=== PATIENT | male | born 1960 | race Caucasian/White ===

== ENCOUNTER 2018-05-19 22:44 | Inpatient (IN) | payer MEDICARE, OTHER ==
--- NOTE | 2018-05-20 00:07 | EDM.PDOC ---
ED HPI GENERAL MEDICAL PROBLEM - General Chief Complaint: Skin Complaint Stated Complaint: PT HAS INFECTION ON RT LEG Time Seen by Provider: 05/20/18 00:07 Source of Information: Reports: Patient - History of Present Illness INITIAL COMMENTS - FREE TEXT/NARRATIVE: HISTORY AND PHYSICAL: History of present illness: []Patient with right lower extremity cellulitis history since again with right lower cellulitis and pain foot and calf involved patient has a history of diabetes recent admission and transfer to [facility] Intermittent fever no chills sweats no chest pain shortness breath headache dizziness palpitation no bowel or urine symptoms Review of systems: As per history of present illness and below otherwise all systems reviewed and negative. Past medical history: As per history of present illness and as reviewed below otherwise noncontributory. Surgical history: As per history of present illness and as reviewed below otherwise noncontributory. Social history: No reported history of drug or alcohol abuse. Family history: As per history of present illness and as reviewed below otherwise noncontributory. Physical exam: HEENT: Atraumatic, normocephalic, pupils reactive, negative for conjunctival pallor or scleral icterus, mucous membranes moist, throat clear, neck supple, nontender, trachea midline. Lungs: Clear to auscultation, breath sounds equal bilaterally, chest nontender. Heart: S1S2, regular, negative for clicks, rubs, or JVD. Abdomen: Soft, nondistended, nontender. Negative for masses or hepatosplenomegaly. Negative for costovertebral tenderness. Pelvis: Stable nontender. Genitourinary: Deferred. Rectal: Deferred. Extremities: Atraumatic, negative for cords or calf pain. Neurovascular unremarkable. Right foot toe amputations noted, redness of the foot along with tenderness no fluctuance or exudate for culture standing up to mid tibia Neuro: Awake, alert, oriented. Cranial nerves II through XII unremarkable. Cerebellum unremarkable. Motor and sensory unremarkable throughout. Exam nonfocal. Diagnostics: []CBC CMP UA blood cultures 2 Therapeutics: []Normal saline Vancomycin 1 g IV Clindamycin 300 mg IV Impression: [] right lower extremity cellulitis chroonic history of baseline Definitive disposition and diagnosis as appropriate pending reevaluation and review of above. Right Feet Pain Score (Numeric/FACES): 9 - Related Data Allergies Allergy/AdvReac Type Severity Reaction Status Date / Time itraconazole [From Sporanox] Allergy Unknown Confusion Verified 05/19/18 23:21 levofloxacin [From Levaquin] Allergy Unknown Other Verified 05/19/18 23:21 Home Meds: Home Meds Finasteride 1 tab PO DAILY 01/11/16 [History] Fluticasone/Vilanterol [Breo Ellipta 200-25 Mcg INH] 1 inh INH DAILY 01/11/16 [ History] Gabapentin [Neurontin] 2 tab PO BID 01/11/16 [History] Testosterone [Androgel] 2 pump TOP DAILY 01/11/16 [History] predniSONE [Prednisone] 20 mg PO DAILY 01/11/16 [History] Hydrochlorothiazide 25 mg PO DAILY 01/12/16 [History] Tiotropium [place] [Spiriva Respimat] 2 puff INH BID 01/12/16 [History] Clindamycin HCl [Cleocin HCl] 150 mg PO Q6HR #132 capsule 01/15/16 [Rx] Morphine 15 mg PO Q6H PRN #10 tablet 01/15/16 [Rx] Albuterol Sulfate 2.5 mg IH DAILY 05/19/18 [History] Apixaban [Eliquis] 5 mg PO BID 05/19/18 [History] Diltiazem HCl [Diltiazem 24Hr ER] 240 mg PO DAILY 05/19/18 [History] Icosapent Ethyl [Vascepa] 1 gm PO DAILY 05/19/18 [History] Pantoprazole [ProTONIX] 40 mg PO DAILY 05/19/18 [History] Past Medical History HEENT History: Reports: Cataract Other HEENT History: dental fillings due to caries; recent tooth fracture Cardiovascular History: Reports: Afib, Cardiomyopathy, Heart Failure, Hypertension, DE Respiratory History: Reports: Asthma, Bronchitis, Recurrent, PE, Pneumonia, Recurrent, Other (See Below) Other Respiratory History: Chronic pulmonary aspergillosis, 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 bilateral achilles tendon ruptures and repair. 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 No explantation- -they apparently just treated him with IV abx for months. - Past Surgical History HEENT Surgical History: Reports: Cataract Surgery Respiratory Surgical History: Reports: Lung Resection Musculoskeletal Surgical History: Reports: Shoulder Surgery, Other (See Below) Other Musculoskeletal Surgeries/Procedures:: L shoulder Social & Family History - Family History Family Medical History: Noncontributory - Tobacco Use Smoking Status *Q: Never Smoker - Caffeine Use Caffeine Use: Reports: Coffee - Recreational Drug Use Recreational Drug Use: No - Living Situation & Occupation Living situation: Reports: Single Occupation: Disabled ED ROS GENERAL - Review of Systems Review Of Systems: See Below ED EXAM, SKIN/RASH Exam: See Below Course - Vital Signs Last Recorded V/S: Last Vital Signs Temp 99.8 F 05/19/18 23:17 Pulse 104 H 05/19/18 23:17 Resp 22 H 05/19/18 23:17 BP 139/76 05/19/18 23:17 Pulse Ox 97 05/19/18 23:17 - Orders/Labs/Meds Orders: Active Orders 24 hr Category Date Time Status Chest 1V Frontal [CR] Stat Exams 05/20/18 00:50 Taken CULTURE BLOOD [BC] Stat Lab 05/20/18 00:25 Results CULTURE BLOOD [BC] Stat Lab 05/20/18 00:35 Received Sodium Chloride 0.9% [Normal Saline] 1,000 ml Med 05/20/18 01:30 Ordered IV STAT Blood Culture x2 Reflex Set [OM.PC] Stat Oth 05/20/18 00:06 Ordered Medication Orders Sodium Chloride (Normal Saline) 1,000 mls @ 125 mls/hr IV STAT DANIELITO Labs: Laboratory Tests 05/20/18 05/20/18 05/20/18 Range/Units 00:05 00:35 00:35 WBC 18.06 H (4.0-11.0) K/uL RBC 3.96 L (4.50-5.90) M/uL Hgb 10.9 L (13.0-17.0) g/dL Hct 37.0 L (38.0-50.0) % MCV 93.4 (80.0-98.0) fL MCH 27.5 (27.0-32.0) pg MCHC 29.5 L (31.0-37.0) g/dL RDW Std Deviation 55.6 (28.0-62.0) fl RDW Coeff of Tre 17 H (11.0-15.0) % Plt Count 284 (150-400) K/uL MPV 9.70 (7.40-12.00) fL Add Manual Diff YES Neutrophils % (Manual) 89 H (48.0-80.0) % Band Neutrophils % 1 % Lymphocytes % (Manual) 6 L (16.0-40.0) % Monocytes % (Manual) 4 (0.0-15.0) % Absolute Seg Neuts 16.1 H (1.4-5.7) Band Neutrophils # 0.2 Lymphocytes # (Manual) 1.1 (0.6-2.4) Monocytes # (Manual) 0.7 (0.0-0.8) Sodium 136 (136-148) mmol/L Potassium 4.7 (3.5-5.1) mmol/L Chloride 97 L (98-107) mmol/L Carbon Dioxide 29.3 (21.0-32.0) mmol/L BUN 30 H (7.0-18.0) mg/dL Creatinine 1.7 H (0.8-1.3) mg/dL Est Cr Clr Drug Dosing 39.66 mL/min Estimated GFR (MDRD) 41.6 ml/min Glucose 93 (74-106) mg/dL Calcium 9.3 (8.5-10.1) mg/dL Total Bilirubin 0.6 (0.2-1.0) mg/dL AST 19 (15-37) IU/L ALT 56 (14-63) IU/L Alkaline Phosphatase 62 (46-116) U/L Total Protein 7.5 (6.4-8.2) g/dL Albumin 2.7 L (3.4-5.0) g/dL Globulin 4.8 H (2.6-4.0) g/dL Albumin/Globulin Ratio 0.6 L (0.9-1.6) Urine Color YELLOW Urine Appearance CLEAR Urine pH 8.5 H (5.0-8.0) Ur Specific [place] 1.010 (1.001-1.035) Urine Protein 30 H (NEGATIVE) mg/dL Urine Glucose (UA) 100 H (NEGATIVE) mg/dL Urine Ketones NEGATIVE (NEGATIVE) mg/dL Urine Occult Blood NEGATIVE (NEGATIVE) Urine Nitrite NEGATIVE (NEGATIVE) Urine Bilirubin NEGATIVE (NEGATIVE) Urine Urobilinogen 2.0 H (<2.0) EU/dL Ur Leukocyte Esterase NEGATIVE (NEGATIVE) Urine RBC 0-2 (0-2/HPF) Urine WBC 0-2 (0-5/HPF) Ur Epithelial Cells RARE (NONE-FEW) Urine Bacteria FEW (NEGATIVE) Meds: Medications Generic Name Dose Route Start Last Admin Trade Name Freq PRN Reason Stop Dose Admin Sodium Chloride 1,000 mls @ 125 mls/hr 05/20/18 01:30 Normal Saline IV STAT DANIELITO Discontinued Medications Generic Name Dose Route Start Last Admin Trade Name Freq PRN Reason Stop Dose Admin Clindamycin Phosphate 300 mg/ 50 mls @ 150 mls/hr 05/20/18 00:09 05/20/18 00: 36 Premix IV 05/20/18 00:28 150 mls/hr ONETIME ONE Administration Vancomycin HCl 1 gm/ Sodium 250 mls @ 250 mls/hr 05/20/18 00:09 05/20/18 00: 59 Chloride IV 05/20/18 01:08 250 mls/hr ONETIME ONE Administration Morphine Sulfate 2 mg 05/20/18 00:09 05/20/18 00:35 Morphine IVPUSH 05/20/18 00:10 2 mg ONETIME ONE Administration Departure - Departure Time of Disposition: 01:22 Disposition: Admitted As Inpatient 66 Condition: Fair Clinical Impression: Cellulitis - Discharge Information Referrals: Connor Melchor MD [Primary Care Provider] - Forms: ED Department Discharge - My Orders Last 24 Hours: My Active Orders 05/20/18 00:06 Blood Culture x2 Reflex Set [OM.PC] Stat 05/20/18 00:25 CULTURE BLOOD [BC] Stat 05/20/18 00:35 CULTURE BLOOD [BC] Stat 05/20/18 00:50 Chest 1V Frontal [CR] Stat 05/20/18 01:30 Sodium Chloride 0.9% [Normal Saline] 1,000 ml IV STAT - Assessment/Plan Last 24 Hours: My Active Orders 05/20/18 00:06 Blood Culture x2 Reflex Set [OM.PC] Stat 05/20/18 00:25 CULTURE BLOOD [BC] Stat 05/20/18 00:35 CULTURE BLOOD [BC] Stat 05/20/18 00:50 Chest 1V Frontal [CR] Stat 05/20/18 01:30 Sodium Chloride 0.9% [Normal Saline] 1,000 ml IV STAT
[2018-05-20] MEDS ORDERED: Clindamycin Phosphate in D5W 300 MG in Premix Bag 1 BAG IV ONE ×2 (00:09)
[2018-05-20] MEDS ORDERED: Morphine 2 MG/ML Syringe IVPUSH ONE (00:09)
[2018-05-20] MEDS ORDERED: Sodium Chloride 0.9% 1,000 ML IV SCH (01:30)
[2018-05-20] MEDS ORDERED: Acetaminophen 500 MG Tab PO STA (01:48)
[2018-05-20] MEDS ORDERED: Acetaminophen 325 MG Tab PO ONE (01:49)
[2018-05-20] MEDS ORDERED: Acetaminophen 325 MG Tab PO PRN (02:37)
[2018-05-20] MEDS: Sodium Chloride 0.9% 1,000 ML IV SCH ×2 (03:03→22:40)
[2018-05-20] MEDS: oxyCODONE 5 MG Tab PO PRN ×3 (03:04→16:13)
[2018-05-20] MEDS: Morphine 2 MG/ML Syringe IVPUSH PRN ×3 (03:05→17:41)
[2018-05-20] MEDS ORDERED: Insulin Aspart 100 Units/ML 3 ML Pen SUBCUT SCH (07:30)
--- NOTE | 2018-05-20 07:51 | PCM.HP ---
H&P History of Present Illness - General Date of Service: 05/20/18 Admit Problem/Dx: Admission Diagnosis/Problem Admission Diagnosis/Problem Cellulitis Source of Information: Patient History Limitations: Reports: No Limitations - History of Present Illness Initial Comments - Free Text/Narative: The patient is a 58-year-old gentleman who had presented to the emergency department early this morning secondary to pain and increased swelling of his right foot due to infection. The patient had an evaluation by his primary care physician had been placed on clindamycin and started taking this yesterday. The patient is a medically complex individual who has been taking steroids for at least 40 years secondary to aspergillosis. The patient also has a history of partial pneumonectomy. The patient says that he has had several toes on his right foot amputated secondary to infection and ischemia. He has an appointment with podiatry next week. The patient has denied any fever or chills. The patient has said that he thinks the infection is secondary to chemicals he has been exposed to while working. He has no other complaints at the present time. Onset of Symptoms: Reports: Gradual Duration of Symptoms: Reports: Day(s):, Getting Worse Location: Reports: Lower Extremity, Right Quality: Reports: Stabbing, Throbbing Improves with: Reports: Rest Worsens with: Reports: Movement Associated Symptoms: Reports: No Other Symptoms Right Feet Pain Score (Numeric/FACES): 8 Right Foot Pain Score (Numeric/FACES): 6 - Related Data Allergies/Adverse Reactions: Allergies Allergy/AdvReac Type Severity Reaction Status Date / Time itraconazole [From Sporanox] Allergy Unknown Confusion Verified 05/19/18 23:21 levofloxacin [From Levaquin] Allergy Unknown Other Verified 05/19/18 23:21 Home Medications: Home Meds Finasteride 5 mg PO DAILY 01/11/16 [History] Fluticasone/Vilanterol [Breo Ellipta 200-25 Mcg INH] 1 inh INH DAILY 01/11/16 [ History] Gabapentin [Neurontin] 1,600 mg PO BID 01/11/16 [History] Testosterone [Androgel] 4 pump TOP DAILY 01/11/16 [History] predniSONE [Prednisone] 20 mg PO DAILY 01/11/16 [History] Tiotropium Russell [Spiriva Respimat] 2 puff INH BID 01/12/16 [History] Morphine 15 mg PO Q6H PRN #10 tablet 01/15/16 [Rx] Albuterol Sulfate 2.5 mg IH DAILY 05/19/18 [History] Apixaban [Eliquis] 5 mg PO BID 05/19/18 [History] Diltiazem HCl [Diltiazem 24Hr ER] 240 mg PO DAILY 05/19/18 [History] Icosapent Ethyl [Vascepa] 1 gm PO DAILY 05/19/18 [History] Pantoprazole [ProTONIX] 40 mg PO DAILY 05/19/18 [History] Clindamycin HCl 300 mg PO Q8H 05/20/18 [History] Metoprolol Tartrate 50 mg PO BID 05/20/18 [History] Midodrine 2.5 mg PO BID 05/20/18 [History] traZODone HCl [Trazodone HCl] 50 mg PO BEDTIME 05/20/18 [History] Past Medical History HEENT History: Reports: Cataract Other HEENT History: dental fillings due to caries; recent tooth fracture Cardiovascular History: Reports: Afib, Cardiomyopathy, Heart Failure, Hypertension, MT Respiratory History: Reports: Asthma, Bronchitis, Recurrent, PE, Pneumonia, Recurrent, Other (See Below) Other Respiratory History: Chronic pulmonary aspergillosis, 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 bilateral achilles tendon ruptures and repair. 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 No explantation- -they apparently just treated him with IV abx for months. - Past Surgical History HEENT Surgical History: Reports: Cataract Surgery Respiratory Surgical History: Reports: Lung Resection Other Respiratory Surgeries/Procedures: intubated last Feb 2018 and transfered to [place] Musculoskeletal Surgical History: Reports: Shoulder Surgery, Other (See Below) ( Right toe amputation) Other Musculoskeletal Surgeries/Procedures:: L shoulder and left hip surgery Social & Family History - Family History Family Medical History: Noncontributory - Tobacco Use Smoking Status *Q: Never Smoker Second Hand Smoke Exposure: No - Caffeine Use Caffeine Use: Reports: Coffee - Alcohol Use Date of Last Drink: 05/04/18 - Recreational Drug Use Recreational Drug Use: No - Living Situation & Occupation Living situation: Reports: Single Occupation: Disabled H&P Review of Systems - Review of Systems: Review Of Systems: See Below General: Reports: No Symptoms HEENT: Reports: No Symptoms Pulmonary: Reports: No Symptoms Cardiovascular: Reports: No Symptoms Gastrointestinal: Reports: No Symptoms Genitourinary: Reports: No Symptoms Musculoskeletal: Reports: Foot Pain Skin: Reports: Erythema Psychiatric: Reports: No Symptoms Neurological: Reports: No Symptoms Hematologic/Lymphatic: Reports: No Symptoms Immunologic: Reports: No Symptoms Exam - Exam Exam: See Below - Vital Signs Vital Signs: Last Vital Signs Temp 36.6 C 05/20/18 04:50 Pulse 93 05/20/18 04:50 Resp 20 05/20/18 04:50 BP 90/50 L 05/20/18 04:50 Pulse Ox 97 05/20/18 04:50 Weight: 68.1 kg - Exam Quality Assessment: No: Supplemental Oxygen General: Alert (Appears older than stated age), Oriented, Cooperative, Mild Distress HEENT: Conjunctiva Clear, EACs Clear, Hearing Intact, Nares Patent, Normal Nasal Septum, PERRLA. No: Mucosa Moist & [place] (dry) Neck: Supple, Trachea Midline Lungs: Clear to Auscultation, Normal Respiratory Effort Cardiovascular: Regular Rate, Regular Rhythm GI/Abdominal Exam: Normal Bowel Sounds, Soft, Non-Tender, No Distention, No Mass (Male) Exam: Deferred Rectal (Males) Exam: Deferred Back Exam: Normal Inspection, Full Range of Motion Extremities: No Pedal Edema. No: Normal Inspection (Missing first and second toe right foot) Skin: Warm, Dry, Other (Cellulitis right foot ) Neurological: Cranial Nerves Intact Neuro Extensive - Mental Status: Alert Psychiatric: Alert, Normal Affect, Normal Mood - Patient Data Lab Results Last 24 hrs: Laboratory Results - last 24 hr 05/20/18 05/20/18 05/20/18 Range/Units 00:05 00:35 00:35 WBC 18.06 H (4.0-11.0) K/uL RBC 3.96 L (4.50-5.90) M/uL Hgb 10.9 L (13.0-17.0) g/dL Hct 37.0 L (38.0-50.0) % MCV 93.4 (80.0-98.0) fL MCH 27.5 (27.0-32.0) pg MCHC 29.5 L (31.0-37.0) g/dL RDW Std Deviation 55.6 (28.0-62.0) fl RDW Coeff of Tre 17 H (11.0-15.0) % Plt Count 284 (150-400) K/uL MPV 9.70 (7.40-12.00) fL Add Manual Diff YES Neutrophils % (Manual) 89 H (48.0-80.0) % Band Neutrophils % 1 % Lymphocytes % (Manual) 6 L (16.0-40.0) % Monocytes % (Manual) 4 (0.0-15.0) % Eosinophils % (Manual) (0.0-7.0) % Nucleated RBC % /100WBC Absolute Seg Neuts 16.1 H (1.4-5.7) Band Neutrophils # 0.2 Lymphocytes # (Manual) 1.1 (0.6-2.4) Monocytes # (Manual) 0.7 (0.0-0.8) Eosinophils # (Manual) (0.0-0.7) Nucleated RBCs # K/uL Sodium 136 (136-148) mmol/L Potassium 4.7 (3.5-5.1) mmol/L Chloride 97 L (98-107) mmol/L Carbon Dioxide 29.3 (21.0-32.0) mmol/L BUN 30 H (7.0-18.0) mg/dL Creatinine 1.7 H (0.8-1.3) mg/dL Est Cr Clr Drug Dosing 39.66 mL/min Estimated GFR (MDRD) 41.6 ml/min Glucose 93 (74-106) mg/dL Calcium 9.3 (8.5-10.1) mg/dL Total Bilirubin 0.6 (0.2-1.0) mg/dL AST 19 (15-37) IU/L ALT 56 (14-63) IU/L Alkaline Phosphatase 62 (46-116) U/L C-Reactive Protein (0.00-0.90) mg/dL Total Protein 7.5 (6.4-8.2) g/dL Albumin 2.7 L (3.4-5.0) g/dL Globulin 4.8 H (2.6-4.0) g/dL Albumin/Globulin Ratio 0.6 L (0.9-1.6) Urine Color YELLOW Urine Appearance CLEAR Urine pH 8.5 H (5.0-8.0) Ur Specific [place] 1.010 (1.001-1.035) Urine Protein 30 H (NEGATIVE) mg/dL Urine Glucose (UA) 100 H (NEGATIVE) mg/dL Urine Ketones NEGATIVE (NEGATIVE) mg/dL Urine Occult Blood NEGATIVE (NEGATIVE) Urine Nitrite NEGATIVE (NEGATIVE) Urine Bilirubin NEGATIVE (NEGATIVE) Urine Urobilinogen 2.0 H (<2.0) EU/dL Ur Leukocyte Esterase NEGATIVE (NEGATIVE) Urine RBC 0-2 (0-2/HPF) Urine WBC 0-2 (0-5/HPF) Ur Epithelial Cells RARE (NONE-FEW) Urine Bacteria FEW (NEGATIVE) 05/20/18 05/20/18 Range/Units 06:25 06:25 WBC 16.94 H (4.0-11.0) K/uL RBC 3.46 L (4.50-5.90) M/uL Hgb 9.3 L (13.0-17.0) g/dL Hct 31.1 L (38.0-50.0) % MCV 89.9 (80.0-98.0) fL MCH 26.9 L (27.0-32.0) pg MCHC 29.9 L (31.0-37.0) g/dL RDW Std Deviation 55.3 (28.0-62.0) fl RDW Coeff of Tre 17 H (11.0-15.0) % Plt Count 188 (150-400) K/uL MPV 9.60 (7.40-12.00) fL Add Manual Diff YES Neutrophils % (Manual) 77 (48.0-80.0) % Band Neutrophils % 5 % Lymphocytes % (Manual) 10 L (16.0-40.0) % Monocytes % (Manual) 7 (0.0-15.0) % Eosinophils % (Manual) 1 (0.0-7.0) % Nucleated RBC % 0.0 /100WBC Absolute Seg Neuts 13.0 H (1.4-5.7) Band Neutrophils # 0.8 Lymphocytes # (Manual) 1.7 (0.6-2.4) Monocytes # (Manual) 1.2 H (0.0-0.8) Eosinophils # (Manual) 0.2 (0.0-0.7) Nucleated RBCs # 0 K/uL Sodium 137 (136-148) mmol/L Potassium 3.8 (3.5-5.1) mmol/L Chloride 101 (98-107) mmol/L Carbon Dioxide 30.4 (21.0-32.0) mmol/L BUN 29 H (7.0-18.0) mg/dL Creatinine 1.7 H (0.8-1.3) mg/dL Est Cr Clr Drug Dosing 39.66 mL/min Estimated GFR (MDRD) 41.6 ml/min Glucose 98 (74-106) mg/dL Calcium 8.2 L (8.5-10.1) mg/dL Total Bilirubin 0.7 (0.2-1.0) mg/dL AST 21 (15-37) IU/L ALT 43 (14-63) IU/L Alkaline Phosphatase 48 (46-116) U/L C-Reactive Protein 55.50 H (0.00-0.90) mg/dL Total Protein 6.0 L (6.4-8.2) g/dL Albumin 2.1 L (3.4-5.0) g/dL Globulin 3.9 (2.6-4.0) g/dL Albumin/Globulin Ratio 0.5 L (0.9-1.6) Urine Color Urine Appearance Urine pH (5.0-8.0) Ur Specific [place] (1.001-1.035) Urine Protein (NEGATIVE) mg/dL Urine Glucose (UA) (NEGATIVE) mg/dL Urine Ketones (NEGATIVE) mg/dL Urine Occult Blood (NEGATIVE) Urine Nitrite (NEGATIVE) Urine Bilirubin (NEGATIVE) Urine Urobilinogen (<2.0) EU/dL Ur Leukocyte Esterase (NEGATIVE) Urine RBC (0-2/HPF) Urine WBC (0-5/HPF) Ur Epithelial Cells (NONE-FEW) Urine Bacteria (NEGATIVE) Result Diagrams: 05/20/18 06:25 05/20/18 06:25 Steve Results Last 24 hrs: Microbiology 05/20/18 00:25 Anaerobic Blood Culture - Final Blood - Venous - Problem List (1) Cellulitis and abscess of foot SNOMED Code(s): 420348310, 514913601 ICD Code: L03.119 - CELLULITIS OF UNSPECIFIED PART OF LIMB; L02.619 - CUTANEOUS ABSCESS OF UNSPECIFIED FOOT Status: Acute Priority: High Current Visit: Yes (2) Cardiomyopathy SNOMED Code(s): 00818378 ICD Code: I42.9 - CARDIOMYOPATHY, UNSPECIFIED Status: Chronic Priority: High Current Visit: Yes Qualifiers: Cardiomyopathy type: unspecified Qualified Code(s): I42.9 - Cardiomyopathy , unspecified (3) CKD (chronic kidney disease) SNOMED Code(s): 176743523 ICD Code: N18.9 - CHRONIC KIDNEY DISEASE, UNSPECIFIED Status: Chronic Priority: High Current Visit: Yes Qualifiers: Chronic kidney disease stage: stage 3 (moderate) Qualified Code(s): N18.3 - Chronic kidney disease, stage 3 (moderate) (4) Steroid-induced osteoporosis SNOMED Code(s): 234146094 ICD Code: T38.0X1A - POISONING BY GLUCOCORT/SYNTH ANALOG, ACCIDENTAL, INIT; M81.8 - OTHER OSTEOPOROSIS WITHOUT CURRENT PATHOLOGICAL FRACTURE Status: Chronic Priority: High Current Visit: Yes (5) History of aspergillosis SNOMED Code(s): 693551840 ICD Code: Z86.19 - PERSONAL HISTORY OF OTHER INFECTIOUS AND PARASITIC DISEASES Status: Chronic Priority: High Current Visit: Yes Problem List Initiated/Reviewed/Updated: Yes Orders Last 24hrs: Active Orders 24 hr Category Date Time Status Admission Status [Patient Status] [ADT] Stat ADT 05/20/18 01:23 Active [employer] Diet [DIET] Diet 05/20/18 Breakfast Active Chest 1V Frontal [CR] Stat Exams 05/20/18 00:50 Taken CULTURE BLOOD [BC] Stat Lab 05/20/18 00:25 Results CULTURE BLOOD [BC] Stat Lab 05/20/18 00:35 Received VANCOMYCIN TROUGH [CHEM] Timed Lab 05/22/18 05:30 Ordered Acetaminophen [Tylenol] Med 05/20/18 02:37 Active 650 mg PO Q6H PRN Insulin Aspart [NovoLOG] Med 05/20/18 07:30 Active See Protocol SUBCUT ACBED Morphine Med 05/20/18 02:37 Active 2 mg IVPUSH Q2H PRN Pharmacy to Dose - Vancomycin Med 05/20/18 02:45 Pending 1 dose .XX ASDIRECTED Sodium Chloride 0.9% [Normal Saline] 1,000 ml Med 05/20/18 02:45 Active IV ASDIRECTED Vancomycin [Vancocin] 1 gm Med 05/20/18 18:00 Active Sodium Chloride 0.9% [Normal Saline] 250 ml IV Q12H oxyCODONE Med 05/20/18 02:37 Active 5 mg PO Q4H PRN Blood Culture x2 Reflex Set [OM.PC] Stat Oth 05/20/18 00:06 Ordered Medication Orders Acetaminophen (Tylenol) 650 mg PO Q6H PRN PRN Reason: Pain Sodium Chloride (Normal Saline) 1,000 mls @ 50 mls/hr IV ASDIRECTED DANIELITO Last Admin: 05/20/18 03:03 Dose: 50 mls/hr Vancomycin HCl 1 gm/ Sodium (Chloride) 250 mls @ 166 mls/hr IV Q12H DANIELITO Insulin Aspart (Novolog) 0 unit SUBCUT ACBED DANIELITO; Protocol Morphine Sulfate (Morphine) 2 mg IVPUSH Q2H PRN PRN Reason: Pain (severe 7-10) Last Admin: 05/20/18 03:05 Dose: 2 mg Oxycodone HCl (Oxycodone) 5 mg PO Q4H PRN PRN Reason: Pain (moderate 4-6) Last Admin: 05/20/18 03:04 Dose: 5 mg Vancomycin HCl (Pharmacy To Dose - Vancomycin) 1 dose .XX ASDIRECTED [facility] Assessment/Plan Comment:: The patient is a medically complex 58-year-old gentleman who had been admitted to acute hospitalization secondary to cellulitis of his right foot. The area of infection has been demarcated and it appears to be improving. The patient will be continued on his renal dose of IV antibiotics consisting of clindamycin and vancomycin. The patient does have a history of chronic kidney disease and this apparently has been stable and therefore his medications will be renally dosed. The patient will also be kept on telemetry secondary to his history of cardiomyopathy. The patient has been taking steroids for a considerable time and his steroids can be likely contributing to his cardiomyopathy as well as the osteoporosis. The patient will need to have close follow-up with primary care physician for this. Patient should be appropriate for discharge in 1-2 days after IV antibiotics. We'll wait for resolution of the patient's leukocytosis as well.
[2018-05-20] MEDS ORDERED: Morphine 15 MG Tab PO PRN (08:05)
[2018-05-20] MEDS: Insulin Aspart 100 Units/ML 3 ML Pen SUBCUT SCH ×4 (08:56→21:20)
[2018-05-20] MEDS: Diltiazem 120 MG Cap.CD PO SCH (08:58)
[2018-05-20] MEDS ORDERED: Albuterol 0.083% 2.5 MG/3 ML Neb Soln INH SCH ×3 (09:00→21:00)
[2018-05-20] MEDS ORDERED: Hydrochlorothiazide 25 MG Tab PO SCH (09:00)
[2018-05-20] MEDS: Fish Oil/Omega-3 Fatty Acids 1 Gm Cap PO SCH (09:18)
[2018-05-20] MEDS: Pantoprazole 40 MG Tab.CR PO SCH (09:19)
[2018-05-20] MEDS: predniSONE 20 MG Tab PO SCH (09:19)
[2018-05-20] MEDS: Apixaban 5 MG Tab PO SCH ×2 (09:19→21:26)
[2018-05-20] MEDS: Finasteride 5 MG Tab PO SCH (09:19)
[2018-05-20] MEDS: Gabapentin 800 MG Tab PO SCH ×2 (09:34→21:25)
[2018-05-20] MEDS: SPIRIVA RESPIMAT INH SCH (12:00)
[2018-05-20] MEDS: VILANTEROL INH SCH (12:00)
[2018-05-20] MEDS: [UNRECOGNIZED DRUG - OTHER] INH SCH (12:00)
[2018-05-20] MEDS: Metoprolol Tartrate 50 MG Tab PO SCH ×2 (14:02→21:26)
[2018-05-20] MEDS: Midodrine 5 MG Tab PO SCH ×2 (14:03→21:19)
[2018-05-20] MEDS: Clindamycin Phosphate in D5W 300 MG in Premix Bag 1 BAG IV SCH ×4 (14:03→20:05)
[2018-05-20] MEDS: Albuterol 0.083% 2.5 MG/3 ML Neb Soln NEB SCH (21:08)
[2018-05-20] MEDS: traZODone 50 MG Tab PO SCH (21:26)
[2018-05-21] MEDS: oxyCODONE 5 MG Tab PO PRN ×4 (02:46→22:47)
[2018-05-21] MEDS: Morphine 2 MG/ML Syringe IVPUSH PRN ×7 (02:47→22:48)
[2018-05-21] MEDS: Clindamycin Phosphate in D5W 300 MG in Premix Bag 1 BAG IV SCH ×6 (04:17→20:46)
[2018-05-21 08:18] LABS: CHLORIDE,CL 107 mmol/L (98-107); SODIUM,NA 143 mmol/L (136-148)
[2018-05-21] MEDS: Pantoprazole 40 MG Tab.CR PO SCH (08:47)
[2018-05-21] MEDS: Fish Oil/Omega-3 Fatty Acids 1 Gm Cap PO SCH (08:47)
[2018-05-21] MEDS: predniSONE 20 MG Tab PO SCH (08:48)
[2018-05-21] MEDS: Finasteride 5 MG Tab PO SCH (08:48)
[2018-05-21] MEDS: Diltiazem 120 MG Cap.CD PO SCH (08:48)
[2018-05-21] MEDS: Gabapentin 800 MG Tab PO SCH ×2 (08:48→20:40)
[2018-05-21] MEDS: Metoprolol Tartrate 50 MG Tab PO SCH ×2 (08:48→20:40)
[2018-05-21] MEDS: Apixaban 5 MG Tab PO SCH ×2 (08:48→20:41)
[2018-05-21] MEDS: [UNRECOGNIZED DRUG - OTHER] INH SCH (08:49)
[2018-05-21] MEDS: VILANTEROL INH SCH (08:49)
[2018-05-21] MEDS: SPIRIVA RESPIMAT INH SCH (08:49)
[2018-05-21] MEDS: Albuterol 0.083% 2.5 MG/3 ML Neb Soln NEB SCH ×2 (08:55→13:32)
[2018-05-21] MEDS: Insulin Aspart 100 Units/ML 3 ML Pen SUBCUT SCH ×4 (09:05→20:47)
[2018-05-21] MEDS: Midodrine 5 MG Tab PO SCH ×3 (09:16→15:05)
[2018-05-21 10:22] LABS: HEMOGLOBIN A1C 6.8 % (4.5-6.2)
--- NOTE | 2018-05-21 11:34 | PCM.PN ---
<To Ordonez - Last Filed: 05/21/18 11:43> - General Info Date of Service: 05/21/18 Subjective Update: No acute events overnight. Afebrile. Tolerating PO intake. Pain under control. Denies chest pain, dyspnea, abdominal pain. - Patient Data Vitals - Most Recent: Last Vital Signs Temp 36.8 C 05/21/18 11:10 Pulse 89 05/21/18 11:10 Resp 20 05/21/18 11:10 BP 94/61 05/21/18 11:10 Pulse Ox 92 L 05/21/18 11:10 Weight - Most Recent: 68.2 kg I&O - Last 24 Hours: Intake & Output 05/20/18 05/21/18 05/21/18 22:59 06:59 14:59 Intake Total 1180 1644 Output Total 510 750 Balance 670 894 Lab Results Last 24 Hours: Laboratory Results - last 24 hr 05/20/18 05/20/18 05/20/18 Range/Units 14:02 17:30 21:10 WBC (4.0-11.0) K/uL RBC (4.50-5.90) M/uL Hgb (13.0-17.0) g/dL Hct (38.0-50.0) % MCV (80.0-98.0) fL MCH (27.0-32.0) pg MCHC (31.0-37.0) g/dL RDW Std Deviation (28.0-62.0) fl RDW Coeff of Tre (11.0-15.0) % Plt Count (150-400) K/uL MPV (7.40-12.00) fL Neut % (Auto) (48.0-80.0) % Lymph % (Auto) (16.0-40.0) % Frio % (Auto) (0.0-15.0) % Eos % (Auto) (0.0-7.0) % Baso % (Auto) (0.0-1.5) % Neut # (Auto) (1.4-5.7) K/uL Lymph # (Auto) (0.6-2.4) K/uL Frio # (Auto) (0.0-0.8) K/uL Eos # (Auto) (0.0-0.7) K/uL Baso # (Auto) (0.0-0.1) K/uL Nucleated RBC % /100WBC Nucleated RBCs # K/uL Absolute Retic (20-80) K/uL Percent Retic (0.5-1.5) % Immature Retic Fraction % Sodium (136-148) mmol/L Potassium (3.5-5.1) mmol/L Chloride (98-107) mmol/L Carbon Dioxide (21.0-32.0) mmol/L BUN (7.0-18.0) mg/dL Creatinine (0.8-1.3) mg/dL Est Cr Clr Drug Dosing mL/min Estimated GFR (MDRD) ml/min Glucose (74-106) mg/dL POC Glucose 198 H 267 H 127 H (60-110) mg/dL Hemoglobin A1c (4.5-6.2) % Calcium (8.5-10.1) mg/dL Phosphorus (2.6-4.7) mg/dL Magnesium (1.8-2.4) mg/dL Iron (50-175) ug/dL TIBC (250-450) ug/dL % Saturation (20-55) % Ferritin (26-388) ng/mL Total Bilirubin (0.2-1.0) mg/dL AST (15-37) IU/L ALT (14-63) IU/L Alkaline Phosphatase (46-116) U/L Total Protein (6.4-8.2) g/dL Albumin (3.4-5.0) g/dL Globulin (2.6-4.0) g/dL Albumin/Globulin Ratio (0.9-1.6) 05/21/18 05/21/18 05/21/18 Range/Units 07:45 07:45 07:45 WBC (4.0-11.0) K/uL RBC 3.22 L (4.50-5.90) M/uL Hgb (13.0-17.0) g/dL Hct (38.0-50.0) % MCV (80.0-98.0) fL MCH (27.0-32.0) pg MCHC (31.0-37.0) g/dL RDW Std Deviation (28.0-62.0) fl RDW Coeff of Tre (11.0-15.0) % Plt Count (150-400) K/uL MPV (7.40-12.00) fL Neut % (Auto) (48.0-80.0) % Lymph % (Auto) (16.0-40.0) % Frio % (Auto) (0.0-15.0) % Eos % (Auto) (0.0-7.0) % Baso % (Auto) (0.0-1.5) % Neut # (Auto) (1.4-5.7) K/uL Lymph # (Auto) (0.6-2.4) K/uL Frio # (Auto) (0.0-0.8) K/uL Eos # (Auto) (0.0-0.7) K/uL Baso # (Auto) (0.0-0.1) K/uL Nucleated RBC % /100WBC Nucleated RBCs # K/uL Absolute Retic 67.30 (20-80) K/uL Percent Retic 2.1 H (0.5-1.5) % Immature Retic Fraction 17 % Sodium (136-148) mmol/L Potassium (3.5-5.1) mmol/L Chloride (98-107) mmol/L Carbon Dioxide (21.0-32.0) mmol/L BUN (7.0-18.0) mg/dL Creatinine (0.8-1.3) mg/dL Est Cr Clr Drug Dosing mL/min Estimated GFR (MDRD) ml/min Glucose (74-106) mg/dL POC Glucose (60-110) mg/dL Hemoglobin A1c 6.8 H (4.5-6.2) % Calcium (8.5-10.1) mg/dL Phosphorus (2.6-4.7) mg/dL Magnesium (1.8-2.4) mg/dL Iron 12 L (50-175) ug/dL TIBC 240 L (250-450) ug/dL % Saturation 5.00 L (20-55) % Ferritin 161 (26-388) ng/mL Total Bilirubin (0.2-1.0) mg/dL AST (15-37) IU/L ALT (14-63) IU/L Alkaline Phosphatase (46-116) U/L Total Protein (6.4-8.2) g/dL Albumin (3.4-5.0) g/dL Globulin (2.6-4.0) g/dL Albumin/Globulin Ratio (0.9-1.6) 05/21/18 05/21/18 05/21/18 Range/Units 07:45 07:46 07:46 WBC 11.51 H (4.0-11.0) K/uL RBC 3.27 L (4.50-5.90) M/uL Hgb 8.7 L (13.0-17.0) g/dL Hct 29.4 L (38.0-50.0) % MCV 89.9 (80.0-98.0) fL MCH 26.6 L (27.0-32.0) pg MCHC 29.6 L (31.0-37.0) g/dL RDW Std Deviation 55.4 (28.0-62.0) fl RDW Coeff of Tre 17 H (11.0-15.0) % Plt Count 191 (150-400) K/uL MPV 8.80 (7.40-12.00) fL Neut % (Auto) 81.1 H (48.0-80.0) % Lymph % (Auto) 9.7 L (16.0-40.0) % Frio % (Auto) 8.3 (0.0-15.0) % Eos % (Auto) 0.8 (0.0-7.0) % Baso % (Auto) 0.1 (0.0-1.5) % Neut # (Auto) 9.3 H (1.4-5.7) K/uL Lymph # (Auto) 1.1 (0.6-2.4) K/uL Frio # (Auto) 1.0 H (0.0-0.8) K/uL Eos # (Auto) 0.1 (0.0-0.7) K/uL Baso # (Auto) 0.0 (0.0-0.1) K/uL Nucleated RBC % 0.0 /100WBC Nucleated RBCs # 0 K/uL Absolute Retic (20-80) K/uL Percent Retic (0.5-1.5) % Immature Retic Fraction % Sodium 143 (136-148) mmol/L Potassium 4.5 (3.5-5.1) mmol/L Chloride 107 (98-107) mmol/L Carbon Dioxide 31.4 (21.0-32.0) mmol/L BUN 21 H (7.0-18.0) mg/dL Creatinine 1.2 (0.8-1.3) mg/dL Est Cr Clr Drug Dosing 56.19 mL/min Estimated GFR (MDRD) > 60.0 ml/min Glucose 94 (74-106) mg/dL POC Glucose (60-110) mg/dL Hemoglobin A1c (4.5-6.2) % Calcium 8.3 L (8.5-10.1) mg/dL Phosphorus 3.2 (2.6-4.7) mg/dL Magnesium 1.8 (1.8-2.4) mg/dL Iron (50-175) ug/dL TIBC (250-450) ug/dL % Saturation (20-55) % Ferritin (26-388) ng/mL Total Bilirubin 0.4 (0.2-1.0) mg/dL AST 12 L (15-37) IU/L ALT 34 (14-63) IU/L Alkaline Phosphatase 56 (46-116) U/L Total Protein 5.8 L (6.4-8.2) g/dL Albumin 1.9 L (3.4-5.0) g/dL Globulin 3.9 (2.6-4.0) g/dL Albumin/Globulin Ratio 0.5 L (0.9-1.6) 05/21/18 Range/Units 08:57 WBC (4.0-11.0) K/uL RBC (4.50-5.90) M/uL Hgb (13.0-17.0) g/dL Hct (38.0-50.0) % MCV (80.0-98.0) fL MCH (27.0-32.0) pg MCHC (31.0-37.0) g/dL RDW Std Deviation (28.0-62.0) fl RDW Coeff of Tre (11.0-15.0) % Plt Count (150-400) K/uL MPV (7.40-12.00) fL Neut % (Auto) (48.0-80.0) % Lymph % (Auto) (16.0-40.0) % Frio % (Auto) (0.0-15.0) % Eos % (Auto) (0.0-7.0) % Baso % (Auto) (0.0-1.5) % Neut # (Auto) (1.4-5.7) K/uL Lymph # (Auto) (0.6-2.4) K/uL Frio # (Auto) (0.0-0.8) K/uL Eos # (Auto) (0.0-0.7) K/uL Baso # (Auto) (0.0-0.1) K/uL Nucleated RBC % /100WBC Nucleated RBCs # K/uL Absolute Retic (20-80) K/uL Percent Retic (0.5-1.5) % Immature Retic Fraction % Sodium (136-148) mmol/L Potassium (3.5-5.1) mmol/L Chloride (98-107) mmol/L Carbon Dioxide (21.0-32.0) mmol/L BUN (7.0-18.0) mg/dL Creatinine (0.8-1.3) mg/dL Est Cr Clr Drug Dosing mL/min Estimated GFR (MDRD) ml/min Glucose (74-106) mg/dL POC Glucose 86 (60-110) mg/dL Hemoglobin A1c (4.5-6.2) % Calcium (8.5-10.1) mg/dL Phosphorus (2.6-4.7) mg/dL Magnesium (1.8-2.4) mg/dL Iron (50-175) ug/dL TIBC (250-450) ug/dL % Saturation (20-55) % Ferritin (26-388) ng/mL Total Bilirubin (0.2-1.0) mg/dL AST (15-37) IU/L ALT (14-63) IU/L Alkaline Phosphatase (46-116) U/L Total Protein (6.4-8.2) g/dL Albumin (3.4-5.0) g/dL Globulin (2.6-4.0) g/dL Albumin/Globulin Ratio (0.9-1.6) Steve Results Last 24 Hours: Microbiology 05/20/18 00:25 Aerobic Blood Culture - Preliminary Blood - Venous NO GROWTH AFTER 1 DAY Anaerobic Blood Culture - Final 05/20/18 00:35 Aerobic Blood Culture - Preliminary Blood - Venous - Lab Draw NO GROWTH AFTER 1 DAY Anaerobic Blood Culture - Preliminary NO GROWTH AFTER 1 DAY Med Orders - Current: Current Medications Acetaminophen (Tylenol) 650 mg PO Q6H PRN PRN Reason: Pain Albuterol (Proventil Neb Soln) 2.5 mg NEB TIDRT [facility] Last Admin: 05/21/18 08:55 Dose: Not Given Apixaban (Eliquis) 5 mg PO BID [facility] Last Admin: 05/21/18 08:48 Dose: 5 mg Diltiazem HCl (Cardizem Cd) 240 mg PO DAILY [facility] Last Admin: 05/21/18 08:48 Dose: 240 mg Finasteride (Proscar) 5 mg PO DAILY [facility] Last Admin: 05/21/18 08:48 Dose: 5 mg Fish Oil (Fish Oil) 1 gm PO DAILY [facility] Last Admin: 05/21/18 08:47 Dose: 1 gm Gabapentin (Neurontin) 1,600 mg PO BID [facility] Last Admin: 05/21/18 08:48 Dose: 1,600 mg Sodium Chloride (Normal Saline) 1,000 mls @ 50 mls/hr IV ASDIRECTED [facility] Last Admin: 05/20/18 22:40 Dose: 50 mls/hr Vancomycin HCl 1 gm/ Sodium (Chloride) 250 mls @ 166 mls/hr IV Q12H [facility] Last Admin: 05/21/18 05:22 Dose: 166 mls/hr Clindamycin Phosphate 300 mg/ (Premix) 50 mls @ 150 mls/hr IV Q8H [facility] Last Admin: 05/21/18 04:17 Dose: 150 mls/hr Insulin Aspart (Novolog) 0 unit SUBCUT ACBED [facility]; Protocol Last Admin: 05/21/18 09:05 Dose: Not Given Metoprolol Tartrate (Lopressor) 50 mg PO BID [facility] Last Admin: 05/21/18 08:48 Dose: 50 mg Midodrine (Midodrine) 2.5 mg PO BID@08,14 [facility] Last Admin: 05/21/18 11:15 Dose: 2.5 mg Morphine Sulfate (Morphine) 2 mg IVPUSH Q2H PRN PRN Reason: Pain (severe 7-10) Last Admin: 05/21/18 11:02 Dose: 2 mg Morphine Sulfate (Morphine) 15 mg PO Q6H PRN PRN Reason: Pain Oxycodone HCl (Oxycodone) 5 mg PO Q4H PRN PRN Reason: Pain (moderate 4-6) Last Admin: 05/21/18 11:06 Dose: 5 mg Pantoprazole Sodium (Protonix) 40 mg PO ACBREAKFAST [facility] Last Admin: 05/21/18 08:47 Dose: 40 mg Breo Fluticasone/ (Vilanterol) 1 each INH DAILY [facility] Last Admin: 05/21/18 08:49 Dose: 1 each Spiriva Respimat 2 each INH DAILY [facility] Last Admin: 05/21/18 08:49 Dose: 2 each Prednisone (Prednisone) 20 mg PO DAILY [facility] Last Admin: 05/21/18 08:48 Dose: 20 mg Trazodone HCl (Trazodone) 50 mg PO BEDTIME [facility] Last Admin: 05/20/18 21:26 Dose: 50 mg Vancomycin HCl (Pharmacy To Dose - Vancomycin) 1 dose .XX ASDIRECTED [facility] Discontinued Medications Acetaminophen (Tylenol Extra Strength) 1,000 mg PO BEDTIME STA Stop: 05/20/18 01:49 Last Admin: 05/20/18 01:51 Dose: Not Given Acetaminophen (Tylenol) 650 mg PO NOW ONE Stop: 05/20/18 01:50 Last Admin: 05/20/18 01:53 Dose: 650 mg Albuterol (Proventil Neb Soln) 2.5 mg INH DAILY [facility] Last Admin: 05/20/18 09:57 Dose: 2.5 mg Albuterol (Proventil Neb Soln) 2.5 mg INH TID [facility] Last Admin: 05/20/18 14:10 Dose: 2.5 mg Albuterol (Proventil Neb Soln) 2.5 mg INH TIDRT [facility] Hydrochlorothiazide (Hydrochlorothiazide) 25 mg PO DAILY [facility] Last Admin: 05/20/18 09:26 Dose: Not Given Clindamycin Phosphate 300 mg/ (Premix) 50 mls @ 150 mls/hr IV ONETIME ONE Stop: 05/20/18 00:28 Last Admin: 05/20/18 00:36 Dose: 150 mls/hr Vancomycin HCl 1 gm/ Sodium (Chloride) 250 mls @ 250 mls/hr IV ONETIME ONE Stop: 05/20/18 01:08 Last Admin: 05/20/18 00:59 Dose: 250 mls/hr Sodium Chloride (Normal Saline) 1,000 mls @ 125 mls/hr IV STAT [facility] Last Admin: 05/20/18 01:43 Dose: 125 mls/hr Vancomycin HCl 1 gm/ Sodium (Chloride) 250 mls @ 166 mls/hr IV ONETIME ONE Stop: 05/20/18 04:30 Last Admin: 05/20/18 03:06 Dose: 166 mls/hr Insulin Aspart (Novolog) 0 unit SUBCUT ACBREAKFASTANDBED [facility]; Protocol Midodrine (Midodrine) 2.5 mg PO BID [facility] Last Admin: 05/21/18 09:16 Dose: Not Given Morphine Sulfate (Morphine) 2 mg IVPUSH ONETIME ONE Stop: 05/20/18 00:10 Last Admin: 05/20/18 00:35 Dose: 2 mg - Exam General: Alert, Oriented, Cooperative, No Acute Distress Lungs: Clear to Auscultation, Normal Respiratory Effort Cardiovascular: Regular Rate, Regular Rhythm GI/Abdominal Exam: Normal Bowel Sounds, Soft, Non-Tender, No Distention Extremities: Other (Right ankle cellulitis remains within drawn borders.) - Problem List Review Problem List Initiated/Reviewed/Updated: Yes - My Orders Last 24 Hours: My Active Orders 05/21/18 11:30 Fecal Occult Blood Collection [RC] ASDIRECTED - Plan Plan:: A: 1. Right foot cellulitis 2. Iron deficiency anemia 3. Acute on chronic kidney disease 4. Diabetes mellitus type 2 P: 1. Right foot cellulitis, improving. Continue with vancomycin. Will transition to PO tomorrow. 2. Iron deficiency anemia. Likely his CKD is contributing to his anemia. Will start Iron supplementation. Ordered Fecal occult test. 3. Acute on chronic kidney disease, improving. Continue to monitor. 4. Diabetes mellitus type 2. Will need outpatient follow-up. Possibly start metformin pending how his kidney function is doing. Dispo: 1-2 days. <Claudy Bo - Last Filed: 05/21/18 13:42> - General Info Admission Dx/Problem (Free Text): I have seen and examined patient independently of ophthalmic medical technologist. I have discussed the case with with the resident. I agree with the assessment and plan of care with this patient. Please discharge order. - Patient Data Vitals - Most Recent: Last Vital Signs Temp 36.8 C 05/21/18 11:10 Pulse 89 05/21/18 11:10 Resp 20 05/21/18 11:10 BP 94/61 05/21/18 11:10 Pulse Ox 92 L 05/21/18 11:10 I&O - Last 24 Hours: Intake & Output 05/20/18 05/21/18 05/21/18 22:59 06:59 14:59 Intake Total 1180 1644 Output Total 510 750 Balance 670 894 Lab Results Last 24 Hours: Laboratory Results - last 24 hr 05/20/18 05/20/18 05/20/18 Range/Units 14:02 17:30 21:10 WBC (4.0-11.0) K/uL RBC (4.50-5.90) M/uL Hgb (13.0-17.0) g/dL Hct (38.0-50.0) % MCV (80.0-98.0) fL MCH (27.0-32.0) pg MCHC (31.0-37.0) g/dL RDW Std Deviation (28.0-62.0) fl RDW Coeff of Tre (11.0-15.0) % Plt Count (150-400) K/uL MPV (7.40-12.00) fL Neut % (Auto) (48.0-80.0) % Lymph % (Auto) (16.0-40.0) % Frio % (Auto) (0.0-15.0) % Eos % (Auto) (0.0-7.0) % Baso % (Auto) (0.0-1.5) % Neut # (Auto) (1.4-5.7) K/uL Lymph # (Auto) (0.6-2.4) K/uL Frio # (Auto) (0.0-0.8) K/uL Eos # (Auto) (0.0-0.7) K/uL Baso # (Auto) (0.0-0.1) K/uL Nucleated RBC % /100WBC Nucleated RBCs # K/uL Absolute Retic (20-80) K/uL Percent Retic (0.5-1.5) % Immature Retic Fraction % Sodium (136-148) mmol/L Potassium (3.5-5.1) mmol/L Chloride (98-107) mmol/L Carbon Dioxide (21.0-32.0) mmol/L BUN (7.0-18.0) mg/dL Creatinine (0.8-1.3) mg/dL Est Cr Clr Drug Dosing mL/min Estimated GFR (MDRD) ml/min Glucose (74-106) mg/dL POC Glucose 198 H 267 H 127 H (60-110) mg/dL Hemoglobin A1c (4.5-6.2) % Calcium (8.5-10.1) mg/dL Phosphorus (2.6-4.7) mg/dL Magnesium (1.8-2.4) mg/dL Iron (50-175) ug/dL TIBC (250-450) ug/dL % Saturation (20-55) % Ferritin (26-388) ng/mL Total Bilirubin (0.2-1.0) mg/dL AST (15-37) IU/L ALT (14-63) IU/L Alkaline Phosphatase (46-116) U/L Total Protein (6.4-8.2) g/dL Albumin (3.4-5.0) g/dL Globulin (2.6-4.0) g/dL Albumin/Globulin Ratio (0.9-1.6) 05/21/18 05/21/18 05/21/18 Range/Units 07:45 07:45 07:45 WBC (4.0-11.0) K/uL RBC 3.22 L (4.50-5.90) M/uL Hgb (13.0-17.0) g/dL Hct (38.0-50.0) % MCV (80.0-98.0) fL MCH (27.0-32.0) pg MCHC (31.0-37.0) g/dL RDW Std Deviation (28.0-62.0) fl RDW Coeff of Tre (11.0-15.0) % Plt Count (150-400) K/uL MPV (7.40-12.00) fL Neut % (Auto) (48.0-80.0) % Lymph % (Auto) (16.0-40.0) % Frio % (Auto) (0.0-15.0) % Eos % (Auto) (0.0-7.0) % Baso % (Auto) (0.0-1.5) % Neut # (Auto) (1.4-5.7) K/uL Lymph # (Auto) (0.6-2.4) K/uL Frio # (Auto) (0.0-0.8) K/uL Eos # (Auto) (0.0-0.7) K/uL Baso # (Auto) (0.0-0.1) K/uL Nucleated RBC % /100WBC Nucleated RBCs # K/uL Absolute Retic 67.30 (20-80) K/uL Percent Retic 2.1 H (0.5-1.5) % Immature Retic Fraction 17 % Sodium (136-148) mmol/L Potassium (3.5-5.1) mmol/L Chloride (98-107) mmol/L Carbon Dioxide (21.0-32.0) mmol/L BUN (7.0-18.0) mg/dL Creatinine (0.8-1.3) mg/dL Est Cr Clr Drug Dosing mL/min Estimated GFR (MDRD) ml/min Glucose (74-106) mg/dL POC Glucose (60-110) mg/dL Hemoglobin A1c 6.8 H (4.5-6.2) % Calcium (8.5-10.1) mg/dL Phosphorus (2.6-4.7) mg/dL Magnesium (1.8-2.4) mg/dL Iron 12 L (50-175) ug/dL TIBC 240 L (250-450) ug/dL % Saturation 5.00 L (20-55) % Ferritin 161 (26-388) ng/mL Total Bilirubin (0.2-1.0) mg/dL AST (15-37) IU/L ALT (14-63) IU/L Alkaline Phosphatase (46-116) U/L Total Protein (6.4-8.2) g/dL Albumin (3.4-5.0) g/dL Globulin (2.6-4.0) g/dL Albumin/Globulin Ratio (0.9-1.6) 05/21/18 05/21/18 05/21/18 Range/Units 07:45 07:46 07:46 WBC 11.51 H (4.0-11.0) K/uL RBC 3.27 L (4.50-5.90) M/uL Hgb 8.7 L (13.0-17.0) g/dL Hct 29.4 L (38.0-50.0) % MCV 89.9 (80.0-98.0) fL MCH 26.6 L (27.0-32.0) pg MCHC 29.6 L (31.0-37.0) g/dL RDW Std Deviation 55.4 (28.0-62.0) fl RDW Coeff of Tre 17 H (11.0-15.0) % Plt Count 191 (150-400) K/uL MPV 8.80 (7.40-12.00) fL Neut % (Auto) 81.1 H (48.0-80.0) % Lymph % (Auto) 9.7 L (16.0-40.0) % Frio % (Auto) 8.3 (0.0-15.0) % Eos % (Auto) 0.8 (0.0-7.0) % Baso % (Auto) 0.1 (0.0-1.5) % Neut # (Auto) 9.3 H (1.4-5.7) K/uL Lymph # (Auto) 1.1 (0.6-2.4) K/uL Frio # (Auto) 1.0 H (0.0-0.8) K/uL Eos # (Auto) 0.1 (0.0-0.7) K/uL Baso # (Auto) 0.0 (0.0-0.1) K/uL Nucleated RBC % 0.0 /100WBC Nucleated RBCs # 0 K/uL Absolute Retic (20-80) K/uL Percent Retic (0.5-1.5) % Immature Retic Fraction % Sodium 143 (136-148) mmol/L Potassium 4.5 (3.5-5.1) mmol/L Chloride 107 (98-107) mmol/L Carbon Dioxide 31.4 (21.0-32.0) mmol/L BUN 21 H (7.0-18.0) mg/dL Creatinine 1.2 (0.8-1.3) mg/dL Est Cr Clr Drug Dosing 56.19 mL/min Estimated GFR (MDRD) > 60.0 ml/min Glucose 94 (74-106) mg/dL POC Glucose (60-110) mg/dL Hemoglobin A1c (4.5-6.2) % Calcium 8.3 L (8.5-10.1) mg/dL Phosphorus 3.2 (2.6-4.7) mg/dL Magnesium 1.8 (1.8-2.4) mg/dL Iron (50-175) ug/dL TIBC (250-450) ug/dL % Saturation (20-55) % Ferritin (26-388) ng/mL Total Bilirubin 0.4 (0.2-1.0) mg/dL AST 12 L (15-37) IU/L ALT 34 (14-63) IU/L Alkaline Phosphatase 56 (46-116) U/L Total Protein 5.8 L (6.4-8.2) g/dL Albumin 1.9 L (3.4-5.0) g/dL Globulin 3.9 (2.6-4.0) g/dL Albumin/Globulin Ratio 0.5 L (0.9-1.6) 05/21/18 05/21/18 Range/Units 08:57 12:06 WBC (4.0-11.0) K/uL RBC (4.50-5.90) M/uL Hgb (13.0-17.0) g/dL Hct (38.0-50.0) % MCV (80.0-98.0) fL MCH (27.0-32.0) pg MCHC (31.0-37.0) g/dL RDW Std Deviation (28.0-62.0) fl RDW Coeff of Tre (11.0-15.0) % Plt Count (150-400) K/uL MPV (7.40-12.00) fL Neut % (Auto) (48.0-80.0) % Lymph % (Auto) (16.0-40.0) % Frio % (Auto) (0.0-15.0) % Eos % (Auto) (0.0-7.0) % Baso % (Auto) (0.0-1.5) % Neut # (Auto) (1.4-5.7) K/uL Lymph # (Auto) (0.6-2.4) K/uL Frio # (Auto) (0.0-0.8) K/uL Eos # (Auto) (0.0-0.7) K/uL Baso # (Auto) (0.0-0.1) K/uL Nucleated RBC % /100WBC Nucleated RBCs # K/uL Absolute Retic (20-80) K/uL Percent Retic (0.5-1.5) % Immature Retic Fraction % Sodium (136-148) mmol/L Potassium (3.5-5.1) mmol/L Chloride (98-107) mmol/L Carbon Dioxide (21.0-32.0) mmol/L BUN (7.0-18.0) mg/dL Creatinine (0.8-1.3) mg/dL Est Cr Clr Drug Dosing mL/min Estimated GFR (MDRD) ml/min Glucose (74-106) mg/dL POC Glucose 86 200 H (60-110) mg/dL Hemoglobin A1c (4.5-6.2) % Calcium (8.5-10.1) mg/dL Phosphorus (2.6-4.7) mg/dL Magnesium (1.8-2.4) mg/dL Iron (50-175) ug/dL TIBC (250-450) ug/dL % Saturation (20-55) % Ferritin (26-388) ng/mL Total Bilirubin (0.2-1.0) mg/dL AST (15-37) IU/L ALT (14-63) IU/L Alkaline Phosphatase (46-116) U/L Total Protein (6.4-8.2) g/dL Albumin (3.4-5.0) g/dL Globulin (2.6-4.0) g/dL Albumin/Globulin Ratio (0.9-1.6) Steve Results Last 24 Hours: Microbiology 05/20/18 00:25 Aerobic Blood Culture - Preliminary Blood - Venous NO GROWTH AFTER 1 DAY Anaerobic Blood Culture - Final 05/20/18 00:35 Aerobic Blood Culture - Preliminary Blood - Venous - Lab Draw NO GROWTH AFTER 1 DAY Anaerobic Blood Culture - Preliminary NO GROWTH AFTER 1 DAY Med Orders - Current: Current Medications Acetaminophen (Tylenol) 650 mg PO Q6H PRN PRN Reason: Pain Albuterol (Proventil Neb Soln) 2.5 mg NEB TIDRT [facility] Last Admin: 05/21/18 13:32 Dose: 2.5 mg Apixaban (Eliquis) 5 mg PO BID [facility] Last Admin: 05/21/18 08:48 Dose: 5 mg Diltiazem HCl (Cardizem Cd) 240 mg PO DAILY [facility] Last Admin: 05/21/18 08:48 Dose: 240 mg Finasteride (Proscar) 5 mg PO DAILY [facility] Last Admin: 05/21/18 08:48 Dose: 5 mg Fish Oil (Fish Oil) 1 gm PO DAILY [facility] Last Admin: 05/21/18 08:47 Dose: 1 gm Gabapentin (Neurontin) 1,600 mg PO BID [facility] Last Admin: 05/21/18 08:48 Dose: 1,600 mg Sodium Chloride (Normal Saline) 1,000 mls @ 50 mls/hr IV ASDIRECTED [facility] Last Admin: 05/20/18 22:40 Dose: 50 mls/hr Vancomycin HCl 1 gm/ Sodium (Chloride) 250 mls @ 166 mls/hr IV Q12H [facility] Last Admin: 05/21/18 05:22 Dose: 166 mls/hr Clindamycin Phosphate 300 mg/ (Premix) 50 mls @ 150 mls/hr IV Q8H [facility] Last Admin: 05/21/18 12:52 Dose: 150 mls/hr Insulin Aspart (Novolog) 0 unit SUBCUT ACBED [facility]; Protocol Last Admin: 05/21/18 13:14 Dose: 2 unit Metoprolol Tartrate (Lopressor) 50 mg PO BID [facility] Last Admin: 05/21/18 08:48 Dose: 50 mg Midodrine (Midodrine) 2.5 mg PO BID@08,14 [facility] Last Admin: 05/21/18 11:15 Dose: 2.5 mg Morphine Sulfate (Morphine) 2 mg IVPUSH Q2H PRN PRN Reason: Pain (severe 7-10) Last Admin: 05/21/18 12:57 Dose: 2 mg Morphine Sulfate (Morphine) 15 mg PO Q6H PRN PRN Reason: Pain Oxycodone HCl (Oxycodone) 5 mg PO Q4H PRN PRN Reason: Pain (moderate 4-6) Last Admin: 05/21/18 11:06 Dose: 5 mg Pantoprazole Sodium (Protonix) 40 mg PO ACBREAKFAST [facility] Last Admin: 05/21/18 08:47 Dose: 40 mg Breo Fluticasone/ (Vilanterol) 1 each INH DAILY [facility] Last Admin: 05/21/18 08:49 Dose: 1 each Spiriva Respimat 2 each INH DAILY [facility] Last Admin: 05/21/18 08:49 Dose: 2 each Prednisone (Prednisone) 20 mg PO DAILY [facility] Last Admin: 05/21/18 08:48 Dose: 20 mg Trazodone HCl (Trazodone) 50 mg PO BEDTIME [facility] Last Admin: 05/20/18 21:26 Dose: 50 mg Vancomycin HCl (Pharmacy To Dose - Vancomycin) 1 dose .XX ASDIRECTED [facility] Discontinued Medications Acetaminophen (Tylenol Extra Strength) 1,000 mg PO BEDTIME STA Stop: 05/20/18 01:49 Last Admin: 05/20/18 01:51 Dose: Not Given Acetaminophen (Tylenol) 650 mg PO NOW ONE Stop: 05/20/18 01:50 Last Admin: 05/20/18 01:53 Dose: 650 mg Albuterol (Proventil Neb Soln) 2.5 mg INH DAILY [facility] Last Admin: 05/20/18 09:57 Dose: 2.5 mg Albuterol (Proventil Neb Soln) 2.5 mg INH TID [facility] Last Admin: 05/20/18 14:10 Dose: 2.5 mg Albuterol (Proventil Neb Soln) 2.5 mg INH TIDRT [facility] Hydrochlorothiazide (Hydrochlorothiazide) 25 mg PO DAILY [facility] Last Admin: 05/20/18 09:26 Dose: Not Given Clindamycin Phosphate 300 mg/ (Premix) 50 mls @ 150 mls/hr IV ONETIME ONE Stop: 05/20/18 00:28 Last Admin: 05/20/18 00:36 Dose: 150 mls/hr Vancomycin HCl 1 gm/ Sodium (Chloride) 250 mls @ 250 mls/hr IV ONETIME ONE Stop: 05/20/18 01:08 Last Admin: 05/20/18 00:59 Dose: 250 mls/hr Sodium Chloride (Normal Saline) 1,000 mls @ 125 mls/hr IV STAT [facility] Last Admin: 05/20/18 01:43 Dose: 125 mls/hr Vancomycin HCl 1 gm/ Sodium (Chloride) 250 mls @ 166 mls/hr IV ONETIME ONE Stop: 05/20/18 04:30 Last Admin: 05/20/18 03:06 Dose: 166 mls/hr Insulin Aspart (Novolog) 0 unit SUBCUT ACBREAKFASTANDBED [facility]; Protocol Midodrine (Midodrine) 2.5 mg PO BID [facility] Last Admin: 05/21/18 09:16 Dose: Not Given Morphine Sulfate (Morphine) 2 mg IVPUSH ONETIME ONE Stop: 05/20/18 00:10 Last Admin: 05/20/18 00:35 Dose: 2 mg - Problem List & Annotations (1) Cellulitis and abscess of foot SNOMED Code(s): 616705147, 604325798 Code(s): L03.119 - CELLULITIS OF UNSPECIFIED PART OF LIMB; L02.619 - CUTANEOUS ABSCESS OF UNSPECIFIED FOOT Status: Acute Priority: High Current Visit: Yes (2) Cardiomyopathy SNOMED Code(s): 76324652 Code(s): I42.9 - CARDIOMYOPATHY, UNSPECIFIED Status: Chronic Priority: High Current Visit: Yes Qualifiers: Cardiomyopathy type: unspecified Qualified Code(s): I42.9 - Cardiomyopathy , unspecified (3) CKD (chronic kidney disease) SNOMED Code(s): 051620772 Code(s): N18.9 - CHRONIC KIDNEY DISEASE, UNSPECIFIED Status: Chronic Priority: High Current Visit: Yes Qualifiers: Chronic kidney disease stage: stage 3 (moderate) Qualified Code(s): N18.3 - Chronic kidney disease, stage 3 (moderate) (4) Steroid-induced osteoporosis SNOMED Code(s): 731326647 Code(s): T38.0X1A - POISONING BY GLUCOCORT/SYNTH ANALOG, ACCIDENTAL, INIT; M81.8 - OTHER OSTEOPOROSIS WITHOUT CURRENT PATHOLOGICAL FRACTURE Status: Chronic Priority: High Current Visit: Yes (5) History of aspergillosis SNOMED Code(s): 871255328 Code(s): Z86.19 - PERSONAL HISTORY OF OTHER INFECTIOUS AND PARASITIC DISEASES Status: Chronic Priority: High Current Visit: Yes - My Orders Last 24 Hours: My Active Orders 05/20/18 12:45 Clindamycin Phosphate in D5W [Cleocin in D5W] 300 mg Premix Bag 1 bag IV Q8H Metoprolol Tartrate [Lopressor] 50 mg PO BID 05/20/18 12:47 Telemetry Monitoring [Cardiac Monitoring] [RC] . DIRECTED 05/20/18 18:00 Vancomycin [Vancocin] 1 gm Sodium Chloride 0.9% [Normal Saline] 250 ml IV Q12H 05/20/18 21:00 Albuterol [Proventil Neb Soln] 2.5 mg NEB TIDRT traZODone 50 mg PO BEDTIME 05/21/18 09:07 Resuscitation Status Routine 05/21/18 14:00 Midodrine 2.5 mg PO BID@08,14
[2018-05-21] MEDS ORDERED: Iron Sucrose Complex 100 MG in Sodium Chloride 0.9% 100 ML IV ONE (16:22)
[2018-05-21] MEDS: Sodium Chloride 0.9% 1,000 ML IV SCH (17:29)
[2018-05-21] MEDS: traZODone 50 MG Tab PO SCH (20:40)
[2018-05-22] MEDS: Albuterol 0.083% 2.5 MG/3 ML Neb Soln NEB SCH ×2 (02:43→06:03)
[2018-05-22] MEDS: Clindamycin Phosphate in D5W 300 MG in Premix Bag 1 BAG IV SCH ×2 (04:17)
[2018-05-22 06:34] LABS: CHLORIDE,CL 107 mmol/L (98-107); SODIUM,NA 143 mmol/L (136-148)
[2018-05-22] MEDS: Pantoprazole 40 MG Tab.CR PO SCH (07:39)
[2018-05-22] MEDS: Insulin Aspart 100 Units/ML 3 ML Pen SUBCUT SCH ×4 (07:44→20:49)
[2018-05-22] MEDS: Fish Oil/Omega-3 Fatty Acids 1 Gm Cap PO SCH (09:07)
[2018-05-22] MEDS: Diltiazem 120 MG Cap.CD PO SCH (09:07)
[2018-05-22] MEDS: Apixaban 5 MG Tab PO SCH ×2 (09:08→20:43)
[2018-05-22] MEDS: Finasteride 5 MG Tab PO SCH (09:08)
[2018-05-22] MEDS: Metoprolol Tartrate 50 MG Tab PO SCH ×2 (09:08→20:44)
[2018-05-22] MEDS: Gabapentin 800 MG Tab PO SCH ×2 (09:08→20:42)
[2018-05-22] MEDS: Iron Polysaccharides Complex 150 MG Cap PO SCH (09:09)
[2018-05-22] MEDS: Midodrine 5 MG Tab PO SCH ×2 (09:09→14:10)
[2018-05-22] MEDS: [UNRECOGNIZED DRUG - OTHER] INH SCH (09:29)
[2018-05-22] MEDS: VILANTEROL INH SCH (09:29)
[2018-05-22] MEDS: SPIRIVA RESPIMAT INH SCH (09:29)
[2018-05-22] MEDS: Clindamycin HCl 150 MG Cap PO SCH ×2 (09:29→17:28)
[2018-05-22] MEDS: predniSONE 20 MG Tab PO SCH (09:29)
--- NOTE | 2018-05-22 11:06 | PCM.PN ---
<To Ordonez - Last Filed: 05/22/18 11:08> - General Info Date of Service: 05/22/18 Subjective Update: No acute events overnight. Afebrile. Pain under control. Tolerating PO intake. No chest pain, dyspnea, abdominal pain. - Patient Data Vitals - Most Recent: Last Vital Signs Temp 36.6 C 05/22/18 08:01 Pulse 101 H 05/22/18 09:08 Resp 17 05/22/18 08:01 BP 122/65 05/22/18 09:08 Pulse Ox 92 L 05/22/18 08:01 Weight - Most Recent: 70 kg I&O - Last 24 Hours: Intake & Output 05/21/18 05/22/18 05/22/18 22:59 06:59 14:59 Intake Total 1938 1633 Output Total 1050 1025 Balance 888 608 Lab Results Last 24 Hours: Laboratory Results - last 24 hr 05/21/18 05/21/18 05/21/18 Range/Units 07:45 12:06 17:45 WBC (4.0-11.0) K/uL RBC (4.50-5.90) M/uL Hgb (13.0-17.0) g/dL Hct (38.0-50.0) % MCV (80.0-98.0) fL MCH (27.0-32.0) pg MCHC (31.0-37.0) g/dL RDW Std Deviation (28.0-62.0) fl RDW Coeff of Tre (11.0-15.0) % Plt Count (150-400) K/uL MPV (7.40-12.00) fL Neut % (Auto) (48.0-80.0) % Lymph % (Auto) (16.0-40.0) % [place] % (Auto) (0.0-15.0) % Eos % (Auto) (0.0-7.0) % Baso % (Auto) (0.0-1.5) % Neut # (Auto) (1.4-5.7) K/uL Lymph # (Auto) (0.6-2.4) K/uL [place] # (Auto) (0.0-0.8) K/uL Eos # (Auto) (0.0-0.7) K/uL Baso # (Auto) (0.0-0.1) K/uL Nucleated RBC % /100WBC Nucleated RBCs # K/uL Sodium (136-148) mmol/L Potassium (3.5-5.1) mmol/L Chloride (98-107) mmol/L Carbon Dioxide (21.0-32.0) mmol/L BUN (7.0-18.0) mg/dL Creatinine (0.8-1.3) mg/dL Est Cr Clr Drug Dosing mL/min Estimated GFR (MDRD) ml/min Glucose (74-106) mg/dL POC Glucose 200 H 194 H (60-110) mg/dL Calcium (8.5-10.1) mg/dL Phosphorus 3.2 (2.6-4.7) mg/dL Magnesium 1.8 (1.8-2.4) mg/dL Total Bilirubin (0.2-1.0) mg/dL AST (15-37) IU/L ALT (14-63) IU/L Alkaline Phosphatase (46-116) U/L Total Protein (6.4-8.2) g/dL Albumin (3.4-5.0) g/dL Globulin (2.6-4.0) g/dL Albumin/Globulin Ratio (0.9-1.6) Triglycerides (0-200) mg/dL Cholesterol (50-200) mg/dL LDL Cholesterol, Calc (60-180) mg/dL VLDL Cholesterol (5-55) mg/dL HDL Cholesterol (40-60) mg/dL Cholesterol/HDL Ratio (3.3-6.0) Vancomycin Trough (5.0-10.0) ug/mL 05/21/18 05/22/18 05/22/18 Range/Units 20:36 05:32 05:32 WBC 8.41 (4.0-11.0) K/uL RBC 3.06 L (4.50-5.90) M/uL Hgb 8.1 L (13.0-17.0) g/dL Hct 27.3 L (38.0-50.0) % MCV 89.2 (80.0-98.0) fL MCH 26.5 L (27.0-32.0) pg MCHC 29.7 L (31.0-37.0) g/dL RDW Std Deviation 55.7 (28.0-62.0) fl RDW Coeff of Tre 17 H (11.0-15.0) % Plt Count 206 (150-400) K/uL MPV 9.30 (7.40-12.00) fL Neut % (Auto) 73.8 (48.0-80.0) % Lymph % (Auto) 15.5 L (16.0-40.0) % [place] % (Auto) 9.3 (0.0-15.0) % Eos % (Auto) 1.2 (0.0-7.0) % Baso % (Auto) 0.2 (0.0-1.5) % Neut # (Auto) 6.2 H (1.4-5.7) K/uL Lymph # (Auto) 1.3 (0.6-2.4) K/uL [place] # (Auto) 0.8 (0.0-0.8) K/uL Eos # (Auto) 0.1 (0.0-0.7) K/uL Baso # (Auto) 0.0 (0.0-0.1) K/uL Nucleated RBC % 0.0 /100WBC Nucleated RBCs # 0 K/uL Sodium (136-148) mmol/L Potassium (3.5-5.1) mmol/L Chloride (98-107) mmol/L Carbon Dioxide (21.0-32.0) mmol/L BUN (7.0-18.0) mg/dL Creatinine (0.8-1.3) mg/dL Est Cr Clr Drug Dosing mL/min Estimated GFR (MDRD) ml/min Glucose (74-106) mg/dL POC Glucose 144 H (60-110) mg/dL Calcium (8.5-10.1) mg/dL Phosphorus (2.6-4.7) mg/dL Magnesium (1.8-2.4) mg/dL Total Bilirubin (0.2-1.0) mg/dL AST (15-37) IU/L ALT (14-63) IU/L Alkaline Phosphatase (46-116) U/L Total Protein (6.4-8.2) g/dL Albumin (3.4-5.0) g/dL Globulin (2.6-4.0) g/dL Albumin/Globulin Ratio (0.9-1.6) Triglycerides (0-200) mg/dL Cholesterol (50-200) mg/dL LDL Cholesterol, Calc (60-180) mg/dL VLDL Cholesterol (5-55) mg/dL HDL Cholesterol (40-60) mg/dL Cholesterol/HDL Ratio (3.3-6.0) Vancomycin Trough 21.0 H (5.0-10.0) ug/mL 05/22/18 05/22/18 Range/Units 05:32 07:40 WBC (4.0-11.0) K/uL RBC (4.50-5.90) M/uL Hgb (13.0-17.0) g/dL Hct (38.0-50.0) % MCV (80.0-98.0) fL MCH (27.0-32.0) pg MCHC (31.0-37.0) g/dL RDW Std Deviation (28.0-62.0) fl RDW Coeff of Tre (11.0-15.0) % Plt Count (150-400) K/uL MPV (7.40-12.00) fL Neut % (Auto) (48.0-80.0) % Lymph % (Auto) (16.0-40.0) % [place] % (Auto) (0.0-15.0) % Eos % (Auto) (0.0-7.0) % Baso % (Auto) (0.0-1.5) % Neut # (Auto) (1.4-5.7) K/uL Lymph # (Auto) (0.6-2.4) K/uL [place] # (Auto) (0.0-0.8) K/uL Eos # (Auto) (0.0-0.7) K/uL Baso # (Auto) (0.0-0.1) K/uL Nucleated RBC % /100WBC Nucleated RBCs # K/uL Sodium 143 (136-148) mmol/L Potassium 4.2 (3.5-5.1) mmol/L Chloride 107 (98-107) mmol/L Carbon Dioxide 28.6 (21.0-32.0) mmol/L BUN 15 (7.0-18.0) mg/dL Creatinine 1.1 (0.8-1.3) mg/dL Est Cr Clr Drug Dosing 61.29 mL/min Estimated GFR (MDRD) > 60.0 ml/min Glucose 90 (74-106) mg/dL POC Glucose 88 (60-110) mg/dL Calcium 8.2 L (8.5-10.1) mg/dL Phosphorus (2.6-4.7) mg/dL Magnesium (1.8-2.4) mg/dL Total Bilirubin 0.3 (0.2-1.0) mg/dL AST 24 (15-37) IU/L ALT 47 (14-63) IU/L Alkaline Phosphatase 48 (46-116) U/L Total Protein 5.9 L (6.4-8.2) g/dL Albumin 1.9 L (3.4-5.0) g/dL Globulin 4.0 (2.6-4.0) g/dL Albumin/Globulin Ratio 0.5 L (0.9-1.6) Triglycerides 131 (0-200) mg/dL Cholesterol 129 (50-200) mg/dL LDL Cholesterol, Calc 81 (60-180) mg/dL VLDL Cholesterol 26 (5-55) mg/dL HDL Cholesterol 22 L (40-60) mg/dL Cholesterol/HDL Ratio 5.9 (3.3-6.0) Vancomycin Trough (5.0-10.0) ug/mL Steve Results Last 24 Hours: Microbiology 05/20/18 00:25 Aerobic Blood Culture - Preliminary Blood - Venous NO GROWTH AFTER 2 DAYS Anaerobic Blood Culture - Final 05/20/18 00:35 Aerobic Blood Culture - Preliminary Blood - Venous - Lab Draw NO GROWTH AFTER 2 DAYS Anaerobic Blood Culture - Preliminary NO GROWTH AFTER 2 DAYS Med Orders - Current: Current Medications Acetaminophen (Tylenol) 650 mg PO Q6H PRN PRN Reason: Pain Albuterol (Proventil Neb Soln) 2.5 mg NEB TIDRT [facility] Last Admin: 05/22/18 06:03 Dose: Not Given Apixaban (Eliquis) 5 mg PO BID [facility] Last Admin: 05/22/18 09:08 Dose: 5 mg Clindamycin HCl (Cleocin) 300 mg PO Q8H [facility] Last Admin: 05/22/18 09:29 Dose: 300 mg Diltiazem HCl (Cardizem Cd) 240 mg PO DAILY [facility] Last Admin: 05/22/18 09:07 Dose: 240 mg Finasteride (Proscar) 5 mg PO DAILY [facility] Last Admin: 05/22/18 09:08 Dose: 5 mg Fish Oil (Fish Oil) 1 gm PO DAILY [facility] Last Admin: 05/22/18 09:07 Dose: 1 gm Gabapentin (Neurontin) 1,600 mg PO BID [facility] Last Admin: 05/22/18 09:08 Dose: 1,600 mg Insulin Aspart (Novolog) 0 unit SUBCUT ACBED [facility]; Protocol Last Admin: 05/22/18 07:44 Dose: Not Given Metoprolol Tartrate (Lopressor) 50 mg PO BID [facility] Last Admin: 05/22/18 09:08 Dose: 50 mg Midodrine (Midodrine) 2.5 mg PO BID@08,14 [facility] Last Admin: 05/22/18 09:09 Dose: 2.5 mg Morphine Sulfate (Morphine) 2 mg IVPUSH Q2H PRN PRN Reason: Pain (severe 7-10) Last Admin: 05/21/18 22:48 Dose: 2 mg Morphine Sulfate (Morphine) 15 mg PO Q6H PRN PRN Reason: Pain Last Admin: 05/21/18 20:41 Dose: 15 mg Oxycodone HCl (Oxycodone) 5 mg PO Q4H PRN PRN Reason: Pain (moderate 4-6) Last Admin: 05/21/18 22:47 Dose: 5 mg Pantoprazole Sodium (Protonix) 40 mg PO ACBREAKFAST [facility] Last Admin: 05/22/18 07:39 Dose: 40 mg Breo Fluticasone/ (Vilanterol) 1 each INH DAILY [facility] Last Admin: 05/22/18 09:29 Dose: 1 each Spiriva Respimat 2 each INH DAILY [facility] Last Admin: 05/22/18 09:29 Dose: 2 each Polysaccharide Iron Complex (Ferrex 150) 150 mg PO DAILY [facility] Last Admin: 05/22/18 09:09 Dose: 150 mg Prednisone (Prednisone) 20 mg PO DAILY [facility] Last Admin: 05/22/18 09:29 Dose: 20 mg Trazodone HCl (Trazodone) 50 mg PO BEDTIME [facility] Last Admin: 05/21/18 20:40 Dose: 50 mg Vancomycin HCl (Pharmacy To Dose - Vancomycin) 1 dose .XX ASDIRECTED [facility] Discontinued Medications Acetaminophen (Tylenol Extra Strength) 1,000 mg PO BEDTIME STA Stop: 05/20/18 01:49 Last Admin: 05/20/18 01:51 Dose: Not Given Acetaminophen (Tylenol) 650 mg PO NOW ONE Stop: 05/20/18 01:50 Last Admin: 05/20/18 01:53 Dose: 650 mg Albuterol (Proventil Neb Soln) 2.5 mg INH DAILY [facility] Last Admin: 05/20/18 09:57 Dose: 2.5 mg Albuterol (Proventil Neb Soln) 2.5 mg INH TID [facility] Last Admin: 05/20/18 14:10 Dose: 2.5 mg Albuterol (Proventil Neb Soln) 2.5 mg INH TIDRT [facility] Hydrochlorothiazide (Hydrochlorothiazide) 25 mg PO DAILY [facility] Last Admin: 05/20/18 09:26 Dose: Not Given Clindamycin Phosphate 300 mg/ (Premix) 50 mls @ 150 mls/hr IV ONETIME ONE Stop: 05/20/18 00:28 Last Admin: 05/20/18 00:36 Dose: 150 mls/hr Vancomycin HCl 1 gm/ Sodium (Chloride) 250 mls @ 250 mls/hr IV ONETIME ONE Stop: 05/20/18 01:08 Last Admin: 05/20/18 00:59 Dose: 250 mls/hr Sodium Chloride (Normal Saline) 1,000 mls @ 125 mls/hr IV STAT [facility] Last Admin: 05/20/18 01:43 Dose: 125 mls/hr Sodium Chloride (Normal Saline) 1,000 mls @ 50 mls/hr IV ASDIRECTED [facility] Last Admin: 05/21/18 17:29 Dose: 50 mls/hr Vancomycin HCl 1 gm/ Sodium (Chloride) 250 mls @ 166 mls/hr IV ONETIME ONE Stop: 05/20/18 04:30 Last Admin: 05/20/18 03:06 Dose: 166 mls/hr Vancomycin HCl 1 gm/ Sodium (Chloride) 250 mls @ 166 mls/hr IV Q12H [facility] Last Admin: 05/22/18 07:01 Dose: Not Given Clindamycin Phosphate 300 mg/ (Premix) 50 mls @ 150 mls/hr IV Q8H [facility] Last Admin: 05/22/18 04:17 Dose: 150 mls/hr Iron Sucrose 100 mg/ Sodium (Chloride) 105 mls @ 210 mls/hr IV ONETIME ONE Stop: 05/21/18 16:51 Last Admin: 05/21/18 17:38 Dose: 210 mls/hr Vancomycin HCl 0.75 gm/ Sodium (Chloride) 250 mls @ 166.667 mls/hr IV Q12H [facility] Last Admin: 05/22/18 08:51 Dose: Not Given Vancomycin HCl 1 gm/ Sodium (Chloride) 250 mls @ 250 mls/hr IV Q24H [facility] Last Admin: 05/22/18 09:14 Dose: Not Given Insulin Aspart (Novolog) 0 unit SUBCUT ACBREAKFASTANDBED [facility]; Protocol Midodrine (Midodrine) 2.5 mg PO BID [facility] Last Admin: 05/21/18 09:16 Dose: Not Given Morphine Sulfate (Morphine) 2 mg IVPUSH ONETIME ONE Stop: 05/20/18 00:10 Last Admin: 05/20/18 00:35 Dose: 2 mg - Exam General: Alert, Oriented, Cooperative, No Acute Distress Lungs: Clear to Auscultation, Normal Respiratory Effort Cardiovascular: Regular Rate, Regular Rhythm GI/Abdominal Exam: Normal Bowel Sounds, Soft, Non-Tender, No Distention Extremities: Other (Right foot cellulitis seems to be regressing. Within marked borders.) Skin: Warm, Dry Neurological: No New Focal Deficit - Problem List Review Problem List Initiated/Reviewed/Updated: Yes - My Orders Last 24 Hours: My Active Orders 05/21/18 11:30 Fecal Occult Blood Collection [RC] ASDIRECTED 05/22/18 09:00 Iron Polysaccharides Complex [Ferrex 150] 150 mg PO DAILY 05/22/18 09:15 Clindamycin HCl [Cleocin] 300 mg PO Q8H - Plan Plan:: A: 1. Right foot cellulitis 2. Iron deficiency anemia 3. Acute on chronic kidney disease 4. Diabetes mellitus type 2 P: 1. Right foot cellulitis, improving. Start clindamycin 300 mg PO TID for 10 days. 2. Iron deficiency anemia, stable. Ordered Iron sucrose 300 mg IV once. Continue with iron supplementation. 3. Acute on chronic kidney disease, improving. Continue to monitor. 4. Diabetes mellitus type 2, likely 2/2 to chronic prednisone use. Will need outpatient follow-up. Possibly start metformin pending how his kidney function is doing. Dispo: plan to dc tomorrow. <Claudy Bo - Last Filed: 05/22/18 11:11> - General Info Admission Dx/Problem (Free Text): I have seen and examined the patient independently of medical secretary. I have discuss the case with him. I agree with the assessment and plan of care as outlined by him. Please see orders. - Patient Data Vitals - Most Recent: Last Vital Signs Temp 36.6 C 05/22/18 08:01 Pulse 101 H 05/22/18 09:08 Resp 17 05/22/18 08:01 BP 122/65 05/22/18 09:08 Pulse Ox 92 L 05/22/18 08:01 I&O - Last 24 Hours: Intake & Output 05/21/18 05/22/18 05/22/18 22:59 06:59 14:59 Intake Total 1938 1633 Output Total 1050 1025 Balance 888 608 Lab Results Last 24 Hours: Laboratory Results - last 24 hr 05/21/18 05/21/18 05/21/18 Range/Units 07:45 12:06 17:45 WBC (4.0-11.0) K/uL RBC (4.50-5.90) M/uL Hgb (13.0-17.0) g/dL Hct (38.0-50.0) % MCV (80.0-98.0) fL MCH (27.0-32.0) pg MCHC (31.0-37.0) g/dL RDW Std Deviation (28.0-62.0) fl RDW Coeff of Tre (11.0-15.0) % Plt Count (150-400) K/uL MPV (7.40-12.00) fL Neut % (Auto) (48.0-80.0) % Lymph % (Auto) (16.0-40.0) % [place] % (Auto) (0.0-15.0) % Eos % (Auto) (0.0-7.0) % Baso % (Auto) (0.0-1.5) % Neut # (Auto) (1.4-5.7) K/uL Lymph # (Auto) (0.6-2.4) K/uL [place] # (Auto) (0.0-0.8) K/uL Eos # (Auto) (0.0-0.7) K/uL Baso # (Auto) (0.0-0.1) K/uL Nucleated RBC % /100WBC Nucleated RBCs # K/uL Sodium (136-148) mmol/L Potassium (3.5-5.1) mmol/L Chloride (98-107) mmol/L Carbon Dioxide (21.0-32.0) mmol/L BUN (7.0-18.0) mg/dL Creatinine (0.8-1.3) mg/dL Est Cr Clr Drug Dosing mL/min Estimated GFR (MDRD) ml/min Glucose (74-106) mg/dL POC Glucose 200 H 194 H (60-110) mg/dL Calcium (8.5-10.1) mg/dL Phosphorus 3.2 (2.6-4.7) mg/dL Magnesium 1.8 (1.8-2.4) mg/dL Total Bilirubin (0.2-1.0) mg/dL AST (15-37) IU/L ALT (14-63) IU/L Alkaline Phosphatase (46-116) U/L Total Protein (6.4-8.2) g/dL Albumin (3.4-5.0) g/dL Globulin (2.6-4.0) g/dL Albumin/Globulin Ratio (0.9-1.6) Triglycerides (0-200) mg/dL Cholesterol (50-200) mg/dL LDL Cholesterol, Calc (60-180) mg/dL VLDL Cholesterol (5-55) mg/dL HDL Cholesterol (40-60) mg/dL Cholesterol/HDL Ratio (3.3-6.0) Vancomycin Trough (5.0-10.0) ug/mL 05/21/18 05/22/18 05/22/18 Range/Units 20:36 05:32 05:32 WBC 8.41 (4.0-11.0) K/uL RBC 3.06 L (4.50-5.90) M/uL Hgb 8.1 L (13.0-17.0) g/dL Hct 27.3 L (38.0-50.0) % MCV 89.2 (80.0-98.0) fL MCH 26.5 L (27.0-32.0) pg MCHC 29.7 L (31.0-37.0) g/dL RDW Std Deviation 55.7 (28.0-62.0) fl RDW Coeff of Tre 17 H (11.0-15.0) % Plt Count 206 (150-400) K/uL MPV 9.30 (7.40-12.00) fL Neut % (Auto) 73.8 (48.0-80.0) % Lymph % (Auto) 15.5 L (16.0-40.0) % [place] % (Auto) 9.3 (0.0-15.0) % Eos % (Auto) 1.2 (0.0-7.0) % Baso % (Auto) 0.2 (0.0-1.5) % Neut # (Auto) 6.2 H (1.4-5.7) K/uL Lymph # (Auto) 1.3 (0.6-2.4) K/uL [place] # (Auto) 0.8 (0.0-0.8) K/uL Eos # (Auto) 0.1 (0.0-0.7) K/uL Baso # (Auto) 0.0 (0.0-0.1) K/uL Nucleated RBC % 0.0 /100WBC Nucleated RBCs # 0 K/uL Sodium (136-148) mmol/L Potassium (3.5-5.1) mmol/L Chloride (98-107) mmol/L Carbon Dioxide (21.0-32.0) mmol/L BUN (7.0-18.0) mg/dL Creatinine (0.8-1.3) mg/dL Est Cr Clr Drug Dosing mL/min Estimated GFR (MDRD) ml/min Glucose (74-106) mg/dL POC Glucose 144 H (60-110) mg/dL Calcium (8.5-10.1) mg/dL Phosphorus (2.6-4.7) mg/dL Magnesium (1.8-2.4) mg/dL Total Bilirubin (0.2-1.0) mg/dL AST (15-37) IU/L ALT (14-63) IU/L Alkaline Phosphatase (46-116) U/L Total Protein (6.4-8.2) g/dL Albumin (3.4-5.0) g/dL Globulin (2.6-4.0) g/dL Albumin/Globulin Ratio (0.9-1.6) Triglycerides (0-200) mg/dL Cholesterol (50-200) mg/dL LDL Cholesterol, Calc (60-180) mg/dL VLDL Cholesterol (5-55) mg/dL HDL Cholesterol (40-60) mg/dL Cholesterol/HDL Ratio (3.3-6.0) Vancomycin Trough 21.0 H (5.0-10.0) ug/mL 05/22/18 05/22/18 Range/Units 05:32 07:40 WBC (4.0-11.0) K/uL RBC (4.50-5.90) M/uL Hgb (13.0-17.0) g/dL Hct (38.0-50.0) % MCV (80.0-98.0) fL MCH (27.0-32.0) pg MCHC (31.0-37.0) g/dL RDW Std Deviation (28.0-62.0) fl RDW Coeff of Tre (11.0-15.0) % Plt Count (150-400) K/uL MPV (7.40-12.00) fL Neut % (Auto) (48.0-80.0) % Lymph % (Auto) (16.0-40.0) % [place] % (Auto) (0.0-15.0) % Eos % (Auto) (0.0-7.0) % Baso % (Auto) (0.0-1.5) % Neut # (Auto) (1.4-5.7) K/uL Lymph # (Auto) (0.6-2.4) K/uL [place] # (Auto) (0.0-0.8) K/uL Eos # (Auto) (0.0-0.7) K/uL Baso # (Auto) (0.0-0.1) K/uL Nucleated RBC % /100WBC Nucleated RBCs # K/uL Sodium 143 (136-148) mmol/L Potassium 4.2 (3.5-5.1) mmol/L Chloride 107 (98-107) mmol/L Carbon Dioxide 28.6 (21.0-32.0) mmol/L BUN 15 (7.0-18.0) mg/dL Creatinine 1.1 (0.8-1.3) mg/dL Est Cr Clr Drug Dosing 61.29 mL/min Estimated GFR (MDRD) > 60.0 ml/min Glucose 90 (74-106) mg/dL POC Glucose 88 (60-110) mg/dL Calcium 8.2 L (8.5-10.1) mg/dL Phosphorus (2.6-4.7) mg/dL Magnesium (1.8-2.4) mg/dL Total Bilirubin 0.3 (0.2-1.0) mg/dL AST 24 (15-37) IU/L ALT 47 (14-63) IU/L Alkaline Phosphatase 48 (46-116) U/L Total Protein 5.9 L (6.4-8.2) g/dL Albumin 1.9 L (3.4-5.0) g/dL Globulin 4.0 (2.6-4.0) g/dL Albumin/Globulin Ratio 0.5 L (0.9-1.6) Triglycerides 131 (0-200) mg/dL Cholesterol 129 (50-200) mg/dL LDL Cholesterol, Calc 81 (60-180) mg/dL VLDL Cholesterol 26 (5-55) mg/dL HDL Cholesterol 22 L (40-60) mg/dL Cholesterol/HDL Ratio 5.9 (3.3-6.0) Vancomycin Trough (5.0-10.0) ug/mL Steve Results Last 24 Hours: Microbiology 05/20/18 00:25 Aerobic Blood Culture - Preliminary Blood - Venous NO GROWTH AFTER 2 DAYS Anaerobic Blood Culture - Final 05/20/18 00:35 Aerobic Blood Culture - Preliminary Blood - Venous - Lab Draw NO GROWTH AFTER 2 DAYS Anaerobic Blood Culture - Preliminary NO GROWTH AFTER 2 DAYS Med Orders - Current: Current Medications Acetaminophen (Tylenol) 650 mg PO Q6H PRN PRN Reason: Pain Albuterol (Proventil Neb Soln) 2.5 mg NEB TIDRT [facility] Last Admin: 05/22/18 06:03 Dose: Not Given Apixaban (Eliquis) 5 mg PO BID [facility] Last Admin: 05/22/18 09:08 Dose: 5 mg Clindamycin HCl (Cleocin) 300 mg PO Q8H [facility] Last Admin: 05/22/18 09:29 Dose: 300 mg Diltiazem HCl (Cardizem Cd) 240 mg PO DAILY [facility] Last Admin: 05/22/18 09:07 Dose: 240 mg Finasteride (Proscar) 5 mg PO DAILY [facility] Last Admin: 05/22/18 09:08 Dose: 5 mg Fish Oil (Fish Oil) 1 gm PO DAILY [facility] Last Admin: 05/22/18 09:07 Dose: 1 gm Gabapentin (Neurontin) 1,600 mg PO BID [facility] Last Admin: 05/22/18 09:08 Dose: 1,600 mg Iron Sucrose 300 mg/ Sodium (Chloride) 115 mls @ 400 mls/hr IV ONETIME ONE Stop: 05/22/18 11:22 Insulin Aspart (Novolog) 0 unit SUBCUT ACBED [facility]; Protocol Last Admin: 05/22/18 07:44 Dose: Not Given Metoprolol Tartrate (Lopressor) 50 mg PO BID [facility] Last Admin: 05/22/18 09:08 Dose: 50 mg Midodrine (Midodrine) 2.5 mg PO BID@08,14 [facility] Last Admin: 05/22/18 09:09 Dose: 2.5 mg Morphine Sulfate (Morphine) 2 mg IVPUSH Q2H PRN PRN Reason: Pain (severe 7-10) Last Admin: 05/21/18 22:48 Dose: 2 mg Morphine Sulfate (Morphine) 15 mg PO Q6H PRN PRN Reason: Pain Last Admin: 05/21/18 20:41 Dose: 15 mg Oxycodone HCl (Oxycodone) 5 mg PO Q4H PRN PRN Reason: Pain (moderate 4-6) Last Admin: 05/21/18 22:47 Dose: 5 mg Pantoprazole Sodium (Protonix) 40 mg PO ACBREAKFAST [facility] Last Admin: 05/22/18 07:39 Dose: 40 mg Breo Fluticasone/ (Vilanterol) 1 each INH DAILY [facility] Last Admin: 05/22/18 09:29 Dose: 1 each Spiriva Respimat 2 each INH DAILY [facility] Last Admin: 05/22/18 09:29 Dose: 2 each Polysaccharide Iron Complex (Ferrex 150) 150 mg PO DAILY [facility] Last Admin: 05/22/18 09:09 Dose: 150 mg Prednisone (Prednisone) 20 mg PO DAILY [facility] Last Admin: 05/22/18 09:29 Dose: 20 mg Trazodone HCl (Trazodone) 50 mg PO BEDTIME DANIELITO Last Admin: 05/21/18 20:40 Dose: 50 mg Vancomycin HCl (Pharmacy To Dose - Vancomycin) 1 dose .XX ASDIRECTED [facility] Discontinued Medications Acetaminophen (Tylenol Extra Strength) 1,000 mg PO BEDTIME STA Stop: 05/20/18 01:49 Last Admin: 05/20/18 01:51 Dose: Not Given Acetaminophen (Tylenol) 650 mg PO NOW ONE Stop: 05/20/18 01:50 Last Admin: 05/20/18 01:53 Dose: 650 mg Albuterol (Proventil Neb Soln) 2.5 mg INH DAILY [facility] Last Admin: 05/20/18 09:57 Dose: 2.5 mg Albuterol (Proventil Neb Soln) 2.5 mg INH TID [facility] Last Admin: 05/20/18 14:10 Dose: 2.5 mg Albuterol (Proventil Neb Soln) 2.5 mg INH TIDRT [facility] Hydrochlorothiazide (Hydrochlorothiazide) 25 mg PO DAILY [facility] Last Admin: 05/20/18 09:26 Dose: Not Given Clindamycin Phosphate 300 mg/ (Premix) 50 mls @ 150 mls/hr IV ONETIME ONE Stop: 05/20/18 00:28 Last Admin: 05/20/18 00:36 Dose: 150 mls/hr Vancomycin HCl 1 gm/ Sodium (Chloride) 250 mls @ 250 mls/hr IV ONETIME ONE Stop: 05/20/18 01:08 Last Admin: 05/20/18 00:59 Dose: 250 mls/hr Sodium Chloride (Normal Saline) 1,000 mls @ 125 mls/hr IV STAT [facility] Last Admin: 05/20/18 01:43 Dose: 125 mls/hr Sodium Chloride (Normal Saline) 1,000 mls @ 50 mls/hr IV ASDIRECTED [facility] Last Admin: 05/21/18 17:29 Dose: 50 mls/hr Vancomycin HCl 1 gm/ Sodium (Chloride) 250 mls @ 166 mls/hr IV ONETIME ONE Stop: 05/20/18 04:30 Last Admin: 05/20/18 03:06 Dose: 166 mls/hr Vancomycin HCl 1 gm/ Sodium (Chloride) 250 mls @ 166 mls/hr IV Q12H [facility] Last Admin: 05/22/18 07:01 Dose: Not Given Clindamycin Phosphate 300 mg/ (Premix) 50 mls @ 150 mls/hr IV Q8H [facility] Last Admin: 05/22/18 04:17 Dose: 150 mls/hr Iron Sucrose 100 mg/ Sodium (Chloride) 105 mls @ 210 mls/hr IV ONETIME ONE Stop: 05/21/18 16:51 Last Admin: 05/21/18 17:38 Dose: 210 mls/hr Vancomycin HCl 0.75 gm/ Sodium (Chloride) 250 mls @ 166.667 mls/hr IV Q12H [facility] Last Admin: 05/22/18 08:51 Dose: Not Given Vancomycin HCl 1 gm/ Sodium (Chloride) 250 mls @ 250 mls/hr IV Q24H [facility] Last Admin: 05/22/18 09:14 Dose: Not Given Insulin Aspart (Novolog) 0 unit SUBCUT ACBREAKFASTANDBED [facility]; Protocol Midodrine (Midodrine) 2.5 mg PO BID [facility] Last Admin: 05/21/18 09:16 Dose: Not Given Morphine Sulfate (Morphine) 2 mg IVPUSH ONETIME ONE Stop: 05/20/18 00:10 Last Admin: 05/20/18 00:35 Dose: 2 mg - Problem List & Annotations (1) Cellulitis and abscess of foot SNOMED Code(s): 836036962, 376879693 Code(s): L03.119 - CELLULITIS OF UNSPECIFIED PART OF LIMB; L02.619 - CUTANEOUS ABSCESS OF UNSPECIFIED FOOT Status: Acute Priority: High Current Visit: Yes (2) Cardiomyopathy SNOMED Code(s): 95512840 Code(s): I42.9 - CARDIOMYOPATHY, UNSPECIFIED Status: Chronic Priority: High Current Visit: Yes Qualifiers: Cardiomyopathy type: unspecified Qualified Code(s): I42.9 - Cardiomyopathy , unspecified (3) CKD (chronic kidney disease) SNOMED Code(s): 145376212 Code(s): N18.9 - CHRONIC KIDNEY DISEASE, UNSPECIFIED Status: Chronic Priority: High Current Visit: Yes Qualifiers: Chronic kidney disease stage: stage 3 (moderate) Qualified Code(s): N18.3 - Chronic kidney disease, stage 3 (moderate) (4) Steroid-induced osteoporosis SNOMED Code(s): 994497183 Code(s): T38.0X1A - POISONING BY GLUCOCORT/SYNTH ANALOG, ACCIDENTAL, INIT; M81.8 - OTHER OSTEOPOROSIS WITHOUT CURRENT PATHOLOGICAL FRACTURE Status: Chronic Priority: High Current Visit: Yes (5) History of aspergillosis SNOMED Code(s): 365654553 Code(s): Z86.19 - PERSONAL HISTORY OF OTHER INFECTIOUS AND PARASITIC DISEASES Status: Chronic Priority: High Current Visit: Yes - My Orders Last 24 Hours: My Active Orders 05/21/18 14:00 Midodrine 2.5 mg PO BID@08,14 05/21/18 15:05 Consult to Environmental Issues Instructor [Consult to Diabetic Nurse Specialist] [CONS] Routine
--- NOTE | 2018-05-22 12:34 | CR ---
EXAM DATE: 05/20/18 PATIENT'S AGE: 58 Patient: JUANPABLO ALDRIDGE Facility: [place], [place] Site . Site : [id number] Study: XRay Chest -05/20/2018 1:11:32 AM Ordering Physician: Sendy Velasco Final Report: INDICATION: Chest pain and shortness of breath TECHNIQUE: Chest 1 view. COMPARISON: 05/02/2018 FINDINGS: Cardiovascular and mediastinum: Heart size and vasculature are normal in caliber and appearance. Mediastinum is within normal limits. Lungs and pleural space: Lungs are clear. No sign of infiltrate or mass. No sign of pleural effusion. No pneumothorax. Bones and soft tissues: Left shoulder arthroplasty. IMPRESSION: Unremarkable chest. Dictated by Juanpablo Gunderson MD @ 05/20/2018 1:13:14 AM Dictated by: Juanpablo Gunderson MD @ 05/20/2018 01:13:20 (Electronic Signature) Report Signed by Proxy. MARIO
[2018-05-22] MEDS: Morphine 2 MG/ML Syringe IVPUSH PRN ×4 (12:42→21:08)
[2018-05-22] MEDS ORDERED: Albuterol 0.083% 2.5 MG/3 ML Neb Soln NEB PRN (13:19)
[2018-05-22] MEDS: traZODone 50 MG Tab PO SCH (20:43)
[2018-05-22] MEDS: oxyCODONE 5 MG Tab PO PRN (20:43)
[2018-05-23] MEDS: Clindamycin HCl 150 MG Cap PO SCH ×2 (00:15→08:28)
[2018-05-23 05:49] LABS: CHLORIDE,CL 108 mmol/L (98-107); SODIUM,NA 143 mmol/L (136-148)
[2018-05-23] MEDS: Insulin Aspart 100 Units/ML 3 ML Pen SUBCUT SCH (07:32)
[2018-05-23] MEDS: Finasteride 5 MG Tab PO SCH (08:26)
[2018-05-23] MEDS: Diltiazem 120 MG Cap.CD PO SCH (08:26)
[2018-05-23] MEDS: Gabapentin 800 MG Tab PO SCH (08:27)
[2018-05-23] MEDS: Metoprolol Tartrate 50 MG Tab PO SCH (08:27)
[2018-05-23] MEDS: Apixaban 5 MG Tab PO SCH (08:28)
[2018-05-23] MEDS: Iron Polysaccharides Complex 150 MG Cap PO SCH ×2 (08:28→08:34)
[2018-05-23] MEDS: predniSONE 20 MG Tab PO SCH (08:28)
[2018-05-23] MEDS: Fish Oil/Omega-3 Fatty Acids 1 Gm Cap PO SCH (08:28)
[2018-05-23 08:29] VITALS: BP 142/88
[2018-05-23] MEDS: Midodrine 5 MG Tab PO SCH (08:29)
[2018-05-23] MEDS: SPIRIVA RESPIMAT INH SCH (08:34)
[2018-05-23] MEDS: Pantoprazole 40 MG Tab.CR PO SCH (08:34)
[2018-05-23] MEDS: [UNRECOGNIZED DRUG - OTHER] INH SCH (08:34)
[2018-05-23] MEDS: VILANTEROL INH SCH (08:34)
--- NOTE | 2018-05-23 09:30 | PCM.DCSUM1 ---
<To Ordonez - Last Filed: 05/23/18 09:40> Discharge Summary - Hospital Course Free Text/Narrative:: Admission date: 05/20/18 Discharge date: 05/23/18 Admission diagnosis: 1. Right foot cellulitis 2. Chronic kidney disease 3. Steroid-induced osteoporosis 4. History of aspergillosis Discharge diagnosis: 1. Right foot cellulitis, improved 2. Iron deficiency anemia, stable 3. Chronic kidney disease 4. Steroid induced osteoporosis 5. History of aspergillosis Hospital course: Juanpablo Walls is a 58 y/o male who was admitted for right foot cellulitis. He had started clindamycin at home one day prior to admission, however, it was getting worse and more painful. He was admitted for right foot cellulitis needing IV antibiotics. He was started on Clindamycin and Vancomycin IV and his leukocytosis and cellulitis improved. He was then switched to PO clindamycin which he tolerated well. In addition, he was noted to have iron deficiency anemia with Hg 9. Stool occult test was negative and he given a total of 400 mg of Iron sucrose IV and started on iron polysaccharide. He was discharged home on clindamycin 300 mg PO TID for 7 days and iron polysaccharide. Follow-up: 1. Primary care provider within 1-2 weeks. - Discharge Data Discharge Date: 05/23/18 Discharge Disposition: Home, Self-Care 01 Condition: Good - Patient Summary/Data Consults: Consultations 05/21/18 15:05 Consult to Roofer Assistant [Consult to Diabetic Nurse Specialist] [CONS] Routine - Patient Instructions Diet: Diabetic Diet Activity: As Tolerated Notify Provider of: Fever, Increased Pain, Swelling and Redness, Drainage, Nausea and/or Vomiting - Discharge Plan *PRESCRIPTION DRUG MONITORING PROGRAM REVIEWED*: Not Applicable *COPY OF PRESCRIPTION DRUG MONITORING REPORT IN PATIENT KECIA: Not Applicable Prescriptions/Med Rec: Clindamycin HCl [Cleocin] 300 mg PO Q8H 7 Days cap Iron Polysaccharides Complex [Ferrex 150] 150 mg PO DAILY 30 Days #30 cap Home Medications: Home Meds Finasteride 5 mg PO DAILY 01/11/16 [History] Fluticasone/Vilanterol [Breo Ellipta 200-25 Mcg INH] 1 inh INH DAILY 01/11/16 [ History] Gabapentin [Neurontin] 1,600 mg PO BID 08/28/16 [History] Testosterone [Androgel] 4 pump TOP DAILY 01/11/16 [History] predniSONE [Prednisone] 20 mg PO DAILY 01/11/16 [History] Tiotropium [place] [Spiriva Respimat] 2 puff INH BID 01/12/16 [History] Morphine 15 mg PO Q6H PRN #10 tablet 01/15/16 [Rx] Albuterol Sulfate 2.5 mg IH DAILY 05/19/18 [History] Apixaban [Eliquis] 5 mg PO BID 05/19/18 [History] Diltiazem HCl [Diltiazem 24Hr ER] 240 mg PO DAILY 05/19/18 [History] Icosapent Ethyl [Vascepa] 1 gm PO DAILY 05/19/18 [History] Pantoprazole [ProTONIX] 40 mg PO DAILY 05/19/18 [History] Clindamycin HCl 300 mg PO Q8H 05/20/18 [History] Metoprolol Tartrate 50 mg PO BID 05/20/18 [History] Midodrine 2.5 mg PO BID 05/20/18 [History] traZODone HCl [Trazodone HCl] 50 mg PO BEDTIME 05/20/18 [History] Clindamycin HCl [Cleocin] 300 mg PO Q8H 7 Days cap 05/23/18 [Rx] Iron Polysaccharides Complex [Ferrex 150] 150 mg PO DAILY 30 Days #30 cap [Rx] Referrals: Anne Marie Rodriguez DPM [Ordering Only Provider] - 05/24/18 (Please follow-up with life skills coordinator as previously scheduled.) Connor Melchor MD [Primary Care Provider] - 06/08/18 12:15 pm - Discharge Summary/Plan Comment DC Time >30 min.: No - Patient Data Vitals - Most Recent: Last Vital Signs Temp 36.9 C 05/23/18 08:00 Pulse 85 05/23/18 08:27 Resp 18 05/23/18 08:00 BP 142/88 H 05/23/18 08:27 Pulse Ox 99 05/23/18 08:00 Weight - Most Recent: 70 kg I&O - Last 24 hours: Intake & Output 05/22/18 05/23/18 05/23/18 22:59 06:59 14:59 Intake Total 750 1000 Output Total 1000 975 Balance -250 25 Lab Results - Last 24 hrs: Laboratory Results - last 24 hr 05/22/18 05/22/18 05/22/18 Range/Units 12:11 17:26 20:49 WBC (4.0-11.0) K/uL RBC (4.50-5.90) M/uL Hgb (13.0-17.0) g/dL Hct (38.0-50.0) % MCV (80.0-98.0) fL MCH (27.0-32.0) pg MCHC (31.0-37.0) g/dL RDW Std Deviation (28.0-62.0) fl RDW Coeff of Tre (11.0-15.0) % Plt Count (150-400) K/uL MPV (7.40-12.00) fL Add Manual Diff Neutrophils % (Manual) (48.0-80.0) % Band Neutrophils % % Lymphocytes % (Manual) (16.0-40.0) % Monocytes % (Manual) (0.0-15.0) % Eosinophils % (Manual) (0.0-7.0) % Metamyelocytes % % Nucleated RBC % /100WBC Absolute Seg Neuts (1.4-5.7) Band Neutrophils # Lymphocytes # (Manual) (0.6-2.4) Monocytes # (Manual) (0.0-0.8) Eosinophils # (Manual) (0.0-0.7) Absolute Metamyelocyte Nucleated RBCs # K/uL Sodium (136-148) mmol/L Potassium (3.5-5.1) mmol/L Chloride (98-107) mmol/L Carbon Dioxide (21.0-32.0) mmol/L BUN (7.0-18.0) mg/dL Creatinine (0.8-1.3) mg/dL Est Cr Clr Drug Dosing Estimated GFR (MDRD) ml/min Glucose (74-106) mg/dL POC Glucose 98 162 H 142 H (60-110) mg/dL Calcium (8.5-10.1) mg/dL Magnesium (1.8-2.4) mg/dL Total Bilirubin (0.2-1.0) mg/dL AST (15-37) IU/L ALT (14-63) IU/L Alkaline Phosphatase (46-116) U/L Total Protein (6.4-8.2) g/dL Albumin (3.4-5.0) g/dL Globulin (2.6-4.0) g/dL Albumin/Globulin Ratio (0.9-1.6) H. pylori IgG Antibody (NEG) 05/23/18 05/23/18 05/23/18 Range/Units 04:21 04:21 05:21 WBC 8.25 (4.0-11.0) K/uL RBC 3.46 L (4.50-5.90) M/uL Hgb 9.3 L (13.0-17.0) g/dL Hct 30.7 L (38.0-50.0) % MCV 88.7 (80.0-98.0) fL MCH 26.9 L (27.0-32.0) pg MCHC 30.3 L (31.0-37.0) g/dL RDW Std Deviation 54.8 (28.0-62.0) fl RDW Coeff of Tre 17 H (11.0-15.0) % Plt Count 204 (150-400) K/uL MPV 9.20 (7.40-12.00) fL Add Manual Diff YES Neutrophils % (Manual) 71 (48.0-80.0) % Band Neutrophils % 2 % Lymphocytes % (Manual) 19 (16.0-40.0) % Monocytes % (Manual) 5 (0.0-15.0) % Eosinophils % (Manual) 1 (0.0-7.0) % Metamyelocytes % 2 % Nucleated RBC % 0.0 /100WBC Absolute Seg Neuts 5.9 H (1.4-5.7) Band Neutrophils # 0.2 Lymphocytes # (Manual) 1.6 (0.6-2.4) Monocytes # (Manual) 0.4 (0.0-0.8) Eosinophils # (Manual) 0.1 (0.0-0.7) Absolute Metamyelocyte 0.2 Nucleated RBCs # 0 K/uL Sodium 143 (136-148) mmol/L Potassium 4.0 (3.5-5.1) mmol/L Chloride 108 H (98-107) mmol/L Carbon Dioxide 28.0 (21.0-32.0) mmol/L BUN 15 (7.0-18.0) mg/dL Creatinine 1.1 (0.8-1.3) mg/dL Est Cr Clr Drug Dosing TNP Estimated GFR (MDRD) > 60.0 ml/min Glucose 65 L (74-106) mg/dL POC Glucose (60-110) mg/dL Calcium 8.7 (8.5-10.1) mg/dL Magnesium 1.9 (1.8-2.4) mg/dL Total Bilirubin 0.3 (0.2-1.0) mg/dL AST 19 (15-37) IU/L ALT 47 (14-63) IU/L Alkaline Phosphatase 52 (46-116) U/L Total Protein 6.2 L (6.4-8.2) g/dL Albumin 2.0 L (3.4-5.0) g/dL Globulin 4.2 H (2.6-4.0) g/dL Albumin/Globulin Ratio 0.5 L (0.9-1.6) H. pylori IgG Antibody NEGATIVE (NEG) 05/23/18 Range/Units 07:30 WBC (4.0-11.0) K/uL RBC (4.50-5.90) M/uL Hgb (13.0-17.0) g/dL Hct (38.0-50.0) % MCV (80.0-98.0) fL MCH (27.0-32.0) pg MCHC (31.0-37.0) g/dL RDW Std Deviation (28.0-62.0) fl RDW Coeff of Tre (11.0-15.0) % Plt Count (150-400) K/uL MPV (7.40-12.00) fL Add Manual Diff Neutrophils % (Manual) (48.0-80.0) % Band Neutrophils % % Lymphocytes % (Manual) (16.0-40.0) % Monocytes % (Manual) (0.0-15.0) % Eosinophils % (Manual) (0.0-7.0) % Metamyelocytes % % Nucleated RBC % /100WBC Absolute Seg Neuts (1.4-5.7) Band Neutrophils # Lymphocytes # (Manual) (0.6-2.4) Monocytes # (Manual) (0.0-0.8) Eosinophils # (Manual) (0.0-0.7) Absolute Metamyelocyte Nucleated RBCs # K/uL Sodium (136-148) mmol/L Potassium (3.5-5.1) mmol/L Chloride (98-107) mmol/L Carbon Dioxide (21.0-32.0) mmol/L BUN (7.0-18.0) mg/dL Creatinine (0.8-1.3) mg/dL Est Cr Clr Drug Dosing Estimated GFR (MDRD) ml/min Glucose (74-106) mg/dL POC Glucose 87 (60-110) mg/dL Calcium (8.5-10.1) mg/dL Magnesium (1.8-2.4) mg/dL Total Bilirubin (0.2-1.0) mg/dL AST (15-37) IU/L ALT (14-63) IU/L Alkaline Phosphatase (46-116) U/L Total Protein (6.4-8.2) g/dL Albumin (3.4-5.0) g/dL Globulin (2.6-4.0) g/dL Albumin/Globulin Ratio (0.9-1.6) H. pylori IgG Antibody (NEG) SHILOH Results - Last 24 hrs: Microbiology 05/20/18 00:25 Aerobic Blood Culture - Preliminary Blood - Venous NO GROWTH AFTER 3 DAYS Anaerobic Blood Culture - Final 05/20/18 00:35 Aerobic Blood Culture - Preliminary Blood - Venous - Lab Draw NO GROWTH AFTER 3 DAYS Anaerobic Blood Culture - Preliminary NO GROWTH AFTER 3 DAYS 05/22/18 17:00 Stool Occult Blood (SHILOH) - Final Stool / Feces NEGATIVE OCCULT BLOOD Med Orders - Current: Current Medications Acetaminophen (Tylenol) 650 mg PO Q6H PRN PRN Reason: Pain Albuterol (Proventil Neb Soln) 2.5 mg NEB TIDRT PRN PRN Reason: Shortness of Breath Apixaban (Eliquis) 5 mg PO BID [facility] Last Admin: 05/23/18 08:28 Dose: 5 mg Clindamycin HCl (Cleocin) 300 mg PO Q8H [facility] Last Admin: 05/23/18 08:28 Dose: 300 mg Diltiazem HCl (Cardizem Cd) 240 mg PO DAILY [facility] Last Admin: 05/23/18 08:26 Dose: 240 mg Finasteride (Proscar) 5 mg PO DAILY [facility] Last Admin: 05/23/18 08:26 Dose: 5 mg Fish Oil (Fish Oil) 1 gm PO DAILY [facility] Last Admin: 05/23/18 08:28 Dose: 1 gm Gabapentin (Neurontin) 1,600 mg PO BID [facility] Last Admin: 05/23/18 08:27 Dose: 1,600 mg Insulin Aspart (Novolog) 0 unit SUBCUT ACBED [facility]; Protocol Last Admin: 05/23/18 07:32 Dose: Not Given Metoprolol Tartrate (Lopressor) 50 mg PO BID [facility] Last Admin: 05/23/18 08:27 Dose: 50 mg Midodrine (Midodrine) 2.5 mg PO BID@ [facility] Last Admin: 05/23/18 08:29 Dose: 2.5 mg Morphine Sulfate (Morphine) 2 mg IVPUSH Q2H PRN PRN Reason: Pain (severe 7-10) Last Admin: 05/22/18 21:08 Dose: 2 mg Morphine Sulfate (Morphine) 15 mg PO Q6H PRN PRN Reason: Pain Last Admin: 05/21/18 20:41 Dose: 15 mg Oxycodone HCl (Oxycodone) 5 mg PO Q4H PRN PRN Reason: Pain (moderate 4-6) Last Admin: 05/22/18 20:43 Dose: 5 mg Pantoprazole Sodium (Protonix) 40 mg PO ACBREAKFAST [facility] Last Admin: 05/23/18 08:34 Dose: Not Given Breo Fluticasone/ (Vilanterol) 1 each INH DAILY [facility] Last Admin: 05/23/18 08:34 Dose: 1 each Spiriva Respimat 2 each INH DAILY [facility] Last Admin: 05/23/18 08:34 Dose: 2 each Polysaccharide Iron Complex (Ferrex 150) 150 mg PO DAILY [facility] Last Admin: 05/23/18 08:34 Dose: Not Given Prednisone (Prednisone) 20 mg PO DAILY [facility] Last Admin: 05/23/18 08:28 Dose: 20 mg Trazodone HCl (Trazodone) 50 mg PO BEDTIME [facility] Last Admin: 05/22/18 20:43 Dose: 50 mg Vancomycin HCl (Pharmacy To Dose - Vancomycin) 1 dose .XX ASDIRECTED [facility] Discontinued Medications Acetaminophen (Tylenol Extra Strength) 1,000 mg PO BEDTIME STA Stop: 05/20/18 01:49 Last Admin: 05/20/18 01:51 Dose: Not Given Acetaminophen (Tylenol) 650 mg PO NOW ONE Stop: 05/20/18 01:50 Last Admin: 05/20/18 01:53 Dose: 650 mg Albuterol (Proventil Neb Soln) 2.5 mg INH DAILY [facility] Last Admin: 05/20/18 09:57 Dose: 2.5 mg Albuterol (Proventil Neb Soln) 2.5 mg INH TID [facility] Last Admin: 05/20/18 14:10 Dose: 2.5 mg Albuterol (Proventil Neb Soln) 2.5 mg INH TIDRT DANIELITO Albuterol (Proventil Neb Soln) 2.5 mg NEB TIDRT [facility] Last Admin: 05/22/18 06:03 Dose: Not Given Hydrochlorothiazide (Hydrochlorothiazide) 25 mg PO DAILY [facility] Last Admin: 05/20/18 09:26 Dose: Not Given Clindamycin Phosphate 300 mg/ (Premix) 50 mls @ 150 mls/hr IV ONETIME ONE Stop: 05/20/18 00:28 Last Admin: 05/20/18 00:36 Dose: 150 mls/hr Vancomycin HCl 1 gm/ Sodium (Chloride) 250 mls @ 250 mls/hr IV ONETIME ONE Stop: 05/20/18 01:08 Last Admin: 05/20/18 00:59 Dose: 250 mls/hr Sodium Chloride (Normal Saline) 1,000 mls @ 125 mls/hr IV STAT [facility] Last Admin: 05/20/18 01:43 Dose: 125 mls/hr Sodium Chloride (Normal Saline) 1,000 mls @ 50 mls/hr IV ASDIRECTED [facility] Last Admin: 05/21/18 17:29 Dose: 50 mls/hr Vancomycin HCl 1 gm/ Sodium (Chloride) 250 mls @ 166 mls/hr IV ONETIME ONE Stop: 05/20/18 04:30 Last Admin: 05/20/18 03:06 Dose: 166 mls/hr Vancomycin HCl 1 gm/ Sodium (Chloride) 250 mls @ 166 mls/hr IV Q12H [facility] Last Admin: 05/22/18 07:01 Dose: Not Given Clindamycin Phosphate 300 mg/ (Premix) 50 mls @ 150 mls/hr IV Q8H [facility] Last Admin: 05/22/18 04:17 Dose: 150 mls/hr Iron Sucrose 100 mg/ Sodium (Chloride) 105 mls @ 210 mls/hr IV ONETIME ONE Stop: 05/21/18 16:51 Last Admin: 05/21/18 17:38 Dose: 210 mls/hr Vancomycin HCl 0.75 gm/ Sodium (Chloride) 250 mls @ 166.667 mls/hr IV Q12H [facility] Last Admin: 05/22/18 08:51 Dose: Not Given Vancomycin HCl 1 gm/ Sodium (Chloride) 250 mls @ 250 mls/hr IV Q24H [facility] Last Admin: 05/22/18 09:14 Dose: Not Given Iron Sucrose 300 mg/ Sodium (Chloride) 115 mls @ 76.667 mls/hr IV ONETIME ONE Stop: 05/22/18 12:36 Last Admin: 05/22/18 12:15 Dose: 76.667 mls/hr Insulin Aspart (Novolog) 0 unit SUBCUT ACBREAKFASTANDBED [facility]; Protocol Midodrine (Midodrine) 2.5 mg PO BID [facility] Last Admin: 05/21/18 09:16 Dose: Not Given Morphine Sulfate (Morphine) 2 mg IVPUSH ONETIME ONE Stop: 05/20/18 00:10 Last Admin: 05/20/18 00:35 Dose: 2 mg <Claudy Bo - Last Filed: 05/23/18 11:21> Discharge Summary - Hospital Course Free Text/Narrative:: I have seen and examined the patient independently of medical charge entry specialist. I have discussed the case with the resident. I agree with the assessment and plan of care as outlined for this patient. Please see orders. - Discharge Diagnosis/Problem(s) (1) Cellulitis and abscess of foot SNOMED Code(s): 147164178, 478869882 ICD Code: L03.119 - CELLULITIS OF UNSPECIFIED PART OF LIMB; L02.619 - CUTANEOUS ABSCESS OF UNSPECIFIED FOOT Status: Acute Priority: High Current Visit: Yes (2) Cardiomyopathy SNOMED Code(s): 89549495 ICD Code: I42.9 - CARDIOMYOPATHY, UNSPECIFIED Status: Chronic Priority: High Current Visit: Yes Qualifiers: Cardiomyopathy type: unspecified Qualified Code(s): I42.9 - Cardiomyopathy , unspecified (3) CKD (chronic kidney disease) SNOMED Code(s): 324318507 ICD Code: N18.9 - CHRONIC KIDNEY DISEASE, UNSPECIFIED Status: Chronic Priority: High Current Visit: Yes Qualifiers: Chronic kidney disease stage: stage 3 (moderate) Qualified Code(s): N18.3 - Chronic kidney disease, stage 3 (moderate) (4) Steroid-induced osteoporosis SNOMED Code(s): 122374892 ICD Code: T38.0X1A - POISONING BY GLUCOCORT/SYNTH ANALOG, ACCIDENTAL, INIT; M81.8 - OTHER OSTEOPOROSIS WITHOUT CURRENT PATHOLOGICAL FRACTURE Status: Chronic Priority: High Current Visit: Yes (5) History of aspergillosis SNOMED Code(s): 640050102 ICD Code: Z86.19 - PERSONAL HISTORY OF OTHER INFECTIOUS AND PARASITIC DISEASES Status: Chronic Priority: High Current Visit: Yes - Patient Summary/Data Consults: Consultations 05/21/18 15:05 Consult to Roofer Assistant [Consult to Diabetic Nurse Specialist] [CONS] Routine - Patient Data Vitals - Most Recent: Last Vital Signs Temp 36.9 C 05/23/18 08:00 Pulse 85 05/23/18 08:27 Resp 18 05/23/18 08:00 BP 142/88 H 05/23/18 08:27 Pulse Ox 99 05/23/18 08:00 I&O - Last 24 hours: Intake & Output 05/22/18 05/23/18 05/23/18 22:59 06:59 14:59 Intake Total 750 1000 Output Total 1000 975 Balance -250 25 Lab Results - Last 24 hrs: Laboratory Results - last 24 hr 05/22/18 05/22/18 05/22/18 Range/Units 12:11 17:26 20:49 WBC (4.0-11.0) K/uL RBC (4.50-5.90) M/uL Hgb (13.0-17.0) g/dL Hct (38.0-50.0) % MCV (80.0-98.0) fL MCH (27.0-32.0) pg MCHC (31.0-37.0) g/dL RDW Std Deviation (28.0-62.0) fl RDW Coeff of Tre (11.0-15.0) % Plt Count (150-400) K/uL MPV (7.40-12.00) fL Add Manual Diff Neutrophils % (Manual) (48.0-80.0) % Band Neutrophils % % Lymphocytes % (Manual) (16.0-40.0) % Monocytes % (Manual) (0.0-15.0) % Eosinophils % (Manual) (0.0-7.0) % Metamyelocytes % % Nucleated RBC % /100WBC Absolute Seg Neuts (1.4-5.7) Band Neutrophils # Lymphocytes # (Manual) (0.6-2.4) Monocytes # (Manual) (0.0-0.8) Eosinophils # (Manual) (0.0-0.7) Absolute Metamyelocyte Nucleated RBCs # K/uL Sodium (136-148) mmol/L Potassium (3.5-5.1) mmol/L Chloride (98-107) mmol/L Carbon Dioxide (21.0-32.0) mmol/L BUN (7.0-18.0) mg/dL Creatinine (0.8-1.3) mg/dL Est Cr Clr Drug Dosing Estimated GFR (MDRD) ml/min Glucose (74-106) mg/dL POC Glucose 98 162 H 142 H (60-110) mg/dL Calcium (8.5-10.1) mg/dL Magnesium (1.8-2.4) mg/dL Total Bilirubin (0.2-1.0) mg/dL AST (15-37) IU/L ALT (14-63) IU/L Alkaline Phosphatase (46-116) U/L Total Protein (6.4-8.2) g/dL Albumin (3.4-5.0) g/dL Globulin (2.6-4.0) g/dL Albumin/Globulin Ratio (0.9-1.6) H. pylori IgG Antibody (NEG) 05/23/18 05/23/18 05/23/18 Range/Units 04:21 04:21 05:21 WBC 8.25 (4.0-11.0) K/uL RBC 3.46 L (4.50-5.90) M/uL Hgb 9.3 L (13.0-17.0) g/dL Hct 30.7 L (38.0-50.0) % MCV 88.7 (80.0-98.0) fL MCH 26.9 L (27.0-32.0) pg MCHC 30.3 L (31.0-37.0) g/dL RDW Std Deviation 54.8 (28.0-62.0) fl RDW Coeff of Tre 17 H (11.0-15.0) % Plt Count 204 (150-400) K/uL MPV 9.20 (7.40-12.00) fL Add Manual Diff YES Neutrophils % (Manual) 71 (48.0-80.0) % Band Neutrophils % 2 % Lymphocytes % (Manual) 19 (16.0-40.0) % Monocytes % (Manual) 5 (0.0-15.0) % Eosinophils % (Manual) 1 (0.0-7.0) % Metamyelocytes % 2 % Nucleated RBC % 0.0 /100WBC Absolute Seg Neuts 5.9 H (1.4-5.7) Band Neutrophils # 0.2 Lymphocytes # (Manual) 1.6 (0.6-2.4) Monocytes # (Manual) 0.4 (0.0-0.8) Eosinophils # (Manual) 0.1 (0.0-0.7) Absolute Metamyelocyte 0.2 Nucleated RBCs # 0 K/uL Sodium 143 (136-148) mmol/L Potassium 4.0 (3.5-5.1) mmol/L Chloride 108 H (98-107) mmol/L Carbon Dioxide 28.0 (21.0-32.0) mmol/L BUN 15 (7.0-18.0) mg/dL Creatinine 1.1 (0.8-1.3) mg/dL Est Cr Clr Drug Dosing TNP Estimated GFR (MDRD) > 60.0 ml/min Glucose 65 L (74-106) mg/dL POC Glucose (60-110) mg/dL Calcium 8.7 (8.5-10.1) mg/dL Magnesium 1.9 (1.8-2.4) mg/dL Total Bilirubin 0.3 (0.2-1.0) mg/dL AST 19 (15-37) IU/L ALT 47 (14-63) IU/L Alkaline Phosphatase 52 (46-116) U/L Total Protein 6.2 L (6.4-8.2) g/dL Albumin 2.0 L (3.4-5.0) g/dL Globulin 4.2 H (2.6-4.0) g/dL Albumin/Globulin Ratio 0.5 L (0.9-1.6) H. pylori IgG Antibody NEGATIVE (NEG) 05/23/18 Range/Units 07:30 WBC (4.0-11.0) K/uL RBC (4.50-5.90) M/uL Hgb (13.0-17.0) g/dL Hct (38.0-50.0) % MCV (80.0-98.0) fL MCH (27.0-32.0) pg MCHC (31.0-37.0) g/dL RDW Std Deviation (28.0-62.0) fl RDW Coeff of Tre (11.0-15.0) % Plt Count (150-400) K/uL MPV (7.40-12.00) fL Add Manual Diff Neutrophils % (Manual) (48.0-80.0) % Band Neutrophils % % Lymphocytes % (Manual) (16.0-40.0) % Monocytes % (Manual) (0.0-15.0) % Eosinophils % (Manual) (0.0-7.0) % Metamyelocytes % % Nucleated RBC % /100WBC Absolute Seg Neuts (1.4-5.7) Band Neutrophils # Lymphocytes # (Manual) (0.6-2.4) Monocytes # (Manual) (0.0-0.8) Eosinophils # (Manual) (0.0-0.7) Absolute Metamyelocyte Nucleated RBCs # K/uL Sodium (136-148) mmol/L Potassium (3.5-5.1) mmol/L Chloride (98-107) mmol/L Carbon Dioxide (21.0-32.0) mmol/L BUN (7.0-18.0) mg/dL Creatinine (0.8-1.3) mg/dL Est Cr Clr Drug Dosing Estimated GFR (MDRD) ml/min Glucose (74-106) mg/dL POC Glucose 87 (60-110) mg/dL Calcium (8.5-10.1) mg/dL Magnesium (1.8-2.4) mg/dL Total Bilirubin (0.2-1.0) mg/dL AST (15-37) IU/L ALT (14-63) IU/L Alkaline Phosphatase (46-116) U/L Total Protein (6.4-8.2) g/dL Albumin (3.4-5.0) g/dL Globulin (2.6-4.0) g/dL Albumin/Globulin Ratio (0.9-1.6) H. pylori IgG Antibody (NEG) SHILOH Results - Last 24 hrs: Microbiology 05/20/18 00:25 Aerobic Blood Culture - Preliminary Blood - Venous NO GROWTH AFTER 3 DAYS Anaerobic Blood Culture - Final 05/20/18 00:35 Aerobic Blood Culture - Preliminary Blood - Venous - Lab Draw NO GROWTH AFTER 3 DAYS Anaerobic Blood Culture - Preliminary NO GROWTH AFTER 3 DAYS 05/22/18 17:00 Stool Occult Blood (SHILOH) - Final Stool / Feces NEGATIVE OCCULT BLOOD Med Orders - Current: Current Medications Acetaminophen (Tylenol) 650 mg PO Q6H PRN PRN Reason: Pain Albuterol (Proventil Neb Soln) 2.5 mg NEB TIDRT PRN PRN Reason: Shortness of Breath Apixaban (Eliquis) 5 mg PO BID [facility] Last Admin: 05/23/18 08:28 Dose: 5 mg Clindamycin HCl (Cleocin) 300 mg PO Q8H [facility] Last Admin: 05/23/18 08:28 Dose: 300 mg Diltiazem HCl (Cardizem Cd) 240 mg PO DAILY [facility] Last Admin: 05/23/18 08:26 Dose: 240 mg Finasteride (Proscar) 5 mg PO DAILY [facility] Last Admin: 05/23/18 08:26 Dose: 5 mg Fish Oil (Fish Oil) 1 gm PO DAILY [facility] Last Admin: 05/23/18 08:28 Dose: 1 gm Gabapentin (Neurontin) 1,600 mg PO BID [facility] Last Admin: 05/23/18 08:27 Dose: 1,600 mg Insulin Aspart (Novolog) 0 unit SUBCUT ACBED [facility]; Protocol Last Admin: 05/23/18 07:32 Dose: Not Given Metoprolol Tartrate (Lopressor) 50 mg PO BID [facility] Last Admin: 05/23/18 08:27 Dose: 50 mg Midodrine (Midodrine) 2.5 mg PO BID@08,14 [facility] Last Admin: 05/23/18 08:29 Dose: 2.5 mg Morphine Sulfate (Morphine) 2 mg IVPUSH Q2H PRN PRN Reason: Pain (severe 7-10) Last Admin: 05/22/18 21:08 Dose: 2 mg Morphine Sulfate (Morphine) 15 mg PO Q6H PRN PRN Reason: Pain Last Admin: 05/21/18 20:41 Dose: 15 mg Oxycodone HCl (Oxycodone) 5 mg PO Q4H PRN PRN Reason: Pain (moderate 4-6) Last Admin: 05/22/18 20:43 Dose: 5 mg Pantoprazole Sodium (Protonix) 40 mg PO ACBREAKFAST [facility] Last Admin: 05/23/18 08:34 Dose: Not Given Breo Fluticasone/ (Vilanterol) 1 each INH DAILY [facility] Last Admin: 05/23/18 08:34 Dose: 1 each Spiriva Respimat 2 each INH DAILY [facility] Last Admin: 05/23/18 08:34 Dose: 2 each Polysaccharide Iron Complex (Ferrex 150) 150 mg PO DAILY [facility] Last Admin: 05/23/18 08:34 Dose: Not Given Prednisone (Prednisone) 20 mg PO DAILY [facility] Last Admin: 05/23/18 08:28 Dose: 20 mg Trazodone HCl (Trazodone) 50 mg PO BEDTIME [facility] Last Admin: 05/22/18 20:43 Dose: 50 mg Vancomycin HCl (Pharmacy To Dose - Vancomycin) 1 dose .XX ASDIRECTED [facility] Discontinued Medications Acetaminophen (Tylenol Extra Strength) 1,000 mg PO BEDTIME STA Stop: 05/20/18 01:49 Last Admin: 05/20/18 01:51 Dose: Not Given Acetaminophen (Tylenol) 650 mg PO NOW ONE Stop: 05/20/18 01:50 Last Admin: 05/20/18 01:53 Dose: 650 mg Albuterol (Proventil Neb Soln) 2.5 mg INH DAILY [facility] Last Admin: 05/20/18 09:57 Dose: 2.5 mg Albuterol (Proventil Neb Soln) 2.5 mg INH TID [facility] Last Admin: 05/20/18 14:10 Dose: 2.5 mg Albuterol (Proventil Neb Soln) 2.5 mg INH TIDRT DANIELITO Albuterol (Proventil Neb Soln) 2.5 mg NEB TIDRT [facility] Last Admin: 05/22/18 06:03 Dose: Not Given Hydrochlorothiazide (Hydrochlorothiazide) 25 mg PO DAILY [facility] Last Admin: 05/20/18 09:26 Dose: Not Given Clindamycin Phosphate 300 mg/ (Premix) 50 mls @ 150 mls/hr IV ONETIME ONE Stop: 05/20/18 00:28 Last Admin: 05/20/18 00:36 Dose: 150 mls/hr Vancomycin HCl 1 gm/ Sodium (Chloride) 250 mls @ 250 mls/hr IV ONETIME ONE Stop: 05/20/18 01:08 Last Admin: 05/20/18 00:59 Dose: 250 mls/hr Sodium Chloride (Normal Saline) 1,000 mls @ 125 mls/hr IV STAT [facility] Last Admin: 05/20/18 01:43 Dose: 125 mls/hr Sodium Chloride (Normal Saline) 1,000 mls @ 50 mls/hr IV ASDIRECTED [facility] Last Admin: 05/21/18 17:29 Dose: 50 mls/hr Vancomycin HCl 1 gm/ Sodium (Chloride) 250 mls @ 166 mls/hr IV ONETIME ONE Stop: 05/20/18 04:30 Last Admin: 05/20/18 03:06 Dose: 166 mls/hr Vancomycin HCl 1 gm/ Sodium (Chloride) 250 mls @ 166 mls/hr IV Q12H [facility] Last Admin: 05/22/18 07:01 Dose: Not Given Clindamycin Phosphate 300 mg/ (Premix) 50 mls @ 150 mls/hr IV Q8H [facility] Last Admin: 05/22/18 04:17 Dose: 150 mls/hr Iron Sucrose 100 mg/ Sodium (Chloride) 105 mls @ 210 mls/hr IV ONETIME ONE Stop: 05/21/18 16:51 Last Admin: 05/21/18 17:38 Dose: 210 mls/hr Vancomycin HCl 0.75 gm/ Sodium (Chloride) 250 mls @ 166.667 mls/hr IV Q12H [facility] Last Admin: 05/22/18 08:51 Dose: Not Given Vancomycin HCl 1 gm/ Sodium (Chloride) 250 mls @ 250 mls/hr IV Q24H [facility] Last Admin: 05/22/18 09:14 Dose: Not Given Iron Sucrose 300 mg/ Sodium (Chloride) 115 mls @ 76.667 mls/hr IV ONETIME ONE Stop: 05/22/18 12:36 Last Admin: 05/22/18 12:15 Dose: 76.667 mls/hr Insulin Aspart (Novolog) 0 unit SUBCUT ACBREAKFASTANDBED [facility]; Protocol Midodrine (Midodrine) 2.5 mg PO BID [facility] Last Admin: 05/21/18 09:16 Dose: Not Given Morphine Sulfate (Morphine) 2 mg IVPUSH ONETIME ONE Stop: 05/20/18 00:10 Last Admin: 05/20/18 00:35 Dose: 2 mg
== END 2018-05-23 11:15 | disposition home or self-care (01) | DRG 603 ==
LOC: MW.ED 22:44 → MW.ICU 05-20 01:23
PROVIDERS: ADMIT Internal Medicine; ATTEND Internal Medicine
DX: L03.115 Cellulitis of right lower limb (principal); I13.0 Hypertensive heart and chronic kidney disease with heart failure and stage 1 through stage 4 chronic kidney disease, or unspecified chronic kidney disease; I42.9 Cardiomyopathy, unspecified; I50.9 Heart failure, unspecified; N18.9 Chronic kidney disease, unspecified; N18.3 Chronic kidney disease, stage 3 (moderate); D50.9 Iron deficiency anemia, unspecified; E11.22 Type 2 diabetes mellitus with diabetic chronic kidney disease; M81.8 Other osteoporosis without current pathological fracture; T38.0X5A Adverse effect of glucocorticoids and synthetic analogues, initial encounter; E11.42 Type 2 diabetes mellitus with diabetic polyneuropathy; Y92.019 Unspecified place in single-family (private) house as the place of occurrence of the external cause; M81.0 Age-related osteoporosis without current pathological fracture; M06.9 Rheumatoid arthritis, unspecified; I48.91 Unspecified atrial fibrillation; I25.2 Old myocardial infarction; K21.9 Gastro-esophageal reflux disease without esophagitis; F32.9 Major depressive disorder, single episode, unspecified; Z86.19 Personal history of other infectious and parasitic diseases; Z88.8 Allergy status to other drugs, medicaments and biological substances; Z79.899 Other long term (current) drug therapy; Z90.5 Acquired absence of kidney; Z85.820 Personal history of malignant melanoma of skin
CPT/HCPCS: 36415; 71045; 80053; 81001; 85025; 87040 ×2; 96365; 96367; 96375; 99284; J2270; J3370; J3490; J7050; 80061; 80202; 82272; 82728; 82962; 83036; 83550; 83735; 84100; 85045; 86140; 86677; 94640; A9270-GY; J1756; J1815-GY; J7030; J7040

== ENCOUNTER 2018-06-22 15:06 | Inpatient (IN) | payer MEDICARE, OTHER ==
[2018-06-22] MEDS ORDERED: Sodium Chloride 0.9% 1,000 ML IV ONE (15:57)
[2018-06-22] MEDS ORDERED: Sodium Chloride 0.9% 10 ML Syringe FLUSH PRN (15:57)
[2018-06-22] MEDS ORDERED: Albuterol/Ipratropium 3.0-0.5 MG/3 ML Neb Soln NEB ONE (15:57)
[2018-06-22] MEDS ORDERED: Sodium Chloride 0.9% 2.5 ML Syringe FLUSH PRN (15:57)
[2018-06-22] MEDS ORDERED: methylPREDNISolone Sodium Succinate 125 MG/2 ML SDV IVPUSH ONE (15:58)
--- NOTE | 2018-06-22 16:07 | EDM.PDOC ---
ED HPI GENERAL MEDICAL PROBLEM - General Chief Complaint: Cardiovascular Problem Stated Complaint: LIGHT HEADED Time Seen by Provider: 06/22/18 15:12 Source of Information: Reports: Patient History Limitations: Reports: No Limitations - History of Present Illness INITIAL COMMENTS - FREE TEXT/NARRATIVE: History of present illness: []Patient states he's been having multiple syncopal episodes daily for 4 days. He gives an example of he'll be holding something and he will drop it and when it hits the ground it straddles him awake. He denies any history of similar symptoms in the past, seizures, chest pain, fevers, chills, vomiting, diarrhea or headaches. Patient has been short of breath he has bronchial aspergillosis and is on steroids. Patient states that he has an abnormality in his brain on the right side that was diagnosed by CT scan in [place]. He denies having any falls or hitting his head. He should also states he has kidney disease but is not currently on dialysis. Review of systems: As per history of present illness and below otherwise all systems reviewed and negative. Past medical history: As per history of present illness and as reviewed below otherwise noncontributory. Surgical history: As per history of present illness and as reviewed below otherwise noncontributory. Social history: No reported history of drug or alcohol abuse. Family history: As per history of present illness and as reviewed below otherwise noncontributory. Physical exam: General: Well developed, well nourished in NAD HEENT: Atraumatic, normocephalic, pupils reactive, negative for conjunctival pallor or scleral icterus, mucous membranes moist, throat clear, neck supple, nontender, trachea midline. Lungs: Clear to auscultation, breath sounds equal bilaterally, chest nontender. Heart: S1S2, regular, negative for clicks, rubs, or JVD. Abdomen: NABS, Soft, nondistended, nontender. Negative for masses or hepatosplenomegaly. Negative for costovertebral tenderness. Pelvis: Stable nontender. Genitourinary: Deferred. Rectal: Deferred. Extremities: Atraumatic, negative for cords or calf pain. Neurovascular unremarkable. Neuro: Awake, alert, oriented. Cranial nerves II through XII unremarkable. Cerebellum unremarkable. Motor and sensory unremarkable throughout. Exam nonfocal. Skin:warm and dry Diagnostics: CBC, chemistry, CT head-, chest x-ray- prominent space in the right paratracheal space consistent possible adenopathy and a possible left lower lung nodule Therapeutics: DuoNeb, Kayexalate, insulin, glucose, calcium chloride and sodium bicarbonate. ED Course: Respiratory therapy witnessed an episode where he slumped over his head for a brief second is in consciousness and regaining consciousness immediately. Discussed case with Dr. Wells recommends admitting the patient for observation and doing an EEG in the morning. Dr. Bo is aware and agrees to admit this patient. Results of CT head and chest x-ray recommended CT chest and MRI of brain for further valuation. Impression: Syncope, hyperkalemia, renal insufficiency, Prescriptions: Plan: Admit for obvious for further workup. Definitive disposition and diagnosis as appropriate pending reevaluation and review of above. Throat Pain Score (Numeric/FACES): 5 - Related Data Allergies Allergy/AdvReac Type Severity Reaction Status Date / Time itraconazole [From Sporanox] Allergy Unknown Confusion Verified 06/22/18 15:51 levofloxacin [From Levaquin] Allergy Unknown Other Verified 06/22/18 15:51 Home Meds: Home Meds Finasteride 5 mg PO DAILY 01/11/16 [History] Fluticasone/Vilanterol [Breo Ellipta 200-25 Mcg INH] 1 inh INH DAILY 01/11/16 [ History] Gabapentin [Neurontin] 1,600 mg PO BID 01/11/16 [History] Testosterone [Androgel] 4 pump TOP DAILY 01/11/16 [History] predniSONE [Prednisone] 20 mg PO DAILY 01/11/16 [History] Tiotropium [place] [Spiriva Respimat] 2 puff INH BID 01/12/16 [History] Morphine 15 mg PO Q6H PRN #10 tablet 01/15/16 [Rx] Albuterol Sulfate 2.5 mg IH DAILY 05/19/18 [History] Apixaban [Eliquis] 5 mg PO BID 05/19/18 [History] Diltiazem HCl [Diltiazem 24Hr ER] 240 mg PO DAILY 05/19/18 [History] Icosapent Ethyl [Vascepa] 1 gm PO DAILY 05/19/18 [History] Pantoprazole [ProTONIX] 40 mg PO DAILY 05/19/18 [History] Clindamycin HCl 300 mg PO Q8H 05/20/18 [History] Metoprolol Tartrate 50 mg PO BID 05/20/18 [History] Midodrine 2.5 mg PO BID 05/20/18 [History] traZODone HCl [Trazodone HCl] 50 mg PO BEDTIME 05/20/18 [History] Clindamycin HCl [Cleocin] 300 mg PO Q8H 7 Days cap 05/23/18 [Rx] Iron Polysaccharides Complex [Ferrex 150] 150 mg PO DAILY 30 Days #30 cap [Rx] Past Medical History HEENT History: Reports: Cataract Other HEENT History: dental fillings due to caries; recent tooth fracture Cardiovascular History: Reports: Afib, Cardiomyopathy, Heart Failure, Hypertension, HI Respiratory History: Reports: Asthma, Bronchitis, Recurrent, PE, Pneumonia, Recurrent, Other (See Below) Other Respiratory History: Chronic pulmonary aspergillosis, 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 bilateral achilles tendon ruptures and repair. 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 No explantation- -they apparently just treated him with IV abx for months. - Past Surgical History HEENT Surgical History: Reports: Cataract Surgery Respiratory Surgical History: Reports: Lung Resection Other Respiratory Surgeries/Procedures: intubated last Feb 2018 and transfered to [place] Musculoskeletal Surgical History: Reports: Shoulder Surgery, Other (See Below) Other Musculoskeletal Surgeries/Procedures:: L shoulder and left hip surgery Social & Family History - Family History Family Medical History: Noncontributory - Tobacco Use Smoking Status *Q: Never Smoker - Caffeine Use Caffeine Use: Reports: Coffee - Recreational Drug Use Recreational Drug Use: No - Living Situation & Occupation Living situation: Reports: Single Occupation: Disabled ED ROS GENERAL - Review of Systems Review Of Systems: ROS reveals no pertinent complaints other than HPI. ED EXAM, GENERAL - Physical Exam Exam: See Below (See history of present illness) Course - Vital Signs Last Recorded V/S: Last Vital Signs Temp 98.7 F 06/22/18 18:18 Pulse 64 06/22/18 18:18 Resp 13 06/22/18 18:18 BP 118/66 06/22/18 18:18 Pulse Ox 93 L 06/22/18 18:18 - Orders/Labs/Meds Orders: Active Orders 24 hr Category Date Time Status Patient Status [ADT] Stat ADT 06/22/18 17:31 Active Cardiac Monitoring [RC] . DIRECTED Care 06/22/18 16:23 Active EKG Documentation Completion [RC] STAT Care 06/22/18 16:04 Active Oxygen Therapy, ED [RC] ASDIRECTED Care 06/22/18 15:56 Active Pulse Oximetry [RC] ASDIRECTED Care 06/22/18 15:56 Active RT Aerosol Therapy [RC] ASDIRECTED Care 06/22/18 15:57 Active CULTURE BLOOD [BC] Stat Lab 06/22/18 16:16 Received CULTURE BLOOD [BC] Stat Lab 06/22/18 16:30 Received Sodium Chloride 0.9% [Saline Flush] Med 06/22/18 15:57 Active 10 ml FLUSH ASDIRECTED PRN Sodium Chloride 0.9% [Saline Flush] Med 06/22/18 15:57 Active 2.5 ml FLUSH ASDIRECTED PRN Blood Culture x2 Reflex Set [OM.PC] Stat Oth 06/22/18 15:57 Ordered Saline Lock Insert [OM.PC] Stat Oth 06/22/18 15:56 Ordered Medication Orders Sodium Chloride (Saline Flush) 10 ml FLUSH ASDIRECTED PRN PRN Reason: Keep Vein Open Last Admin: 06/22/18 16:34 Dose: 10 ml Sodium Chloride (Saline Flush) 2.5 ml FLUSH ASDIRECTED PRN PRN Reason: Keep Vein Open Last Admin: 06/22/18 16:34 Dose: 2.5 ml Labs: Laboratory Tests 06/22/18 06/22/18 06/22/18 Range/Units 16:16 16:16 16:16 Lactate 1.5 (0.20-2.00) mmol/L Sodium 132 L (136-148) mmol/L Potassium 5.9 H (3.5-5.1) mmol/L Chloride 95 L (98-107) mmol/L Carbon Dioxide 24.3 (21.0-32.0) mmol/L BUN 83 H (7.0-18.0) mg/dL Creatinine 3.0 H (0.8-1.3) mg/dL Est Cr Clr Drug Dosing 23.35 mL/min Estimated GFR (MDRD) 21.6 ml/min Glucose 102 (74-106) mg/dL Calcium 9.5 (8.5-10.1) mg/dL Total Bilirubin 0.5 (0.2-1.0) mg/dL AST 34 (15-37) IU/L ALT 30 (14-63) IU/L Alkaline Phosphatase 56 (46-116) U/L Troponin I < 0.050 (0.000-0.056) ng/mL Total Protein 7.6 (6.4-8.2) g/dL Albumin 3.6 (3.4-5.0) g/dL Globulin 4.0 (2.6-4.0) g/dL Albumin/Globulin Ratio 0.9 (0.9-1.6) Meds: Medications Generic Name Dose Route Start Last Admin Trade Name Freq PRN Reason Stop Dose Admin Sodium Chloride 10 ml 06/22/18 15:57 06/22/18 16:34 Saline Flush FLUSH 10 ml ASDIRECTED PRN Administration Keep Vein Open Sodium Chloride 2.5 ml 06/22/18 15:57 06/22/18 16:34 Saline Flush FLUSH 2.5 ml ASDIRECTED PRN Administration Keep Vein Open Discontinued Medications Generic Name Dose Route Start Last Admin Trade Name Freq PRN Reason Stop Dose Admin Albuterol/Ipratropium 3 ml 06/22/18 15:57 06/22/18 16:02 Duoneb 3.0-0.5 Mg/3 Ml NEB 06/22/18 15:58 3 ml ONETIME ONE Administration Calcium Chloride 1 gm 06/22/18 17:43 06/22/18 18:07 Calcium Chloride 10% IVPUSH 06/22/18 17:44 1 gm ONETIME ONE Administration Dextrose/Water 50 ml 06/22/18 17:43 06/22/18 17:55 Dextrose 50% In Water IVPUSH 06/22/18 17:44 50 ml ONETIME ONE Administration Sodium Chloride 1,000 mls @ 999 mls/hr 06/22/18 15:57 06/22/18 16:34 Normal Saline IV 06/22/18 16:57 999 mls/hr .Bolus ONE Administration Insulin Human Regular 10 unit 06/22/18 17:30 06/22/18 17:47 Novolin R IVPUSH 06/22/18 17:31 Not Given ONETIME ONE Protocol Insulin Human Regular 10 unit 06/22/18 17:43 06/22/18 17:45 Novolin R IVPUSH 06/22/18 17:44 10 units ONETIME ONE Administration Protocol Methylprednisolone Sodium Succinate 125 mg 06/22/18 15:58 06/22/18 16:34 Solu-Medrol IVPUSH 06/22/18 15:59 125 mg ONETIME ONE Administration Sodium Bicarbonate 50 meq 06/22/18 17:43 06/22/18 17:55 Sodium Bicarbonate 8.4% IVPUSH 06/22/18 17:44 50 meq ONETIME ONE Administration Sodium Polystyrene Sulfonate 15 gm 06/22/18 17:30 06/22/18 17:43 Kayexalate PO 06/22/18 17:31 15 gm ONETIME ONE Administration Departure - Departure Time of Disposition: 18:28 Disposition: Refer to Observation Condition: Fair Clinical Impression: Syncopal episodes, Hyperkalemia, Chronic renal insufficiency, Abnormal finding on chest xray - My Orders Last 24 Hours: My Active Orders 06/22/18 15:56 Oxygen Therapy, ED [RC] ASDIRECTED Pulse Oximetry [RC] ASDIRECTED Saline Lock Insert [OM.PC] Stat 06/22/18 15:57 RT Aerosol Therapy [RC] ASDIRECTED Sodium Chloride 0.9% [Saline Flush] 10 ml FLUSH ASDIRECTED PRN Sodium Chloride 0.9% [Saline Flush] 2.5 ml FLUSH ASDIRECTED PRN Blood Culture x2 Reflex Set [OM.PC] Stat 06/22/18 16:04 EKG Documentation Completion [RC] STAT 06/22/18 16:16 CULTURE BLOOD [BC] Stat 06/22/18 16:23 Cardiac Monitoring [RC] . DIRECTED 06/22/18 16:30 CULTURE BLOOD [BC] Stat 06/22/18 17:31 Patient Status [ADT] Stat - Assessment/Plan Last 24 Hours: My Active Orders 06/22/18 15:56 Oxygen Therapy, ED [RC] ASDIRECTED Pulse Oximetry [RC] ASDIRECTED Saline Lock Insert [OM.PC] Stat 06/22/18 15:57 RT Aerosol Therapy [RC] ASDIRECTED Sodium Chloride 0.9% [Saline Flush] 10 ml FLUSH ASDIRECTED PRN Sodium Chloride 0.9% [Saline Flush] 2.5 ml FLUSH ASDIRECTED PRN Blood Culture x2 Reflex Set [OM.PC] Stat 06/22/18 16:04 EKG Documentation Completion [RC] STAT 06/22/18 16:16 CULTURE BLOOD [BC] Stat 06/22/18 16:23 Cardiac Monitoring [RC] . DIRECTED 06/22/18 16:30 CULTURE BLOOD [BC] Stat 06/22/18 17:31 Patient Status [ADT] Stat
--- NOTE | 2018-06-22 17:14 | CT ---
INDICATION: Lightheaded. Altered mental status. TECHNIQUE: Noncontrast axial images through the head with coronal and sagittal reconstructions. COMPARISON: None. FINDINGS: In the periventricular region of the right occipital lobe on axial image 28, there is a subtle focus of slightly increased attenuation which measures 7 x 9 mm. This is concerning for subacute hemorrhage. There there is not appear to be significant associated mass effect. No other areas of abnormally increased parenchymal attenuation are seen. There are scattered periventricular and subcortical low-attenuation white matter changes which are suggestive of chronic small vessel disease. There is slightly increased attenuation seen along the tentorium on the right, which is concerning for a small amount of extra-axial hemorrhage. No other sites of extra-axial hemorrhage are seen. No abnormal dilatation of the CSF spaces. No acute bony abnormality is identified. Both maxillary sinuses are atelectatic, with mucosal thickening seen throughout the right maxillary sinus. No appreciable air-fluid level. The remainder of the paranasal sinuses are essentially clear. Mastoids are clear. IMPRESSION: 1. There is a subtle focus of increased attenuation seen in the periventricular white matter of the right occipital lobe, which could represent a small focus of subacute hemorrhage. In addition, there is also slightly increased attenuation seen along the tentorium on the right, which could also be related to a small amount of subacute hemorrhage. If there has been recent trauma, these findings could be posttraumatic in nature. If there is no recent history trauma, then MRI is recommended for further evaluation of these findings. 2. Other findings as described above. Results were discussed with Dr. Guevara at 5:05 p.m. on 06/22/2018. Dictated by Shawn Deleon MD @ 06/22/2018 5:12:09 PM Please note that all CT scans at this facility use dose modulation, iterative reconstruction, and/or weight-based dosing when appropriate to reduce radiation dose to as low as reasonably achievable. Dictated by: Shawn Deleon MD @ 06/22/2018 17:12:15 (Electronically Signed)
[2018-06-22] MEDS ORDERED: Sodium Polystyrene Sulfonate 15 GM/60 ML Susp 60 ML Bot PO ONE (17:30)
[2018-06-22] MEDS ORDERED: Insulin Regular, Human 100 Units/ML 10 ML Vial IVPUSH ONE ×2 (17:30→17:43)
--- NOTE | 2018-06-22 17:35 | CR ---
INDICATION: Pain. Short of breath. TECHNIQUE: Portable upright AP chest. COMPARISON: 05/20/2018. FINDINGS: Stable mild cardiomegaly. There is abnormal soft tissue prominence of the right paratracheal stripe, which is concerning for adenopathy. Pulmonary vasculature is within normal limits. There is a questionable nodule laterally in the left lung base. No appreciable pleural fluid on this single view study. No pneumothorax. Degenerative changes are seen in the right shoulder and spine. Left shoulder arthroplasty. IMPRESSION: Abnormal prominence of the right paratracheal space, concerning for adenopathy. In addition, there is a possible nodule seen in the left lung base. Given these findings, further evaluation of the chest with a contrast-enhanced CT is recommended. Dictated by Shawn Deleon MD @ 06/22/2018 5:33:55 PM Dictated by: Shawn Deleon MD @ 06/22/2018 17:34:03 (Electronically Signed)
[2018-06-22] MEDS ORDERED: Sodium Bicarbonate 8.4% 50 MEQ/50 ML Syringe IVPUSH ONE (17:43)
[2018-06-22] MEDS ORDERED: Calcium Chloride 10% 1 GM/10 ML Syringe IVPUSH ONE (17:43)
[2018-06-22] MEDS ORDERED: 50% Dextrose in Water 50 ML Syringe IVPUSH ONE (17:43)
[2018-06-22] MEDS ORDERED: Acetaminophen 325 MG Tab PO PRN (18:23)
[2018-06-22] MEDS ORDERED: oxyCODONE 5 MG Tab PO PRN (18:23)
[2018-06-22] MEDS ORDERED: Ondansetron 4 MG/2 ML SDV IVPUSH PRN (18:23)
--- NOTE | 2018-06-22 18:38 | PCM.HP ---
<Lambert Jc - Last Filed: 06/22/18 18:33> H&P History of Present Illness - General Date of Service: 06/22/18 Admit Problem/Dx: Admission Diagnosis/Problem Admission Diagnosis/Problem Syncope Source of Information: Patient History Limitations: Reports: No Limitations - History of Present Illness Initial Comments - Free Text/Narative: This is a 58M with a medically complex history including A. 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 Patient tells me the first time this happened on Tuesday, he was doing his taxes, when he completely went limp for a second and then came back to consciousness. He thinks that he may have bit his tongue. Multiple similar episodes have occurred daily since then, two of which were witnessed by RT in the ER. CT scan shows a possible subacute hemorrhage in the right occiptal lobe. Patient says that he is aware of a lesion that was noted on a CT of his brain 20 years ago, which he says a follow up MRI was obtained for and he was told it was nothing, but can't recall further information about it. He also has an episode in 2009 when he had a TIA, where he says his entire right side was paralyzed briefly. Patient also endorses shortness of breath. He denies fever, chills, nausea or vomiting. He does have a history of chronic pain for which he is on morphine at home. He denies chest pain or palpitations. ER course: BMP K+ 5.9 CXR - nodule in the left lung base. Patient does have a history of aspergillosis CT findings as above VS - hypoxic on 4L O2 via [place] Throat Pain Score (Numeric/FACES): 5 - Related Data Allergies/Adverse Reactions: Allergies Allergy/AdvReac Type Severity Reaction Status Date / Time itraconazole [From Sporanox] Allergy Unknown Confusion Verified 06/22/18 15:51 levofloxacin [From Levaquin] Allergy Unknown Other Verified 06/22/18 15:51 Home Medications: Home Meds Finasteride 5 mg PO DAILY 01/11/16 [History] Fluticasone/Vilanterol [Breo Ellipta 200-25 Mcg INH] 1 inh INH DAILY 01/11/16 [ History] Gabapentin [Neurontin] 1,600 mg PO BID 01/11/16 [History] Testosterone [Androgel] 4 pump TOP DAILY 01/11/16 [History] predniSONE [Prednisone] 20 mg PO DAILY 01/11/16 [History] Tiotropium [place] [Spiriva Respimat] 2 puff INH BID 01/12/16 [History] Morphine 15 mg PO Q6H PRN #10 tablet 01/15/16 [Rx] Albuterol Sulfate 2.5 mg IH DAILY 05/19/18 [History] Apixaban [Eliquis] 5 mg PO BID 05/19/18 [History] Diltiazem HCl [Diltiazem 24Hr ER] 240 mg PO DAILY 05/19/18 [History] Icosapent Ethyl [Vascepa] 1 gm PO DAILY 05/19/18 [History] Pantoprazole [ProTONIX] 40 mg PO DAILY 05/19/18 [History] Clindamycin HCl 300 mg PO Q8H 05/20/18 [History] Metoprolol Tartrate 50 mg PO BID 05/20/18 [History] Midodrine 2.5 mg PO BID 05/20/18 [History] traZODone HCl [Trazodone HCl] 50 mg PO BEDTIME 05/20/18 [History] Clindamycin HCl [Cleocin] 300 mg PO Q8H 7 Days cap 05/23/18 [Rx] Iron Polysaccharides Complex [Ferrex 150] 150 mg PO DAILY 30 Days #30 cap [Rx] Past Medical History HEENT History: Reports: Cataract Other HEENT History: dental fillings due to caries; recent tooth fracture Cardiovascular History: Reports: Afib, Cardiomyopathy, Heart Failure, Hypertension, [place] Respiratory History: Reports: Asthma, Bronchitis, Recurrent, PE, Pneumonia, Recurrent, Other (See Below) Other Respiratory History: Chronic pulmonary aspergillosis, 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 bilateral achilles tendon ruptures and repair. 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 No explantation- -they apparently just treated him with IV abx for months. - Past Surgical History HEENT Surgical History: Reports: Cataract Surgery Respiratory Surgical History: Reports: Lung Resection Other Respiratory Surgeries/Procedures: intubated last Feb 2018 and transfered to [place] Musculoskeletal Surgical History: Reports: Shoulder Surgery, Other (See Below) Other Musculoskeletal Surgeries/Procedures:: L shoulder and left hip surgery Social & Family History - Family History Family Medical History: Noncontributory - Tobacco Use Smoking Status *Q: Never Smoker - Caffeine Use Caffeine Use: Reports: Coffee - Recreational Drug Use Recreational Drug Use: No - Living Situation & Occupation Living situation: Reports: Single Occupation: Disabled H&P Review of Systems - Review of Systems: Review Of Systems: ROS reveals no pertinent complaints other than HPI. Exam - Exam Exam: See Below - Vital Signs Vital Signs: Last Vital Signs Temp 37.1 C 06/22/18 18:18 Pulse 64 06/22/18 18:18 Resp 13 06/22/18 18:18 BP 118/66 06/22/18 18:18 Pulse Ox 93 L 06/22/18 18:18 Weight: 68.039 kg - Exam Quality Assessment: Supplemental Oxygen General: Alert, Oriented, 4 HEENT: PERRLA, Hearing Intact, Mucosa Moist & [place], Nares Patent, Normal Nasal Septum, Posterior Pharynx Clear, Conjunctiva Clear, EOMI, EACs Clear, TMs Clear Neck: Supple, Trachea Midline, 2 Lungs: Clear to Auscultation, Normal Respiratory Effort Cardiovascular: Regular Rate, Regular Rhythm GI/Abdominal Exam: Normal Bowel Sounds, Soft, Non-Tender, No Organomegaly, No Distention, No Abnormal Bruit, No Mass, Pelvis Stable Extremities: Normal Inspection, Normal Range of Motion, Non-Tender, No Pedal Edema, Normal Capillary Refill Peripheral Pulses: 2+: Dorsalis Pedis (L), Dorsalis Pedis (R) Skin: Warm, Dry, Intact Neurological: Cranial Nerves Intact, Reflexes Equal Bilateral Neuro Extensive - Mental Status: Alert, Oriented x3, Normal Mood/Affect, Normal Cognition Neuro Extensive - Motor, Sensory, Reflexes: CN II-XII Intact, Normal Gait, Normal Reflexes DTR: 2+: Achilles (L), Achilles (R) Psychiatric: Alert, Normal Affect, Normal Mood - Patient Data Lab Results Last 24 hrs: Laboratory Results - last 24 hr 06/22/18 06/22/18 06/22/18 Range/Units 16:16 16:16 16:16 Lactate 1.5 (0.20-2.00) mmol/L Sodium 132 L (136-148) mmol/L Potassium 5.9 H (3.5-5.1) mmol/L Chloride 95 L (98-107) mmol/L Carbon Dioxide 24.3 (21.0-32.0) mmol/L BUN 83 H (7.0-18.0) mg/dL Creatinine 3.0 H (0.8-1.3) mg/dL Est Cr Clr Drug Dosing 23.35 mL/min Estimated GFR (MDRD) 21.6 ml/min Glucose 102 (74-106) mg/dL Calcium 9.5 (8.5-10.1) mg/dL Total Bilirubin 0.5 (0.2-1.0) mg/dL AST 34 (15-37) IU/L ALT 30 (14-63) IU/L Alkaline Phosphatase 56 (46-116) U/L Troponin I < 0.050 (0.000-0.056) ng/mL Total Protein 7.6 (6.4-8.2) g/dL Albumin 3.6 (3.4-5.0) g/dL Globulin 4.0 (2.6-4.0) g/dL Albumin/Globulin Ratio 0.9 (0.9-1.6) Result Diagrams: 06/22/18 16:16 Problem List Initiated/Reviewed/Updated: Yes Orders Last 24hrs: Active Orders 24 hr Category Date Time Status Patient Status [ADT] Stat ADT 06/22/18 17:31 Active Antiembolic Devices [RC] PER UNIT ROUTINE Care 06/22/18 18:24 Ordered Cardiac Monitoring [RC] . DIRECTED Care 06/22/18 16:23 Active Cardiac Monitoring [RC] CONTINUOUS Care 06/22/18 18:23 Ordered EEG Awake Drowsy [RC] ROUTINE Care 06/23/18 08:00 Ordered EEG Sleep Deprivated [RC] ROUTINE Care 06/23/18 08:00 Inactive EKG Documentation Completion [RC] STAT Care 06/22/18 16:04 Active Oxygen Therapy [RC] PRN Care 06/22/18 18:23 Ordered Oxygen Therapy, ED [RC] ASDIRECTED Care 06/22/18 15:56 Active Pulse Oximetry [RC] ASDIRECTED Care 06/22/18 15:56 Active RT Aerosol Therapy [RC] ASDIRECTED Care 06/22/18 15:57 Active RT Aerosol Therapy [RC] ASDIRECTED Care 06/22/18 18:25 Ordered Up With Assistance [RC] ASDIRECTED Care 06/22/18 18:23 Ordered VTE/DVT Education [RC] PER UNIT ROUTINE Care 06/22/18 18:23 Ordered Vital Signs [RC] Q4H Care 06/22/18 18:23 Ordered Heart Healthy Diet [DIET] Diet 06/22/18 Lunch Ordered Brain wo Cont [MR] Routine Exams 06/22/18 18:26 Ordered BMP [BASIC METABOLIC PANEL,BMP] [CHEM] Stat Lab 06/22/18 18:26 Ordered CULTURE BLOOD [BC] Stat Lab 06/22/18 16:16 Received CULTURE BLOOD [BC] Stat Lab 06/22/18 16:30 Received Acetaminophen [Tylenol] Med 06/22/18 18:23 Ordered 650 mg PO Q4H PRN Albuterol/Ipratropium [DuoNeb 3.0-0.5 MG/3 ML] Med 06/22/18 18:23 Ordered 3 ml NEB Q4HRRT PRN Apixaban [Eliquis] Med 06/22/18 21:00 Ordered 5 mg PO BID Diltiazem HCl [Diltiazem 24Hr ER] Med 06/23/18 09:00 Ordered 240 mg PO DAILY Finasteride [Proscar] Med 06/23/18 09:00 Ordered 5 mg PO DAILY Fluticasone/Vilanterol Med 06/23/18 09:00 Ordered 1 inh INH DAILY Gabapentin [Neurontin] Med 06/22/18 21:00 Ordered 1,600 mg PO BID Icosapent Ethyl [Vascepa] Med 06/23/18 09:00 Ordered 1 gm PO DAILY Iron Polysaccharides Complex [Ferrex 150] Med 06/23/18 09:00 Ordered 150 mg PO DAILY Metoprolol Tartrate [Lopressor] Med 06/22/18 21:00 Ordered 50 mg PO BID Midodrine Med 06/22/18 21:00 Ordered 2.5 mg PO BID Morphine Med 06/22/18 18:29 Ordered 15 mg PO Q6H PRN Ondansetron [Zofran] Med 06/22/18 18:23 Ordered 4 mg IVPUSH Q4H PRN Pantoprazole [ProTONIX] Med 06/23/18 09:00 Ordered 40 mg PO DAILY Sodium Chloride 0.9% [Normal Saline] 1,000 ml Med 06/22/18 18:30 Active IV ASDIRECTED Sodium Chloride 0.9% [Saline Flush] Med 06/22/18 15:57 Active 10 ml FLUSH ASDIRECTED PRN Sodium Chloride 0.9% [Saline Flush] Med 06/22/18 15:57 Active 2.5 ml FLUSH ASDIRECTED PRN Tiotropium [place] [Spiriva Respimat] Med 06/22/18 21:00 Ordered 2 puff INH BID oxyCODONE Med 06/22/18 18:23 Ordered 5 mg PO Q4H PRN predniSONE Med 06/23/18 09:00 Ordered 20 mg PO DAILY traZODone Med 06/22/18 21:00 Ordered 50 mg PO BEDTIME Blood Culture x2 Reflex Set [OM.PC] Stat Oth 06/22/18 15:57 Ordered Saline Lock Insert [OM.PC] Stat Oth 06/22/18 15:56 Ordered Sequential Compression Device [OM.PC] Per Unit Routine Oth 06/22/18 18:23 Ordered Resuscitation Status Routine Resus Stat 06/22/18 18:23 Ordered Medication Orders Acetaminophen (Tylenol) 650 mg PO Q4H PRN PRN Reason: Pain (Mild 1-3)/fever Albuterol/Ipratropium (Duoneb 3.0-0.5 Mg/3 Ml) 3 ml NEB Q4HRRT PRN PRN Reason: Shortness Of Breath/wheezing Apixaban (Eliquis) 5 mg PO BID [facility] Finasteride (Proscar) 5 mg PO DAILY [facility] Gabapentin (Neurontin) 1,600 mg PO BID [facility] Sodium Chloride (Normal Saline) 1,000 mls @ 100 mls/hr IV ASDIRECTED [facility] Metoprolol Tartrate (Lopressor) 50 mg PO BID [facility] Morphine Sulfate (Morphine) 15 mg PO Q6H PRN PRN Reason: Pain Non-Formulary Medication (Diltiazem Hcl [Diltiazem 24hr Er]) 240 mg PO DAILY [facility] Non-Formulary Medication (Fluticasone/Vilanterol) 1 inh INH DAILY [facility] Non-Formulary Medication (Icosapent Ethyl [Vascepa]) 1 gm PO DAILY [facility] Non-Formulary Medication (Midodrine) 2.5 mg PO BID [facility] Non-Formulary Medication (Tiotropium [place] [Spiriva Respimat]) 2 puff INH BID [facility] Ondansetron HCl (Zofran) 4 mg IVPUSH Q4H PRN PRN Reason: Nausea Oxycodone HCl (Oxycodone) 5 mg PO Q4H PRN PRN Reason: Pain (moderate 4-6) Pantoprazole Sodium (Protonix) 40 mg PO DAILY [facility] Polysaccharide Iron Complex (Ferrex 150) 150 mg PO DAILY [facility] Prednisone (Prednisone) 20 mg PO DAILY [facility] Sodium Chloride (Saline Flush) 10 ml FLUSH ASDIRECTED PRN PRN Reason: Keep Vein Open Last Admin: 06/22/18 16:34 Dose: 10 ml Sodium Chloride (Saline Flush) 2.5 ml FLUSH ASDIRECTED PRN PRN Reason: Keep Vein Open Last Admin: 06/22/18 16:34 Dose: 2.5 ml Trazodone HCl (Trazodone) 50 mg PO BEDTIME [facility] Assessment/Plan Comment:: Assessment: #1. Multiple syncopal episodes #2. Lesion noted on right occiptal lobe #3. Hyperkalemia #4. Acute hypoxic respiratory failure #5. Acute on chronic kidney injury #6. History of A. Fibrillation on chronic anticoagulation #7. History of aspergillosis w/ obstructive disease, CKD, TIA Plan: #1. Admit to the ICU as an inpatient. Cardiac telemetry. Lovenox for DVT Prophylaxis #2. Repeat BMP given hyperkalemia s/p insulin/kayexalate/sodium bicarb/CKD now, get a CBC also #3. Titrate o2 as needed #4. Continue home meds, continue eliquis for VTE prophylaxis #5. IVNS 100ml/h #6. Obtain records from outside facility to get echocardiogram that patient says he did in November 2017 #7. MRI tomorrow AM #8. Was advised that an EEG can't be scheduled here until Tuesday. If patient is still here then we could do one as an inpatient, otherwise this will need to be scheduled as an outpatient. <Claudy Bo - Last Filed: 06/23/18 07:47> H&P History of Present Illness - General Admit Problem/Dx: Admission Diagnosis/Problem Admission Diagnosis/Problem Syncope I have seen and examined the patient independently of Ange Jc MD, general medical practitioner.I have discussed the case with the resident. I agree with the assessment and plan of care as outlined for this patient. Please see orders. Neurologist is aware. Throat Pain Score (Numeric/FACES): 5 Generalized Pain Score (Numeric/FACES): 4 Exam - Vital Signs Vital Signs: Last Vital Signs Temp 36.6 C 06/23/18 02:00 Pulse 67 06/23/18 02:00 Resp 20 06/23/18 02:00 BP 127/76 06/23/18 02:00 Pulse Ox 91 L 06/23/18 02:00 - Patient Data Lab Results Last 24 hrs: Laboratory Results - last 24 hr 06/22/18 06/22/18 06/22/18 Range/Units 16:16 16:16 16:16 WBC (4.0-11.0) K/uL RBC (4.50-5.90) M/uL Hgb (13.0-17.0) g/dL Hct (38.0-50.0) % MCV (80.0-98.0) fL MCH (27.0-32.0) pg MCHC (31.0-37.0) g/dL RDW Std Deviation (28.0-62.0) fl RDW Coeff of Tre (11.0-15.0) % Plt Count (150-400) K/uL MPV (7.40-12.00) fL Neut % (Auto) (48.0-80.0) % Lymph % (Auto) (16.0-40.0) % [place] % (Auto) (0.0-15.0) % Eos % (Auto) (0.0-7.0) % Baso % (Auto) (0.0-1.5) % Neut # (Auto) (1.4-5.7) K/uL Lymph # (Auto) (0.6-2.4) K/uL [place] # (Auto) (0.0-0.8) K/uL Eos # (Auto) (0.0-0.7) K/uL Baso # (Auto) (0.0-0.1) K/uL Nucleated RBC % /100WBC Nucleated RBCs # K/uL Lactate 1.5 (0.20-2.00) mmol/L Sodium 132 L (136-148) mmol/L Potassium 5.9 H (3.5-5.1) mmol/L Chloride 95 L (98-107) mmol/L Carbon Dioxide 24.3 (21.0-32.0) mmol/L BUN 83 H (7.0-18.0) mg/dL Creatinine 3.0 H (0.8-1.3) mg/dL Est Cr Clr Drug Dosing 23.35 mL/min Estimated GFR (MDRD) 21.6 ml/min Glucose 102 (74-106) mg/dL Calcium 9.5 (8.5-10.1) mg/dL Total Bilirubin 0.5 (0.2-1.0) mg/dL AST 34 (15-37) IU/L ALT 30 (14-63) IU/L Alkaline Phosphatase 56 (46-116) U/L Troponin I < 0.050 (0.000-0.056) ng/mL Total Protein 7.6 (6.4-8.2) g/dL Albumin 3.6 (3.4-5.0) g/dL Globulin 4.0 (2.6-4.0) g/dL Albumin/Globulin Ratio 0.9 (0.9-1.6) 06/22/18 06/22/18 Range/Units 18:54 18:54 WBC 7.72 (4.0-11.0) K/uL RBC 3.95 L (4.50-5.90) M/uL Hgb 10.7 L (13.0-17.0) g/dL Hct 35.4 L (38.0-50.0) % MCV 89.6 (80.0-98.0) fL MCH 27.1 (27.0-32.0) pg MCHC 30.2 L (31.0-37.0) g/dL RDW Std Deviation 63.0 H (28.0-62.0) fl RDW Coeff of Tre 19 H (11.0-15.0) % Plt Count 131 L (150-400) K/uL MPV 10.00 (7.40-12.00) fL Neut % (Auto) 89.5 H (48.0-80.0) % Lymph % (Auto) 8.3 L (16.0-40.0) % [place] % (Auto) 2.2 (0.0-15.0) % Eos % (Auto) 0.0 (0.0-7.0) % Baso % (Auto) 0.0 (0.0-1.5) % Neut # (Auto) 6.9 H (1.4-5.7) K/uL Lymph # (Auto) 0.6 (0.6-2.4) K/uL [place] # (Auto) 0.2 (0.0-0.8) K/uL Eos # (Auto) 0.0 (0.0-0.7) K/uL Baso # (Auto) 0.0 (0.0-0.1) K/uL Nucleated RBC % 0.0 /100WBC Nucleated RBCs # 0 K/uL Lactate (0.20-2.00) mmol/L Sodium 135 L (136-148) mmol/L Potassium 5.1 (3.5-5.1) mmol/L Chloride 99 (98-107) mmol/L Carbon Dioxide 26.8 (21.0-32.0) mmol/L BUN 74 H (7.0-18.0) mg/dL Creatinine 2.6 H (0.8-1.3) mg/dL Est Cr Clr Drug Dosing 26.94 mL/min Estimated GFR (MDRD) 25.5 ml/min Glucose 126 H (74-106) mg/dL Calcium 10.1 (8.5-10.1) mg/dL Total Bilirubin (0.2-1.0) mg/dL AST (15-37) IU/L ALT (14-63) IU/L Alkaline Phosphatase (46-116) U/L Troponin I (0.000-0.056) ng/mL Total Protein (6.4-8.2) g/dL Albumin (3.4-5.0) g/dL Globulin (2.6-4.0) g/dL Albumin/Globulin Ratio (0.9-1.6) Result Diagrams: 06/22/18 18:54 06/22/18 18:54 Orders Last 24hrs: Active Orders 24 hr Category Date Time Status Patient Status [ADT] Stat ADT 06/22/18 17:31 Active Antiembolic Devices [RC] PER UNIT ROUTINE Care 06/22/18 18:24 Active Cardiac Monitoring [RC] . DIRECTED Care 06/22/18 16:23 Active Cardiac Monitoring [RC] CONTINUOUS Care 06/22/18 18:23 Active EEG Awake Drowsy [RC] ROUTINE Care 06/23/18 08:00 Inactive EEG Awake Drowsy [RC] ROUTINE Care 06/27/18 19:08 Active EEG Sleep Deprivated [RC] ROUTINE Care 06/23/18 08:00 Inactive EKG Documentation Completion [RC] STAT Care 06/22/18 16:04 Active Oxygen Therapy [RC] PRN Care 06/22/18 18:23 Active Oxygen Therapy, ED [RC] ASDIRECTED Care 06/22/18 15:56 Active Pulse Oximetry [RC] ASDIRECTED Care 06/22/18 15:56 Active RT Aerosol Therapy [RC] ASDIRECTED Care 06/22/18 15:57 Active RT Aerosol Therapy [RC] ASDIRECTED Care 06/22/18 18:25 Active Up With Assistance [RC] ASDIRECTED Care 06/22/18 18:23 Active VTE/DVT Education [RC] PER UNIT ROUTINE Care 06/22/18 18:23 Active Vital Signs [RC] Q4H Care 06/22/18 18:23 Active Heart Healthy Diet [DIET] Diet 06/22/18 Lunch Active Brain wo Cont [MR] Routine Exams 06/22/18 18:26 Ordered CULTURE BLOOD [BC] Stat Lab 06/22/18 16:16 Received CULTURE BLOOD [BC] Stat Lab 06/22/18 16:30 Received Acetaminophen [Tylenol] Med 06/22/18 18:23 Active 650 mg PO Q4H PRN Albuterol/Ipratropium [DuoNeb 3.0-0.5 MG/3 ML] Med 06/22/18 18:23 Active 3 ml NEB Q4HRRT PRN Apixaban [Eliquis] Med 06/22/18 21:00 Active 5 mg PO BID Diltiazem HCl [Diltiazem 24Hr ER] Med 06/23/18 09:00 Active 240 mg PO DAILY Finasteride [Proscar] Med 06/23/18 09:00 Active 5 mg PO DAILY Fluticasone/Vilanterol Med 06/23/18 09:00 Active 1 inh INH DAILY Gabapentin [Neurontin] Med 06/22/18 21:00 Active 1,600 mg PO BID Icosapent Ethyl [Vascepa] Med 06/23/18 09:00 Active 1 gm PO DAILY Iron Polysaccharides Complex [Ferrex 150] Med 06/23/18 09:00 Active 150 mg PO DAILY Metoprolol Tartrate [Lopressor] Med 06/22/18 21:00 Active 50 mg PO BID Midodrine Med 06/22/18 21:00 Active 2.5 mg PO BID Morphine Med 06/22/18 18:29 Active 15 mg PO Q6H PRN Ondansetron [Zofran] Med 06/22/18 18:23 Active 4 mg IVPUSH Q4H PRN Pantoprazole [ProTONIX] Med 06/23/18 09:00 Active 40 mg PO DAILY Sodium Chloride 0.9% [Normal Saline] 1,000 ml Med 06/22/18 18:30 Active IV ASDIRECTED Sodium Chloride 0.9% [Saline Flush] Med 06/22/18 15:57 Active 10 ml FLUSH ASDIRECTED PRN Sodium Chloride 0.9% [Saline Flush] Med 06/22/18 15:57 Active 2.5 ml FLUSH ASDIRECTED PRN Tiotropium [place] [Spiriva Respimat] Med 06/22/18 21:00 Active 2 puff INH BID oxyCODONE Med 06/22/18 18:23 Active 5 mg PO Q4H PRN predniSONE Med 06/23/18 09:00 Active 20 mg PO DAILY traZODone Med 06/22/18 21:00 Active 50 mg PO BEDTIME Blood Culture x2 Reflex Set [OM.PC] Stat Ot 06/22/18 15:57 Ordered Saline Lock Insert [OM.PC] Stat Oth 06/22/18 15:56 Ordered Sequential Compression Device [OM.PC] Per Unit Routine Ot 06/22/18 18:23 Ordered Resuscitation Status Routine Resus Stat 06/22/18 18:23 Ordered Medication Orders Acetaminophen (Tylenol) 650 mg PO Q4H PRN PRN Reason: Pain (Mild 1-3)/fever Albuterol/Ipratropium (Duoneb 3.0-0.5 Mg/3 Ml) 3 ml NEB Q4HRRT PRN PRN Reason: Shortness Of Breath/wheezing Last Admin: 06/23/18 02:27 Dose: 3 ml Admin: 06/22/18 19:06 Dose: 3 ml Apixaban (Eliquis) 5 mg PO BID [facility] Last Admin: 06/22/18 20:51 Dose: 5 mg Finasteride (Proscar) 5 mg PO DAILY [facility] Gabapentin (Neurontin) 1,600 mg PO BID [facility] Last Admin: 06/22/18 20:50 Dose: 1,600 mg Sodium Chloride (Normal Saline) 1,000 mls @ 100 mls/hr IV ASDIRECTED [facility] Last Admin: 06/22/18 21:43 Dose: 100 mls/hr Metoprolol Tartrate (Lopressor) 50 mg PO BID [facility] Last Admin: 06/22/18 20:49 Dose: 50 mg Morphine Sulfate (Morphine) 15 mg PO Q6H PRN PRN Reason: Pain Last Admin: 06/23/18 02:27 Dose: 15 mg Non-Formulary Medication (Diltiazem Hcl [Diltiazem 24hr Er]) 240 mg PO DAILY [facility] Non-Formulary Medication (Fluticasone/Vilanterol) 1 inh INH DAILY [facility] Non-Formulary Medication (Icosapent Ethyl [Vascepa]) 1 gm PO DAILY [facility] Non-Formulary Medication (Midodrine) 2.5 mg PO BID [facility] Last Admin: 06/22/18 22:14 Dose: Non-Formulary Medication (Tiotropium [place] [Spiriva Respimat]) 2 puff INH BID [facility] Last Admin: 06/22/18 21:18 Dose: Ondansetron HCl (Zofran) 4 mg IVPUSH Q4H PRN PRN Reason: Nausea Oxycodone HCl (Oxycodone) 5 mg PO Q4H PRN PRN Reason: Pain (moderate 4-6) Last Admin: 06/22/18 19:06 Dose: 5 mg Pantoprazole Sodium (Protonix) 40 mg PO DAILY [facility] Polysaccharide Iron Complex (Ferrex 150) 150 mg PO DAILY [facility] Prednisone (Prednisone) 20 mg PO DAILY [facility] Sodium Chloride (Saline Flush) 10 ml FLUSH ASDIRECTED PRN PRN Reason: Keep Vein Open Last Admin: 06/22/18 16:34 Dose: 10 ml Sodium Chloride (Saline Flush) 2.5 ml FLUSH ASDIRECTED PRN PRN Reason: Keep Vein Open Last Admin: 06/22/18 16:34 Dose: 2.5 ml Trazodone HCl (Trazodone) 50 mg PO BEDTIME [facility] Last Admin: 06/22/18 20:49 Dose: 50 mg
[2018-06-22] MEDS: Albuterol/Ipratropium 3.0-0.5 MG/3 ML Neb Soln NEB PRN (19:06)
[2018-06-22] MEDS: Metoprolol Tartrate 50 MG Tab PO SCH (20:49)
[2018-06-22] MEDS: traZODone 50 MG Tab PO SCH (20:49)
[2018-06-22] MEDS: Gabapentin 800 MG Tab PO SCH (20:50)
[2018-06-22] MEDS: Apixaban 5 MG Tab PO SCH (20:51)
[2018-06-22] MEDS ORDERED: Non-Formulary Medication 1 Each (Tiotropium Bromide [Spiriva Respimat] 2 PUFF) INH SCH (21:00)
[2018-06-22] MEDS: Sodium Chloride 0.9% 1,000 ML IV SCH (21:43)
[2018-06-22] MEDS: MIDODRINE 2.5 MG PO SCH (22:14)
[2018-06-23] MEDS: Albuterol/Ipratropium 3.0-0.5 MG/3 ML Neb Soln NEB PRN ×3 (02:27→23:11)
[2018-06-23] MEDS: Morphine 15 MG Tab PO PRN ×2 (02:27→21:11)
[2018-06-23] MEDS: Metoprolol Tartrate 50 MG Tab PO SCH ×2 (08:45→21:12)
[2018-06-23] MEDS: Pantoprazole 40 MG Tab.CR PO SCH (08:45)
[2018-06-23] MEDS: Gabapentin 800 MG Tab PO SCH ×2 (08:45→21:12)
[2018-06-23] MEDS: Diltiazem 120 MG Cap.CD PO SCH (08:46)
[2018-06-23] MEDS: Finasteride 5 MG Tab PO SCH (08:46)
[2018-06-23] MEDS: Tiotropium Inhaler 18 MCG Inhalation Powder Cap Kit of 5 INH SCH ×2 (08:46→20:07)
[2018-06-23] MEDS: Iron Polysaccharides Complex 150 MG Cap PO SCH (08:46)
[2018-06-23] MEDS: Apixaban 5 MG Tab PO SCH ×2 (08:46→21:12)
[2018-06-23] MEDS ORDERED: methylPREDNISolone Sodium Succinate 125 MG/2 ML SDV IV SCH (09:00)
[2018-06-23] MEDS ORDERED: predniSONE 5 MG Tab PO SCH (09:00)
[2018-06-23] MEDS: MIDODRINE 2.5 MG PO SCH ×2 (10:12→21:12)
[2018-06-23] MEDS: ICOSAPENT ETHYL 1 GM PO SCH (10:12)
[2018-06-23] MEDS: FLUTICASONE INH SCH (10:12)
[2018-06-23] MEDS: VILANTEROL INH SCH (10:12)
--- NOTE | 2018-06-23 10:46 | PCM.PN ---
<Lambert Jc - Last Filed: 06/23/18 10:47> - General Info Date of Service: 06/23/18 Subjective Update: Says he feels better this morning. Hasn't had further episodes of passing out. However is currently on 5L o2 via NC. denies shortness of breath chest pain. - Review of Systems General: Reports: Other (negative except for hpi) - Patient Data Vitals - Most Recent: Last Vital Signs Temp 36.9 C 06/23/18 08:46 Pulse 72 06/23/18 08:46 Resp 18 06/23/18 08:46 BP 155/93 H 06/23/18 08:46 Pulse Ox 95 06/23/18 08:46 Weight - Most Recent: 66.587 kg I&O - Last 24 Hours: Intake & Output 06/22/18 06/23/18 06/23/18 22:59 06:59 14:59 Intake Total 1179 Output Total 550 Balance 629 Lab Results Last 24 Hours: Laboratory Results - last 24 hr 06/22/18 06/22/18 06/22/18 Range/Units 16:16 16:16 16:16 WBC (4.0-11.0) K/uL RBC (4.50-5.90) M/uL Hgb (13.0-17.0) g/dL Hct (38.0-50.0) % MCV (80.0-98.0) fL MCH (27.0-32.0) pg MCHC (31.0-37.0) g/dL RDW Std Deviation (28.0-62.0) fl RDW Coeff of Tre (11.0-15.0) % Plt Count (150-400) K/uL MPV (7.40-12.00) fL Neut % (Auto) (48.0-80.0) % Lymph % (Auto) (16.0-40.0) % [place] % (Auto) (0.0-15.0) % Eos % (Auto) (0.0-7.0) % Baso % (Auto) (0.0-1.5) % Neut # (Auto) (1.4-5.7) K/uL Lymph # (Auto) (0.6-2.4) K/uL [place] # (Auto) (0.0-0.8) K/uL Eos # (Auto) (0.0-0.7) K/uL Baso # (Auto) (0.0-0.1) K/uL Nucleated RBC % /100WBC Nucleated RBCs # K/uL Lactate 1.5 (0.20-2.00) mmol/L Sodium 132 L (136-148) mmol/L Potassium 5.9 H (3.5-5.1) mmol/L Chloride 95 L (98-107) mmol/L Carbon Dioxide 24.3 (21.0-32.0) mmol/L BUN 83 H (7.0-18.0) mg/dL Creatinine 3.0 H (0.8-1.3) mg/dL Est Cr Clr Drug Dosing 23.35 mL/min Estimated GFR (MDRD) 21.6 ml/min Glucose 102 (74-106) mg/dL Calcium 9.5 (8.5-10.1) mg/dL Total Bilirubin 0.5 (0.2-1.0) mg/dL AST 34 (15-37) IU/L ALT 30 (14-63) IU/L Alkaline Phosphatase 56 (46-116) U/L Troponin I < 0.050 (0.000-0.056) ng/mL Total Protein 7.6 (6.4-8.2) g/dL Albumin 3.6 (3.4-5.0) g/dL Globulin 4.0 (2.6-4.0) g/dL Albumin/Globulin Ratio 0.9 (0.9-1.6) 06/22/18 06/22/18 06/23/18 Range/Units 18:54 18:54 09:05 WBC 7.72 (4.0-11.0) K/uL RBC 3.95 L (4.50-5.90) M/uL Hgb 10.7 L (13.0-17.0) g/dL Hct 35.4 L (38.0-50.0) % MCV 89.6 (80.0-98.0) fL MCH 27.1 (27.0-32.0) pg MCHC 30.2 L (31.0-37.0) g/dL RDW Std Deviation 63.0 H (28.0-62.0) fl RDW Coeff of Tre 19 H (11.0-15.0) % Plt Count 131 L (150-400) K/uL MPV 10.00 (7.40-12.00) fL Neut % (Auto) 89.5 H (48.0-80.0) % Lymph % (Auto) 8.3 L (16.0-40.0) % [place] % (Auto) 2.2 (0.0-15.0) % Eos % (Auto) 0.0 (0.0-7.0) % Baso % (Auto) 0.0 (0.0-1.5) % Neut # (Auto) 6.9 H (1.4-5.7) K/uL Lymph # (Auto) 0.6 (0.6-2.4) K/uL [place] # (Auto) 0.2 (0.0-0.8) K/uL Eos # (Auto) 0.0 (0.0-0.7) K/uL Baso # (Auto) 0.0 (0.0-0.1) K/uL Nucleated RBC % 0.0 /100WBC Nucleated RBCs # 0 K/uL Lactate (0.20-2.00) mmol/L Sodium 135 L 142 (136-148) mmol/L Potassium 5.1 4.5 (3.5-5.1) mmol/L Chloride 99 105 (98-107) mmol/L Carbon Dioxide 26.8 32.5 H (21.0-32.0) mmol/L BUN 74 H 51 H (7.0-18.0) mg/dL Creatinine 2.6 H 1.6 H (0.8-1.3) mg/dL Est Cr Clr Drug Dosing 26.94 43.78 mL/min Estimated GFR (MDRD) 25.5 44.6 ml/min Glucose 126 H 132 H (74-106) mg/dL Calcium 10.1 9.2 (8.5-10.1) mg/dL Total Bilirubin (0.2-1.0) mg/dL AST (15-37) IU/L ALT (14-63) IU/L Alkaline Phosphatase (46-116) U/L Troponin I (0.000-0.056) ng/mL Total Protein (6.4-8.2) g/dL Albumin (3.4-5.0) g/dL Globulin (2.6-4.0) g/dL Albumin/Globulin Ratio (0.9-1.6) Med Orders - Current: Current Medications Acetaminophen (Tylenol) 650 mg PO Q4H PRN PRN Reason: Pain (Mild 1-3)/fever Albuterol/Ipratropium (Duoneb 3.0-0.5 Mg/3 Ml) 3 ml NEB Q4HRRT PRN PRN Reason: Shortness Of Breath/wheezing Last Admin: 06/23/18 02:27 Dose: 3 ml Apixaban (Eliquis) 5 mg PO BID [facility] Last Admin: 06/23/18 08:46 Dose: 5 mg Diltiazem HCl (Cardizem Cd) 240 mg PO DAILY [facility] Last Admin: 06/23/18 08:46 Dose: 240 mg Finasteride (Proscar) 5 mg PO DAILY [facility] Last Admin: 06/23/18 08:46 Dose: 5 mg Gabapentin (Neurontin) 1,600 mg PO BID [facility] Last Admin: 06/23/18 08:45 Dose: 1,600 mg Sodium Chloride (Normal Saline) 1,000 mls @ 100 mls/hr IV ASDIRECTED [facility] Last Admin: 06/22/18 21:43 Dose: 100 mls/hr Methylprednisolone Sodium Succinate (Solu-Medrol) 60 mg IV Q6H [facility] Metoprolol Tartrate (Lopressor) 50 mg PO BID [facility] Last Admin: 06/23/18 08:45 Dose: 50 mg Morphine Sulfate (Morphine) 15 mg PO Q6H PRN PRN Reason: Pain Last Admin: 06/23/18 02:27 Dose: 15 mg Non-Formulary Medication (Fluticasone/Vilanterol) 1 inh INH DAILY [facility] Last Admin: 06/23/18 10:12 Dose: Not Given Non-Formulary Medication (Icosapent Ethyl [Vascepa]) 1 gm PO DAILY [facility] Last Admin: 06/23/18 10:12 Dose: Not Given Non-Formulary Medication (Midodrine) 2.5 mg PO BID [facility] Last Admin: 06/23/18 10:12 Dose: Not Given Ondansetron HCl (Zofran) 4 mg IVPUSH Q4H PRN PRN Reason: Nausea Oxycodone HCl (Oxycodone) 5 mg PO Q4H PRN PRN Reason: Pain (moderate 4-6) Last Admin: 06/22/18 19:06 Dose: 5 mg Pantoprazole Sodium (Protonix) 40 mg PO DAILY [facility] Last Admin: 06/23/18 08:45 Dose: 40 mg Polysaccharide Iron Complex (Ferrex 150) 150 mg PO DAILY [facility] Last Admin: 06/23/18 08:46 Dose: 150 mg Sodium Chloride (Saline Flush) 10 ml FLUSH ASDIRECTED PRN PRN Reason: Keep Vein Open Last Admin: 06/22/18 16:34 Dose: 10 ml Sodium Chloride (Saline Flush) 2.5 ml FLUSH ASDIRECTED PRN PRN Reason: Keep Vein Open Last Admin: 06/22/18 16:34 Dose: 2.5 ml Tiotropium [place] (Spiriva Handihaler) 18 mcg INH BID [facility] Last Admin: 06/23/18 08:46 Dose: 18 mcg Trazodone HCl (Trazodone) 50 mg PO BEDTIME [facility] Last Admin: 06/22/18 20:49 Dose: 50 mg Discontinued Medications Albuterol/Ipratropium (Duoneb 3.0-0.5 Mg/3 Ml) 3 ml NEB ONETIME ONE Stop: 06/22/18 15:58 Last Admin: 06/22/18 16:02 Dose: 3 ml Calcium Chloride (Calcium Chloride 10%) 1 gm IVPUSH ONETIME ONE Stop: 06/22/18 17:44 Last Admin: 06/22/18 18:07 Dose: 1 gm Dextrose/Water (Dextrose 50% In Water) 50 ml IVPUSH ONETIME ONE Stop: 06/22/18 17:44 Last Admin: 06/22/18 17:55 Dose: 50 ml Sodium Chloride (Normal Saline) 1,000 mls @ 999 mls/hr IV .Bolus ONE Stop: 06/22/18 16:57 Last Admin: 06/22/18 16:34 Dose: 999 mls/hr Insulin Human Regular (Novolin R) 10 unit IVPUSH ONETIME ONE; Protocol Stop: 06/22/18 17:31 Last Admin: 06/22/18 17:47 Dose: Not Given Insulin Human Regular (Novolin R) 10 unit IVPUSH ONETIME ONE; Protocol Stop: 06/22/18 17:44 Last Admin: 06/22/18 17:45 Dose: 10 units Methylprednisolone Sodium Succinate (Solu-Medrol) 125 mg IVPUSH ONETIME ONE Stop: 06/22/18 15:59 Last Admin: 06/22/18 16:34 Dose: 125 mg Non-Formulary Medication (Tiotropium [place] [Spiriva Respimat]) 2 puff INH BID [facility] Last Admin: 06/22/18 21:18 Dose: Not Given Prednisone (Prednisone) 20 mg PO DAILY [facility] Last Admin: 06/23/18 08:46 Dose: 20 mg Sodium Bicarbonate (Sodium Bicarbonate 8.4%) 50 meq IVPUSH ONETIME ONE Stop: 06/22/18 17:44 Last Admin: 06/22/18 17:55 Dose: 50 meq Sodium Polystyrene Sulfonate (Kayexalate) 15 gm PO ONETIME ONE Stop: 06/22/18 17:31 Last Admin: 06/22/18 17:43 Dose: 15 gm - Exam Quality Assessment: Supplemental Oxygen General: Alert, Oriented HEENT: Pupils Equal, Pupils Reactive, EOMI, Mucous Membr. Moist/[place] Neck: Supple Lungs: Clear to Auscultation, Normal Respiratory Effort Cardiovascular: Regular Rate, Regular Rhythm GI/Abdominal Exam: Normal Bowel Sounds, Soft, Non-Tender, No Organomegaly, No Distention, No Abnormal Bruit, No Mass, Pelvis Stable Extremities: Normal Inspection, Normal Range of Motion, Non-Tender, No Pedal Edema, Normal Capillary Refill Neurological: No New Focal Deficit Psy/Mental Status: Alert, Normal Affect, Normal Mood - Problem List Review Problem List Initiated/Reviewed/Updated: Yes - My Orders Last 24 Hours: My Active Orders 06/22/18 18:23 Cardiac Monitoring [RC] CONTINUOUS Oxygen Therapy [RC] PRN Up With Assistance [RC] ASDIRECTED VTE/DVT Education [RC] PER UNIT ROUTINE Vital Signs [RC] Q4H Acetaminophen [Tylenol] 650 mg PO Q4H PRN Albuterol/Ipratropium [DuoNeb 3.0-0.5 MG/3 ML] 3 ml NEB Q4HRRT PRN Ondansetron [Zofran] 4 mg IVPUSH Q4H PRN oxyCODONE 5 mg PO Q4H PRN Sequential Compression Device [OM.PC] Per Unit Routine Resuscitation Status Routine 06/22/18 18:24 Antiembolic Devices [RC] PER UNIT ROUTINE 06/22/18 18:25 RT Aerosol Therapy [RC] ASDIRECTED 06/22/18 18:26 Brain wo Cont [MR] Routine 06/22/18 18:29 Morphine 15 mg PO Q6H PRN 06/22/18 18:30 Sodium Chloride 0.9% [Normal Saline] 1,000 ml IV ASDIRECTED 06/22/18 21:00 Apixaban [Eliquis] 5 mg PO BID Gabapentin [Neurontin] 1,600 mg PO BID Metoprolol Tartrate [Lopressor] 50 mg PO BID Midodrine 2.5 mg PO BID traZODone 50 mg PO BEDTIME 06/22/18 Lunch Heart Healthy Diet [DIET] 06/23/18 08:00 EEG Awake Drowsy [RC] ROUTINE EEG Sleep Deprivated [RC] ROUTINE 06/23/18 09:00 Diltiazem [Cardizem CD] 240 mg PO DAILY Finasteride [Proscar] 5 mg PO DAILY Fluticasone/Vilanterol 1 inh INH DAILY Icosapent Ethyl [Vascepa] 1 gm PO DAILY Iron Polysaccharides Complex [Ferrex 150] 150 mg PO DAILY Pantoprazole [ProTONIX] 40 mg PO DAILY Tiotropium [Spiriva HandiHaler] 18 mcg INH BID methylPREDNISolone Sod Succ [Solu-MEDROL] 60 mg IV Q6H 06/23/18 09:34 Chest wo Cont [CT] Stat - Plan Plan:: Assessment: #1. Multiple syncopal episodes #2. Lesion noted on right occiptal lobe #3. Hyperkalemia #4. Acute hypoxic respiratory failure #5. Acute on chronic kidney injury #6. History of A. Fibrillation on chronic anticoagulation #7. History of aspergillosis w/ obstructive disease, CKD, TIA Plan: #1. Obtain chest CT for further work up of nodule of noted on CXR and worsening hypoxia #2. F/u on MRI brain - will not be able to get an EEG until Tuesday at the earliest #3. Continue current management. <Claudy Bo - Last Filed: 06/23/18 12:38> - General Info Subjective Update: I have examined the patient independently of Lambert Jc MD, medical delivery driver. I have discussed the case with the resident. I agree with the assessment and plan of care as outlined for this patient by the resident. Please see orders. - Patient Data Vitals - Most Recent: Last Vital Signs Temp 36.9 C 06/23/18 08:46 Pulse 72 06/23/18 08:46 Resp 18 06/23/18 08:46 BP 155/93 H 06/23/18 08:46 Pulse Ox 95 06/23/18 08:46 I&O - Last 24 Hours: Intake & Output 06/22/18 06/23/18 06/23/18 22:59 06:59 14:59 Intake Total 1179 Output Total 550 Balance 629 Lab Results Last 24 Hours: Laboratory Results - last 24 hr 06/22/18 06/22/18 06/22/18 Range/Units 16:16 16:16 16:16 WBC (4.0-11.0) K/uL RBC (4.50-5.90) M/uL Hgb (13.0-17.0) g/dL Hct (38.0-50.0) % MCV (80.0-98.0) fL MCH (27.0-32.0) pg MCHC (31.0-37.0) g/dL RDW Std Deviation (28.0-62.0) fl RDW Coeff of Tre (11.0-15.0) % Plt Count (150-400) K/uL MPV (7.40-12.00) fL Neut % (Auto) (48.0-80.0) % Lymph % (Auto) (16.0-40.0) % [place] % (Auto) (0.0-15.0) % Eos % (Auto) (0.0-7.0) % Baso % (Auto) (0.0-1.5) % Neut # (Auto) (1.4-5.7) K/uL Lymph # (Auto) (0.6-2.4) K/uL [place] # (Auto) (0.0-0.8) K/uL Eos # (Auto) (0.0-0.7) K/uL Baso # (Auto) (0.0-0.1) K/uL Nucleated RBC % /100WBC Nucleated RBCs # K/uL Lactate 1.5 (0.20-2.00) mmol/L Sodium 132 L (136-148) mmol/L Potassium 5.9 H (3.5-5.1) mmol/L Chloride 95 L (98-107) mmol/L Carbon Dioxide 24.3 (21.0-32.0) mmol/L BUN 83 H (7.0-18.0) mg/dL Creatinine 3.0 H (0.8-1.3) mg/dL Est Cr Clr Drug Dosing 23.35 mL/min Estimated GFR (MDRD) 21.6 ml/min Glucose 102 (74-106) mg/dL Calcium 9.5 (8.5-10.1) mg/dL Total Bilirubin 0.5 (0.2-1.0) mg/dL AST 34 (15-37) IU/L ALT 30 (14-63) IU/L Alkaline Phosphatase 56 (46-116) U/L Troponin I < 0.050 (0.000-0.056) ng/mL Total Protein 7.6 (6.4-8.2) g/dL Albumin 3.6 (3.4-5.0) g/dL Globulin 4.0 (2.6-4.0) g/dL Albumin/Globulin Ratio 0.9 (0.9-1.6) 06/22/18 06/22/18 06/23/18 Range/Units 18:54 18:54 09:05 WBC 7.72 (4.0-11.0) K/uL RBC 3.95 L (4.50-5.90) M/uL Hgb 10.7 L (13.0-17.0) g/dL Hct 35.4 L (38.0-50.0) % MCV 89.6 (80.0-98.0) fL MCH 27.1 (27.0-32.0) pg MCHC 30.2 L (31.0-37.0) g/dL RDW Std Deviation 63.0 H (28.0-62.0) fl RDW Coeff of Tre 19 H (11.0-15.0) % Plt Count 131 L (150-400) K/uL MPV 10.00 (7.40-12.00) fL Neut % (Auto) 89.5 H (48.0-80.0) % Lymph % (Auto) 8.3 L (16.0-40.0) % [place] % (Auto) 2.2 (0.0-15.0) % Eos % (Auto) 0.0 (0.0-7.0) % Baso % (Auto) 0.0 (0.0-1.5) % Neut # (Auto) 6.9 H (1.4-5.7) K/uL Lymph # (Auto) 0.6 (0.6-2.4) K/uL [place] # (Auto) 0.2 (0.0-0.8) K/uL Eos # (Auto) 0.0 (0.0-0.7) K/uL Baso # (Auto) 0.0 (0.0-0.1) K/uL Nucleated RBC % 0.0 /100WBC Nucleated RBCs # 0 K/uL Lactate (0.20-2.00) mmol/L Sodium 135 L 142 (136-148) mmol/L Potassium 5.1 4.5 (3.5-5.1) mmol/L Chloride 99 105 (98-107) mmol/L Carbon Dioxide 26.8 32.5 H (21.0-32.0) mmol/L BUN 74 H 51 H (7.0-18.0) mg/dL Creatinine 2.6 H 1.6 H (0.8-1.3) mg/dL Est Cr Clr Drug Dosing 26.94 43.78 mL/min Estimated GFR (MDRD) 25.5 44.6 ml/min Glucose 126 H 132 H (74-106) mg/dL Calcium 10.1 9.2 (8.5-10.1) mg/dL Total Bilirubin (0.2-1.0) mg/dL AST (15-37) IU/L ALT (14-63) IU/L Alkaline Phosphatase (46-116) U/L Troponin I (0.000-0.056) ng/mL Total Protein (6.4-8.2) g/dL Albumin (3.4-5.0) g/dL Globulin (2.6-4.0) g/dL Albumin/Globulin Ratio (0.9-1.6) Med Orders - Current: Current Medications Acetaminophen (Tylenol) 650 mg PO Q4H PRN PRN Reason: Pain (Mild 1-3)/fever Albuterol/Ipratropium (Duoneb 3.0-0.5 Mg/3 Ml) 3 ml NEB Q4HRRT PRN PRN Reason: Shortness Of Breath/wheezing Last Admin: 06/23/18 02:27 Dose: 3 ml Apixaban (Eliquis) 5 mg PO BID [facility] Last Admin: 06/23/18 08:46 Dose: 5 mg Diltiazem HCl (Cardizem Cd) 240 mg PO DAILY [facility] Last Admin: 06/23/18 08:46 Dose: 240 mg Finasteride (Proscar) 5 mg PO DAILY [facility] Last Admin: 06/23/18 08:46 Dose: 5 mg Gabapentin (Neurontin) 1,600 mg PO BID [facility] Last Admin: 06/23/18 08:45 Dose: 1,600 mg Sodium Chloride (Normal Saline) 1,000 mls @ 100 mls/hr IV ASDIRECTED [facility] Last Admin: 06/22/18 21:43 Dose: 100 mls/hr Methylprednisolone Sodium Succinate (Solu-Medrol) 60 mg IV Q6H [facility] Metoprolol Tartrate (Lopressor) 50 mg PO BID [facility] Last Admin: 06/23/18 08:45 Dose: 50 mg Morphine Sulfate (Morphine) 15 mg PO Q6H PRN PRN Reason: Pain Last Admin: 06/23/18 02:27 Dose: 15 mg Non-Formulary Medication (Fluticasone/Vilanterol) 1 inh INH DAILY [facility] Last Admin: 06/23/18 10:12 Dose: Not Given Non-Formulary Medication (Icosapent Ethyl [Vascepa]) 1 gm PO DAILY [facility] Last Admin: 06/23/18 10:12 Dose: Not Given Non-Formulary Medication (Midodrine) 2.5 mg PO BID [facility] Last Admin: 06/23/18 10:12 Dose: Not Given Ondansetron HCl (Zofran) 4 mg IVPUSH Q4H PRN PRN Reason: Nausea Oxycodone HCl (Oxycodone) 5 mg PO Q4H PRN PRN Reason: Pain (moderate 4-6) Last Admin: 06/22/18 19:06 Dose: 5 mg Pantoprazole Sodium (Protonix) 40 mg PO DAILY [facility] Last Admin: 06/23/18 08:45 Dose: 40 mg Polysaccharide Iron Complex (Ferrex 150) 150 mg PO DAILY [facility] Last Admin: 06/23/18 08:46 Dose: 150 mg Sodium Chloride (Saline Flush) 10 ml FLUSH ASDIRECTED PRN PRN Reason: Keep Vein Open Last Admin: 06/22/18 16:34 Dose: 10 ml Sodium Chloride (Saline Flush) 2.5 ml FLUSH ASDIRECTED PRN PRN Reason: Keep Vein Open Last Admin: 06/22/18 16:34 Dose: 2.5 ml Tiotropium [place] (Spiriva Handihaler) 18 mcg INH BID [facility] Last Admin: 06/23/18 08:46 Dose: 18 mcg Trazodone HCl (Trazodone) 50 mg PO BEDTIME [facility] Last Admin: 06/22/18 20:49 Dose: 50 mg Discontinued Medications Albuterol/Ipratropium (Duoneb 3.0-0.5 Mg/3 Ml) 3 ml NEB ONETIME ONE Stop: 06/22/18 15:58 Last Admin: 06/22/18 16:02 Dose: 3 ml Calcium Chloride (Calcium Chloride 10%) 1 gm IVPUSH ONETIME ONE Stop: 06/22/18 17:44 Last Admin: 06/22/18 18:07 Dose: 1 gm Dextrose/Water (Dextrose 50% In Water) 50 ml IVPUSH ONETIME ONE Stop: 06/22/18 17:44 Last Admin: 06/22/18 17:55 Dose: 50 ml Sodium Chloride (Normal Saline) 1,000 mls @ 999 mls/hr IV .Bolus ONE Stop: 06/22/18 16:57 Last Admin: 06/22/18 16:34 Dose: 999 mls/hr Insulin Human Regular (Novolin R) 10 unit IVPUSH ONETIME ONE; Protocol Stop: 06/22/18 17:31 Last Admin: 06/22/18 17:47 Dose: Not Given Insulin Human Regular (Novolin R) 10 unit IVPUSH ONETIME ONE; Protocol Stop: 06/22/18 17:44 Last Admin: 06/22/18 17:45 Dose: 10 units Methylprednisolone Sodium Succinate (Solu-Medrol) 125 mg IVPUSH ONETIME ONE Stop: 06/22/18 15:59 Last Admin: 06/22/18 16:34 Dose: 125 mg Non-Formulary Medication (Tiotropium [place] [Spiriva Respimat]) 2 puff INH BID [facility] Last Admin: 06/22/18 21:18 Dose: Not Given Prednisone (Prednisone) 20 mg PO DAILY [facility] Last Admin: 06/23/18 08:46 Dose: 20 mg Sodium Bicarbonate (Sodium Bicarbonate 8.4%) 50 meq IVPUSH ONETIME ONE Stop: 06/22/18 17:44 Last Admin: 06/22/18 17:55 Dose: 50 meq Sodium Polystyrene Sulfonate (Kayexalate) 15 gm PO ONETIME ONE Stop: 06/22/18 17:31 Last Admin: 06/22/18 17:43 Dose: 15 gm - My Orders Last 24 Hours: My Active Orders 06/27/18 19:08 EEG Awake Drowsy [RC] ROUTINE
--- NOTE | 2018-06-23 11:42 | CT ---
EXAMINATION: CT chest without contrast HISTORY: Pain COMPARISON: Radiographs dated 06/22/2028 seen, 05/20/2018 TECHNIQUE: Axial CT imaging obtained through the chest without contrast. Coronal and sagittal reconstructions obtained. FINDINGS: Reticular opacities are noted within the chest bilaterally with nodular consolidation within the right lower lobe. Centralized bronchiectasis is noted most prominent within the region of the right middle lobe and left lingula. The heart is borderline in size without a pericardial effusion. Thoracic aorta is normal in caliber. No mediastinal lymphadenopathy or significant hilar fullness. The central airways are clear. No axillary lymphadenopathy. There is a few extrapleural nodules noted within the lung bases bilaterally Patient is status post left nephrectomy. Otherwise the visualized images of the upper abdomen appear normal. Multiple moderate compression deformity is noted throughout the visualized thoracic spine. IMPRESSION: 1. Mild nodular consolidation within the right lung base, likely representing an infectious process, correlate for aspiration. 2. Centralized bronchiectasis noted bilaterally 3. Left nephrectomy. 4. Likely extrapleural prominent lymph nodes noted within the lung bases bilaterally.
--- NOTE | 2018-06-23 12:01 | PCM.CONS ---
H&P History of Present Illness - General Date of Service: 06/23/18 Admit Problem/Dx: Admission Diagnosis/Problem Admission Diagnosis/Problem Syncope - History of Present Illness Initial Comments - Free Text/Narative: On Jun 18, he developed cough and shortness of breath. That same day he started having episodes where he would lose consciousness uncontrollably. They occurred predominantly when he was sitting, and he would slump, and then wake up abruptly. He notes that he was very drowsy, and it seems like these episodes were falling asleep. He notes that when he was in a conversation, if he was the one talking, he could stay awake, but if he was listening to another person talking, he would fall asleep. Episodes were so uncontrollable, that he was afraid to stand due to concern about falling. He has had not witnessed tonic -clonic activity. No urinary incontinence, but he did his tongue with at least one of the episodes. He denies any fevers, chills, headache, chest pain, palpitations. He was admitted from the emergency department yesterday where events were witnessed. He reports that he slept well last night, and he feels better today. He has not had any episodes today but he has not been awake very long. Yesterday he underwent head CT which showed hyperdense focus posterior to the right lateral ventricle as well area of the tentorium on the right. Chest x- ray showed nodule in the left lung base. He was hypoxic on 4 L oxygen. He was found to have acute kidney injury. He has a history of paroxysmal atrial fibrillation. He has had pain in his legs for approximately the last year and was recently diagnosed with idiopathic polyneuropathy. It has been affecting his balance. He was diagnosed with aspergillosis in 1975, which was complicated by asthma. He has been on chronic steroids, most recently 20 mg daily. In 2009, he had an episodes of right sided weakness. Imaging at that time revealed an abnormality that was not clearly explained. Throat Pain Score (Numeric/FACES): 5 Generalized Pain Score (Numeric/FACES): 4 - Related Data Allergies/Adverse Reactions: Allergies Allergy/AdvReac Type Severity Reaction Status Date / Time itraconazole [From Sporanox] Allergy Unknown Confusion Verified 06/22/18 15:51 levofloxacin [From Levaquin] Allergy Unknown Other Verified 06/22/18 15:51 Home Medications: Home Meds Finasteride 5 mg PO DAILY 01/11/16 [History] Fluticasone/Vilanterol [Breo Ellipta 200-25 Mcg INH] 1 inh INH DAILY 01/11/16 [ History] Gabapentin [Neurontin] 1,600 mg PO BID 01/11/16 [History] Testosterone [Androgel] 4 pump TOP DAILY 01/11/16 [History] predniSONE [Prednisone] 20 mg PO DAILY 01/11/16 [History] Tiotropium [place] [Spiriva Respimat] 2 puff INH BID 01/12/16 [History] Morphine 15 mg PO Q6H PRN #10 tablet 01/15/16 [Rx] Albuterol Sulfate 2.5 mg IH DAILY 05/19/18 [History] Apixaban [Eliquis] 5 mg PO BID 05/19/18 [History] Diltiazem HCl [Diltiazem 24Hr ER] 240 mg PO DAILY 05/19/18 [History] Icosapent Ethyl [Vascepa] 1 gm PO DAILY 05/19/18 [History] Pantoprazole [ProTONIX] 40 mg PO DAILY 05/19/18 [History] Clindamycin HCl 300 mg PO Q8H 05/20/18 [History] Metoprolol Tartrate 50 mg PO BID 05/20/18 [History] Midodrine 2.5 mg PO BID 05/20/18 [History] traZODone HCl [Trazodone HCl] 50 mg PO BEDTIME 05/20/18 [History] Clindamycin HCl [Cleocin] 300 mg PO Q8H 7 Days cap 05/23/18 [Rx] Iron Polysaccharides Complex [Ferrex 150] 150 mg PO DAILY 30 Days #30 cap [Rx] Past Medical History HEENT History: Reports: Cataract Other HEENT History: dental fillings due to caries; recent tooth fracture Cardiovascular History: Reports: Afib, Cardiomyopathy, Heart Failure, Hypertension, [place] Respiratory History: Reports: Asthma, Bronchitis, Recurrent, PE, Pneumonia, Recurrent, Other (See Below) Other Respiratory History: Chronic pulmonary aspergillosis, 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 bilateral achilles tendon ruptures and repair. 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 No explantation- -they apparently just treated him with IV abx for months. - Past Surgical History HEENT Surgical History: Reports: Cataract Surgery Respiratory Surgical History: Reports: Lung Resection Other Respiratory Surgeries/Procedures: intubated last Feb 2018 and transfered to [facility] Musculoskeletal Surgical History: Reports: Shoulder Surgery, Other (See Below) Other Musculoskeletal Surgeries/Procedures:: L shoulder and left hip surgery Social & Family History - Family History Family Medical History: Noncontributory - Tobacco Use Smoking Status *Q: Never Smoker - Caffeine Use Caffeine Use: Reports: Coffee - Recreational Drug Use Recreational Drug Use: No - Living Situation & Occupation Living situation: Reports: Single Occupation: Disabled H&P Review of Systems - Review of Systems: Review Of Systems: ROS reveals no pertinent complaints other than HPI. Exam - Exam Exam: See Below - Vital Signs Vital Signs: Last Vital Signs Temp 36.9 C 06/23/18 08:46 Pulse 72 06/23/18 08:46 Resp 18 06/23/18 08:46 BP 155/93 H 06/23/18 08:46 Pulse Ox 95 06/23/18 08:46 Weight: 66.587 kg - Exam Physical Exam Comments:: Constitutional: chronically ill appearance, No acute distress Psychiatric: Mood/Affect: normal/appropriate Neurological: Mental Status: General: Normal activity, good hygiene, appropriate appearance. Level of consciousness: Awake, alert. Orientation: Oriented to person, place situation. Concentration/Attention Span: Normal. Comprehension/Praxis: Able to perform a three step command. Language: Fluent and articulate without evidence of aphasia or dysarthria. Thought Content: Normal. Insight/Judgement: Normal. Cranial Nerves: Pupils slugglish, minimally reactive. Visual daniels full to confrontation. Gaze conjugate, EOMI. Sensation intact and symmetric to light touch. Facial strength is full and symmetric. Palate elevates symmetrically. Normal shrug bilaterally. Tongue protrudes midline Motor: Intrinsic hand muscle atrophy, diffuse atrophy, finger abductor 4/5, otherwise/ 5/5 throughout proximal and distal muscles. Sensation: Sensation is decreased to pinprick in stocking glove pattern, vibratory sense is absent at great toes, right patella, present 2nd DIPs. Deep tendon reflexes: 1+ bilateral triceps, left biceps, left brachioradialis. Absent AJ and right biceps and brachioradialis. Knee jerks are 2_. Coordination: heel to gonzalez is dysmetric bilaterally. . Gait: Wide based. HEENT: Eyes: non icteric, Mouth: moist mucus membranes Skin: multiple ecchymosis, discoloration of skin - Patient Data Lab Results Last 24 hrs: Laboratory Results - last 24 hr 06/22/18 06/22/18 06/22/18 Range/Units 16:16 16:16 16:16 WBC (4.0-11.0) K/uL RBC (4.50-5.90) M/uL Hgb (13.0-17.0) g/dL Hct (38.0-50.0) % MCV (80.0-98.0) fL MCH (27.0-32.0) pg MCHC (31.0-37.0) g/dL RDW Std Deviation (28.0-62.0) fl RDW Coeff of Tre (11.0-15.0) % Plt Count (150-400) K/uL MPV (7.40-12.00) fL Neut % (Auto) (48.0-80.0) % Lymph % (Auto) (16.0-40.0) % Armstrong % (Auto) (0.0-15.0) % Eos % (Auto) (0.0-7.0) % Baso % (Auto) (0.0-1.5) % Neut # (Auto) (1.4-5.7) K/uL Lymph # (Auto) (0.6-2.4) K/uL Armstrong # (Auto) (0.0-0.8) K/uL Eos # (Auto) (0.0-0.7) K/uL Baso # (Auto) (0.0-0.1) K/uL Nucleated RBC % /100WBC Nucleated RBCs # K/uL Lactate 1.5 (0.20-2.00) mmol/L Sodium 132 L (136-148) mmol/L Potassium 5.9 H (3.5-5.1) mmol/L Chloride 95 L (98-107) mmol/L Carbon Dioxide 24.3 (21.0-32.0) mmol/L BUN 83 H (7.0-18.0) mg/dL Creatinine 3.0 H (0.8-1.3) mg/dL Est Cr Clr Drug Dosing 23.35 mL/min Estimated GFR (MDRD) 21.6 ml/min Glucose 102 (74-106) mg/dL Calcium 9.5 (8.5-10.1) mg/dL Total Bilirubin 0.5 (0.2-1.0) mg/dL AST 34 (15-37) IU/L ALT 30 (14-63) IU/L Alkaline Phosphatase 56 (46-116) U/L Troponin I < 0.050 (0.000-0.056) ng/mL Total Protein 7.6 (6.4-8.2) g/dL Albumin 3.6 (3.4-5.0) g/dL Globulin 4.0 (2.6-4.0) g/dL Albumin/Globulin Ratio 0.9 (0.9-1.6) 06/22/18 06/22/18 06/23/18 Range/Units 18:54 18:54 09:05 WBC 7.72 (4.0-11.0) K/uL RBC 3.95 L (4.50-5.90) M/uL Hgb 10.7 L (13.0-17.0) g/dL Hct 35.4 L (38.0-50.0) % MCV 89.6 (80.0-98.0) fL MCH 27.1 (27.0-32.0) pg MCHC 30.2 L (31.0-37.0) g/dL RDW Std Deviation 63.0 H (28.0-62.0) fl RDW Coeff of Tre 19 H (11.0-15.0) % Plt Count 131 L (150-400) K/uL MPV 10.00 (7.40-12.00) fL Neut % (Auto) 89.5 H (48.0-80.0) % Lymph % (Auto) 8.3 L (16.0-40.0) % Armstrong % (Auto) 2.2 (0.0-15.0) % Eos % (Auto) 0.0 (0.0-7.0) % Baso % (Auto) 0.0 (0.0-1.5) % Neut # (Auto) 6.9 H (1.4-5.7) K/uL Lymph # (Auto) 0.6 (0.6-2.4) K/uL Armstrong # (Auto) 0.2 (0.0-0.8) K/uL Eos # (Auto) 0.0 (0.0-0.7) K/uL Baso # (Auto) 0.0 (0.0-0.1) K/uL Nucleated RBC % 0.0 /100WBC Nucleated RBCs # 0 K/uL Lactate (0.20-2.00) mmol/L Sodium 135 L 142 (136-148) mmol/L Potassium 5.1 4.5 (3.5-5.1) mmol/L Chloride 99 105 (98-107) mmol/L Carbon Dioxide 26.8 32.5 H (21.0-32.0) mmol/L BUN 74 H 51 H (7.0-18.0) mg/dL Creatinine 2.6 H 1.6 H (0.8-1.3) mg/dL Est Cr Clr Drug Dosing 26.94 43.78 mL/min Estimated GFR (MDRD) 25.5 44.6 ml/min Glucose 126 H 132 H (74-106) mg/dL Calcium 10.1 9.2 (8.5-10.1) mg/dL Total Bilirubin (0.2-1.0) mg/dL AST (15-37) IU/L ALT (14-63) IU/L Alkaline Phosphatase (46-116) U/L Troponin I (0.000-0.056) ng/mL Total Protein (6.4-8.2) g/dL Albumin (3.4-5.0) g/dL Globulin (2.6-4.0) g/dL Albumin/Globulin Ratio (0.9-1.6) Result Diagrams: 06/22/18 18:54 06/23/18 09:05 Consult PN Assessment/Plan Procedures: Procedures AIRWAY INHALATION TREATMENT (05/20/18) ASSAY OF FERRITIN (05/20/18) ASSAY OF LACTIC ACID (11/30/15) ASSAY OF MAGNESIUM (05/20/18) ASSAY OF NATRIURETIC PEPTIDE (05/02/18) ASSAY OF PHOSPHORUS (05/20/18) ASSAY OF TROPONIN QUANT (05/02/18) ASSAY OF VANCOMYCIN (05/20/18) ASSAY THYROID STIM HORMONE (05/02/18) AUTOMATED RETICULOCYTE COUNT (05/20/18) BLOOD CULTURE FOR BACTERIA (05/20/18) BLOOD GASES ANY COMBINATION (05/02/18) C-REACTIVE PROTEIN (05/20/18) COMPLETE CBC W/AUTO DIFF WBC (05/20/18) COMPREHEN METABOLIC PANEL (05/20/18) CRITICAL CARE ADDL 30 MIN (05/02/18) CRITICAL CARE FIRST HOUR (05/02/18) DRUG TEST PRSMV DIR OPT OBS (05/02/18) ELECTROCARDIOGRAM TRACING (05/02/18) EMERGENCY DEPT VISIT (05/20/18) EMERGENCY DEPT VISIT (01/11/16) GLUCOSE BLOOD TEST (05/20/18) GLYCOSYLATED HEMOGLOBIN TEST (05/20/18) HELICOBACTER PYLORI ANTIBODY (05/20/18) HYDRATE IV INFUSION ADD-ON (05/02/18) HYDRATION IV INFUSION INIT (02/27/18) INSERT EMERGENCY AIRWAY (05/02/18) INSERT TEMP BLADDER CATH (05/02/18) IRON BINDING TEST (05/20/18) LIPID PANEL (05/20/18) OCCULT BLD FECES 1-3 TESTS (05/20/18) PROTHROMBIN TIME (05/02/18) RBC SED RATE AUTOMATED (01/11/16) ROUTINE VENIPUNCTURE (05/20/18) THER/PROPH/DIAG INJ IV PUSH (05/02/18) THER/PROPH/DIAG INJ SC/IM (01/11/16) THER/PROPH/DIAG IV INF INIT (05/20/18) TX GASTRO INTUB W/ASP (05/02/18) TX/PRO/DX INJ NEW DRUG ADDON (05/20/18) TX/PROPH/DG ADDL SEQ IV INF (05/20/18) URINALYSIS AUTO W/SCOPE (05/20/18) URINE CULTURE/COLONY COUNT (05/02/18) VENT MGMT INPAT INIT DAY (05/02/18) WITHDRAWAL OF ARTERIAL BLOOD (05/02/18) X-RAY EXAM CHEST 1 VIEW (05/20/18) X-RAY EXAM OF ANKLE (01/11/16) X-RAY EXAM OF FOOT (12/05/15) X-RAY EXAM OF PELVIS (01/11/16) (1) Syncopal episodes SNOMED Code(s): 389758352 Code(s): R55 - SYNCOPE AND COLLAPSE Current Visit: Yes Problem List Initiated/Reviewed/Updated: Yes My Orders Last 24 Hours: Loss of consciousness: hypersomnolence vs. syncope, vs. seizure This is a 58-year-old man with a history of atrial fibrillation, aspergillosis, chronic kidney disease admitted with hypoxia, acute kidney injury and frequent episodes of loss of consciousness. History is suggestive of hypersomnolence, possibly secondary to hypoxia/hypercarbia/hyperuremia. Acute presentation would be atypical for sleep apnea or primary disorder of hypersomnolence e.g. Narcolepsy. Other considerations include syncope secondary to arrhythmia. This would be an unusual presentation for seizures. CT showed hyperdense lesion posterior to right lateral ventricle, MRI brain is pending. It is unclear if this has any relationship to presentation. Rec: Telemetry and monitor mental status while addressing metabolic / respiratory disturbance. If episodes persist without clear cause, EEG and perhaps prolonged EEG monitoring may be indicated, which would require transfer.
[2018-06-23] MEDS: Ranitidine 15 MG/ML Syrup 10 ML UD Cup PO SCH ×2 (13:04→21:11)
--- NOTE | 2018-06-23 15:18 | MR ---
EXAMINATION: MR of the head without contrast. TECHNIQUE: Multiplanar multisequence imaging of the head without intravenous contrast. Diffusion weighted sequences were performed. HISTORY: Syncope. FINDINGS: The cerebral hemispheres and deep nuclei are without hemorrhage, mass, edema or atrophy. Small FLAIR hyperintensities in the white matter likely small areas of chronic ischemia. No evidence for restricted diffusion. There is a small nodular area within the right posterior periventricular white matter near the posterior horn of the lateral ventricle measuring 5 mm. This is surrounded by a dark, blooming cortex. This is near the region of the hyperdensity on the prior CT. No extraaxial collections or hemorrhage. The ventricular system is of normal size and configuration without hydrocephalus. The brainstem and cerebellum are without hemorrhage, mass, edema, gliosis or atrophy. Carotid basilar artery flow voids are intact. Venous sinuses are patent. No internal auditory canal or cerebellopontine angle masses. Mild mucosal thickening noted within the maxillary sinuses. The craniocervical junction is unremarkable. IMPRESSION: 1. Multiple 5 mm nodule within the right periventricular region with notable blooming on susceptibility weighted imaging. This suggests a high degree of hemosiderin or calcium. This most likely represents a small cavernous hemangioma however follow-up may be beneficial. Line 2. Otherwise mild small vessel ischemic changes.
--- NOTE | 2018-06-23 15:34 | PCM.SN ---
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 A cavernoma can be a seizure focus, but clinical presentation would very atypical for a seizure emanating from this focal lesion.
[2018-06-23] MEDS: methylPREDNISolone Sodium Succinate 125 MG/2 ML SDV IV SCH ×2 (17:37→23:11)
[2018-06-23] MEDS: Sodium Chloride 0.9% 1,000 ML IV SCH (21:10)
[2018-06-23] MEDS: traZODone 50 MG Tab PO SCH ×2 (21:12→21:14)
[2018-06-23] MEDS ORDERED: Furosemide 20 MG/2 ML VIAL ONE (23:25)
[2018-06-23] MEDS ORDERED: Furosemide 20 MG/2 ML VIAL IVPUSH ONE (23:27)
[2018-06-24] MEDS: methylPREDNISolone Sodium Succinate 125 MG/2 ML SDV IV SCH ×2 (06:24→11:57)
[2018-06-24] MEDS: Iron Polysaccharides Complex 150 MG Cap PO SCH (08:52)
[2018-06-24] MEDS: Metoprolol Tartrate 50 MG Tab PO SCH (08:52)
[2018-06-24] MEDS: Finasteride 5 MG Tab PO SCH (08:52)
[2018-06-24] MEDS: Pantoprazole 40 MG Tab.CR PO SCH (08:52)
[2018-06-24] MEDS: Diltiazem 120 MG Cap.CD PO SCH (08:52)
[2018-06-24] MEDS: Gabapentin 800 MG Tab PO SCH (08:52)
[2018-06-24] MEDS: Apixaban 5 MG Tab PO SCH (08:53)
[2018-06-24] MEDS: Tiotropium Inhaler 18 MCG Inhalation Powder Cap Kit of 5 INH SCH (08:53)
[2018-06-24] MEDS: VILANTEROL INH SCH (08:54)
[2018-06-24] MEDS: FLUTICASONE INH SCH (08:54)
[2018-06-24] MEDS: Ranitidine 15 MG/ML Syrup 10 ML UD Cup PO SCH (08:54)
[2018-06-24] MEDS: MIDODRINE 2.5 MG PO SCH (08:54)
[2018-06-24] MEDS: ICOSAPENT ETHYL 1 GM PO SCH (08:54)
[2018-06-24] MEDS: Morphine 15 MG Tab PO PRN (10:21)
--- NOTE | 2018-06-24 11:07 | PCM.PN ---
- Patient Data Vitals - Most Recent: Last Vital Signs Temp 36.6 C 06/24/18 08:00 Pulse 70 06/24/18 08:52 Resp 19 06/24/18 08:00 BP 153/78 H 06/24/18 08:52 Pulse Ox 95 06/24/18 08:00 Weight - Most Recent: 66.587 kg I&O - Last 24 Hours: Intake & Output 06/23/18 06/24/18 06/24/18 22:59 06:59 14:59 Intake Total 1350 1200 Output Total 0 2775 Balance 1350 -1575 Steve Results Last 24 Hours: Microbiology 06/22/18 16:30 Aerobic Blood Culture - Preliminary Blood - Venous - Lab Draw NO GROWTH AFTER 1 DAY Anaerobic Blood Culture - Preliminary NO GROWTH AFTER 1 DAY 06/22/18 16:16 Aerobic Blood Culture - Preliminary Blood - Venous NO GROWTH AFTER 1 DAY Anaerobic Blood Culture - Preliminary NO GROWTH AFTER 1 DAY Med Orders - Current: Current Medications Acetaminophen (Tylenol) 650 mg PO Q4H PRN PRN Reason: Pain (Mild 1-3)/fever Albuterol/Ipratropium (Duoneb 3.0-0.5 Mg/3 Ml) 3 ml NEB Q4HRRT PRN PRN Reason: Shortness Of Breath/wheezing Last Admin: 06/23/18 23:11 Dose: 3 ml Apixaban (Eliquis) 5 mg PO BID [facility] Last Admin: 06/24/18 08:53 Dose: 5 mg Diltiazem HCl (Cardizem Cd) 240 mg PO DAILY [facility] Last Admin: 06/24/18 08:52 Dose: 240 mg Finasteride (Proscar) 5 mg PO DAILY [facility] Last Admin: 06/24/18 08:52 Dose: 5 mg Gabapentin (Neurontin) 1,600 mg PO BID [facility] Last Admin: 06/24/18 08:52 Dose: 1,600 mg Methylprednisolone Sodium Succinate (Solu-Medrol) 60 mg IV Q6HR [facility] Last Admin: 06/24/18 06:24 Dose: 60 mg Metoprolol Tartrate (Lopressor) 50 mg PO BID [facility] Last Admin: 06/24/18 08:52 Dose: 50 mg Midodrine (Midodrine) 2.5 mg PO BID [facility] Morphine Sulfate (Morphine) 15 mg PO Q6H PRN PRN Reason: Pain Last Admin: 06/24/18 10:21 Dose: 15 mg Non-Formulary Medication (Fluticasone/Vilanterol) 1 inh INH DAILY [facility] Last Admin: 06/24/18 08:54 Dose: Not Given Non-Formulary Medication (Icosapent Ethyl [Vascepa]) 1 gm PO DAILY [facility] Last Admin: 06/24/18 08:54 Dose: Not Given Ondansetron HCl (Zofran) 4 mg IVPUSH Q4H PRN PRN Reason: Nausea Oxycodone HCl (Oxycodone) 5 mg PO Q4H PRN PRN Reason: Pain (moderate 4-6) Last Admin: 06/22/18 19:06 Dose: 5 mg Pantoprazole Sodium (Protonix) 40 mg PO DAILY [facility] Last Admin: 06/24/18 08:52 Dose: 40 mg Polysaccharide Iron Complex (Ferrex 150) 150 mg PO DAILY [facility] Last Admin: 06/24/18 08:52 Dose: 150 mg Ranitidine HCl (Zantac) 150 mg PO BID [facility] Last Admin: 06/24/18 08:54 Dose: 150 mg Sodium Chloride (Saline Flush) 10 ml FLUSH ASDIRECTED PRN PRN Reason: Keep Vein Open Last Admin: 06/22/18 16:34 Dose: 10 ml Sodium Chloride (Saline Flush) 2.5 ml FLUSH ASDIRECTED PRN PRN Reason: Keep Vein Open Last Admin: 06/22/18 16:34 Dose: 2.5 ml Tiotropium [place] (Spiriva Handihaler) 18 mcg INH BID [facility] Last Admin: 06/24/18 08:53 Dose: 18 mcg Trazodone HCl (Trazodone) 50 mg PO BEDTIME [facility] Last Admin: 06/23/18 21:14 Dose: Not Given Discontinued Medications Albuterol/Ipratropium (Duoneb 3.0-0.5 Mg/3 Ml) 3 ml NEB ONETIME ONE Stop: 06/22/18 15:58 Last Admin: 06/22/18 16:02 Dose: 3 ml Calcium Chloride (Calcium Chloride 10%) 1 gm IVPUSH ONETIME ONE Stop: 06/22/18 17:44 Last Admin: 06/22/18 18:07 Dose: 1 gm Dextrose/Water (Dextrose 50% In Water) 50 ml IVPUSH ONETIME ONE Stop: 06/22/18 17:44 Last Admin: 06/22/18 17:55 Dose: 50 ml Furosemide (Lasix) Confirm Administered Dose 20 mg .ROUTE .STK-MED ONE Stop: 06/23/18 23:26 Last Admin: 06/23/18 23:28 Dose: Not Given Furosemide (Lasix) 20 mg IVPUSH NOW ONE Stop: 06/23/18 23:28 Last Admin: 06/23/18 23:32 Dose: 20 mg Sodium Chloride (Normal Saline) 1,000 mls @ 999 mls/hr IV .Bolus ONE Stop: 06/22/18 16:57 Last Admin: 06/22/18 16:34 Dose: 999 mls/hr Sodium Chloride (Normal Saline) 1,000 mls @ 100 mls/hr IV ASDIRECTED DANIELITO Last Admin: 06/23/18 21:10 Dose: 100 mls/hr Insulin Human Regular (Novolin R) 10 unit IVPUSH ONETIME ONE; Protocol Stop: 06/22/18 17:31 Last Admin: 06/22/18 17:47 Dose: Not Given Insulin Human Regular (Novolin R) 10 unit IVPUSH ONETIME ONE; Protocol Stop: 06/22/18 17:44 Last Admin: 06/22/18 17:45 Dose: 10 units Methylprednisolone Sodium Succinate (Solu-Medrol) 125 mg IVPUSH ONETIME ONE Stop: 06/22/18 15:59 Last Admin: 06/22/18 16:34 Dose: 125 mg Methylprednisolone Sodium Succinate (Solu-Medrol) 60 mg IV Q6H [facility] Last Admin: 06/23/18 13:05 Dose: 60 mg Non-Formulary Medication (Midodrine) 2.5 mg PO BID [facility] Last Admin: 06/24/18 08:54 Dose: Not Given Non-Formulary Medication (Tiotropium [place] [Spiriva Respimat]) 2 puff INH BID [facility] Last Admin: 06/22/18 21:18 Dose: Not Given Prednisone (Prednisone) 20 mg PO DAILY [facility] Last Admin: 06/23/18 08:46 Dose: 20 mg Sodium Bicarbonate (Sodium Bicarbonate 8.4%) 50 meq IVPUSH ONETIME ONE Stop: 06/22/18 17:44 Last Admin: 06/22/18 17:55 Dose: 50 meq Sodium Polystyrene Sulfonate (Kayexalate) 15 gm PO ONETIME ONE Stop: 06/22/18 17:31 Last Admin: 06/22/18 17:43 Dose: 15 gm - My Orders Last 24 Hours: My Active Orders 06/23/18 13:00 Ranitidine [Zantac] 150 mg PO BID 06/27/18 19:08 EEG Awake Drowsy [RC] ROUTINE - Plan Plan:: Assessment: #1. Multiple syncopal episodes #2. Lesion noted on right occiptal lobe #3. Hyperkalemia #4. Acute hypoxic respiratory failure #5. Acute on chronic kidney injury #6. History of A. Fibrillation on chronic anticoagulation #7. History of aspergillosis w/ obstructive disease, CKD, TIA Plan: #1. Obtain chest CT for further work up of nodule of noted on CXR and worsening hypoxia #2. F/u on MRI brain - will not be able to get an EEG until Tuesday at the earliest #3. Continue current management.
--- NOTE | 2018-06-24 12:22 | PCM.DCSUM1 ---
Discharge Summary - Hospital Course Diagnosis: Stroke: No - Discharge Data Discharge Date: 06/25/18 Discharge Disposition: Home, Self-Care 01 Condition: Stable - Discharge Diagnosis/Problem(s) (1) Chronic renal insufficiency SNOMED Code(s): 288886938 ICD Code: N18.9 - CHRONIC KIDNEY DISEASE, UNSPECIFIED Status: Chronic Priority: High Qualifiers: Chronic kidney disease stage: stage 3 (moderate) Qualified Code(s): N18.3 - Chronic kidney disease, stage 3 (moderate) (2) Hyperkalemia SNOMED Code(s): 07813218 ICD Code: E87.5 - HYPERKALEMIA Status: Resolved Priority: High (3) Syncopal episodes SNOMED Code(s): 273424623 ICD Code: R55 - SYNCOPE AND COLLAPSE Status: Resolved Priority: High Qualifiers: Syncope type: unspecified Qualified Code(s): R55 - Syncope and collapse (4) Acute respiratory failure SNOMED Code(s): 53894015 ICD Code: J96.00 - ACUTE RESPIRATORY FAILURE, UNSP W HYPOXIA OR HYPERCAPNIA Status: Resolved Priority: High Qualifiers: Respiratory failure complication: hypoxia Qualified Code(s): J96.01 - Acute respiratory failure with hypoxia - Patient Summary/Data Hospital Course: The patient is a 58-year-old gentleman who has a complex history including A. 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 Patient tells me the first time this happened on Tuesday, he was doing his taxes, when he completely went limp for a second and then came back to consciousness. He thinks that he may have bit his tongue. Multiple similar episodes have occurred daily since then, two of which were witnessed by RT in the ER. CT scan shows a possible subacute hemorrhage in the right occiptal lobe. Patient says that he is aware of a lesion that was noted on a CT of his brain 20 years ago. MRI was obtained on June 22, 2018 which did not show any evidence of hemorrhage. He did however, have multiple 5 mm nodules in the right periventricular region that was suggestive of hemosiderin or calcium. Otherwise he had small vessel ischemic changes. The patient also has been on chronic steroid uses for approximately 20 years secondary to aspergillosis. Down the short course of hospitalization the patient also had been consulted with neurology resident regards to his episodes of "passing out" and the neurologist that this this was not similar to either seizure disorder or narcolepsy. The patient had no evidence of urinary incontinence. The patient had explained these episodes on not being able to sleep at night and being very sleepy during the day which caused him to have multiple episodes where he would spontaneously fall asleep. This occurred sometimes during the middle of conversation. The patient today says that he feels good he has slept well and he has had no further episodes of the "passing out" that brought into the ER. By day of discharge the patient was hemodynamically stable. He also had been tolerating his diet. The patient has been recommended to continue with his diet as tolerated. He is also having his activity as tolerated. The patient further has been recommended to follow up with neurology and also with his primary care physician. The patient has been hemodynamically stable and he has been discharged from acute hospitalization with the recommendations listed above. - Patient Instructions Diet: Heart Healthy Diet Activity: As Tolerated - Discharge Plan *PRESCRIPTION DRUG MONITORING PROGRAM REVIEWED*: No *COPY OF PRESCRIPTION DRUG MONITORING REPORT IN PATIENT KECIA: No Home Medications: Home Meds Finasteride 5 mg PO DAILY 01/11/16 [History] Fluticasone/Vilanterol [Breo Ellipta 200-25 Mcg INH] 1 inh INH DAILY 01/11/16 [ History] Gabapentin [Neurontin] 1,600 mg PO BID 01/11/16 [History] Testosterone [Androgel] 4 pump TOP DAILY 01/11/16 [History] predniSONE [Prednisone] 20 mg PO DAILY 01/11/16 [History] Tiotropium [place] [Spiriva Respimat] 2 puff INH BID 01/12/16 [History] Morphine 15 mg PO Q6H PRN #10 tablet 01/15/16 [Rx] Albuterol Sulfate 2.5 mg IH DAILY 05/19/18 [History] Apixaban [Eliquis] 5 mg PO BID 05/19/18 [History] Diltiazem HCl [Diltiazem 24Hr ER] 240 mg PO DAILY 05/19/18 [History] Icosapent Ethyl [Vascepa] 1 gm PO DAILY 05/19/18 [History] Pantoprazole [ProTONIX] 40 mg PO DAILY 05/19/18 [History] Clindamycin HCl 300 mg PO Q8H 05/20/18 [History] Metoprolol Tartrate 50 mg PO BID 05/20/18 [History] Midodrine 2.5 mg PO BID 05/20/18 [History] traZODone HCl [Trazodone HCl] 50 mg PO BEDTIME 05/20/18 [History] Clindamycin HCl [Cleocin] 300 mg PO Q8H 7 Days cap 05/23/18 [Rx] Iron Polysaccharides Complex [Ferrex 150] 150 mg PO DAILY 30 Days #30 cap [Rx] Oxygen Therapy Mode: Room Air Patient Handouts: Hyperkalemia, [id number], Acute Respiratory Failure, Adult , Syncope, [id number] Referrals: Connor Melchor MD [Ordering Only Provider] - 06/29/18 () - Discharge Summary/Plan Comment DC Time >30 min.: Yes - General Info Date of Service: 06/25/18 Admission Dx/Problem (Free Text: Admission Diagnosis/Problem Admission Diagnosis/Problem Syncope Subjective Update: Better. Not passing out. Not as tired. Functional Status: Reports: Pain Controlled, Tolerating Diet - Review of Systems General: Reports: No Symptoms HEENT: Reports: No Symptoms Pulmonary: Reports: No Symptoms Cardiovascular: Reports: No Symptoms Gastrointestinal: Reports: No Symptoms Genitourinary: Reports: No Symptoms Musculoskeletal: Reports: No Symptoms Skin: Reports: No Symptoms Neurological: Reports: No Symptoms Psychiatric: Reports: No Symptoms - Patient Data Vitals - Most Recent: Last Vital Signs Temp 36.6 C 06/24/18 08:00 Pulse 70 06/24/18 08:52 Resp 19 06/24/18 08:00 BP 153/78 H 06/24/18 08:52 Pulse Ox 95 06/24/18 08:00 Weight - Most Recent: 66.587 kg I&O - Last 24 hours: Intake & Output 06/23/18 06/24/18 06/24/18 22:59 06:59 14:59 Intake Total 1350 1200 Output Total 0 2775 Balance 1350 -1575 SHILOH Results - Last 24 hrs: Microbiology 06/22/18 16:30 Aerobic Blood Culture - Preliminary Blood - Venous - Lab Draw NO GROWTH AFTER 1 DAY Anaerobic Blood Culture - Preliminary NO GROWTH AFTER 1 DAY 06/22/18 16:16 Aerobic Blood Culture - Preliminary Blood - Venous NO GROWTH AFTER 1 DAY Anaerobic Blood Culture - Preliminary NO GROWTH AFTER 1 DAY Med Orders - Current: Current Medications Acetaminophen (Tylenol) 650 mg PO Q4H PRN PRN Reason: Pain (Mild 1-3)/fever Albuterol/Ipratropium (Duoneb 3.0-0.5 Mg/3 Ml) 3 ml NEB Q4HRRT PRN PRN Reason: Shortness Of Breath/wheezing Last Admin: 06/23/18 23:11 Dose: 3 ml Apixaban (Eliquis) 5 mg PO BID [facility] Last Admin: 06/24/18 08:53 Dose: 5 mg Diltiazem HCl (Cardizem Cd) 240 mg PO DAILY [facility] Last Admin: 06/24/18 08:52 Dose: 240 mg Finasteride (Proscar) 5 mg PO DAILY [facility] Last Admin: 06/24/18 08:52 Dose: 5 mg Gabapentin (Neurontin) 1,600 mg PO BID [facility] Last Admin: 06/24/18 08:52 Dose: 1,600 mg Methylprednisolone Sodium Succinate (Solu-Medrol) 60 mg IV Q6HR [facility] Last Admin: 06/24/18 11:57 Dose: 60 mg Metoprolol Tartrate (Lopressor) 50 mg PO BID [facility] Last Admin: 06/24/18 08:52 Dose: 50 mg Midodrine (Midodrine) 2.5 mg PO BID [facility] Morphine Sulfate (Morphine) 15 mg PO Q6H PRN PRN Reason: Pain Last Admin: 06/24/18 10:21 Dose: 15 mg Non-Formulary Medication (Fluticasone/Vilanterol) 1 inh INH DAILY [facility] Last Admin: 06/24/18 08:54 Dose: Not Given Non-Formulary Medication (Icosapent Ethyl [Vascepa]) 1 gm PO DAILY [facility] Last Admin: 06/24/18 08:54 Dose: Not Given Ondansetron HCl (Zofran) 4 mg IVPUSH Q4H PRN PRN Reason: Nausea Oxycodone HCl (Oxycodone) 5 mg PO Q4H PRN PRN Reason: Pain (moderate 4-6) Last Admin: 06/22/18 19:06 Dose: 5 mg Pantoprazole Sodium (Protonix) 40 mg PO DAILY [facility] Last Admin: 06/24/18 08:52 Dose: 40 mg Polysaccharide Iron Complex (Ferrex 150) 150 mg PO DAILY [facility] Last Admin: 06/24/18 08:52 Dose: 150 mg Ranitidine HCl (Zantac) 150 mg PO BID [facility] Last Admin: 06/24/18 08:54 Dose: 150 mg Sodium Chloride (Saline Flush) 10 ml FLUSH ASDIRECTED PRN PRN Reason: Keep Vein Open Last Admin: 06/22/18 16:34 Dose: 10 ml Sodium Chloride (Saline Flush) 2.5 ml FLUSH ASDIRECTED PRN PRN Reason: Keep Vein Open Last Admin: 06/22/18 16:34 Dose: 2.5 ml Tiotropium [place] (Spiriva Hand[place]haler) 18 mcg INH BID [facility] Last Admin: 06/24/18 08:53 Dose: 18 mcg Trazodone HCl (Trazodone) 50 mg PO BEDTIME [facility] Last Admin: 06/23/18 21:14 Dose: Not Given Discontinued Medications Albuterol/Ipratropium (Duoneb 3.0-0.5 Mg/3 Ml) 3 ml NEB ONETIME ONE Stop: 06/22/18 15:58 Last Admin: 06/22/18 16:02 Dose: 3 ml Calcium Chloride (Calcium Chloride 10%) 1 gm IVPUSH ONETIME ONE Stop: 06/22/18 17:44 Last Admin: 06/22/18 18:07 Dose: 1 gm Dextrose/Water (Dextrose 50% In Water) 50 ml IVPUSH ONETIME ONE Stop: 06/22/18 17:44 Last Admin: 06/22/18 17:55 Dose: 50 ml Furosemide (Lasix) Confirm Administered Dose 20 mg .ROUTE .STK-MED ONE Stop: 06/23/18 23:26 Last Admin: 06/23/18 23:28 Dose: Not Given Furosemide (Lasix) 20 mg IVPUSH NOW ONE Stop: 06/23/18 23:28 Last Admin: 06/23/18 23:32 Dose: 20 mg Sodium Chloride (Normal Saline) 1,000 mls @ 999 mls/hr IV .Bolus ONE Stop: 06/22/18 16:57 Last Admin: 06/22/18 16:34 Dose: 999 mls/hr Sodium Chloride (Normal Saline) 1,000 mls @ 100 mls/hr IV ASDIRECTED [facility] Last Admin: 06/23/18 21:10 Dose: 100 mls/hr Insulin Human Regular (Novolin R) 10 unit IVPUSH ONETIME ONE; Protocol Stop: 06/22/18 17:31 Last Admin: 06/22/18 17:47 Dose: Not Given Insulin Human Regular (Novolin R) 10 unit IVPUSH ONETIME ONE; Protocol Stop: 06/22/18 17:44 Last Admin: 06/22/18 17:45 Dose: 10 units Methylprednisolone Sodium Succinate (Solu-Medrol) 125 mg IVPUSH ONETIME ONE Stop: 06/22/18 15:59 Last Admin: 06/22/18 16:34 Dose: 125 mg Methylprednisolone Sodium Succinate (Solu-Medrol) 60 mg IV Q6H [facility] Last Admin: 06/23/18 13:05 Dose: 60 mg Non-Formulary Medication (Midodrine) 2.5 mg PO BID [facility] Last Admin: 06/24/18 08:54 Dose: Not Given Non-Formulary Medication (Tiotropium [place] [Spiriva Respimat]) 2 puff INH BID [facility] Last Admin: 06/22/18 21:18 Dose: Not Given Prednisone (Prednisone) 20 mg PO DAILY [facility] Last Admin: 06/23/18 08:46 Dose: 20 mg Sodium Bicarbonate (Sodium Bicarbonate 8.4%) 50 meq IVPUSH ONETIME ONE Stop: 06/22/18 17:44 Last Admin: 06/22/18 17:55 Dose: 50 meq Sodium Polystyrene Sulfonate (Kayexalate) 15 gm PO ONETIME ONE Stop: 06/22/18 17:31 Last Admin: 06/22/18 17:43 Dose: 15 gm - Exam Quality Assessment: Reports: Supplemental Oxygen, Central Line/PICC General: Reports: Alert, Oriented, Cooperative, No Acute Distress HEENT: Reports: Pupils Equal, Pupils Reactive, EOMI, Mucous Membr. Moist/[place] Neck: Reports: Supple, Trachea Midline, No JVD Lungs: Reports: Clear to Auscultation, Normal Respiratory Effort Cardiovascular: Reports: Regular Rate, Regular Rhythm GI/Abdominal Exam: Normal Bowel Sounds, Soft, Non-Tender, No Distention (Male) Exam: Deferred Rectal (Males) Exam: Deferred Back Exam: Reports: Normal Inspection, Full Range of Motion Extremities: Normal Inspection, No Pedal Edema Skin: Reports: Warm, Dry, Intact Wound/Incisions: Reports: Healing Well Neurological: Reports: No New Focal Deficit, Normal Gait, Normal Speech Psy/Mental Status: Reports: Alert, Normal Affect, Normal Mood
[2018-06-24 13:38] VITALS: BP 132/71
[2018-06-24] MEDS ORDERED: Midodrine 5 MG Tab PO SCH (21:00)
== END 2018-06-24 13:50 | disposition home or self-care (01) | DRG 189 ==
LOC: MW.ED 15:06 → MW.ICU 17:45 → OBSVTOIN 06-23 10:46 → MW.MS 06-23 12:54
PROVIDERS: ADMIT Internal Medicine; ATTEND Internal Medicine
DX: R55 Syncope and collapse (principal); J96.01 Acute respiratory failure with hypoxia; I13.0 Hypertensive heart and chronic kidney disease with heart failure and stage 1 through stage 4 chronic kidney disease, or unspecified chronic kidney disease; B44.1 Other pulmonary aspergillosis; I42.9 Cardiomyopathy, unspecified; N28.9 Disorder of kidney and ureter, unspecified; I48.91 Unspecified atrial fibrillation; N17.9 Acute kidney failure, unspecified; N18.9 Chronic kidney disease, unspecified; R91.1 Solitary pulmonary nodule; I48.0 Paroxysmal atrial fibrillation; G60.9 Hereditary and idiopathic neuropathy, unspecified; D18.02 Hemangioma of intracranial structures; E87.5 Hyperkalemia; I50.9 Heart failure, unspecified; J45.909 Unspecified asthma, uncomplicated; G62.9 Polyneuropathy, unspecified; K21.9 Gastro-esophageal reflux disease without esophagitis; M19.90 Unspecified osteoarthritis, unspecified site; M54.9 Dorsalgia, unspecified; G89.29 Other chronic pain; M81.0 Age-related osteoporosis without current pathological fracture; M06.9 Rheumatoid arthritis, unspecified; F32.9 Major depressive disorder, single episode, unspecified; I25.2 Old myocardial infarction; Z85.820 Personal history of malignant melanoma of skin; Z86.73 Personal history of transient ischemic attack (TIA), and cerebral infarction without residual deficits; Z90.2 Acquired absence of lung [part of]; Z79.52 Long term (current) use of systemic steroids; Z96.642 Presence of left artificial hip joint; Z87.442 Personal history of urinary calculi; Z87.440 Personal history of urinary (tract) infections; Z90.5 Acquired absence of kidney; R91.8 Other nonspecific abnormal finding of lung field; R42 Dizziness and giddiness; Z88.1 Allergy status to other antibiotic agents; Z86.711 Personal history of pulmonary embolism; Z87.01 Personal history of pneumonia (recurrent); Z88.8 Allergy status to other drugs, medicaments and biological substances; Z79.899 Other long term (current) drug therapy; Z79.01 Long term (current) use of anticoagulants
CPT/HCPCS: 36415 ×2; 70450; 70551; 71045; 80048 ×2; 80053; 83605; 84484; 85025; 87040 ×2; 93005; 94640; 96361; 96374; 96375; 99285; A9270 ×15; J2930; J7040 ×2; J7060; J7512; 71250; 71250-26; J1815-GY; J7620-GY

== ENCOUNTER 2018-06-29 15:00 | Emergency (ER) | payer MEDICARE, OTHER ==
--- NOTE | 2018-06-29 15:08 | EDM.PDOC ---
ED HPI GENERAL MEDICAL PROBLEM - General Stated Complaint: PAIN IN RT BACK AND HIP Time Seen by Provider: 06/29/18 15:01 Source of Information: Reports: Patient History Limitations: Reports: No Limitations - History of Present Illness INITIAL COMMENTS - FREE TEXT/NARRATIVE: History of present illness: []Patient started having right sacroiliac pain yesterday, denies any trauma, radiation of pain, numbness or tingling. Difficulty urinating, fevers vomiting or diarrhea. Review of systems: As per history of present illness and below otherwise all systems reviewed and negative. Past medical history: As per history of present illness and as reviewed below otherwise noncontributory. Surgical history: As per history of present illness and as reviewed below otherwise noncontributory. Social history: No reported history of drug or alcohol abuse. Family history: As per history of present illness and as reviewed below otherwise noncontributory. Physical exam: General: Well developed, well nourished in NAD HEENT: Atraumatic, normocephalic, pupils reactive, negative for conjunctival pallor or scleral icterus, mucous membranes moist, throat clear, neck supple, nontender, trachea midline. Lungs: Clear to auscultation, breath sounds equal bilaterally, chest nontender. Heart: S1S2, regular, negative for clicks, rubs, or JVD. Abdomen: NABS, Soft, nondistended, nontender. Negative for masses or hepatosplenomegaly. Negative for costovertebral tenderness. Pain over her right sacroiliac Pelvis: Stable nontender. Genitourinary: Deferred. Rectal: Deferred. Extremities: Atraumatic, negative for cords or calf pain. Neurovascular unremarkable. Neuro: Awake, alert, oriented. Cranial nerves II through XII unremarkable. Cerebellum unremarkable. Motor and sensory unremarkable throughout. Exam nonfocal. Skin:warm and dry Diagnostics: UA needed for cells, positive for glucose and protein, bedside glucose- Therapeutics: Tramadol, patient refused, glucose 246 ED Course: Unremarkable Impression: Right Sacroiliitis Prescriptions: None Plan: Take ibuprofen, use ice and heat follow-up with primary care Definitive disposition and diagnosis as appropriate pending reevaluation and review of above. Right lower Back Pain Score (Numeric/FACES): 8 - Related Data Allergies Allergy/AdvReac Type Severity Reaction Status Date / Time itraconazole [From Sporanox] Allergy Unknown Confusion Verified 06/29/18 15:15 levofloxacin [From Levaquin] Allergy Unknown Other Verified 06/29/18 15:15 Home Meds: Home Meds Finasteride 5 mg PO DAILY 01/11/16 [History] Fluticasone/Vilanterol [Breo Ellipta 200-25 Mcg INH] 1 inh INH DAILY 01/11/16 [ History] Gabapentin [Neurontin] 1,600 mg PO BID 01/11/16 [History] Testosterone [Androgel] 4 pump TOP DAILY 01/11/16 [History] predniSONE [Prednisone] 20 mg PO DAILY 01/11/16 [History] Tiotropium [place] [Spiriva Respimat] 2 puff INH BID 01/12/16 [History] Morphine 15 mg PO Q6H PRN #10 tablet 01/15/16 [Rx] Albuterol Sulfate 2.5 mg IH DAILY 05/19/18 [History] Apixaban [Eliquis] 5 mg PO BID 05/19/18 [History] Diltiazem HCl [Diltiazem 24Hr ER] 240 mg PO DAILY 05/19/18 [History] Icosapent Ethyl [Vascepa] 1 gm PO DAILY 05/19/18 [History] Pantoprazole [ProTONIX] 40 mg PO DAILY 05/19/18 [History] Clindamycin HCl 300 mg PO Q8H 05/20/18 [History] Metoprolol Tartrate 50 mg PO BID 05/20/18 [History] Midodrine 2.5 mg PO BID 05/20/18 [History] traZODone HCl [Trazodone HCl] 50 mg PO BEDTIME 05/20/18 [History] Clindamycin HCl [Cleocin] 300 mg PO Q8H 7 Days cap 05/23/18 [Rx] Iron Polysaccharides Complex [Ferrex 150] 150 mg PO DAILY 30 Days #30 cap [Rx] Past Medical History HEENT History: Reports: Cataract Other HEENT History: dental fillings due to caries; recent tooth fracture Cardiovascular History: Reports: Afib, Cardiomyopathy, Heart Failure, Hypertension, PR Respiratory History: Reports: Asthma, Bronchitis, Recurrent, PE, Pneumonia, Recurrent, Other (See Below) Other Respiratory History: Chronic pulmonary aspergillosis, 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 bilateral achilles tendon ruptures and repair. 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 No explantation- -they apparently just treated him with IV abx for months. - Past Surgical History HEENT Surgical History: Reports: Cataract Surgery Respiratory Surgical History: Reports: Lung Resection Other Respiratory Surgeries/Procedures: intubated last Feb 2018 and transfered to [place] Musculoskeletal Surgical History: Reports: Shoulder Surgery, Other (See Below) Other Musculoskeletal Surgeries/Procedures:: L shoulder and left hip surgery Social & Family History - Family History Family Medical History: Noncontributory - Caffeine Use Caffeine Use: Reports: Coffee - Living Situation & Occupation Living situation: Reports: Single Occupation: Disabled ED ROS GENERAL - Review of Systems Review Of Systems: ROS reveals no pertinent complaints other than HPI. ED EXAM,LOWER BACK PAIN/INJURY - Physical Exam Exam: See Below (History of present illness) Course - Vital Signs Last Recorded V/S: Last Vital Signs Temp 98.5 F 06/29/18 15:12 Pulse 96 06/29/18 15:12 Resp 16 06/29/18 15:12 BP 95/53 L 06/29/18 15:12 Pulse Ox 92 L 06/29/18 15:20 - Orders/Labs/Meds Orders: Active Orders 24 hr Category Date Time Status Blood Glucose Check, Bedside [RC] ONETIME Care 06/29/18 16:56 Active Insert Urinary Catheter [OM.PC] Q24H Care 06/29/18 16:30 Ordered Urinary Catheter Assessment [RC] ASDIRECTED Care 06/29/18 16:27 Active Labs: Laboratory Tests 06/29/18 Range/Units 16:28 Urine Color YELLOW Urine Appearance CLEAR Urine pH 6.0 (5.0-8.0) Ur Specific [place] 1.015 (1.001-1.035) Urine Protein 30 H (NEGATIVE) mg/dL Urine Glucose (UA) 500 H (NEGATIVE) mg/dL Urine Ketones NEGATIVE (NEGATIVE) mg/dL Urine Occult Blood TRACE-INTACT H (NEGATIVE) Urine Nitrite NEGATIVE (NEGATIVE) Urine Bilirubin NEGATIVE (NEGATIVE) Urine Urobilinogen 0.2 (<2.0) EU/dL Ur Leukocyte Esterase NEGATIVE (NEGATIVE) Urine RBC 0-2 (0-2/HPF) Urine WBC 0-1 (0-5/HPF) Ur Epithelial Cells RARE (NONE-FEW) Urine Bacteria RARE (NEGATIVE) Meds: Medications Discontinued Medications Generic Name Dose Route Start Last Admin Trade Name Freq PRN Reason Stop Dose Admin Tramadol HCl 50 mg 06/29/18 15:14 06/29/18 16:05 Ultram PO 06/29/18 15:15 Not Given ONETIME ONE Departure - Departure Time of Disposition: 17:11 Disposition: Home, Self-Care 01 Condition: Good Clinical Impression: Sacroiliitis - Discharge Information *PRESCRIPTION DRUG MONITORING PROGRAM REVIEWED*: No *COPY OF PRESCRIPTION DRUG MONITORING REPORT IN PATIENT KECIA: No Referrals: PCP,Unknown [Primary Care Provider] - Additional Instructions: The following information is given to patients seen in the emergency department who are being discharged to home. This information is to outline your options for follow-up care. We provide all patients seen in our emergency department with a follow-up referral. The need for follow-up, as well as the timing and circumstances, are variable depending upon the specifics of your emergency department visit. If you don't have a primary care physician on staff, we will provide you with a referral. We always advise you to contact your personal physician following an emergency department visit to inform them of the circumstance of the visit and for follow-up with them and/or the need for any referrals to a consulting specialist. The emergency department will also refer you to a specialist when appropriate. This referral assures that you have the opportunity for follow-up care with a specialist. All of these measure are taken in an effort to provide you with optimal care, which includes your follow-up. Under all circumstances we always encourage you to contact your private physician who remains a resource for coordinating your care. When calling for follow-up care, please make the office aware that this follow-up is from your recent emergency room visit. If for any reason you are refused follow-up, please contact the Emergency Department at and asked to speak to the emergency department charge nurse. Ibuprofen, ice, heat to area of pain, follow-up with primary care Primary Care [address] [place] [id number] - My Orders Last 24 Hours: My Active Orders 06/29/18 16:27 Urinary Catheter Assessment [RC] ASDIRECTED 06/29/18 16:30 Insert Urinary Catheter [OM.PC] Q24H 06/29/18 16:56 Blood Glucose Check, Bedside [RC] ONETIME - Assessment/Plan Last 24 Hours: My Active Orders 06/29/18 16:27 Urinary Catheter Assessment [RC] ASDIRECTED 06/29/18 16:30 Insert Urinary Catheter [OM.PC] Q24H 06/29/18 16:56 Blood Glucose Check, Bedside [RC] ONETIME
[2018-06-29] MEDS ORDERED: traMADol 50 MG Tab PO ONE (15:14)
[2018-06-29] MEDS ORDERED: Albuterol/Ipratropium 3.0-0.5 MG/3 ML Neb Soln NEB ONE (17:18)
[2018-06-29] MEDS ORDERED: predniSONE 20 MG Tab PO ONE (17:19)
--- NOTE | 2018-06-29 18:42 | CR ---
INDICATION: Pain/SOB INDICATION: Pain,shortness of breath TECHNIQUE: Chest 2 views. COMPARISON: 06/22/2018 FINDINGS: Cardiovascular and mediastinum: Heart size and vasculature are normal in caliber and appearance. Mediastinum is within normal limits. Lungs and pleural spaces: Lungs are clear. No sign of infiltrate or mass. No sign of pleural effusion. No pneumothorax. Bones and soft tissues: Left shoulder arthroplasty. Severe compression deformity lower thoracic spine. IMPRESSION: Unremarkable chest. Dictated by Juanpablo Gunderson MD @ 06/29/2018 6:40:17 PM Dictated by: Juanpablo Gunderson MD @ 06/29/2018 18:40:23 (Electronically Signed)
[2018-06-30 03:15] VITALS: BP 109/69
== END 2018-06-29 18:57 | disposition home or self-care (01) ==
LOC: MW.ED 15:00
DX: M46.1 Sacroiliitis, not elsewhere classified (principal); I48.91 Unspecified atrial fibrillation; I11.0 Hypertensive heart disease with heart failure; I50.9 Heart failure, unspecified; I25.2 Old myocardial infarction; J45.909 Unspecified asthma, uncomplicated; F32.9 Major depressive disorder, single episode, unspecified; Z88.8 Allergy status to other drugs, medicaments and biological substances; Z79.899 Other long term (current) drug therapy
CPT/HCPCS: 51702; 71046; 81001; 94640; 99284; A9270; 99283; J7620-GY

== ENCOUNTER 2018-07-02 19:55 | Inpatient (IN) | payer MEDICARE, OTHER ==
--- NOTE | 2018-07-02 20:34 | EDM.PDOC ---
ED HPI GENERAL MEDICAL PROBLEM - General Chief Complaint: Upper Extremity Injury/Pain Stated Complaint: PT HURT RT ARM Time Seen by Provider: 07/02/18 20:01 - History of Present Illness INITIAL COMMENTS - FREE TEXT/NARRATIVE: HISTORY AND PHYSICAL: History of present illness: Patient is a 58-year-old male with extensive past medical history including atrial fibrillation aspergillosis who presents with a concern of swelling to his right wrist and a chronic ulcer to his left foot and now has developed more erythema swelling and tenderness. He denies fever chills he was seen recently for hip pain and diagnosed with sacroiliitis he has been seen in the past by myself under extreme circumstances that did require intubation and airlifted to [facility] for tertiary care. Review of systems: As per history of present illness and below otherwise all systems reviewed and negative. Past medical history: As per history of present illness and as reviewed below otherwise noncontributory. Surgical history: As per history of present illness and as reviewed below otherwise noncontributory. Social history: No reported history of drug or alcohol abuse. Family history: As per history of present illness and as reviewed below otherwise noncontributory. Physical exam: HEENT: Atraumatic, normocephalic, pupils reactive, negative for conjunctival pallor or scleral icterus, mucous membranes moist, throat clear, neck supple, nontender, trachea midline. Lungs: Coarse bilaterally, breath sounds equal bilaterally, chest nontender. Heart: S1S2, regular, negative for clicks, rubs, or JVD. Abdomen: Soft, nondistended, nontender. Negative for masses or hepatosplenomegaly. Negative for costovertebral tenderness. Pelvis: Stable nontender. Genitourinary: Deferred. Rectal: Deferred. Extremities: Right wrist and hand have moderate edema and ecchymosis to varying degrees no gross deformity no crepitation neurovascular exam is unremarkable left leg has a ulcer noted on the dorsal lateral aspect he has erythema that extends to his mid left leg with significant edema and mild warmth there's no coarse pain Neuro: Awake, alert, oriented. Cranial nerves II through XII unremarkable. Cerebellum unremarkable. Motor and sensory unremarkable throughout. Exam nonfocal. Diagnostics: CBC CMP EKG x-ray right wrist/hand x-ray left ankle foot culture 2 lactic acid Therapeutics: Saline at 125 an hour vancomycin 1 g IV Impression: #1 cellulitis left lower extremity #2 history of aspergillosis #3 history of chronic A. fib Definitive disposition and diagnosis as appropriate pending reevaluation and review of above. - Related Data Allergies Allergy/AdvReac Type Severity Reaction Status Date / Time itraconazole [From Sporanox] Allergy Unknown Confusion Verified 07/02/18 20:33 levofloxacin [From Levaquin] Allergy Unknown Other Verified 07/02/18 20:33 Home Meds: Home Meds Finasteride 5 mg PO DAILY 01/11/16 [History] Fluticasone/Vilanterol [Breo Ellipta 200-25 Mcg INH] 1 inh INH DAILY 01/11/16 [ History] Gabapentin [Neurontin] 1,600 mg PO BID 01/11/16 [History] Testosterone [Androgel] 4 pump TOP DAILY 01/11/16 [History] predniSONE [Prednisone] 20 mg PO DAILY 01/11/16 [History] Tiotropium [place] [Spiriva Respimat] 2 puff INH BID 01/12/16 [History] Morphine 15 mg PO Q6H PRN #10 tablet 01/15/16 [Rx] Albuterol Sulfate 2.5 mg IH DAILY 05/19/18 [History] Apixaban [Eliquis] 5 mg PO BID 05/19/18 [History] Diltiazem HCl [Diltiazem 24Hr ER] 240 mg PO DAILY 05/19/18 [History] Icosapent Ethyl [Vascepa] 1 gm PO DAILY 05/19/18 [History] Pantoprazole [ProTONIX] 40 mg PO DAILY 05/19/18 [History] Metoprolol Tartrate 50 mg PO BID 05/20/18 [History] Midodrine 2.5 mg PO BID 05/20/18 [History] traZODone HCl [Trazodone HCl] 50 mg PO BEDTIME 05/20/18 [History] Iron Polysaccharides Complex [Ferrex 150] 150 mg PO DAILY 30 Days #30 cap [Rx] Albuterol [Proventil Neb Soln] 2.5 mg NEB Q4HR PRN #15 neb 06/29/18 [Rx] Diclofenac Sodium [Voltaren 1%] 1 applic TP QID #1 tube 06/29/18 [Rx] predniSONE [Prednisone] 20 mg PO DAILY #5 tablet 06/29/18 [Rx] Past Medical History HEENT History: Reports: Cataract Other HEENT History: dental fillings due to caries; recent tooth fracture Cardiovascular History: Reports: Afib, Cardiomyopathy, Heart Failure, Hypertension, [place] Respiratory History: Reports: Asthma, Bronchitis, Recurrent, PE, Pneumonia, Recurrent, Other (See Below) Other Respiratory History: Chronic pulmonary aspergillosis, 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 bilateral achilles tendon ruptures and repair. 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 No explantation- -they apparently just treated him with IV abx for months. - Past Surgical History HEENT Surgical History: Reports: Cataract Surgery Respiratory Surgical History: Reports: Lung Resection Other Respiratory Surgeries/Procedures: intubated last Feb 2018 and transfered to [place] Musculoskeletal Surgical History: Reports: Shoulder Surgery, Other (See Below) Other Musculoskeletal Surgeries/Procedures:: L shoulder and left hip surgery Social & Family History - Family History Family Medical History: Noncontributory - Caffeine Use Caffeine Use: Reports: Coffee - Living Situation & Occupation Living situation: Reports: Single Occupation: Disabled ED ROS GENERAL - Review of Systems Review Of Systems: ROS reveals no pertinent complaints other than HPI. ED EXAM, GENERAL - Physical Exam Exam: See Below (See dictation) Course - Vital Signs Last Recorded V/S: Last Vital Signs Temp 36.1 C 07/02/18 19:55 Pulse 86 07/02/18 21:31 Resp 20 07/02/18 21:31 BP 131/81 07/02/18 21:31 Pulse Ox 93 L 07/02/18 21:32 - Orders/Labs/Meds Orders: Active Orders 24 hr Category Date Time Status EKG Documentation Completion [RC] STAT Care 07/02/18 20:26 Active CULTURE BLOOD [BC] Stat Lab 07/02/18 20:42 Received CULTURE BLOOD [BC] Stat Lab 07/02/18 20:52 Received Blood Culture x2 Reflex Set [OM.PC] Stat Oth 07/02/18 20:26 Ordered Labs: Laboratory Tests 07/02/18 07/02/18 07/02/18 Range/Units 20:42 20:42 20:42 WBC 6.64 (4.0-11.0) K/uL RBC 4.18 L (4.50-5.90) M/uL Hgb 11.6 L (13.0-17.0) g/dL Hct 37.3 L (38.0-50.0) % MCV 89.2 (80.0-98.0) fL MCH 27.8 (27.0-32.0) pg MCHC 31.1 (31.0-37.0) g/dL RDW Std Deviation 67.4 H (28.0-62.0) fl RDW Coeff of Tre 21 H (11.0-15.0) % Plt Count 93 L (150-400) K/uL MPV 11.10 (7.40-12.00) fL Add Manual Diff YES Neutrophils % (Manual) 93 H (48.0-80.0) % Band Neutrophils % 2 % Lymphocytes % (Manual) 4 L (16.0-40.0) % Monocytes % (Manual) 1 (0.0-15.0) % Nucleated RBC % 0.2 /100WBC Absolute Seg Neuts 6.2 H (1.4-5.7) Band Neutrophils # 0.1 Lymphocytes # (Manual) 0.3 L (0.6-2.4) Monocytes # (Manual) 0.1 (0.0-0.8) Nucleated RBCs # 0 K/uL Lactate 3.8 H (0.20-2.00) mmol/L Sodium 134 L (136-148) mmol/L Potassium 4.7 (3.5-5.1) mmol/L Chloride 96 L (98-107) mmol/L Carbon Dioxide 33.3 H (21.0-32.0) mmol/L BUN 47 H (7.0-18.0) mg/dL Creatinine 1.7 H (0.8-1.3) mg/dL Est Cr Clr Drug Dosing TNP Estimated GFR (MDRD) 41.6 ml/min Glucose 143 H (74-106) mg/dL Calcium 9.1 (8.5-10.1) mg/dL Total Bilirubin 0.5 (0.2-1.0) mg/dL AST 67 H (15-37) IU/L ALT 69 H (14-63) IU/L Alkaline Phosphatase 79 (46-116) U/L Total Protein 6.9 (6.4-8.2) g/dL Albumin 1.9 L (3.4-5.0) g/dL Globulin 5.0 H (2.6-4.0) g/dL Albumin/Globulin Ratio 0.4 L (0.9-1.6) Meds: Medications Discontinued Medications Generic Name Dose Route Start Last Admin Trade Name Freq PRN Reason Stop Dose Admin Hydromorphone HCl 1 mg 07/02/18 22:38 Dilaudid IVPUSH 07/02/18 22:39 ONETIME ONE Piperacillin Sod/Tazobactam 50 mls @ 100 mls/hr 07/02/18 21:07 07/02/18 21:23 Sod 3.375 gm/ Sodium Chloride IV 07/02/18 21:36 100 mls/hr ONETIME ONE Administration Sodium Chloride 1,000 mls @ 999 mls/hr 07/02/18 21:08 07/02/18 21:22 Normal Saline IV 07/02/18 22:08 999 mls/hr STAT ONE Administration Departure - Departure Time of Disposition: 22:40 Disposition: Refer to Observation Condition: Good Clinical Impression: Cellulitis, Aspergillosis, Chronic pain syndrome, Hand fracture - Discharge Information Referrals: Connor Melchor MD [Primary Care Provider] - Forms: ED Department Discharge - My Orders Last 24 Hours: My Active Orders 07/02/18 20:26 EKG Documentation Completion [RC] STAT Blood Culture x2 Reflex Set [OM.PC] Stat 07/02/18 20:42 CULTURE BLOOD [BC] Stat 07/02/18 20:52 CULTURE BLOOD [BC] Stat - Assessment/Plan Last 24 Hours: My Active Orders 07/02/18 20:26 EKG Documentation Completion [RC] STAT Blood Culture x2 Reflex Set [OM.PC] Stat 07/02/18 20:42 CULTURE BLOOD [BC] Stat 07/02/18 20:52 CULTURE BLOOD [BC] Stat
[2018-07-02] MEDS ORDERED: Piperacillin/Tazobactam 3.375 GM in Sodium Chloride 0.9% 50 ML IV ONE (21:07)
[2018-07-02] MEDS ORDERED: Sodium Chloride 0.9% 1,000 ML IV ONE (21:08)
[2018-07-02 21:30] LABS: CHLORIDE,CL 96 mmol/L (98-107); SODIUM,NA 134 mmol/L (136-148)
--- NOTE | 2018-07-02 22:05 | CR ---
INDICATION: Swelling TECHNIQUE: Chest radiograph 1 view COMPARISON: 06/29/2018 FINDINGS: Mediastinum: The mediastinum is normal in appearance. The heart silhouette is normal in size and morphology. Lung: Mild reticulonodular infiltrate in the right lung base noted without interval change. Minimal atelectasis in the left lateral lung base is also unchanged. No sign of pleural effusion seen. No pneumothorax is identified. Musculoskeletal: Left shoulder arthroplasty and right shoulder osteoarthritis noted without change. IMPRESSION: 1. Mild reticulonodular infiltrate in the right lung base noted without interval change. Minimal atelectasis in the left lateral lung base is also unchanged. Dictated by Omi Alvarez MD @ 07/02/2018 10:04:33 PM Dictated by: Omi Alvarez MD @ 07/02/2018 22:04:35 (Electronically Signed)
--- NOTE | 2018-07-02 22:13 | CR ---
Indication: Hand swelling Technique: Right hand 3 views. Comparison: None Findings: Bones: Mildly displaced fracture is present in the lateral base of the proximal phalanx in the right 5th finger. No other fracture. No malalignment. Joint spaces: Unremarkable. Soft tissues: Marked dorsal soft tissue swelling is present. Impression: Fracture is present in the base of the proximal phalanx of the right 5th finger with marked dorsal soft tissue swelling. Dictated by Remberto Lozano MD @ Jul 02 2018 10:10PM Signed by Dr. Remberto Lozano @ Jul 02 2018 10:12PM
--- NOTE | 2018-07-02 22:18 | CR ---
Indication: Right wrist swelling Technique: Right wrist 3 views Comparison: None Findings: Bones: Alignment is normal. No fractures or bone lesions. Joint spaces: Joint spaces are well maintained. No degenerative changes. Soft tissues: Unremarkable. Impression: Unremarkable right wrist. Dictated by Remberto Lozano MD @ Jul 02 2018 10:12PM Signed by Dr. Remberto Lozano @ Jul 02 2018 10:16PM
--- NOTE | 2018-07-02 22:24 | CR ---
Indication: Left foot swelling. Technique: Left foot 3 views Comparison: None Findings: Bones: An ill-defined fracture is present in the proximal phalanx of the left 5th toe, this is of indeterminate age. Periosteal reactions are present in the 3rd and 4th metatarsals, presumably from a prior injury. Erosive changes are in the articulating surfaces of the IP joint in the 1st toe. Joint spaces: No significant findings. Soft tissues: Marked dorsal soft tissue swelling is present. There is also atherosclerosis. Impression: 1. Marked dorsal soft tissue swelling of uncertain etiology. 2. Nonspecific erosive changes involving the articulating surface of the IP joint in the 1st toe. Dictated by Remberto Lozano MD @ Jul 02 2018 10:16PM Signed by Dr. Remberto Lozano @ Jul 02 2018 10:22PM
[2018-07-02] MEDS ORDERED: HYDROmorphone 1 MG/ML Syringe IVPUSH ONE (22:38)
[2018-07-02] MEDS ORDERED: Sodium Chloride 0.9% 1,000 ML IV SCH (23:45)
[2018-07-02] MEDS ORDERED: Albuterol 0.083% 2.5 MG/3 ML Neb Soln NEB PRN (23:46)
[2018-07-02] MEDS ORDERED: Ondansetron 4 MG/2 ML SDV IVPUSH PRN (23:48)
[2018-07-02] MEDS ORDERED: Acetaminophen 325 MG Tab PO PRN (23:48)
--- NOTE | 2018-07-02 23:59 | PCM.HP ---
H&P History of Present Illness - General Date of Service: 07/02/18 Admit Problem/Dx: Admission Diagnosis/Problem Admission Diagnosis/Problem Cellulitis - History of Present Illness Initial Comments - Free Text/Narative: 58 yo male with pmh atrial fibrillation, bronchopulmonary aspergillosis on chronic prednisone which has resulted in multiple infections. Patient presents with several day history of swelling and erythema of left foot and right hand. There are chronic healing ulcer of left foot. Patient reports chills but denies any fever. Right wrist;right shoulder Pain Score (Numeric/FACES): 8 - Related Data Allergies/Adverse Reactions: Allergies Allergy/AdvReac Type Severity Reaction Status Date / Time itraconazole [From Sporanox] Allergy Unknown Confusion Verified 07/02/18 23:46 levofloxacin [From Levaquin] Allergy Unknown Other Verified 07/02/18 23:46 Home Medications: Home Meds Finasteride 5 mg PO DAILY 01/11/16 [History] Fluticasone/Vilanterol [Breo Ellipta 200-25 Mcg INH] 1 inh INH DAILY 01/11/16 [ History] Gabapentin [Neurontin] 1,600 mg PO BID 01/11/16 [History] Testosterone [Androgel] 4 pump TOP DAILY 01/11/16 [History] predniSONE [Prednisone] 20 mg PO DAILY 01/11/16 [History] Tiotropium [place] [Spiriva Respimat] 2 puff INH BID 01/12/16 [History] Morphine 15 mg PO Q6H PRN #10 tablet 01/15/16 [Rx] Albuterol Sulfate 2.5 mg IH DAILY 05/19/18 [History] Apixaban [Eliquis] 5 mg PO BID 05/19/18 [History] Diltiazem HCl [Diltiazem 24Hr ER] 240 mg PO DAILY 05/19/18 [History] Icosapent Ethyl [Vascepa] 1 gm PO DAILY 05/19/18 [History] Pantoprazole [ProTONIX] 40 mg PO DAILY 05/19/18 [History] Metoprolol Tartrate 50 mg PO BID 05/20/18 [History] Midodrine 2.5 mg PO BID 05/20/18 [History] traZODone HCl [Trazodone HCl] 50 mg PO BEDTIME 05/20/18 [History] Iron Polysaccharides Complex [Ferrex 150] 150 mg PO DAILY 30 Days #30 cap [Rx] Albuterol [Proventil Neb Soln] 2.5 mg NEB Q4HR PRN #15 neb 06/29/18 [Rx] Diclofenac Sodium [Voltaren 1%] 1 applic TP QID #1 tube 06/29/18 [Rx] predniSONE [Prednisone] 20 mg PO DAILY #5 tablet 06/29/18 [Rx] Past Medical History HEENT History: Reports: Cataract Other HEENT History: dental fillings due to caries; recent tooth fracture Cardiovascular History: Reports: Afib, Cardiomyopathy, Heart Failure, Hypertension, [place] Respiratory History: Reports: Asthma, Bronchitis, Recurrent, PE, Pneumonia, Recurrent, Other (See Below) Other Respiratory History: Chronic pulmonary aspergillosis, 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 bilateral achilles tendon ruptures and repair. 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 No explantation- -they apparently just treated him with IV abx for months. - Past Surgical History HEENT Surgical History: Reports: Cataract Surgery Respiratory Surgical History: Reports: Lung Resection Other Respiratory Surgeries/Procedures: intubated last Feb 2018 and transfered to [place] Musculoskeletal Surgical History: Reports: Shoulder Surgery, Other (See Below) Other Musculoskeletal Surgeries/Procedures:: L shoulder and left hip surgery Social & Family History - Family History Family Medical History: Noncontributory - Tobacco Use Smoking Status *Q: Never Smoker - Caffeine Use Caffeine Use: Reports: Coffee - Recreational Drug Use Recreational Drug Use: No - Living Situation & Occupation Living situation: Reports: Single Occupation: Disabled H&P Review of Systems - Review of Systems: Review Of Systems: ROS reveals no pertinent complaints other than HPI. Exam - Exam Exam: See Below - Vital Signs Vital Signs: Last Vital Signs Temp 36.1 C 07/02/18 19:55 Pulse 89 07/02/18 22:54 Resp 22 H 07/02/18 22:54 BP 155/96 H 07/02/18 22:54 Pulse Ox 91 L 07/02/18 22:54 Weight: 65.771 kg - Exam General: Alert, Oriented Lungs: Clear to Auscultation, Normal Respiratory Effort Cardiovascular: Regular Rate, Regular Rhythm GI/Abdominal Exam: Soft, Non-Tender Extremities: Other (swelling of dorsum of right hand, no area of fluctuance, swelling of dorsum of left foot with erythema, no area of fluctuance) - Patient Data Lab Results Last 24 hrs: Laboratory Results - last 24 hr 07/02/18 07/02/18 07/02/18 Range/Units 20:42 20:42 20:42 WBC 6.64 (4.0-11.0) K/uL RBC 4.18 L (4.50-5.90) M/uL Hgb 11.6 L (13.0-17.0) g/dL Hct 37.3 L (38.0-50.0) % MCV 89.2 (80.0-98.0) fL MCH 27.8 (27.0-32.0) pg MCHC 31.1 (31.0-37.0) g/dL RDW Std Deviation 67.4 H (28.0-62.0) fl RDW Coeff of Tre 21 H (11.0-15.0) % Plt Count 93 L (150-400) K/uL MPV 11.10 (7.40-12.00) fL Add Manual Diff YES Neutrophils % (Manual) 93 H (48.0-80.0) % Band Neutrophils % 2 % Lymphocytes % (Manual) 4 L (16.0-40.0) % Monocytes % (Manual) 1 (0.0-15.0) % Nucleated RBC % 0.2 /100WBC Absolute Seg Neuts 6.2 H (1.4-5.7) Band Neutrophils # 0.1 Lymphocytes # (Manual) 0.3 L (0.6-2.4) Monocytes # (Manual) 0.1 (0.0-0.8) Nucleated RBCs # 0 K/uL Lactate 3.8 H (0.20-2.00) mmol/L Sodium 134 L (136-148) mmol/L Potassium 4.7 (3.5-5.1) mmol/L Chloride 96 L (98-107) mmol/L Carbon Dioxide 33.3 H (21.0-32.0) mmol/L BUN 47 H (7.0-18.0) mg/dL Creatinine 1.7 H (0.8-1.3) mg/dL Est Cr Clr Drug Dosing TNP Estimated GFR (MDRD) 41.6 ml/min Glucose 143 H (74-106) mg/dL Calcium 9.1 (8.5-10.1) mg/dL Total Bilirubin 0.5 (0.2-1.0) mg/dL AST 67 H (15-37) IU/L ALT 69 H (14-63) IU/L Alkaline Phosphatase 79 (46-116) U/L Total Protein 6.9 (6.4-8.2) g/dL Albumin 1.9 L (3.4-5.0) g/dL Globulin 5.0 H (2.6-4.0) g/dL Albumin/Globulin Ratio 0.4 L (0.9-1.6) Result Diagrams: 07/03/18 03:10 07/03/18 03:10 Problem List Initiated/Reviewed/Updated: Yes Orders Last 24hrs: Active Orders 24 hr Category Date Time Status Patient Status [ADT] Stat ADT 07/02/18 22:45 Active Oxygen Therapy [RC] PRN Care 07/02/18 23:48 Active Up ad Jaja [RC] ASDIRECTED Care 07/02/18 23:48 Active VTE/DVT Education [RC] PER UNIT ROUTINE Care 07/02/18 23:48 Active Vital Signs [RC] Q4H Care 07/02/18 23:48 Active Regular Diet [DIET] Diet 07/02/18 Breakfast Active BASIC METABOLIC PANEL,BMP [CHEM] AM Lab 07/03/18 05:11 Ordered CBC WITH AUTO DIFF [HEME] AM Lab 07/03/18 05:11 Ordered CULTURE BLOOD [BC] Stat Lab 07/02/18 20:42 Received CULTURE BLOOD [BC] Stat Lab 07/02/18 20:52 Received LACTIC ACID,WHOLE BLOOD [BG] Q6H Lab 07/03/18 03:00 Ordered LACTIC ACID,WHOLE BLOOD [BG] Q6H Lab 07/03/18 09:00 Ordered LACTIC ACID,WHOLE BLOOD [BG] Q6H Lab 07/03/18 15:00 Ordered LACTIC ACID,WHOLE BLOOD [BG] Q6H Lab 07/03/18 21:00 Ordered Acetaminophen [Tylenol] Med 07/02/18 23:48 Active 650 mg PO Q4H PRN Albuterol [Proventil Neb Soln] Med 07/02/18 23:46 Ordered 2.5 mg NEB Q4HR PRN Apixaban [Eliquis] Med 07/03/18 09:00 Ordered 5 mg PO BID Diltiazem HCl [Diltiazem 24Hr ER] Med 07/03/18 09:00 Ordered 240 mg PO DAILY Gabapentin [Neurontin] Med 07/03/18 09:00 Ordered 1,600 mg PO BID HYDROmorphone [Dilaudid] Med 07/02/18 23:48 Active 0.5 mg IVPUSH Q2H PRN Metoprolol Tartrate [Lopressor] Med 07/03/18 09:00 Ordered 50 mg PO BID Midodrine Med 07/03/18 09:00 Ordered 2.5 mg PO BID Morphine Med 07/02/18 23:46 Ordered 15 mg PO Q6H PRN Ondansetron [Zofran] Med 07/02/18 23:48 Active 4 mg IVPUSH Q4H PRN Pantoprazole [ProTONIX] Med 07/03/18 09:00 Ordered 40 mg PO DAILY Pharmacy to Dose - Vancomycin Med 07/02/18 23:45 Ordered 1 dose .XX ASDIRECTED Piperacillin/Tazobactam [Piperacil-Tazobact] 3.375 gm Med 07/03/18 03:00 Ordered Sodium Chloride 0.9% [Normal Saline] 50 ml IV Q6H Sodium Chloride 0.9% @ 100 MLS/HR(1,000ml) Med 07/02/18 23:45 Ordered Sodium Chloride 0.9% [Normal Saline] 1,000 ml IV ASDIRECTED Tiotropium [place] [Spiriva Respimat] Med 07/03/18 09:00 Ordered 2 puff INH BID Vancomycin [Vancocin] 1 gm Med 07/02/18 22:45 Active Sodium Chloride 0.9% [Normal Saline] 250 ml IV ONETIME predniSONE Med 07/03/18 09:00 Ordered 20 mg PO DAILY traZODone Med 07/03/18 21:00 Ordered 50 mg PO BEDTIME Blood Culture x2 Reflex Set [OM.PC] Stat Oth 07/02/18 20:26 Ordered Resuscitation Status Routine Resus Stat 07/02/18 23:48 Ordered Medication Orders Acetaminophen (Tylenol) 650 mg PO Q4H PRN PRN Reason: Pain (Mild 1-3)/fever Albuterol (Proventil Neb Soln) 2.5 mg NEB Q4HR PRN PRN Reason: Shortness of Breath Apixaban (Eliquis) 5 mg PO BID [facility] Gabapentin (Neurontin) 1,600 mg PO BID D[facility]IT[facility] Hydromorphone HCl (Dilaudid) 0.5 mg IVPUSH Q2H PRN PRN Reason: Pain (severe 7-10) Vancomycin HCl 1 gm/ Sodium (Chloride) 250 mls @ 166 mls/hr IV ONETIME ONE Stop: 07/03/18 00:15 Last Admin: 07/02/18 22:58 Dose: 166 mls/hr Piperacillin Sod/Tazobactam (Sod 3.375 gm/ Sodium Chloride) 50 mls @ 100 mls/ hr IV Q6H [facility]ANIELIT[facility] Sodium Chloride (Normal Saline) 1,000 mls @ 100 mls/hr IV ASDIRECTED [facility] Metoprolol Tartrate (Lopressor) 50 mg PO BID [facility] Morphine Sulfate (Morphine) 15 mg PO Q6H PRN PRN Reason: Pain Non-Formulary Medication (Diltiazem Hcl [Diltiazem 24hr Er]) 240 mg PO DAILY [facility] Non-Formulary Medication (Midodrine) 2.5 mg PO BID [facility] Non-Formulary Medication (Tiotropium [place] [Spiriva Respimat]) 2 puff INH BID [facility] Ondansetron HCl (Zofran) 4 mg IVPUSH Q4H PRN PRN Reason: Nausea Pantoprazole Sodium (Protonix) 40 mg PO DAILY [facility] Prednisone (Prednisone) 20 mg PO DAILY [facility] Trazodone HCl (Trazodone) 50 mg PO BEDTIME [facility] Vancomycin HCl (Pharmacy To Dose - Vancomycin) 1 dose .XX ASDIRECTED [facility] Assessment/Plan Comment:: 58 yo male admitted for cellulitis of left foot and right hand. We will treat with vancomycin and zosyn.
[2018-07-03] MEDS: Piperacillin/Tazobactam 3.375 GM in Sodium Chloride 0.9% 50 ML IV SCH ×4 (03:12→20:54)
[2018-07-03] MEDS ORDERED: Pantoprazole 40 MG Tab.CR ONE (05:28)
[2018-07-03] MEDS ORDERED: Metoprolol Tartrate 50 MG Tab ONE (06:38)
[2018-07-03] MEDS: Pantoprazole 40 MG Tab.CR PO SCH (06:40)
[2018-07-03] MEDS: Metoprolol Tartrate 50 MG Tab PO SCH ×3 (06:40→20:57)
[2018-07-03] MEDS: HYDROmorphone 1 MG/ML Syringe IVPUSH PRN ×4 (08:02→21:04)
[2018-07-03] MEDS: Diltiazem 120 MG Cap.CD PO SCH (09:24)
[2018-07-03] MEDS: Gabapentin 300 MG Cap PO SCH ×2 (09:26→20:56)
[2018-07-03] MEDS: Apixaban 5 MG Tab PO SCH ×2 (09:26→20:57)
[2018-07-03] MEDS: predniSONE 20 MG Tab PO SCH (09:26)
[2018-07-03] MEDS: Midodrine 5 MG Tab PO SCH ×2 (09:27→20:54)
[2018-07-03] MEDS: Tiotropium Bromide [Spiriva Respimat] 2 PUFF INH SCH (09:28)
--- NOTE | 2018-07-03 10:48 | PCM.PN ---
- General Info Date of Service: 07/03/18 Subjective Update: Pt feeling about the same, pain is under control if he doesn't move too much. - Patient Data Vitals - Most Recent: Last Vital Signs Temp 36.2 C 07/03/18 04:00 Pulse 87 07/03/18 09:26 Resp 20 07/03/18 04:00 BP 141/83 H 07/03/18 09:26 Pulse Ox 94 L 07/03/18 04:00 Weight - Most Recent: 65.771 kg I&O - Last 24 Hours: Intake & Output 07/02/18 07/03/18 07/03/18 22:59 06:59 14:59 Intake Total 540 Output Total 400 Balance 140 Lab Results Last 24 Hours: Laboratory Results - last 24 hr 07/02/18 07/02/18 07/02/18 Range/Units 20:42 20:42 20:42 WBC 6.64 (4.0-11.0) K/uL RBC 4.18 L (4.50-5.90) M/uL Hgb 11.6 L (13.0-17.0) g/dL Hct 37.3 L (38.0-50.0) % MCV 89.2 (80.0-98.0) fL MCH 27.8 (27.0-32.0) pg MCHC 31.1 (31.0-37.0) g/dL RDW Std Deviation 67.4 H (28.0-62.0) fl RDW Coeff of Tre 21 H (11.0-15.0) % Plt Count 93 L (150-400) K/uL MPV 11.10 (7.40-12.00) fL Neut % (Auto) (48.0-80.0) % Lymph % (Auto) (16.0-40.0) % [place] % (Auto) (0.0-15.0) % Eos % (Auto) (0.0-7.0) % Baso % (Auto) (0.0-1.5) % Neut # (Auto) (1.4-5.7) K/uL Lymph # (Auto) (0.6-2.4) K/uL [place] # (Auto) (0.0-0.8) K/uL Eos # (Auto) (0.0-0.7) K/uL Baso # (Auto) (0.0-0.1) K/uL Add Manual Diff YES Neutrophils % (Manual) 93 H (48.0-80.0) % Band Neutrophils % 2 % Lymphocytes % (Manual) 4 L (16.0-40.0) % Monocytes % (Manual) 1 (0.0-15.0) % Nucleated RBC % 0.2 /100WBC Absolute Seg Neuts 6.2 H (1.4-5.7) Band Neutrophils # 0.1 Lymphocytes # (Manual) 0.3 L (0.6-2.4) Monocytes # (Manual) 0.1 (0.0-0.8) Nucleated RBCs # 0 K/uL Lactate 3.8 H (0.20-2.00) mmol/L Sodium 134 L (136-148) mmol/L Potassium 4.7 (3.5-5.1) mmol/L Chloride 96 L (98-107) mmol/L Carbon Dioxide 33.3 H (21.0-32.0) mmol/L BUN 47 H (7.0-18.0) mg/dL Creatinine 1.7 H (0.8-1.3) mg/dL Est Cr Clr Drug Dosing TNP Estimated GFR (MDRD) 41.6 ml/min Glucose 143 H (74-106) mg/dL Calcium 9.1 (8.5-10.1) mg/dL Total Bilirubin 0.5 (0.2-1.0) mg/dL AST 67 H (15-37) IU/L ALT 69 H (14-63) IU/L Alkaline Phosphatase 79 (46-116) U/L Total Protein 6.9 (6.4-8.2) g/dL Albumin 1.9 L (3.4-5.0) g/dL Globulin 5.0 H (2.6-4.0) g/dL Albumin/Globulin Ratio 0.4 L (0.9-1.6) 07/03/18 07/03/18 07/03/18 Range/Units 03:10 03:10 03:10 WBC 5.93 (4.0-11.0) K/uL RBC 3.62 L (4.50-5.90) M/uL Hgb 10.0 L (13.0-17.0) g/dL Hct 32.2 L (38.0-50.0) % MCV 89.0 (80.0-98.0) fL MCH 27.6 (27.0-32.0) pg MCHC 31.1 (31.0-37.0) g/dL RDW Std Deviation 66.7 H (28.0-62.0) fl RDW Coeff of Tre 21 H (11.0-15.0) % Plt Count 100 L (150-400) K/uL MPV 10.50 (7.40-12.00) fL Neut % (Auto) 93.1 H (48.0-80.0) % Lymph % (Auto) 4.2 L (16.0-40.0) % [place] % (Auto) 2.7 (0.0-15.0) % Eos % (Auto) 0.0 (0.0-7.0) % Baso % (Auto) 0.0 (0.0-1.5) % Neut # (Auto) 5.5 (1.4-5.7) K/uL Lymph # (Auto) 0.3 L (0.6-2.4) K/uL [place] # (Auto) 0.2 (0.0-0.8) K/uL Eos # (Auto) 0.0 (0.0-0.7) K/uL Baso # (Auto) 0.0 (0.0-0.1) K/uL Add Manual Diff Neutrophils % (Manual) (48.0-80.0) % Band Neutrophils % % Lymphocytes % (Manual) (16.0-40.0) % Monocytes % (Manual) (0.0-15.0) % Nucleated RBC % 0.0 /100WBC Absolute Seg Neuts (1.4-5.7) Band Neutrophils # Lymphocytes # (Manual) (0.6-2.4) Monocytes # (Manual) (0.0-0.8) Nucleated RBCs # 0 K/uL Lactate 0.8 (0.20-2.00) mmol/L Sodium 134 L (136-148) mmol/L Potassium 4.5 (3.5-5.1) mmol/L Chloride 99 (98-107) mmol/L Carbon Dioxide 32.2 H (21.0-32.0) mmol/L BUN 42 H (7.0-18.0) mg/dL Creatinine 1.4 H (0.8-1.3) mg/dL Est Cr Clr Drug Dosing 48.16 Estimated GFR (MDRD) 52.1 ml/min Glucose 190 H (74-106) mg/dL Calcium 8.3 L (8.5-10.1) mg/dL Total Bilirubin (0.2-1.0) mg/dL AST (15-37) IU/L ALT (14-63) IU/L Alkaline Phosphatase (46-116) U/L Total Protein (6.4-8.2) g/dL Albumin (3.4-5.0) g/dL Globulin (2.6-4.0) g/dL Albumin/Globulin Ratio (0.9-1.6) Steve Results Last 24 Hours: Microbiology 07/02/18 20:52 Anaerobic Blood Culture - Preliminary Blood - Venous - Lab Draw 07/02/18 20:42 Anaerobic Blood Culture - Preliminary Blood - Venous Med Orders - Current: Current Medications Acetaminophen (Tylenol) 650 mg PO Q4H PRN PRN Reason: Pain (Mild 1-3)/fever Albuterol (Proventil Neb Soln) 2.5 mg NEB Q4H PRN PRN Reason: Shortness of Breath Apixaban (Eliquis) 5 mg PO BID [facility] Last Admin: 07/03/18 09:26 Dose: 5 mg Diltiazem HCl (Cardizem Cd) 240 mg PO DAILY [facility] Last Admin: 07/03/18 09:24 Dose: 240 mg Gabapentin (Neurontin) 600 mg PO BID [facility] Last Admin: 07/03/18 09:26 Dose: 600 mg Hydromorphone HCl (Dilaudid) 0.5 mg IVPUSH Q2H PRN PRN Reason: Pain (severe 7-10) Last Admin: 07/03/18 08:02 Dose: 0.5 mg Piperacillin Sod/Tazobactam (Sod 3.375 gm/ Sodium Chloride) 50 mls @ 100 mls/ hr IV Q6H [facility] Last Admin: 07/03/18 08:07 Dose: 100 mls/hr Sodium Chloride (Normal Saline) 1,000 mls @ 100 mls/hr IV ASDIRECTED [facility] Vancomycin HCl 1 gm/ Sodium (Chloride) 250 mls @ 166 mls/hr IV Q12H [facility] Last Admin: 07/03/18 09:29 Dose: 166 mls/hr Metoprolol Tartrate (Lopressor) 50 mg PO BID [facility] Last Admin: 07/03/18 09:26 Dose: 50 mg Midodrine (Midodrine) 2.5 mg PO BID [facility] Last Admin: 07/03/18 09:27 Dose: 2.5 mg Morphine Sulfate (Morphine) 15 mg PO Q6H PRN PRN Reason: Pain Ondansetron HCl (Zofran) 4 mg IVPUSH Q4H PRN PRN Reason: Nausea Pantoprazole Sodium (Protonix) 40 mg PO ACBREAKFAST [facility] Last Admin: 07/03/18 06:40 Dose: 40 mg Tiotropium [place] [ Spiriva Respimat] 2 Puff 2 each INH DAILY [facility] Last Admin: 07/03/18 09:28 Dose: Not Given Prednisone (Prednisone) 20 mg PO DAILY [facility] Last Admin: 07/03/18 09:26 Dose: 20 mg Trazodone HCl (Trazodone) 50 mg PO BEDTIME [facility] Vancomycin HCl (Pharmacy To Dose - Vancomycin) 1 dose .XX ASDIRECTED [facility] Discontinued Medications Hydromorphone HCl (Dilaudid) 1 mg IVPUSH ONETIME ONE Stop: 07/02/18 22:39 Last Admin: 07/02/18 22:56 Dose: 1 mg Piperacillin Sod/Tazobactam (Sod 3.375 gm/ Sodium Chloride) 50 mls @ 100 mls/ hr IV ONETIME ONE Stop: 07/02/18 21:36 Last Admin: 07/02/18 21:23 Dose: 100 mls/hr Sodium Chloride (Normal Saline) 1,000 mls @ 999 mls/hr IV STAT ONE Stop: 07/02/18 22:08 Last Admin: 07/02/18 21:22 Dose: 999 mls/hr Vancomycin HCl 1 gm/ Sodium (Chloride) 250 mls @ 166 mls/hr IV ONETIME ONE Stop: 07/03/18 00:15 Last Admin: 07/02/18 22:58 Dose: 166 mls/hr Metoprolol Tartrate (Lopressor) Confirm Administered Dose 50 mg .ROUTE .STK-MED ONE Stop: 07/03/18 06:39 Last Admin: 07/03/18 06:43 Dose: Not Given Pantoprazole Sodium (Protonix) Confirm Administered Dose 40 mg .ROUTE .STK- MED ONE Stop: 07/03/18 05:29 Last Admin: 07/03/18 05:36 Dose: Not Given - Exam General: Alert, Oriented, Cooperative, Mild Distress Lungs: Clear to Auscultation, Normal Respiratory Effort Cardiovascular: Regular Rhythm Extremities: Other (Right hand is wrapped, left lower leg is showing cellulitic/ erythema ) - Problem List Review Problem List Initiated/Reviewed/Updated: Yes - Plan Plan:: 58 yo male admitted for recurrent cellulitis of left foot and right hand secondary to chronic use of prednisone due to his history of bronchopulmonary aspergillosis. Problems: #1. Recurrent cellulitis of left foot and right hand -IV antibiotics to continue with vancomycin and Zosyn -Patient to have MRI of the right hand and left foot to assess for osteomyelitis -Medications on board for pain control -Wound care consult to chronic ulcers of the left foot
--- NOTE | 2018-07-03 15:42 | MR ---
EXAMINATION: MRI of the left foot without contrast HISTORY: Bacteremia COMPARISON: Radiographs dated 07/02/2018 TECHNIQUE: Multiplanar and multisequence imaging obtained of the left foot without contrast. FINDINGS: There is partial disruption of the distal Achilles tendon just proximal to the insertion of the peroneus brevis and longus tendons appear intact. The remaining flexor and extensor tendons appear grossly preserved. There is prominent soft tissue edema throughout the left foot most prominent along the dorsal stricture cyst. There is extension into the plantar soft tissues as well. No definitive fluid collection is noted. There or small joint effusions involving the first and second MTP joints. There is no definitive bone marrow edema. There is a punctate area of susceptibility artifact along the dorsal aspect of the foot, possibly a tiny foreign body. IMPRESSION: 1. Extensive soft tissue swelling throughout the left foot, possibly representing diffuse cellulitis. No evidence of an abscess. 2. No definitive evidence of osteomyelitis, however small joint effusion involving the first and second MTP joints does not exclude septic arthritis. 3. 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
[2018-07-03] MEDS: traZODone 50 MG Tab PO SCH (20:57)
[2018-07-03] MEDS: Morphine 15 MG Tab PO PRN (20:57)
[2018-07-04] MEDS: HYDROmorphone 1 MG/ML Syringe IVPUSH PRN ×9 (01:55→23:23)
[2018-07-04] MEDS: Piperacillin/Tazobactam 3.375 GM in Sodium Chloride 0.9% 50 ML IV SCH ×4 (02:00→22:28)
[2018-07-04 06:07] LABS: CHLORIDE,CL 102 mmol/L (98-107); SODIUM,NA 137 mmol/L (136-148)
[2018-07-04] MEDS: Pantoprazole 40 MG Tab.CR PO SCH (06:48)
[2018-07-04] MEDS: Apixaban 5 MG Tab PO SCH ×2 (08:37→21:36)
[2018-07-04] MEDS: predniSONE 20 MG Tab PO SCH (08:37)
[2018-07-04] MEDS: Gabapentin 300 MG Cap PO SCH ×2 (08:38→21:28)
[2018-07-04] MEDS: Diltiazem 120 MG Cap.CD PO SCH (08:38)
[2018-07-04] MEDS: Metoprolol Tartrate 50 MG Tab PO SCH ×2 (08:39→21:37)
[2018-07-04] MEDS: Midodrine 5 MG Tab PO SCH ×2 (08:39→21:26)
[2018-07-04] MEDS: Tiotropium Bromide [Spiriva Respimat] 2 PUFF INH SCH (10:05)
--- NOTE | 2018-07-04 10:51 | MR ---
EXAMINATION: MRI of the right hand HISTORY: Bacteremia COMPARISON: Radiographs dated 07/02/2018 TECHNIQUE: Multiplanar and multisequence imaging obtained of the right hand without contrast. Motion artifact is noted on several sequences. FINDINGS: There is extensive soft tissue edema throughout the right hand. There is no definitive increased STIR signal noted within the bone marrow. However there is signal loss within the mid to distal phalanges. On the T2 fat sat imaging, it appears the fat saturation was not enabled. No defined fluid collection identified. Visualized flexor and extensor tendons appear normal in signal however moderate motion artifact obscures fine detail. Likely subchondral cystic change and joint space narrowing noted at the third MCP joint. IMPRESSION: 1. Overall limited exam however there is diffuse soft tissue edema noted throughout the visualized aspects of the right hand. 2. Definitive bone marrow edema to suggest osteomyelitis is not noted. 2. Likely degenerative changes noted at the third MCP joint.
--- NOTE | 2018-07-04 12:34 | CT ---
EXAMINATION: CT of the left and right hip HISTORY: Pain, rule out infection COMPARISON: None TECHNIQUE: Axial CT imaging obtained through the left and right hips without contrast. Coronal and sagittal reconstructions obtained. FINDINGS: Left total hip hardware is demonstrated in stable position and alignment. Periarticular calcifications are noted adjacent to the hips bilaterally. There is no definite hip joint effusion noted. There is no fracture or acute osseous abnormality. Bone mineralization is normal without evidence of erosions. Mild vascular calcifications are noted. No subcutaneous air. Mild diverticulosis without evidence of diverticulitis. Mild soft tissue edema noted along the left gluteal region and thigh.. Remaining intrapelvic structures appear normal. IMPRESSION: 1. Left total hip hardware noted. 2. Otherwise grossly unremarkable hips. 3. Diverticulosis without evidence of diverticulitis. 4. Subcutaneous edema along the left gluteal region and thigh. Extension of cellulitis is not excluded.
--- NOTE | 2018-07-04 12:51 | PCM.PN ---
- General Info Date of Service: 07/04/18 Subjective Update: Patient is in pain, complaining of bilateral hip pain and discomfort along with cellulitic pain of upper and lower ext. - Patient Data Vitals - Most Recent: Last Vital Signs Temp 37.1 C 07/04/18 11:46 Pulse 79 07/04/18 11:46 Resp 16 07/04/18 11:46 BP 124/68 07/04/18 11:46 Pulse Ox 94 L 07/04/18 11:46 Weight - Most Recent: 65.771 kg I&O - Last 24 Hours: Intake & Output 07/03/18 07/04/18 07/04/18 22:59 06:59 14:59 Intake Total 1050 965 Output Total 600 775 Balance 450 190 Lab Results Last 24 Hours: Laboratory Results - last 24 hr 07/04/18 07/04/18 07/04/18 Range/Units 05:15 05:15 09:34 WBC 5.13 (4.0-11.0) K/uL RBC 3.75 L (4.50-5.90) M/uL Hgb 10.1 L (13.0-17.0) g/dL Hct 33.0 L (38.0-50.0) % MCV 88.0 (80.0-98.0) fL MCH 26.9 L (27.0-32.0) pg MCHC 30.6 L (31.0-37.0) g/dL RDW Std Deviation 67.3 H (28.0-62.0) fl RDW Coeff of Tre 21 H (11.0-15.0) % Plt Count 92 L (150-400) K/uL MPV 10.90 (7.40-12.00) fL Neut % (Auto) 90.5 H (48.0-80.0) % Lymph % (Auto) 7.0 L (16.0-40.0) % [place] % (Auto) 2.3 (0.0-15.0) % Eos % (Auto) 0.2 (0.0-7.0) % Baso % (Auto) 0.0 (0.0-1.5) % Neut # (Auto) 4.6 (1.4-5.7) K/uL Lymph # (Auto) 0.4 L (0.6-2.4) K/uL [place] # (Auto) 0.1 (0.0-0.8) K/uL Eos # (Auto) 0.0 (0.0-0.7) K/uL Baso # (Auto) 0.0 (0.0-0.1) K/uL Nucleated RBC % 0.0 /100WBC Nucleated RBCs # 0 K/uL Sodium 137 (136-148) mmol/L Potassium 4.3 (3.5-5.1) mmol/L Chloride 102 (98-107) mmol/L Carbon Dioxide 32.5 H (21.0-32.0) mmol/L BUN 35 H (7.0-18.0) mg/dL Creatinine 1.1 (0.8-1.3) mg/dL Est Cr Clr Drug Dosing 61.29 mL/min Estimated GFR (MDRD) > 60.0 ml/min Glucose 85 (74-106) mg/dL Calcium 7.7 L (8.5-10.1) mg/dL Vancomycin Trough 16.8 H (5.0-10.0) ug/mL Steve Results Last 24 Hours: Microbiology 07/03/18 11:38 Aerobic Blood Culture - Preliminary Blood - Venous - Lab Draw NO GROWTH AFTER 1 DAY Anaerobic Blood Culture - Final 07/03/18 11:28 Aerobic Blood Culture - Preliminary Blood - Venous Anaerobic Blood Culture - Preliminary NO GROWTH AFTER 1 DAY 07/02/18 20:52 Aerobic Blood Culture - Preliminary Blood - Venous - Lab Draw Anaerobic Blood Culture - Preliminary 07/02/18 20:42 Aerobic Blood Culture - Preliminary Blood - Venous Anaerobic Blood Culture - Preliminary Med Orders - Current: Current Medications Acetaminophen (Tylenol) 650 mg PO Q4H PRN PRN Reason: Pain (Mild 1-3)/fever Albuterol (Proventil Neb Soln) 2.5 mg NEB Q4H PRN PRN Reason: Shortness of Breath Apixaban (Eliquis) 5 mg PO BID [facility] Last Admin: 07/04/18 08:37 Dose: 5 mg Diltiazem HCl (Cardizem Cd) 240 mg PO DAILY [facility] Last Admin: 07/04/18 08:38 Dose: 240 mg Gabapentin (Neurontin) 1,200 mg PO BID [facility] Last Admin: 07/04/18 08:38 Dose: 1,200 mg Hydromorphone HCl (Dilaudid) 1 mg IVPUSH Q2H PRN PRN Reason: Pain (severe 7-10) Last Admin: 07/04/18 10:57 Dose: 1 mg Piperacillin Sod/Tazobactam (Sod 3.375 gm/ Sodium Chloride) 50 mls @ 100 mls/ hr IV Q6H [facility] Last Admin: 07/04/18 08:40 Dose: 100 mls/hr Vancomycin HCl 0.75 gm/ Sodium (Chloride) 250 mls @ 166.667 mls/hr IV Q12H [facility] Last Admin: 07/04/18 11:25 Dose: 166.667 mls/hr Metoprolol Tartrate (Lopressor) 50 mg PO BID [facility] Last Admin: 07/04/18 08:39 Dose: 50 mg Midodrine (Midodrine) 2.5 mg PO BID [facility] Last Admin: 07/04/18 08:39 Dose: 2.5 mg Morphine Sulfate (Morphine) 15 mg PO Q6H PRN PRN Reason: Pain Last Admin: 07/03/18 20:57 Dose: 15 mg Ondansetron HCl (Zofran) 4 mg IVPUSH Q4H PRN PRN Reason: Nausea Pantoprazole Sodium (Protonix) 40 mg PO ACBREAKFAST [facility] Last Admin: 07/04/18 06:48 Dose: 40 mg Tiotropium [place] [ Spiriva Respimat] 2 Puff 2 each INH DAILY [facility] Last Admin: 07/04/18 10:05 Dose: Not Given Prednisone (Prednisone) 20 mg PO DAILY [facility] Last Admin: 07/04/18 08:37 Dose: 20 mg Trazodone HCl (Trazodone) 50 mg PO BEDTIME [facility] Last Admin: 07/03/18 20:57 Dose: 50 mg Discontinued Medications Gabapentin (Neurontin) 600 mg PO BID [facility] Last Admin: 07/03/18 20:56 Dose: 600 mg Hydromorphone HCl (Dilaudid) 1 mg IVPUSH ONETIME ONE Stop: 07/02/18 22:39 Last Admin: 07/02/18 22:56 Dose: 1 mg Hydromorphone HCl (Dilaudid) 0.5 mg IVPUSH Q2H PRN PRN Reason: Pain (severe 7-10) Last Admin: 07/04/18 07:59 Dose: 0.5 mg Piperacillin Sod/Tazobactam (Sod 3.375 gm/ Sodium Chloride) 50 mls @ 100 mls/ hr IV ONETIME ONE Stop: 07/02/18 21:36 Last Admin: 07/02/18 21:23 Dose: 100 mls/hr Sodium Chloride (Normal Saline) 1,000 mls @ 999 mls/hr IV STAT ONE Stop: 07/02/18 22:08 Last Admin: 07/02/18 21:22 Dose: 999 mls/hr Vancomycin HCl 1 gm/ Sodium (Chloride) 250 mls @ 166 mls/hr IV ONETIME ONE Stop: 07/03/18 00:15 Last Admin: 07/02/18 22:58 Dose: 166 mls/hr Sodium Chloride (Normal Saline) 1,000 mls @ 100 mls/hr IV ASDIRECTED [facility] Vancomycin HCl 1 gm/ Sodium (Chloride) 250 mls @ 166 mls/hr IV Q12H [facility] Last Admin: 07/04/18 11:01 Dose: Not Given Metoprolol Tartrate (Lopressor) Confirm Administered Dose 50 mg .ROUTE .STK-MED ONE Stop: 07/03/18 06:39 Last Admin: 07/03/18 06:43 Dose: Not Given Pantoprazole Sodium (Protonix) Confirm Administered Dose 40 mg .ROUTE .STK- MED ONE Stop: 07/03/18 05:29 Last Admin: 07/03/18 05:36 Dose: Not Given Vancomycin HCl (Pharmacy To Dose - Vancomycin) 1 dose .XX ASDIRECTED [facility] - Exam General: Alert, Oriented, Moderate Distress Lungs: Clear to Auscultation, Normal Respiratory Effort Cardiovascular: Regular Rate, Regular Rhythm Extremities: Arm Pain, Increased Warmth, Redness, Other Wound/Incisions: Erythema - Problem List Review Problem List Initiated/Reviewed/Updated: Yes - My Orders Last 24 Hours: My Active Orders 07/03/18 13:08 Admission Status [Patient Status] [ADT] Routine 07/04/18 09:03 HYDROmorphone [Dilaudid] 1 mg IVPUSH Q2H PRN - Plan Plan:: 58 yo male admitted for cellulitis of left foot and right hand. -Second set of Blood cultures continue to grow Gram Neg rods, shall repeat Blood cultures tomorrow to ensure clearance of infection -Continue with Zosyn and Vanc. IV for Cellulitis coverage -MRI results do not indicate any signs of osteomyelitis -Pt was complaining of bilateral hip pain, a Stat CT was ordered and did not show any signs of infectious process. Pt does not require a Ortho Consult -Pt complaining of significant pain, shall increase pain meds and reassess -Pt due to his ongoing issues with cellulits and other comorbidities would like a psychiatry consult. Shall Call Dr. Aydee quick psych .
[2018-07-04] MEDS: Phosphorus #1 250 MG Tab PO SCH ×2 (18:36→23:26)
[2018-07-04] MEDS: Topiramate 50 MG Tab PO SCH (21:26)
[2018-07-04] MEDS: traZODone 50 MG Tab PO SCH (21:28)
[2018-07-04] MEDS: Mirtazapine 15 MG Tab.DIS PO SCH (21:36)
[2018-07-04] MEDS: Morphine 15 MG Tab PO PRN (22:29)
[2018-07-05] MEDS: HYDROmorphone 1 MG/ML Syringe IVPUSH PRN ×4 (01:54→11:32)
[2018-07-05] MEDS: Piperacillin/Tazobactam 3.375 GM in Sodium Chloride 0.9% 50 ML IV SCH ×4 (03:51→20:15)
[2018-07-05 06:04] LABS: CHLORIDE,CL 104 mmol/L (98-107); SODIUM,NA 139 mmol/L (136-148)
[2018-07-05] MEDS: Phosphorus #1 250 MG Tab PO SCH ×4 (06:35→23:32)
[2018-07-05] MEDS: Pantoprazole 40 MG Tab.CR PO SCH (06:35)
[2018-07-05] MEDS: Gabapentin 300 MG Cap PO SCH ×2 (08:04→20:15)
[2018-07-05] MEDS: DULoxetine 60 MG Cap PO SCH (08:05)
[2018-07-05] MEDS: Metoprolol Tartrate 50 MG Tab PO SCH ×2 (08:05→20:14)
[2018-07-05] MEDS: Diltiazem 120 MG Cap.CD PO SCH (08:05)
[2018-07-05] MEDS: Topiramate 50 MG Tab PO SCH ×2 (08:05→20:13)
[2018-07-05] MEDS: Apixaban 5 MG Tab PO SCH ×2 (08:06→20:12)
[2018-07-05] MEDS: predniSONE 20 MG Tab PO SCH (08:06)
[2018-07-05] MEDS: Midodrine 5 MG Tab PO SCH ×2 (08:06→20:12)
[2018-07-05] MEDS ORDERED: Docusate Sodium 100 MG Cap PO PRN (08:40)
--- NOTE | 2018-07-05 11:03 | CONS ---
DATE OF CONSULTATION: 07/04/2018 DATE OF : 1960 PRIMARY CARE PHYSICIAN: Connor Melchor MD Site where the services are provided: [facility] in [place], [place]. Site where the services are provided from: Our offices in [facility]. Length of time for this inpatient telemedicine event is 60 minutes. IDENTIFICATION: The patient is a 58-year-old male, who was admitted to [place], [place] for complications from his chronic bronchopulmonary aspergillosis. He is seen for psychiatric evaluation per the request of staff attending, Dr. Gonsalves and his chief resident, Dr. Marques, and the rest of his treatment team. CHIEF COMPLAINT: "I contracted something called Aspergillus. The only way to treat it was with prednisone for over 4 years." HISTORY OF PRESENT ILLNESS: The patient is a 58-year-old male, who was admitted to the Inpatient Med-Surg unit at [facility], [place], [place] on July 02, 2018, for cellulitis caused by high prednisone use and chronic aspergillosis. He states "the prednisone caused his infection." The patient is stating that he has been struggling quite a bit lately with increased depression and anxiety. He states that the pain "is so bad in the last few months" that he is feeling more hopeless and overwhelmed. He is having mood swings and anxiety, in addition to his depression. He is not sleeping too good, maybe 2 to 6 hours of sleep per 24 hour period at this point in time, and he states that his energy levels are just pretty low, and he is not as active as he would like to be because of his physical limitations from his physical health issues. He denies that he is suicidal or homicidal. He denies any psychotic, delusional, or paranoia symptoms. He is just feeling more hopeless. He states he was on Cymbalta in the past, as well as a few other antidepressant medications, but of all of the medications he has been on, he felt that the Cymbalta worked the best in terms of improving his mood. He is not sure why he got taken off the Cymbalta, but he states "I have been in the hospital so many times and they changed the medications around and just one of the times it was stopped, and I just never got back on it." The patient is denying any illicit substance use or excessive alcohol that is complicating his clinical picture. MEDICATIONS: At the time of presentation: 1. Prednisone. He states he takes this medication orally anywhere between 10 to 60 mg a day. 2. Propranolol. 3. Diltiazem. 4. Gabapentin 800 mg b.i.d. ALLERGIES: 1. Levaquin. 2. Sporanox, which causes confusion. PAST MEDICAL HISTORY: 1. Long history of chronic bronchopulmonary aspergillosis. 2. History of asthma. 3. History of diverticulitis. 4. Status post bladder tumor removal. 5. Status post left nephrectomy. 6. 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 7. Ruptured Achilles tendon bilaterally. 8. Cellulitis on both feet bilaterally and right wrist. 9. History of pneumonia. 10.History of peripheral neuropathy. FAMILY PSYCHIATRIC AND CD HISTORY: The patient reports mother has a history of depression. PAST PSYCHIATRIC AND CD HISTORY: Patient denies any previous psychiatric hospitalizations or chemical dependency treatments. PAST PSYCHIATRIC MEDICATION HISTORY: Cymbalta, which worked; Lexapro, which the patient had a negative reaction to; Wellbutrin, the patient cannot remember what type reaction he had; Ambien, which he had a mixed response to; and Topamax, again he does not remember if it did anything positive or negative for him. SOCIAL HISTORY: Patient was born and raised in [place] in [facility] the [facility]. He had been living in [place], [place] for the past 6 months and moved out to [place] to be near his family. The patient worked in [employer] in [employer] x[employer] for 30 years, but for the past 9 years. Not involved in any current relationships now. He has two sons and one daughter from the marriage. He denies any prior service or current legal difficulties. He is Zoroastrianism in terms of his louann formation. He enjoys photography using camera and drones. He is currently living with his one son and his grandchild in [place], [place]. MENTAL STATUS EXAM: The patient is a 58-year-old white male, in no apparent distress. Speech is regular in rate and rhythm. The patient is cognitively oriented. Psychomotor activities within normal limits. There is no abnormal motor movements or tics observed. Gait and station are not observed, as the patient is lying on bed during the Telemedicine consult. The patient is cognitively oriented x3. Mood is depressed and anxious. Affect is consistent with state of mood, restrictive, but cooperative overall for the purposes of the Inpatient Psychiatric Consult. There is no behavioral or stated evidence of acute suicidal or homicidal ideation or acute psychotic, delusional, or paranoia symptoms. Thought processes are organized. There is no acute manic symptoms or loose associations evident. Judgment and insight appear unimpaired at this point in time. Motivation for help is good. Vitals are 134/66, 76, 18, and 36.2 degrees centigrade. IMPRESSION: [place] I: 1. Bipolar affective disease, mixed type, F31.60. 2. Anxiety disorder, not otherwise specified, F41.9. 3. Rule out major depressive disorder. [place] II: None. [place] III: 1. Long history of chronic bronchopulmonary aspergillosis with complications from long-term prednisone use. 2. See past medical history for other medical conditions. [place] IV: Severe. [place] V: 55. PLAN: 1. Begin trial of Cymbalta 60 mg q.a.m. x7 days, increase to 90 mg q.a.m. thereafter to help with mood. 2. Begin trial of Remeron 15 mg at bedtime, also to help with mood and sleep initiation maintenance, as well as anxiety reduction. 3. Begin trial of Topamax 25 mg b.i.d. x7 days, increase to 50 mg b.i.d. thereafter, to help with some mood stability and anxiety reduction. 4. Other medications as dosed and prescribed by the patient's primary inpatient medical treatment team. 5. We will continue to follow up with the patient on as needed basis while he remains on inpatient Med/Surg Unit at [place], [place]. 6. We will follow up with the patient sooner, if any complications in the interim. 7. Crisis plan is in place. DENIS / BISMARK /[id number]
[2018-07-05] MEDS: Tiotropium Bromide [Spiriva Respimat] 2 PUFF INH SCH (11:18)
--- NOTE | 2018-07-05 12:25 | PCM.PN ---
- General Info Date of Service: 07/05/18 Subjective Update: Patient continued to have pain secondary to cellulitis. - Patient Data Vitals - Most Recent: Last Vital Signs Temp 36.3 C 07/05/18 12:00 Pulse 80 07/05/18 12:00 Resp 22 H 07/05/18 12:00 BP 100/61 07/05/18 12:00 Pulse Ox 93 L 07/05/18 12:00 Weight - Most Recent: 65.771 kg I&O - Last 24 Hours: Intake & Output 07/04/18 07/05/18 07/05/18 22:59 06:59 14:59 Intake Total 770 650 Output Total 630 600 Balance 140 50 Lab Results Last 24 Hours: Laboratory Results - last 24 hr 07/04/18 07/05/18 07/05/18 Range/Units 09:34 05:05 05:05 WBC 5.01 (4.0-11.0) K/uL RBC 3.54 L (4.50-5.90) M/uL Hgb 9.7 L (13.0-17.0) g/dL Hct 30.9 L (38.0-50.0) % MCV 87.3 (80.0-98.0) fL MCH 27.4 (27.0-32.0) pg MCHC 31.4 (31.0-37.0) g/dL RDW Std Deviation 66.8 H (28.0-62.0) fl RDW Coeff of Tre 21 H (11.0-15.0) % Plt Count 90 L (150-400) K/uL MPV 10.60 (7.40-12.00) fL Neut % (Auto) 84.6 H (48.0-80.0) % Lymph % (Auto) 11.2 L (16.0-40.0) % [place] % (Auto) 3.6 (0.0-15.0) % Eos % (Auto) 0.6 (0.0-7.0) % Baso % (Auto) 0.0 (0.0-1.5) % Neut # (Auto) 4.2 (1.4-5.7) K/uL Lymph # (Auto) 0.6 (0.6-2.4) K/uL [place] # (Auto) 0.2 (0.0-0.8) K/uL Eos # (Auto) 0.0 (0.0-0.7) K/uL Baso # (Auto) 0.0 (0.0-0.1) K/uL Nucleated RBC % 0.0 /100WBC Nucleated RBCs # 0 K/uL Sodium 139 (136-148) mmol/L Potassium 4.0 (3.5-5.1) mmol/L Chloride 104 (98-107) mmol/L Carbon Dioxide 30.7 (21.0-32.0) mmol/L BUN 29 H (7.0-18.0) mg/dL Creatinine 1.2 (0.8-1.3) mg/dL Est Cr Clr Drug Dosing 56.19 mL/min Estimated GFR (MDRD) > 60.0 ml/min Glucose 83 (74-106) mg/dL Calcium 7.5 L (8.5-10.1) mg/dL Phosphorus 1.6 L (2.6-4.7) mg/dL Magnesium 1.8 (1.8-2.4) mg/dL Total Bilirubin 0.8 (0.2-1.0) mg/dL AST 185 H (15-37) IU/L ALT 191 H (14-63) IU/L Alkaline Phosphatase 94 (46-116) U/L Total Protein 5.2 L (6.4-8.2) g/dL Albumin 1.3 L (3.4-5.0) g/dL Globulin 3.9 (2.6-4.0) g/dL Albumin/Globulin Ratio 0.3 L (0.9-1.6) Steve Results Last 24 Hours: Microbiology 07/03/18 11:28 Aerobic Blood Culture - Preliminary Blood - Venous Anaerobic Blood Culture - Preliminary NO GROWTH AFTER 2 DAYS 07/03/18 11:38 Aerobic Blood Culture - Preliminary Blood - Venous - Lab Draw Anaerobic Blood Culture - Final 07/02/18 20:42 Aerobic Blood Culture - Final Blood - Venous Escherichia Coli Anaerobic Blood Culture - Final 07/02/18 20:52 Aerobic Blood Culture - Final Blood - Venous - Lab Draw Anaerobic Blood Culture - Final Med Orders - Current: Current Medications Acetaminophen (Tylenol) 650 mg PO Q4H PRN PRN Reason: Pain (Mild 1-3)/fever Last Admin: 07/04/18 23:52 Dose: 650 mg Albuterol (Proventil Neb Soln) 2.5 mg NEB Q4H PRN PRN Reason: Shortness of Breath Last Admin: 07/04/18 23:26 Dose: 2.5 mg Apixaban (Eliquis) 5 mg PO BID [facility] Last Admin: 07/05/18 08:06 Dose: 5 mg Diltiazem HCl (Cardizem Cd) 240 mg PO DAILY [facility] Last Admin: 07/05/18 08:05 Dose: 240 mg Docusate Sodium (Colace) 100 mg PO TID PRN PRN Reason: Constipation Duloxetine HCl (Cymbalta) 60 mg PO DAILY [facility] Last Admin: 07/05/18 08:05 Dose: 60 mg Gabapentin (Neurontin) 1,200 mg PO BID [facility] Last Admin: 07/05/18 08:04 Dose: 1,200 mg Hydromorphone HCl (Dilaudid) 1 mg IVPUSH Q2H PRN PRN Reason: Pain (severe 7-10) Last Admin: 07/05/18 11:32 Dose: 1 mg Piperacillin Sod/Tazobactam (Sod 3.375 gm/ Sodium Chloride) 50 mls @ 100 mls/ hr IV Q6H [facility] Last Admin: 07/05/18 08:06 Dose: 100 mls/hr Vancomycin HCl 0.75 gm/ Sodium (Chloride) 250 mls @ 166.667 mls/hr IV Q12H [facility] Last Admin: 07/05/18 11:30 Dose: 166.667 mls/hr Metoprolol Tartrate (Lopressor) 50 mg PO BID [facility] Last Admin: 07/05/18 08:05 Dose: 50 mg Midodrine (Midodrine) 2.5 mg PO BID [facility] Last Admin: 07/05/18 08:06 Dose: 2.5 mg Mirtazapine (Remeron) 15 mg PO BEDTIME [facility] Last Admin: 07/04/18 21:36 Dose: 15 mg Morphine Sulfate (Morphine) 15 mg PO Q6H PRN PRN Reason: Pain Last Admin: 07/04/18 22:29 Dose: 15 mg Ondansetron HCl (Zofran) 4 mg IVPUSH Q4H PRN PRN Reason: Nausea Pantoprazole Sodium (Protonix) 40 mg PO ACBREAKFAST [facility] Last Admin: 07/05/18 06:35 Dose: 40 mg Tiotropium Mason [ Spiriva Respimat] 2 Puff 2 each INH DAILY [facility] Last Admin: 07/05/18 11:18 Dose: Not Given Prednisone (Prednisone) 20 mg PO DAILY [facility] Last Admin: 07/05/18 08:06 Dose: 20 mg Sodium Phosphate (Neutra-Phos) 250 mg PO QID [facility] Last Admin: 07/05/18 11:28 Dose: 250 mg Topiramate (Topamax) 25 mg PO BID [facility] Last Admin: 07/05/18 08:05 Dose: 25 mg Trazodone HCl (Trazodone) 50 mg PO BEDTIME [facility] Last Admin: 07/04/18 21:28 Dose: 50 mg Discontinued Medications Gabapentin (Neurontin) 600 mg PO BID [facility] Last Admin: 07/03/18 20:56 Dose: 600 mg Hydromorphone HCl (Dilaudid) 1 mg IVPUSH ONETIME ONE Stop: 07/02/18 22:39 Last Admin: 07/02/18 22:56 Dose: 1 mg Hydromorphone HCl (Dilaudid) 0.5 mg IVPUSH Q2H PRN PRN Reason: Pain (severe 7-10) Last Admin: 07/04/18 07:59 Dose: 0.5 mg Piperacillin Sod/Tazobactam (Sod 3.375 gm/ Sodium Chloride) 50 mls @ 100 mls/ hr IV ONETIME ONE Stop: 07/02/18 21:36 Last Admin: 07/02/18 21:23 Dose: 100 mls/hr Sodium Chloride (Normal Saline) 1,000 mls @ 999 mls/hr IV STAT ONE Stop: 07/02/18 22:08 Last Admin: 07/02/18 21:22 Dose: 999 mls/hr Vancomycin HCl 1 gm/ Sodium (Chloride) 250 mls @ 166 mls/hr IV ONETIME ONE Stop: 07/03/18 00:15 Last Admin: 07/02/18 22:58 Dose: 166 mls/hr Sodium Chloride (Normal Saline) 1,000 mls @ 100 mls/hr IV ASDIRECTED [facility] Vancomycin HCl 1 gm/ Sodium (Chloride) 250 mls @ 166 mls/hr IV Q12H [facility] Last Admin: 07/04/18 11:01 Dose: Not Given Metoprolol Tartrate (Lopressor) Confirm Administered Dose 50 mg .ROUTE .STK-MED ONE Stop: 07/03/18 06:39 Last Admin: 07/03/18 06:43 Dose: Not Given Pantoprazole Sodium (Protonix) Confirm Administered Dose 40 mg .ROUTE .STK- MED ONE Stop: 07/03/18 05:29 Last Admin: 07/03/18 05:36 Dose: Not Given Vancomycin HCl (Pharmacy To Dose - Vancomycin) 1 dose .XX ASDIRECTED DANIELITO - Exam Quality Assessment: Supplemental Oxygen General: Alert, Oriented, Mild Distress, Moderate Distress Lungs: Clear to Auscultation, Normal Respiratory Effort Cardiovascular: Regular Rate, Regular Rhythm Extremities: Other (Inflammation/edema of the cellularity can on the right does appear to be decreasing, continue to monitor.) - Problem List Review Problem List Initiated/Reviewed/Updated: Yes - My Orders Last 24 Hours: My Active Orders 07/04/18 13:25 Consult to Physician [CONS] Routine 07/04/18 13:26 Notify Provider Consults [RC] ASDIRECTED 07/04/18 18:00 Phosphorus #1 [Neutra-Phos] 250 mg PO QID 07/05/18 08:40 Docusate Sodium [Colace] 100 mg PO TID PRN 07/05/18 08:42 Blood Culture x2 Reflex Set [OM.PC] Stat 07/05/18 09:15 CULTURE BLOOD [BC] Stat 07/05/18 09:29 CULTURE BLOOD [BC] Stat 07/05/18 10:09 UA W/STEVE RFLX IF INDICATED [URIN] Stat 07/05/18 10:10 Abdomen Ltd [US] Stat Abdomen Pelvis wo Cont [CT] Stat - Plan Plan:: 58 yo male admitted for cellulitis of left foot and right hand. -Patient's first set of blood cultures are growing Escherichia coli which was sensitive to Zosyn. Second set has again grown a gram-negative rods which were done 2 days prior, obtaining another set of blood cultures today. -Shall get a UA as well as CT of the abdomen pelvis and ultrasound of the gallbladder to assess for possible source of the patient's Escherichia coli infection. -Continue with Zosyn and Vanc. IV for Cellulitis coverage -MRI results do not indicate any signs of osteomyelitis -Pt was complaining of bilateral hip pain, a Stat CT was ordered and did not show any signs of infectious process. Pt does not require a Ortho Consult -Pt complaining of significant pain, shall increase pain meds and reassess -Pt due to his ongoing issues with cellulits and other comorbidities would like a psychiatry consult. -Dr. Tolliver has spoken with the patient, awaiting Dr. Tolliver's note, he has placed medical intervention orders in for the patient's psychiatric issues.
--- NOTE | 2018-07-05 12:25 | CT ---
CT of the abdomen and pelvis without contrast. HISTORY: Bacteremia TECHNIQUE: Axial CT images were obtained of the abdomen and pelvis without contrast. Coronal and sagittal reconstructions obtained. FINDINGS: Trace bilateral pleural effusions. Mild right basilar atelectasis, a small component of infiltrate is not excluded. The liver, spleen, adrenal glands, and pancreas appear unremarkable for noncontrast examination. The gallbladder appears normal. There is no bulky retroperitoneal lymphadenopathy. No abdominal ascites. There is an IVC filter noted. 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 Punctate nonobstructing right renal calculi. The large and small bowel are normal in caliber without evidence of obstruction. There is a trace stranding within the right lower quadrant however the appendix is normal in size and unchanged in appearance. Mild diverticulosis without evidence of diverticulitis. There is no bulky pelvic lymphadenopathy. No free fluid. No free air. The urinary bladder appears normal. Left total hip hardware is demonstrated. Moderate compression deformities noted at T12 and L1. IMPRESSION: 1. Moderate amount of stool throughout the colon which may represent constipation. 2. Stable stranding within the right lower quadrant with a borderline appendix. 3. Nonobstructing right nephrolithiasis. 4. Diverticulosis without evidence of diverticulitis. 5. Small bilateral pleural effusions, a small component of infiltrate within the right lung base is not excluded.
--- NOTE | 2018-07-05 12:25 | US ---
EXAMINATION: Right upper quadrant ultrasound HISTORY: Bacteremia COMPARISON: From the same day TECHNIQUE: Grayscale and color Doppler imaging obtained of the right upper quadrant. FINDINGS: The visualized pancreas appears normal. There is normal in contour and echotexture without a focal hepatic mass. Gallbladder wall thickness is normal. No pericholecystic fluid or shadowing gallstones. Common bile duct measures 2 mm. Negative sonographic Peace sign. Small right pleural effusion. Right kidney measures at least 11.3 centers [id number] without evidence of hydronephrosis. IMPRESSION: 1. No acute findings noted within the right upper quadrant.
[2018-07-05] MEDS: Morphine 15 MG Tab PO PRN (16:19)
[2018-07-05] MEDS: traZODone 50 MG Tab PO SCH (20:12)
[2018-07-05] MEDS: Mirtazapine 15 MG Tab.DIS PO SCH (20:14)
[2018-07-06] MEDS: Morphine 15 MG Tab PO PRN ×4 (02:56→23:07)
[2018-07-06] MEDS: Piperacillin/Tazobactam 3.375 GM in Sodium Chloride 0.9% 50 ML IV SCH ×4 (02:57→21:21)
[2018-07-06] MEDS: Phosphorus #1 250 MG Tab PO SCH ×4 (06:00→23:07)
[2018-07-06] MEDS: Pantoprazole 40 MG Tab.CR PO SCH (06:31)
[2018-07-06] MEDS: Gabapentin 300 MG Cap PO SCH ×2 (08:25→21:01)
[2018-07-06] MEDS: Diltiazem 120 MG Cap.CD PO SCH (08:26)
[2018-07-06] MEDS: DULoxetine 60 MG Cap PO SCH (08:27)
[2018-07-06] MEDS: Metoprolol Tartrate 50 MG Tab PO SCH ×2 (08:29→21:00)
[2018-07-06] MEDS: predniSONE 20 MG Tab PO SCH (08:29)
[2018-07-06] MEDS: Apixaban 5 MG Tab PO SCH ×2 (08:30→21:05)
[2018-07-06] MEDS: Topiramate 50 MG Tab PO SCH ×2 (08:30→20:57)
[2018-07-06] MEDS: Midodrine 5 MG Tab PO SCH ×2 (08:31→21:04)
[2018-07-06] MEDS: Tiotropium Bromide [Spiriva Respimat] 2 PUFF INH SCH ×2 (09:25→09:27)
--- NOTE | 2018-07-06 11:17 | PCM.PN ---
- General Info Date of Service: 07/06/18 Subjective Update: Patient under control, patient stable. - Patient Data Vitals - Most Recent: Last Vital Signs Temp 36.6 C 07/06/18 08:00 Pulse 118 H 07/06/18 08:29 Resp 20 07/06/18 08:00 BP 131/90 07/06/18 08:29 Pulse Ox 96 07/06/18 08:00 Weight - Most Recent: 65.771 kg I&O - Last 24 Hours: Intake & Output 07/05/18 07/06/18 07/06/18 22:59 06:59 14:59 Intake Total 720 50 Output Total 300 Balance 420 50 Lab Results Last 24 Hours: Laboratory Results - last 24 hr 07/05/18 07/05/18 Range/Units 17:30 22:24 Urine Color YELLOW Urine Appearance CLEAR Urine pH 7.0 (5.0-8.0) Ur Specific [place] 1.015 (1.001-1.035) Urine Protein TRACE H (NEGATIVE) mg/dL Urine Glucose (UA) 500 H (NEGATIVE) mg/dL Urine Ketones NEGATIVE (NEGATIVE) mg/dL Urine Occult Blood NEGATIVE (NEGATIVE) Urine Nitrite NEGATIVE (NEGATIVE) Urine Bilirubin NEGATIVE (NEGATIVE) Urine Urobilinogen 1.0 (<2.0) EU/dL Ur Leukocyte Esterase NEGATIVE (NEGATIVE) Urine RBC 0-1 (0-2/HPF) Urine WBC 0-1 (0-5/HPF) Ur Epithelial Cells RARE (NONE-FEW) Urine Bacteria RARE (NEGATIVE) Vancomycin Trough 16.1 H (5.0-10.0) ug/mL Steve Results Last 24 Hours: Microbiology 07/05/18 09:15 Aerobic Blood Culture - Preliminary Blood - Venous - Lab Draw Anaerobic Blood Culture - Preliminary NO GROWTH AFTER 1 DAY 07/05/18 09:29 Aerobic Blood Culture - Preliminary Blood - Venous Anaerobic Blood Culture - Preliminary NO GROWTH AFTER 1 DAY 07/03/18 11:38 Aerobic Blood Culture - Final Blood - Venous - Lab Draw Anaerobic Blood Culture - Final 07/03/18 11:28 Aerobic Blood Culture - Final Blood - Venous Escherichia Coli Anaerobic Blood Culture - Preliminary NO GROWTH AFTER 2 DAYS 07/02/18 20:42 Aerobic Blood Culture - Final Blood - Venous Escherichia Coli Anaerobic Blood Culture - Final 07/02/18 20:52 Aerobic Blood Culture - Final Blood - Venous - Lab Draw Anaerobic Blood Culture - Final Med Orders - Current: Current Medications Acetaminophen (Tylenol) 650 mg PO Q4H PRN PRN Reason: Pain (Mild 1-3)/fever Last Admin: 07/04/18 23:52 Dose: 650 mg Albuterol (Proventil Neb Soln) 2.5 mg NEB Q4H PRN PRN Reason: Shortness of Breath Last Admin: 07/04/18 23:26 Dose: 2.5 mg Apixaban (Eliquis) 5 mg PO BID [facility] Last Admin: 07/06/18 08:30 Dose: 5 mg Diltiazem HCl (Cardizem Cd) 240 mg PO DAILY [facility] Last Admin: 07/06/18 08:26 Dose: 240 mg Docusate Sodium (Colace) 100 mg PO TID PRN PRN Reason: Constipation Last Admin: 07/05/18 20:26 Dose: 100 mg Duloxetine HCl (Cymbalta) 60 mg PO DAILY [facility] Last Admin: 07/06/18 08:27 Dose: 60 mg Gabapentin (Neurontin) 1,200 mg PO BID [facility] Last Admin: 07/06/18 08:25 Dose: 1,200 mg Piperacillin Sod/Tazobactam (Sod 3.375 gm/ Sodium Chloride) 50 mls @ 100 mls/ hr IV Q6H [facility] Last Admin: 07/06/18 08:21 Dose: 100 mls/hr Vancomycin HCl 1 gm/ Sodium (Chloride) 250 mls @ 166 mls/hr IV Q24H [facility] Metoprolol Tartrate (Lopressor) 50 mg PO BID [facility] Last Admin: 07/06/18 08:29 Dose: 50 mg Midodrine (Midodrine) 2.5 mg PO BID [facility] Last Admin: 07/06/18 08:31 Dose: 2.5 mg Mirtazapine (Remeron) 15 mg PO BEDTIME [facility] Last Admin: 07/05/18 20:14 Dose: 15 mg Morphine Sulfate (Morphine) 15 mg PO Q6H PRN PRN Reason: Pain Last Admin: 07/06/18 09:23 Dose: 15 mg Morphine Sulfate (Morphine Sulfate) 4 mg IV Q4H PRN PRN Reason: Pain Last Admin: 07/06/18 07:59 Dose: 4 mg Ondansetron HCl (Zofran) 4 mg IVPUSH Q4H PRN PRN Reason: Nausea Pantoprazole Sodium (Protonix) 40 mg PO ACBREAKFAST [facility] Last Admin: 07/06/18 06:31 Dose: 40 mg Tiotropium [place] [ Spiriva Respimat] 2 Puff 2 each INH DAILY [facility] Last Admin: 07/06/18 09:27 Dose: Not Given Prednisone (Prednisone) 20 mg PO DAILY [facility] Last Admin: 07/06/18 08:29 Dose: 20 mg Sodium Phosphate (Neutra-Phos) 250 mg PO QID [facility] Last Admin: 07/06/18 06:00 Dose: 250 mg Topiramate (Topamax) 25 mg PO BID [facility] Last Admin: 07/06/18 08:30 Dose: 25 mg Trazodone HCl (Trazodone) 50 mg PO BEDTIME [facility] Last Admin: 07/05/18 20:12 Dose: 50 mg Discontinued Medications Gabapentin (Neurontin) 600 mg PO BID [facility] Last Admin: 07/03/18 20:56 Dose: 600 mg Hydromorphone HCl (Dilaudid) 1 mg IVPUSH ONETIME ONE Stop: 07/02/18 22:39 Last Admin: 07/02/18 22:56 Dose: 1 mg Hydromorphone HCl (Dilaudid) 0.5 mg IVPUSH Q2H PRN PRN Reason: Pain (severe 7-10) Last Admin: 07/04/18 07:59 Dose: 0.5 mg Hydromorphone HCl (Dilaudid) 1 mg IVPUSH Q2H PRN PRN Reason: Pain (severe 7-10) Last Admin: 07/05/18 11:32 Dose: 1 mg Piperacillin Sod/Tazobactam (Sod 3.375 gm/ Sodium Chloride) 50 mls @ 100 mls/ hr IV ONETIME ONE Stop: 07/02/18 21:36 Last Admin: 07/02/18 21:23 Dose: 100 mls/hr Sodium Chloride (Normal Saline) 1,000 mls @ 999 mls/hr IV STAT ONE Stop: 07/02/18 22:08 Last Admin: 07/02/18 21:22 Dose: 999 mls/hr Vancomycin HCl 1 gm/ Sodium (Chloride) 250 mls @ 166 mls/hr IV ONETIME ONE Stop: 07/03/18 00:15 Last Admin: 07/02/18 22:58 Dose: 166 mls/hr Sodium Chloride (Normal Saline) 1,000 mls @ 100 mls/hr IV ASDIRECTED [facility] Vancomycin HCl 1 gm/ Sodium (Chloride) 250 mls @ 166 mls/hr IV Q12H [facility] Last Admin: 07/04/18 11:01 Dose: Not Given Vancomycin HCl 0.75 gm/ Sodium (Chloride) 250 mls @ 166.667 mls/hr IV Q12H [facility] Last Admin: 07/05/18 23:32 Dose: 166.667 mls/hr Metoprolol Tartrate (Lopressor) Confirm Administered Dose 50 mg .ROUTE .STK-MED ONE Stop: 07/03/18 06:39 Last Admin: 07/03/18 06:43 Dose: Not Given Morphine Sulfate (Morphine Sulfate) 4 mg IV Q4H [facility] Last Admin: 07/05/18 15:23 Dose: Not Given Pantoprazole Sodium (Protonix) Confirm Administered Dose 40 mg .ROUTE .STK- MED ONE Stop: 07/03/18 05:29 Last Admin: 07/03/18 05:36 Dose: Not Given Vancomycin HCl (Pharmacy To Dose - Vancomycin) 1 dose .XX ASDIRECTED [facility] - Exam General: Alert, Oriented, Cooperative, Mild Distress Lungs: Normal Respiratory Effort Cardiovascular: Regular Rate, Regular Rhythm GI/Abdominal Exam: Soft, Non-Tender, Other (No rebound tenderness of right lower quadrant or mid epigastric area tenderness or abdominal pain on palpation) Extremities: Other (Right hand cellulitis and left lower leg cellulitis continued to improve) - Problem List Review Problem List Initiated/Reviewed/Updated: Yes - My Orders Last 24 Hours: My Active Orders 07/05/18 14:58 Morphine Sulfate 4 mg IV Q4H PRN 07/06/18 CBC WITH AUTO DIFF [HEME] Routine 07/06/18 09:17 COMPREHENSIVE METABOLIC PN,CMP [CHEM] Routine MAGNESIUM [CHEM] Routine PHOSPHORUS [CHEM] Routine 07/06/18 10:21 CRP [C-REACTIVE PROTEIN] [CHEM] Routine - Plan Plan:: 58 yo male admitted for cellulitis of left foot and right hand. -Patient's first set of blood cultures are growing Escherichia coli which was sensitive to Zosyn. Second set has again grown a gram-negative rods which were done 2 days prior, patient stated set of blood cultures again have grown gram negative rods. -Patient's IV antibiotics however all other fully effective in covering the Escherichia coli that has grown on the first 2 blood cultures. -CT of the abdomen and pelvis that was done yesterday shows stable stranding of the appendix which is normal in size. -Shall discuss with general surgery to get their opinion
[2018-07-06 12:01] LABS: CHLORIDE,CL 102 mmol/L (98-107); SODIUM,NA 137 mmol/L (136-148)
--- NOTE | 2018-07-06 14:07 | PCM.CONS ---
H&P History of Present Illness - General Date of Service: 07/06/18 Admit Problem/Dx: Admission Diagnosis/Problem Admission Diagnosis/Problem Cellulitis Source of Information: Patient History Limitations: Reports: No Limitations - History of Present Illness Initial Comments - Free Text/Narative: Patient is a 58 year old male who was admitted to the medicine service with cellulitis of the left lower leg and swelling of the right hand. He has had 2 positive blood cultures that grew e coli. As a part of the work up the patient had a CT of the hip as well as a CT of the abdomen. He has a retrocecal appendix that is the upper limits of normal in size with a trace amount of stranding around it. He denies any abdominal pain. He has had one small bowel movement since admission. His CT did show a moderate-large amount of stool throughout the colon. Right wrist;right shoulder Pain Score (Numeric/FACES): 8 - Related Data Allergies/Adverse Reactions: Allergies Allergy/AdvReac Type Severity Reaction Status Date / Time itraconazole [From Sporanox] Allergy Unknown Confusion Verified 07/02/18 23:46 levofloxacin [From Levaquin] Allergy Unknown Other Verified 07/02/18 23:46 Home Medications: Home Meds Finasteride 5 mg PO DAILY 01/11/16 [History] Fluticasone/Vilanterol [Breo Ellipta 200-25 Mcg INH] 1 inh INH DAILY 01/11/16 [ History] Gabapentin [Neurontin] 1,600 mg PO BID 01/11/16 [History] Testosterone [Androgel] 4 pump TOP DAILY 01/11/16 [History] predniSONE [Prednisone] 20 mg PO DAILY 01/11/16 [History] Tiotropium [place] [Spiriva Respimat] 2 puff INH BID 01/12/16 [History] Morphine 15 mg PO Q6H PRN #10 tablet 01/15/16 [Rx] Albuterol Sulfate 2.5 mg IH DAILY 05/19/18 [History] Apixaban [Eliquis] 5 mg PO BID 05/19/18 [History] Diltiazem HCl [Diltiazem 24Hr ER] 240 mg PO DAILY 05/19/18 [History] Icosapent Ethyl [Vascepa] 1 gm PO DAILY 05/19/18 [History] Pantoprazole [ProTONIX] 40 mg PO DAILY 05/19/18 [History] Metoprolol Tartrate 50 mg PO BID 05/20/18 [History] Midodrine 2.5 mg PO BID 05/20/18 [History] traZODone HCl [Trazodone HCl] 50 mg PO BEDTIME 05/20/18 [History] Iron Polysaccharides Complex [Ferrex 150] 150 mg PO DAILY 30 Days #30 cap [Rx] Albuterol [Proventil Neb Soln] 2.5 mg NEB Q4HR PRN #15 neb 06/29/18 [Rx] Diclofenac Sodium [Voltaren 1%] 1 applic TP QID #1 tube 06/29/18 [Rx] predniSONE [Prednisone] 20 mg PO DAILY #5 tablet 06/29/18 [Rx] Past Medical History HEENT History: Reports: Cataract Other HEENT History: dental fillings due to caries; recent tooth fracture Cardiovascular History: Reports: Afib, Cardiomyopathy, Heart Failure, Hypertension, [place] Respiratory History: Reports: Asthma, Bronchitis, Recurrent, PE, Pneumonia, Recurrent, Other (See Below) Other Respiratory History: Chronic pulmonary aspergillosis, 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 bilateral achilles tendon ruptures and repair. 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 No explantation- -they apparently just treated him with IV abx for months. - Past Surgical History HEENT Surgical History: Reports: Cataract Surgery Respiratory Surgical History: Reports: Lung Resection Other Respiratory Surgeries/Procedures: intubated last Feb 2018 and transfered to [place] Musculoskeletal Surgical History: Reports: Shoulder Surgery, Other (See Below) Other Musculoskeletal Surgeries/Procedures:: L shoulder and left hip surgery Social & Family History - Family History Family Medical History: Noncontributory - Tobacco Use Smoking Status *Q: Never Smoker - Caffeine Use Caffeine Use: Reports: Coffee - Recreational Drug Use Recreational Drug Use: No - Living Situation & Occupation Living situation: Reports: Single Occupation: Disabled H&P Review of Systems - Review of Systems: Review Of Systems: ROS reveals no pertinent complaints other than HPI. Exam - Exam Exam: See Below - Vital Signs Vital Signs: Last Vital Signs Temp 37.5 C 07/06/18 12:00 Pulse 96 07/06/18 12:00 Resp 18 07/06/18 12:00 BP 134/56 L 07/06/18 12:00 Pulse Ox 92 L 07/06/18 12:00 Weight: 65.771 kg - Exam Quality Assessment: Supplemental Oxygen General: Alert, Oriented, Cooperative HEENT: Conjunctiva Clear Lungs: Clear to Auscultation, Normal Respiratory Effort Cardiovascular: Regular Rate, Regular Rhythm GI/Abdominal Exam: Normal Bowel Sounds, Soft, Non-Tender, No Distention, No Mass , Other (No rosvigs or obturators sign). No: Guarding, Rigid, Rebound, Tender - Patient Data Lab Results Last 24 hrs: Laboratory Results - last 24 hr 07/05/18 07/05/18 07/06/18 Range/Units 17:30 22:24 09:17 WBC (4.0-11.0) K/uL RBC (4.50-5.90) M/uL Hgb (13.0-17.0) g/dL Hct (38.0-50.0) % MCV (80.0-98.0) fL MCH (27.0-32.0) pg MCHC (31.0-37.0) g/dL RDW Std Deviation (28.0-62.0) fl RDW Coeff of Tre (11.0-15.0) % Plt Count (150-400) K/uL MPV (7.40-12.00) fL Neut % (Auto) (48.0-80.0) % Lymph % (Auto) (16.0-40.0) % Ward % (Auto) (0.0-15.0) % Eos % (Auto) (0.0-7.0) % Baso % (Auto) (0.0-1.5) % Neut # (Auto) (1.4-5.7) K/uL Lymph # (Auto) (0.6-2.4) K/uL [place] # (Auto) (0.0-0.8) K/uL Eos # (Auto) (0.0-0.7) K/uL Baso # (Auto) (0.0-0.1) K/uL Sodium 137 (136-148) mmol/L Potassium 4.3 (3.5-5.1) mmol/L Chloride 102 (98-107) mmol/L Carbon Dioxide 27.1 (21.0-32.0) mmol/L BUN 26 H (7.0-18.0) mg/dL Creatinine 1.2 (0.8-1.3) mg/dL Est Cr Clr Drug Dosing 56.19 mL/min Estimated GFR (MDRD) > 60.0 ml/min Glucose 100 (74-106) mg/dL Calcium 7.8 L (8.5-10.1) mg/dL Phosphorus 2.5 L (2.6-4.7) mg/dL Magnesium 1.7 L (1.8-2.4) mg/dL Total Bilirubin 0.9 (0.2-1.0) mg/dL AST 75 H (15-37) IU/L ALT 127 H (14-63) IU/L Alkaline Phosphatase 87 (46-116) U/L C-Reactive Protein (0.00-0.90) mg/dL Total Protein 5.6 L (6.4-8.2) g/dL Albumin 1.4 L (3.4-5.0) g/dL Globulin 4.2 H (2.6-4.0) g/dL Albumin/Globulin Ratio 0.3 L (0.9-1.6) Urine Color YELLOW Urine Appearance CLEAR Urine pH 7.0 (5.0-8.0) Ur Specific [place] 1.015 (1.001-1.035) Urine Protein TRACE H (NEGATIVE) mg/dL Urine Glucose (UA) 500 H (NEGATIVE) mg/dL Urine Ketones NEGATIVE (NEGATIVE) mg/dL Urine Occult Blood NEGATIVE (NEGATIVE) Urine Nitrite NEGATIVE (NEGATIVE) Urine Bilirubin NEGATIVE (NEGATIVE) Urine Urobilinogen 1.0 (<2.0) EU/dL Ur Leukocyte Esterase NEGATIVE (NEGATIVE) Urine RBC 0-1 (0-2/HPF) Urine WBC 0-1 (0-5/HPF) Ur Epithelial Cells RARE (NONE-FEW) Urine Bacteria RARE (NEGATIVE) Vancomycin Trough 16.1 H (5.0-10.0) ug/mL 07/06/18 07/06/18 Range/Units 10:20 11:08 WBC 5.88 (4.0-11.0) K/uL RBC 4.02 L (4.50-5.90) M/uL Hgb 11.1 L (13.0-17.0) g/dL Hct 35.8 L (38.0-50.0) % MCV 89.1 (80.0-98.0) fL MCH 27.6 (27.0-32.0) pg MCHC 31.0 (31.0-37.0) g/dL RDW Std Deviation 67.9 H (28.0-62.0) fl RDW Coeff of Tre 21 H (11.0-15.0) % Plt Count 72 L (150-400) K/uL MPV 10.70 (7.40-12.00) fL Neut % (Auto) 91.4 H (48.0-80.0) % Lymph % (Auto) 4.9 L (16.0-40.0) % Ward % (Auto) 2.6 (0.0-15.0) % Eos % (Auto) 0.9 (0.0-7.0) % Baso % (Auto) 0.2 (0.0-1.5) % Neut # (Auto) 5.4 (1.4-5.7) K/uL Lymph # (Auto) 0.3 L (0.6-2.4) K/uL [place] # (Auto) 0.2 (0.0-0.8) K/uL Eos # (Auto) 0.1 (0.0-0.7) K/uL Baso # (Auto) 0.0 (0.0-0.1) K/uL Sodium (136-148) mmol/L Potassium (3.5-5.1) mmol/L Chloride (98-107) mmol/L Carbon Dioxide (21.0-32.0) mmol/L BUN (7.0-18.0) mg/dL Creatinine (0.8-1.3) mg/dL Est Cr Clr Drug Dosing mL/min Estimated GFR (MDRD) ml/min Glucose (74-106) mg/dL Calcium (8.5-10.1) mg/dL Phosphorus (2.6-4.7) mg/dL Magnesium (1.8-2.4) mg/dL Total Bilirubin (0.2-1.0) mg/dL AST (15-37) IU/L ALT (14-63) IU/L Alkaline Phosphatase (46-116) U/L C-Reactive Protein 35.30 H (0.00-0.90) mg/dL Total Protein (6.4-8.2) g/dL Albumin (3.4-5.0) g/dL Globulin (2.6-4.0) g/dL Albumin/Globulin Ratio (0.9-1.6) Urine Color Urine Appearance Urine pH (5.0-8.0) Ur Specific [place] (1.001-1.035) Urine Protein (NEGATIVE) mg/dL Urine Glucose (UA) (NEGATIVE) mg/dL Urine Ketones (NEGATIVE) mg/dL Urine Occult Blood (NEGATIVE) Urine Nitrite (NEGATIVE) Urine Bilirubin (NEGATIVE) Urine Urobilinogen (<2.0) EU/dL Ur Leukocyte Esterase (NEGATIVE) Urine RBC (0-2/HPF) Urine WBC (0-5/HPF) Ur Epithelial Cells (NONE-FEW) Urine Bacteria (NEGATIVE) Vancomycin Trough (5.0-10.0) ug/mL Result Diagrams: 07/06/18 10:20 07/06/18 09:17 Steve Results Last 24 hrs: Microbiology 07/03/18 11:28 Aerobic Blood Culture - Final Blood - Venous Escherichia Coli Anaerobic Blood Culture - Preliminary NO GROWTH AFTER 3 DAYS 07/05/18 09:15 Aerobic Blood Culture - Preliminary Blood - Venous - Lab Draw Anaerobic Blood Culture - Preliminary NO GROWTH AFTER 1 DAY 07/05/18 09:29 Aerobic Blood Culture - Preliminary Blood - Venous Anaerobic Blood Culture - Preliminary NO GROWTH AFTER 1 DAY 07/03/18 11:38 Aerobic Blood Culture - Final Blood - Venous - Lab Draw Anaerobic Blood Culture - Final Consult PN Assessment/Plan Procedures: Procedures AIRWAY INHALATION TREATMENT (06/29/18) ASSAY OF FERRITIN (05/20/18) ASSAY OF LACTIC ACID (06/23/18) ASSAY OF MAGNESIUM (05/20/18) ASSAY OF NATRIURETIC PEPTIDE (05/02/18) ASSAY OF PHOSPHORUS (05/20/18) ASSAY OF TROPONIN QUANT (06/23/18) ASSAY OF VANCOMYCIN (05/20/18) ASSAY THYROID STIM HORMONE (05/02/18) AUTOMATED RETICULOCYTE COUNT (05/20/18) BLOOD CULTURE FOR BACTERIA (06/23/18) BLOOD GASES ANY COMBINATION (05/02/18) C-REACTIVE PROTEIN (05/20/18) COMPLETE CBC W/AUTO DIFF WBC (06/23/18) COMPREHEN METABOLIC PANEL (06/23/18) CRITICAL CARE ADDL 30 MIN (05/02/18) CRITICAL CARE FIRST HOUR (05/02/18) CT HEAD/BRAIN W/O DYE (06/23/18) CT THORAX W/O DYE (06/23/18) DRUG TEST PRSMV DIR OPT OBS (05/02/18) ELECTROCARDIOGRAM TRACING (06/23/18) EMERGENCY DEPT VISIT (06/29/18) EMERGENCY DEPT VISIT (06/23/18) EMERGENCY DEPT VISIT (05/20/18) EMERGENCY DEPT VISIT (01/11/16) GLUCOSE BLOOD TEST (05/20/18) GLYCOSYLATED HEMOGLOBIN TEST (05/20/18) HELICOBACTER PYLORI ANTIBODY (05/20/18) HYDRATE IV INFUSION ADD-ON (06/23/18) HYDRATION IV INFUSION INIT (02/27/18) INSERT EMERGENCY AIRWAY (05/02/18) INSERT TEMP BLADDER CATH (06/29/18) IRON BINDING TEST (05/20/18) LIPID PANEL (05/20/18) METABOLIC PANEL TOTAL CA (06/23/18) MRI BRAIN STEM W/O DYE (06/23/18) OCCULT BLD FECES 1-3 TESTS (05/20/18) PROTHROMBIN TIME (05/02/18) RBC SED RATE AUTOMATED (01/11/16) ROUTINE VENIPUNCTURE (06/23/18) THER/PROPH/DIAG INJ IV PUSH (06/23/18) THER/PROPH/DIAG INJ SC/IM (01/11/16) THER/PROPH/DIAG IV INF INIT (05/20/18) TX GASTRO INTUB W/ASP (05/02/18) TX/PRO/DX INJ NEW DRUG ADDON (06/23/18) TX/PROPH/DG ADDL SEQ IV INF (05/20/18) URINALYSIS AUTO W/SCOPE (06/29/18) URINE CULTURE/COLONY COUNT (05/02/18) VENT MGMT INPAT INIT DAY (05/02/18) WITHDRAWAL OF ARTERIAL BLOOD (05/02/18) X-RAY EXAM CHEST 1 VIEW (06/23/18) X-RAY EXAM CHEST 2 VIEWS (06/29/18) X-RAY EXAM OF ANKLE (01/11/16) X-RAY EXAM OF FOOT (12/05/15) X-RAY EXAM OF PELVIS (01/11/16) (1) Positive blood culture SNOMED Code(s): 897298646 Code(s): R78.81 - BACTEREMIA Current Visit: Yes (2) Cellulitis SNOMED Code(s): 127378402 Code(s): L03.90 - CELLULITIS, UNSPECIFIED Current Visit: Yes Problem List Initiated/Reviewed/Updated: Yes Plan: The patient has no signs of an intra-abdominal process. I reviewed the images myself and the appendix appears normal with little to no stranding. I would continue cares per medicine team. If he develops abdominal pain please contact me. Would start an aggressive bowel regiment given his constipation. Call with any concerns.
[2018-07-06] MEDS: traZODone 50 MG Tab PO SCH (20:58)
[2018-07-06] MEDS: Mirtazapine 15 MG Tab.DIS PO SCH (20:58)
[2018-07-07] MEDS: Piperacillin/Tazobactam 3.375 GM in Sodium Chloride 0.9% 50 ML IV SCH ×4 (02:33→21:00)
[2018-07-07] MEDS: Phosphorus #1 250 MG Tab PO SCH ×4 (05:22→23:35)
[2018-07-07] MEDS: Morphine 15 MG Tab PO PRN ×2 (05:23→12:19)
[2018-07-07] MEDS: Pantoprazole 40 MG Tab.CR PO SCH (06:30)
[2018-07-07] MEDS: DULoxetine 60 MG Cap PO SCH (08:46)
[2018-07-07] MEDS: Metoprolol Tartrate 50 MG Tab PO SCH ×2 (08:46→21:02)
[2018-07-07] MEDS: Midodrine 5 MG Tab PO SCH ×2 (08:46→21:03)
[2018-07-07] MEDS: Topiramate 50 MG Tab PO SCH ×2 (08:46→21:02)
[2018-07-07] MEDS: predniSONE 20 MG Tab PO SCH (08:47)
[2018-07-07] MEDS: Apixaban 5 MG Tab PO SCH ×2 (08:47→21:01)
[2018-07-07] MEDS: Diltiazem 120 MG Cap.CD PO SCH (08:47)
[2018-07-07] MEDS: Gabapentin 300 MG Cap PO SCH ×2 (08:47→21:00)
[2018-07-07] MEDS: Tiotropium Bromide [Spiriva Respimat] 2 PUFF INH SCH (10:57)
[2018-07-07] MEDS ORDERED: HYDROmorphone 1 MG/ML Syringe IV SCH (11:15)
--- NOTE | 2018-07-07 19:21 | PCM.PN ---
- General Info Date of Service: 07/07/18 Subjective Update: Stable - Patient Data Vitals - Most Recent: Last Vital Signs Temp 36.6 C 07/07/18 12:00 Pulse 95 07/07/18 12:00 Resp 16 07/07/18 12:00 BP 104/57 L 07/07/18 12:00 Pulse Ox 92 L 07/07/18 12:00 Weight - Most Recent: 65.771 kg I&O - Last 24 Hours: Intake & Output 07/07/18 07/07/18 07/07/18 06:59 14:59 22:59 Intake Total 850 1040 Balance 850 1040 Lab Results Last 24 Hours: Laboratory Results - last 24 hr 07/07/18 07/07/18 07/07/18 Range/Units 08:44 09:10 09:10 WBC 5.82 (4.0-11.0) K/uL RBC 4.00 L (4.50-5.90) M/uL Hgb 11.0 L (13.0-17.0) g/dL Hct 35.9 L (38.0-50.0) % MCV 89.8 (80.0-98.0) fL MCH 27.5 (27.0-32.0) pg MCHC 30.6 L (31.0-37.0) g/dL RDW Std Deviation 68.4 H (28.0-62.0) fl RDW Coeff of Tre 21 H (11.0-15.0) % Plt Count 104 L (150-400) K/uL MPV 11.50 (7.40-12.00) fL Add Manual Diff YES Neutrophils % (Manual) 65 (48.0-80.0) % Band Neutrophils % 25 % Lymphocytes % (Manual) 7 L (16.0-40.0) % Monocytes % (Manual) 3 (0.0-15.0) % Nucleated RBC % 0.0 /100WBC Absolute Seg Neuts 3.8 (1.4-5.7) Band Neutrophils # 1.5 Lymphocytes # (Manual) 0.4 L (0.6-2.4) Monocytes # (Manual) 0.2 (0.0-0.8) Nucleated RBCs # 0 K/uL Anisocytosis 1+ SLIGHT Sodium 140 (136-148) mmol/L Potassium 3.9 (3.5-5.1) mmol/L Chloride 104 (98-107) mmol/L Carbon Dioxide 27.1 (21.0-32.0) mmol/L BUN 28 H (7.0-18.0) mg/dL Creatinine 1.5 H (0.8-1.3) mg/dL Est Cr Clr Drug Dosing 44.95 mL/min Estimated GFR (MDRD) 48.1 ml/min Glucose 89 (74-106) mg/dL Calcium 7.5 L (8.5-10.1) mg/dL Phosphorus 3.7 (2.6-4.7) mg/dL Magnesium 1.7 L (1.8-2.4) mg/dL Total Bilirubin 0.7 (0.2-1.0) mg/dL AST 40 H (15-37) IU/L ALT 86 H (14-63) IU/L Alkaline Phosphatase 81 (46-116) U/L Total Protein 5.4 L (6.4-8.2) g/dL Albumin 1.2 L (3.4-5.0) g/dL Globulin 4.2 H (2.6-4.0) g/dL Albumin/Globulin Ratio 0.3 L (0.9-1.6) Prostate Specific Ag 2.16 (0.05-4.00) ng/mL Steve Results Last 24 Hours: Microbiology 07/03/18 11:28 Aerobic Blood Culture - Final Blood - Venous Escherichia Coli Anaerobic Blood Culture - Preliminary NO GROWTH AFTER 4 DAYS 07/07/18 10:58 Anaerobic Blood Culture - Final Blood - Venous 07/07/18 11:10 Anaerobic Blood Culture - Final Blood - Venous - Lab Draw 07/05/18 09:15 Aerobic Blood Culture - Final Blood - Venous - Lab Draw Anaerobic Blood Culture - Preliminary NO GROWTH AFTER 2 DAYS 07/05/18 09:29 Aerobic Blood Culture - Final Blood - Venous Escherichia Coli Anaerobic Blood Culture - Preliminary NO GROWTH AFTER 2 DAYS Med Orders - Current: Current Medications Acetaminophen (Tylenol) 650 mg PO Q4H PRN PRN Reason: Pain (Mild 1-3)/fever Last Admin: 07/04/18 23:52 Dose: 650 mg Albuterol (Proventil Neb Soln) 2.5 mg NEB Q4H PRN PRN Reason: Shortness of Breath Last Admin: 07/04/18 23:26 Dose: 2.5 mg Apixaban (Eliquis) 5 mg PO BID [facility] Last Admin: 07/07/18 08:47 Dose: 5 mg Diltiazem HCl (Cardizem Cd) 240 mg PO DAILY [facility] Last Admin: 07/07/18 08:47 Dose: 240 mg Docusate Sodium (Colace) 100 mg PO TID PRN PRN Reason: Constipation Last Admin: 07/05/18 20:26 Dose: 100 mg Duloxetine HCl (Cymbalta) 60 mg PO DAILY [facility] Last Admin: 07/07/18 08:46 Dose: 60 mg Gabapentin (Neurontin) 1,200 mg PO BID [facility] Last Admin: 07/07/18 08:47 Dose: 1,200 mg Hydromorphone HCl (Dilaudid) 1 mg IV Q2H PRN PRN Reason: Pain Piperacillin Sod/Tazobactam (Sod 3.375 gm/ Sodium Chloride) 50 mls @ 100 mls/ hr IV Q6H [facility] Last Admin: 07/07/18 15:51 Dose: 100 mls/hr Vancomycin HCl 1 gm/ Sodium (Chloride) 250 mls @ 166 mls/hr IV Q24H [facility] Last Admin: 07/06/18 23:06 Dose: 166 mls/hr Metoprolol Tartrate (Lopressor) 50 mg PO BID [facility] Last Admin: 07/07/18 08:46 Dose: 50 mg Midodrine (Midodrine) 2.5 mg PO BID [facility] Last Admin: 07/07/18 08:46 Dose: 2.5 mg Mirtazapine (Remeron) 15 mg PO BEDTIME [facility] Last Admin: 07/06/18 20:58 Dose: 15 mg Morphine Sulfate (Morphine) 15 mg PO Q6H PRN PRN Reason: Pain Last Admin: 07/07/18 12:19 Dose: 15 mg Ondansetron HCl (Zofran) 4 mg IVPUSH Q4H PRN PRN Reason: Nausea Pantoprazole Sodium (Protonix) 40 mg PO ACBREAKFAST [facility] Last Admin: 07/07/18 06:30 Dose: 40 mg Tiotropium [place] [ Spiriva Respimat] 2 Puff 2 each INH DAILY [facility] Last Admin: 07/07/18 10:57 Dose: Not Given Prednisone (Prednisone) 20 mg PO DAILY [facility] Last Admin: 07/07/18 08:47 Dose: 20 mg Sodium Phosphate (Neutra-Phos) 250 mg PO QID [facility] Last Admin: 07/07/18 12:19 Dose: 250 mg Topiramate (Topamax) 25 mg PO BID [facility] Last Admin: 07/07/18 08:46 Dose: 25 mg Trazodone HCl (Trazodone) 50 mg PO BEDTIME [facility] Last Admin: 07/06/18 20:58 Dose: 50 mg Discontinued Medications Gabapentin (Neurontin) 600 mg PO BID [facility] Last Admin: 07/03/18 20:56 Dose: 600 mg Hydromorphone HCl (Dilaudid) 1 mg IVPUSH ONETIME ONE Stop: 07/02/18 22:39 Last Admin: 07/02/18 22:56 Dose: 1 mg Hydromorphone HCl (Dilaudid) 0.5 mg IVPUSH Q2H PRN PRN Reason: Pain (severe 7-10) Last Admin: 07/04/18 07:59 Dose: 0.5 mg Hydromorphone HCl (Dilaudid) 1 mg IVPUSH Q2H PRN PRN Reason: Pain (severe 7-10) Last Admin: 07/05/18 11:32 Dose: 1 mg Hydromorphone HCl (Dilaudid) 1 mg IV Q2H [facility] Last Admin: 07/07/18 13:17 Dose: Not Given Piperacillin Sod/Tazobactam (Sod 3.375 gm/ Sodium Chloride) 50 mls @ 100 mls/ hr IV ONETIME ONE Stop: 07/02/18 21:36 Last Admin: 07/02/18 21:23 Dose: 100 mls/hr Sodium Chloride (Normal Saline) 1,000 mls @ 999 mls/hr IV STAT ONE Stop: 07/02/18 22:08 Last Admin: 07/02/18 21:22 Dose: 999 mls/hr Vancomycin HCl 1 gm/ Sodium (Chloride) 250 mls @ 166 mls/hr IV ONETIME ONE Stop: 07/03/18 00:15 Last Admin: 07/02/18 22:58 Dose: 166 mls/hr Sodium Chloride (Normal Saline) 1,000 mls @ 100 mls/hr IV ASDIRECTED [facility] Vancomycin HCl 1 gm/ Sodium (Chloride) 250 mls @ 166 mls/hr IV Q12H [facility] Last Admin: 07/04/18 11:01 Dose: Not Given Vancomycin HCl 0.75 gm/ Sodium (Chloride) 250 mls @ 166.667 mls/hr IV Q12H [facility] Last Admin: 07/05/18 23:32 Dose: 166.667 mls/hr Metoprolol Tartrate (Lopressor) Confirm Administered Dose 50 mg .ROUTE .STK-MED ONE Stop: 07/03/18 06:39 Last Admin: 07/03/18 06:43 Dose: Not Given Morphine Sulfate (Morphine Sulfate) 4 mg IV Q4H [facility] Last Admin: 07/05/18 15:23 Dose: Not Given Morphine Sulfate (Morphine Sulfate) 4 mg IV Q4H PRN PRN Reason: Pain Last Admin: 07/07/18 08:45 Dose: 4 mg Pantoprazole Sodium (Protonix) Confirm Administered Dose 40 mg .ROUTE .STK- MED ONE Stop: 07/03/18 05:29 Last Admin: 07/03/18 05:36 Dose: Not Given Vancomycin HCl (Pharmacy To Dose - Vancomycin) 1 dose .XX ASDIRECTED [facility] - Exam General: Alert, Oriented, Cooperative, Mild Distress Lungs: Normal Respiratory Effort Cardiovascular: Regular Rate, Regular Rhythm Extremities: Redness - Problem List Review Problem List Initiated/Reviewed/Updated: Yes - My Orders Last 24 Hours: My Active Orders 07/06/18 19:30 Consult to Physician [CONS] Routine 07/07/18 10:45 Blood Culture x2 Reflex Set [OM.PC] Stat 07/07/18 10:58 CULTURE BLOOD [BC] Stat 07/07/18 11:10 CULTURE BLOOD [BC] Stat 07/07/18 11:11 May Shower [RC] ASDIRECTED 07/07/18 12:17 HYDROmorphone [Dilaudid] 1 mg IV Q2H PRN 07/07/18 19:00 Echo 2D wo Cont [US] Routine Venous Doppler Lwr Ext Bi [US] Routine Venous Doppler Upr Ext Bi [US] Routine - Plan Plan:: 58 yo male admitted for cellulitis of left foot and right hand. -Patient's first set of blood cultures are growing Escherichia coli which was sensitive to Zosyn. Continue with Zosyn shall discontinue vancomycin. I had a extensive discussion with infectious disease in [place] they are recommending that we do an echo as well as venous Doppler to assess for infectious thrombophlebitis as a possible source of infection and feeding. After discussion with ID patient's fourth blood culture result came back and I made the patient had cleared his gram-negative infection and is no longer bacteremic. Shall still do the suggested studies; ID also suggested that the hardware of his left hip may be his source as well for septic arthritis and should possibly consider joint aspiration despite the CT results.
[2018-07-07] MEDS: traZODone 50 MG Tab PO SCH (21:00)
[2018-07-07] MEDS: Mirtazapine 15 MG Tab.DIS PO SCH (21:01)
[2018-07-08] MEDS: Piperacillin/Tazobactam 3.375 GM in Sodium Chloride 0.9% 50 ML IV SCH ×4 (02:34→20:09)
[2018-07-08] MEDS: HYDROmorphone 1 MG/ML Syringe IV PRN ×5 (04:30→19:55)
[2018-07-08] MEDS: Phosphorus #1 250 MG Tab PO SCH ×4 (06:24→23:34)
[2018-07-08] MEDS: Pantoprazole 40 MG Tab.CR PO SCH (06:35)
[2018-07-08] MEDS: Topiramate 50 MG Tab PO SCH ×2 (10:03→20:05)
[2018-07-08] MEDS: Gabapentin 300 MG Cap PO SCH ×2 (10:04→20:06)
[2018-07-08] MEDS: Midodrine 5 MG Tab PO SCH ×2 (10:04→20:05)
[2018-07-08] MEDS: Diltiazem 120 MG Cap.CD PO SCH (10:05)
[2018-07-08] MEDS: predniSONE 20 MG Tab PO SCH (10:06)
[2018-07-08] MEDS: Metoprolol Tartrate 50 MG Tab PO SCH ×2 (10:06→20:06)
[2018-07-08] MEDS: DULoxetine 60 MG Cap PO SCH (10:06)
[2018-07-08] MEDS: Apixaban 5 MG Tab PO SCH ×2 (10:07→20:04)
[2018-07-08] MEDS: Tiotropium Bromide [Spiriva Respimat] 2 PUFF INH SCH (10:08)
[2018-07-08] MEDS: Morphine 15 MG Tab PO PRN ×2 (11:35→18:05)
--- NOTE | 2018-07-08 12:36 | PCM.PN ---
- General Info Date of Service: 07/08/18 Subjective Update: stable, having a couple of loose bowel movements for the past couple of days. - Patient Data Vitals - Most Recent: Last Vital Signs Temp 35.8 C 07/08/18 11:47 Pulse 87 07/08/18 11:47 Resp 20 07/08/18 11:47 BP 105/58 L 07/08/18 11:47 Pulse Ox 97 07/08/18 11:47 Weight - Most Recent: 65.771 kg I&O - Last 24 Hours: Intake & Output 07/07/18 07/08/18 07/08/18 22:59 06:59 14:59 Intake Total 1040 240 Balance 1040 240 Lab Results Last 24 Hours: Laboratory Results - last 24 hr 07/08/18 07/08/18 07/08/18 Range/Units 06:21 06:21 10:39 WBC 6.53 (4.0-11.0) K/uL RBC 3.98 L (4.50-5.90) M/uL Hgb 10.5 L (13.0-17.0) g/dL Hct 35.6 L (38.0-50.0) % MCV 89.4 (80.0-98.0) fL MCH 26.4 L (27.0-32.0) pg MCHC 29.5 L (31.0-37.0) g/dL RDW Std Deviation 68.4 H (28.0-62.0) fl RDW Coeff of Tre 21 H (11.0-15.0) % Plt Count 154 (150-400) K/uL MPV 11.70 (7.40-12.00) fL Neut % (Auto) 85.4 H (48.0-80.0) % Lymph % (Auto) 10.1 L (16.0-40.0) % Andrew % (Auto) 3.8 (0.0-15.0) % Eos % (Auto) 0.5 (0.0-7.0) % Baso % (Auto) 0.2 (0.0-1.5) % Neut # (Auto) 5.6 (1.4-5.7) K/uL Lymph # (Auto) 0.7 (0.6-2.4) K/uL Andrew # (Auto) 0.3 (0.0-0.8) K/uL Eos # (Auto) 0.0 (0.0-0.7) K/uL Baso # (Auto) 0.0 (0.0-0.1) K/uL Nucleated RBC % 0.2 /100WBC Nucleated RBCs # 0 K/uL Sodium 141 (136-148) mmol/L Potassium 3.7 (3.5-5.1) mmol/L Chloride 106 (98-107) mmol/L Carbon Dioxide 29.0 (21.0-32.0) mmol/L BUN 34 H (7.0-18.0) mg/dL Creatinine 1.5 H (0.8-1.3) mg/dL Est Cr Clr Drug Dosing 44.95 mL/min Estimated GFR (MDRD) 48.1 ml/min Glucose 88 (74-106) mg/dL Calcium 7.4 L (8.5-10.1) mg/dL Total Bilirubin 0.5 (0.2-1.0) mg/dL AST 31 (15-37) IU/L ALT 63 (14-63) IU/L Alkaline Phosphatase 61 (46-116) U/L Total Protein 5.0 L (6.4-8.2) g/dL Albumin 1.1 L (3.4-5.0) g/dL Globulin 3.9 (2.6-4.0) g/dL Albumin/Globulin Ratio 0.3 L (0.9-1.6) Vancomycin Trough 10.3 H (5.0-10.0) ug/mL Steve Results Last 24 Hours: Microbiology 07/03/18 11:28 Aerobic Blood Culture - Final Blood - Venous Escherichia Coli Anaerobic Blood Culture - Final NO GROWTH AFTER 5 DAYS 07/07/18 11:10 Aerobic Blood Culture - Preliminary Blood - Venous - Lab Draw NO GROWTH AFTER 1 DAY Anaerobic Blood Culture - Final 07/07/18 10:58 Aerobic Blood Culture - Preliminary Blood - Venous NO GROWTH AFTER 1 DAY Anaerobic Blood Culture - Final 07/05/18 09:15 Aerobic Blood Culture - Final Blood - Venous - Lab Draw Anaerobic Blood Culture - Preliminary NO GROWTH AFTER 3 DAYS 07/05/18 09:29 Aerobic Blood Culture - Final Blood - Venous Escherichia Coli Anaerobic Blood Culture - Preliminary NO GROWTH AFTER 3 DAYS Med Orders - Current: Current Medications Acetaminophen (Tylenol) 650 mg PO Q4H PRN PRN Reason: Pain (Mild 1-3)/fever Last Admin: 07/04/18 23:52 Dose: 650 mg Albuterol (Proventil Neb Soln) 2.5 mg NEB Q4H PRN PRN Reason: Shortness of Breath Last Admin: 07/04/18 23:26 Dose: 2.5 mg Apixaban (Eliquis) 5 mg PO BID [facility] Last Admin: 07/08/18 10:07 Dose: 5 mg Diltiazem HCl (Cardizem Cd) 240 mg PO DAILY [facility] Last Admin: 07/08/18 10:05 Dose: 240 mg Docusate Sodium (Colace) 100 mg PO TID PRN PRN Reason: Constipation Last Admin: 07/05/18 20:26 Dose: 100 mg Duloxetine HCl (Cymbalta) 60 mg PO DAILY [facility] Last Admin: 07/08/18 10:06 Dose: 60 mg Gabapentin (Neurontin) 1,200 mg PO BID [facility] Last Admin: 07/08/18 10:04 Dose: 1,200 mg Hydromorphone HCl (Dilaudid) 1 mg IV Q2H PRN PRN Reason: Pain Last Admin: 07/08/18 10:02 Dose: 1 mg Piperacillin Sod/Tazobactam (Sod 3.375 gm/ Sodium Chloride) 50 mls @ 100 mls/ hr IV Q6H [facility] Last Admin: 07/08/18 10:06 Dose: 100 mls/hr Metoprolol Tartrate (Lopressor) 50 mg PO BID [facility] Last Admin: 07/08/18 10:06 Dose: 50 mg Midodrine (Midodrine) 2.5 mg PO BID [facility] Last Admin: 07/08/18 10:04 Dose: 2.5 mg Mirtazapine (Remeron) 15 mg PO BEDTIME [facility] Last Admin: 07/07/18 21:01 Dose: 15 mg Morphine Sulfate (Morphine) 15 mg PO Q6H PRN PRN Reason: Pain Last Admin: 07/08/18 11:35 Dose: 15 mg Ondansetron HCl (Zofran) 4 mg IVPUSH Q4H PRN PRN Reason: Nausea Pantoprazole Sodium (Protonix) 40 mg PO ACBREAKFAST [facility] Last Admin: 07/08/18 06:35 Dose: 40 mg Tiotropium [place] [ Spiriva Respimat] 2 Puff 2 each INH DAILY [facility] Last Admin: 07/08/18 10:08 Dose: Not Given Prednisone (Prednisone) 20 mg PO DAILY [facility] Last Admin: 07/08/18 10:06 Dose: 20 mg Sodium Phosphate (Neutra-Phos) 250 mg PO QID [facility] Last Admin: 07/08/18 11:34 Dose: 250 mg Topiramate (Topamax) 25 mg PO BID [facility] Last Admin: 07/08/18 10:03 Dose: 25 mg Trazodone HCl (Trazodone) 50 mg PO BEDTIME [facility] Last Admin: 07/07/18 21:00 Dose: 50 mg Discontinued Medications Gabapentin (Neurontin) 600 mg PO BID [facility] Last Admin: 07/03/18 20:56 Dose: 600 mg Hydromorphone HCl (Dilaudid) 1 mg IVPUSH ONETIME ONE Stop: 07/02/18 22:39 Last Admin: 07/02/18 22:56 Dose: 1 mg Hydromorphone HCl (Dilaudid) 0.5 mg IVPUSH Q2H PRN PRN Reason: Pain (severe 7-10) Last Admin: 07/04/18 07:59 Dose: 0.5 mg Hydromorphone HCl (Dilaudid) 1 mg IVPUSH Q2H PRN PRN Reason: Pain (severe 7-10) Last Admin: 07/05/18 11:32 Dose: 1 mg Hydromorphone HCl (Dilaudid) 1 mg IV Q2H [facility] Last Admin: 07/07/18 13:17 Dose: Not Given Piperacillin Sod/Tazobactam (Sod 3.375 gm/ Sodium Chloride) 50 mls @ 100 mls/ hr IV ONETIME ONE Stop: 07/02/18 21:36 Last Admin: 07/02/18 21:23 Dose: 100 mls/hr Sodium Chloride (Normal Saline) 1,000 mls @ 999 mls/hr IV STAT ONE Stop: 07/02/18 22:08 Last Admin: 07/02/18 21:22 Dose: 999 mls/hr Vancomycin HCl 1 gm/ Sodium (Chloride) 250 mls @ 166 mls/hr IV ONETIME ONE Stop: 07/03/18 00:15 Last Admin: 07/02/18 22:58 Dose: 166 mls/hr Sodium Chloride (Normal Saline) 1,000 mls @ 100 mls/hr IV ASDIRECTED [facility] Vancomycin HCl 1 gm/ Sodium (Chloride) 250 mls @ 166 mls/hr IV Q12H [facility] Last Admin: 07/04/18 11:01 Dose: Not Given Vancomycin HCl 0.75 gm/ Sodium (Chloride) 250 mls @ 166.667 mls/hr IV Q12H [facility] Last Admin: 07/05/18 23:32 Dose: 166.667 mls/hr Vancomycin HCl 1 gm/ Sodium (Chloride) 250 mls @ 166 mls/hr IV Q24H [facility] Last Admin: 07/06/18 23:06 Dose: 166 mls/hr Metoprolol Tartrate (Lopressor) Confirm Administered Dose 50 mg .ROUTE .STK-MED ONE Stop: 07/03/18 06:39 Last Admin: 07/03/18 06:43 Dose: Not Given Morphine Sulfate (Morphine Sulfate) 4 mg IV Q4H [facility] Last Admin: 07/05/18 15:23 Dose: Not Given Morphine Sulfate (Morphine Sulfate) 4 mg IV Q4H PRN PRN Reason: Pain Last Admin: 07/07/18 08:45 Dose: 4 mg Pantoprazole Sodium (Protonix) Confirm Administered Dose 40 mg .ROUTE .STK- MED ONE Stop: 07/03/18 05:29 Last Admin: 07/03/18 05:36 Dose: Not Given Vancomycin HCl (Pharmacy To Dose - Vancomycin) 1 dose .XX ASDIRECTED [facility] - Exam General: Alert, Oriented, Cooperative Lungs: Clear to Auscultation, Normal Respiratory Effort Cardiovascular: Regular Rate Extremities: Other (Right upper extremity and left lower extremity appear to be healing well secondary to the cellulitic infection.) - Problem List Review Problem List Initiated/Reviewed/Updated: Yes - My Orders Last 24 Hours: My Active Orders 07/07/18 12:17 HYDROmorphone [Dilaudid] 1 mg IV Q2H PRN 07/07/18 19:00 Echo 2D wo Cont [US] Routine Venous Doppler Lwr Ext Bi [US] Routine Venous Doppler Upr Ext Bi [US] Routine - Plan Plan:: 58 yo male admitted for cellulitis of left foot and right hand. -Patient's first set of blood cultures are growing Escherichia coli which was sensitive to Zosyn. Continue with Zosyn shall discontinue vancomycin. I had a extensive discussion with infectious disease in [place] they are recommending that we do an echo as well as venous Doppler to assess for infectious thrombophlebitis as a possible source of infection and feeding. After discussion with ID patient's fourth blood culture result came back and I made the patient had cleared his gram-negative infection and is no longer bacteremic. Shall still do the suggested studies; ID also suggested that the hardware of his left hip may be his source as well for septic arthritis and should possibly consider joint aspiration despite the CT results. -Awaiting for the patient to get his echo and Doppler imaging as orders have been placed. -For the patient's loose stools shall get stool studies to ensure no signs of C. difficile infection.
[2018-07-08] MEDS: traZODone 50 MG Tab PO SCH (20:04)
[2018-07-08] MEDS: Mirtazapine 15 MG Tab.DIS PO SCH (20:04)
[2018-07-09] MEDS: Piperacillin/Tazobactam 3.375 GM in Sodium Chloride 0.9% 50 ML IV SCH ×4 (04:02→20:22)
[2018-07-09] MEDS: Pantoprazole 40 MG Tab.CR PO SCH (06:41)
[2018-07-09] MEDS: Phosphorus #1 250 MG Tab PO SCH (06:41)
[2018-07-09] MEDS: Morphine 15 MG Tab PO PRN ×2 (06:42→12:14)
--- NOTE | 2018-07-09 09:29 | PCM.PN ---
- General Info Date of Service: 07/09/18 - Review of Systems Systems Review Comment:: reports diarrhea, no fevers, no swelling of hands or feet - Patient Data Vitals - Most Recent: Last Vital Signs Temp 36.5 C 07/09/18 07:59 Pulse 74 07/09/18 07:59 Resp 18 07/09/18 07:59 BP 124/59 L 07/09/18 07:59 Pulse Ox 94 L 07/09/18 07:59 Weight - Most Recent: 65.771 kg I&O - Last 24 Hours: Intake & Output 07/08/18 07/09/18 07/09/18 22:59 06:59 14:59 Intake Total 920 450 Output Total 225 Balance 695 450 Lab Results Last 24 Hours: Laboratory Results - last 24 hr 07/08/18 07/08/18 07/09/18 Range/Units 10:39 10:39 05:50 WBC 7.18 (4.0-11.0) K/uL RBC 3.73 L (4.50-5.90) M/uL Hgb 10.1 L (13.0-17.0) g/dL Hct 33.1 L (38.0-50.0) % MCV 88.7 (80.0-98.0) fL MCH 27.1 (27.0-32.0) pg MCHC 30.5 L (31.0-37.0) g/dL RDW Std Deviation 66.9 H (28.0-62.0) fl RDW Coeff of Tre 21 H (11.0-15.0) % Plt Count 198 (150-400) K/uL MPV 10.80 (7.40-12.00) fL Add Manual Diff YES Neutrophils % (Manual) 77 (48.0-80.0) % Band Neutrophils % 4 % Lymphocytes % (Manual) 15 L (16.0-40.0) % Monocytes % (Manual) 4 (0.0-15.0) % Nucleated RBC % 0.0 /100WBC Absolute Seg Neuts 5.5 (1.4-5.7) Band Neutrophils # 0.3 Lymphocytes # (Manual) 1.1 (0.6-2.4) Monocytes # (Manual) 0.3 (0.0-0.8) Nucleated RBCs # 0 K/uL Sodium (136-148) mmol/L Potassium (3.5-5.1) mmol/L Chloride (98-107) mmol/L Carbon Dioxide (21.0-32.0) mmol/L BUN (7.0-18.0) mg/dL Creatinine (0.8-1.3) mg/dL Est Cr Clr Drug Dosing mL/min Estimated GFR (MDRD) ml/min Glucose (74-106) mg/dL Calcium (8.5-10.1) mg/dL Phosphorus 4.5 (2.6-4.7) mg/dL Magnesium 2.1 (1.8-2.4) mg/dL Vancomycin Trough 10.3 H (5.0-10.0) ug/mL 07/09/18 Range/Units 05:50 WBC (4.0-11.0) K/uL RBC (4.50-5.90) M/uL Hgb (13.0-17.0) g/dL Hct (38.0-50.0) % MCV (80.0-98.0) fL MCH (27.0-32.0) pg MCHC (31.0-37.0) g/dL RDW Std Deviation (28.0-62.0) fl RDW Coeff of Tre (11.0-15.0) % Plt Count (150-400) K/uL MPV (7.40-12.00) fL Add Manual Diff Neutrophils % (Manual) (48.0-80.0) % Band Neutrophils % % Lymphocytes % (Manual) (16.0-40.0) % Monocytes % (Manual) (0.0-15.0) % Nucleated RBC % /100WBC Absolute Seg Neuts (1.4-5.7) Band Neutrophils # Lymphocytes # (Manual) (0.6-2.4) Monocytes # (Manual) (0.0-0.8) Nucleated RBCs # K/uL Sodium 140 (136-148) mmol/L Potassium 3.7 (3.5-5.1) mmol/L Chloride 105 (98-107) mmol/L Carbon Dioxide 28.0 (21.0-32.0) mmol/L BUN 41 H (7.0-18.0) mg/dL Creatinine 1.7 H (0.8-1.3) mg/dL Est Cr Clr Drug Dosing 39.66 mL/min Estimated GFR (MDRD) 41.6 ml/min Glucose 100 (74-106) mg/dL Calcium 7.9 L (8.5-10.1) mg/dL Phosphorus (2.6-4.7) mg/dL Magnesium (1.8-2.4) mg/dL Vancomycin Trough (5.0-10.0) ug/mL Steve Results Last 24 Hours: Microbiology 07/08/18 11:30 Clostridium difficile Toxin A & B - Final Stool / Feces Positive C. Diff Antigen Positive C. Diff Toxin 07/03/18 11:28 Aerobic Blood Culture - Final Blood - Venous Escherichia Coli Anaerobic Blood Culture - Final NO GROWTH AFTER 5 DAYS 07/07/18 11:10 Aerobic Blood Culture - Preliminary Blood - Venous - Lab Draw NO GROWTH AFTER 1 DAY Anaerobic Blood Culture - Final 07/07/18 10:58 Aerobic Blood Culture - Preliminary Blood - Venous NO GROWTH AFTER 1 DAY Anaerobic Blood Culture - Final 07/05/18 09:15 Aerobic Blood Culture - Final Blood - Venous - Lab Draw Anaerobic Blood Culture - Preliminary NO GROWTH AFTER 3 DAYS 07/05/18 09:29 Aerobic Blood Culture - Final Blood - Venous Escherichia Coli Anaerobic Blood Culture - Preliminary NO GROWTH AFTER 3 DAYS Med Orders - Current: Current Medications Acetaminophen (Tylenol) 650 mg PO Q4H PRN PRN Reason: Pain (Mild 1-3)/fever Last Admin: 07/04/18 23:52 Dose: 650 mg Albuterol (Proventil Neb Soln) 2.5 mg NEB Q4H PRN PRN Reason: Shortness of Breath Last Admin: 07/04/18 23:26 Dose: 2.5 mg Apixaban (Eliquis) 5 mg PO BID [facility] Last Admin: 07/08/18 20:04 Dose: 5 mg Diltiazem HCl (Cardizem Cd) 240 mg PO DAILY [facility] Last Admin: 07/08/18 10:05 Dose: 240 mg Docusate Sodium (Colace) 100 mg PO TID PRN PRN Reason: Constipation Last Admin: 07/05/18 20:26 Dose: 100 mg Duloxetine HCl (Cymbalta) 60 mg PO DAILY [facility] Last Admin: 07/08/18 10:06 Dose: 60 mg Gabapentin (Neurontin) 1,200 mg PO BID [facility] Last Admin: 07/08/18 20:06 Dose: 1,200 mg Hydromorphone HCl (Dilaudid) 1 mg IV Q2H PRN PRN Reason: Pain Last Admin: 07/08/18 19:55 Dose: 1 mg Piperacillin Sod/Tazobactam (Sod 3.375 gm/ Sodium Chloride) 50 mls @ 100 mls/ hr IV Q6H [facility] Last Admin: 07/09/18 04:02 Dose: 100 mls/hr Metoprolol Tartrate (Lopressor) 50 mg PO BID [facility] Last Admin: 07/08/18 20:06 Dose: Not Given Midodrine (Midodrine) 2.5 mg PO BID [facility] Last Admin: 07/08/18 20:05 Dose: 2.5 mg Mirtazapine (Remeron) 15 mg PO BEDTIME [facility] Last Admin: 07/08/18 20:04 Dose: 15 mg Morphine Sulfate (Morphine) 15 mg PO Q6H PRN PRN Reason: Pain Last Admin: 07/09/18 06:42 Dose: 15 mg Ondansetron HCl (Zofran) 4 mg IVPUSH Q4H PRN PRN Reason: Nausea Pantoprazole Sodium (Protonix) 40 mg PO ACBREAKFAST [facility] Last Admin: 07/09/18 06:41 Dose: 40 mg Tiotropium [place] [ Spiriva Respimat] 2 Puff 2 each INH DAILY [facility] Last Admin: 07/08/18 10:08 Dose: Not Given Prednisone (Prednisone) 20 mg PO DAILY [facility] Last Admin: 07/08/18 10:06 Dose: 20 mg Topiramate (Topamax) 25 mg PO BID [facility] Last Admin: 07/08/18 20:05 Dose: 25 mg Trazodone HCl (Trazodone) 50 mg PO BEDTIME [facility] Last Admin: 07/08/18 20:04 Dose: 50 mg Discontinued Medications Gabapentin (Neurontin) 600 mg PO BID [facility] Last Admin: 07/03/18 20:56 Dose: 600 mg Hydromorphone HCl (Dilaudid) 1 mg IVPUSH ONETIME ONE Stop: 07/02/18 22:39 Last Admin: 07/02/18 22:56 Dose: 1 mg Hydromorphone HCl (Dilaudid) 0.5 mg IVPUSH Q2H PRN PRN Reason: Pain (severe 7-10) Last Admin: 07/04/18 07:59 Dose: 0.5 mg Hydromorphone HCl (Dilaudid) 1 mg IVPUSH Q2H PRN PRN Reason: Pain (severe 7-10) Last Admin: 07/05/18 11:32 Dose: 1 mg Hydromorphone HCl (Dilaudid) 1 mg IV Q2H [facility] Last Admin: 07/07/18 13:17 Dose: Not Given Piperacillin Sod/Tazobactam (Sod 3.375 gm/ Sodium Chloride) 50 mls @ 100 mls/ hr IV ONETIME ONE Stop: 07/02/18 21:36 Last Admin: 07/02/18 21:23 Dose: 100 mls/hr Sodium Chloride (Normal Saline) 1,000 mls @ 999 mls/hr IV STAT ONE Stop: 07/02/18 22:08 Last Admin: 07/02/18 21:22 Dose: 999 mls/hr Vancomycin HCl 1 gm/ Sodium (Chloride) 250 mls @ 166 mls/hr IV ONETIME ONE Stop: 07/03/18 00:15 Last Admin: 07/02/18 22:58 Dose: 166 mls/hr Sodium Chloride (Normal Saline) 1,000 mls @ 100 mls/hr IV ASDIRECTED [facility] Vancomycin HCl 1 gm/ Sodium (Chloride) 250 mls @ 166 mls/hr IV Q12H [facility] Last Admin: 07/04/18 11:01 Dose: Not Given Vancomycin HCl 0.75 gm/ Sodium (Chloride) 250 mls @ 166.667 mls/hr IV Q12H [facility] Last Admin: 07/05/18 23:32 Dose: 166.667 mls/hr Vancomycin HCl 1 gm/ Sodium (Chloride) 250 mls @ 166 mls/hr IV Q24H [facility] Last Admin: 07/06/18 23:06 Dose: 166 mls/hr Metoprolol Tartrate (Lopressor) Confirm Administered Dose 50 mg .ROUTE .STK-MED ONE Stop: 07/03/18 06:39 Last Admin: 07/03/18 06:43 Dose: Not Given Morphine Sulfate (Morphine Sulfate) 4 mg IV Q4H [facility] Last Admin: 07/05/18 15:23 Dose: Not Given Morphine Sulfate (Morphine Sulfate) 4 mg IV Q4H PRN PRN Reason: Pain Last Admin: 07/07/18 08:45 Dose: 4 mg Pantoprazole Sodium (Protonix) Confirm Administered Dose 40 mg .ROUTE .STK- MED ONE Stop: 07/03/18 05:29 Last Admin: 07/03/18 05:36 Dose: Not Given Sodium Phosphate (Neutra-Phos) 250 mg PO QID [facility] Last Admin: 07/09/18 06:41 Dose: 250 mg Vancomycin HCl (Pharmacy To Dose - Vancomycin) 1 dose .XX ASDIRECTED [facility] - Exam General: Alert, Oriented Lungs: Clear to Auscultation, Normal Respiratory Effort Cardiovascular: Regular Rate, Regular Rhythm Extremities: Other (edema of right hand and left foot has greatly improved since admission) - Problem List Review Problem List Initiated/Reviewed/Updated: Yes - My Orders Last 24 Hours: My Active Orders 07/09/18 09:30 Vancomycin 0.125 gm PO Q6H 07/10/18 05:11 BASIC METABOLIC PANEL,BMP [CHEM] AM CBC WITH AUTO DIFF [HEME] AM - Plan Plan:: 58 yo male admitted for cellulitis of left foot and right hand. E.coli bacteremia: continue zosyn, dopplar and ultrasound still pending C.diff colitis: will start oral vancomycin.
[2018-07-09] MEDS: Gabapentin 300 MG Cap PO SCH ×2 (09:58→20:16)
[2018-07-09] MEDS: Metoprolol Tartrate 50 MG Tab PO SCH ×2 (09:58→20:14)
[2018-07-09] MEDS: Vancomycin 25 MG/ML Compounding Kit PO SCH ×3 (09:58→21:51)
[2018-07-09] MEDS: Topiramate 50 MG Tab PO SCH ×2 (09:59→20:13)
[2018-07-09] MEDS: Midodrine 5 MG Tab PO SCH ×2 (09:59→20:13)
[2018-07-09] MEDS: Apixaban 5 MG Tab PO SCH ×2 (10:00→20:15)
[2018-07-09] MEDS: predniSONE 20 MG Tab PO SCH (10:00)
[2018-07-09] MEDS: Diltiazem 120 MG Cap.CD PO SCH (10:00)
[2018-07-09] MEDS: DULoxetine 60 MG Cap PO SCH (10:00)
[2018-07-09] MEDS: Tiotropium Bromide [Spiriva Respimat] 2 PUFF INH SCH (10:01)
[2018-07-09] MEDS: HYDROmorphone 1 MG/ML Syringe IV PRN ×2 (11:08→18:42)
[2018-07-09] MEDS ORDERED: Potassium Chloride 20 MEQ Tab.ER PO ONE (15:20)
[2018-07-09] MEDS: traZODone 50 MG Tab PO SCH (20:15)
[2018-07-09] MEDS: Mirtazapine 15 MG Tab.DIS PO SCH (20:15)
[2018-07-10] MEDS: Vancomycin 25 MG/ML Compounding Kit PO SCH ×4 (03:13→21:08)
[2018-07-10] MEDS: HYDROmorphone 1 MG/ML Syringe IV PRN ×3 (03:14→16:07)
[2018-07-10] MEDS: Piperacillin/Tazobactam 3.375 GM in Sodium Chloride 0.9% 50 ML IV SCH ×4 (03:17→20:55)
[2018-07-10] MEDS: Pantoprazole 40 MG Tab.CR PO SCH (06:45)
[2018-07-10] MEDS: Metoprolol Tartrate 50 MG Tab PO SCH ×2 (09:21→20:56)
[2018-07-10] MEDS: Midodrine 5 MG Tab PO SCH ×2 (09:22→20:59)
[2018-07-10] MEDS: Gabapentin 300 MG Cap PO SCH ×2 (09:22→20:56)
[2018-07-10] MEDS: predniSONE 20 MG Tab PO SCH (09:23)
[2018-07-10] MEDS: Diltiazem 120 MG Cap.CD PO SCH (09:23)
[2018-07-10] MEDS: Apixaban 5 MG Tab PO SCH ×2 (09:23→20:59)
[2018-07-10] MEDS: Topiramate 50 MG Tab PO SCH ×2 (09:23→20:59)
[2018-07-10] MEDS: DULoxetine 60 MG Cap PO SCH (09:23)
[2018-07-10] MEDS: Tiotropium Bromide [Spiriva Respimat] 2 PUFF INH SCH (10:04)
[2018-07-10] MEDS: Morphine 15 MG Tab PO PRN (10:21)
--- NOTE | 2018-07-10 11:12 | PCM.PN ---
- General Info Date of Service: 07/10/18 - Review of Systems Systems Review Comment:: reports diarrhea, hands and feet swelling and erythema continue to improve. - Patient Data Vitals - Most Recent: Last Vital Signs Temp 37.2 C 07/10/18 07:30 Pulse 81 07/10/18 09:23 Resp 16 07/10/18 07:30 BP 116/66 07/10/18 09:23 Pulse Ox 94 L 07/10/18 07:30 Weight - Most Recent: 65.771 kg I&O - Last 24 Hours: Intake & Output 07/09/18 07/10/18 07/10/18 22:59 06:59 14:59 Intake Total 1200 600 50 Balance 1200 600 50 Lab Results Last 24 Hours: Laboratory Results - last 24 hr 07/09/18 07/10/18 07/10/18 Range/Units 15:51 06:22 06:22 WBC 6.08 (4.0-11.0) K/uL RBC 3.51 L (4.50-5.90) M/uL Hgb 9.4 L (13.0-17.0) g/dL Hct 31.5 L (38.0-50.0) % MCV 89.7 (80.0-98.0) fL MCH 26.8 L (27.0-32.0) pg MCHC 29.8 L (31.0-37.0) g/dL RDW Std Deviation 66.6 H (28.0-62.0) fl RDW Coeff of Tre 20 H (11.0-15.0) % Plt Count 257 (150-400) K/uL MPV 10.90 (7.40-12.00) fL Neut % (Auto) 77.4 (48.0-80.0) % Lymph % (Auto) 13.5 L (16.0-40.0) % [place] % (Auto) 8.6 (0.0-15.0) % Eos % (Auto) 0.3 (0.0-7.0) % Baso % (Auto) 0.2 (0.0-1.5) % Neut # (Auto) 4.7 (1.4-5.7) K/uL Lymph # (Auto) 0.8 (0.6-2.4) K/uL [place] # (Auto) 0.5 (0.0-0.8) K/uL Eos # (Auto) 0.0 (0.0-0.7) K/uL Baso # (Auto) 0.0 (0.0-0.1) K/uL Nucleated RBC % 0.0 /100WBC Nucleated RBCs # 0 K/uL Sodium 140 (136-148) mmol/L Potassium 3.9 (3.5-5.1) mmol/L Chloride 106 (98-107) mmol/L Carbon Dioxide 30.0 (21.0-32.0) mmol/L BUN 38 H (7.0-18.0) mg/dL Creatinine 1.7 H (0.8-1.3) mg/dL Est Cr Clr Drug Dosing 39.66 mL/min Estimated GFR (MDRD) 41.6 ml/min Glucose 95 (74-106) mg/dL Calcium 8.0 L (8.5-10.1) mg/dL Magnesium 2.1 (1.8-2.4) mg/dL Steve Results Last 24 Hours: Microbiology 07/05/18 09:15 Aerobic Blood Culture - Final Blood - Venous - Lab Draw Anaerobic Blood Culture - Final NO GROWTH AFTER 5 DAYS 07/05/18 09:29 Aerobic Blood Culture - Final Blood - Venous Escherichia Coli Anaerobic Blood Culture - Final NO GROWTH AFTER 5 DAYS 07/07/18 11:10 Aerobic Blood Culture - Preliminary Blood - Venous - Lab Draw NO GROWTH AFTER 2 DAYS Anaerobic Blood Culture - Final 07/07/18 10:58 Aerobic Blood Culture - Preliminary Blood - Venous NO GROWTH AFTER 2 DAYS Anaerobic Blood Culture - Final Med Orders - Current: Current Medications Acetaminophen (Tylenol) 650 mg PO Q4H PRN PRN Reason: Pain (Mild 1-3)/fever Last Admin: 07/04/18 23:52 Dose: 650 mg Albuterol (Proventil Neb Soln) 2.5 mg NEB Q4H PRN PRN Reason: Shortness of Breath Last Admin: 07/04/18 23:26 Dose: 2.5 mg Apixaban (Eliquis) 5 mg PO BID [facility] Last Admin: 07/10/18 09:23 Dose: 5 mg Diltiazem HCl (Cardizem Cd) 240 mg PO DAILY [facility] Last Admin: 07/10/18 09:23 Dose: 240 mg Docusate Sodium (Colace) 100 mg PO TID PRN PRN Reason: Constipation Last Admin: 07/05/18 20:26 Dose: 100 mg Duloxetine HCl (Cymbalta) 60 mg PO DAILY [facility] Last Admin: 07/10/18 09:23 Dose: 60 mg Gabapentin (Neurontin) 1,200 mg PO BID [facility] Last Admin: 07/10/18 09:22 Dose: 1,200 mg Hydromorphone HCl (Dilaudid) 1 mg IV Q2H PRN PRN Reason: Pain Last Admin: 07/10/18 08:18 Dose: 1 mg Piperacillin Sod/Tazobactam (Sod 3.375 gm/ Sodium Chloride) 50 mls @ 100 mls/ hr IV Q6H [facility] Last Admin: 07/10/18 08:25 Dose: 100 mls/hr Metoprolol Tartrate (Lopressor) 50 mg PO BID [facility] Last Admin: 07/10/18 09:21 Dose: 50 mg Midodrine (Midodrine) 2.5 mg PO BID [facility] Last Admin: 07/10/18 09:22 Dose: 2.5 mg Mirtazapine (Remeron) 15 mg PO BEDTIME [facility] Last Admin: 07/09/18 20:15 Dose: 15 mg Morphine Sulfate (Morphine) 15 mg PO Q6H PRN PRN Reason: Pain Last Admin: 07/10/18 10:21 Dose: 15 mg Ondansetron HCl (Zofran) 4 mg IVPUSH Q4H PRN PRN Reason: Nausea Pantoprazole Sodium (Protonix) 40 mg PO ACBREAKFAST [facility] Last Admin: 07/10/18 06:45 Dose: 40 mg Tiotropium [place] [ Spiriva Respimat] 2 Puff 2 each INH DAILY [facility] Last Admin: 07/10/18 10:04 Dose: Not Given Prednisone (Prednisone) 20 mg PO DAILY [facility] Last Admin: 07/10/18 09:23 Dose: 20 mg Topiramate (Topamax) 25 mg PO BID [facility] Last Admin: 07/10/18 09:23 Dose: 25 mg Trazodone HCl (Trazodone) 50 mg PO BEDTIME [facility] Last Admin: 07/09/18 20:15 Dose: 50 mg Vancomycin HCl (First-Vancomycin 25 Compounding Kit) 125 mg PO Q6H [facility] Last Admin: 07/10/18 09:29 Dose: 5 ml Discontinued Medications Gabapentin (Neurontin) 600 mg PO BID [facility] Last Admin: 07/03/18 20:56 Dose: 600 mg Hydromorphone HCl (Dilaudid) 1 mg IVPUSH ONETIME ONE Stop: 07/02/18 22:39 Last Admin: 07/02/18 22:56 Dose: 1 mg Hydromorphone HCl (Dilaudid) 0.5 mg IVPUSH Q2H PRN PRN Reason: Pain (severe 7-10) Last Admin: 07/04/18 07:59 Dose: 0.5 mg Hydromorphone HCl (Dilaudid) 1 mg IVPUSH Q2H PRN PRN Reason: Pain (severe 7-10) Last Admin: 07/05/18 11:32 Dose: 1 mg Hydromorphone HCl (Dilaudid) 1 mg IV Q2H [facility] Last Admin: 07/07/18 13:17 Dose: Not Given Piperacillin Sod/Tazobactam (Sod 3.375 gm/ Sodium Chloride) 50 mls @ 100 mls/ hr IV ONETIME ONE Stop: 07/02/18 21:36 Last Admin: 07/02/18 21:23 Dose: 100 mls/hr Sodium Chloride (Normal Saline) 1,000 mls @ 999 mls/hr IV STAT ONE Stop: 07/02/18 22:08 Last Admin: 07/02/18 21:22 Dose: 999 mls/hr Vancomycin HCl 1 gm/ Sodium (Chloride) 250 mls @ 166 mls/hr IV ONETIME ONE Stop: 07/03/18 00:15 Last Admin: 07/02/18 22:58 Dose: 166 mls/hr Sodium Chloride (Normal Saline) 1,000 mls @ 100 mls/hr IV ASDIRECTED [facility] Vancomycin HCl 1 gm/ Sodium (Chloride) 250 mls @ 166 mls/hr IV Q12H [facility] Last Admin: 07/04/18 11:01 Dose: Not Given Vancomycin HCl 0.75 gm/ Sodium (Chloride) 250 mls @ 166.667 mls/hr IV Q12H [facility] Last Admin: 07/05/18 23:32 Dose: 166.667 mls/hr Vancomycin HCl 1 gm/ Sodium (Chloride) 250 mls @ 166 mls/hr IV Q24H [facility] Last Admin: 07/06/18 23:06 Dose: 166 mls/hr Metoprolol Tartrate (Lopressor) Confirm Administered Dose 50 mg .ROUTE .STK-MED ONE Stop: 07/03/18 06:39 Last Admin: 07/03/18 06:43 Dose: Not Given Morphine Sulfate (Morphine Sulfate) 4 mg IV Q4H [facility] Last Admin: 07/05/18 15:23 Dose: Not Given Morphine Sulfate (Morphine Sulfate) 4 mg IV Q4H PRN PRN Reason: Pain Last Admin: 07/07/18 08:45 Dose: 4 mg Pantoprazole Sodium (Protonix) Confirm Administered Dose 40 mg .ROUTE .STK- MED ONE Stop: 07/03/18 05:29 Last Admin: 07/03/18 05:36 Dose: Not Given Potassium Chloride (Klor-Con M20) 40 meq PO ONETIME ONE Stop: 07/09/18 15:21 Last Admin: 07/09/18 15:42 Dose: 40 meq Sodium Phosphate (Neutra-Phos) 250 mg PO QID [facility] Last Admin: 07/09/18 06:41 Dose: 250 mg Vancomycin HCl (Pharmacy To Dose - Vancomycin) 1 dose .XX ASDIRECTED [facility] - Exam General: Alert, Oriented Lungs: Clear to Auscultation, Normal Respiratory Effort Cardiovascular: Regular Rate, Regular Rhythm GI/Abdominal Exam: Soft, Non-Tender Extremities: Other (mild erythema of left foot.) - Problem List Review Problem List Initiated/Reviewed/Updated: Yes - Plan Plan:: 58 yo male admitted for cellulitis of left foot and right hand. E.coli bacteremia: continue zosyn, dopplar and ultrasound ordered and expected to be performed today C.diff colitis:continue oral vancomycin.
--- NOTE | 2018-07-10 16:22 | US ---
ULTRASOUND EXAMINATION OF the left and right lower extremities WITH DOPPLER HISTORY: Infection, redness FINDINGS: Examination of the left and right legs were performed from the groin to the calf region. All visualized segments including common femoral, proximal greater saphenous, superficial femoral, popliteal and calf veins appear patent with good compressibility and augmentation. There is no evidence of deep vein thrombosis. IMPRESSION: No evidence of a DVT.
--- NOTE | 2018-07-10 16:55 | US ---
EXAMINATION: Bilateral upper extremity venous duplex ultrasound HISTORY: Redness, bacteremia COMPARISON: None TECHNIQUE: grayscale, color Doppler, and spectral Doppler imaging obtained of the upper extremities. FINDINGS: There is good color Doppler flow and waveforms noted within the bilateral subclavian, axillary, brachial, basilic and cephalic veins. The left radial and antecubital veins appear normal. The right radial vein was not imaged due to pain. No filling defect or evidence of a DVT. IMPRESSION: No deep vein thrombus identified within the upper extremities.
[2018-07-10] MEDS: traZODone 50 MG Tab PO SCH (20:59)
[2018-07-10] MEDS: Mirtazapine 15 MG Tab.DIS PO SCH (20:59)
[2018-07-11] MEDS: Vancomycin 25 MG/ML Compounding Kit PO SCH ×4 (03:19→21:55)
[2018-07-11] MEDS: Piperacillin/Tazobactam 3.375 GM in Sodium Chloride 0.9% 50 ML IV SCH ×4 (03:19→21:53)
[2018-07-11 05:58] LABS: CHLORIDE,CL 106 mmol/L (98-107); SODIUM,NA 140 mmol/L (136-148)
[2018-07-11] MEDS: Pantoprazole 40 MG Tab.CR PO SCH (06:41)
[2018-07-11] MEDS: Morphine 15 MG Tab PO PRN ×2 (06:41→15:26)
[2018-07-11] MEDS: Metoprolol Tartrate 50 MG Tab PO SCH ×2 (09:23→21:54)
[2018-07-11] MEDS: Apixaban 5 MG Tab PO SCH ×2 (09:27→21:55)
[2018-07-11] MEDS: predniSONE 20 MG Tab PO SCH (09:27)
[2018-07-11] MEDS: Diltiazem 120 MG Cap.CD PO SCH (09:28)
[2018-07-11] MEDS: DULoxetine 60 MG Cap PO SCH (09:28)
[2018-07-11] MEDS: Gabapentin 300 MG Cap PO SCH ×2 (09:29→21:54)
[2018-07-11] MEDS: Midodrine 5 MG Tab PO SCH ×2 (09:32→21:54)
[2018-07-11] MEDS: Topiramate 50 MG Tab PO SCH ×2 (09:33→21:54)
[2018-07-11] MEDS: HYDROmorphone 1 MG/ML Syringe IV PRN ×3 (09:35→17:50)
[2018-07-11] MEDS: Tiotropium Bromide [Spiriva Respimat] 2 PUFF INH SCH (09:45)
--- NOTE | 2018-07-11 15:39 | NM ---
EXAMINATION: 3 phase bone scan of the hips HISTORY: Rule out infection COMPARISON: CT abdomen and pelvis dated 07/05/2018 TECHNIQUE: Anterior, posterior, and oblique imaging obtained of the pelvis following the administration of 22.8 mCi of technetium 99m labeled MDP. Imaging obtained in the angiographic phase, blood flow phase, and delayed phases. FINDINGS: There is no increased uptake noted on the angiographic phase is within the region of the hips or pelvis. Slightly asymmetric blood pool activity noted within the region of the soft tissues adjacent to the left hip there is also increased uptake within the region of the left acetabulum on the delayed imaging. This however appears similar to a previous bone scan dated October 14, 2015. There is symmetric uptake within the SI joints and normal uptake within the right hip. There is notable bladder activity even following voiding. IMPRESSION: 1. No definite uptake within the region of the hips to suggest an infectious process. Chronically increased uptake within the region of the left superior acetabulum, corresponding dystrophic calcifications noted within this region on the corresponding CT. 2. Notable urinary tract retention post void.
--- NOTE | 2018-07-11 19:50 | PCM.PN ---
<Fracisco Marques Z - Last Filed: 07/11/18 19:45> - General Info Date of Service: 07/11/18 Subjective Update: Patient is currently stable, stilling having some diarrhea related to C. difficile infection. Pain is well-controlled currently. - Patient Data Vitals - Most Recent: Last Vital Signs Temp 36.2 C 07/11/18 15:30 Pulse 72 07/11/18 15:30 Resp 18 07/11/18 15:30 BP 91/50 L 07/11/18 15:30 Pulse Ox 94 L 07/11/18 15:30 Weight - Most Recent: 65.771 kg I&O - Last 24 Hours: Intake & Output 07/11/18 07/11/18 07/11/18 06:59 14:59 22:59 Intake Total 600 50 500 Output Total 850 300 Balance -250 50 200 Lab Results Last 24 Hours: Laboratory Results - last 24 hr 07/11/18 07/11/18 Range/Units 05:20 05:20 WBC 4.00 (4.0-11.0) K/uL RBC 3.54 L (4.50-5.90) M/uL Hgb 9.6 L (13.0-17.0) g/dL Hct 32.0 L (38.0-50.0) % MCV 90.4 (80.0-98.0) fL MCH 27.1 (27.0-32.0) pg MCHC 30.0 L (31.0-37.0) g/dL RDW Std Deviation 65.0 H (28.0-62.0) fl RDW Coeff of Tre 20 H (11.0-15.0) % Plt Count 264 (150-400) K/uL MPV 10.00 (7.40-12.00) fL Neut % (Auto) [employer] Lymph % (Auto) [employer] Vance % (Auto) [employer] Eos % (Auto) [employer] Baso % (Auto) [employer] AGENT Neut # (Auto) [employer] AGENT Lymph # (Auto) [employer]OCK AGENT Vance # (Auto) [employer] AGENT Eos # (Auto) [employer] AGENT Baso # (Auto) [employer] Add Manual Diff YES Neutrophils % (Manual) 61 (48.0-80.0) % Band Neutrophils % 5 % Lymphocytes % (Manual) 25 (16.0-40.0) % Monocytes % (Manual) 6 (0.0-15.0) % Eosinophils % (Manual) 1 (0.0-7.0) % Metamyelocytes % 1 % Myelocytes % 1 % Nucleated RBC % 0.0 /100WBC Absolute Seg Neuts 2.4 (1.4-5.7) Band Neutrophils # 0.2 Lymphocytes # (Manual) 1.0 (0.6-2.4) Monocytes # (Manual) 0.2 (0.0-0.8) Eosinophils # (Manual) 0.0 (0.0-0.7) Absolute Metamyelocyte 0 Absolute Myelocytes 0 Nucleated RBCs # 0 K/uL Sodium 140 (136-148) mmol/L Potassium 3.9 (3.5-5.1) mmol/L Chloride 106 (98-107) mmol/L Carbon Dioxide 28.6 (21.0-32.0) mmol/L BUN 25 H (7.0-18.0) mg/dL Creatinine 1.1 (0.8-1.3) mg/dL Est Cr Clr Drug Dosing 61.29 mL/min Estimated GFR (MDRD) > 60.0 ml/min Glucose 80 (74-106) mg/dL Calcium 8.1 L (8.5-10.1) mg/dL Total Bilirubin 0.4 (0.2-1.0) mg/dL AST 39 H (15-37) IU/L ALT 48 (14-63) IU/L Alkaline Phosphatase 62 (46-116) U/L Total Protein 4.8 L (6.4-8.2) g/dL Albumin 1.2 L (3.4-5.0) g/dL Globulin 3.6 (2.6-4.0) g/dL Albumin/Globulin Ratio 0.3 L (0.9-1.6) Steve Results Last 24 Hours: Microbiology 07/07/18 11:10 Aerobic Blood Culture - Preliminary Blood - Venous - Lab Draw NO GROWTH AFTER 4 DAYS Anaerobic Blood Culture - Final 07/07/18 10:58 Aerobic Blood Culture - Preliminary Blood - Venous NO GROWTH AFTER 4 DAYS Anaerobic Blood Culture - Final Med Orders - Current: Current Medications Acetaminophen (Tylenol) 650 mg PO Q4H PRN PRN Reason: Pain (Mild 1-3)/fever Last Admin: 07/04/18 23:52 Dose: 650 mg Albuterol (Proventil Neb Soln) 2.5 mg NEB Q4H PRN PRN Reason: Shortness of Breath Last Admin: 07/04/18 23:26 Dose: 2.5 mg Apixaban (Eliquis) 5 mg PO BID [facility] Last Admin: 07/11/18 09:27 Dose: 5 mg Diltiazem HCl (Cardizem Cd) 240 mg PO DAILY [facility] Last Admin: 07/11/18 09:28 Dose: 240 mg Docusate Sodium (Colace) 100 mg PO TID PRN PRN Reason: Constipation Last Admin: 07/05/18 20:26 Dose: 100 mg Duloxetine HCl (Cymbalta) 60 mg PO DAILY [facility] Last Admin: 07/11/18 09:28 Dose: 60 mg Gabapentin (Neurontin) 1,200 mg PO BID [facility] Last Admin: 07/11/18 09:29 Dose: 1,200 mg Hydromorphone HCl (Dilaudid) 1 mg IV Q2H PRN PRN Reason: Pain Last Admin: 07/11/18 17:50 Dose: 1 mg Piperacillin Sod/Tazobactam (Sod 3.375 gm/ Sodium Chloride) 50 mls @ 100 mls/ hr IV Q6H [facility] Last Admin: 07/11/18 14:42 Dose: 100 mls/hr Metoprolol Tartrate (Lopressor) 50 mg PO BID [facility] Last Admin: 07/11/18 09:23 Dose: 50 mg Midodrine (Midodrine) 2.5 mg PO BID [facility] Last Admin: 07/11/18 09:32 Dose: 2.5 mg Mirtazapine (Remeron) 15 mg PO BEDTIME [facility] Last Admin: 07/10/18 20:59 Dose: 15 mg Morphine Sulfate (Morphine) 15 mg PO Q6H PRN PRN Reason: Pain Last Admin: 07/11/18 15:26 Dose: 15 mg Ondansetron HCl (Zofran) 4 mg IVPUSH Q4H PRN PRN Reason: Nausea Pantoprazole Sodium (Protonix) 40 mg PO ACBREAKFAST [facility] Last Admin: 07/11/18 06:41 Dose: 40 mg Tiotropium [place] [ Spiriva Respimat] 2 Puff 2 each INH DAILY [facility] Last Admin: 07/11/18 09:45 Dose: Not Given Prednisone (Prednisone) 20 mg PO DAILY [facility] Last Admin: 07/11/18 09:27 Dose: 20 mg Topiramate (Topamax) 25 mg PO BID [facility] Last Admin: 07/11/18 09:33 Dose: 25 mg Trazodone HCl (Trazodone) 50 mg PO BEDTIME [facility] Last Admin: 07/10/18 20:59 Dose: 50 mg Vancomycin HCl (First-Vancomycin 25 Compounding Kit) 125 mg PO Q6H [facility] Last Admin: 07/11/18 14:50 Dose: 5 ml Discontinued Medications Gabapentin (Neurontin) 600 mg PO BID [facility] Last Admin: 07/03/18 20:56 Dose: 600 mg Hydromorphone HCl (Dilaudid) 1 mg IVPUSH ONETIME ONE Stop: 07/02/18 22:39 Last Admin: 07/02/18 22:56 Dose: 1 mg Hydromorphone HCl (Dilaudid) 0.5 mg IVPUSH Q2H PRN PRN Reason: Pain (severe 7-10) Last Admin: 07/04/18 07:59 Dose: 0.5 mg Hydromorphone HCl (Dilaudid) 1 mg IVPUSH Q2H PRN PRN Reason: Pain (severe 7-10) Last Admin: 07/05/18 11:32 Dose: 1 mg Hydromorphone HCl (Dilaudid) 1 mg IV Q2H [facility] Last Admin: 07/07/18 13:17 Dose: Not Given Piperacillin Sod/Tazobactam (Sod 3.375 gm/ Sodium Chloride) 50 mls @ 100 mls/ hr IV ONETIME ONE Stop: 07/02/18 21:36 Last Admin: 07/02/18 21:23 Dose: 100 mls/hr Sodium Chloride (Normal Saline) 1,000 mls @ 999 mls/hr IV STAT ONE Stop: 07/02/18 22:08 Last Admin: 07/02/18 21:22 Dose: 999 mls/hr Vancomycin HCl 1 gm/ Sodium (Chloride) 250 mls @ 166 mls/hr IV ONETIME ONE Stop: 07/03/18 00:15 Last Admin: 07/02/18 22:58 Dose: 166 mls/hr Sodium Chloride (Normal Saline) 1,000 mls @ 100 mls/hr IV ASDIRECTED [facility] Vancomycin HCl 1 gm/ Sodium (Chloride) 250 mls @ 166 mls/hr IV Q12H [facility] Last Admin: 07/04/18 11:01 Dose: Not Given Vancomycin HCl 0.75 gm/ Sodium (Chloride) 250 mls @ 166.667 mls/hr IV Q12H [facility] Last Admin: 07/05/18 23:32 Dose: 166.667 mls/hr Vancomycin HCl 1 gm/ Sodium (Chloride) 250 mls @ 166 mls/hr IV Q24H [facility] Last Admin: 07/06/18 23:06 Dose: 166 mls/hr Metoprolol Tartrate (Lopressor) Confirm Administered Dose 50 mg .ROUTE .STK-MED ONE Stop: 07/03/18 06:39 Last Admin: 07/03/18 06:43 Dose: Not Given Morphine Sulfate (Morphine Sulfate) 4 mg IV Q4H [facility] Last Admin: 07/05/18 15:23 Dose: Not Given Morphine Sulfate (Morphine Sulfate) 4 mg IV Q4H PRN PRN Reason: Pain Last Admin: 07/07/18 08:45 Dose: 4 mg Pantoprazole Sodium (Protonix) Confirm Administered Dose 40 mg .ROUTE .STK- MED ONE Stop: 07/03/18 05:29 Last Admin: 07/03/18 05:36 Dose: Not Given Potassium Chloride (Klor-Con M20) 40 meq PO ONETIME ONE Stop: 07/09/18 15:21 Last Admin: 07/09/18 15:42 Dose: 40 meq Sodium Phosphate (Neutra-Phos) 250 mg PO QID [facility] Last Admin: 07/09/18 06:41 Dose: 250 mg Vancomycin HCl (Pharmacy To Dose - Vancomycin) 1 dose .XX ASDIRECTED [facility] - Exam General: Alert, Oriented, Cooperative Lungs: Clear to Auscultation, Normal Respiratory Effort Cardiovascular: Regular Rate, Regular Rhythm Extremities: Other (Cellulitic infection appears to be improving in both the right and left foot, edema is significantly reduced as compared to on admission) - Problem List Review Problem List Initiated/Reviewed/Updated: Yes - My Orders Last 24 Hours: My Active Orders 07/10/18 19:00 Echo Comp wo Cont [US] Routine - Plan Plan:: 58-year-old male with 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 E.coli bacteremia: The fourth blood culture drawn on this patient finally cleared the bacteremia however still continue zosyn, dopplar and ultrasound and bone scan conducted pending results C.diff colitis: Patient developed C. difficile colitis over the weekend currently continue oral vancomycin. FEN: Patient is hydrating well not on any IV fluids, currently on a regular diet , no abnormalities currently present on electrolytes DVT: Eliquis 5mg CODE Status: Full code <Francisco Nolasco - Last Filed: 07/12/18 08:25> - Patient Data Vitals - Most Recent: Last Vital Signs Temp 36.8 C 07/12/18 07:31 Pulse 81 07/12/18 07:31 Resp 16 07/12/18 07:31 BP 123/68 07/12/18 07:31 Pulse Ox 93 L 07/12/18 07:31 I&O - Last 24 Hours: Intake & Output 07/11/18 07/12/18 07/12/18 22:59 06:59 14:59 Intake Total 550 650 Output Total 300 700 Balance 250 -50 Steve Results Last 24 Hours: Microbiology 07/07/18 11:10 Aerobic Blood Culture - Preliminary Blood - Venous - Lab Draw NO GROWTH AFTER 4 DAYS Anaerobic Blood Culture - Final 07/07/18 10:58 Aerobic Blood Culture - Preliminary Blood - Venous NO GROWTH AFTER 4 DAYS Anaerobic Blood Culture - Final Med Orders - Current: Current Medications Acetaminophen (Tylenol) 650 mg PO Q4H PRN PRN Reason: Pain (Mild 1-3)/fever Last Admin: 07/04/18 23:52 Dose: 650 mg Albuterol (Proventil Neb Soln) 2.5 mg NEB Q4H PRN PRN Reason: Shortness of Breath Last Admin: 07/04/18 23:26 Dose: 2.5 mg Apixaban (Eliquis) 5 mg PO BID [facility] Last Admin: 07/11/18 21:55 Dose: 5 mg Diltiazem HCl (Cardizem Cd) 240 mg PO DAILY [facility] Last Admin: 07/11/18 09:28 Dose: 240 mg Docusate Sodium (Colace) 100 mg PO TID PRN PRN Reason: Constipation Last Admin: 07/05/18 20:26 Dose: 100 mg Duloxetine HCl (Cymbalta) 60 mg PO DAILY [facility] Last Admin: 07/11/18 09:28 Dose: 60 mg Gabapentin (Neurontin) 1,200 mg PO BID [facility] Last Admin: 07/11/18 21:54 Dose: 1,200 mg Hydromorphone HCl (Dilaudid) 1 mg IV Q2H PRN PRN Reason: Pain Last Admin: 07/11/18 17:50 Dose: 1 mg Piperacillin Sod/Tazobactam (Sod 3.375 gm/ Sodium Chloride) 50 mls @ 100 mls/ hr IV Q6H [facility] Last Admin: 07/12/18 03:53 Dose: 100 mls/hr Metoprolol Tartrate (Lopressor) 50 mg PO BID [facility] Last Admin: 07/11/18 21:54 Dose: 50 mg Midodrine (Midodrine) 2.5 mg PO BID [facility] Last Admin: 07/11/18 21:54 Dose: 2.5 mg Mirtazapine (Remeron) 15 mg PO BEDTIME [facility] Last Admin: 07/11/18 21:54 Dose: 15 mg Morphine Sulfate (Morphine) 15 mg PO Q6H PRN PRN Reason: Pain Last Admin: 07/11/18 15:26 Dose: 15 mg Ondansetron HCl (Zofran) 4 mg IVPUSH Q4H PRN PRN Reason: Nausea Pantoprazole Sodium (Protonix) 40 mg PO ACBREAKFAST [facility] Last Admin: 07/12/18 06:36 Dose: 40 mg Tiotropium [place] [ Spiriva Respimat] 2 Puff 2 each INH DAILY [facility] Last Admin: 07/11/18 09:45 Dose: Not Given Prednisone (Prednisone) 20 mg PO DAILY [facility] Last Admin: 07/11/18 09:27 Dose: 20 mg Topiramate (Topamax) 25 mg PO BID [facility] Last Admin: 07/11/18 21:54 Dose: 25 mg Trazodone HCl (Trazodone) 50 mg PO BEDTIME [facility] Last Admin: 07/11/18 21:55 Dose: 50 mg Vancomycin HCl (First-Vancomycin 25 Compounding Kit) 125 mg PO Q6H [facility] Last Admin: 07/12/18 03:53 Dose: 5 ml Discontinued Medications Gabapentin (Neurontin) 600 mg PO BID [facility] Last Admin: 07/03/18 20:56 Dose: 600 mg Hydromorphone HCl (Dilaudid) 1 mg IVPUSH ONETIME ONE Stop: 07/02/18 22:39 Last Admin: 07/02/18 22:56 Dose: 1 mg Hydromorphone HCl (Dilaudid) 0.5 mg IVPUSH Q2H PRN PRN Reason: Pain (severe 7-10) Last Admin: 07/04/18 07:59 Dose: 0.5 mg Hydromorphone HCl (Dilaudid) 1 mg IVPUSH Q2H PRN PRN Reason: Pain (severe 7-10) Last Admin: 07/05/18 11:32 Dose: 1 mg Hydromorphone HCl (Dilaudid) 1 mg IV Q2H [facility] Last Admin: 07/07/18 13:17 Dose: Not Given Piperacillin Sod/Tazobactam (Sod 3.375 gm/ Sodium Chloride) 50 mls @ 100 mls/ hr IV ONETIME ONE Stop: 07/02/18 21:36 Last Admin: 07/02/18 21:23 Dose: 100 mls/hr Sodium Chloride (Normal Saline) 1,000 mls @ 999 mls/hr IV STAT ONE Stop: 07/02/18 22:08 Last Admin: 07/02/18 21:22 Dose: 999 mls/hr Vancomycin HCl 1 gm/ Sodium (Chloride) 250 mls @ 166 mls/hr IV ONETIME ONE Stop: 07/03/18 00:15 Last Admin: 07/02/18 22:58 Dose: 166 mls/hr Sodium Chloride (Normal Saline) 1,000 mls @ 100 mls/hr IV ASDIRECTED [facility] Vancomycin HCl 1 gm/ Sodium (Chloride) 250 mls @ 166 mls/hr IV Q12H [facility] Last Admin: 07/04/18 11:01 Dose: Not Given Vancomycin HCl 0.75 gm/ Sodium (Chloride) 250 mls @ 166.667 mls/hr IV Q12H [facility] Last Admin: 07/05/18 23:32 Dose: 166.667 mls/hr Vancomycin HCl 1 gm/ Sodium (Chloride) 250 mls @ 166 mls/hr IV Q24H [facility] Last Admin: 07/06/18 23:06 Dose: 166 mls/hr Metoprolol Tartrate (Lopressor) Confirm Administered Dose 50 mg .ROUTE .STK-MED ONE Stop: 07/03/18 06:39 Last Admin: 07/03/18 06:43 Dose: Not Given Morphine Sulfate (Morphine Sulfate) 4 mg IV Q4H [facility] Last Admin: 07/05/18 15:23 Dose: Not Given Morphine Sulfate (Morphine Sulfate) 4 mg IV Q4H PRN PRN Reason: Pain Last Admin: 07/07/18 08:45 Dose: 4 mg Pantoprazole Sodium (Protonix) Confirm Administered Dose 40 mg .ROUTE .STK- MED ONE Stop: 07/03/18 05:29 Last Admin: 07/03/18 05:36 Dose: Not Given Potassium Chloride (Klor-Con M20) 40 meq PO ONETIME ONE Stop: 07/09/18 15:21 Last Admin: 07/09/18 15:42 Dose: 40 meq Sodium Phosphate (Neutra-Phos) 250 mg PO QID [facility] Last Admin: 07/09/18 06:41 Dose: 250 mg Vancomycin HCl (Pharmacy To Dose - Vancomycin) 1 dose .XX ASDIRECTED [facility] - Plan Plan:: I saw and evaluated the patient. Discussed with resident and agree with residents findings and plan as documented in the residents note.
[2018-07-11] MEDS: Mirtazapine 15 MG Tab.DIS PO SCH (21:54)
[2018-07-11] MEDS: traZODone 50 MG Tab PO SCH (21:55)
[2018-07-12] MEDS: Vancomycin 25 MG/ML Compounding Kit PO SCH ×4 (03:53→20:54)
[2018-07-12] MEDS: Piperacillin/Tazobactam 3.375 GM in Sodium Chloride 0.9% 50 ML IV SCH ×2 (03:53→09:21)
[2018-07-12] MEDS: Pantoprazole 40 MG Tab.CR PO SCH (06:36)
[2018-07-12] MEDS: Metoprolol Tartrate 50 MG Tab PO SCH ×2 (09:17→21:01)
[2018-07-12] MEDS: DULoxetine 60 MG Cap PO SCH (09:17)
[2018-07-12] MEDS: Gabapentin 300 MG Cap PO SCH ×2 (09:18→20:56)
[2018-07-12] MEDS: Diltiazem 120 MG Cap.CD PO SCH (09:18)
[2018-07-12] MEDS: Apixaban 5 MG Tab PO SCH ×2 (09:19→20:59)
[2018-07-12] MEDS: Topiramate 50 MG Tab PO SCH ×2 (09:20→20:59)
[2018-07-12] MEDS: predniSONE 20 MG Tab PO SCH (09:20)
[2018-07-12] MEDS: Midodrine 5 MG Tab PO SCH ×2 (09:26→20:56)
[2018-07-12] MEDS: Tiotropium Bromide [Spiriva Respimat] 2 PUFF INH SCH (09:26)
[2018-07-12] MEDS: HYDROmorphone 1 MG/ML Syringe IV PRN ×2 (09:41→12:32)
[2018-07-12] MEDS ORDERED: Ketorolac 15 MG/ML SDV IVPUSH ONE (10:40)
[2018-07-12] MEDS: Famotidine 20 MG/2 ML SDV IVPUSH SCH ×2 (11:00→21:01)
[2018-07-12] MEDS: Mirtazapine 15 MG Tab.DIS PO SCH (21:00)
[2018-07-12] MEDS: traZODone 50 MG Tab PO SCH (21:00)
[2018-07-13] MEDS: Vancomycin 25 MG/ML Compounding Kit PO SCH ×3 (04:26→15:50)
[2018-07-13] MEDS: Morphine 15 MG Tab PO PRN (04:27)
[2018-07-13] MEDS: Pantoprazole 40 MG Tab.CR PO SCH (07:16)
[2018-07-13] MEDS: Midodrine 5 MG Tab PO SCH (08:42)
[2018-07-13] MEDS: Topiramate 50 MG Tab PO SCH (08:43)
[2018-07-13] MEDS: Metoprolol Tartrate 50 MG Tab PO SCH (08:44)
[2018-07-13] MEDS: predniSONE 20 MG Tab PO SCH (08:44)
[2018-07-13] MEDS: DULoxetine 60 MG Cap PO SCH (08:44)
[2018-07-13] MEDS: Gabapentin 300 MG Cap PO SCH (08:45)
[2018-07-13] MEDS: Diltiazem 120 MG Cap.CD PO SCH (08:45)
[2018-07-13] MEDS: Apixaban 5 MG Tab PO SCH (08:46)
[2018-07-13] MEDS: Famotidine 20 MG/2 ML SDV IVPUSH SCH (08:46)
[2018-07-13] MEDS: Tiotropium Bromide [Spiriva Respimat] 2 PUFF INH SCH (08:50)
--- NOTE | 2018-07-13 09:32 | PCM.PN ---
<Fracisco Marques Z - Last Filed: 07/13/18 17:15> - General Info Date of Service: 07/12/18 Subjective Update: Stable, diarrhea is improving. Pt states he would like to go home. - Patient Data Vitals - Most Recent: Last Vital Signs Temp 36.6 C 07/13/18 07:48 Pulse 90 07/13/18 08:45 Resp 16 07/13/18 07:48 BP 120/70 07/13/18 08:45 Pulse Ox 94 L 07/13/18 07:48 Weight - Most Recent: 65.771 kg I&O - Last 24 Hours: Intake & Output 07/12/18 07/13/18 07/13/18 22:59 06:59 14:59 Intake Total 720 340 Output Total 350 350 Balance 370 -10 Steve Results Last 24 Hours: Microbiology 07/07/18 11:10 Aerobic Blood Culture - Final Blood - Venous - Lab Draw NO GROWTH AFTER 5 DAYS Anaerobic Blood Culture - Final 07/07/18 10:58 Aerobic Blood Culture - Final Blood - Venous NO GROWTH AFTER 5 DAYS Anaerobic Blood Culture - Final Med Orders - Current: Current Medications Acetaminophen (Tylenol) 650 mg PO Q4H PRN PRN Reason: Pain (Mild 1-3)/fever Last Admin: 07/04/18 23:52 Dose: 650 mg Albuterol (Proventil Neb Soln) 2.5 mg NEB Q4H PRN PRN Reason: Shortness of Breath Last Admin: 07/04/18 23:26 Dose: 2.5 mg Apixaban (Eliquis) 5 mg PO BID [facility] Last Admin: 07/13/18 08:46 Dose: 5 mg Diltiazem HCl (Cardizem Cd) 240 mg PO DAILY [facility] Last Admin: 07/13/18 08:45 Dose: 240 mg Docusate Sodium (Colace) 100 mg PO TID PRN PRN Reason: Constipation Last Admin: 07/05/18 20:26 Dose: 100 mg Duloxetine HCl (Cymbalta) 60 mg PO DAILY [facility] Last Admin: 07/13/18 08:44 Dose: 60 mg Famotidine (Pepcid) 20 mg IVPUSH BID [facility] Last Admin: 07/13/18 08:46 Dose: 20 mg Gabapentin (Neurontin) 1,200 mg PO BID [facility] Last Admin: 07/13/18 08:45 Dose: 1,200 mg Hydromorphone HCl (Dilaudid) 1 mg IV Q2H PRN PRN Reason: Pain Last Admin: 07/12/18 12:32 Dose: 1 mg Metoprolol Tartrate (Lopressor) 50 mg PO BID [facility] Last Admin: 07/13/18 08:44 Dose: 50 mg Midodrine (Midodrine) 2.5 mg PO BID [facility] Last Admin: 07/13/18 08:42 Dose: 2.5 mg Mirtazapine (Remeron) 15 mg PO BEDTIME [facility] Last Admin: 07/12/18 21:00 Dose: 15 mg Morphine Sulfate (Morphine) 15 mg PO Q6H PRN PRN Reason: Pain Last Admin: 07/13/18 04:27 Dose: 15 mg Ondansetron HCl (Zofran) 4 mg IVPUSH Q4H PRN PRN Reason: Nausea Pantoprazole Sodium (Protonix) 40 mg PO ACBREAKFAST [facility] Last Admin: 07/13/18 07:16 Dose: 40 mg Tiotropium [place] [ Spiriva Respimat] 2 Puff 2 each INH DAILY [facility] Last Admin: 07/13/18 08:50 Dose: Not Given Prednisone (Prednisone) 20 mg PO DAILY [facility] Last Admin: 07/13/18 08:44 Dose: 20 mg Topiramate (Topamax) 25 mg PO BID [facility] Last Admin: 07/13/18 08:43 Dose: 25 mg Trazodone HCl (Trazodone) 50 mg PO BEDTIME [facility] Last Admin: 07/12/18 21:00 Dose: 50 mg Vancomycin HCl (First-Vancomycin 25 Compounding Kit) 125 mg PO Q6H [facility] Last Admin: 07/13/18 08:50 Dose: 5 ml Discontinued Medications Gabapentin (Neurontin) 600 mg PO BID [facility] Last Admin: 07/03/18 20:56 Dose: 600 mg Hydromorphone HCl (Dilaudid) 1 mg IVPUSH ONETIME ONE Stop: 07/02/18 22:39 Last Admin: 07/02/18 22:56 Dose: 1 mg Hydromorphone HCl (Dilaudid) 0.5 mg IVPUSH Q2H PRN PRN Reason: Pain (severe 7-10) Last Admin: 07/04/18 07:59 Dose: 0.5 mg Hydromorphone HCl (Dilaudid) 1 mg IVPUSH Q2H PRN PRN Reason: Pain (severe 7-10) Last Admin: 07/05/18 11:32 Dose: 1 mg Hydromorphone HCl (Dilaudid) 1 mg IV Q2H [facility] Last Admin: 07/07/18 13:17 Dose: Not Given Piperacillin Sod/Tazobactam (Sod 3.375 gm/ Sodium Chloride) 50 mls @ 100 mls/ hr IV ONETIME ONE Stop: 07/02/18 21:36 Last Admin: 07/02/18 21:23 Dose: 100 mls/hr Sodium Chloride (Normal Saline) 1,000 mls @ 999 mls/hr IV STAT ONE Stop: 07/02/18 22:08 Last Admin: 07/02/18 21:22 Dose: 999 mls/hr Vancomycin HCl 1 gm/ Sodium (Chloride) 250 mls @ 166 mls/hr IV ONETIME ONE Stop: 07/03/18 00:15 Last Admin: 07/02/18 22:58 Dose: 166 mls/hr Piperacillin Sod/Tazobactam (Sod 3.375 gm/ Sodium Chloride) 50 mls @ 100 mls/ hr IV Q6H [facility] Last Admin: 07/12/18 09:21 Dose: 100 mls/hr Sodium Chloride (Normal Saline) 1,000 mls @ 100 mls/hr IV ASDIRECTED [facility] Vancomycin HCl 1 gm/ Sodium (Chloride) 250 mls @ 166 mls/hr IV Q12H [facility] Last Admin: 07/04/18 11:01 Dose: Not Given Vancomycin HCl 0.75 gm/ Sodium (Chloride) 250 mls @ 166.667 mls/hr IV Q12H [facility] Last Admin: 07/05/18 23:32 Dose: 166.667 mls/hr Vancomycin HCl 1 gm/ Sodium (Chloride) 250 mls @ 166 mls/hr IV Q24H [facility] Last Admin: 07/06/18 23:06 Dose: 166 mls/hr Ketorolac Tromethamine (Toradol) 15 mg IVPUSH ONETIME ONE Stop: 07/12/18 10:41 Last Admin: 07/12/18 11:00 Dose: 15 mg Metoprolol Tartrate (Lopressor) Confirm Administered Dose 50 mg .ROUTE .STK-MED ONE Stop: 07/03/18 06:39 Last Admin: 07/03/18 06:43 Dose: Not Given Morphine Sulfate (Morphine Sulfate) 4 mg IV Q4H [facility] Last Admin: 07/05/18 15:23 Dose: Not Given Morphine Sulfate (Morphine Sulfate) 4 mg IV Q4H PRN PRN Reason: Pain Last Admin: 07/07/18 08:45 Dose: 4 mg Pantoprazole Sodium (Protonix) Confirm Administered Dose 40 mg .ROUTE .STK- MED ONE Stop: 07/03/18 05:29 Last Admin: 07/03/18 05:36 Dose: Not Given Potassium Chloride (Klor-Con M20) 40 meq PO ONETIME ONE Stop: 07/09/18 15:21 Last Admin: 07/09/18 15:42 Dose: 40 meq Sodium Phosphate (Neutra-Phos) 250 mg PO QID [facility] Last Admin: 07/09/18 06:41 Dose: 250 mg Vancomycin HCl (Pharmacy To Dose - Vancomycin) 1 dose .XX ASDIRECTED [facility] - Exam General: Alert, Oriented, Cooperative, Mild Distress Lungs: Clear to Auscultation, Normal Respiratory Effort Cardiovascular: Regular Rate, Regular Rhythm Skin: Other (Cellulitis is improving in both upper and lower ext. ) - Problem List Review Problem List Initiated/Reviewed/Updated: Yes - My Orders Last 24 Hours: My Active Orders 07/12/18 08:54 Consult to Home Health [CONS] Routine 07/12/18 09:16 Consult to Physical Therapy [PT Evaluation and Treatment] [CONS] Routine 07/12/18 10:45 Famotidine [Pepcid] 20 mg IVPUSH BID - Plan Plan:: 58 year old male who is admitted for Cellulits of right hand and left foot. -Shall stop the zyosn today as pt has had adequate amount of time for coverage. -Shall continue with oral vanc for Cdiff infection. Pt to get a total of 10 days worth of treatment. -Pt to be d/c'd likely tomorrow after Home Health and PT works with pt. I saw and evaluated the patient. Discussed with resident and agree with residents findings and plan as documented in the residents note. <Francisco Nolasco - Last Filed: 07/13/18 17:28> - Patient Data Vitals - Most Recent: Last Vital Signs Temp 36.7 C 07/13/18 16:31 Pulse 69 07/13/18 16:31 Resp 14 07/13/18 16:31 BP 101/65 07/13/18 16:31 Pulse Ox 90 L 07/13/18 16:31 I&O - Last 24 Hours: Intake & Output 07/13/18 07/13/18 07/13/18 06:59 14:59 22:59 Intake Total 340 450 Output Total 350 500 Balance -10 -50 Med Orders - Current: Current Medications Acetaminophen (Tylenol) 650 mg PO Q4H PRN PRN Reason: Pain (Mild 1-3)/fever Last Admin: 07/04/18 23:52 Dose: 650 mg Albuterol (Proventil Neb Soln) 2.5 mg NEB Q4H PRN PRN Reason: Shortness of Breath Last Admin: 07/04/18 23:26 Dose: 2.5 mg Apixaban (Eliquis) 5 mg PO BID [facility] Last Admin: 07/13/18 08:46 Dose: 5 mg Diltiazem HCl (Cardizem Cd) 240 mg PO DAILY [facility] Last Admin: 07/13/18 08:45 Dose: 240 mg Docusate Sodium (Colace) 100 mg PO TID PRN PRN Reason: Constipation Last Admin: 07/05/18 20:26 Dose: 100 mg Duloxetine HCl (Cymbalta) 60 mg PO DAILY [facility] Last Admin: 07/13/18 08:44 Dose: 60 mg Famotidine (Pepcid) 20 mg IVPUSH BID [facility] Last Admin: 07/13/18 08:46 Dose: 20 mg Gabapentin (Neurontin) 1,200 mg PO BID [facility] Last Admin: 07/13/18 08:45 Dose: 1,200 mg Hydromorphone HCl (Dilaudid) 1 mg IV Q2H PRN PRN Reason: Pain Last Admin: 07/12/18 12:32 Dose: 1 mg Metoprolol Tartrate (Lopressor) 50 mg PO BID [facility] Last Admin: 07/13/18 08:44 Dose: 50 mg Midodrine (Midodrine) 2.5 mg PO BID [facility] Last Admin: 07/13/18 08:42 Dose: 2.5 mg Mirtazapine (Remeron) 15 mg PO BEDTIME [facility] Last Admin: 07/12/18 21:00 Dose: 15 mg Morphine Sulfate (Morphine) 15 mg PO Q6H PRN PRN Reason: Pain Last Admin: 07/13/18 04:27 Dose: 15 mg Ondansetron HCl (Zofran) 4 mg IVPUSH Q4H PRN PRN Reason: Nausea Pantoprazole Sodium (Protonix) 40 mg PO ACBREAKFAST [facility] Last Admin: 07/13/18 07:16 Dose: 40 mg Tiotropium [place] [ Spiriva Respimat] 2 Puff 2 each INH DAILY [facility] Last Admin: 07/13/18 08:50 Dose: Not Given Prednisone (Prednisone) 20 mg PO DAILY [facility] Last Admin: 07/13/18 08:44 Dose: 20 mg Topiramate (Topamax) 25 mg PO BID [facility] Last Admin: 07/13/18 08:43 Dose: 25 mg Trazodone HCl (Trazodone) 50 mg PO BEDTIME [facility] Last Admin: 07/12/18 21:00 Dose: 50 mg Vancomycin HCl (First-Vancomycin 25 Compounding Kit) 125 mg PO Q6H [facility] Last Admin: 07/13/18 15:50 Dose: 5 ml Discontinued Medications Gabapentin (Neurontin) 600 mg PO BID [facility] Last Admin: 07/03/18 20:56 Dose: 600 mg Hydromorphone HCl (Dilaudid) 1 mg IVPUSH ONETIME ONE Stop: 07/02/18 22:39 Last Admin: 07/02/18 22:56 Dose: 1 mg Hydromorphone HCl (Dilaudid) 0.5 mg IVPUSH Q2H PRN PRN Reason: Pain (severe 7-10) Last Admin: 07/04/18 07:59 Dose: 0.5 mg Hydromorphone HCl (Dilaudid) 1 mg IVPUSH Q2H PRN PRN Reason: Pain (severe 7-10) Last Admin: 07/05/18 11:32 Dose: 1 mg Hydromorphone HCl (Dilaudid) 1 mg IV Q2H [facility] Last Admin: 07/07/18 13:17 Dose: Not Given Piperacillin Sod/Tazobactam (Sod 3.375 gm/ Sodium Chloride) 50 mls @ 100 mls/ hr IV ONETIME ONE Stop: 07/02/18 21:36 Last Admin: 07/02/18 21:23 Dose: 100 mls/hr Sodium Chloride (Normal Saline) 1,000 mls @ 999 mls/hr IV STAT ONE Stop: 07/02/18 22:08 Last Admin: 07/02/18 21:22 Dose: 999 mls/hr Vancomycin HCl 1 gm/ Sodium (Chloride) 250 mls @ 166 mls/hr IV ONETIME ONE Stop: 07/03/18 00:15 Last Admin: 07/02/18 22:58 Dose: 166 mls/hr Piperacillin Sod/Tazobactam (Sod 3.375 gm/ Sodium Chloride) 50 mls @ 100 mls/ hr IV Q6H [facility] Last Admin: 07/12/18 09:21 Dose: 100 mls/hr Sodium Chloride (Normal Saline) 1,000 mls @ 100 mls/hr IV ASDIRECTED [facility] Vancomycin HCl 1 gm/ Sodium (Chloride) 250 mls @ 166 mls/hr IV Q12H [facility] Last Admin: 07/04/18 11:01 Dose: Not Given Vancomycin HCl 0.75 gm/ Sodium (Chloride) 250 mls @ 166.667 mls/hr IV Q12H [facility] Last Admin: 07/05/18 23:32 Dose: 166.667 mls/hr Vancomycin HCl 1 gm/ Sodium (Chloride) 250 mls @ 166 mls/hr IV Q24H [facility] Last Admin: 07/06/18 23:06 Dose: 166 mls/hr Ketorolac Tromethamine (Toradol) 15 mg IVPUSH ONETIME ONE Stop: 07/12/18 10:41 Last Admin: 07/12/18 11:00 Dose: 15 mg Metoprolol Tartrate (Lopressor) Confirm Administered Dose 50 mg .ROUTE .STK-MED ONE Stop: 07/03/18 06:39 Last Admin: 07/03/18 06:43 Dose: Not Given Morphine Sulfate (Morphine Sulfate) 4 mg IV Q4H [facility] Last Admin: 07/05/18 15:23 Dose: Not Given Morphine Sulfate (Morphine Sulfate) 4 mg IV Q4H PRN PRN Reason: Pain Last Admin: 07/07/18 08:45 Dose: 4 mg Pantoprazole Sodium (Protonix) Confirm Administered Dose 40 mg .ROUTE .STK- MED ONE Stop: 07/03/18 05:29 Last Admin: 07/03/18 05:36 Dose: Not Given Potassium Chloride (Klor-Con M20) 40 meq PO ONETIME ONE Stop: 07/09/18 15:21 Last Admin: 07/09/18 15:42 Dose: 40 meq Sodium Phosphate (Neutra-Phos) 250 mg PO QID [facility] Last Admin: 07/09/18 06:41 Dose: 250 mg Vancomycin HCl (Pharmacy To Dose - Vancomycin) 1 dose .XX ASDIRECTED [facility] - Plan Plan:: I was present with the resident during the history and exam. I discussed the case with the resident and agree with the findings and plan as documented in the residents note.
--- NOTE | 2018-07-13 10:40 | PCM.DCSUM1 ---
<Fracisco Marques Z - Last Filed: 07/14/18 11:29> Discharge Summary - Hospital Course HPI Initial Comments: Discharge Summary Date of admission: 07/02/18 Date of discharge: 07/13/18 Admitting diagnosis: #1. 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 Cellulitis resolved, patient completed inpatient IV antibiotics for the cellulitic infection #2. C. difficile infection on day 5 of date 10 oral vancomycin #3. Depression secondary to chronic medical condition #4. Deconditioning secondary to hospitalization stay requiring home health Consultations: None Procedures: None Hospitalization course: Patient was admitted was started on IV vancomycin and Zosyn for his cellulitic infections. Blood cultures were drawn which initially came back indicating bacteremia due to gram-negative rods which were speciated to be Escherichia coli that was sensitive to Zosyn. Patient was continued on Zosyn and vancomycin and had his blood cultures repeated a total of 4 times as he continued to be bacteremic and we had a very difficult time clearing the gram -negative Escherichia coli infection from the blood stream. Patient was hemodynamically stable throughout his stay and did not show signs of sepsis. We did attempt to find the source of the patient's Escherichia coli infection, his abdomen pelvis CT scan showed possible stranding of the appendix, general surgery was consulted and after assessing stated that the appendix looked normal and likely not the source of infection, patient's urine analysis continues to be clear with no sign of a UTI causing the infection, we did an MRI of the patient's right hand and left foot for the cellulitic processes were happening which simply showed swelling indicated. Cellulitis without any osteomyelitis involvement. 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 I did speak with infectious disease in [place] after the third blood culture came back still indicating bacteremia; ID recommended assessing for possible endovascular septic causes and recommended doing venous Dopplers as well as echo to assess for possible source of infection. Both studies came back negative for source of infection were within normal limits. Infectious disease also recommended orthopedics assess the hip despite the CT imaging indicating no sign of infectious process, orthopedics was curbside consulted and they recommended doing a 3-phase bone scan of the hips and if there was any indication of uptake then they would be officially consult possibly aspirate to assess for source of infection. The 3-phase bone scan came back within normal limits. Infectious diseases final recommendation was for the patient. Colonoscopy for source of infection. The patient is due for a colonoscopy as he states that 3 years prior he had multiple polyps excised and was recommended to have a repeat scope in 2 years time. Since the patient was having mood changes due to his chronic medical condition he asked for a psychiatry consultation, we did have telemetry psychiatry Dr. Tolliver assessed the patient and his impressions were that the patient likely had bipolar affective disease, mixed type along with anxiety disorder and possibly major depressive disorder. Dr. Tolliver recommended patient start on Cymbalta 60 mg , Remeron, Topamax and to establish care with a primary care provider with possible recommendations for outpatient follow-up with psychiatry. Patient 5 days prior to discharge was also found to have C. difficile infection secondary to his IV antibiotics and he was receiving. His IV vancomycin had been discontinued, and Zosyn was discontinued 2 days prior to discharge as he had completed his full therapy. Patient had been placed on oral vancomycin, and on day of discharge had had a total of 5 days of the therapy for his C. difficile infection. One day prior to discharge was also noted that the patient was having some urinary retention however he was not complaining of any urinary issues but does have a large prostate. As the patient was deemed stable, it was decided to discharge the patient and have a outpatient colonoscopy scheduled with Gen. surgery, pulmonary evaluation with a campus administrative assistant outpatient, urology for urinary retention, patient follow- up with primary care provider. Patient was sent home on home health. Home health unas-yr-iozi: #1. Homebound: Due to weakness and deconditioning due to hospitalization home health was required, patient is also unsteady when walking and a fall risk needing to utilize a walker to ambulate safely. #2. Needed for skilled services: RN to monitor: Medication education due to new medications, assessment of effectiveness of medication changes, assessment/education regarding new diagnoses, assessment/education of recent exacerbation of diagnoses, assessment of wound healing and assist with dressing changes. Physical therapy for strengthening due to weakness from recent hospitalization, deconditioning due to disease process, gait instability and high fall risk. Occupational therapy: Home safety evaluation for functional safety in home. #3. Primary MHayden who will be following the client at home: Dr. Huizar shall continue to follow the patient for home health once discharged from the hospital. Diagnosis: Stroke: No Modified Trousdale Scale: No Symptoms at All Modified Trousdale Scale Score: 0 - Discharge Data Discharge Date: 07/13/18 Discharge Disposition: Home, W Home Health Agency 06 Condition: Stable - Patient Summary/Data Consults: Consultations 07/03/18 10:49 Consult to Wound Care Services [CONS] Routine 07/04/18 13:25 Consult to Physician [CONS] Routine 07/06/18 19:30 Consult to Physician [CONS] Routine 07/12/18 08:54 Consult to Home Health [CONS] Routine 07/12/18 09:16 Consult to Physical Therapy [PT Evaluation and Treatment] [CONS] Routine - Patient Instructions Diet: Usual Diet as Tolerated Activity: As Tolerated Driving: Do Not Drive Showering/Bathing: May Shower Notify Provider of: Fever, Increased Pain, Swelling and Redness, Drainage, Nausea and/or Vomiting - Discharge Plan Prescriptions/Med Rec: predniSONE 20 mg PO DAILY 30 Days #30 tablet predniSONE [Prednisone] 20 mg PO DAILY #5 tablet Home Medications: Home Meds Finasteride 5 mg PO DAILY 01/11/16 [History] Fluticasone/Vilanterol [Breo Ellipta 200-25 Mcg INH] 1 inh INH DAILY 01/11/16 [ History] Gabapentin [Neurontin] 1,600 mg PO BID 01/11/16 [History] Testosterone [Androgel] 4 pump TOP DAILY 01/11/16 [History] Tiotropium [place] [Spiriva Respimat] 2 puff INH BID 01/12/16 [History] Morphine 15 mg PO Q6H PRN #10 tablet 01/15/16 [Rx] Albuterol Sulfate 2.5 mg IH DAILY 05/19/18 [History] Apixaban [Eliquis] 5 mg PO BID 05/19/18 [History] Diltiazem HCl [Diltiazem 24Hr ER] 240 mg PO DAILY 05/19/18 [History] Icosapent Ethyl [Vascepa] 1 gm PO DAILY 05/19/18 [History] Pantoprazole [ProTONIX] 40 mg PO DAILY 05/19/18 [History] Metoprolol Tartrate 50 mg PO BID 05/20/18 [History] Midodrine 2.5 mg PO BID 05/20/18 [History] traZODone HCl [Trazodone HCl] 50 mg PO BEDTIME 05/20/18 [History] Iron Polysaccharides Complex [Ferrex 150] 150 mg PO DAILY 30 Days #30 cap [Rx] Albuterol [Proventil Neb Soln] 2.5 mg NEB Q4HR PRN #15 neb 06/29/18 [Rx] Diclofenac Sodium [Voltaren 1% Gel] 1 applic TP QID #1 tube 06/29/18 [Rx] Vancomycin [First-Vancomycin 25 Compounding Kit] 125 mg PO Q6H 6 Days #1 bottle 07/13/18 [Rx] predniSONE 20 mg PO DAILY 30 Days #30 tablet 07/13/18 [Rx] predniSONE [Prednisone] 20 mg PO DAILY #5 tablet 07/13/18 [Rx] Oxygen Therapy Mode: Room Air Patient Handouts: Cellulitis, Adult, [id number] Referrals: [facility] [Outside] Anne Marie Corbett MD [Physician] - 08/09/18 9:00 am (Made for a colonoscopy consult. Arrive 15 minutes early with a photo ID and insurance card.) Mathew Ross MD [Physician] - 07/27/18 1:30 pm (Made for urinary retention ) Galdino Sanchez MD [Ordering Only Provider] - 07/18/18 9:45 am Robert Gandhi MD [Consulting Physician] - (Clinic nurse will call you for your follow up schedule. ) - Discharge Summary/Plan Comment DC Time >30 min.: Yes - Patient Data Vitals - Most Recent: Last Vital Signs Temp 36.6 C 07/13/18 07:48 Pulse 90 07/13/18 08:45 Resp 16 07/13/18 07:48 BP 120/70 07/13/18 08:45 Pulse Ox 94 L 07/13/18 07:48 Weight - Most Recent: 65.771 kg I&O - Last 24 hours: Intake & Output 07/12/18 07/13/18 07/13/18 22:59 06:59 14:59 Intake Total 720 340 Output Total 350 350 Balance 370 -10 SHILOH Results - Last 24 hrs: Microbiology 07/07/18 11:10 Aerobic Blood Culture - Final Blood - Venous - Lab Draw NO GROWTH AFTER 5 DAYS Anaerobic Blood Culture - Final 07/07/18 10:58 Aerobic Blood Culture - Final Blood - Venous NO GROWTH AFTER 5 DAYS Anaerobic Blood Culture - Final Med Orders - Current: Current Medications Acetaminophen (Tylenol) 650 mg PO Q4H PRN PRN Reason: Pain (Mild 1-3)/fever Last Admin: 07/04/18 23:52 Dose: 650 mg Albuterol (Proventil Neb Soln) 2.5 mg NEB Q4H PRN PRN Reason: Shortness of Breath Last Admin: 07/04/18 23:26 Dose: 2.5 mg Apixaban (Eliquis) 5 mg PO BID [facility] Last Admin: 07/13/18 08:46 Dose: 5 mg Diltiazem HCl (Cardizem Cd) 240 mg PO DAILY [facility] Last Admin: 07/13/18 08:45 Dose: 240 mg Docusate Sodium (Colace) 100 mg PO TID PRN PRN Reason: Constipation Last Admin: 07/05/18 20:26 Dose: 100 mg Duloxetine HCl (Cymbalta) 60 mg PO DAILY [facility] Last Admin: 07/13/18 08:44 Dose: 60 mg Famotidine (Pepcid) 20 mg IVPUSH BID [facility] Last Admin: 07/13/18 08:46 Dose: 20 mg Gabapentin (Neurontin) 1,200 mg PO BID [facility] Last Admin: 07/13/18 08:45 Dose: 1,200 mg Hydromorphone HCl (Dilaudid) 1 mg IV Q2H PRN PRN Reason: Pain Last Admin: 07/12/18 12:32 Dose: 1 mg Metoprolol Tartrate (Lopressor) 50 mg PO BID [facility] Last Admin: 07/13/18 08:44 Dose: 50 mg Midodrine (Midodrine) 2.5 mg PO BID [facility] Last Admin: 07/13/18 08:42 Dose: 2.5 mg Mirtazapine (Remeron) 15 mg PO BEDTIME [facility] Last Admin: 07/12/18 21:00 Dose: 15 mg Morphine Sulfate (Morphine) 15 mg PO Q6H PRN PRN Reason: Pain Last Admin: 07/13/18 04:27 Dose: 15 mg Ondansetron HCl (Zofran) 4 mg IVPUSH Q4H PRN PRN Reason: Nausea Pantoprazole Sodium (Protonix) 40 mg PO ACBREAKFAST [facility] Last Admin: 07/13/18 07:16 Dose: 40 mg Tiotropium [place] [ Spiriva Respimat] 2 Puff 2 each INH DAILY [facility] Last Admin: 07/13/18 08:50 Dose: Not Given Prednisone (Prednisone) 20 mg PO DAILY [facility] Last Admin: 07/13/18 08:44 Dose: 20 mg Topiramate (Topamax) 25 mg PO BID [facility] Last Admin: 07/13/18 08:43 Dose: 25 mg Trazodone HCl (Trazodone) 50 mg PO BEDTIME [facility] Last Admin: 07/12/18 21:00 Dose: 50 mg Vancomycin HCl (First-Vancomycin 25 Compounding Kit) 125 mg PO Q6H [facility] Last Admin: 07/13/18 08:50 Dose: 5 ml Discontinued Medications Gabapentin (Neurontin) 600 mg PO BID [facility] Last Admin: 07/03/18 20:56 Dose: 600 mg Hydromorphone HCl (Dilaudid) 1 mg IVPUSH ONETIME ONE Stop: 07/02/18 22:39 Last Admin: 07/02/18 22:56 Dose: 1 mg Hydromorphone HCl (Dilaudid) 0.5 mg IVPUSH Q2H PRN PRN Reason: Pain (severe 7-10) Last Admin: 07/04/18 07:59 Dose: 0.5 mg Hydromorphone HCl (Dilaudid) 1 mg IVPUSH Q2H PRN PRN Reason: Pain (severe 7-10) Last Admin: 07/05/18 11:32 Dose: 1 mg Hydromorphone HCl (Dilaudid) 1 mg IV Q2H [facility] Last Admin: 07/07/18 13:17 Dose: Not Given Piperacillin Sod/Tazobactam (Sod 3.375 gm/ Sodium Chloride) 50 mls @ 100 mls/ hr IV ONETIME ONE Stop: 07/02/18 21:36 Last Admin: 07/02/18 21:23 Dose: 100 mls/hr Sodium Chloride (Normal Saline) 1,000 mls @ 999 mls/hr IV STAT ONE Stop: 07/02/18 22:08 Last Admin: 07/02/18 21:22 Dose: 999 mls/hr Vancomycin HCl 1 gm/ Sodium (Chloride) 250 mls @ 166 mls/hr IV ONETIME ONE Stop: 07/03/18 00:15 Last Admin: 07/02/18 22:58 Dose: 166 mls/hr Piperacillin Sod/Tazobactam (Sod 3.375 gm/ Sodium Chloride) 50 mls @ 100 mls/ hr IV Q6H [facility] Last Admin: 07/12/18 09:21 Dose: 100 mls/hr Sodium Chloride (Normal Saline) 1,000 mls @ 100 mls/hr IV ASDIRECTED [facility] Vancomycin HCl 1 gm/ Sodium (Chloride) 250 mls @ 166 mls/hr IV Q12H [facility] Last Admin: 07/04/18 11:01 Dose: Not Given Vancomycin HCl 0.75 gm/ Sodium (Chloride) 250 mls @ 166.667 mls/hr IV Q12H [facility] Last Admin: 07/05/18 23:32 Dose: 166.667 mls/hr Vancomycin HCl 1 gm/ Sodium (Chloride) 250 mls @ 166 mls/hr IV Q24H [facility] Last Admin: 07/06/18 23:06 Dose: 166 mls/hr Ketorolac Tromethamine (Toradol) 15 mg IVPUSH ONETIME ONE Stop: 07/12/18 10:41 Last Admin: 07/12/18 11:00 Dose: 15 mg Metoprolol Tartrate (Lopressor) Confirm Administered Dose 50 mg .ROUTE .STK-MED ONE Stop: 07/03/18 06:39 Last Admin: 07/03/18 06:43 Dose: Not Given Morphine Sulfate (Morphine Sulfate) 4 mg IV Q4H [facility] Last Admin: 07/05/18 15:23 Dose: Not Given Morphine Sulfate (Morphine Sulfate) 4 mg IV Q4H PRN PRN Reason: Pain Last Admin: 07/07/18 08:45 Dose: 4 mg Pantoprazole Sodium (Protonix) Confirm Administered Dose 40 mg .ROUTE .STK- MED ONE Stop: 07/03/18 05:29 Last Admin: 07/03/18 05:36 Dose: Not Given Potassium Chloride (Klor-Con M20) 40 meq PO ONETIME ONE Stop: 07/09/18 15:21 Last Admin: 07/09/18 15:42 Dose: 40 meq Sodium Phosphate (Neutra-Phos) 250 mg PO QID [facility] Last Admin: 07/09/18 06:41 Dose: 250 mg Vancomycin HCl (Pharmacy To Dose - Vancomycin) 1 dose .XX ASDIRECTED [facility] <Francisco Nolasco - Last Filed: 07/14/18 12:45> Discharge Summary - Hospital Course HPI Initial Comments: I saw and evaluated the patient. Discussed with resident and agree with residents findings and plan as documented in the residents note. - Patient Summary/Data Consults: Consultations 07/03/18 10:49 Consult to Wound Care Services [CONS] Routine 07/04/18 13:25 Consult to Physician [CONS] Routine 07/06/18 19:30 Consult to Physician [CONS] Routine 07/12/18 08:54 Consult to Home Health [CONS] Routine 07/12/18 09:16 Consult to Physical Therapy [PT Evaluation and Treatment] [CONS] Routine - Patient Data Vitals - Most Recent: Last Vital Signs Temp 36.7 C 07/13/18 16:31 Pulse 69 07/13/18 16:31 Resp 14 07/13/18 16:31 BP 101/65 07/13/18 16:31 Pulse Ox 90 L 07/13/18 16:31 I&O - Last 24 hours: Intake & Output 07/13/18 07/14/18 07/14/18 22:59 06:59 14:59 Intake Total 1050 Output Total 1000 Balance 50 Med Orders - Current: Current Medications Discontinued Medications Acetaminophen (Tylenol) 650 mg PO Q4H PRN PRN Reason: Pain (Mild 1-3)/fever Last Admin: 07/04/18 23:52 Dose: 650 mg Albuterol (Proventil Neb Soln) 2.5 mg NEB Q4H PRN PRN Reason: Shortness of Breath Last Admin: 07/04/18 23:26 Dose: 2.5 mg Apixaban (Eliquis) 5 mg PO BID [facility] Last Admin: 07/13/18 08:46 Dose: 5 mg Diltiazem HCl (Cardizem Cd) 240 mg PO DAILY [facility] Last Admin: 07/13/18 08:45 Dose: 240 mg Docusate Sodium (Colace) 100 mg PO TID PRN PRN Reason: Constipation Last Admin: 07/05/18 20:26 Dose: 100 mg Duloxetine HCl (Cymbalta) 60 mg PO DAILY [facility] Last Admin: 07/13/18 08:44 Dose: 60 mg Famotidine (Pepcid) 20 mg IVPUSH BID [facility] Last Admin: 07/13/18 08:46 Dose: 20 mg Gabapentin (Neurontin) 600 mg PO BID [facility] Last Admin: 07/03/18 20:56 Dose: 600 mg Gabapentin (Neurontin) 1,200 mg PO BID [facility] Last Admin: 07/13/18 08:45 Dose: 1,200 mg Hydromorphone HCl (Dilaudid) 1 mg IVPUSH ONETIME ONE Stop: 07/02/18 22:39 Last Admin: 07/02/18 22:56 Dose: 1 mg Hydromorphone HCl (Dilaudid) 0.5 mg IVPUSH Q2H PRN PRN Reason: Pain (severe 7-10) Last Admin: 07/04/18 07:59 Dose: 0.5 mg Hydromorphone HCl (Dilaudid) 1 mg IVPUSH Q2H PRN PRN Reason: Pain (severe 7-10) Last Admin: 07/05/18 11:32 Dose: 1 mg Hydromorphone HCl (Dilaudid) 1 mg IV Q2H [facility] Last Admin: 07/07/18 13:17 Dose: Not Given Hydromorphone HCl (Dilaudid) 1 mg IV Q2H PRN PRN Reason: Pain Last Admin: 07/12/18 12:32 Dose: 1 mg Piperacillin Sod/Tazobactam (Sod 3.375 gm/ Sodium Chloride) 50 mls @ 100 mls/ hr IV ONETIME ONE Stop: 07/02/18 21:36 Last Admin: 07/02/18 21:23 Dose: 100 mls/hr Sodium Chloride (Normal Saline) 1,000 mls @ 999 mls/hr IV STAT ONE Stop: 07/02/18 22:08 Last Admin: 07/02/18 21:22 Dose: 999 mls/hr Vancomycin HCl 1 gm/ Sodium (Chloride) 250 mls @ 166 mls/hr IV ONETIME ONE Stop: 07/03/18 00:15 Last Admin: 07/02/18 22:58 Dose: 166 mls/hr Piperacillin Sod/Tazobactam (Sod 3.375 gm/ Sodium Chloride) 50 mls @ 100 mls/ hr IV Q6H [facility] Last Admin: 07/12/18 09:21 Dose: 100 mls/hr Sodium Chloride (Normal Saline) 1,000 mls @ 100 mls/hr IV ASDIRECTED [facility] Vancomycin HCl 1 gm/ Sodium (Chloride) 250 mls @ 166 mls/hr IV Q12H [facility] Last Admin: 07/04/18 11:01 Dose: Not Given Vancomycin HCl 0.75 gm/ Sodium (Chloride) 250 mls @ 166.667 mls/hr IV Q12H [facility] Last Admin: 07/05/18 23:32 Dose: 166.667 mls/hr Vancomycin HCl 1 gm/ Sodium (Chloride) 250 mls @ 166 mls/hr IV Q24H [facility] Last Admin: 07/06/18 23:06 Dose: 166 mls/hr Ketorolac Tromethamine (Toradol) 15 mg IVPUSH ONETIME ONE Stop: 07/12/18 10:41 Last Admin: 07/12/18 11:00 Dose: 15 mg Metoprolol Tartrate (Lopressor) 50 mg PO BID [facility] Last Admin: 07/13/18 08:44 Dose: 50 mg Metoprolol Tartrate (Lopressor) Confirm Administered Dose 50 mg .ROUTE .STK-MED ONE Stop: 07/03/18 06:39 Last Admin: 07/03/18 06:43 Dose: Not Given Midodrine (Midodrine) 2.5 mg PO BID [facility] Last Admin: 07/13/18 08:42 Dose: 2.5 mg Mirtazapine (Remeron) 15 mg PO BEDTIME [facility] Last Admin: 07/12/18 21:00 Dose: 15 mg Morphine Sulfate (Morphine) 15 mg PO Q6H PRN PRN Reason: Pain Last Admin: 07/13/18 04:27 Dose: 15 mg Morphine Sulfate (Morphine Sulfate) 4 mg IV Q4H [facility] Last Admin: 07/05/18 15:23 Dose: Not Given Morphine Sulfate (Morphine Sulfate) 4 mg IV Q4H PRN PRN Reason: Pain Last Admin: 07/07/18 08:45 Dose: 4 mg Ondansetron HCl (Zofran) 4 mg IVPUSH Q4H PRN PRN Reason: Nausea Pantoprazole Sodium (Protonix) 40 mg PO ACBREAKFAST [facility] Last Admin: 07/13/18 07:16 Dose: 40 mg Pantoprazole Sodium (Protonix) Confirm Administered Dose 40 mg .ROUTE .STK- MED ONE Stop: 07/03/18 05:29 Last Admin: 07/03/18 05:36 Dose: Not Given Tiotropium [place] [ Spiriva Respimat] 2 Puff 2 each INH DAILY [facility] Last Admin: 07/13/18 08:50 Dose: Not Given Potassium Chloride (Klor-Con M20) 40 meq PO ONETIME ONE Stop: 07/09/18 15:21 Last Admin: 07/09/18 15:42 Dose: 40 meq Prednisone (Prednisone) 20 mg PO DAILY [facility] Last Admin: 07/13/18 08:44 Dose: 20 mg Sodium Phosphate (Neutra-Phos) 250 mg PO QID [facility] Last Admin: 07/09/18 06:41 Dose: 250 mg Topiramate (Topamax) 25 mg PO BID [facility] Last Admin: 07/13/18 08:43 Dose: 25 mg Trazodone HCl (Trazodone) 50 mg PO BEDTIME [facility] Last Admin: 07/12/18 21:00 Dose: 50 mg Vancomycin HCl (Pharmacy To Dose - Vancomycin) 1 dose .XX ASDIRECTED [facility] Vancomycin HCl (First-Vancomycin 25 Compounding Kit) 125 mg PO Q6H [facility] Last Admin: 07/13/18 15:50 Dose: 5 ml
--- NOTE | 2018-07-13 14:59 | ECHO ---
EXAM DATE: 07/03/18 PATIENT'S AGE: 58 The echocardiogram report can be seen in this patient's EMR (Electronic Medical Record) in the Reports section. The report has also been scanned into PACs. MARIO
[2018-07-13 16:35] VITALS: BP 101/65
== END 2018-07-13 17:50 | disposition home health service (06) | DRG 603 ==
LOC: MW.ED 19:55 → MW.MS 22:45 → OBSVTOIN 07-03 13:08 → MW.MS 07-03 15:43
PROVIDERS: ADMIT Internal Medicine; ATTEND Internal Medicine
DX: L03.116 Cellulitis of left lower limb (principal); I42.9 Cardiomyopathy, unspecified; B44.9 Aspergillosis, unspecified; L03.113 Cellulitis of right upper limb; R78.81 Bacteremia; B44.1 Other pulmonary aspergillosis; F31.60 Bipolar disorder, current episode mixed, unspecified; A04.72 Enterocolitis due to Clostridium difficile, not specified as recurrent; L97.529 Non-pressure chronic ulcer of other part of left foot with unspecified severity; I48.2 Chronic atrial fibrillation; I50.9 Heart failure, unspecified; I11.0 Hypertensive heart disease with heart failure; J45.909 Unspecified asthma, uncomplicated; F32.9 Major depressive disorder, single episode, unspecified; G62.9 Polyneuropathy, unspecified; B96.20 Unspecified Escherichia coli [E. coli] as the cause of diseases classified elsewhere; M25.552 Pain in left hip; M25.551 Pain in right hip; F41.9 Anxiety disorder, unspecified; K21.9 Gastro-esophageal reflux disease without esophagitis; G89.4 Chronic pain syndrome; M19.90 Unspecified osteoarthritis, unspecified site; M54.9 Dorsalgia, unspecified; M81.0 Age-related osteoporosis without current pathological fracture; M06.9 Rheumatoid arthritis, unspecified; N40.1 Benign prostatic hyperplasia with lower urinary tract symptoms; R33.8 Other retention of urine; I25.2 Old myocardial infarction; Z87.442 Personal history of urinary calculi; Z96.642 Presence of left artificial hip joint; R60.0 Localized edema; M25.531 Pain in right wrist; M10.9 Gout, unspecified; K57.90 Diverticulosis of intestine, part unspecified, without perforation or abscess without bleeding; Z86.711 Personal history of pulmonary embolism; Z87.01 Personal history of pneumonia (recurrent); Z88.1 Allergy status to other antibiotic agents; Z79.899 Other long term (current) drug therapy; Z90.2 Acquired absence of lung [part of]; Z79.52 Long term (current) use of systemic steroids; Z87.440 Personal history of urinary (tract) infections; Z90.5 Acquired absence of kidney; Z79.01 Long term (current) use of anticoagulants; Z85.820 Personal history of malignant melanoma of skin; Z86.73 Personal history of transient ischemic attack (TIA), and cerebral infarction without residual deficits; Z96.612 Presence of left artificial shoulder joint
CPT/HCPCS: 36415 ×2; 71045; 73110; 73130; 73630; 73718; 80048; 80053; 83605 ×2; 85025 ×2; 87040 ×4; 87088; 87186; 93005; 96361; 96365; 96366 ×2; 96367; 96375; 96376; 99285; A9270 ×7; G0378 ×2; J1170 ×3; J2543 ×3; J3370 ×2; J7040; J7050 ×5; 73218-26-RT; 73218-RT; 73700-26-LT; 73700-26-RT; 73700-LT; 73700-RT; 74176; 74176-26; 76705; 76705-26; 78315; 78315-26; 80202; 81001; 83735; 84100; 84153; 86140; 87077; 87324; 93306; 93970; 93970-26; 939702650; 97161-GP; 99283; A9503; J1885; J2270; J3490

== ENCOUNTER 2018-07-17 18:15 | Inpatient (IN) | payer MEDICARE, OTHER ==
[2018-07-17] MEDS ORDERED: Sodium Chloride 0.9% 10 ML Syringe FLUSH PRN (18:27)
[2018-07-17] MEDS ORDERED: Sodium Chloride 0.9% 2.5 ML Syringe FLUSH PRN (18:27)
[2018-07-17] MEDS ORDERED: Sodium Chloride 0.9% 1,000 ML IV ONE (18:36)
--- NOTE | 2018-07-17 18:42 | EDM.PDOC ---
ED HPI GENERAL MEDICAL PROBLEM - General Chief Complaint: General Stated Complaint: LOW OXYGEN LEVEL Time Seen by Provider: 07/17/18 18:33 Source of Information: Reports: Patient History Limitations: Reports: No Limitations - History of Present Illness INITIAL COMMENTS - FREE TEXT/NARRATIVE: HISTORY AND PHYSICAL: History of present illness: Majority of the history of present illness is limited due to the son and EMS report. Patient report his own history of present illness is limited. Patient is a 58-year-old male who presents to the emergency room via ground ambulance with concerns of weakness and fever. Patient has been receiving home health care since Tuesday and noted temperature of 102 while at home today. Home health care as been calming since Tuesday to help bandaged wounds. The son who is at the bedside states that he appeared to be somewhat dehydrated over the weekend but they have been encouraging fluids. This morning he started to demonstrate some weakness and had temperatures of 101 and 102. Son also states that he has been mumbling and that his mental status seems to be a little bit different but his son is not able to pinpoint what this means Son reports that his oxygen saturation is typically around 89% on room air. 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 Had a recent history of cellulitis to the left foot and right upper extremity. Recently was diagnosed with C. difficile diarrhea, currently taking oral vancomycin for this. Review of systems: As per history of present illness and below otherwise all systems reviewed and negative. Past medical history: As per history of present illness and as reviewed below otherwise noncontributory. Surgical history: As per history of present illness and as reviewed below otherwise noncontributory. Social history: See social history for further information Family history: As per history of present illness and as reviewed below otherwise noncontributory. Physical exam: General: Alert, orientated, answers questions slowly and inappropriately. He is able to follow commands. Son at bedside states this is not his normal. Chronically ill appearing, and in no acute distress. Appears older than stated age. HEENT: Atraumatic, normocephalic, pupils equal and reactive bilaterally, negative for conjunctival pallor or scleral icterus, mucous membranes moist, TMs normal bilaterally, throat clear, neck supple, nontender, trachea midline. No drooling or trismus noted. No meningeal signs. No hot potato voice noted. Lungs: Diminished lung sounds throughout. Clear to auscultation, breath sounds equal bilaterally, chest nontender. Heart: Heart sounds are distant, S1S2, regular rate and rhythm without overt murmur Abdomen: Obese, soft, nondistended, nontender. Negative for masses or hepatosplenomegaly. Negative for costovertebral tenderness. Pelvis: Stable nontender. Genitourinary: Deferred. Rectal: Deferred. Skin: SEE extremities for details. Otherwise skin is intact, warm, dry. No lesions or rashes noted. Extremities: Patient is missing multiple toes on the right foot. The left foot does have an open ulcer on the dorsal aspect of the foot just superior to the third toe. Patient does have a 2 cm broken area of skin on the heel of the left foot. Patient's right arm is in a splint. The right arm is edematous and mildly erythematous. Patient's generalized skin is thin and friable. There are generalized areas of multiple healing areas over the body in multiple stages. His skin does have several patches that are severely dry and flaking. Negative for cords or calf pain. Neurovascular unremarkable. Neuro: Neuro exam is limited due to patient cooperation. Awake, alert, oriented but when asked questions answers slowly and inappropriately. Cranial nerves II through XII unremarkable. Cerebellum unremarkable. Motor and sensory unremarkable throughout. Exam nonfocal. Notes: Patient was last admitted on 07/02/18, at that time he was being treated for a cellulitis of the left foot and right hand. He was treated with vancomycin and Zosyn IV. During that time he was treated with oral vancomycin for a C. difficile infection. Currently he is still taking this medication. He was discharged on 07/13/18 from the hospital to home. He has been receiving home health care and physical therapy for wound care. With discussion with son, he did show prior pictures of patient's foot and hand. Son agrees that his foot and hand seem to be healing better than they had been prior. Son states that his mental status does seem to be a little bit different but not completely unusual for him. He states that his speech seems to be a little more slurred but otherwise son believes he is aware was going on. X-ray shows a mildly patchy density on the left lateral lung base which is suggestive of a pneumonia. Dislocation of the left reverse shoulder arthroplasty prosthesis is noted. Patient reports that this is very "normal for me" and has no concerns of this as he is easily able to reduce this himself. Head CT shows a 9 mm rounded area in the right lateral ventricle. There is no change of this over the past month and is unlikely to represent an acute hemorrhage, but rather is worrisome for mass. The radiologist recommends a non- emergent MR of the brain with and without contrast to further characterize this finding. Otherwise there are no significant changes or findings. The roads are closed and unable to transfer via EMS or air due to the weather. Dr. Gonsalves was consulted and is agreeable to admitting this patient. Diagnostics: CBC, CMP, EKG, 2 view chest x-ray, lactic acid, blood cultures 2, head CT Therapeutics: IV fluid, vancomycin, zosyn, acetaminophen Contact precautions Impression: Left lateral lung pneumonia Immunocompromised H/o c.diff R/o sepsis Plan: 1. Admit to observation Definitive disposition and diagnosis as appropriate pending reevaluation and review of above. - Related Data Allergies Allergy/AdvReac Type Severity Reaction Status Date / Time itraconazole [From Sporanox] Allergy Unknown Confusion Verified 07/17/18 18:24 levofloxacin [From Levaquin] Allergy Unknown Other Verified 07/17/18 18:24 Home Meds: Home Meds Finasteride 5 mg PO DAILY 01/11/16 [History] Fluticasone/Vilanterol [Breo Ellipta 200-25 Mcg INH] 1 inh INH DAILY 01/11/16 [ History] Gabapentin [Neurontin] 1,600 mg PO BID 01/11/16 [History] Testosterone [Androgel] 4 pump TOP DAILY 01/11/16 [History] Tiotropium [place] [Spiriva Respimat] 2 puff INH BID 01/12/16 [History] Morphine 15 mg PO Q6H PRN #10 tablet 01/15/16 [Rx] Albuterol Sulfate 2.5 mg IH DAILY 05/19/18 [History] Apixaban [Eliquis] 5 mg PO BID 05/19/18 [History] Diltiazem HCl [Diltiazem 24Hr ER] 240 mg PO DAILY 05/19/18 [History] Icosapent Ethyl [Vascepa] 1 gm PO DAILY 05/19/18 [History] Pantoprazole [ProTONIX] 40 mg PO DAILY 05/19/18 [History] Metoprolol Tartrate 50 mg PO BID 05/20/18 [History] Midodrine 2.5 mg PO BID 05/20/18 [History] traZODone HCl [Trazodone HCl] 50 mg PO BEDTIME 05/20/18 [History] Iron Polysaccharides Complex [Ferrex 150] 150 mg PO DAILY 30 Days #30 cap [Rx] Albuterol [Proventil Neb Soln] 2.5 mg NEB Q4HR PRN #15 neb 06/29/18 [Rx] Diclofenac Sodium [Voltaren 1% Gel] 1 applic TP QID #1 tube 06/29/18 [Rx] Vancomycin [First-Vancomycin 25 Compounding Kit] 125 mg PO Q6H 6 Days #1 bottle 07/13/18 [Rx] predniSONE 20 mg PO DAILY 30 Days #30 tablet 07/13/18 [Rx] predniSONE [Prednisone] 20 mg PO DAILY #5 tablet 07/13/18 [Rx] Past Medical History HEENT History: Reports: Cataract Other HEENT History: dental fillings due to caries; recent tooth fracture Cardiovascular History: Reports: Afib, Cardiomyopathy, Heart Failure, Hypertension, ND Respiratory History: Reports: Asthma, Bronchitis, Recurrent, PE, Pneumonia, Recurrent, Other (See Below) Other Respiratory History: Chronic pulmonary aspergillosis, 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 bilateral achilles tendon ruptures and repair. 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 No explantation- -they apparently just treated him with IV abx for months. - Past Surgical History Head Surgeries/Procedures: Reports: None HEENT Surgical History: Reports: Cataract Surgery Cardiovascular Surgical History: Reports: None Respiratory Surgical History: Reports: Lung Resection Other Respiratory Surgeries/Procedures: intubated last Feb 2018 and transfered to [facility] Surgical History: Reports: None Male Surgical History: Reports: None Endocrine Surgical History: Reports: None Neurological Surgical History: Reports: None Musculoskeletal Surgical History: Reports: Shoulder Surgery, Other (See Below) Other Musculoskeletal Surgeries/Procedures:: L shoulder and left hip surgery Oncologic Surgical History: Reports: None Dermatological Surgical History: Reports: None Social & Family History - Family History Family Medical History: Noncontributory - Tobacco Use Smoking Status *Q: Never Smoker Second Hand Smoke Exposure: No - Caffeine Use Caffeine Use: Reports: Coffee - Recreational Drug Use Recreational Drug Use: No - Living Situation & Occupation Living situation: Reports: Single Occupation: Disabled ED ROS GENERAL - Review of Systems Review Of Systems: ROS reveals no pertinent complaints other than HPI. ED EXAM, GENERAL - Physical Exam Exam: See Below (see dictation) Course - Vital Signs Last Recorded V/S: Last Vital Signs Temp 99.4 F 07/17/18 20:27 Pulse 103 H 07/17/18 20:27 Resp 20 07/17/18 20:27 BP 102/64 07/17/18 20:27 Pulse Ox 96 07/17/18 20:27 - Orders/Labs/Meds Orders: Active Orders 24 hr Category Date Time Status Admission Status [Patient Status] [ADT] Stat ADT 07/17/18 20:51 Active Communication Order [RC] STAT Care 07/17/18 19:06 Active EKG 12 Lead [EKG Documentation Completion] [RC] STAT Care 07/17/18 18:27 Active RT Aerosol Therapy [RC] ASDIRECTED Care 07/17/18 19:20 Active CULTURE BLOOD [BC] Stat Lab 07/17/18 18:38 Results CULTURE BLOOD [BC] Stat Lab 07/17/18 18:59 Received UA RFX SHILOH AND CULT IF INDIC [URIN] Stat Lab 07/17/18 19:00 Ordered Sodium Chloride 0.9% [Saline Flush] Med 03/04/19 18:27 Active 10 ml FLUSH ASDIRECTED PRN Sodium Chloride 0.9% [Saline Flush] Med 07/17/18 18:27 Active 2.5 ml FLUSH ASDIRECTED PRN Blood Culture x2 Reflex Set [OM.PC] Stat Oth 07/17/18 18:27 Ordered Saline Lock Insert [OM.PC] Stat Ot 07/17/18 18:27 Ordered Medication Orders Sodium Chloride (Saline Flush) 10 ml FLUSH ASDIRECTED PRN PRN Reason: Keep Vein Open Sodium Chloride (Saline Flush) 2.5 ml FLUSH ASDIRECTED PRN PRN Reason: Keep Vein Open Labs: Laboratory Tests 07/17/18 07/17/18 07/17/18 Range/Units 18:59 18:59 18:59 WBC 12.13 H (4.0-11.0) K/uL RBC 3.93 L (4.50-5.90) M/uL Hgb 10.6 L (13.0-17.0) g/dL Hct 34.3 L (38.0-50.0) % MCV 87.3 (80.0-98.0) fL MCH 27.0 (27.0-32.0) pg MCHC 30.9 L (31.0-37.0) g/dL RDW Std Deviation 61.4 (28.0-62.0) fl RDW Coeff of Tre 19 H (11.0-15.0) % Plt Count 287 (150-400) K/uL MPV 9.40 (7.40-12.00) fL Add Manual Diff YES Neutrophils % (Manual) 82 H (48.0-80.0) % Band Neutrophils % 4 % Lymphocytes % (Manual) 5 L (16.0-40.0) % Monocytes % (Manual) 8 (0.0-15.0) % Eosinophils % (Manual) 1 (0.0-7.0) % Nucleated RBC % 0.0 /100WBC Absolute Seg Neuts 9.9 H (1.4-5.7) Band Neutrophils # 0.5 Lymphocytes # (Manual) 0.6 (0.6-2.4) Monocytes # (Manual) 1.0 H (0.0-0.8) Eosinophils # (Manual) 0.1 (0.0-0.7) Nucleated RBCs # 0 K/uL Lactate 2.8 H (0.20-2.00) mmol/L Sodium 135 L (136-148) mmol/L Potassium 3.7 (3.5-5.1) mmol/L Chloride 99 (98-107) mmol/L Carbon Dioxide 25.3 (21.0-32.0) mmol/L BUN 16 (7.0-18.0) mg/dL Creatinine 1.3 (0.8-1.3) mg/dL Est Cr Clr Drug Dosing 59.92 mL/min Estimated GFR (MDRD) 56.7 ml/min Glucose 121 H (74-106) mg/dL Calcium 8.2 L (8.5-10.1) mg/dL Total Bilirubin 0.5 (0.2-1.0) mg/dL AST 73 H (15-37) IU/L ALT 65 H (14-63) IU/L Alkaline Phosphatase 78 (46-116) U/L Troponin I (0.000-0.056) ng/mL Total Protein 5.7 L (6.4-8.2) g/dL Albumin 1.5 L (3.4-5.0) g/dL Globulin 4.2 H (2.6-4.0) g/dL Albumin/Globulin Ratio 0.4 L (0.9-1.6) 07/17/18 Range/Units 18:59 WBC (4.0-11.0) K/uL RBC (4.50-5.90) M/uL Hgb (13.0-17.0) g/dL Hct (38.0-50.0) % MCV (80.0-98.0) fL MCH (27.0-32.0) pg MCHC (31.0-37.0) g/dL RDW Std Deviation (28.0-62.0) fl RDW Coeff of Tre (11.0-15.0) % Plt Count (150-400) K/uL MPV (7.40-12.00) fL Add Manual Diff Neutrophils % (Manual) (48.0-80.0) % Band Neutrophils % % Lymphocytes % (Manual) (16.0-40.0) % Monocytes % (Manual) (0.0-15.0) % Eosinophils % (Manual) (0.0-7.0) % Nucleated RBC % /100WBC Absolute Seg Neuts (1.4-5.7) Band Neutrophils # Lymphocytes # (Manual) (0.6-2.4) Monocytes # (Manual) (0.0-0.8) Eosinophils # (Manual) (0.0-0.7) Nucleated RBCs # K/uL Lactate (0.20-2.00) mmol/L Sodium (136-148) mmol/L Potassium (3.5-5.1) mmol/L Chloride (98-107) mmol/L Carbon Dioxide (21.0-32.0) mmol/L BUN (7.0-18.0) mg/dL Creatinine (0.8-1.3) mg/dL Est Cr Clr Drug Dosing mL/min Estimated GFR (MDRD) ml/min Glucose (74-106) mg/dL Calcium (8.5-10.1) mg/dL Total Bilirubin (0.2-1.0) mg/dL AST (15-37) IU/L ALT (14-63) IU/L Alkaline Phosphatase (46-116) U/L Troponin I < 0.050 (0.000-0.056) ng/mL Total Protein (6.4-8.2) g/dL Albumin (3.4-5.0) g/dL Globulin (2.6-4.0) g/dL Albumin/Globulin Ratio (0.9-1.6) Meds: Medications Generic Name Dose Route Start Last Admin Trade Name Freq PRN Reason Stop Dose Admin Sodium Chloride 10 ml 07/17/18 18:27 Saline Flush FLUSH ASDIRECTED PRN Keep Vein Open Sodium Chloride 2.5 ml 07/17/18 18:27 Saline Flush FLUSH ASDIRECTED PRN Keep Vein Open Discontinued Medications Generic Name Dose Route Start Last Admin Trade Name Freq PRN Reason Stop Dose Admin Acetaminophen 1,000 mg 07/17/18 18:44 07/17/18 18:58 Tylenol Extra Strength PO 07/17/18 18:45 1,000 mg ONETIME ONE Administration Albuterol/Ipratropium 3 ml 07/17/18 19:20 07/17/18 19:32 Duoneb 3.0-0.5 Mg/3 Ml NEB 03/04/19 19:21 3 ml ONETIME ONE Administration Sodium Chloride 1,000 mls @ 999 mls/hr 07/17/18 18:36 07/17/18 18:54 Normal Saline IV 07/17/18 19:36 999 mls/hr STAT ONE Administration Piperacillin Sod/Tazobactam 50 mls @ 100 mls/hr 07/17/18 19:17 07/17/18 19:36 Sod 3.375 gm/ Sodium Chloride IV 07/17/18 19:46 100 mls/hr ONETIME ONE Administration Vancomycin HCl 1 gm/ Sodium 250 mls @ 250 mls/hr 07/17/18 19:17 07/17/18 20: 15 Chloride IV 07/17/18 20:16 250 mls/hr ONETIME ONE Administration Departure - Departure Time of Disposition: 20:56 Disposition: Refer to Observation Clinical Impression: History of Clostridium difficile infection, Immunocompromised due to corticosteroids Pneumonia Qualifiers: Pneumonia type: due to unspecified organism Laterality: left Lung location: unspecified part of lung Qualified Code(s): J18.9 - Pneumonia, unspecified organism - Discharge Information Referrals: PCP,None [Primary Care Provider] - Forms: ED Department Discharge - My Orders Last 24 Hours: My Active Orders 07/17/18 18:27 EKG 12 Lead [EKG Documentation Completion] [RC] STAT Sodium Chloride 0.9% [Saline Flush] 10 ml FLUSH ASDIRECTED PRN Sodium Chloride 0.9% [Saline Flush] 2.5 ml FLUSH ASDIRECTED PRN Blood Culture x2 Reflex Set [OM.PC] Stat Saline Lock Insert [OM.PC] Stat 07/17/18 18:38 CULTURE BLOOD [BC] Stat 07/17/18 18:59 CULTURE BLOOD [BC] Stat 07/17/18 19:00 UA RFX SHILOH AND CULT IF INDIC [URIN] Stat 07/17/18 19:06 Communication Order [RC] STAT 07/17/18 19:20 RT Aerosol Therapy [RC] ASDIRECTED 07/17/18 20:51 Admission Status [Patient Status] [ADT] Stat - Assessment/Plan Last 24 Hours: My Active Orders 07/17/18 18:27 EKG 12 Lead [EKG Documentation Completion] [RC] STAT Sodium Chloride 0.9% [Saline Flush] 10 ml FLUSH ASDIRECTED PRN Sodium Chloride 0.9% [Saline Flush] 2.5 ml FLUSH ASDIRECTED PRN Blood Culture x2 Reflex Set [OM.PC] Stat Saline Lock Insert [OM.PC] Stat 07/17/18 18:38 CULTURE BLOOD [BC] Stat 07/17/18 18:59 CULTURE BLOOD [BC] Stat 07/17/18 19:00 UA RFX SHILOH AND CULT IF INDIC [URIN] Stat 07/17/18 19:06 Communication Order [RC] STAT 07/17/18 19:20 RT Aerosol Therapy [RC] ASDIRECTED 07/17/18 20:51 Admission Status [Patient Status] [ADT] Stat
[2018-07-17] MEDS ORDERED: Acetaminophen 500 MG Tab PO ONE (18:44)
[2018-07-17] MEDS ORDERED: Piperacillin/Tazobactam 3.375 GM in Sodium Chloride 0.9% 50 ML IV ONE (19:17)
[2018-07-17] MEDS ORDERED: Albuterol/Ipratropium 3.0-0.5 MG/3 ML Neb Soln NEB ONE (19:20)
--- NOTE | 2018-07-17 20:30 | CR ---
INDICATION: Transient alteration of awareness TECHNIQUE: Chest radiograph 1 view COMPARISON: None FINDINGS: Mediastinum: Surgical clips are noted over the right hilum without interval change. The heart silhouette is normal in size and morphology. Lung: Mild patchy density seen in the left lateral lung base. No sign of pleural effusion seen. No pneumothorax is identified. Musculoskeletal: Dislocation of the left reverse shoulder arthroplasty prosthesis is noted. Severe diffuse osteopenia is noted. Moderate osteoarthritis of the right glenohumeral joint is partially visualized. IMPRESSIONS: 1. Mild patchy density seen in the left lateral lung base. These findings can be seen with atelectasis and/or pneumonia. 2. Dislocation of the left reverse shoulder arthroplasty prosthesis is noted. Dictated by Omi Alvarez MD @ 07/17/2018 8:29:42 PM Dictated by: Omi Alvarez MD @ 07/17/2018 20:29:46 (Electronically Signed)
--- NOTE | 2018-07-17 20:39 | CT ---
INDICATION: Altered mental status COMPARISON: 06/22/2018 TECHNIQUE: CT examination of the head was performed with 3 mm thick axial sections without intravenous contrast. Images were obtained from the vertex of the skull through the skull base, and I examined the images with the brain and bone windows. Please note that all CT scans at this facility use dose modulation, iterative reconstruction, and/or weight-based dosing when appropriate to reduce radiation dose to as low as reasonably achievable. FINDINGS: There is no change in the rounded area of slightly increased density posterior to the atrium of the right lateral ventricle measuring approximately 9 millimeters in diameter. The absence of change compared to the study from 1 month ago argues against an acute hemorrhage and is more suggestive of a mass. The differential includes a hemorrhagic metastasis, a primary [employer] malignancy, a vascular malformation such as a cavernoma, or possibly cysticercosis. Correlation with MRI of the brain with and without contrast is suggested on a nonemergent basis. The previously seen mildly increased density along the right tentorium is less evident on today`s study and appears to be a variant of normal. Again seen is mild dilatation of the ventricles and sulci from age-appropriate atrophy. There is no change in mild periventricular hypodensity from age appropriate small vessel ischemia. 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 The visualized portions of the orbits are otherwise normal in appearance status post cataract surgery. There is prominent opacification of the right maxillary sinus, unchanged from the previous study representing prominent longstanding chronic sinusitis. The left maxillary sinus is clear but diminutive, consistent with previous chronic sinusitis. The right frontal sinus is prominently hypoplastic. The rest of the visualized paranasal sinuses and mastoids are clear. The osseous structures are normal in their appearance with no sign of abnormality in the skull base or calvarium. IMPRESSION: No change in mildly hyperdense 9 millimeter rounded structure located posterior to the atrium of the right lateral ventricle. Since this has not changed over the past month, it is unlikely to represent an acute hemorrhage, and is worrisome for a mass. Recommend nonemergent MR of the brain with and without contrast to further characterize this finding. No sign of acute injury to the brain. Stable mild, age-appropriate atrophy and small-vessel ischemic changes No change in prominent chronic right maxillary sinusitis which appears to be longstanding. 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 Please note that all CT scans at this facility use dose modulation, iterative reconstruction, and/or weight-based dosing when appropriate to reduce radiation dose to as low as reasonably achievable. Dictated by Mike Cifuentes MD @ Jul 17 2018 8:27PM Signed by Dr. Mike Cifuentes @ Jul 17 2018 8:37PM
[2018-07-17] MEDS ORDERED: Acetaminophen 325 MG Tab PO PRN (22:50)
[2018-07-17] MEDS ORDERED: Albuterol 0.083% 2.5 MG/3 ML Neb Soln NEB PRN (23:06)
[2018-07-17] MEDS ORDERED: Morphine 15 MG Tab PO PRN (23:29)
--- NOTE | 2018-07-18 00:08 | PCM.HP ---
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 Work up for bacteremia included MRI hand and foot, CT abdomen, pelvis, hip, TTE, extremity Doppler, and bone scan. CT reported stranding of right lower quadrant. Patient was discharged on oral vancomycin and recommended colonoscopy. Patient was doing okay at home until today he was lethargic and home health nurse noted fever. CXR performed in the ED reports patchy infiltrate in the left lateral lung base. Family reports no respiratory symptoms. - Related Data Allergies/Adverse Reactions: Allergies Allergy/AdvReac Type Severity Reaction Status Date / Time itraconazole [From Sporanox] Allergy Unknown Confusion Verified 07/17/18 18:24 levofloxacin [From Levaquin] Allergy Unknown Other Verified 07/17/18 18:24 Home Medications: Home Meds Finasteride 5 mg PO DAILY 01/11/16 [History] Fluticasone/Vilanterol [Breo Ellipta 200-25 Mcg INH] 1 inh INH DAILY 01/11/16 [ History] Gabapentin [Neurontin] 1,600 mg PO BID 01/11/16 [History] Testosterone [Androgel] 4 pump TOP DAILY 01/11/16 [History] Tiotropium [place] [Spiriva Respimat] 2 puff INH BID 01/12/16 [History] Morphine 15 mg PO Q6H PRN #10 tablet 01/15/16 [Rx] Albuterol Sulfate 2.5 mg IH DAILY 05/19/18 [History] Apixaban [Eliquis] 5 mg PO BID 05/19/18 [History] Diltiazem HCl [Diltiazem 24Hr ER] 240 mg PO DAILY 05/19/18 [History] Icosapent Ethyl [Vascepa] 1 gm PO DAILY 05/19/18 [History] Pantoprazole [ProTONIX] 40 mg PO DAILY 05/19/18 [History] Metoprolol Tartrate 50 mg PO BID 05/20/18 [History] Midodrine 2.5 mg PO BID 05/20/18 [History] traZODone HCl [Trazodone HCl] 50 mg PO BEDTIME 05/20/18 [History] Iron Polysaccharides Complex [Ferrex 150] 150 mg PO DAILY 30 Days #30 cap [Rx] Albuterol [Proventil Neb Soln] 2.5 mg NEB Q4HR PRN #15 neb 06/29/18 [Rx] Diclofenac Sodium [Voltaren 1% Gel] 1 applic TP QID #1 tube 06/29/18 [Rx] Vancomycin [First-Vancomycin 25 Compounding Kit] 125 mg PO Q6H 6 Days #1 bottle 07/13/18 [Rx] predniSONE [Prednisone] 20 mg PO DAILY #5 tablet 07/13/18 [Rx] Past Medical History HEENT History: Reports: Cataract Other HEENT History: dental fillings due to caries; recent tooth fracture Cardiovascular History: Reports: Afib, Cardiomyopathy, Heart Failure, Hypertension, NM Respiratory History: Reports: Asthma, Bronchitis, Recurrent, PE, Pneumonia, Recurrent, Other (See Below) Other Respiratory History: Chronic pulmonary aspergillosis, 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 No explantation- -they apparently just treated him with IV abx for months. - Past Surgical History Head Surgeries/Procedures: Reports: None HEENT Surgical History: Reports: Cataract Surgery Cardiovascular Surgical History: Reports: None Respiratory Surgical History: Reports: Lung Resection Other Respiratory Surgeries/Procedures: intubated last Feb 2018 and transfered to [facility] Surgical History: Reports: None Male Surgical History: Reports: None Endocrine Surgical History: Reports: None Neurological Surgical History: Reports: None Musculoskeletal Surgical History: Reports: Shoulder Surgery, Other (See Below) Other Musculoskeletal Surgeries/Procedures:: L shoulder and left hip surgery Oncologic Surgical History: Reports: None Dermatological Surgical History: Reports: None Social & Family History - Family History Family Medical History: Noncontributory - Tobacco Use Smoking Status *Q: Never Smoker Second Hand Smoke Exposure: No - Caffeine Use Caffeine Use: Reports: Soda - Recreational Drug Use Recreational Drug Use: No - Living Situation & Occupation Living situation: Reports: Single Occupation: Disabled H&P Review of Systems - Review of Systems: Review Of Systems: Unable To Obtain Exam - Exam Exam: See Below - Vital Signs Vital Signs: Last Vital Signs Temp 36.3 C 07/17/18 21:22 Pulse 81 07/17/18 21:22 Resp 20 07/17/18 21:22 BP 91/55 L 07/17/18 21:22 Pulse Ox 94 L 07/17/18 21:22 Weight: 67.585 kg - Exam General: Lethargic HEENT: Mucosa Moist & [place] Lungs: Clear to Auscultation, Normal Respiratory Effort Cardiovascular: Regular Rate, Regular Rhythm GI/Abdominal Exam: Soft, Non-Tender Extremities: Non-Tender, No Pedal Edema Skin: Warm, Dry, Intact - Patient Data Lab Results Last 24 hrs: Laboratory Results - last 24 hr 07/17/18 07/17/18 07/17/18 Range/Units 18:59 18:59 18:59 WBC 12.13 H (4.0-11.0) K/uL RBC 3.93 L (4.50-5.90) M/uL Hgb 10.6 L (13.0-17.0) g/dL Hct 34.3 L (38.0-50.0) % MCV 87.3 (80.0-98.0) fL MCH 27.0 (27.0-32.0) pg MCHC 30.9 L (31.0-37.0) g/dL RDW Std Deviation 61.4 (28.0-62.0) fl RDW Coeff of Tre 19 H (11.0-15.0) % Plt Count 287 (150-400) K/uL MPV 9.40 (7.40-12.00) fL Add Manual Diff YES Neutrophils % (Manual) 82 H (48.0-80.0) % Band Neutrophils % 4 % Lymphocytes % (Manual) 5 L (16.0-40.0) % Monocytes % (Manual) 8 (0.0-15.0) % Eosinophils % (Manual) 1 (0.0-7.0) % Nucleated RBC % 0.0 /100WBC Absolute Seg Neuts 9.9 H (1.4-5.7) Band Neutrophils # 0.5 Lymphocytes # (Manual) 0.6 (0.6-2.4) Monocytes # (Manual) 1.0 H (0.0-0.8) Eosinophils # (Manual) 0.1 (0.0-0.7) Nucleated RBCs # 0 K/uL Lactate 2.8 H (0.20-2.00) mmol/L Sodium 135 L (136-148) mmol/L Potassium 3.7 (3.5-5.1) mmol/L Chloride 99 (98-107) mmol/L Carbon Dioxide 25.3 (21.0-32.0) mmol/L BUN 16 (7.0-18.0) mg/dL Creatinine 1.3 (0.8-1.3) mg/dL Est Cr Clr Drug Dosing 59.92 mL/min Estimated GFR (MDRD) 56.7 ml/min Glucose 121 H (74-106) mg/dL Calcium 8.2 L (8.5-10.1) mg/dL Total Bilirubin 0.5 (0.2-1.0) mg/dL AST 73 H (15-37) IU/L ALT 65 H (14-63) IU/L Alkaline Phosphatase 78 (46-116) U/L Troponin I (0.000-0.056) ng/mL Total Protein 5.7 L (6.4-8.2) g/dL Albumin 1.5 L (3.4-5.0) g/dL Globulin 4.2 H (2.6-4.0) g/dL Albumin/Globulin Ratio 0.4 L (0.9-1.6) Urine Color Urine Appearance Urine pH (5.0-8.0) Ur Specific [place] (1.001-1.035) Urine Protein (NEGATIVE) mg/dL Urine Glucose (UA) (NEGATIVE) mg/dL Urine Ketones (NEGATIVE) mg/dL Urine Occult Blood (NEGATIVE) Urine Nitrite (NEGATIVE) Urine Bilirubin (NEGATIVE) Urine Urobilinogen (<2.0) EU/dL Ur Leukocyte Esterase (NEGATIVE) Urine RBC (0-2/HPF) Urine WBC (0-5/HPF) Ur Epithelial Cells (NONE-FEW) Calcium Oxalate Crystal (NEGATIVE) Urine Bacteria (NEGATIVE) Urine Mucus (NONE-MOD) 07/17/18 07/17/18 Range/Units 18:59 22:35 WBC (4.0-11.0) K/uL RBC (4.50-5.90) M/uL Hgb (13.0-17.0) g/dL Hct (38.0-50.0) % MCV (80.0-98.0) fL MCH (27.0-32.0) pg MCHC (31.0-37.0) g/dL RDW Std Deviation (28.0-62.0) fl RDW Coeff of Tre (11.0-15.0) % Plt Count (150-400) K/uL MPV (7.40-12.00) fL Add Manual Diff Neutrophils % (Manual) (48.0-80.0) % Band Neutrophils % % Lymphocytes % (Manual) (16.0-40.0) % Monocytes % (Manual) (0.0-15.0) % Eosinophils % (Manual) (0.0-7.0) % Nucleated RBC % /100WBC Absolute Seg Neuts (1.4-5.7) Band Neutrophils # Lymphocytes # (Manual) (0.6-2.4) Monocytes # (Manual) (0.0-0.8) Eosinophils # (Manual) (0.0-0.7) Nucleated RBCs # K/uL Lactate (0.20-2.00) mmol/L Sodium (136-148) mmol/L Potassium (3.5-5.1) mmol/L Chloride (98-107) mmol/L Carbon Dioxide (21.0-32.0) mmol/L BUN (7.0-18.0) mg/dL Creatinine (0.8-1.3) mg/dL Est Cr Clr Drug Dosing mL/min Estimated GFR (MDRD) ml/min Glucose (74-106) mg/dL Calcium (8.5-10.1) mg/dL Total Bilirubin (0.2-1.0) mg/dL AST (15-37) IU/L ALT (14-63) IU/L Alkaline Phosphatase (46-116) U/L Troponin I < 0.050 (0.000-0.056) ng/mL Total Protein (6.4-8.2) g/dL Albumin (3.4-5.0) g/dL Globulin (2.6-4.0) g/dL Albumin/Globulin Ratio (0.9-1.6) Urine Color YELLOW Urine Appearance CLEAR Urine pH 5.5 (5.0-8.0) Ur Specific [place] 1.020 (1.001-1.035) Urine Protein NEGATIVE (NEGATIVE) mg/dL Urine Glucose (UA) NEGATIVE (NEGATIVE) mg/dL Urine Ketones NEGATIVE (NEGATIVE) mg/dL Urine Occult Blood TRACE-INTACT H (NEGATIVE) Urine Nitrite NEGATIVE (NEGATIVE) Urine Bilirubin NEGATIVE (NEGATIVE) Urine Urobilinogen 0.2 (<2.0) EU/dL Ur Leukocyte Esterase NEGATIVE (NEGATIVE) Urine RBC 0-2 (0-2/HPF) Urine WBC 0-2 (0-5/HPF) Ur Epithelial Cells RARE (NONE-FEW) Calcium Oxalate Crystal FEW (NEGATIVE) Urine Bacteria 2+ H (NEGATIVE) Urine Mucus LIGHT (NONE-MOD) Result Diagrams: 07/17/18 18:59 07/17/18 18:59 Steve Results Last 24 hrs: Microbiology 07/17/18 18:38 Anaerobic Blood Culture - Final Blood - Venous Problem List Initiated/Reviewed/Updated: Yes Orders Last 24hrs: Active Orders 24 hr Category Date Time Status Admission Status [Patient Status] [ADT] Stat ADT 07/17/18 20:51 Active Communication Order [RC] STAT Care 07/17/18 19:06 Active EKG 12 Lead [EKG Documentation Completion] [RC] STAT Care 07/17/18 18:27 Active RT Aerosol Therapy [RC] ASDIRECTED Care 07/17/18 19:20 Active Regular Diet [DIET] Diet 07/18/18 Breakfast Active CULTURE BLOOD [BC] Stat Lab 07/17/18 18:38 Results CULTURE BLOOD [BC] Stat Lab 07/17/18 18:59 Received CULTURE SPUTUM + SMEAR [RM] Routine Lab 07/17/18 22:49 Ordered CULTURE URINE [RM] Routine Lab 07/17/18 22:35 Received LACTATE WITH REFLEX [BG] Routine Lab 07/18/18 01:00 Ordered LACTIC ACID,WHOLE BLOOD [BG] Routine Lab 07/17/18 23:12 Ordered Acetaminophen [Tylenol] Med 07/17/18 22:50 Active 650 mg PO Q6H PRN Albuterol [Proventil Neb Soln] Med 07/17/18 23:06 Active 2.5 mg NEB Q4H PRN Apixaban [Eliquis] Med 07/17/18 23:15 Active 5 mg PO BID Gabapentin [Neurontin] Med 07/17/18 23:15 Active 1,600 mg PO BID Midodrine Med 07/18/18 09:00 Ordered 2.5 mg PO BID Morphine Med 07/17/18 23:29 Ordered 15 mg PO Q6H PRN Pharmacy to Dose - Vancomycin Med 07/17/18 23:45 Ordered 1 dose .XX ASDIRECTED Sodium Chloride 0.9% [Normal Saline] 1,000 ml Med 07/17/18 23:00 Active IV ASDIRECTED Sodium Chloride 0.9% [Saline Flush] Med 07/17/18 18:27 Active 10 ml FLUSH ASDIRECTED PRN Sodium Chloride 0.9% [Saline Flush] Med 07/17/18 18:27 Active 2.5 ml FLUSH ASDIRECTED PRN Vancomycin [First-Vancomycin 25 Compounding Kit] Med 07/17/18 23:00 Active 125 mg PO Q6H Vancomycin [Vancocin] 1 gm Med 07/17/18 23:45 Active Sodium Chloride 0.9% [Normal Saline] 250 ml IV ONETIME Vancomycin [Vancocin] 1 gm Med 07/18/18 12:00 Active Sodium Chloride 0.9% [Normal Saline] 250 ml IV Q12H predniSONE Med 07/18/18 09:00 Ordered 20 mg PO DAILY Blood Culture x2 Reflex Set [OM.PC] Stat Oth 07/17/18 18:27 Ordered Saline Lock Insert [OM.PC] Stat Oth 07/17/18 18:27 Ordered Code Status [Resuscitation Status] Routine Resus Stat 07/17/18 22:50 Ordered Medication Orders Acetaminophen (Tylenol) 650 mg PO Q6H PRN PRN Reason: Pain/Fever Albuterol (Proventil Neb Soln) 2.5 mg NEB Q4H PRN PRN Reason: Shortness of Breath Apixaban (Eliquis) 5 mg PO BID DANIELITO Gabapentin (Neurontin) 1,600 mg PO BID DANIELITO Sodium Chloride (Normal Saline) 1,000 mls @ 125 mls/hr IV ASDIRECTED [facility] Vancomycin HCl 1 gm/ Sodium (Chloride) 250 mls @ 166 mls/hr IV ONETIME ONE Stop: 07/18/18 01:15 Vancomycin HCl 1 gm/ Sodium (Chloride) 250 mls @ 166 mls/hr IV Q12H DANIELITO Morphine Sulfate (Morphine) 15 mg PO Q6H PRN PRN Reason: Pain Non-Formulary Medication (Midodrine) 2.5 mg PO BID DANIELITO Prednisone (Prednisone) 20 mg PO DAILY [facility] Sodium Chloride (Saline Flush) 10 ml FLUSH ASDIRECTED PRN PRN Reason: Keep Vein Open Sodium Chloride (Saline Flush) 2.5 ml FLUSH ASDIRECTED PRN PRN Reason: Keep Vein Open Vancomycin HCl (First-Vancomycin 25 Compounding Kit) 125 mg PO Q6H DANIELITO Vancomycin HCl (Pharmacy To Dose - Vancomycin) 1 dose .XX ASDIRECTED [facility] Assessment/Plan Comment:: 58 yo male admitted with fever, possible gram negative [place] respiratory infection with broad spectrum antibiotics. Cultures pending.
[2018-07-18] MEDS: Sodium Chloride 0.9% 1,000 ML IV SCH ×3 (00:21→23:26)
[2018-07-18] MEDS: Apixaban 5 MG Tab PO SCH ×3 (00:22→20:16)
[2018-07-18] MEDS: Gabapentin 800 MG Tab PO SCH ×3 (00:22→20:15)
[2018-07-18] MEDS: Vancomycin 25 MG/ML Compounding Kit PO SCH ×5 (00:38→23:27)
[2018-07-18] MEDS: Piperacillin/Tazobactam 4.5 GM in Sodium Chloride 0.9% 100 ML IV SCH ×4 (02:42→20:09)
--- NOTE | 2018-07-18 08:27 | PCM.PN ---
- Patient Data Vitals - Most Recent: Last Vital Signs Temp 36.7 C 07/18/18 07:30 Pulse 89 07/18/18 07:30 Resp 18 07/18/18 07:30 BP 107/76 07/18/18 07:30 Pulse Ox 96 07/18/18 07:30 Weight - Most Recent: 67.585 kg I&O - Last 24 Hours: Intake & Output 07/17/18 07/18/18 07/18/18 22:59 06:59 14:59 Intake Total 250 Output Total 860 Balance -610 Lab Results Last 24 Hours: Laboratory Results - last 24 hr 07/17/18 07/17/18 07/17/18 Range/Units 18:59 18:59 18:59 WBC 12.13 H (4.0-11.0) K/uL RBC 3.93 L (4.50-5.90) M/uL Hgb 10.6 L (13.0-17.0) g/dL Hct 34.3 L (38.0-50.0) % MCV 87.3 (80.0-98.0) fL MCH 27.0 (27.0-32.0) pg MCHC 30.9 L (31.0-37.0) g/dL RDW Std Deviation 61.4 (28.0-62.0) fl RDW Coeff of Tre 19 H (11.0-15.0) % Plt Count 287 (150-400) K/uL MPV 9.40 (7.40-12.00) fL Add Manual Diff YES Neutrophils % (Manual) 82 H (48.0-80.0) % Band Neutrophils % 4 % Lymphocytes % (Manual) 5 L (16.0-40.0) % Monocytes % (Manual) 8 (0.0-15.0) % Eosinophils % (Manual) 1 (0.0-7.0) % Nucleated RBC % 0.0 /100WBC Absolute Seg Neuts 9.9 H (1.4-5.7) Band Neutrophils # 0.5 Lymphocytes # (Manual) 0.6 (0.6-2.4) Monocytes # (Manual) 1.0 H (0.0-0.8) Eosinophils # (Manual) 0.1 (0.0-0.7) Nucleated RBCs # 0 K/uL Lactate 2.8 H (0.20-2.00) mmol/L Sodium 135 L (136-148) mmol/L Potassium 3.7 (3.5-5.1) mmol/L Chloride 99 (98-107) mmol/L Carbon Dioxide 25.3 (21.0-32.0) mmol/L BUN 16 (7.0-18.0) mg/dL Creatinine 1.3 (0.8-1.3) mg/dL Est Cr Clr Drug Dosing 59.92 mL/min Estimated GFR (MDRD) 56.7 ml/min Glucose 121 H (74-106) mg/dL Calcium 8.2 L (8.5-10.1) mg/dL Total Bilirubin 0.5 (0.2-1.0) mg/dL AST 73 H (15-37) IU/L ALT 65 H (14-63) IU/L Alkaline Phosphatase 78 (46-116) U/L Troponin I (0.000-0.056) ng/mL Total Protein 5.7 L (6.4-8.2) g/dL Albumin 1.5 L (3.4-5.0) g/dL Globulin 4.2 H (2.6-4.0) g/dL Albumin/Globulin Ratio 0.4 L (0.9-1.6) Urine Color Urine Appearance Urine pH (5.0-8.0) Ur Specific [place] (1.001-1.035) Urine Protein (NEGATIVE) mg/dL Urine Glucose (UA) (NEGATIVE) mg/dL Urine Ketones (NEGATIVE) mg/dL Urine Occult Blood (NEGATIVE) Urine Nitrite (NEGATIVE) Urine Bilirubin (NEGATIVE) Urine Urobilinogen (<2.0) EU/dL Ur Leukocyte Esterase (NEGATIVE) Urine RBC (0-2/HPF) Urine WBC (0-5/HPF) Ur Epithelial Cells (NONE-FEW) Calcium Oxalate Crystal (NEGATIVE) Urine Bacteria (NEGATIVE) Urine Mucus (NONE-MOD) 07/17/18 07/17/18 07/18/18 Range/Units 18:59 22:35 01:25 WBC (4.0-11.0) K/uL RBC (4.50-5.90) M/uL Hgb (13.0-17.0) g/dL Hct (38.0-50.0) % MCV (80.0-98.0) fL MCH (27.0-32.0) pg MCHC (31.0-37.0) g/dL RDW Std Deviation (28.0-62.0) fl RDW Coeff of Tre (11.0-15.0) % Plt Count (150-400) K/uL MPV (7.40-12.00) fL Add Manual Diff Neutrophils % (Manual) (48.0-80.0) % Band Neutrophils % % Lymphocytes % (Manual) (16.0-40.0) % Monocytes % (Manual) (0.0-15.0) % Eosinophils % (Manual) (0.0-7.0) % Nucleated RBC % /100WBC Absolute Seg Neuts (1.4-5.7) Band Neutrophils # Lymphocytes # (Manual) (0.6-2.4) Monocytes # (Manual) (0.0-0.8) Eosinophils # (Manual) (0.0-0.7) Nucleated RBCs # K/uL Lactate 1.0 (0.20-2.00) mmol/L Sodium (136-148) mmol/L Potassium (3.5-5.1) mmol/L Chloride (98-107) mmol/L Carbon Dioxide (21.0-32.0) mmol/L BUN (7.0-18.0) mg/dL Creatinine (0.8-1.3) mg/dL Est Cr Clr Drug Dosing mL/min Estimated GFR (MDRD) ml/min Glucose (74-106) mg/dL Calcium (8.5-10.1) mg/dL Total Bilirubin (0.2-1.0) mg/dL AST (15-37) IU/L ALT (14-63) IU/L Alkaline Phosphatase (46-116) U/L Troponin I < 0.050 (0.000-0.056) ng/mL Total Protein (6.4-8.2) g/dL Albumin (3.4-5.0) g/dL Globulin (2.6-4.0) g/dL Albumin/Globulin Ratio (0.9-1.6) Urine Color YELLOW Urine Appearance CLEAR Urine pH 5.5 (5.0-8.0) Ur Specific [place] 1.020 (1.001-1.035) Urine Protein NEGATIVE (NEGATIVE) mg/dL Urine Glucose (UA) NEGATIVE (NEGATIVE) mg/dL Urine Ketones NEGATIVE (NEGATIVE) mg/dL Urine Occult Blood TRACE-INTACT H (NEGATIVE) Urine Nitrite NEGATIVE (NEGATIVE) Urine Bilirubin NEGATIVE (NEGATIVE) Urine Urobilinogen 0.2 (<2.0) EU/dL Ur Leukocyte Esterase NEGATIVE (NEGATIVE) Urine RBC 0-2 (0-2/HPF) Urine WBC 0-2 (0-5/HPF) Ur Epithelial Cells RARE (NONE-FEW) Calcium Oxalate Crystal FEW (NEGATIVE) Urine Bacteria 2+ H (NEGATIVE) Urine Mucus LIGHT (NONE-MOD) Steve Results Last 24 Hours: Microbiology 07/17/18 18:38 Anaerobic Blood Culture - Final Blood - Venous Med Orders - Current: Current Medications Acetaminophen (Tylenol) 650 mg PO Q6H PRN PRN Reason: Pain/Fever Albuterol (Proventil Neb Soln) 2.5 mg NEB Q4H PRN PRN Reason: Shortness of Breath Apixaban (Eliquis) 5 mg PO BID ON LICENSE OF [facility] Last Admin: 07/18/18 00:22 Dose: Not Given Gabapentin (Neurontin) 1,600 mg PO BID ON LICENSE OF [facility] Last Admin: 07/18/18 00:22 Dose: Not Given Sodium Chloride (Normal Saline) 1,000 mls @ 125 mls/hr IV ASDIRECTED ON LICENSE OF [facility] Last Admin: 07/18/18 00:21 Dose: 125 mls/hr Vancomycin HCl 1 gm/ Sodium (Chloride) 250 mls @ 166 mls/hr IV Q12H ON LICENSE OF [facility] Piperacillin Sod/Tazobactam (Sod 4.5 gm/ Sodium Chloride) 100 mls @ 100 mls/hr IV Q6H ON LICENSE OF [facility] Last Admin: 07/18/18 07:30 Dose: 100 mls/hr Aztreonam 2 gm/ Sodium (Chloride) 50 mls @ 100 mls/hr IV Q8H ON LICENSE OF [facility] Last Admin: 07/18/18 04:03 Dose: 100 mls/hr Midodrine (Midodrine) 2.5 mg PO BID ON LICENSE OF [facility] Prednisone (Prednisone) 20 mg PO DAILY ON LICENSE OF [facility] Sodium Chloride (Saline Flush) 10 ml FLUSH ASDIRECTED PRN PRN Reason: Keep Vein Open Sodium Chloride (Saline Flush) 2.5 ml FLUSH ASDIRECTED PRN PRN Reason: Keep Vein Open Vancomycin HCl (First-Vancomycin 25 Compounding Kit) 125 mg PO Q6H ON LICENSE OF [facility] Last Admin: 07/18/18 05:48 Dose: 125 mg Vancomycin HCl (Pharmacy To Dose - Vancomycin) 1 dose .XX ASDIRECTED ON LICENSE OF [facility] Discontinued Medications Acetaminophen (Tylenol Extra Strength) 1,000 mg PO ONETIME ONE Stop: 07/17/18 18:45 Last Admin: 07/17/18 18:58 Dose: 1,000 mg Albuterol/Ipratropium (Duoneb 3.0-0.5 Mg/3 Ml) 3 ml NEB ONETIME ONE Stop: 07/17/18 19:21 Last Admin: 07/17/18 19:32 Dose: 3 ml Sodium Chloride (Normal Saline) 1,000 mls @ 999 mls/hr IV STAT ONE Stop: 07/17/18 19:36 Last Admin: 07/17/18 18:54 Dose: 999 mls/hr Piperacillin Sod/Tazobactam (Sod 3.375 gm/ Sodium Chloride) 50 mls @ 100 mls/ hr IV ONETIME ONE Stop: 07/17/18 19:46 Last Admin: 07/17/18 19:36 Dose: 100 mls/hr Vancomycin HCl 1 gm/ Sodium (Chloride) 250 mls @ 250 mls/hr IV ONETIME ONE Stop: 07/17/18 20:16 Last Admin: 07/17/18 20:15 Dose: 250 mls/hr Vancomycin HCl 1 gm/ Sodium (Chloride) 250 mls @ 166 mls/hr IV ONETIME ONE Stop: 07/18/18 01:15 Last Admin: 07/18/18 00:41 Dose: 166 mls/hr Aztreonam 2 gm/ Sodium (Chloride) 50 mls @ 100 mls/hr IV Q8H ON LICENSE OF [facility] Last Admin: 07/18/18 01:58 Dose: Not Given Morphine Sulfate (Morphine) 15 mg PO Q6H PRN PRN Reason: Pain - Plan Plan:: 58 yo male admitted with fever, possible gram negative [place]ip[place] respiratory infection with broad spectrum antibiotics. Cultures pending.
[2018-07-18] MEDS: Midodrine 5 MG Tab PO SCH ×2 (10:01→20:15)
[2018-07-18] MEDS: predniSONE 20 MG Tab PO SCH (10:01)
--- NOTE | 2018-07-18 11:58 | CT ---
INDICATION: Fever TECHNIQUE: CT chest, abdomen and pelvis acquired without contrast. COMPARISON: Chest x-ray July 17, 2018. CT abdomen pelvis July 05, 2018. FINDINGS: CHEST: Cardiovascular structures: Heart size is normal. Thoracic aorta and main pulmonary artery are normal in caliber. Mediastinum and pham: No mass or adenopathy. Lungs and pleura: Clusters of tree-in-bud nodular opacities are in the right lower lobe. Nodular scarring is present in the medial right upper lobe along the mediastinum as demonstrated on images 20 9-35. The nodular component measures 20 x 14 mm on image 29 in this area. No other nodules or infiltrates. There is severe bronchiectasis and moderate emphysema. Pleural spaces are clear. However, there are multiple nodular soft tissue lesions within the subpleural fat in the paraspinous region as visualized on the axial series 201 images 55-60. Chest wall and axilla: No mass or adenopathy. Bones: There are postoperative changes in the left shoulder with a fair amount of soft tissue edema in this region. Severe chronic compression fractures are present at multiple levels in the mid and lower thoracic spine with retropulsion at the level of T11. IMPRESSION: 1. Numerous small tree-in-bud nodular opacities in the right lower lobe consistent with an infectious or inflammatory process. Atypical infection such as mycobacterium can have this appearance. 2. Severe bronchiectasis. 3. Indeterminate nodular scarring abutting the mediastinum in the right upper lobe. 4. Indeterminate soft tissue nodules within the paraspinal subpleural fat. Please note that all CT scans at this facility use dose modulation, iterative reconstruction, and/or weight-based dosing when appropriate to reduce radiation dose to as low as reasonably achievable. Dictated by Remberto Lozano MD @ Jul 18 2018 11:34AM Signed by Dr. Remberto Lozano @ Jul 18 2018 11:55AM
--- NOTE | 2018-07-18 12:05 | PCM.PN ---
- General Info Date of Service: 07/18/18 - Review of Systems Systems Review Comment:: feeling better more alert, reports pain in back shoulders and hips since his discharge. - Patient Data Vitals - Most Recent: Last Vital Signs Temp 36.4 C 07/18/18 11:36 Pulse 76 07/18/18 11:36 Resp 16 07/18/18 11:36 BP 104/67 07/18/18 11:36 Pulse Ox 99 07/18/18 11:36 Weight - Most Recent: 67.585 kg I&O - Last 24 Hours: Intake & Output 07/17/18 07/18/18 07/18/18 22:59 06:59 14:59 Intake Total 250 Output Total 860 Balance -610 Lab Results Last 24 Hours: Laboratory Results - last 24 hr 07/17/18 07/17/18 07/17/18 Range/Units 18:59 18:59 18:59 WBC 12.13 H (4.0-11.0) K/uL RBC 3.93 L (4.50-5.90) M/uL Hgb 10.6 L (13.0-17.0) g/dL Hct 34.3 L (38.0-50.0) % MCV 87.3 (80.0-98.0) fL MCH 27.0 (27.0-32.0) pg MCHC 30.9 L (31.0-37.0) g/dL RDW Std Deviation 61.4 (28.0-62.0) fl RDW Coeff of Tre 19 H (11.0-15.0) % Plt Count 287 (150-400) K/uL MPV 9.40 (7.40-12.00) fL Add Manual Diff YES Neutrophils % (Manual) 82 H (48.0-80.0) % Band Neutrophils % 4 % Lymphocytes % (Manual) 5 L (16.0-40.0) % Monocytes % (Manual) 8 (0.0-15.0) % Eosinophils % (Manual) 1 (0.0-7.0) % Nucleated RBC % 0.0 /100WBC Absolute Seg Neuts 9.9 H (1.4-5.7) Band Neutrophils # 0.5 Lymphocytes # (Manual) 0.6 (0.6-2.4) Monocytes # (Manual) 1.0 H (0.0-0.8) Eosinophils # (Manual) 0.1 (0.0-0.7) Nucleated RBCs # 0 K/uL Lactate 2.8 H (0.20-2.00) mmol/L Sodium 135 L (136-148) mmol/L Potassium 3.7 (3.5-5.1) mmol/L Chloride 99 (98-107) mmol/L Carbon Dioxide 25.3 (21.0-32.0) mmol/L BUN 16 (7.0-18.0) mg/dL Creatinine 1.3 (0.8-1.3) mg/dL Est Cr Clr Drug Dosing 59.92 mL/min Estimated GFR (MDRD) 56.7 ml/min Glucose 121 H (74-106) mg/dL Calcium 8.2 L (8.5-10.1) mg/dL Total Bilirubin 0.5 (0.2-1.0) mg/dL AST 73 H (15-37) IU/L ALT 65 H (14-63) IU/L Alkaline Phosphatase 78 (46-116) U/L Troponin I (0.000-0.056) ng/mL Total Protein 5.7 L (6.4-8.2) g/dL Albumin 1.5 L (3.4-5.0) g/dL Globulin 4.2 H (2.6-4.0) g/dL Albumin/Globulin Ratio 0.4 L (0.9-1.6) Urine Color Urine Appearance Urine pH (5.0-8.0) Ur Specific [place] (1.001-1.035) Urine Protein (NEGATIVE) mg/dL Urine Glucose (UA) (NEGATIVE) mg/dL Urine Ketones (NEGATIVE) mg/dL Urine Occult Blood (NEGATIVE) Urine Nitrite (NEGATIVE) Urine Bilirubin (NEGATIVE) Urine Urobilinogen (<2.0) EU/dL Ur Leukocyte Esterase (NEGATIVE) Urine RBC (0-2/HPF) Urine WBC (0-5/HPF) Ur Epithelial Cells (NONE-FEW) Calcium Oxalate Crystal (NEGATIVE) Urine Bacteria (NEGATIVE) Urine Mucus (NONE-MOD) 07/17/18 07/17/18 07/18/18 Range/Units 18:59 22:35 01:25 WBC (4.0-11.0) K/uL RBC (4.50-5.90) M/uL Hgb (13.0-17.0) g/dL Hct (38.0-50.0) % MCV (80.0-98.0) fL MCH (27.0-32.0) pg MCHC (31.0-37.0) g/dL RDW Std Deviation (28.0-62.0) fl RDW Coeff of Tre (11.0-15.0) % Plt Count (150-400) K/uL MPV (7.40-12.00) fL Add Manual Diff Neutrophils % (Manual) (48.0-80.0) % Band Neutrophils % % Lymphocytes % (Manual) (16.0-40.0) % Monocytes % (Manual) (0.0-15.0) % Eosinophils % (Manual) (0.0-7.0) % Nucleated RBC % /100WBC Absolute Seg Neuts (1.4-5.7) Band Neutrophils # Lymphocytes # (Manual) (0.6-2.4) Monocytes # (Manual) (0.0-0.8) Eosinophils # (Manual) (0.0-0.7) Nucleated RBCs # K/uL Lactate 1.0 (0.20-2.00) mmol/L Sodium (136-148) mmol/L Potassium (3.5-5.1) mmol/L Chloride (98-107) mmol/L Carbon Dioxide (21.0-32.0) mmol/L BUN (7.0-18.0) mg/dL Creatinine (0.8-1.3) mg/dL Est Cr Clr Drug Dosing mL/min Estimated GFR (MDRD) ml/min Glucose (74-106) mg/dL Calcium (8.5-10.1) mg/dL Total Bilirubin (0.2-1.0) mg/dL AST (15-37) IU/L ALT (14-63) IU/L Alkaline Phosphatase (46-116) U/L Troponin I < 0.050 (0.000-0.056) ng/mL Total Protein (6.4-8.2) g/dL Albumin (3.4-5.0) g/dL Globulin (2.6-4.0) g/dL Albumin/Globulin Ratio (0.9-1.6) Urine Color YELLOW Urine Appearance CLEAR Urine pH 5.5 (5.0-8.0) Ur Specific [place] 1.020 (1.001-1.035) Urine Protein NEGATIVE (NEGATIVE) mg/dL Urine Glucose (UA) NEGATIVE (NEGATIVE) mg/dL Urine Ketones NEGATIVE (NEGATIVE) mg/dL Urine Occult Blood TRACE-INTACT H (NEGATIVE) Urine Nitrite NEGATIVE (NEGATIVE) Urine Bilirubin NEGATIVE (NEGATIVE) Urine Urobilinogen 0.2 (<2.0) EU/dL Ur Leukocyte Esterase NEGATIVE (NEGATIVE) Urine RBC 0-2 (0-2/HPF) Urine WBC 0-2 (0-5/HPF) Ur Epithelial Cells RARE (NONE-FEW) Calcium Oxalate Crystal FEW (NEGATIVE) Urine Bacteria 2+ H (NEGATIVE) Urine Mucus LIGHT (NONE-MOD) Steve Results Last 24 Hours: Microbiology 07/17/18 18:38 Anaerobic Blood Culture - Final Blood - Venous Med Orders - Current: Current Medications Acetaminophen (Tylenol) 650 mg PO Q6H PRN PRN Reason: Pain/Fever Albuterol (Proventil Neb Soln) 2.5 mg NEB Q4H PRN PRN Reason: Shortness of Breath Apixaban (Eliquis) 5 mg PO BID [facility] Last Admin: 07/18/18 10:01 Dose: 5 mg Gabapentin (Neurontin) 1,600 mg PO BID [facility] Last Admin: 07/18/18 10:01 Dose: 1,600 mg Sodium Chloride (Normal Saline) 1,000 mls @ 125 mls/hr IV ASDIRECTED [facility] Last Admin: 07/18/18 11:15 Dose: 125 mls/hr Vancomycin HCl 1 gm/ Sodium (Chloride) 250 mls @ 166 mls/hr IV Q12H [facility] Piperacillin Sod/Tazobactam (Sod 4.5 gm/ Sodium Chloride) 100 mls @ 100 mls/hr IV Q6H [facility] Last Admin: 07/18/18 07:30 Dose: 100 mls/hr Aztreonam 2 gm/ Sodium (Chloride) 50 mls @ 100 mls/hr IV Q8H [facility] Last Admin: 07/18/18 11:20 Dose: 100 mls/hr Midodrine (Midodrine) 2.5 mg PO BID [facility] Last Admin: 07/18/18 10:01 Dose: 2.5 mg Prednisone (Prednisone) 20 mg PO DAILY [facility] Last Admin: 07/18/18 10:01 Dose: 20 mg Sodium Chloride (Saline Flush) 10 ml FLUSH ASDIRECTED PRN PRN Reason: Keep Vein Open Sodium Chloride (Saline Flush) 2.5 ml FLUSH ASDIRECTED PRN PRN Reason: Keep Vein Open Vancomycin HCl (First-Vancomycin 25 Compounding Kit) 125 mg PO Q6H [facility] Last Admin: 07/18/18 11:20 Dose: 125 mg Vancomycin HCl (Pharmacy To Dose - Vancomycin) 1 dose .XX ASDIRECTED [facility] Discontinued Medications Acetaminophen (Tylenol Extra Strength) 1,000 mg PO ONETIME ONE Stop: 07/17/18 18:45 Last Admin: 07/17/18 18:58 Dose: 1,000 mg Albuterol/Ipratropium (Duoneb 3.0-0.5 Mg/3 Ml) 3 ml NEB ONETIME ONE Stop: 07/17/18 19:21 Last Admin: 07/17/18 19:32 Dose: 3 ml Sodium Chloride (Normal Saline) 1,000 mls @ 999 mls/hr IV STAT ONE Stop: 07/17/18 19:36 Last Admin: 07/17/18 18:54 Dose: 999 mls/hr Piperacillin Sod/Tazobactam (Sod 3.375 gm/ Sodium Chloride) 50 mls @ 100 mls/ hr IV ONETIME ONE Stop: 07/17/18 19:46 Last Admin: 07/17/18 19:36 Dose: 100 mls/hr Vancomycin HCl 1 gm/ Sodium (Chloride) 250 mls @ 250 mls/hr IV ONETIME ONE Stop: 07/17/18 20:16 Last Admin: 07/17/18 20:15 Dose: 250 mls/hr Vancomycin HCl 1 gm/ Sodium (Chloride) 250 mls @ 166 mls/hr IV ONETIME ONE Stop: 07/18/18 01:15 Last Admin: 07/18/18 00:41 Dose: 166 mls/hr Aztreonam 2 gm/ Sodium (Chloride) 50 mls @ 100 mls/hr IV Q8H [facility] Last Admin: 07/18/18 01:58 Dose: Not Given Morphine Sulfate (Morphine) 15 mg PO Q6H PRN PRN Reason: Pain - Problem List Review Problem List Initiated/Reviewed/Updated: Yes - My Orders Last 24 Hours: My Active Orders 07/17/18 22:35 CULTURE URINE [RM] Routine 07/17/18 22:49 CULTURE SPUTUM + SMEAR [RM] Routine 07/17/18 22:50 Acetaminophen [Tylenol] 650 mg PO Q6H PRN Code Status [Resuscitation Status] Routine 07/17/18 23:00 Sodium Chloride 0.9% [Normal Saline] 1,000 ml IV ASDIRECTED Vancomycin [First-Vancomycin 25 Compounding Kit] 125 mg PO Q6H 07/17/18 23:06 Albuterol [Proventil Neb Soln] 2.5 mg NEB Q4H PRN 07/17/18 23:15 Apixaban [Eliquis] 5 mg PO BID Gabapentin [Neurontin] 1,600 mg PO BID 07/17/18 23:45 Pharmacy to Dose - Vancomycin 1 dose .XX ASDIRECTED 07/18/18 02:00 Piperacillin/Tazobactam [Piperacil-Tazobact] 4.5 gm Sodium Chloride 0.9% [ Normal Saline] 100 ml IV Q6H 07/18/18 03:00 Aztreonam [Azactam] 2 gm Sodium Chloride 0.9% [Normal Saline] 50 ml IV Q8H 07/18/18 09:00 Midodrine 2.5 mg PO BID predniSONE 20 mg PO DAILY 07/18/18 12:00 Vancomycin [Vancocin] 1 gm Sodium Chloride 0.9% [Normal Saline] 250 ml IV Q12H 07/18/18 Breakfast Regular Diet [DIET] - Plan Plan:: 58 yo male admitted with fever, possible gram negative mariposa respiratory infection with broad spectrum antibiotics. Cultures pending. Will continue vancomycin, Zosyn and aztreonam. Patient is also on PO vancomycin for C.diff colitis. We will Scan chest and abdomen for source of fever. We will continue Eliquis and rate controlling medications for atrial fibrillation.
--- NOTE | 2018-07-18 12:06 | CT ---
INDICATION: Fever TECHNIQUE: CT abdomen and pelvis without contrast. COMPARISON: July 05, 2018. FINDINGS: Liver: Normal in size and attenuation. No masses. Gallbladder and bile ducts: No stones or inflammation. No biliary dilatation. Pancreas: Unremarkable. No mass or inflammation. Spleen: Normal in size. No masses. Adrenal glands: Normal in size. No nodules. Kidneys: Left kidney is absent. Solitary 5 mm nonobstructive stone is in the right kidney. No hydronephrosis. GI tract: There is severe wall edema involving the majority of the colon. Mild sigmoid diverticulosis. Suture line is present at the rectosigmoid junction. Small bowel and appendix are normal. Vasculature: IVC filter is present. Abdominal aorta is normal in caliber. Lymph nodes: No lymphadenopathy. Abdominal wall/Omentum/Peritoneum: Unremarkable. No sign of mass or infiltration. No free air or significant free fluid. Pelvis: There is a stone in the base of the urinary bladder which was not present on the prior exam. Pelvis is otherwise unremarkable. Bones: No acute findings or changes. IMPRESSION: 1. New severe wall edema throughout much of the colon consistent with infectious or inflammatory colitis. There is pattern can be seen with C difficile colitis. 2. One of 2 stones has passed into the bladder from the right kidney since the prior exam. The 2nd stone remains in the right kidney. 3. Remainder of the exam is unremarkable and unchanged. Please note that all CT scans at this facility use dose modulation, iterative reconstruction, and/or weight-based dosing when appropriate to reduce radiation dose to as low as reasonably achievable. Dictated by Remberto Lozano MD @ Jul 18 2018 11:34AM Signed by Dr. Remberto Lozano @ Jul 18 2018 12:06PM
[2018-07-18] MEDS: Morphine 15 MG Tab PO PRN (19:03)
[2018-07-18] MEDS: Metoprolol Tartrate 50 MG Tab PO SCH (20:14)
[2018-07-18] MEDS ORDERED: HYDROmorphone 2 MG/ML SDV IVPUSH PRN (22:33)
[2018-07-18] MEDS: HYDROmorphone 1 MG/ML Syringe IVPUSH PRN (23:52)
[2018-07-19] MEDS: Piperacillin/Tazobactam 4.5 GM in Sodium Chloride 0.9% 100 ML IV SCH ×3 (01:40→14:25)
[2018-07-19] MEDS: HYDROmorphone 1 MG/ML Syringe IVPUSH PRN ×4 (03:11→19:38)
[2018-07-19] MEDS: Vancomycin 25 MG/ML Compounding Kit PO SCH ×4 (05:04→22:24)
[2018-07-19] MEDS: Morphine 15 MG Tab PO PRN ×2 (05:04→11:20)
[2018-07-19 06:17] LABS: CHLORIDE,CL 109 mmol/L (98-107); SODIUM,NA 142 mmol/L (136-148)
[2018-07-19] MEDS: Midodrine 5 MG Tab PO SCH ×2 (08:46→22:22)
[2018-07-19] MEDS: Apixaban 5 MG Tab PO SCH ×2 (08:46→22:21)
[2018-07-19] MEDS: Metoprolol Tartrate 50 MG Tab PO SCH ×2 (08:47→22:21)
[2018-07-19] MEDS: Gabapentin 800 MG Tab PO SCH ×2 (08:50→22:21)
[2018-07-19] MEDS: Diltiazem 120 MG Cap.CD PO SCH (08:50)
[2018-07-19] MEDS: predniSONE 20 MG Tab PO SCH (08:50)
[2018-07-19] MEDS: Sodium Chloride 0.9% 1,000 ML IV SCH (11:15)
[2018-07-19] MEDS: Potassium Chloride 20 MEQ Tab.ER PO SCH ×2 (11:20→22:22)
--- NOTE | 2018-07-19 15:04 | PCM.PN ---
- General Info Date of Service: 07/19/18 Subjective Update: The patient is stable, continue to have diarrhea, complaining that the Dilaudid at its current dose is not helping him with his pain. - Patient Data Vitals - Most Recent: Last Vital Signs Temp 36.9 C 07/19/18 11:34 Pulse 94 07/19/18 11:34 Resp 16 07/19/18 11:34 BP 102/67 07/19/18 11:34 Pulse Ox 94 L 07/19/18 11:34 Weight - Most Recent: 67.585 kg I&O - Last 24 Hours: Intake & Output 07/18/18 07/19/18 07/19/18 22:59 06:59 14:59 Intake Total 500 1686 Output Total 250 400 Balance 250 1286 Lab Results Last 24 Hours: Laboratory Results - last 24 hr 07/17/18 07/17/18 07/19/18 Range/Units 18:59 18:59 05:15 WBC 12.13 H 7.22 (4.0-11.0) K/uL RBC 3.93 L 3.10 L (4.50-5.90) M/uL Hgb 10.6 L 8.2 L (13.0-17.0) g/dL Hct 34.3 L 27.2 L (38.0-50.0) % MCV 87.3 87.7 (80.0-98.0) fL MCH 27.0 26.5 L (27.0-32.0) pg MCHC 30.9 L 30.1 L (31.0-37.0) g/dL RDW Std Deviation 61.4 62.5 H (28.0-62.0) fl RDW Coeff of Tre 19 H 19 H (11.0-15.0) % Plt Count 287 270 (150-400) K/uL MPV 9.40 9.40 (7.40-12.00) fL Neut % (Auto) 71.0 (48.0-80.0) % Lymph % (Auto) 16.3 (16.0-40.0) % [place] % (Auto) 11.8 (0.0-15.0) % Eos % (Auto) 0.6 (0.0-7.0) % Baso % (Auto) 0.3 (0.0-1.5) % Neut # (Auto) 5.1 (1.4-5.7) K/uL Lymph # (Auto) 1.2 (0.6-2.4) K/uL [place] # (Auto) 0.9 H (0.0-0.8) K/uL Eos # (Auto) 0.0 (0.0-0.7) K/uL Baso # (Auto) 0.0 (0.0-0.1) K/uL Add Manual Diff YES Neutrophils % (Manual) 82 H (48.0-80.0) % Band Neutrophils % 4 % Lymphocytes % (Manual) 5 L (16.0-40.0) % Monocytes % (Manual) 8 (0.0-15.0) % Eosinophils % (Manual) 1 (0.0-7.0) % Nucleated RBC % 0.0 0.0 /100WBC Absolute Seg Neuts 9.9 H (1.4-5.7) Band Neutrophils # 0.5 Lymphocytes # (Manual) 0.6 (0.6-2.4) Monocytes # (Manual) 1.0 H (0.0-0.8) Eosinophils # (Manual) 0.1 (0.0-0.7) Nucleated RBCs # 0 0 K/uL Sodium 135 L (136-148) mmol/L Potassium 3.7 (3.5-5.1) mmol/L Chloride 99 (98-107) mmol/L Carbon Dioxide 25.3 (21.0-32.0) mmol/L BUN 16 (7.0-18.0) mg/dL Creatinine 1.3 (0.8-1.3) mg/dL Est Cr Clr Drug Dosing 59.92 mL/min Estimated GFR (MDRD) 56.7 ml/min Glucose 121 H (74-106) mg/dL Calcium 8.2 L (8.5-10.1) mg/dL Total Bilirubin 0.5 (0.2-1.0) mg/dL AST 73 H (15-37) IU/L ALT 65 H (14-63) IU/L Alkaline Phosphatase 78 (46-116) U/L Total Protein 5.7 L (6.4-8.2) g/dL Albumin 1.5 L (3.4-5.0) g/dL Globulin 4.2 H (2.6-4.0) g/dL Albumin/Globulin Ratio 0.4 L (0.9-1.6) Vancomycin Trough (5.0-10.0) ug/mL 07/19/18 07/19/18 Range/Units 05:15 11:47 WBC (4.0-11.0) K/uL RBC (4.50-5.90) M/uL Hgb (13.0-17.0) g/dL Hct (38.0-50.0) % MCV (80.0-98.0) fL MCH (27.0-32.0) pg MCHC (31.0-37.0) g/dL RDW Std Deviation (28.0-62.0) fl RDW Coeff of Tre (11.0-15.0) % Plt Count (150-400) K/uL MPV (7.40-12.00) fL Neut % (Auto) (48.0-80.0) % Lymph % (Auto) (16.0-40.0) % [place] % (Auto) (0.0-15.0) % Eos % (Auto) (0.0-7.0) % Baso % (Auto) (0.0-1.5) % Neut # (Auto) (1.4-5.7) K/uL Lymph # (Auto) (0.6-2.4) K/uL [place] # (Auto) (0.0-0.8) K/uL Eos # (Auto) (0.0-0.7) K/uL Baso # (Auto) (0.0-0.1) K/uL Add Manual Diff Neutrophils % (Manual) (48.0-80.0) % Band Neutrophils % % Lymphocytes % (Manual) (16.0-40.0) % Monocytes % (Manual) (0.0-15.0) % Eosinophils % (Manual) (0.0-7.0) % Nucleated RBC % /100WBC Absolute Seg Neuts (1.4-5.7) Band Neutrophils # Lymphocytes # (Manual) (0.6-2.4) Monocytes # (Manual) (0.0-0.8) Eosinophils # (Manual) (0.0-0.7) Nucleated RBCs # K/uL Sodium 142 (136-148) mmol/L Potassium 3.4 L (3.5-5.1) mmol/L Chloride 109 H (98-107) mmol/L Carbon Dioxide 25.8 (21.0-32.0) mmol/L BUN 18 (7.0-18.0) mg/dL Creatinine 1.0 (0.8-1.3) mg/dL Est Cr Clr Drug Dosing 67.42 mL/min Estimated GFR (MDRD) > 60.0 ml/min Glucose 79 (74-106) mg/dL Calcium 7.3 L (8.5-10.1) mg/dL Total Bilirubin 0.2 (0.2-1.0) mg/dL AST 26 (15-37) IU/L ALT 37 (14-63) IU/L Alkaline Phosphatase 51 (46-116) U/L Total Protein 4.8 L (6.4-8.2) g/dL Albumin 1.1 L (3.4-5.0) g/dL Globulin 3.7 (2.6-4.0) g/dL Albumin/Globulin Ratio 0.3 L (0.9-1.6) Vancomycin Trough 23.5 H (5.0-10.0) ug/mL Steve Results Last 24 Hours: Microbiology 07/17/18 18:59 Aerobic Blood Culture - Preliminary Blood - Venous - Lab Draw NO GROWTH AFTER 1 DAY Anaerobic Blood Culture - Preliminary 07/17/18 18:38 Aerobic Blood Culture - Preliminary Blood - Venous NO GROWTH AFTER 1 DAY Anaerobic Blood Culture - Final Med Orders - Current: Current Medications Acetaminophen (Tylenol) 650 mg PO Q6H PRN PRN Reason: Pain/Fever Albuterol (Proventil Neb Soln) 2.5 mg NEB Q4H PRN PRN Reason: Shortness of Breath Apixaban (Eliquis) 5 mg PO BID [facility] BEDS AT [facility] Last Admin: 07/19/18 08:46 Dose: 5 mg Diltiazem HCl (Cardizem Cd) 240 mg PO DAILY [facility]S [facility]CLUDE 234 BEDS AT [facility] Last Admin: 07/19/18 08:50 Dose: 240 mg Gabapentin (Neurontin) 1,600 mg PO BID [facility]S [facility]CLUDE 234 BEDS AT [facility] Last Admin: 07/19/18 08:50 Dose: 1,600 mg Hydromorphone HCl (Dilaudid) 1 mg IVPUSH Q2H PRN PRN Reason: Pain Sodium Chloride (Normal Saline) 1,000 mls @ 125 mls/hr IV ASDIRECTED [facility]S INCLUDE 234 BEDS AT THE [facility] Last Admin: 07/19/18 11:15 Dose: 125 mls/hr Piperacillin Sod/Tazobactam (Sod 4.5 gm/ Sodium Chloride) 100 mls @ 100 mls/hr IV Q6H [facility]S [facility]CLUDE 234 BEDS AT [facility] Last Admin: 07/19/18 14:25 Dose: 100 mls/hr Aztreonam 2 gm/ Sodium (Chloride) 50 mls @ 100 mls/hr IV Q8H [facility]S [facility]CLUDE 234 BEDS AT [facility] Last Admin: 07/19/18 11:15 Dose: 100 mls/hr Metoprolol Tartrate (Lopressor) 50 mg PO BID [facility]S [facility]CLUDE 234 BEDS AT [facility] Last Admin: 07/19/18 08:47 Dose: 50 mg Midodrine (Midodrine) 2.5 mg PO BID [facility]S [facility]CLUDE 234 BEDS AT [facility] Last Admin: 07/19/18 08:46 Dose: 2.5 mg Morphine Sulfate (Morphine) 15 mg PO Q6H PRN PRN Reason: Pain Last Admin: 07/19/18 11:20 Dose: 15 mg Potassium Chloride (Klor-Con M20) 40 meq PO BID [facility]S INCLUDE 234 BEDS AT THE [facility] Last Admin: 07/19/18 11:20 Dose: 40 meq Prednisone (Prednisone) 20 mg PO DAILY [facility]S [facility]CLUDE 234 BEDS AT [facility] Last Admin: 07/19/18 08:50 Dose: 20 mg Sodium Chloride (Saline Flush) 10 ml FLUSH ASDIRECTED PRN PRN Reason: Keep Vein Open Sodium Chloride (Saline Flush) 2.5 ml FLUSH ASDIRECTED PRN PRN Reason: Keep Vein Open Vancomycin HCl (First-Vancomycin 25 Compounding Kit) 125 mg PO Q6H [facility]S INCLUDE 234 BEDS AT [facility] Last Admin: 07/19/18 11:19 Dose: 125 mg Vancomycin HCl (Pharmacy To Dose - Vancomycin) 1 dose .XX ASDIRECTED COUNTS INCLUDE 234 BEDS AT THE [facility] Discontinued Medications Acetaminophen (Tylenol Extra Strength) 1,000 mg PO ONETIME ONE Stop: 07/17/18 18:45 Last Admin: 07/17/18 18:58 Dose: 1,000 mg Albuterol/Ipratropium (Duoneb 3.0-0.5 Mg/3 Ml) 3 ml NEB ONETIME ONE Stop: 07/17/18 19:21 Last Admin: 07/17/18 19:32 Dose: 3 ml Hydromorphone HCl (Dilaudid) 0.5 mg IVPUSH Q3H PRN PRN Reason: Pain Hydromorphone HCl (Dilaudid) 0.5 mg IVPUSH Q3H PRN PRN Reason: Pain Last Admin: 07/19/18 10:13 Dose: 0.5 mg Sodium Chloride (Normal Saline) 1,000 mls @ 999 mls/hr IV STAT ONE Stop: 07/17/18 19:36 Last Admin: 07/17/18 18:54 Dose: 999 mls/hr Piperacillin Sod/Tazobactam (Sod 3.375 gm/ Sodium Chloride) 50 mls @ 100 mls/ hr IV ONETIME ONE Stop: 07/17/18 19:46 Last Admin: 07/17/18 19:36 Dose: 100 mls/hr Vancomycin HCl 1 gm/ Sodium (Chloride) 250 mls @ 250 mls/hr IV ONETIME ONE Stop: 07/17/18 20:16 Last Admin: 07/17/18 20:15 Dose: 250 mls/hr Vancomycin HCl 1 gm/ Sodium (Chloride) 250 mls @ 166 mls/hr IV ONETIME ONE Stop: 07/18/18 01:15 Last Admin: 07/18/18 00:41 Dose: 166 mls/hr Vancomycin HCl 1 gm/ Sodium (Chloride) 250 mls @ 166 mls/hr IV Q12H COUNTS INCLUDE 234 BEDS AT THE [facility] Last Admin: 07/18/18 23:56 Dose: 166 mls/hr Aztreonam 2 gm/ Sodium (Chloride) 50 mls @ 100 mls/hr IV Q8H COUNTS INCLUDE 234 BEDS AT THE [facility] Last Admin: 07/18/18 01:58 Dose: Not Given Morphine Sulfate (Morphine) 15 mg PO Q6H PRN PRN Reason: Pain - Exam General: Alert, Oriented, Cooperative, Mild Distress, Moderate Distress Lungs: Clear to Auscultation, Normal Respiratory Effort Cardiovascular: Regular Rate, Regular Rhythm Extremities: Arm Pain, Leg Pain - Problem List Review Problem List Initiated/Reviewed/Updated: Yes - My Orders Last 24 Hours: My Active Orders 07/19/18 10:30 Potassium Chloride [Klor-Con M20] 40 meq PO BID 07/19/18 10:32 HYDROmorphone [Dilaudid] 1 mg IVPUSH Q2H PRN - Plan Plan:: 58 yo male admitted with fever, possible gram negative mariposa respiratory infection with broad spectrum antibiotics. Patient's blood cultures once again are growing gram-negative rods she'll touch base with infectious disease to get better recommendations in terms of how to proceed next with this patient. Continue the oral vancomycin for the C. difficile infection which does appear to be getting worse based on abdominal CT
--- NOTE | 2018-07-19 16:20 | PCM.SN ---
- Free Text/Narrative Note: Spoke with Dr. Taylor who is an infectious disease specialist at [facility]. -They are suggesting that for the gram-negative Escherichia coli bacteremia patient was not fully treated with IV antibiotics during his previous admission for total of 10 days after the blood culture had cleared that it is partially likely why the patient is bacteremic once again. -Based on current antibiotic regimen patient is on infectious disease has recommended to discontinue the IV Zosyn and place the patient on meropenem and continue the aztreonam for coverage until speciation has resulted from the blood culture. -Infectious diseases also recommended getting a SERAFIN, as well as conducting a tagged WBC study once the inflammation from these C. difficile infection has improved. They suggest to do the tagged WBC study either Tuesday or Tuesday of the upcoming week. -For the C. difficile infection ID recommends increasing oral vancomycin to 500 mg 4 times a day for a course of 10-14 days as well as IV Flagyl. -Also recommend considering a surgical consult as the CT abdomen does indicate worsening/severe inflammation secondary to the C. difficile infection and the potential for the patient to developing toxic megacolon or other complication that would result in a surgical emergency. -Infectious disease recommends that if by Tuesday patient continues to be bacteremic without any source that it would be appropriate at that point in time to transfer the patient over.
[2018-07-20] MEDS: Vancomycin 25 MG/ML Compounding Kit PO SCH ×4 (03:48→23:07)
[2018-07-20 06:07] LABS: CHLORIDE,CL 111 mmol/L (98-107); SODIUM,NA 141 mmol/L (136-148)
[2018-07-20] MEDS: Diltiazem 120 MG Cap.CD PO SCH (08:24)
[2018-07-20] MEDS: Apixaban 5 MG Tab PO SCH ×2 (08:25→21:24)
[2018-07-20] MEDS: Metoprolol Tartrate 50 MG Tab PO SCH ×2 (08:25→21:25)
[2018-07-20] MEDS: Potassium Chloride 20 MEQ Tab.ER PO SCH ×2 (08:25→21:24)
[2018-07-20] MEDS: Midodrine 5 MG Tab PO SCH ×2 (08:26→21:24)
[2018-07-20] MEDS: predniSONE 20 MG Tab PO SCH (08:28)
[2018-07-20] MEDS: Gabapentin 800 MG Tab PO SCH ×2 (08:29→21:24)
[2018-07-20] MEDS: HYDROmorphone 1 MG/ML Syringe IVPUSH PRN ×4 (09:42→21:25)
[2018-07-20] MEDS: metroNIDAZOLE/Normal Saline 500 MG in Premix Bag 1 BAG IV SCH ×2 (09:57→17:18)
--- NOTE | 2018-07-20 11:24 | PCM.PN ---
- General Info Date of Service: 07/20/18 Subjective Update: Stable, believes that his diarrhea is improving. Patient is complaining of difficulty with extension of his right wrist and decreased strength of the right wrist. - Patient Data Vitals - Most Recent: Last Vital Signs Temp 36.4 C 07/20/18 07:59 Pulse 92 07/20/18 08:25 Resp 16 07/20/18 07:59 BP 120/81 07/20/18 08:25 Pulse Ox 94 L 07/20/18 07:59 Weight - Most Recent: 67.585 kg I&O - Last 24 Hours: Intake & Output 07/19/18 07/20/18 07/20/18 22:59 06:59 14:59 Intake Total 1060 700 Output Total 350 Balance 1060 350 Lab Results Last 24 Hours: Laboratory Results - last 24 hr 07/19/18 07/19/18 07/20/18 Range/Units 11:47 11:47 05:25 WBC 6.58 (4.0-11.0) K/uL RBC 3.08 L (4.50-5.90) M/uL Hgb 8.3 L (13.0-17.0) g/dL Hct 27.7 L (38.0-50.0) % MCV 89.9 (80.0-98.0) fL MCH 26.9 L (27.0-32.0) pg MCHC 30.0 L (31.0-37.0) g/dL RDW Std Deviation 63.5 H (28.0-62.0) fl RDW Coeff of Tre 19 H (11.0-15.0) % Plt Count 242 (150-400) K/uL MPV 9.20 (7.40-12.00) fL Neut % (Auto) 65.4 (48.0-80.0) % Lymph % (Auto) 20.2 (16.0-40.0) % Mobile % (Auto) 13.8 (0.0-15.0) % Eos % (Auto) 0.3 (0.0-7.0) % Baso % (Auto) 0.3 (0.0-1.5) % Neut # (Auto) 4.3 (1.4-5.7) K/uL Lymph # (Auto) 1.3 (0.6-2.4) K/uL Mobile # (Auto) 0.9 H (0.0-0.8) K/uL Eos # (Auto) 0.0 (0.0-0.7) K/uL Baso # (Auto) 0.0 (0.0-0.1) K/uL Nucleated RBC % 0.0 /100WBC Nucleated RBCs # 0 K/uL Sodium (136-148) mmol/L Potassium (3.5-5.1) mmol/L Chloride (98-107) mmol/L Carbon Dioxide (21.0-32.0) mmol/L BUN (7.0-18.0) mg/dL Creatinine (0.8-1.3) mg/dL Est Cr Clr Drug Dosing mL/min Estimated GFR (MDRD) ml/min Glucose (74-106) mg/dL Calcium (8.5-10.1) mg/dL Total Bilirubin (0.2-1.0) mg/dL AST (15-37) IU/L ALT (14-63) IU/L Alkaline Phosphatase (46-116) U/L C-Reactive Protein 11.50 H (0.00-0.90) mg/dL Total Protein (6.4-8.2) g/dL Albumin (3.4-5.0) g/dL Globulin (2.6-4.0) g/dL Albumin/Globulin Ratio (0.9-1.6) Vancomycin Trough 23.5 H (5.0-10.0) ug/mL 07/20/18 Range/Units 05:25 WBC (4.0-11.0) K/uL RBC (4.50-5.90) M/uL Hgb (13.0-17.0) g/dL Hct (38.0-50.0) % MCV (80.0-98.0) fL MCH (27.0-32.0) pg MCHC (31.0-37.0) g/dL RDW Std Deviation (28.0-62.0) fl RDW Coeff of Tre (11.0-15.0) % Plt Count (150-400) K/uL MPV (7.40-12.00) fL Neut % (Auto) (48.0-80.0) % Lymph % (Auto) (16.0-40.0) % Mobile % (Auto) (0.0-15.0) % Eos % (Auto) (0.0-7.0) % Baso % (Auto) (0.0-1.5) % Neut # (Auto) (1.4-5.7) K/uL Lymph # (Auto) (0.6-2.4) K/uL Mobile # (Auto) (0.0-0.8) K/uL Eos # (Auto) (0.0-0.7) K/uL Baso # (Auto) (0.0-0.1) K/uL Nucleated RBC % /100WBC Nucleated RBCs # K/uL Sodium 141 (136-148) mmol/L Potassium 4.9 (3.5-5.1) mmol/L Chloride 111 H (98-107) mmol/L Carbon Dioxide 25.6 (21.0-32.0) mmol/L BUN 20 H (7.0-18.0) mg/dL Creatinine 1.1 (0.8-1.3) mg/dL Est Cr Clr Drug Dosing 61.29 mL/min Estimated GFR (MDRD) > 60.0 ml/min Glucose 79 (74-106) mg/dL Calcium 7.8 L (8.5-10.1) mg/dL Total Bilirubin 0.2 (0.2-1.0) mg/dL AST 25 (15-37) IU/L ALT 36 (14-63) IU/L Alkaline Phosphatase 51 (46-116) U/L C-Reactive Protein (0.00-0.90) mg/dL Total Protein 5.1 L (6.4-8.2) g/dL Albumin 1.2 L (3.4-5.0) g/dL Globulin 3.9 (2.6-4.0) g/dL Albumin/Globulin Ratio 0.3 L (0.9-1.6) Vancomycin Trough (5.0-10.0) ug/mL Steve Results Last 24 Hours: Microbiology 07/17/18 22:35 Urine Culture - Final Urine, Bladder Escherichia Coli Normal Urogenital Pao 07/17/18 18:59 Aerobic Blood Culture - Preliminary Blood - Venous - Lab Draw NO GROWTH AFTER 2 DAYS Anaerobic Blood Culture - Final Escherichia Coli 07/17/18 18:38 Aerobic Blood Culture - Preliminary Blood - Venous NO GROWTH AFTER 2 DAYS Anaerobic Blood Culture - Final 07/19/18 15:32 Anaerobic Blood Culture - Final Blood - Venous Med Orders - Current: Current Medications Acetaminophen (Tylenol) 650 mg PO Q6H PRN PRN Reason: Pain/Fever Albuterol (Proventil Neb Soln) 2.5 mg NEB Q4H PRN PRN Reason: Shortness of Breath Apixaban (Eliquis) 5 mg PO BID [facility] Last Admin: 07/20/18 08:25 Dose: 5 mg Diltiazem HCl (Cardizem Cd) 240 mg PO DAILY [facility] Last Admin: 07/20/18 08:24 Dose: 240 mg Gabapentin (Neurontin) 1,600 mg PO BID [facility] Last Admin: 07/20/18 08:29 Dose: 1,600 mg Hydromorphone HCl (Dilaudid) 1 mg IVPUSH Q2H PRN PRN Reason: Pain Last Admin: 07/20/18 09:42 Dose: 1 mg Sodium Chloride (Normal Saline) 1,000 mls @ 125 mls/hr IV ASDIRECTED [facility] Last Admin: 07/19/18 11:15 Dose: 125 mls/hr Aztreonam 2 gm/ Sodium (Chloride) 50 mls @ 100 mls/hr IV Q8H [facility] Last Admin: 07/20/18 03:48 Dose: 100 mls/hr Meropenem 1 gm/ Sodium (Chloride) 50 mls @ 100 mls/hr IV Q8H [facility] Last Admin: 07/20/18 08:30 Dose: 100 mls/hr Metronidazole 500 mg/ Premix 100 mls @ 100 mls/hr IV Q8H [facility] Last Admin: 07/20/18 09:57 Dose: 100 mls/hr Metoprolol Tartrate (Lopressor) 50 mg PO BID [facility] Last Admin: 07/20/18 08:25 Dose: 50 mg Midodrine (Midodrine) 2.5 mg PO BID [facility] Last Admin: 07/20/18 08:26 Dose: 2.5 mg Morphine Sulfate (Morphine) 15 mg PO Q6H PRN PRN Reason: Pain Last Admin: 07/19/18 11:20 Dose: 15 mg Potassium Chloride (Klor-Con M20) 40 meq PO BID [facility] Last Admin: 07/20/18 08:25 Dose: 40 meq Prednisone (Prednisone) 20 mg PO DAILY [facility] Last Admin: 07/20/18 08:28 Dose: 20 mg Sodium Chloride (Saline Flush) 10 ml FLUSH ASDIRECTED PRN PRN Reason: Keep Vein Open Sodium Chloride (Saline Flush) 2.5 ml FLUSH ASDIRECTED PRN PRN Reason: Keep Vein Open Vancomycin HCl (Pharmacy To Dose - Vancomycin) 1 dose .XX ASDIRECTED [facility] Vancomycin HCl (First-Vancomycin 25 Compounding Kit) 500 mg PO Q6H [facility] Last Admin: 07/20/18 10:37 Dose: 20 ml Discontinued Medications Acetaminophen (Tylenol Extra Strength) 1,000 mg PO ONETIME ONE Stop: 07/17/18 18:45 Last Admin: 07/17/18 18:58 Dose: 1,000 mg Albuterol/Ipratropium (Duoneb 3.0-0.5 Mg/3 Ml) 3 ml NEB ONETIME ONE Stop: 07/17/18 19:21 Last Admin: 07/17/18 19:32 Dose: 3 ml Hydromorphone HCl (Dilaudid) 0.5 mg IVPUSH Q3H PRN PRN Reason: Pain Hydromorphone HCl (Dilaudid) 0.5 mg IVPUSH Q3H PRN PRN Reason: Pain Last Admin: 07/19/18 10:13 Dose: 0.5 mg Sodium Chloride (Normal Saline) 1,000 mls @ 999 mls/hr IV STAT ONE Stop: 07/17/18 19:36 Last Admin: 07/17/18 18:54 Dose: 999 mls/hr Piperacillin Sod/Tazobactam (Sod 3.375 gm/ Sodium Chloride) 50 mls @ 100 mls/ hr IV ONETIME ONE Stop: 07/17/18 19:46 Last Admin: 07/17/18 19:36 Dose: 100 mls/hr Vancomycin HCl 1 gm/ Sodium (Chloride) 250 mls @ 250 mls/hr IV ONETIME ONE Stop: 07/17/18 20:16 Last Admin: 07/17/18 20:15 Dose: 250 mls/hr Vancomycin HCl 1 gm/ Sodium (Chloride) 250 mls @ 166 mls/hr IV ONETIME ONE Stop: 07/18/18 01:15 Last Admin: 07/18/18 00:41 Dose: 166 mls/hr Vancomycin HCl 1 gm/ Sodium (Chloride) 250 mls @ 166 mls/hr IV Q12H [facility] Last Admin: 07/18/18 23:56 Dose: 166 mls/hr Aztreonam 2 gm/ Sodium (Chloride) 50 mls @ 100 mls/hr IV Q8H [facility] Last Admin: 07/18/18 01:58 Dose: Not Given Piperacillin Sod/Tazobactam (Sod 4.5 gm/ Sodium Chloride) 100 mls @ 100 mls/hr IV Q6H [facility] Last Admin: 07/19/18 14:25 Dose: 100 mls/hr Morphine Sulfate (Morphine) 15 mg PO Q6H PRN PRN Reason: Pain Vancomycin HCl (First-Vancomycin 25 Compounding Kit) 125 mg PO Q6H [facility] Last Admin: 07/19/18 11:19 Dose: 125 mg - Exam General: Alert, Oriented, Cooperative, Mild Distress Lungs: Clear to Auscultation, Normal Respiratory Effort Cardiovascular: Regular Rate, Regular Rhythm GI/Abdominal Exam: Non-Tender Extremities: Other (There is difficulty with extension of the right wrist, decreased strength of the right wrist) - Problem List Review Problem List Initiated/Reviewed/Updated: Yes - My Orders Last 24 Hours: My Active Orders 07/19/18 10:30 Potassium Chloride [Klor-Con M20] 40 meq PO BID 07/19/18 10:32 HYDROmorphone [Dilaudid] 1 mg IVPUSH Q2H PRN 07/19/18 15:09 Blood Culture x2 Reflex Set [OM.PC] Stat 07/19/18 15:32 CULTURE BLOOD [BC] Stat 07/19/18 15:48 CULTURE BLOOD [BC] Stat 07/19/18 16:15 Meropenem [Merrem] 1 gm Sodium Chloride 0.9% [Normal Saline] 50 ml IV Q8H 07/20/18 09:30 metroNIDAZOLE/Normal Saline [Flagyl 500 MG in NS 100 ML] 500 mg Premix Bag 1 bag IV Q8H 07/20/18 11:08 OT Evaluation and Treatment [CONS] Routine Wrist Comp Min 3V Rt [CR] Routine 07/20/18 11:17 Consult to Physician [CONS] Routine 07/20/18 11:18 Notify Provider Consults [RC] ASDIRECTED 07/21/18 05:11 CBC WITH AUTO DIFF [HEME] AM COMPREHENSIVE METABOLIC PN,CMP [CHEM] AM MAGNESIUM [CHEM] AM 07/22/18 05:11 CBC WITH AUTO DIFF [HEME] AM COMPREHENSIVE METABOLIC PN,CMP [CHEM] AM MAGNESIUM [CHEM] AM 07/23/18 05:11 CBC WITH AUTO DIFF [HEME] AM COMPREHENSIVE METABOLIC PN,CMP [CHEM] AM MAGNESIUM [CHEM] AM 07/24/18 05:11 CBC WITH AUTO DIFF [HEME] AM COMPREHENSIVE METABOLIC PN,CMP [CHEM] AM 07/25/18 05:11 CBC WITH AUTO DIFF [HEME] AM COMPREHENSIVE METABOLIC PN,CMP [CHEM] AM - Plan Plan:: 58 yo male admitted with fever, possible gram negative [place] respiratory infection with broad spectrum antibiotics. -Per infectious disease recommendation in [place] patient's IV antibiotics have now been switched to IV meropenem and IV aztreonam for his gram-negative bacteremia -Patient's initial blood culture and urine culture have been speciated out both growing Escherichia coli both sensitive to meropenem -Second set of blood cultures are still pending -For the patient's C. difficile infection per infectious disease recommendation patient's oral vancomycin has now been increased to 500 mg 4 times a day as well as IV Flagyl 500 mg every 8 hours -Have consult to Gen. surgery per infectious disease's recommendation -For the difficulty in an extension of the patient's right wrist likely this is secondary to his chronic prednisone usage that may be causing issues as far as his tendons. Patient to have a x-ray of the right wrist along with occupational therapy consult. FEN- patient's current IV fluids normal saline at 125cc/hr, all electrolytes are currently within normal limits, patient is currently on a regular diet DVT prophylaxis-Pt is currently on Eliquis 5mg daily
--- NOTE | 2018-07-20 13:53 | PCM.CONS ---
H&P History of Present Illness - General Date of Service: 07/20/18 Admit Problem/Dx: Admission Diagnosis/Problem Admission Diagnosis/Problem Recurrent Colitis Source of Information: Patient History Limitations: Reports: No Limitations - History of Present Illness Initial Comments - Free Text/Narative: Patient is a 58-year-old gentleman who was recently admitted for C. difficile colitis. He initially was treated with parenteral antibiotics and transitioned to oral antibiotics. He was allowed to go home, but has now returned with recurrent colitis and new diagnosis of pneumonia. He currently denies any abdominal pain, fever or chills and no blood when he has a bowel movement. Duration of Symptoms: Reports: Day(s): Location: Reports: Abdomen Quality: Reports: Ache, Pressure Severity: Moderate Improves with: Reports: Rest Worsens with: Reports: None Context: Reports: Sick Contact Associated Symptoms: Denies: Confusion, Fever/Chills, Nausea/Vomiting generalized Pain Score (Numeric/FACES): 7 - Related Data Allergies/Adverse Reactions: Allergies Allergy/AdvReac Type Severity Reaction Status Date / Time itraconazole [From Sporanox] Allergy Unknown Confusion Verified 07/17/18 18:24 levofloxacin [From Levaquin] Allergy Unknown Other Verified 07/17/18 18:24 Home Medications: Home Meds Finasteride 5 mg PO DAILY 01/11/16 [History] Fluticasone/Vilanterol [Breo Ellipta 200-25 Mcg INH] 1 inh INH DAILY 01/11/16 [ History] Gabapentin [Neurontin] 1,600 mg PO BID 01/11/16 [History] Testosterone [Androgel] 4 pump TOP DAILY 01/11/16 [History] Tiotropium [place] [Spiriva Respimat] 2 puff INH BID 01/12/16 [History] Morphine 15 mg PO Q6H PRN #10 tablet 01/15/16 [Rx] Albuterol Sulfate 2.5 mg IH DAILY 05/19/18 [History] Apixaban [Eliquis] 5 mg PO BID 05/19/18 [History] Diltiazem HCl [Diltiazem 24Hr ER] 240 mg PO DAILY 05/19/18 [History] Icosapent Ethyl [Vascepa] 1 gm PO DAILY 05/19/18 [History] Pantoprazole [ProTONIX] 40 mg PO DAILY 05/19/18 [History] Metoprolol Tartrate 50 mg PO BID 05/20/18 [History] Midodrine 2.5 mg PO BID 05/20/18 [History] traZODone HCl [Trazodone HCl] 50 mg PO BEDTIME 05/20/18 [History] Iron Polysaccharides Complex [Ferrex 150] 150 mg PO DAILY 30 Days #30 cap [Rx] Albuterol [Proventil Neb Soln] 2.5 mg NEB Q4HR PRN #15 neb 06/29/18 [Rx] Diclofenac Sodium [Voltaren 1% Gel] 1 applic TP QID #1 tube 06/29/18 [Rx] Vancomycin [First-Vancomycin 25 Compounding Kit] 125 mg PO Q6H 6 Days #1 bottle 07/13/18 [Rx] predniSONE [Prednisone] 20 mg PO DAILY #5 tablet 07/13/18 [Rx] Past Medical History HEENT History: Reports: Cataract Other HEENT History: dental fillings due to caries; recent tooth fracture Cardiovascular History: Reports: Afib, Cardiomyopathy, Heart Failure, Hypertension, [place] Respiratory History: Reports: Asthma, Bronchitis, Recurrent, PE, Pneumonia, Recurrent, Other (See Below) Other Respiratory History: Chronic pulmonary aspergillosis, 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 No explantation- -they apparently just treated him with IV abx for months. - Past Surgical History Head Surgeries/Procedures: Reports: None HEENT Surgical History: Reports: Cataract Surgery Cardiovascular Surgical History: Reports: None Respiratory Surgical History: Reports: Lung Resection (right middle lobectomy for aspergilloma) Other Respiratory Surgeries/Procedures: intubated last Feb 2018 and transfered to [facility] Surgical History: Reports: None Male Surgical History: Reports: None Endocrine Surgical History: Reports: None Neurological Surgical History: Reports: None Musculoskeletal Surgical History: Reports: Shoulder Surgery, Other (See Below) Other Musculoskeletal Surgeries/Procedures:: L shoulder and left hip surgery Oncologic Surgical History: Reports: None Dermatological Surgical History: Reports: None Social & Family History - Family History Family Medical History: Noncontributory - Tobacco Use Smoking Status *Q: Never Smoker Second Hand Smoke Exposure: No - Caffeine Use Caffeine Use: Reports: Soda - Recreational Drug Use Recreational Drug Use: No - Living Situation & Occupation Living situation: Reports: Single Occupation: Disabled H&P Review of Systems - Review of Systems: Review Of Systems: See Below General: Denies: Fever, Chills, Malaise, Weakness, Fatigue HEENT: Reports: No Symptoms Pulmonary: Denies: Shortness of Breath, Wheezing Cardiovascular: Denies: Chest Pain, Palpitations Gastrointestinal: Reports: Diarrhea, Flatus. Denies: Abdominal Pain, Anorexia, Black Stool, Bloody Stool, Constipation, Hematemesis, Hematochezia, Melena, Nausea, Vomiting Genitourinary: Denies: Dysuria, Frequency, Burning, Pain Musculoskeletal: Reports: No Symptoms Skin: Reports: No Symptoms Psychiatric: Denies: Confusion, Depression Neurological: Denies: Confusion, Dizziness Hematologic/Lymphatic: Denies: Anemia, Easy Bleeding Immunologic: Reports: No Symptoms Exam - Exam Exam: See Below - Vital Signs Vital Signs: Last Vital Signs Temp 98.1 F 07/20/18 11:00 Pulse 88 07/20/18 11:00 Resp 20 07/20/18 11:00 BP 127/75 07/20/18 11:00 Pulse Ox 92 L 07/20/18 11:00 Weight: 149 lb - Exam General: Alert, Oriented, Cooperative, Mild Distress HEENT: Conjunctiva Clear, EACs Clear, EOMI. No: Scleral Icterus Neck: Supple, Trachea Midline Lungs: Clear to Auscultation, Normal Respiratory Effort. No: Decreased Breath Sounds, Crackles, Rales, Rhonchi Cardiovascular: Regular Rate, Regular Rhythm. No: Tachycardia GI/Abdominal Exam: Normal Bowel Sounds, Soft, Non-Tender, No Distention, No Mass. No: Guarding, Rigid, Rebound (Male) Exam: No Hernia Rectal (Males) Exam: Deferred, Prostate Nodule Back Exam: Normal Inspection Extremities: Normal Inspection, Normal Range of Motion, Normal Capillary Refill Peripheral Pulses: 4+: Posterior Tibial (L), Posterior Tibial (R), Dorsalis Pedis (L), Dorsalis Pedis (R) Skin: Warm, Dry, Intact - Patient Data Lab Results Last 24 hrs: Laboratory Results - last 24 hr 07/19/18 07/19/18 07/20/18 Range/Units 11:47 11:47 05:25 WBC 6.58 (4.0-11.0) K/uL RBC 3.08 L (4.50-5.90) M/uL Hgb 8.3 L (13.0-17.0) g/dL Hct 27.7 L (38.0-50.0) % MCV 89.9 (80.0-98.0) fL MCH 26.9 L (27.0-32.0) pg MCHC 30.0 L (31.0-37.0) g/dL RDW Std Deviation 63.5 H (28.0-62.0) fl RDW Coeff of Tre 19 H (11.0-15.0) % Plt Count 242 (150-400) K/uL MPV 9.20 (7.40-12.00) fL Neut % (Auto) 65.4 (48.0-80.0) % Lymph % (Auto) 20.2 (16.0-40.0) % Robeson % (Auto) 13.8 (0.0-15.0) % Eos % (Auto) 0.3 (0.0-7.0) % Baso % (Auto) 0.3 (0.0-1.5) % Neut # (Auto) 4.3 (1.4-5.7) K/uL Lymph # (Auto) 1.3 (0.6-2.4) K/uL Robeson # (Auto) 0.9 H (0.0-0.8) K/uL Eos # (Auto) 0.0 (0.0-0.7) K/uL Baso # (Auto) 0.0 (0.0-0.1) K/uL Nucleated RBC % 0.0 /100WBC Nucleated RBCs # 0 K/uL Sodium (136-148) mmol/L Potassium (3.5-5.1) mmol/L Chloride (98-107) mmol/L Carbon Dioxide (21.0-32.0) mmol/L BUN (7.0-18.0) mg/dL Creatinine (0.8-1.3) mg/dL Est Cr Clr Drug Dosing mL/min Estimated GFR (MDRD) ml/min Glucose (74-106) mg/dL Calcium (8.5-10.1) mg/dL Total Bilirubin (0.2-1.0) mg/dL AST (15-37) IU/L ALT (14-63) IU/L Alkaline Phosphatase (46-116) U/L C-Reactive Protein 11.50 H (0.00-0.90) mg/dL Total Protein (6.4-8.2) g/dL Albumin (3.4-5.0) g/dL Globulin (2.6-4.0) g/dL Albumin/Globulin Ratio (0.9-1.6) Vancomycin Trough 23.5 H (5.0-10.0) ug/mL 07/20/18 Range/Units 05:25 WBC (4.0-11.0) K/uL RBC (4.50-5.90) M/uL Hgb (13.0-17.0) g/dL Hct (38.0-50.0) % MCV (80.0-98.0) fL MCH (27.0-32.0) pg MCHC (31.0-37.0) g/dL RDW Std Deviation (28.0-62.0) fl RDW Coeff of Tre (11.0-15.0) % Plt Count (150-400) K/uL MPV (7.40-12.00) fL Neut % (Auto) (48.0-80.0) % Lymph % (Auto) (16.0-40.0) % Robeson % (Auto) (0.0-15.0) % Eos % (Auto) (0.0-7.0) % Baso % (Auto) (0.0-1.5) % Neut # (Auto) (1.4-5.7) K/uL Lymph # (Auto) (0.6-2.4) K/uL [place]eson # (Auto) (0.0-0.8) K/uL Eos # (Auto) (0.0-0.7) K/uL Baso # (Auto) (0.0-0.1) K/uL Nucleated RBC % /100WBC Nucleated RBCs # K/uL Sodium 141 (136-148) mmol/L Potassium 4.9 (3.5-5.1) mmol/L Chloride 111 H (98-107) mmol/L Carbon Dioxide 25.6 (21.0-32.0) mmol/L BUN 20 H (7.0-18.0) mg/dL Creatinine 1.1 (0.8-1.3) mg/dL Est Cr Clr Drug Dosing 61.29 mL/min Estimated GFR (MDRD) > 60.0 ml/min Glucose 79 (74-106) mg/dL Calcium 7.8 L (8.5-10.1) mg/dL Total Bilirubin 0.2 (0.2-1.0) mg/dL AST 25 (15-37) IU/L ALT 36 (14-63) IU/L Alkaline Phosphatase 51 (46-116) U/L C-Reactive Protein (0.00-0.90) mg/dL Total Protein 5.1 L (6.4-8.2) g/dL Albumin 1.2 L (3.4-5.0) g/dL Globulin 3.9 (2.6-4.0) g/dL Albumin/Globulin Ratio 0.3 L (0.9-1.6) Vancomycin Trough (5.0-10.0) ug/mL Result Diagrams: 07/20/18 05:25 07/20/18 05:25 Steve Results Last 24 hrs: Microbiology 07/17/18 22:35 Urine Culture - Final Urine, Bladder Escherichia Coli Normal Urogenital Pao 07/17/18 18:59 Aerobic Blood Culture - Preliminary Blood - Venous - Lab Draw NO GROWTH AFTER 2 DAYS Anaerobic Blood Culture - Final Escherichia Coli 07/17/18 18:38 Aerobic Blood Culture - Preliminary Blood - Venous NO GROWTH AFTER 2 DAYS Anaerobic Blood Culture - Final 07/19/18 15:32 Anaerobic Blood Culture - Final Blood - Venous Consult PN Assessment/Plan Procedures: Procedures AIRWAY INHALATION TREATMENT (06/29/18) ASSAY OF FERRITIN (05/20/18) ASSAY OF LACTIC ACID (07/03/18) ASSAY OF MAGNESIUM (07/03/18) ASSAY OF NATRIURETIC PEPTIDE (05/02/18) ASSAY OF PHOSPHORUS (07/03/18) ASSAY OF PSA TOTAL (07/03/18) ASSAY OF TROPONIN QUANT (06/23/18) ASSAY OF VANCOMYCIN (07/03/18) ASSAY THYROID STIM HORMONE (05/02/18) AUTOMATED RETICULOCYTE COUNT (05/20/18) BLOOD CULTURE FOR BACTERIA (07/03/18) BLOOD GASES ANY COMBINATION (05/02/18) BONE IMAGING 3 PHASE (07/03/18) C-REACTIVE PROTEIN (07/03/18) CLOSTRIDIUM AG IA (07/03/18) COMPLETE CBC W/AUTO DIFF WBC (07/03/18) COMPREHEN METABOLIC PANEL (07/03/18) CRITICAL CARE ADDL 30 MIN (05/02/18) CRITICAL CARE FIRST HOUR (05/02/18) CT ABD & PELVIS W/O CONTRAST (07/03/18) CT HEAD/BRAIN W/O DYE (06/23/18) CT LOWER EXTREMITY W/O DYE (07/03/18) CULTURE AEROBIC IDENTIFY (07/03/18) DRUG TEST PRSMV DIR OPT OBS (05/02/18) ECHO EXAM OF ABDOMEN (07/03/18) ELECTROCARDIOGRAM TRACING (07/03/18) EMERGENCY DEPT VISIT (07/03/18) EMERGENCY DEPT VISIT (06/29/18) EMERGENCY DEPT VISIT (06/23/18) EMERGENCY DEPT VISIT (05/20/18) EMERGENCY DEPT VISIT (01/11/16) EXTREMITY STUDY (07/03/18) GLUCOSE BLOOD TEST (05/20/18) GLYCOSYLATED HEMOGLOBIN TEST (05/20/18) HELICOBACTER PYLORI ANTIBODY (05/20/18) HYDRATE IV INFUSION ADD-ON (07/03/18) HYDRATION IV INFUSION INIT (02/27/18) INSERT EMERGENCY AIRWAY (05/02/18) INSERT TEMP BLADDER CATH (06/29/18) IRON BINDING TEST (05/20/18) LIPID PANEL (05/20/18) METABOLIC PANEL TOTAL CA (07/03/18) MICROBE SUSCEPTIBLE STEVE (07/03/18) MRI BRAIN STEM W/O DYE (06/23/18) MRI LOWER EXTREMITY W/O DYE (07/03/18) MRI UPPER EXTREMITY W/O DYE (07/03/18) OCCULT BLD FECES 1-3 TESTS (05/20/18) PROTHROMBIN TIME (05/02/18) PT EVAL LOW COMPLEX 20 MIN (07/03/18) RBC SED RATE AUTOMATED (01/11/16) ROUTINE VENIPUNCTURE (07/03/18) THER/PROPH/DIAG INJ IV PUSH (06/23/18) THER/PROPH/DIAG INJ SC/IM (01/11/16) THER/PROPH/DIAG IV INF INIT (07/03/18) TTE W/DOPPLER COMPLETE (07/03/18) TX GASTRO INTUB W/ASP (05/02/18) TX/PRO/DX INJ NEW DRUG ADDON (07/03/18) TX/PROPH/DG ADDL SEQ IV INF (07/03/18) URINALYSIS AUTO W/SCOPE (07/03/18) URINE BACTERIA CULTURE (07/03/18) URINE CULTURE/COLONY COUNT (05/02/18) VENT MGMT INPAT INIT DAY (05/02/18) WITHDRAWAL OF ARTERIAL BLOOD (05/02/18) X-RAY EXAM CHEST 1 VIEW (07/03/18) X-RAY EXAM CHEST 2 VIEWS (06/29/18) X-RAY EXAM OF ANKLE (01/11/16) X-RAY EXAM OF FOOT (07/03/18) X-RAY EXAM OF FOOT (12/05/15) X-RAY EXAM OF HAND (07/03/18) X-RAY EXAM OF PELVIS (01/11/16) X-RAY EXAM OF WRIST (07/03/18) (1) History of Clostridium difficile infection SNOMED Code(s): 400504888, 233992486 Code(s): Z86.19 - PERSONAL HISTORY OF OTHER INFECTIOUS AND PARASITIC DISEASES Current Visit: Yes (2) Pneumonia SNOMED Code(s): 714328366 Code(s): J18.9 - PNEUMONIA, UNSPECIFIED ORGANISM Current Visit: Yes Qualifiers: Pneumonia type: due to unspecified organism Laterality: left Lung location: unspecified part of lung Qualified Code(s): J18.9 - Pneumonia, unspecified organism (3) Aspergillosis SNOMED Code(s): 01982687 Code(s): B44.9 - ASPERGILLOSIS, UNSPECIFIED Current Visit: No Problem List Initiated/Reviewed/Updated: Yes Plan: Patient at this time looks quite stable. Certainly with diffuse thickening of his colon wall. There is a concern that he would require an emergent total abdominal colectomy. This would not be something that would be safe to do here in [place]. As he potentially will become very ill and require significant intensive care support. If he continues to improve, I think he can be treated conservatively here. Certainly, if he worsens, he will need to be transferred to a tertiary facility.
[2018-07-20] MEDS: Morphine 15 MG Tab PO PRN (21:25)
[2018-07-21] MEDS: metroNIDAZOLE/Normal Saline 500 MG in Premix Bag 1 BAG IV SCH ×2 (00:34→09:15)
[2018-07-21] MEDS: HYDROmorphone 1 MG/ML Syringe IVPUSH PRN ×5 (02:20→11:32)
[2018-07-21] MEDS: Vancomycin 25 MG/ML Compounding Kit PO SCH ×2 (03:49→09:27)
[2018-07-21 06:27] LABS: CHLORIDE,CL 107 mmol/L (98-107); SODIUM,NA 138 mmol/L (136-148)
[2018-07-21] MEDS: Gabapentin 800 MG Tab PO SCH (08:41)
[2018-07-21] MEDS: Morphine 15 MG Tab PO PRN (09:00)
[2018-07-21] MEDS: Diltiazem 120 MG Cap.CD PO SCH (09:03)
[2018-07-21] MEDS: Potassium Chloride 20 MEQ Tab.ER PO SCH (09:04)
[2018-07-21] MEDS: predniSONE 20 MG Tab PO SCH (09:04)
[2018-07-21] MEDS: Apixaban 5 MG Tab PO SCH (09:04)
[2018-07-21] MEDS: Metoprolol Tartrate 50 MG Tab PO SCH (09:04)
[2018-07-21] MEDS: Midodrine 5 MG Tab PO SCH (09:04)
[2018-07-21 11:06] VITALS: BP 128/77
--- NOTE | 2018-07-21 11:26 | PCM.DCSUM1 ---
<Fracisco Marques Z - Last Filed: 07/21/18 11:21> Discharge Summary - Hospital Course HPI Initial Comments: Discharge Summary Date of admission: 07/17/18 Date of discharge: 07/21/18 Admitting diagnosis: #1. Fevers, fatigue etiology possibly gram-negative bacteremia versus possible respiratory infection #2. Ongoing C. difficile infection #3. Ongoing cellulitis of the right hand and left foot from previous admission continuing to improve #4. #5. Discharge diagnoses: #1. Bacteremia, urinary tract infection, C. difficile colitis #2. Hyperkalemia #3. Cellulitis improving Consultations: Gen. surgery- Dr. Park Procedures: None Hospitalization course: Patient was admitted on the fourth and broad-spectrum antibiotics including IV vancomycin, IV Zosyn, IV aztreonam were ordered for possible gram-negative respiratory infection versus bacteremia. Imaging did not indicate respiratory infection however patient did have a blood culture that end up growing gram-negative rods as well as a urine culture that was also positive. Patient's IV vancomycin was discontinued. He was continued on the oral vancomycin 125 mg every 6 hours. Patient did not have an elevated lactic acid level, did not have any elevated temperature or hemodynamic instability upon admission. CT of the abdomen and pelvis did indicate severe colitis secondary to his C. difficile infection however did not show signs of significant bowel edema or progression towards toxic megacolon. Due to the initial blood culture came back Escherichia coli continuation of IV Zosyn and IV aztreonam were done. It is to be noted that this patient actually initially was admitted to our institution on 07/02/18 through . He was initially admitted at that time for right hand cellulitis and left foot cellulitis likely due to his immunocompromised state due to his chronic prednisone use for his bronchopulmonary aspergillosis diagnosis. During that initial visit we had a very difficult time in terms of clearing the patient's bacteremia he had 3 blood cultures all grew out gram-negative rods primarily being Escherichia coli which was sensitive to Zosyn for which the patient had been treated throughout his stay during his previous admission. He was on the fourth blood culture that the patient's gram-negative bacteremia had findings cleared. This was on . He was also during this time that I spoke with infectious disease in [place] who had recommended that since we cannot find a source of his infection (by then we had done a CT abdomen which was clear, urine analysis that was not indicating any infection, chest imaging that was not showing any signs of infection) that we look for a endovascular septic cause as a possible source. During that initial admission we ended up getting a TTE which was within normal limits, and venous Dopplers of his bilateral extremities that did not show any signs of septic clots. Infectious disease had also recommended that the patient get a colonoscopy however by then the patient had also developed a C. difficile infection due to his IV Zosyn coverage. As the patient did have a clearance of his bacteremia and was stable it was thought by the [facility] hospitalist that the patient could have his colonoscopy assessment done outpatient. Patient had his IV Zosyn stopped on 07/12/18 which was only 2 days after the clearance of his bacteremia. Patient was subsequently discharged home on 07/13/18 with oral vancomycin 125 mg every 6 hours for another 5 days as he had already received a 5 day dose of oral vancomycin while inpatient, as well as follow-up appointments for outpatient colonoscopy, urology due to what appeared to be some urinary retention despite the patient denying any symptoms of urinary retention and not having a significantly elevated PSA, as well as a appointment with pulmonology over in [place] in [employer]. Patient then subsequently had returned on the fourth due to the above-stated symptoms. And once again was noted to be bacteremic based on blood cultures and urine cultures. Due to the worsening of his C. difficile infection on the abdominal CT and the return of his blood cultures showing bacteremia, I contacted infectious disease over in [place] on 07/19/18. The recommendations from a bacteremia standpoint was to discontinue the IV Zosyn and have the patient start IV meropenem continue with the IV aztreonam. They recommended looking for a source of the infection including getting a SERAFIN which we are currently unable to do in our facility, as well as a tagged WBC scan after the C. difficile infection has been well-controlled. For the C. difficile infection infectious disease recommended oral vancomycin to be increased to 500 mg 4 times a day for course of 10-14 days as well as IV Flagyl 500 mg every 8 hours. Recommendation was also made for general surgery to be consulted as if the patient's symptoms worsened or severe and the patient ended up developing toxic megacolon or other possible GI complication that an emergent surgical intervention would be needed. These recommendations were put into place on 07/19/18, a repeat blood culture had also been obtained on 07/19/18 which came back today now growing gram-positive cocci. General surgery assess the patient yesterday and indicated that if he was improving that it would be okay to conservatively treat him here but if there are any signs or symptoms that would indicate that from a C. difficile infection standpoint that the patient may be worsened that he should be transferred soon as they would not be doing a emergency colectomy or surgical intervention in our institution. On assessment of the patient during today's morning rounds the patient indicated that he was having worsening abdominal pain and given the recognition by general surgery and the fact that we are unable to do a SERAFIN here as well decision was made to transfer the patient over to [facility] for a higher level of care and consultation of infectious disease. Patient states that he has seemed ID in [place] numerous times and is more comfortable in [place] then to be going to another institution. Disposition on discharge: Condition on discharge: Discharge medications: Follow-up instructions: Diagnosis: Stroke: No - Discharge Data Discharge Date: 07/21/18 Discharge Disposition: DC/Tfer to Acute Hospital 02 Condition: Fair - Patient Summary/Data Consults: Consultations 07/20/18 11:08 OT Evaluation and Treatment [CONS] Routine 07/20/18 11:17 Consult to Physician [CONS] Routine - Patient Instructions Diet: Regular Diet as Tolerated Activity: As Tolerated Driving: Do Not Drive Showering/Bathing: May Shower Wound/Incision Care: Keep Operative Site/Wound Site Clean and Dry Notify Provider of: Fever, Increased Pain, Swelling and Redness, Nausea and/or Vomiting - Discharge Plan Home Medications: Home Meds Finasteride 5 mg PO DAILY 01/11/16 [History] Fluticasone/Vilanterol [Breo Ellipta 200-25 Mcg INH] 1 inh INH DAILY 01/11/16 [ History] Testosterone [Androgel] 4 pump TOP DAILY 01/11/16 [History] Tiotropium Hodge [Spiriva Respimat] 2 puff INH BID 01/12/16 [History] Morphine 15 mg PO Q6H PRN #10 tablet 01/15/16 [Rx] Albuterol Sulfate 2.5 mg IH DAILY 05/19/18 [History] Icosapent Ethyl [Vascepa] 1 gm PO DAILY 05/19/18 [History] Pantoprazole [ProTONIX] 40 mg PO DAILY 05/19/18 [History] traZODone HCl [Trazodone HCl] 50 mg PO BEDTIME 05/20/18 [History] Iron Polysaccharides Complex [Ferrex 150] 150 mg PO DAILY 30 Days #30 cap [Rx] Albuterol [Proventil Neb Soln] 2.5 mg NEB Q4HR PRN #15 neb 06/29/18 [Rx] Diclofenac Sodium [Voltaren 1% Gel] 1 applic TP QID #1 tube 06/29/18 [Rx] Acetaminophen [Tylenol] 650 mg PO Q6H PRN tablet 07/21/18 [Rx] Albuterol [Proventil Neb Soln] 2.5 mg NEB Q4H PRN neb 07/21/18 [Rx] Apixaban [Eliquis] 5 mg PO BID tablet 07/21/18 [Rx] Aztreonam [Azactam] 2 gm IV Q8H vial 07/21/18 [Rx] Diltiazem [Cardizem CD] 240 mg PO DAILY cap.cd 07/21/18 [Rx] Gabapentin [Neurontin] 1,600 mg PO BID tablet 07/21/18 [Rx] HYDROmorphone [Dilaudid] 1 mg IVPUSH Q2H PRN syringe 07/21/18 [Rx] Meropenem [Merrem] 1 gm IV Q8H sdv 07/21/18 [Rx] Metoprolol Tartrate [Lopressor] 50 mg PO BID tablet 07/21/18 [Rx] Midodrine 2.5 mg PO BID tablet 07/21/18 [Rx] Morphine 15 mg PO Q6H PRN tablet 07/21/18 [Rx] Pharmacy to Dose - Vancomycin 1 dose .XX ASDIRECTED each 07/21/18 [Rx] Potassium Chloride [Klor-Con M20] 40 meq PO BID tab.er 07/21/18 [Rx] Sodium Chloride 0.9% [Saline Flush] 2.5 ml FLUSH ASDIRECTED PRN syringe [Rx] Sodium Chloride 0.9% [Saline Flush] 10 ml FLUSH ASDIRECTED PRN syringe [Rx] Vancomycin [First-Vancomycin 25 Compounding Kit] 500 mg PO Q6H bottle 07/21/18 [Rx] metroNIDAZOLE/Normal Saline [Flagyl 500 MG in NS 100 ML] 500 mg IV Q8H bag 01/01 [Rx] predniSONE 20 mg PO DAILY tablet 07/21/18 [Rx] Patient Handouts: Community-Acquired Pneumonia, Adult, [id number] Referrals: [facility] [Outside] Galdino Sanchez MD [Ordering Only Provider] - 08/03/18 10:00 am - Discharge Summary/Plan Comment DC Time >30 min.: Yes - Patient Data Vitals - Most Recent: Last Vital Signs Temp 37.0 C 07/21/18 11:05 Pulse 98 07/21/18 11:05 Resp 18 07/21/18 11:05 BP 128/77 07/21/18 11:05 Pulse Ox 98 07/21/18 11:05 Weight - Most Recent: 67.585 kg I&O - Last 24 hours: Intake & Output 07/20/18 07/21/18 07/21/18 22:59 06:59 14:59 Intake Total 480 400 Output Total 225 425 Balance 255 -25 Lab Results - Last 24 hrs: Laboratory Results - last 24 hr 07/21/18 07/21/18 Range/Units 05:36 05:36 WBC 9.51 (4.0-11.0) K/uL RBC 3.34 L (4.50-5.90) M/uL Hgb 8.8 L (13.0-17.0) g/dL Hct 29.8 L (38.0-50.0) % MCV 89.2 (80.0-98.0) fL MCH 26.3 L (27.0-32.0) pg MCHC 29.5 L (31.0-37.0) g/dL RDW Std Deviation 62.4 H (28.0-62.0) fl RDW Coeff of Tre 19 H (11.0-15.0) % Plt Count 298 (150-400) K/uL MPV 9.50 (7.40-12.00) fL Add Manual Diff YES Neutrophils % (Manual) 76 (48.0-80.0) % Band Neutrophils % 4 % Lymphocytes % (Manual) 13 L (16.0-40.0) % Monocytes % (Manual) 6 (0.0-15.0) % Eosinophils % (Manual) 1 (0.0-7.0) % Nucleated RBC % 0.0 /100WBC Absolute Seg Neuts 7.2 H (1.4-5.7) Band Neutrophils # 0.4 Lymphocytes # (Manual) 1.2 (0.6-2.4) Monocytes # (Manual) 0.6 (0.0-0.8) Eosinophils # (Manual) 0.1 (0.0-0.7) Nucleated RBCs # 0 K/uL Sodium 138 (136-148) mmol/L Potassium 5.3 H (3.5-5.1) mmol/L Chloride 107 (98-107) mmol/L Carbon Dioxide 26.0 (21.0-32.0) mmol/L BUN 20 H (7.0-18.0) mg/dL Creatinine 1.0 (0.8-1.3) mg/dL Est Cr Clr Drug Dosing 67.42 mL/min Estimated GFR (MDRD) > 60.0 ml/min Glucose 88 (74-106) mg/dL Calcium 7.9 L (8.5-10.1) mg/dL Magnesium 1.8 (1.8-2.4) mg/dL Total Bilirubin 0.1 L (0.2-1.0) mg/dL AST 31 (15-37) IU/L ALT 37 (14-63) IU/L Alkaline Phosphatase 62 (46-116) U/L Total Protein 5.4 L (6.4-8.2) g/dL Albumin 1.4 L (3.4-5.0) g/dL Globulin 4.0 (2.6-4.0) g/dL Albumin/Globulin Ratio 0.4 L (0.9-1.6) SHILOH Results - Last 24 hrs: Microbiology 07/19/18 15:32 Aerobic Blood Culture - Preliminary Blood - Venous Gram Positive Cocci Anaerobic Blood Culture - Final 07/17/18 18:38 Aerobic Blood Culture - Preliminary Blood - Venous NO GROWTH AFTER 3 DAYS Anaerobic Blood Culture - Final 07/17/18 18:59 Aerobic Blood Culture - Preliminary Blood - Venous - Lab Draw NO GROWTH AFTER 3 DAYS Anaerobic Blood Culture - Final Escherichia Coli 07/19/18 15:48 Aerobic Blood Culture - Preliminary Blood - Venous - Lab Draw NO GROWTH AFTER 1 DAY Anaerobic Blood Culture - Preliminary NO GROWTH AFTER 1 DAY 07/17/18 22:35 Urine Culture - Final Urine, Bladder Escherichia Coli Normal Urogenital Pao Med Orders - Current: Current Medications Acetaminophen (Tylenol) 650 mg PO Q6H PRN PRN Reason: Pain/Fever Albuterol (Proventil Neb Soln) 2.5 mg NEB Q4H PRN PRN Reason: Shortness of Breath Apixaban (Eliquis) 5 mg PO BID [facility] Last Admin: 07/21/18 09:04 Dose: 5 mg Diltiazem HCl (Cardizem Cd) 240 mg PO DAILY [facility] Last Admin: 07/21/18 09:03 Dose: 240 mg Gabapentin (Neurontin) 1,600 mg PO BID [facility] Last Admin: 07/21/18 08:41 Dose: 1,600 mg Hydromorphone HCl (Dilaudid) 1 mg IVPUSH Q2H PRN PRN Reason: Pain Last Admin: 07/21/18 09:15 Dose: 1 mg Aztreonam 2 gm/ Sodium (Chloride) 50 mls @ 100 mls/hr IV Q8H [facility] Last Admin: 07/21/18 10:38 Dose: 100 mls/hr Meropenem 1 gm/ Sodium (Chloride) 50 mls @ 100 mls/hr IV Q8H [facility] Last Admin: 07/21/18 08:13 Dose: 100 mls/hr Metronidazole 500 mg/ Premix 100 mls @ 100 mls/hr IV Q8H [facility] Last Admin: 07/21/18 09:15 Dose: 100 mls/hr Metoprolol Tartrate (Lopressor) 50 mg PO BID [facility] Last Admin: 07/21/18 09:04 Dose: 50 mg Midodrine (Midodrine) 2.5 mg PO BID [facility] Last Admin: 07/21/18 09:04 Dose: 2.5 mg Morphine Sulfate (Morphine) 15 mg PO Q6H PRN PRN Reason: Pain Last Admin: 07/21/18 09:00 Dose: 15 mg Potassium Chloride (Klor-Con M20) 40 meq PO BID [facility] Last Admin: 07/21/18 09:04 Dose: 40 meq Prednisone (Prednisone) 20 mg PO DAILY [facility] Last Admin: 07/21/18 09:04 Dose: 20 mg Sodium Chloride (Saline Flush) 10 ml FLUSH ASDIRECTED PRN PRN Reason: Keep Vein Open Sodium Chloride (Saline Flush) 2.5 ml FLUSH ASDIRECTED PRN PRN Reason: Keep Vein Open Vancomycin HCl (Pharmacy To Dose - Vancomycin) 1 dose .XX ASDIRECTED DANIELITO Vancomycin HCl (First-Vancomycin 25 Compounding Kit) 500 mg PO Q6H [facility] Last Admin: 07/21/18 09:27 Dose: 20 ml Discontinued Medications Acetaminophen (Tylenol Extra Strength) 1,000 mg PO ONETIME ONE Stop: 07/17/18 18:45 Last Admin: 07/17/18 18:58 Dose: 1,000 mg Albuterol/Ipratropium (Duoneb 3.0-0.5 Mg/3 Ml) 3 ml NEB ONETIME ONE Stop: 07/17/18 19:21 Last Admin: 07/17/18 19:32 Dose: 3 ml Hydromorphone HCl (Dilaudid) 0.5 mg IVPUSH Q3H PRN PRN Reason: Pain Hydromorphone HCl (Dilaudid) 0.5 mg IVPUSH Q3H PRN PRN Reason: Pain Last Admin: 07/19/18 10:13 Dose: 0.5 mg Sodium Chloride (Normal Saline) 1,000 mls @ 999 mls/hr IV STAT ONE Stop: 07/17/18 19:36 Last Admin: 07/17/18 18:54 Dose: 999 mls/hr Piperacillin Sod/Tazobactam (Sod 3.375 gm/ Sodium Chloride) 50 mls @ 100 mls/ hr IV ONETIME ONE Stop: 07/17/18 19:46 Last Admin: 07/17/18 19:36 Dose: 100 mls/hr Vancomycin HCl 1 gm/ Sodium (Chloride) 250 mls @ 250 mls/hr IV ONETIME ONE Stop: 07/17/18 20:16 Last Admin: 07/17/18 20:15 Dose: 250 mls/hr Sodium Chloride (Normal Saline) 1,000 mls @ 125 mls/hr IV ASDIRECTED [facility]ANIELITO Last Admin: 07/19/18 11:15 Dose: 125 mls/hr Vancomycin HCl 1 gm/ Sodium (Chloride) 250 mls @ 166 mls/hr IV ONETIME ONE Stop: 07/18/18 01:15 Last Admin: 07/18/18 00:41 Dose: 166 mls/hr Vancomycin HCl 1 gm/ Sodium (Chloride) 250 mls @ 166 mls/hr IV Q12H [facility] Last Admin: 07/18/18 23:56 Dose: 166 mls/hr Aztreonam 2 gm/ Sodium (Chloride) 50 mls @ 100 mls/hr IV Q8H [facility] Last Admin: 07/18/18 01:58 Dose: Not Given Piperacillin Sod/Tazobactam (Sod 4.5 gm/ Sodium Chloride) 100 mls @ 100 mls/hr IV Q6H [facility] Last Admin: 07/19/18 14:25 Dose: 100 mls/hr Morphine Sulfate (Morphine) 15 mg PO Q6H PRN PRN Reason: Pain Vancomycin HCl (First-Vancomycin 25 Compounding Kit) 125 mg PO Q6H [facility] Last Admin: 07/19/18 11:19 Dose: 125 mg <Mian Gonsalves J - Last Filed: 07/24/18 14:02> Discharge Summary - Patient Summary/Data Consults: Consultations 07/20/18 11:08 OT Evaluation and Treatment [CONS] Routine 07/20/18 11:17 Consult to Physician [CONS] Routine - Patient Data Vitals - Most Recent: Last Vital Signs Temp 37.0 C 07/21/18 11:05 Pulse 98 07/21/18 11:05 Resp 18 07/21/18 11:05 BP 128/77 07/21/18 11:05 Pulse Ox 98 07/21/18 11:05 SHILOH Results - Last 24 hrs: Microbiology 07/19/18 15:48 Aerobic Blood Culture - Preliminary Blood - Venous - Lab Draw NO GROWTH AFTER 4 DAYS Anaerobic Blood Culture - Preliminary NO GROWTH AFTER 4 DAYS Med Orders - Current: Current Medications Discontinued Medications Acetaminophen (Tylenol Extra Strength) 1,000 mg PO ONETIME ONE Stop: 07/17/18 18:45 Last Admin: 07/17/18 18:58 Dose: 1,000 mg Acetaminophen (Tylenol) 650 mg PO Q6H PRN PRN Reason: Pain/Fever Albuterol (Proventil Neb Soln) 2.5 mg NEB Q4H PRN PRN Reason: Shortness of Breath Albuterol/Ipratropium (Duoneb 3.0-0.5 Mg/3 Ml) 3 ml NEB ONETIME ONE Stop: 07/17/18 19:21 Last Admin: 07/17/18 19:32 Dose: 3 ml Apixaban (Eliquis) 5 mg PO BID [facility] Last Admin: 07/21/18 09:04 Dose: 5 mg Diltiazem HCl (Cardizem Cd) 240 mg PO DAILY [facility] Last Admin: 07/21/18 09:03 Dose: 240 mg Gabapentin (Neurontin) 1,600 mg PO BID [facility] Last Admin: 07/21/18 08:41 Dose: 1,600 mg Hydromorphone HCl (Dilaudid) 0.5 mg IVPUSH Q3H PRN PRN Reason: Pain Hydromorphone HCl (Dilaudid) 0.5 mg IVPUSH Q3H PRN PRN Reason: Pain Last Admin: 07/19/18 10:13 Dose: 0.5 mg Hydromorphone HCl (Dilaudid) 1 mg IVPUSH Q2H PRN PRN Reason: Pain Last Admin: 07/21/18 11:32 Dose: 1 mg Sodium Chloride (Normal Saline) 1,000 mls @ 999 mls/hr IV STAT ONE Stop: 07/17/18 19:36 Last Admin: 07/17/18 18:54 Dose: 999 mls/hr Piperacillin Sod/Tazobactam (Sod 3.375 gm/ Sodium Chloride) 50 mls @ 100 mls/ hr IV ONETIME ONE Stop: 07/17/18 19:46 Last Admin: 07/17/18 19:36 Dose: 100 mls/hr Vancomycin HCl 1 gm/ Sodium (Chloride) 250 mls @ 250 mls/hr IV ONETIME ONE Stop: 07/17/18 20:16 Last Admin: 07/17/18 20:15 Dose: 250 mls/hr Sodium Chloride (Normal Saline) 1,000 mls @ 125 mls/hr IV ASDIRECTED [facility] Last Admin: 07/19/18 11:15 Dose: 125 mls/hr Vancomycin HCl 1 gm/ Sodium (Chloride) 250 mls @ 166 mls/hr IV ONETIME ONE Stop: 07/18/18 01:15 Last Admin: 07/18/18 00:41 Dose: 166 mls/hr Vancomycin HCl 1 gm/ Sodium (Chloride) 250 mls @ 166 mls/hr IV Q12H [facility] Last Admin: 07/18/18 23:56 Dose: 166 mls/hr Aztreonam 2 gm/ Sodium (Chloride) 50 mls @ 100 mls/hr IV Q8H [facility] Last Admin: 07/18/18 01:58 Dose: Not Given Piperacillin Sod/Tazobactam (Sod 4.5 gm/ Sodium Chloride) 100 mls @ 100 mls/hr IV Q6H [facility] Last Admin: 07/19/18 14:25 Dose: 100 mls/hr Aztreonam 2 gm/ Sodium (Chloride) 50 mls @ 100 mls/hr IV Q8H [facility] Last Admin: 07/21/18 10:38 Dose: 100 mls/hr Meropenem 1 gm/ Sodium (Chloride) 50 mls @ 100 mls/hr IV Q8H [facility] Last Admin: 07/21/18 08:13 Dose: 100 mls/hr Metronidazole 500 mg/ Premix 100 mls @ 100 mls/hr IV Q8H [facility] Last Admin: 07/21/18 09:15 Dose: 100 mls/hr Metoprolol Tartrate (Lopressor) 50 mg PO BID [facility] Last Admin: 07/21/18 09:04 Dose: 50 mg Midodrine (Midodrine) 2.5 mg PO BID [facility] Last Admin: 07/21/18 09:04 Dose: 2.5 mg Morphine Sulfate (Morphine) 15 mg PO Q6H PRN PRN Reason: Pain Morphine Sulfate (Morphine) 15 mg PO Q6H PRN PRN Reason: Pain Last Admin: 07/21/18 09:00 Dose: 15 mg Potassium Chloride (Klor-Con M20) 40 meq PO BID [facility] Last Admin: 07/21/18 09:04 Dose: 40 meq Prednisone (Prednisone) 20 mg PO DAILY [facility] Last Admin: 07/21/18 09:04 Dose: 20 mg Sodium Chloride (Saline Flush) 10 ml FLUSH ASDIRECTED PRN PRN Reason: Keep Vein Open Sodium Chloride (Saline Flush) 2.5 ml FLUSH ASDIRECTED PRN PRN Reason: Keep Vein Open Vancomycin HCl (First-Vancomycin 25 Compounding Kit) 125 mg PO Q6H [facility] Last Admin: 07/19/18 11:19 Dose: 125 mg Vancomycin HCl (Pharmacy To Dose - Vancomycin) 1 dose .XX ASDIRECTED [facility] Vancomycin HCl (First-Vancomycin 25 Compounding Kit) 500 mg PO Q6H [facility] Last Admin: 07/21/18 09:27 Dose: 20 ml - Free Text/Narrative Note: I have seen and evaluated the patient. I have discussed findings and treatment plan with the resident. I agree with the assessment and plan outlined in the following note.
--- NOTE | 2018-07-24 10:16 | CR ---
EXAM DATE: 07/18/18 PATIENT'S AGE: 58 Patient: VITA ALDRIDGE Facility: [facility] . Site : [id number] Study: XRay-Extremity Right WRIST [id number]/7/2019 11:44:29 AM Ordering Physician: Major Pappas Final Report: Indication: Difficulty with wrist extension Technique: Three views right wrist Comparison: None Findings: Bones: Alignment is normal. No fractures or bone lesions. Joint spaces: Unremarkable. Soft tissues: Unremarkable. Impression: Negative. Dictated by Pratima Ozuna MD @ Jul 21 2018 9:21PM Signed by: Pratima Ozuna MD @07/21/2018 9:22:50 PM (Electronic Signature) Report Signed by Proxy. MARIO
== END 2018-07-21 12:45 | DRG 372 ==
LOC: MW.ED 18:15 → MW.MS 20:51 → OBSVTOIN 07-18 13:42
PROVIDERS: ADMIT Internal Medicine; ATTEND Internal Medicine
DX: J18.9 Pneumonia, unspecified organism (principal); A04.71 Enterocolitis due to Clostridium difficile, recurrent; B44.9 Aspergillosis, unspecified; A04.72 Enterocolitis due to Clostridium difficile, not specified as recurrent; L97.421 Non-pressure chronic ulcer of left heel and midfoot limited to breakdown of skin; I42.9 Cardiomyopathy, unspecified; R78.81 Bacteremia; N39.0 Urinary tract infection, site not specified; L03.113 Cellulitis of right upper limb; L03.116 Cellulitis of left lower limb; I48.91 Unspecified atrial fibrillation; L97.529 Non-pressure chronic ulcer of other part of left foot with unspecified severity; G93.89 Other specified disorders of brain; I50.9 Heart failure, unspecified; I11.0 Hypertensive heart disease with heart failure; E87.5 Hyperkalemia; B96.20 Unspecified Escherichia coli [E. coli] as the cause of diseases classified elsewhere; J45.909 Unspecified asthma, uncomplicated; K21.9 Gastro-esophageal reflux disease without esophagitis; M19.90 Unspecified osteoarthritis, unspecified site; M54.9 Dorsalgia, unspecified; G89.29 Other chronic pain; M10.9 Gout, unspecified; M06.9 Rheumatoid arthritis, unspecified; M81.0 Age-related osteoporosis without current pathological fracture; G62.9 Polyneuropathy, unspecified; F32.9 Major depressive disorder, single episode, unspecified; T38.0X5A Adverse effect of glucocorticoids and synthetic analogues, initial encounter; I25.2 Old myocardial infarction; Z79.01 Long term (current) use of anticoagulants; Z85.820 Personal history of malignant melanoma of skin; Z87.01 Personal history of pneumonia (recurrent); Z96.612 Presence of left artificial shoulder joint; Z88.8 Allergy status to other drugs, medicaments and biological substances; Z79.899 Other long term (current) drug therapy; R50.9 Fever, unspecified; R60.0 Localized edema; L53.9 Erythematous condition, unspecified; R47.81 Slurred speech; R53.1 Weakness; Z86.718 Personal history of other venous thrombosis and embolism; Z86.711 Personal history of pulmonary embolism; Z90.5 Acquired absence of kidney; Z90.2 Acquired absence of lung [part of]; Z87.442 Personal history of urinary calculi; Z87.440 Personal history of urinary (tract) infections; Z86.73 Personal history of transient ischemic attack (TIA), and cerebral infarction without residual deficits; Z89.421 Acquired absence of other right toe(s); Z79.52 Long term (current) use of systemic steroids
CPT/HCPCS: 36415; 70450; 71045; 71250; 74176; 80053; 81001; 83605 ×2; 84484; 85025; 87040 ×2; 87086; 93005; 94640; 96361; 96365; 96367; 99285; A9270 ×6; J2543 ×3; J3370 ×3; J3490 ×2; J7030 ×2; J7040 ×3; J7050 ×6; 73110-26-RT; 73110-RT; 80202; 83735; 86140; 87077; 87088; 87186; 96366; 96376; 99283; G0378; J1170; J2185; J7620-GY

== ENCOUNTER 2018-08-04 11:54 | Observation (INO) | payer MEDICARE, OTHER ==
--- NOTE | 2018-08-04 12:29 | EDM.PDOC ---
ED HPI GENERAL MEDICAL PROBLEM - General Chief Complaint: Respiratory Problem Stated Complaint: UNKOWN Time Seen by Provider: 08/04/18 12:29 Source of Information: Reports: Patient History Limitations: Reports: No Limitations - History of Present Illness INITIAL COMMENTS - FREE TEXT/NARRATIVE: HISTORY AND PHYSICAL: History of present illness: Patient is a 58-year-old male presents to the ED for concern of low oxygen saturation. Per patient and his home health nurse was concerned that he had a low oxygen level and advised him to come into the ED. He is currently being treated for a wound of the left lower leg. He had been admitted on 07/02/18 for treatment of synovitis of the left foot and right hand and is also being treated for C. difficile at that time. He then presented to the ED for weakness and fever and was admitted on 07/18/18 for treatment of pneumonia. Patient has history of atrial fibrillation on Eliquis, bronchial pulmonary aspergillosis on chronic prednisone, lobectomy. Patient states that he has had some increased shortness of breath recently and has had a cough where he is coughing up brown sputum. His son states that he seems like he is nodding off mid sentence when he is talking to him. Nursing staff not able to assess patients oxygen saturation on arrival, unable to get a good pleth or accurate reading but patient is talking clearly in full sentences without any signs of respiratory distress. Review of systems: As per history of present illness and below otherwise all systems reviewed and negative. Past medical history: As per history of present illness and as reviewed below otherwise noncontributory. Surgical history: As per history of present illness and as reviewed below otherwise noncontributory. Social history: No reported history of drug or alcohol abuse. Family history: As per history of present illness and as reviewed below otherwise noncontributory. Physical exam: General: Patient sitting comfortably in no acute distress and nontoxic appearing HEENT: Atraumatic, normocephalic, pupils reactive, negative for conjunctival pallor or scleral icterus, mucous membranes moist, throat clear, neck supple, nontender, trachea midline. No meningeal signs. Lungs: Diffuse rhonchi and wheezing throughout all lung daniels, chest nontender. Heart: S1S2, regular, negative for clicks, rubs, or overt murmur. Abdomen: Soft, nondistended, nontender. Negative for masses or hepatosplenomegaly. Negative for costovertebral tenderness. No rigidity, rebound , guarding. Pelvis: Stable nontender. Genitourinary: Deferred. Rectal: Deferred. Extremities: Atraumatic, negative for cords or calf pain. Neurovascular unremarkable. Neuro: Awake, alert, oriented. Cranial nerves II through XII unremarkable. Cerebellum unremarkable. Motor and sensory unremarkable throughout. Exam nonfocal. Notes: Patient's O2 is 92% on 2L nasal cannula after DuoNeb. Chest x-ray shows a mild interstitial prominence within the lungs without focal consolidations. Diagnostics: CBC, CMP, EKG, CXR Therapeutics: DuoNeb Prescriptions: Impression: Hypoxia, Aspergillosis Plan: Discussed with Dr. Kang, patient admitted to observation on telemetry for hypoxia Definitive disposition and diagnosis as appropriate pending reevaluation and review of above. Generalized Pain Score (Numeric/FACES): 8 - Related Data Allergies Allergy/AdvReac Type Severity Reaction Status Date / Time itraconazole [From Sporanox] Allergy Unknown Confusion Verified 07/17/18 18:24 levofloxacin [From Levaquin] Allergy Unknown Other Verified 07/17/18 18:24 Home Meds: Home Meds Finasteride 5 mg PO DAILY 01/11/16 [History] Fluticasone/Vilanterol [Breo Ellipta 200-25 Mcg INH] 1 inh INH DAILY 01/11/16 [ History] Testosterone [Androgel] 4 pump TOP DAILY 01/11/16 [History] Tiotropium [place] [Spiriva Respimat] 2 puff INH BID 01/12/16 [History] Morphine 15 mg PO Q6H PRN #10 tablet 01/15/16 [Rx] Albuterol Sulfate 2.5 mg IH DAILY 05/19/18 [History] Icosapent Ethyl [Vascepa] 1 gm PO DAILY 05/19/18 [History] Pantoprazole [ProTONIX] 40 mg PO DAILY 05/19/18 [History] traZODone HCl [Trazodone HCl] 50 mg PO BEDTIME 05/20/18 [History] Iron Polysaccharides Complex [Ferrex 150] 150 mg PO DAILY 30 Days #30 cap [Rx] Albuterol [Proventil Neb Soln] 2.5 mg NEB Q4HR PRN #15 neb 06/29/18 [Rx] Diclofenac Sodium [Voltaren 1% Gel] 1 applic TP QID #1 tube 06/29/18 [Rx] Acetaminophen [Tylenol] 650 mg PO Q6H PRN tablet 07/21/18 [Rx] Albuterol [Proventil Neb Soln] 2.5 mg NEB Q4H PRN neb 07/21/18 [Rx] Apixaban [Eliquis] 5 mg PO BID tablet 07/21/18 [Rx] Aztreonam [Azactam] 2 gm IV Q8H vial 07/21/18 [Rx] Diltiazem [Cardizem CD] 240 mg PO DAILY cap.cd 07/21/18 [Rx] Gabapentin [Neurontin] 1,600 mg PO BID tablet 07/21/18 [Rx] HYDROmorphone [Dilaudid] 1 mg IVPUSH Q2H PRN syringe 07/21/18 [Rx] Meropenem [Merrem] 1 gm IV Q8H sdv 07/21/18 [Rx] Metoprolol Tartrate [Lopressor] 50 mg PO BID tablet 07/21/18 [Rx] Midodrine 2.5 mg PO BID tablet 07/21/18 [Rx] Morphine 15 mg PO Q6H PRN tablet 07/21/18 [Rx] Pharmacy to Dose - Vancomycin 1 dose .XX ASDIRECTED each 07/21/18 [Rx] Potassium Chloride [Klor-Con M20] 40 meq PO BID tab.er 07/21/18 [Rx] Sodium Chloride 0.9% [Saline Flush] 2.5 ml FLUSH ASDIRECTED PRN syringe [Rx] Sodium Chloride 0.9% [Saline Flush] 10 ml FLUSH ASDIRECTED PRN syringe [Rx] Vancomycin [First-Vancomycin 25 Compounding Kit] 500 mg PO Q6H bottle 07/21/18 [Rx] metroNIDAZOLE/Normal Saline [Flagyl 500 MG in NS 100 ML] 500 mg IV Q8H bag 01/01 [Rx] predniSONE 20 mg PO DAILY tablet 07/21/18 [Rx] Past Medical History HEENT History: Reports: Cataract Other HEENT History: dental fillings due to caries; recent tooth fracture Cardiovascular History: Reports: Afib, Cardiomyopathy, Heart Failure, Hypertension, VA Respiratory History: Reports: Asthma, Bronchitis, Recurrent, PE, Pneumonia, Recurrent, Other (See Below) Other Respiratory History: Chronic pulmonary aspergillosis, 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 No explantation- -they apparently just treated him with IV abx for months. - Past Surgical History Head Surgeries/Procedures: Reports: None HEENT Surgical History: Reports: Cataract Surgery Cardiovascular Surgical History: Reports: None Respiratory Surgical History: Reports: Lung Resection Other Respiratory Surgeries/Procedures: intubated last Feb 2018 and transfered to [facility] Surgical History: Reports: None Male Surgical History: Reports: None Endocrine Surgical History: Reports: None Neurological Surgical History: Reports: None Musculoskeletal Surgical History: Reports: Shoulder Surgery, Other (See Below) Other Musculoskeletal Surgeries/Procedures:: L shoulder and left hip surgery Oncologic Surgical History: Reports: None Dermatological Surgical History: Reports: None Social & Family History - Family History Family Medical History: Noncontributory - Tobacco Use Smoking Status *Q: Never Smoker - Caffeine Use Caffeine Use: Reports: Coffee - Recreational Drug Use Recreational Drug Use: No - Living Situation & Occupation Living situation: Reports: Single Occupation: Disabled ED ROS GENERAL - Review of Systems Review Of Systems: ROS reveals no pertinent complaints other than HPI. ED EXAM, GENERAL - Physical Exam Exam: See Below (see dictation) Course - Vital Signs Last Recorded V/S: Last Vital Signs Temp 99.6 F 08/04/18 12:03 Pulse 84 08/04/18 12:03 Resp 18 08/04/18 12:03 BP 111/72 08/04/18 12:03 Pulse Ox - Orders/Labs/Meds Orders: Active Orders 24 hr Category Date Time Status EKG Documentation Completion [RC] STAT Care 08/04/18 12:21 Active RT Aerosol Therapy [RC] ASDIRECTED Care 08/04/18 12:49 Active CULTURE BLOOD [BC] Stat Lab 08/04/18 13:40 Received CULTURE BLOOD [BC] Stat Lab 08/04/18 13:55 Received Blood Culture x2 Reflex Set [OM.PC] Stat Oth 08/04/18 13:10 Ordered Labs: Laboratory Tests 08/04/18 08/04/18 08/04/18 Range/Units 12:34 12:34 13:40 WBC 11.84 H (4.0-11.0) K/uL RBC 3.44 L (4.50-5.90) M/uL Hgb 9.2 L (13.0-17.0) g/dL Hct 32.0 L (38.0-50.0) % MCV 93.0 (80.0-98.0) fL MCH 26.7 L (27.0-32.0) pg MCHC 28.8 L (31.0-37.0) g/dL RDW Std Deviation 67.8 H (28.0-62.0) fl RDW Coeff of Tre 20 H (11.0-15.0) % Plt Count 309 (150-400) K/uL MPV 9.20 (7.40-12.00) fL Add Manual Diff YES Neutrophils % (Manual) 86 H (48.0-80.0) % Band Neutrophils % 5 % Lymphocytes % (Manual) 6 L (16.0-40.0) % Eosinophils % (Manual) 2 (0.0-7.0) % Basophils % (Manual) 1 (0.0-1.5) % Nucleated RBC % 0.3 /100WBC Absolute Seg Neuts 10.2 H (1.4-5.7) Band Neutrophils # 0.6 Lymphocytes # (Manual) 0.7 (0.6-2.4) Eosinophils # (Manual) 0.2 (0.0-0.7) Basophils # (Manual) 0.1 (0.0-0.1) Nucleated RBCs # 0 K/uL ABG pH (7.35-7.45) ABG pCO2 (35-45) mmHG ABG pO2 (75-100) mmHG ABG HCO3 (22-26) mEq/L ABG Total CO2 ABG Base Excess (-2.0-2.0) Lactate 1.2 (0.20-2.00) mmol/L Sodium 131 L (136-148) mmol/L Potassium 5.4 H (3.5-5.1) mmol/L Chloride 97 L (98-107) mmol/L Carbon Dioxide 31.1 (21.0-32.0) mmol/L BUN 24 H (7.0-18.0) mg/dL Creatinine 1.3 (0.8-1.3) mg/dL Est Cr Clr Drug Dosing TNP Estimated GFR (MDRD) 56.7 ml/min Glucose 152 H (74-106) mg/dL Calcium 9.0 (8.5-10.1) mg/dL Total Bilirubin 0.4 (0.2-1.0) mg/dL AST 20 (15-37) IU/L ALT 13 L (14-63) IU/L Alkaline Phosphatase 82 (46-116) U/L Troponin I < 0.050 (0.000-0.056) ng/mL B-Natriuretic Peptide (<100) PG/ML Total Protein 7.2 (6.4-8.2) g/dL Albumin 2.4 L (3.4-5.0) g/dL Globulin 4.8 H (2.6-4.0) g/dL Albumin/Globulin Ratio 0.5 L (0.9-1.6) 08/04/18 08/04/18 Range/Units 13:49 14:35 WBC (4.0-11.0) K/uL RBC (4.50-5.90) M/uL Hgb (13.0-17.0) g/dL Hct (38.0-50.0) % MCV (80.0-98.0) fL MCH (27.0-32.0) pg MCHC (31.0-37.0) g/dL RDW Std Deviation (28.0-62.0) fl RDW Coeff of Tre (11.0-15.0) % Plt Count (150-400) K/uL MPV (7.40-12.00) fL Add Manual Diff Neutrophils % (Manual) (48.0-80.0) % Band Neutrophils % % Lymphocytes % (Manual) (16.0-40.0) % Eosinophils % (Manual) (0.0-7.0) % Basophils % (Manual) (0.0-1.5) % Nucleated RBC % /100WBC Absolute Seg Neuts (1.4-5.7) Band Neutrophils # Lymphocytes # (Manual) (0.6-2.4) Eosinophils # (Manual) (0.0-0.7) Basophils # (Manual) (0.0-0.1) Nucleated RBCs # K/uL ABG pH 7.359 (7.35-7.45) ABG pCO2 59 H (35-45) mmHG ABG pO2 55 L (75-100) mmHG ABG HCO3 33 H (22-26) mEq/L ABG Total CO2 31.8 ABG Base Excess 6.7 H (-2.0-2.0) Lactate (0.20-2.00) mmol/L Sodium (136-148) mmol/L Potassium (3.5-5.1) mmol/L Chloride (98-107) mmol/L Carbon Dioxide (21.0-32.0) mmol/L BUN (7.0-18.0) mg/dL Creatinine (0.8-1.3) mg/dL Est Cr Clr Drug Dosing Estimated GFR (MDRD) ml/min Glucose (74-106) mg/dL Calcium (8.5-10.1) mg/dL Total Bilirubin (0.2-1.0) mg/dL AST (15-37) IU/L ALT (14-63) IU/L Alkaline Phosphatase (46-116) U/L Troponin I (0.000-0.056) ng/mL B-Natriuretic Peptide 338 H (<100) PG/ML Total Protein (6.4-8.2) g/dL Albumin (3.4-5.0) g/dL Globulin (2.6-4.0) g/dL Albumin/Globulin Ratio (0.9-1.6) Meds: Medications Discontinued Medications Generic Name Dose Route Start Last Admin Trade Name Freq PRN Reason Stop Dose Admin Albuterol/Ipratropium 3 ml 08/04/18 12:49 08/04/18 14:04 Duoneb 3.0-0.5 Mg/3 Ml NEB 08/04/18 12:50 3 ml ONETIME ONE Administration Departure - Departure Time of Disposition: 14:58 Disposition: Home, Self-Care 01 Condition: Good Clinical Impression: Hypoxia, Aspergillosis - Discharge Information Referrals: PCP,None [Primary Care Provider] - Forms: ED Department Discharge - My Orders Last 24 Hours: My Active Orders 08/04/18 12:21 EKG Documentation Completion [RC] STAT 08/04/18 12:49 RT Aerosol Therapy [RC] ASDIRECTED 08/04/18 13:10 Blood Culture x2 Reflex Set [OM.PC] Stat 08/04/18 13:40 CULTURE BLOOD [BC] Stat 08/04/18 13:55 CULTURE BLOOD [BC] Stat - Assessment/Plan Last 24 Hours: My Active Orders 08/04/18 12:21 EKG Documentation Completion [RC] STAT 08/04/18 12:49 RT Aerosol Therapy [RC] ASDIRECTED 08/04/18 13:10 Blood Culture x2 Reflex Set [OM.PC] Stat 08/04/18 13:40 CULTURE BLOOD [BC] Stat 08/04/18 13:55 CULTURE BLOOD [BC] Stat
[2018-08-04] MEDS ORDERED: Albuterol/Ipratropium 3.0-0.5 MG/3 ML Neb Soln NEB ONE (12:49)
[2018-08-04 13:14] LABS: CHLORIDE,CL 97 mmol/L (98-107); SODIUM,NA 131 mmol/L (136-148)
--- NOTE | 2018-08-04 13:26 | CR ---
EXAMINATION: Two-view chest (PA and Lateral views). HISTORY: Shortness of breath. FINDINGS: The trachea is midline. The cardiomediastinal silhouette is within normal limits. No pulmonary consolidations, effusions or pneumothorax. There is an interstitial prominence in the lungs bilaterally. Advanced degenerative changes noted within the right shoulder. Left shoulder replacement hardware demonstrated. IMPRESSION: Mild interstitial prominence within the lungs without focal consolidation.
[2018-08-04] MEDS ORDERED: methylPREDNISolone Sodium Succinate 125 MG/2 ML SDV IM ONE (15:09)
[2018-08-04] MEDS ORDERED: Sodium Chloride 0.9% 10 ML Syringe FLUSH PRN (15:38)
[2018-08-04] MEDS ORDERED: Sodium Chloride 0.9% 2.5 ML Syringe FLUSH PRN (15:38)
[2018-08-04] MEDS ORDERED: methylPREDNISolone Sodium Succinate 125 MG/2 ML SDV IVPUSH ONE (15:38)
[2018-08-04] MEDS ORDERED: MORPHINE 15 MG PO PRN (17:12)
[2018-08-04] MEDS ORDERED: Morphine 15 MG Tab PO PRN (17:12)
[2018-08-04] MEDS ORDERED: Albuterol 0.083% 2.5 MG/3 ML Neb Soln NEB PRN ×2 (17:12)
[2018-08-04] MEDS ORDERED: Temazepam 15 MG Cap PO PRN (17:19)
[2018-08-04] MEDS ORDERED: Acetaminophen 325 MG Tab PO PRN (17:19)
[2018-08-04] MEDS ORDERED: Ondansetron 4 MG Tab.DIS PO PRN (17:19)
[2018-08-04] MEDS ORDERED: Docusate Sodium 100 MG Cap PO PRN (17:19)
--- NOTE | 2018-08-04 17:22 | PCM.HP ---
H&P History of Present Illness - General Date of Service: 08/04/18 Admit Problem/Dx: Admission Diagnosis/Problem Admission Diagnosis/Problem Hypoxia Source of Information: Patient, Old Records History Limitations: Reports: No Limitations - History of Present Illness Initial Comments - Free Text/Narative: The patient is a chronically ill 58-year-old gentleman who had presented to the emergency department with a complaint of shortness of breath. The patient has a history of multiple admissions and ER visits over the past 3 months. The patient was last discharged from acute hospitalization on July 21, 2018 where he was transferred to tertiary care center and he was discharged from there on July 28, 2018. He does have a history of aspergillosis and has been on chronic prednisone therapy. The patient also has a history of C. difficile colitis and had been taking oral vancomycin. Further, he does have a history of atrial fibrillation and has been on Eliquis for this. The patient also has been complaining primarily of shortness of breath and his home health nurse recorded his pulse oximetry around 70%. The patient also says that he has been having a productive cough of brown sputum. He has been complaining of pain in his lower back and his arms as well. The patient has denied any fever or chills. Patient also has been complaining of generalized fatigue. The patient also had been noted at his hospitalization at a tertiary care center that he had cellulitis of his left foot. This had been surgically provided and he says that this is improved. The patient has no other complaints at this time. Onset of Symptoms: Reports: Gradual Duration of Symptoms: Reports: Week(s): Location: Reports: Chest Quality: Reports: Same as Previous Episode Severity: Moderate Improves with: Reports: None Worsens with: Reports: None Associated Symptoms: Reports: cough w sputum, Diaphoresis, Shortness of Breath Generalized Pain Score (Numeric/FACES): 7 - Related Data Allergies/Adverse Reactions: Allergies Allergy/AdvReac Type Severity Reaction Status Date / Time itraconazole [From Sporanox] Allergy Unknown Confusion Verified 07/17/18 18:24 levofloxacin [From Levaquin] Allergy Unknown Other Verified 07/17/18 18:24 Home Medications: Home Meds Finasteride 5 mg PO DAILY 01/11/16 [History] Fluticasone/Vilanterol [Breo Ellipta 200-25 Mcg INH] 1 inh INH DAILY 01/11/16 [ History] Testosterone [Androgel] 4 pump TOP DAILY 01/11/16 [History] Tiotropium Carmichaels [Spiriva Respimat] 2 puff INH BID 01/12/16 [History] Morphine 15 mg PO Q6H PRN #10 tablet 01/15/16 [Rx] Albuterol Sulfate 2.5 mg IH DAILY 05/19/18 [History] Icosapent Ethyl [Vascepa] 1 gm PO DAILY 05/19/18 [History] Pantoprazole [ProTONIX] 40 mg PO DAILY 05/19/18 [History] traZODone HCl [Trazodone HCl] 50 mg PO BEDTIME 05/20/18 [History] Iron Polysaccharides Complex [Ferrex 150] 150 mg PO DAILY 30 Days #30 cap [Rx] Albuterol [Proventil Neb Soln] 2.5 mg NEB Q4HR PRN #15 neb 06/29/18 [Rx] Diclofenac Sodium [Voltaren 1% Gel] 1 applic TP QID #1 tube 06/29/18 [Rx] Acetaminophen [Tylenol] 650 mg PO Q6H PRN tablet 07/21/18 [Rx] Albuterol [Proventil Neb Soln] 2.5 mg NEB Q4H PRN neb 07/21/18 [Rx] Apixaban [Eliquis] 5 mg PO BID tablet 07/21/18 [Rx] Aztreonam [Azactam] 2 gm IV Q8H vial 07/21/18 [Rx] Diltiazem [Cardizem CD] 240 mg PO DAILY cap.cd 07/21/18 [Rx] Gabapentin [Neurontin] 1,600 mg PO BID tablet 07/21/18 [Rx] HYDROmorphone [Dilaudid] 1 mg IVPUSH Q2H PRN syringe 07/21/18 [Rx] Meropenem [Merrem] 1 gm IV Q8H sdv 07/21/18 [Rx] Metoprolol Tartrate [Lopressor] 50 mg PO BID tablet 07/21/18 [Rx] Midodrine 2.5 mg PO BID tablet 07/21/18 [Rx] Morphine 15 mg PO Q6H PRN tablet 07/21/18 [Rx] Pharmacy to Dose - Vancomycin 1 dose .XX ASDIRECTED each 07/21/18 [Rx] Potassium Chloride [Klor-Con M20] 40 meq PO BID tab.er 07/21/18 [Rx] Sodium Chloride 0.9% [Saline Flush] 2.5 ml FLUSH ASDIRECTED PRN syringe [Rx] Sodium Chloride 0.9% [Saline Flush] 10 ml FLUSH ASDIRECTED PRN syringe [Rx] Vancomycin [First-Vancomycin 25 Compounding Kit] 500 mg PO Q6H bottle 07/21/18 [Rx] metroNIDAZOLE/Normal Saline [Flagyl 500 MG in NS 100 ML] 500 mg IV Q8H bag 01/01 [Rx] predniSONE 20 mg PO DAILY tablet 07/21/18 [Rx] Past Medical History HEENT History: Reports: Cataract Other HEENT History: dental fillings due to caries; recent tooth fracture Cardiovascular History: Reports: Afib, Cardiomyopathy, Heart Failure, Hypertension, [place] Respiratory History: Reports: Asthma, Bronchitis, Recurrent, PE, Pneumonia, Recurrent, Other (See Below) Other Respiratory History: Chronic pulmonary aspergillosis, 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 No explantation- -they apparently just treated him with IV abx for months. - Past Surgical History Head Surgeries/Procedures: Reports: None HEENT Surgical History: Reports: Cataract Surgery Cardiovascular Surgical History: Reports: None Respiratory Surgical History: Reports: Lung Resection Other Respiratory Surgeries/Procedures: intubated last Feb 2018 and transfered to [facility] Surgical History: Reports: None Male Surgical History: Reports: None Endocrine Surgical History: Reports: None Neurological Surgical History: Reports: None Musculoskeletal Surgical History: Reports: Shoulder Surgery, Other (See Below) Other Musculoskeletal Surgeries/Procedures:: L shoulder and left hip surgery Oncologic Surgical History: Reports: None Dermatological Surgical History: Reports: None Social & Family History - Family History Family Medical History: Noncontributory - Tobacco Use Smoking Status *Q: Never Smoker - Caffeine Use Caffeine Use: Reports: Coffee - Recreational Drug Use Recreational Drug Use: No - Living Situation & Occupation Living situation: Reports: Single Occupation: Disabled H&P Review of Systems - Review of Systems: Review Of Systems: See Below General: Reports: Fatigue HEENT: Reports: No Symptoms Pulmonary: Reports: Shortness of Breath, Cough, Sputum Cardiovascular: Reports: No Symptoms Gastrointestinal: Reports: No Symptoms Genitourinary: Reports: No Symptoms Musculoskeletal: Reports: Back Pain, Muscle Stiffness Skin: Reports: Dryness, Bruising, Rash, Wound Psychiatric: Reports: No Symptoms Neurological: Reports: No Symptoms Hematologic/Lymphatic: Reports: Easy Bruising Immunologic: Reports: No Symptoms Exam - Exam Exam: See Below - Vital Signs Vital Signs: Last Vital Signs Temp 36.2 C 08/04/18 17:10 Pulse 69 08/04/18 17:10 Resp 16 08/04/18 17:10 BP 104/62 08/04/18 17:10 Pulse Ox 98 08/04/18 17:10 - Exam Quality Assessment: Supplemental Oxygen General: Alert, Oriented, Cooperative, Mild Distress HEENT: Conjunctiva Clear, EACs Clear, EOMI, Hearing Intact, Posterior Pharynx Clear, PERRLA. No: Mucosa Moist & [place] (dry) Neck: Supple, Trachea Midline Lungs: Normal Respiratory Effort, Rales, Wheezing Cardiovascular: Regular Rate, Normal S1, Normal S2, Irregular Rhythm GI/Abdominal Exam: Normal Bowel Sounds, Soft, Non-Tender, No Distention (Male) Exam: Deferred Rectal (Males) Exam: Deferred Back Exam: Normal Inspection, Full Range of Motion Extremities: Other (Significant muscle wasting bilateral interosseous spaces). No: Normal Inspection (Draining wound left lower foot), Normal Range of Motion ( Decreased range of motion to his right hand, early contractures) Skin: Warm, Rash (Gross skin with ecchymoses and multiple superficial scarring), Other (Cellulitis). No: Intact Neurological: Cranial Nerves Intact Neuro Extensive - Mental Status: Alert, Oriented x3 Psychiatric: Alert, Normal Affect - Patient Data Lab Results Last 24 hrs: Laboratory Results - last 24 hr 08/04/18 08/04/18 08/04/18 Range/Units 12:34 12:34 13:40 WBC 11.84 H (4.0-11.0) K/uL RBC 3.44 L (4.50-5.90) M/uL Hgb 9.2 L (13.0-17.0) g/dL Hct 32.0 L (38.0-50.0) % MCV 93.0 (80.0-98.0) fL MCH 26.7 L (27.0-32.0) pg MCHC 28.8 L (31.0-37.0) g/dL RDW Std Deviation 67.8 H (28.0-62.0) fl RDW Coeff of Tre 20 H (11.0-15.0) % Plt Count 309 (150-400) K/uL MPV 9.20 (7.40-12.00) fL Add Manual Diff YES Neutrophils % (Manual) 86 H (48.0-80.0) % Band Neutrophils % 5 % Lymphocytes % (Manual) 6 L (16.0-40.0) % Eosinophils % (Manual) 2 (0.0-7.0) % Basophils % (Manual) 1 (0.0-1.5) % Nucleated RBC % 0.3 /100WBC Absolute Seg Neuts 10.2 H (1.4-5.7) Band Neutrophils # 0.6 Lymphocytes # (Manual) 0.7 (0.6-2.4) Eosinophils # (Manual) 0.2 (0.0-0.7) Basophils # (Manual) 0.1 (0.0-0.1) Nucleated RBCs # 0 K/uL ABG pH (7.35-7.45) ABG pCO2 (35-45) mmHG ABG pO2 (75-100) mmHG ABG HCO3 (22-26) mEq/L ABG Total CO2 ABG Base Excess (-2.0-2.0) Lactate 1.2 (0.20-2.00) mmol/L Sodium 131 L (136-148) mmol/L Potassium 5.4 H (3.5-5.1) mmol/L Chloride 97 L (98-107) mmol/L Carbon Dioxide 31.1 (21.0-32.0) mmol/L BUN 24 H (7.0-18.0) mg/dL Creatinine 1.3 (0.8-1.3) mg/dL Est Cr Clr Drug Dosing TNP Estimated GFR (MDRD) 56.7 ml/min Glucose 152 H (74-106) mg/dL Calcium 9.0 (8.5-10.1) mg/dL Total Bilirubin 0.4 (0.2-1.0) mg/dL AST 20 (15-37) IU/L ALT 13 L (14-63) IU/L Alkaline Phosphatase 82 (46-116) U/L Troponin I < 0.050 (0.000-0.056) ng/mL B-Natriuretic Peptide (<100) PG/ML Total Protein 7.2 (6.4-8.2) g/dL Albumin 2.4 L (3.4-5.0) g/dL Globulin 4.8 H (2.6-4.0) g/dL Albumin/Globulin Ratio 0.5 L (0.9-1.6) 08/04/18 08/04/18 Range/Units 13:49 14:35 WBC (4.0-11.0) K/uL RBC (4.50-5.90) M/uL Hgb (13.0-17.0) g/dL Hct (38.0-50.0) % MCV (80.0-98.0) fL MCH (27.0-32.0) pg MCHC (31.0-37.0) g/dL RDW Std Deviation (28.0-62.0) fl RDW Coeff of Tre (11.0-15.0) % Plt Count (150-400) K/uL MPV (7.40-12.00) fL Add Manual Diff Neutrophils % (Manual) (48.0-80.0) % Band Neutrophils % % Lymphocytes % (Manual) (16.0-40.0) % Eosinophils % (Manual) (0.0-7.0) % Basophils % (Manual) (0.0-1.5) % Nucleated RBC % /100WBC Absolute Seg Neuts (1.4-5.7) Band Neutrophils # Lymphocytes # (Manual) (0.6-2.4) Eosinophils # (Manual) (0.0-0.7) Basophils # (Manual) (0.0-0.1) Nucleated RBCs # K/uL ABG pH 7.359 (7.35-7.45) ABG pCO2 59 H (35-45) mmHG ABG pO2 55 L (75-100) mmHG ABG HCO3 33 H (22-26) mEq/L ABG Total CO2 31.8 ABG Base Excess 6.7 H (-2.0-2.0) Lactate (0.20-2.00) mmol/L Sodium (136-148) mmol/L Potassium (3.5-5.1) mmol/L Chloride (98-107) mmol/L Carbon Dioxide (21.0-32.0) mmol/L BUN (7.0-18.0) mg/dL Creatinine (0.8-1.3) mg/dL Est Cr Clr Drug Dosing Estimated GFR (MDRD) ml/min Glucose (74-106) mg/dL Calcium (8.5-10.1) mg/dL Total Bilirubin (0.2-1.0) mg/dL AST (15-37) IU/L ALT (14-63) IU/L Alkaline Phosphatase (46-116) U/L Troponin I (0.000-0.056) ng/mL B-Natriuretic Peptide 338 H (<100) PG/ML Total Protein (6.4-8.2) g/dL Albumin (3.4-5.0) g/dL Globulin (2.6-4.0) g/dL Albumin/Globulin Ratio (0.9-1.6) Result Diagrams: 08/04/18 12:34 08/04/18 12:34 Steve Results Last 24 hrs: Microbiology 08/04/18 13:40 Anaerobic Blood Culture - Final Blood - Venous 08/04/18 13:55 Anaerobic Blood Culture - Final Blood - Venous - Lab Draw *Q Meaningful Use (ADM) - VTE *Q VTE Mechanical Contraindications *Q: Bilateral Lower Dermatits VTE Pharmacological Contraindications *Q: Risk of Bleeding - Problem List (1) Hypoxia SNOMED Code(s): 065452160 ICD Code: R09.02 - HYPOXEMIA Status: Acute Priority: High Current Visit : Yes (2) Cellulitis of left ankle SNOMED Code(s): 08780746 ICD Code: L03.116 - CELLULITIS OF LEFT LOWER LIMB Status: Acute Priority : High Current Visit: Yes (3) Aspergillosis SNOMED Code(s): 22146087 ICD Code: B44.9 - ASPERGILLOSIS, UNSPECIFIED Status: Chronic Priority: Medium Current Visit: Yes (4) Chronic pain syndrome SNOMED Code(s): 413764251 ICD Code: G89.4 - CHRONIC PAIN SYNDROME Status: Chronic Priority: Medium Current Visit: Yes (5) History of Clostridium difficile infection SNOMED Code(s): 894193605, 802030152 ICD Code: Z86.19 - PERSONAL HISTORY OF OTHER INFECTIOUS AND PARASITIC DISEASES Status: Chronic Priority: Medium Current Visit: Yes (6) Afib SNOMED Code(s): 78854936 ICD Code: I48.91 - UNSPECIFIED ATRIAL FIBRILLATION Status: Chronic Priority: High Current Visit: Yes Qualifiers: Atrial fibrillation type: persistent Qualified Code(s): I48.1 - Persistent atrial fibrillation (7) CKD (chronic kidney disease) SNOMED Code(s): 212635710 ICD Code: N18.9 - CHRONIC KIDNEY DISEASE, UNSPECIFIED Status: Chronic Priority: High Current Visit: Yes Qualifiers: Chronic kidney disease stage: stage 3 (moderate) Qualified Code(s): N18.3 - Chronic kidney disease, stage 3 (moderate) Problem List Initiated/Reviewed/Updated: Yes Orders Last 24hrs: Active Orders 24 hr Category Date Time Status Admission Status [Patient Status] [ADT] Stat ADT 08/04/18 14:59 Active Cardiac Monitoring [RC] CONTINUOUS Care 08/04/18 17:16 Ordered EKG Documentation Completion [RC] STAT Care 08/04/18 12:21 Active Oxygen Therapy [RC] PRN Care 08/04/18 17:16 Ordered Oxygen Therapy [RC] PRN Care 08/04/18 17:19 Ordered RT Aerosol Therapy [RC] ASDIRECTED Care 08/04/18 12:49 Active Telemetry Monitoring [Cardiac Monitoring] [RC] . Care 08/04/18 16:06 Active DIRECTED Up With Assistance [RC] ASDIRECTED Care 08/04/18 17:16 Ordered VTE/DVT Education [RC] PER UNIT ROUTINE Care 08/04/18 17:16 Ordered VTE/DVT Education [RC] PER UNIT ROUTINE Care 08/04/18 17:19 Ordered Vital Signs [RC] Q4H Care 08/04/18 17:16 Ordered Vital Signs [RC] Q4H Care 08/04/18 17:19 Ordered OT Evaluation and Treatment [CONS] Routine Cons 08/04/18 17:19 Ordered PT Evaluation and Treatment [CONS] Routine Cons 08/04/18 17:19 Ordered Heart Healthy Diet [DIET] Diet 08/04/18 Breakfast Ordered CULTURE BLOOD [BC] Stat Lab 08/04/18 13:40 Results CULTURE BLOOD [BC] Stat Lab 08/04/18 13:55 Results Acetaminophen [Tylenol] Med 08/04/18 17:19 Ordered 650 mg PO Q4H PRN Albuterol [Proventil Neb Soln] Med 08/05/18 09:00 Ordered 2.5 mg INH DAILY Albuterol [Proventil Neb Soln] Med 08/04/18 17:12 Ordered 2.5 mg NEB Q4H PRN Albuterol [Proventil Neb Soln] Med 08/04/18 17:12 Ordered 2.5 mg NEB Q4HR PRN Apixaban [Eliquis] Med 08/04/18 21:00 Ordered 5 mg PO BID Diclofenac Sodium Med 08/04/18 18:00 Ordered 1 applic TP QID Diltiazem [Cardizem CD] Med 08/05/18 09:00 Ordered 240 mg PO DAILY Docusate Sodium [Colace] Med 08/04/18 17:19 Ordered 100 mg PO BID PRN Finasteride [Proscar] Med 08/05/18 09:00 Ordered 5 mg PO DAILY Fluticasone/Vilanterol Med 08/05/18 09:00 Ordered 1 inh INH DAILY Gabapentin [Neurontin] Med 08/04/18 21:00 Ordered 1,600 mg PO BID Icosapent Ethyl [Vascepa] Med 08/05/18 09:00 Ordered 1 gm PO DAILY Metoprolol Tartrate [Lopressor] Med 08/04/18 21:00 Ordered 50 mg PO BID Midodrine Med 08/04/18 21:00 Ordered 2.5 mg PO BID Morphine [Morphine] Med 08/04/18 17:12 Ordered 15 mg PO Q6H PRN Morphine [Morphine] Med 08/04/18 17:12 Ordered 15 mg PO Q6H PRN Ondansetron [Zofran ODT] Med 08/04/18 17:19 Ordered 4 mg PO Q6H PRN Pantoprazole [ProTONIX] Med 08/05/18 09:00 Ordered 40 mg PO DAILY Potassium Chloride [Klor-Con M20] Med 08/04/18 21:00 Ordered 40 meq PO BID Sodium Chloride 0.9% [Saline Flush] Med 08/04/18 15:38 Active 10 ml FLUSH ASDIRECTED PRN Sodium Chloride 0.9% [Saline Flush] Med 08/04/18 15:38 Active 2.5 ml FLUSH ASDIRECTED PRN Temazepam [Restoril] Med 08/04/18 17:19 Ordered 15 mg PO BEDTIME PRN Tiotropium Carmichaels [Spiriva Respimat] Med 08/04/18 21:00 Ordered 2 puff INH BID Vancomycin [First-Vancomycin 25 Compounding Kit] Med 08/04/18 17:15 Ordered 500 mg PO Q6H predniSONE Med 08/05/18 09:00 Ordered 20 mg PO DAILY traZODone Med 08/04/18 21:00 Ordered 50 mg PO BEDTIME Blood Culture x2 Reflex Set [OM.PC] Stat Oth 08/04/18 13:10 Ordered Saline Lock Insert [OM.PC] Routine Oth 08/04/18 15:38 Ordered VTE Mechanical Contraindications [AST] Per Unit Routine Oth 08/04/18 17:16 Ordered VTE Pharmacological Contraindications [AST] Per Unit Oth 08/04/18 17:16 Ordered Routine Resuscitation Status Routine Resus Stat 08/04/18 17:16 Ordered Medication Orders Albuterol (Proventil Neb Soln) 2.5 mg NEB Q4H PRN PRN Reason: Shortness of Breath Albuterol (Proventil Neb Soln) 2.5 mg NEB Q4HR PRN PRN Reason: Shortness of Breath Albuterol (Proventil Neb Soln) 2.5 mg INH DAILY DANIELITO Apixaban (Eliquis) 5 mg PO BID DANIELITO Diltiazem HCl (Cardizem Cd) 240 mg PO DAILY DANIELITO Finasteride (Proscar) 5 mg PO DAILY DANIELITO Gabapentin (Neurontin) 1,600 mg PO BID [facility] Metoprolol Tartrate (Lopressor) 50 mg PO BIDMEALS [facility] Midodrine (Midodrine) 2.5 mg PO BID [facility] Non-Formulary Medication (Icosapent Ethyl [Vascepa]) 1 gm PO DAILY [facility] Non-Formulary Medication (Morphine [Morphine]) 15 mg PO Q6H PRN PRN Reason: Pain Non-Formulary Medication (Morphine [Morphine]) 15 mg PO Q6H PRN PRN Reason: Pain Non-Formulary Medication (Tiotropium Carmichaels [Spiriva Respimat]) 2 puff INH BID [facility] Non-Formulary Medication (Vancomycin [First-Vancomycin 25 Compounding Kit]) 500 mg PO Q6H [facility] Pantoprazole Sodium (Protonix) 40 mg PO DAILY [facility] Diclofenac Sodium 1 (Applic) 1 each TOP QID [facility] Fluticasone/ (Vilanterol 1 Inh) 1 each INH DAILY [facility] Potassium Chloride (Klor-Con M20) 40 meq PO BID [facility] Prednisone (Prednisone) 20 mg PO DAILY [facility] Sodium Chloride (Saline Flush) 10 ml FLUSH ASDIRECTED PRN PRN Reason: Keep Vein Open Sodium Chloride (Saline Flush) 2.5 ml FLUSH ASDIRECTED PRN PRN Reason: Keep Vein Open Trazodone HCl (Trazodone) 50 mg PO BEDTIME [facility] Assessment/Plan Comment:: The patient's a 58-year-old gentleman who is chronically ill with a number of radical problems. The current concern is that of hypoxia on top of his immune compromised state secondary to his prednisone and treatment for aspergillosis. The patient will be kept on oxygen support to keep his saturations above 92%. The patient is missing some information with regards to his recent discharge and the patient might likely need to be continued on IV antibiotics with regards to his cellulitis of his left foot. I've also ordered PT/OT for wound care as well as ADL assessments. The patient also has a history of C. difficile colitis and he has related some issues with diarrhea. As a result of this the patient will be continued on his oral vancomycin and he will be kept in contact isolation. The patient is also currently on Eliquis and therefore DVT prophylaxis will not be appropriate. Also because of his cellulitis and rash in his lower extremities SCDs also will not be appropriate. He is Eliquis will be continued for DVT prophylaxis as well. I've also ordered repeat laboratory studies with regards to his chronic kidney disease and his treatment will be adjusted renally for this. The patient says that he has not is ill as he was earlier this month and with fluid support and adjustment of his medications he may be appropriate for discharge in 1-2 days. Patient also has been recommended to continue with physical activity as tolerated. The patient will also be kept on a heart healthy diet.
[2018-08-04] MEDS: Metoprolol Tartrate 50 MG Tab PO SCH (18:15)
[2018-08-04] MEDS: Vancomycin 25 MG/ML Compounding Kit PO SCH ×2 (18:24→23:40)
[2018-08-04] MEDS: Diclofenac Sodium 1 APPLIC TOP SCH (18:30)
[2018-08-04] MEDS: Apixaban 5 MG Tab PO SCH (21:22)
[2018-08-04] MEDS: Gabapentin 800 MG Tab PO SCH (21:22)
[2018-08-04] MEDS: Midodrine 5 MG Tab PO SCH (21:22)
[2018-08-04] MEDS: traZODone 50 MG Tab PO SCH ×2 (21:22→21:37)
[2018-08-04] MEDS: Potassium Chloride 20 MEQ Tab.ER PO SCH (21:22)
[2018-08-04] MEDS: SPIRIVA RESPIMAT INH SCH (21:37)
[2018-08-05] MEDS: Diclofenac Sodium 1 APPLIC TOP SCH ×2 (00:45→05:59)
[2018-08-05] MEDS: Vancomycin 25 MG/ML Compounding Kit PO SCH ×2 (05:59→12:26)
--- NOTE | 2018-08-05 07:39 | PCM.PN ---
- Patient Data Vitals - Most Recent: Last Vital Signs Temp 36.4 C 08/05/18 04:00 Pulse 87 08/05/18 04:00 Resp 19 08/05/18 04:00 BP 129/79 08/05/18 04:00 Pulse Ox 100 08/05/18 04:00 Weight - Most Recent: 66.678 kg I&O - Last 24 Hours: Intake & Output 08/04/18 08/05/18 08/05/18 22:59 06:59 14:59 Intake Total 400 Output Total 400 Balance 0 Lab Results Last 24 Hours: Laboratory Results - last 24 hr 08/04/18 08/04/18 08/04/18 Range/Units 12:34 12:34 13:40 WBC 11.84 H (4.0-11.0) K/uL RBC 3.44 L (4.50-5.90) M/uL Hgb 9.2 L (13.0-17.0) g/dL Hct 32.0 L (38.0-50.0) % MCV 93.0 (80.0-98.0) fL MCH 26.7 L (27.0-32.0) pg MCHC 28.8 L (31.0-37.0) g/dL RDW Std Deviation 67.8 H (28.0-62.0) fl RDW Coeff of Tre 20 H (11.0-15.0) % Plt Count 309 (150-400) K/uL MPV 9.20 (7.40-12.00) fL Add Manual Diff YES Neutrophils % (Manual) 86 H (48.0-80.0) % Band Neutrophils % 5 % Lymphocytes % (Manual) 6 L (16.0-40.0) % Eosinophils % (Manual) 2 (0.0-7.0) % Basophils % (Manual) 1 (0.0-1.5) % Nucleated RBC % 0.3 /100WBC Absolute Seg Neuts 10.2 H (1.4-5.7) Band Neutrophils # 0.6 Lymphocytes # (Manual) 0.7 (0.6-2.4) Eosinophils # (Manual) 0.2 (0.0-0.7) Basophils # (Manual) 0.1 (0.0-0.1) Nucleated RBCs # 0 K/uL ABG pH (7.35-7.45) ABG pCO2 (35-45) mmHG ABG pO2 (75-100) mmHG ABG HCO3 (22-26) mEq/L ABG Total CO2 ABG Base Excess (-2.0-2.0) Lactate 1.2 (0.20-2.00) mmol/L Sodium 131 L (136-148) mmol/L Potassium 5.4 H (3.5-5.1) mmol/L Chloride 97 L (98-107) mmol/L Carbon Dioxide 31.1 (21.0-32.0) mmol/L BUN 24 H (7.0-18.0) mg/dL Creatinine 1.3 (0.8-1.3) mg/dL Est Cr Clr Drug Dosing TNP Estimated GFR (MDRD) 56.7 ml/min Glucose 152 H (74-106) mg/dL Calcium 9.0 (8.5-10.1) mg/dL Total Bilirubin 0.4 (0.2-1.0) mg/dL AST 20 (15-37) IU/L ALT 13 L (14-63) IU/L Alkaline Phosphatase 82 (46-116) U/L Troponin I < 0.050 (0.000-0.056) ng/mL B-Natriuretic Peptide (<100) PG/ML Total Protein 7.2 (6.4-8.2) g/dL Albumin 2.4 L (3.4-5.0) g/dL Globulin 4.8 H (2.6-4.0) g/dL Albumin/Globulin Ratio 0.5 L (0.9-1.6) 08/04/18 08/04/18 Range/Units 13:49 14:35 WBC (4.0-11.0) K/uL RBC (4.50-5.90) M/uL Hgb (13.0-17.0) g/dL Hct (38.0-50.0) % MCV (80.0-98.0) fL MCH (27.0-32.0) pg MCHC (31.0-37.0) g/dL RDW Std Deviation (28.0-62.0) fl RDW Coeff of Tre (11.0-15.0) % Plt Count (150-400) K/uL MPV (7.40-12.00) fL Add Manual Diff Neutrophils % (Manual) (48.0-80.0) % Band Neutrophils % % Lymphocytes % (Manual) (16.0-40.0) % Eosinophils % (Manual) (0.0-7.0) % Basophils % (Manual) (0.0-1.5) % Nucleated RBC % /100WBC Absolute Seg Neuts (1.4-5.7) Band Neutrophils # Lymphocytes # (Manual) (0.6-2.4) Eosinophils # (Manual) (0.0-0.7) Basophils # (Manual) (0.0-0.1) Nucleated RBCs # K/uL ABG pH 7.359 (7.35-7.45) ABG pCO2 59 H (35-45) mmHG ABG pO2 55 L (75-100) mmHG ABG HCO3 33 H (22-26) mEq/L ABG Total CO2 31.8 ABG Base Excess 6.7 H (-2.0-2.0) Lactate (0.20-2.00) mmol/L Sodium (136-148) mmol/L Potassium (3.5-5.1) mmol/L Chloride (98-107) mmol/L Carbon Dioxide (21.0-32.0) mmol/L BUN (7.0-18.0) mg/dL Creatinine (0.8-1.3) mg/dL Est Cr Clr Drug Dosing Estimated GFR (MDRD) ml/min Glucose (74-106) mg/dL Calcium (8.5-10.1) mg/dL Total Bilirubin (0.2-1.0) mg/dL AST (15-37) IU/L ALT (14-63) IU/L Alkaline Phosphatase (46-116) U/L Troponin I (0.000-0.056) ng/mL B-Natriuretic Peptide 338 H (<100) PG/ML Total Protein (6.4-8.2) g/dL Albumin (3.4-5.0) g/dL Globulin (2.6-4.0) g/dL Albumin/Globulin Ratio (0.9-1.6) Steve Results Last 24 Hours: Microbiology 08/04/18 13:40 Anaerobic Blood Culture - Final Blood - Venous 08/04/18 13:55 Anaerobic Blood Culture - Final Blood - Venous - Lab Draw Med Orders - Current: Current Medications Acetaminophen (Tylenol) 650 mg PO Q4H PRN PRN Reason: Pain (Mild 1-3)/fever Albuterol (Proventil Neb Soln) 2.5 mg NEB Q4H PRN PRN Reason: Shortness of Breath Albuterol (Proventil Neb Soln) 2.5 mg NEB Q4HR PRN PRN Reason: Shortness of Breath Albuterol (Proventil Neb Soln) 2.5 mg INH DAILY [facility] Apixaban (Eliquis) 5 mg PO BID [facility] Last Admin: 08/04/18 21:22 Dose: 5 mg Diltiazem HCl (Cardizem Cd) 240 mg PO DAILY [facility] Docusate Sodium (Colace) 100 mg PO BID PRN PRN Reason: Constipation Finasteride (Proscar) 5 mg PO DAILY [facility] Gabapentin (Neurontin) 1,600 mg PO BID [facility] Last Admin: 08/04/18 21:22 Dose: 1,600 mg Metoprolol Tartrate (Lopressor) 50 mg PO BIDMEALS [facility] Last Admin: 08/04/18 18:15 Dose: Not Given Midodrine (Midodrine) 2.5 mg PO BID [facility] Last Admin: 08/04/18 21:22 Dose: 2.5 mg Morphine Sulfate (Morphine) 15 mg PO Q6H PRN PRN Reason: Pain Last Admin: 08/04/18 22:14 Dose: 15 mg Ondansetron HCl (Zofran Odt) 4 mg PO Q6H PRN PRN Reason: nausea, able to take PO Pantoprazole Sodium (Protonix) 40 mg PO DAILY [facility] Diclofenac Sodium 1 (Applic) 1 each TOP QID [facility] Last Admin: 08/05/18 05:59 Dose: Not Given Fluticasone/ (Vilanterol 1 Inh) 1 each INH DAILY [facility] Icosapent Ethyl [ (Vascepa] 1 Gm) 1 each PO DAILY [facility] [Spiriva Respimat] 2 (Puff) 2 each INH BID [facility] Last Admin: 08/04/18 21:37 Dose: 2 each Potassium Chloride (Klor-Con M20) 40 meq PO BID [facility] Last Admin: 08/04/18 21:22 Dose: Not Given Prednisone (Prednisone) 20 mg PO DAILY [facility] Sodium Chloride (Saline Flush) 10 ml FLUSH ASDIRECTED PRN PRN Reason: Keep Vein Open Sodium Chloride (Saline Flush) 2.5 ml FLUSH ASDIRECTED PRN PRN Reason: Keep Vein Open Temazepam (Restoril) 15 mg PO BEDTIME PRN PRN Reason: Sleep Trazodone HCl (Trazodone) 50 mg PO BEDTIME DANIELITO Last Admin: 08/04/18 21:37 Dose: Not Given Vancomycin HCl (First-Vancomycin 25 Compounding Kit) 500 mg PO Q6HR [facility] Last Admin: 08/05/18 05:59 Dose: 500 mg Discontinued Medications Albuterol/Ipratropium (Duoneb 3.0-0.5 Mg/3 Ml) 3 ml NEB ONETIME ONE Stop: 08/04/18 12:50 Last Admin: 08/04/18 14:04 Dose: 3 ml Methylprednisolone Sodium Succinate (Solu-Medrol) 125 mg IM ONETIME ONE Stop: 08/04/18 15:10 Last Admin: 08/04/18 15:40 Dose: Not Given Methylprednisolone Sodium Succinate (Solu-Medrol) 125 mg IVPUSH ONETIME ONE Stop: 08/04/18 15:39 Last Admin: 08/04/18 15:41 Dose: 125 mg Non-Formulary Medication (Morphine [Morphine]) 15 mg PO Q6H PRN PRN Reason: Pain - Problem List & Annotations (1) Hypoxia SNOMED Code(s): 144673325 Code(s): R09.02 - HYPOXEMIA Status: Acute Priority: High Current Visit : Yes (2) Cellulitis of left ankle SNOMED Code(s): 70251761 Code(s): L03.116 - CELLULITIS OF LEFT LOWER LIMB Status: Acute Priority: High Current Visit: Yes (3) Aspergillosis SNOMED Code(s): 70685523 Code(s): B44.9 - ASPERGILLOSIS, UNSPECIFIED Status: Chronic Priority: Medium Current Visit: Yes (4) Chronic pain syndrome SNOMED Code(s): 412586187 Code(s): G89.4 - CHRONIC PAIN SYNDROME Status: Chronic Priority: Medium Current Visit: Yes (5) History of Clostridium difficile infection SNOMED Code(s): 232186159, 919557647 Code(s): Z86.19 - PERSONAL HISTORY OF OTHER INFECTIOUS AND PARASITIC DISEASES Status: Chronic Priority: Medium Current Visit: Yes (6) Afib SNOMED Code(s): 06647390 Code(s): I48.91 - UNSPECIFIED ATRIAL FIBRILLATION Status: Chronic Priority: High Current Visit: Yes Qualifiers: Atrial fibrillation type: persistent Qualified Code(s): I48.1 - Persistent atrial fibrillation (7) CKD (chronic kidney disease) SNOMED Code(s): 232233651 Code(s): N18.9 - CHRONIC KIDNEY DISEASE, UNSPECIFIED Status: Chronic Priority: High Current Visit: Yes Qualifiers: Chronic kidney disease stage: stage 3 (moderate) Qualified Code(s): N18.3 - Chronic kidney disease, stage 3 (moderate) - My Orders Last 24 Hours: My Active Orders 08/04/18 16:06 Telemetry Monitoring [Cardiac Monitoring] [RC] . DIRECTED 08/04/18 17:12 Albuterol [Proventil Neb Soln] 2.5 mg NEB Q4H PRN Albuterol [Proventil Neb Soln] 2.5 mg NEB Q4HR PRN Morphine 15 mg PO Q6H PRN 08/04/18 17:16 Cardiac Monitoring [RC] CONTINUOUS Oxygen Therapy [RC] PRN Up With Assistance [RC] ASDIRECTED VTE/DVT Education [RC] PER UNIT ROUTINE Vital Signs [RC] Q4H VTE Mechanical Contraindications [AST] Per Unit Routine VTE Pharmacological Contraindications [AST] Per Unit Routine Resuscitation Status Routine 08/04/18 17:19 Oxygen Therapy [RC] PRN VTE/DVT Education [RC] PER UNIT ROUTINE Vital Signs [RC] Q4H OT Evaluation and Treatment [CONS] Routine PT Evaluation and Treatment [CONS] Routine Acetaminophen [Tylenol] 650 mg PO Q4H PRN Docusate Sodium [Colace] 100 mg PO BID PRN Ondansetron [Zofran ODT] 4 mg PO Q6H PRN Temazepam [Restoril] 15 mg PO BEDTIME PRN 08/04/18 17:30 Metoprolol Tartrate [Lopressor] 50 mg PO BIDMEALS 08/04/18 18:00 Patient's Own Medication [Ptom] 1 each TOP QID Vancomycin [First-Vancomycin 25 Compounding Kit] 500 mg PO Q6HR 08/04/18 21:00 Apixaban [Eliquis] 5 mg PO BID Gabapentin [Neurontin] 1,600 mg PO BID Midodrine 2.5 mg PO BID Patient's Own Medication [Ptom] 2 each INH BID Potassium Chloride [Klor-Con M20] 40 meq PO BID traZODone 50 mg PO BEDTIME 08/05/18 09:00 Albuterol [Proventil Neb Soln] 2.5 mg INH DAILY Diltiazem [Cardizem CD] 240 mg PO DAILY Finasteride [Proscar] 5 mg PO DAILY Pantoprazole [ProTONIX] 40 mg PO DAILY Patient's Own Medication [Ptom] 1 each INH DAILY Patient's Own Medication [Ptom] 1 each PO DAILY predniSONE 20 mg PO DAILY - Plan Plan:: The patient's a 58-year-old gentleman who is chronically ill with a number of radical problems. The current concern is that of hypoxia on top of his immune compromised state secondary to his prednisone and treatment for aspergillosis. The patient will be kept on oxygen support to keep his saturations above 92%. The patient is missing some information with regards to his recent discharge and the patient might likely need to be continued on IV antibiotics with regards to his cellulitis of his left foot. I've also ordered PT/OT for wound care as well as ADL assessments. The patient also has a history of C. difficile colitis and he has related some issues with diarrhea. As a result of this the patient will be continued on his oral vancomycin and he will be kept in contact isolation. The patient is also currently on Eliquis and therefore DVT prophylaxis will not be appropriate. Also because of his cellulitis and rash in his lower extremities SCDs also will not be appropriate. He is Eliquis will be continued for DVT prophylaxis as well. I've also ordered repeat laboratory studies with regards to his chronic kidney disease and his treatment will be adjusted renally for this. The patient says that he has not is ill as he was earlier this month and with fluid support and adjustment of his medications he may be appropriate for discharge in 1-2 days. Patient also has been recommended to continue with physical activity as tolerated. The patient will also be kept on a heart healthy diet.
[2018-08-05 08:55] VITALS: BP 133/95
[2018-08-05] MEDS ORDERED: Finasteride 5 MG Tab PO SCH (09:00)
[2018-08-05] MEDS ORDERED: Pantoprazole 40 MG Tab.CR PO SCH (09:00)
[2018-08-05] MEDS ORDERED: Albuterol 0.083% 2.5 MG/3 ML Neb Soln INH SCH (09:00)
[2018-08-05] MEDS ORDERED: Diltiazem 120 MG Cap.CD PO SCH (09:00)
[2018-08-05] MEDS ORDERED: VILANTEROL INH SCH (09:00)
[2018-08-05] MEDS ORDERED: FLUTICASONE INH SCH (09:00)
[2018-08-05] MEDS ORDERED: predniSONE 20 MG Tab PO SCH (09:00)
[2018-08-05] MEDS ORDERED: Icosapent Ethyl [Vascepa] 1 GM PO SCH (09:00)
[2018-08-05] MEDS: Gabapentin 800 MG Tab PO SCH ×2 (09:16→12:28)
[2018-08-05] MEDS: Metoprolol Tartrate 50 MG Tab PO SCH (09:17)
[2018-08-05] MEDS: Midodrine 5 MG Tab PO SCH (09:17)
[2018-08-05] MEDS: Apixaban 5 MG Tab PO SCH (09:18)
[2018-08-05] MEDS: Potassium Chloride 20 MEQ Tab.ER PO SCH (09:19)
--- NOTE | 2018-08-05 09:59 | PCM.DCSUM1 ---
Discharge Summary - Hospital Course Free Text/Narrative:: The patient was admitted secondary to hypoxia. Diagnosis: Stroke: No - Discharge Data Discharge Date: 08/05/18 Discharge Disposition: Home, Self-Care 01 Condition: Fair - Discharge Diagnosis/Problem(s) (1) Hypoxia SNOMED Code(s): 297607425 ICD Code: R09.02 - HYPOXEMIA Status: Resolved Priority: High (2) Cellulitis of left ankle SNOMED Code(s): 46235629 ICD Code: L03.116 - CELLULITIS OF LEFT LOWER LIMB Status: Chronic Priority: High (3) Aspergillosis SNOMED Code(s): 11375910 ICD Code: B44.9 - ASPERGILLOSIS, UNSPECIFIED Status: Chronic Priority: Medium (4) Chronic pain syndrome SNOMED Code(s): 045823269 ICD Code: G89.4 - CHRONIC PAIN SYNDROME Status: Chronic Priority: Medium (5) History of Clostridium difficile infection SNOMED Code(s): 095734918, 813840911 ICD Code: Z86.19 - PERSONAL HISTORY OF OTHER INFECTIOUS AND PARASITIC DISEASES Status: Chronic Priority: Medium (6) Afib SNOMED Code(s): 50855385 ICD Code: I48.91 - UNSPECIFIED ATRIAL FIBRILLATION Status: Chronic Priority: High Qualifiers: Atrial fibrillation type: persistent Qualified Code(s): I48.1 - Persistent atrial fibrillation (7) CKD (chronic kidney disease) SNOMED Code(s): 098934128 ICD Code: N18.9 - CHRONIC KIDNEY DISEASE, UNSPECIFIED Status: Chronic Priority: High Qualifiers: Chronic kidney disease stage: stage 3 (moderate) Qualified Code(s): N18.3 - Chronic kidney disease, stage 3 (moderate) - Patient Summary/Data Consults: Consultations 08/04/18 17:19 OT Evaluation and Treatment [CONS] Routine PT Evaluation and Treatment [CONS] Routine Hospital Course: The patient is a chronically ill 58-year-old gentleman who had presented to the emergency department with a complaint of shortness of breath. The patient has a history of multiple admissions and ER visits over the past 3 months. The patient was last discharged from acute hospitalization on July 21, 2018 where he was transferred to [facility] and he was discharged from there on July 28, 2018. He does have a history of aspergillosis and has been on chronic prednisone therapy. The patient also has a history of C. difficile colitis and had been taking oral vancomycin. Further, he does have a history of atrial fibrillation and has been on Eliquis for this. The patient also has been complaining primarily of shortness of breath and his home health nurse recorded his pulse oximetry around 70%. The patient also says that he has been having a productive cough of brown sputum. He has been complaining of pain in his lower back and his arms as well. The patient has denied any fever or chills. Patient also has been complaining of generalized fatigue. The patient had been kept on all of his medications. He also also been on long-term prednisone therapy secondary to aspergillosis. Patient had his oral vancomycin continued secondary to his recent history of C. difficile colitis. During the short course of hospitalization the patient oxygen demand had improved significantly and was back at his baseline. In spite of the patient's chronic medical problems the patient says that he feels like he can safely go home today. Further, the patient says that he thinks he was hypoxic secondary to accidental doubling his dose of gabapentin. The patient says that he needs to have refills of his methocarbamol and Voltaren gel. These have been refilled for him. The patient has been recommended to continue with his diet as tolerated. He is also have physical activity within his capabilities. Patient has been hemodynamically stable and he his discharged from acute hospitalization with recommendations listed above. - Patient Instructions Diet: Heart Healthy Diet Activity: As Tolerated - Discharge Plan *PRESCRIPTION DRUG MONITORING PROGRAM REVIEWED*: No *COPY OF PRESCRIPTION DRUG MONITORING REPORT IN PATIENT KECIA: No Prescriptions/Med Rec: Methocarbamol [Robaxin-750] 1,500 mg PO Q6HR #90 tablet Diclofenac Sodium [Voltaren 1% Gel] 1 applic TOP BID #100 tube Home Medications: Home Meds Fluticasone/Vilanterol [Breo Ellipta 200-25 Mcg INH] 1 inh INH DAILY 01/11/16 [ History] Testosterone [Androgel] 4 pump TOP DAILY 01/11/16 [History] Tiotropium [place] [Spiriva Respimat] 2 puff INH BID 01/12/16 [History] Morphine 15 mg PO Q6H PRN #10 tablet 01/15/16 [Rx] Albuterol Sulfate 2.5 mg IH DAILY 05/19/18 [History] Pantoprazole [ProTONIX] 40 mg PO DAILY 05/19/18 [History] Albuterol [Proventil Neb Soln] 2.5 mg NEB Q4H PRN neb 07/21/18 [Rx] Apixaban [Eliquis] 5 mg PO BID tablet 07/21/18 [Rx] Diltiazem [Cardizem CD] 240 mg PO DAILY cap.cd 07/21/18 [Rx] Metoprolol Tartrate [Lopressor] 50 mg PO BID tablet 07/21/18 [Rx] Midodrine 2.5 mg PO BID tablet 07/21/18 [Rx] predniSONE 20 mg PO DAILY tablet 07/21/18 [Rx] Diclofenac Sodium [Voltaren 1% Gel] 1 applic TOP BID #100 tube 08/05/18 [Rx] Gabapentin [Neurontin] 1,600 mg PO BID tablet 08/05/18 [Rx] Gabapentin [Neurontin] 800 mg PO Q6HR 08/05/18 [History] HYDROmorphone [Dilaudid] 2 mg PO Q6HR PRN 08/05/18 [History] Methocarbamol [Robaxin-750] 1,500 mg PO Q6HR #90 tablet 08/05/18 [Rx] Potassium Chloride [Klor-Con M20] 40 meq PO BID tab.er 08/05/18 [Rx] Vancomycin HCl [Vancocin HCl] 250 mg PO Q6HR 08/05/18 [History] Vancomycin [First-Vancomycin 25 Compounding Kit] 500 mg PO Q6HR bottle [Rx] Oxygen Therapy Mode: Nasal Cannula Oxygen Flow Rate (L/min): 2 Patient Handouts: Hypoxia, Diclofenac sodium topical solution, Methocarbamol tablets Referrals: PCP,None [Primary Care Provider] - (Follow-up with your primary care doctor in 1-2 weeks from hospital discharge date. Please call Tuesday, August 07, 2018 to schedule this appointment. ) - Discharge Summary/Plan Comment DC Time >30 min.: Yes - General Info Date of Service: 08/05/18 Admission Dx/Problem (Free Text: Admission Diagnosis/Problem Admission Diagnosis/Problem Hypoxia, complicated Functional Status: Reports: Pain Controlled - Review of Systems General: Reports: No Symptoms HEENT: Reports: No Symptoms Pulmonary: Reports: Shortness of Breath Cardiovascular: Reports: No Symptoms Gastrointestinal: Reports: No Symptoms Genitourinary: Reports: No Symptoms Musculoskeletal: Reports: No Symptoms Skin: Reports: No Symptoms Neurological: Reports: No Symptoms Psychiatric: Reports: No Symptoms - Patient Data Vitals - Most Recent: Last Vital Signs Temp 36.1 C 08/05/18 08:00 Pulse 109 H 08/05/18 09:19 Resp 16 08/05/18 08:00 BP 133/95 H 08/05/18 09:19 Pulse Ox 96 08/05/18 08:00 Weight - Most Recent: 66.678 kg I&O - Last 24 hours: Intake & Output 08/04/18 08/05/18 08/05/18 22:59 06:59 14:59 Intake Total 400 Output Total 400 Balance 0 Lab Results - Last 24 hrs: Laboratory Results - last 24 hr 08/04/18 08/04/18 08/04/18 Range/Units 12:34 12:34 13:40 WBC 11.84 H (4.0-11.0) K/uL RBC 3.44 L (4.50-5.90) M/uL Hgb 9.2 L (13.0-17.0) g/dL Hct 32.0 L (38.0-50.0) % MCV 93.0 (80.0-98.0) fL MCH 26.7 L (27.0-32.0) pg MCHC 28.8 L (31.0-37.0) g/dL RDW Std Deviation 67.8 H (28.0-62.0) fl RDW Coeff of Tre 20 H (11.0-15.0) % Plt Count 309 (150-400) K/uL MPV 9.20 (7.40-12.00) fL Add Manual Diff YES Neutrophils % (Manual) 86 H (48.0-80.0) % Band Neutrophils % 5 % Lymphocytes % (Manual) 6 L (16.0-40.0) % Eosinophils % (Manual) 2 (0.0-7.0) % Basophils % (Manual) 1 (0.0-1.5) % Nucleated RBC % 0.3 /100WBC Absolute Seg Neuts 10.2 H (1.4-5.7) Band Neutrophils # 0.6 Lymphocytes # (Manual) 0.7 (0.6-2.4) Eosinophils # (Manual) 0.2 (0.0-0.7) Basophils # (Manual) 0.1 (0.0-0.1) Nucleated RBCs # 0 K/uL ABG pH (7.35-7.45) ABG pCO2 (35-45) mmHG ABG pO2 (75-100) mmHG ABG HCO3 (22-26) mEq/L ABG Total CO2 ABG Base Excess (-2.0-2.0) Lactate 1.2 (0.20-2.00) mmol/L Sodium 131 L (136-148) mmol/L Potassium 5.4 H (3.5-5.1) mmol/L Chloride 97 L (98-107) mmol/L Carbon Dioxide 31.1 (21.0-32.0) mmol/L BUN 24 H (7.0-18.0) mg/dL Creatinine 1.3 (0.8-1.3) mg/dL Est Cr Clr Drug Dosing TNP Estimated GFR (MDRD) 56.7 ml/min Glucose 152 H (74-106) mg/dL Calcium 9.0 (8.5-10.1) mg/dL Total Bilirubin 0.4 (0.2-1.0) mg/dL AST 20 (15-37) IU/L ALT 13 L (14-63) IU/L Alkaline Phosphatase 82 (46-116) U/L Troponin I < 0.050 (0.000-0.056) ng/mL B-Natriuretic Peptide (<100) PG/ML Total Protein 7.2 (6.4-8.2) g/dL Albumin 2.4 L (3.4-5.0) g/dL Globulin 4.8 H (2.6-4.0) g/dL Albumin/Globulin Ratio 0.5 L (0.9-1.6) 08/04/18 08/04/18 Range/Units 13:49 14:35 WBC (4.0-11.0) K/uL RBC (4.50-5.90) M/uL Hgb (13.0-17.0) g/dL Hct (38.0-50.0) % MCV (80.0-98.0) fL MCH (27.0-32.0) pg MCHC (31.0-37.0) g/dL RDW Std Deviation (28.0-62.0) fl RDW Coeff of Tre (11.0-15.0) % Plt Count (150-400) K/uL MPV (7.40-12.00) fL Add Manual Diff Neutrophils % (Manual) (48.0-80.0) % Band Neutrophils % % Lymphocytes % (Manual) (16.0-40.0) % Eosinophils % (Manual) (0.0-7.0) % Basophils % (Manual) (0.0-1.5) % Nucleated RBC % /100WBC Absolute Seg Neuts (1.4-5.7) Band Neutrophils # Lymphocytes # (Manual) (0.6-2.4) Eosinophils # (Manual) (0.0-0.7) Basophils # (Manual) (0.0-0.1) Nucleated RBCs # K/uL ABG pH 7.359 (7.35-7.45) ABG pCO2 59 H (35-45) mmHG ABG pO2 55 L (75-100) mmHG ABG HCO3 33 H (22-26) mEq/L ABG Total CO2 31.8 ABG Base Excess 6.7 H (-2.0-2.0) Lactate (0.20-2.00) mmol/L Sodium (136-148) mmol/L Potassium (3.5-5.1) mmol/L Chloride (98-107) mmol/L Carbon Dioxide (21.0-32.0) mmol/L BUN (7.0-18.0) mg/dL Creatinine (0.8-1.3) mg/dL Est Cr Clr Drug Dosing Estimated GFR (MDRD) ml/min Glucose (74-106) mg/dL Calcium (8.5-10.1) mg/dL Total Bilirubin (0.2-1.0) mg/dL AST (15-37) IU/L ALT (14-63) IU/L Alkaline Phosphatase (46-116) U/L Troponin I (0.000-0.056) ng/mL B-Natriuretic Peptide 338 H (<100) PG/ML Total Protein (6.4-8.2) g/dL Albumin (3.4-5.0) g/dL Globulin (2.6-4.0) g/dL Albumin/Globulin Ratio (0.9-1.6) SHILOH Results - Last 24 hrs: Microbiology 08/04/18 13:40 Anaerobic Blood Culture - Final Blood - Venous 08/04/18 13:55 Anaerobic Blood Culture - Final Blood - Venous - Lab Draw Med Orders - Current: Current Medications Acetaminophen (Tylenol) 650 mg PO Q4H PRN PRN Reason: Pain (Mild 1-3)/fever Albuterol (Proventil Neb Soln) 2.5 mg NEB Q4H PRN PRN Reason: Shortness of Breath Albuterol (Proventil Neb Soln) 2.5 mg NEB Q4HR PRN PRN Reason: Shortness of Breath Albuterol (Proventil Neb Soln) 2.5 mg INH DAILY [facility] [place] Apixaban (Eliquis) 5 mg PO BID [facility] Last Admin: 08/05/18 09:18 Dose: 5 mg Diltiazem HCl (Cardizem Cd) 240 mg PO DAILY [facility] [place] Last Admin: 08/05/18 09:19 Dose: 240 mg Docusate Sodium (Colace) 100 mg PO BID PRN PRN Reason: Constipation Finasteride (Proscar) 5 mg PO DAILY [facility] [place] Last Admin: 08/05/18 09:19 Dose: 5 mg Gabapentin (Neurontin) 1,600 mg PO BID [facility] [place] Last Admin: 08/05/18 09:16 Dose: 800 mg Metoprolol Tartrate (Lopressor) 50 mg PO BIDMEALS [facility] [place] Last Admin: 08/05/18 09:17 Dose: 50 mg Midodrine (Midodrine) 2.5 mg PO BID [facility] [place] Last Admin: 08/05/18 09:17 Dose: 2.5 mg Morphine Sulfate (Morphine) 15 mg PO Q6H PRN PRN Reason: Pain Last Admin: 08/04/18 22:14 Dose: 15 mg Ondansetron HCl (Zofran Odt) 4 mg PO Q6H PRN PRN Reason: nausea, able to take PO Pantoprazole Sodium (Protonix) 40 mg PO DAILY [facility] [place] Last Admin: 08/05/18 09:18 Dose: 40 mg Diclofenac Sodium 1 (Applic) 1 each TOP QID [facility] [place] Last Admin: 08/05/18 05:59 Dose: Not Given Fluticasone/ (Vilanterol 1 Inh) 1 each INH DAILY [facility] [place] Icosapent Ethyl [ (Vascepa] 1 Gm) 1 each PO DAILY [facility] [place] Last Admin: 08/05/18 09:28 Dose: Not Given [Spiriva Respimat] 2 (Puff) 2 each INH BID [facility] Last Admin: 08/04/18 21:37 Dose: 2 each Potassium Chloride (Klor-Con M20) 40 meq PO BID [facility] [place] Last Admin: 08/05/18 09:19 Dose: Not Given Prednisone (Prednisone) 20 mg PO DAILY [facility] [place] Last Admin: 08/05/18 09:18 Dose: 20 mg Sodium Chloride (Saline Flush) 10 ml FLUSH ASDIRECTED PRN PRN Reason: Keep Vein Open Sodium Chloride (Saline Flush) 2.5 ml FLUSH ASDIRECTED PRN PRN Reason: Keep Vein Open Temazepam (Restoril) 15 mg PO BEDTIME PRN PRN Reason: Sleep Trazodone HCl (Trazodone) 50 mg PO BEDTIME [facility] [place] Last Admin: 08/04/18 21:37 Dose: Not Given Vancomycin HCl (First-Vancomycin 25 Compounding Kit) 500 mg PO Q6HR [facility] [place] Last Admin: 08/05/18 05:59 Dose: 500 mg Discontinued Medications Albuterol/Ipratropium (Duoneb 3.0-0.5 Mg/3 Ml) 3 ml NEB ONETIME ONE Stop: 08/04/18 12:50 Last Admin: 08/04/18 14:04 Dose: 3 ml Methylprednisolone Sodium Succinate (Solu-Medrol) 125 mg IM ONETIME ONE Stop: 08/04/18 15:10 Last Admin: 08/04/18 15:40 Dose: Not Given Methylprednisolone Sodium Succinate (Solu-Medrol) 125 mg IVPUSH ONETIME ONE Stop: 08/04/18 15:39 Last Admin: 08/04/18 15:41 Dose: 125 mg Non-Formulary Medication (Morphine [Morphine]) 15 mg PO Q6H PRN PRN Reason: Pain - Exam Quality Assessment: Reports: Supplemental Oxygen General: Reports: Alert, Oriented, Cooperative, No Acute Distress HEENT: Reports: Pupils Equal, Pupils Reactive, EOMI Neck: Reports: Supple, Trachea Midline Lungs: Reports: Normal Respiratory Effort, Wheezing Cardiovascular: Reports: Regular Rate. Denies: Regular Rhythm GI/Abdominal Exam: Normal Bowel Sounds, Soft, No Distention (Male) Exam: Deferred Rectal (Males) Exam: Deferred Back Exam: Reports: Normal Inspection Extremities: No: Normal Inspection (Contractures of right hand. Marked decrease musculature of interosseous muscles bilaterally) Skin: Reports: Warm, Dry. Denies: Intact ([place] then) Neurological: Reports: No New Focal Deficit Psy/Mental Status: Reports: Alert, Normal Affect *Q Meaningful Use (DIS) - VTE *Q VTE Mechanical Contraindications *Q: Bilateral Lower Dermatits VTE Pharmacological Contraindications *Q: Risk of Bleeding
[2018-08-05] MEDS: SPIRIVA RESPIMAT INH SCH (10:53)
== END 2018-08-05 12:40 | disposition home or self-care (01) ==
LOC: MW.ED 11:54 → MW.MS 15:32
PROVIDERS: ADMIT Internal Medicine; ATTEND Internal Medicine
DX: R09.02 Hypoxemia (principal); B44.9 Aspergillosis, unspecified; G89.4 Chronic pain syndrome; L03.116 Cellulitis of left lower limb; I48.1 Persistent atrial fibrillation; I13.0 Hypertensive heart and chronic kidney disease with heart failure and stage 1 through stage 4 chronic kidney disease, or unspecified chronic kidney disease; I50.9 Heart failure, unspecified; N18.3 Chronic kidney disease, stage 3 (moderate); Z86.19 Personal history of other infectious and parasitic diseases; Z79.01 Long term (current) use of anticoagulants; Z79.899 Other long term (current) drug therapy; Z88.1 Allergy status to other antibiotic agents; Z88.8 Allergy status to other drugs, medicaments and biological substances; Z90.5 Acquired absence of kidney
CPT/HCPCS: 36415; 36600; 71046; 80053; 82803; 83605; 83880; 84484; 85025; 87040; 93005; 94640; 96374; 99285; A9270; J2930; 87186; 99283; G0378; J7620-GY

== ENCOUNTER 2018-08-14 06:53 | Inpatient (IN) | payer MEDICARE, OTHER ==
[2018-08-14] MEDS ORDERED: HYDROmorphone 2 MG/ML SDV IM ONE (06:58)
--- NOTE | 2018-08-14 07:00 | EDM.PDOC ---
ED HPI GENERAL MEDICAL PROBLEM - General Chief Complaint: General Stated Complaint: SEVERE BODY PAIN Time Seen by Provider: 08/14/18 06:57 Source of Information: Reports: Patient History Limitations: Reports: No Limitations - History of Present Illness INITIAL COMMENTS - FREE TEXT/NARRATIVE: History of present illness: []Patient has chronic osteoporosis and arthritis and ran out of his morphine today. He has had increasing joint pain and body aches for 4 days. No fevers, chills, nausea, vomiting or diarrhea. He has not followed up with a primary care and has not followed by pain management locally. Review of systems: As per history of present illness and below otherwise all systems reviewed and negative. Past medical history: As per history of present illness and as reviewed below otherwise noncontributory. Surgical history: As per history of present illness and as reviewed below otherwise noncontributory. Social history: No reported history of drug or alcohol abuse. Family history: As per history of present illness and as reviewed below otherwise noncontributory. Physical exam: General: Well developed, well nourished in NAD HEENT: Atraumatic, normocephalic, pupils reactive, negative for conjunctival pallor or scleral icterus, mucous membranes moist, throat clear, neck supple, nontender, trachea midline. Lungs: Clear to auscultation, breath sounds equal bilaterally, chest nontender. Heart: S1S2, regular, negative for clicks, rubs, or JVD. Abdomen: NABS, Soft, nondistended, nontender. Negative for masses or hepatosplenomegaly. Negative for costovertebral tenderness. Pelvis: Stable nontender. Genitourinary: Deferred. Rectal: Deferred. Extremities: Atraumatic, negative for cords or calf pain. Neurovascular unremarkable. Neuro: Awake, alert, oriented. Cranial nerves II through XII unremarkable. Cerebellum unremarkable. Motor and sensory unremarkable throughout. Exam nonfocal. Skin:warm and dry Diagnostics: CBC, chemistry within normal limits Therapeutics: Dilaudid, Ativan ED Course: Improved Impression: Chronic pain Prescriptions: Tramadol Plan: Follow-up with primary care Definitive disposition and diagnosis as appropriate pending reevaluation and review of above. general Pain Score (Numeric/FACES): 8 - Related Data Allergies Allergy/AdvReac Type Severity Reaction Status Date / Time itraconazole [From Sporanox] Allergy Unknown Confusion Verified 08/14/18 06:54 levofloxacin [From Levaquin] Allergy Unknown Other Verified 08/14/18 06:54 Home Meds: Home Meds Fluticasone/Vilanterol [Breo Ellipta 200-25 Mcg INH] 1 inh INH DAILY 01/11/16 [ History] Testosterone [Androgel] 4 pump TOP DAILY 01/11/16 [History] Tiotropium [place] [Spiriva Respimat] 2 puff INH BID 01/12/16 [History] Morphine 15 mg PO Q6H PRN #10 tablet 01/15/16 [Rx] Albuterol Sulfate 2.5 mg IH DAILY 05/19/18 [History] Pantoprazole [ProTONIX] 40 mg PO DAILY 05/19/18 [History] Albuterol [Proventil Neb Soln] 2.5 mg NEB Q4H PRN neb 07/21/18 [Rx] Apixaban [Eliquis] 5 mg PO BID tablet 07/21/18 [Rx] Diltiazem [Cardizem CD] 240 mg PO DAILY cap.cd 07/21/18 [Rx] Metoprolol Tartrate [Lopressor] 50 mg PO BID tablet 07/21/18 [Rx] Midodrine 2.5 mg PO BID tablet 07/21/18 [Rx] predniSONE 20 mg PO DAILY tablet 07/21/18 [Rx] Diclofenac Sodium [Voltaren 1% Gel] 1 applic TOP BID #100 tube 08/05/18 [Rx] Gabapentin [Neurontin] 1,600 mg PO BID tablet 08/05/18 [Rx] Gabapentin [Neurontin] 800 mg PO Q6HR 08/05/18 [History] HYDROmorphone [Dilaudid] 2 mg PO Q6HR PRN 08/05/18 [History] Methocarbamol [Robaxin-750] 1,500 mg PO Q6HR #90 tablet 08/05/18 [Rx] Potassium Chloride [Klor-Con M20] 40 meq PO BID tab.er 08/05/18 [Rx] traMADol HCl [Tramadol HCl] 50 mg PO Q6H PRN #16 tablet 08/14/18 [Rx] Past Medical History HEENT History: Reports: Cataract Other HEENT History: dental fillings due to caries; recent tooth fracture Cardiovascular History: Reports: Afib, Cardiomyopathy, Heart Failure, Hypertension, NC Respiratory History: Reports: Asthma, Bronchitis, Recurrent, PE, Pneumonia, Recurrent, Other (See Below) Other Respiratory History: Chronic pulmonary aspergillosis, 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 No explantation- -they apparently just treated him with IV abx for months. - Past Surgical History Head Surgeries/Procedures: Reports: None HEENT Surgical History: Reports: Cataract Surgery Cardiovascular Surgical History: Reports: None Respiratory Surgical History: Reports: Lung Resection Other Respiratory Surgeries/Procedures: intubated last Feb 2018 and transfered to [facility] Surgical History: Reports: None Male Surgical History: Reports: None Endocrine Surgical History: Reports: None Neurological Surgical History: Reports: None Musculoskeletal Surgical History: Reports: Shoulder Surgery, Other (See Below) Other Musculoskeletal Surgeries/Procedures:: L shoulder and left hip surgery Oncologic Surgical History: Reports: None Dermatological Surgical History: Reports: None Social & Family History - Family History Family Medical History: Noncontributory - Caffeine Use Caffeine Use: Reports: Coffee - Living Situation & Occupation Living situation: Reports: Single Occupation: Disabled ED ROS GENERAL - Review of Systems Review Of Systems: ROS reveals no pertinent complaints other than HPI. ED EXAM, GENERAL - Physical Exam Exam: See Below (The history of present illness) Course - Vital Signs Last Recorded V/S: Last Vital Signs Temp 98 F 08/14/18 06:54 Pulse 123 H 08/14/18 06:54 Resp 20 08/14/18 06:54 BP 118/73 08/14/18 06:54 Pulse Ox 94 L 08/14/18 06:54 - Orders/Labs/Meds Labs: Laboratory Tests 08/14/18 08/14/18 Range/Units 07:43 07:43 WBC 9.15 (4.0-11.0) K/uL RBC 3.91 L (4.50-5.90) M/uL Hgb 10.2 L (13.0-17.0) g/dL Hct 33.8 L (38.0-50.0) % MCV 86.4 (80.0-98.0) fL MCH 26.1 L (27.0-32.0) pg MCHC 30.2 L (31.0-37.0) g/dL RDW Std Deviation 60.8 (28.0-62.0) fl RDW Coeff of Tre 19 H (11.0-15.0) % Plt Count 225 (150-400) K/uL MPV 10.00 (7.40-12.00) fL Neut % (Auto) 85.6 H (48.0-80.0) % Lymph % (Auto) 10.2 L (16.0-40.0) % [place] % (Auto) 4.0 (0.0-15.0) % Eos % (Auto) 0.2 (0.0-7.0) % Baso % (Auto) 0.0 (0.0-1.5) % Neut # (Auto) 7.8 H (1.4-5.7) K/uL Lymph # (Auto) 0.9 (0.6-2.4) K/uL [place] # (Auto) 0.4 (0.0-0.8) K/uL Eos # (Auto) 0.0 (0.0-0.7) K/uL Baso # (Auto) 0.0 (0.0-0.1) K/uL Nucleated RBC % 0.0 /100WBC Nucleated RBCs # 0 K/uL Sodium 136 (136-148) mmol/L Potassium 4.1 (3.5-5.1) mmol/L Chloride 98 (98-107) mmol/L Carbon Dioxide 31.6 (21.0-32.0) mmol/L BUN 13 (7.0-18.0) mg/dL Creatinine 1.2 (0.8-1.3) mg/dL Est Cr Clr Drug Dosing 56.19 mL/min Estimated GFR (MDRD) > 60.0 ml/min Glucose 100 (74-106) mg/dL Calcium 8.6 (8.5-10.1) mg/dL Total Bilirubin 0.9 (0.2-1.0) mg/dL AST 134 H (15-37) IU/L ALT 177 H (14-63) IU/L Alkaline Phosphatase 108 (46-116) U/L Total Protein 7.1 (6.4-8.2) g/dL Albumin 1.8 L (3.4-5.0) g/dL Globulin 5.3 H (2.6-4.0) g/dL Albumin/Globulin Ratio 0.3 L (0.9-1.6) Meds: Medications Discontinued Medications Generic Name Dose Route Start Last Admin Trade Name Freq PRN Reason Stop Dose Admin Hydromorphone HCl 1 mg 08/14/18 06:58 08/14/18 07:08 Dilaudid IM 08/14/18 06:59 Not Given ONETIME ONE Hydromorphone HCl 1 mg 08/14/18 07:05 08/14/18 07:06 Dilaudid IM 08/14/18 07:06 1 mg ONETIME ONE Administration Hydromorphone HCl Confirm 08/14/18 07:04 08/14/18 07:12 Dilaudid Administered 08/14/18 07:05 Not Given Dose 1 mg .ROUTE .STK-MED ONE Lorazepam 0.5 mg 08/14/18 07:30 08/14/18 07:54 Ativan PO 08/14/18 07:31 0.5 mg ONETIME ONE Administration Departure - Departure Time of Disposition: 08:25 Disposition: Home, Self-Care 01 Condition: Good Clinical Impression: Chronic pain Qualifiers: Chronic pain type: other chronic pain Qualified Code(s): G89.29 - Other chronic pain - Discharge Information *PRESCRIPTION DRUG MONITORING PROGRAM REVIEWED*: No *COPY OF PRESCRIPTION DRUG MONITORING REPORT IN PATIENT KECIA: No Prescriptions: traMADol HCl [Tramadol HCl] 50 mg PO Q6H PRN #16 tablet PRN Reason: Pain Forms: ED Department Discharge Additional Instructions: The following information is given to patients seen in the emergency department who are being discharged to home. This information is to outline your options for follow-up care. We provide all patients seen in our emergency department with a follow-up referral. The need for follow-up, as well as the timing and circumstances, are variable depending upon the specifics of your emergency department visit. If you don't have a primary care physician on staff, we will provide you with a referral. We always advise you to contact your personal physician following an emergency department visit to inform them of the circumstance of the visit and for follow-up with them and/or the need for any referrals to a consulting specialist. The emergency department will also refer you to a specialist when appropriate. This referral assures that you have the opportunity for follow-up care with a specialist. All of these measure are taken in an effort to provide you with optimal care, which includes your follow-up. Under all circumstances we always encourage you to contact your private physician who remains a resource for coordinating your care. When calling for follow-up care, please make the office aware that this follow-up is from your recent emergency room visit. If for any reason you are refused follow-up, please contact the [facility] Emergency Department at and asked to speak to the emergency department charge nurse. [facility] [address] [place] [id number]
[2018-08-14] MEDS ORDERED: HYDROmorphone 1 MG/ML Syringe ONE (07:04)
[2018-08-14] MEDS ORDERED: HYDROmorphone 1 MG/ML Syringe IM ONE (07:05)
[2018-08-14] MEDS ORDERED: LORazepam 0.5 MG Tab PO ONE (07:30)
[2018-08-14 08:12] LABS: CHLORIDE,CL 98 mmol/L (98-107); SODIUM,NA 136 mmol/L (136-148)
[2018-08-14] MEDS ORDERED: Sodium Chloride 0.9% 2.5 ML Syringe FLUSH PRN (12:07)
[2018-08-14] MEDS ORDERED: Bisacodyl 5 MG Tab PO PRN (12:07)
[2018-08-14] MEDS ORDERED: Docusate Sodium 100 MG Cap PO PRN (12:07)
[2018-08-14] MEDS ORDERED: Ondansetron 4 MG/2 ML SDV IVPUSH PRN (12:07)
[2018-08-14] MEDS ORDERED: Acetaminophen 325 MG Tab PO PRN (12:07)
[2018-08-14] MEDS: Cyclobenzaprine 10 MG Tab PO SCH ×4 (12:33→21:37)
--- NOTE | 2018-08-14 12:53 | PCM.HP ---
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 coli bacteremia with L foot ulcer and C. diff colitis and chronic pain secondary to osteoarthiritis. He was recently discharged from [facility], where he was transferred to from here for E coli bacteremia. There he saw ID and podiatry regard L foot wound which was had I&D performed. He continues to have L foot wound with packing, in which he has instructions to change daily until healed. He reports in [place], he was having a lot of chronic pain issues. They discharged him on Robaxin for muscle spasms. He previously has been treated with a wide variety of narcotics, including Tramadol, Morphine IR and Dilaudid. He reports the last few days he has had increasing back pain and spasms as well as chronic joint pain increasing. He denies fevers chills, URI symptoms or cough. No chest pain or SOB. No red warm or swollen joints. He reports his L foot wound has been looking good, but he has not changed the dressing in two days because his pain has been so bad. He reports the Morphine is not helping the pain and he no longer has pain medication prescriptions. He reports he was to see PCP this morning, Dr Melchor, as well as pain specialist in [place], [place] today. He canceled both due to needing to visit ED. Back pain is located across the lumbar spine, no urinary or bowel incontinence. It is very similar to his chronic pain, just not controlled well. He reports no diarrhea, but more loose stools. Not black or bloody. In the ED, labwork WNL. He was given Dilaudid IV and Ativan which helped with pain. He and son decline discharged and wanted to be admitted secondary to intractable pain. general Pain Score (Numeric/FACES): 8 - Related Data Allergies/Adverse Reactions: Allergies Allergy/AdvReac Type Severity Reaction Status Date / Time itraconazole [From Sporanox] Allergy Unknown Confusion Verified 08/14/18 06:54 levofloxacin [From Levaquin] Allergy Unknown Other Verified 08/14/18 06:54 Home Medications: Home Meds Pantoprazole [ProTONIX] 40 mg PO DAILY 05/19/18 [History] Apixaban [Eliquis] 5 mg PO BID tablet 07/21/18 [Rx] Diltiazem [Cardizem CD] 240 mg PO DAILY cap.cd 07/21/18 [Rx] Metoprolol Tartrate [Lopressor] 50 mg PO BID tablet 07/21/18 [Rx] Midodrine 2.5 mg PO BID tablet 07/21/18 [Rx] predniSONE 20 mg PO DAILY tablet 07/21/18 [Rx] Gabapentin [Neurontin] 800 mg PO Q6HR 08/05/18 [History] Past Medical History HEENT History: Reports: Cataract Other HEENT History: dental fillings due to caries; recent tooth fracture Cardiovascular History: Reports: Afib, Cardiomyopathy, Heart Failure, Hypertension, NM Respiratory History: Reports: Asthma, Bronchitis, Recurrent, PE, Pneumonia, Recurrent, Other (See Below) Other Respiratory History: Chronic pulmonary aspergillosis, 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 No explantation- -they apparently just treated him with IV abx for months. - Past Surgical History Head Surgeries/Procedures: Reports: None HEENT Surgical History: Reports: Cataract Surgery Cardiovascular Surgical History: Reports: None Respiratory Surgical History: Reports: Lung Resection Other Respiratory Surgeries/Procedures: intubated last Feb 2018 and transfered to [place] [facility] Surgical History: Reports: None Male Surgical History: Reports: None Endocrine Surgical History: Reports: None Neurological Surgical History: Reports: None Musculoskeletal Surgical History: Reports: Shoulder Surgery, Other (See Below) Other Musculoskeletal Surgeries/Procedures:: L shoulder and left hip surgery Oncologic Surgical History: Reports: None Dermatological Surgical History: Reports: None Social & Family History - Family History Family Medical History: Noncontributory - Tobacco Use Smoking Status *Q: Never Smoker - Caffeine Use Caffeine Use: Reports: Coffee - Recreational Drug Use Recreational Drug Use: No - Living Situation & Occupation Living situation: Reports: Single, with Family (sons) Occupation: Disabled H&P Review of Systems - Review of Systems: Review Of Systems: See Below General: Reports: No Symptoms. Denies: Fever, Chills, Malaise, Weakness HEENT: Reports: No Symptoms. Denies: Headaches, Post Nasal Drip, Sore Throat, Visual Changes Pulmonary: Reports: No Symptoms. Denies: Shortness of Breath, Pleuritic Chest Pain Cardiovascular: Reports: No Symptoms. Denies: Chest Pain, Dyspnea on Exertion, Syncope Gastrointestinal: Reports: No Symptoms. Denies: Abdominal Pain, Black Stool, Bloody Stool, Constipation, Stool Incontinence Genitourinary: Reports: No Symptoms. Denies: Dysuria, Urgency, Incontinence Musculoskeletal: Reports: Back Pain (low back pain with muscle spasms), Joint Pain ("every joint hurts") Skin: Reports: Bruising, Wound (L foot with packing) Psychiatric: Reports: No Symptoms Neurological: Reports: No Symptoms Hematologic/Lymphatic: Reports: No Symptoms Immunologic: Reports: No Symptoms Exam - Exam Exam: See Below - Vital Signs Vital Signs: Last Vital Signs Temp 98 F 08/14/18 06:54 Pulse 110 H 08/14/18 10:57 Resp 16 08/14/18 10:57 BP 114/82 08/14/18 10:57 Pulse Ox 95 08/14/18 10:57 Weight: 68.039 kg - Exam Quality Assessment: No: Supplemental Oxygen General: Alert, Oriented, Cooperative, Other (appears older than stated age) HEENT: Conjunctiva Clear, Mucosa Moist & [place] Lungs: Clear to Auscultation, Normal Respiratory Effort Cardiovascular: Regular Rate, Regular Rhythm, Normal S1, Normal S2. No: Tachycardia, Systolic Murmur GI/Abdominal Exam: Normal Bowel Sounds, Soft, Non-Tender, No Mass Back Exam: Normal Inspection, Decreased Range of Motion (due to pain and muscle spasms. Able to roll side to side and straight leg raise well, but causes increase in spasms), Muscle Spasm. No: CVA Tenderness (L), CVA Tenderness (R), Vertebral Tenderness Extremities: Normal Range of Motion, Non-Tender Skin: Wound (L foot, packing in place with serous drainage noted. Needs to be changed today, no erythema or warmth noted.) Neuro Extensive - Mental Status: Alert, Oriented x3, Normal Mood/Affect, Normal Cognition Psychiatric: Alert, Normal Affect, Normal Mood - Patient Data Lab Results Last 24 hrs: Laboratory Results - last 24 hr 08/14/18 08/14/18 Range/Units 07:43 07:43 WBC 9.15 (4.0-11.0) K/uL RBC 3.91 L (4.50-5.90) M/uL Hgb 10.2 L (13.0-17.0) g/dL Hct 33.8 L (38.0-50.0) % MCV 86.4 (80.0-98.0) fL MCH 26.1 L (27.0-32.0) pg MCHC 30.2 L (31.0-37.0) g/dL RDW Std Deviation 60.8 (28.0-62.0) fl RDW Coeff of Tre 19 H (11.0-15.0) % Plt Count 225 (150-400) K/uL MPV 10.00 (7.40-12.00) fL Neut % (Auto) 85.6 H (48.0-80.0) % Lymph % (Auto) 10.2 L (16.0-40.0) % Ada % (Auto) 4.0 (0.0-15.0) % Eos % (Auto) 0.2 (0.0-7.0) % Baso % (Auto) 0.0 (0.0-1.5) % Neut # (Auto) 7.8 H (1.4-5.7) K/uL Lymph # (Auto) 0.9 (0.6-2.4) K/uL Ada # (Auto) 0.4 (0.0-0.8) K/uL Eos # (Auto) 0.0 (0.0-0.7) K/uL Baso # (Auto) 0.0 (0.0-0.1) K/uL Nucleated RBC % 0.0 /100WBC Nucleated RBCs # 0 K/uL Sodium 136 (136-148) mmol/L Potassium 4.1 (3.5-5.1) mmol/L Chloride 98 (98-107) mmol/L Carbon Dioxide 31.6 (21.0-32.0) mmol/L BUN 13 (7.0-18.0) mg/dL Creatinine 1.2 (0.8-1.3) mg/dL Est Cr Clr Drug Dosing 56.19 mL/min Estimated GFR (MDRD) > 60.0 ml/min Glucose 100 (74-106) mg/dL Calcium 8.6 (8.5-10.1) mg/dL Total Bilirubin 0.9 (0.2-1.0) mg/dL AST 134 H (15-37) IU/L ALT 177 H (14-63) IU/L Alkaline Phosphatase 108 (46-116) U/L Total Protein 7.1 (6.4-8.2) g/dL Albumin 1.8 L (3.4-5.0) g/dL Globulin 5.3 H (2.6-4.0) g/dL Albumin/Globulin Ratio 0.3 L (0.9-1.6) Result Diagrams: 08/14/18 07:43 08/14/18 07:43 - Problem List (1) Intractable pain SNOMED Code(s): 74025789 ICD Code: R52 - PAIN, UNSPECIFIED Status: Acute Current Visit: Yes (2) Chronic pain SNOMED Code(s): 92959598 ICD Code: G89.29 - OTHER CHRONIC PAIN Status: Chronic Current Visit: Yes Qualifiers: Chronic pain type: other chronic pain Qualified Code(s): G89.29 - Other chronic pain (3) Immunocompromised due to corticosteroids SNOMED Code(s): 824295143 ICD Code: D84.8 - OTHER SPECIFIED IMMUNODEFICIENCIES; T38.0X5A - ADVERSE EFFECT OF GLUCOCORT/SYNTH ANALOG, INIT Status: Chronic Current Visit: No (4) Afib SNOMED Code(s): 49899810 ICD Code: I48.91 - UNSPECIFIED ATRIAL FIBRILLATION Status: Chronic Priority: High Current Visit: No Qualifiers: Atrial fibrillation type: persistent Qualified Code(s): I48.1 - Persistent atrial fibrillation (5) Aspergillosis SNOMED Code(s): 37515770 ICD Code: B44.9 - ASPERGILLOSIS, UNSPECIFIED Status: Chronic Priority: Medium Current Visit: No (6) Cardiomyopathy SNOMED Code(s): 60441134 ICD Code: I42.9 - CARDIOMYOPATHY, UNSPECIFIED Status: Chronic Priority: High Current Visit: No Qualifiers: Cardiomyopathy type: unspecified Qualified Code(s): I42.9 - Cardiomyopathy , unspecified (7) History of Clostridium difficile infection SNOMED Code(s): 851429736, 231801234 ICD Code: Z86.19 - PERSONAL HISTORY OF OTHER INFECTIOUS AND PARASITIC DISEASES Status: Chronic Priority: Medium Current Visit: No (8) Steroid-induced osteoporosis SNOMED Code(s): 944260533 ICD Code: T38.0X1A - POISONING BY GLUCOCORT/SYNTH ANALOG, ACCIDENTAL, INIT; M81.8 - OTHER OSTEOPOROSIS WITHOUT CURRENT PATHOLOGICAL FRACTURE Status: Chronic Priority: High Current Visit: No (9) Osteoarthritis SNOMED Code(s): 748820791 ICD Code: M19.90 - UNSPECIFIED OSTEOARTHRITIS, UNSPECIFIED SITE Status: Chronic Current Visit: Yes Qualifiers: Osteoarthritis location: unspecified site Problem List Initiated/Reviewed/Updated: Yes Orders Last 24hrs: Active Orders 24 hr Category Date Time Status Patient Status [ADT] Stat ADT 08/14/18 09:12 Active Intake and Output [RC] QSHIFT Care 08/14/18 12:08 Ordered Oxygen Therapy [RC] PRN Care 08/14/18 12:07 Ordered Up With Assistance [RC] ASDIRECTED Care 08/14/18 12:07 Ordered VTE/DVT Education [RC] PER UNIT ROUTINE Care 08/14/18 12:07 Ordered Vital Signs [RC] Q4H Care 08/14/18 12:07 Ordered Wound Care [RC] DAILY Care 08/14/18 12:48 Ordered OT Evaluation and Treatment [CONS] Routine Cons 08/14/18 12:07 Ordered PT Evaluation and Treatment [CONS] Routine Cons 08/14/18 12:07 Ordered Regular Diet [DIET] Diet 08/14/18 Lunch Ordered Acetaminophen [Tylenol] Med 08/14/18 12:07 Ordered 650 mg PO Q4H PRN Apixaban [Eliquis] Med 08/14/18 21:00 Ordered 5 mg PO BID Bisacodyl [Dulcolax] Med 08/14/18 12:07 Ordered 5 mg PO DAILY PRN Cyclobenzaprine [Flexeril] Med 08/14/18 14:00 Ordered 10 mg PO TID Diltiazem [Cardizem CD] Med 08/15/18 09:00 Ordered 240 mg PO DAILY Docusate Sodium [Colace] Med 08/14/18 12:07 Ordered 100 mg PO BID PRN HYDROmorphone [Dilaudid] Med 08/14/18 12:38 Ordered 1 mg IVPUSH Q3H PRN HYDROmorphone [Dilaudid] Med 08/14/18 12:38 Ordered 4 mg PO Q4H PRN Ketorolac [Toradol] Med 08/14/18 13:00 Ordered 30 mg IVPUSH Q6H Metoprolol Tartrate [Lopressor] Med 08/14/18 21:00 Ordered 50 mg PO BID Ondansetron [Zofran] Med 08/14/18 12:07 Ordered 4 mg IVPUSH Q4H PRN Pantoprazole [ProTONIX] Med 08/15/18 09:00 Ordered 40 mg PO DAILY Sodium Chloride 0.9% [Saline Flush] Med 08/14/18 12:07 Ordered 2.5 ml FLUSH ASDIRECTED PRN Saline Lock Insert [OM.PC] Routine Oth 08/14/18 12:07 Ordered Resuscitation Status Routine Resus Stat 08/14/18 12:07 Ordered Medication Orders Acetaminophen (Tylenol) 650 mg PO Q4H PRN PRN Reason: Pain (mild 1-3) Apixaban (Eliquis) 5 mg PO BID DANIELITO Bisacodyl (Dulcolax) 5 mg PO DAILY PRN PRN Reason: Constipation Cyclobenzaprine HCl (Flexeril) 10 mg PO TID DANIELITO Last Admin: 08/14/18 12:33 Dose: 10 mg Diltiazem HCl (Cardizem Cd) 240 mg PO DAILY [facility] Docusate Sodium (Colace) 100 mg PO BID PRN PRN Reason: Constipation Hydromorphone HCl (Dilaudid) 1 mg IVPUSH Q3H PRN PRN Reason: severe pain Hydromorphone HCl (Dilaudid) 4 mg PO Q4H PRN PRN Reason: Pain Ketorolac Tromethamine (Toradol) 30 mg IVPUSH Q6H [facility] Stop: 08/14/18 19:01 Metoprolol Tartrate (Lopressor) 50 mg PO BID [facility] Ondansetron HCl (Zofran) 4 mg IVPUSH Q4H PRN PRN Reason: Nausea Pantoprazole Sodium (Protonix) 40 mg PO DAILY [facility] Sodium Chloride (Saline Flush) 2.5 ml FLUSH ASDIRECTED PRN PRN Reason: Keep Vein Open Assessment/Plan Comment:: This 58 year old male admitted with intractable low back pain 1. Intractable acute on chronic low back pain: Reports meds at home at home working and have run out of all narcotics at home. Will start Dilaudid 4 mg PO Q4 hr PRN Pain, IV Dilaudid 1 mg every 3 hours PRN pain. Nursing instructed to limit IV dosing to as little as possible to get pain controlled with PO medications. Will also start Flexeril 10 mg PO TID for muscle spasms. We had a long discussed regarding pain control and pain medications, in particular narcotics. He will need to speak with PCP or pain specialist for further refills on medications. He reports Morphine IR was not helping pain at all. We will arrange follow ups with both providers. Will also order PT and OT to evaluate and treat for back pain and joint pain accompanied with ADLs. 2. Afib: Stable. Continue Metoprolol and Diltiazem. Continue Anticoagulation with Eliquis. 3. Bronchpulmonary aspergillosis: Continue Prednisone 4. L foot wound: Continue home dressing changes. Change today, as it has not been changed in 2 days. VTE prophylaxis: Eliquis Dispo: 1-2 days pending improvement. <Claudy Bo - Last Filed: 08/14/18 17:34> H&P History of Present Illness - General Admit Problem/Dx: Admission Diagnosis/Problem Admission Diagnosis/Problem Chronic pain - History of Present Illness Initial Comments - Free Text/Narative: I have examined the patient independently of Sasha Munoz CNP. Admitted mainly for pain control. I have discussed the case with her. I have reviewed and agree with the plan of care as outlined by her. Please see orders. Exam - Vital Signs Vital Signs: Last Vital Signs Temp 36.6 C 08/14/18 16:07 Pulse 89 08/14/18 16:07 Resp 16 08/14/18 16:07 BP 105/62 08/14/18 16:07 Pulse Ox 95 08/14/18 16:07 - Patient Data Lab Results Last 24 hrs: Laboratory Results - last 24 hr 08/14/18 08/14/18 Range/Units 07:43 07:43 WBC 9.15 (4.0-11.0) K/uL RBC 3.91 L (4.50-5.90) M/uL Hgb 10.2 L (13.0-17.0) g/dL Hct 33.8 L (38.0-50.0) % MCV 86.4 (80.0-98.0) fL MCH 26.1 L (27.0-32.0) pg MCHC 30.2 L (31.0-37.0) g/dL RDW Std Deviation 60.8 (28.0-62.0) fl RDW Coeff of Tre 19 H (11.0-15.0) % Plt Count 225 (150-400) K/uL MPV 10.00 (7.40-12.00) fL Neut % (Auto) 85.6 H (48.0-80.0) % Lymph % (Auto) 10.2 L (16.0-40.0) % Ada % (Auto) 4.0 (0.0-15.0) % Eos % (Auto) 0.2 (0.0-7.0) % Baso % (Auto) 0.0 (0.0-1.5) % Neut # (Auto) 7.8 H (1.4-5.7) K/uL Lymph # (Auto) 0.9 (0.6-2.4) K/uL Ada # (Auto) 0.4 (0.0-0.8) K/uL Eos # (Auto) 0.0 (0.0-0.7) K/uL Baso # (Auto) 0.0 (0.0-0.1) K/uL Nucleated RBC % 0.0 /100WBC Nucleated RBCs # 0 K/uL Sodium 136 (136-148) mmol/L Potassium 4.1 (3.5-5.1) mmol/L Chloride 98 (98-107) mmol/L Carbon Dioxide 31.6 (21.0-32.0) mmol/L BUN 13 (7.0-18.0) mg/dL Creatinine 1.2 (0.8-1.3) mg/dL Est Cr Clr Drug Dosing 56.19 mL/min Estimated GFR (MDRD) > 60.0 ml/min Glucose 100 (74-106) mg/dL Calcium 8.6 (8.5-10.1) mg/dL Total Bilirubin 0.9 (0.2-1.0) mg/dL AST 134 H (15-37) IU/L ALT 177 H (14-63) IU/L Alkaline Phosphatase 108 (46-116) U/L Total Protein 7.1 (6.4-8.2) g/dL Albumin 1.8 L (3.4-5.0) g/dL Globulin 5.3 H (2.6-4.0) g/dL Albumin/Globulin Ratio 0.3 L (0.9-1.6) Result Diagrams: 08/14/18 07:43 08/14/18 07:43 Orders Last 24hrs: Active Orders 24 hr Category Date Time Status Patient Status [ADT] Stat ADT 08/14/18 09:12 Active Intake and Output [RC] Q12H Care 08/14/18 12:08 Active Oxygen Therapy [RC] PRN Care 08/14/18 12:07 Active Up With Assistance [RC] ASDIRECTED Care 08/14/18 12:07 Active VTE/DVT Education [RC] PER UNIT ROUTINE Care 08/14/18 12:07 Active Vital Signs [RC] Q4H Care 08/14/18 12:07 Active Wound Care [RC] DAILY Care 08/14/18 12:48 Active OT Evaluation and Treatment [CONS] Routine Cons 08/14/18 12:07 Active PT Evaluation and Treatment [CONS] Routine Cons 08/14/18 12:07 Active Regular Diet [DIET] Diet 08/14/18 Lunch Active Acetaminophen [Tylenol] Med 08/14/18 12:07 Active 650 mg PO Q4H PRN Apixaban [Eliquis] Med 08/14/18 21:00 Active 5 mg PO BID Bisacodyl [Dulcolax] Med 08/14/18 12:07 Active 5 mg PO DAILY PRN Cyclobenzaprine [Flexeril] Med 08/14/18 14:00 Active 10 mg PO TID Diltiazem [Cardizem CD] Med 08/15/18 09:00 Active 240 mg PO DAILY Docusate Sodium [Colace] Med 08/14/18 12:07 Active 100 mg PO BID PRN Gabapentin [Neurontin] Med 08/14/18 18:00 Active 800 mg PO Q6HR HYDROmorphone [Dilaudid] Med 08/14/18 12:38 Active 1 mg IVPUSH Q3H PRN HYDROmorphone [Dilaudid] Med 08/14/18 12:38 Active 4 mg PO Q4H PRN Metoprolol Tartrate [Lopressor] Med 08/14/18 21:00 Active 50 mg PO BID Midodrine Med 08/14/18 21:00 Active 2.5 mg PO BID Ondansetron [Zofran] Med 08/14/18 12:07 Active 4 mg IVPUSH Q4H PRN Pantoprazole [ProTONIX] Med 08/15/18 09:00 Active 40 mg PO DAILY Sodium Chloride 0.9% [Saline Flush] Med 08/14/18 12:07 Active 2.5 ml FLUSH ASDIRECTED PRN diazePAM [Valium] Med 08/14/18 13:38 Active 2 mg PO TID PRN predniSONE Med 08/15/18 09:00 Active 20 mg PO DAILY Saline Lock Insert [OM.PC] Routine Oth 08/14/18 12:07 Ordered Resuscitation Status Routine Resus Stat 08/14/18 12:07 Ordered Medication Orders Acetaminophen (Tylenol) 650 mg PO Q4H PRN PRN Reason: Pain (mild 1-3) Apixaban (Eliquis) 5 mg PO BID DANIELITO Bisacodyl (Dulcolax) 5 mg PO DAILY PRN PRN Reason: Constipation Cyclobenzaprine HCl (Flexeril) 10 mg PO TID DANIELITO Last Admin: 08/14/18 15:19 Dose: Admin: 08/14/18 12:33 Dose: 10 mg Diazepam (Valium) 2 mg PO TID PRN PRN Reason: muscle spasms Diltiazem HCl (Cardizem Cd) 240 mg PO DAILY [facility] Docusate Sodium (Colace) 100 mg PO BID PRN PRN Reason: Constipation Gabapentin (Neurontin) 800 mg PO Q6HR DANIELITO Last Admin: 08/14/18 17:10 Dose: 800 mg Hydromorphone HCl (Dilaudid) 1 mg IVPUSH Q3H PRN PRN Reason: severe pain Hydromorphone HCl (Dilaudid) 4 mg PO Q4H PRN PRN Reason: Pain Last Admin: 08/14/18 15:20 Dose: 4 mg Metoprolol Tartrate (Lopressor) 50 mg PO BID [facility] Midodrine (Midodrine) 2.5 mg PO BID [facility] Ondansetron HCl (Zofran) 4 mg IVPUSH Q4H PRN PRN Reason: Nausea Pantoprazole Sodium (Protonix) 40 mg PO DAILY [facility] Prednisone (Prednisone) 20 mg PO DAILY [facility] Sodium Chloride (Saline Flush) 2.5 ml FLUSH ASDIRECTED PRN PRN Reason: Keep Vein Open
[2018-08-14] MEDS ORDERED: Ketorolac 30 MG/ML SDV IVPUSH SCH (13:00)
[2018-08-14] MEDS ORDERED: Diazepam 2 MG Tab PO PRN (13:38)
[2018-08-14] MEDS: HYDROmorphone 2 MG Tab PO PRN ×2 (15:20→20:06)
[2018-08-14] MEDS: Gabapentin 800 MG Tab PO SCH (17:10)
[2018-08-14] MEDS: Apixaban 5 MG Tab PO SCH (20:06)
[2018-08-14] MEDS: Midodrine 5 MG Tab PO SCH (20:06)
[2018-08-14] MEDS: Metoprolol Tartrate 50 MG Tab PO SCH (20:22)
[2018-08-15] MEDS: HYDROmorphone 2 MG Tab PO PRN ×2 (00:31→12:40)
[2018-08-15] MEDS: Gabapentin 800 MG Tab PO SCH ×5 (00:32→23:59)
[2018-08-15] MEDS: HYDROmorphone 1 MG/ML Syringe IVPUSH PRN ×6 (05:18→23:59)
[2018-08-15] MEDS: Cyclobenzaprine 10 MG Tab PO SCH ×3 (05:19→23:59)
[2018-08-15] MEDS: Diltiazem 120 MG Cap.CD PO SCH (08:45)
[2018-08-15] MEDS: Metoprolol Tartrate 50 MG Tab PO SCH ×2 (08:46→20:37)
[2018-08-15] MEDS: Midodrine 5 MG Tab PO SCH ×2 (08:47→20:38)
[2018-08-15] MEDS: Apixaban 5 MG Tab PO SCH ×2 (08:47→20:38)
[2018-08-15] MEDS: predniSONE 20 MG Tab PO SCH (08:47)
[2018-08-15] MEDS: Pantoprazole 40 MG Tab.CR PO SCH (08:47)
--- NOTE | 2018-08-15 09:06 | PCM.PN ---
- General Info Date of Service: 08/15/18 Admission Dx/Problem (Free Text): Admission Diagnosis/Problem Admission Diagnosis/Problem Chronic pain Subjective Update: Continues to report pain, has not been out of bed. pain 5-6/10 with spasming. No chest pain or SOB. Still urinating with no troubles. No incontinence. Functional Status: Reports: Tolerating Diet, Urinating. Denies: Pain Controlled , Ambulating - Review of Systems General: Reports: No Symptoms. Denies: Fever, Weakness, Fatigue, Malaise HEENT: Reports: No Symptoms. Denies: Headaches, Sore Throat, Visual Changes Pulmonary: Reports: No Symptoms. Denies: Shortness of Breath Cardiovascular: Reports: No Symptoms. Denies: Chest Pain Gastrointestinal: Reports: No Symptoms. Denies: Abdominal Pain, Nausea, Vomiting Genitourinary: Reports: No Symptoms. Denies: Dysuria, Frequency, Burning, Incontinence Musculoskeletal: Reports: Back Pain (low back pain) Skin: Reports: No Symptoms Neurological: Reports: No Symptoms. Denies: Numbness, Paresthesia, Tingling Psychiatric: Reports: No Symptoms - Patient Data Vitals - Most Recent: Last Vital Signs Temp 97.8 F 08/15/18 07:35 Pulse 72 08/15/18 08:46 Resp 16 08/15/18 07:35 BP 125/64 08/15/18 08:46 Pulse Ox 95 08/15/18 07:35 Weight - Most Recent: 68.039 kg I&O - Last 24 Hours: Intake & Output 08/14/18 08/15/18 08/15/18 22:59 06:59 14:59 Intake Total 300 300 Output Total 250 680 Balance 50 -380 Med Orders - Current: Current Medications Acetaminophen (Tylenol) 650 mg PO Q4H PRN PRN Reason: Pain (mild 1-3) Apixaban (Eliquis) 5 mg PO BID [facility] Last Admin: 08/15/18 08:47 Dose: 5 mg Bisacodyl (Dulcolax) 5 mg PO DAILY PRN PRN Reason: Constipation Cyclobenzaprine HCl (Flexeril) 10 mg PO TID [facility] Last Admin: 08/15/18 05:19 Dose: 10 mg Diazepam (Valium) 2 mg PO TID PRN PRN Reason: muscle spasms Diltiazem HCl (Cardizem Cd) 240 mg PO DAILY [facility] Last Admin: 08/15/18 08:45 Dose: 240 mg Docusate Sodium (Colace) 100 mg PO BID PRN PRN Reason: Constipation Gabapentin (Neurontin) 800 mg PO Q6HR [facility] Last Admin: 08/15/18 05:19 Dose: 800 mg Hydromorphone HCl (Dilaudid) 1 mg IVPUSH Q3H PRN PRN Reason: severe pain Last Admin: 08/15/18 08:49 Dose: 1 mg Hydromorphone HCl (Dilaudid) 4 mg PO Q4H PRN PRN Reason: Pain Last Admin: 08/15/18 00:31 Dose: 4 mg Metoprolol Tartrate (Lopressor) 50 mg PO BID [facility] Last Admin: 08/15/18 08:46 Dose: 50 mg Midodrine (Midodrine) 2.5 mg PO BID [facility] Last Admin: 08/15/18 08:47 Dose: 2.5 mg Ondansetron HCl (Zofran) 4 mg IVPUSH Q4H PRN PRN Reason: Nausea Pantoprazole Sodium (Protonix) 40 mg PO DAILY [facility] Last Admin: 08/15/18 08:47 Dose: 40 mg Prednisone (Prednisone) 20 mg PO DAILY [facility] Last Admin: 08/15/18 08:47 Dose: 20 mg Sodium Chloride (Saline Flush) 2.5 ml FLUSH ASDIRECTED PRN PRN Reason: Keep Vein Open Discontinued Medications Hydromorphone HCl (Dilaudid) 1 mg IM ONETIME ONE Stop: 08/14/18 06:59 Last Admin: 08/14/18 07:08 Dose: Not Given Hydromorphone HCl (Dilaudid) 1 mg IM ONETIME ONE Stop: 08/14/18 07:06 Last Admin: 08/14/18 07:06 Dose: 1 mg Hydromorphone HCl (Dilaudid) Confirm Administered Dose 1 mg .ROUTE .STK-MED ONE Stop: 08/14/18 07:05 Last Admin: 08/14/18 07:12 Dose: Not Given Ketorolac Tromethamine (Toradol) 30 mg IVPUSH Q6H [facility] Stop: 08/14/18 19:01 Last Admin: 08/14/18 15:14 Dose: Not Given Lorazepam (Ativan) 0.5 mg PO ONETIME ONE Stop: 08/14/18 07:31 Last Admin: 08/14/18 07:54 Dose: 0.5 mg - Exam General: Alert, Oriented, Cooperative Lungs: Clear to Auscultation, Normal Respiratory Effort Cardiovascular: Regular Rate, Regular Rhythm GI/Abdominal Exam: Normal Bowel Sounds, Soft, Non-Tender, No Organomegaly Back Exam: Normal Inspection. No: Full Range of Motion (decreased to pain no spinal tenderness) Extremities: Normal Inspection, No Pedal Edema, Normal Capillary Refill, Redness (mild erythema noted to L gonzalez, will monitor.). No: Normal Range of Motion (unable to do straight let raise) Neurological: No New Focal Deficit, Strength Equal Bilateral Psy/Mental Status: Alert, Normal Affect, Normal Mood - Problem List & Annotations (1) Intractable pain SNOMED Code(s): 46915870 Code(s): R52 - PAIN, UNSPECIFIED Status: Acute Current Visit: Yes (2) Chronic pain SNOMED Code(s): 20604177 Code(s): G89.29 - OTHER CHRONIC PAIN Status: Chronic Current Visit: Yes Qualifiers: Chronic pain type: other chronic pain Qualified Code(s): G89.29 - Other chronic pain (3) Immunocompromised due to corticosteroids SNOMED Code(s): 207910243 Code(s): D84.8 - OTHER SPECIFIED IMMUNODEFICIENCIES; T38.0X5A - ADVERSE EFFECT OF GLUCOCORT/SYNTH ANALOG, INIT Status: Chronic Current Visit: No (4) Afib SNOMED Code(s): 89284933 Code(s): I48.91 - UNSPECIFIED ATRIAL FIBRILLATION Status: Chronic Priority: High Current Visit: No Qualifiers: Atrial fibrillation type: persistent Qualified Code(s): I48.1 - Persistent atrial fibrillation (5) Aspergillosis SNOMED Code(s): 35826628 Code(s): B44.9 - ASPERGILLOSIS, UNSPECIFIED Status: Chronic Priority: Medium Current Visit: No (6) Cardiomyopathy SNOMED Code(s): 29285319 Code(s): I42.9 - CARDIOMYOPATHY, UNSPECIFIED Status: Chronic Priority: High Current Visit: No Qualifiers: Cardiomyopathy type: unspecified Qualified Code(s): I42.9 - Cardiomyopathy , unspecified (7) History of Clostridium difficile infection SNOMED Code(s): 694666522, 489683803 Code(s): Z86.19 - PERSONAL HISTORY OF OTHER INFECTIOUS AND PARASITIC DISEASES Status: Chronic Priority: Medium Current Visit: No (8) Steroid-induced osteoporosis SNOMED Code(s): 733559877 Code(s): T38.0X1A - POISONING BY GLUCOCORT/SYNTH ANALOG, ACCIDENTAL, INIT; M81.8 - OTHER OSTEOPOROSIS WITHOUT CURRENT PATHOLOGICAL FRACTURE Status: Chronic Priority: High Current Visit: No (9) Osteoarthritis SNOMED Code(s): 072119790 Code(s): M19.90 - UNSPECIFIED OSTEOARTHRITIS, UNSPECIFIED SITE Status: Chronic Current Visit: Yes Qualifiers: Osteoarthritis location: unspecified site - Problem List Review Problem List Initiated/Reviewed/Updated: Yes - My Orders Last 24 Hours: My Active Orders 08/14/18 12:07 Oxygen Therapy [RC] PRN Up With Assistance [RC] ASDIRECTED VTE/DVT Education [RC] PER UNIT ROUTINE Vital Signs [RC] Q4H OT Evaluation and Treatment [CONS] Routine PT Evaluation and Treatment [CONS] Routine Acetaminophen [Tylenol] 650 mg PO Q4H PRN Bisacodyl [Dulcolax] 5 mg PO DAILY PRN Docusate Sodium [Colace] 100 mg PO BID PRN Ondansetron [Zofran] 4 mg IVPUSH Q4H PRN Sodium Chloride 0.9% [Saline Flush] 2.5 ml FLUSH ASDIRECTED PRN Saline Lock Insert [OM.PC] Routine Resuscitation Status Routine 08/14/18 12:08 Intake and Output [RC] Q12H 08/14/18 12:38 HYDROmorphone [Dilaudid] 1 mg IVPUSH Q3H PRN HYDROmorphone [Dilaudid] 4 mg PO Q4H PRN 08/14/18 12:48 Wound Care [RC] DAILY 08/14/18 13:38 diazePAM [Valium] 2 mg PO TID PRN 08/14/18 14:00 Cyclobenzaprine [Flexeril] 10 mg PO TID 08/14/18 18:00 Gabapentin [Neurontin] 800 mg PO Q6HR 08/14/18 21:00 Apixaban [Eliquis] 5 mg PO BID Metoprolol Tartrate [Lopressor] 50 mg PO BID Midodrine 2.5 mg PO BID 08/14/18 Lunch Regular Diet [DIET] 08/15/18 09:00 Diltiazem [Cardizem CD] 240 mg PO DAILY Pantoprazole [ProTONIX] 40 mg PO DAILY predniSONE 20 mg PO DAILY 08/15/18 09:04 CBC WITH AUTO DIFF [HEME] Routine 08/15/18 09:05 BMP [BASIC METABOLIC PANEL,BMP] [CHEM] Routine - Plan Plan:: This 58 year old male admitted with intractable low back pain 1. Intractable acute on chronic low back pain: Continue Dilaudid 4 mg PO Q4 hr PRN Pain, IV Dilaudid 1 mg every 3 hours PRN pain. Nursing instructed to limit IV dosing to as little as possible to get pain controlled with PO medications. Continue Flexeril 10 mg PO TID for muscle spasms. Heat and ICE to back PRN We had a long discussed regarding pain control and pain medications, in particular narcotics. He will need to speak with PCP or pain specialist for further refills on medications. He reports Morphine IR was not helping pain at all. We will arrange follow ups with both providers. Will also order PT and OT to evaluate and treat for back pain and joint pain accompanied with ADLs. 2. Persistent Afib: Stable. Continue Metoprolol and Diltiazem. Continue Anticoagulation with Eliquis. 3. Bronchpulmonary aspergillosis: Continue Prednisone 4. L foot wound: Continue home dressing changes. Change today, as it has not been changed in 2 days. VTE prophylaxis: Eliquis Dispo: 1-2 days pending improvement.
[2018-08-15 10:22] LABS: CHLORIDE,CL 100 mmol/L (98-107); SODIUM,NA 136 mmol/L (136-148)
[2018-08-15] MEDS ORDERED: Diclofenac Sodium 1 APPLIC TOP PRN (12:27)
[2018-08-16] MEDS: HYDROmorphone 1 MG/ML Syringe IVPUSH PRN ×2 (04:35→08:07)
[2018-08-16] MEDS: Cyclobenzaprine 10 MG Tab PO SCH ×3 (06:09→23:54)
[2018-08-16] MEDS: Gabapentin 800 MG Tab PO SCH ×4 (06:09→23:54)
[2018-08-16] MEDS: Diltiazem 120 MG Cap.CD PO SCH (09:07)
[2018-08-16] MEDS: Midodrine 5 MG Tab PO SCH ×3 (09:08→20:04)
[2018-08-16] MEDS: Metoprolol Tartrate 50 MG Tab PO SCH ×3 (09:08→20:05)
[2018-08-16] MEDS: Pantoprazole 40 MG Tab.CR PO SCH (09:09)
[2018-08-16] MEDS: predniSONE 20 MG Tab PO SCH (09:09)
[2018-08-16] MEDS: Apixaban 5 MG Tab PO SCH ×3 (09:09→20:03)
[2018-08-16] MEDS: HYDROmorphone 2 MG Tab PO PRN ×4 (09:14→23:53)
[2018-08-16] MEDS: Sulfamethoxazole/Trimethoprim 800-160 MG Tab PO SCH ×3 (10:02→20:05)
--- NOTE | 2018-08-16 10:16 | PCM.PN ---
- General Info Date of Service: 08/16/18 Admission Dx/Problem (Free Text): Admission Diagnosis/Problem Admission Diagnosis/Problem Chronic pain Subjective Update: Reports pain is somewhat improved, but complains the IV dose is "light" He was educated that he should not be relying on IV dosing since goal of getting is to be on oral medications. He received all IV medications yesterday after 12 noon. No chest pain or SOB. No leg pain or fevers. Back pain continues. Functional Status: Reports: Tolerating Diet, Urinating. Denies: Pain Controlled , Ambulating - Review of Systems General: Reports: No Symptoms. Denies: Fever, Weakness, Fatigue, Malaise HEENT: Reports: No Symptoms. Denies: Headaches, Sore Throat Pulmonary: Reports: No Symptoms. Denies: Shortness of Breath, Cough, Sputum Cardiovascular: Reports: No Symptoms. Denies: Chest Pain, Edema Gastrointestinal: Reports: No Symptoms. Denies: Abdominal Pain, Nausea, Vomiting Genitourinary: Reports: No Symptoms. Denies: Dysuria, Frequency, Burning Musculoskeletal: Reports: Back Pain (low back pain with spasms, exacerbated by movement) Skin: Reports: No Symptoms Neurological: Reports: No Symptoms Psychiatric: Reports: No Symptoms - Patient Data Vitals - Most Recent: Last Vital Signs Temp 98.1 F 08/16/18 08:00 Pulse 64 08/16/18 09:08 Resp 14 08/16/18 08:00 BP 112/68 08/16/18 09:08 Pulse Ox 90 L 08/16/18 08:00 Weight - Most Recent: 68.039 kg I&O - Last 24 Hours: Intake & Output 08/15/18 08/16/18 08/16/18 22:59 06:59 14:59 Intake Total 670 400 Output Total 450 600 Balance 220 -200 Lab Results Last 24 Hours: Laboratory Results - last 24 hr 08/15/18 Range/Units 09:51 Sodium 136 (136-148) mmol/L Potassium 4.2 (3.5-5.1) mmol/L Chloride 100 (98-107) mmol/L Carbon Dioxide 30.2 (21.0-32.0) mmol/L BUN 19 H (7.0-18.0) mg/dL Creatinine 1.2 (0.8-1.3) mg/dL Est Cr Clr Drug Dosing TNP Estimated GFR (MDRD) > 60.0 ml/min Glucose 130 H (74-106) mg/dL Calcium 8.7 (8.5-10.1) mg/dL Med Orders - Current: Current Medications Acetaminophen (Tylenol) 650 mg PO Q4H PRN PRN Reason: Pain (mild 1-3) Apixaban (Eliquis) 5 mg PO BID [facility] Last Admin: 08/16/18 09:09 Dose: 5 mg Bisacodyl (Dulcolax) 5 mg PO DAILY PRN PRN Reason: Constipation Cyclobenzaprine HCl (Flexeril) 10 mg PO TID [facility] Last Admin: 08/16/18 06:09 Dose: 10 mg Diazepam (Valium) 2 mg PO TID PRN PRN Reason: muscle spasms Diltiazem HCl (Cardizem Cd) 240 mg PO DAILY [facility] Last Admin: 08/16/18 09:07 Dose: 240 mg Docusate Sodium (Colace) 100 mg PO BID PRN PRN Reason: Constipation Gabapentin (Neurontin) 800 mg PO Q6HR [facility] Last Admin: 08/16/18 06:09 Dose: 800 mg Hydromorphone HCl (Dilaudid) 1 mg IVPUSH Q3H PRN PRN Reason: severe pain Last Admin: 08/16/18 08:07 Dose: 1 mg Hydromorphone HCl (Dilaudid) 4 mg PO Q4H PRN PRN Reason: Pain Last Admin: 08/16/18 09:14 Dose: 4 mg Metoprolol Tartrate (Lopressor) 50 mg PO BID [facility] Last Admin: 08/16/18 09:08 Dose: 50 mg Midodrine (Midodrine) 2.5 mg PO BID [facility] Last Admin: 08/16/18 09:08 Dose: 2.5 mg Ondansetron HCl (Zofran) 4 mg IVPUSH Q4H PRN PRN Reason: Nausea Pantoprazole Sodium (Protonix) 40 mg PO DAILY [facility] Last Admin: 08/16/18 09:09 Dose: 40 mg Diclofenac Sodium 1 (Applic) 1 each TOP TID PRN PRN Reason: Pain Prednisone (Prednisone) 20 mg PO DAILY [facility] Last Admin: 08/16/18 09:09 Dose: 20 mg Sodium Chloride (Saline Flush) 2.5 ml FLUSH ASDIRECTED PRN PRN Reason: Keep Vein Open Trimethoprim/Sulfamethoxazole (Septra Ds) 1 tab PO BID [facility] Last Admin: 08/16/18 10:02 Dose: 1 tab Discontinued Medications Hydromorphone HCl (Dilaudid) 1 mg IM ONETIME ONE Stop: 08/14/18 06:59 Last Admin: 08/14/18 07:08 Dose: Not Given Hydromorphone HCl (Dilaudid) 1 mg IM ONETIME ONE Stop: 08/14/18 07:06 Last Admin: 08/14/18 07:06 Dose: 1 mg Hydromorphone HCl (Dilaudid) Confirm Administered Dose 1 mg .ROUTE .STK-MED ONE Stop: 08/14/18 07:05 Last Admin: 08/14/18 07:12 Dose: Not Given Ketorolac Tromethamine (Toradol) 30 mg IVPUSH Q6H [facility] Stop: 08/14/18 19:01 Last Admin: 08/14/18 15:14 Dose: Not Given Lorazepam (Ativan) 0.5 mg PO ONETIME ONE Stop: 08/14/18 07:31 Last Admin: 08/14/18 07:54 Dose: 0.5 mg - Exam Quality Assessment: DVT Prophylaxis. No: Supplemental Oxygen General: Alert, Oriented, Cooperative, No Acute Distress Lungs: Clear to Auscultation, Normal Respiratory Effort Cardiovascular: Regular Rate, Irregular Rhythm GI/Abdominal Exam: Normal Bowel Sounds, Soft, Non-Tender, No Mass Extremities: Normal Inspection, No Pedal Edema. No: Normal Range of Motion ( limited due to back pain, increased from yesterday due to pain control improvement) Wound/Incisions: Erythema (R lateral lower leg, possible pustules noted. No pain. Increased warmth and redness.) Neurological: No New Focal Deficit Psy/Mental Status: Alert, Normal Affect, Normal Mood - Problem List & Annotations (1) Intractable pain SNOMED Code(s): 08180413 Code(s): R52 - PAIN, UNSPECIFIED Status: Acute Current Visit: Yes (2) Cellulitis SNOMED Code(s): 993287925 Code(s): L03.90 - CELLULITIS, UNSPECIFIED Status: Acute Current Visit: No (3) Chronic pain SNOMED Code(s): 24414940 Code(s): G89.29 - OTHER CHRONIC PAIN Status: Chronic Current Visit: Yes Qualifiers: Chronic pain type: other chronic pain Qualified Code(s): G89.29 - Other chronic pain (4) Immunocompromised due to corticosteroids SNOMED Code(s): 214925461 Code(s): D84.8 - OTHER SPECIFIED IMMUNODEFICIENCIES; T38.0X5A - ADVERSE EFFECT OF GLUCOCORT/SYNTH ANALOG, INIT Status: Chronic Current Visit: No (5) Afib SNOMED Code(s): 69225508 Code(s): I48.91 - UNSPECIFIED ATRIAL FIBRILLATION Status: Chronic Priority: High Current Visit: No Qualifiers: Atrial fibrillation type: persistent Qualified Code(s): I48.1 - Persistent atrial fibrillation (6) Aspergillosis SNOMED Code(s): 84513761 Code(s): B44.9 - ASPERGILLOSIS, UNSPECIFIED Status: Chronic Priority: Medium Current Visit: No (7) Cardiomyopathy SNOMED Code(s): 43512727 Code(s): I42.9 - CARDIOMYOPATHY, UNSPECIFIED Status: Chronic Priority: High Current Visit: No Qualifiers: Cardiomyopathy type: unspecified Qualified Code(s): I42.9 - Cardiomyopathy , unspecified (8) History of Clostridium difficile infection SNOMED Code(s): 294858077, 558651389 Code(s): Z86.19 - PERSONAL HISTORY OF OTHER INFECTIOUS AND PARASITIC DISEASES Status: Chronic Priority: Medium Current Visit: No (9) Steroid-induced osteoporosis SNOMED Code(s): 240317403 Code(s): T38.0X1A - POISONING BY GLUCOCORT/SYNTH ANALOG, ACCIDENTAL, INIT; M81.8 - OTHER OSTEOPOROSIS WITHOUT CURRENT PATHOLOGICAL FRACTURE Status: Chronic Priority: High Current Visit: No (10) Osteoarthritis SNOMED Code(s): 100129143 Code(s): M19.90 - UNSPECIFIED OSTEOARTHRITIS, UNSPECIFIED SITE Status: Chronic Current Visit: Yes Qualifiers: Osteoarthritis location: unspecified site - Problem List Review Problem List Initiated/Reviewed/Updated: Yes - My Orders Last 24 Hours: My Active Orders 08/15/18 12:27 Patient's Own Medication [Ptom] 1 each TOP TID PRN 08/16/18 10:00 Sulfamethoxazole/Trimethoprim [Septra DS] 1 tab PO BID - Plan Plan:: This 58 year old male admitted with intractable low back pain 1. Intractable acute on chronic low back pain: Encouraged to use Dilaudid 4 mg PO Q4 hr PRN Pain Not IV Dilaudid. Will DC IV pain medication for now. I am awaiting call back from pain Dr, Dr Fisher in [place], [place] for his recommendations and instructions on how to treat chronic back pain. Continue Flexeril 10 mg PO TID for muscle spasms. Heat and ICE to back PRN We had a long discussed regarding pain control and pain medications, in particular narcotics. He will need to speak with PCP or pain specialist for further refills on medications. He reports Morphine IR was not helping pain at all. We will arrange follow ups with both providers. Will also order PT and OT to evaluate and treat for back pain and joint pain accompanied with ADLs. 2. Cellulitis: L lateral lower leg, no leukocytosis, no fevers. High risk of bacteremia due to immunocompromised state. Will start Bactrim DS BID now. Monitor. 3. Persistent Afib: Stable. Continue Metoprolol and Diltiazem. Continue Anticoagulation with Eliquis. 4. Broncho-pulmonary aspergillosis: Continue Prednisone 5. L foot wound: Continue home dressing changes. Change today, as it has not been changed in 2 days. VTE prophylaxis: Eliquis Dispo: 1-2 days pending improvement, will make inpatient.
[2018-08-16] MEDS: Acidophilus with Citrus Pectin Tab PO SCH ×3 (11:28→20:03)
[2018-08-16] MEDS: Diclofenac Sodium 1 APPLIC TOP SCH ×2 (15:45→23:00)
[2018-08-17] MEDS: HYDROmorphone 2 MG Tab PO PRN ×5 (04:08→23:08)
[2018-08-17] MEDS: Gabapentin 800 MG Tab PO SCH ×5 (04:09→23:07)
[2018-08-17] MEDS: Cyclobenzaprine 10 MG Tab PO SCH ×4 (04:09→21:00)
[2018-08-17] MEDS: Diclofenac Sodium 1 APPLIC TOP SCH ×3 (05:12→23:07)
[2018-08-17 06:18] LABS: CHLORIDE,CL 103 mmol/L (98-107); SODIUM,NA 138 mmol/L (136-148)
[2018-08-17] MEDS: Diltiazem 120 MG Cap.CD PO SCH (08:23)
[2018-08-17] MEDS: Acidophilus with Citrus Pectin Tab PO SCH ×2 (08:23→20:55)
[2018-08-17] MEDS: Metoprolol Tartrate 50 MG Tab PO SCH ×2 (08:24→20:54)
[2018-08-17] MEDS: Midodrine 5 MG Tab PO SCH ×2 (08:25→20:55)
[2018-08-17] MEDS: Sulfamethoxazole/Trimethoprim 800-160 MG Tab PO SCH ×2 (08:27→20:55)
[2018-08-17] MEDS: predniSONE 20 MG Tab PO SCH (08:27)
[2018-08-17] MEDS: Pantoprazole 40 MG Tab.CR PO SCH (08:28)
[2018-08-17] MEDS: Apixaban 5 MG Tab PO SCH ×2 (08:28→20:54)
--- NOTE | 2018-08-17 12:16 | PCM.PN ---
- General Info Date of Service: 08/17/18 Admission Dx/Problem (Free Text): Admission Diagnosis/Problem Admission Diagnosis/Problem Chronic pain Subjective Update: Feeling better today, pain he feels is subsiding somewhat. he reports he was up to the bathroom and chair this morning around 0330. No chest pain and no shortness of breath. Functional Status: Reports: Pain Controlled (improving.), Tolerating Diet - Review of Systems General: Reports: No Symptoms. Denies: Fever, Weakness, Fatigue, Malaise HEENT: Reports: No Symptoms. Denies: Headaches, Sore Throat, Visual Changes Pulmonary: Reports: No Symptoms. Denies: Shortness of Breath Cardiovascular: Reports: No Symptoms. Denies: Chest Pain Gastrointestinal: Reports: No Symptoms. Denies: Abdominal Pain, Nausea, Vomiting Genitourinary: Reports: No Symptoms. Denies: Dysuria, Frequency Musculoskeletal: Reports: Other (muscle spasms to back) Skin: Reports: Other (L foot wound, redness to R gonzalez) Neurological: Reports: No Symptoms Psychiatric: Reports: No Symptoms - Patient Data Vitals - Most Recent: Last Vital Signs Temp 98.5 F 08/17/18 07:10 Pulse 104 H 08/17/18 08:24 Resp 16 08/17/18 07:10 BP 115/73 08/17/18 08:24 Pulse Ox 90 L 08/17/18 07:10 Weight - Most Recent: 68.039 kg I&O - Last 24 Hours: Intake & Output 08/16/18 08/17/18 08/17/18 22:59 06:59 14:59 Intake Total 1480 Output Total 300 Balance 1180 Lab Results Last 24 Hours: Laboratory Results - last 24 hr 08/17/18 08/17/18 Range/Units 04:55 04:55 WBC 7.49 (4.0-11.0) K/uL RBC 3.43 L (4.50-5.90) M/uL Hgb 8.8 L (13.0-17.0) g/dL Hct 30.1 L (38.0-50.0) % MCV 87.8 (80.0-98.0) fL MCH 25.7 L (27.0-32.0) pg MCHC 29.2 L (31.0-37.0) g/dL RDW Std Deviation 62.9 H (28.0-62.0) fl RDW Coeff of Tre 19 H (11.0-15.0) % Plt Count 288 (150-400) K/uL MPV 9.90 (7.40-12.00) fL Neut % (Auto) 86.9 H (48.0-80.0) % Lymph % (Auto) 9.5 L (16.0-40.0) % [place] % (Auto) 3.2 (0.0-15.0) % Eos % (Auto) 0.4 (0.0-7.0) % Baso % (Auto) 0.0 (0.0-1.5) % Neut # (Auto) 6.5 H (1.4-5.7) K/uL Lymph # (Auto) 0.7 (0.6-2.4) K/uL [place] # (Auto) 0.2 (0.0-0.8) K/uL Eos # (Auto) 0.0 (0.0-0.7) K/uL Baso # (Auto) 0.0 (0.0-0.1) K/uL Nucleated RBC % 0.0 /100WBC Nucleated RBCs # 0 K/uL Sodium 138 (136-148) mmol/L Potassium 4.8 (3.5-5.1) mmol/L Chloride 103 (98-107) mmol/L Carbon Dioxide 29.7 (21.0-32.0) mmol/L BUN 37 H (7.0-18.0) mg/dL Creatinine 1.2 (0.8-1.3) mg/dL Est Cr Clr Drug Dosing TNP Estimated GFR (MDRD) > 60.0 ml/min Glucose 105 (74-106) mg/dL Calcium 8.6 (8.5-10.1) mg/dL Med Orders - Current: Current Medications Acetaminophen (Tylenol) 650 mg PO Q4H PRN PRN Reason: Pain (mild 1-3) Acidophilus/Pectin (Acidophilus/Pectin, [place]) 1 tab PO BID [facility] Last Admin: 08/17/18 08:23 Dose: 1 tab Apixaban (Eliquis) 5 mg PO BID [facility] Last Admin: 08/17/18 08:28 Dose: 5 mg Bisacodyl (Dulcolax) 5 mg PO DAILY PRN PRN Reason: Constipation Cyclobenzaprine HCl (Flexeril) 10 mg PO TID [facility] Last Admin: 08/17/18 05:09 Dose: Not Given Diazepam (Valium) 2 mg PO TID PRN PRN Reason: muscle spasms Diltiazem HCl (Cardizem Cd) 240 mg PO DAILY [facility] Last Admin: 08/17/18 08:23 Dose: 240 mg Docusate Sodium (Colace) 100 mg PO BID PRN PRN Reason: Constipation Gabapentin (Neurontin) 800 mg PO Q6HR [facility] Last Admin: 08/17/18 05:11 Dose: Not Given Hydromorphone HCl (Dilaudid) 4 mg PO Q4H PRN PRN Reason: Pain Last Admin: 08/17/18 08:40 Dose: 4 mg Metoprolol Tartrate (Lopressor) 50 mg PO BID [facility] Last Admin: 08/17/18 08:24 Dose: 50 mg Midodrine (Midodrine) 2.5 mg PO BID [facility] Last Admin: 08/17/18 08:25 Dose: 2.5 mg Ondansetron HCl (Zofran) 4 mg IVPUSH Q4H PRN PRN Reason: Nausea Pantoprazole Sodium (Protonix) 40 mg PO DAILY [facility] Last Admin: 08/17/18 08:28 Dose: 40 mg Diclofenac Sodium 1 (Applic) 1 each TOP TID [facility] Last Admin: 08/17/18 05:12 Dose: Not Given Prednisone (Prednisone) 20 mg PO DAILY [facility] Last Admin: 08/17/18 08:27 Dose: 20 mg Sodium Chloride (Saline Flush) 2.5 ml FLUSH ASDIRECTED PRN PRN Reason: Keep Vein Open Trimethoprim/Sulfamethoxazole (Septra Ds) 1 tab PO BID [facility] Last Admin: 08/17/18 08:27 Dose: 1 tab Discontinued Medications Hydromorphone HCl (Dilaudid) 1 mg IM ONETIME ONE Stop: 08/14/18 06:59 Last Admin: 08/14/18 07:08 Dose: Not Given Hydromorphone HCl (Dilaudid) 1 mg IM ONETIME ONE Stop: 08/14/18 07:06 Last Admin: 08/14/18 07:06 Dose: 1 mg Hydromorphone HCl (Dilaudid) Confirm Administered Dose 1 mg .ROUTE .STK-MED ONE Stop: 08/14/18 07:05 Last Admin: 08/14/18 07:12 Dose: Not Given Hydromorphone HCl (Dilaudid) 1 mg IVPUSH Q3H PRN PRN Reason: severe pain Last Admin: 08/16/18 08:07 Dose: 1 mg Ketorolac Tromethamine (Toradol) 30 mg IVPUSH Q6H DANIELITO Stop: 08/14/18 19:01 Last Admin: 08/14/18 15:14 Dose: Not Given Lorazepam (Ativan) 0.5 mg PO ONETIME ONE Stop: 08/14/18 07:31 Last Admin: 08/14/18 07:54 Dose: 0.5 mg Diclofenac Sodium 1 (Applic) 1 each TOP TID PRN PRN Reason: Pain - Exam General: Alert, Oriented Lungs: Clear to Auscultation, Normal Respiratory Effort Cardiovascular: Regular Rate, Irregular Rhythm GI/Abdominal Exam: Normal Bowel Sounds, Soft, Non-Tender Back Exam: Normal Inspection, Full Range of Motion (spasms noted in back. no spinal tenderness) Extremities: Normal Inspection, Normal Range of Motion, Non-Tender Neurological: No New Focal Deficit Psy/Mental Status: Alert, Normal Affect, Normal Mood - Problem List & Annotations (1) Intractable pain SNOMED Code(s): 50524008 Code(s): R52 - PAIN, UNSPECIFIED Status: Acute Current Visit: Yes (2) Cellulitis SNOMED Code(s): 812183766 Code(s): L03.90 - CELLULITIS, UNSPECIFIED Status: Acute Current Visit: No (3) Chronic pain SNOMED Code(s): 75240012 Code(s): G89.29 - OTHER CHRONIC PAIN Status: Chronic Current Visit: Yes Qualifiers: Chronic pain type: other chronic pain Qualified Code(s): G89.29 - Other chronic pain (4) Immunocompromised due to corticosteroids SNOMED Code(s): 131568408 Code(s): D84.8 - OTHER SPECIFIED IMMUNODEFICIENCIES; T38.0X5A - ADVERSE EFFECT OF GLUCOCORT/SYNTH ANALOG, INIT Status: Chronic Current Visit: No (5) Afib SNOMED Code(s): 03773891 Code(s): I48.91 - UNSPECIFIED ATRIAL FIBRILLATION Status: Chronic Priority: High Current Visit: No Qualifiers: Atrial fibrillation type: persistent Qualified Code(s): I48.1 - Persistent atrial fibrillation (6) Aspergillosis SNOMED Code(s): 88100317 Code(s): B44.9 - ASPERGILLOSIS, UNSPECIFIED Status: Chronic Priority: Medium Current Visit: No (7) Cardiomyopathy SNOMED Code(s): 38986890 Code(s): I42.9 - CARDIOMYOPATHY, UNSPECIFIED Status: Chronic Priority: High Current Visit: No Qualifiers: Cardiomyopathy type: unspecified Qualified Code(s): I42.9 - Cardiomyopathy , unspecified (8) History of Clostridium difficile infection SNOMED Code(s): 786685680, 581257318 Code(s): Z86.19 - PERSONAL HISTORY OF OTHER INFECTIOUS AND PARASITIC DISEASES Status: Chronic Priority: Medium Current Visit: No (9) Steroid-induced osteoporosis SNOMED Code(s): 419814112 Code(s): T38.0X1A - POISONING BY GLUCOCORT/SYNTH ANALOG, ACCIDENTAL, INIT; M81.8 - OTHER OSTEOPOROSIS WITHOUT CURRENT PATHOLOGICAL FRACTURE Status: Chronic Priority: High Current Visit: No (10) Osteoarthritis SNOMED Code(s): 191016965 Code(s): M19.90 - UNSPECIFIED OSTEOARTHRITIS, UNSPECIFIED SITE Status: Chronic Current Visit: Yes Qualifiers: Osteoarthritis location: unspecified site - Problem List Review Problem List Initiated/Reviewed/Updated: Yes - My Orders Last 24 Hours: My Active Orders 08/16/18 14:00 Patient's Own Medication [Ptom] 1 each TOP TID 08/18/18 05:11 BMP [BASIC METABOLIC PANEL,BMP] [CHEM] AM CBC WITH AUTO DIFF [HEME] AM - Plan Plan:: This 58 year old male admitted with intractable low back pain 1. Intractable acute on chronic low back pain: Encouraged to use Dilaudid 4 mg PO Q4 hr PRN Pain Not IV Dilaudid. Will DC IV pain medication for now. IContinue Flexeril 10 mg PO TID for muscle spasms. Heat and ICE to back PRN I spoke with pain Doctor yesterday, Dr Fisher. He was given prescription for Morphine IR 15 mg every 6 hours pain n 07/18/18. This was filled by nephew/son Que at [facility] 07/21 around 1700 in the evening. With known history of being admitted in our hospital and transferred to [place] on this days (07/02-07/13 , 07/17-07/28, 08/04-08/05 and 08/14 to present) knowing this significant time frame he was admitted, he should have approximately 96 tablets of morphine available to take. He reports he ran out. This morning I confronted Juanpablo regarding this and he admitted to taking more pills than prescribed at once, he reports typically taking 30 mg to 45 mg every 6 hours. He reports he go home from first admission (07/02-07/13) and had significant pain increase. He denied contacting Dr Fisher to speak to him about this, then started increasing is Morphine without guidance from a provider. He reports he has told Dr Fisher in the past that the dose was not working and was given no other recommendations besides stopping it. He also filled a dilaudid prescription given to him by another provider, see Narc Report. He reports he was never told he couldn't fill pain prescriptions from providers, yet confirms he signed a pain contract with Dr Fisher. We will keep him at this time on Dilaudid 4 mg with flexeril. Hope for discharge in the morning, I will give some pain medications to get him to his PCP appointment with Dr Melchor, otherwise he was directed to call dr Fisher and discuss with him the next steps. 2. Cellulitis: Improvement. Continue Bactrim DS BID now. no fevers or leukocytosis. Monitor. 3. Persistent Afib: Stable. Continue Metoprolol and Diltiazem. Continue Anticoagulation with Eliquis. 4. Broncho-pulmonary aspergillosis: Continue Prednisone 5. L foot wound: Continue home dressing changes. Change today, as it has not been changed in 2 days. VTE prophylaxis: Eliquis Dispo: 1-2 days pending improvement,
[2018-08-18] MEDS: HYDROmorphone 2 MG Tab PO PRN ×4 (03:57→16:54)
[2018-08-18] MEDS: Diclofenac Sodium 1 APPLIC TOP SCH ×2 (06:24→13:07)
[2018-08-18] MEDS: Gabapentin 800 MG Tab PO SCH ×3 (06:24→17:47)
[2018-08-18] MEDS: Cyclobenzaprine 10 MG Tab PO SCH ×2 (06:24→13:06)
[2018-08-18 06:49] LABS: CHLORIDE,CL 102 mmol/L (98-107); SODIUM,NA 137 mmol/L (136-148)
[2018-08-18] MEDS: Diltiazem 120 MG Cap.CD PO SCH (08:55)
[2018-08-18] MEDS: Acidophilus with Citrus Pectin Tab PO SCH (08:59)
[2018-08-18] MEDS: Midodrine 5 MG Tab PO SCH (08:59)
[2018-08-18] MEDS: Sulfamethoxazole/Trimethoprim 800-160 MG Tab PO SCH (09:00)
[2018-08-18] MEDS: predniSONE 20 MG Tab PO SCH (09:00)
[2018-08-18] MEDS: Metoprolol Tartrate 50 MG Tab PO SCH (09:01)
[2018-08-18] MEDS: Apixaban 5 MG Tab PO SCH (09:01)
[2018-08-18] MEDS: Pantoprazole 40 MG Tab.CR PO SCH (09:01)
--- NOTE | 2018-08-18 11:20 | PCM.DCSUM1 ---
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 coli bacteremia with L foot ulcer and C. diff colitis and chronic pain secondary to osteoarthiritis. He was recently discharged from [facility], where he was transferred to from here for E coli bacteremia. There he saw ID and podiatry regard L foot wound which was had I&D performed. He continues to have L foot wound with packing, in which he has instructions to change daily until healed. He reports in [place], he was having a lot of chronic pain issues. They discharged him on Robaxin for muscle spasms. He previously has been treated with a wide variety of narcotics, including Tramadol, Morphine IR and Dilaudid. He reports the last few days he has had increasing back pain and spasms as well as chronic joint pain increasing. He denies fevers chills, URI symptoms or cough. No chest pain or SOB. No red warm or swollen joints. He reports his L foot wound has been looking good, but he has not changed the dressing in two days because his pain has been so bad. He reported the Morphine is not helping the pain and he no longer has pain medication prescriptions. He reports he was to see PCP this morning, Dr Melchor, as well as pain specialist in [place], [place] today. He canceled both due to needing to visit ED. Back pain is located across the lumbar spine, no urinary or bowel incontinence. It is very similar to his chronic pain, just not controlled well. He reports no diarrhea, but more loose stools. Not black or bloody. In the ED, labwork WNL. He was given Dilaudid IV and Ativan which helped with pain. He and son decline discharged and wanted to be admitted secondary to intractable pain. Diagnosis: Stroke: No - Discharge Data Discharge Date: 08/18/18 Discharge Disposition: Home, W Home Health Agency Condition: Stable - Discharge Diagnosis/Problem(s) (1) Intractable pain SNOMED Code(s): 10550820 ICD Code: R52 - PAIN, UNSPECIFIED Status: Acute Current Visit: Yes (2) Cellulitis SNOMED Code(s): 870179948 ICD Code: L03.90 - CELLULITIS, UNSPECIFIED Status: Acute Current Visit: No (3) Chronic pain SNOMED Code(s): 78627608 ICD Code: G89.29 - OTHER CHRONIC PAIN Status: Chronic Current Visit: Yes Qualifiers: Chronic pain type: other chronic pain Qualified Code(s): G89.29 - Other chronic pain (4) Immunocompromised due to corticosteroids SNOMED Code(s): 768856587 ICD Code: D84.8 - OTHER SPECIFIED IMMUNODEFICIENCIES; T38.0X5A - ADVERSE EFFECT OF GLUCOCORT/SYNTH ANALOG, INIT Status: Chronic Current Visit: No (5) Afib SNOMED Code(s): 23715603 ICD Code: I48.91 - UNSPECIFIED ATRIAL FIBRILLATION Status: Chronic Priority: High Current Visit: No Qualifiers: Atrial fibrillation type: persistent Qualified Code(s): I48.1 - Persistent atrial fibrillation (6) Aspergillosis SNOMED Code(s): 68579170 ICD Code: B44.9 - ASPERGILLOSIS, UNSPECIFIED Status: Chronic Priority: Medium Current Visit: No (7) Cardiomyopathy SNOMED Code(s): 12245588 ICD Code: I42.9 - CARDIOMYOPATHY, UNSPECIFIED Status: Chronic Priority: High Current Visit: No Qualifiers: Cardiomyopathy type: unspecified Qualified Code(s): I42.9 - Cardiomyopathy , unspecified (8) History of Clostridium difficile infection SNOMED Code(s): 585402705, 229108987 ICD Code: Z86.19 - PERSONAL HISTORY OF OTHER INFECTIOUS AND PARASITIC DISEASES Status: Chronic Priority: Medium Current Visit: No (9) Steroid-induced osteoporosis SNOMED Code(s): 480763100 ICD Code: T38.0X1A - POISONING BY GLUCOCORT/SYNTH ANALOG, ACCIDENTAL, INIT; M81.8 - OTHER OSTEOPOROSIS WITHOUT CURRENT PATHOLOGICAL FRACTURE Status: Chronic Priority: High Current Visit: No (10) Osteoarthritis SNOMED Code(s): 340518323 ICD Code: M19.90 - UNSPECIFIED OSTEOARTHRITIS, UNSPECIFIED SITE Status: Chronic Current Visit: Yes Qualifiers: Osteoarthritis location: unspecified site - Patient Summary/Data Consults: Consultations 08/14/18 12:07 OT Evaluation and Treatment [CONS] Routine PT Evaluation and Treatment [CONS] Routine 08/17/18 13:28 Consult to Physical Therapy [PT Evaluation and Treatment] [CONS] Urgent - Patient Instructions Diet: Regular Diet as Tolerated Activity: As Tolerated Driving: Do Not Drive Showering/Bathing: May Shower Notify Provider of: Fever, Increased Pain, Swelling and Redness, Drainage, Nausea and/or Vomiting - Discharge Plan *PRESCRIPTION DRUG MONITORING PROGRAM REVIEWED*: Yes *COPY OF PRESCRIPTION DRUG MONITORING REPORT IN PATIENT KECIA: Yes Prescriptions/Med Rec: Cyclobenzaprine [Flexeril] 10 mg PO TID #17 tablet Doxycycline [Vibramycin] 100 mg PO BID #9 cap HYDROmorphone [Dilaudid] 4 mg PO Q4H PRN #30 tablet PRN Reason: Pain Home Medications: Home Meds Pantoprazole [ProTONIX] 40 mg PO DAILY 05/19/18 [History] Apixaban [Eliquis] 5 mg PO BID tablet 07/21/18 [Rx] Diltiazem [Cardizem CD] 240 mg PO DAILY cap.cd 07/21/18 [Rx] Metoprolol Tartrate [Lopressor] 50 mg PO BID tablet 07/21/18 [Rx] Midodrine 2.5 mg PO BID tablet 07/21/18 [Rx] predniSONE 20 mg PO DAILY tablet 07/21/18 [Rx] Gabapentin [Neurontin] 800 mg PO Q6HR 08/05/18 [History] Diclofenac Sodium [Voltaren 1% Gel] 1 applic TOP TID PRN 08/15/18 [History] Cyclobenzaprine [Flexeril] 10 mg PO TID #17 tablet 08/18/18 [Rx] Doxycycline [Vibramycin] 100 mg PO BID #9 cap 08/18/18 [Rx] HYDROmorphone [Dilaudid] 4 mg PO Q4H PRN #30 tablet 08/18/18 [Rx] Patient Handouts: Cyclobenzaprine tablets, Doxycycline tablets or capsules, Chronic Pain, Adult, Hydromorphone tablets Referrals: [facility] [Outside] Que Fisher MD [Ordering Only Provider] - 08/17/18 2:30 pm ([facility] Address: [address] [place] [address] Phone: ) Connor Melchor MD [Ordering Only Provider] - 08/23/18 2:00 pm - Discharge Summary/Plan Comment DC Time >30 min.: No Discharge Summary/Plan Comment: Discharge Diagnoses: Acute exacerbation of chronic low back pain R lower leg cellulitis Non-compliance with pain medication and pain contract Juanpablo was admitted secondary to intractable back pain which was acute exacerbated. He has long history of chronic back pain from compression fractures. He initially reported his Morphine was not working and that he ran out. After further investigation, knowing he has been admitted much of June and into July, it was suspicious that he ran out of Morphine tablets. I spoke with Dr. Fisher, pain specialist, he stated Juanpablo was given prescription for Morphine IR 15 mg every 6 hours pain on 07/18/18. This was filled by nephew/son Que at [facility] 07/21 around 1700 in the evening. He had been admitted -07/13, 07/17-07/28, 08/04-08/05 and 08/14 to present, leaving him with approximately 96 tablets of morphine available to take. He was confronted regarding this and he admitted to taking more pills than prescribed at once. He reported taking 30 mg to 45 mg every 6 hours. He stated when he went home from first admission (07/02-07/13) he had significant pain increase. He denied contacting Dr. Fisher to speak to him about this, then started increasing is Morphine without guidance from a provider. He reports he has told Dr Fisher in the past that the dose was not working and was given no other recommendations besides stopping it. After transfer and admission in [place] he was given a Dilaudid prescription given to him by another provider, see Narc Report. He reports he was never told he couldn't fill pain prescriptions from providers, yet confirms he signed a pain contract with Dr Fisher. In speak with dr Fisher , he is unsure if he will keep Juanpablo as a patient. Juanpablo was told he needs to contact Dr Fisher regarding further care, which he has yet to do. I spoke with PCP today regarding admission and narcotic issues. He verbalized he had sent him to a pain speciliast because he was not going to be involved in intermediate need of narcotics. I will discharge Juanpablo today, with Flexeril 10 mg TID #15 tabs no refills and Dilaudid 4 mg PO every 4 hours PRN pain #30 tabs no refills. This is enough pain medication to get him to his appointment with Dr Melchor on 08/23. He will be discharged home with Home Health, he is in need of skilled care to monitor medication as well as help with ADLs at home. He also has wound to L foot, which needs daily dressing changes and monitoring for improvement. He would also benefit from PT/OT to help with ADLS and back pain along with strengthening at home. He is homebound, unable to leave unless his family brings him anyway and he needs assistive devices. His PCP, Dr Melchor will follow through with Home Health plan of care upon discharge. Regarding R lower leg cellulitis, he was started on Bactrim, slightly elevation in potassium 5.4 and BUN Cr today were noted. But overall he is improving. Bactrim will be stopped and he will be placed on Doxycycline 100 mg BID. He has been afebrile and no leukocytosis noted. He is to return to ED or clinic if concerns should arise. He was explicitly told he should not seek for narcotic beyond his pain doctor and needs to touch base with him for further medications. - General Info Date of Service: 08/18/18 Admission Dx/Problem (Free Text: Admission Diagnosis/Problem Admission Diagnosis/Problem Chronic pain Subjective Update: Reports he is doing ok this morning, he was up ambulating with PT in hallway, reports spasms start afterwards, but was sitting up in the chair. No chest pain or SOB. - Review of Systems General: Reports: No Symptoms. Denies: Fever, Weakness, Fatigue HEENT: Reports: No Symptoms. Denies: Headaches, Sore Throat, Visual Changes Pulmonary: Denies: Shortness of Breath, Cough, Sputum Cardiovascular: Denies: Chest Pain, Edema Gastrointestinal: Reports: No Symptoms. Denies: Abdominal Pain, Nausea, Vomiting Genitourinary: Reports: No Symptoms Musculoskeletal: Reports: Back Pain (intermittent spasms to low back, currently is it ok.) Skin: Reports: No Symptoms Neurological: Reports: No Symptoms Psychiatric: Reports: No Symptoms - Patient Data Vitals - Most Recent: Last Vital Signs Temp 97.5 F 08/18/18 07:54 Pulse 102 H 08/18/18 09:01 Resp 16 08/18/18 07:54 BP 114/70 08/18/18 09:01 Pulse Ox 90 L 08/18/18 07:54 Weight - Most Recent: 68.039 kg I&O - Last 24 hours: Intake & Output 08/17/18 08/18/18 08/18/18 22:59 06:59 14:59 Intake Total 1160 1150 Output Total 550 Balance 1160 600 Lab Results - Last 24 hrs: Laboratory Results - last 24 hr 08/18/18 08/18/18 Range/Units 05:20 05:20 WBC 7.08 (4.0-11.0) K/uL RBC 3.11 L (4.50-5.90) M/uL Hgb 8.0 L (13.0-17.0) g/dL Hct 27.2 L (38.0-50.0) % MCV 87.5 (80.0-98.0) fL MCH 25.7 L (27.0-32.0) pg MCHC 29.4 L (31.0-37.0) g/dL RDW Std Deviation 62.5 H (28.0-62.0) fl RDW Coeff of Tre 19 H (11.0-15.0) % Plt Count 275 (150-400) K/uL MPV 10.10 (7.40-12.00) fL Neut % (Auto) 80.9 H (48.0-80.0) % Lymph % (Auto) 13.6 L (16.0-40.0) % [place] % (Auto) 5.1 (0.0-15.0) % Eos % (Auto) 0.4 (0.0-7.0) % Baso % (Auto) 0.0 (0.0-1.5) % Neut # (Auto) 5.7 (1.4-5.7) K/uL Lymph # (Auto) 1.0 (0.6-2.4) K/uL [place] # (Auto) 0.4 (0.0-0.8) K/uL Eos # (Auto) 0.0 (0.0-0.7) K/uL Baso # (Auto) 0.0 (0.0-0.1) K/uL Nucleated RBC % 0.0 /100WBC Nucleated RBCs # 0 K/uL Sodium 137 (136-148) mmol/L Potassium 5.4 H (3.5-5.1) mmol/L Chloride 102 (98-107) mmol/L Carbon Dioxide 28.6 (21.0-32.0) mmol/L BUN 41 H (7.0-18.0) mg/dL Creatinine 1.4 H (0.8-1.3) mg/dL Est Cr Clr Drug Dosing TNP Estimated GFR (MDRD) 52.1 ml/min Glucose 91 (74-106) mg/dL Calcium 8.6 (8.5-10.1) mg/dL Med Orders - Current: Current Medications Acetaminophen (Tylenol) 650 mg PO Q4H PRN PRN Reason: Pain (mild 1-3) Acidophilus/Pectin (Acidophilus/Pectin, [place]) 1 tab PO BID [facility] Last Admin: 08/18/18 08:59 Dose: 1 tab Apixaban (Eliquis) 5 mg PO BID [facility] Last Admin: 08/18/18 09:01 Dose: 5 mg Bisacodyl (Dulcolax) 5 mg PO DAILY PRN PRN Reason: Constipation Cyclobenzaprine HCl (Flexeril) 10 mg PO TID [facility] Last Admin: 08/18/18 06:24 Dose: 10 mg Diazepam (Valium) 2 mg PO TID PRN PRN Reason: muscle spasms Diltiazem HCl (Cardizem Cd) 240 mg PO DAILY [facility] Last Admin: 08/18/18 08:55 Dose: 240 mg Docusate Sodium (Colace) 100 mg PO BID PRN PRN Reason: Constipation Gabapentin (Neurontin) 800 mg PO Q6HR [facility] Last Admin: 08/18/18 06:24 Dose: 800 mg Hydromorphone HCl (Dilaudid) 4 mg PO Q4H PRN PRN Reason: Pain Last Admin: 08/18/18 08:57 Dose: 4 mg Metoprolol Tartrate (Lopressor) 50 mg PO BID [facility] Last Admin: 08/18/18 09:01 Dose: 50 mg Midodrine (Midodrine) 2.5 mg PO BID [facility] Last Admin: 08/18/18 08:59 Dose: 2.5 mg Ondansetron HCl (Zofran) 4 mg IVPUSH Q4H PRN PRN Reason: Nausea Pantoprazole Sodium (Protonix) 40 mg PO DAILY [facility] Last Admin: 08/18/18 09:01 Dose: 40 mg Diclofenac Sodium 1 (Applic) 1 each TOP TID [facility] Last Admin: 08/18/18 06:24 Dose: 1 each Prednisone (Prednisone) 20 mg PO DAILY [facility] Last Admin: 08/18/18 09:00 Dose: 20 mg Sodium Chloride (Saline Flush) 2.5 ml FLUSH ASDIRECTED PRN PRN Reason: Keep Vein Open Trimethoprim/Sulfamethoxazole (Septra Ds) 1 tab PO BID [facility] Last Admin: 08/18/18 09:00 Dose: 1 tab Discontinued Medications Hydromorphone HCl (Dilaudid) 1 mg IM ONETIME ONE Stop: 08/14/18 06:59 Last Admin: 08/14/18 07:08 Dose: Not Given Hydromorphone HCl (Dilaudid) 1 mg IM ONETIME ONE Stop: 08/14/18 07:06 Last Admin: 08/14/18 07:06 Dose: 1 mg Hydromorphone HCl (Dilaudid) Confirm Administered Dose 1 mg .ROUTE .STK-MED ONE Stop: 08/14/18 07:05 Last Admin: 08/14/18 07:12 Dose: Not Given Hydromorphone HCl (Dilaudid) 1 mg IVPUSH Q3H PRN PRN Reason: severe pain Last Admin: 08/16/18 08:07 Dose: 1 mg Ketorolac Tromethamine (Toradol) 30 mg IVPUSH Q6H [facility] Stop: 08/14/18 19:01 Last Admin: 08/14/18 15:14 Dose: Not Given Lorazepam (Ativan) 0.5 mg PO ONETIME ONE Stop: 08/14/18 07:31 Last Admin: 08/14/18 07:54 Dose: 0.5 mg Diclofenac Sodium 1 (Applic) 1 each TOP TID PRN PRN Reason: Pain - Exam General: Reports: Alert, Oriented, Cooperative, No Acute Distress Lungs: Reports: Clear to Auscultation, Normal Respiratory Effort Cardiovascular: Reports: Regular Rate, Irregular Rhythm GI/Abdominal Exam: Normal Bowel Sounds, Soft, Non-Tender, No Organomegaly Back Exam: Reports: Normal Inspection, Full Range of Motion (but with pain and back spasms) Skin: Reports: Warm, Dry Wound/Incisions: Reports: Dressing Dry and Intact (to L foot, packing in place, no erythema around wound. ), Erythema Improving (R lower leg,) Neurological: Reports: No New Focal Deficit Psy/Mental Status: Reports: Alert, Normal Mood
[2018-08-18 17:05] VITALS: BP 95/67
== END 2018-08-18 18:09 | disposition home health service (06) | DRG 552 ==
LOC: MW.ED 06:53 → MW.MS 10:55 → OBSVTOIN 08-16 10:33 → MW.MS 08-16 10:34
PROVIDERS: ADMIT Internal Medicine; ATTEND Internal Medicine
DX: M54.5 Low back pain (principal); L03.115 Cellulitis of right lower limb; D84.8 Other specified immunodeficiencies; B44.9 Aspergillosis, unspecified; I42.9 Cardiomyopathy, unspecified; I48.1 Persistent atrial fibrillation; G89.29 Other chronic pain; M81.8 Other osteoporosis without current pathological fracture; T38.0X5A Adverse effect of glucocorticoids and synthetic analogues, initial encounter; M19.91 Primary osteoarthritis, unspecified site; I11.0 Hypertensive heart disease with heart failure; I50.9 Heart failure, unspecified; K21.9 Gastro-esophageal reflux disease without esophagitis; M10.9 Gout, unspecified; M06.9 Rheumatoid arthritis, unspecified; F41.9 Anxiety disorder, unspecified; F32.9 Major depressive disorder, single episode, unspecified; Z88.1 Allergy status to other antibiotic agents; Z88.8 Allergy status to other drugs, medicaments and biological substances; Z98.49 Cataract extraction status, unspecified eye; I25.2 Old myocardial infarction; Z86.711 Personal history of pulmonary embolism; Z87.442 Personal history of urinary calculi; Z87.440 Personal history of urinary (tract) infections; Z86.73 Personal history of transient ischemic attack (TIA), and cerebral infarction without residual deficits
CPT/HCPCS: 36415; 80048; 80053; 85025; 96372; 96374; 96376; 97110-GP; 97162-GP; 97164-GP; 99284; A9270-GY; G0378; J1170

== ENCOUNTER 2018-08-26 11:34 | Observation (INO) | payer MEDICARE, OTHER ==
--- NOTE | 2018-08-26 12:18 | EDM.PDOC ---
ED HPI GENERAL MEDICAL PROBLEM - General Stated Complaint: DIZZY Time Seen by Provider: 08/26/18 12:06 Source of Information: Reports: Patient History Limitations: Reports: No Limitations - History of Present Illness INITIAL COMMENTS - FREE TEXT/NARRATIVE: HISTORY AND PHYSICAL: History of present illness: Patient is a 58-year-old male presents to the ED today with concern for high potassium. Patient states he had an outpatient visit this week. Patient states he received a call several days ago that his potassium was high and that he needed to come to the ED. Patient presents to the ED today and does not express any concerns other than his potassium or symptoms today. Patient has been admitted to our hospital on several separate occasions within the past few months due to pain control, hypoxia, pneumonia being several of the reasons. Patient denies fever, chills, chest pain, shortness of breath, or cough. Denies headache, neck stiff ness, change in vision, syncope, or near syncope. Denies nausea, vomiting, abdominal pain, diarrhea, constipation, or dysuria. Has not noted any blood in urine or stool. Patient has been eating and drinking appropriately. Patient has a history of chronic kidney disease s/p nephrectomy, hyperkalemia, atrial fibrillation on anticoagulation, osteoporosis, aspergillosis on chronic prednisone (immunocompromised), DVT/PE, history of multiple skin infections, history of C. difficile. Review of systems: As per history of present illness and below otherwise all systems reviewed and negative. Past medical history: As per history of present illness and as reviewed below otherwise noncontributory. Surgical history: As per history of present illness and as reviewed below otherwise noncontributory. Social history: See social history for further information Family history: As per history of present illness and as reviewed below otherwise noncontributory. Physical exam: General: Patient is alert, oriented, and in no acute distress. Patient sitting comfortably on exam table. Patient is chronically ill appearing. HEENT: Atraumatic, normocephalic, pupils equal and reactive bilaterally, negative for conjunctival pallor or scleral icterus, mucous membranes moist, TMs normal bilaterally, throat clear, neck supple, nontender, trachea midline. No drooling or trismus noted. No meningeal signs. No hot potato voice noted. Lungs: Mild wheezing to auscultation of lung bases, breath sounds equal bilaterally, chest nontender. Heart: S1S2, regular rate and rhythm Abdomen: Soft, nondistended, nontender. Negative for masses or hepatosplenomegaly. Negative for costovertebral tenderness. Pelvis: Stable nontender. Genitourinary: Deferred. Rectal: Deferred. Skin: Intact, warm, dry. No lesions or rashes noted. Extremities: Atraumatic, negative for cords or calf pain.. Neuro: Awake, alert, oriented. Cranial nerves II through XII unremarkable. Exam nonfocal. Notes: Patient does not express any symptoms today. Will do labs and EKG. Patient does have a significantly elevated potassium today. Patient has received Lasix, insulin, and calcium gluconate today in the ER. Dr. Bo was contacted on patient and will admit to observation. Diagnostics: BNP, EKG, CBC Therapeutics: Lasix, Insulin, Calcium gluconate Impression: Hyperkalemia Plan: 1. Admit to observation to Dr. Bo. Definitive disposition and diagnosis as appropriate pending reevaluation and review of above. Generalized Pain Score (Numeric/FACES): 7 - Related Data Allergies Allergy/AdvReac Type Severity Reaction Status Date / Time itraconazole [From Sporanox] Allergy Unknown Confusion Verified 08/26/18 12:23 levofloxacin [From Levaquin] Allergy Unknown Other Verified 08/26/18 12:23 Home Meds: Home Meds Pantoprazole [ProTONIX] 40 mg PO DAILY 05/19/18 [History] Apixaban [Eliquis] 5 mg PO BID tablet 07/21/18 [Rx] Diltiazem [Cardizem CD] 240 mg PO DAILY cap.cd 07/21/18 [Rx] Metoprolol Tartrate [Lopressor] 50 mg PO BID tablet 07/21/18 [Rx] Midodrine 2.5 mg PO BID tablet 07/21/18 [Rx] predniSONE 20 mg PO DAILY tablet 07/21/18 [Rx] Gabapentin [Neurontin] 800 mg PO Q6HR 08/05/18 [History] Diclofenac Sodium [Voltaren 1% Gel] 1 applic TOP TID PRN 08/15/18 [History] Cyclobenzaprine [Flexeril] 10 mg PO TID #17 tablet 08/18/18 [Rx] Doxycycline [Vibramycin] 100 mg PO BID #9 cap 08/18/18 [Rx] HYDROmorphone [Dilaudid] 4 mg PO Q4H PRN #30 tablet 08/18/18 [Rx] Past Medical History HEENT History: Reports: Cataract Other HEENT History: dental fillings due to caries; recent tooth fracture Cardiovascular History: Reports: Afib, Cardiomyopathy, Heart Failure, Hypertension, ID Respiratory History: Reports: Asthma, Bronchitis, Recurrent, PE, Pneumonia, Recurrent, Other (See Below) Other Respiratory History: Chronic pulmonary aspergillosis, 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 No explantation- -they apparently just treated him with IV abx for months. - Past Surgical History Head Surgeries/Procedures: Reports: None HEENT Surgical History: Reports: Cataract Surgery Cardiovascular Surgical History: Reports: None Respiratory Surgical History: Reports: Lung Resection Other Respiratory Surgeries/Procedures: intubated last Feb 2018 and transfered to [facility] Surgical History: Reports: None Male Surgical History: Reports: None Endocrine Surgical History: Reports: None Neurological Surgical History: Reports: None Musculoskeletal Surgical History: Reports: Shoulder Surgery, Other (See Below) Other Musculoskeletal Surgeries/Procedures:: L shoulder and left hip surgery Oncologic Surgical History: Reports: None Dermatological Surgical History: Reports: None Social & Family History - Family History Family Medical History: Noncontributory - Caffeine Use Caffeine Use: Reports: None - Living Situation & Occupation Living situation: Reports: Single, with Family (sons) Occupation: Disabled ED [employer] - Review of Systems Review Of Systems: ROS reveals no pertinent complaints other than HPI. ED EXAM, GENERAL - Physical Exam Exam: See Below (see dictation) Course - Vital Signs Last Recorded V/S: Last Vital Signs Temp 36.6 C 08/26/18 12:22 Pulse 91 08/26/18 15:06 Resp 18 08/26/18 15:06 BP 106/68 08/26/18 15:06 Pulse Ox 95 08/26/18 15:06 - Orders/Labs/Meds Orders: Active Orders 24 hr Category Date Time Status Admission Status [Patient Status] [ADT] Stat ADT 08/26/18 15:39 Ordered EKG Documentation Completion [RC] STAT Care 08/26/18 12:45 Active Labs: Laboratory Tests 08/26/18 08/26/18 Range/Units 13:20 13:20 WBC 12.70 H (4.0-11.0) K/uL RBC 3.85 L (4.50-5.90) M/uL Hgb 9.6 L (13.0-17.0) g/dL Hct 33.7 L (38.0-50.0) % MCV 87.5 (80.0-98.0) fL MCH 24.9 L (27.0-32.0) pg MCHC 28.5 L (31.0-37.0) g/dL RDW Std Deviation 61.7 (28.0-62.0) fl RDW Coeff of Tre 19 H (11.0-15.0) % Plt Count 370 (150-400) K/uL MPV 9.60 (7.40-12.00) fL Add Manual Diff YES Neutrophils % (Manual) 70 (48.0-80.0) % Band Neutrophils % 19 % Lymphocytes % (Manual) 7 L (16.0-40.0) % Monocytes % (Manual) 4 (0.0-15.0) % Nucleated RBC % 0.0 /100WBC Absolute Seg Neuts 8.9 H (1.4-5.7) Band Neutrophils # 2.4 Lymphocytes # (Manual) 0.9 (0.6-2.4) Monocytes # (Manual) 0.5 (0.0-0.8) Nucleated RBCs # 0 K/uL Sodium 135 L (136-148) mmol/L Potassium 6.2 H (3.5-5.1) mmol/L Chloride 98 (98-107) mmol/L Carbon Dioxide 32.4 H (21.0-32.0) mmol/L BUN 38 H (7.0-18.0) mg/dL Creatinine 1.4 H (0.8-1.3) mg/dL Est Cr Clr Drug Dosing 53.77 mL/min Estimated GFR (MDRD) 52.1 ml/min Glucose 160 H (74-106) mg/dL Calcium 9.0 (8.5-10.1) mg/dL Meds: Medications Discontinued Medications Generic Name Dose Route Start Last Admin Trade Name Freq PRN Reason Stop Dose Admin Calcium Gluconate 1 gm 08/26/18 14:24 08/26/18 15:14 Calcium Gluconate IVPUSH 08/26/18 14:25 1 gm ONETIME ONE Administration Furosemide 10 mg 08/26/18 14:23 08/26/18 15:11 Lasix IVPUSH 08/26/18 14:24 10 mg NOW ONE Administration Insulin Human Regular 5 unit 08/26/18 14:24 08/26/18 15:07 Novolin R SUBCUT 08/26/18 14:25 5 units NOW STA Administration Protocol Departure - Departure Time of Disposition: 15:52 Disposition: Refer to Observation Clinical Impression: Hyperkalemia - Discharge Information Referrals: Connor Melchor MD [Primary Care Provider] - - My Orders Last 24 Hours: My Active Orders 08/26/18 12:45 EKG Documentation Completion [RC] STAT 08/26/18 15:39 Admission Status [Patient Status] [ADT] Stat - Assessment/Plan Last 24 Hours: My Active Orders 08/26/18 12:45 EKG Documentation Completion [RC] STAT 08/26/18 15:39 Admission Status [Patient Status] [ADT] Stat
[2018-08-26] MEDS ORDERED: Furosemide 40 MG/4 ML VIAL IVPUSH ONE (14:23)
[2018-08-26] MEDS ORDERED: Insulin Regular, Human 100 Units/ML 10 ML Vial SUBCUT STA (14:24)
[2018-08-26] MEDS ORDERED: Calcium Gluconate 10% 1 GM/10 ML SDV IVPUSH ONE (14:24)
[2018-08-26] MEDS ORDERED: Non-Formulary Medication 1 Each (Diclofenac Sodium 1 APPLIC) TOP PRN (15:52)
[2018-08-26] MEDS ORDERED: HYDROMORPHONE 4 MG PO PRN (15:52)
--- NOTE | 2018-08-26 16:17 | PCM.HP ---
H&P History of Present Illness - General Date of Service: 08/26/18 Admit Problem/Dx: Admission Diagnosis/Problem Admission Diagnosis/Problem Hyperkalemia Source of Information: Patient History Limitations: Reports: No Limitations - History of Present Illness Initial Comments - Free Text/Narative: The patient is medically complex 58-year-old gentleman who had presented to the emergency department with complaints of fatigue and weakness. The patient was also concerned about his potassium being high. The patient was noted to have a potassium of 6.2 mmol per liter along with EKG changes. These included peaked T waves. The patient had been given insulin and dextrose in the emergency department to help potassium to move intracellularly.Apparently the patient did have an appointment as an outpatient earlier this week and told he needed to come to the emergency department for treatment of his high potassium. The patient does have a history of multiple medical problems to include chronic kidney disease, Hyperkalemia, atrial fibrillation, osteoporosis, aspergillosis on chronic prednisone therapy, DVTs and PEs as well as multiple skin infection. Onset of Symptoms: Reports: Unknown/Unsure Duration of Symptoms: Reports: Chronic Location: Reports: Generalized Quality: Reports: Stabbing, Throbbing Improves with: Reports: Medication Worsens with: Reports: Movement Associated Symptoms: Reports: No Other Symptoms Generalized Pain Score (Numeric/FACES): 7 - Related Data Allergies/Adverse Reactions: Allergies Allergy/AdvReac Type Severity Reaction Status Date / Time itraconazole [From Sporanox] Allergy Unknown Confusion Verified 08/26/18 12:23 levofloxacin [From Levaquin] Allergy Unknown Other Verified 08/26/18 12:23 Home Medications: Home Meds Pantoprazole [ProTONIX] 40 mg PO DAILY 05/19/18 [History] Apixaban [Eliquis] 5 mg PO BID tablet 07/21/18 [Rx] Diltiazem [Cardizem CD] 240 mg PO DAILY cap.cd 07/21/18 [Rx] Metoprolol Tartrate [Lopressor] 50 mg PO BID tablet 07/21/18 [Rx] predniSONE 20 mg PO DAILY tablet 07/21/18 [Rx] Gabapentin [Neurontin] 800 mg PO Q6HR 08/05/18 [History] Diclofenac Sodium [Voltaren 1% Gel] 1 applic TOP TID PRN 08/15/18 [History] Cyclobenzaprine [Flexeril] 10 mg PO TID #17 tablet 08/18/18 [Rx] Doxycycline [Vibramycin] 100 mg PO BID #9 cap 08/18/18 [Rx] HYDROmorphone [Dilaudid] 4 mg PO Q4H PRN #30 tablet 08/18/18 [Rx] Midodrine 5 mg PO BID 08/26/18 [History] Past Medical History HEENT History: Reports: Cataract Other HEENT History: dental fillings due to caries; recent tooth fracture Cardiovascular History: Reports: Afib, Cardiomyopathy, Heart Failure, Hypertension, CT Respiratory History: Reports: Asthma, Bronchitis, Recurrent, PE, Pneumonia, Recurrent, Other (See Below) Other Respiratory History: Chronic pulmonary aspergillosis, 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 No explantation- -they apparently just treated him with IV abx for months. - Past Surgical History Head Surgeries/Procedures: Reports: None HEENT Surgical History: Reports: Cataract Surgery Cardiovascular Surgical History: Reports: None Respiratory Surgical History: Reports: Lung Resection Other Respiratory Surgeries/Procedures: intubated last Feb 2018 and transfered to [facility] Surgical History: Reports: None Male Surgical History: Reports: None Endocrine Surgical History: Reports: None Neurological Surgical History: Reports: None Musculoskeletal Surgical History: Reports: Shoulder Surgery, Other (See Below) Other Musculoskeletal Surgeries/Procedures:: L shoulder and left hip surgery Oncologic Surgical History: Reports: None Dermatological Surgical History: Reports: None Social & Family History - Family History Family Medical History: Noncontributory - Tobacco Use Smoking Status *Q: Never Smoker - Caffeine Use Caffeine Use: Reports: None - Recreational Drug Use Recreational Drug Use: No - Living Situation & Occupation Living situation: Reports: Single, with Family (sons) Occupation: Disabled H&P Review of Systems - Review of Systems: Review Of Systems: See Below General: Reports: Weakness HEENT: Reports: No Symptoms Pulmonary: Reports: Shortness of Breath Cardiovascular: Reports: No Symptoms Gastrointestinal: Reports: No Symptoms Genitourinary: Reports: No Symptoms Musculoskeletal: Reports: Arm Pain, Back Pain, Muscle Stiffness Skin: Reports: Bruising, Rash Psychiatric: Reports: No Symptoms Neurological: Reports: No Symptoms Hematologic/Lymphatic: Reports: Easy Bleeding, Easy Bruising Immunologic: Reports: No Symptoms Exam - Exam Exam: See Below - Vital Signs Vital Signs: Last Vital Signs Temp 36.6 C 08/26/18 12:22 Pulse 89 08/26/18 15:51 Resp 18 08/26/18 15:51 BP 120/77 08/26/18 15:51 Pulse Ox 94 L 08/26/18 15:51 Weight: 68.039 kg - Exam Quality Assessment: No: Supplemental Oxygen General: Alert (Appears older than stated age), Oriented, Cooperative HEENT: Conjunctiva Clear, EACs Clear, EOMI, Nares Patent, PERRLA. No: Mucosa Moist & [place] (Dry) Neck: Supple, Trachea Midline Lungs: Normal Respiratory Effort, Crackles Cardiovascular: Regular Rate, Regular Rhythm GI/Abdominal Exam: Normal Bowel Sounds, Soft, Non-Tender, No Distention (Male) Exam: Deferred Rectal (Males) Exam: Deferred Back Exam: Normal Inspection Extremities: No: Normal Inspection (Contracture right hand), Normal Range of Motion Skin: Warm, Dry, Other (Thin skin secondary to steroids) Neurological: Cranial Nerves Intact Neuro Extensive - Mental Status: Alert Psychiatric: Alert, Normal Affect, Normal Mood - Patient Data Lab Results Last 24 hrs: Laboratory Results - last 24 hr 08/26/18 08/26/18 Range/Units 13:20 13:20 WBC 12.70 H (4.0-11.0) K/uL RBC 3.85 L (4.50-5.90) M/uL Hgb 9.6 L (13.0-17.0) g/dL Hct 33.7 L (38.0-50.0) % MCV 87.5 (80.0-98.0) fL MCH 24.9 L (27.0-32.0) pg MCHC 28.5 L (31.0-37.0) g/dL RDW Std Deviation 61.7 (28.0-62.0) fl RDW Coeff of Tre 19 H (11.0-15.0) % Plt Count 370 (150-400) K/uL MPV 9.60 (7.40-12.00) fL Add Manual Diff YES Neutrophils % (Manual) 70 (48.0-80.0) % Band Neutrophils % 19 % Lymphocytes % (Manual) 7 L (16.0-40.0) % Monocytes % (Manual) 4 (0.0-15.0) % Nucleated RBC % 0.0 /100WBC Absolute Seg Neuts 8.9 H (1.4-5.7) Band Neutrophils # 2.4 Lymphocytes # (Manual) 0.9 (0.6-2.4) Monocytes # (Manual) 0.5 (0.0-0.8) Nucleated RBCs # 0 K/uL Sodium 135 L (136-148) mmol/L Potassium 6.2 H (3.5-5.1) mmol/L Chloride 98 (98-107) mmol/L Carbon Dioxide 32.4 H (21.0-32.0) mmol/L BUN 38 H (7.0-18.0) mg/dL Creatinine 1.4 H (0.8-1.3) mg/dL Est Cr Clr Drug Dosing 53.77 mL/min Estimated GFR (MDRD) 52.1 ml/min Glucose 160 H (74-106) mg/dL Calcium 9.0 (8.5-10.1) mg/dL Result Diagrams: 08/26/18 13:20 08/26/18 23:10 - Problem List (1) Hyperkalemia SNOMED Code(s): 61106906 ICD Code: E87.5 - HYPERKALEMIA Status: Acute Priority: High Current Visit: Yes Problem Details: Noted to have EKG changes (2) Anticoagulated on Coumadin SNOMED Code(s): 05677092 ICD Code: Z51.81 - ENCOUNTER FOR THERAPEUTIC DRUG LEVEL MONITORING; Z79.01 - JAIL (CURRENT) USE OF ANTICOAGULANTS Status: Chronic Priority: Medium Current Visit: Yes (3) Aspergillosis SNOMED Code(s): 79694969 ICD Code: B44.9 - ASPERGILLOSIS, UNSPECIFIED Status: Chronic Priority: Medium Current Visit: Yes (4) CKD (chronic kidney disease) SNOMED Code(s): 263874813 ICD Code: N18.9 - CHRONIC KIDNEY DISEASE, UNSPECIFIED Status: Chronic Priority: High Current Visit: Yes Qualifiers: Chronic kidney disease stage: stage 3 (moderate) Qualified Code(s): N18.3 - Chronic kidney disease, stage 3 (moderate) (5) Cardiomyopathy SNOMED Code(s): 04793379 ICD Code: I42.9 - CARDIOMYOPATHY, UNSPECIFIED Status: Chronic Priority: High Current Visit: Yes Qualifiers: Cardiomyopathy type: unspecified Qualified Code(s): I42.9 - Cardiomyopathy , unspecified (6) Immunocompromised due to corticosteroids SNOMED Code(s): 273586976 ICD Code: D84.8 - OTHER SPECIFIED IMMUNODEFICIENCIES; T38.0X5A - ADVERSE EFFECT OF GLUCOCORT/SYNTH ANALOG, INIT Status: Chronic Priority: Medium Current Visit: Yes Problem List Initiated/Reviewed/Updated: Yes Orders Last 24hrs: Active Orders 24 hr Category Date Time Status Admission Status [Patient Status] [ADT] Stat ADT 08/26/18 15:39 Active Cardiac Monitoring [RC] CONTINUOUS Care 08/26/18 15:48 Active EKG Documentation Completion [RC] STAT Care 08/26/18 12:45 Active Oxygen Therapy [RC] PRN Care 08/26/18 15:48 Active Up ad Jaja [RC] ASDIRECTED Care 08/26/18 15:48 Active VTE/DVT Education [RC] PER UNIT ROUTINE Care 08/26/18 15:48 Active Vital Signs [RC] Q4H Care 08/26/18 15:48 Active Heart Healthy Diet [DIET] Diet 08/26/18 Dinner Active BASIC METABOLIC PANEL,BMP [CHEM] Routine Lab 08/26/18 19:00 Ordered Apixaban [Eliquis] Med 08/26/18 21:00 Active 5 mg PO BID Cyclobenzaprine [Flexeril] Med 08/26/18 22:00 Active 10 mg PO TID Diclofenac Sodium Med 08/26/18 15:52 Active 1 applic TOP TID PRN Diltiazem [Cardizem CD] Med 08/27/18 09:00 Active 240 mg PO DAILY Doxycycline [Vibramycin] Med 08/26/18 21:00 Active 100 mg PO BID Gabapentin [Neurontin] Med 08/26/18 18:00 Active 800 mg PO Q6HR HYDROmorphone Med 08/26/18 15:52 Active 4 mg PO Q4H PRN Metoprolol Tartrate [Lopressor] Med 08/26/18 21:00 Active 50 mg PO BID Midodrine Med 08/26/18 21:00 Active 2.5 mg PO BID Pantoprazole [ProTONIX] Med 08/27/18 09:00 Active 40 mg PO DAILY Sodium Chloride 0.9% [Normal Saline] 1,000 ml Med 08/26/18 16:00 Active IV ASDIRECTED Sodium Polystyrene Sulfonate [Kayexalate] Med 08/26/18 16:00 Active 15 gm PO Q6H predniSONE Med 08/27/18 09:00 Active 20 mg PO DAILY Resuscitation Status Routine Resus Stat 08/26/18 15:48 Ordered Medication Orders Apixaban (Eliquis) 5 mg PO BID [facility] Cyclobenzaprine HCl (Flexeril) 10 mg PO TID [facility] Diltiazem HCl (Cardizem Cd) 240 mg PO DAILY [facility] Doxycycline Hyclate (Vibramycin) 100 mg PO BID [facility] Gabapentin (Neurontin) 800 mg PO Q6HR [facility] Sodium Chloride (Normal Saline) 1,000 mls @ 75 mls/hr IV ASDIRECTED DANIELITO Metoprolol Tartrate (Lopressor) 50 mg PO BID [facility] Midodrine (Midodrine) 2.5 mg PO BID [facility] Non-Formulary Medication (Diclofenac Sodium) 1 applic TOP TID PRN PRN Reason: Pain Non-Formulary Medication (Hydromorphone) 4 mg PO Q4H PRN PRN Reason: Pain Pantoprazole Sodium (Protonix) 40 mg PO DAILY [facility] Prednisone (Prednisone) 20 mg PO DAILY [facility] Sodium Polystyrene Sulfonate (Kayexalate) 15 gm PO Q6H [facility] Assessment/Plan Comment:: The patient is a 58-year-old gentleman who has a number of severe chronic medical conditions primarily to include chronic use of steroids secondary to aspergillosis, cardiomyopathy and chronic kidney disease. The patient had presented with hyperkalemia at 6.3 mmol per liter and he was also noted to have EKG changes specifically with acute peaked T waves. The patient was provided insulin and glucose in the ER to help reduce his extracellular potassium. The patient was admitted to observation and he was given Kayexalate to reduce his potassium. I've ordered repeat basic metabolic panel for the patient. The patient has a history of multiple hospitalizations however secondary to the acute hyperkalemia it is felt that once his potassium has normalized he'll be appropriate for discharge. Patient is going to follow-up with his primary care physician's. He should be appropriate for discharge in the morning.
[2018-08-26] MEDS: Sodium Chloride 0.9% 1,000 ML IV SCH (17:08)
[2018-08-26] MEDS: Gabapentin 800 MG Tab PO SCH (17:11)
[2018-08-26] MEDS: Sodium Polystyrene Sulfonate 15 GM/60 ML Susp 60 ML Bot PO SCH ×4 (18:11→20:29)
[2018-08-26] MEDS: Midodrine 5 MG Tab PO SCH (20:08)
[2018-08-26] MEDS: Metoprolol Tartrate 50 MG Tab PO SCH (20:42)
[2018-08-26] MEDS: Apixaban 5 MG Tab PO SCH (20:42)
[2018-08-26] MEDS ORDERED: Doxycycline 100 MG Cap PO SCH (21:00)
[2018-08-26] MEDS ORDERED: Cyclobenzaprine 10 MG Tab PO SCH (22:00)
[2018-08-26 23:32] LABS: CHLORIDE,CL 99 mmol/L (98-107); SODIUM,NA 135 mmol/L (136-148)
[2018-08-27] MEDS: Gabapentin 800 MG Tab PO SCH ×3 (00:01→11:30)
[2018-08-27] MEDS ORDERED: Sodium Polystyrene Sulfonate 15 GM/60 ML Susp 60 ML Bot PO SCH (04:00)
[2018-08-27] MEDS: Sodium Chloride 0.9% 1,000 ML IV SCH (06:42)
[2018-08-27] MEDS: Midodrine 5 MG Tab PO SCH (06:42)
[2018-08-27] MEDS: HYDROmorphone 2 MG Tab PO PRN ×2 (06:47→11:30)
[2018-08-27] MEDS ORDERED: predniSONE 20 MG Tab PO SCH (09:00)
[2018-08-27] MEDS ORDERED: Diltiazem 120 MG Cap.CD PO SCH (09:00)
[2018-08-27] MEDS ORDERED: Pantoprazole 40 MG Tab.CR PO SCH (09:00)
[2018-08-27 09:05] LABS: CHLORIDE,CL 102 mmol/L (98-107); SODIUM,NA 138 mmol/L (136-148)
[2018-08-27 09:16] VITALS: BP 109/68
[2018-08-27] MEDS: Metoprolol Tartrate 50 MG Tab PO SCH (09:16)
[2018-08-27] MEDS: Apixaban 5 MG Tab PO SCH (09:16)
--- NOTE | 2018-08-27 10:47 | PCM.DCSUM1 ---
Discharge Summary - Hospital Course HPI Initial Comments: The patient was admitted secondary to hyperkalemia with EKG changes. Diagnosis: Stroke: No - Discharge Data Discharge Date: 08/27/18 Discharge Disposition: Home, Self-Care 01 Condition: Fair - Discharge Diagnosis/Problem(s) (1) Hyperkalemia SNOMED Code(s): 83217556 ICD Code: E87.5 - HYPERKALEMIA Status: Resolved Priority: High Problem Details: Noted to have EKG changes (2) Anticoagulated on Coumadin SNOMED Code(s): 97600038 ICD Code: Z51.81 - ENCOUNTER FOR THERAPEUTIC DRUG LEVEL MONITORING; Z79.01 - ART PSYCHOTHERAPIST (CURRENT) USE OF ANTICOAGULANTS Status: Chronic Priority: Medium (3) Aspergillosis SNOMED Code(s): 81057062 ICD Code: B44.9 - ASPERGILLOSIS, UNSPECIFIED Status: Chronic Priority: Medium (4) CKD (chronic kidney disease) SNOMED Code(s): 356115753 ICD Code: N18.9 - CHRONIC KIDNEY DISEASE, UNSPECIFIED Status: Chronic Priority: High Qualifiers: Chronic kidney disease stage: stage 3 (moderate) Qualified Code(s): N18.3 - Chronic kidney disease, stage 3 (moderate) (5) Cardiomyopathy SNOMED Code(s): 89720585 ICD Code: I42.9 - CARDIOMYOPATHY, UNSPECIFIED Status: Chronic Priority: High Qualifiers: Cardiomyopathy type: unspecified Qualified Code(s): I42.9 - Cardiomyopathy , unspecified (6) Immunocompromised due to corticosteroids SNOMED Code(s): 585791940 ICD Code: D84.8 - OTHER SPECIFIED IMMUNODEFICIENCIES; T38.0X5A - ADVERSE EFFECT OF GLUCOCORT/SYNTH ANALOG, INIT Status: Chronic Priority: Medium - Patient Summary/Data Hospital Course: The patient is medically complex 58-year-old gentleman who had presented to the emergency department with complaints of fatigue and weakness. The patient was also concerned about his potassium being high. The patient was noted to have a potassium of 6.2 mmol per liter along with EKG changes. These included peaked T waves. The patient had been given insulin and dextrose in the emergency department to help potassium to move intracellularly. The patient had also been started on Kayexalate to reduce his serum potassium. The patient had his last potassium tested at 3.8 mmol per liter. During the short course of hospitalization the patient had continued to improve. By day of discharge the patient's potassium is normalized. He does have a history of chronic kidney disease and he has been advised to follow-up with his primary care physician very closely for this. The patient does have a number of complex medical issues that are currently stable and did not require any specific treatment. By day of discharge the patient had been tolerating his diet. He also has been recommended to continue with his diet as tolerated. He is to have activity as tolerated. The patient has been hemodynamically stable and he is discharged from hospitalization with recommendations listed above. - Patient Instructions Diet: Heart Healthy Diet Activity: As Tolerated - Discharge Plan *PRESCRIPTION DRUG MONITORING PROGRAM REVIEWED*: No *COPY OF PRESCRIPTION DRUG MONITORING REPORT IN PATIENT KECIA: No Home Medications: Home Meds Pantoprazole [ProTONIX] 40 mg PO DAILY 05/19/18 [History] Apixaban [Eliquis] 5 mg PO BID tablet 07/21/18 [Rx] Diltiazem [Cardizem CD] 240 mg PO DAILY cap.cd 07/21/18 [Rx] Metoprolol Tartrate [Lopressor] 50 mg PO BID tablet 07/21/18 [Rx] predniSONE 20 mg PO DAILY tablet 07/21/18 [Rx] Gabapentin [Neurontin] 800 mg PO Q6HR 08/05/18 [History] Diclofenac Sodium [Voltaren 1% Gel] 1 applic TOP TID PRN 08/15/18 [History] Cyclobenzaprine [Flexeril] 10 mg PO TID #17 tablet 08/18/18 [Rx] Doxycycline [Vibramycin] 100 mg PO BID #9 cap 08/18/18 [Rx] HYDROmorphone [Dilaudid] 4 mg PO Q4H PRN #30 tablet 08/18/18 [Rx] Midodrine 5 mg PO BID 08/26/18 [History] Oxygen Therapy Mode: Room Air Patient Handouts: Hyperkalemia, [id number] Referrals: Connor Melchor MD [Primary Care Provider] - (Please call Tomorrow, TuesdayAugust 28 and schedule a follow up appointment in 5-7 days.) - Discharge Summary/Plan Comment DC Time >30 min.: Yes - General Info Date of Service: 08/27/18 Admission Dx/Problem (Free Text: Admission Diagnosis/Problem Admission Diagnosis/Problem Hyperkalemia Functional Status: Reports: Pain Controlled - Review of Systems General: Reports: No Symptoms HEENT: Reports: No Symptoms Pulmonary: Reports: No Symptoms Cardiovascular: Reports: No Symptoms Gastrointestinal: Reports: No Symptoms Genitourinary: Reports: No Symptoms Musculoskeletal: Reports: No Symptoms Skin: Reports: No Symptoms Neurological: Reports: No Symptoms Psychiatric: Reports: No Symptoms - Patient Data Vitals - Most Recent: Last Vital Signs Temp 36.6 C 08/27/18 09:00 Pulse 101 H 08/27/18 09:16 Resp 18 08/27/18 09:00 BP 109/68 08/27/18 09:16 Pulse Ox 95 08/27/18 09:00 Weight - Most Recent: 68.039 kg Lab Results - Last 24 hrs: Laboratory Results - last 24 hr 08/26/18 08/26/18 08/26/18 Range/Units 13:20 13:20 23:10 WBC 12.70 H (4.0-11.0) K/uL RBC 3.85 L (4.50-5.90) M/uL Hgb 9.6 L (13.0-17.0) g/dL Hct 33.7 L (38.0-50.0) % MCV 87.5 (80.0-98.0) fL MCH 24.9 L (27.0-32.0) pg MCHC 28.5 L (31.0-37.0) g/dL RDW Std Deviation 61.7 (28.0-62.0) fl RDW Coeff of Tre 19 H (11.0-15.0) % Plt Count 370 (150-400) K/uL MPV 9.60 (7.40-12.00) fL Add Manual Diff YES Neutrophils % (Manual) 70 (48.0-80.0) % Band Neutrophils % 19 % Lymphocytes % (Manual) 7 L (16.0-40.0) % Monocytes % (Manual) 4 (0.0-15.0) % Nucleated RBC % 0.0 /100WBC Absolute Seg Neuts 8.9 H (1.4-5.7) Band Neutrophils # 2.4 Lymphocytes # (Manual) 0.9 (0.6-2.4) Monocytes # (Manual) 0.5 (0.0-0.8) Nucleated RBCs # 0 K/uL Sodium 135 L 135 L (136-148) mmol/L Potassium 6.2 H 3.8 (3.5-5.1) mmol/L Chloride 98 99 (98-107) mmol/L Carbon Dioxide 32.4 H 30.6 (21.0-32.0) mmol/L BUN 38 H 36 H (7.0-18.0) mg/dL Creatinine 1.4 H 1.1 (0.8-1.3) mg/dL Est Cr Clr Drug Dosing 53.77 61.29 mL/min Estimated GFR (MDRD) 52.1 > 60.0 ml/min Glucose 160 H 117 H (74-106) mg/dL Calcium 9.0 8.7 (8.5-10.1) mg/dL 08/27/18 08/27/18 Range/Units 07:42 07:42 WBC 6.75 (4.0-11.0) K/uL RBC 3.15 L (4.50-5.90) M/uL Hgb 7.8 L (13.0-17.0) g/dL Hct 26.9 L (38.0-50.0) % MCV 85.4 (80.0-98.0) fL MCH 24.8 L (27.0-32.0) pg MCHC 29.0 L (31.0-37.0) g/dL RDW Std Deviation 58.8 (28.0-62.0) fl RDW Coeff of Tre 19 H (11.0-15.0) % Plt Count 346 (150-400) K/uL MPV 9.20 (7.40-12.00) fL Add Manual Diff YES Neutrophils % (Manual) 64 (48.0-80.0) % Band Neutrophils % 11 % Lymphocytes % (Manual) 16 (16.0-40.0) % Monocytes % (Manual) 9 (0.0-15.0) % Nucleated RBC % 0.0 /100WBC Absolute Seg Neuts 4.3 (1.4-5.7) Band Neutrophils # 0.7 Lymphocytes # (Manual) 1.1 (0.6-2.4) Monocytes # (Manual) 0.6 (0.0-0.8) Nucleated RBCs # 0 K/uL Sodium 138 (136-148) mmol/L Potassium 3.8 (3.5-5.1) mmol/L Chloride 102 (98-107) mmol/L Carbon Dioxide 31.5 (21.0-32.0) mmol/L BUN 29 H (7.0-18.0) mg/dL Creatinine 1.0 (0.8-1.3) mg/dL Est Cr Clr Drug Dosing 67.42 mL/min Estimated GFR (MDRD) > 60.0 ml/min Glucose 96 (74-106) mg/dL Calcium 8.4 L (8.5-10.1) mg/dL Med Orders - Current: Current Medications Apixaban (Eliquis) 5 mg PO BID [facility] Last Admin: 08/27/18 09:16 Dose: 5 mg Diltiazem HCl (Cardizem Cd) 240 mg PO DAILY [facility] Last Admin: 08/27/18 09:16 Dose: 240 mg Gabapentin (Neurontin) 800 mg PO Q6HR [facility] Last Admin: 08/27/18 06:42 Dose: 800 mg Hydromorphone HCl (Dilaudid) 4 mg PO Q4H PRN PRN Reason: PAIN Last Admin: 08/27/18 06:47 Dose: 4 mg Sodium Chloride (Normal Saline) 1,000 mls @ 75 mls/hr IV ASDIRECTED [facility] Last Infusion: 08/27/18 07:54 Dose: 75 mls/hr Metoprolol Tartrate (Lopressor) 50 mg PO BID [facility] Last Admin: 08/27/18 09:16 Dose: 50 mg Midodrine (Midodrine) 5 mg PO BIDAC [facility] Last Admin: 08/27/18 06:42 Dose: 5 mg Non-Formulary Medication (Diclofenac Sodium) 1 applic TOP TID PRN PRN Reason: Pain Pantoprazole Sodium (Protonix) 40 mg PO DAILY [facility] Last Admin: 08/27/18 09:16 Dose: 40 mg Prednisone (Prednisone) 20 mg PO DAILY [facility] Last Admin: 08/27/18 09:16 Dose: 20 mg Discontinued Medications Calcium Gluconate (Calcium Gluconate) 1 gm IVPUSH ONETIME ONE Stop: 08/26/18 14:25 Last Admin: 08/26/18 15:14 Dose: 1 gm Cyclobenzaprine HCl (Flexeril) 10 mg PO TID [facility] Doxycycline Hyclate (Vibramycin) 100 mg PO BID [facility] Furosemide (Lasix) 10 mg IVPUSH NOW ONE Stop: 08/26/18 14:24 Last Admin: 08/26/18 15:11 Dose: 10 mg Insulin Human Regular (Novolin R) 5 unit SUBCUT NOW STA; Protocol Stop: 08/26/18 14:25 Last Admin: 08/26/18 15:07 Dose: 5 units Non-Formulary Medication (Hydromorphone) 4 mg PO Q4H PRN PRN Reason: Pain Sodium Polystyrene Sulfonate (Kayexalate) 15 gm PO Q6H [facility] Last Admin: 08/26/18 20:20 Dose: 15 gm Sodium Polystyrene Sulfonate (Kayexalate) 15 gm PO Q6H [facility] Last Admin: 08/26/18 20:29 Dose: Not Given Sodium Polystyrene Sulfonate (Kayexalate) 15 gm PO Q6H DANIELITO - Exam Quality Assessment: Denies: Supplemental Oxygen General: Reports: Alert, Oriented, Cooperative, No Acute Distress HEENT: Reports: Pupils Equal, Pupils Reactive, EOMI Neck: Reports: Supple, Trachea Midline Lungs: Reports: Normal Respiratory Effort, Crackles, Rhonchi Cardiovascular: Reports: Regular Rate, Regular Rhythm GI/Abdominal Exam: Normal Bowel Sounds, Soft, No Distention (Male) Exam: Deferred Rectal (Males) Exam: Deferred Back Exam: Reports: Normal Inspection Extremities: No: Normal Inspection (Contracture right hand) Skin: Reports: Warm, Dry, Intact, Other (Thin skin secondary to steroids) Neurological: Reports: No New Focal Deficit Psy/Mental Status: Reports: Alert, Normal Affect, Normal Mood
== END 2018-08-27 14:00 | disposition home or self-care (01) ==
LOC: MW.ED 11:34 → MW.MS 16:19
PROVIDERS: ADMIT Internal Medicine; ATTEND Internal Medicine
DX: E87.5 Hyperkalemia (principal); B44.9 Aspergillosis, unspecified; I13.0 Hypertensive heart and chronic kidney disease with heart failure and stage 1 through stage 4 chronic kidney disease, or unspecified chronic kidney disease; N18.3 Chronic kidney disease, stage 3 (moderate); I50.9 Heart failure, unspecified; I42.9 Cardiomyopathy, unspecified; I25.2 Old myocardial infarction; J45.909 Unspecified asthma, uncomplicated; T38.0X5A Adverse effect of glucocorticoids and synthetic analogues, initial encounter; Z88.1 Allergy status to other antibiotic agents; Z88.8 Allergy status to other drugs, medicaments and biological substances; Z79.01 Long term (current) use of anticoagulants; Z79.52 Long term (current) use of systemic steroids; Z79.899 Other long term (current) drug therapy
CPT/HCPCS: 36415; 80048; 82962; 85025; 93005; 96374; 96375; 99285; A9270; J0610; J1940; J7040; 99284; J1815-GY

== ENCOUNTER 2018-10-09 07:33 | Inpatient (IN) | payer MEDICARE, OTHER ==
[2018-10-09] MEDS ORDERED: Sodium Chloride 0.9% 1,000 ML IV ONE (07:37)
[2018-10-09] MEDS ORDERED: Aspirin 81 MG Tab.Chew PO ONE (07:37)
[2018-10-09] MEDS ORDERED: methylPREDNISolone Sodium Succinate 125 MG/2 ML SDV IVPUSH ONE (07:38)
[2018-10-09] MEDS ORDERED: Albuterol/Ipratropium 3.0-0.5 MG/3 ML Neb Soln NEB ONE ×2 (07:38→07:48)
--- NOTE | 2018-10-09 07:39 | EDM.PDOC ---
ED HPI GENERAL MEDICAL PROBLEM - General Stated Complaint: SHORTNESS OF BREATH, INTENSE PAIN Time Seen by Provider: 10/09/18 07:38 Source of Information: Reports: Patient - History of Present Illness INITIAL COMMENTS - FREE TEXT/NARRATIVE: HISTORY AND PHYSICAL: History of present illness: Patient with history of aspergillosis presents with shortness of breath and hypoxia 78% on room air no fever nausea vomiting chills sweats no chest pain ] Review of systems: As per history of present illness and below otherwise all systems reviewed and negative. Past medical history: As per history of present illness and as reviewed below otherwise noncontributory. Surgical history: As per history of present illness and as reviewed below otherwise noncontributory. Social history: No reported history of drug or alcohol abuse. Family history: As per history of present illness and as reviewed below otherwise noncontributory. Physical exam: HEENT: Atraumatic, normocephalic, pupils reactive, negative for conjunctival pallor or scleral icterus, mucous membranes moist, throat clear, neck supple, nontender, trachea midline. Lungs: Clear to auscultation, breath sounds equal bilaterally, chest nontender. Heart: S1S2, regular, negative for clicks, rubs, or JVD. Abdomen: Soft, nondistended, nontender. Negative for masses or hepatosplenomegaly. Negative for costovertebral tenderness. Pelvis: Stable nontender. Genitourinary: Deferred. Rectal: Deferred. Extremities: Atraumatic, negative for cords or calf pain. Neurovascular unremarkable. Neuro: Awake, alert, oriented. Cranial nerves II through XII unremarkable. Cerebellum unremarkable. Motor and sensory unremarkable throughout. Exam nonfocal. Diagnostics: [CBC CMP troponin lipase UA type and screen Chest 1 view EKG] Therapeutics: []Normal saline Solu-Medrol DuoNeb Impression: [Hypoxia] Anemia Infiltrate on chest x-ray Chronic history of baseline Definitive disposition and diagnosis as appropriate pending reevaluation and review of above. Lower Back Pain Score (Numeric/FACES): 6 - Related Data Allergies Allergy/AdvReac Type Severity Reaction Status Date / Time itraconazole [From Sporanox] Allergy Unknown Confusion Verified 10/09/18 08:20 levofloxacin [From Levaquin] Allergy Unknown Other Verified 10/09/18 08:20 Home Meds: Home Meds Apixaban [Eliquis] 5 mg PO BID tablet 03/08/19 [Rx] Metoprolol Tartrate [Lopressor] 50 mg PO BID tablet 07/21/18 [Rx] Gabapentin [Neurontin] 1,600 mg PO BID 08/05/18 [History] Albuterol Sulfate 2.5 mg IH Q4HRRT PRN 10/09/18 [History] Diltiazem [Cardizem CD] 240 mg PO QAM 10/09/18 [History] Fludrocortisone [Fludrocortisone Acetate] 0.1 mg PO DAILY 10/09/18 [History] Fluticasone/Vilanterol [Breo Ellipta 200-25 Mcg INH] 1 each IH DAILY 10/09/18 [ History] HYDROmorphone [Dilaudid] 4 mg PO Q6H PRN 10/09/18 [History] Lansoprazole [Prevacid] 30 mg PO ACBREAKFAST 10/09/18 [History] Tiotropium [place] [Spiriva Respimat] 2 inh IH DAILY 10/09/18 [History] predniSONE 20 mg PO QAM 10/09/18 [History] Past Medical History HEENT History: Reports: Cataract Other HEENT History: dental fillings due to caries; recent tooth fracture Cardiovascular History: Reports: Afib, Cardiomyopathy, Heart Failure, Hypertension, [place] Other Cardiovascular History: Heart attack April 2010 Respiratory History: Reports: Asthma, Bronchitis, Recurrent, PE, Pneumonia, Recurrent, Other (See Below) Other Respiratory History: Chronic pulmonary aspergillosis, 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 No explantation- -they apparently just treated him with IV abx for months. - Past Surgical History Head Surgeries/Procedures: Reports: None HEENT Surgical History: Reports: Cataract Surgery Cardiovascular Surgical History: Reports: None Respiratory Surgical History: Reports: Lung Resection Other Respiratory Surgeries/Procedures: intubated last Feb 2018 and transfered to [facility] Surgical History: Reports: None Male Surgical History: Reports: None Endocrine Surgical History: Reports: None Neurological Surgical History: Reports: None Musculoskeletal Surgical History: Reports: Shoulder Surgery, Other (See Below) Other Musculoskeletal Surgeries/Procedures:: L shoulder and left hip surgery Oncologic Surgical History: Reports: None Dermatological Surgical History: Reports: None Social & Family History - Family History Family Medical History: Noncontributory - Caffeine Use Caffeine Use: Reports: None - Living Situation & Occupation Living situation: Reports: Single, with Family (sons) Occupation: Disabled ED ROS GENERAL - Review of Systems Review Of Systems: See Below ED EXAM, GENERAL - Physical Exam Exam: See Below Course - Vital Signs Last Recorded V/S: Last Vital Signs Temp Pulse 132 H 10/09/18 07:33 Resp 32 H 10/09/18 07:33 BP 128/89 10/09/18 07:33 Pulse Ox 97 10/09/18 08:42 - Orders/Labs/Meds Orders: Active Orders 24 hr Category Date Time Status EKG Documentation Completion [RC] STAT Care 10/09/18 07:38 Active RT Aerosol Therapy [RC] ASDIRECTED Care 10/09/18 07:38 Active RT Aerosol Therapy [RC] ASDIRECTED Care 10/09/18 07:48 Active Chest 1V Frontal [CR] Stat Exams 10/09/18 07:38 Taken B-NATRIURETC PEPTD [REF] Stat Lab 10/09/18 07:54 Received CULTURE BLOOD [BC] Stat Lab 10/09/18 09:01 Ordered CULTURE BLOOD [BC] Stat Lab 10/09/18 09:01 Ordered TYPE AND SCREEN [BBK] Stat Lab 10/09/18 08:27 Received UA RFX SIHLOH AND CULT IF INDIC [URIN] Stat Lab 10/09/18 07:37 Ordered Piperacillin/Tazobactam [Zosyn] 2.25 gm Med 10/09/18 09:03 Active Sodium Chloride 0.9% [Normal Saline] 50 ml IV ONETIME Sodium Chloride 0.9% [Normal Saline] 1,000 ml Med 10/09/18 07:45 Active IV STAT Vancomycin [Vancocin] 1 gm Med 10/09/18 09:03 Active Sodium Chloride 0.9% [Normal Saline] 250 ml IV ONETIME Blood Culture x2 Reflex Set [OM.PC] Stat Oth 10/09/18 09:01 Ordered Medication Orders Sodium Chloride (Normal Saline) 1,000 mls @ 125 mls/hr IV STAT DANIELITO Last Admin: 10/09/18 08:03 Dose: 125 mls/hr Piperacillin Sod/Tazobactam (Sod 2.25 gm/ Sodium Chloride) 50 mls @ 100 mls/hr IV ONETIME ONE Stop: 10/09/18 09:32 Vancomycin HCl 1 gm/ Sodium (Chloride) 250 mls @ 250 mls/hr IV ONETIME ONE Stop: 10/09/18 10:02 Labs: Laboratory Tests 10/09/18 10/09/18 10/09/18 Range/Units 07:54 07:54 07:54 WBC 11.80 H (4.0-11.0) K/uL RBC 3.54 L (4.50-5.90) M/uL Hgb 8.2 L (13.0-17.0) g/dL Hct 29.2 L (38.0-50.0) % MCV 82.5 (80.0-98.0) fL MCH 23.2 L (27.0-32.0) pg MCHC 28.1 L (31.0-37.0) g/dL RDW Std Deviation 54.6 (28.0-62.0) fl RDW Coeff of Tre 18 H (11.0-15.0) % Plt Count 314 (150-400) K/uL MPV 9.20 (7.40-12.00) fL Neut % (Auto) 86.6 H (48.0-80.0) % Lymph % (Auto) 5.3 L (16.0-40.0) % Vance % (Auto) 7.9 (0.0-15.0) % Eos % (Auto) 0.1 (0.0-7.0) % Baso % (Auto) 0.1 (0.0-1.5) % Neut # (Auto) 10.2 H (1.4-5.7) K/uL Lymph # (Auto) 0.6 (0.6-2.4) K/uL Vance # (Auto) 0.9 H (0.0-0.8) K/uL Eos # (Auto) 0.0 (0.0-0.7) K/uL Baso # (Auto) 0.0 (0.0-0.1) K/uL Nucleated RBC % 1.0 /100WBC Nucleated RBCs # 0 K/uL INR 1.11 Sodium 137 (136-148) mmol/L Potassium 4.8 (3.5-5.1) mmol/L Chloride 97 L (98-107) mmol/L Carbon Dioxide 30.7 (21.0-32.0) mmol/L BUN 25 H (7.0-18.0) mg/dL Creatinine 1.6 H (0.8-1.3) mg/dL Est Cr Clr Drug Dosing 45.20 mL/min Estimated GFR (MDRD) 44.6 ml/min Glucose 125 H (74-106) mg/dL Calcium 8.7 (8.5-10.1) mg/dL Total Bilirubin 0.4 (0.2-1.0) mg/dL AST 52 H (15-37) IU/L ALT 31 (14-63) IU/L Alkaline Phosphatase 76 (46-116) U/L Troponin I < 0.050 (0.000-0.056) ng/mL Total Protein 7.0 (6.4-8.2) g/dL Albumin 2.2 L (3.4-5.0) g/dL Globulin 4.8 H (2.6-4.0) g/dL Albumin/Globulin Ratio 0.5 L (0.9-1.6) Lipase 99 (73-393) U/L Meds: Medications Generic Name Dose Route Start Last Admin Trade Name Freq PRN Reason Stop Dose Admin Sodium Chloride 1,000 mls @ 125 mls/hr 10/09/18 07:45 10/09/18 08:03 Normal Saline IV 125 mls/hr STAT DANIELITO Administration Piperacillin Sod/Tazobactam 50 mls @ 100 mls/hr 10/09/18 09:03 Sod 2.25 gm/ Sodium Chloride IV 10/09/18 09:32 ONETIME ONE Vancomycin HCl 1 gm/ Sodium 250 mls @ 250 mls/hr 10/09/18 09:03 Chloride IV 10/09/18 10:02 ONETIME ONE Discontinued Medications Generic Name Dose Route Start Last Admin Trade Name Shiv PRN Reason Stop Dose Admin Albuterol/Ipratropium 3 ml 10/09/18 07:38 10/09/18 07:53 Duoneb 3.0-0.5 Mg/3 Ml NEB 10/09/18 07:39 3 ml ONETIME ONE Administration Albuterol/Ipratropium 3 ml 10/09/18 07:48 10/09/18 07:53 Duoneb 3.0-0.5 Mg/3 Ml NEB 10/09/18 07:49 3 ml ONETIME ONE Administration Aspirin 324 mg 10/09/18 07:37 10/09/18 08:03 Aspirin PO 10/09/18 07:38 324 mg ONETIME ONE Administration Sodium Chloride 1,000 mls @ 999 mls/hr 10/09/18 07:37 10/09/18 08:13 Normal Saline IV 10/09/18 08:37 Not Given STAT ONE Methylprednisolone Sodium Succinate 125 mg 10/09/18 07:38 10/09/18 08:03 Solu-Medrol IVPUSH 10/09/18 07:39 125 mg ONETIME ONE Administration Departure - Departure Time of Disposition: 09:09 Disposition: Admitted As Inpatient 66 Condition: Fair Clinical Impression: Hypoxia, Abnormal finding on chest xray, History of aspergillosis Pneumonia Qualifiers: Pneumonia type: due to unspecified organism Laterality: left Lung location: unspecified part of lung Qualified Code(s): J18.9 - Pneumonia, unspecified organism Chronic renal insufficiency Qualifiers: Chronic kidney disease stage: stage 3 (moderate) Qualified Code(s): N18.3 - Chronic kidney disease, stage 3 (moderate) - Discharge Information Referrals: Connor Melchor MD [Primary Care Provider] - - My Orders Last 24 Hours: My Active Orders 10/09/18 07:37 UA RFX SHILOH AND CULT IF INDIC [URIN] Stat 10/09/18 07:38 EKG Documentation Completion [RC] STAT RT Aerosol Therapy [RC] ASDIRECTED Chest 1V Frontal [CR] Stat 10/09/18 07:45 Sodium Chloride 0.9% [Normal Saline] 1,000 ml IV STAT 10/09/18 07:48 RT Aerosol Therapy [RC] ASDIRECTED 10/09/18 07:54 B-NATRIURETC PEPTD [REF] Stat 10/09/18 08:27 TYPE AND SCREEN [BBK] Stat 10/09/18 09:01 CULTURE BLOOD [BC] Stat CULTURE BLOOD [BC] Stat Blood Culture x2 Reflex Set [OM.PC] Stat 10/09/18 09:03 Piperacillin/Tazobactam [Zosyn] 2.25 gm Sodium Chloride 0.9% [Normal Saline] 50 ml IV ONETIME Vancomycin [Vancocin] 1 gm Sodium Chloride 0.9% [Normal Saline] 250 ml IV ONETIME - Assessment/Plan Last 24 Hours: My Active Orders 10/09/18 07:37 UA RFX SHILOH AND CULT IF INDIC [URIN] Stat 10/09/18 07:38 EKG Documentation Completion [RC] STAT RT Aerosol Therapy [RC] ASDIRECTED Chest 1V Frontal [CR] Stat 10/09/18 07:45 Sodium Chloride 0.9% [Normal Saline] 1,000 ml IV STAT 10/09/18 07:48 RT Aerosol Therapy [RC] ASDIRECTED 10/09/18 07:54 B-NATRIURETC PEPTD [REF] Stat 10/09/18 08:27 TYPE AND SCREEN [BBK] Stat 10/09/18 09:01 CULTURE BLOOD [BC] Stat CULTURE BLOOD [BC] Stat Blood Culture x2 Reflex Set [OM.PC] Stat 10/09/18 09:03 Piperacillin/Tazobactam [Zosyn] 2.25 gm Sodium Chloride 0.9% [Normal Saline] 50 ml IV ONETIME Vancomycin [Vancocin] 1 gm Sodium Chloride 0.9% [Normal Saline] 250 ml IV ONETIME
[2018-10-09] MEDS ORDERED: Sodium Chloride 0.9% 1,000 ML IV SCH ×2 (07:45→23:30)
[2018-10-09 08:23] LABS: CHLORIDE,CL 97 mmol/L (98-107); SODIUM,NA 137 mmol/L (136-148)
[2018-10-09] MEDS ORDERED: Piperacillin/Tazobactam 2.25 GM in Sodium Chloride 0.9% 50 ML IV ONE ×2 (09:03→11:15)
--- NOTE | 2018-10-09 10:46 | PCM.HP ---
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 He reports this has progressively worsened at home over the last 5-7 days. He reports a mild cough, no fevers or chills. He reports wheezing and dyspnea with speech. No chest pain or palpitations. He denies abdominal pain or diarrhea. No black or bloody BMs. No urinary concerns. He reports no smoking or environmental exposures. He has been taking his Prednisone and Fludorcortisone as prescribed along with his inhalers. In the ED mild leukocytosis noted, 11,800, hgb 8.2. Platelets 314,000. BUN 25 Cr 1.6. CXR revealed no significant changes, mild prominence of pulmonary vasculature, but no definite CHF or consolidation. He was treated with oxygen therapy for sats 78% on arrival. He was given Duonebs, Solumedrol IV and Vancomycin and Zosyn. BC obtained as well. He will be admitted with acute on chronic hypoxic respiratory failure secondary to hx of pulmonary aspergillosis. PCP, Dr Melchor Lower Back Pain Score (Numeric/FACES): 6 Right Shoulder Pain Score (Numeric/FACES): 6 - Related Data Allergies/Adverse Reactions: Allergies Allergy/AdvReac Type Severity Reaction Status Date / Time itraconazole [From Sporanox] Allergy Unknown Confusion Verified 10/09/18 08:20 levofloxacin [From Levaquin] Allergy Unknown Other Verified 10/09/18 08:20 Home Medications: Home Meds Apixaban [Eliquis] 5 mg PO BID tablet 07/21/18 [Rx] Metoprolol Tartrate [Lopressor] 50 mg PO BID tablet 07/21/18 [Rx] Gabapentin [Neurontin] 1,600 mg PO BID 08/05/18 [History] Albuterol Sulfate 2.5 mg IH Q4HRRT PRN 10/09/18 [History] Diltiazem [Cardizem CD] 240 mg PO QAM 10/09/18 [History] Fludrocortisone [Fludrocortisone Acetate] 0.1 mg PO DAILY 10/09/18 [History] Fluticasone/Vilanterol [Breo Ellipta 200-25 Mcg INH] 1 each IH DAILY 10/09/18 [ History] HYDROmorphone [Dilaudid] 4 mg PO Q6H PRN 10/09/18 [History] Lansoprazole [Prevacid] 30 mg PO ACBREAKFAST 10/09/18 [History] Tiotropium Clarion [Spiriva Respimat] 2 inh IH DAILY 10/09/18 [History] predniSONE 20 mg PO QAM 10/09/18 [History] Past Medical History HEENT History: Reports: Cataract Other HEENT History: dental fillings due to caries; recent tooth fracture Cardiovascular History: Reports: Afib, Cardiomyopathy, Heart Failure, Hypertension, [place] Other Cardiovascular History: Heart attack April 2010 Respiratory History: Reports: Asthma, Bronchitis, Recurrent, PE, Pneumonia, Recurrent, Other (See Below) Other Respiratory History: Chronic pulmonary aspergillosis, 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 - Infectious Disease History Infectious Disease History: Reports: C-Difficile, MRSA - Past Surgical History Head Surgeries/Procedures: Reports: None HEENT Surgical History: Reports: Cataract Surgery Cardiovascular Surgical History: Reports: None Respiratory Surgical History: Reports: Lung Resection Other Respiratory Surgeries/Procedures: intubated last Feb 2018 and transfered to [facility] Surgical History: Reports: Colonoscopy (2017) Male Surgical History: Reports: None Endocrine Surgical History: Reports: None Neurological Surgical History: Reports: None Musculoskeletal Surgical History: Reports: Amputation, Shoulder Surgery, Other ( See Below) Other Musculoskeletal Surgeries/Procedures:: L shoulder and left hip surgery Oncologic Surgical History: Reports: None Dermatological Surgical History: Reports: None Social & Family History - Family History Family Medical History: Noncontributory - Tobacco Use Smoking Status *Q: Never Smoker - Caffeine Use Caffeine Use: Reports: None - Alcohol Use Alcohol Use History: No - Recreational Drug Use Recreational Drug Use: No - Living Situation & Occupation Living situation: Reports: Single, with Family (sons) Occupation: Disabled H&P Review of Systems - Review of Systems: Review Of Systems: See Below General: Denies: Fever, Chills, Malaise, Weakness HEENT: Denies: Headaches, Sinus Congestion, Sore Throat Pulmonary: Reports: Shortness of Breath, Wheezing, Cough. Denies: Hemoptysis Cardiovascular: Reports: Dyspnea on Exertion. Denies: Chest Pain, Palpitations , Orthopnea, Edema Gastrointestinal: Reports: No Symptoms. Denies: Abdominal Pain, Black Stool, Bloody Stool, Diarrhea, Distension, Nausea, Vomiting Genitourinary: Reports: No Symptoms. Denies: Dysuria, Frequency, Burning Musculoskeletal: Reports: No Symptoms Skin: Reports: Wound (R dorsum foot and ulcer to R heel) Psychiatric: Reports: No Symptoms Neurological: Reports: No Symptoms Hematologic/Lymphatic: Reports: No Symptoms Immunologic: Reports: No Symptoms Exam - Exam Exam: See Below - Vital Signs Vital Signs: Last Vital Signs Temp Pulse 132 H 10/09/18 07:33 Resp 32 H 10/09/18 07:33 BP 128/89 10/09/18 07:33 Pulse Ox 97 10/09/18 08:42 Weight: 63.503 kg - Exam Quality Assessment: Supplemental Oxygen, DVT Prophylaxis General: Alert, Oriented, Cooperative HEENT: Conjunctiva Clear, Mucosa Moist & Banks, Posterior Pharynx Clear Neck: Supple, Trachea Midline. No: JVD Lungs: Decreased Breath Sounds, Rhonchi, Wheezing (throughout). No: Normal Respiratory Effort (dyspnea with speech) Cardiovascular: Regular Rhythm, Normal S1, Normal S2, Tachycardia GI/Abdominal Exam: Normal Bowel Sounds Back Exam: Normal Inspection Extremities: Normal Inspection, Normal Range of Motion, Non-Tender, Pedal Edema (+1 pititng to lower extremities) Skin: Other (stage 2 ulcer to L ulcer, no S/S infection. No pain or swelling. Healing wound to dorsum of L foot, just below 3 metatarsal. No redness or swelling.) Neuro Extensive - Mental Status: Alert, Oriented x3 Neuro Extensive - Motor, Sensory, Reflexes: CN II-XII Intact Psychiatric: Alert, Normal Affect, Normal Mood - Patient Data Lab Results Last 24 hrs: Laboratory Results - last 24 hr 10/09/18 10/09/18 10/09/18 Range/Units 07:54 07:54 07:54 WBC 11.80 H (4.0-11.0) K/uL RBC 3.54 L (4.50-5.90) M/uL Hgb 8.2 L (13.0-17.0) g/dL Hct 29.2 L (38.0-50.0) % MCV 82.5 (80.0-98.0) fL MCH 23.2 L (27.0-32.0) pg MCHC 28.1 L (31.0-37.0) g/dL RDW Std Deviation 54.6 (28.0-62.0) fl RDW Coeff of Tre 18 H (11.0-15.0) % Plt Count 314 (150-400) K/uL MPV 9.20 (7.40-12.00) fL Neut % (Auto) 86.6 H (48.0-80.0) % Lymph % (Auto) 5.3 L (16.0-40.0) % Latimer % (Auto) 7.9 (0.0-15.0) % Eos % (Auto) 0.1 (0.0-7.0) % Baso % (Auto) 0.1 (0.0-1.5) % Neut # (Auto) 10.2 H (1.4-5.7) K/uL Lymph # (Auto) 0.6 (0.6-2.4) K/uL Latimer # (Auto) 0.9 H (0.0-0.8) K/uL Eos # (Auto) 0.0 (0.0-0.7) K/uL Baso # (Auto) 0.0 (0.0-0.1) K/uL Nucleated RBC % 1.0 /100WBC Nucleated RBCs # 0 K/uL INR 1.11 Sodium 137 (136-148) mmol/L Potassium 4.8 (3.5-5.1) mmol/L Chloride 97 L (98-107) mmol/L Carbon Dioxide 30.7 (21.0-32.0) mmol/L BUN 25 H (7.0-18.0) mg/dL Creatinine 1.6 H (0.8-1.3) mg/dL Est Cr Clr Drug Dosing 45.20 mL/min Estimated GFR (MDRD) 44.6 ml/min Glucose 125 H (74-106) mg/dL Calcium 8.7 (8.5-10.1) mg/dL Total Bilirubin 0.4 (0.2-1.0) mg/dL AST 52 H (15-37) IU/L ALT 31 (14-63) IU/L Alkaline Phosphatase 76 (46-116) U/L Troponin I < 0.050 (0.000-0.056) ng/mL Total Protein 7.0 (6.4-8.2) g/dL Albumin 2.2 L (3.4-5.0) g/dL Globulin 4.8 H (2.6-4.0) g/dL Albumin/Globulin Ratio 0.5 L (0.9-1.6) Lipase 99 (73-393) U/L Blood Type Antibody Screen 10/09/18 Range/Units 08:27 WBC (4.0-11.0) K/uL RBC (4.50-5.90) M/uL Hgb (13.0-17.0) g/dL Hct (38.0-50.0) % MCV (80.0-98.0) fL MCH (27.0-32.0) pg MCHC (31.0-37.0) g/dL RDW Std Deviation (28.0-62.0) fl RDW Coeff of Tre (11.0-15.0) % Plt Count (150-400) K/uL MPV (7.40-12.00) fL Neut % (Auto) (48.0-80.0) % Lymph % (Auto) (16.0-40.0) % Latimer % (Auto) (0.0-15.0) % Eos % (Auto) (0.0-7.0) % Baso % (Auto) (0.0-1.5) % Neut # (Auto) (1.4-5.7) K/uL Lymph # (Auto) (0.6-2.4) K/uL Latimer # (Auto) (0.0-0.8) K/uL Eos # (Auto) (0.0-0.7) K/uL Baso # (Auto) (0.0-0.1) K/uL Nucleated RBC % /100WBC Nucleated RBCs # K/uL INR Sodium (136-148) mmol/L Potassium (3.5-5.1) mmol/L Chloride (98-107) mmol/L Carbon Dioxide (21.0-32.0) mmol/L BUN (7.0-18.0) mg/dL Creatinine (0.8-1.3) mg/dL Est Cr Clr Drug Dosing mL/min Estimated GFR (MDRD) ml/min Glucose (74-106) mg/dL Calcium (8.5-10.1) mg/dL Total Bilirubin (0.2-1.0) mg/dL AST (15-37) IU/L ALT (14-63) IU/L Alkaline Phosphatase (46-116) U/L Troponin I (0.000-0.056) ng/mL Total Protein (6.4-8.2) g/dL Albumin (3.4-5.0) g/dL Globulin (2.6-4.0) g/dL Albumin/Globulin Ratio (0.9-1.6) Lipase (73-393) U/L Blood Type A POSITIVE Antibody Screen NEGATIVE Result Diagrams: 10/09/18 07:54 10/09/18 07:54 EKG INTERPRETATION EKG Date: 10/09/18 Rhythm: NSR Rate (Beats/Min): 130 P-Wave: Present QRS: Normal ST-T: Normal QT: Normal EKG Interpretation Comments: appears afib, but p waves present. PACS and artifact noted. - Problem List (1) Acute and chronic respiratory failure SNOMED Code(s): 22707954 ICD Code: J96.20 - ACUTE AND CHR RESP FAILURE, UNSP W HYPOXIA OR HYPERCAPNIA Status: Acute Current Visit: Yes Qualifiers: Respiratory failure complication: hypoxia Qualified Code(s): J96.21 - Acute and chronic respiratory failure with hypoxia (2) Hypoxia SNOMED Code(s): 790147439 ICD Code: R09.02 - HYPOXEMIA Status: Acute Current Visit: Yes (3) Chronic renal insufficiency SNOMED Code(s): 614850714 ICD Code: N18.9 - CHRONIC KIDNEY DISEASE, UNSPECIFIED Status: Chronic Priority: High Current Visit: Yes Qualifiers: Chronic kidney disease stage: stage 3 (moderate) Qualified Code(s): N18.3 - Chronic kidney disease, stage 3 (moderate) (4) History of aspergillosis SNOMED Code(s): 751458748 ICD Code: Z86.19 - PERSONAL HISTORY OF OTHER INFECTIOUS AND PARASITIC DISEASES Status: Chronic Priority: High Current Visit: Yes (5) Afib SNOMED Code(s): 32632881 ICD Code: I48.91 - UNSPECIFIED ATRIAL FIBRILLATION Status: Chronic Priority: High Current Visit: No Qualifiers: Atrial fibrillation type: persistent Qualified Code(s): I48.1 - Persistent atrial fibrillation (6) CKD (chronic kidney disease) SNOMED Code(s): 422952625 ICD Code: N18.9 - CHRONIC KIDNEY DISEASE, UNSPECIFIED Status: Chronic Priority: High Current Visit: No Qualifiers: Chronic kidney disease stage: stage 3 (moderate) Qualified Code(s): N18.3 - Chronic kidney disease, stage 3 (moderate) (7) Cardiomyopathy SNOMED Code(s): 84242610 ICD Code: I42.9 - CARDIOMYOPATHY, UNSPECIFIED Status: Chronic Priority: High Current Visit: No Qualifiers: Cardiomyopathy type: unspecified Qualified Code(s): I42.9 - Cardiomyopathy , unspecified (8) Chronic pain syndrome SNOMED Code(s): 502704035 ICD Code: G89.4 - CHRONIC PAIN SYNDROME Status: Chronic Priority: Medium Current Visit: No (9) History of Clostridium difficile infection SNOMED Code(s): 386744293, 366713305 ICD Code: Z86.19 - PERSONAL HISTORY OF OTHER INFECTIOUS AND PARASITIC DISEASES Status: Chronic Priority: Medium Current Visit: No (10) History of venous thromboembolism SNOMED Code(s): 024000259 ICD Code: Z86.718 - PERSONAL HISTORY OF OTHER VENOUS THROMBOSIS AND EMBOLISM Status: Chronic Current Visit: No (11) Immunocompromised due to corticosteroids SNOMED Code(s): 930653854 ICD Code: D84.8 - OTHER SPECIFIED IMMUNODEFICIENCIES; T38.0X5A - ADVERSE EFFECT OF GLUCOCORT/SYNTH ANALOG, INIT Status: Chronic Priority: Medium Current Visit: No (12) Osteoarthritis SNOMED Code(s): 115902820 ICD Code: M19.90 - UNSPECIFIED OSTEOARTHRITIS, UNSPECIFIED SITE Status: Chronic Current Visit: No Qualifiers: Osteoarthritis location: unspecified site Problem List Initiated/Reviewed/Updated: Yes Orders Last 24hrs: Active Orders 24 hr Category Date Time Status Admission Status [Patient Status] [ADT] Stat ADT 10/09/18 09:10 Active EKG Documentation Completion [RC] STAT Care 10/09/18 07:38 Active RT Aerosol Therapy [RC] ASDIRECTED Care 10/09/18 07:38 Active RT Aerosol Therapy [RC] ASDIRECTED Care 10/09/18 07:48 Active Chest 1V Frontal [CR] Stat Exams 10/09/18 07:38 Taken B-NATRIURETC PEPTD [REF] Stat Lab 10/09/18 07:54 Received CULTURE BLOOD [BC] Stat Lab 10/09/18 09:47 Received CULTURE BLOOD [BC] Stat Lab 10/09/18 10:20 Received UA RFX SHILOH AND CULT IF INDIC [URIN] Stat Lab 10/09/18 07:37 Ordered Sodium Chloride 0.9% [Normal Saline] 1,000 ml Med 10/09/18 07:45 Active IV STAT Blood Culture x2 Reflex Set [OM.PC] Stat Oth 10/09/18 09:01 Ordered Medication Orders Sodium Chloride (Normal Saline) 1,000 mls @ 125 mls/hr IV STAT DANIELITO Last Admin: 10/09/18 08:03 Dose: 125 mls/hr Assessment/Plan Comment:: This 58 year old male admitted with acute on chronic hypoxic respiratory failure secondary to pulmonary aspergillosis 1. Acute on chronic hypoxic respiratory failure: Oxygen therapy, to keep sats 88 % or higher. Continue Solumedrol 125 mg IV Q6h for now. Duonebs every 4 hours and PRN. Encourage IS use and ambulation. Monitor. Does not appear to have infectious component on xray, due to recurrent cdiff infections will hold off on antibiotic therapy. Consider cardiomyopathy and CHF aspect, recent ECHO 2018 revealed EF 55%, but elevate R ventricular pressures of 47.9 mmHg. Will stop IVFs as well and monitor closely. 2. Hx pulmonary aspergillosis: Continue inhalers as well as Fludrocortisone. Hold Prednisone with Solumedrol administration. 3. Paroxysmal Afib on Eliquis: HR elevated in 120s, appears to be ST currently. Will monitor on telemetry. Continue Eliquis. No black or blood stools. 4. Anemia: Slight decrease in hgb from baseline of 9.5. Will monitor. No signs of active bleeding. related to CKD. Does need colonoscopy secondary to colon inflammation noted on previous CTs, has not done yet. 5. CKD: BUN baseline, Cr up from baseline of 1.1. Will monitor for now. renall dose medications 6. Chronic back pain: Stable. Currently taking Dilaudid and Flexeril PRN at home. pain goal is 4-5. Renally dose Gabapentin. Will continue this regimen here. VTE prophylaxis: Eliquis Dispo: 2-3 days pending improvement.
[2018-10-09] MEDS ORDERED: Ondansetron 4 MG/2 ML SDV IVPUSH PRN (11:15)
[2018-10-09] MEDS ORDERED: Acetaminophen 325 MG Tab PO PRN (11:15)
[2018-10-09] MEDS: methylPREDNISolone Sodium Succinate 125 MG/2 ML SDV IVPUSH SCH ×2 (12:36→18:57)
[2018-10-09] MEDS: Albuterol/Ipratropium 3.0-0.5 MG/3 ML Neb Soln NEB SCH ×3 (13:30→21:28)
[2018-10-09] MEDS ORDERED: Furosemide 40 MG/4 ML VIAL IVPUSH ONE (16:10)
[2018-10-09] MEDS ORDERED: Digoxin 500 MCG/2 ML Amp IVPUSH ONE (18:33)
[2018-10-09] MEDS ORDERED: Diltiazem 25 MG/5 ML SDV IVPUSH ONE (18:34)
[2018-10-09] MEDS ORDERED: Digoxin 500 MCG/2 ML Amp ONE (19:30)
[2018-10-09] MEDS: Metoprolol Tartrate 50 MG Tab PO SCH (20:45)
[2018-10-09] MEDS: Gabapentin 100 MG Cap PO SCH (20:45)
[2018-10-09] MEDS: Apixaban 5 MG Tab PO SCH (20:45)
[2018-10-09] MEDS: Diltiazem 25 MG/5 ML SDV IVPUSH PRN (22:22)
[2018-10-09] MEDS: Piperacillin/Tazobactam 3.375 GM in Sodium Chloride 0.9% 50 ML IV SCH (23:37)
[2018-10-10] MEDS: methylPREDNISolone Sodium Succinate 125 MG/2 ML SDV IVPUSH SCH ×2 (01:23→08:33)
[2018-10-10] MEDS: Albuterol/Ipratropium 3.0-0.5 MG/3 ML Neb Soln NEB SCH ×6 (01:23→21:16)
[2018-10-10] MEDS: Diltiazem 25 MG/5 ML SDV IVPUSH PRN (03:57)
[2018-10-10] MEDS: Piperacillin/Tazobactam 3.375 GM in Sodium Chloride 0.9% 50 ML IV SCH ×3 (04:01→18:19)
[2018-10-10 05:56] LABS: CHLORIDE,CL 102 mmol/L (98-107); SODIUM,NA 145 mmol/L (136-148)
[2018-10-10] MEDS ORDERED: Lansoprazole 30 MG Orally Disintegrating Tab.CR PO SCH (07:30)
--- NOTE | 2018-10-10 07:48 | CR ---
EXAM DATE: 10/09/18 PATIENT'S AGE: 58 Patient: VITA ALDRIDGE Facility: [facility] Site Site : 1960 Study: XRay-Chest [id number]/27/2019 8:29:46 AM Ordering Physician: ROXANA YOUSSEF MD Final Report: INDICATION: Pain and shortness of breath. COMPARISON: 04 August 2018. FINDINGS: One AP view. Heart size within normal limits. Pulmonary vascularity is mildly prominent with cephalization, increased slightly from before. No definite pneumonia or pulmonary edema. Mild chronic diffuse interstitial prominence. Surgical clips right hilum. Left shoulder reversed arthroplasty. Impression : No significant change. Chronic mild interstitial prominence. Query mild interstitial lung disease. Dictated by Porter Sanchez MD @ Oct 09 2018 8:52AM Signed by: Porter Sanchez MD @10/09/2018 8:57:32 AM (Electronic Signature) Report Signed by Proxy. [facility] SYSTEMHaroon
--- NOTE | 2018-10-10 08:01 | PCM.PN ---
- General Info Date of Service: 10/10/18 Admission Dx/Problem (Free Text): Admission Diagnosis/Problem Admission Diagnosis/Problem Bacteremia, acute on chronic respiratory failure. Subjective Update: Feeling better today, having some neuropathic pain to feet. Back pain is stable. No chest pain. Dyspnea is much improved. No cough. No fevers overnight. R shoulder still swollen and tender. Functional Status: Reports: Pain Controlled, Tolerating Diet, Ambulating, Urinating - Review of Systems General: Reports: Malaise. Denies: Fever, Weakness HEENT: Reports: No Symptoms. Denies: Headaches, Sore Throat, Visual Changes Pulmonary: Reports: Shortness of Breath (mild, but much improved.). Denies: Cough, Sputum Cardiovascular: Reports: No Symptoms. Denies: Chest Pain, Palpitations, Edema Gastrointestinal: Reports: No Symptoms. Denies: Abdominal Pain, Nausea, Vomiting Genitourinary: Reports: No Symptoms. Denies: Dysuria, Frequency, Burning Musculoskeletal: Reports: No Symptoms Skin: Reports: No Symptoms Neurological: Reports: No Symptoms Psychiatric: Reports: No Symptoms - Patient Data Vitals - Most Recent: Last Vital Signs Temp 97.6 F 10/10/18 04:00 Pulse 123 H 10/10/18 04:00 Resp 20 10/10/18 04:00 BP 142/90 H 10/10/18 04:00 Pulse Ox 95 10/10/18 04:00 Weight - Most Recent: 63.503 kg I&O - Last 24 Hours: Intake & Output 10/09/18 10/10/18 10/10/18 22:59 06:59 14:59 Intake Total 100 200 Output Total 250 2125 Balance -150 -1925 Lab Results Last 24 Hours: Laboratory Results - last 24 hr 10/09/18 10/09/18 10/09/18 Range/Units 07:39 07:54 07:54 WBC 11.80 H (4.0-11.0) K/uL RBC 3.54 L (4.50-5.90) M/uL Hgb 8.2 L (13.0-17.0) g/dL Hct 29.2 L (38.0-50.0) % MCV 82.5 (80.0-98.0) fL MCH 23.2 L (27.0-32.0) pg MCHC 28.1 L (31.0-37.0) g/dL RDW Std Deviation 54.6 (28.0-62.0) fl RDW Coeff of Tre 18 H (11.0-15.0) % Plt Count 314 (150-400) K/uL MPV 9.20 (7.40-12.00) fL Neut % (Auto) 86.6 H (48.0-80.0) % Lymph % (Auto) 5.3 L (16.0-40.0) % [place] % (Auto) 7.9 (0.0-15.0) % Eos % (Auto) 0.1 (0.0-7.0) % Baso % (Auto) 0.1 (0.0-1.5) % Neut # (Auto) 10.2 H (1.4-5.7) K/uL Lymph # (Auto) 0.6 (0.6-2.4) K/uL [place] # (Auto) 0.9 H (0.0-0.8) K/uL Eos # (Auto) 0.0 (0.0-0.7) K/uL Baso # (Auto) 0.0 (0.0-0.1) K/uL Nucleated RBC % 1.0 /100WBC Nucleated RBCs # 0 K/uL INR Lactate (0.20-2.00) mmol/L Sodium 137 (136-148) mmol/L Potassium 4.8 (3.5-5.1) mmol/L Chloride 97 L (98-107) mmol/L Carbon Dioxide 30.7 (21.0-32.0) mmol/L BUN 25 H (7.0-18.0) mg/dL Creatinine 1.6 H (0.8-1.3) mg/dL Est Cr Clr Drug Dosing 45.20 mL/min Estimated GFR (MDRD) 44.6 ml/min Glucose 125 H (74-106) mg/dL Calcium 8.7 (8.5-10.1) mg/dL Total Bilirubin 0.4 (0.2-1.0) mg/dL AST 52 H (15-37) IU/L ALT 31 (14-63) IU/L Alkaline Phosphatase 76 (46-116) U/L Troponin I < 0.050 (0.000-0.056) ng/mL B-Natriuretic Peptide 789 H (<100) PG/ML Total Protein 7.0 (6.4-8.2) g/dL Albumin 2.2 L (3.4-5.0) g/dL Globulin 4.8 H (2.6-4.0) g/dL Albumin/Globulin Ratio 0.5 L (0.9-1.6) Lipase 99 (73-393) U/L Urine Color Urine Appearance Urine pH (5.0-8.0) Ur Specific [place] (1.001-1.035) Urine Protein (NEGATIVE) mg/dL Urine Glucose (UA) (NEGATIVE) mg/dL Urine Ketones (NEGATIVE) mg/dL Urine Occult Blood (NEGATIVE) Urine Nitrite (NEGATIVE) Urine Bilirubin (NEGATIVE) Urine Urobilinogen (<2.0) EU/dL Ur Leukocyte Esterase (NEGATIVE) Urine RBC (0-2/HPF) Urine WBC (0-5/HPF) Ur Epithelial Cells (NONE-FEW) Urine Bacteria (NEGATIVE) Blood Type Antibody Screen 10/09/18 10/09/18 10/09/18 Range/Units 07:54 08:27 14:35 WBC (4.0-11.0) K/uL RBC (4.50-5.90) M/uL Hgb (13.0-17.0) g/dL Hct (38.0-50.0) % MCV (80.0-98.0) fL MCH (27.0-32.0) pg MCHC (31.0-37.0) g/dL RDW Std Deviation (28.0-62.0) fl RDW Coeff of Tre (11.0-15.0) % Plt Count (150-400) K/uL MPV (7.40-12.00) fL Neut % (Auto) (48.0-80.0) % Lymph % (Auto) (16.0-40.0) % [place] % (Auto) (0.0-15.0) % Eos % (Auto) (0.0-7.0) % Baso % (Auto) (0.0-1.5) % Neut # (Auto) (1.4-5.7) K/uL Lymph # (Auto) (0.6-2.4) K/uL [place] # (Auto) (0.0-0.8) K/uL Eos # (Auto) (0.0-0.7) K/uL Baso # (Auto) (0.0-0.1) K/uL Nucleated RBC % /100WBC Nucleated RBCs # K/uL INR 1.11 Lactate (0.20-2.00) mmol/L Sodium (136-148) mmol/L Potassium (3.5-5.1) mmol/L Chloride (98-107) mmol/L Carbon Dioxide (21.0-32.0) mmol/L BUN (7.0-18.0) mg/dL Creatinine (0.8-1.3) mg/dL Est Cr Clr Drug Dosing mL/min Estimated GFR (MDRD) ml/min Glucose (74-106) mg/dL Calcium (8.5-10.1) mg/dL Total Bilirubin (0.2-1.0) mg/dL AST (15-37) IU/L ALT (14-63) IU/L Alkaline Phosphatase (46-116) U/L Troponin I (0.000-0.056) ng/mL B-Natriuretic Peptide (<100) PG/ML Total Protein (6.4-8.2) g/dL Albumin (3.4-5.0) g/dL Globulin (2.6-4.0) g/dL Albumin/Globulin Ratio (0.9-1.6) Lipase (73-393) U/L Urine Color YELLOW Urine Appearance CLEAR Urine pH 6.0 (5.0-8.0) Ur Specific [place] 1.010 (1.001-1.035) Urine Protein TRACE H (NEGATIVE) mg/dL Urine Glucose (UA) 250 H (NEGATIVE) mg/dL Urine Ketones NEGATIVE (NEGATIVE) mg/dL Urine Occult Blood NEGATIVE (NEGATIVE) Urine Nitrite NEGATIVE (NEGATIVE) Urine Bilirubin NEGATIVE (NEGATIVE) Urine Urobilinogen 0.2 (<2.0) EU/dL Ur Leukocyte Esterase NEGATIVE (NEGATIVE) Urine RBC 0-1 (0-2/HPF) Urine WBC 0-1 (0-5/HPF) Ur Epithelial Cells RARE (NONE-FEW) Urine Bacteria RARE (NEGATIVE) Blood Type A POSITIVE Antibody Screen NEGATIVE 10/09/18 10/10/18 10/10/18 Range/Units 22:58 05:28 05:28 WBC 5.59 (4.0-11.0) K/uL RBC 3.26 L (4.50-5.90) M/uL Hgb 7.3 L (13.0-17.0) g/dL Hct 26.2 L (38.0-50.0) % MCV 80.4 (80.0-98.0) fL MCH 22.4 L (27.0-32.0) pg MCHC 27.9 L (31.0-37.0) g/dL RDW Std Deviation 52.5 (28.0-62.0) fl RDW Coeff of Tre 18 H (11.0-15.0) % Plt Count 270 (150-400) K/uL MPV 9.10 (7.40-12.00) fL Neut % (Auto) 89.6 H (48.0-80.0) % Lymph % (Auto) 6.3 L (16.0-40.0) % [place] % (Auto) 4.1 (0.0-15.0) % Eos % (Auto) 0.0 (0.0-7.0) % Baso % (Auto) 0.0 (0.0-1.5) % Neut # (Auto) 5.0 (1.4-5.7) K/uL Lymph # (Auto) 0.4 L (0.6-2.4) K/uL [place] # (Auto) 0.2 (0.0-0.8) K/uL Eos # (Auto) 0.0 (0.0-0.7) K/uL Baso # (Auto) 0.0 (0.0-0.1) K/uL Nucleated RBC % 0.5 /100WBC Nucleated RBCs # 0 K/uL INR Lactate 2.7 H (0.20-2.00) mmol/L Sodium 145 (136-148) mmol/L Potassium 3.5 (3.5-5.1) mmol/L Chloride 102 (98-107) mmol/L Carbon Dioxide 36.0 H (21.0-32.0) mmol/L BUN 26 H (7.0-18.0) mg/dL Creatinine 1.2 (0.8-1.3) mg/dL Est Cr Clr Drug Dosing 60.27 mL/min Estimated GFR (MDRD) > 60.0 ml/min Glucose 191 H (74-106) mg/dL Calcium 8.4 L (8.5-10.1) mg/dL Total Bilirubin (0.2-1.0) mg/dL AST (15-37) IU/L ALT (14-63) IU/L Alkaline Phosphatase (46-116) U/L Troponin I (0.000-0.056) ng/mL B-Natriuretic Peptide (<100) PG/ML Total Protein (6.4-8.2) g/dL Albumin (3.4-5.0) g/dL Globulin (2.6-4.0) g/dL Albumin/Globulin Ratio (0.9-1.6) Lipase (73-393) U/L Urine Color Urine Appearance Urine pH (5.0-8.0) Ur Specific [place] (1.001-1.035) Urine Protein (NEGATIVE) mg/dL Urine Glucose (UA) (NEGATIVE) mg/dL Urine Ketones (NEGATIVE) mg/dL Urine Occult Blood (NEGATIVE) Urine Nitrite (NEGATIVE) Urine Bilirubin (NEGATIVE) Urine Urobilinogen (<2.0) EU/dL Ur Leukocyte Esterase (NEGATIVE) Urine RBC (0-2/HPF) Urine WBC (0-5/HPF) Ur Epithelial Cells (NONE-FEW) Urine Bacteria (NEGATIVE) Blood Type Antibody Screen 10/10/18 Range/Units 05:28 WBC (4.0-11.0) K/uL RBC (4.50-5.90) M/uL Hgb (13.0-17.0) g/dL Hct (38.0-50.0) % MCV (80.0-98.0) fL MCH (27.0-32.0) pg MCHC (31.0-37.0) g/dL RDW Std Deviation (28.0-62.0) fl RDW Coeff of Tre (11.0-15.0) % Plt Count (150-400) K/uL MPV (7.40-12.00) fL Neut % (Auto) (48.0-80.0) % Lymph % (Auto) (16.0-40.0) % [place] % (Auto) (0.0-15.0) % Eos % (Auto) (0.0-7.0) % Baso % (Auto) (0.0-1.5) % Neut # (Auto) (1.4-5.7) K/uL Lymph # (Auto) (0.6-2.4) K/uL [place] # (Auto) (0.0-0.8) K/uL Eos # (Auto) (0.0-0.7) K/uL Baso # (Auto) (0.0-0.1) K/uL Nucleated RBC % /100WBC Nucleated RBCs # K/uL INR Lactate 1.1 (0.20-2.00) mmol/L Sodium (136-148) mmol/L Potassium (3.5-5.1) mmol/L Chloride (98-107) mmol/L Carbon Dioxide (21.0-32.0) mmol/L BUN (7.0-18.0) mg/dL Creatinine (0.8-1.3) mg/dL Est Cr Clr Drug Dosing mL/min Estimated GFR (MDRD) ml/min Glucose (74-106) mg/dL Calcium (8.5-10.1) mg/dL Total Bilirubin (0.2-1.0) mg/dL AST (15-37) IU/L ALT (14-63) IU/L Alkaline Phosphatase (46-116) U/L Troponin I (0.000-0.056) ng/mL B-Natriuretic Peptide (<100) PG/ML Total Protein (6.4-8.2) g/dL Albumin (3.4-5.0) g/dL Globulin (2.6-4.0) g/dL Albumin/Globulin Ratio (0.9-1.6) Lipase (73-393) U/L Urine Color Urine Appearance Urine pH (5.0-8.0) Ur Specific [place] (1.001-1.035) Urine Protein (NEGATIVE) mg/dL Urine Glucose (UA) (NEGATIVE) mg/dL Urine Ketones (NEGATIVE) mg/dL Urine Occult Blood (NEGATIVE) Urine Nitrite (NEGATIVE) Urine Bilirubin (NEGATIVE) Urine Urobilinogen (<2.0) EU/dL Ur Leukocyte Esterase (NEGATIVE) Urine RBC (0-2/HPF) Urine WBC (0-5/HPF) Ur Epithelial Cells (NONE-FEW) Urine Bacteria (NEGATIVE) Blood Type Antibody Screen Steve Results Last 24 Hours: Microbiology 10/09/18 09:47 Anaerobic Blood Culture - Preliminary Blood - Venous Med Orders - Current: Current Medications Acetaminophen (Tylenol) 650 mg PO Q4H PRN PRN Reason: Pain (mild 1-3) Albuterol/Ipratropium (Duoneb 3.0-0.5 Mg/3 Ml) 3 ml NEB Q4HRRT [facility] Last Admin: 10/10/18 06:40 Dose: 3 ml Apixaban (Eliquis) 5 mg PO BID [facility] Last Admin: 10/09/18 20:45 Dose: 5 mg Diltiazem HCl (Cardizem Cd) 240 mg PO QAM [facility] Diltiazem HCl (Diltiazem) 10 mg IVPUSH Q3H PRN PRN Reason: Give for HR>120. Last Admin: 10/10/18 03:57 Dose: 10 mg Fludrocortisone Acetate (Florinef) 0.1 mg PO DAILY [facility] Gabapentin (Neurontin) 700 mg PO BID [facility] Last Admin: 10/09/18 20:45 Dose: 700 mg Hydromorphone HCl (Dilaudid) 4 mg PO Q6H PRN PRN Reason: Pain Piperacillin Sod/Tazobactam (Sod 3.375 gm/ Sodium Chloride) 50 mls @ 100 mls/ hr IV Q6H [facility] Last Admin: 10/10/18 04:01 Dose: 100 mls/hr Sodium Chloride (Normal Saline) 1,000 mls @ 125 mls/hr IV ASDIRECTED [facility] Last Admin: 10/10/18 01:08 Dose: 125 mls/hr Lansoprazole (Prevacid Solutab) 30 mg PO ACBREAKFAST [facility] Methylprednisolone Sodium Succinate (Solu-Medrol) 125 mg IVPUSH Q6H [facility] Last Admin: 10/10/18 01:23 Dose: 125 mg Metoprolol Tartrate (Lopressor) 50 mg PO BID [facility] Last Admin: 10/09/18 20:45 Dose: 50 mg Ondansetron HCl (Zofran) 4 mg IVPUSH Q4H PRN PRN Reason: Nausea Breo Ellipta 200- (25mcg Inhaler) 1 each INH DAILY [facility] Tiotropium [place] [ (Spiriva Respimat]) 2 each INH DAILY [facility] Discontinued Medications Albuterol/Ipratropium (Duoneb 3.0-0.5 Mg/3 Ml) 3 ml NEB ONETIME ONE Stop: 10/09/18 07:39 Last Admin: 10/09/18 07:53 Dose: 3 ml Albuterol/Ipratropium (Duoneb 3.0-0.5 Mg/3 Ml) 3 ml NEB ONETIME ONE Stop: 10/09/18 07:49 Last Admin: 10/09/18 07:53 Dose: 3 ml Aspirin (Aspirin) 324 mg PO ONETIME ONE Stop: 10/09/18 07:38 Last Admin: 10/09/18 08:03 Dose: 324 mg Digoxin (Lanoxin) 250 mcg IVPUSH ONETIME ONE Stop: 10/09/18 18:34 Last Admin: 10/09/18 19:36 Dose: 250 mcg Digoxin (Lanoxin) Confirm Administered Dose 500 mcg .ROUTE .STK-MED ONE Stop: 10/09/18 19:31 Last Admin: 10/09/18 19:43 Dose: Not Given Diltiazem HCl (Diltiazem) 10 mg IVPUSH ONETIME ONE Stop: 10/09/18 18:35 Last Admin: 10/09/18 19:44 Dose: Not Given Furosemide (Lasix) 40 mg IVPUSH NOW ONE Stop: 10/09/18 16:11 Last Admin: 10/09/18 16:37 Dose: 40 mg Sodium Chloride (Normal Saline) 1,000 mls @ 999 mls/hr IV STAT ONE Stop: 10/09/18 08:37 Last Admin: 10/09/18 08:13 Dose: Not Given Sodium Chloride (Normal Saline) 1,000 mls @ 125 mls/hr IV STAT [facility] Last Admin: 10/09/18 08:03 Dose: 125 mls/hr Piperacillin Sod/Tazobactam (Sod 2.25 gm/ Sodium Chloride) 50 mls @ 100 mls/hr IV ONETIME ONE Stop: 10/09/18 09:32 Last Admin: 10/09/18 11:59 Dose: Not Given Vancomycin HCl 1 gm/ Sodium (Chloride) 250 mls @ 250 mls/hr IV ONETIME ONE Stop: 10/09/18 10:02 Last Admin: 10/09/18 10:16 Dose: 250 mls/hr Piperacillin Sod/Tazobactam (Sod 2.25 gm/ Sodium Chloride) 50 mls @ 100 mls/hr IV ONETIME ONE Stop: 10/09/18 11:44 Last Admin: 10/09/18 11:59 Dose: 100 mls/hr Methylprednisolone Sodium Succinate (Solu-Medrol) 125 mg IVPUSH ONETIME ONE Stop: 10/09/18 07:39 Last Admin: 10/09/18 08:03 Dose: 125 mg - Exam Quality Assessment: Supplemental Oxygen, DVT Prophylaxis General: Alert, Oriented, Cooperative Lungs: Clear to Auscultation. No: Normal Respiratory Effort (mild dyspnea noted with speech. lying flat, no increase dyspnea with this), Wheezing Cardiovascular: Irregular Rhythm, Tachycardia GI/Abdominal Exam: Normal Bowel Sounds, Soft, Non-Tender, No Organomegaly, No Mass Extremities: Normal Inspection, Normal Range of Motion, Non-Tender, Pedal Edema (+1 BLE) Wound/Incisions: Healing Well, Erythema (minimal erythema to R shoulder with some pain and swelling. Unchanged from yesterday. Reports this has been going on for a couple weeks. No erythema to L foot wounds.) Neurological: No New Focal Deficit Psy/Mental Status: Alert, Normal Affect, Normal Mood - Problem List & Annotations (1) Gram-negative bacteremia SNOMED Code(s): 800698038898 Code(s): R78.81 - BACTEREMIA Status: Acute Current Visit: Yes (2) Acute and chronic respiratory failure SNOMED Code(s): 75651885 Code(s): J96.20 - ACUTE AND CHR RESP FAILURE, UNSP W HYPOXIA OR HYPERCAPNIA Status: Acute Current Visit: Yes Qualifiers: Respiratory failure complication: hypoxia Qualified Code(s): J96.21 - Acute and chronic respiratory failure with hypoxia (3) Hypoxia SNOMED Code(s): 848217781 Code(s): R09.02 - HYPOXEMIA Status: Acute Current Visit: Yes (4) Chronic renal insufficiency SNOMED Code(s): 784372679 Code(s): N18.9 - CHRONIC KIDNEY DISEASE, UNSPECIFIED Status: Chronic Priority: High Current Visit: Yes Qualifiers: Chronic kidney disease stage: stage 3 (moderate) Qualified Code(s): N18.3 - Chronic kidney disease, stage 3 (moderate) (5) History of aspergillosis SNOMED Code(s): 280886367 Code(s): Z86.19 - PERSONAL HISTORY OF OTHER INFECTIOUS AND PARASITIC DISEASES Status: Chronic Priority: High Current Visit: Yes (6) Afib SNOMED Code(s): 88451982 Code(s): I48.91 - UNSPECIFIED ATRIAL FIBRILLATION Status: Chronic Priority: High Current Visit: No Qualifiers: Atrial fibrillation type: persistent Qualified Code(s): I48.1 - Persistent atrial fibrillation (7) CKD (chronic kidney disease) SNOMED Code(s): 273673373 Code(s): N18.9 - CHRONIC KIDNEY DISEASE, UNSPECIFIED Status: Chronic Priority: High Current Visit: No Qualifiers: Chronic kidney disease stage: stage 3 (moderate) Qualified Code(s): N18.3 - Chronic kidney disease, stage 3 (moderate) (8) Cardiomyopathy SNOMED Code(s): 17737286 Code(s): I42.9 - CARDIOMYOPATHY, UNSPECIFIED Status: Chronic Priority: High Current Visit: No Qualifiers: Cardiomyopathy type: unspecified Qualified Code(s): I42.9 - Cardiomyopathy , unspecified (9) Chronic pain syndrome SNOMED Code(s): 914380761 Code(s): G89.4 - CHRONIC PAIN SYNDROME Status: Chronic Priority: Medium Current Visit: No (10) History of Clostridium difficile infection SNOMED Code(s): 059008975, 527180120 Code(s): Z86.19 - PERSONAL HISTORY OF OTHER INFECTIOUS AND PARASITIC DISEASES Status: Chronic Priority: Medium Current Visit: No (11) History of venous thromboembolism SNOMED Code(s): 440381880 Code(s): Z86.718 - PERSONAL HISTORY OF OTHER VENOUS THROMBOSIS AND EMBOLISM Status: Chronic Current Visit: No (12) Immunocompromised due to corticosteroids SNOMED Code(s): 783968067 Code(s): D84.8 - OTHER SPECIFIED IMMUNODEFICIENCIES; T38.0X5A - ADVERSE EFFECT OF GLUCOCORT/SYNTH ANALOG, INIT Status: Chronic Priority: Medium Current Visit: No (13) Osteoarthritis SNOMED Code(s): 545338360 Code(s): M19.90 - UNSPECIFIED OSTEOARTHRITIS, UNSPECIFIED SITE Status: Chronic Current Visit: No Qualifiers: Osteoarthritis location: unspecified site - Problem List Review Problem List Initiated/Reviewed/Updated: Yes - My Orders Last 24 Hours: My Active Orders 10/09/18 11:15 Oxygen Therapy [RC] PRN Up With Assistance [RC] ASDIRECTED VTE/DVT Education [RC] PER UNIT ROUTINE Vital Signs [RC] Q4H Respiratory Care Assess and Treatment [CONS] Routine CULTURE SPUTUM + SMEAR [RM] Stat Acetaminophen [Tylenol] 650 mg PO Q4H PRN Ondansetron [Zofran] 4 mg IVPUSH Q4H PRN Resuscitation Status Routine 10/09/18 11:16 Intake and Output [RC] Q12H 10/09/18 11:17 RT Aerosol Therapy [RC] ASDIRECTED 10/09/18 11:25 HYDROmorphone [Dilaudid] 4 mg PO Q6H PRN 10/09/18 13:30 methylPREDNISolone Sod Succ [Solu-MEDROL] 125 mg IVPUSH Q6H 10/09/18 14:00 Albuterol/Ipratropium [DuoNeb 3.0-0.5 MG/3 ML] 3 ml NEB Q4HRRT 10/09/18 14:43 Dressing Change [Wound Care] [RC] DAILY 10/09/18 14:44 Heel Protector Application [OM.PC] Routine 10/09/18 21:00 Apixaban [Eliquis] 5 mg PO BID Gabapentin [Neurontin] 700 mg PO BID Metoprolol Tartrate [Lopressor] 50 mg PO BID 10/09/18 Lunch 2 Gram Sodium Diet [DIET] 10/10/18 07:30 Lansoprazole [Prevacid Solutab] 30 mg PO ACBREAKFAST 10/10/18 09:00 Diltiazem [Cardizem CD] 240 mg PO QAM Fludrocortisone [Florinef] 0.1 mg PO DAILY Patient's Own Medication [Ptom] 1 each INH DAILY Patient's Own Medication [Ptom] 2 each INH DAILY 10/11/18 05:11 BASIC METABOLIC PANEL,BMP [CHEM] AM CBC WITH AUTO DIFF [HEME] AM 10/12/18 05:11 BASIC METABOLIC PANEL,BMP [CHEM] AM CBC WITH AUTO DIFF [HEME] AM - Plan Plan:: This 58 year old male admitted with acute on chronic hypoxic respiratory failure secondary to pulmonary aspergillosis 1. Gram negative [place] bacteremia: Recurrent. Zosyn started when BC returned. Will repeat BC tomorrow, await STEVE of blood cultures. Will obtain MRI of L foot , lumbar spine and R shoulder to evaluate for abscess. Once report back will speak with Dr Akbar, Infectious disease who saw him in [place] in July when he had E coli bacteremia, which was suspected to be from UTI. He was treated with Augmentin PO on discharge. 2. Acute on chronic hypoxic respiratory failure: Improving, requiring less oxygen. Oxygen therapy, to keep sats 88% or higher. Continue Solumedrol 125 mg IV but decrease to Q8h due to improvement. Duonebs every 4 hours and PRN. Encourage IS use and ambulation. Monitor. 2. Hx pulmonary aspergillosis: Continue inhalers as well as Fludrocortisone. Hold Prednisone with Solumedrol administration. 3. Paroxysmal Afib on Eliquis: Will increase Metoprolol to 75 mg BID, continue Diltiazem. Monitor on telemetry. Continue Eliquis. No black or bloody stools. 4. Anemia: With hydration, hgb dipped to 7.3 today. Will transfuse 2 units due to bacteremia. No signs of active bleeding. Likely related to CKD. Does need colonoscopy secondary to colon inflammation noted on previous CTs, has not done yet. 5. CKD: Improved to near baseline. BUN 25 and Cr 1.2. Will monitor for now. 6. Chronic back pain: Stable. Currently taking Dilaudid and Flexeril PRN at home. pain goal is 4-5. Restart home dose of Gabapentin. Will continue this regimen here. VTE prophylaxis: Eliquis Dispo: 2-3 days pending improvement.
[2018-10-10] MEDS: Gabapentin 100 MG Cap PO SCH (08:30)
[2018-10-10] MEDS: HYDROmorphone 2 MG Tab PO PRN ×2 (08:31→17:24)
[2018-10-10] MEDS: Apixaban 5 MG Tab PO SCH ×2 (08:32→20:04)
[2018-10-10] MEDS: Metoprolol Tartrate 50 MG Tab PO SCH (08:32)
[2018-10-10] MEDS ORDERED: Tiotropium Bromide [Spiriva Respimat] INH SCH (09:00)
[2018-10-10] MEDS ORDERED: BREO ELLIPTA INH SCH (09:00)
[2018-10-10] MEDS ORDERED: Fludrocortisone 0.1 MG Tab PO SCH (09:00)
[2018-10-10] MEDS ORDERED: Diltiazem 120 MG Cap.CD PO SCH (09:00)
[2018-10-10] MEDS ORDERED: Metoprolol Tartrate 25 MG Tab PO ONE (09:05)
[2018-10-10] MEDS ORDERED: Gadobenate Dimeglumine 529 MG/ML 20 ML SDV IVPUSH STA (10:21)
[2018-10-10] MEDS ORDERED: Furosemide 20 MG/2 ML VIAL IVPUSH ONE (11:51)
[2018-10-10] MEDS ORDERED: methylPREDNISolone Sodium Succinate 125 MG/2 ML SDV IVPUSH SCH (16:30)
--- NOTE | 2018-10-10 16:41 | MR ---
HISTORY: Bacteremia. Joint pain. Swelling. TECHNIQUE: MRI right shoulder without and with IV contrast. COMPARISON: None. FINDINGS: [id number] motion artifact on several sequences. Rotator cuff: Full-thickness tear of the full AP dimension of the supraspinatus tendon and majority of the infraspinatus tendon. There is severely thinned infraspinatus tendon remnant. Severe tendinosis and high-grade tearing of a majority of the subscapularis tendon. Teres minor tendon is intact. Severe atrophy of the supraspinatus and infraspinatus muscles. Moderate atrophy of the subscapularis muscle. Teres minor muscle mass is maintained. Acromioclavicular joint and coracoacromial arch: Advanced arthrosis of the AC joint. Coracoclavicular appears intact. Remodeling of the undersurface of the acromion. Biceps-labral complex: High-grade tearing of the long head biceps tendon in the rotator interval. Long head biceps tendon remnant is present in the bicipital groove. Extensive degenerative labral tearing. Glenohumeral joint: Diffuse full thickness glenoid and humeral head cartilage loss with subchondral sclerosis, periarticular marrow edema, and subchondral cysts. Large glenohumeral joint effusion communicating with the subacromial-subdeltoid bursa. Extensive intermediate signal debris throughout the subacromial-subdeltoid bursal space. Synovitis and debris in the glenohumeral joint. 13 mm joint body between the coracoid and distal clavicle. Bones and soft tissues: No osteomyelitis. No fracture. Extensive heterogeneous soft tissue edema throughout the shoulder including within musculature and along the fascial planes. Subcutaneous edema around the shoulder. No definite fluid collection separate from the subacromial-subdeltoid bursa. IMPRESSION: 1. Extensive soft tissue edema throughout the shoulder including muscular edema which may be reactive edema or myositis. 2. No osteomyelitis. 3. Large quantity of subacromial-subdeltoid bursal fluid with extensive synovitis or debris. Subacromial-subdeltoid bursa communicates with the glenohumeral joint through the full thickness rotator cuff defect and with the AC joint. Fluid may be sterile or infected. 4. Full-thickness tearing of the supraspinatus tendon and portions of the infraspinatus and subscapularis tendons. Severe tendinosis of the residual subscapularis tendon. Residual infraspinatus tendon is severely thinned. Severe atrophy of the supraspinatus and infraspinatus muscles. Moderate atrophy of subscapularis muscle. 6. Advanced degenerative arthrosis of the glenohumeral joint. 7. High-grade tear of the long head biceps tendon. 8. Advanced arthrosis of the AC joint. Dictated by Rod Martinez MD @ Oct 10 2018 4:25PM Signed by Dr. Rod Martinez @ Oct 10 2018 4:39PM
[2018-10-10] MEDS ORDERED: Furosemide 40 MG Tab PO ONE (19:28)
--- NOTE | 2018-10-10 19:38 | PCM.DCSUM1 ---
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 He presents to the ED today with complaints of shortness of breath that has progressively worsened at home over the last 5-7 days with wheezing. He has been taking his Prednisone and Fludorcortisone as prescribed along with his inhalers. He had a mild leukocytosis noted, 11,800, hgb 8.2. Platelets 314,000. BUN 25 Cr 1.6. CXR revealed no significant changes, mild prominence of pulmonary vasculature, but no definite CHF or consolidation. He was treated with oxygen therapy for sats 78% on arrival. He was given Duonebs, Solumedrol IV and Vancomycin and Zosyn. BC obtained as well. He was admitted with acute on chronic hypoxic respiratory failure secondary to hx of pulmonary aspergillosis. He had blood cultures grow out gram negative rods for which he was kept on Zosyn. He was complaining of right shoulder pain and back pain. He does have good leg strength but has been bed bound due to lower back pain. MRI of the lumbar spine reported at L2-3 changes of discitis osteomyelitis with anterior epidural phlegmon and spondylotic changes contributing to advanced spinal canal stenosis. There is paraspinous/retroperitoneal inflammation with 12 milimeter left psoas abscess. After fluid resuscitation his lactic acid normalized but Hgb dropped to 7.3 this morning. There was no signs of active bleeding. 2 units of pRBC were ordered. I spoke with Dr. Miller at [facility] who has accepted the patient. Shoulder and foot MRI report are pending at this time. - Discharge Plan Home Medications: Home Meds Apixaban [Eliquis] 5 mg PO BID tablet 07/21/18 [Rx] Metoprolol Tartrate [Lopressor] 50 mg PO BID tablet 07/21/18 [Rx] Gabapentin [Neurontin] 1,600 mg PO BID 08/05/18 [History] Albuterol Sulfate 2.5 mg IH Q4HRRT PRN 10/09/18 [History] Diltiazem [Cardizem CD] 240 mg PO QAM 10/09/18 [History] Fludrocortisone [Fludrocortisone Acetate] 0.1 mg PO DAILY 10/09/18 [History] Fluticasone/Vilanterol [Breo Ellipta 200-25 Mcg INH] 1 each IH DAILY 10/09/18 [ History] HYDROmorphone [Dilaudid] 4 mg PO Q6H PRN 10/09/18 [History] Lansoprazole [Prevacid] 30 mg PO ACBREAKFAST 10/09/18 [History] Tiotropium [place] [Spiriva Respimat] 2 inh IH DAILY 10/09/18 [History] predniSONE 20 mg PO QAM 10/09/18 [History] Forms: ED Department Discharge Referrals: Connor Melchor MD [Primary Care Provider] - - Patient Data Vitals - Most Recent: Last Vital Signs Temp 35.9 C 10/10/18 17:10 Pulse 108 H 10/10/18 17:10 Resp 16 10/10/18 17:10 BP 136/77 10/10/18 17:10 Pulse Ox 96 10/10/18 17:10 Weight - Most Recent: 63.503 kg I&O - Last 24 hours: Intake & Output 10/10/18 10/10/18 10/10/18 06:59 14:59 22:59 Intake Total 200 819 Output Total 2125 1400 Balance -1925 -581 Lab Results - Last 24 hrs: Laboratory Results - last 24 hr 10/09/18 10/09/18 10/10/18 Range/Units 08:27 22:58 05:28 WBC 5.59 (4.0-11.0) K/uL RBC 3.26 L (4.50-5.90) M/uL Hgb 7.3 L (13.0-17.0) g/dL Hct 26.2 L (38.0-50.0) % MCV 80.4 (80.0-98.0) fL MCH 22.4 L (27.0-32.0) pg MCHC 27.9 L (31.0-37.0) g/dL RDW Std Deviation 52.5 (28.0-62.0) fl RDW Coeff of Tre 18 H (11.0-15.0) % Plt Count 270 (150-400) K/uL MPV 9.10 (7.40-12.00) fL Neut % (Auto) 89.6 H (48.0-80.0) % Lymph % (Auto) 6.3 L (16.0-40.0) % [place] % (Auto) 4.1 (0.0-15.0) % Eos % (Auto) 0.0 (0.0-7.0) % Baso % (Auto) 0.0 (0.0-1.5) % Neut # (Auto) 5.0 (1.4-5.7) K/uL Lymph # (Auto) 0.4 L (0.6-2.4) K/uL [place] # (Auto) 0.2 (0.0-0.8) K/uL Eos # (Auto) 0.0 (0.0-0.7) K/uL Baso # (Auto) 0.0 (0.0-0.1) K/uL Nucleated RBC % 0.5 /100WBC Nucleated RBCs # 0 K/uL Lactate 2.7 H (0.20-2.00) mmol/L Sodium (136-148) mmol/L Potassium (3.5-5.1) mmol/L Chloride (98-107) mmol/L Carbon Dioxide (21.0-32.0) mmol/L BUN (7.0-18.0) mg/dL Creatinine (0.8-1.3) mg/dL Est Cr Clr Drug Dosing mL/min Estimated GFR (MDRD) ml/min Glucose (74-106) mg/dL Calcium (8.5-10.1) mg/dL Blood Type A POSITIVE Antibody Screen NEGATIVE Crossmatch See Detail 10/10/18 10/10/18 Range/Units 05:28 05:28 WBC (4.0-11.0) K/uL RBC (4.50-5.90) M/uL Hgb (13.0-17.0) g/dL Hct (38.0-50.0) % MCV (80.0-98.0) fL MCH (27.0-32.0) pg MCHC (31.0-37.0) g/dL RDW Std Deviation (28.0-62.0) fl RDW Coeff of Tre (11.0-15.0) % Plt Count (150-400) K/uL MPV (7.40-12.00) fL Neut % (Auto) (48.0-80.0) % Lymph % (Auto) (16.0-40.0) % [place] % (Auto) (0.0-15.0) % Eos % (Auto) (0.0-7.0) % Baso % (Auto) (0.0-1.5) % Neut # (Auto) (1.4-5.7) K/uL Lymph # (Auto) (0.6-2.4) K/uL [place] # (Auto) (0.0-0.8) K/uL Eos # (Auto) (0.0-0.7) K/uL Baso # (Auto) (0.0-0.1) K/uL Nucleated RBC % /100WBC Nucleated RBCs # K/uL Lactate 1.1 (0.20-2.00) mmol/L Sodium 145 (136-148) mmol/L Potassium 3.5 (3.5-5.1) mmol/L Chloride 102 (98-107) mmol/L Carbon Dioxide 36.0 H (21.0-32.0) mmol/L BUN 26 H (7.0-18.0) mg/dL Creatinine 1.2 (0.8-1.3) mg/dL Est Cr Clr Drug Dosing 60.27 mL/min Estimated GFR (MDRD) > 60.0 ml/min Glucose 191 H (74-106) mg/dL Calcium 8.4 L (8.5-10.1) mg/dL Blood Type Antibody Screen Crossmatch SHILOH Results - Last 24 hrs: Microbiology 10/09/18 10:20 Aerobic Blood Culture - Preliminary Blood - Venous - Lab Draw Anaerobic Blood Culture - Preliminary NO GROWTH AFTER 1 DAY 10/09/18 09:47 Anaerobic Blood Culture - Preliminary Blood - Venous Med Orders - Current: Current Medications Acetaminophen (Tylenol) 650 mg PO Q4H PRN PRN Reason: Pain (mild 1-3) Albuterol/Ipratropium (Duoneb 3.0-0.5 Mg/3 Ml) 3 ml NEB Q4HRRT [facility] Last Admin: 10/10/18 19:04 Dose: 3 ml Apixaban (Eliquis) 5 mg PO BID [facility] Last Admin: 10/10/18 08:32 Dose: 5 mg Diltiazem HCl (Cardizem Cd) 240 mg PO QAM [facility] Last Admin: 10/10/18 08:31 Dose: 240 mg Diltiazem HCl (Diltiazem) 10 mg IVPUSH Q3H PRN PRN Reason: Give for HR>120. Last Admin: 10/10/18 03:57 Dose: 10 mg Fludrocortisone Acetate (Florinef) 0.1 mg PO DAILY [facility] Last Admin: 10/10/18 08:31 Dose: 0.1 mg Furosemide (Lasix) 40 mg PO ONETIME ONE Stop: 10/10/18 19:29 Gabapentin (Neurontin) 1,600 mg PO BID [facility] Hydromorphone HCl (Dilaudid) 4 mg PO Q6H PRN PRN Reason: Pain Last Admin: 10/10/18 17:24 Dose: 4 mg Piperacillin Sod/Tazobactam (Sod 3.375 gm/ Sodium Chloride) 50 mls @ 100 mls/ hr IV Q6H [facility] Last Admin: 10/10/18 18:19 Dose: 100 mls/hr Lansoprazole (Prevacid Solutab) 30 mg PO ACBREAKFAST [facility] Last Admin: 10/10/18 08:30 Dose: 30 mg Methylprednisolone Sodium Succinate (Solu-Medrol) 125 mg IVPUSH Q8H [facility] Last Admin: 10/10/18 18:10 Dose: 125 mg Metoprolol Tartrate (Lopressor) 75 mg PO BID [facility] Ondansetron HCl (Zofran) 4 mg IVPUSH Q4H PRN PRN Reason: Nausea Breo Ellipta 200- (25mcg Inhaler) 1 each INH DAILY [facility] Last Admin: 10/10/18 12:23 Dose: Not Given Tiotropium [place] [ (Spiriva Respimat]) 2 each INH DAILY [facility] Last Admin: 10/10/18 12:23 Dose: Not Given Discontinued Medications Albuterol/Ipratropium (Duoneb 3.0-0.5 Mg/3 Ml) 3 ml NEB ONETIME ONE Stop: 10/09/18 07:39 Last Admin: 10/09/18 07:53 Dose: 3 ml Albuterol/Ipratropium (Duoneb 3.0-0.5 Mg/3 Ml) 3 ml NEB ONETIME ONE Stop: 10/09/18 07:49 Last Admin: 10/09/18 07:53 Dose: 3 ml Aspirin (Aspirin) 324 mg PO ONETIME ONE Stop: 10/09/18 07:38 Last Admin: 10/09/18 08:03 Dose: 324 mg Digoxin (Lanoxin) 250 mcg IVPUSH ONETIME ONE Stop: 10/09/18 18:34 Last Admin: 10/09/18 19:36 Dose: 250 mcg Digoxin (Lanoxin) Confirm Administered Dose 500 mcg .ROUTE .STK-MED ONE Stop: 10/09/18 19:31 Last Admin: 10/09/18 19:43 Dose: Not Given Diltiazem HCl (Diltiazem) 10 mg IVPUSH ONETIME ONE Stop: 10/09/18 18:35 Last Admin: 10/09/18 19:44 Dose: Not Given Furosemide (Lasix) 40 mg IVPUSH NOW ONE Stop: 10/09/18 16:11 Last Admin: 10/09/18 16:37 Dose: 40 mg Furosemide (Lasix) 20 mg IVPUSH ONCALL ONE Stop: 10/10/18 11:52 Last Admin: 10/10/18 12:30 Dose: 20 mg Gabapentin (Neurontin) 700 mg PO BID DANIELITO Last Admin: 10/10/18 08:30 Dose: 700 mg Gadobenate Dimeglumine (Multihance) 20 ml IVPUSH ONETIME STA Stop: 10/10/18 10:22 Last Admin: 10/10/18 11:02 Dose: 10 ml Sodium Chloride (Normal Saline) 1,000 mls @ 999 mls/hr IV STAT ONE Stop: 10/09/18 08:37 Last Admin: 10/09/18 08:13 Dose: Not Given Sodium Chloride (Normal Saline) 1,000 mls @ 125 mls/hr IV STAT DANIELITO Last Admin: 10/09/18 08:03 Dose: 125 mls/hr Piperacillin Sod/Tazobactam (Sod 2.25 gm/ Sodium Chloride) 50 mls @ 100 mls/hr IV ONETIME ONE Stop: 10/09/18 09:32 Last Admin: 10/09/18 11:59 Dose: Not Given Vancomycin HCl 1 gm/ Sodium (Chloride) 250 mls @ 250 mls/hr IV ONETIME ONE Stop: 10/09/18 10:02 Last Admin: 10/09/18 10:16 Dose: 250 mls/hr Piperacillin Sod/Tazobactam (Sod 2.25 gm/ Sodium Chloride) 50 mls @ 100 mls/hr IV ONETIME ONE Stop: 10/09/18 11:44 Last Admin: 10/09/18 11:59 Dose: 100 mls/hr Sodium Chloride (Normal Saline) 1,000 mls @ 125 mls/hr IV ASDIRECTED [facility] Last Admin: 10/10/18 01:08 Dose: 125 mls/hr Methylprednisolone Sodium Succinate (Solu-Medrol) 125 mg IVPUSH ONETIME ONE Stop: 10/09/18 07:39 Last Admin: 10/09/18 08:03 Dose: 125 mg Methylprednisolone Sodium Succinate (Solu-Medrol) 125 mg IVPUSH Q6H [facility] Last Admin: 10/10/18 08:33 Dose: 125 mg Metoprolol Tartrate (Lopressor) 50 mg PO BID [facility] Last Admin: 10/10/18 08:32 Dose: 50 mg Metoprolol Tartrate (Lopressor) 25 mg PO ONETIME ONE Stop: 10/10/18 09:06 Last Admin: 10/10/18 10:44 Dose: 25 mg
[2018-10-10] MEDS ORDERED: Gabapentin 800 MG Tab PO SCH (21:00)
[2018-10-10] MEDS ORDERED: Metoprolol Tartrate 50 MG Tab PO SCH (21:00)
[2018-10-10 21:56] VITALS: BP 120/82
--- NOTE | 2018-10-11 18:18 | MR ---
EXAM DATE: 10/09/18 PATIENT'S AGE: 58 Patient: VITA ALDRIDGE Facility: [facility] Site . Site : 1960 Study: MRI-Extremity Right [id number]/28/2019 4:35:06 PM Ordering Physician: AINSLEY RAMOS Final Report: HISTORY: Bacteremia. Joint pain. Swelling. TECHNIQUE: MRI right foot without and with IV contrast. COMPARISON: None. FINDINGS: Atrophy of the foot musculature with intramuscular edema like signal changes. Edema like infiltration of subcutaneous fat of the dorsum of the foot. Approximately 14 x 16 x 4 mm superficial fluid collection in the dorsal forefoot centered over the 2nd and 3rd metatarsals (short axis series 801, image 31, post-contrast sagittal series 1601 image 18). Subcentimeter focus of susceptibility artifact in the superficial plantar soft tissues of the proximal forefoot at the level of the 4th metatarsal base. No osteomyelitis. Healed fracture deformity of the 3rd metatarsal. No acute fracture. No marrow replacing process. Mild degenerative arthrosis of the medial naviculocuneiform joint. Joint spaces otherwise maintained. Small ankle joint effusion. Small subtalar joint effusion. Lisfranc ligament appears intact. No subluxation. Physiologic quantity of fluid in the tendon sheaths. Flexor and extensor tendons are intact. Plantar aponeurosis is intact. Tendinosis and possible low- grade longitudinal intrasubstance tearing of the distal Achilles tendon. IMPRESSION: 1. Soft tissue edema or cellulitis in the dorsum of the forefoot with a 14 x 16 x 4 mm superficial fluid collection, possibly an abscess. 2. No osteomyelitis. 3. Subcentimeter focus of susceptibility artifact in the superficial plantar soft tissues at the level of the 4th metatarsal base may be a metallic foreign body, less likely a focus of soft tissue gas. 4. Effusions of the ankle and subtalar joints. 5. Denervation changes. Dictated by Rod Martinez MD @ Oct 10 2018 4:39PM Signed by: Rod Martinez MD @10/10/2018 4:49:32 PM (Electronic Signature) Report Signed by Proxy. [facility] HOSPITALHaroon
--- NOTE | 2018-10-11 18:21 | MR ---
EXAM DATE: 10/09/18 PATIENT'S AGE: 58 Patient: VITA ALDRIDGE Facility: [facility] Site . Site : 1960 Study: MRI-Spine W/ and W/O Cont [id number]/28/2019 4:31:53 PM Ordering Physician: AINSLEY RAMOS Final Report: INDICATION: Bacteremia TECHNIQUE: Lumbar spine MRI with contrast. The following sequences were obtained: Sagittal T1, T2 weighted and T2 weighted STIR sequences. Axial T1 and T2 weighted sequences. Axial and Sagittal T1 weighted post-contrast sequences. Gadolinium based contrast agent was administered. COMPARISON: None FINDINGS: Five lumbar type vertebral bodies. At the L2-3 level, there is diffuse prominent disc fluid, endplate erosions and enhancement throughout the adjacent endplate vertebral body marrow and posterior elements. Enhancement and edema extends into the paraspinous soft tissues, including the retroperitoneal musculature. There is a small, 13 millimeter fluid collection within the left psoas muscle. Within the anterior epidural space there is enhancing material abutting the posterior L2 and L3 vertebral bodies and disc, measuring up to 5 millimeters in thickness. This results in anterior thecal sac effacement, and when combined with ligament flavum thickening and facet hypertrophic change results in moderately advanced spinal canal stenosis. Inflammation involves the bilateral neural foramina, encasing the exiting L2 nerve roots as well. T12 compression fracture with advanced vertebral body height loss. L1 vertebral body compression fracture with moderate vertebral body height loss and a large inferior endplate Schmorl`s node. L3 vertebral body compression fracture with moderate vertebral body height loss. Mild retropulsion of the posterior superior vertebral body cortices and the spinal canal, resulting in mild spinal canal narrowing. No pathologic enhancement within the lumbar spinal column or spinal canal. Lower cord and conus signal are normal, with the conus terminating at the L1 vertebral body level. Findings at individual levels as follows: Interspaces: At T10-11, mild disc height loss and T11 superior endplate Schmorl`s node. At T11-12 and T12-L1, interspace ballooning. At L1-2, mild disc height loss and trace retrolisthesis. L2-3 level described above. At L3-4, mild disc height loss and trace retrolisthesis. At L4-5, moderate disc height loss, disc desiccation and 5 millimeters anterolisthesis. At L5-S1, mild disc height loss. Spinal canal and neural foramina: Imaged lower thoracic levels: No spinal canal or neural foraminal narrowing. T12-L1: No spinal canal or neural foraminal narrowing. L1-2: Mild disc bulge. Mild bilateral neural foraminal narrowing. Mild spinal canal narrowing. L2-3: Findings described above. L3-4: Moderate disc bulge. Bilateral facet hypertrophic change. Mild spinal canal narrowing. Mild bilateral neural foraminal narrowing. L4-5: 6 millimeter right foraminal protrusion and bilateral facet hypertrophic change. Advanced right neural foraminal stenosis and mild left neural foraminal stenosis. L5-S1: Mild disc bulge. Mild bilateral neural foraminal narrowing. No spinal canal narrowing. Imaged SI joints: Within normal limits. Imaged sacrum: Within normal limits. IMPRESSION: 1. At L2-3, changes of discitis osteomyelitis with anterior epidural phlegmon and spondylotic change contributing to advanced spinal canal stenosis. There is paraspinous/retroperitoneal inflammation with 12 millimeter left psoas abscess. L3 vertebral body compression fracture is age indeterminate. 2. At L4-5, advanced right neural foraminal stenosis with impingement of the exiting L4 nerve root. 3. Chronic T12 and L1 compression fractures with advanced vertebral body height loss at T12 and minimal retropulsion of osseous fragments into the spinal canal. Dictated by Kanu Parekh MD @ Oct 10 2018 5:09PM ----- ADDENDUM ----- FINDINGS: Findings communicated to nurse Roxi Turner 5:30 p.m., 10/10/2018. Dictated by Kanu Parekh MD @ Oct 10 2018 6:08PM Signed by: Kanu Parekh MD @10/10/2018 6:09:41 PM (Electronic Signature) Report Signed by Proxy. MARIO
== END 2018-10-10 22:07 | DRG 189 ==
LOC: MW.ED 07:33 → MW.MS 09:23
PROVIDERS: ADMIT Internal Medicine; ATTEND Internal Medicine
DX: J96.21 Acute and chronic respiratory failure with hypoxia (principal); J44.1 Chronic obstructive pulmonary disease with (acute) exacerbation; I42.9 Cardiomyopathy, unspecified; D84.8 Other specified immunodeficiencies; I13.0 Hypertensive heart and chronic kidney disease with heart failure and stage 1 through stage 4 chronic kidney disease, or unspecified chronic kidney disease; G89.4 Chronic pain syndrome; I48.0 Paroxysmal atrial fibrillation; I50.9 Heart failure, unspecified; J45.909 Unspecified asthma, uncomplicated; K21.9 Gastro-esophageal reflux disease without esophagitis; Z96.649 Presence of unspecified artificial hip joint; M19.91 Primary osteoarthritis, unspecified site; M81.0 Age-related osteoporosis without current pathological fracture; F32.9 Major depressive disorder, single episode, unspecified; F41.9 Anxiety disorder, unspecified; G62.9 Polyneuropathy, unspecified; N18.3 Chronic kidney disease, stage 3 (moderate); M54.5 Low back pain; D63.1 Anemia in chronic kidney disease; M10.9 Gout, unspecified; Z79.01 Long term (current) use of anticoagulants; Z88.1 Allergy status to other antibiotic agents; Z86.718 Personal history of other venous thrombosis and embolism; Z86.73 Personal history of transient ischemic attack (TIA), and cerebral infarction without residual deficits; Z79.899 Other long term (current) drug therapy; Z89.9 Acquired absence of limb, unspecified; I25.2 Old myocardial infarction; Z98.49 Cataract extraction status, unspecified eye; Z79.52 Long term (current) use of systemic steroids
CPT/HCPCS: 36415; 36430; 71045; 71045-26; 72158; 72158-26; 73223-26-RT; 73223-RT; 73720-26-LT; 73720-LT; 80048; 80053; 81001; 83605; 83690; 83880; 84484; 85025; 85610; 86850; 86900; 86901; 87040; 87077; 87186; 93005; 94640; 96361; 96374; 96375; 99285; 99285-25; A9270-GY; A9577; J1160; J1940; J2543; J2930; J3370; J3490; J7040; J7050; J7620-GY; P9016

== ENCOUNTER 2018-11-08 12:57 | Emergency (ER) | payer MEDICARE, OTHER ==
[2018-11-08 13:09] VITALS: BP 113/86
[2018-11-08] MEDS ORDERED: Albuterol/Ipratropium 3.0-0.5 MG/3 ML Neb Soln NEB ONE (13:15)
--- NOTE | 2018-11-08 13:19 | EDM.PDOC ---
ED HPI GENERAL MEDICAL PROBLEM - General Chief Complaint: Respiratory Problem Stated Complaint: SHORTNESS OF BREATH Time Seen by Provider: 11/08/18 13:00 - History of Present Illness INITIAL COMMENTS - FREE TEXT/NARRATIVE: HISTORY AND PHYSICAL: History of present illness: Patient's 58-year-old white male with history of chronic lung disease in the form of aspergillosis with home nebulizers and supplemental oxygen who presents with shortness of breath he states he's had this for 1 day and it's slightly increased versus his baseline he denies chest pain. Review of systems: As per history of present illness and below otherwise all systems reviewed and negative. Past medical history: As per history of present illness and as reviewed below otherwise noncontributory. Surgical history: As per history of present illness and as reviewed below otherwise noncontributory. Social history: No reported history of drug or alcohol abuse. Family history: As per history of present illness and as reviewed below otherwise noncontributory. Physical exam: HEENT: Atraumatic, normocephalic, pupils reactive, negative for conjunctival pallor or scleral icterus, mucous membranes moist, throat clear, neck supple, nontender, trachea midline. Lungs: Coarse, breath sounds equal bilaterally, chest nontender. Heart: S1S2, regular, negative for clicks, rubs, or JVD. Abdomen: Soft, nondistended, nontender. Negative for masses or hepatosplenomegaly. Negative for costovertebral tenderness. Pelvis: Stable nontender. Genitourinary: Deferred. Rectal: Deferred. Extremities: Atraumatic, negative for cords or calf pain. Neurovascular unremarkable. Neuro: Awake, alert, oriented. Cranial nerves II through XII unremarkable. Cerebellum unremarkable. Motor and sensory unremarkable throughout. Exam nonfocal. Diagnostics: CBC CMP troponin PT/INR chest x-ray EKG Therapeutics: Albuterol ipratropium nebulizer IV O2 monitor Impression: #1 dyspnea #2 history of aspergillosis Definitive disposition and diagnosis as appropriate pending reevaluation and review of above. Back Pain Score (Numeric/FACES): 8 - Related Data Allergies Allergy/AdvReac Type Severity Reaction Status Date / Time itraconazole [From Sporanox] Allergy Unknown Confusion Verified 11/08/18 13:00 levofloxacin [From Levaquin] Allergy Unknown Other Verified 11/08/18 13:00 Home Meds: Home Meds Apixaban [Eliquis] 5 mg PO BID tablet 07/21/18 [Rx] Metoprolol Tartrate [Lopressor] 50 mg PO BID tablet 07/21/18 [Rx] Gabapentin [Neurontin] 1,600 mg PO BID 08/05/18 [History] Albuterol Sulfate 2.5 mg IH Q4HRRT PRN 10/09/18 [History] Diltiazem [Cardizem CD] 240 mg PO QAM 10/09/18 [History] Fludrocortisone [Fludrocortisone Acetate] 0.1 mg PO DAILY 10/09/18 [History] Fluticasone/Vilanterol [Breo Ellipta 200-25 Mcg INH] 1 each IH DAILY 10/09/18 [ History] HYDROmorphone [Dilaudid] 4 mg PO Q6H PRN 10/09/18 [History] Lansoprazole [Prevacid] 30 mg PO ACBREAKFAST 10/09/18 [History] Tiotropium [place] [Spiriva Respimat] 2 inh IH DAILY 10/09/18 [History] predniSONE 20 mg PO QAM 10/09/18 [History] Furosemide 20 mg PO DAILY 11/08/18 [History] Potassium 99 mg PO 11/08/18 [History] cefTRIAXone [Rocephin in Dextrose,Iso-Osm 1 GM/50 ML] 1 gm IV 11/08/18 [History] Past Medical History HEENT History: Reports: Cataract Other HEENT History: dental fillings due to caries; recent tooth fracture Cardiovascular History: Reports: Afib, Cardiomyopathy, Heart Failure, Hypertension, [place] Other Cardiovascular History: Heart attack April 2010 Respiratory History: Reports: Asthma, Bronchitis, Recurrent, PE, Pneumonia, Recurrent, Other (See Below) Other Respiratory History: Chronic pulmonary aspergillosis, 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 No explantation- -they apparently just treated him with IV abx for months. - Past Surgical History Head Surgeries/Procedures: Reports: None HEENT Surgical History: Reports: Cataract Surgery Cardiovascular Surgical History: Reports: None Respiratory Surgical History: Reports: Lung Resection Other Respiratory Surgeries/Procedures: intubated last Feb 2018 and transfered to [facility] Surgical History: Reports: Colonoscopy Male Surgical History: Reports: None Endocrine Surgical History: Reports: None Neurological Surgical History: Reports: None Musculoskeletal Surgical History: Reports: Amputation, Shoulder Surgery, Other ( See Below) Other Musculoskeletal Surgeries/Procedures:: L shoulder and left hip surgery Oncologic Surgical History: Reports: None Dermatological Surgical History: Reports: None Social & Family History - Family History Family Medical History: Noncontributory - Tobacco Use Smoking Status *Q: Never Smoker Second Hand Smoke Exposure: No - Caffeine Use Caffeine Use: Reports: Coffee - Recreational Drug Use Recreational Drug Use: No - Living Situation & Occupation Living situation: Reports: Single, with Family (sons) Occupation: Disabled ED ROS GENERAL - Review of Systems Review Of Systems: ROS reveals no pertinent complaints other than HPI. ED EXAM, GENERAL - Physical Exam Exam: See Below (See dictation) Course - Vital Signs Last Recorded V/S: Last Vital Signs Temp 36.4 C 11/08/18 13:05 Pulse 88 11/08/18 13:05 Resp 20 11/08/18 13:05 BP 113/86 11/08/18 13:05 Pulse Ox 94 L 11/08/18 13:05 - Orders/Labs/Meds Orders: Active Orders 24 hr Category Date Time Status EKG Documentation Completion [RC] STAT Care 11/08/18 13:14 Active Pulse Oximetry [RC] ASDIRECTED Care 11/08/18 13:13 Active RT Aerosol Therapy [RC] ASDIRECTED Care 11/08/18 13:15 Active Labs: Laboratory Tests 11/08/18 11/08/18 11/08/18 Range/Units 13:03 13:03 13:03 WBC 15.38 H (4.0-11.0) K/uL RBC 4.71 (4.50-5.90) M/uL Hgb 11.3 L (13.0-17.0) g/dL Hct 40.5 (38.0-50.0) % MCV 86.0 (80.0-98.0) fL MCH 24.0 L (27.0-32.0) pg MCHC 27.9 L (31.0-37.0) g/dL RDW Std Deviation 61.1 (28.0-62.0) fl RDW Coeff of Tre 20 H (11.0-15.0) % Plt Count 292 (150-400) K/uL MPV 9.80 (7.40-12.00) fL Add Manual Diff YES Neutrophils % (Manual) 68 (48.0-80.0) % Lymphocytes % (Manual) 19 (16.0-40.0) % Monocytes % (Manual) 11 (0.0-15.0) % Basophils % (Manual) 1 (0.0-1.5) % Myelocytes % 1 % Nucleated RBC % 0.0 /100WBC Absolute Seg Neuts 10.5 H (1.4-5.7) Lymphocytes # (Manual) 2.9 H (0.6-2.4) Monocytes # (Manual) 1.7 H (0.0-0.8) Basophils # (Manual) 0.2 H (0.0-0.1) Absolute Myelocytes 0.2 Nucleated RBCs # 0 K/uL Hypochromasia 1+ SLIGHT Poikilocytosis 1+ SLIGHT Target Cells 1+ SLIGHT Ovalocytes 1+ SLIGHT INR 1.01 Sodium 143 (136-148) mmol/L Potassium 3.6 (3.5-5.1) mmol/L Chloride 102 (98-107) mmol/L Carbon Dioxide 34.3 H (21.0-32.0) mmol/L BUN 26 H (7.0-18.0) mg/dL Creatinine 1.1 (0.8-1.3) mg/dL Est Cr Clr Drug Dosing 66.06 mL/min Estimated GFR (MDRD) > 60.0 ml/min Glucose 130 H (74-106) mg/dL Calcium 8.9 (8.5-10.1) mg/dL Total Bilirubin 0.3 (0.2-1.0) mg/dL AST 32 (15-37) IU/L ALT 23 (14-63) IU/L Alkaline Phosphatase 87 (46-116) U/L Troponin I 0.091 H* (0.000-0.056) ng/mL B-Natriuretic Peptide (<100) PG/ML Total Protein 7.0 (6.4-8.2) g/dL Albumin 2.9 L (3.4-5.0) g/dL Globulin 4.1 H (2.6-4.0) g/dL Albumin/Globulin Ratio 0.7 L (0.9-1.6) Urine Color Urine Appearance Urine pH (5.0-8.0) Ur Specific [place] (1.001-1.035) Urine Protein (NEGATIVE) mg/dL Urine Glucose (UA) (NEGATIVE) mg/dL Urine Ketones (NEGATIVE) mg/dL Urine Occult Blood (NEGATIVE) Urine Nitrite (NEGATIVE) Urine Bilirubin (NEGATIVE) Urine Urobilinogen (<2.0) EU/dL Ur Leukocyte Esterase (NEGATIVE) 11/08/18 11/08/18 Range/Units 13:03 14:13 WBC (4.0-11.0) K/uL RBC (4.50-5.90) M/uL Hgb (13.0-17.0) g/dL Hct (38.0-50.0) % MCV (80.0-98.0) fL MCH (27.0-32.0) pg MCHC (31.0-37.0) g/dL RDW Std Deviation (28.0-62.0) fl RDW Coeff of Tre (11.0-15.0) % Plt Count (150-400) K/uL MPV (7.40-12.00) fL Add Manual Diff Neutrophils % (Manual) (48.0-80.0) % Lymphocytes % (Manual) (16.0-40.0) % Monocytes % (Manual) (0.0-15.0) % Basophils % (Manual) (0.0-1.5) % Myelocytes % % Nucleated RBC % /100WBC Absolute Seg Neuts (1.4-5.7) Lymphocytes # (Manual) (0.6-2.4) Monocytes # (Manual) (0.0-0.8) Basophils # (Manual) (0.0-0.1) Absolute Myelocytes Nucleated RBCs # K/uL Hypochromasia Poikilocytosis Target Cells Ovalocytes INR Sodium (136-148) mmol/L Potassium (3.5-5.1) mmol/L Chloride (98-107) mmol/L Carbon Dioxide (21.0-32.0) mmol/L BUN (7.0-18.0) mg/dL Creatinine (0.8-1.3) mg/dL Est Cr Clr Drug Dosing mL/min Estimated GFR (MDRD) ml/min Glucose (74-106) mg/dL Calcium (8.5-10.1) mg/dL Total Bilirubin (0.2-1.0) mg/dL AST (15-37) IU/L ALT (14-63) IU/L Alkaline Phosphatase (46-116) U/L Troponin I (0.000-0.056) ng/mL B-Natriuretic Peptide 1210 H (<100) PG/ML Total Protein (6.4-8.2) g/dL Albumin (3.4-5.0) g/dL Globulin (2.6-4.0) g/dL Albumin/Globulin Ratio (0.9-1.6) Urine Color YELLOW Urine Appearance CLEAR Urine pH 7.5 (5.0-8.0) Ur Specific [place] 1.020 (1.001-1.035) Urine Protein NEGATIVE (NEGATIVE) mg/dL Urine Glucose (UA) NEGATIVE (NEGATIVE) mg/dL Urine Ketones NEGATIVE (NEGATIVE) mg/dL Urine Occult Blood NEGATIVE (NEGATIVE) Urine Nitrite NEGATIVE (NEGATIVE) Urine Bilirubin NEGATIVE (NEGATIVE) Urine Urobilinogen 0.2 (<2.0) EU/dL Ur Leukocyte Esterase NEGATIVE (NEGATIVE) Meds: Medications Discontinued Medications Generic Name Dose Route Start Last Admin Trade Name Freq PRN Reason Stop Dose Admin Albuterol/Ipratropium 3 ml 11/08/18 13:15 11/08/18 13:29 Duoneb 3.0-0.5 Mg/3 Ml NEB 11/08/18 13:16 3 ml ONETIME ONE Administration Furosemide 40 mg 11/08/18 14:31 11/08/18 15:06 Lasix IVPUSH 11/08/18 14:32 40 mg NOW ONE Administration Departure - Departure Time of Disposition: 15:25 Disposition: Home, Self-Care 01 Condition: Good Clinical Impression: Aspergillosis, Encounter for medical screening examination - Discharge Information Referrals: PCP,Unknown [Primary Care Provider] - Forms: ED Department Discharge Additional Instructions: The following information is given to patients seen in the emergency department who are being discharged to home. This information is to outline your options for follow-up care. We provide all patients seen in our emergency department with a follow-up referral. The need for follow-up, as well as the timing and circumstances, are variable depending upon the specifics of your emergency department visit. If you don't have a primary care physician on staff, we will provide you with a referral. We always advise you to contact your personal physician following an emergency department visit to inform them of the circumstance of the visit and for follow-up with them and/or the need for any referrals to a consulting specialist. The emergency department will also refer you to a specialist when appropriate. This referral assures that you have the opportunity for followup care with a specialist. All of these measure are taken in an effort to provide you with optimal care, which includes your followup. Under all circumstances we always encourage you to contact your private physician who remains a resource for coordinating your care. When calling for followup care, please make the office aware that this follow-up is from your recent emergency room visit. If for any reason you are refused follow-up, please contact the [facility] emergency department at and asked to speak to the emergency department charge nurse. Continue current medications follow-up private medical doctor as discussed return as needed discussed - My Orders Last 24 Hours: My Active Orders 11/08/18 13:13 Pulse Oximetry [RC] ASDIRECTED 11/08/18 13:14 EKG Documentation Completion [RC] STAT 11/08/18 13:15 RT Aerosol Therapy [RC] ASDIRECTED - Assessment/Plan Last 24 Hours: My Active Orders 11/08/18 13:13 Pulse Oximetry [RC] ASDIRECTED 11/08/18 13:14 EKG Documentation Completion [RC] STAT 11/08/18 13:15 RT Aerosol Therapy [RC] ASDIRECTED
[2018-11-08 13:54] LABS: CHLORIDE,CL 102 mmol/L (98-107); SODIUM,NA 143 mmol/L (136-148)
[2018-11-08] MEDS ORDERED: Furosemide 40 MG/4 ML VIAL IVPUSH ONE (14:31)
--- NOTE | 2018-11-08 14:43 | CR ---
EXAMINATION: Portable chest radiograph. HISTORY: Shortness of breath. Comparison: Radiograph dated 10/09/2018, CT dated 07/18/2018. FINDINGS: The trachea is midline. The cardiomediastinal silhouette is stable. Chronic interstitial prominence is noted. Vague pulmonary opacities project over the apices. Left glenohumeral hardware noted. Advanced degenerative changes in the right shoulder. IMPRESSION: 1. Vague nodular opacities projecting over the apices, correlation with a CT may be beneficial to rule out pulmonary nodularity. 2. Otherwise no definite acute cardiopulmonary findings.
== END 2018-11-08 16:17 | disposition home or self-care (01) ==
LOC: MW.ED 12:57
DX: B44.9 Aspergillosis, unspecified (principal); I48.91 Unspecified atrial fibrillation; I11.0 Hypertensive heart disease with heart failure; I50.9 Heart failure, unspecified; I25.2 Old myocardial infarction; Z88.8 Allergy status to other drugs, medicaments and biological substances; Z79.899 Other long term (current) drug therapy; Z79.01 Long term (current) use of anticoagulants
CPT/HCPCS: 36415; 71045; 80053; 81003; 83880; 84484; 85025; 85610; 93005; 94640; 96374; 99285; J1940; J7620-GY

== ENCOUNTER 2019-03-15 18:57 | Emergency (ER) | payer MEDICARE, OTHER ==
[2019-03-15] MEDS ORDERED: Albuterol/Ipratropium 3.0-0.5 MG/3 ML Neb Soln NEB ONE (19:08)
[2019-03-15] MEDS ORDERED: methylPREDNISolone Sodium Succinate 125 MG/2 ML SDV IVPUSH ONE (19:09)
--- NOTE | 2019-03-15 19:13 | EDM.PDOC ---
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 Patient states the shortness of breath is worse with activity and he does not have shortness of breath at rest. Patient states in the shortness of breath he has no other associated symptoms. Patient states he's been using his home nebulizers as prescribed to him without relief of symptoms. Patient denies any other symptoms or concerns. Patient denies fever, chills, chest pain, or cough. Denies headache, neck stiff ness, change in vision, syncope, or near syncope. Denies nausea, vomiting, abdominal pain, diarrhea, constipation, or dysuria. Has not noted any blood in urine or stool. Patient has been eating and drinking appropriately. Review of systems: As per history of present illness and below otherwise all systems reviewed and negative. Past medical history: As per history of present illness and as reviewed below otherwise noncontributory. Surgical history: As per history of present illness and as reviewed below otherwise noncontributory. Social history: See social history for further information Family history: As per history of present illness and as reviewed below otherwise noncontributory. Physical exam: General: Patient is alert, oriented, and in no acute distress. Patient laying comfortably on exam table but does appear chronically ill. HEENT: Atraumatic, normocephalic, pupils equal and reactive bilaterally, negative for conjunctival pallor or scleral icterus, mucous membranes moist, TMs normal bilaterally, throat clear, neck supple, nontender, trachea midline. No drooling or trismus noted. No meningeal signs. No hot potato voice noted. Lungs: Clear to auscultation, breath sounds equal bilaterally, chest nontender. Heart: S1S2, regular rate and rhythm without overt murmur Abdomen: Soft, nondistended, nontender. Negative for masses or hepatosplenomegaly. Negative for costovertebral tenderness. Pelvis: Stable nontender. Genitourinary: Deferred. Rectal: Deferred. Skin: Intact, warm, dry. No lesions or rashes noted. Extremities: Atraumatic, negative for cords or calf pain. Neurovascular unremarkable. Neuro: Awake, alert, oriented. Cranial nerves II through XII unremarkable. Cerebellum unremarkable. Motor and sensory unremarkable throughout. Exam nonfocal. Notes: Dr. Cade verbally involved in patient care. Dr. Hassan, [facility], consulted on patient and accepting of transfer. EMS was arranged. Voices understanding and is agreeable to plan of care. Denies any further questions or concerns at this time. Diagnostics: CBC, CMP, UA, EKG, chest x-ray, troponin, PT/INR Therapeutics: DuoNeb, Solu-Medrol, calcium chloride, bicarbonate, D50, insulin, Kayexalate Impression: Acute renal failure Hyperkalemia Plan: 1. Transfer to Dr. Hassan at [facility] in [place] via EMS Definitive disposition and diagnosis as appropriate pending reevaluation and review of above. - Related Data Allergies Allergy/AdvReac Type Severity Reaction Status Date / Time itraconazole [From Sporanox] Allergy Unknown Confusion Verified 03/15/19 19:23 levofloxacin [From Levaquin] Allergy Unknown Other Verified 03/15/19 19:23 Home Meds: Home Meds Apixaban [Eliquis] 5 mg PO BID tablet 07/21/18 [Rx] Metoprolol Tartrate [Lopressor] 50 mg PO BID tablet 07/21/18 [Rx] Gabapentin [Neurontin] 800 mg PO QID 08/05/18 [History] Albuterol Sulfate 2.5 mg IH Q4HRRT PRN 10/09/18 [History] Diltiazem [Cardizem CD] 240 mg PO QAM 10/09/18 [History] Fluticasone/Vilanterol [Breo Ellipta 200-25 Mcg INH] 1 each IH DAILY 10/09/18 [ History] HYDROmorphone [Dilaudid] 4 mg PO Q6H PRN 10/09/18 [History] Lansoprazole [Prevacid] 30 mg PO ACBREAKFAST 10/09/18 [History] Tiotropium [place] [Spiriva Respimat] 2 inh IH DAILY 10/09/18 [History] predniSONE 20 mg PO QAM 10/09/18 [History] Furosemide 20 mg PO DAILY 06/26/19 [History] Calcium Carbonate/Vitamin D3 [Calcium 600 + Vit D 400 Softgl] 1 tab PO DAILY [History] Lisinopril 2.5 mg PO DAILY 03/15/19 [History] Midodrine 5 mg PO BID 03/15/19 [History] Past Medical History HEENT History: Reports: Cataract Other HEENT History: dental fillings due to caries; recent tooth fracture Cardiovascular History: Reports: Afib, Cardiomyopathy, Heart Failure, Hypertension, DC Other Cardiovascular History: Heart attack April 2010 Respiratory History: Reports: Asthma, Bronchitis, Recurrent, PE, Pneumonia, Recurrent, Other (See Below) Other Respiratory History: Chronic pulmonary aspergillosis, 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 No explantation- -they apparently just treated him with IV abx for months. - Past Surgical History Head Surgeries/Procedures: Reports: None HEENT Surgical History: Reports: Cataract Surgery Cardiovascular Surgical History: Reports: None Respiratory Surgical History: Reports: Lung Resection Other Respiratory Surgeries/Procedures: intubated last Feb 2018 and transfered to [place] [facility] Surgical History: Reports: Colonoscopy Male Surgical History: Reports: None Endocrine Surgical History: Reports: None Neurological Surgical History: Reports: None Musculoskeletal Surgical History: Reports: Amputation, Shoulder Surgery, Other ( See Below) Other Musculoskeletal Surgeries/Procedures:: L shoulder and left hip surgery Oncologic Surgical History: Reports: None Dermatological Surgical History: Reports: None Social & Family History - Family History Family Medical History: Noncontributory - Caffeine Use Caffeine Use: Reports: Coffee - Living Situation & Occupation Living situation: Reports: Single, with Family (sons) Occupation: Disabled ED ROS GENERAL - Review of Systems Review Of Systems: ROS reveals no pertinent complaints other than HPI. ED EXAM, GENERAL - Physical Exam Exam: See Below (See dictation) Course - Vital Signs Last Recorded V/S: Last Vital Signs Temp 97.6 F 03/15/19 21:19 Pulse 71 03/15/19 21:19 Resp 13 03/15/19 21:19 BP 97/53 L 03/15/19 21:19 Pulse Ox 97 03/15/19 21:19 - Orders/Labs/Meds Orders: Active Orders 24 hr Category Date Time Status EKG Documentation Completion [RC] STAT Care 03/15/19 19:00 Active RT Aerosol Therapy [RC] ASDIRECTED Care 03/15/19 19:08 Active UA RFX SHILOH AND CULT IF INDIC [URIN] Stat Lab 03/15/19 19:00 Ordered Sodium Chloride 0.9% [Normal Saline] 1,000 ml Med 03/15/19 21:30 Active IV ASDIRECTED Medication Orders Sodium Chloride (Normal Saline) 1,000 mls @ 100 mls/hr IV ASDIRECTED DANIELITO Labs: Laboratory Tests 03/15/19 03/15/19 03/15/19 Range/Units 19:15 19:15 20:38 WBC 11.75 H (4.0-11.0) K/uL RBC 3.94 L (4.50-5.90) M/uL Hgb 9.3 L (13.0-17.0) g/dL Hct 31.8 L (38.0-50.0) % MCV 80.7 (80.0-98.0) fL MCH 23.6 L (27.0-32.0) pg MCHC 29.2 L (31.0-37.0) g/dL RDW Std Deviation 55.0 (28.0-62.0) fl RDW Coeff of Tre 19 H (11.0-15.0) % Plt Count 333 (150-400) K/uL MPV 9.10 (7.40-12.00) fL Add Manual Diff YES Neutrophils % (Manual) 81 H (48.0-80.0) % Band Neutrophils % 3 % Lymphocytes % (Manual) 10 L (16.0-40.0) % Monocytes % (Manual) 6 (0.0-15.0) % Nucleated RBC % 0.0 /100WBC Absolute Seg Neuts 9.5 H (1.4-5.7) Band Neutrophils # 0.4 Lymphocytes # (Manual) 1.2 (0.6-2.4) Monocytes # (Manual) 0.7 (0.0-0.8) Nucleated RBCs # 0 K/uL INR 1.01 Sodium 132 L (136-148) mmol/L Potassium 7.0 H (3.5-5.1) mmol/L Chloride 97 L (98-107) mmol/L Carbon Dioxide 24.7 (21.0-32.0) mmol/L BUN 58 H (7.0-18.0) mg/dL Creatinine 4.1 H (0.8-1.3) mg/dL Est Cr Clr Drug Dosing TNP Estimated GFR (MDRD) 15.0 ml/min Glucose 144 H (74-106) mg/dL Calcium 8.9 (8.5-10.1) mg/dL Total Bilirubin 0.3 (0.2-1.0) mg/dL AST 20 (15-37) IU/L ALT 21 (14-63) IU/L Alkaline Phosphatase 53 (46-116) U/L Troponin I < 0.050 (0.000-0.056) ng/mL Total Protein 7.8 (6.4-8.2) g/dL Albumin 2.6 L (3.4-5.0) g/dL Globulin 5.2 H (2.6-4.0) g/dL Albumin/Globulin Ratio 0.5 L (0.9-1.6) Meds: Medications Generic Name Dose Route Start Last Admin Trade Name Freq PRN Reason Stop Dose Admin Sodium Chloride 1,000 mls @ 100 mls/hr 03/15/19 21:30 Normal Saline IV ASDIRECTED DANIELITO Discontinued Medications Generic Name Dose Route Start Last Admin Trade Name Freq PRN Reason Stop Dose Admin Albuterol/Ipratropium 3 ml 03/15/19 19:08 03/15/19 19:20 Duoneb 3.0-0.5 Mg/3 Ml NEB 03/15/19 19:09 3 ml ONETIME ONE Administration Calcium Chloride 1 gm 03/15/19 21:20 03/15/19 21:44 Calcium Chloride 10% IVPUSH 03/15/19 21:21 1 gm ONETIME ONE Administration Dextrose/Water 50 ml 03/15/19 21:20 Dextrose 50% In Water IVPUSH 03/15/19 21:21 ONETIME ONE Insulin Human Regular 10 unit 03/15/19 21:20 Novolin R IVPUSH 03/15/19 21:21 ONETIME ONE Protocol Methylprednisolone Sodium Succinate 125 mg 03/15/19 19:09 03/15/19 19:38 Solu-Medrol IVPUSH 03/15/19 19:10 125 mg ONETIME ONE Administration Sodium Bicarbonate 50 meq 03/15/19 21:20 03/15/19 21:50 Sodium Bicarbonate 8.4% IVPUSH 03/15/19 21:21 50 meq ONETIME ONE Administration Sodium Polystyrene Sulfonate 15 gm 03/15/19 21:24 Kayexalate PO 03/15/19 21:25 ONETIME ONE Departure - Departure Time of Disposition: 21:28 Disposition: DC/Tfer to [facility] 02 Clinical Impression: Hyperkalemia Acute renal failure Qualifiers: Acute renal failure type: unspecified Qualified Code(s): N17.9 - Acute kidney failure, unspecified - Discharge Information Forms: ED Department Discharge - My Orders Last 24 Hours: My Active Orders 03/15/19 19:00 EKG Documentation Completion [RC] STAT UA RFX SHILOH AND CULT IF INDIC [URIN] Stat 03/15/19 19:08 RT Aerosol Therapy [RC] ASDIRECTED 03/15/19 21:30 Sodium Chloride 0.9% [Normal Saline] 1,000 ml IV ASDIRECTED - Assessment/Plan Last 24 Hours: My Active Orders 03/15/19 19:00 EKG Documentation Completion [RC] STAT UA RFX SHILOH AND CULT IF INDIC [URIN] Stat 03/15/19 19:08 RT Aerosol Therapy [RC] ASDIRECTED 03/15/19 21:30 Sodium Chloride 0.9% [Normal Saline] 1,000 ml IV ASDIRECTED
--- NOTE | 2019-03-15 20:34 | CR ---
Indication: Shortness of breath Technique: Two-view chest Comparison: November 08, 2018 Findings: Normal cardiomediastinal silhouette. Surgical clips in the right hilum. Clear lungs and pleural spaces. No pneumothorax. Status post reverse left shoulder arthroplasty. Severe degenerative changes in the right glenohumeral joint. IVC filter seen in the upper abdomen. Impression: No acute abnormality. Dictated by Pratima Ozuna MD @ Mar 15 2019 8:29PM Signed by Dr. Pratima Ozuna @ Mar 15 2019 8:31PM
[2019-03-15 21:06] LABS: BLOOD UREA NITROGEN,BUN 58 mg/dL (7.0-18.0); CARBON DIOXIDE,CO2 24.7 mmol/L (21.0-32.0); CHLORIDE,CL 97 mmol/L (98-107); GLUCOSE RANDOM 144 mg/dL (74-106); SODIUM,NA 132 mmol/L (136-148)
[2019-03-15] MEDS ORDERED: Sodium Bicarbonate 8.4% 50 MEQ/50 ML Syringe IVPUSH ONE (21:20)
[2019-03-15] MEDS ORDERED: Insulin Regular, Human 100 Units/ML 10 ML Vial IVPUSH ONE (21:20)
[2019-03-15] MEDS ORDERED: Calcium Chloride 10% 1 GM/10 ML Syringe IVPUSH ONE (21:20)
[2019-03-15] MEDS ORDERED: 50% Dextrose in Water 50 ML Syringe IVPUSH ONE (21:20)
[2019-03-15] MEDS ORDERED: Sodium Polystyrene Sulfonate 15 GM/60 ML Susp 60 ML Bot PO ONE (21:24)
[2019-03-15] MEDS ORDERED: Sodium Chloride 0.9% 1,000 ML IV SCH (21:30)
[2019-03-15 22:56] VITALS: BP 111/62; PULSE 78
== END 2019-03-15 23:48 ==
LOC: MW.ED 18:57
DX: E87.5 Hyperkalemia (principal); N17.9 Acute kidney failure, unspecified; I25.2 Old myocardial infarction; I48.91 Unspecified atrial fibrillation; I11.0 Hypertensive heart disease with heart failure; I50.9 Heart failure, unspecified; J45.909 Unspecified asthma, uncomplicated; Z88.1 Allergy status to other antibiotic agents; Z88.8 Allergy status to other drugs, medicaments and biological substances; Z79.01 Long term (current) use of anticoagulants; Z79.899 Other long term (current) drug therapy; Z86.73 Personal history of transient ischemic attack (TIA), and cerebral infarction without residual deficits; Z79.51 Long term (current) use of inhaled steroids
CPT/HCPCS: 36415; 71046; 80053; 81003; 84484; 85025; 85610; 93005; 96361; 96374; 96375; 99285; A9270; J2930; J7040; J7060; J1815-GY; J7620-GY

== ENCOUNTER 2019-06-14 10:26 | Observation (INO) | payer MEDICARE, OTHER ==
--- NOTE | 2019-06-14 10:51 | EDM.PDOC ---
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 coli bacteremia and C. difficile colitis. He was discharged on 05/30/2019 from [facility], in which he was being treated for what sounds like a septic joint of the right shoulder that required debridement and now currently receiving daily Rocephin infusions (will have a 6 month course of abx). Over the past 3 days he has had increased shortness of breath, sore throat and generally feeling unwell. Reports while traveling back from [facility] he was "suck in the airport for 3 days" and concerned he was exposed to various ill persons. Upon arrival the patient's oxygen saturation is 84% on room air. He states his symptoms feel similar to his past ER visit which required admission for IV Lasix. Patient denies any fever, chills, headache, change in vision, syncope or near syncope. Denies any chest pain, back pain or cough. Denies any abdominal pain, nausea, vomiting, diarrhea, constipation or dysuria. Has not noted any blood in urine or stool. Patient has been eating and drinking appropriately. Review of systems: As per history of present illness and below otherwise all systems reviewed and negative. Past medical history: As per history of present illness and as reviewed below otherwise noncontributory. Surgical history: As per history of present illness and as reviewed below otherwise noncontributory. Social history: See social history for further information Family history: As per history of present illness and as reviewed below otherwise noncontributory. Physical exam: General: Well-developed and well-nourished 59-year-old male. Alert and oriented. Nontoxic-appearing and in no acute distress. HEENT: Atraumatic, normocephalic, pupils equal and reactive bilaterally, negative for conjunctival pallor or scleral icterus, mucous membranes moist, TMs normal bilaterally, throat clear, neck supple, nontender, trachea midline. No drooling or trismus noted. No meningeal signs. No hot potato voice noted. Lungs: Clear to auscultation, breath sounds equal bilaterally, chest nontender. Heart: Irregular rate and rhythm without overt murmur Abdomen: Soft, nondistended, nontender. Negative for masses or hepatosplenomegaly. Negative for costovertebral tenderness. Pelvis: Stable nontender. Skin: Intact dressing noted to right shoulder. PICC line left upper arm. Healing abrasion (I&D site) to left heel, no surrounding soft tissue swelling or erythema. Remaining skin is intact, warm, dry. No lesions or rashes noted. Extremities: Limited ROM of right shoulder due to recent surgery. Otherwise moves all other extremities per self without difficulty or deficits, negative for cords or calf pain. No distal edema noted. Neurovascular unremarkable. Neuro: Awake, alert, oriented. Cranial nerves II through XII unremarkable. Cerebellum unremarkable. Motor and sensory unremarkable throughout. Exam nonfocal. Notes: Due to patient's vitals, he meets our sepsis workout; labs have been ordered. Patient voices concern of having his I&D site irrigated as he does this 3 times daily. He states he has had an abscess to his left heel for approximately a year to a year and a half. Recently this was drained and he has been having to perform irrigations 3 times daily, states he is due for this now. Family members are bringing his home supplies to be able to perform this. Vital signs are stable and have improved. No significant findings on labs at this time. Dr Arias, hospitalist on-call, was informed of this patient and is requesting a CTA of the chest. Patient aware and results pending. CTA results show no findings of a PE or sign of infection. Vital signs remained stable. Did consult Dr. Arias who is agreeable to keeping this patient for observation admission. Patient is aware and agreeable. Diagnostics: CBC, CMP, UA, Lactic, BC x 2, BNP, school bus monitor, EKG, CXR, INR Therapeutics: IV fluids 100mls/hr, Duo Neb, Oxygen Impression: COPD CHF Hypoxia Plan: Observation admission Definitive disposition and diagnosis as appropriate pending reevaluation and review of above. right shoulder Pain Score (Numeric/FACES): 6 - Related Data Allergies Allergy/AdvReac Type Severity Reaction Status Date / Time itraconazole [From Sporanox] Allergy Unknown Confusion Verified 03/15/19 19:23 levofloxacin [From Levaquin] Allergy Unknown Other Verified 03/15/19 19:23 Home Meds: Home Meds Apixaban [Eliquis] 5 mg PO BID tablet 07/21/18 [Rx] Metoprolol Tartrate [Lopressor] 50 mg PO BID tablet 07/21/18 [Rx] Gabapentin [Neurontin] 800 mg PO QID 08/05/18 [History] Albuterol Sulfate 2.5 mg IH Q4HRRT PRN 10/09/18 [History] Diltiazem [Cardizem CD] 240 mg PO QAM 10/09/18 [History] Fluticasone/Vilanterol [Breo Ellipta 200-25 Mcg INH] 1 each IH DAILY 10/09/18 [ History] HYDROmorphone [Dilaudid] 4 mg PO Q6H PRN 10/09/18 [History] Lansoprazole [Prevacid] 30 mg PO ACBREAKFAST 10/09/18 [History] Tiotropium [place] [Spiriva Respimat] 2 inh IH DAILY 10/09/18 [History] predniSONE 20 mg PO QAM 10/09/18 [History] Furosemide 20 mg PO DAILY 11/08/18 [History] Calcium Carbonate/Vitamin D3 [Calcium 600 + Vit D 400 Softgl] 1 tab PO DAILY [History] Midodrine 5 mg PO BID 03/15/19 [History] lisinopriL [Lisinopril] 2.5 mg PO DAILY 03/15/19 [History] Past Medical History HEENT History: Reports: Cataract Other HEENT History: dental fillings due to caries; recent tooth fracture Cardiovascular History: Reports: Afib, Cardiomyopathy, Heart Failure, Hypertension, [place] Other Cardiovascular History: Heart attack April 2010 Respiratory History: Reports: Asthma, Bronchitis, Recurrent, PE, Pneumonia, Recurrent, Other (See Below) Other Respiratory History: Chronic pulmonary aspergillosis, 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 No explantation- -they apparently just treated him with IV abx for months. - Past Surgical History Head Surgeries/Procedures: Reports: None HEENT Surgical History: Reports: Cataract Surgery Cardiovascular Surgical History: Reports: None Respiratory Surgical History: Reports: Lung Resection Other Respiratory Surgeries/Procedures: intubated last Feb 2018 and transfered to [facility] Surgical History: Reports: Colonoscopy Male Surgical History: Reports: None Endocrine Surgical History: Reports: None Neurological Surgical History: Reports: None Musculoskeletal Surgical History: Reports: Amputation, Shoulder Surgery, Other ( See Below) Other Musculoskeletal Surgeries/Procedures:: L shoulder and left hip surgery Oncologic Surgical History: Reports: None Dermatological Surgical History: Reports: None Social & Family History - Family History Family Medical History: Noncontributory - Caffeine Use Caffeine Use: Reports: Coffee - Living Situation & Occupation Living situation: Reports: Single, with Family (sons) Occupation: Disabled ED ROS GENERAL - Review of Systems Review Of Systems: Comprehensive ROS is negative, except as noted in HPI. ED EXAM, GENERAL - Physical Exam Exam: See Below (See dictation) Course - Vital Signs Last Recorded V/S: Last Vital Signs Temp 99.1 F 06/14/19 12:27 Pulse 99 06/14/19 13:23 Resp 18 06/14/19 13:23 BP 154/82 H 06/14/19 13:23 Pulse Ox 97 06/14/19 13:23 - Orders/Labs/Meds Orders: Active Orders 24 hr Category Date Time Status EKG Documentation Completion [RC] STAT Care 06/14/19 10:52 Active RT Aerosol Therapy [RC] ASDIRECTED Care 06/14/19 10:52 Active CULTURE BLOOD [BC] Stat Lab 06/14/19 10:55 Received CULTURE BLOOD [BC] Stat Lab 06/14/19 10:57 Received CULTURE STREP A CONFIRMATION [] Stat Lab 06/14/19 10:58 Results STREP SCRN A RAPID W CULT CONF [] Stat Lab 06/14/19 10:58 Results Blood Culture x2 Reflex Set [OM.PC] Stat Oth 06/14/19 10:52 Ordered Labs: Laboratory Tests 06/14/19 06/14/19 06/14/19 Range/Units 10:55 10:55 10:55 WBC 8.65 (4.0-11.0) K/uL RBC 3.60 L (4.50-5.90) M/uL Hgb 9.4 L (13.0-17.0) g/dL Hct 33.2 L (38.0-50.0) % MCV 92.2 (80.0-98.0) fL MCH 26.1 L (27.0-32.0) pg MCHC 28.3 L (31.0-37.0) g/dL RDW Std Deviation 80.9 H (28.0-62.0) fl RDW Coeff of Tre 25 H (11.0-15.0) % Plt Count 255 (150-400) K/uL MPV 9.50 (7.40-12.00) fL Add Manual Diff YES Neutrophils % (Manual) 65 (48.0-80.0) % Band Neutrophils % 7 % Lymphocytes % (Manual) 22 (16.0-40.0) % Monocytes % (Manual) 4 (0.0-15.0) % Eosinophils % (Manual) 2 (0.0-7.0) % Nucleated RBC % 0.8 /100WBC Absolute Seg Neuts 5.6 (1.4-5.7) Band Neutrophils # 0.6 Lymphocytes # (Manual) 1.9 (0.6-2.4) Monocytes # (Manual) 0.3 (0.0-0.8) Eosinophils # (Manual) 0.2 (0.0-0.7) Nucleated RBCs # 0 K/uL Hypochromasia 2+ MODERATE INR Lactate 1.3 (0.20-2.00) mmol/L Sodium 141 (136-148) mmol/L Potassium 4.0 (3.5-5.1) mmol/L Chloride 103 (98-107) mmol/L Carbon Dioxide 32.3 H (21.0-32.0) mmol/L BUN 27 H (7.0-18.0) mg/dL Creatinine 1.1 (0.8-1.3) mg/dL Est Cr Clr Drug Dosing 62.90 mL/min Estimated GFR (MDRD) > 60.0 ml/min Glucose 113 H (74-106) mg/dL Calcium 8.6 (8.5-10.1) mg/dL Total Bilirubin 0.2 (0.2-1.0) mg/dL AST 28 (15-37) IU/L ALT 29 (14-63) IU/L Alkaline Phosphatase 66 (46-116) U/L B-Natriuretic Peptide (<100) PG/ML Total Protein 6.8 (6.4-8.2) g/dL Albumin 2.7 L (3.4-5.0) g/dL Globulin 4.1 H (2.6-4.0) g/dL Albumin/Globulin Ratio 0.7 L (0.9-1.6) Urine Color Urine Appearance Urine pH (5.0-8.0) Ur Specific [place] (1.001-1.035) Urine Protein (NEGATIVE) mg/dL Urine Glucose (UA) (NEGATIVE) mg/dL Urine Ketones (NEGATIVE) mg/dL Urine Occult Blood (NEGATIVE) Urine Nitrite (NEGATIVE) Urine Bilirubin (NEGATIVE) Urine Urobilinogen (<2.0) EU/dL Ur Leukocyte Esterase (NEGATIVE) Urine RBC (0-2/HPF) Urine WBC (0-5/HPF) Ur Epithelial Cells (NONE-FEW) Urine Bacteria (NEGATIVE) 06/14/19 06/14/19 06/14/19 Range/Units 10:55 11:32 12:00 WBC (4.0-11.0) K/uL RBC (4.50-5.90) M/uL Hgb (13.0-17.0) g/dL Hct (38.0-50.0) % MCV (80.0-98.0) fL MCH (27.0-32.0) pg MCHC (31.0-37.0) g/dL RDW Std Deviation (28.0-62.0) fl RDW Coeff of Tre (11.0-15.0) % Plt Count (150-400) K/uL MPV (7.40-12.00) fL Add Manual Diff Neutrophils % (Manual) (48.0-80.0) % Band Neutrophils % % Lymphocytes % (Manual) (16.0-40.0) % Monocytes % (Manual) (0.0-15.0) % Eosinophils % (Manual) (0.0-7.0) % Nucleated RBC % /100WBC Absolute Seg Neuts (1.4-5.7) Band Neutrophils # Lymphocytes # (Manual) (0.6-2.4) Monocytes # (Manual) (0.0-0.8) Eosinophils # (Manual) (0.0-0.7) Nucleated RBCs # K/uL Hypochromasia INR 1.02 Lactate (0.20-2.00) mmol/L Sodium (136-148) mmol/L Potassium (3.5-5.1) mmol/L Chloride (98-107) mmol/L Carbon Dioxide (21.0-32.0) mmol/L BUN (7.0-18.0) mg/dL Creatinine (0.8-1.3) mg/dL Est Cr Clr Drug Dosing mL/min Estimated GFR (MDRD) ml/min Glucose (74-106) mg/dL Calcium (8.5-10.1) mg/dL Total Bilirubin (0.2-1.0) mg/dL AST (15-37) IU/L ALT (14-63) IU/L Alkaline Phosphatase (46-116) U/L B-Natriuretic Peptide 749 H (<100) PG/ML Total Protein (6.4-8.2) g/dL Albumin (3.4-5.0) g/dL Globulin (2.6-4.0) g/dL Albumin/Globulin Ratio (0.9-1.6) Urine Color YELLOW Urine Appearance CLEAR Urine pH 6.0 (5.0-8.0) Ur Specific [place] 1.025 (1.001-1.035) Urine Protein TRACE H (NEGATIVE) mg/dL Urine Glucose (UA) NEGATIVE (NEGATIVE) mg/dL Urine Ketones NEGATIVE (NEGATIVE) mg/dL Urine Occult Blood NEGATIVE (NEGATIVE) Urine Nitrite NEGATIVE (NEGATIVE) Urine Bilirubin NEGATIVE (NEGATIVE) Urine Urobilinogen 0.2 (<2.0) EU/dL Ur Leukocyte Esterase NEGATIVE (NEGATIVE) Urine RBC 0-3 (0-2/HPF) Urine WBC 0-3 (0-5/HPF) Ur Epithelial Cells RARE (NONE-FEW) Urine Bacteria FEW (NEGATIVE) Meds: Medications Discontinued Medications Generic Name Dose Route Start Last Admin Trade Name Freq PRN Reason Stop Dose Admin Albuterol/Ipratropium 3 ml 06/14/19 10:52 06/14/19 11:02 Duoneb 3.0-0.5 Mg/3 Ml NEB 06/14/19 10:53 3 ml ONETIME ONE Administration Sodium Chloride 1,000 mls @ 999 mls/hr 06/14/19 10:52 06/14/19 11:36 Normal Saline IV 06/14/19 11:52 100 mls/hr STAT ONE Administration Iopamidol 50 ml 06/14/19 13:16 06/14/19 13:17 Isovue Multipack-370 (76%) IVPUSH 06/14/19 13:17 50 ml ONETIME STA Administration Departure - Departure Time of Disposition: 14:08 Disposition: Refer to Observation Clinical Impression: COPD exacerbation, Hypoxia CHF (congestive heart failure) Qualifiers: Heart failure type: unspecified Heart failure chronicity: unspecified Qualified Code(s): I50.9 - Heart failure, unspecified - Discharge Information Referrals: Connor Melchor MD [Primary Care Provider] - Forms: ED Department Discharge Sepsis Event Note - Focused Exam Vital Signs: Vital Signs Temp Pulse Resp BP Pulse Ox 06/14/19 13:23 99 18 154/82 H 97 06/14/19 12:27 99.1 F 78 16 129/71 95 06/14/19 10:40 100.1 F 102 H 18 145/75 H 84 L Date Exam was Performed: 06/14/19 Time Exam was Performed: 14:06 - My Orders Last 24 Hours: My Active Orders 06/14/19 10:52 EKG Documentation Completion [RC] STAT RT Aerosol Therapy [RC] ASDIRECTED Blood Culture x2 Reflex Set [OM.PC] Stat 06/14/19 10:55 CULTURE BLOOD [BC] Stat 06/14/19 10:57 CULTURE BLOOD [BC] Stat 06/14/19 10:58 CULTURE STREP A CONFIRMATION [RM] Stat STREP SCRN A RAPID W CULT CONF [RM] Stat - Assessment/Plan Last 24 Hours: My Active Orders 06/14/19 10:52 EKG Documentation Completion [RC] STAT RT Aerosol Therapy [RC] ASDIRECTED Blood Culture x2 Reflex Set [OM.PC] Stat 06/14/19 10:55 CULTURE BLOOD [BC] Stat 06/14/19 10:57 CULTURE BLOOD [BC] Stat 06/14/19 10:58 CULTURE STREP A CONFIRMATION [RM] Stat STREP SCRN A RAPID W CULT CONF [RM] Stat
[2019-06-14] MEDS ORDERED: Albuterol/Ipratropium 3.0-0.5 MG/3 ML Neb Soln NEB ONE (10:52)
[2019-06-14] MEDS ORDERED: Sodium Chloride 0.9% 1,000 ML IV ONE (10:52)
[2019-06-14 11:44] LABS: BLOOD UREA NITROGEN,BUN 27 mg/dL (7.0-18.0); CARBON DIOXIDE,CO2 32.3 mmol/L (21.0-32.0); CHLORIDE,CL 103 mmol/L (98-107); GLUCOSE RANDOM 113 mg/dL (74-106); SODIUM,NA 141 mmol/L (136-148)
--- NOTE | 2019-06-14 12:59 | CR ---
Chest: AP frontal view of the chest was obtained. Heart size appears within normal limits for AP technique. Tortuous thoracic aorta is noted. Minimal atelectasis within the lateral left costophrenic angle is seen. Lungs otherwise are clear. Left shoulder prosthesis is seen. Opacities are noted within the right shoulder presumably due to antibiotic beads. Impression: 1. Findings as noted above. 2. Nothing acute is appreciated. Diagnostic code #2 This report was dictated in [place] Standard Time
[2019-06-14] MEDS ORDERED: Iopamidol 755 MG/ML 500 ML Multipack Bottle IVPUSH STA (13:16)
--- NOTE | 2019-06-14 13:59 | CT ---
CT chest Technique: Multiple axial sections through the chest were obtained. Intravenous contrast was utilized. Study has been performed as a pulmonary angiogram protocol. Findings: Pulmonary arteries are well-opacified. No filling defects are seen to indicate pulmonary embolism. No pericardial thickening is seen. Small portion of the visualized upper abdominal structures appear unremarkable. Mediastinum and hilar regions show no adenopathy. Aorta shows atherosclerotic change without aneurysm. No axillary adenopathy is identified. Lungs show no acute parenchymal change. There is an area of extrapleural fat being seen within both posterior lungs which is believed to be incidental. Impression: 1. No findings of pulmonary embolism. 2. Nothing acute is seen on CT study of the chest. Diagnostic code #2 This report was dictated in [place] Standard Time
[2019-06-14] MEDS ORDERED: methylPREDNISolone Sodium Succinate 125 MG/2 ML SDV IVPUSH ONE (15:26)
--- NOTE | 2019-06-14 15:27 | PCM.HP.2 ---
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 He reports that last couple days he has progressively had shortness of breath with activity with some wheezing. He was recently discharged from the [facility] for septic shoulder, where they performed surgery and placed a PICC for stab setter and driller IV therapy with Rocephin for 6 weeks. He has been coming to our infusion center. He reports he was sent home with a prescription for oxygen, but hasn't filled it because it was for short term use and his insurance wouldn't pay for it. He denies fevers or chills. No chest pain. reports this shortness of breath, no productive cough. No hemoptysis. He denies diarrhea or abdominal pain, no urinary concerns. In the ED labwork WNL. CXR negative and CT angio negative as well. BNP slightly elevated, no pulmonary edema noted on imaging. He was noted to be hypoxic 84% on room air on arrival. He was given DUoneb in the ED. Will admit for acute on chronic hypoxic respiratory failure and COPD exacerbation. right shoulder Pain Score (Numeric/FACES): 6 - Related Data Allergies/Adverse Reactions: Allergies Allergy/AdvReac Type Severity Reaction Status Date / Time itraconazole [From Sporanox] Allergy Unknown Confusion Verified 06/14/19 16:06 levofloxacin [From Levaquin] Allergy Unknown Other Verified 06/14/19 16:06 Home Medications: Home Meds Apixaban [Eliquis] 5 mg PO BID tablet 07/21/18 [Rx] Metoprolol Tartrate [Lopressor] 50 mg PO BID tablet 07/21/18 [Rx] Gabapentin [Neurontin] 800 mg PO QID 08/05/18 [History] HYDROmorphone [Dilaudid] 4 mg PO Q4H PRN 10/09/18 [History] Lansoprazole [Prevacid] 30 mg PO ACBREAKFAST 10/09/18 [History] predniSONE 20 mg PO QAM 10/09/18 [History] Furosemide 40 mg PO DAILY 11/08/18 [History] Midodrine 5 mg PO BID 03/15/19 [History] lisinopriL [Lisinopril] 2.5 mg PO DAILY 03/15/19 [History] Past Medical History HEENT History: Reports: Cataract Other HEENT History: dental fillings due to caries; recent tooth fracture Cardiovascular History: Reports: Afib, Cardiomyopathy, Heart Failure, Hypertension, [place] Other Cardiovascular History: Heart attack April 2010 Respiratory History: Reports: Asthma, Bronchitis, Recurrent, PE, Pneumonia, Recurrent, Other (See Below) Other Respiratory History: Chronic pulmonary aspergillosis, 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 No explantation- -they apparently just treated him with IV abx for months. - Past Surgical History Head Surgeries/Procedures: Reports: None HEENT Surgical History: Reports: Cataract Surgery Cardiovascular Surgical History: Reports: None Respiratory Surgical History: Reports: Lung Resection Other Respiratory Surgeries/Procedures: intubated last Feb 2018 and transfered to [place] [facility] Surgical History: Reports: Colonoscopy Male Surgical History: Reports: None Endocrine Surgical History: Reports: None Neurological Surgical History: Reports: None Musculoskeletal Surgical History: Reports: Amputation, Shoulder Surgery, Other ( See Below) Other Musculoskeletal Surgeries/Procedures:: L shoulder and left hip surgery Oncologic Surgical History: Reports: None Dermatological Surgical History: Reports: None Social & Family History - Family History Family Medical History: Noncontributory - Tobacco Use Smoking Status *Q: Never Smoker - Caffeine Use Caffeine Use: Reports: Coffee - Recreational Drug Use Recreational Drug Use: No - Living Situation & Occupation Living situation: Reports: Single, with Family (sons) Occupation: Disabled H&P Review of Systems - Review of Systems: Review Of Systems: See Below General: Reports: No Symptoms. Denies: Fever, Chills, Malaise HEENT: Reports: No Symptoms. Denies: Sore Throat, Visual Changes Pulmonary: Reports: Shortness of Breath, Wheezing, Cough. Denies: Sputum, Hemoptysis Cardiovascular: Reports: No Symptoms. Denies: Chest Pain, Palpitations, Edema Gastrointestinal: Reports: No Symptoms. Denies: Abdominal Pain, Black Stool, Bloody Stool, Nausea, Vomiting Genitourinary: Reports: No Symptoms. Denies: Dysuria, Frequency, Burning Musculoskeletal: Reports: No Symptoms Skin: Reports: No Symptoms Psychiatric: Reports: No Symptoms Neurological: Reports: No Symptoms Hematologic/Lymphatic: Reports: No Symptoms Immunologic: Reports: No Symptoms Exam - Exam Exam: See Below - Vital Signs Vital Signs: Last Vital Signs Temp 99.1 F 06/14/19 12:27 Pulse 99 06/14/19 13:23 Resp 18 06/14/19 13:23 BP 154/82 H 06/14/19 13:23 Pulse Ox 97 06/14/19 13:23 Weight: 68.039 kg - Exam General: Alert, Oriented, Cooperative HEENT: Conjunctiva Clear, Mucosa Moist & [place], Posterior Pharynx Clear Lungs: Normal Respiratory Effort, Decreased Breath Sounds, Wheezing GI/Abdominal Exam: Normal Bowel Sounds, Soft, Non-Tender Back Exam: Normal Inspection, Full Range of Motion Extremities: Normal Inspection, Normal Range of Motion, Non-Tender, No Pedal Edema Skin: Wound (L heel), Incision (R shoulder dressing intact.) Neuro Extensive - Mental Status: Alert, Oriented x3 Neuro Extensive - Motor, Sensory, Reflexes: CN II-XII Intact Psychiatric: Alert, Normal Affect, Normal Mood - Patient Data Lab Results Last 24 hrs: Laboratory Results - last 24 hr 06/14/19 06/14/19 06/14/19 Range/Units 10:55 10:55 10:55 WBC 8.65 (4.0-11.0) K/uL RBC 3.60 L (4.50-5.90) M/uL Hgb 9.4 L (13.0-17.0) g/dL Hct 33.2 L (38.0-50.0) % MCV 92.2 (80.0-98.0) fL MCH 26.1 L (27.0-32.0) pg MCHC 28.3 L (31.0-37.0) g/dL RDW Std Deviation 80.9 H (28.0-62.0) fl RDW Coeff of Tre 25 H (11.0-15.0) % Plt Count 255 (150-400) K/uL MPV 9.50 (7.40-12.00) fL Add Manual Diff YES Neutrophils % (Manual) 65 (48.0-80.0) % Band Neutrophils % 7 % Lymphocytes % (Manual) 22 (16.0-40.0) % Monocytes % (Manual) 4 (0.0-15.0) % Eosinophils % (Manual) 2 (0.0-7.0) % Nucleated RBC % 0.8 /100WBC Absolute Seg Neuts 5.6 (1.4-5.7) Band Neutrophils # 0.6 Lymphocytes # (Manual) 1.9 (0.6-2.4) Monocytes # (Manual) 0.3 (0.0-0.8) Eosinophils # (Manual) 0.2 (0.0-0.7) Nucleated RBCs # 0 K/uL Hypochromasia 2+ MODERATE INR Lactate 1.3 (0.20-2.00) mmol/L Sodium 141 (136-148) mmol/L Potassium 4.0 (3.5-5.1) mmol/L Chloride 103 (98-107) mmol/L Carbon Dioxide 32.3 H (21.0-32.0) mmol/L BUN 27 H (7.0-18.0) mg/dL Creatinine 1.1 (0.8-1.3) mg/dL Est Cr Clr Drug Dosing 62.90 mL/min Estimated GFR (MDRD) > 60.0 ml/min Glucose 113 H (74-106) mg/dL Calcium 8.6 (8.5-10.1) mg/dL Total Bilirubin 0.2 (0.2-1.0) mg/dL AST 28 (15-37) IU/L ALT 29 (14-63) IU/L Alkaline Phosphatase 66 (46-116) U/L B-Natriuretic Peptide (<100) PG/ML Total Protein 6.8 (6.4-8.2) g/dL Albumin 2.7 L (3.4-5.0) g/dL Globulin 4.1 H (2.6-4.0) g/dL Albumin/Globulin Ratio 0.7 L (0.9-1.6) Urine Color Urine Appearance Urine pH (5.0-8.0) Ur Specific [place] (1.001-1.035) Urine Protein (NEGATIVE) mg/dL Urine Glucose (UA) (NEGATIVE) mg/dL Urine Ketones (NEGATIVE) mg/dL Urine Occult Blood (NEGATIVE) Urine Nitrite (NEGATIVE) Urine Bilirubin (NEGATIVE) Urine Urobilinogen (<2.0) EU/dL Ur Leukocyte Esterase (NEGATIVE) Urine RBC (0-2/HPF) Urine WBC (0-5/HPF) Ur Epithelial Cells (NONE-FEW) Urine Bacteria (NEGATIVE) 06/14/19 06/14/19 06/14/19 Range/Units 10:55 11:32 12:00 WBC (4.0-11.0) K/uL RBC (4.50-5.90) M/uL Hgb (13.0-17.0) g/dL Hct (38.0-50.0) % MCV (80.0-98.0) fL MCH (27.0-32.0) pg MCHC (31.0-37.0) g/dL RDW Std Deviation (28.0-62.0) fl RDW Coeff of Tre (11.0-15.0) % Plt Count (150-400) K/uL MPV (7.40-12.00) fL Add Manual Diff Neutrophils % (Manual) (48.0-80.0) % Band Neutrophils % % Lymphocytes % (Manual) (16.0-40.0) % Monocytes % (Manual) (0.0-15.0) % Eosinophils % (Manual) (0.0-7.0) % Nucleated RBC % /100WBC Absolute Seg Neuts (1.4-5.7) Band Neutrophils # Lymphocytes # (Manual) (0.6-2.4) Monocytes # (Manual) (0.0-0.8) Eosinophils # (Manual) (0.0-0.7) Nucleated RBCs # K/uL Hypochromasia INR 1.02 Lactate (0.20-2.00) mmol/L Sodium (136-148) mmol/L Potassium (3.5-5.1) mmol/L Chloride (98-107) mmol/L Carbon Dioxide (21.0-32.0) mmol/L BUN (7.0-18.0) mg/dL Creatinine (0.8-1.3) mg/dL Est Cr Clr Drug Dosing mL/min Estimated GFR (MDRD) ml/min Glucose (74-106) mg/dL Calcium (8.5-10.1) mg/dL Total Bilirubin (0.2-1.0) mg/dL AST (15-37) IU/L ALT (14-63) IU/L Alkaline Phosphatase (46-116) U/L B-Natriuretic Peptide 749 H (<100) PG/ML Total Protein (6.4-8.2) g/dL Albumin (3.4-5.0) g/dL Globulin (2.6-4.0) g/dL Albumin/Globulin Ratio (0.9-1.6) Urine Color YELLOW Urine Appearance CLEAR Urine pH 6.0 (5.0-8.0) Ur Specific [place] 1.025 (1.001-1.035) Urine Protein TRACE H (NEGATIVE) mg/dL Urine Glucose (UA) NEGATIVE (NEGATIVE) mg/dL Urine Ketones NEGATIVE (NEGATIVE) mg/dL Urine Occult Blood NEGATIVE (NEGATIVE) Urine Nitrite NEGATIVE (NEGATIVE) Urine Bilirubin NEGATIVE (NEGATIVE) Urine Urobilinogen 0.2 (<2.0) EU/dL Ur Leukocyte Esterase NEGATIVE (NEGATIVE) Urine RBC 0-3 (0-2/HPF) Urine WBC 0-3 (0-5/HPF) Ur Epithelial Cells RARE (NONE-FEW) Urine Bacteria FEW (NEGATIVE) Result Diagrams: 06/14/19 10:55 06/14/19 10:55 Steve Results Last 24 hrs: Microbiology 06/14/19 10:58 Influenza Type A Antigen Screen - Final Nasopharyngeal Swab NEGATIVE INFLUENZA A VIRUS AG REFERENCE RANGE: NEGATIVE Influenza Type B Antigen Screen - Final NEGATIVE INFLUENZA B VIRUS AG REFERENCE RANGE: NEGATIVE 06/14/19 10:58 Group A Streptococcus Rapid Screen - Final Throat NEGATIVE STREP A SCREEN REFERENCE RANGE: NEGATIVE Sepsis Event Note - Evaluation Sepsis Screening Result: Possible Sepsis Risk - Focused Exam Vital Signs: Vital Signs Temp Pulse Resp BP Pulse Ox 06/14/19 13:23 99 18 154/82 H 97 06/14/19 12:27 99.1 F 78 16 129/71 95 06/14/19 10:40 100.1 F 102 H 18 145/75 H 84 L Date Exam was Performed: 06/14/19 Time Exam was Performed: 17:02 - Problem List (1) Aspergillosis SNOMED Code(s): 17164279 ICD Code: B44.9 - ASPERGILLOSIS, UNSPECIFIED Status: Chronic Priority: Medium Current Visit: No (2) Immunocompromised due to corticosteroids SNOMED Code(s): 630049666 ICD Code: D84.8 - OTHER SPECIFIED IMMUNODEFICIENCIES; T38.0X5A - ADVERSE EFFECT OF GLUCOCORT/SYNTH ANALOG, INIT Status: Chronic Priority: Medium Current Visit: No (3) Acute and chronic respiratory failure SNOMED Code(s): 99782411 ICD Code: J96.20 - ACUTE AND CHR RESP FAILURE, UNSP W HYPOXIA OR HYPERCAPNIA Status: Acute Current Visit: No Qualifiers: Respiratory failure complication: hypoxia Qualified Code(s): J96.21 - Acute and chronic respiratory failure with hypoxia (4) COPD exacerbation SNOMED Code(s): 740247109 ICD Code: J44.1 - CHRONIC OBSTRUCTIVE PULMONARY DISEASE W (ACUTE) EXACERBATION Status: Acute Current Visit: Yes (5) CHF (congestive heart failure) SNOMED Code(s): 69639342 ICD Code: I50.9 - HEART FAILURE, UNSPECIFIED Status: Acute Current Visit : Yes Qualifiers: Heart failure type: unspecified Heart failure chronicity: unspecified Qualified Code(s): I50.9 - Heart failure, unspecified (6) Chronic pain SNOMED Code(s): 01647038 ICD Code: G89.29 - OTHER CHRONIC PAIN Status: Chronic Current Visit: No Qualifiers: Chronic pain type: other chronic pain Qualified Code(s): G89.29 - Other chronic pain (7) Afib SNOMED Code(s): 55431608 ICD Code: I48.91 - UNSPECIFIED ATRIAL FIBRILLATION Status: Chronic Priority: High Current Visit: No Qualifiers: Atrial fibrillation type: persistent (8) Anticoagulated on Coumadin SNOMED Code(s): 54078101 ICD Code: Z51.81 - ENCOUNTER FOR THERAPEUTIC DRUG LEVEL MONITORING; Z79.01 - FPC (CURRENT) USE OF ANTICOAGULANTS Status: Chronic Priority: Medium Current Visit: No (9) History of aspergillosis SNOMED Code(s): 181099580 ICD Code: Z86.19 - PERSONAL HISTORY OF OTHER INFECTIOUS AND PARASITIC DISEASES Status: Chronic Priority: High Current Visit: No Problem List Initiated/Reviewed/Updated: Yes Orders Last 24hrs: Active Orders 24 hr Category Date Time Status Admission Status [Patient Status] [ADT] Stat ADT 06/14/19 14:09 Active EKG Documentation Completion [RC] STAT Care 06/14/19 10:52 Active RT Aerosol Therapy [RC] ASDIRECTED Care 06/14/19 10:52 Active CULTURE BLOOD [BC] Stat Lab 06/14/19 10:55 Received CULTURE BLOOD [] Stat Lab 06/14/19 10:57 Received CULTURE STREP A CONFIRMATION [] Stat Lab 06/14/19 10:58 Results STREP SCRN A RAPID W CULT CONF [] Stat Lab 06/14/19 10:58 Results methylPREDNISolone Sod Succ [Solu-MEDROL] Med 06/14/19 15:26 Once 125 mg IVPUSH ONETIME ONE Blood Culture x2 Reflex Set [OM.PC] Stat Oth 06/14/19 10:52 Ordered Assessment/Plan Comment:: This 59 year old male admitted with acute on chronic hypoxic respiratory failure and suspected COPD exacerbation 1. Acute on chronic hypoxic respiratory failure and suspected COPD exacerbation : Will administer oxygen PRN to keep sats greater than 88%. Continue Duonebs every 4 hours. Encourage IS. Solumedrol 40 mg Q8hr IV. Add Azithromycin. May need home O2 on a chronic basis due to bronchopulmonary aspergillosis 2. Septic Joint: Continue daily Rocephin in am per September orders. 3. Heel wound: Continue TID flushing per home schedule 4. Afib: Stable, will continue home medications and anticoagulation. 5. Chronic pain: Continue home regimen. VTE prophylaxis: Continue home regimen Dispo: 1 day - Mortality Measure Prognosis:: Good
[2019-06-14] MEDS ORDERED: Acetaminophen 325 MG Tab PO PRN (15:52)
[2019-06-14] MEDS ORDERED: Ondansetron 4 MG/2 ML SDV IVPUSH PRN (15:52)
[2019-06-14] MEDS ORDERED: Azithromycin 250 MG Tab PO SCH (16:45)
[2019-06-14] MEDS: Gabapentin 800 MG Tab PO SCH (17:33)
[2019-06-14] MEDS: HYDROmorphone 2 MG Tab PO PRN (17:36)
[2019-06-14] MEDS: Albuterol/Ipratropium 3.0-0.5 MG/3 ML Neb Soln NEB SCH ×2 (18:51→21:34)
[2019-06-14] MEDS ORDERED: Benzocaine/Cetylpyridinium/Menthol Lozenge MUCMEM PRN (21:33)
[2019-06-14] MEDS: Metoprolol Tartrate 50 MG Tab PO SCH (21:40)
[2019-06-14] MEDS: methylPREDNISolone Sodium Succinate 40 MG/1 ML SDV IVPUSH SCH (21:41)
[2019-06-14] MEDS: Apixaban 5 MG Tab PO SCH (21:41)
[2019-06-14] MEDS ORDERED: Furosemide 40 MG/4 ML VIAL IVPUSH ONE (23:20)
[2019-06-14] MEDS ORDERED: Magnesium Sulfate/Water 2 GM in Premix Bag 1 BAG IV ONE (23:21)
[2019-06-14] MEDS ORDERED: Phosphorus #1 250 MG Tab PO ONE (23:21)
[2019-06-15] MEDS: Gabapentin 800 MG Tab PO SCH ×3 (00:21→11:01)
[2019-06-15] MEDS: Albuterol/Ipratropium 3.0-0.5 MG/3 ML Neb Soln NEB SCH ×3 (01:31→10:18)
[2019-06-15 06:13] LABS: BLOOD UREA NITROGEN,BUN 26 mg/dL (7.0-18.0); CARBON DIOXIDE,CO2 34.8 mmol/L (21.0-32.0); CHLORIDE,CL 101 mmol/L (98-107); GLUCOSE RANDOM 153 mg/dL (74-106); POTASSIUM,K 3.9 mmol/L (3.5-5.1); SODIUM,NA 140 mmol/L (136-148)
[2019-06-15] MEDS: methylPREDNISolone Sodium Succinate 40 MG/1 ML SDV IVPUSH SCH ×2 (06:32→14:28)
[2019-06-15] MEDS ORDERED: Lansoprazole 30 MG Orally Disintegrating Tab.CR PO SCH (07:30)
[2019-06-15] MEDS: Metoprolol Tartrate 50 MG Tab PO SCH ×2 (07:54→08:16)
[2019-06-15] MEDS: Lisinopril 5 MG Tab PO SCH ×2 (07:55→08:16)
[2019-06-15] MEDS: Midodrine 5 MG Tab PO SCH ×2 (07:55→08:16)
[2019-06-15] MEDS: Furosemide 40 MG Tab PO SCH ×2 (07:55→08:16)
[2019-06-15] MEDS: Apixaban 5 MG Tab PO SCH ×2 (07:55→08:15)
[2019-06-15 07:57] VITALS: BP 154/86; PULSE 99
[2019-06-15] MEDS ORDERED: cefTRIAXone 2 GM in Premix Bag 1 BAG IV SCH (10:00)
[2019-06-15] MEDS ORDERED: Furosemide 40 MG/4 ML VIAL IVPUSH ONE (10:14)
--- NOTE | 2019-06-15 10:48 | PCM.DCSUM1 ---
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 He reports that last couple days he has progressively had shortness of breath with activity with some wheezing. He was recently discharged from the [facility] for septic shoulder, where they performed surgery and placed a PICC for manager long term care IV therapy with Rocephin for 6 weeks. He has been coming to our infusion center. He reports he was sent home with a prescription for oxygen, but hasn't filled it because it was for short term use and his insurance wouldn't pay for it. He denies fevers or chills. No chest pain. reports this shortness of breath , no productive cough. No hemoptysis. He denies diarrhea or abdominal pain, no urinary concerns. In the ED labwork WNL. CXR negative and CT angio negative as well. BNP slightly elevated, no pulmonary edema noted on imaging. He was noted to be hypoxic 84% on room air on arrival. He was given DUoneb in the ED. Will admit for acute on chronic hypoxic respiratory failure and COPD exacerbation. Diagnosis: Stroke: No - Discharge Data Discharge Date: 06/15/19 Discharge Disposition: Home, Self-Care 01 Condition: Stable - Referral to Home Health Primary Care Physician: Connor Melchor MD - Discharge Diagnosis/Problem(s) (1) Aspergillosis SNOMED Code(s): 49306160 ICD Code: B44.9 - ASPERGILLOSIS, UNSPECIFIED Status: Chronic Priority: Medium Current Visit: No (2) Immunocompromised due to corticosteroids SNOMED Code(s): 238235372 ICD Code: D84.8 - OTHER SPECIFIED IMMUNODEFICIENCIES; T38.0X5A - ADVERSE EFFECT OF GLUCOCORT/SYNTH ANALOG, INIT Status: Chronic Priority: Medium Current Visit: No (3) Acute and chronic respiratory failure SNOMED Code(s): 16021513 ICD Code: J96.20 - ACUTE AND CHR RESP FAILURE, UNSP W HYPOXIA OR HYPERCAPNIA Status: Acute Current Visit: No Qualifiers: Respiratory failure complication: hypoxia Qualified Code(s): J96.21 - Acute and chronic respiratory failure with hypoxia (4) COPD exacerbation SNOMED Code(s): 480699823 ICD Code: J44.1 - CHRONIC OBSTRUCTIVE PULMONARY DISEASE W (ACUTE) EXACERBATION Status: Acute Current Visit: Yes (5) CHF (congestive heart failure) SNOMED Code(s): 28530372 ICD Code: I50.9 - HEART FAILURE, UNSPECIFIED Status: Acute Current Visit : Yes Qualifiers: Heart failure type: unspecified Heart failure chronicity: unspecified Qualified Code(s): I50.9 - Heart failure, unspecified (6) Chronic pain SNOMED Code(s): 59140781 ICD Code: G89.29 - OTHER CHRONIC PAIN Status: Chronic Current Visit: No Qualifiers: Chronic pain type: other chronic pain Qualified Code(s): G89.29 - Other chronic pain (7) Afib SNOMED Code(s): 65769922 ICD Code: I48.91 - UNSPECIFIED ATRIAL FIBRILLATION Status: Chronic Priority: High Current Visit: No Qualifiers: Atrial fibrillation type: persistent (8) Anticoagulated on Coumadin SNOMED Code(s): 69156687 ICD Code: Z51.81 - ENCOUNTER FOR THERAPEUTIC DRUG LEVEL MONITORING; Z79.01 - CARE HOME (CURRENT) USE OF ANTICOAGULANTS Status: Chronic Priority: Medium Current Visit: No (9) History of aspergillosis SNOMED Code(s): 008132627 ICD Code: Z86.19 - PERSONAL HISTORY OF OTHER INFECTIOUS AND PARASITIC DISEASES Status: Chronic Priority: High Current Visit: No - Patient Instructions Activity: As Tolerated Showering/Bathing: May Shower Notify Provider of: Fever, Increased Pain, Swelling and Redness, Drainage, Nausea and/or Vomiting Other/Special Instructions: continue home dressing changes. Continue antibiotics as previously prescribed. - Discharge Plan *PRESCRIPTION DRUG MONITORING PROGRAM REVIEWED*: Not Applicable *COPY OF PRESCRIPTION DRUG MONITORING REPORT IN PATIENT KECIA: Not Applicable Prescriptions/Med Rec: Azithromycin [Zithromax] 500 mg PO Q24H #6 tablet Furosemide [Lasix] 40 mg PO DAILY PRN #30 tablet PRN Reason: edema,sob Home Medications: Home Meds Apixaban [Eliquis] 5 mg PO BID tablet 07/21/18 [Rx] Metoprolol Tartrate [Lopressor] 50 mg PO BID tablet 07/21/18 [Rx] Gabapentin [Neurontin] 800 mg PO QID 08/05/18 [History] HYDROmorphone [Dilaudid] 4 mg PO Q4H PRN 10/09/18 [History] Lansoprazole [Prevacid] 30 mg PO ACBREAKFAST 10/09/18 [History] predniSONE 20 mg PO QAM 10/09/18 [History] Furosemide 40 mg PO DAILY 11/08/18 [History] Midodrine 5 mg PO BID 03/15/19 [History] lisinopriL [Lisinopril] 2.5 mg PO DAILY 03/15/19 [History] Azithromycin [Zithromax] 500 mg PO Q24H #6 tablet 06/15/19 [Rx] Furosemide [Lasix] 40 mg PO DAILY PRN #30 tablet 06/15/19 [Rx] Patient Handouts: Hypoxia, Furosemide tablets, Azithromycin tablets, Heart Failure, [id number] Referrals: Connor Melchor MD [Primary Care Provider] - 06/26/19 12:30 pm (Be in the clinic 15 minutes before the appointment, bring photo ID and insurance card) - Discharge Summary/Plan Comment DC Time >30 min.: No Discharge Summary/Plan Comment: Admitting Diagnoses: Acute on chronic respiratory hypoxia failure Dyspnea CHF Bronchitis Discharge Diagnoses: Acute on chronic respiratory hypoxia failure- resolved Dyspnea- resolved CHF Bronchitis Juanpablo was admitted secondary to acute on chronic respiratory failure, notes to be hypoxic in ED, he was given IVFs and Duonebs. He was admitted given Azithromycin and increased steroid dose. He was also given Lasix in the evening after he was coughing up white clear phlegm very watery. Lasix helped significantly. He reports he takes this PRN at home, but has run out. We will refill this as well as give 4 more days of Azithromycin. He is to continue home medications and outpatient infusion for septic joint. He is to return to PCP in 1 week for follow up. He is to return to the ED or clinic if concerns should arise. - Patient Data Vitals - Most Recent: Last Vital Signs Temp 97.7 F 06/15/19 04:00 Pulse 99 06/15/19 07:54 Resp 18 06/15/19 04:00 BP 154/86 H 06/15/19 07:55 Pulse Ox 93 L 06/15/19 08:15 Weight - Most Recent: 68.039 kg I&O - Last 24 hours: Intake & Output 06/14/19 06/15/19 06/15/19 22:59 06:59 14:59 Intake Total 1000 Output Total 2170 Balance -1170 Lab Results - Last 24 hrs: Laboratory Results - last 24 hr 06/14/19 06/14/19 06/14/19 Range/Units 10:55 10:55 10:55 WBC 8.65 (4.0-11.0) K/uL RBC 3.60 L (4.50-5.90) M/uL Hgb 9.4 L (13.0-17.0) g/dL Hct 33.2 L (38.0-50.0) % MCV 92.2 (80.0-98.0) fL MCH 26.1 L (27.0-32.0) pg MCHC 28.3 L (31.0-37.0) g/dL RDW Std Deviation 80.9 H (28.0-62.0) fl RDW Coeff of Tre 25 H (11.0-15.0) % Plt Count 255 (150-400) K/uL MPV 9.50 (7.40-12.00) fL Add Manual Diff YES Neutrophils % (Manual) 65 (48.0-80.0) % Band Neutrophils % 7 % Lymphocytes % (Manual) 22 (16.0-40.0) % Monocytes % (Manual) 4 (0.0-15.0) % Eosinophils % (Manual) 2 (0.0-7.0) % Metamyelocytes % % Myelocytes % % Nucleated RBC % 0.8 /100WBC Absolute Seg Neuts 5.6 (1.4-5.7) Band Neutrophils # 0.6 Lymphocytes # (Manual) 1.9 (0.6-2.4) Monocytes # (Manual) 0.3 (0.0-0.8) Eosinophils # (Manual) 0.2 (0.0-0.7) Absolute Metamyelocyte Absolute Myelocytes Nucleated RBCs # 0 K/uL Hypochromasia 2+ MODERATE INR Lactate 1.3 (0.20-2.00) mmol/L Sodium 141 (136-148) mmol/L Potassium 4.0 (3.5-5.1) mmol/L Chloride 103 (98-107) mmol/L Carbon Dioxide 32.3 H (21.0-32.0) mmol/L BUN 27 H (7.0-18.0) mg/dL Creatinine 1.1 (0.8-1.3) mg/dL Est Cr Clr Drug Dosing 62.90 mL/min Estimated GFR (MDRD) > 60.0 ml/min Glucose 113 H (74-106) mg/dL Calcium 8.6 (8.5-10.1) mg/dL Phosphorus (2.6-4.7) mg/dL Magnesium (1.8-2.4) mg/dL Total Bilirubin 0.2 (0.2-1.0) mg/dL AST 28 (15-37) IU/L ALT 29 (14-63) IU/L Alkaline Phosphatase 66 (46-116) U/L Troponin I (0.000-0.056) ng/mL B-Natriuretic Peptide (<100) PG/ML Total Protein 6.8 (6.4-8.2) g/dL Albumin 2.7 L (3.4-5.0) g/dL Globulin 4.1 H (2.6-4.0) g/dL Albumin/Globulin Ratio 0.7 L (0.9-1.6) Urine Color Urine Appearance Urine pH (5.0-8.0) Ur Specific [place] (1.001-1.035) Urine Protein (NEGATIVE) mg/dL Urine Glucose (UA) (NEGATIVE) mg/dL Urine Ketones (NEGATIVE) mg/dL Urine Occult Blood (NEGATIVE) Urine Nitrite (NEGATIVE) Urine Bilirubin (NEGATIVE) Urine Urobilinogen (<2.0) EU/dL Ur Leukocyte Esterase (NEGATIVE) Urine RBC (0-2/HPF) Urine WBC (0-5/HPF) Ur Epithelial Cells (NONE-FEW) Urine Bacteria (NEGATIVE) 06/14/19 06/14/19 06/14/19 Range/Units 10:55 11:32 12:00 WBC (4.0-11.0) K/uL RBC (4.50-5.90) M/uL Hgb (13.0-17.0) g/dL Hct (38.0-50.0) % MCV (80.0-98.0) fL MCH (27.0-32.0) pg MCHC (31.0-37.0) g/dL RDW Std Deviation (28.0-62.0) fl RDW Coeff of Tre (11.0-15.0) % Plt Count (150-400) K/uL MPV (7.40-12.00) fL Add Manual Diff Neutrophils % (Manual) (48.0-80.0) % Band Neutrophils % % Lymphocytes % (Manual) (16.0-40.0) % Monocytes % (Manual) (0.0-15.0) % Eosinophils % (Manual) (0.0-7.0) % Metamyelocytes % % Myelocytes % % Nucleated RBC % /100WBC Absolute Seg Neuts (1.4-5.7) Band Neutrophils # Lymphocytes # (Manual) (0.6-2.4) Monocytes # (Manual) (0.0-0.8) Eosinophils # (Manual) (0.0-0.7) Absolute Metamyelocyte Absolute Myelocytes Nucleated RBCs # K/uL Hypochromasia INR 1.02 Lactate (0.20-2.00) mmol/L Sodium (136-148) mmol/L Potassium (3.5-5.1) mmol/L Chloride (98-107) mmol/L Carbon Dioxide (21.0-32.0) mmol/L BUN (7.0-18.0) mg/dL Creatinine (0.8-1.3) mg/dL Est Cr Clr Drug Dosing mL/min Estimated GFR (MDRD) ml/min Glucose (74-106) mg/dL Calcium (8.5-10.1) mg/dL Phosphorus (2.6-4.7) mg/dL Magnesium (1.8-2.4) mg/dL Total Bilirubin (0.2-1.0) mg/dL AST (15-37) IU/L ALT (14-63) IU/L Alkaline Phosphatase (46-116) U/L Troponin I (0.000-0.056) ng/mL B-Natriuretic Peptide 749 H (<100) PG/ML Total Protein (6.4-8.2) g/dL Albumin (3.4-5.0) g/dL Globulin (2.6-4.0) g/dL Albumin/Globulin Ratio (0.9-1.6) Urine Color YELLOW Urine Appearance CLEAR Urine pH 6.0 (5.0-8.0) Ur Specific [place] 1.025 (1.001-1.035) Urine Protein TRACE H (NEGATIVE) mg/dL Urine Glucose (UA) NEGATIVE (NEGATIVE) mg/dL Urine Ketones NEGATIVE (NEGATIVE) mg/dL Urine Occult Blood NEGATIVE (NEGATIVE) Urine Nitrite NEGATIVE (NEGATIVE) Urine Bilirubin NEGATIVE (NEGATIVE) Urine Urobilinogen 0.2 (<2.0) EU/dL Ur Leukocyte Esterase NEGATIVE (NEGATIVE) Urine RBC 0-3 (0-2/HPF) Urine WBC 0-3 (0-5/HPF) Ur Epithelial Cells RARE (NONE-FEW) Urine Bacteria FEW (NEGATIVE) 06/14/19 06/14/19 06/15/19 Range/Units 22:03 22:03 05:32 WBC 4.54 (4.0-11.0) K/uL RBC 3.48 L (4.50-5.90) M/uL Hgb 9.2 L (13.0-17.0) g/dL Hct 31.0 L (38.0-50.0) % MCV 89.1 (80.0-98.0) fL MCH 26.4 L (27.0-32.0) pg MCHC 29.7 L (31.0-37.0) g/dL RDW Std Deviation 75.6 H (28.0-62.0) fl RDW Coeff of Tre 24 H (11.0-15.0) % Plt Count 246 (150-400) K/uL MPV 9.50 (7.40-12.00) fL Add Manual Diff YES Neutrophils % (Manual) 68 (48.0-80.0) % Band Neutrophils % 10 % Lymphocytes % (Manual) 18 (16.0-40.0) % Monocytes % (Manual) 2 (0.0-15.0) % Eosinophils % (Manual) (0.0-7.0) % Metamyelocytes % 1 % Myelocytes % 1 % Nucleated RBC % 0.0 /100WBC Absolute Seg Neuts 3.1 (1.4-5.7) Band Neutrophils # 0.5 Lymphocytes # (Manual) 0.8 (0.6-2.4) Monocytes # (Manual) 0.1 (0.0-0.8) Eosinophils # (Manual) (0.0-0.7) Absolute Metamyelocyte 0 Absolute Myelocytes 0 Nucleated RBCs # 0 K/uL Hypochromasia INR Lactate (0.20-2.00) mmol/L Sodium (136-148) mmol/L Potassium (3.5-5.1) mmol/L Chloride (98-107) mmol/L Carbon Dioxide (21.0-32.0) mmol/L BUN (7.0-18.0) mg/dL Creatinine (0.8-1.3) mg/dL Est Cr Clr Drug Dosing mL/min Estimated GFR (MDRD) ml/min Glucose (74-106) mg/dL Calcium (8.5-10.1) mg/dL Phosphorus 2.2 L (2.6-4.7) mg/dL Magnesium 1.7 L (1.8-2.4) mg/dL Total Bilirubin (0.2-1.0) mg/dL AST (15-37) IU/L ALT (14-63) IU/L Alkaline Phosphatase (46-116) U/L Troponin I < 0.050 (0.000-0.056) ng/mL B-Natriuretic Peptide (<100) PG/ML Total Protein (6.4-8.2) g/dL Albumin (3.4-5.0) g/dL Globulin (2.6-4.0) g/dL Albumin/Globulin Ratio (0.9-1.6) Urine Color Urine Appearance Urine pH (5.0-8.0) Ur Specific [place] (1.001-1.035) Urine Protein (NEGATIVE) mg/dL Urine Glucose (UA) (NEGATIVE) mg/dL Urine Ketones (NEGATIVE) mg/dL Urine Occult Blood (NEGATIVE) Urine Nitrite (NEGATIVE) Urine Bilirubin (NEGATIVE) Urine Urobilinogen (<2.0) EU/dL Ur Leukocyte Esterase (NEGATIVE) Urine RBC (0-2/HPF) Urine WBC (0-5/HPF) Ur Epithelial Cells (NONE-FEW) Urine Bacteria (NEGATIVE) 06/15/19 Range/Units 05:32 WBC (4.0-11.0) K/uL RBC (4.50-5.90) M/uL Hgb (13.0-17.0) g/dL Hct (38.0-50.0) % MCV (80.0-98.0) fL MCH (27.0-32.0) pg MCHC (31.0-37.0) g/dL RDW Std Deviation (28.0-62.0) fl RDW Coeff of Tre (11.0-15.0) % Plt Count (150-400) K/uL MPV (7.40-12.00) fL Add Manual Diff Neutrophils % (Manual) (48.0-80.0) % Band Neutrophils % % Lymphocytes % (Manual) (16.0-40.0) % Monocytes % (Manual) (0.0-15.0) % Eosinophils % (Manual) (0.0-7.0) % Metamyelocytes % % Myelocytes % % Nucleated RBC % /100WBC Absolute Seg Neuts (1.4-5.7) Band Neutrophils # Lymphocytes # (Manual) (0.6-2.4) Monocytes # (Manual) (0.0-0.8) Eosinophils # (Manual) (0.0-0.7) Absolute Metamyelocyte Absolute Myelocytes Nucleated RBCs # K/uL Hypochromasia INR Lactate (0.20-2.00) mmol/L Sodium 140 (136-148) mmol/L Potassium 3.9 (3.5-5.1) mmol/L Chloride 101 (98-107) mmol/L Carbon Dioxide 34.8 H (21.0-32.0) mmol/L BUN 26 H (7.0-18.0) mg/dL Creatinine 1.0 (0.8-1.3) mg/dL Est Cr Clr Drug Dosing 69.19 mL/min Estimated GFR (MDRD) > 60.0 ml/min Glucose 153 H (74-106) mg/dL Calcium 8.7 (8.5-10.1) mg/dL Phosphorus (2.6-4.7) mg/dL Magnesium (1.8-2.4) mg/dL Total Bilirubin (0.2-1.0) mg/dL AST (15-37) IU/L ALT (14-63) IU/L Alkaline Phosphatase (46-116) U/L Troponin I (0.000-0.056) ng/mL B-Natriuretic Peptide (<100) PG/ML Total Protein (6.4-8.2) g/dL Albumin (3.4-5.0) g/dL Globulin (2.6-4.0) g/dL Albumin/Globulin Ratio (0.9-1.6) Urine Color Urine Appearance Urine pH (5.0-8.0) Ur Specific [place] (1.001-1.035) Urine Protein (NEGATIVE) mg/dL Urine Glucose (UA) (NEGATIVE) mg/dL Urine Ketones (NEGATIVE) mg/dL Urine Occult Blood (NEGATIVE) Urine Nitrite (NEGATIVE) Urine Bilirubin (NEGATIVE) Urine Urobilinogen (<2.0) EU/dL Ur Leukocyte Esterase (NEGATIVE) Urine RBC (0-2/HPF) Urine WBC (0-5/HPF) Ur Epithelial Cells (NONE-FEW) Urine Bacteria (NEGATIVE) SHILOH Results - Last 24 hrs: Microbiology 06/14/19 10:58 Influenza Type A Antigen Screen - Final Nasopharyngeal Swab NEGATIVE INFLUENZA A VIRUS AG REFERENCE RANGE: NEGATIVE Influenza Type B Antigen Screen - Final NEGATIVE INFLUENZA B VIRUS AG REFERENCE RANGE: NEGATIVE 06/14/19 10:58 Group A Streptococcus Rapid Screen - Final Throat NEGATIVE STREP A SCREEN REFERENCE RANGE: NEGATIVE Med Orders - Current: Current Medications Acetaminophen (Tylenol) 650 mg PO Q4H PRN PRN Reason: Pain Albuterol/Ipratropium (Duoneb 3.0-0.5 Mg/3 Ml) 3 ml NEB Q4HRRT [facility] Last Admin: 06/15/19 10:18 Dose: 3 ml Apixaban (Eliquis) 5 mg PO BID [facility] Last Admin: 06/15/19 08:15 Dose: Not Given Azithromycin (Zithromax) 500 mg PO Q24H [facility] Last Admin: 06/14/19 17:33 Dose: 500 mg Benzocaine/Menthol (Cepacol Sore Throat) 1 lozenge MUCMEM Q6H PRN PRN Reason: Sore Throat Last Admin: 06/14/19 22:07 Dose: 1 lozenge Furosemide (Lasix) 40 mg PO DAILY [facility] Last Admin: 06/15/19 08:16 Dose: Not Given Gabapentin (Neurontin) 800 mg PO QID [facility] Last Admin: 06/15/19 06:32 Dose: 800 mg Hydromorphone HCl (Dilaudid) 4 mg PO Q4H PRN PRN Reason: Pain Last Admin: 06/14/19 17:36 Dose: 4 mg Ceftriaxone Sodium/Dextrose 2 (gm/ Premix) 50 mls @ 100 mls/hr IV Q24H [facility] Last Admin: 06/15/19 09:01 Dose: 100 mls/hr Lansoprazole (Prevacid Solutab) 30 mg PO ACBREAKFAST [facility] Last Admin: 06/15/19 06:32 Dose: 30 mg Lisinopril (Prinivil) 2.5 mg PO DAILY [facility] Last Admin: 06/15/19 08:16 Dose: Not Given Methylprednisolone Sodium Succinate (Solu-Medrol) 40 mg IVPUSH Q8H [facility] Last Admin: 06/15/19 06:32 Dose: 40 mg Metoprolol Tartrate (Lopressor) 50 mg PO BID [facility] Last Admin: 06/15/19 08:16 Dose: Not Given Midodrine (Midodrine) 5 mg PO BID@0900,1600 [facility] Last Admin: 06/15/19 08:16 Dose: Not Given Ondansetron HCl (Zofran) 4 mg IVPUSH Q4H PRN PRN Reason: Nausea Discontinued Medications Albuterol/Ipratropium (Duoneb 3.0-0.5 Mg/3 Ml) 3 ml NEB ONETIME ONE Stop: 06/14/19 10:53 Last Admin: 06/14/19 11:02 Dose: 3 ml Furosemide (Lasix) 40 mg IVPUSH NOW ONE Stop: 06/14/19 23:21 Last Admin: 06/15/19 00:21 Dose: 40 mg Furosemide (Lasix) 40 mg IVPUSH NOW ONE Stop: 06/15/19 10:15 Sodium Chloride (Normal Saline) 1,000 mls @ 999 mls/hr IV STAT ONE Stop: 06/14/19 11:52 Last Admin: 06/14/19 11:36 Dose: 100 mls/hr Magnesium Sulfate 2 gm/ Premix 50 mls @ 50 mls/hr IV ONETIME ONE Stop: 06/15/19 00:20 Last Admin: 06/15/19 00:21 Dose: 50 mls/hr Iopamidol (Isovue Multipack-370 (76%)) 50 ml IVPUSH ONETIME STA Stop: 06/14/19 13:17 Last Admin: 06/14/19 13:17 Dose: 50 ml Methylprednisolone Sodium Succinate (Solu-Medrol) 125 mg IVPUSH ONETIME ONE Stop: 06/14/19 15:27 Last Admin: 06/14/19 15:53 Dose: 125 mg Sodium Phosphate (Neutra-Phos) 250 mg PO ONETIME ONE Stop: 06/14/19 23:22 Last Admin: 06/15/19 00:21 Dose: 250 mg
[2019-06-15] MEDS: HYDROmorphone 2 MG Tab PO PRN (14:29)
== END 2019-06-15 15:25 | disposition home or self-care (01) ==
LOC: MW.ED 10:26 → MW.MS 15:34
PROVIDERS: ADMIT Student in an Organized Health Care Education/Training Program; ATTEND Student in an Organized Health Care Education/Training Program
DX: J96.21 Acute and chronic respiratory failure with hypoxia (principal); J44.1 Chronic obstructive pulmonary disease with (acute) exacerbation; B44.81 Allergic bronchopulmonary aspergillosis; D84.8 Other specified immunodeficiencies; T38.0X5A Adverse effect of glucocorticoids and synthetic analogues, initial encounter; I48.19 Other persistent atrial fibrillation; I11.0 Hypertensive heart disease with heart failure; I50.9 Heart failure, unspecified; I25.2 Old myocardial infarction; K21.9 Gastro-esophageal reflux disease without esophagitis; G89.29 Other chronic pain; M54.9 Dorsalgia, unspecified; F41.9 Anxiety disorder, unspecified; F32.9 Major depressive disorder, single episode, unspecified; Z79.01 Long term (current) use of anticoagulants; Z79.899 Other long term (current) drug therapy; Z88.1 Allergy status to other antibiotic agents; Z88.8 Allergy status to other drugs, medicaments and biological substances; Z86.73 Personal history of transient ischemic attack (TIA), and cerebral infarction without residual deficits
CPT/HCPCS: 36415; 71045; 71275; 80048; 80053; 81001; 83605; 83735; 83880; 84100; 84484; 85025; 85610; 87040; 87070; 87081; 87205; 87804; 87880; 93005; 94640; 96360; 96361; 99285; A9270; J0696; J1940; J2920; J2930; J3475; J7030; Q9967; 87186; 96365; 96375; 96376; 99284; G0378; J7620-GY

== ENCOUNTER 2019-08-05 08:46 | Emergency (ER) | payer MEDICARE, OTHER ==
[2019-08-05] MEDS ORDERED: Sodium Chloride 0.9% 10 ML Syringe FLUSH PRN (09:44)
[2019-08-05] MEDS ORDERED: Sodium Chloride 0.9% 2.5 ML Syringe FLUSH PRN (09:44)
[2019-08-05] MEDS ORDERED: methylPREDNISolone Sodium Succinate 125 MG/2 ML SDV IV ONE (09:45)
[2019-08-05] MEDS ORDERED: Albuterol 6.7 GM Inhaler INH ONE (09:46)
[2019-08-05] MEDS ORDERED: Albuterol 8 GM Inhaler INH STA (09:50)
--- NOTE | 2019-08-05 09:54 | EDM.PDOC ---
ED HPI GENERAL MEDICAL PROBLEM - General Chief Complaint: Respiratory Problem Stated Complaint: SHORTNESS OF BREATH Time Seen by Provider: 08/05/19 09:29 Source of Information: Reports: Patient History Limitations: Reports: No Limitations - History of Present Illness INITIAL COMMENTS - FREE TEXT/NARRATIVE: 39-year-old gentleman with a history of bronchopulmonary aspergillosis A. fib on AC septic joint presenting to ER for cough shortness of breath hypoxia. Patient states over the last couple days his phlegm have thickened and he is oxygen saturation at home has been in the high 80s. Also reports progressive shortness of breath. Has had episodes of hemoptysis. Denies leg swelling. Denies any chest pain. Denies any recent travel. Similar to prior episodes where his other chronic lung problems exacerbate. Right Shoulder Pain Score (Numeric/FACES): 6 - Related Data Allergies Allergy/AdvReac Type Severity Reaction Status Date / Time itraconazole [From Sporanox] Allergy Unknown Confusion Verified 08/05/19 09:06 levofloxacin [From Levaquin] Allergy Unknown Other Verified 08/05/19 09:06 Home Meds: Home Meds Apixaban [Eliquis] 5 mg PO BID tablet 07/21/18 [Rx] Metoprolol Tartrate [Lopressor] 50 mg PO BID tablet 07/21/18 [Rx] Gabapentin [Neurontin] 800 mg PO QID 08/05/18 [History] HYDROmorphone [Dilaudid] 4 mg PO Q4H PRN 10/09/18 [History] Lansoprazole [Prevacid] 30 mg PO ACBREAKFAST 10/09/18 [History] predniSONE 20 mg PO QAM 10/09/18 [History] Midodrine 5 mg PO BID 03/15/19 [History] Azithromycin [Zithromax] 500 mg PO Q24H #6 tablet 06/15/19 [Rx] Furosemide [Lasix] 40 mg PO DAILY PRN #30 tablet 06/15/19 [Rx] predniSONE 40 mg PO DAILY #8 tab 08/05/19 [Rx] Past Medical History HEENT History: Reports: Cataract Other HEENT History: dental fillings due to caries; recent tooth fracture Cardiovascular History: Reports: Afib, Cardiomyopathy, Heart Failure, Hypertension, MS Other Cardiovascular History: Heart attack April 2010 Respiratory History: Reports: Asthma, Bronchitis, Recurrent, PE, Pneumonia, Recurrent, Other (See Below) Other Respiratory History: Chronic pulmonary aspergillosis, 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 No explantation- -they apparently just treated him with IV abx for months. - Past Surgical History Head Surgeries/Procedures: Reports: None HEENT Surgical History: Reports: Cataract Surgery Cardiovascular Surgical History: Reports: None Respiratory Surgical History: Reports: Lung Resection Other Respiratory Surgeries/Procedures: intubated last Feb 2018 and transfered to [facility] Surgical History: Reports: Colonoscopy Male Surgical History: Reports: None Endocrine Surgical History: Reports: None Neurological Surgical History: Reports: None Musculoskeletal Surgical History: Reports: Amputation, Shoulder Surgery, Other ( See Below) Other Musculoskeletal Surgeries/Procedures:: L shoulder and left hip surgery Oncologic Surgical History: Reports: None Dermatological Surgical History: Reports: None Social & Family History - Family History Family Medical History: Noncontributory - Tobacco Use Smoking Status *Q: Never Smoker - Caffeine Use Caffeine Use: Reports: Coffee - Recreational Drug Use Recreational Drug Use: No - Living Situation & Occupation Living situation: Reports: Single, with Family (sons) Occupation: Disabled ED ROS GENERAL - Review of Systems Review Of Systems: Comprehensive ROS is negative, except as noted in HPI. ED EXAM, GENERAL - Physical Exam Exam: See Below Exam Limited By: No Limitations General Appearance: Alert, No Apparent Distress Ears: Normal External Exam Nose: Normal Inspection Throat/Mouth: Normal Inspection Head: Atraumatic Respiratory/Chest: Wheezing Cardiovascular: Normal Peripheral Pulses GI/Abdominal: Soft, Non-Tender Back Exam: Normal Inspection Extremities: Normal Inspection, No Pedal Edema Neurological: Alert, Oriented, Normal Cognition Psychiatric: Normal Affect Skin Exam: Warm, Dry Course - Vital Signs Last Recorded V/S: Last Vital Signs Temp 96.7 F L 08/05/19 09:08 Pulse 79 08/05/19 13:20 Resp 17 08/05/19 13:20 BP 120/81 08/05/19 13:20 Pulse Ox 93 L 08/05/19 13:20 - Orders/Labs/Meds Orders: Active Orders 24 hr Category Date Time Status EKG 12 Lead [EKG Documentation Completion] [RC] STAT Care 08/05/19 09:47 Active Pulse Oximetry [RC] ASDIRECTED Care 08/05/19 09:44 Active RT Post Treatment Assessment [RC] Click to Edit Care 08/05/19 09:47 Inactive RT Post Treatment Assessment [RC] Click to Edit Care 08/05/19 09:51 Active RT Pre-Treatment Assessment [RC] Click to Edit Care 08/05/19 09:47 Inactive RT Pre-Treatment Assessment [RC] Click to Edit Care 08/05/19 09:51 Active Sodium Chloride 0.9% [Saline Flush] Med 08/05/19 09:44 Active 10 ml FLUSH ASDIRECTED PRN Sodium Chloride 0.9% [Saline Flush] Med 08/05/19 09:44 Active 2.5 ml FLUSH ASDIRECTED PRN Isolation [COMM] Routine Oth 08/05/19 09:49 Active Saline Lock Insert [OM.PC] Stat Oth 08/05/19 09:44 Ordered Medication Orders Sodium Chloride (Saline Flush) 10 ml FLUSH ASDIRECTED PRN PRN Reason: Keep Vein Open Last Admin: 08/05/19 10:14 Dose: 10 ml Sodium Chloride (Saline Flush) 2.5 ml FLUSH ASDIRECTED PRN PRN Reason: Keep Vein Open Last Admin: 08/05/19 10:14 Dose: 2.5 ml Labs: Laboratory Tests 03/22/20 03/22/20 03/22/20 Range/Units 11:35 11:35 12:20 WBC 12.40 H (4.0-11.0) K/uL RBC 4.51 (4.50-5.90) M/uL Hgb 13.2 (13.0-17.0) g/dL Hct 44.1 (38.0-50.0) % MCV 97.8 (80.0-98.0) fL MCH 29.3 (27.0-32.0) pg MCHC 29.9 L (31.0-37.0) g/dL RDW Std Deviation 69.2 H (28.0-62.0) fl RDW Coeff of Tre 19 H (11.0-15.0) % Plt Count 152 (150-400) K/uL MPV 11.10 (7.40-12.00) fL Neut % (Auto) 87.2 H (48.0-80.0) % Lymph % (Auto) 9.9 L (16.0-40.0) % [place] % (Auto) 2.8 (0.0-15.0) % Eos % (Auto) 0.0 (0.0-7.0) % Baso % (Auto) 0.1 (0.0-1.5) % Neut # (Auto) 10.8 H (1.4-5.7) K/uL Lymph # (Auto) 1.2 (0.6-2.4) K/uL [place] # (Auto) 0.4 (0.0-0.8) K/uL Eos # (Auto) 0.0 (0.0-0.7) K/uL Baso # (Auto) 0.0 (0.0-0.1) K/uL Nucleated RBC % 0.0 /100WBC Nucleated RBCs # 0 K/uL INR 0.99 Sodium 140 (136-148) mmol/L Potassium 5.0 (3.5-5.1) mmol/L Chloride 103 (98-107) mmol/L Carbon Dioxide 25.8 (21.0-32.0) mmol/L BUN 48 H (7.0-18.0) mg/dL Creatinine 1.4 H (0.8-1.3) mg/dL Est Cr Clr Drug Dosing 49.42 mL/min Estimated GFR (MDRD) 51.9 ml/min Glucose 135 H (74-106) mg/dL Calcium 8.7 (8.5-10.1) mg/dL Total Bilirubin 0.3 (0.2-1.0) mg/dL AST 33 (15-37) IU/L ALT 29 (14-63) IU/L Alkaline Phosphatase 67 (46-116) U/L Total Protein 7.5 (6.4-8.2) g/dL Albumin 3.7 (3.4-5.0) g/dL Globulin 3.8 (2.6-4.0) g/dL Albumin/Globulin Ratio 1.0 (0.9-1.6) Meds: Medications Generic Name Dose Route Start Last Admin Trade Name Freq PRN Reason Stop Dose Admin Sodium Chloride 10 ml 08/05/19 09:44 08/05/19 10:14 Saline Flush FLUSH 10 ml ASDIRECTED PRN Administration Keep Vein Open Sodium Chloride 2.5 ml 08/05/19 09:44 08/05/19 10:14 Saline Flush FLUSH 2.5 ml ASDIRECTED PRN Administration Keep Vein Open Discontinued Medications Generic Name Dose Route Start Last Admin Trade Name Freq PRN Reason Stop Dose Admin Albuterol 0 gm 08/05/19 09:46 08/05/19 10:39 Proventil Hfa INH 08/05/19 09:47 Not Given ONETIME ONE Albuterol 2 gm 08/05/19 09:50 08/05/19 10:13 Ventolin Hfa INH 08/05/19 09:51 2 gm Q2H STA Administration Methylprednisolone Sodium Succinate 125 mg 08/05/19 09:45 08/05/19 10:14 Solu-Medrol IV 08/05/19 09:46 125 mg ONETIME ONE Administration Departure - Departure Time of Disposition: 13:42 Disposition: Home, Self-Care 01 Condition: Good Clinical Impression: Cough, COPD (chronic obstructive pulmonary disease) - Discharge Information Prescriptions: predniSONE 40 mg PO DAILY #8 tab Referrals: Connor Melchor MD [Primary Care Provider] - Forms: ED Department Discharge Additional Instructions: self isolate till: You have had no fever for at least 72 hours (that is three full days of no fever without the use medicine that reduces fevers) AND other symptoms have improved (for example, when your cough or shortness of breath have improved) AND at least 7 days have passed since your symptoms first appeared return to ED if you cough blood, get fever, worsening shortness of breath or any concerns. The following information is given to patients seen in the emergency department who are being discharged to home. This information is to outline your options for follow-up care. We provide all patients seen in our emergency department with a follow-up referral. The need for follow-up, as well as the timing and circumstances, are variable depending upon the specifics of your emergency department visit. If you don't have a primary care physician on staff, we will provide you with a referral. We always advise you to contact your personal physician following an emergency department visit to inform them of the circumstance of the visit and for follow-up with them and/or the need for any referrals to a consulting specialist. The emergency department will also refer you to a specialist when appropriate. This referral assures that you have the opportunity for follow-up care with a specialist. All of these measure are taken in an effort to provide you with optimal care, which includes your follow-up. Under all circumstances we always encourage you to contact your private physician who remains a resource for coordinating your care. When calling for follow-up care, please make the office aware that this follow-up is from your recent emergency room visit. If for any reason you are refused follow-up, please contact the [facility] Emergency Department at and asked to speak to the emergency department charge nurse. Sepsis Event Note - Evaluation Sepsis Screening Result: No Definite Risk - Focused Exam Vital Signs: Vital Signs Temp Pulse Resp BP Pulse Ox 08/05/19 13:20 79 17 120/81 93 L 08/05/19 11:30 75 18 137/96 H 96 08/05/19 11:00 78 20 123/90 97 08/05/19 09:55 81 20 123/82 97 08/05/19 09:08 96.7 F L 96 20 113/76 94 L Date Exam was Performed: 08/05/19 Time Exam was Performed: 13:42 - My Orders Last 24 Hours: My Active Orders 08/05/19 09:44 Pulse Oximetry [RC] ASDIRECTED Sodium Chloride 0.9% [Saline Flush] 10 ml FLUSH ASDIRECTED PRN Sodium Chloride 0.9% [Saline Flush] 2.5 ml FLUSH ASDIRECTED PRN Saline Lock Insert [OM.PC] Stat 08/05/19 09:47 EKG 12 Lead [EKG Documentation Completion] [RC] STAT RT Post Treatment Assessment [RC] Click to Edit RT Pre-Treatment Assessment [RC] Click to Edit 08/05/19 09:49 Isolation [COMM] Routine 08/05/19 09:51 RT Post Treatment Assessment [RC] Click to Edit RT Pre-Treatment Assessment [RC] Click to Edit - Assessment/Plan Last 24 Hours: My Active Orders 08/05/19 09:44 Pulse Oximetry [RC] ASDIRECTED Sodium Chloride 0.9% [Saline Flush] 10 ml FLUSH ASDIRECTED PRN Sodium Chloride 0.9% [Saline Flush] 2.5 ml FLUSH ASDIRECTED PRN Saline Lock Insert [OM.PC] Stat 08/05/19 09:47 EKG 12 Lead [EKG Documentation Completion] [RC] STAT RT Post Treatment Assessment [RC] Click to Edit RT Pre-Treatment Assessment [RC] Click to Edit 08/05/19 09:49 Isolation [COMM] Routine 08/05/19 09:51 RT Post Treatment Assessment [RC] Click to Edit RT Pre-Treatment Assessment [RC] Click to Edit
--- NOTE | 2019-08-05 10:23 | CR ---
INDICATION: 59 year-old male." Possible COVID." TECHNIQUE: AP portable chest. COMPARISON: June 14, 2019. FINDINGS: Overall heart size is toward the upper limit of normal accentuated by the portable technique. Both lungs are clear. There are postsurgical changes in the right hilum with small surgical clips. There is a left reversed total shoulder arthroplasty. A previously identified left PICC line has been removed. Possible erosion or resection of the right humeral head incompletely visualized. Please see chest x-ray June 14, 2019. IMPRESSION : No acute cardiopulmonary process calculi identified. Dictated by Claudy Ness MD @ Aug 05 2019 10:20AM Signed by Dr. Claudy Ness @ Aug 05 2019 10:23AM
[2019-08-05 12:21] LABS: CARBON DIOXIDE,CO2 25.8 mmol/L (21.0-32.0)
[2019-08-05 14:16] VITALS: BP 123/74; PULSE 78
== END 2019-08-05 14:16 | disposition home or self-care (01) ==
LOC: MW.ED 08:46
DX: J44.9 Chronic obstructive pulmonary disease, unspecified (principal); Z88.8 Allergy status to other drugs, medicaments and biological substances; Z88.1 Allergy status to other antibiotic agents; Z79.01 Long term (current) use of anticoagulants; Z79.899 Other long term (current) drug therapy
CPT/HCPCS: 36415; 71045; 80053; 85025; 85610; 87804; 93005; 96374; 99285; J2930; 99284; A9270-GY

== ENCOUNTER 2019-11-16 23:55 | Emergency (ER) | payer MEDICARE, OTHER ==
--- NOTE | 2019-11-17 00:33 | EDM.PDOC ---
ED HPI GENERAL MEDICAL PROBLEM - General Chief Complaint: Upper Extremity Injury/Pain Stated Complaint: PAIN Time Seen by Provider: 11/16/19 23:56 Source of Information: Reports: Patient, Old Records History Limitations: Reports: No Limitations - History of Present Illness INITIAL COMMENTS - FREE TEXT/NARRATIVE: 59-year-old male with past medical history of chronic renal insufficiency, chronic pain, COPD, CHF, cardiomyopathy presenting with left shoulder pain. 4- day history of pain to the posterior aspect of the left proximal humerus and the posterior aspect the left trapezius. Worse with movement, better with rest. Described as "nerve pain". Radiates up into the left side of the neck. No history of trauma to the neck or shoulder. Denies any swelling, fever, or left upper extremity numbness or weakness. Intermittently taking ibuprofen at home without much relief. No other complaints. Left Shoulder Pain Score (Numeric/FACES): 8 - Related Data Allergies Allergy/AdvReac Type Severity Reaction Status Date / Time itraconazole [From Sporanox] Allergy Unknown Confusion Verified 08/05/19 09:06 levofloxacin [From Levaquin] Allergy Unknown Other Verified 08/05/19 09:06 Home Meds: Home Meds Apixaban [Eliquis] 5 mg PO BID tablet 07/21/18 [Rx] Metoprolol Tartrate [Lopressor] 50 mg PO BID tablet 07/21/18 [Rx] Gabapentin [Neurontin] 800 mg PO QID 08/05/18 [History] predniSONE 20 mg PO QAM 10/09/18 [History] Midodrine 5 mg PO BID 03/15/19 [History] Furosemide [Lasix] 40 mg PO DAILY PRN #30 tablet 06/15/19 [Rx] Past Medical History HEENT History: Reports: Cataract Other HEENT History: dental fillings due to caries; recent tooth fracture Cardiovascular History: Reports: Afib, Cardiomyopathy, Heart Failure, Hypertension, SC Other Cardiovascular History: Heart attack April 2010 Respiratory History: Reports: Asthma, Bronchitis, Recurrent, PE, Pneumonia, Recurrent, Other (See Below) Other Respiratory History: Chronic pulmonary aspergillosis, 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 bilateral achilles tendon ruptures and repair., hip replacement Neurological History: Reports: Neuropathy, Peripheral, TIA Other Neuro History: TIA 1999 Psychiatric History: Reports: Anxiety, Depression Endocrine/Metabolic History: Reports: Osteoporosis Hematologic History: Reports: Anticoagulation Therapy Immunologic History: Reports: Immunosuppression Oncologic (Cancer) History: Reports: None Other Oncologic History: melanoma of the right eye Dermatologic History: Reports: Cellulitis, Melanoma, Other (See Below) Other Dermatologic History: melanoma in the eye, fci steroid use - Infectious Disease History Infectious Disease History: Reports: Chicken Pox, Measles Other Infectious Disease History: 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 No explantation--they apparently just treated him with IV abx for months. - Past Surgical History Head Surgeries/Procedures: Reports: None HEENT Surgical History: Reports: Cataract Surgery Cardiovascular Surgical History: Reports: None Respiratory Surgical History: Reports: Lung Resection Other Respiratory Surgeries/Procedures: intubated last Feb 2018 and transfered to [facility] Surgical History: Reports: Colonoscopy Male Surgical History: Reports: None Endocrine Surgical History: Reports: None Neurological Surgical History: Reports: None Musculoskeletal Surgical History: Reports: Amputation, Shoulder Surgery, Other (See Below) Other Musculoskeletal Surgeries/Procedures:: L shoulder and left hip surgery. 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 with sx february 2020 Oncologic Surgical History: Reports: None Dermatological Surgical History: Reports: None Social & Family History - Family History Family Medical History: Noncontributory - Tobacco Use Smoking Status *Q: Never Smoker - Caffeine Use Caffeine Use: Reports: Coffee - Recreational Drug Use Recreational Drug Use: No - Living Situation & Occupation Living situation: Reports: Single, with Family (sons) Occupation: Disabled Review of Systems - Review of Systems Review Of Systems: See Below Constitutional: Denies: Chills, Fever Respiratory: Denies: Shortness of Breath Cardiovascular: Denies: Chest Pain Musculoskeletal: Reports: Shoulder Pain, Arm Pain. Denies: Neck Pain, Back Pain, Hand Pain, Leg Pain, Foot Pain Neurological: Denies: Numbness, Paresthesia, Pre-Existing Deficit, Tingling ED EXAM, GENERAL - Physical Exam Exam: See Below Free Text/Narrative:: Vital signs reviewed. Nursing notes reviewed. Constitutional: Awake, alert, non-distressed. Head: Normocephalic, atraumatic. Neck: Supple, nontender, somewhat limited extension due to pain radiating from the left trapezius and left side of the neck. Eyes: EOMI, conjunctiva normal, no discharge, no scleral icterus. Ears, Nose, Throat: External ears and nose normal, moist oral mucosa. Cardiovascular: 2+ left radial pulse, capillary refill less than 2 seconds. Pulmonary: normal work of breathing, no accessory muscle use. Abdomen/GI: Soft, nontender, nondistended, no guarding or rigidity, no masses. Musculoskeletal: No deformities. Normal symmetric grease maker head strength, normal active range of motion of the left elbow and left shoulder joints. Mild tenderness to palpation of the posterior aspect of the left humerus and the left trapezius. Integumentary: Appropriate color for ethnicity, warm, dry, no pallor or jaundice, no rash. Neurologic: Alert, answering questions appropriately, normal speech, no facial droop, moving all extremities well. Sensation intact light touch in left upper extremity, able to make thumbs up, abduct all fingers left hand, and extend left wrist against resistance. Normal sensation in all nerve distributions of the left upper extremity Psychiatric: Appropriate mood and affect, normal thought process. EKG INTERPRETATION EKG Interpretation Comments: 12-Lead ECG Interpretation Acquired: 12:42 AM Rhythm: Sinus rhythm Rate: 95 bpm [place]ie: Normal Intervals: Normal Ectopy: Lone PAC Ischemic Changes: None apparent RV Strain: No obvious RV strain pattern. ST Segments/T-Waves: T wave inversions in aVL, previously seen Interpretation: No significant change from most recent ECG 08/05/2019 Course - Vital Signs Text/Narrative:: Patient hemodynamically stable, afebrile, well-appearing, looks nontoxic. Differential diagnosis includes but is not limited to: Muscle strain, sprain, fracture, dislocation, cervical radiculopathy, cervical disc herniation, acute coronary syndrome, pulmonary embolism, zoster, etc. CBC and metabolic panel reassuring. Negative troponin with 4 days of left shoulder pain. Left shoulder x-rays showed no acute findings. Chest x-ray unremarkable. Pain improved after symptomatic treatment. Twelve-lead EKG is nonischemic appearing. Presentation seems to be consistent with musculoskeletal pain involving the left trapezius primarily. He exhibits normal range of motion of the left shoulder joint. No objective evidence of acute coronary ischemia. No radicular pain or numbness to suggest cervical radiculopathy. No evidence of fracture dislocation on x-rays. No central chest pain. No pleuritic chest pain or shortness of breath, not hypoxic or tachycardic. Plan: Patient is stable to discharge home with outpatient primary care follow- up. Recommended [id number]-exehlrs Tylenol, Motrin, lidocaine patches, heating pad. Patient did request "something stronger" and I explained that is not my clinical practice to prescribe opioid pain medications for musculoskeletal strain type pain. I encouraged him to follow-up with his primary doctor for reevaluation if symptoms did not improve. Strict emergency department return precautions were provided, patient indicated understanding. All questions were answered prior to departure. Discharged in good condition. Last Recorded V/S: Last Vital Signs Temp 36.2 C 11/17/19 00:09 Pulse 87 11/17/19 00:09 Resp 20 11/17/19 00:09 BP 130/79 11/17/19 00:09 Pulse Ox 95 11/17/19 00:09 - Orders/Labs/Meds Orders: Active Orders 24 hr Category Date Time Status EKG 12 Lead [EKG Documentation Completion] [RC] STAT Care 11/17/19 00:33 Active Labs: Laboratory Tests 11/17/19 11/17/19 Range/Units 01:14 01:14 WBC 8.73 (4.0-11.0) K/uL RBC 4.21 L (4.50-5.90) M/uL Hgb 13.0 (13.0-17.0) g/dL Hct 40.5 (38.0-50.0) % MCV 96.2 (80.0-98.0) fL MCH 30.9 (27.0-32.0) pg MCHC 32.1 (31.0-37.0) g/dL RDW Std Deviation 52.6 (28.0-62.0) fl RDW Coeff of Tre 15 (11.0-15.0) % Plt Count 184 (150-400) K/uL MPV 10.00 (7.40-12.00) fL Add Manual Diff YES Neutrophils % (Manual) 62 (48.0-80.0) % Band Neutrophils % 1 % Lymphocytes % (Manual) 28 (16.0-40.0) % Monocytes % (Manual) 7 (0.0-15.0) % Eosinophils % (Manual) 1 (0.0-7.0) % Basophils % (Manual) 1 (0.0-1.5) % Absolute Seg Neuts 5.4 (1.4-5.7) Band Neutrophils # 0.1 Lymphocytes # (Manual) 2.4 (0.6-2.4) Monocytes # (Manual) 0.6 (0.0-0.8) Eosinophils # (Manual) 0.1 (0.0-0.7) Basophils # (Manual) 0.1 (0.0-0.1) Sodium 142 (136-148) mmol/L Potassium 4.1 (3.5-5.1) mmol/L Chloride 103 (98-107) mmol/L Carbon Dioxide 31.2 (21.0-32.0) mmol/L BUN 20 H (7.0-18.0) mg/dL Creatinine 1.1 (0.8-1.3) mg/dL Est Cr Clr Drug Dosing 62.90 mL/min Estimated GFR (MDRD) > 60.0 ml/min Glucose 86 (74-106) mg/dL Calcium 8.5 (8.5-10.1) mg/dL Troponin I < 0.050 (0.000-0.056) ng/mL Meds: Medications Discontinued Medications Generic Name Dose Route Start Last Admin Trade Name Shiv PRN Reason Stop Dose Admin Ibuprofen 400 mg 11/17/19 00:44 11/17/19 01:04 Motrin PO 11/17/19 00:45 400 mg ONETIME ONE Administration Lidocaine 700 mg 11/17/19 00:44 11/17/19 01:04 Lidoderm 5% TOP 11/17/19 00:45 700 mg ONETIME ONE Administration Oxycodone/Acetaminophen 2 tab 11/17/19 00:45 11/17/19 01:04 Percocet 325-5 Mg PO 11/17/19 00:46 2 tab ONETIME ONE Administration Departure - Departure Time of Disposition: 02:17 Disposition: Home, Self-Care 01 Condition: Good Clinical Impression: Acute pain of left shoulder - Discharge Information *PRESCRIPTION DRUG MONITORING PROGRAM REVIEWED*: Not Applicable *COPY OF PRESCRIPTION DRUG MONITORING REPORT IN PATIENT KECIA: Not Applicable Instructions: Shoulder Pain, Musculoskeletal Pain Referrals: Connor Melchor MD [Primary Care Provider] - 1 Week (As needed for follow-up of symptoms) Forms: ED Department Discharge Additional Instructions: Thank you for choosing the [facility] emergency department in [place] for your medical needs today. It was a pleasure caring for you. You were seen in the emergency department for left shoulder and left arm pain your x-rays, EKG, and blood work looked reassuring. I suspect musculoskeletal pain or possibly a muscle strain or spasm. You can take [id number] ibuprofen, acetaminophen, and try using a heating pad. I also recommend okob-pac-bribuwy lidocaine patches. If your symptoms persist I would follow-up with your primary medical clinic in the next few days. Warning signs to return to the ER include chest pain, trouble breathing, or any other new or worsening symptoms. Please return the emergency department immediately if your symptoms worsen or if you feel worse. The following information is given to patients seen in the emergency department who are being discharged. This information is to outline your options for follow-up care. We provide all patients seen in our emergency department with a follow-up referral. The need for follow-up, as well as the timing and circumstances, are variable depending upon the specifics of your emergency department visit. If you don't have a primary care physician on staff, we will provide you with a referral. We always advise you to contact your personal physician following an emergency department visit to inform them of the circumstance of the visit and for follow-up with them and/or the need for any referrals to a consulting specialist. The emergency department will also refer you to a specialist when appropriate. This referral assures that you have the opportunity for follow-up care with a specialist. All of these measure are taken in an effort to provide you with optimal care, which includes your follow-up. Under all circumstances we always encourage you to contact your private physician who remains a resource for coordinating your care. When calling for follow-up care, please make the office aware that this follow-up is from your recent emergency room visit. If for any reason you are refused follow-up, please contact the [facility] Emergency Department at and asked to speak to the emergency department charge nurse. If you do not have a primary care physician that is caring for you, you can contact these clinics below to set up an appointment to establish care: [facility] - Primary Care [address] [place] [id number] [facility] [address] [place] [id number] Sepsis Event Note (ED) - Evaluation Sepsis Screening Result: No Definite Risk - Focused Exam Vital Signs: Vital Signs Temp Pulse Resp BP Pulse Ox 11/17/19 00:09 36.2 C 87 20 130/79 95 - My Orders Last 24 Hours: My Active Orders 11/17/19 00:33 EKG 12 Lead [EKG Documentation Completion] [RC] STAT - Assessment/Plan Last 24 Hours: My Active Orders 11/17/19 00:33 EKG 12 Lead [EKG Documentation Completion] [RC] STAT
[2019-11-17] MEDS ORDERED: Lidocaine 5% 700 MG Patch TOP ONE (00:44)
[2019-11-17] MEDS ORDERED: Ibuprofen 400 MG Tab PO ONE (00:44)
[2019-11-17] MEDS ORDERED: Acetaminophen/oxyCODONE 325-5 MG Tab PO ONE (00:45)
[2019-11-17 01:44] LABS: BLOOD UREA NITROGEN,BUN 20 mg/dL (7.0-18.0); CARBON DIOXIDE,CO2 31.2 mmol/L (21.0-32.0); CHLORIDE,CL 103 mmol/L (98-107); GLUCOSE RANDOM 86 mg/dL (74-106); POTASSIUM,K 4.1 mmol/L (3.5-5.1); SODIUM,NA 142 mmol/L (136-148)
--- NOTE | 2019-11-17 02:04 | CR ---
INDICATION: Shoulder pain to proximal left humerus and left trapezius TECHNIQUE: Shoulder radiograph 3 views left COMPARISON: None FINDINGS: Bone: No acute fractures or aggressive bone lesions are identified. Heterotopic bone formation is seen inferior lateral to the acromion. Joint: A reverse left shoulder arthroplasty is present. The acromioclavicular joint is unremarkable. Soft tissue: Unremarkable. The visualized hemithorax is unremarkable in appearance. No radiopaque foreign bodies are seen. IMPRESSION: 1. No acute osseous injuries or abnormalities are noted. Dictated by Omi Alvarez MD @ 11/17/2019 2:02:35 AM Dictated by: Omi Alvarez MD @ 11/17/2019 02:02:39 (Electronically Signed)
--- NOTE | 2019-11-17 02:04 | CR ---
INDICATION: Left shoulder chest pain TECHNIQUE: Chest radiograph 1 view COMPARISON: 08/05/2019 FINDINGS: Mediastinum: The mediastinum is normal in appearance. The heart silhouette is normal in size and morphology. Lung: Both lungs are unremarkable in appearance. No sign of pleural effusion seen. No pneumothorax is identified. Bone and Soft tissue: Left reverse shoulder arthroplasty and partial resection of the right humeral head are noted without interval change. IMPRESSION: 1. No acute cardiopulmonary disease is seen. Dictated by Omi Alvarez MD @ 11/17/2019 2:03:36 AM Dictated by: Omi Alvarez MD @ 11/17/2019 02:03:39 (Electronically Signed)
[2019-11-17 02:47] VITALS: BP 128/77; PULSE 78
== END 2019-11-17 02:45 | disposition home or self-care (01) ==
LOC: MW.ED 23:55
DX: M25.512 Pain in left shoulder (principal); I48.91 Unspecified atrial fibrillation; I11.0 Hypertensive heart disease with heart failure; I50.9 Heart failure, unspecified; I25.2 Old myocardial infarction; J45.909 Unspecified asthma, uncomplicated; G62.9 Polyneuropathy, unspecified; F41.9 Anxiety disorder, unspecified; F32.9 Major depressive disorder, single episode, unspecified; Z88.1 Allergy status to other antibiotic agents; Z79.01 Long term (current) use of anticoagulants; Z79.899 Other long term (current) drug therapy; Z86.711 Personal history of pulmonary embolism; Z86.73 Personal history of transient ischemic attack (TIA), and cerebral infarction without residual deficits
CPT/HCPCS: 36415; 71045; 73030; 80048; 84484; 85025; 93005; 99284; A9270; 99283

== ENCOUNTER 2020-02-05 21:11 | Emergency (ER) | payer MEDICARE, OTHER ==
[2020-02-05] MEDS ORDERED: Lidocaine 1% 10 ML MDV INJECT ONE (21:24)
[2020-02-05] MEDS ORDERED: Diphtheria,Pertussis(Acell),Tetanus Vaccine 0.5 ML Syringe IM ONE (21:25)
--- NOTE | 2020-02-05 21:25 | EDM.PDOC ---
<Vic Boyle - Last Filed: 02/05/20 23:03> ED HPI GENERAL MEDICAL PROBLEM - General Chief Complaint: Laceration Stated Complaint: LEFT KNEE LACERATION Time Seen by Provider: 02/05/20 21:20 - History of Present Illness INITIAL COMMENTS - FREE TEXT/NARRATIVE: DME note: Left knee immobilizer ordered in order to assist with healing of significant laceration to left knee. Patient has been seen and evaluated by me. Patient reports that he has chronic pulmonary disease and he does feel slightly more short of breath than usual but that this is not unusual for him. Patient was concerned because of possible coronavirus exposure. Patient also reports that he thought that he might have some increased volume overload so he is significantly decreased the amount of p.o. fluid intake that he has been taking over the last 48 hours. Patient denies any other symptomatology at this time. Patient denies any recent fevers, shakes, chills, nausea, vomiting, diarrhea, dysuria, frequency, urgency. Patient has any chest pain or abdominal discomfort. Patient's labs in the ED today reveal normal CBC. Patient's coronavirus test is negative. Patient's BMP reveals an elevated BUN and creatinine from baseline however patient reports that he feels a he has had decreased p.o. intake secondary to concerns regarding volume overload over the last 48 hours. Patient's elevated BUN and creatinine are consistent with prerenal azotemia. I have discussed with the patient the need to increase p.o. fluid intake over the next 24 to 48 hours and to follow-up with his doctor for reevaluation of his renal function. Reassessment at the time of disposition demonstrates that the patient is in no acute distress. The patient has remained stable throughout the entire ED visit and is without objective evidence for acute process requiring urgent intervention or hospitalization. The patient is stable for discharge, counseling is provided as documented above, discussed symptomatic treatment and specific conditions for return. I have spoken with the patient/caregive and discussed todays findings, in addition to providing specific details for the plan of care. Questions are answered and there is agreement with the plan. - Related Data Allergies Allergy/AdvReac Type Severity Reaction Status Date / Time itraconazole [From Sporanox] Allergy Unknown Confusion Verified 02/05/20 21:26 levofloxacin [From Levaquin] Allergy Unknown Other Verified 02/05/20 21:26 Home Meds: Home Meds Apixaban [Eliquis] 5 mg PO BID tablet 07/21/18 [Rx] Metoprolol Tartrate [Lopressor] 50 mg PO BID tablet 07/21/18 [Rx] Gabapentin [Neurontin] 800 mg PO QID 08/05/18 [History] predniSONE 20 mg PO QAM 10/09/18 [History] Midodrine 5 mg PO BID 03/15/19 [History] Furosemide [Lasix] 40 mg PO DAILY PRN #30 tablet 06/15/19 [Rx] ED ROS GENERAL - Review of Systems Review Of Systems: See Below ED EXAM, SKIN/RASH Exam: See Below Departure - Departure Time of Disposition: 23:05 Disposition: Home, Self-Care 01 Condition: Good Clinical Impression: Fall in elderly patient, Dehydration, Prerenal azotemia Laceration of left knee Qualifiers: Encounter type: initial encounter Qualified Code(s): S81.012A - Laceration without foreign body, left knee, initial encounter - Discharge Information Instructions: Fall Prevention in the Home, Adult, [id number], Laceration Care, Adult, Rehydration, Adult, How to Use a Knee Immobilizer Referrals: Connor Melchor MD [Primary Care Provider] - Forms: ED Department Discharge Additional Instructions: Plan: 1. Keep the area clean and dry. Continue to monitor for signs of infection. Sutures to be removed in 10-14 days. 2. Tylenol and/or ibuprofen as needed for pain management. 3. Please follow-up with your primary care provider in the next 1-2 days. Return to the ED as needed and as discussed. Your BUN and your creatinine level today were 60 and 2.4. This is likely se condary to your decreased intake of fluid over the last 2 days. Please increase your fluid intake and follow-up with your doctor in 1 to 2 days to have your tests reevaluated. Please return to the ER if you have any worsening symptoms including shortness of breath, chest pain. You were placed in a knee immobilizer to use to help the wound heal over the next 10-14 days. You may take the immobilizer off to take a shower however I recommend that you keep it on as much as possible in order to minimize the risk of tearing of your sutures. The following information is given to patients seen in the emergency department who are being discharged to home. This information is to outline your options for follow-up care. We provide all patients seen in our emergency department with a follow-up referral. The need for follow-up, as well as the timing and circumstances, are variable depending upon the specifics of your emergency department visit. If you don't have a primary care physician on staff, we will provide you with a referral. We always advise you to contact your personal physician following an emergency department visit to inform them of the circumstance of the visit and for follow-up with them and/or the need for any referrals to a consulting specialist. The emergency department will also refer you to a specialist when appropriate. This referral assures that you have the opportunity for follow-up care with a specialist. All of these measure are taken in an effort to provide you with optimal care, which includes your follow-up. Under all circumstances we always encourage you to contact your private physician who remains a resource for coordinating your care. When calling for follow-up care, please make the office aware that this follow-up is from your recent emergency room visit. If for any reason you are refused follow-up, please contact the [facility] Emergency Department at and asked to speak to the emergency department charge nurse. <Vince Lopez E - Last Filed: 02/08/20 16:06> ED HPI GENERAL MEDICAL PROBLEM - General Source of Information: Reports: Patient History Limitations: Reports: No Limitations - History of Present Illness INITIAL COMMENTS - FREE TEXT/NARRATIVE: HISTORY AND PHYSICAL: History of present illness: Patient is a 60-year-old male who presents to the emergency room with complaints of a laceration to his left knee. He states he was attempting to walk over his oxygen cord when he tripped resulting in him falling on his knees. He has an 8 cm laceration to the left knee. He denies hitting his head or having any loss of consciousness. Upon my evaluation he requests to have his "potassium checked" as he has had some increased shortness of breath. He states the last time he had shortness of breath he had to be transferred out for hyperkalemia. He also states he lives with his son who works at [employer] and recently had an employee test positive for COVID, he does have some concern for this. Patient denies any fever, chills, headache, change in vision, syncope or near syncope. Denies any chest pain, back pain. Denies any abdominal pain, nausea, vomiting, diarrhea, constipation or dysuria. Has not noted any blood in urine or stool. Patient has been eating and drinking appropriately. Review of systems: As per history of present illness and below otherwise all systems reviewed and negative. Past medical history: As per history of present illness and as reviewed below otherwise noncontributory. Surgical history: As per history of present illness and as reviewed below otherwise noncontributory. Social history: See social history for further information Family history: As per history of present illness and as reviewed below otherwise noncontributory. Physical exam: General: Well developed and well nourished. Alert and orientated x 3. Nontoxic in appearance and in no acute distress. Vital signs are stable and have been reviewed by me. Nursing notes were reviewed. HEENT: Atraumatic, normocephalic, pupils equal and reactive bilaterally, negative for conjunctival pallor or scleral icterus, mucous membranes moist, TMs normal bilaterally, throat clear, neck supple, nontender, trachea midline. No drooling or trismus noted. No meningeal signs. No hot potato voice noted. Lungs: Clear to auscultation, breath sounds equal bilaterally, chest nontender. Normal work of breathing, no accessory muscles used. Heart: S1S2, regular rate and rhythm without overt murmur Abdomen: Soft, nondistended, nontender. Skin: 8cm laceration across knee cap, left. Otherwise skin is intact, warm, dry. No lesions or rashes noted. Hematologic: No petechiae or purpra. Mucosa appropriate color and normal nail bed color and refill. Extremities: Mild tenderness at knee laceration site. He moves all extremities per self without difficulty or deficits, negative for cords or calf pain. Neurovascular unremarkable. Neuro: Awake, alert, oriented. Cranial nerves II through XII unremarkable. Cerebellum unremarkable. Motor and sensory unremarkable throughout. Exam nonfocal. Psychiatric: Mood and affect are appropriate. Normal thought process. Answering questions appropriately. Notes: 1% lidocaine was used to anesthetize the area. Area was thoroughly cleansed and irrigated with wound wash. 4-0 nylon, #12 erupted sutures were placed. Bacitracin nonstick dressing was applied. Attending physician, Dr. Álvarez, has assumed care of this patient at 2200. He will wait on pending labs, EKG and x-ray report. He will disposition and treat the patient appropriately. Diagnostics: CBC, CMP, Troponin, EKG, CXR, Knee x-ray Therapeutics: Lidocaine, Bacitracin Impression: Laceration Plan: 1. Keep the area clean and dry. Continue to monitor for signs of infection. Sutures to be removed in 7-10 days. 2. Tylenol and/or ibuprofen as needed for pain management. 3. Please follow-up with your primary care provider in the next 1-2 days. Return to the ED as needed and as discussed. Definitive disposition and diagnosis as appropriate pending reevaluation and review of above. 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 No explantation--they apparently just treated him with IV abx for months. - Past Surgical History Head Surgeries/Procedures: Reports: None HEENT Surgical History: Reports: Cataract Surgery Cardiovascular Surgical History: Reports: None Respiratory Surgical History: Reports: Lung Resection Other Respiratory Surgeries/Procedures: intubated last Feb 2018 and transfered to [place] [facility] Surgical History: Reports: Colonoscopy Male Surgical History: Reports: None Endocrine Surgical History: Reports: None Neurological Surgical History: Reports: None Musculoskeletal Surgical History: Reports: Amputation, Shoulder Surgery, Other (See Below) Other Musculoskeletal Surgeries/Procedures:: L shoulder and left hip surgery. 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 with sx february 2020 Oncologic Surgical History: Reports: None Dermatological Surgical History: Reports: None Social & Family History - Family History Family Medical History: Noncontributory - Caffeine Use Caffeine Use: Reports: Coffee - Living Situation & Occupation Living situation: Reports: Single, with Family (sons) Occupation: Disabled ED SKIN PROCEDURES - Laceration/Wound Repair Left knee Appearance: Subcutaneous, Linear, Clean Distal NVT: Neuro & Vascular Intact, No Tendon Injury Anesthetic Type: Local Local Anesthetic Volume: Other (7) Skin Prep: Chlorhexidine (Hibiciens), Saline, Sterile Drape Saline Irrigation (cc's): 500 Exploration/Debridement/Repair: Wound Explored, In a Bloodless Field, No Foreign Material Found Closed with: Sutures Lac/Wound length In cm: 8 Suture Size: 4-0 # of Sutures: 12 Suture Type: Nylon, Interrupted, Simple Drain Placement: No Sterile Dressing Applied: Provider Tetanus Status Addressed: Yes Complications: No Course - Vital Signs Last Recorded V/S: Last Vital Signs Temp 97.8 F 02/05/20 21:28 Pulse 75 02/05/20 21:28 Resp 18 02/05/20 21:28 BP 115/71 02/05/20 21:28 Pulse Ox 92 L 02/05/20 21:28 - Orders/Labs/Meds Labs: Laboratory Tests 02/05/20 02/05/20 02/05/20 Range/Units 21:54 21:54 21:54 WBC 9.26 (4.0-11.0) K/uL RBC 4.13 L (4.50-5.90) M/uL Hgb 11.4 L (13.0-17.0) g/dL Hct 38.8 (38.0-50.0) % MCV 93.9 (80.0-98.0) fL MCH 27.6 (27.0-32.0) pg MCHC 29.4 L (31.0-37.0) g/dL RDW Std Deviation 55.9 (28.0-62.0) fl RDW Coeff of Tre 16 H (11.0-15.0) % Plt Count 183 (150-400) K/uL MPV 10.70 (7.40-12.00) fL Neut % (Auto) 82.8 H (48.0-80.0) % Lymph % (Auto) 13.5 L (16.0-40.0) % [place] % (Auto) 3.5 (0.0-15.0) % Eos % (Auto) 0.1 (0.0-7.0) % Baso % (Auto) 0.1 (0.0-1.5) % Neut # (Auto) 7.7 H (1.4-5.7) K/uL Lymph # (Auto) 1.3 (0.6-2.4) K/uL [place] # (Auto) 0.3 (0.0-0.8) K/uL Eos # (Auto) 0.0 (0.0-0.7) K/uL Baso # (Auto) 0.0 (0.0-0.1) K/uL Nucleated RBC % 0.2 /100WBC Nucleated RBCs # 0 K/uL INR 1.11 Sodium 141 (136-148) mmol/L Potassium 4.4 (3.5-5.1) mmol/L Chloride 102 (98-107) mmol/L Carbon Dioxide 31.2 (21.0-32.0) mmol/L BUN 61 H (7.0-18.0) mg/dL Creatinine 2.4 H (0.8-1.3) mg/dL Est Cr Clr Drug Dosing 27.09 mL/min Estimated GFR (MDRD) 27.8 ml/min Glucose 136 H (74-106) mg/dL Calcium 8.9 (8.5-10.1) mg/dL Total Bilirubin 0.3 (0.2-1.0) mg/dL AST 32 (15-37) IU/L ALT 34 (14-63) IU/L Alkaline Phosphatase 47 (46-116) U/L Troponin I < 0.050 (0.000-0.056) ng/mL Total Protein 7.2 (6.4-8.2) g/dL Albumin 3.2 L (3.4-5.0) g/dL Globulin 4.0 (2.6-4.0) g/dL Albumin/Globulin Ratio 0.8 L (0.9-1.6) SARS CoV-2 RNA Rapid [place] (NEGATIVE) 02/05/20 Range/Units 22:15 WBC (4.0-11.0) K/uL RBC (4.50-5.90) M/uL Hgb (13.0-17.0) g/dL Hct (38.0-50.0) % MCV (80.0-98.0) fL MCH (27.0-32.0) pg MCHC (31.0-37.0) g/dL RDW Std Deviation (28.0-62.0) fl RDW Coeff of Tre (11.0-15.0) % Plt Count (150-400) K/uL MPV (7.40-12.00) fL Neut % (Auto) (48.0-80.0) % Lymph % (Auto) (16.0-40.0) % [place] % (Auto) (0.0-15.0) % Eos % (Auto) (0.0-7.0) % Baso % (Auto) (0.0-1.5) % Neut # (Auto) (1.4-5.7) K/uL Lymph # (Auto) (0.6-2.4) K/uL [place] # (Auto) (0.0-0.8) K/uL Eos # (Auto) (0.0-0.7) K/uL Baso # (Auto) (0.0-0.1) K/uL Nucleated RBC % /100WBC Nucleated RBCs # K/uL INR Sodium (136-148) mmol/L Potassium (3.5-5.1) mmol/L Chloride (98-107) mmol/L Carbon Dioxide (21.0-32.0) mmol/L BUN (7.0-18.0) mg/dL Creatinine (0.8-1.3) mg/dL Est Cr Clr Drug Dosing mL/min Estimated GFR (MDRD) ml/min Glucose (74-106) mg/dL Calcium (8.5-10.1) mg/dL Total Bilirubin (0.2-1.0) mg/dL AST (15-37) IU/L ALT (14-63) IU/L Alkaline Phosphatase (46-116) U/L Troponin I (0.000-0.056) ng/mL Total Protein (6.4-8.2) g/dL Albumin (3.4-5.0) g/dL Globulin (2.6-4.0) g/dL Albumin/Globulin Ratio (0.9-1.6) SARS CoV-2 RNA Rapid [place] NEGATIVE (NEGATIVE) Meds: Medications Discontinued Medications Generic Name Dose Route Start Last Admin Trade Name Freq PRN Reason Stop Dose Admin Bacitracin 1 dose 02/05/20 23:02 02/05/20 23:49 Bacitracin Oint 1 Gm TOP 02/05/20 23:03 Not Given ONETIME ONE Diphtheria/Tetanus/Acell Pertussis 0.5 ml 02/05/20 21:25 02/05/20 22:03 Adacel IM 02/05/20 21:26 0.5 ml .ONCE ONE Administration Lidocaine HCl 10 ml 02/05/20 21:24 02/05/20 22:06 Xylocaine 1% INJECT 02/05/20 21:25 Not Given ONETIME ONE Lidocaine HCl Confirm 02/05/20 21:28 02/05/20 21:53 Xylocaine-Mpf 1% Administered 02/05/20 21:29 Not Given Dose 5 ml .ROUTE .STK-MED ONE Lidocaine HCl 50 mg 02/05/20 22:05 02/05/20 22:06 Xylocaine-Mpf 1% Sdv INJECT 02/05/20 22:06 Not Given ONETIME ONE Lidocaine HCl 5 ml 02/05/20 22:06 02/05/20 22:07 Xylocaine-Mpf 1% INJECT 02/05/20 22:07 5 ml ONETIME ONE Administration
[2020-02-05 21:31] VITALS: BP 115/71; PULSE 75
--- NOTE | 2020-02-05 21:53 | CR ---
Left knee: AP, lateral and sunrise patellar views left knee were obtained. Comparison: No prior knee exam is available. Fairly severe lateral joint space narrowing is noted. Mild medial joint space narrowing is also seen. No discrete joint effusion is seen. Vascular calcification is noted. Patellofemoral joint appears within normal limits. Impression: 1. Joint space narrowing as described above. 2. Vascular calcification. 3. Nothing acute is appreciated. Diagnostic code #3 This report was dictated in MDT
[2020-02-05] MEDS ORDERED: Lidocaine HCl/PF 10 MG/ML SDV INJECT ONE (22:05)
[2020-02-05 22:23] LABS: BLOOD UREA NITROGEN,BUN 61 mg/dL (7.0-18.0); CARBON DIOXIDE,CO2 31.2 mmol/L (21.0-32.0); CHLORIDE,CL 102 mmol/L (98-107); GLUCOSE RANDOM 136 mg/dL (74-106); POTASSIUM,K 4.4 mmol/L (3.5-5.1); SODIUM,NA 141 mmol/L (136-148)
[2020-02-05] MEDS: Bacitracin Oint 1 GM U/D Packet TOP ONE ×2 (23:05→23:49)
== END 2020-02-05 23:40 | disposition home or self-care (01) ==
LOC: MW.ED 21:11
DX: S81.012A Laceration without foreign body, left knee, initial encounter (principal); E86.0 Dehydration; R79.89 Other specified abnormal findings of blood chemistry; I11.0 Hypertensive heart disease with heart failure; I50.9 Heart failure, unspecified; I48.91 Unspecified atrial fibrillation; I25.2 Old myocardial infarction; J45.909 Unspecified asthma, uncomplicated; Z23 Encounter for immunization; Z88.8 Allergy status to other drugs, medicaments and biological substances; Z79.01 Long term (current) use of anticoagulants; Z79.899 Other long term (current) drug therapy; Z20.828 Contact with and (suspected) exposure to other viral communicable diseases; W01.0XXA Fall on same level from slipping, tripping and stumbling without subsequent striking against object, initial encounter
CPT/HCPCS: 12004; 36415; 73562; 80053; 84484; 85025; 85610; 90471; 90715; 93005; 99283; J2001; U0002

== ENCOUNTER 2020-08-10 04:09 | Observation (INO) | payer MEDICARE, OTHER ==
[2020-08-10] MEDS ORDERED: Sodium Chloride 0.9% 10 ML Syringe FLUSH PRN (04:29)
--- NOTE | 2020-08-10 04:31 | EDM.PDOC ---
ED HPI GENERAL MEDICAL PROBLEM - General Chief Complaint: Respiratory Problem Stated Complaint: SOB Time Seen by Provider: 08/10/20 04:27 - History of Present Illness INITIAL COMMENTS - FREE TEXT/NARRATIVE: HISTORY AND PHYSICAL: History of present illness: This is a 60-year-old gentleman with a history significant for bronchopulmonary aspergillosis, pulmonary hypertension, atrial fibrillation, CHF, chronic kidney disease who is status post left nephrectomy, obstructive sleep apnea and utilizes home O2 only at night, who presents ER today secondary to progressive shortness of breath over the last several days. Patient reports that he utilizes oxygen only at night however over the last several days he has noticed that during the day when he has no oxygen on board his oxygen level drops to the low to mid 80s. Patient reports that yesterday when he woke up he checked his oxygen level and it was in the mid to upper 70s prior to putting his oxygen back on board. Patient denies any recent fevers, shakes, chills, nausea, vomiting, diarrhea, dysuria, frequency, urgency, chest pain, abdominal pain. Patient reports no recent cough. Patient reports he just received his second coronavirus vaccination within the last 1 to 2 days. Review of systems: As per history of present illness and below otherwise all systems reviewed and negative. Past medical history: As per history of present illness and as reviewed below otherwise noncontributory. Surgical history: As per history of present illness and as reviewed below otherwise noncontributory. Social history: No reported history of drug or alcohol abuse. Family history: As per history of present illness and as reviewed below otherwise noncontributory. Physical exam: This patient was seen and evaluated during the 2019 SARS-CoV-2 novel coronavirus pandemic period. Community viral transmission is ongoing at time of this encounter and the emergency department is operating under pandemic response procedures. Constitutional: Patient is oriented to person, place, and time. Appears well- developed and well-nourished. No distress. HEENT: Moist mucous membranes Head: Normocephalic and atraumatic Eyes: Right eye exhibits no discharge. Left eye exhibits no discharge. No scleral icterus Neck: Normal range of motion. No tracheal deviation present. Cardiovascular: Normal rate and regular rhythm. Pulmonary: Effort normal, no respiratory distress. Lungs are clear without any wheezing rales or rhonchi. Patient appears to be tachypneic but does not appear to be in any acute respiratory distress. Abdominal: No distention Musculoskeletal: Normal range of motion. Trace bipedal edema Neurologic: Alert and oriented to person, place and time. Skin: Pony, warm and dry. Psychiatric: Normal mood and affect. Behavior is normal. Judgment and thought content normal. Nursing note and vital signs have been reviewed Diagnostics: [] Therapeutics: [] Assessment and plan: This is a 60-year-old gentleman who has multiple medical issues who presents ER today with progressive shortness of breath over the last several days and identified hypoxia on room air. Patient reports normally his oxygen levels in the low to mid 90s on room air when he is awake. He reports that he only uses oxygen for sleep issues. Patient reports that over the last couple days his oxygen levels been dropping in the 70s and 80s range. Patient came to the ER today secondary to increased shortness of breath. Patient denies any recent fevers or infectious issues at this time. Patient reports no chest pain or other cardiac issues. Patient reports that he took an extra dose of his diuretic in hopes of improvement in his oxygenation if diuresed. Patient reports no improvement. Definitive disposition and diagnosis as appropriate pending reevaluation and review of above. Bilateral Shoulder Pain Score (Numeric/FACES): 7 - Related Data Allergies Allergy/AdvReac Type Severity Reaction Status Date / Time itraconazole [From Sporanox] Allergy Unknown Confusion Verified 08/10/20 08:10 levofloxacin [From Levaquin] Allergy Unknown Other Verified 08/10/20 08:10 Home Meds: Home Meds Apixaban [Eliquis] 5 mg PO BID tablet 07/21/18 [Rx] Metoprolol Tartrate [Lopressor] 50 mg PO BID tablet 07/21/18 [Rx] Gabapentin [Neurontin] 800 mg PO QID 08/05/18 [History] predniSONE 20 mg PO QAM 10/09/18 [History] Albuterol [Proventil Neb Soln] 1 ampule NEB Q4HRRT 08/10/20 [History] Calcium Carbonate/Vitamin D3 [Oyster Shell Calcium-Vit D Tab] 1 each PO DAILY 08/10/20 [History] Fluticasone/Vilanterol [Breo Ellipta 200-25 MCG Inhalation Kit] 1 puff DAILY 08/10/20 [History] Furosemide [Lasix] 40 mg PO DAILY 08/10/20 [History] HYDROmorphone [Dilaudid] 4 mg PO Q4H PRN 08/10/20 [History] Lansoprazole [Prevacid] 30 mg PO DAILY 08/10/20 [History] Testosterone 2 applic TD DAILY 08/10/20 [History] Past Medical History HEENT History: Reports: Cataract Other HEENT History: dental fillings due to caries; recent tooth fracture Cardiovascular History: Reports: Afib, Cardiomyopathy, Heart Failure, Hypertension, [place] Other Cardiovascular History: Heart attack April 2010 Respiratory History: Reports: Asthma, Bronchitis, Recurrent, PE, Pneumonia, Recurrent, Other (See Below) Other Respiratory History: Chronic pulmonary aspergillosis, 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 No explantation--they apparently just treated him with IV abx for months. - Past Surgical History Head Surgeries/Procedures: Reports: None HEENT Surgical History: Reports: Cataract Surgery Cardiovascular Surgical History: Reports: None Respiratory Surgical History: Reports: Lung Resection Other Respiratory Surgeries/Procedures: intubated last Feb 2018 and transfered to [facility] Surgical History: Reports: Colonoscopy Male Surgical History: Reports: None Endocrine Surgical History: Reports: None Neurological Surgical History: Reports: None Musculoskeletal Surgical History: Reports: Amputation, Shoulder Surgery, Other (See Below) Other Musculoskeletal Surgeries/Procedures:: L shoulder and left hip surgery. 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 with sx february 2020 Oncologic Surgical History: Reports: None Dermatological Surgical History: Reports: None Social & Family History - Family History Family Medical History: No Pertinent Family History - Caffeine Use Caffeine Use: Reports: Coffee - Living Situation & Occupation Living situation: Reports: Single, with Family (sons) Occupation: Disabled ED ROS GENERAL - Review of Systems Review Of Systems: See Below ED EXAM, GENERAL - Physical Exam Exam: See Below Course - Vital Signs Last Recorded V/S: Last Vital Signs Temp 98.1 F 08/10/20 15:42 Pulse 87 08/10/20 15:42 Resp 18 08/10/20 17:26 BP 153/97 H 08/10/20 17:26 Pulse Ox 98 08/10/20 17:26 - Orders/Labs/Meds Orders: Active Orders 24 hr Category Date Time Status CULTURE BLOOD [BC] Stat Lab 08/10/20 06:08 Received CULTURE BLOOD [BC] Stat Lab 08/10/20 06:19 Received Sodium Chloride 0.9% [Saline Flush] Med 08/10/20 04:29 Active 10 ml FLUSH ASDIRECTED PRN Sodium Chloride 0.9% [Saline Flush] Med 08/10/20 04:29 Active 2.5 ml FLUSH ASDIRECTED PRN Blood Culture x2 Reflex Set [OM.PC] Stat Oth 08/10/20 05:56 Ordered Saline Lock Insert [OM.PC] Stat Oth 08/10/20 04:29 Ordered Medication Orders Acetaminophen (Acetaminophen 325 Mg Tab) 650 mg PO Q6H PRN PRN Reason: Pain Albuterol/Ipratropium (Albuterol/Ipratropium 3.0-0.5 Mg/3 Ml Neb Soln) 3 ml NEB Q4HRRT [facility] Last Admin: 08/10/20 17:25 Dose: Not Given Documented by: Admin: 08/10/20 14:14 Dose: Not Given Documented by: Admin: 08/10/20 10:12 Dose: 3 ml Documented by: ANGELLA Apixaban (Apixaban 5 Mg Tab) 5 mg PO BID [facility] Last Admin: 08/10/20 10:20 Dose: 5 mg Documented by: WYATT Calcium Carbonate (Calcium Carbonate/Vitamin D3 1500 Mg-400 Units Tab) 1 tab PO DAILY [facility] Furosemide (Furosemide 40 Mg Tab) 40 mg PO DAILY [facility] Gabapentin (Gabapentin 800 Mg Tab) 400 mg PO QID [facility] Last Admin: 08/10/20 17:59 Dose: 400 mg Documented by: Admin: 08/10/20 12:22 Dose: 400 mg Documented by: WYATT Hydromorphone HCl (Hydromorphone 2 Mg Tab) 4 mg PO Q4H PRN PRN Reason: Pain Last Admin: 08/10/20 15:39 Dose: 4 mg Documented by: Admin: 08/10/20 10:28 Dose: 4 mg Documented by: WYATT Pantoprazole Sodium 40 mg/ (Sodium Chloride) 10 mls @ 300 mls/hr IV DAILY [facility] Last Admin: 08/10/20 10:26 Dose: 300 mls/hr Documented by: WYATT Piperacillin Sod/Tazobactam (Sod 3.375 gm/ Sodium Chloride) 50 mls @ 100 mls/hr IV Q6H [facility] Last Admin: 08/10/20 18:00 Dose: 100 mls/hr Documented by: Infusion: 08/10/20 12:52 Dose: 100 mls/hr Documented by: Admin: 08/10/20 12:22 Dose: 100 mls/hr Documented by: WYATT Lactated Ringer's (Ringers, Lactated) 1,000 mls @ 125 mls/hr IV ONETIME ONE Stop: 08/10/20 21:09 Last Admin: 08/10/20 13:55 Dose: 125 mls/hr Documented by: WYATT Methylprednisolone Sodium Succinate (Methylprednisolone Sodium Succinate 40 Mg/1 Ml Sdv) 40 mg IVPUSH Q12H [facility] Last Admin: 08/10/20 16:57 Dose: 40 mg Documented by: WYATT Metoprolol Tartrate (Metoprolol Tartrate 50 Mg Tab) 50 mg PO BID [facility] Last Admin: 08/10/20 10:21 Dose: 50 mg Documented by: WYATT Ondansetron HCl (Ondansetron 4 Mg/2 Ml Sdv) 4 mg IVPUSH Q4H PRN PRN Reason: Nausea/Vomiting Sodium Chloride (Sodium Chloride 0.9% 10 Ml Syringe) 10 ml FLUSH ASDIRECTED PRN PRN Reason: Keep Vein Open Last Admin: 08/10/20 05:03 Dose: 10 ml Documented by: [id number] Sodium Chloride (Sodium Chloride 0.9% 2.5 Ml Syringe) 2.5 ml FLUSH ASDIRECTED PRN PRN Reason: Keep Vein Open Last Admin: 08/10/20 05:03 Dose: 2.5 ml Documented by: [id number] Labs: Laboratory Tests 08/10/20 08/10/20 08/10/20 Range/Units 04:42 04:42 04:42 WBC 7.83 (4.0-11.0) K/uL RBC 4.52 (4.50-5.90) M/uL Hgb 10.7 L (13.0-17.0) g/dL Hct 38.6 (38.0-50.0) % MCV 85.4 (80.0-98.0) fL MCH 23.7 L (27.0-32.0) pg MCHC 27.7 L (31.0-37.0) g/dL RDW Std Deviation 56.8 (28.0-62.0) fl RDW Coeff of Tre 19 H (11.0-15.0) % Plt Count 184 (150-400) K/uL MPV 9.50 (7.40-12.00) fL Neut % (Auto) 78.8 (48.0-80.0) % Lymph % (Auto) 11.0 L (16.0-40.0) % [place] % (Auto) 8.7 (0.0-15.0) % Eos % (Auto) 1.4 (0.0-7.0) % Baso % (Auto) 0.1 (0.0-1.5) % Neut # (Auto) 6.2 H (1.4-5.7) K/uL Lymph # (Auto) 0.9 (0.6-2.4) K/uL [place] # (Auto) 0.7 (0.0-0.8) K/uL Eos # (Auto) 0.1 (0.0-0.7) K/uL Baso # (Auto) 0.0 (0.0-0.1) K/uL Nucleated RBC % 0.0 /100WBC Nucleated RBCs # 0 K/uL Sodium 142 (136-148) mmol/L Potassium 4.0 (3.5-5.1) mmol/L Chloride 102 (98-107) mmol/L Carbon Dioxide 34.1 H (21.0-32.0) mmol/L BUN 54 H (7.0-18.0) mg/dL Creatinine 1.6 H (0.8-1.3) mg/dL Est Cr Clr Drug Dosing 42.71 mL/min Estimated GFR (MDRD) 44.3 ml/min Glucose 122 H (74-106) mg/dL Calcium 9.2 (8.5-10.1) mg/dL Total Bilirubin 0.4 (0.2-1.0) mg/dL AST 23 (15-37) IU/L ALT 27 (14-63) IU/L Alkaline Phosphatase 46 (46-116) U/L Troponin I < 0.050 (0.000-0.056) ng/mL B-Natriuretic Peptide 67 (<100) PG/ML Total Protein 7.3 (6.4-8.2) g/dL Albumin 3.2 L (3.4-5.0) g/dL Globulin 4.1 H (2.6-4.0) g/dL Albumin/Globulin Ratio 0.8 L (0.9-1.6) Urine Color Urine Appearance Urine pH (5.0-8.0) Ur Specific [place] (1.001-1.035) Urine Protein (NEGATIVE) mg/dL Urine Glucose (UA) (NEGATIVE) mg/dL Urine Ketones (NEGATIVE) mg/dL Urine Occult Blood (NEGATIVE) Urine Nitrite (NEGATIVE) Urine Bilirubin (NEGATIVE) Urine Urobilinogen (<2.0) EU/dL Ur Leukocyte Esterase (NEGATIVE) Influenza Type A RNA (NEGATIVE) Influenza Type B RNA (NEGATIVE) SARS-CoV-2 RNA ([place]) (NEGATIVE) 08/10/20 08/10/20 Range/Units 05:46 05:57 WBC (4.0-11.0) K/uL RBC (4.50-5.90) M/uL Hgb (13.0-17.0) g/dL Hct (38.0-50.0) % MCV (80.0-98.0) fL MCH (27.0-32.0) pg MCHC (31.0-37.0) g/dL RDW Std Deviation (28.0-62.0) fl RDW Coeff of Tre (11.0-15.0) % Plt Count (150-400) K/uL MPV (7.40-12.00) fL Neut % (Auto) (48.0-80.0) % Lymph % (Auto) (16.0-40.0) % [place] % (Auto) (0.0-15.0) % Eos % (Auto) (0.0-7.0) % Baso % (Auto) (0.0-1.5) % Neut # (Auto) (1.4-5.7) K/uL Lymph # (Auto) (0.6-2.4) K/uL [place] # (Auto) (0.0-0.8) K/uL Eos # (Auto) (0.0-0.7) K/uL Baso # (Auto) (0.0-0.1) K/uL Nucleated RBC % /100WBC Nucleated RBCs # K/uL Sodium (136-148) mmol/L Potassium (3.5-5.1) mmol/L Chloride (98-107) mmol/L Carbon Dioxide (21.0-32.0) mmol/L BUN (7.0-18.0) mg/dL Creatinine (0.8-1.3) mg/dL Est Cr Clr Drug Dosing mL/min Estimated GFR (MDRD) ml/min Glucose (74-106) mg/dL Calcium (8.5-10.1) mg/dL Total Bilirubin (0.2-1.0) mg/dL AST (15-37) IU/L ALT (14-63) IU/L Alkaline Phosphatase (46-116) U/L Troponin I (0.000-0.056) ng/mL B-Natriuretic Peptide (<100) PG/ML Total Protein (6.4-8.2) g/dL Albumin (3.4-5.0) g/dL Globulin (2.6-4.0) g/dL Albumin/Globulin Ratio (0.9-1.6) Urine Color YELLOW Urine Appearance CLEAR Urine pH 6.0 (5.0-8.0) Ur Specific [place] 1.015 (1.001-1.035) Urine Protein NEGATIVE (NEGATIVE) mg/dL Urine Glucose (UA) NEGATIVE (NEGATIVE) mg/dL Urine Ketones NEGATIVE (NEGATIVE) mg/dL Urine Occult Blood NEGATIVE (NEGATIVE) Urine Nitrite NEGATIVE (NEGATIVE) Urine Bilirubin NEGATIVE (NEGATIVE) Urine Urobilinogen 0.2 (<2.0) EU/dL Ur Leukocyte Esterase NEGATIVE (NEGATIVE) Influenza Type A RNA NEGATIVE (NEGATIVE) Influenza Type B RNA NEGATIVE (NEGATIVE) SARS-CoV-2 RNA ([place]) NEGATIVE (NEGATIVE) Meds: Medications Generic Name Dose Route Start Last Admin Trade Name Freq PRN Reason Stop Dose Admin Acetaminophen 650 mg 08/10/20 07:42 Acetaminophen 325 Mg Tab PO Q6H PRN Pain Albuterol/Ipratropium 3 ml 08/10/20 10:00 08/10/20 17:25 Albuterol/Ipratropium 3.0-0.5 Mg/3 Ml Neb Soln NEB Not Given Q4HRRT [facility] Apixaban 5 mg 08/10/20 10:00 08/10/20 10:20 Apixaban 5 Mg Tab PO 5 mg BID [facility]O Administration Calcium Carbonate 1 tab 08/11/20 09:00 Calcium Carbonate/Vitamin D3 1500 Mg-400 Units Tab PO DAILY [facility] Furosemide 40 mg 08/11/20 09:00 Furosemide 40 Mg Tab PO DAILY [facility] Gabapentin 400 mg 08/10/20 12:00 08/10/20 17:59 Gabapentin 800 Mg Tab PO 400 mg QID [facility] Administration Hydromorphone HCl 4 mg 08/10/20 10:00 08/10/20 15:39 Hydromorphone 2 Mg Tab PO 4 mg Q4H PRN Administration Pain Pantoprazole Sodium 40 mg/ 10 mls @ 300 mls/hr 08/10/20 09:00 08/10/20 10:26 Sodium Chloride IV 300 mls/hr DAILY [facility] Administration Piperacillin Sod/Tazobactam 50 mls @ 100 mls/hr 08/10/20 12:00 08/10/20 18:00 Sod 3.375 gm/ Sodium Chloride IV 100 mls/hr Q6H [facility] Administration Lactated Ringer's 1,000 mls @ 125 mls/hr 08/10/20 13:10 08/10/20 13:55 Ringers, Lactated IV 03/28/21 21:09 125 mls/hr ONETIME ONE Administration Methylprednisolone Sodium Succinate 40 mg 08/10/20 17:00 08/10/20 16:57 Methylprednisolone Sodium Succinate 40 Mg/1 Ml Sdv IVPUSH 40 mg Q12H [facility] Administration Metoprolol Tartrate 50 mg 08/10/20 10:00 08/10/20 10:21 Metoprolol Tartrate 50 Mg Tab PO 50 mg BID [facility] Administration Ondansetron HCl 4 mg 08/10/20 07:42 Ondansetron 4 Mg/2 Ml Sdv IVPUSH Q4H PRN Nausea/Vomiting Sodium Chloride 10 ml 08/10/20 04:29 08/10/20 05:03 Sodium Chloride 0.9% 10 Ml Syringe FLUSH 10 ml ASDIRECTED PRN Administration Keep Vein Open Sodium Chloride 2.5 ml 08/10/20 04:29 08/10/20 05:03 Sodium Chloride 0.9% 2.5 Ml Syringe FLUSH 2.5 ml ASDIRECTED PRN Administration Keep Vein Open Discontinued Medications Generic Name Dose Route Start Last Admin Trade Name Freq PRN Reason Stop Dose Admin Albuterol/Ipratropium 3 ml 08/10/20 04:53 08/10/20 05:03 Albuterol/Ipratropium 3.0-0.5 Mg/3 Ml Neb Soln NEB 08/10/20 04:54 3 ml ONETIME ONE Administration Furosemide 40 mg 08/10/20 04:53 08/10/20 05:00 Furosemide 40 Mg/4 Ml Vial IVPUSH 08/10/20 04:54 40 mg NOW ONE Administration Piperacillin Sod/Tazobactam 50 mls @ 100 mls/hr 08/10/20 06:03 08/10/20 06:35 Sod 3.375 gm/ Sodium Chloride IV 08/10/20 06:32 100 mls/hr ONETIME ONE Administration Piperacillin Sod/Tazobactam 50 mls @ 100 mls/hr 08/10/20 07:45 08/10/20 07:49 Sod 3.375 gm/ Sodium Chloride IV Not Given Q6H DANIELITO Lactated Ringer's 500 mls @ 500 mls/hr 08/10/20 16:45 08/10/20 16:58 Ringers, Lactated IV 08/10/20 17:44 500 mls/hr .BOLUS ONE Administration Methylprednisolone Sodium Succinate 125 mg 08/10/20 04:53 08/10/20 05:03 Methylprednisolone Sodium Succinate 125 Mg/2 Ml Sdv IVPUSH 08/10/20 04:54 125 mg ONETIME ONE Administration Methylprednisolone Sodium Succinate 40 mg 08/10/20 13:15 08/10/20 13:57 Methylprednisolone Sodium Succinate 40 Mg/1 Ml Sdv IVPUSH Not Given Q12H [facility] Departure - Departure Time of Disposition: 05:00 Disposition: Refer to Observation Condition: Good Clinical Impression: Hypoxia, COPD exacerbation - Discharge Information - My Orders Last 24 Hours: My Active Orders 08/10/20 04:29 Sodium Chloride 0.9% [Saline Flush] 10 ml FLUSH ASDIRECTED PRN Sodium Chloride 0.9% [Saline Flush] 2.5 ml FLUSH ASDIRECTED PRN Saline Lock Insert [OM.PC] Stat 08/10/20 05:56 Blood Culture x2 Reflex Set [OM.PC] Stat 08/10/20 06:08 CULTURE BLOOD [BC] Stat 08/10/20 06:19 CULTURE BLOOD [BC] Stat - Assessment/Plan Last 24 Hours: My Active Orders 08/10/20 04:29 Sodium Chloride 0.9% [Saline Flush] 10 ml FLUSH ASDIRECTED PRN Sodium Chloride 0.9% [Saline Flush] 2.5 ml FLUSH ASDIRECTED PRN Saline Lock Insert [OM.PC] Stat 08/10/20 05:56 Blood Culture x2 Reflex Set [OM.PC] Stat 08/10/20 06:08 CULTURE BLOOD [BC] Stat 08/10/20 06:19 CULTURE BLOOD [BC] Stat
[2020-08-10] MEDS ORDERED: Albuterol/Ipratropium 3.0-0.5 MG/3 ML Neb Soln NEB ONE (04:53)
[2020-08-10] MEDS ORDERED: methylPREDNISolone Sodium Succinate 125 MG/2 ML SDV IVPUSH ONE (04:53)
[2020-08-10] MEDS ORDERED: Furosemide 40 MG/4 ML VIAL IVPUSH ONE (04:53)
[2020-08-10] MEDS: Sodium Chloride 0.9% 2.5 ML Syringe FLUSH PRN (05:03)
[2020-08-10 05:12] LABS: BLOOD UREA NITROGEN,BUN 54 mg/dL (7.0-18.0); CARBON DIOXIDE,CO2 34.1 mmol/L (21.0-32.0); CHLORIDE,CL 102 mmol/L (98-107); GLUCOSE RANDOM 122 mg/dL (74-106); SODIUM,NA 142 mmol/L (136-148)
--- NOTE | 2020-08-10 05:17 | CR ---
INDICATION: Shortness of breath TECHNIQUE: Chest radiograph 1 view COMPARISON: None FINDINGS: Moderate degradation of image quality noted due to body habitus. Mediastinum: The mediastinum is normal in appearance. Mild cardiomegaly is noted. Lung: A small focus of consolidation is seen in the lateral left lung base. There is a nodular density in the left upper lung zone measuring 11 mm. No sign of pleural effusion seen. No pneumothorax is identified. Bone and Soft tissue: Left reverse shoulder arthroplasty is noted. Resection of the right humeral head is seen. IMPRESSIONS: 1. A small focus of consolidation is seen in the lateral left lung base. These findings can be seen with atelectasis and/or pneumonia. 2. There is a nodular density in the left upper lung zone measuring 11 mm. Comparison with any prior outside imaging is recommended. If these cannot be obtained, follow up evaluation with chest CT is recommended. 3. Mild cardiomegaly is noted. Dictated by Omi Alvarez MD @ 08/10/2020 5:16:26 AM Dictated by: Omi Alvarez MD @ 08/10/2020 05:16:31 (Electronically Signed)
[2020-08-10] MEDS ORDERED: Piperacillin/Tazobactam 3.375 GM in Sodium Chloride 0.9% 50 ML IV ONE (06:03)
[2020-08-10 06:47] LABS: CORONAVIRUS COVID-19 NAA NEGATIVE (NEGATIVE); INFLUENZA A NAA NEGATIVE (NEGATIVE); INFLUENZA B NAA NEGATIVE (NEGATIVE)
[2020-08-10] MEDS ORDERED: Acetaminophen 325 MG Tab PO PRN (07:42)
[2020-08-10] MEDS ORDERED: Ondansetron 4 MG/2 ML SDV IVPUSH PRN (07:42)
[2020-08-10] MEDS ORDERED: Piperacillin/Tazobactam 3.375 GM in Sodium Chloride 0.9% 50 ML IV SCH (07:45)
--- NOTE | 2020-08-10 09:04 | PCM.HP.2 ---
H&P History of Present Illness - General Date of Service: 08/10/20 Admit Problem/Dx: Admission Diagnosis/Problem Admission Diagnosis/Problem Hypoxia - History of Present Illness Initial Comments - Free Text/Narative: This is a 60-year-old gentleman with a history significant for bronchopulmonary aspergillosis, pulmonary hypertension, atrial fibrillation, CHF, chronic kidney disease, status post left nephrectomy, obstructive sleep apnea and utilizes home O2 only at night for "possible sleep apnea", who presents ER today secondary to progressive shortness of breath over the last several days, Patients sttaes his oxygen requirement has increased from just overnight to day time as well, without it his oxygen sats are in 80s, Patient reports that yesterday when he woke up he checked his oxygen level and it was in the mid to upper 70s prior to putting his oxygen back on board. Patient denies any recent fevers, shakes, chills, nausea, vomiting, diarrhea, dysuria, frequency, urgency, chest pain, abdominal pain. Patient reports no recent cough. Patient reports he just received his second coronavirus vaccination within the last 1 to 2 days. Patient states he was supposed to see apulmonoigust but is the process to get a referall. Patient also was supposed to get his shoulder fixed but that got delayed due to the pandemic restrictions as we.. He has gotten a recent echo and states his EF has improved from before. He also states he has gained about 15 pounds over last few weeks, and has some leg swelling which comes and goes but is worse today, he took some extra dose of Lasix but didnt help his symptoms.. Patient CXR showed possible left lung infiltrate, his troponin was negative, lactate was elevated, patient was admitted for further management of hypoxic respiratory failure. Onset of Symptoms: Reports: Gradual - Related Data Allergies/Adverse Reactions: Allergies Allergy/AdvReac Type Severity Reaction Status Date / Time itraconazole [From Sporanox] Allergy Unknown Confusion Verified 08/10/20 08:10 levofloxacin [From Levaquin] Allergy Unknown Other Verified 08/10/20 08:10 Home Medications: Home Meds Apixaban [Eliquis] 5 mg PO BID tablet 07/21/18 [Rx] Metoprolol Tartrate [Lopressor] 50 mg PO BID tablet 07/21/18 [Rx] Gabapentin [Neurontin] 800 mg PO QID 08/05/18 [History] predniSONE 20 mg PO QAM 10/09/18 [History] Albuterol [Proventil Neb Soln] 1 ampule NEB Q4HRRT 08/10/20 [History] Calcium Carbonate/Vitamin D3 [Oyster Shell Calcium-Vit D Tab] 1 each PO DAILY 08/10/20 [History] Fluticasone/Vilanterol [Breo Ellipta 200-25 MCG Inhalation Kit] 1 puff DAILY 08/10/20 [History] Furosemide [Lasix] 40 mg PO DAILY 08/10/20 [History] HYDROmorphone [Dilaudid] 4 mg PO Q4H PRN 08/10/20 [History] Lansoprazole [Prevacid] 30 mg PO DAILY 08/10/20 [History] Testosterone 2 applic TD DAILY 08/10/20 [History] Past Medical History HEENT History: Reports: Cataract Other HEENT History: dental fillings due to caries; recent tooth fracture Cardiovascular History: Reports: Afib, Cardiomyopathy, Heart Failure, Hypertension, NM Other Cardiovascular History: Heart attack April 2010 Respiratory History: Reports: Asthma, Bronchitis, Recurrent, PE, Pneumonia, Recurrent, Other (See Below) Other Respiratory History: Chronic pulmonary aspergillosis, 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 bilateral achilles tendon ruptures and repair., hip replacement, removal of left humerous, reverse right shoulder replacement Neurological History: Reports: Neuropathy, Peripheral, TIA Other Neuro History: TIA 1999 Psychiatric History: Reports: Anxiety, Depression Endocrine/Metabolic History: Reports: Osteoporosis Hematologic History: Reports: Anticoagulation Therapy Immunologic History: Reports: Immunosuppression Oncologic (Cancer) History: Reports: None Other Oncologic History: melanoma of the right eye Dermatologic History: Reports: Cellulitis, Melanoma, Other (See Below) Other Dermatologic History: melanoma in the eye, vp genetic steroid use - Infectious Disease History Infectious Disease History: Reports: Chicken Pox, Measles Other Infectious Disease History: 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 No explantation --they apparently just treated him with IV abx for months. - Past Surgical History Head Surgeries/Procedures: Reports: None HEENT Surgical History: Reports: Cataract Surgery Cardiovascular Surgical History: Reports: None Respiratory Surgical History: Reports: Lung Resection Other Respiratory Surgeries/Procedures: intubated last Feb 2018 and transfered to [place] [facility] Surgical History: Reports: Colonoscopy Other GI Surgeries/Procedures: colostomy and reversal 20yrs ago Male Surgical History: Reports: None Endocrine Surgical History: Reports: None Neurological Surgical History: Reports: None Musculoskeletal Surgical History: Reports: Amputation, Shoulder Surgery, Other (See Below) Other Musculoskeletal Surgeries/Procedures:: L shoulder and left hip surgery. 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 with sx february 2020 Oncologic Surgical History: Reports: None Dermatological Surgical History: Reports: None Social & Family History - Family History Family Medical History: No Pertinent Family History - Tobacco Use Tobacco Use Status *Q: Never Tobacco User Second Hand Smoke Exposure: No - Caffeine Use Caffeine Use: Reports: Coffee - Recreational Drug Use Recreational Drug Use: No - Living Situation & Occupation Living situation: Reports: Single, with Family (sons) Occupation: Disabled H&P Review of Systems - Review of Systems: Review Of Systems: See Below General: Reports: Weakness, Fatigue. Denies: Fever, Chills Pulmonary: Reports: Shortness of Breath, Cough, Sputum Cardiovascular: Reports: Dyspnea on Exertion. Denies: Chest Pain, Palpitations Gastrointestinal: Denies: Abdominal Pain, Anorexia, Black Stool Genitourinary: Denies: Dysuria, Burning Musculoskeletal: Reports: Shoulder Pain, Arm Pain. Denies: Neck Pain, Back Pain, Hand Pain Skin: Reports: Dryness, Rash. Denies: Cyanosis, Jaundice, Mottled, Pallor Psychiatric: Denies: Depression, Mood Lability, Anxiety Exam - Exam Exam: See Below - Vital Signs Vital Signs: Last Vital Signs Temp 36.5 C 08/10/20 08:05 Pulse 93 08/10/20 08:05 Resp 20 08/10/20 08:05 BP 148/79 H 08/10/20 08:05 Pulse Ox 97 08/10/20 08:05 Weight: 61.326 kg - Exam Quality Assessment: Supplemental Oxygen General: Alert, Oriented, Cooperative, Mild Distress Neck: Supple, Trachea Midline Lungs: Clear to Auscultation, Normal Respiratory Effort. No: Crackles, Rales Cardiovascular: Regular Rate, Regular Rhythm, Normal S1, Normal S2 GI/Abdominal Exam: Normal Bowel Sounds, Soft, Non-Tender, No Organomegaly Extremities: Pedal Edema - Patient Data Lab Results Last 24 hrs: Laboratory Results - last 24 hr 08/10/20 08/10/20 08/10/20 Range/Units 04:42 04:42 04:42 WBC 7.83 (4.0-11.0) K/uL RBC 4.52 (4.50-5.90) M/uL Hgb 10.7 L (13.0-17.0) g/dL Hct 38.6 (38.0-50.0) % MCV 85.4 (80.0-98.0) fL MCH 23.7 L (27.0-32.0) pg MCHC 27.7 L (31.0-37.0) g/dL RDW Std Deviation 56.8 (28.0-62.0) fl RDW Coeff of Tre 19 H (11.0-15.0) % Plt Count 184 (150-400) K/uL MPV 9.50 (7.40-12.00) fL Neut % (Auto) 78.8 (48.0-80.0) % Lymph % (Auto) 11.0 L (16.0-40.0) % [place] % (Auto) 8.7 (0.0-15.0) % Eos % (Auto) 1.4 (0.0-7.0) % Baso % (Auto) 0.1 (0.0-1.5) % Neut # (Auto) 6.2 H (1.4-5.7) K/uL Lymph # (Auto) 0.9 (0.6-2.4) K/uL [place] # (Auto) 0.7 (0.0-0.8) K/uL Eos # (Auto) 0.1 (0.0-0.7) K/uL Baso # (Auto) 0.0 (0.0-0.1) K/uL Nucleated RBC % 0.0 /100WBC Nucleated RBCs # 0 K/uL Lactate (0.20-2.00) mmol/L Sodium 142 (136-148) mmol/L Potassium 4.0 (3.5-5.1) mmol/L Chloride 102 (98-107) mmol/L Carbon Dioxide 34.1 H (21.0-32.0) mmol/L BUN 54 H (7.0-18.0) mg/dL Creatinine 1.6 H (0.8-1.3) mg/dL Est Cr Clr Drug Dosing 42.71 mL/min Estimated GFR (MDRD) 44.3 ml/min Glucose 122 H (74-106) mg/dL Calcium 9.2 (8.5-10.1) mg/dL Total Bilirubin 0.4 (0.2-1.0) mg/dL AST 23 (15-37) IU/L ALT 27 (14-63) IU/L Alkaline Phosphatase 46 (46-116) U/L Troponin I < 0.050 (0.000-0.056) ng/mL B-Natriuretic Peptide 67 (<100) PG/ML Total Protein 7.3 (6.4-8.2) g/dL Albumin 3.2 L (3.4-5.0) g/dL Globulin 4.1 H (2.6-4.0) g/dL Albumin/Globulin Ratio 0.8 L (0.9-1.6) Urine Color Urine Appearance Urine pH (5.0-8.0) Ur Specific [place] (1.001-1.035) Urine Protein (NEGATIVE) mg/dL Urine Glucose (UA) (NEGATIVE) mg/dL Urine Ketones (NEGATIVE) mg/dL Urine Occult Blood (NEGATIVE) Urine Nitrite (NEGATIVE) Urine Bilirubin (NEGATIVE) Urine Urobilinogen (<2.0) EU/dL Ur Leukocyte Esterase (NEGATIVE) Influenza Type A RNA (NEGATIVE) Influenza Type B RNA (NEGATIVE) SARS-CoV-2 RNA ([place]) (NEGATIVE) 08/10/20 08/10/20 08/10/20 Range/Units 05:46 05:57 06:19 WBC (4.0-11.0) K/uL RBC (4.50-5.90) M/uL Hgb (13.0-17.0) g/dL Hct (38.0-50.0) % MCV (80.0-98.0) fL MCH (27.0-32.0) pg MCHC (31.0-37.0) g/dL RDW Std Deviation (28.0-62.0) fl RDW Coeff of Tre (11.0-15.0) % Plt Count (150-400) K/uL MPV (7.40-12.00) fL Neut % (Auto) (48.0-80.0) % Lymph % (Auto) (16.0-40.0) % [place] % (Auto) (0.0-15.0) % Eos % (Auto) (0.0-7.0) % Baso % (Auto) (0.0-1.5) % Neut # (Auto) (1.4-5.7) K/uL Lymph # (Auto) (0.6-2.4) K/uL [place] # (Auto) (0.0-0.8) K/uL Eos # (Auto) (0.0-0.7) K/uL Baso # (Auto) (0.0-0.1) K/uL Nucleated RBC % /100WBC Nucleated RBCs # K/uL Lactate 3.6 H* (0.20-2.00) mmol/L Sodium (136-148) mmol/L Potassium (3.5-5.1) mmol/L Chloride (98-107) mmol/L Carbon Dioxide (21.0-32.0) mmol/L BUN (7.0-18.0) mg/dL Creatinine (0.8-1.3) mg/dL Est Cr Clr Drug Dosing mL/min Estimated GFR (MDRD) ml/min Glucose (74-106) mg/dL Calcium (8.5-10.1) mg/dL Total Bilirubin (0.2-1.0) mg/dL AST (15-37) IU/L ALT (14-63) IU/L Alkaline Phosphatase (46-116) U/L Troponin I (0.000-0.056) ng/mL B-Natriuretic Peptide (<100) PG/ML Total Protein (6.4-8.2) g/dL Albumin (3.4-5.0) g/dL Globulin (2.6-4.0) g/dL Albumin/Globulin Ratio (0.9-1.6) Urine Color YELLOW Urine Appearance CLEAR Urine pH 6.0 (5.0-8.0) Ur Specific [place] 1.015 (1.001-1.035) Urine Protein NEGATIVE (NEGATIVE) mg/dL Urine Glucose (UA) NEGATIVE (NEGATIVE) mg/dL Urine Ketones NEGATIVE (NEGATIVE) mg/dL Urine Occult Blood NEGATIVE (NEGATIVE) Urine Nitrite NEGATIVE (NEGATIVE) Urine Bilirubin NEGATIVE (NEGATIVE) Urine Urobilinogen 0.2 (<2.0) EU/dL Ur Leukocyte Esterase NEGATIVE (NEGATIVE) Influenza Type A RNA NEGATIVE (NEGATIVE) Influenza Type B RNA NEGATIVE (NEGATIVE) SARS-CoV-2 RNA ([place]) NEGATIVE (NEGATIVE) Result Diagrams: 08/10/20 04:42 08/10/20 04:42 Sepsis Event Note - Evaluation Sepsis Screening Result: No Definite Risk - Focused Exam Vital Signs: Vital Signs Temp Pulse Resp BP Pulse Ox 08/10/20 08:05 36.5 C 93 20 148/79 H 97 08/10/20 04:45 92 L 08/10/20 04:28 36.9 C 119 H 20 114/76 92 L - Problem List (1) LIVAN (acute kidney injury) SNOMED Code(s): 98572883, 50942867 ICD Code: N17.9 - ACUTE KIDNEY FAILURE, UNSPECIFIED Status: Acute Current Visit: Yes (2) Acute and chronic respiratory failure SNOMED Code(s): 04013757 ICD Code: J96.20 - ACUTE AND CHR RESP FAILURE, UNSP W HYPOXIA OR HYPERCAPNIA Status: Acute Current Visit: No Qualifiers: Respiratory failure complication: hypoxia Qualified Code(s): J96.21 - Acute and chronic respiratory failure with hypoxia (3) CHF (congestive heart failure) SNOMED Code(s): 32847366 ICD Code: I50.9 - HEART FAILURE, UNSPECIFIED Status: Acute Current Visit: No Qualifiers: Heart failure type: unspecified Heart failure chronicity: unspecified Qualified Code(s): I50.9 - Heart failure, unspecified (4) Lactic acid increased SNOMED Code(s): 05446686 ICD Code: E87.2 - ACIDOSIS Status: Acute Current Visit: Yes Problem List Initiated/Reviewed/Updated: Yes Orders Last 24hrs: Active Orders 24 hr Category Date Time Status Patient Status [ADT] Routine ADT 08/10/20 06:09 Active Antiembolic Devices [RC] PER UNIT ROUTINE Care 08/10/20 07:43 Active Cardiac Monitoring [RC] Q8H Care 08/10/20 07:42 Active Oxygen Therapy [RC] ASDIRECTED Care 08/10/20 07:42 Active RT Aerosol Therapy [RC] ASDIRECTED Care 08/10/20 07:44 Active Vital Signs [RC] Q4H Care 08/10/20 07:42 Active CULTURE BLOOD [BC] Stat Lab 08/10/20 06:08 Received CULTURE BLOOD [BC] Stat Lab 08/10/20 06:19 Received LACTATE WITH REFLEX [BG] Routine Lab 08/10/20 10:00 Ordered Acetaminophen [TylenoL] Med 08/10/20 07:42 Active 650 mg PO Q6H PRN Albuterol/Ipratropium [DuoNeb 3.0-0.5 MG/3 ML] Med 08/10/20 10:00 Active 3 ml NEB Q4HRRT Ondansetron [Zofran] Med 08/10/20 07:42 Active 4 mg IVPUSH Q4H PRN Pantoprazole [ProTONIX IV] 40 mg Med 08/10/20 09:00 Active Sodium Chloride 0.9% [Normal Saline] 10 ml IV DAILY Piperacillin/Tazobactam [Piperacil-Tazobact] 3.375 gm Med 08/10/20 12:00 Active Sodium Chloride 0.9% [Normal Saline] 50 ml IV Q6H Sodium Chloride 0.9% [Saline Flush] Med 08/10/20 04:29 Active 10 ml FLUSH ASDIRECTED PRN Sodium Chloride 0.9% [Saline Flush] Med 08/10/20 04:29 Active 2.5 ml FLUSH ASDIRECTED PRN Blood Culture x2 Reflex Set [OM.PC] Stat Oth 08/10/20 05:56 Ordered Saline Lock Insert [OM.PC] Stat Oth 08/10/20 04:29 Ordered Sequential Compression Device [OM.PC] Routine Oth 08/10/20 07:42 Ordered Medication Orders Acetaminophen (Acetaminophen 325 Mg Tab) 650 mg PO Q6H PRN PRN Reason: Pain Albuterol/Ipratropium (Albuterol/Ipratropium 3.0-0.5 Mg/3 Ml Neb Soln) 3 ml NEB Q4HRRT DANIELITO Pantoprazole Sodium 40 mg/ (Sodium Chloride) 10 mls @ 300 mls/hr IV DAILY DANIELITO Piperacillin Sod/Tazobactam (Sod 3.375 gm/ Sodium Chloride) 50 mls @ 100 mls/hr IV Q6H DANIELITO Ondansetron HCl (Ondansetron 4 Mg/2 Ml Sdv) 4 mg IVPUSH Q4H PRN PRN Reason: Nausea/Vomiting Sodium Chloride (Sodium Chloride 0.9% 10 Ml Syringe) 10 ml FLUSH ASDIRECTED PRN PRN Reason: Keep Vein Open Last Admin: 08/10/20 05:03 Dose: 10 ml Documented by: [id number] Sodium Chloride (Sodium Chloride 0.9% 2.5 Ml Syringe) 2.5 ml FLUSH ASDIRECTED PRN PRN Reason: Keep Vein Open Last Admin: 08/10/20 05:03 Dose: 2.5 ml Documented by: [id number] Assessment/Plan Comment:: 60 y/o M admitted for acute over chronic respiratory failure cont oxygenation to maintain pulse oxy >90% start IV antibiotics, Zosyn for now start IV steroids for underlying aspergillosis will consider possible CTA of chest once kidney function is better vs plain CT chest received IV lasix, although patient does have some pedel edema, his lungs are clear, he looks extreme,ly dehydrated with lactic acidosis Will gibe some gentle hydration FERNANDA wraps for b/l legs, elevate foot of bed, keep legs elevated monitor and replete electrolytes as needed
[2020-08-10] MEDS: Albuterol/Ipratropium 3.0-0.5 MG/3 ML Neb Soln NEB SCH ×4 (10:12→21:31)
[2020-08-10] MEDS: Apixaban 5 MG Tab PO SCH ×2 (10:20→20:38)
[2020-08-10] MEDS: Metoprolol Tartrate 50 MG Tab PO SCH ×2 (10:21→20:38)
[2020-08-10] MEDS: Pantoprazole 40 MG in Sodium Chloride 0.9% 10 ML IV SCH (10:26)
[2020-08-10] MEDS: HYDROmorphone 2 MG Tab PO PRN ×3 (10:28→20:44)
[2020-08-10] MEDS: Piperacillin/Tazobactam 3.375 GM in Sodium Chloride 0.9% 50 ML IV SCH ×2 (12:22→18:00)
[2020-08-10] MEDS: Gabapentin 800 MG Tab PO SCH ×2 (12:22→17:59)
[2020-08-10] MEDS ORDERED: Lactated Ringers 1,000 ML IV ONE (13:10)
[2020-08-10] MEDS ORDERED: methylPREDNISolone Sodium Succinate 40 MG/1 ML SDV IVPUSH SCH (13:15)
[2020-08-10] MEDS ORDERED: Lactated Ringers 500 ML IV ONE (16:45)
[2020-08-10] MEDS: methylPREDNISolone Sodium Succinate 40 MG/1 ML SDV IVPUSH SCH (16:57)
[2020-08-10] MEDS ORDERED: Carboxymethylcellulose Sodium 0.5% Ophth Soln 0.4 ML UD Box of 30 EYEBOTH PRN (21:53)
[2020-08-11] MEDS: Piperacillin/Tazobactam 3.375 GM in Sodium Chloride 0.9% 50 ML IV SCH ×5 (00:48→23:59)
[2020-08-11] MEDS: Gabapentin 800 MG Tab PO SCH ×5 (00:51→23:58)
[2020-08-11] MEDS: HYDROmorphone 2 MG Tab PO PRN ×5 (00:52→22:07)
[2020-08-11] MEDS: Albuterol/Ipratropium 3.0-0.5 MG/3 ML Neb Soln NEB SCH ×3 (01:39→11:41)
[2020-08-11] MEDS: methylPREDNISolone Sodium Succinate 40 MG/1 ML SDV IVPUSH SCH ×2 (05:17→17:20)
[2020-08-11 06:16] LABS: CARBON DIOXIDE,CO2 32.3 mmol/L (21.0-32.0); POTASSIUM,K 4.4 mmol/L (3.5-5.1)
[2020-08-11] MEDS: Pantoprazole 40 MG in Sodium Chloride 0.9% 10 ML IV SCH (08:55)
[2020-08-11] MEDS ORDERED: LANSOPRAZOLE 30 MG PO SCH (09:00)
[2020-08-11] MEDS: Metoprolol Tartrate 50 MG Tab PO SCH ×2 (09:41→21:07)
[2020-08-11] MEDS: Apixaban 5 MG Tab PO SCH ×2 (09:44→21:07)
[2020-08-11] MEDS: Furosemide 40 MG Tab PO SCH (09:44)
[2020-08-11] MEDS: Calcium Carbonate/Vitamin D3 1500 MG-400 Units Tab PO SCH (09:44)
[2020-08-11] MEDS ORDERED: Albuterol/Ipratropium 3.0-0.5 MG/3 ML Neb Soln NEB PRN (10:01)
--- NOTE | 2020-08-11 11:34 | PCM.PN ---
- General Info Date of Service: 08/11/20 Admission Dx/Problem (Free Text): Admission Diagnosis/Problem Admission Diagnosis/Problem Hypoxia Functional Status: Reports: Tolerating Diet, Ambulating, Urinating - Review of Systems General: Denies: Fever, Weakness Pulmonary: Reports: Shortness of Breath. Denies: Pleuritic Chest Pain, Cough, Sputum Cardiovascular: Reports: Dyspnea on Exertion. Denies: Palpitations, Orthopnea Gastrointestinal: Denies: Abdominal Pain, Constipation, Decreased Appetite Genitourinary: Denies: Dysuria, Frequency, Burning Musculoskeletal: Denies: Neck Pain, Shoulder Pain, Arm Pain Skin: Denies: Cyanosis, Jaundice, Mottled Neurological: Denies: Confusion, Dizziness, Headache - Patient Data Vitals - Most Recent: Last Vital Signs Temp 36.7 C 08/11/20 07:33 Pulse 77 08/11/20 09:41 Resp 17 08/11/20 07:33 BP 147/88 H 08/11/20 09:41 Pulse Ox 98 08/11/20 07:33 Weight - Most Recent: 61.326 kg I&O - Last 24 Hours: Intake & Output 08/10/20 08/11/20 08/11/20 22:59 06:59 14:59 Intake Total 1790 900 Output Total 1475 2035 Balance 315 -1135 Lab Results Last 24 Hours: Laboratory Results - last 24 hr 08/10/20 08/10/20 08/11/20 Range/Units 15:40 20:00 05:09 WBC 6.86 (4.0-11.0) K/uL RBC 4.12 L (4.50-5.90) M/uL Hgb 9.5 L (13.0-17.0) g/dL Hct 34.7 L (38.0-50.0) % MCV 84.2 (80.0-98.0) fL MCH 23.1 L (27.0-32.0) pg MCHC 27.4 L (31.0-37.0) g/dL RDW Std Deviation 55.6 (28.0-62.0) fl RDW Coeff of Tre 18 H (11.0-15.0) % Plt Count 181 (150-400) K/uL MPV 10.30 (7.40-12.00) fL Neut % (Auto) 74.3 (48.0-80.0) % Lymph % (Auto) 15.9 L (16.0-40.0) % [place] % (Auto) 9.8 (0.0-15.0) % Eos % (Auto) 0.0 (0.0-7.0) % Baso % (Auto) 0.0 (0.0-1.5) % Neut # (Auto) 5.1 (1.4-5.7) K/uL Lymph # (Auto) 1.1 (0.6-2.4) K/uL [place] # (Auto) 0.7 (0.0-0.8) K/uL Eos # (Auto) 0.0 (0.0-0.7) K/uL Baso # (Auto) 0.0 (0.0-0.1) K/uL Nucleated RBC % 0.0 /100WBC Nucleated RBCs # 0 K/uL Lactate 3.6 H* 3.7 H* (0.20-2.00) mmol/L Sodium (136-148) mmol/L Potassium (3.5-5.1) mmol/L Chloride (98-107) mmol/L Carbon Dioxide (21.0-32.0) mmol/L BUN (7.0-18.0) mg/dL Creatinine (0.8-1.3) mg/dL Est Cr Clr Drug Dosing mL/min Estimated GFR (MDRD) ml/min Glucose (74-106) mg/dL Calcium (8.5-10.1) mg/dL Phosphorus (2.6-4.7) mg/dL Magnesium (1.8-2.4) mg/dL 08/11/20 Range/Units 05:09 WBC (4.0-11.0) K/uL RBC (4.50-5.90) M/uL Hgb (13.0-17.0) g/dL Hct (38.0-50.0) % MCV (80.0-98.0) fL MCH (27.0-32.0) pg MCHC (31.0-37.0) g/dL RDW Std Deviation (28.0-62.0) fl RDW Coeff of Tre (11.0-15.0) % Plt Count (150-400) K/uL MPV (7.40-12.00) fL Neut % (Auto) (48.0-80.0) % Lymph % (Auto) (16.0-40.0) % [place] % (Auto) (0.0-15.0) % Eos % (Auto) (0.0-7.0) % Baso % (Auto) (0.0-1.5) % Neut # (Auto) (1.4-5.7) K/uL Lymph # (Auto) (0.6-2.4) K/uL [place] # (Auto) (0.0-0.8) K/uL Eos # (Auto) (0.0-0.7) K/uL Baso # (Auto) (0.0-0.1) K/uL Nucleated RBC % /100WBC Nucleated RBCs # K/uL Lactate (0.20-2.00) mmol/L Sodium 143 (136-148) mmol/L Potassium 4.4 (3.5-5.1) mmol/L Chloride 105 (98-107) mmol/L Carbon Dioxide 32.3 H (21.0-32.0) mmol/L BUN 48 H (7.0-18.0) mg/dL Creatinine 1.5 H (0.8-1.3) mg/dL Est Cr Clr Drug Dosing 45.43 mL/min Estimated GFR (MDRD) 47.7 ml/min Glucose 107 H (74-106) mg/dL Calcium 8.4 L (8.5-10.1) mg/dL Phosphorus 3.8 (2.6-4.7) mg/dL Magnesium 2.2 (1.8-2.4) mg/dL Steve Results Last 24 Hours: Microbiology 08/10/20 06:19 Aerobic Blood Culture - Preliminary Blood - Venous - Lab Draw NO GROWTH AFTER 1 DAY Anaerobic Blood Culture - Preliminary NO GROWTH AFTER 1 DAY 08/10/20 06:08 Aerobic Blood Culture - Preliminary Blood - Venous NO GROWTH AFTER 1 DAY Anaerobic Blood Culture - Preliminary NO GROWTH AFTER 1 DAY Med Orders - Current: Current Medications Acetaminophen (Acetaminophen 325 Mg Tab) 650 mg PO Q6H PRN PRN Reason: Pain Albuterol/Ipratropium (Albuterol/Ipratropium 3.0-0.5 Mg/3 Ml Neb Soln) 3 ml NEB Q4HRRT PRN PRN Reason: Dyspnea Apixaban (Apixaban 5 Mg Tab) 5 mg PO BID [facility] Last Admin: 08/11/20 09:44 Dose: 5 mg Documented by: Artificial Tears (Carboxymethylcellulose Sodium 0.5% Ophth Soln 0.4 Ml Ud Box Of 30) 1 each EYEBOTH Q8H PRN PRN Reason: Dry Eyes Calcium Carbonate (Calcium Carbonate/Vitamin D3 1500 Mg-400 Units Tab) 1 tab PO DAILY [facility] Last Admin: 08/11/20 09:44 Dose: 1 tab Documented by: Furosemide (Furosemide 40 Mg Tab) 40 mg PO DAILY [facility] Last Admin: 08/11/20 09:44 Dose: 40 mg Documented by: Gabapentin (Gabapentin 800 Mg Tab) 400 mg PO QID [facility] Last Admin: 08/11/20 05:13 Dose: 400 mg Documented by: Hydromorphone HCl (Hydromorphone 2 Mg Tab) 4 mg PO Q4H PRN PRN Reason: Pain Last Admin: 08/11/20 09:39 Dose: 4 mg Documented by: Pantoprazole Sodium 40 mg/ (Sodium Chloride) 10 mls @ 300 mls/hr IV DAILY [facility] Last Admin: 08/11/20 08:55 Dose: 300 mls/hr Documented by: Piperacillin Sod/Tazobactam (Sod 3.375 gm/ Sodium Chloride) 50 mls @ 100 mls/hr IV Q6H [facility] Last Admin: 08/11/20 05:18 Dose: 100 mls/hr Documented by: Methylprednisolone Sodium Succinate (Methylprednisolone Sodium Succinate 40 Mg/1 Ml Sdv) 40 mg IVPUSH Q12H [facility] Last Admin: 08/11/20 05:17 Dose: 40 mg Documented by: Metoprolol Tartrate (Metoprolol Tartrate 50 Mg Tab) 50 mg PO BID [facility] Last Admin: 08/11/20 09:41 Dose: 50 mg Documented by: Ondansetron HCl (Ondansetron 4 Mg/2 Ml Sdv) 4 mg IVPUSH Q4H PRN PRN Reason: Nausea/Vomiting Sodium Chloride (Sodium Chloride 0.9% 10 Ml Syringe) 10 ml FLUSH ASDIRECTED PRN PRN Reason: Keep Vein Open Last Admin: 08/10/20 05:03 Dose: 10 ml Documented by: Sodium Chloride (Sodium Chloride 0.9% 2.5 Ml Syringe) 2.5 ml FLUSH ASDIRECTED PRN PRN Reason: Keep Vein Open Last Admin: 08/10/20 05:03 Dose: 2.5 ml Documented by: Discontinued Medications Albuterol/Ipratropium (Albuterol/Ipratropium 3.0-0.5 Mg/3 Ml Neb Soln) 3 ml NEB ONETIME ONE Stop: 08/10/20 04:54 Last Admin: 08/10/20 05:03 Dose: 3 ml Documented by: Albuterol/Ipratropium (Albuterol/Ipratropium 3.0-0.5 Mg/3 Ml Neb Soln) 3 ml NEB Q4HRRT [facility] Last Admin: 08/11/20 06:39 Dose: Not Given Documented by: Furosemide (Furosemide 40 Mg/4 Ml Vial) 40 mg IVPUSH NOW ONE Stop: 08/10/20 04:54 Last Admin: 08/10/20 05:00 Dose: 40 mg Documented by: Piperacillin Sod/Tazobactam (Sod 3.375 gm/ Sodium Chloride) 50 mls @ 100 mls/hr IV ONETIME ONE Stop: 08/10/20 06:32 Last Admin: 08/10/20 06:35 Dose: 100 mls/hr Documented by: Piperacillin Sod/Tazobactam (Sod 3.375 gm/ Sodium Chloride) 50 mls @ 100 mls/hr IV Q6H [facility] Last Admin: 08/10/20 07:49 Dose: Not Given Documented by: Lactated Ringer's (Ringers, Lactated) 1,000 mls @ 125 mls/hr IV ONETIME ONE Stop: 08/10/20 21:09 Last Admin: 08/10/20 13:55 Dose: 125 mls/hr Documented by: Lactated Ringer's (Ringers, Lactated) 500 mls @ 500 mls/hr IV .BOLUS ONE Stop: 08/10/20 17:44 Last Admin: 08/10/20 16:58 Dose: 500 mls/hr Documented by: Methylprednisolone Sodium Succinate (Methylprednisolone Sodium Succinate 125 Mg/2 Ml Sdv) 125 mg IVPUSH ONETIME ONE Stop: 08/10/20 04:54 Last Admin: 08/10/20 05:03 Dose: 125 mg Documented by: Methylprednisolone Sodium Succinate (Methylprednisolone Sodium Succinate 40 Mg/1 Ml Sdv) 40 mg IVPUSH Q12H [facility] Last Admin: 08/10/20 13:57 Dose: Not Given Documented by: - Exam Quality Assessment: Supplemental Oxygen General: Alert, Oriented Lungs: Normal Respiratory Effort, Decreased Breath Sounds Cardiovascular: Irregular Rhythm. No: Tachycardia GI/Abdominal Exam: Normal Bowel Sounds, Soft, Non-Tender Peripheral Pulses: 3+: Dorsalis Pedis (L), Dorsalis Pedis (R) - Patient Data Lab Results Last 24 hrs: Laboratory Results - last 24 hr 08/10/20 08/10/20 08/11/20 Range/Units 15:40 20:00 05:09 WBC 6.86 (4.0-11.0) K/uL RBC 4.12 L (4.50-5.90) M/uL Hgb 9.5 L (13.0-17.0) g/dL Hct 34.7 L (38.0-50.0) % MCV 84.2 (80.0-98.0) fL MCH 23.1 L (27.0-32.0) pg MCHC 27.4 L (31.0-37.0) g/dL RDW Std Deviation 55.6 (28.0-62.0) fl RDW Coeff of Tre 18 H (11.0-15.0) % Plt Count 181 (150-400) K/uL MPV 10.30 (7.40-12.00) fL Neut % (Auto) 74.3 (48.0-80.0) % Lymph % (Auto) 15.9 L (16.0-40.0) % [place] % (Auto) 9.8 (0.0-15.0) % Eos % (Auto) 0.0 (0.0-7.0) % Baso % (Auto) 0.0 (0.0-1.5) % Neut # (Auto) 5.1 (1.4-5.7) K/uL Lymph # (Auto) 1.1 (0.6-2.4) K/uL [place] # (Auto) 0.7 (0.0-0.8) K/uL Eos # (Auto) 0.0 (0.0-0.7) K/uL Baso # (Auto) 0.0 (0.0-0.1) K/uL Nucleated RBC % 0.0 /100WBC Nucleated RBCs # 0 K/uL Lactate 3.6 H* 3.7 H* (0.20-2.00) mmol/L Sodium (136-148) mmol/L Potassium (3.5-5.1) mmol/L Chloride (98-107) mmol/L Carbon Dioxide (21.0-32.0) mmol/L BUN (7.0-18.0) mg/dL Creatinine (0.8-1.3) mg/dL Est Cr Clr Drug Dosing mL/min Estimated GFR (MDRD) ml/min Glucose (74-106) mg/dL Calcium (8.5-10.1) mg/dL Phosphorus (2.6-4.7) mg/dL Magnesium (1.8-2.4) mg/dL 08/11/20 Range/Units 05:09 WBC (4.0-11.0) K/uL RBC (4.50-5.90) M/uL Hgb (13.0-17.0) g/dL Hct (38.0-50.0) % MCV (80.0-98.0) fL MCH (27.0-32.0) pg MCHC (31.0-37.0) g/dL RDW Std Deviation (28.0-62.0) fl RDW Coeff of Tre (11.0-15.0) % Plt Count (150-400) K/uL MPV (7.40-12.00) fL Neut % (Auto) (48.0-80.0) % Lymph % (Auto) (16.0-40.0) % [place] % (Auto) (0.0-15.0) % Eos % (Auto) (0.0-7.0) % Baso % (Auto) (0.0-1.5) % Neut # (Auto) (1.4-5.7) K/uL Lymph # (Auto) (0.6-2.4) K/uL [place] # (Auto) (0.0-0.8) K/uL Eos # (Auto) (0.0-0.7) K/uL Baso # (Auto) (0.0-0.1) K/uL Nucleated RBC % /100WBC Nucleated RBCs # K/uL Lactate (0.20-2.00) mmol/L Sodium 143 (136-148) mmol/L Potassium 4.4 (3.5-5.1) mmol/L Chloride 105 (98-107) mmol/L Carbon Dioxide 32.3 H (21.0-32.0) mmol/L BUN 48 H (7.0-18.0) mg/dL Creatinine 1.5 H (0.8-1.3) mg/dL Est Cr Clr Drug Dosing 45.43 mL/min Estimated GFR (MDRD) 47.7 ml/min Glucose 107 H (74-106) mg/dL Calcium 8.4 L (8.5-10.1) mg/dL Phosphorus 3.8 (2.6-4.7) mg/dL Magnesium 2.2 (1.8-2.4) mg/dL Result Diagrams: 08/11/20 05:09 08/11/20 05:09 Steve Results Last 24 hrs: Microbiology 08/10/20 06:19 Aerobic Blood Culture - Preliminary Blood - Venous - Lab Draw NO GROWTH AFTER 1 DAY Anaerobic Blood Culture - Preliminary NO GROWTH AFTER 1 DAY 08/10/20 06:08 Aerobic Blood Culture - Preliminary Blood - Venous NO GROWTH AFTER 1 DAY Anaerobic Blood Culture - Preliminary NO GROWTH AFTER 1 DAY Sepsis Event Note - Evaluation Sepsis Screening Result: No Definite Risk - Focused Exam Vital Signs: Vital Signs Temp Pulse Pulse Resp BP BP Pulse Ox 08/11/20 09:41 77 147/88 H 08/11/20 07:33 36.7 C 81 17 133/88 98 08/11/20 05:21 36.3 C 66 17 125/73 98 08/11/20 00:45 36.6 C 73 18 146/85 H 98 - Problem List & Annotations (1) LIVAN (acute kidney injury) SNOMED Code(s): 53381429, 64783917 Code(s): N17.9 - ACUTE KIDNEY FAILURE, UNSPECIFIED Status: Acute Current Visit: Yes (2) Acute and chronic respiratory failure SNOMED Code(s): 11443939 Code(s): J96.20 - ACUTE AND CHR RESP FAILURE, UNSP W HYPOXIA OR HYPERCAPNIA Status: Acute Current Visit: No Qualifiers: Respiratory failure complication: hypoxia Qualified Code(s): J - Acute and chronic respiratory failure with hypoxia (3) CHF (congestive heart failure) SNOMED Code(s): 32812907 Code(s): I50.9 - HEART FAILURE, UNSPECIFIED Status: Acute Current Visit: No Qualifiers: Heart failure type: unspecified Heart failure chronicity: unspecified Qualified Code(s): I50.9 - Heart failure, unspecified (4) Lactic acid increased SNOMED Code(s): 76721852 Code(s): E87.2 - ACIDOSIS Status: Acute Current Visit: Yes - Problem List Review Problem List Initiated/Reviewed/Updated: Yes - My Orders Last 24 Hours: My Active Orders 08/10/20 Lunch Fluid Restriction [DIET] Heart Healthy Diet [DIET] 08/10/20 12:00 Gabapentin [Neurontin] 400 mg PO QID Piperacillin/Tazobactam [Piperacil-Tazobact] 3.375 gm Sodium Chloride 0.9% [Normal Saline] 50 ml IV Q6H 08/10/20 13:40 Elevate Extremity [RC] BID Elevate Foot of Bed [RC] ASDIRECTED FERNANDA Bandage [Elastic Wrap] [OM.PC] Routine 08/10/20 17:00 methylPREDNISolone Sod Succ [Solu-MEDROL] 40 mg IVPUSH Q12H 08/10/20 19:29 Resuscitation Status Routine 08/10/20 21:53 Carboxymethylcellulose Sodium [Refresh Plus 0.5%] 1 each EYEBOTH Q8H PRN 08/11/20 09:00 Calcium Carbonate/Vitamin D3 [Caltrate 600+D 1500 MG-400 Units] 1 tab PO DAILY Furosemide [Lasix] 40 mg PO DAILY 08/11/20 11:29 Chest w wo Cont [CT] Routine - Plan Plan:: 60 y/o M admitted for acute over chronic respiratory failure cont oxygenation to maintain pulse oxy >90% cont IV antibiotics, Zosyn for now cont IV steroids for underlying aspergillosis obtain chest CT FERNANDA wraps for b/l legs, elevate foot of bed, keep legs elevated monitor and replete electrolytes as needed LACTIC ACID NOT DUE TO SEPSIS, isolated lacticacidemia possible due to chronic hypoxia and dehydration, no need to trend
[2020-08-11] MEDS ORDERED: Iopamidol 755 MG/ML 500 ML Multipack Bottle IVPUSH STA ×2 (12:26→14:43)
--- NOTE | 2020-08-11 15:32 | CT ---
INDICATION: Nodular density seen on chest x-ray. TECHNIQUE: Volumetric helical scanning of the thorax was performed without and with 75 cc of Isovue 370 nonionic contrast material IV. Coronal and sagittal reconstructions were obtained. COMPARISON: Chest x-ray of 08/10/[address] of 06/14/2019. FINDINGS: The nodular density of concern on chest x-ray is due to a focus of benign sclerosis in the anterior end of the left 3rd rib. No pulmonary nodule is demonstrated. Postop changes of right upper lobectomy are again demonstrated. Mild pulmonary fibrosis is again demonstrated. No acute infiltrate is apparent. Marked bronchiectasis is again demonstrated in the left upper lobe as well as the right lower and middle lobes. No pleural effusions evident. No mediastinal or hilar lymphadenopathy is apparent. The heart size is normal. Images of the upper abdomen are unremarkable. IMPRESSION: 1. Upper left chest nodule density seen on chest x-ray due to a benign focus of sclerosis in the anterior end of the left 1st rib. No pulmonary nodule evident. 2. Post right upper lobectomy. 3. Severe bronchiectasis involving the left upper, right lower and right middle lobes. Please note that all CT scans at this facility use dose modulation, iterative reconstruction, and/or weight-based dosing when appropriate to reduce radiation dose to as low as reasonably achievable. Dictated by Parker Gonzalez MD @ Aug 11 2020 3:16PM Signed by Dr. Parker Gonzalez @ Aug 11 2020 3:30PM
[2020-08-12] MEDS: Sodium Chloride 0.9% 2.5 ML Syringe FLUSH PRN ×2 (00:04→04:55)
[2020-08-12] MEDS: HYDROmorphone 2 MG Tab PO PRN ×2 (04:08→09:52)
[2020-08-12] MEDS: methylPREDNISolone Sodium Succinate 40 MG/1 ML SDV IVPUSH SCH (04:53)
[2020-08-12] MEDS: Gabapentin 800 MG Tab PO SCH ×2 (05:01→12:02)
[2020-08-12] MEDS: Piperacillin/Tazobactam 3.375 GM in Sodium Chloride 0.9% 50 ML IV SCH ×2 (05:02→12:02)
[2020-08-12 05:49] LABS: CARBON DIOXIDE,CO2 32.3 mmol/L (21.0-32.0); POTASSIUM,K 4.2 mmol/L (3.5-5.1)
--- NOTE | 2020-08-12 09:05 | PCM.PN ---
- Patient Data Vitals - Most Recent: Last Vital Signs Temp 35.8 C L 08/12/20 04:35 Pulse 72 08/12/20 04:35 Resp 18 08/12/20 04:35 BP 131/68 08/12/20 04:35 Pulse Ox 96 08/12/20 04:35 Weight - Most Recent: 71.305 kg I&O - Last 24 Hours: Intake & Output 08/11/20 08/12/20 08/12/20 22:59 06:59 14:59 Intake Total 50 591 Output Total 800 Balance 50 -209 Lab Results Last 24 Hours: Laboratory Results - last 24 hr 08/12/20 08/12/20 Range/Units 04:50 04:50 WBC 7.35 (4.0-11.0) K/uL RBC 4.03 L (4.50-5.90) M/uL Hgb 9.4 L (13.0-17.0) g/dL Hct 33.9 L (38.0-50.0) % MCV 84.1 (80.0-98.0) fL MCH 23.3 L (27.0-32.0) pg MCHC 27.7 L (31.0-37.0) g/dL RDW Std Deviation 56.4 (28.0-62.0) fl RDW Coeff of Tre 18 H (11.0-15.0) % Plt Count 160 (150-400) K/uL MPV 10.10 (7.40-12.00) fL Neut % (Auto) 76.4 (48.0-80.0) % Lymph % (Auto) 13.3 L (16.0-40.0) % [place] % (Auto) 10.2 (0.0-15.0) % Eos % (Auto) 0.0 (0.0-7.0) % Baso % (Auto) 0.1 (0.0-1.5) % Neut # (Auto) 5.6 (1.4-5.7) K/uL Lymph # (Auto) 1.0 (0.6-2.4) K/uL [place] # (Auto) 0.8 (0.0-0.8) K/uL Eos # (Auto) 0.0 (0.0-0.7) K/uL Baso # (Auto) 0.0 (0.0-0.1) K/uL Nucleated RBC % 0.0 /100WBC Nucleated RBCs # 0 K/uL Sodium 140 (136-148) mmol/L Potassium 4.2 (3.5-5.1) mmol/L Chloride 103 (98-107) mmol/L Carbon Dioxide 32.3 H (21.0-32.0) mmol/L BUN 49 H (7.0-18.0) mg/dL Creatinine 1.5 H (0.8-1.3) mg/dL Est Cr Clr Drug Dosing 45.43 mL/min Estimated GFR (MDRD) 47.7 ml/min Glucose 144 H (74-106) mg/dL Calcium 8.2 L (8.5-10.1) mg/dL Phosphorus 3.7 (2.6-4.7) mg/dL Magnesium 2.4 (1.8-2.4) mg/dL Steve Results Last 24 Hours: Microbiology 08/10/20 06:19 Aerobic Blood Culture - Preliminary Blood - Venous - Lab Draw NO GROWTH AFTER 2 DAYS Anaerobic Blood Culture - Preliminary NO GROWTH AFTER 2 DAYS 08/10/20 06:08 Aerobic Blood Culture - Preliminary Blood - Venous NO GROWTH AFTER 2 DAYS Anaerobic Blood Culture - Preliminary NO GROWTH AFTER 2 DAYS Med Orders - Current: Current Medications Acetaminophen (Acetaminophen 325 Mg Tab) 650 mg PO Q6H PRN PRN Reason: Pain Albuterol/Ipratropium (Albuterol/Ipratropium 3.0-0.5 Mg/3 Ml Neb Soln) 3 ml NEB Q4HRRT PRN PRN Reason: Dyspnea Last Admin: 08/11/20 21:11 Dose: 3 ml Documented by: Apixaban (Apixaban 5 Mg Tab) 5 mg PO BID [facility] Last Admin: 08/11/20 21:07 Dose: 5 mg Documented by: Artificial Tears (Carboxymethylcellulose Sodium 0.5% Ophth Soln 0.4 Ml Ud Box Of 30) 1 each EYEBOTH Q8H PRN PRN Reason: Dry Eyes Calcium Carbonate (Calcium Carbonate/Vitamin D3 1500 Mg-400 Units Tab) 1 tab PO DAILY [facility] Last Admin: 08/11/20 09:44 Dose: 1 tab Documented by: Furosemide (Furosemide 40 Mg Tab) 40 mg PO DAILY [facility] Last Admin: 08/11/20 09:44 Dose: 40 mg Documented by: Gabapentin (Gabapentin 800 Mg Tab) 400 mg PO QID [facility] Last Admin: 08/12/20 05:01 Dose: 400 mg Documented by: Hydromorphone HCl (Hydromorphone 2 Mg Tab) 4 mg PO Q4H PRN PRN Reason: Pain Last Admin: 08/12/20 04:08 Dose: 4 mg Documented by: Pantoprazole Sodium 40 mg/ (Sodium Chloride) 10 mls @ 300 mls/hr IV DAILY [facility] Last Admin: 08/11/20 08:55 Dose: 300 mls/hr Documented by: Piperacillin Sod/Tazobactam (Sod 3.375 gm/ Sodium Chloride) 50 mls @ 100 mls/hr IV Q6H [facility] Last Admin: 08/12/20 05:02 Dose: 100 mls/hr Documented by: Methylprednisolone Sodium Succinate (Methylprednisolone Sodium Succinate 40 Mg/1 Ml Sdv) 40 mg IVPUSH Q12H [facility] Last Admin: 08/12/20 04:53 Dose: 40 mg Documented by: Metoprolol Tartrate (Metoprolol Tartrate 50 Mg Tab) 50 mg PO BID [facility] Last Admin: 08/11/20 21:07 Dose: 50 mg Documented by: Ondansetron HCl (Ondansetron 4 Mg/2 Ml Sdv) 4 mg IVPUSH Q4H PRN PRN Reason: Nausea/Vomiting Sodium Chloride (Sodium Chloride 0.9% 10 Ml Syringe) 10 ml FLUSH ASDIRECTED PRN PRN Reason: Keep Vein Open Last Admin: 08/10/20 05:03 Dose: 10 ml Documented by: Sodium Chloride (Sodium Chloride 0.9% 2.5 Ml Syringe) 2.5 ml FLUSH ASDIRECTED PRN PRN Reason: Keep Vein Open Last Admin: 08/12/20 04:55 Dose: 2.5 ml Documented by: Discontinued Medications Albuterol/Ipratropium (Albuterol/Ipratropium 3.0-0.5 Mg/3 Ml Neb Soln) 3 ml NEB ONETIME ONE Stop: 08/10/20 04:54 Last Admin: 08/10/20 05:03 Dose: 3 ml Documented by: Albuterol/Ipratropium (Albuterol/Ipratropium 3.0-0.5 Mg/3 Ml Neb Soln) 3 ml NEB Q4HRRT [facility] Last Admin: 08/11/20 11:41 Dose: Not Given Documented by: Furosemide (Furosemide 40 Mg/4 Ml Vial) 40 mg IVPUSH NOW ONE Stop: 08/10/20 04:54 Last Admin: 08/10/20 05:00 Dose: 40 mg Documented by: Piperacillin Sod/Tazobactam (Sod 3.375 gm/ Sodium Chloride) 50 mls @ 100 mls/hr IV ONETIME ONE Stop: 08/10/20 06:32 Last Admin: 08/10/20 06:35 Dose: 100 mls/hr Documented by: Piperacillin Sod/Tazobactam (Sod 3.375 gm/ Sodium Chloride) 50 mls @ 100 mls/hr IV Q6H [facility] Last Admin: 08/10/20 07:49 Dose: Not Given Documented by: Lactated Ringer's (Ringers, Lactated) 1,000 mls @ 125 mls/hr IV ONETIME ONE Stop: 08/10/20 21:09 Last Admin: 08/10/20 13:55 Dose: 125 mls/hr Documented by: Lactated Ringer's (Ringers, Lactated) 500 mls @ 500 mls/hr IV .BOLUS ONE Stop: 08/10/20 17:44 Last Admin: 08/10/20 16:58 Dose: 500 mls/hr Documented by: Iopamidol (Iopamidol 755 Mg/Ml 500 Ml Multipack Bottle) 75 ml IVPUSH ONETIME STA Stop: 08/11/20 12:27 Iopamidol (Iopamidol 755 Mg/Ml 500 Ml Multipack Bottle) 75 ml IVPUSH ONETIME STA Stop: 08/11/20 14:44 Last Admin: 08/11/20 14:45 Dose: 75 ml Documented by: Methylprednisolone Sodium Succinate (Methylprednisolone Sodium Succinate 125 Mg/2 Ml Sdv) 125 mg IVPUSH ONETIME ONE Stop: 08/10/20 04:54 Last Admin: 08/10/20 05:03 Dose: 125 mg Documented by: Methylprednisolone Sodium Succinate (Methylprednisolone Sodium Succinate 40 Mg/1 Ml Sdv) 40 mg IVPUSH Q12H [facility] Last Admin: 08/10/20 13:57 Dose: Not Given Documented by: - Patient Data Lab Results Last 24 hrs: Laboratory Results - last 24 hr 08/12/20 08/12/20 Range/Units 04:50 04:50 WBC 7.35 (4.0-11.0) K/uL RBC 4.03 L (4.50-5.90) M/uL Hgb 9.4 L (13.0-17.0) g/dL Hct 33.9 L (38.0-50.0) % MCV 84.1 (80.0-98.0) fL MCH 23.3 L (27.0-32.0) pg MCHC 27.7 L (31.0-37.0) g/dL RDW Std Deviation 56.4 (28.0-62.0) fl RDW Coeff of Tre 18 H (11.0-15.0) % Plt Count 160 (150-400) K/uL MPV 10.10 (7.40-12.00) fL Neut % (Auto) 76.4 (48.0-80.0) % Lymph % (Auto) 13.3 L (16.0-40.0) % [place] % (Auto) 10.2 (0.0-15.0) % Eos % (Auto) 0.0 (0.0-7.0) % Baso % (Auto) 0.1 (0.0-1.5) % Neut # (Auto) 5.6 (1.4-5.7) K/uL Lymph # (Auto) 1.0 (0.6-2.4) K/uL [place] # (Auto) 0.8 (0.0-0.8) K/uL Eos # (Auto) 0.0 (0.0-0.7) K/uL Baso # (Auto) 0.0 (0.0-0.1) K/uL Nucleated RBC % 0.0 /100WBC Nucleated RBCs # 0 K/uL Sodium 140 (136-148) mmol/L Potassium 4.2 (3.5-5.1) mmol/L Chloride 103 (98-107) mmol/L Carbon Dioxide 32.3 H (21.0-32.0) mmol/L BUN 49 H (7.0-18.0) mg/dL Creatinine 1.5 H (0.8-1.3) mg/dL Est Cr Clr Drug Dosing 45.43 mL/min Estimated GFR (MDRD) 47.7 ml/min Glucose 144 H (74-106) mg/dL Calcium 8.2 L (8.5-10.1) mg/dL Phosphorus 3.7 (2.6-4.7) mg/dL Magnesium 2.4 (1.8-2.4) mg/dL Result Diagrams: 08/12/20 04:50 08/12/20 04:50 Steve Results Last 24 hrs: Microbiology 08/10/20 06:19 Aerobic Blood Culture - Preliminary Blood - Venous - Lab Draw NO GROWTH AFTER 2 DAYS Anaerobic Blood Culture - Preliminary NO GROWTH AFTER 2 DAYS 08/10/20 06:08 Aerobic Blood Culture - Preliminary Blood - Venous NO GROWTH AFTER 2 DAYS Anaerobic Blood Culture - Preliminary NO GROWTH AFTER 2 DAYS Sepsis Event Note - Evaluation Sepsis Screening Result: No Definite Risk - Focused Exam Vital Signs: Vital Signs Temp Pulse Pulse Resp BP BP Pulse Ox 08/12/20 04:35 35.8 C L 72 18 131/68 96 08/12/20 00:12 36.9 C 70 16 106/65 95 08/11/20 21:07 80 122/83 - Problem List & Annotations (1) LIVAN (acute kidney injury) SNOMED Code(s): 95141067, 43040334 Code(s): N17.9 - ACUTE KIDNEY FAILURE, UNSPECIFIED Status: Acute Current Visit: Yes (2) Acute and chronic respiratory failure SNOMED Code(s): 04437940 Code(s): J96.20 - ACUTE AND CHR RESP FAILURE, UNSP W HYPOXIA OR HYPERCAPNIA Status: Acute Current Visit: No Qualifiers: Respiratory failure complication: hypoxia Qualified Code(s): J96.21 - Acute and chronic respiratory failure with hypoxia (3) CHF (congestive heart failure) SNOMED Code(s): 81702143 Code(s): I50.9 - HEART FAILURE, UNSPECIFIED Status: Acute Current Visit: No Qualifiers: Heart failure type: unspecified Heart failure chronicity: unspecified Qualified Code(s): I50.9 - Heart failure, unspecified (4) Lactic acid increased SNOMED Code(s): 55190651 Code(s): E87.2 - ACIDOSIS Status: Acute Current Visit: Yes - My Orders Last 24 Hours: My Active Orders 08/11/20 09:00 Calcium Carbonate/Vitamin D3 [Caltrate 600+D 1500 MG-400 Units] 1 tab PO DAILY Furosemide [Lasix] 40 mg PO DAILY - Plan Plan:: 60 y/o M admitted for acute over chronic respiratory failure cont oxygenation to maintain pulse oxy >90% cont IV antibiotics, Zosyn for now cont IV steroids for underlying aspergillosis obtain chest CT FERNANDA wraps for b/l legs, elevate foot of bed, keep legs elevated monitor and replete electrolytes as needed LACTIC ACID NOT DUE TO SEPSIS, isolated lacticacidemia possible due to chronic hypoxia and dehydration, no need to trend
[2020-08-12] MEDS: Furosemide 40 MG Tab PO SCH (10:45)
[2020-08-12] MEDS: Metoprolol Tartrate 50 MG Tab PO SCH (10:45)
[2020-08-12] MEDS: Apixaban 5 MG Tab PO SCH (10:46)
[2020-08-12] MEDS: Calcium Carbonate/Vitamin D3 1500 MG-400 Units Tab PO SCH (10:46)
[2020-08-12] MEDS: Pantoprazole 40 MG in Sodium Chloride 0.9% 10 ML IV SCH (10:47)
--- NOTE | 2020-08-12 11:59 | PCM.DCSUM1 ---
Discharge Summary - Discharge Data Discharge Disposition: Home, Self-Care 01 Condition: Good - Referral to Home Health Primary Care Physician: Connor Melchor MD - Discharge Diagnosis/Problem(s) (1) LIVAN (acute kidney injury) SNOMED Code(s): 07703250, 44397001 ICD Code: N17.9 - ACUTE KIDNEY FAILURE, UNSPECIFIED Status: Acute Current Visit: Yes (2) Acute and chronic respiratory failure SNOMED Code(s): 31918359 ICD Code: J96.20 - ACUTE AND CHR RESP FAILURE, UNSP W HYPOXIA OR HYPERCAPNIA Status: Acute Current Visit: No Qualifiers: Respiratory failure complication: hypoxia Qualified Code(s): J96.21 - Acute and chronic respiratory failure with hypoxia (3) CHF (congestive heart failure) SNOMED Code(s): 72547306 ICD Code: I50.9 - HEART FAILURE, UNSPECIFIED Status: Acute Current Visit: No Qualifiers: Heart failure type: unspecified Heart failure chronicity: unspecified Qualified Code(s): I50.9 - Heart failure, unspecified (4) Lactic acid increased SNOMED Code(s): 31537554 ICD Code: E87.2 - ACIDOSIS Status: Acute Current Visit: Yes - Discharge Plan Home Medications: Home Meds Apixaban [Eliquis] 5 mg PO BID tablet 07/21/18 [Rx] Metoprolol Tartrate [Lopressor] 50 mg PO BID tablet 07/21/18 [Rx] Gabapentin [Neurontin] 800 mg PO QID 08/05/18 [History] predniSONE 20 mg PO QAM 10/09/18 [History] Albuterol [Proventil Neb Soln] 1 ampule NEB Q4HRRT 08/10/20 [History] Calcium Carbonate/Vitamin D3 [Oyster Shell Calcium-Vit D Tab] 1 each PO DAILY 08/10/20 [History] Fluticasone/Vilanterol [Breo Ellipta 200-25 MCG Inhalation Kit] 1 puff DAILY 08/10/20 [History] Furosemide [Lasix] 40 mg PO DAILY 08/10/20 [History] HYDROmorphone [Dilaudid] 4 mg PO Q4H PRN 08/10/20 [History] Lansoprazole [Prevacid] 30 mg PO DAILY 08/10/20 [History] Testosterone 2 applic TD DAILY 08/10/20 [History] Forms: ED Department Discharge Referrals: Connor Melchor MD [Primary Care Provider] - 08/22/20 12:30 pm - Patient Data Vitals - Most Recent: Last Vital Signs Temp 36.6 C 08/12/20 08:00 Pulse 80 08/12/20 10:45 Resp 16 08/12/20 08:00 BP 136/76 08/12/20 10:45 Pulse Ox 95 08/12/20 08:00 Weight - Most Recent: 71.305 kg I&O - Last 24 hours: Intake & Output 08/11/20 08/12/20 08/12/20 22:59 06:59 14:59 Intake Total 50 591 Output Total 800 Balance 50 -209 Lab Results - Last 24 hrs: Laboratory Results - last 24 hr 08/12/20 08/12/20 Range/Units 04:50 04:50 WBC 7.35 (4.0-11.0) K/uL RBC 4.03 L (4.50-5.90) M/uL Hgb 9.4 L (13.0-17.0) g/dL Hct 33.9 L (38.0-50.0) % MCV 84.1 (80.0-98.0) fL MCH 23.3 L (27.0-32.0) pg MCHC 27.7 L (31.0-37.0) g/dL RDW Std Deviation 56.4 (28.0-62.0) fl RDW Coeff of Tre 18 H (11.0-15.0) % Plt Count 160 (150-400) K/uL MPV 10.10 (7.40-12.00) fL Neut % (Auto) 76.4 (48.0-80.0) % Lymph % (Auto) 13.3 L (16.0-40.0) % [place] % (Auto) 10.2 (0.0-15.0) % Eos % (Auto) 0.0 (0.0-7.0) % Baso % (Auto) 0.1 (0.0-1.5) % Neut # (Auto) 5.6 (1.4-5.7) K/uL Lymph # (Auto) 1.0 (0.6-2.4) K/uL [place] # (Auto) 0.8 (0.0-0.8) K/uL Eos # (Auto) 0.0 (0.0-0.7) K/uL Baso # (Auto) 0.0 (0.0-0.1) K/uL Nucleated RBC % 0.0 /100WBC Nucleated RBCs # 0 K/uL Sodium 140 (136-148) mmol/L Potassium 4.2 (3.5-5.1) mmol/L Chloride 103 (98-107) mmol/L Carbon Dioxide 32.3 H (21.0-32.0) mmol/L BUN 49 H (7.0-18.0) mg/dL Creatinine 1.5 H (0.8-1.3) mg/dL Est Cr Clr Drug Dosing 45.43 mL/min Estimated GFR (MDRD) 47.7 ml/min Glucose 144 H (74-106) mg/dL Calcium 8.2 L (8.5-10.1) mg/dL Phosphorus 3.7 (2.6-4.7) mg/dL Magnesium 2.4 (1.8-2.4) mg/dL SHILOH Results - Last 24 hrs: Microbiology 08/10/20 06:19 Aerobic Blood Culture - Preliminary Blood - Venous - Lab Draw NO GROWTH AFTER 2 DAYS Anaerobic Blood Culture - Preliminary NO GROWTH AFTER 2 DAYS 08/10/20 06:08 Aerobic Blood Culture - Preliminary Blood - Venous NO GROWTH AFTER 2 DAYS Anaerobic Blood Culture - Preliminary NO GROWTH AFTER 2 DAYS Med Orders - Current: Current Medications Acetaminophen (Acetaminophen 325 Mg Tab) 650 mg PO Q6H PRN PRN Reason: Pain Albuterol/Ipratropium (Albuterol/Ipratropium 3.0-0.5 Mg/3 Ml Neb Soln) 3 ml NEB Q4HRRT PRN PRN Reason: Dyspnea Last Admin: 08/11/20 21:11 Dose: 3 ml Documented by: Apixaban (Apixaban 5 Mg Tab) 5 mg PO BID [facility] Last Admin: 08/12/20 10:46 Dose: 5 mg Documented by: Artificial Tears (Carboxymethylcellulose Sodium 0.5% Ophth Soln 0.4 Ml Ud Box Of 30) 1 each EYEBOTH Q8H PRN PRN Reason: Dry Eyes Calcium Carbonate (Calcium Carbonate/Vitamin D3 1500 Mg-400 Units Tab) 1 tab PO DAILY [facility] Last Admin: 08/12/20 10:46 Dose: 1 tab Documented by: Furosemide (Furosemide 40 Mg Tab) 40 mg PO DAILY [facility] Last Admin: 08/12/20 10:45 Dose: 40 mg Documented by: Gabapentin (Gabapentin 800 Mg Tab) 400 mg PO QID [facility] Last Admin: 08/12/20 05:01 Dose: 400 mg Documented by: Hydromorphone HCl (Hydromorphone 2 Mg Tab) 4 mg PO Q4H PRN PRN Reason: Pain Last Admin: 08/12/20 09:52 Dose: 4 mg Documented by: Pantoprazole Sodium 40 mg/ (Sodium Chloride) 10 mls @ 300 mls/hr IV DAILY [facility] Last Admin: 08/12/20 10:47 Dose: 300 mls/hr Documented by: Piperacillin Sod/Tazobactam (Sod 3.375 gm/ Sodium Chloride) 50 mls @ 100 mls/hr IV Q6H [facility] Last Admin: 08/12/20 05:02 Dose: 100 mls/hr Documented by: Methylprednisolone Sodium Succinate (Methylprednisolone Sodium Succinate 40 Mg/1 Ml Sdv) 40 mg IVPUSH Q12H [facility] Last Admin: 08/12/20 04:53 Dose: 40 mg Documented by: Metoprolol Tartrate (Metoprolol Tartrate 50 Mg Tab) 50 mg PO BID [facility] Last Admin: 08/12/20 10:45 Dose: 50 mg Documented by: Ondansetron HCl (Ondansetron 4 Mg/2 Ml Sdv) 4 mg IVPUSH Q4H PRN PRN Reason: Nausea/Vomiting Sodium Chloride (Sodium Chloride 0.9% 10 Ml Syringe) 10 ml FLUSH ASDIRECTED PRN PRN Reason: Keep Vein Open Last Admin: 08/10/20 05:03 Dose: 10 ml Documented by: Sodium Chloride (Sodium Chloride 0.9% 2.5 Ml Syringe) 2.5 ml FLUSH ASDIRECTED PRN PRN Reason: Keep Vein Open Last Admin: 08/12/20 04:55 Dose: 2.5 ml Documented by: Discontinued Medications Albuterol/Ipratropium (Albuterol/Ipratropium 3.0-0.5 Mg/3 Ml Neb Soln) 3 ml NEB ONETIME ONE Stop: 08/10/20 04:54 Last Admin: 08/10/20 05:03 Dose: 3 ml Documented by: Albuterol/Ipratropium (Albuterol/Ipratropium 3.0-0.5 Mg/3 Ml Neb Soln) 3 ml NEB Q4HRRT [facility] Last Admin: 08/11/20 11:41 Dose: Not Given Documented by: Furosemide (Furosemide 40 Mg/4 Ml Vial) 40 mg IVPUSH NOW ONE Stop: 08/10/20 04:54 Last Admin: 08/10/20 05:00 Dose: 40 mg Documented by: Piperacillin Sod/Tazobactam (Sod 3.375 gm/ Sodium Chloride) 50 mls @ 100 mls/hr IV ONETIME ONE Stop: 08/10/20 06:32 Last Admin: 08/10/20 06:35 Dose: 100 mls/hr Documented by: Piperacillin Sod/Tazobactam (Sod 3.375 gm/ Sodium Chloride) 50 mls @ 100 mls/hr IV Q6H [facility] Last Admin: 08/10/20 07:49 Dose: Not Given Documented by: Lactated Ringer's (Ringers, Lactated) 1,000 mls @ 125 mls/hr IV ONETIME ONE Stop: 08/10/20 21:09 Last Admin: 08/10/20 13:55 Dose: 125 mls/hr Documented by: Lactated Ringer's (Ringers, Lactated) 500 mls @ 500 mls/hr IV .BOLUS ONE Stop: 08/10/20 17:44 Last Admin: 08/10/20 16:58 Dose: 500 mls/hr Documented by: Iopamidol (Iopamidol 755 Mg/Ml 500 Ml Multipack Bottle) 75 ml IVPUSH ONETIME STA Stop: 08/11/20 12:27 Iopamidol (Iopamidol 755 Mg/Ml 500 Ml Multipack Bottle) 75 ml IVPUSH ONETIME STA Stop: 08/11/20 14:44 Last Admin: 08/11/20 14:45 Dose: 75 ml Documented by: Methylprednisolone Sodium Succinate (Methylprednisolone Sodium Succinate 125 Mg/2 Ml Sdv) 125 mg IVPUSH ONETIME ONE Stop: 08/10/20 04:54 Last Admin: 08/10/20 05:03 Dose: 125 mg Documented by: Methylprednisolone Sodium Succinate (Methylprednisolone Sodium Succinate 40 Mg/1 Ml Sdv) 40 mg IVPUSH Q12H [facility] Last Admin: 08/10/20 13:57 Dose: Not Given Documented by:
[2020-08-12] MEDS ORDERED: Lactated Ringers 1,000 ML IV ONE (12:45)
[2020-08-12 13:58] VITALS: BP 142/78; PULSE 75
== END 2020-08-12 13:30 | disposition home or self-care (01) ==
LOC: MW.ED 04:09 → MW.MS 06:09
PROVIDERS: ADMIT Student in an Organized Health Care Education/Training Program; ATTEND Student in an Organized Health Care Education/Training Program
DX: J96.21 Acute and chronic respiratory failure with hypoxia (principal); B44.81 Allergic bronchopulmonary aspergillosis; I27.20 Pulmonary hypertension, unspecified; I13.0 Hypertensive heart and chronic kidney disease with heart failure and stage 1 through stage 4 chronic kidney disease, or unspecified chronic kidney disease; I50.9 Heart failure, unspecified; N18.9 Chronic kidney disease, unspecified; Z20.822 Contact with and (suspected) exposure to COVID-19; I48.91 Unspecified atrial fibrillation; I25.2 Old myocardial infarction; K21.9 Gastro-esophageal reflux disease without esophagitis; N17.9 Acute kidney failure, unspecified; E87.2 Acidosis; Z90.5 Acquired absence of kidney; Z88.8 Allergy status to other drugs, medicaments and biological substances; Z79.899 Other long term (current) drug therapy
CPT/HCPCS: 0240U; 36415; 71045; 71270; 80048; 80053; 81003; 83605; 83735; 83880; 84100; 84484; 85025; 87040; 93005; 94640; A9270; C9113; J1940; J2543; J2920; J2930; J7120; Q9967; 99284; J7620-GY

== ENCOUNTER 2020-09-14 14:47 | Inpatient (IN) | payer MEDICARE, OTHER ==
--- NOTE | 2020-09-14 14:52 | EDM.PDOC ---
ED HPI GENERAL MEDICAL PROBLEM - General Stated Complaint: SOB Time Seen by Provider: 09/14/20 14:48 - History of Present Illness INITIAL COMMENTS - FREE TEXT/NARRATIVE: 60yoM with a h/o a-fib on Eliquis, COPD, CHF, pulmonary aspergillosis, sleep apena with O2 dependance at night who is presenting with SOB. Patient was admitted to this facility proximately 3 weeks ago for shortness of breath he was diagnosed with pneumonia. He was treated for few days and discharged home on steroids and antibiotics. Prior to this admission he uses oxygen only at night. However since then he has been on for 4 to 5 L by nasal cannula continuously. He feels like since leaving the hospital he has had a slow and steady gradual decline. He reports compliance with all of his medications including his inhalers. He denies any chest pain either at rest or with exertion. He denies any cough or fever. He denies any lower extremity pain or swelling. He states that he feels like "an already full balloon" and that he has no more space to breathing. bodyaches Pain Score (Numeric/FACES): 5 - Related Data Allergies Allergy/AdvReac Type Severity Reaction Status Date / Time itraconazole [From Sporanox] Allergy Unknown Confusion Verified 09/14/20 15:05 levofloxacin [From Levaquin] Allergy Unknown Other Verified 09/14/20 15:05 Home Meds: Home Meds Apixaban [Eliquis] 5 mg PO BID tablet 07/21/18 [Rx] Metoprolol Tartrate [Lopressor] 50 mg PO BID tablet 07/21/18 [Rx] Gabapentin [Neurontin] 800 mg PO QID 08/05/18 [History] predniSONE 20 mg PO QAM 10/09/18 [History] Albuterol [Proventil Neb Soln] 1 ampule NEB Q4HRRT 08/10/20 [History] Calcium Carbonate/Vitamin D3 [Oyster Shell Calcium-Vit D Tab] 1 each PO DAILY 08/10/20 [History] Fluticasone/Vilanterol [Breo Ellipta 200-25 MCG Inhalation Kit] 1 puff DAILY 08/10/20 [History] Furosemide [Lasix] 40 mg PO DAILY 08/10/20 [History] HYDROmorphone [Dilaudid] 4 mg PO Q4H PRN 08/10/20 [History] Lansoprazole [Prevacid] 30 mg PO DAILY 08/10/20 [History] Testosterone 2 applic TD DAILY 08/10/20 [History] Amoxicillin/Clavulanate K [Augmentin 500-125 MG] 1 tab PO BID #10 tab 08/12/20 [Rx] predniSONE [Prednisone] 40 mg PO DAILY 5 Days #10 tablet 08/12/20 [Rx] Past Medical History HEENT History: Reports: Cataract Other HEENT History: dental fillings due to caries; recent tooth fracture Cardiovascular History: Reports: Afib, Cardiomyopathy, Heart Failure, Hypertension, CT Other Cardiovascular History: Heart attack April 2010 Respiratory History: Reports: Asthma, Bronchitis, Recurrent, PE, Pneumonia, Recurrent, Other (See Below) Other Respiratory History: Chronic pulmonary aspergillosis, 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 bilateral achilles tendon ruptures and repair., hip replacement, removal of left humerous, reverse right shoulder replacement Neurological History: Reports: Neuropathy, Peripheral, TIA Other Neuro History: TIA 1999 Psychiatric History: Reports: Anxiety, Depression Endocrine/Metabolic History: Reports: Osteoporosis Hematologic History: Reports: Anticoagulation Therapy Immunologic History: Reports: Immunosuppression Oncologic (Cancer) History: Reports: None Other Oncologic History: melanoma of the right eye Dermatologic History: Reports: Cellulitis, Melanoma, Other (See Below) Other Dermatologic History: 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 No explantation--they apparently just treated him with IV abx for months. - Past Surgical History Head Surgeries/Procedures: Reports: None HEENT Surgical History: Reports: Cataract Surgery Cardiovascular Surgical History: Reports: None Respiratory Surgical History: Reports: Lung Resection Other Respiratory Surgeries/Procedures: intubated last Feb 2018 and transfered to [facility] Surgical History: Reports: Colonoscopy Other GI Surgeries/Procedures: colostomy and reversal 20yrs ago Male Surgical History: Reports: None Endocrine Surgical History: Reports: None Neurological Surgical History: Reports: None Musculoskeletal Surgical History: Reports: Amputation, Shoulder Surgery, Other (See Below) Other Musculoskeletal Surgeries/Procedures:: L shoulder and left hip surgery. 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 with sx february 2020 Oncologic Surgical History: Reports: None Dermatological Surgical History: Reports: None Social & Family History - Family History Family Medical History: No Pertinent Family History - Caffeine Use Caffeine Use: Reports: Coffee - Living Situation & Occupation Living situation: Reports: Single, with Family (sons) Occupation: Disabled ED ROS GENERAL - Review of Systems Review Of Systems: See Below Free Text/Narrative/Comment: General: No fever. Skin: No rash. Eyes: No vision problems. ENT: No sore throat. Neck: No neck stiffness. Respiratory: Per HPI Cardiac: No chest pain. Gastrointestinal: No nausea, vomiting or abdominal pain. Urinary: No dysuria. Musculoskeletal: No myalgias/arthralgias. Neurologic: No headache. ED EXAM, GENERAL - Physical Exam Exam: See Below Free Text/Narrative:: General Appearance: No acute distress, appears comfortable Skin: No rash HEENT: Normocephalic/atraumatic, sclera anicteric, mucous membranes moist Neck: Normal range of motion Chest and Lungs: Increased work of breathing with diffuse monophonic expiratory wheezing with prolonged expiratory phase Cardiovascular: Minimally tachycardic rate and regular rhythm, no murmur Abdomen: Soft, non-tender Back: Normal Musculoskeletal: No edema or tenderness Neurologic: Awake, alert, no obvious deficits, moving all extremities Psychiatric: Appropriate, cooperative #1 Interpretation EKG Date: 09/14/20 Time: 15:02 EKG Interpretation Comments: Sinus tachycardia rate of 100 otherwise notable EKG normal axis no acute ischemia QTC 422 Course - Vital Signs Last Recorded V/S: Last Vital Signs Temp 98.4 F 09/14/20 14:52 Pulse 113 H 09/14/20 14:52 Resp 22 H 09/14/20 14:52 BP 125/68 09/14/20 14:52 Pulse Ox 95 09/14/20 14:52 - Orders/Labs/Meds Orders: Active Orders 24 hr Category Date Time Status RT Aerosol Therapy [RC] ASDIRECTED Care 09/14/20 15:11 Active CORONAVIRUS COVID-19 [facility] [[facility]] Stat Lab 09/14/20 15:42 Ordered Dextrose 50% in Water Med 09/14/20 15:40 Active 50 ml IV ASDIRECTED PRN Glucagon,Human Recombinant [GlucaGen] Med 09/14/20 15:40 Active 1 mg IM ASDIRECTED PRN Sodium Chloride 0.9% [Normal Saline] 1,000 ml Med 09/14/20 15:40 Active IV .Bolus Sodium Chloride 0.9% [Saline Flush] Med 09/14/20 15:09 Active 10 ml FLUSH ASDIRECTED PRN Sodium Chloride 0.9% [Saline Flush] Med 09/14/20 15:09 Active 2.5 ml FLUSH ASDIRECTED PRN Saline Lock Insert [OM.PC] Stat Oth 09/14/20 15:09 Ordered Medication Orders Dextrose/Water (50% Dextrose In Water 50 Ml Syringe) 50 ml IV ASDIRECTED PRN PRN Reason: Hypoglycemia Glucagon (Glucagon,Human Recombinant 1 Mg Vial) 1 mg IM ASDIRECTED PRN PRN Reason: Hypoglycemia Sodium Chloride (Normal Saline) 1,000 mls @ 500 mls/hr IV .Bolus ONE Stop: 09/14/20 17:39 Last Admin: 09/14/20 16:25 Dose: 500 mls/hr Documented by: ARANANG Sodium Chloride (Sodium Chloride 0.9% 10 Ml Syringe) 10 ml FLUSH ASDIRECTED PRN PRN Reason: Keep Vein Open Last Admin: 09/14/20 15:40 Dose: 10 ml Documented by: ARANANG Sodium Chloride (Sodium Chloride 0.9% 2.5 Ml Syringe) 2.5 ml FLUSH ASDIRECTED PRN PRN Reason: Keep Vein Open Last Admin: 09/14/20 15:40 Dose: 2.5 ml Documented by: ARABREANAG Labs: Laboratory Tests 09/14/20 09/14/20 09/14/20 Range/Units 14:57 14:57 14:57 WBC 13.47 H (4.0-11.0) K/uL RBC 4.28 L (4.50-5.90) M/uL Hgb 9.9 L (13.0-17.0) g/dL Hct 36.4 L (38.0-50.0) % MCV 85.0 (80.0-98.0) fL MCH 23.1 L (27.0-32.0) pg MCHC 27.2 L (31.0-37.0) g/dL RDW Std Deviation 59.2 (28.0-62.0) fl RDW Coeff of Tre 19 H (11.0-15.0) % Plt Count 282 (150-400) K/uL MPV 9.60 (7.40-12.00) fL Add Manual Diff YES Neutrophils % (Manual) 67 (48.0-80.0) % Band Neutrophils % 7 % Lymphocytes % (Manual) 18 (16.0-40.0) % Monocytes % (Manual) 8 (0.0-15.0) % Nucleated RBC % 0.4 /100WBC Absolute Seg Neuts 9.0 H (1.4-5.7) Band Neutrophils # 0.9 Lymphocytes # (Manual) 2.4 (0.6-2.4) Monocytes # (Manual) 1.1 H (0.0-0.8) Nucleated RBCs # 0 K/uL Sodium 136 (136-148) mmol/L Potassium 5.8 H (3.5-5.1) mmol/L Chloride 99 (98-107) mmol/L Carbon Dioxide 29.8 (21.0-32.0) mmol/L BUN 50 H (7.0-18.0) mg/dL Creatinine 3.4 H (0.8-1.3) mg/dL Est Cr Clr Drug Dosing 19.35 mL/min Estimated GFR (MDRD) 18.6 ml/min Glucose 161 H (74-106) mg/dL Calcium 7.7 L (8.5-10.1) mg/dL Magnesium 2.3 (1.8-2.4) mg/dL Total Bilirubin 0.7 (0.2-1.0) mg/dL AST 24 (15-37) IU/L ALT 22 (14-63) IU/L Alkaline Phosphatase 55 (46-116) U/L Troponin I < 0.050 (0.000-0.056) ng/mL B-Natriuretic Peptide 87 (<100) PG/ML Total Protein 7.3 (6.4-8.2) g/dL Albumin 3.1 L (3.4-5.0) g/dL Globulin 4.2 H (2.6-4.0) g/dL Albumin/Globulin Ratio 0.7 L (0.9-1.6) Meds: Medications Generic Name Dose Route Start Last Admin Trade Name Donq PRN Reason Stop Dose Admin Dextrose/Water 50 ml 09/14/20 15:40 50% Dextrose In Water 50 Ml Syringe IV ASDIRECTED PRN Hypoglycemia Glucagon 1 mg 09/14/20 15:40 Glucagon,Human Recombinant 1 Mg Vial IM ASDIRECTED PRN Hypoglycemia Sodium Chloride 1,000 mls @ 500 mls/hr 09/14/20 15:40 09/14/20 16:25 Normal Saline IV 09/14/20 17:39 500 mls/hr .Bolus ONE Administration Sodium Chloride 10 ml 09/14/20 15:09 09/14/20 15:40 Sodium Chloride 0.9% 10 Ml Syringe FLUSH 10 ml ASDIRECTED PRN Administration Keep Vein Open Sodium Chloride 2.5 ml 09/14/20 15:09 09/14/20 15:40 Sodium Chloride 0.9% 2.5 Ml Syringe FLUSH 2.5 ml ASDIRECTED PRN Administration Keep Vein Open Discontinued Medications Generic Name Dose Route Start Last Admin Trade Name Shiv PRN Reason Stop Dose Admin Albuterol 10 mg 09/14/20 15:11 09/14/20 15:31 Albuterol 0.5% 5 Mg/Ml Neb Soln 20 Ml Bottle NEB 09/14/20 15:12 10 mg ONETIME ONE Administration Calcium Gluconate 1 gm 09/14/20 15:42 09/14/20 16:14 Calcium Gluconate 10% 1 Gm/10 Ml Sdv IVPUSH 09/14/20 15:43 1 gm ONETIME ONE Administration Dextrose/Water 50 ml 09/14/20 15:40 09/14/20 16:10 50% Dextrose In Water 50 Ml Syringe IVPUSH 09/14/20 15:41 50 ml ONETIME ONE Administration Magnesium Sulfate 2 gm in 50 mls @ 150 mls/hr 09/14/20 15:30 09/14/20 15:27 Magnesium Sulfate In Water 2 Gm/50 Ml IV 09/14/20 15:49 150 mls/hr ONETIME ONE Administration Magnesium Sulfate 2 gm in 50 mls @ 50 mls/hr 09/14/20 15:21 09/14/20 15:40 Magnesium Sulfate In Water 2 Gm/50 Ml IV 09/14/20 16:20 Not Given ONETIME ONE Magnesium Sulfate Confirm 09/14/20 15:23 09/14/20 15:39 Magnesium Sulfate In Water 2 Gm/50 Ml Administered 09/14/20 15:24 Not Given Dose 2 gm in 50 mls @ as directed .ROUTE .STK-MED ONE Magnesium Sulfate 2 gm in 50 mls @ 150 mls/hr 09/14/20 15:45 Magnesium Sulfate In Water 2 Gm/50 Ml IV 09/14/20 16:04 ONETIME ONE Insulin Human Regular 10 unit 09/14/20 15:40 09/14/20 16:07 Insulin Regular, Human 100 Units/Ml 10 Ml Vial IVPUSH 09/14/20 15:41 10 units ONETIME ONE Administration Protocol Magnesium Sulfate 2 gm 09/14/20 15:10 Magnesium Sulfate (4.06 Meq/Ml) 5 Gm/10 Ml Sdv IV 09/14/20 15:11 NOW STA Sodium Polystyrene Sulfonate 45 gm 09/14/20 15:40 09/14/20 16:26 Sodium Polystyrene Sulfonate 15 Gm/60 Ml Susp 60 Ml Bot PO 09/14/20 15:41 45 gm NOW ONE Administration Departure - Departure Time of Disposition: 16:28 Disposition: Admitted As Inpatient 66 Condition: Fair Clinical Impression: COPD with exacerbation, Acute kidney injury, Hyperkalemia, Dehydration - Discharge Information *PRESCRIPTION DRUG MONITORING PROGRAM REVIEWED*: Not Applicable *COPY OF PRESCRIPTION DRUG MONITORING REPORT IN PATIENT KECIA: Not Applicable Referrals: Connor Melchor MD [Primary Care Provider] - Sepsis Event Note (ED) - Focused Exam Vital Signs: Vital Signs Temp Pulse Resp BP Pulse Ox 09/14/20 14:52 98.4 F 113 H 22 H 125/68 95 - My Orders Last 24 Hours: My Active Orders 09/14/20 15:09 Sodium Chloride 0.9% [Saline Flush] 10 ml FLUSH ASDIRECTED PRN Sodium Chloride 0.9% [Saline Flush] 2.5 ml FLUSH ASDIRECTED PRN Saline Lock Insert [OM.PC] Stat 09/14/20 15:11 RT Aerosol Therapy [RC] ASDIRECTED 09/14/20 15:40 Dextrose 50% in Water 50 ml IV ASDIRECTED PRN Glucagon,Human Recombinant [GlucaGen] 1 mg IM ASDIRECTED PRN Sodium Chloride 0.9% [Normal Saline] 1,000 ml IV .Bolus 09/14/20 15:42 CORONAVIRUS COVID-19 [facility] [[facility]] Stat - Assessment/Plan Last 24 Hours: My Active Orders 09/14/20 15:09 Sodium Chloride 0.9% [Saline Flush] 10 ml FLUSH ASDIRECTED PRN Sodium Chloride 0.9% [Saline Flush] 2.5 ml FLUSH ASDIRECTED PRN Saline Lock Insert [OM.PC] Stat 09/14/20 15:11 RT Aerosol Therapy [RC] ASDIRECTED 09/14/20 15:40 Dextrose 50% in Water 50 ml IV ASDIRECTED PRN Glucagon,Human Recombinant [GlucaGen] 1 mg IM ASDIRECTED PRN Sodium Chloride 0.9% [Normal Saline] 1,000 ml IV .Bolus 09/14/20 15:42 CORONAVIRUS COVID-19 [facility] [[facility]] Stat Assessment:: 60-year-old male presented with signs symptoms most consistent with COPD exacerbation. Pneumonia considered but no focality to lung exam chest x-ray pending. CHF considered but no lower extremity edema no crackles on exam EKG is without acute ischemia. Troponin BNP is pending. PE was carefully considered but patient's pulmonary exam strongly suggest bronchospasm. Patient is already on Eliquis for A. fib as well. Given significant bronchospasm hour-long neb treatment and magnesium has been ordered. Patient has already increased his home steroids from 20 mg daily to 40 mg daily. 1540: Labs show an acute kidney injury with a creatinine that has risen significantly with associated hyperkalemia. Clinically the patient certainly dehydrated. He reports that he has been on a fluid restriction. And has been trying to monitor his fluid intake but he continually feels thirsty. He is currently getting his breathing treatment. His lung daniels are clear no sign of edema no sign of pneumonia. Given his significant acute kidney injury with the associated COPD exacerbation I think he requires inpatient treatment at hospital. Covid swab will be taken and will discuss with hospitalist. 1630: Pt discussed with Dr. Gonsalves and will admit for further care and evaluation.
[2020-09-14] MEDS ORDERED: Sodium Chloride 0.9% 10 ML Syringe FLUSH PRN (15:09)
[2020-09-14] MEDS ORDERED: Sodium Chloride 0.9% 2.5 ML Syringe FLUSH PRN (15:09)
[2020-09-14] MEDS ORDERED: Magnesium Sulfate (4.06 MEQ/ML) 5 GM/10 ML SDV IV STA (15:10)
[2020-09-14] MEDS ORDERED: Albuterol 0.5% 5 MG/ML Neb Soln 20 ML Bottle NEB ONE (15:11)
[2020-09-14] MEDS ORDERED: Magnesium Sulfate/Water 2 GM/50 ML BAG IV ONE ×3 (15:21→15:45)
[2020-09-14] MEDS ORDERED: Magnesium Sulfate/Water 2 GM/50 ML BAG ONE (15:23)
[2020-09-14 15:29] LABS: BLOOD UREA NITROGEN,BUN 50 mg/dL (7.0-18.0); CARBON DIOXIDE,CO2 29.8 mmol/L (21.0-32.0); CHLORIDE,CL 99 mmol/L (98-107); GLUCOSE RANDOM 161 mg/dL (74-106); POTASSIUM,K 5.8 mmol/L (3.5-5.1); SODIUM,NA 136 mmol/L (136-148)
[2020-09-14] MEDS ORDERED: 50% Dextrose in Water 50 ML Syringe IV PRN (15:40)
[2020-09-14] MEDS ORDERED: Sodium Polystyrene Sulfonate 15 GM/60 ML Susp 60 ML Bot PO ONE (15:40)
[2020-09-14] MEDS ORDERED: 50% Dextrose in Water 50 ML Syringe IVPUSH ONE (15:40)
[2020-09-14] MEDS ORDERED: Sodium Chloride 0.9% 1,000 ML IV ONE (15:40)
[2020-09-14] MEDS ORDERED: Insulin Regular, Human 100 Units/ML 10 ML Vial IVPUSH ONE (15:40)
[2020-09-14] MEDS ORDERED: Glucagon,Human Recombinant 1 MG Vial IM PRN (15:40)
--- NOTE | 2020-09-14 15:41 | CR ---
Clinical indication : Congestive heart failure, COPD. Pulmonary aspergillosis. Pulmonary hypertension. Increased dyspnea. Comparison : Chest CT 08/11/2020 and chest radiograph 08/10/2020. FINDINGS: The heart and mediastinum are magnified by the AP technique. The lungs are clear. The pulmonary vasculature and pleural surfaces appear normal. The bony thorax appears intact. There is a left reverse total shoulder arthroplasty. There is incompletely visualized severe deformity of the right humeral head. IMPRESSION: No acute process identified. Dictated by Melvin Shah MD @ 09/14/2020 3:40:[address] Melvin Shah @ Sep 14 2020 3:40PM
[2020-09-14] MEDS ORDERED: Calcium Gluconate 10% 1 GM/10 ML SDV IVPUSH ONE (15:42)
[2020-09-14] MEDS ORDERED: HYDROMORPHONE 4 MG PO PRN (16:54)
[2020-09-14] MEDS ORDERED: HYDROMORPHONE 2 MG PO PRN (16:56)
--- NOTE | 2020-09-14 16:59 | PCM.HP.2 ---
H&P History of Present Illness - General Date of Service: 09/14/20 Admit Problem/Dx: Admission Diagnosis/Problem Admission Diagnosis/Problem Acute kidney injury - History of Present Illness Initial Comments - Free Text/Narative: This is a 60-year-old gentleman with a history significant for bronchopulmonary aspergillosis, COPD on chronic steroids, pulmonary hypertension, atrial fibrillation on anticoagulation, CHF, chronic kidney disease, status post left nephrectomy, obstructive sleep apnea who presents with worsening shortness of breath. He was admitted three weeks ago for acute hypoxic respiratory failure and was treated with steroids and antibiotics. Patient reports that after discharge every day he has felt a little worse. Patient reports he is unable to walk due to his shortness of breath. He denies any fever, orthopnea or chest pain. In the ED he was noted to be wheezing on lung exam. CXR was clear. HE did have an elevated creatinine of 3.4. He reports he has been taking his lasix daily which was an increase from prn dosing six weeks ago. bodyaches Pain Score (Numeric/FACES): 5 - Related Data Allergies/Adverse Reactions: Allergies Allergy/AdvReac Type Severity Reaction Status Date / Time itraconazole [From Sporanox] Allergy Unknown Confusion Verified 09/14/20 15:05 levofloxacin [From Levaquin] Allergy Unknown Other Verified 09/14/20 15:05 Home Medications: Home Meds Apixaban [Eliquis] 5 mg PO BID tablet 07/21/18 [Rx] Metoprolol Tartrate [Lopressor] 50 mg PO BID tablet 07/21/18 [Rx] Gabapentin [Neurontin] 800 mg PO QID 08/05/18 [History] predniSONE 20 mg PO QAM 10/09/18 [History] Albuterol [Proventil Neb Soln] 1 ampule NEB Q4HRRT 08/10/20 [History] Calcium Carbonate/Vitamin D3 [Oyster Shell Calcium-Vit D Tab] 1 each PO DAILY 08/10/20 [History] Fluticasone/Vilanterol [Breo Ellipta 200-25 MCG Inhalation Kit] 1 puff DAILY 08/10/20 [History] Furosemide [Lasix] 40 mg PO DAILY 08/10/20 [History] HYDROmorphone [Dilaudid] 4 mg PO Q4H PRN 08/10/20 [History] Lansoprazole [Prevacid] 30 mg PO DAILY 08/10/20 [History] Testosterone 2 applic TD DAILY 08/10/20 [History] Amoxicillin/Clavulanate K [Augmentin 500-125 MG] 1 tab PO BID #10 tab 08/12/20 [Rx] predniSONE [Prednisone] 40 mg PO DAILY 5 Days #10 tablet 08/12/20 [Rx] Past Medical History HEENT History: Reports: Cataract Other HEENT History: dental fillings due to caries; recent tooth fracture Cardiovascular History: Reports: Afib, Cardiomyopathy, Heart Failure, Hypertension, SD Other Cardiovascular History: Heart attack April 2010 Respiratory History: Reports: Asthma, Bronchitis, Recurrent, COPD, PE, Pneumonia, Recurrent, Other (See Below) Other Respiratory History: Chronic pulmonary aspergillosis, 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 on 02 at home - 2liters at daytime, 4 liters at bedtimeper nasal cannula Gastrointestinal History: Reports: Diverticulosis, GERD, Other (See Below) Other Gastrointestinal History: diverticulitis, peristalisis diagnosed with egd 2 weeks ago Genitourinary History: Reports: BPH, Renal Calculus, Renal Disease, UTI, Recurrent Other Genitourinary History: Left nephrectomy Musculoskeletal History: Reports: Arthritis, Back Pain, Chronic, Gout, Osteoporosis, RA, Other (See Below) Other Musculoskeletal History: lumbar fracture, rotator cap syndrome, bilateral feet fracture, osteomyelitis; hammer toes, elbow strain. bilateral achilles tendon ruptures and repair., hip replacement, removal of left humerous, reverse right shoulder replacement Neurological History: Reports: Neuropathy, Peripheral, TIA Other Neuro History: TIA 1999 Psychiatric History: Reports: Anxiety, Depression Endocrine/Metabolic History: Reports: Osteoporosis Hematologic History: Reports: Anticoagulation Therapy Immunologic History: Reports: Immunosuppression Oncologic (Cancer) History: Reports: None Other Oncologic History: melanoma of the right eye Dermatologic History: Reports: Cellulitis, Melanoma, Other (See Below) Other Dermatologic History: melanoma in the eye, 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 No explantation--they apparently just treated him with IV abx for months. - Past Surgical History Head Surgeries/Procedures: Reports: None HEENT Surgical History: Reports: Cataract Surgery Cardiovascular Surgical History: Reports: None Respiratory Surgical History: Reports: Lung Resection Other Respiratory Surgeries/Procedures: intubated last Feb 2018 and transfered to [facility] Surgical History: Reports: Colonoscopy Other GI Surgeries/Procedures: colostomy and reversal 20yrs ago Male Surgical History: Reports: None Endocrine Surgical History: Reports: None Neurological Surgical History: Reports: None Musculoskeletal Surgical History: Reports: Amputation, Shoulder Surgery, Other (See Below) Other Musculoskeletal Surgeries/Procedures:: L shoulder and left hip surgery. 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 with sx february 2020 Oncologic Surgical History: Reports: None Dermatological Surgical History: Reports: None Social & Family History - Family History Family Medical History: No Pertinent Family History - Tobacco Use Tobacco Use Status *Q: Never Tobacco User - Caffeine Use Caffeine Use: Reports: None - Recreational Drug Use Recreational Drug Use: No - Living Situation & Occupation Living situation: Reports: Single, with Family (sons) Occupation: Disabled H&P Review of Systems - Review of Systems: Review Of Systems: Comprehensive ROS is negative, except as noted in HPI. Exam - Exam Exam: See Below - Vital Signs Vital Signs: Last Vital Signs Temp 36.9 C 09/14/20 14:52 Pulse 124 H 09/14/20 16:30 Resp 22 H 09/14/20 16:30 BP 105/69 09/14/20 16:30 Pulse Ox 95 09/14/20 16:30 Weight: 74 kg - Exam General: Alert, Oriented HEENT: Mucosa Moist & Tice Neck: Supple Lungs: Normal Respiratory Effort, Decreased Breath Sounds, Wheezing Cardiovascular: Regular Rate, Regular Rhythm GI/Abdominal Exam: Normal Bowel Sounds, Soft, Non-Tender Extremities: Non-Tender, No Pedal Edema Skin: Warm, Dry, Intact Neurological: No: Focal Deficit - Patient Data Lab Results Last 24 hrs: Laboratory Results - last 24 hr 09/14/20 09/14/20 09/14/20 Range/Units 14:57 14:57 14:57 WBC 13.47 H (4.0-11.0) K/uL RBC 4.28 L (4.50-5.90) M/uL Hgb 9.9 L (13.0-17.0) g/dL Hct 36.4 L (38.0-50.0) % MCV 85.0 (80.0-98.0) fL MCH 23.1 L (27.0-32.0) pg MCHC 27.2 L (31.0-37.0) g/dL RDW Std Deviation 59.2 (28.0-62.0) fl RDW Coeff of Tre 19 H (11.0-15.0) % Plt Count 282 (150-400) K/uL MPV 9.60 (7.40-12.00) fL Add Manual Diff YES Neutrophils % (Manual) 67 (48.0-80.0) % Band Neutrophils % 7 % Lymphocytes % (Manual) 18 (16.0-40.0) % Monocytes % (Manual) 8 (0.0-15.0) % Nucleated RBC % 0.4 /100WBC Absolute Seg Neuts 9.0 H (1.4-5.7) Band Neutrophils # 0.9 Lymphocytes # (Manual) 2.4 (0.6-2.4) Monocytes # (Manual) 1.1 H (0.0-0.8) Nucleated RBCs # 0 K/uL Sodium 136 (136-148) mmol/L Potassium 5.8 H (3.5-5.1) mmol/L Chloride 99 (98-107) mmol/L Carbon Dioxide 29.8 (21.0-32.0) mmol/L BUN 50 H (7.0-18.0) mg/dL Creatinine 3.4 H (0.8-1.3) mg/dL Est Cr Clr Drug Dosing 19.35 mL/min Estimated GFR (MDRD) 18.6 ml/min Glucose 161 H (74-106) mg/dL Calcium 7.7 L (8.5-10.1) mg/dL Magnesium 2.3 (1.8-2.4) mg/dL Total Bilirubin 0.7 (0.2-1.0) mg/dL AST 24 (15-37) IU/L ALT 22 (14-63) IU/L Alkaline Phosphatase 55 (46-116) U/L Troponin I < 0.050 (0.000-0.056) ng/mL B-Natriuretic Peptide 87 (<100) PG/ML Total Protein 7.3 (6.4-8.2) g/dL Albumin 3.1 L (3.4-5.0) g/dL Globulin 4.2 H (2.6-4.0) g/dL Albumin/Globulin Ratio 0.7 L (0.9-1.6) Result Diagrams: 09/14/20 14:57 09/14/20 14:57 Sepsis Event Note - Evaluation Sepsis Screening Result: No Definite Risk - Focused Exam Vital Signs: Vital Signs Temp Pulse Resp BP Pulse Ox 09/14/20 16:30 124 H 22 H 105/69 95 09/14/20 14:52 36.9 C 113 H 22 H 125/68 95 Problem List Initiated/Reviewed/Updated: Yes Orders Last 24hrs: Active Orders 24 hr Category Date Time Status Patient Status [ADT] Routine ADT 09/14/20 16:29 Active Antiembolic Devices [RC] PER UNIT ROUTINE Care 09/14/20 16:58 Ordered Oxygen Therapy [RC] PRN Care 09/14/20 16:57 Ordered RT Aerosol Therapy [RC] ASDIRECTED Care 09/14/20 15:11 Active RT Aerosol Therapy [RC] ASDIRECTED Care 09/14/20 16:53 Active Up ad Jaja [RC] ASDIRECTED Care 09/14/20 16:57 Ordered VTE/DVT Education [RC] PER UNIT ROUTINE Care 09/14/20 16:57 Ordered Vital Signs [RC] Q4H Care 09/14/20 16:57 Ordered Regular Diet [DIET] Diet 09/14/20 Breakfast Ordered BASIC METABOLIC PANEL,BMP [CHEM] AM Lab 09/15/20 05:11 Ordered CBC WITH AUTO DIFF [HEME] AM Lab 09/15/20 05:11 Ordered CORONAVIRUS COVID-19 [place] [MOLEC] Stat Lab 09/14/20 16:35 Received CREATININE,URINE RAND [URCHEM] Stat Lab 09/14/20 16:56 Ordered SODIUM,URINE RANDOM [URCHEM] Stat Lab 09/14/20 16:56 Ordered UA W/SHILOH RFLX IF INDICATED [URIN] Stat Lab 09/14/20 16:54 Ordered Albuterol/Ipratropium [DuoNeb 3.0-0.5 MG/3 ML] Med 09/14/20 18:00 Active 3 ml NEB Q4HRRT Apixaban [Eliquis] Med 09/14/20 21:00 Active 5 mg PO BID Azithromycin [Zithromax] Med 09/14/20 17:00 Active 500 mg PO Q24H Dextrose 50% in Water Med 09/14/20 15:40 Active 50 ml IV ASDIRECTED PRN Gabapentin [Neurontin] Med 09/14/20 18:00 Active 800 mg PO QID Glucagon,Human Recombinant [GlucaGen] Med 09/14/20 15:40 Active 1 mg IM ASDIRECTED PRN HYDROmorphone Med 09/14/20 16:56 Ordered 2 mg PO Q4H PRN Metoprolol Tartrate [Lopressor] Med 09/14/20 21:00 Active 50 mg PO BID Sodium Chloride 0.9% [Normal Saline] 1,000 ml Med 09/14/20 15:40 Active IV .Bolus Sodium Chloride 0.9% [Saline Flush] Med 09/14/20 15:09 Active 10 ml FLUSH ASDIRECTED PRN Sodium Chloride 0.9% [Saline Flush] Med 09/14/20 15:09 Active 2.5 ml FLUSH ASDIRECTED PRN methylPREDNISolone Sod Succ [Solu-MEDROL] Med 09/14/20 17:00 Active 125 mg IVPUSH Q8H Saline Lock Insert [OM.PC] Stat Oth 09/14/20 15:09 Ordered Sequential Compression Device [OM.PC] Per Unit Routine Oth 09/14/20 16:58 Ordered Resuscitation Status Routine Resus Stat 09/14/20 16:57 Ordered Medication Orders Albuterol/Ipratropium (Albuterol/Ipratropium 3.0-0.5 Mg/3 Ml Neb Soln) 3 ml NEB Q4HRRT DANIELITO Apixaban (Apixaban 5 Mg Tab) 5 mg PO BID DANIELITO Azithromycin (Azithromycin 250 Mg Tab) 500 mg PO Q24H DANIELITO Dextrose/Water (50% Dextrose In Water 50 Ml Syringe) 50 ml IV ASDIRECTED PRN PRN Reason: Hypoglycemia Gabapentin (Gabapentin 800 Mg Tab) 800 mg PO QID DANIELITO Glucagon (Glucagon,Human Recombinant 1 Mg Vial) 1 mg IM ASDIRECTED PRN PRN Reason: Hypoglycemia Sodium Chloride (Normal Saline) 1,000 mls @ 500 mls/hr IV .Bolus ONE Stop: 09/14/20 17:39 Last Admin: 09/14/20 16:25 Dose: 500 mls/hr Documented by: MICHAEL Methylprednisolone Sodium Succinate (Methylprednisolone Sodium Succinate 125 Mg/2 Ml Sdv) 125 mg IVPUSH Q8H DANIELITO Metoprolol Tartrate (Metoprolol Tartrate 50 Mg Tab) 50 mg PO BID DANIELITO Non-Formulary Medication (Hydromorphone) 2 mg PO Q4H PRN PRN Reason: Pain Sodium Chloride (Sodium Chloride 0.9% 10 Ml Syringe) 10 ml FLUSH ASDIRECTED PRN PRN Reason: Keep Vein Open Last Admin: 09/14/20 15:40 Dose: 10 ml Documented by: MICHAEL Sodium Chloride (Sodium Chloride 0.9% 2.5 Ml Syringe) 2.5 ml FLUSH ASDIRECTED PRN PRN Reason: Keep Vein Open Last Admin: 09/14/20 15:40 Dose: 2.5 ml Documented by: MICHAEL Assessment/Plan Comment:: 60-year-old man with a history significant for bronchopulmonary aspergillosis, pulmonary hypertension, atrial fibrillation, CHF, chronic kidney disease, status post left nephrectomy, obstructive sleep apnea who was admitted for acute on chronic respiratory failure. COPD exacerbation: treating with Solumedrol, duonebs, and azithromycin Acute on chronic kidney disease: will hydrate with IV Fluids CHF/A.fib: continue eliquis, metoprolol, holding lasix
[2020-09-14] MEDS: methylPREDNISolone Sodium Succinate 125 MG/2 ML SDV IVPUSH SCH (17:31)
[2020-09-14] MEDS: Azithromycin 250 MG Tab PO SCH (17:32)
[2020-09-14] MEDS ORDERED: Gabapentin 800 MG Tab PO SCH (18:00)
[2020-09-14] MEDS: Gabapentin 100 MG Cap PO SCH (19:17)
[2020-09-14] MEDS: Gabapentin 300 MG Cap PO SCH (19:18)
[2020-09-14] MEDS ORDERED: Gabapentin 300 MG Cap PO SCH (22:00)
[2020-09-14] MEDS ORDERED: Gabapentin 100 MG Cap PO SCH (22:00)
[2020-09-14 22:18] LABS: POTASSIUM,K 4.9 mmol/L (3.5-5.1)
[2020-09-14] MEDS: Albuterol/Ipratropium 3.0-0.5 MG/3 ML Neb Soln NEB SCH (22:27)
[2020-09-14] MEDS: Apixaban 5 MG Tab PO SCH (22:28)
[2020-09-14] MEDS: Metoprolol Tartrate 50 MG Tab PO SCH (22:28)
[2020-09-14] MEDS ORDERED: Pantoprazole 40 MG Tab.CR PO ONE (22:30)
[2020-09-15] MEDS: Gabapentin 100 MG Cap PO SCH ×5 (00:32→23:37)
[2020-09-15] MEDS: Gabapentin 300 MG Cap PO SCH ×5 (00:33→23:38)
[2020-09-15] MEDS: Albuterol/Ipratropium 3.0-0.5 MG/3 ML Neb Soln NEB SCH ×7 (02:18→22:23)
[2020-09-15] MEDS: methylPREDNISolone Sodium Succinate 125 MG/2 ML SDV IVPUSH SCH ×3 (02:18→17:15)
[2020-09-15 06:08] LABS: CARBON DIOXIDE,CO2 31.7 mmol/L (21.0-32.0); POTASSIUM,K 4.5 mmol/L (3.5-5.1)
[2020-09-15] MEDS: Metoprolol Tartrate 50 MG Tab PO SCH ×2 (08:14→20:08)
[2020-09-15] MEDS: Apixaban 5 MG Tab PO SCH ×2 (08:14→20:07)
[2020-09-15] MEDS: Pantoprazole 40 MG Tab.CR PO SCH (08:15)
[2020-09-15] MEDS ORDERED: Pantoprazole 40 MG Tab.CR PO SCH (09:00)
--- NOTE | 2020-09-15 12:36 | PCM.PN ---
- General Info Date of Service: 09/15/20 Subjective Update: Bedside: feeling slightly better than yesterday; mention SOB at rest and especially w. exertion. no other acute complaints Functional Status: Reports: Pain Controlled - Review of Systems General: Reports: No Symptoms HEENT: Reports: No Symptoms Pulmonary: Reports: Shortness of Breath, Cough, Wheezing Cardiovascular: Reports: Dyspnea on Exertion Gastrointestinal: Reports: No Symptoms Genitourinary: Reports: No Symptoms Neurological: Reports: No Symptoms Psychiatric: Reports: No Symptoms - Patient Data Vitals - Most Recent: Last Vital Signs Temp 98.6 F 09/15/20 11:35 Pulse 86 09/15/20 11:35 Resp 18 09/15/20 11:35 BP 130/75 09/15/20 11:35 Pulse Ox 96 09/15/20 11:35 Weight - Most Recent: 73.981 kg I&O - Last 24 Hours: Intake & Output 09/14/20 09/15/20 09/15/20 22:59 06:59 14:59 Intake Total 300 Output Total 300 Balance 0 Lab Results Last 24 Hours: Laboratory Results - last 24 hr 09/14/20 09/14/20 09/14/20 Range/Units 14:57 14:57 14:57 WBC 13.47 H (4.0-11.0) K/uL RBC 4.28 L (4.50-5.90) M/uL Hgb 9.9 L (13.0-17.0) g/dL Hct 36.4 L (38.0-50.0) % MCV 85.0 (80.0-98.0) fL MCH 23.1 L (27.0-32.0) pg MCHC 27.2 L (31.0-37.0) g/dL RDW Std Deviation 59.2 (28.0-62.0) fl RDW Coeff of Tre 19 H (11.0-15.0) % Plt Count 282 (150-400) K/uL MPV 9.60 (7.40-12.00) fL Neut % (Auto) (48.0-80.0) % Lymph % (Auto) (16.0-40.0) % [place] % (Auto) (0.0-15.0) % Eos % (Auto) (0.0-7.0) % Baso % (Auto) (0.0-1.5) % Neut # (Auto) (1.4-5.7) K/uL Lymph # (Auto) (0.6-2.4) K/uL [place] # (Auto) (0.0-0.8) K/uL Eos # (Auto) (0.0-0.7) K/uL Baso # (Auto) (0.0-0.1) K/uL Add Manual Diff YES Neutrophils % (Manual) 67 (48.0-80.0) % Band Neutrophils % 7 % Lymphocytes % (Manual) 18 (16.0-40.0) % Monocytes % (Manual) 8 (0.0-15.0) % Nucleated RBC % 0.4 /100WBC Absolute Seg Neuts 9.0 H (1.4-5.7) Band Neutrophils # 0.9 Lymphocytes # (Manual) 2.4 (0.6-2.4) Monocytes # (Manual) 1.1 H (0.0-0.8) Nucleated RBCs # 0 K/uL Sodium 136 (136-148) mmol/L Potassium 5.8 H (3.5-5.1) mmol/L Chloride 99 (98-107) mmol/L Carbon Dioxide 29.8 (21.0-32.0) mmol/L BUN 50 H (7.0-18.0) mg/dL Creatinine 3.4 H (0.8-1.3) mg/dL Est Cr Clr Drug Dosing 19.35 mL/min Estimated GFR (MDRD) 18.6 ml/min Glucose 161 H (74-106) mg/dL Calcium 7.7 L (8.5-10.1) mg/dL Magnesium 2.3 (1.8-2.4) mg/dL Total Bilirubin 0.7 (0.2-1.0) mg/dL AST 24 (15-37) IU/L ALT 22 (14-63) IU/L Alkaline Phosphatase 55 (46-116) U/L Troponin I < 0.050 (0.000-0.056) ng/mL B-Natriuretic Peptide 87 (<100) PG/ML Total Protein 7.3 (6.4-8.2) g/dL Albumin 3.1 L (3.4-5.0) g/dL Globulin 4.2 H (2.6-4.0) g/dL Albumin/Globulin Ratio 0.7 L (0.9-1.6) Urine Color Urine Appearance Urine pH (5.0-8.0) Ur Specific [place] (1.001-1.035) Urine Protein (NEGATIVE) mg/dL Urine Glucose (UA) (NEGATIVE) mg/dL Urine Ketones (NEGATIVE) mg/dL Urine Occult Blood (NEGATIVE) Urine Nitrite (NEGATIVE) Urine Bilirubin (NEGATIVE) Urine Urobilinogen (<2.0) EU/dL Ur Leukocyte Esterase (NEGATIVE) Ur Random Creatinine mg/dL Ur Random Sodium (40.0-220.0) mmol/L SARS-CoV-2 RNA ([place]) (NEGATIVE) 09/14/20 09/14/20 09/14/20 Range/Units 16:35 17:46 17:46 WBC (4.0-11.0) K/uL RBC (4.50-5.90) M/uL Hgb (13.0-17.0) g/dL Hct (38.0-50.0) % MCV (80.0-98.0) fL MCH (27.0-32.0) pg MCHC (31.0-37.0) g/dL RDW Std Deviation (28.0-62.0) fl RDW Coeff of Tre (11.0-15.0) % Plt Count (150-400) K/uL MPV (7.40-12.00) fL Neut % (Auto) (48.0-80.0) % Lymph % (Auto) (16.0-40.0) % [place] % (Auto) (0.0-15.0) % Eos % (Auto) (0.0-7.0) % Baso % (Auto) (0.0-1.5) % Neut # (Auto) (1.4-5.7) K/uL Lymph # (Auto) (0.6-2.4) K/uL [place] # (Auto) (0.0-0.8) K/uL Eos # (Auto) (0.0-0.7) K/uL Baso # (Auto) (0.0-0.1) K/uL Add Manual Diff Neutrophils % (Manual) (48.0-80.0) % Band Neutrophils % % Lymphocytes % (Manual) (16.0-40.0) % Monocytes % (Manual) (0.0-15.0) % Nucleated RBC % /100WBC Absolute Seg Neuts (1.4-5.7) Band Neutrophils # Lymphocytes # (Manual) (0.6-2.4) Monocytes # (Manual) (0.0-0.8) Nucleated RBCs # K/uL Sodium (136-148) mmol/L Potassium (3.5-5.1) mmol/L Chloride (98-107) mmol/L Carbon Dioxide (21.0-32.0) mmol/L BUN (7.0-18.0) mg/dL Creatinine (0.8-1.3) mg/dL Est Cr Clr Drug Dosing mL/min Estimated GFR (MDRD) ml/min Glucose (74-106) mg/dL Calcium (8.5-10.1) mg/dL Magnesium (1.8-2.4) mg/dL Total Bilirubin (0.2-1.0) mg/dL AST (15-37) IU/L ALT (14-63) IU/L Alkaline Phosphatase (46-116) U/L Troponin I (0.000-0.056) ng/mL B-Natriuretic Peptide (<100) PG/ML Total Protein (6.4-8.2) g/dL Albumin (3.4-5.0) g/dL Globulin (2.6-4.0) g/dL Albumin/Globulin Ratio (0.9-1.6) Urine Color YELLOW Urine Appearance CLEAR Urine pH 5.0 (5.0-8.0) Ur Specific [place] 1.025 (1.001-1.035) Urine Protein NEGATIVE (NEGATIVE) mg/dL Urine Glucose (UA) NEGATIVE (NEGATIVE) mg/dL Urine Ketones NEGATIVE (NEGATIVE) mg/dL Urine Occult Blood NEGATIVE (NEGATIVE) Urine Nitrite NEGATIVE (NEGATIVE) Urine Bilirubin NEGATIVE (NEGATIVE) Urine Urobilinogen 0.2 (<2.0) EU/dL Ur Leukocyte Esterase NEGATIVE (NEGATIVE) Ur Random Creatinine 177.2 mg/dL Ur Random Sodium 34.0 L (40.0-220.0) mmol/L SARS-CoV-2 RNA ([place]) NEGATIVE (NEGATIVE) 09/14/20 09/15/20 09/15/20 Range/Units 21:51 05:35 05:35 WBC 7.32 (4.0-11.0) K/uL RBC 3.79 L (4.50-5.90) M/uL Hgb 8.7 L (13.0-17.0) g/dL Hct 31.6 L (38.0-50.0) % MCV 83.4 (80.0-98.0) fL MCH 23.0 L (27.0-32.0) pg MCHC 27.5 L (31.0-37.0) g/dL RDW Std Deviation 57.7 (28.0-62.0) fl RDW Coeff of Tre 19 H (11.0-15.0) % Plt Count 235 (150-400) K/uL MPV 9.50 (7.40-12.00) fL Neut % (Auto) 88.0 H (48.0-80.0) % Lymph % (Auto) 10.0 L (16.0-40.0) % [place] % (Auto) 2.0 (0.0-15.0) % Eos % (Auto) 0.0 (0.0-7.0) % Baso % (Auto) 0.0 (0.0-1.5) % Neut # (Auto) 6.4 H (1.4-5.7) K/uL Lymph # (Auto) 0.7 (0.6-2.4) K/uL [place] # (Auto) 0.2 (0.0-0.8) K/uL Eos # (Auto) 0.0 (0.0-0.7) K/uL Baso # (Auto) 0.0 (0.0-0.1) K/uL Add Manual Diff Neutrophils % (Manual) (48.0-80.0) % Band Neutrophils % % Lymphocytes % (Manual) (16.0-40.0) % Monocytes % (Manual) (0.0-15.0) % Nucleated RBC % 0.0 /100WBC Absolute Seg Neuts (1.4-5.7) Band Neutrophils # Lymphocytes # (Manual) (0.6-2.4) Monocytes # (Manual) (0.0-0.8) Nucleated RBCs # 0 K/uL Sodium 138 143 (136-148) mmol/L Potassium 4.9 4.5 (3.5-5.1) mmol/L Chloride 100 104 (98-107) mmol/L Carbon Dioxide 25.0 31.7 (21.0-32.0) mmol/L BUN 47 H 47 H (7.0-18.0) mg/dL Creatinine 3.2 H 2.4 H (0.8-1.3) mg/dL Est Cr Clr Drug Dosing 21.35 28.47 mL/min Estimated GFR (MDRD) 19.9 27.8 ml/min Glucose 313 H 189 H (74-106) mg/dL Calcium 7.4 L 7.2 L (8.5-10.1) mg/dL Magnesium (1.8-2.4) mg/dL Total Bilirubin (0.2-1.0) mg/dL AST (15-37) IU/L ALT (14-63) IU/L Alkaline Phosphatase (46-116) U/L Troponin I (0.000-0.056) ng/mL B-Natriuretic Peptide (<100) PG/ML Total Protein (6.4-8.2) g/dL Albumin (3.4-5.0) g/dL Globulin (2.6-4.0) g/dL Albumin/Globulin Ratio (0.9-1.6) Urine Color Urine Appearance Urine pH (5.0-8.0) Ur Specific [place] (1.001-1.035) Urine Protein (NEGATIVE) mg/dL Urine Glucose (UA) (NEGATIVE) mg/dL Urine Ketones (NEGATIVE) mg/dL Urine Occult Blood (NEGATIVE) Urine Nitrite (NEGATIVE) Urine Bilirubin (NEGATIVE) Urine Urobilinogen (<2.0) EU/dL Ur Leukocyte Esterase (NEGATIVE) Ur Random Creatinine mg/dL Ur Random Sodium (40.0-220.0) mmol/L SARS-CoV-2 RNA ([place]) (NEGATIVE) Med Orders - Current: Current Medications Albuterol/Ipratropium (Albuterol/Ipratropium 3.0-0.5 Mg/3 Ml Neb Soln) 3 ml NEB Q4HRRT [facility] Last Admin: 09/15/20 09:25 Dose: Not Given Documented by: Apixaban (Apixaban 5 Mg Tab) 5 mg PO BID [facility] Last Admin: 09/15/20 08:14 Dose: 5 mg Documented by: Azithromycin (Azithromycin 250 Mg Tab) 500 mg PO Q24H [facility] Last Admin: 09/14/20 17:32 Dose: 500 mg Documented by: Dextrose/Water (50% Dextrose In Water 50 Ml Syringe) 50 ml IV ASDIRECTED PRN PRN Reason: Hypoglycemia Gabapentin (Gabapentin 100 Mg Cap) 200 mg PO QID [facility] Last Admin: 09/15/20 11:33 Dose: 200 mg Documented by: Gabapentin (Gabapentin 300 Mg Cap) 600 mg PO QID [facility] Last Admin: 09/15/20 11:33 Dose: 600 mg Documented by: Glucagon (Glucagon,Human Recombinant 1 Mg Vial) 1 mg IM ASDIRECTED PRN PRN Reason: Hypoglycemia Hydromorphone HCl (Hydromorphone 2 Mg Tab) 2 mg PO Q4H PRN PRN Reason: Pain Methylprednisolone Sodium Succinate (Methylprednisolone Sodium Succinate 125 Mg/2 Ml Sdv) 125 mg IVPUSH Q8H [facility] Last Admin: 09/15/20 08:14 Dose: 125 mg Documented by: Metoprolol Tartrate (Metoprolol Tartrate 50 Mg Tab) 50 mg PO BID [facility] Last Admin: 09/15/20 08:14 Dose: 50 mg Documented by: Pantoprazole Sodium (Pantoprazole 40 Mg Tab.Cr) 40 mg PO ACBREAKFAST [facility] Last Admin: 09/15/20 08:15 Dose: 40 mg Documented by: Sodium Chloride (Sodium Chloride 0.9% 10 Ml Syringe) 10 ml FLUSH ASDIRECTED PRN PRN Reason: Keep Vein Open Last Admin: 09/14/20 15:40 Dose: 10 ml Documented by: Sodium Chloride (Sodium Chloride 0.9% 2.5 Ml Syringe) 2.5 ml FLUSH ASDIRECTED PRN PRN Reason: Keep Vein Open Last Admin: 09/14/20 15:40 Dose: 2.5 ml Documented by: Discontinued Medications Albuterol (Albuterol 0.5% 5 Mg/Ml Neb Soln 20 Ml Bottle) 10 mg NEB ONETIME ONE Stop: 09/14/20 15:12 Last Admin: 09/14/20 15:31 Dose: 10 mg Documented by: Calcium Gluconate (Calcium Gluconate 10% 1 Gm/10 Ml Sdv) 1 gm IVPUSH ONETIME ONE Stop: 09/14/20 15:43 Last Admin: 09/14/20 16:14 Dose: 1 gm Documented by: Dextrose/Water (50% Dextrose In Water 50 Ml Syringe) 50 ml IVPUSH ONETIME ONE Stop: 09/14/20 15:41 Last Admin: 09/14/20 16:10 Dose: 50 ml Documented by: Gabapentin (Gabapentin 800 Mg Tab) 800 mg PO QID [facility] Last Admin: 09/15/20 07:32 Dose: Not Given Documented by: Gabapentin (Gabapentin 100 Mg Cap) 200 mg PO TID [facility] Gabapentin (Gabapentin 300 Mg Cap) 600 mg PO TID [facility] Magnesium Sulfate (Magnesium Sulfate In Water 2 Gm/50 Ml) 2 gm in 50 mls @ 150 mls/hr IV ONETIME ONE Stop: 09/14/20 15:49 Last Admin: 09/14/20 15:27 Dose: 150 mls/hr Documented by: Magnesium Sulfate (Magnesium Sulfate In Water 2 Gm/50 Ml) 2 gm in 50 mls @ 50 mls/hr IV ONETIME ONE Stop: 09/14/20 16:20 Last Admin: 09/14/20 15:40 Dose: Not Given Documented by: Magnesium Sulfate (Magnesium Sulfate In Water 2 Gm/50 Ml) Confirm Administered Dose 2 gm in 50 mls @ as directed .ROUTE .STK-MED ONE Stop: 09/14/20 15:24 Last Admin: 09/14/20 15:39 Dose: Not Given Documented by: Magnesium Sulfate (Magnesium Sulfate In Water 2 Gm/50 Ml) 2 gm in 50 mls @ 150 mls/hr IV ONETIME ONE Stop: 09/14/20 16:04 Last Admin: 09/14/20 16:32 Dose: Not Given Documented by: Sodium Chloride (Normal Saline) 1,000 mls @ 500 mls/hr IV .Bolus ONE Stop: 09/14/20 17:39 Last Admin: 09/14/20 16:25 Dose: 500 mls/hr Documented by: Insulin Human Regular (Insulin Regular, Human 100 Units/Ml 10 Ml Vial) 10 unit IVPUSH ONETIME ONE; Protocol Stop: 09/14/20 15:41 Last Admin: 09/14/20 16:07 Dose: 10 units Documented by: Magnesium Sulfate (Magnesium Sulfate (4.06 Meq/Ml) 5 Gm/10 Ml Sdv) 2 gm IV NOW STA Stop: 09/14/20 15:11 Non-Formulary Medication (Hydromorphone) 4 mg PO Q4H PRN PRN Reason: Pain Non-Formulary Medication (Hydromorphone) 2 mg PO Q4H PRN PRN Reason: Pain Pantoprazole Sodium (Pantoprazole 40 Mg Tab.Cr) 40 mg PO DAILY [facility] Pantoprazole Sodium (Pantoprazole 40 Mg Tab.Cr) 40 mg PO NOW ONE Stop: 09/14/20 22:31 Last Admin: 09/14/20 22:26 Dose: 40 mg Documented by: Sodium Polystyrene Sulfonate (Sodium Polystyrene Sulfonate 15 Gm/60 Ml Susp 60 Ml Bot) 45 gm PO NOW ONE Stop: 09/14/20 15:41 Last Admin: 09/14/20 16:26 Dose: 45 gm Documented by: - Exam Quality Assessment: Supplemental Oxygen General: Alert, Oriented, Cooperative, No Acute Distress HEENT: EOMI, Other (dry mucosa ) Neck: Supple Lungs: Other (inspiratory/expiratory wheeze; minimal rhonchi; moving air otherwise ) GI/Abdominal Exam: Soft, Non-Tender Extremities: Normal Inspection Neurological: No New Focal Deficit Psy/Mental Status: Alert, Normal Affect, Normal Mood - Patient Data Lab Results Last 24 hrs: Laboratory Results - last 24 hr 09/14/20 09/14/20 09/14/20 Range/Units 14:57 14:57 14:57 WBC 13.47 H (4.0-11.0) K/uL RBC 4.28 L (4.50-5.90) M/uL Hgb 9.9 L (13.0-17.0) g/dL Hct 36.4 L (38.0-50.0) % MCV 85.0 (80.0-98.0) fL MCH 23.1 L (27.0-32.0) pg MCHC 27.2 L (31.0-37.0) g/dL RDW Std Deviation 59.2 (28.0-62.0) fl RDW Coeff of Tre 19 H (11.0-15.0) % Plt Count 282 (150-400) K/uL MPV 9.60 (7.40-12.00) fL Neut % (Auto) (48.0-80.0) % Lymph % (Auto) (16.0-40.0) % [place] % (Auto) (0.0-15.0) % Eos % (Auto) (0.0-7.0) % Baso % (Auto) (0.0-1.5) % Neut # (Auto) (1.4-5.7) K/uL Lymph # (Auto) (0.6-2.4) K/uL [place] # (Auto) (0.0-0.8) K/uL Eos # (Auto) (0.0-0.7) K/uL Baso # (Auto) (0.0-0.1) K/uL Add Manual Diff YES Neutrophils % (Manual) 67 (48.0-80.0) % Band Neutrophils % 7 % Lymphocytes % (Manual) 18 (16.0-40.0) % Monocytes % (Manual) 8 (0.0-15.0) % Nucleated RBC % 0.4 /100WBC Absolute Seg Neuts 9.0 H (1.4-5.7) Band Neutrophils # 0.9 Lymphocytes # (Manual) 2.4 (0.6-2.4) Monocytes # (Manual) 1.1 H (0.0-0.8) Nucleated RBCs # 0 K/uL Sodium 136 (136-148) mmol/L Potassium 5.8 H (3.5-5.1) mmol/L Chloride 99 (98-107) mmol/L Carbon Dioxide 29.8 (21.0-32.0) mmol/L BUN 50 H (7.0-18.0) mg/dL Creatinine 3.4 H (0.8-1.3) mg/dL Est Cr Clr Drug Dosing 19.35 mL/min Estimated GFR (MDRD) 18.6 ml/min Glucose 161 H (74-106) mg/dL Calcium 7.7 L (8.5-10.1) mg/dL Magnesium 2.3 (1.8-2.4) mg/dL Total Bilirubin 0.7 (0.2-1.0) mg/dL AST 24 (15-37) IU/L ALT 22 (14-63) IU/L Alkaline Phosphatase 55 (46-116) U/L Troponin I < 0.050 (0.000-0.056) ng/mL B-Natriuretic Peptide 87 (<100) PG/ML Total Protein 7.3 (6.4-8.2) g/dL Albumin 3.1 L (3.4-5.0) g/dL Globulin 4.2 H (2.6-4.0) g/dL Albumin/Globulin Ratio 0.7 L (0.9-1.6) Urine Color Urine Appearance Urine pH (5.0-8.0) Ur Specific [place] (1.001-1.035) Urine Protein (NEGATIVE) mg/dL Urine Glucose (UA) (NEGATIVE) mg/dL Urine Ketones (NEGATIVE) mg/dL Urine Occult Blood (NEGATIVE) Urine Nitrite (NEGATIVE) Urine Bilirubin (NEGATIVE) Urine Urobilinogen (<2.0) EU/dL Ur Leukocyte Esterase (NEGATIVE) Ur Random Creatinine mg/dL Ur Random Sodium (40.0-220.0) mmol/L SARS-CoV-2 RNA ([place]) (NEGATIVE) 09/14/20 09/14/20 09/14/20 Range/Units 16:35 17:46 17:46 WBC (4.0-11.0) K/uL RBC (4.50-5.90) M/uL Hgb (13.0-17.0) g/dL Hct (38.0-50.0) % MCV (80.0-98.0) fL MCH (27.0-32.0) pg MCHC (31.0-37.0) g/dL RDW Std Deviation (28.0-62.0) fl RDW Coeff of Tre (11.0-15.0) % Plt Count (150-400) K/uL MPV (7.40-12.00) fL Neut % (Auto) (48.0-80.0) % Lymph % (Auto) (16.0-40.0) % [place] % (Auto) (0.0-15.0) % Eos % (Auto) (0.0-7.0) % Baso % (Auto) (0.0-1.5) % Neut # (Auto) (1.4-5.7) K/uL Lymph # (Auto) (0.6-2.4) K/uL [place] # (Auto) (0.0-0.8) K/uL Eos # (Auto) (0.0-0.7) K/uL Baso # (Auto) (0.0-0.1) K/uL Add Manual Diff Neutrophils % (Manual) (48.0-80.0) % Band Neutrophils % % Lymphocytes % (Manual) (16.0-40.0) % Monocytes % (Manual) (0.0-15.0) % Nucleated RBC % /100WBC Absolute Seg Neuts (1.4-5.7) Band Neutrophils # Lymphocytes # (Manual) (0.6-2.4) Monocytes # (Manual) (0.0-0.8) Nucleated RBCs # K/uL Sodium (136-148) mmol/L Potassium (3.5-5.1) mmol/L Chloride (98-107) mmol/L Carbon Dioxide (21.0-32.0) mmol/L BUN (7.0-18.0) mg/dL Creatinine (0.8-1.3) mg/dL Est Cr Clr Drug Dosing mL/min Estimated GFR (MDRD) ml/min Glucose (74-106) mg/dL Calcium (8.5-10.1) mg/dL Magnesium (1.8-2.4) mg/dL Total Bilirubin (0.2-1.0) mg/dL AST (15-37) IU/L ALT (14-63) IU/L Alkaline Phosphatase (46-116) U/L Troponin I (0.000-0.056) ng/mL B-Natriuretic Peptide (<100) PG/ML Total Protein (6.4-8.2) g/dL Albumin (3.4-5.0) g/dL Globulin (2.6-4.0) g/dL Albumin/Globulin Ratio (0.9-1.6) Urine Color YELLOW Urine Appearance CLEAR Urine pH 5.0 (5.0-8.0) Ur Specific [place] 1.025 (1.001-1.035) Urine Protein NEGATIVE (NEGATIVE) mg/dL Urine Glucose (UA) NEGATIVE (NEGATIVE) mg/dL Urine Ketones NEGATIVE (NEGATIVE) mg/dL Urine Occult Blood NEGATIVE (NEGATIVE) Urine Nitrite NEGATIVE (NEGATIVE) Urine Bilirubin NEGATIVE (NEGATIVE) Urine Urobilinogen 0.2 (<2.0) EU/dL Ur Leukocyte Esterase NEGATIVE (NEGATIVE) Ur Random Creatinine 177.2 mg/dL Ur Random Sodium 34.0 L (40.0-220.0) mmol/L SARS-CoV-2 RNA ([place]) NEGATIVE (NEGATIVE) 09/14/20 09/15/20 09/15/20 Range/Units 21:51 05:35 05:35 WBC 7.32 (4.0-11.0) K/uL RBC 3.79 L (4.50-5.90) M/uL Hgb 8.7 L (13.0-17.0) g/dL Hct 31.6 L (38.0-50.0) % MCV 83.4 (80.0-98.0) fL MCH 23.0 L (27.0-32.0) pg MCHC 27.5 L (31.0-37.0) g/dL RDW Std Deviation 57.7 (28.0-62.0) fl RDW Coeff of Tre 19 H (11.0-15.0) % Plt Count 235 (150-400) K/uL MPV 9.50 (7.40-12.00) fL Neut % (Auto) 88.0 H (48.0-80.0) % Lymph % (Auto) 10.0 L (16.0-40.0) % [place] % (Auto) 2.0 (0.0-15.0) % Eos % (Auto) 0.0 (0.0-7.0) % Baso % (Auto) 0.0 (0.0-1.5) % Neut # (Auto) 6.4 H (1.4-5.7) K/uL Lymph # (Auto) 0.7 (0.6-2.4) K/uL [place] # (Auto) 0.2 (0.0-0.8) K/uL Eos # (Auto) 0.0 (0.0-0.7) K/uL Baso # (Auto) 0.0 (0.0-0.1) K/uL Add Manual Diff Neutrophils % (Manual) (48.0-80.0) % Band Neutrophils % % Lymphocytes % (Manual) (16.0-40.0) % Monocytes % (Manual) (0.0-15.0) % Nucleated RBC % 0.0 /100WBC Absolute Seg Neuts (1.4-5.7) Band Neutrophils # Lymphocytes # (Manual) (0.6-2.4) Monocytes # (Manual) (0.0-0.8) Nucleated RBCs # 0 K/uL Sodium 138 143 (136-148) mmol/L Potassium 4.9 4.5 (3.5-5.1) mmol/L Chloride 100 104 (98-107) mmol/L Carbon Dioxide 25.0 31.7 (21.0-32.0) mmol/L BUN 47 H 47 H (7.0-18.0) mg/dL Creatinine 3.2 H 2.4 H (0.8-1.3) mg/dL Est Cr Clr Drug Dosing 21.35 28.47 mL/min Estimated GFR (MDRD) 19.9 27.8 ml/min Glucose 313 H 189 H (74-106) mg/dL Calcium 7.4 L 7.2 L (8.5-10.1) mg/dL Magnesium (1.8-2.4) mg/dL Total Bilirubin (0.2-1.0) mg/dL AST (15-37) IU/L ALT (14-63) IU/L Alkaline Phosphatase (46-116) U/L Troponin I (0.000-0.056) ng/mL B-Natriuretic Peptide (<100) PG/ML Total Protein (6.4-8.2) g/dL Albumin (3.4-5.0) g/dL Globulin (2.6-4.0) g/dL Albumin/Globulin Ratio (0.9-1.6) Urine Color Urine Appearance Urine pH (5.0-8.0) Ur Specific [place] (1.001-1.035) Urine Protein (NEGATIVE) mg/dL Urine Glucose (UA) (NEGATIVE) mg/dL Urine Ketones (NEGATIVE) mg/dL Urine Occult Blood (NEGATIVE) Urine Nitrite (NEGATIVE) Urine Bilirubin (NEGATIVE) Urine Urobilinogen (<2.0) EU/dL Ur Leukocyte Esterase (NEGATIVE) Ur Random Creatinine mg/dL Ur Random Sodium (40.0-220.0) mmol/L SARS-CoV-2 RNA ([place]) (NEGATIVE) Result Diagrams: 09/15/20 05:35 09/15/20 05:35 Sepsis Event Note - Evaluation Sepsis Screening Result: No Definite Risk - Focused Exam Vital Signs: Vital Signs Temp Pulse Pulse Resp BP BP Pulse Ox 09/15/20 11:35 98.6 F 86 18 130/75 96 09/15/20 08:14 105 H 128/90 09/15/20 08:00 98.6 F 105 H 18 128/90 97 09/15/20 02:27 97.5 F 93 15 117/77 97 - Problem List Review Problem List Initiated/Reviewed/Updated: Yes - Plan Plan:: 60-year-old man with a history significant for bronchopulmonary aspergillosis, pulmonary hypertension, atrial fibrillation, CHF, chronic kidney disease, status post left nephrectomy, obstructive sleep apnea who was admitted for acute on chronic respiratory failure. COPD exacerbation: Continue with Solumedrol, (will switch to oral and consider prolonged steroid taper and possibly daily azithromycin/ consider EKG if this is determined), duonebs, and azithromycin Acute on chronic kidney disease: improving LIVAN; recheck in AM; tolerating PO intake CHF/A.fib: continue eliquis, metoprolol, holding lasix will consiuder referral to pulmonary rehab at discharge once appropriate; pulmonology appointment in [facility] already scheduled in October
[2020-09-15] MEDS: Azithromycin 250 MG Tab PO SCH (17:15)
[2020-09-15] MEDS: HYDROmorphone 2 MG Tab PO PRN ×2 (17:24→22:23)
[2020-09-16] MEDS: methylPREDNISolone Sodium Succinate 125 MG/2 ML SDV IVPUSH SCH ×2 (01:54→08:00)
[2020-09-16] MEDS: Albuterol/Ipratropium 3.0-0.5 MG/3 ML Neb Soln NEB SCH ×4 (03:00→14:11)
[2020-09-16] MEDS: HYDROmorphone 2 MG Tab PO PRN (04:05)
[2020-09-16 06:12] LABS: CARBON DIOXIDE,CO2 32.4 mmol/L (21.0-32.0)
[2020-09-16] MEDS: Gabapentin 100 MG Cap PO SCH (06:28)
[2020-09-16] MEDS: Gabapentin 300 MG Cap PO SCH (06:29)
[2020-09-16] MEDS: Pantoprazole 40 MG Tab.CR PO SCH (06:30)
[2020-09-16 07:45] VITALS: BP 117/71; PULSE 111
[2020-09-16] MEDS: Metoprolol Tartrate 50 MG Tab PO SCH (08:00)
[2020-09-16] MEDS ORDERED: Calcium Gluconate 10% 1 GM/10 ML SDV IVPUSH ONE (08:00)
[2020-09-16] MEDS: Apixaban 5 MG Tab PO SCH (08:00)
[2020-09-16] MEDS ORDERED: BREO ELLIPTA INH SCH (09:00)
[2020-09-16] MEDS ORDERED: SPIRIVA RESPIMAT 1.25 MCG INH SCH (09:00)
--- NOTE | 2020-09-16 10:40 | PCM.DCSUM1 ---
<Kaz Fleming - Last Filed: 09/16/20 12:07> Discharge Summary - Hospital Course Free Text/Narrative:: Patient is a 60-year-old male with a significant past medical history of chronic steroid use in light of history of aspergillosis, CHF, chronic pain/back pain on chronic opioid use, atrial fibrillation on anticoagulation: Presenting on September 14, 2020 with acute onset of shortness of breath. Of note patient was admitted 3 weeks prior for pneumonia however his home oxygen requirement had gone up from exclusively 2 L at night to 4 to 5 L continuously; because of this patient presented himself to the ED. ED course: EKG is without acute ischemia. Troponin negative LIVAN noted with creatinine elevated and severe hyperkalemia. Patient was given IV fluids and DuoNeb treatment Covid negative Hospital course: Patient was started on azithromycin 500 mg daily, IV methylprednisolone 125 every 8 hours, duo nebs, and continued home medications. Throughout stay patient was titrated down accordingly to oxygen requirements of 2 L and labs improved throughout stay. Creatinine had gone from 3.4-1.6 on IV fluids and despite some marginal dip in hemoglobin patient was vitally stable and did not have any overt signs of bleeding. No acute signs of CHF exacerbation Patient requesting discharge; patient was stable for discharge. History of aspergillosis with bronchiectasis and CHF: Recommendations were to continue fluid restriction at 1.8 L daily, We reduce the Lasix dosage to 20 mg daily as opposed to 40 and advised to take an extra dose of Lasix if weight increases by 8 to 10 pounds. If for whatever reason patient is to crease dose of Lasix advised to follow primary care. A primary care appointment has already been established in a pulmonology appointment in [facility] has also already been scheduled. Patient is to continue Breo and Spiriva and the rest inhalers as needed Patient was given a longer tapering dose of steroids; 40 mg prednisone for 10 days followed by 20 mg thereafter. 3 additional days of azithromycin 500 mg daily And advised to continue use oxygen 2 L throughout the day. Patient otherwise requested discharge. Patient was vitally stable and advised to follow-up with his primary care. Advised if worsening shortness of breath, chest pain or any other new symptoms develop to proceed to the ED immediately. - Discharge Data Discharge Date: 09/16/20 Discharge Disposition: Home, Self-Care 01 Condition: Fair - Referral to Home Health Primary Care Physician: Connor Melchor MD - Discharge Plan *PRESCRIPTION DRUG MONITORING PROGRAM REVIEWED*: Not Applicable *COPY OF PRESCRIPTION DRUG MONITORING REPORT IN PATIENT KECIA: Not Applicable Prescriptions/Med Rec: Furosemide [Lasix] 20 mg PO DAILY 30 Days #30 tablet predniSONE 40 mg PO DAILY 10 Days #10 tab predniSONE [Prednisone] 20 mg PO DAILY 4 Days #4 tablet Azithromycin [Zithromax] 500 mg PO Q24H 3 Days #3 tablet Home Medications: Home Meds Apixaban [Eliquis] 5 mg PO BID tablet 07/21/18 [Rx] Metoprolol Tartrate [Lopressor] 50 mg PO BID tablet 07/21/18 [Rx] Gabapentin [Neurontin] 800 mg PO QID 08/05/18 [History] Albuterol [Proventil Neb Soln] 1 ampule NEB Q4HRRT 08/10/20 [History] Calcium Carbonate/Vitamin D3 [Oyster Shell Calcium-Vit D Tab] 1 each PO BID 08/10/20 [History] Fluticasone/Vilanterol [Breo Ellipta 200-25 MCG Inhalation Kit] 1 puff DAILY 08/10/20 [History] HYDROmorphone [Dilaudid] 4 mg PO Q4H PRN 08/10/20 [History] Lansoprazole [Prevacid] 30 mg PO DAILY 08/10/20 [History] Testosterone 2 applic TD DAILY 08/10/20 [History] Tiotropium [place] [Spiriva Respimat] 2 puff INH DAILY 09/14/20 [History] Azithromycin [Zithromax] 500 mg PO Q24H 3 Days #3 tablet 09/16/20 [Rx] Furosemide [Lasix] 20 mg PO DAILY 30 Days #30 tablet 09/16/20 [Rx] Gabapentin [Neurontin] 800 mg PO QID tablet 09/16/20 [Rx] Patient's Own Medication [Ptom] 1 each INH DAILY each 09/16/20 [Rx] Patient's Own Medication [Ptom] 1 each INH DAILY each 09/16/20 [Rx] predniSONE 40 mg PO DAILY 10 Days #10 tab 09/16/20 [Rx] predniSONE [Prednisone] 20 mg PO DAILY 4 Days #4 tablet 09/16/20 [Rx] Oxygen Therapy Mode: Nasal Cannula Patient Handouts: Furosemide Oral Tablets, Dehydration, Adult, [id number], Azithromycin tablets, Prednisone tablets Forms: ED Department Discharge Referrals: Connor Melchor MD [Primary Care Provider] - 09/22/20 8:30 am - Discharge Summary/Plan Comment DC Time >30 min.: No - Patient Data Vitals - Most Recent: Last Vital Signs Temp 97.1 F 09/16/20 07:43 Pulse 111 H 09/16/20 08:00 Resp 20 09/16/20 07:43 BP 117/71 09/16/20 08:00 Pulse Ox 8 L 09/16/20 07:43 Weight - Most Recent: 73.981 kg I&O - Last 24 hours: Intake & Output 09/15/20 09/16/20 09/16/20 22:59 06:59 14:59 Intake Total 500 1130 Output Total 1250 800 Balance -750 330 Lab Results - Last 24 hrs: Laboratory Results - last 24 hr 09/16/20 09/16/20 Range/Units 05:45 05:45 WBC 8.68 (4.0-11.0) K/uL RBC 3.69 L (4.50-5.90) M/uL Hgb 8.5 L (13.0-17.0) g/dL Hct 30.6 L (38.0-50.0) % MCV 82.9 (80.0-98.0) fL MCH 23.0 L (27.0-32.0) pg MCHC 27.8 L (31.0-37.0) g/dL RDW Std Deviation 57.2 (28.0-62.0) fl RDW Coeff of Tre 19 H (11.0-15.0) % Plt Count 244 (150-400) K/uL MPV 9.80 (7.40-12.00) fL Neut % (Auto) 94.2 H (48.0-80.0) % Lymph % (Auto) 2.3 L (16.0-40.0) % [place] % (Auto) 3.5 (0.0-15.0) % Eos % (Auto) 0.0 (0.0-7.0) % Baso % (Auto) 0.0 (0.0-1.5) % Neut # (Auto) 8.2 H (1.4-5.7) K/uL Lymph # (Auto) 0.2 L (0.6-2.4) K/uL [place] # (Auto) 0.3 (0.0-0.8) K/uL Eos # (Auto) 0.0 (0.0-0.7) K/uL Baso # (Auto) 0.0 (0.0-0.1) K/uL Nucleated RBC % 0.5 /100WBC Nucleated RBCs # 0 K/uL Sodium 142 (136-148) mmol/L Potassium 4.0 (3.5-5.1) mmol/L Chloride 103 (98-107) mmol/L Carbon Dioxide 32.4 H (21.0-32.0) mmol/L BUN 45 H (7.0-18.0) mg/dL Creatinine 1.6 H (0.8-1.3) mg/dL Est Cr Clr Drug Dosing 42.71 mL/min Estimated GFR (MDRD) 44.3 ml/min Glucose 236 H (74-106) mg/dL Calcium 6.7 L (8.5-10.1) mg/dL Med Orders - Current: Current Medications Albuterol/Ipratropium (Albuterol/Ipratropium 3.0-0.5 Mg/3 Ml Neb Soln) 3 ml NEB Q4HRRT [facility] [place] Last Admin: 09/16/20 09:14 Dose: 3 ml Documented by: Apixaban (Apixaban 5 Mg Tab) 5 mg PO BID [facility] [place] Last Admin: 09/16/20 08:00 Dose: 5 mg Documented by: Azithromycin (Azithromycin 250 Mg Tab) 500 mg PO Q24H [facility] [place] Last Admin: 09/15/20 17:15 Dose: 500 mg Documented by: Dextrose/Water (50% Dextrose In Water 50 Ml Syringe) 50 ml IV ASDIRECTED PRN PRN Reason: Hypoglycemia Gabapentin (Gabapentin 800 Mg Tab) 800 mg PO QID [facility] [place] Glucagon (Glucagon,Human Recombinant 1 Mg Vial) 1 mg IM ASDIRECTED PRN PRN Reason: Hypoglycemia Hydromorphone HCl (Hydromorphone 2 Mg Tab) 2 mg PO Q4H PRN PRN Reason: Pain Last Admin: 09/16/20 04:05 Dose: 2 mg Documented by: Methylprednisolone Sodium Succinate (Methylprednisolone Sodium Succinate 125 Mg/2 Ml Sdv) 125 mg IVPUSH Q8H [facility] Last Admin: 09/16/20 08:00 Dose: 125 mg Documented by: Metoprolol Tartrate (Metoprolol Tartrate 50 Mg Tab) 50 mg PO BID [facility] [place] Last Admin: 09/16/20 08:00 Dose: 50 mg Documented by: Pantoprazole Sodium (Pantoprazole 40 Mg Tab.Cr) 40 mg PO ACBREAKFAST [facility] Last Admin: 09/16/20 06:30 Dose: 40 mg Documented by: Breo Ellipta 200/25 (Mcg) 1 each INH DAILY [facility] Last Admin: 09/16/20 09:15 Dose: 1 each Documented by: Spiriva Respimat 1. (25 Mcg) 1 each INH DAILY [facility] [place] Last Admin: 09/16/20 09:15 Dose: 1 each Documented by: Sodium Chloride (Sodium Chloride 0.9% 10 Ml Syringe) 10 ml FLUSH ASDIRECTED PRN PRN Reason: Keep Vein Open Last Admin: 09/14/20 15:40 Dose: 10 ml Documented by: Sodium Chloride (Sodium Chloride 0.9% 2.5 Ml Syringe) 2.5 ml FLUSH ASDIRECTED PRN PRN Reason: Keep Vein Open Last Admin: 09/14/20 15:40 Dose: 2.5 ml Documented by: Discontinued Medications Albuterol (Albuterol 0.5% 5 Mg/Ml Neb Soln 20 Ml Bottle) 10 mg NEB ONETIME ONE Stop: 09/14/20 15:12 Last Admin: 09/14/20 15:31 Dose: 10 mg Documented by: Calcium Gluconate (Calcium Gluconate 10% 1 Gm/10 Ml Sdv) 1 gm IVPUSH ONETIME ONE Stop: 09/14/20 15:43 Last Admin: 09/14/20 16:14 Dose: 1 gm Documented by: Calcium Gluconate (Calcium Gluconate 10% 1 Gm/10 Ml Sdv) 1 gm IVPUSH ONETIME ONE Stop: 09/16/20 08:01 Last Admin: 09/16/20 08:16 Dose: 1 gm Documented by: Dextrose/Water (50% Dextrose In Water 50 Ml Syringe) 50 ml IVPUSH ONETIME ONE Stop: 09/14/20 15:41 Last Admin: 09/14/20 16:10 Dose: 50 ml Documented by: Gabapentin (Gabapentin 800 Mg Tab) 800 mg PO QID [facility] [place] Last Admin: 09/15/20 07:32 Dose: Not Given Documented by: Gabapentin (Gabapentin 100 Mg Cap) 200 mg PO TID DANIELITO Gabapentin (Gabapentin 300 Mg Cap) 600 mg PO TID DANIELITO Gabapentin (Gabapentin 100 Mg Cap) 200 mg PO QID [facility] [place] Last Admin: 09/16/20 06:28 Dose: 200 mg Documented by: Gabapentin (Gabapentin 300 Mg Cap) 600 mg PO QID [facility] [place] Last Admin: 09/16/20 06:29 Dose: 600 mg Documented by: Magnesium Sulfate (Magnesium Sulfate In Water 2 Gm/50 Ml) 2 gm in 50 mls @ 150 mls/hr IV ONETIME ONE Stop: 09/14/20 15:49 Last Admin: 09/14/20 15:27 Dose: 150 mls/hr Documented by: Magnesium Sulfate (Magnesium Sulfate In Water 2 Gm/50 Ml) 2 gm in 50 mls @ 50 mls/hr IV ONETIME ONE Stop: 09/14/20 16:20 Last Admin: 09/14/20 15:40 Dose: Not Given Documented by: Magnesium Sulfate (Magnesium Sulfate In Water 2 Gm/50 Ml) Confirm Administered Dose 2 gm in 50 mls @ as directed .ROUTE .STK-MED ONE Stop: 09/14/20 15:24 Last Admin: 09/14/20 15:39 Dose: Not Given Documented by: Magnesium Sulfate (Magnesium Sulfate In Water 2 Gm/50 Ml) 2 gm in 50 mls @ 150 mls/hr IV ONETIME ONE Stop: 09/14/20 16:04 Last Admin: 09/14/20 16:32 Dose: Not Given Documented by: Sodium Chloride (Normal Saline) 1,000 mls @ 500 mls/hr IV .Bolus ONE Stop: 09/14/20 17:39 Last Admin: 09/14/20 16:25 Dose: 500 mls/hr Documented by: Insulin Human Regular (Insulin Regular, Human 100 Units/Ml 10 Ml Vial) 10 unit IVPUSH ONETIME ONE; Protocol Stop: 09/14/20 15:41 Last Admin: 09/14/20 16:07 Dose: 10 units Documented by: Magnesium Sulfate (Magnesium Sulfate (4.06 Meq/Ml) 5 Gm/10 Ml Sdv) 2 gm IV NOW STA Stop: 09/14/20 15:11 Non-Formulary Medication (Hydromorphone) 4 mg PO Q4H PRN PRN Reason: Pain Non-Formulary Medication (Hydromorphone) 2 mg PO Q4H PRN PRN Reason: Pain Pantoprazole Sodium (Pantoprazole 40 Mg Tab.Cr) 40 mg PO DAILY [facility] [place] Pantoprazole Sodium (Pantoprazole 40 Mg Tab.Cr) 40 mg PO NOW ONE Stop: 09/14/20 22:31 Last Admin: 09/14/20 22:26 Dose: 40 mg Documented by: Sodium Polystyrene Sulfonate (Sodium Polystyrene Sulfonate 15 Gm/60 Ml Susp 60 Ml Bot) 45 gm PO NOW ONE Stop: 09/14/20 15:41 Last Admin: 09/14/20 16:26 Dose: 45 gm Documented by: <Mian Gonsalves - Last Filed: 09/19/20 01:17> Discharge Summary - Referral to [facility] Primary Care Physician: Connor Melchor MD - Patient Data Vitals - Most Recent: Last Vital Signs Temp 36.2 C 09/16/20 07:43 Pulse 111 H 09/16/20 08:00 Resp 20 09/16/20 07:43 BP 117/71 09/16/20 08:00 Pulse Ox 8 L 09/16/20 07:43 Med Orders - Current: Current Medications Discontinued Medications Albuterol (Albuterol 0.5% 5 Mg/Ml Neb Soln 20 Ml Bottle) 10 mg NEB ONETIME ONE Stop: 09/14/20 15:12 Last Admin: 09/14/20 15:31 Dose: 10 mg Documented by: Albuterol/Ipratropium (Albuterol/Ipratropium 3.0-0.5 Mg/3 Ml Neb Soln) 3 ml NEB Q4HRRT [facility] [place] Last Admin: 09/16/20 14:11 Dose: 3 ml Documented by: Apixaban (Apixaban 5 Mg Tab) 5 mg PO BID [facility] [place] Last Admin: 09/16/20 08:00 Dose: 5 mg Documented by: Azithromycin (Azithromycin 250 Mg Tab) 500 mg PO Q24H [facility] [place] Last Admin: 09/15/20 17:15 Dose: 500 mg Documented by: Calcium Gluconate (Calcium Gluconate 10% 1 Gm/10 Ml Sdv) 1 gm IVPUSH ONETIME ONE Stop: 09/14/20 15:43 Last Admin: 09/14/20 16:14 Dose: 1 gm Documented by: Calcium Gluconate (Calcium Gluconate 10% 1 Gm/10 Ml Sdv) 1 gm IVPUSH ONETIME ONE Stop: 09/16/20 08:01 Last Admin: 09/16/20 08:16 Dose: 1 gm Documented by: Dextrose/Water (50% Dextrose In Water 50 Ml Syringe) 50 ml IVPUSH ONETIME ONE Stop: 09/14/20 15:41 Last Admin: 09/14/20 16:10 Dose: 50 ml Documented by: Dextrose/Water (50% Dextrose In Water 50 Ml Syringe) 50 ml IV ASDIRECTED PRN PRN Reason: Hypoglycemia Gabapentin (Gabapentin 800 Mg Tab) 800 mg PO QID [facility] [place] Last Admin: 09/15/20 07:32 Dose: Not Given Documented by: Gabapentin (Gabapentin 100 Mg Cap) 200 mg PO TID DANIELITO Gabapentin (Gabapentin 300 Mg Cap) 600 mg PO TID DANIELITO Gabapentin (Gabapentin 100 Mg Cap) 200 mg PO QID [facility] [place] Last Admin: 09/16/20 06:28 Dose: 200 mg Documented by: Gabapentin (Gabapentin 300 Mg Cap) 600 mg PO QID [facility] Last Admin: 09/16/20 06:29 Dose: 600 mg Documented by: Gabapentin (Gabapentin 800 Mg Tab) 800 mg PO QID [facility] Gabapentin (Gabapentin 300 Mg Cap) 600 mg PO QID [facility] [place] Last Admin: 09/16/20 11:45 Dose: 600 mg Documented by: Gabapentin (Gabapentin 100 Mg Cap) 200 mg PO QID [facility] Last Admin: 09/16/20 11:45 Dose: 200 mg Documented by: Glucagon (Glucagon,Human Recombinant 1 Mg Vial) 1 mg IM ASDIRECTED PRN PRN Reason: Hypoglycemia Hydromorphone HCl (Hydromorphone 2 Mg Tab) 2 mg PO Q4H PRN PRN Reason: Pain Last Admin: 09/16/20 04:05 Dose: 2 mg Documented by: Magnesium Sulfate (Magnesium Sulfate In Water 2 Gm/50 Ml) 2 gm in 50 mls @ 150 mls/hr IV ONETIME ONE Stop: 09/14/20 15:49 Last Admin: 09/14/20 15:27 Dose: 150 mls/hr Documented by: Magnesium Sulfate (Magnesium Sulfate In Water 2 Gm/50 Ml) 2 gm in 50 mls @ 50 mls/hr IV ONETIME ONE Stop: 09/14/20 16:20 Last Admin: 09/14/20 15:40 Dose: Not Given Documented by: Magnesium Sulfate (Magnesium Sulfate In Water 2 Gm/50 Ml) Confirm Administered Dose 2 gm in 50 mls @ as directed .ROUTE .STK-MED ONE Stop: 09/14/20 15:24 Last Admin: 09/14/20 15:39 Dose: Not Given Documented by: Magnesium Sulfate (Magnesium Sulfate In Water 2 Gm/50 Ml) 2 gm in 50 mls @ 150 mls/hr IV ONETIME ONE Stop: 09/14/20 16:04 Last Admin: 09/14/20 16:32 Dose: Not Given Documented by: Sodium Chloride (Normal Saline) 1,000 mls @ 500 mls/hr IV .Bolus ONE Stop: 09/14/20 17:39 Last Admin: 09/14/20 16:25 Dose: 500 mls/hr Documented by: Insulin Human Regular (Insulin Regular, Human 100 Units/Ml 10 Ml Vial) 10 unit IVPUSH ONETIME ONE; Protocol Stop: 09/14/20 15:41 Last Admin: 09/14/20 16:07 Dose: 10 units Documented by: Magnesium Sulfate (Magnesium Sulfate (4.06 Meq/Ml) 5 Gm/10 Ml Sdv) 2 gm IV NOW STA Stop: 09/14/20 15:11 Methylprednisolone Sodium Succinate (Methylprednisolone Sodium Succinate 125 Mg/2 Ml Sdv) 125 mg IVPUSH Q8H [facility] [place] Last Admin: 09/16/20 08:00 Dose: 125 mg Documented by: Metoprolol Tartrate (Metoprolol Tartrate 50 Mg Tab) 50 mg PO BID [facility] [place] Last Admin: 09/16/20 08:00 Dose: 50 mg Documented by: Non-Formulary Medication (Hydromorphone) 4 mg PO Q4H PRN PRN Reason: Pain Non-Formulary Medication (Hydromorphone) 2 mg PO Q4H PRN PRN Reason: Pain Pantoprazole Sodium (Pantoprazole 40 Mg Tab.Cr) 40 mg PO DAILY [facility] [place] Pantoprazole Sodium (Pantoprazole 40 Mg Tab.Cr) 40 mg PO NOW ONE Stop: 09/14/20 22:31 Last Admin: 09/14/20 22:26 Dose: 40 mg Documented by: Pantoprazole Sodium (Pantoprazole 40 Mg Tab.Cr) 40 mg PO ACBREAKFAST [facility] [place] Last Admin: 09/16/20 06:30 Dose: 40 mg Documented by: [place]ron Ellipta 200/25 (Mcg) 1 each INH DAILY [facility]ITO Last Admin: 09/16/20 09:15 Dose: 1 each Documented by: Spiriva Respimat 1. (25 Mcg) 1 each INH DAILY [facility] Last Admin: 09/16/20 09:15 Dose: 1 each Documented by: Sodium Chloride (Sodium Chloride 0.9% 10 Ml Syringe) 10 ml FLUSH ASDIRECTED PRN PRN Reason: Keep Vein Open Last Admin: 09/14/20 15:40 Dose: 10 ml Documented by: Sodium Chloride (Sodium Chloride 0.9% 2.5 Ml Syringe) 2.5 ml FLUSH ASDIRECTED PRN PRN Reason: Keep Vein Open Last Admin: 09/14/20 15:40 Dose: 2.5 ml Documented by: Sodium Polystyrene Sulfonate (Sodium Polystyrene Sulfonate 15 Gm/60 Ml Susp 60 Ml Bot) 45 gm PO NOW ONE Stop: 09/14/20 15:41 Last Admin: 09/14/20 16:26 Dose: 45 gm Documented by: - Free Text/Narrative Note: I have seen and evaluated the patient. I have discussed findings and treatment plan with resident. I agree with the assessment and plan as outlined in the following note.
[2020-09-16] MEDS ORDERED: Gabapentin 300 MG Cap PO SCH (12:00)
[2020-09-16] MEDS ORDERED: Gabapentin 100 MG Cap PO SCH (12:00)
[2020-09-16] MEDS ORDERED: Gabapentin 800 MG Tab PO SCH (12:00)
== END 2020-09-16 17:30 | disposition home or self-care (01) | DRG 682 ==
LOC: MW.ED 14:47 → MW.MS 16:29
PROVIDERS: ADMIT Internal Medicine; ATTEND Internal Medicine
DX: N17.9 Acute kidney failure, unspecified (principal); J96.01 Acute respiratory failure with hypoxia; E86.0 Dehydration; I13.0 Hypertensive heart and chronic kidney disease with heart failure and stage 1 through stage 4 chronic kidney disease, or unspecified chronic kidney disease; D84.9 Immunodeficiency, unspecified; I42.9 Cardiomyopathy, unspecified; I11.0 Hypertensive heart disease with heart failure; J44.1 Chronic obstructive pulmonary disease with (acute) exacerbation; I25.2 Old myocardial infarction; B44.1 Other pulmonary aspergillosis; E87.5 Hyperkalemia; I50.9 Heart failure, unspecified; G89.29 Other chronic pain; N28.9 Disorder of kidney and ureter, unspecified; M54.9 Dorsalgia, unspecified; I48.91 Unspecified atrial fibrillation; Z20.822 Contact with and (suspected) exposure to COVID-19; I27.20 Pulmonary hypertension, unspecified; N18.9 Chronic kidney disease, unspecified; G47.33 Obstructive sleep apnea (adult) (pediatric); K57.90 Diverticulosis of intestine, part unspecified, without perforation or abscess without bleeding; K21.9 Gastro-esophageal reflux disease without esophagitis; N40.0 Benign prostatic hyperplasia without lower urinary tract symptoms; Z86.711 Personal history of pulmonary embolism; M19.90 Unspecified osteoarthritis, unspecified site; Z90.5 Acquired absence of kidney; M10.9 Gout, unspecified; M81.0 Age-related osteoporosis without current pathological fracture; M06.9 Rheumatoid arthritis, unspecified; G62.9 Polyneuropathy, unspecified; F41.9 Anxiety disorder, unspecified; Z99.81 Dependence on supplemental oxygen; F32.9 Major depressive disorder, single episode, unspecified; Z85.820 Personal history of malignant melanoma of skin; Z79.01 Long term (current) use of anticoagulants; Z86.73 Personal history of transient ischemic attack (TIA), and cerebral infarction without residual deficits; Z79.899 Other long term (current) drug therapy; Z79.891 Long term (current) use of opiate analgesic; Z79.52 Long term (current) use of systemic steroids; Z88.1 Allergy status to other antibiotic agents; Z88.8 Allergy status to other drugs, medicaments and biological substances; Z98.890 Other specified postprocedural states; Z87.01 Personal history of pneumonia (recurrent); Z87.442 Personal history of urinary calculi; Z87.440 Personal history of urinary (tract) infections; Z98.49 Cataract extraction status, unspecified eye
CPT/HCPCS: 36415; 71045; 80053; 83735; 83880; 84484; 85025; 93005; 94640; 96365; 96375; 99285; A9270; J0610; J3475; J7030; 80048; 81003; 82570; 84300; 93010; 94664; 99284; J1815-GY; J2930; J7620-GY; U0002

== ENCOUNTER 2020-09-21 00:14 | Inpatient (IN) | payer MEDICARE, OTHER ==
[2020-09-21] MEDS ORDERED: Sodium Chloride 0.9% 10 ML Syringe FLUSH PRN (00:46)
[2020-09-21] MEDS ORDERED: Sodium Chloride 0.9% 2.5 ML Syringe FLUSH PRN (00:46)
[2020-09-21] MEDS ORDERED: Pantoprazole 40 MG in Sodium Chloride 0.9% 10 ML IV ONE (00:46)
[2020-09-21] MEDS ORDERED: Morphine 4 MG/ML Syringe IVPUSH ONE (00:49)
[2020-09-21] MEDS ORDERED: Metoclopramide 10 MG/2 ML SDV IVPUSH ONE (00:50)
--- NOTE | 2020-09-21 00:52 | EDM.PDOC ---
ED HPI GENERAL MEDICAL PROBLEM - General Chief Complaint: Abdominal Pain Stated Complaint: ABDOMINAL PAIN Time Seen by Provider: 09/21/20 00:18 - History of Present Illness INITIAL COMMENTS - FREE TEXT/NARRATIVE: History of present illness: [] Today the patient feels burning epigastric pain and severe pain in the left lower quadrant. He has diffuse abdominal pain with distention. He had a very small bowel movement this evening. He is vomiting yellowish material. His abdomen is distended enough that his belt had to be loosened to noxious today. He is able to get his pants on but not zipped them to the top or buckle them. He had prior abdominal surgery in the way of a partial colon resection for diverticulitis 8 or more years ago. The pain is moderately severe. Nothing makes it better. Review of systems: As per history of present illness and below otherwise all systems reviewed and negative. Past medical history: As per history of present illness and as reviewed below otherwise noncontributory. Surgical history: As per history of present illness and as reviewed below otherwise noncontributory. Social history: No reported history of drug or alcohol abuse. Family history: As per history of present illness and as reviewed below otherwise noncontributory. Physical exam: Constitutional - well developed, well-nourished and in no acute distress HEENT - normocephalic, no evidence of trauma - external nose and mouth normal - no mass in neck and no JVD - mucosae moist EYES - full EOM, PERRL, no icterus - no evidence of inflammation, injection, or drainage Respiratory - no respiratory distress, equal bilateral expansion, lungs clear to auscultation and no abnormal lung sounds Cardiovascular - Regular Rhythm with S1 and S2 appreciated and no murmur, gallop or rub. GI - abdomen soft with significant distension - normal bowel sounds - no guard or rebound -tender epigastrium and more so tender in the left lower quadrant. This just 10 -no hernia in the groin with cough. Musculoskeletal no gross deformity of long bones or joints - no tenderness, swelling or edema Neurologic - Alert and oriented times four - CN II-XII grossly intact - motor sensory and coordination symmetrically normal Psychiatric - appropriate mood and affect with normal thought content Hematologic - No petechiae or purpura - mucosa appropriate color and sclera not pale - normal nail bed color and refill Integument - no rash or evidence of trauma - normal turgor Diagnostics: [] Therapeutics: [] Impression: [] Plan: [] Definitive disposition and diagnosis as appropriate pending reevaluation and re view of above. Abdomen Pain Score (Numeric/FACES): 9 - Related Data Allergies Allergy/AdvReac Type Severity Reaction Status Date / Time itraconazole [From Sporanox] Allergy Unknown Confusion Verified 09/14/20 20:13 levofloxacin [From Levaquin] Allergy Unknown Other Verified 09/14/20 20:13 meropenem Allergy Swelling Verified 09/14/20 20:13 Home Meds: Home Meds Apixaban [Eliquis] 5 mg PO BID tablet 07/21/18 [Rx] Metoprolol Tartrate [Lopressor] 50 mg PO BID tablet 07/21/18 [Rx] Albuterol [Proventil Neb Soln] 1 ampule NEB Q4HRRT 08/10/20 [History] Calcium Carbonate/Vitamin D3 [Oyster Shell Calcium-Vit D Tab] 1 each PO BID 08/10/20 [History] Fluticasone/Vilanterol [Breo Ellipta 200-25 MCG Inhalation Kit] 1 puff INH DAILY 08/10/20 [History] HYDROmorphone [Dilaudid] 4 mg PO Q4H PRN 08/10/20 [History] Lansoprazole [Prevacid] 30 mg PO DAILY 08/10/20 [History] Testosterone 2 applic TD DAILY 08/10/20 [History] Tiotropium Renner [Spiriva Respimat] 2 puff INH DAILY 09/14/20 [History] Azithromycin [Zithromax] 500 mg PO Q24H 3 Days #3 tablet 09/16/20 [Rx] Gabapentin [Neurontin] 800 mg PO QID tablet 09/16/20 [Rx] Patient's Own Medication [Ptom] 1 each INH DAILY each 09/16/20 [Rx] Patient's Own Medication [Ptom] 1 each INH DAILY each 09/16/20 [Rx] predniSONE 40 mg PO DAILY 10 Days #10 tab 09/16/20 [Rx] Furosemide [Lasix] 40 mg PO DAILY 09/21/20 [History] Past Medical History HEENT History: Reports: Cataract Other HEENT History: dental fillings due to caries; recent tooth fracture Cardiovascular History: Reports: Afib, Cardiomyopathy, Heart Failure, Hypertension, CT Other Cardiovascular History: Heart attack April 2010, Pulmonary embolism 2009 Respiratory History: Reports: Asthma, Bronchitis, Recurrent, COPD, PE, Pneumonia, Recurrent, Other (See Below) Other Respiratory History: Chronic pulmonary aspergillosis, 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 on 02 at home - 2liters at daytime, 4 liters at bedtimeper nasal cannula Gastrointestinal History: Reports: Diverticulosis, GERD, Other (See Below) Other Gastrointestinal History: diverticulitis, peristalisis diagnosed with egd 2 weeks ago Genitourinary History: Reports: BPH, Renal Calculus, Renal Disease, UTI, Recurrent Other Genitourinary History: Left nephrectomy Musculoskeletal History: Reports: Arthritis, Back Pain, Chronic, Gout, Osteoporosis, RA, Other (See Below) Other Musculoskeletal History: lumbar fracture, rotator cap syndrome, bilateral feet fracture, osteomyelitis; hammer toes, elbow strain. 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 No explantation--they apparently just treated him with IV abx for months. - Past Surgical History Head Surgeries/Procedures: Reports: None HEENT Surgical History: Reports: Cataract Surgery Cardiovascular Surgical History: Reports: None Respiratory Surgical History: Reports: Lung Resection Other Respiratory Surgeries/Procedures: intubated last Feb 2018 and transfered to [facility] Surgical History: Reports: Colonoscopy Other GI Surgeries/Procedures: colostomy and reversal 20yrs ago Male Surgical History: Reports: None Endocrine Surgical History: Reports: None Neurological Surgical History: Reports: None Musculoskeletal Surgical History: Reports: Amputation, Shoulder Surgery, Other (See Below) Other Musculoskeletal Surgeries/Procedures:: L shoulder and left hip surgery. R sarah- antibiotic beads with sx february 2020 Oncologic Surgical History: Reports: None Dermatological Surgical History: Reports: None Social & Family History - Family History Family Medical History: No Pertinent Family History - Caffeine Use Caffeine Use: Reports: None - Living Situation & Occupation Living situation: Reports: Single, with Family (sons) Occupation: Disabled ED ROS GENERAL - Review of Systems Review Of Systems: Comprehensive ROS is negative, except as noted in HPI. ED EXAM, GENERAL - Physical Exam Exam: See Below Course - Vital Signs Text/Narrative:: 0132 hrs. this patient flagged for sepsis. See orders 02 18 there has been a delay in administering the broad-spectrum part of the antibiotics because of his reactions and my efforts to ascertain what he can take. He had facial swelling to meropenem. He had a significant reaction to Levaquin. He had ruptured his Achilles tendons. Call was placed to the pharmacist cyber incident responder. Review of the old chart reveals that in July 2018 he had multiple doses of piperacillin tazobactam and had no ill effects. 0222 hrs. patient anxious and orders given. 03 [address] Arias and the pharmacist cyber incident responder regarding management of the patient and admission orders written Last Recorded V/S: Last Vital Signs Temp 37.2 C 09/21/20 02:45 Pulse 98 09/21/20 02:45 Resp 25 H 09/21/20 02:45 BP 122/89 09/21/20 02:45 Pulse Ox 94 L 09/21/20 02:45 - Orders/Labs/Meds Orders: Active Orders 24 hr Category Date Time Status Admission Status [Patient Status] [ADT] Stat ADT 09/21/20 03:48 Ordered CORONAVIRUS COVID-19 [facility] [[facility]LEC] Stat Lab 09/21/20 03:05 Received CULTURE BLOOD [BC] Stat Lab 09/21/20 01:50 Received CULTURE BLOOD [BC] Stat Lab 09/21/20 02:00 Received Sodium Chloride 0.9% [Saline Flush] Med 09/21/20 00:46 Active 10 ml FLUSH ASDIRECTED PRN Sodium Chloride 0.9% [Saline Flush] Med 09/21/20 00:46 Active 2.5 ml FLUSH ASDIRECTED PRN Blood Culture x2 Reflex Set [OM.PC] Stat Oth 09/21/20 01:25 Ordered Saline Lock Insert [OM.PC] Stat Oth 09/21/20 00:46 Ordered Medication Orders Sodium Chloride (Sodium Chloride 0.9% 10 Ml Syringe) 10 ml FLUSH ASDIRECTED PRN PRN Reason: Keep Vein Open Sodium Chloride (Sodium Chloride 0.9% 2.5 Ml Syringe) 2.5 ml FLUSH ASDIRECTED PRN PRN Reason: Keep Vein Open Labs: Laboratory Tests 09/21/20 09/21/20 09/21/20 Range/Units 00:30 00:45 00:45 WBC 13.05 H (4.0-11.0) K/uL RBC 5.08 (4.50-5.90) M/uL Hgb 11.8 L (13.0-17.0) g/dL Hct 41.0 (38.0-50.0) % MCV 80.7 (80.0-98.0) fL MCH 23.2 L (27.0-32.0) pg MCHC 28.8 L (31.0-37.0) g/dL RDW Std Deviation 53.6 (28.0-62.0) fl RDW Coeff of Tre 19 H (11.0-15.0) % Plt Count 318 (150-400) K/uL MPV 10.20 (7.40-12.00) fL Add Manual Diff YES Neutrophils % (Manual) 74 (48.0-80.0) % Band Neutrophils % 1 % Lymphocytes % (Manual) 21 (16.0-40.0) % Monocytes % (Manual) 4 (0.0-15.0) % Absolute Seg Neuts 9.7 H (1.4-5.7) Band Neutrophils # 0.1 Lymphocytes # (Manual) 2.7 H (0.6-2.4) Monocytes # (Manual) 0.5 (0.0-0.8) Lactate 2.6 H* (0.20-2.00) mmol/L Sodium (136-148) mmol/L Potassium (3.5-5.1) mmol/L Chloride (98-107) mmol/L Carbon Dioxide (21.0-32.0) mmol/L BUN (7.0-18.0) mg/dL Creatinine (0.8-1.3) mg/dL Est Cr Clr Drug Dosing mL/min Estimated GFR (MDRD) ml/min Glucose (74-106) mg/dL Calcium (8.5-10.1) mg/dL Total Bilirubin (0.2-1.0) mg/dL AST (15-37) IU/L ALT (14-63) IU/L Alkaline Phosphatase (46-116) U/L Total Protein (6.4-8.2) g/dL Albumin (3.4-5.0) g/dL Globulin (2.6-4.0) g/dL Albumin/Globulin Ratio (0.9-1.6) Lipase (73-393) U/L Urine Color YELLOW Urine Appearance CLEAR Urine pH 7.5 (5.0-8.0) Ur Specific Yoder 1.015 (1.001-1.035) Urine Protein NEGATIVE (NEGATIVE) mg/dL Urine Glucose (UA) NEGATIVE (NEGATIVE) mg/dL Urine Ketones NEGATIVE (NEGATIVE) mg/dL Urine Occult Blood NEGATIVE (NEGATIVE) Urine Nitrite NEGATIVE (NEGATIVE) Urine Bilirubin NEGATIVE (NEGATIVE) Urine Urobilinogen 0.2 (<2.0) EU/dL Ur Leukocyte Esterase NEGATIVE (NEGATIVE) 09/21/20 09/21/20 Range/Units 00:45 03:30 WBC (4.0-11.0) K/uL RBC (4.50-5.90) M/uL Hgb (13.0-17.0) g/dL Hct (38.0-50.0) % MCV (80.0-98.0) fL MCH (27.0-32.0) pg MCHC (31.0-37.0) g/dL RDW Std Deviation (28.0-62.0) fl RDW Coeff of Tre (11.0-15.0) % Plt Count (150-400) K/uL MPV (7.40-12.00) fL Add Manual Diff Neutrophils % (Manual) (48.0-80.0) % Band Neutrophils % % Lymphocytes % (Manual) (16.0-40.0) % Monocytes % (Manual) (0.0-15.0) % Absolute Seg Neuts (1.4-5.7) Band Neutrophils # Lymphocytes # (Manual) (0.6-2.4) Monocytes # (Manual) (0.0-0.8) Lactate 1.0 (0.20-2.00) mmol/L Sodium 136 (136-148) mmol/L Potassium 4.3 (3.5-5.1) mmol/L Chloride 95 L (98-107) mmol/L Carbon Dioxide 31.9 (21.0-32.0) mmol/L BUN 31 H (7.0-18.0) mg/dL Creatinine 1.3 (0.8-1.3) mg/dL Est Cr Clr Drug Dosing 46.67 mL/min Estimated GFR (MDRD) 56.3 ml/min Glucose 104 (74-106) mg/dL Calcium 7.8 L (8.5-10.1) mg/dL Total Bilirubin 0.5 (0.2-1.0) mg/dL AST 28 (15-37) IU/L ALT 26 (14-63) IU/L Alkaline Phosphatase 50 (46-116) U/L Total Protein 7.9 (6.4-8.2) g/dL Albumin 3.2 L (3.4-5.0) g/dL Globulin 4.7 H (2.6-4.0) g/dL Albumin/Globulin Ratio 0.7 L (0.9-1.6) Lipase 449 H (73-393) U/L Urine Color Urine Appearance Urine pH (5.0-8.0) Ur Specific Yoder (1.001-1.035) Urine Protein (NEGATIVE) mg/dL Urine Glucose (UA) (NEGATIVE) mg/dL Urine Ketones (NEGATIVE) mg/dL Urine Occult Blood (NEGATIVE) Urine Nitrite (NEGATIVE) Urine Bilirubin (NEGATIVE) Urine Urobilinogen (<2.0) EU/dL Ur Leukocyte Esterase (NEGATIVE) Meds: Medications Generic Name Dose Route Start Last Admin Trade Name Freq PRN Reason Stop Dose Admin Sodium Chloride 10 ml 09/21/20 00:46 Sodium Chloride 0.9% 10 Ml Syringe FLUSH ASDIRECTED PRN Keep Vein Open Sodium Chloride 2.5 ml 09/21/20 00:46 Sodium Chloride 0.9% 2.5 Ml Syringe FLUSH ASDIRECTED PRN Keep Vein Open Discontinued Medications Generic Name Dose Route Start Last Admin Trade Name Freq PRN Reason Stop Dose Admin Pantoprazole Sodium 40 mg/ 10 mls @ 300 mls/hr 09/21/20 00:46 09/21/20 00:55 Sodium Chloride IV 09/21/20 00:47 300 mls/hr NOW ONE Administration Sodium Chloride 1,000 mls @ 999 mls/hr 09/21/20 01:28 09/21/20 02:03 Normal Saline IV 09/21/20 02:28 999 mls/hr .Bolus ONE Administration Sodium Chloride 1,000 mls @ 650 mls/hr 09/21/20 01:28 09/21/20 02:51 Normal Saline IV 09/21/20 03:00 650 mls/hr .Bolus ONE Administration Levofloxacin/Dextrose 750 mg/ 150 mls @ 100 mls/hr 09/21/20 01:29 09/21/20 02:52 Premix IV 09/21/20 02:58 Not Given ONETIME ONE Metronidazole 500 mg/ Premix 100 mls @ 100 mls/hr 09/21/20 01:31 09/21/20 02:03 IV 09/21/20 02:30 100 mls/hr ONETIME ONE Administration Levofloxacin/Dextrose Confirm 09/21/20 01:32 09/21/20 01:44 Levaquin In D5w 750 Mg/150 Ml Administered 09/21/20 01:33 Not Given Dose 150 mls @ as directed IV .STK-MED ONE Metronidazole Confirm 09/21/20 01:32 09/21/20 01:43 Flagyl In Ns 500 Mg/100 Ml Administered 09/21/20 01:33 Not Given Dose 100 mls @ as directed .ROUTE .STK-MED ONE Piperacillin Sod/Tazobactam 100 mls @ 100 mls/hr 09/21/20 02:17 09/21/20 02:51 Sod 4.5 gm/ Sodium Chloride IV 09/21/20 03:16 100 mls/hr ONETIME ONE Administration Iopamidol 100 ml 09/21/20 01:54 09/21/20 01:54 Iopamidol 755 Mg/Ml 500 Ml Multipack Bottle IVPUSH 09/21/20 01:55 100 ml ONETIME STA Administration Lorazepam 0.5 mg 09/21/20 02:21 09/21/20 02:51 Lorazepam 2 Mg/Ml Sdv IVPUSH 09/21/20 02:22 0.5 mg ONETIME ONE Administration Metoclopramide HCl 10 mg 09/21/20 00:50 09/21/20 00:59 Metoclopramide 10 Mg/2 Ml Sdv IVPUSH 09/21/20 00:51 10 mg ONETIME ONE Administration Morphine Sulfate 4 mg 09/21/20 00:49 09/21/20 00:59 Morphine 4 Mg/Ml Syringe IVPUSH 09/21/20 00:50 4 mg ONETIME ONE Administration Departure - Departure Time of Disposition: 03:53 Disposition: Admitted As Inpatient 66 Condition: Good Clinical Impression: Pancreatitis, Colitis, Systemic infection - Discharge Information Referrals: Connor Melchor MD [Primary Care Provider] - Forms: ED Department Discharge Sepsis Event Note (ED) - Evaluation Sepsis Screening Result: No Definite Risk - Focused Exam Vital Signs: Vital Signs Temp Pulse Resp BP Pulse Ox 09/21/20 02:45 37.2 C 98 25 H 122/89 94 L 09/21/20 01:10 80 25 H 135/69 95 09/21/20 00:33 36.3 C 96 24 H 134/76 94 L - My Orders Last 24 Hours: My Active Orders 09/21/20 00:46 Sodium Chloride 0.9% [Saline Flush] 10 ml FLUSH ASDIRECTED PRN Sodium Chloride 0.9% [Saline Flush] 2.5 ml FLUSH ASDIRECTED PRN Saline Lock Insert [OM.PC] Stat 09/21/20 01:25 Blood Culture x2 Reflex Set [OM.PC] Stat 09/21/20 01:50 CULTURE BLOOD [BC] Stat 09/21/20 02:00 CULTURE BLOOD [BC] Stat 09/21/20 03:05 CORONAVIRUS COVID-19 [facility] [[facility]] Stat 09/21/20 03:48 Admission Status [Patient Status] [ADT] Stat - Assessment/Plan Last 24 Hours: My Active Orders 09/21/20 00:46 Sodium Chloride 0.9% [Saline Flush] 10 ml FLUSH ASDIRECTED PRN Sodium Chloride 0.9% [Saline Flush] 2.5 ml FLUSH ASDIRECTED PRN Saline Lock Insert [OM.PC] Stat 09/21/20 01:25 Blood Culture x2 Reflex Set [OM.PC] Stat 09/21/20 01:50 CULTURE BLOOD [BC] Stat 09/21/20 02:00 CULTURE BLOOD [BC] Stat 09/21/20 03:05 CORONAVIRUS COVID-19 [facility] [[facility]] Stat 09/21/20 03:48 Admission Status [Patient Status] [ADT] Stat
[2020-09-21 01:06] LABS: CARBON DIOXIDE,CO2 31.9 mmol/L (21.0-32.0); POTASSIUM,K 4.3 mmol/L (3.5-5.1)
[2020-09-21] MEDS ORDERED: Sodium Chloride 0.9% 1,000 ML IV ONE ×2 (01:28)
[2020-09-21] MEDS ORDERED: metroNIDAZOLE/Normal Saline 500 MG in Premix Bag 1 BAG IV ONE (01:31)
[2020-09-21] MEDS ORDERED: metroNIDAZOLE/Normal Saline 100 ML ONE (01:32)
[2020-09-21] MEDS ORDERED: Levofloxacin/Dextrose 5%-Water 0 ML IV ONE (01:32)
[2020-09-21] MEDS ORDERED: Iopamidol 755 MG/ML 500 ML Multipack Bottle IVPUSH STA (01:54)
[2020-09-21] MEDS: Levofloxacin/Dextrose 5%-Water 750 MG in Premix Bag 1 BAG IV ONE ×2 (02:04→02:52)
[2020-09-21] MEDS ORDERED: Piperacillin/Tazobactam 4.5 GM in Sodium Chloride 0.9% 100 ML IV ONE (02:17)
[2020-09-21] MEDS ORDERED: LORazepam 2 MG/ML SDV IVPUSH ONE (02:21)
--- NOTE | 2020-09-21 03:01 | CT ---
Indication: Abdominal pain, left lower quadrant tenderness Technique: Contrast enhanced axial CT imaging through the abdomen and pelvis. 100 mL Isovue 370 contrast agent was administered intravenously. Sagittal and coronal reconstructions are provided. Comparison: CT abdomen pelvis without contrast 07/18/2018 Findings: There is diverticulosis of the sigmoid colon. Mild circumferential colonic wall thickening from the splenic flexure to the proximal sigmoid colon, suggesting nonspecific colitis. There is mild free fluid in the left paracolic gutter. There is no extraluminal air to indicate perforation. There is no pericolonic abscess. The cecum, ascending colon, and proximal transverse colon are unremarkable. The appendix is not inflamed. There is prominence of the proximal jejunal loops with tapering to normal caliber distally and no evidence of obstruction. There is no pneumoperitoneum. The stomach is unremarkable. No significant abnormalities are demonstrated relating to the liver, gallbladder, spleen, adrenal glands, and right kidney. The left kidney is surgically absent. A 1.5 cm cystic lesion is noted in the pancreatic head. Remainder of the pancreas is unremarkable. The pancreatic duct and biliary tree are normal in caliber. The portal vein is patent. IVC filter is noted. There is abdominal aortic atherosclerosis without aneurysm. There is no abdominal or pelvic lymphadenopathy. The urinary bladder is unremarkable. Left hip arthroplasty is noted. There is extensive surrounding heterotopic ossification. Decreased bone marrow density in the visualized proximal femur is similar to prior. There are severe vertebral compression deformities at T12, L1, and L3. The L3 compression deformity is worsened since prior. The included lung bases are clear. Impression: 1. Mild circumferential colonic wall thickening extending from the splenic flexure to the proximal sigmoid colon, favored to represent nonspecific colitis. Diverticulosis is noted in the sigmoid colon. Acute diverticulitis is felt to be is less likely. Small free fluid in the left paracolic gutter is presumably reactive. 2. 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 Surveillance is recommended with MRI. Please note that all CT scans at this facility use dose modulation, iterative reconstruction, and/or weight-based dosing when appropriate to reduce radiation dose to as low as reasonably achievable. Dictated by Brian Grant MD @ 09/21/2020 2:58:[address] Brian Grant @ Sep 21 2020 2:58AM
[2020-09-21] MEDS ORDERED: Ondansetron 4 MG/2 ML SDV IVPUSH PRN (05:15)
[2020-09-21] MEDS ORDERED: Lactated Ringers 1,000 ML IV SCH (05:30)
[2020-09-21 06:15] LABS: BLOOD UREA NITROGEN,BUN 28 mg/dL (7.0-18.0); CARBON DIOXIDE,CO2 32.1 mmol/L (21.0-32.0); CHLORIDE,CL 103 mmol/L (98-107); GLUCOSE RANDOM 94 mg/dL (74-106); POTASSIUM,K 4.1 mmol/L (3.5-5.1); SODIUM,NA 135 mmol/L (136-148)
[2020-09-21] MEDS ORDERED: Enoxaparin 40 MG/0.4 ML Syringe SUBCUT SCH (08:00)
[2020-09-21] MEDS: Pantoprazole 40 MG in Sodium Chloride 0.9% 10 ML IV SCH (08:24)
--- NOTE | 2020-09-21 09:17 | PCM.HP.2 ---
H&P History of Present Illness - General Date of Service: 09/21/20 Admit Problem/Dx: Admission Diagnosis/Problem Admission Diagnosis/Problem Colitis - History of Present Illness Initial Comments - Free Text/Narative: This is a 60-year-old gentleman with a history significant for bronchopulmonary aspergillosis, COPD on chronic steroids, pulmonary hypertension, atrial fibrillation on anticoagulation, CHF, chronic kidney disease, status post left nephrectomy, obstructive sleep apnea who presents with worsening left upper and lower quadrant abdominal pain associated with nausea and vomiting. Patient denied any fever, chills, diarrhea, bloody stools. Patient states that he had his last meal last night when he had some chicken and after that he went to sleep in his usual health and he woke up around 6 AM with some abdominal discomfort and eventually started to throw up. Patient states that his pain started to get worse so he had to come to the ER. In the ER CT scan of the abdomen was done which showed possible colitis extending from splenic flexure to proximal sigmoid colon. Patient was found to be in severe sepsis in the ER, patient received IV fluids per sepsis protocol and blood cultures were obtained, patient received IV Zosyn and was admitted to the hospital for further management. Abdomen Pain Score (Numeric/FACES): 0 - Related Data Allergies/Adverse Reactions: Allergies Allergy/AdvReac Type Severity Reaction Status Date / Time itraconazole [From Sporanox] Allergy Unknown Confusion Verified 09/14/20 20:13 levofloxacin [From Levaquin] Allergy Unknown Other Verified 09/14/20 20:13 meropenem Allergy Swelling Verified 09/14/20 20:13 Home Medications: Home Meds Apixaban [Eliquis] 5 mg PO BID tablet 07/21/18 [Rx] Metoprolol Tartrate [Lopressor] 50 mg PO BID tablet 07/21/18 [Rx] Albuterol [Proventil Neb Soln] 1 ampule NEB Q4HRRT 08/10/20 [History] Calcium Carbonate/Vitamin D3 [Oyster Shell Calcium-Vit D Tab] 1 each PO BID 08/10/20 [History] Fluticasone/Vilanterol [Breo Ellipta 200-25 MCG Inhalation Kit] 1 puff INH DAILY 08/10/20 [History] HYDROmorphone [Dilaudid] 4 mg PO Q4H PRN 08/10/20 [History] Lansoprazole [Prevacid] 30 mg PO DAILY 08/10/20 [History] Testosterone 2 applic TD DAILY 08/10/20 [History] Tiotropium Chromo [Spiriva Respimat] 2 puff INH DAILY 09/14/20 [History] Azithromycin [Zithromax] 500 mg PO Q24H 3 Days #3 tablet 09/16/20 [Rx] Gabapentin [Neurontin] 800 mg PO QID tablet 09/16/20 [Rx] Patient's Own Medication [Ptom] 1 each INH DAILY each 09/16/20 [Rx] Patient's Own Medication [Ptom] 1 each INH DAILY each 09/16/20 [Rx] predniSONE 40 mg PO DAILY 10 Days #10 tab 09/16/20 [Rx] Furosemide [Lasix] 40 mg PO DAILY 09/21/20 [History] Past Medical History HEENT History: Reports: Cataract Other HEENT History: dental fillings due to caries; recent tooth fracture Cardiovascular History: Reports: Afib, Cardiomyopathy, Heart Failure, Hypertension, MS Other Cardiovascular History: Heart attack April 2010, Pulmonary embolism 2009 Respiratory History: Reports: Asthma, Bronchitis, Recurrent, COPD, PE, Pneumonia, Recurrent, Other (See Below) Other Respiratory History: Chronic pulmonary aspergillosis, 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 on 02 at home - 2liters at daytime, 4 liters at bedtimeper nasal cannula Gastrointestinal History: Reports: Diverticulosis, GERD, Other (See Below) Other Gastrointestinal History: diverticulitis, peristalisis diagnosed with egd 2 weeks ago Genitourinary History: Reports: BPH, Renal Calculus, Renal Disease, UTI, Recurrent Other Genitourinary History: Left nephrectomy Musculoskeletal History: Reports: Arthritis, Back Pain, Chronic, Gout, Osteoporosis, RA, Other (See Below) Other Musculoskeletal History: lumbar fracture, rotator cap syndrome, bilateral feet fracture, osteomyelitis; hammer toes, elbow strain. bilateral achilles tendon ruptures and repair., hip replacement, removal of left humerous, reverse right shoulder replacement Neurological History: Reports: Neuropathy, Peripheral, TIA Other Neuro History: TIA 1999 Psychiatric History: Reports: Anxiety, Depression Endocrine/Metabolic History: Reports: Osteoporosis Hematologic History: Reports: Anticoagulation Therapy Immunologic History: Reports: Immunosuppression Oncologic (Cancer) History: Reports: Other (See Below) Other Oncologic History: melanoma of the right eye Dermatologic History: Reports: Cellulitis, Melanoma, Other (See Below) Other Dermatologic History: melanoma in the eye, 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 No explantation--they apparently just treated him with IV abx for months. - Past Surgical History Head Surgeries/Procedures: Reports: None HEENT Surgical History: Reports: Cataract Surgery Cardiovascular Surgical History: Reports: None Respiratory Surgical History: Reports: Lung Resection Other Respiratory Surgeries/Procedures: intubated last Feb 2018 and transfered to [facility] Surgical History: Reports: Colonoscopy Other GI Surgeries/Procedures: colostomy and reversal 20yrs ago Male Surgical History: Reports: None Endocrine Surgical History: Reports: None Neurological Surgical History: Reports: None Musculoskeletal Surgical History: Reports: Amputation, Shoulder Surgery, Other (See Below) Other Musculoskeletal Surgeries/Procedures:: L shoulder and left hip surgery. 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 Second Hand Smoke Exposure: No - Caffeine Use Caffeine Use: Reports: Coffee - Recreational Drug Use Recreational Drug Use: No - Living Situation & Occupation Living situation: Reports: Single, with Family (sons) Occupation: Disabled H&P Review of Systems - Review of Systems: Review Of Systems: See Below General: Reports: Malaise, Weakness, Fatigue. Denies: Fever, Chills Pulmonary: Denies: Shortness of Breath, Wheezing Cardiovascular: Denies: Chest Pain, Palpitations Gastrointestinal: Reports: Abdominal Pain, Anorexia, Decreased Appetite, Nausea, Vomiting. Denies: Black Stool, Bloody Stool, Constipation, Diarrhea, Distension, Hematemesis, Hematochezia, Melena, Mucous in Stool Genitourinary: Denies: Dysuria, Frequency, Burning Musculoskeletal: Denies: Neck Pain, Shoulder Pain Skin: Denies: Cyanosis, Jaundice, Mottled Psychiatric: Denies: Confusion, Depression, Mood Lability Neurological: Denies: Confusion, Dizziness, Headache Hematologic/Lymphatic: Denies: Anemia, Easy Bleeding Exam - Exam Exam: See Below - Vital Signs Vital Signs: Last Vital Signs Temp 36.3 C 09/21/20 08:22 Pulse 85 09/21/20 08:22 Resp 20 09/21/20 08:22 BP 122/64 09/21/20 08:22 Pulse Ox 96 09/21/20 08:22 Weight: 71.441 kg - Exam Quality Assessment: Supplemental Oxygen General: Alert, Oriented Neck: Supple, Trachea Midline Lungs: Clear to Auscultation, Normal Respiratory Effort Cardiovascular: Regular Rate, Regular Rhythm GI/Abdominal Exam: Normal Bowel Sounds, Soft, Tender, Abnormal Bowel Sounds - Patient Data Lab Results Last 24 hrs: Laboratory Results - last 24 hr 09/21/20 09/21/20 09/21/20 Range/Units 00:30 00:45 00:45 WBC 13.05 H (4.0-11.0) K/uL RBC 5.08 (4.50-5.90) M/uL Hgb 11.8 L (13.0-17.0) g/dL Hct 41.0 (38.0-50.0) % MCV 80.7 (80.0-98.0) fL MCH 23.2 L (27.0-32.0) pg MCHC 28.8 L (31.0-37.0) g/dL RDW Std Deviation 53.6 (28.0-62.0) fl RDW Coeff of Tre 19 H (11.0-15.0) % Plt Count 318 (150-400) K/uL MPV 10.20 (7.40-12.00) fL Add Manual Diff YES Neutrophils % (Manual) 74 (48.0-80.0) % Band Neutrophils % 1 % Lymphocytes % (Manual) 21 (16.0-40.0) % Monocytes % (Manual) 4 (0.0-15.0) % Eosinophils % (Manual) (0.0-7.0) % Metamyelocytes % % Nucleated RBC % /100WBC Absolute Seg Neuts 9.7 H (1.4-5.7) Band Neutrophils # 0.1 Lymphocytes # (Manual) 2.7 H (0.6-2.4) Monocytes # (Manual) 0.5 (0.0-0.8) Eosinophils # (Manual) (0.0-0.7) Absolute Metamyelocyte Nucleated RBCs # K/uL Lactate 2.6 H* (0.20-2.00) mmol/L Sodium (136-148) mmol/L Potassium (3.5-5.1) mmol/L Chloride (98-107) mmol/L Carbon Dioxide (21.0-32.0) mmol/L BUN (7.0-18.0) mg/dL Creatinine (0.8-1.3) mg/dL Est Cr Clr Drug Dosing mL/min Estimated GFR (MDRD) ml/min Glucose (74-106) mg/dL Calcium (8.5-10.1) mg/dL Phosphorus (2.6-4.7) mg/dL Magnesium (1.8-2.4) mg/dL Total Bilirubin (0.2-1.0) mg/dL AST (15-37) IU/L ALT (14-63) IU/L Alkaline Phosphatase (46-116) U/L Total Protein (6.4-8.2) g/dL Albumin (3.4-5.0) g/dL Globulin (2.6-4.0) g/dL Albumin/Globulin Ratio (0.9-1.6) Lipase (73-393) U/L Urine Color YELLOW Urine Appearance CLEAR Urine pH 7.5 (5.0-8.0) Ur Specific [place] 1.015 (1.001-1.035) Urine Protein NEGATIVE (NEGATIVE) mg/dL Urine Glucose (UA) NEGATIVE (NEGATIVE) mg/dL Urine Ketones NEGATIVE (NEGATIVE) mg/dL Urine Occult Blood NEGATIVE (NEGATIVE) Urine Nitrite NEGATIVE (NEGATIVE) Urine Bilirubin NEGATIVE (NEGATIVE) Urine Urobilinogen 0.2 (<2.0) EU/dL Ur Leukocyte Esterase NEGATIVE (NEGATIVE) SARS-CoV-2 RNA ([place]) (NEGATIVE) 09/21/20 09/21/20 09/21/20 Range/Units 00:45 03:05 03:30 WBC (4.0-11.0) K/uL RBC (4.50-5.90) M/uL Hgb (13.0-17.0) g/dL Hct (38.0-50.0) % MCV (80.0-98.0) fL MCH (27.0-32.0) pg MCHC (31.0-37.0) g/dL RDW Std Deviation (28.0-62.0) fl RDW Coeff of Tre (11.0-15.0) % Plt Count (150-400) K/uL MPV (7.40-12.00) fL Add Manual Diff Neutrophils % (Manual) (48.0-80.0) % Band Neutrophils % % Lymphocytes % (Manual) (16.0-40.0) % Monocytes % (Manual) (0.0-15.0) % Eosinophils % (Manual) (0.0-7.0) % Metamyelocytes % % Nucleated RBC % /100WBC Absolute Seg Neuts (1.4-5.7) Band Neutrophils # Lymphocytes # (Manual) (0.6-2.4) Monocytes # (Manual) (0.0-0.8) Eosinophils # (Manual) (0.0-0.7) Absolute Metamyelocyte Nucleated RBCs # K/uL Lactate 1.0 (0.20-2.00) mmol/L Sodium 136 (136-148) mmol/L Potassium 4.3 (3.5-5.1) mmol/L Chloride 95 L (98-107) mmol/L Carbon Dioxide 31.9 (21.0-32.0) mmol/L BUN 31 H (7.0-18.0) mg/dL Creatinine 1.3 (0.8-1.3) mg/dL Est Cr Clr Drug Dosing 46.67 mL/min Estimated GFR (MDRD) 56.3 ml/min Glucose 104 (74-106) mg/dL Calcium 7.8 L (8.5-10.1) mg/dL Phosphorus (2.6-4.7) mg/dL Magnesium (1.8-2.4) mg/dL Total Bilirubin 0.5 (0.2-1.0) mg/dL AST 28 (15-37) IU/L ALT 26 (14-63) IU/L Alkaline Phosphatase 50 (46-116) U/L Total Protein 7.9 (6.4-8.2) g/dL Albumin 3.2 L (3.4-5.0) g/dL Globulin 4.7 H (2.6-4.0) g/dL Albumin/Globulin Ratio 0.7 L (0.9-1.6) Lipase 449 H (73-393) U/L Urine Color Urine Appearance Urine pH (5.0-8.0) Ur Specific [place] (1.001-1.035) Urine Protein (NEGATIVE) mg/dL Urine Glucose (UA) (NEGATIVE) mg/dL Urine Ketones (NEGATIVE) mg/dL Urine Occult Blood (NEGATIVE) Urine Nitrite (NEGATIVE) Urine Bilirubin (NEGATIVE) Urine Urobilinogen (<2.0) EU/dL Ur Leukocyte Esterase (NEGATIVE) SARS-CoV-2 RNA ([place]) NEGATIVE (NEGATIVE) 09/21/20 09/21/20 09/21/20 Range/Units 05:50 05:50 05:50 WBC 8.96 (4.0-11.0) K/uL RBC 4.23 L (4.50-5.90) M/uL Hgb 10.0 L (13.0-17.0) g/dL Hct 35.1 L (38.0-50.0) % MCV 83.0 (80.0-98.0) fL MCH 23.6 L (27.0-32.0) pg MCHC 28.5 L (31.0-37.0) g/dL RDW Std Deviation 56.5 (28.0-62.0) fl RDW Coeff of Tre 19 H (11.0-15.0) % Plt Count 219 (150-400) K/uL MPV 9.80 (7.40-12.00) fL Add Manual Diff YES Neutrophils % (Manual) 73 (48.0-80.0) % Band Neutrophils % % Lymphocytes % (Manual) 14 L (16.0-40.0) % Monocytes % (Manual) 10 (0.0-15.0) % Eosinophils % (Manual) 1 (0.0-7.0) % Metamyelocytes % 2 % Nucleated RBC % 0.3 /100WBC Absolute Seg Neuts 6.5 H (1.4-5.7) Band Neutrophils # Lymphocytes # (Manual) 1.3 (0.6-2.4) Monocytes # (Manual) 0.9 H (0.0-0.8) Eosinophils # (Manual) 0.1 (0.0-0.7) Absolute Metamyelocyte 0.2 Nucleated RBCs # 0 K/uL Lactate (0.20-2.00) mmol/L Sodium 135 L (136-148) mmol/L Potassium 4.1 (3.5-5.1) mmol/L Chloride 103 (98-107) mmol/L Carbon Dioxide 32.1 H (21.0-32.0) mmol/L BUN 28 H (7.0-18.0) mg/dL Creatinine 1.2 (0.8-1.3) mg/dL Est Cr Clr Drug Dosing 54.81 mL/min Estimated GFR (MDRD) > 60.0 ml/min Glucose 94 (74-106) mg/dL Calcium 6.9 L (8.5-10.1) mg/dL Phosphorus 3.4 (2.6-4.7) mg/dL Magnesium 1.9 (1.8-2.4) mg/dL Total Bilirubin (0.2-1.0) mg/dL AST (15-37) IU/L ALT (14-63) IU/L Alkaline Phosphatase (46-116) U/L Total Protein (6.4-8.2) g/dL Albumin (3.4-5.0) g/dL Globulin (2.6-4.0) g/dL Albumin/Globulin Ratio (0.9-1.6) Lipase (73-393) U/L Urine Color Urine Appearance Urine pH (5.0-8.0) Ur Specific [place] (1.001-1.035) Urine Protein (NEGATIVE) mg/dL Urine Glucose (UA) (NEGATIVE) mg/dL Urine Ketones (NEGATIVE) mg/dL Urine Occult Blood (NEGATIVE) Urine Nitrite (NEGATIVE) Urine Bilirubin (NEGATIVE) Urine Urobilinogen (<2.0) EU/dL Ur Leukocyte Esterase (NEGATIVE) SARS-CoV-2 RNA ([place]) (NEGATIVE) Result Diagrams: 09/21/20 05:50 09/21/20 05:50 Sepsis Event Note - Evaluation Sepsis Screening Result: No Definite Risk - Focused Exam Vital Signs: Vital Signs Temp Pulse Resp BP Pulse Ox Pulse Ox 09/21/20 08:22 36.3 C 85 20 122/64 96 09/21/20 05:00 93 L 09/21/20 04:59 36.3 C 83 19 122/64 93 L 09/21/20 04:05 36.6 C 89 24 H 117/58 L 98 09/21/20 02:45 37.2 C 98 25 H 122/89 94 L 09/21/20 01:10 80 25 H 135/69 95 09/21/20 00:33 36.3 C 96 24 H 134/76 94 L - Problem List (1) Severe sepsis SNOMED Code(s): 17149222 ICD Code: A41.9 - SEPSIS, UNSPECIFIED ORGANISM; R65.20 - SEVERE SEPSIS WITHOUT SEPTIC SHOCK Status: Acute Current Visit: Yes (2) Colitis SNOMED Code(s): 17753711 ICD Code: K52.9 - NONINFECTIVE GASTROENTERITIS AND COLITIS, UNSPECIFIED Status: Acute Current Visit: Yes Problem List Initiated/Reviewed/Updated: Yes Orders Last 24hrs: Active Orders 24 hr Category Date Time Status Admission Status [Patient Status] [ADT] Stat ADT 09/21/20 03:48 Active Activity as Tolerated [RC] .Routine Care 09/21/20 05:01 Active Oxygen Therapy [RC] ASDIRECTED Care 09/21/20 04:59 Active RT Aerosol Therapy [RC] ASDIRECTED Care 09/21/20 05:25 Active Telemetry Monitoring [Cardiac Monitoring] [RC] . Care 09/21/20 05:00 Active DIRECTED Vital Signs [RC] Q4H Care 09/21/20 04:59 Active NPO Now [Nothing per Oral Now Diet] [DIET] Diet 09/21/20 Breakfast Active C DIFFICILE AG/TOXIN W/REFLEX [RM] Routine Lab 09/21/20 05:25 Ordered CULTURE BLOOD [BC] Stat Lab 09/21/20 01:50 Received CULTURE BLOOD [BC] Stat Lab 09/21/20 02:00 Received Albuterol [Proventil Neb Soln] Med 09/21/20 05:23 Active 2.5 mg NEB Q4HRRT PRN Enoxaparin [Lovenox] Med 09/21/20 08:00 Active 40 mg SUBCUT Q24H Lactated Ringers [Ringers, Lactated] 1,000 ml Med 09/21/20 05:30 Active IV ASDIRECTED Morphine Med 09/21/20 05:15 Active 1 mg IVPUSH Q4H PRN Ondansetron [Zofran] Med 09/21/20 05:15 Active 4 mg IVPUSH Q4H PRN Pantoprazole [ProTONIX IV] 40 mg Med 09/21/20 09:00 Active Sodium Chloride 0.9% [Normal Saline] 10 ml IV Q24H Piperacillin/Tazobactam [Piperacil-Tazobact] 3.375 gm Med 09/21/20 11:00 Active Sodium Chloride 0.9% [Normal Saline] 50 ml IV Q8H Sodium Chloride 0.9% [Saline Flush] Med 09/21/20 00:46 Active 10 ml FLUSH ASDIRECTED PRN Sodium Chloride 0.9% [Saline Flush] Med 09/21/20 00:46 Active 2.5 ml FLUSH ASDIRECTED PRN Blood Culture x2 Reflex Set [OM.PC] Stat Ot 09/21/20 01:25 Ordered Saline Lock Insert [OM.PC] Stat Ot 09/21/20 00:46 Ordered Medication Orders Albuterol (Albuterol 0.083% 2.5 Mg/3 Ml Neb Soln) 2.5 mg NEB Q4HRRT PRN PRN Reason: Shortness of Breath Enoxaparin Sodium (Enoxaparin 40 Mg/0.4 Ml Syringe) 40 mg SUBCUT Q24H [facility] Last Admin: 09/21/20 08:24 Dose: 40 mg Documented by: SEMICHR Pantoprazole Sodium 40 mg/ (Sodium Chloride) 10 mls @ 300 mls/hr IV Q24H [facility] Last Admin: 09/21/20 08:24 Dose: 300 mls/hr Documented by: SEMICHR Piperacillin Sod/Tazobactam (Sod 3.375 gm/ Sodium Chloride) 50 mls @ 100 mls/hr IV Q8H [facility] Lactated Ringer's (Ringers, Lactated) 1,000 mls @ 125 mls/hr IV ASDIRECTED [facility] Last Admin: 09/21/20 07:03 Dose: 125 mls/hr Documented by: ALBIMAR Morphine Sulfate (Morphine 2 Mg/Ml Syringe) 1 mg IVPUSH Q4H PRN PRN Reason: Pain Ondansetron HCl (Ondansetron 4 Mg/2 Ml Sdv) 4 mg IVPUSH Q4H PRN PRN Reason: Nausea Sodium Chloride (Sodium Chloride 0.9% 10 Ml Syringe) 10 ml FLUSH ASDIRECTED PRN PRN Reason: Keep Vein Open Sodium Chloride (Sodium Chloride 0.9% 2.5 Ml Syringe) 2.5 ml FLUSH ASDIRECTED PRN PRN Reason: Keep Vein Open Assessment/Plan Comment:: 60-year-old male admitted secondary to severe sepsis due to possible ongoing colitis Repeat lactate has resolved Blood cultures are pending Continue IV Zosyn for broad-spectrum coverage Patient has been n.p.o. overnight, will advance diet to clear liquids to see how patient tolerates Continue IV fluids for now Continue morphine for pain control although patient has not received any dose yet IV PPI daily IV Zofran as needed Lovenox for DVT prophylaxis DuoNebs as needed for shortness of breath Continue oxygenation via nasal cannula 2 L which is patient's baseline at home
[2020-09-21] MEDS: Albuterol 0.083% 2.5 MG/3 ML Neb Soln NEB PRN ×2 (09:45→18:23)
[2020-09-21] MEDS: Piperacillin/Tazobactam 3.375 GM in Sodium Chloride 0.9% 50 ML IV SCH ×2 (10:10→18:14)
[2020-09-21] MEDS: Morphine 2 MG/ML SYRINGE IVPUSH PRN ×3 (17:30→23:15)
[2020-09-21] MEDS: Metoprolol Tartrate 50 MG Tab PO SCH ×2 (19:30→21:00)
[2020-09-21] MEDS ORDERED: Lactated Ringers 500 ML IV ONE (19:38)
[2020-09-22] MEDS ORDERED: LORazepam 2 MG/ML SDV IVPUSH ONE ×2 (00:11→18:24)
[2020-09-22] MEDS: Gabapentin 800 MG Tab PO SCH ×5 (01:05→23:00)
[2020-09-22] MEDS: Piperacillin/Tazobactam 3.375 GM in Sodium Chloride 0.9% 50 ML IV SCH ×3 (03:00→18:08)
[2020-09-22 06:32] LABS: BLOOD UREA NITROGEN,BUN 16 mg/dL (7.0-18.0); CARBON DIOXIDE,CO2 31.4 mmol/L (21.0-32.0); CHLORIDE,CL 105 mmol/L (98-107); GLUCOSE RANDOM 75 mg/dL (74-106); POTASSIUM,K 4.1 mmol/L (3.5-5.1); SODIUM,NA 142 mmol/L (136-148)
[2020-09-22] MEDS: Morphine 2 MG/ML SYRINGE IVPUSH PRN (08:43)
[2020-09-22] MEDS: Pantoprazole 40 MG in Sodium Chloride 0.9% 10 ML IV SCH (08:43)
[2020-09-22] MEDS: Metoprolol Tartrate 50 MG Tab PO SCH ×2 (08:43→20:34)
[2020-09-22] MEDS: Apixaban 5 MG Tab PO SCH ×2 (08:43→20:34)
[2020-09-22] MEDS ORDERED: predniSONE 20 MG Tab PO SCH (09:00)
[2020-09-22] MEDS ORDERED: TIOTROPIUM BROMIDE 4 GM INH SCH (09:00)
--- NOTE | 2020-09-22 11:16 | PCM.PN ---
<Kaz Fleming - Last Filed: 09/22/20 13:56> - General Info Date of Service: 09/22/20 Subjective Update: Bedside: denies any new pain. Mentions feeling a little bit anxious this AM. Denies any fevers, chills BA. - Review of Systems General: Reports: No Symptoms Pulmonary: Reports: Cough, Wheezing Cardiovascular: Reports: No Symptoms Gastrointestinal: Reports: Flatus. Denies: Abdominal Pain, Decreased Appetite, Diarrhea, Nausea, Vomiting Psychiatric: Reports: Anxiety - Patient Data Vitals - Most Recent: Last Vital Signs Temp 99.2 F 09/22/20 07:25 Pulse 98 09/22/20 08:43 Resp 16 09/22/20 07:25 BP 128/84 09/22/20 08:43 Pulse Ox 95 09/22/20 07:25 Weight - Most Recent: 72.393 kg I&O - Last 24 Hours: Intake & Output 09/21/20 09/22/20 09/22/20 22:59 06:59 14:59 Intake Total 1700 640 Output Total 600 400 Balance 1100 240 Lab Results Last 24 Hours: Laboratory Results - last 24 hr 09/22/20 09/22/20 Range/Units 05:35 05:35 WBC 6.11 (4.0-11.0) K/uL RBC 3.95 L (4.50-5.90) M/uL Hgb 9.2 L (13.0-17.0) g/dL Hct 33.0 L (38.0-50.0) % MCV 83.5 (80.0-98.0) fL MCH 23.3 L (27.0-32.0) pg MCHC 27.9 L (31.0-37.0) g/dL RDW Std Deviation 58.2 (28.0-62.0) fl RDW Coeff of Tre 19 H (11.0-15.0) % Plt Count 200 (150-400) K/uL MPV 9.70 (7.40-12.00) fL Add Manual Diff YES Neutrophils % (Manual) 63 (48.0-80.0) % Band Neutrophils % 3 % Lymphocytes % (Manual) 20 (16.0-40.0) % Monocytes % (Manual) 9 (0.0-15.0) % Eosinophils % (Manual) 3 (0.0-7.0) % Metamyelocytes % 2 % Nucleated RBC % 0.0 /100WBC Absolute Seg Neuts 3.8 (1.4-5.7) Band Neutrophils # 0.2 Lymphocytes # (Manual) 1.2 (0.6-2.4) Monocytes # (Manual) 0.5 (0.0-0.8) Eosinophils # (Manual) 0.2 (0.0-0.7) Absolute Metamyelocyte 0.1 Nucleated RBCs # 0 K/uL Sodium 142 (136-148) mmol/L Potassium 4.1 (3.5-5.1) mmol/L Chloride 105 (98-107) mmol/L Carbon Dioxide 31.4 (21.0-32.0) mmol/L BUN 16 (7.0-18.0) mg/dL Creatinine 1.2 (0.8-1.3) mg/dL Est Cr Clr Drug Dosing 50.56 mL/min Estimated GFR (MDRD) > 60.0 ml/min Glucose 75 (74-106) mg/dL Calcium 6.9 L (8.5-10.1) mg/dL Phosphorus 2.3 L (2.6-4.7) mg/dL Magnesium 1.8 (1.8-2.4) mg/dL Steve Results Last 24 Hours: Microbiology 09/22/20 05:00 C. difficile Antigen & Toxins A,B - Final Stool / Feces 09/21/20 02:00 Aerobic Blood Culture - Preliminary Blood - Venous - Lab Draw NO GROWTH AFTER 1 DAY Anaerobic Blood Culture - Preliminary NO GROWTH AFTER 1 DAY 09/21/20 01:50 Aerobic Blood Culture - Preliminary Blood - Venous NO GROWTH AFTER 1 DAY Anaerobic Blood Culture - Preliminary NO GROWTH AFTER 1 DAY Med Orders - Current: Current Medications Albuterol (Albuterol 0.083% 2.5 Mg/3 Ml Neb Soln) 2.5 mg NEB Q4HRRT PRN PRN Reason: Shortness of Breath Last Admin: 09/21/20 18:23 Dose: 2.5 mg Documented by: Apixaban (Apixaban 5 Mg Tab) 5 mg PO BID [facility] Last Admin: 09/22/20 08:43 Dose: 5 mg Documented by: Gabapentin (Gabapentin 800 Mg Tab) 800 mg PO QID [facility] Last Admin: 09/22/20 06:31 Dose: Not Given Documented by: Pantoprazole Sodium 40 mg/ (Sodium Chloride) 10 mls @ 300 mls/hr IV Q24H [facility] Last Admin: 09/22/20 08:43 Dose: 300 mls/hr Documented by: Piperacillin Sod/Tazobactam (Sod 3.375 gm/ Sodium Chloride) 50 mls @ 100 mls/hr IV Q8H [facility] Last Admin: 09/22/20 03:00 Dose: 100 mls/hr Documented by: Metoprolol Tartrate (Metoprolol Tartrate 50 Mg Tab) 50 mg PO BID [facility] Last Admin: 09/22/20 08:43 Dose: 50 mg Documented by: Morphine Sulfate (Morphine 2 Mg/Ml Syringe) 1 mg IVPUSH Q4H PRN PRN Reason: Pain Last Admin: 09/22/20 08:43 Dose: 1 mg Documented by: Ondansetron HCl (Ondansetron 4 Mg/2 Ml Sdv) 4 mg IVPUSH Q4H PRN PRN Reason: Nausea Tiotropium [place] [ Spiriva Respimat] 4gm 2 each INH DAILY [facility] Last Admin: 09/22/20 09:26 Dose: Not Given Documented by: Prednisone (Prednisone 20 Mg Tab) 40 mg PO DAILY [facility] Last Admin: 09/22/20 08:50 Dose: 40 mg Documented by: Sodium Chloride (Sodium Chloride 0.9% 10 Ml Syringe) 10 ml FLUSH ASDIRECTED PRN PRN Reason: Keep Vein Open Sodium Chloride (Sodium Chloride 0.9% 2.5 Ml Syringe) 2.5 ml FLUSH ASDIRECTED PRN PRN Reason: Keep Vein Open Sodium Phosphate (Phosphorus #1 250 Mg Tab) 250 mg PO QID [facility] Discontinued Medications Enoxaparin Sodium (Enoxaparin 40 Mg/0.4 Ml Syringe) 40 mg SUBCUT Q24H [facility] Last Admin: 09/21/20 08:24 Dose: 40 mg Documented by: Pantoprazole Sodium 40 mg/ (Sodium Chloride) 10 mls @ 300 mls/hr IV NOW ONE Stop: 09/21/20 00:47 Last Admin: 09/21/20 00:55 Dose: 300 mls/hr Documented by: Sodium Chloride (Normal Saline) 1,000 mls @ 999 mls/hr IV .Bolus ONE Stop: 09/21/20 02:28 Last Admin: 09/21/20 02:03 Dose: 999 mls/hr Documented by: Sodium Chloride (Normal Saline) 1,000 mls @ 650 mls/hr IV .Bolus ONE Stop: 09/21/20 03:00 Last Admin: 09/21/20 02:51 Dose: 650 mls/hr Documented by: Levofloxacin/Dextrose 750 mg/ (Premix) 150 mls @ 100 mls/hr IV ONETIME ONE Stop: 09/21/20 02:58 Last Admin: 09/21/20 02:52 Dose: Not Given Documented by: Metronidazole 500 mg/ Premix 100 mls @ 100 mls/hr IV ONETIME ONE Stop: 09/21/20 02:30 Last Admin: 09/21/20 02:03 Dose: 100 mls/hr Documented by: Levofloxacin/Dextrose (Levaquin In D5w 750 Mg/150 Ml) Confirm Administered Dose 150 mls @ as directed IV .STK-MED ONE Stop: 09/21/20 01:33 Last Admin: 09/21/20 01:44 Dose: Not Given Documented by: Metronidazole (Flagyl In Ns 500 Mg/100 Ml) Confirm Administered Dose 100 mls @ as directed .ROUTE .STK-MED ONE Stop: 09/21/20 01:33 Last Admin: 09/21/20 01:43 Dose: Not Given Documented by: Piperacillin Sod/Tazobactam (Sod 4.5 gm/ Sodium Chloride) 100 mls @ 100 mls/hr IV ONETIME ONE Stop: 09/21/20 03:16 Last Admin: 09/21/20 02:51 Dose: 100 mls/hr Documented by: Lactated Ringer's (Ringers, Lactated) 1,000 mls @ 125 mls/hr IV ASDIRECTED [facility] Last Admin: 09/21/20 07:03 Dose: 125 mls/hr Documented by: Lactated Ringer's (Ringers, Lactated) 500 mls @ 500 mls/hr IV ONETIME ONE Stop: 09/21/20 20:37 Last Admin: 09/21/20 20:20 Dose: 500 mls/hr Documented by: Iopamidol (Iopamidol 755 Mg/Ml 500 Ml Multipack Bottle) 100 ml IVPUSH ONETIME STA Stop: 09/21/20 01:55 Last Admin: 09/21/20 01:54 Dose: 100 ml Documented by: Lorazepam (Lorazepam 2 Mg/Ml Sdv) 0.5 mg IVPUSH ONETIME ONE Stop: 09/21/20 02:22 Last Admin: 09/21/20 02:51 Dose: 0.5 mg Documented by: Lorazepam (Lorazepam 2 Mg/Ml Sdv) 1 mg IVPUSH ONETIME ONE Stop: 09/22/20 00:12 Last Admin: 09/22/20 00:57 Dose: 1 mg Documented by: Metoclopramide HCl (Metoclopramide 10 Mg/2 Ml Sdv) 10 mg IVPUSH ONETIME ONE Stop: 09/21/20 00:51 Last Admin: 09/21/20 00:59 Dose: 10 mg Documented by: Morphine Sulfate (Morphine 4 Mg/Ml Syringe) 4 mg IVPUSH ONETIME ONE Stop: 09/21/20 00:50 Last Admin: 09/21/20 00:59 Dose: 4 mg Documented by: - Exam General: Alert, Oriented, Cooperative HEENT: EOMI Lungs: Clear to Auscultation, Normal Respiratory Effort Cardiovascular: Regular Rate, Irregular Rhythm GI/Abdominal Exam: Soft, Other (minimal abdominal tenderness ) Back Exam: Normal Inspection Extremities: No Pedal Edema Neurological: No New Focal Deficit Psy/Mental Status: Alert, Normal Affect - Patient Data Lab Results Last 24 hrs: Laboratory Results - last 24 hr 09/22/20 09/22/20 Range/Units 05:35 05:35 WBC 6.11 (4.0-11.0) K/uL RBC 3.95 L (4.50-5.90) M/uL Hgb 9.2 L (13.0-17.0) g/dL Hct 33.0 L (38.0-50.0) % MCV 83.5 (80.0-98.0) fL MCH 23.3 L (27.0-32.0) pg MCHC 27.9 L (31.0-37.0) g/dL RDW Std Deviation 58.2 (28.0-62.0) fl RDW Coeff of Tre 19 H (11.0-15.0) % Plt Count 200 (150-400) K/uL MPV 9.70 (7.40-12.00) fL Add Manual Diff YES Neutrophils % (Manual) 63 (48.0-80.0) % Band Neutrophils % 3 % Lymphocytes % (Manual) 20 (16.0-40.0) % Monocytes % (Manual) 9 (0.0-15.0) % Eosinophils % (Manual) 3 (0.0-7.0) % Metamyelocytes % 2 % Nucleated RBC % 0.0 /100WBC Absolute Seg Neuts 3.8 (1.4-5.7) Band Neutrophils # 0.2 Lymphocytes # (Manual) 1.2 (0.6-2.4) Monocytes # (Manual) 0.5 (0.0-0.8) Eosinophils # (Manual) 0.2 (0.0-0.7) Absolute Metamyelocyte 0.1 Nucleated RBCs # 0 K/uL Sodium 142 (136-148) mmol/L Potassium 4.1 (3.5-5.1) mmol/L Chloride 105 (98-107) mmol/L Carbon Dioxide 31.4 (21.0-32.0) mmol/L BUN 16 (7.0-18.0) mg/dL Creatinine 1.2 (0.8-1.3) mg/dL Est Cr Clr Drug Dosing 50.56 mL/min Estimated GFR (MDRD) > 60.0 ml/min Glucose 75 (74-106) mg/dL Calcium 6.9 L (8.5-10.1) mg/dL Phosphorus 2.3 L (2.6-4.7) mg/dL Magnesium 1.8 (1.8-2.4) mg/dL Result Diagrams: 09/22/20 05:35 09/22/20 05:35 Steve Results Last 24 hrs: Microbiology 09/22/20 05:00 C. difficile Antigen & Toxins A,B - Final Stool / Feces 09/21/20 02:00 Aerobic Blood Culture - Preliminary Blood - Venous - Lab Draw NO GROWTH AFTER 1 DAY Anaerobic Blood Culture - Preliminary NO GROWTH AFTER 1 DAY 09/21/20 01:50 Aerobic Blood Culture - Preliminary Blood - Venous NO GROWTH AFTER 1 DAY Anaerobic Blood Culture - Preliminary NO GROWTH AFTER 1 DAY Sepsis Event Note - Evaluation Sepsis Screening Result: No Definite Risk - Focused Exam Vital Signs: Vital Signs Temp Pulse Pulse Resp BP BP Pulse Ox 09/22/20 08:43 98 128/84 09/22/20 07:25 99.2 F 98 16 128/84 95 09/22/20 04:00 97.8 F 90 20 139/76 100 09/22/20 00:00 98.0 F 91 18 127/64 95 - Problem List & Annotations (1) Colitis SNOMED Code(s): 57665435 Code(s): K52.9 - NONINFECTIVE GASTROENTERITIS AND COLITIS, UNSPECIFIED Status: Acute Current Visit: Yes (2) History of aspergillosis SNOMED Code(s): 197033473 Code(s): Z86.19 - PERSONAL HISTORY OF OTHER INFECTIOUS AND PARASITIC DISEASES Status: Chronic Priority: High Current Visit: No - Problem List Review Problem List Initiated/Reviewed/Updated: Yes - My Orders Last 24 Hours: My Active Orders 09/22/20 08:30 Daily Weight [Height and Weight] [RC] DAILY Intake and Output Strict [RC] Q12H 09/22/20 09:00 Patient's Own Medication [Ptom] 2 each INH DAILY predniSONE 40 mg PO DAILY 09/22/20 12:00 Phosphorus #1 [Neutra-Phos] 250 mg PO QID - Plan Plan:: 60-year-old male admitted secondary to severe sepsis due to possible ongoing colitis Blood cultures are pending Continue IV Zosyn for broad-spectrum coverage Patient has been n.p.o. overnight, will advance diet to soft this AM and monitor/ Normocytic Anemia: Concerns about darkened stools this AM; pt mentions being on pepto-bismol while at home for some time prior to admission; will order a st ool/diagnostic and recheck an H&H this PM ; VSS otherwise Continue IV fluids for now Discontinue morphine; resume Dilaudid at a lower dose: pt. was advised that chronic opioids can worsen abdominal issues/constipation; will trial lower dose for now. Hx of B.aspergillus/COPD: IV methylprednisolone Daily (still on 40 mg BID prednisone taper ; switched to IV while admitted) IV PPI daily IV Zofran as needed Lovenox for DVT prophylaxis DuoNebs as needed for shortness of breath Continue oxygenation via nasal cannula 2 L which is patient's baseline at home <Pavan Arias - Last Filed: 09/22/20 20:49> - Patient Data Vitals - Most Recent: Last Vital Signs Temp 36.6 C 09/22/20 19:35 Pulse 98 09/22/20 20:34 Resp 16 09/22/20 19:35 BP 137/82 09/22/20 20:34 Pulse Ox 96 09/22/20 19:35 I&O - Last 24 Hours: Intake & Output 09/22/20 09/22/20 09/22/20 06:59 14:59 22:59 Intake Total 640 520 Output Total 400 650 Balance 240 -130 Lab Results Last 24 Hours: Laboratory Results - last 24 hr 09/22/20 09/22/20 09/22/20 Range/Units 05:35 05:35 16:01 WBC 6.11 (4.0-11.0) K/uL RBC 3.95 L (4.50-5.90) M/uL Hgb 9.2 L 10.4 L (13.0-17.0) g/dL Hct 33.0 L 38.1 (38.0-50.0) % MCV 83.5 (80.0-98.0) fL MCH 23.3 L (27.0-32.0) pg MCHC 27.9 L (31.0-37.0) g/dL RDW Std Deviation 58.2 (28.0-62.0) fl RDW Coeff of Tre 19 H (11.0-15.0) % Plt Count 200 (150-400) K/uL MPV 9.70 (7.40-12.00) fL Add Manual Diff YES Neutrophils % (Manual) 63 (48.0-80.0) % Band Neutrophils % 3 % Lymphocytes % (Manual) 20 (16.0-40.0) % Monocytes % (Manual) 9 (0.0-15.0) % Eosinophils % (Manual) 3 (0.0-7.0) % Metamyelocytes % 2 % Nucleated RBC % 0.0 /100WBC Absolute Seg Neuts 3.8 (1.4-5.7) Band Neutrophils # 0.2 Lymphocytes # (Manual) 1.2 (0.6-2.4) Monocytes # (Manual) 0.5 (0.0-0.8) Eosinophils # (Manual) 0.2 (0.0-0.7) Absolute Metamyelocyte 0.1 Nucleated RBCs # 0 K/uL Sodium 142 (136-148) mmol/L Potassium 4.1 (3.5-5.1) mmol/L Chloride 105 (98-107) mmol/L Carbon Dioxide 31.4 (21.0-32.0) mmol/L BUN 16 (7.0-18.0) mg/dL Creatinine 1.2 (0.8-1.3) mg/dL Est Cr Clr Drug Dosing 50.56 mL/min Estimated GFR (MDRD) > 60.0 ml/min Glucose 75 (74-106) mg/dL Calcium 6.9 L (8.5-10.1) mg/dL Phosphorus 2.3 L (2.6-4.7) mg/dL Magnesium 1.8 (1.8-2.4) mg/dL Steve Results Last 24 Hours: Microbiology 09/22/20 16:12 Stool Occult Blood (STEVE) - Final Stool / Feces 09/22/20 05:00 C. difficile Antigen & Toxins A,B - Final Stool / Feces 09/21/20 02:00 Aerobic Blood Culture - Preliminary Blood - Venous - Lab Draw NO GROWTH AFTER 1 DAY Anaerobic Blood Culture - Preliminary NO GROWTH AFTER 1 DAY 09/21/20 01:50 Aerobic Blood Culture - Preliminary Blood - Venous NO GROWTH AFTER 1 DAY Anaerobic Blood Culture - Preliminary NO GROWTH AFTER 1 DAY Med Orders - Current: Current Medications Albuterol (Albuterol 0.083% 2.5 Mg/3 Ml Neb Soln) 2.5 mg NEB Q4HRRT PRN PRN Reason: Shortness of Breath Last Admin: 09/22/20 12:09 Dose: 2.5 mg Documented by: Albuterol/Ipratropium (Albuterol/Ipratropium 4 Gm Inhalation Hasty) 0 gm INH Q4HRRT [facility] Last Admin: 09/22/20 17:52 Dose: 1 inhalation Documented by: Apixaban (Apixaban 5 Mg Tab) 5 mg PO BID [facility] Last Admin: 09/22/20 20:34 Dose: 5 mg Documented by: Gabapentin (Gabapentin 800 Mg Tab) 800 mg PO QID [facility] Last Admin: 09/22/20 18:08 Dose: 800 mg Documented by: Hydromorphone HCl (Hydromorphone 1 Mg/Ml Syringe) 1 mg IVPUSH Q4H PRN PRN Reason: Pain Last Admin: 09/22/20 16:19 Dose: 1 mg Documented by: Pantoprazole Sodium 40 mg/ (Sodium Chloride) 10 mls @ 300 mls/hr IV Q24H [facility] Last Admin: 09/22/20 08:43 Dose: 300 mls/hr Documented by: Piperacillin Sod/Tazobactam (Sod 3.375 gm/ Sodium Chloride) 50 mls @ 100 mls/hr IV Q8H [facility] Last Admin: 09/22/20 18:08 Dose: 100 mls/hr Documented by: Lorazepam (Lorazepam 2 Mg/Ml Sdv) 0.5 mg IVPUSH Q8H PRN PRN Reason: Anxiety Last Admin: 09/22/20 12:55 Dose: 0.5 mg Documented by: Methylprednisolone Sodium Succinate (Methylprednisolone Sodium Succinate 40 Mg/1 Ml Sdv) 40 mg IVPUSH DAILY [facility] Last Admin: 09/22/20 12:14 Dose: 40 mg Documented by: Metoprolol Tartrate (Metoprolol Tartrate 50 Mg Tab) 50 mg PO BID [facility] Last Admin: 09/22/20 20:34 Dose: 50 mg Documented by: Ondansetron HCl (Ondansetron 4 Mg/2 Ml Sdv) 4 mg IVPUSH Q4H PRN PRN Reason: Nausea Sodium Chloride (Sodium Chloride 0.9% 10 Ml Syringe) 10 ml FLUSH ASDIRECTED PRN PRN Reason: Keep Vein Open Sodium Chloride (Sodium Chloride 0.9% 2.5 Ml Syringe) 2.5 ml FLUSH ASDIRECTED PRN PRN Reason: Keep Vein Open Sodium Phosphate (Phosphorus #1 250 Mg Tab) 250 mg PO QID [facility] Last Admin: 09/22/20 18:08 Dose: 250 mg Documented by: Tiotropium [place] (Tiotropium [place] [Spiriva Respimat] 4gm) 18 mcg INH DAILY [facility] Last Admin: 09/22/20 12:09 Dose: 1 cap Documented by: Vancomycin HCl (Vancomycin 125 Mg Cap) 125 mg PO QID [facility] Discontinued Medications Albuterol/Ipratropium (Albuterol/Ipratropium 4 Gm Inhalation Hasty) 0 gm INH Q4H PRN PRN Reason: Dyspnea Albuterol/Ipratropium (Albuterol/Ipratropium 4 Gm Inhalation Hasty) 0 gm INH Q4H [facility] Last Admin: 09/22/20 13:30 Dose: Not Given Documented by: Enoxaparin Sodium (Enoxaparin 40 Mg/0.4 Ml Syringe) 40 mg SUBCUT Q24H [facility] Last Admin: 09/21/20 08:24 Dose: 40 mg Documented by: Pantoprazole Sodium 40 mg/ (Sodium Chloride) 10 mls @ 300 mls/hr IV NOW ONE Stop: 09/21/20 00:47 Last Admin: 09/21/20 00:55 Dose: 300 mls/hr Documented by: Sodium Chloride (Normal Saline) 1,000 mls @ 999 mls/hr IV .Bolus ONE Stop: 09/21/20 02:28 Last Admin: 09/21/20 02:03 Dose: 999 mls/hr Documented by: Sodium Chloride (Normal Saline) 1,000 mls @ 650 mls/hr IV .Bolus ONE Stop: 09/21/20 03:00 Last Admin: 09/21/20 02:51 Dose: 650 mls/hr Documented by: Levofloxacin/Dextrose 750 mg/ (Premix) 150 mls @ 100 mls/hr IV ONETIME ONE Stop: 09/21/20 02:58 Last Admin: 09/21/20 02:52 Dose: Not Given Documented by: Metronidazole 500 mg/ Premix 100 mls @ 100 mls/hr IV ONETIME ONE Stop: 09/21/20 02:30 Last Admin: 09/21/20 02:03 Dose: 100 mls/hr Documented by: Levofloxacin/Dextrose (Levaquin In D5w 750 Mg/150 Ml) Confirm Administered Dose 150 mls @ as directed IV .STK-MED ONE Stop: 09/21/20 01:33 Last Admin: 09/21/20 01:44 Dose: Not Given Documented by: Metronidazole (Flagyl In Ns 500 Mg/100 Ml) Confirm Administered Dose 100 mls @ as directed .ROUTE .STK-MED ONE Stop: 09/21/20 01:33 Last Admin: 09/21/20 01:43 Dose: Not Given Documented by: Piperacillin Sod/Tazobactam (Sod 4.5 gm/ Sodium Chloride) 100 mls @ 100 mls/hr IV ONETIME ONE Stop: 09/21/20 03:16 Last Admin: 09/21/20 02:51 Dose: 100 mls/hr Documented by: Lactated Ringer's (Ringers, Lactated) 1,000 mls @ 125 mls/hr IV ASDIRECTED [facility] Last Admin: 09/21/20 07:03 Dose: 125 mls/hr Documented by: Lactated Ringer's (Ringers, Lactated) 500 mls @ 500 mls/hr IV ONETIME ONE Stop: 09/21/20 20:37 Last Admin: 09/21/20 20:20 Dose: 500 mls/hr Documented by: Iopamidol (Iopamidol 755 Mg/Ml 500 Ml Multipack Bottle) 100 ml IVPUSH ONETIME STA Stop: 09/21/20 01:55 Last Admin: 09/21/20 01:54 Dose: 100 ml Documented by: Lorazepam (Lorazepam 2 Mg/Ml Sdv) 0.5 mg IVPUSH ONETIME ONE Stop: 09/21/20 02:22 Last Admin: 09/21/20 02:51 Dose: 0.5 mg Documented by: Lorazepam (Lorazepam 2 Mg/Ml Sdv) 1 mg IVPUSH ONETIME ONE Stop: 09/22/20 00:12 Last Admin: 09/22/20 00:57 Dose: 1 mg Documented by: Lorazepam (Lorazepam 2 Mg/Ml Sdv) 0.5 mg IVPUSH ONETIME ONE Stop: 09/22/20 18:25 Last Admin: 09/22/20 18:56 Dose: 0.5 mg Documented by: Metoclopramide HCl (Metoclopramide 10 Mg/2 Ml Sdv) 10 mg IVPUSH ONETIME ONE Stop: 09/21/20 00:51 Last Admin: 09/21/20 00:59 Dose: 10 mg Documented by: Morphine Sulfate (Morphine 4 Mg/Ml Syringe) 4 mg IVPUSH ONETIME ONE Stop: 09/21/20 00:50 Last Admin: 09/21/20 00:59 Dose: 4 mg Documented by: Morphine Sulfate (Morphine 2 Mg/Ml Syringe) 1 mg IVPUSH Q4H PRN PRN Reason: Pain Last Admin: 09/22/20 08:43 Dose: 1 mg Documented by: Tiotropium [place] [ Spiriva Respimat] 4gm 2 each INH DAILY [facility] Last Admin: 09/22/20 09:26 Dose: Not Given Documented by: Prednisone (Prednisone 20 Mg Tab) 40 mg PO DAILY [facility] Last Admin: 09/22/20 08:50 Dose: 40 mg Documented by: Fluticasone/Salmeterol (Fluticasone/Salmeterol 250-50 Mcg Inhalation Powder 14/Diskus) 1 puff INH ONETIME ONE Stop: 09/22/20 11:33 Last Admin: 09/22/20 12:09 Dose: 1 inhalation Documented by: - Patient Data Lab Results Last 24 hrs: Laboratory Results - last 24 hr 09/22/20 09/22/20 09/22/20 Range/Units 05:35 05:35 16:01 WBC 6.11 (4.0-11.0) K/uL RBC 3.95 L (4.50-5.90) M/uL Hgb 9.2 L 10.4 L (13.0-17.0) g/dL Hct 33.0 L 38.1 (38.0-50.0) % MCV 83.5 (80.0-98.0) fL MCH 23.3 L (27.0-32.0) pg MCHC 27.9 L (31.0-37.0) g/dL RDW Std Deviation 58.2 (28.0-62.0) fl RDW Coeff of Tre 19 H (11.0-15.0) % Plt Count 200 (150-400) K/uL MPV 9.70 (7.40-12.00) fL Add Manual Diff YES Neutrophils % (Manual) 63 (48.0-80.0) % Band Neutrophils % 3 % Lymphocytes % (Manual) 20 (16.0-40.0) % Monocytes % (Manual) 9 (0.0-15.0) % Eosinophils % (Manual) 3 (0.0-7.0) % Metamyelocytes % 2 % Nucleated RBC % 0.0 /100WBC Absolute Seg Neuts 3.8 (1.4-5.7) Band Neutrophils # 0.2 Lymphocytes # (Manual) 1.2 (0.6-2.4) Monocytes # (Manual) 0.5 (0.0-0.8) Eosinophils # (Manual) 0.2 (0.0-0.7) Absolute Metamyelocyte 0.1 Nucleated RBCs # 0 K/uL Sodium 142 (136-148) mmol/L Potassium 4.1 (3.5-5.1) mmol/L Chloride 105 (98-107) mmol/L Carbon Dioxide 31.4 (21.0-32.0) mmol/L BUN 16 (7.0-18.0) mg/dL Creatinine 1.2 (0.8-1.3) mg/dL Est Cr Clr Drug Dosing 50.56 mL/min Estimated GFR (MDRD) > 60.0 ml/min Glucose 75 (74-106) mg/dL Calcium 6.9 L (8.5-10.1) mg/dL Phosphorus 2.3 L (2.6-4.7) mg/dL Magnesium 1.8 (1.8-2.4) mg/dL Result Diagrams: 09/22/20 16:01 09/22/20 05:35 Steve Results Last 24 hrs: Microbiology 09/22/20 16:12 Stool Occult Blood (STEVE) - Final Stool / Feces 09/22/20 05:00 C. difficile Antigen & Toxins A,B - Final Stool / Feces 09/21/20 02:00 Aerobic Blood Culture - Preliminary Blood - Venous - Lab Draw NO GROWTH AFTER 1 DAY Anaerobic Blood Culture - Preliminary NO GROWTH AFTER 1 DAY 09/21/20 01:50 Aerobic Blood Culture - Preliminary Blood - Venous NO GROWTH AFTER 1 DAY Anaerobic Blood Culture - Preliminary NO GROWTH AFTER 1 DAY Sepsis Event Note - Focused Exam Vital Signs: Vital Signs Temp Pulse Pulse Resp BP BP BP 09/22/20 20:34 98 137/82 09/22/20 19:35 36.6 C 98 16 137/82 09/22/20 15:57 36.5 C 79 20 136/85 09/22/20 11:00 36.8 C 100 16 142/82 H Pulse Ox 09/22/20 20:34 09/22/20 19:35 96 09/22/20 15:57 95 09/22/20 11:00 96 - Problem List & Annotations (1) Severe sepsis SNOMED Code(s): 60511110 Code(s): A41.9 - SEPSIS, UNSPECIFIED ORGANISM; R65.20 - SEVERE SEPSIS WITHOUT SEPTIC SHOCK Status: Acute Current Visit: Yes (2) Colitis SNOMED Code(s): 43627229 Code(s): K52.9 - NONINFECTIVE GASTROENTERITIS AND COLITIS, UNSPECIFIED Status: Acute Current Visit: Yes - My Orders Last 24 Hours: My Active Orders 09/22/20 00:00 Gabapentin [Neurontin] 800 mg PO QID 09/22/20 05:00 C DIFICILE TOXIN BY PCR CONF [MREF] Routine 09/22/20 09:00 Apixaban [Eliquis] 5 mg PO BID 09/22/20 12:39 LORazepam [Ativan] 0.5 mg IVPUSH Q8H PRN 09/22/20 12:41 RT Post Treatment Assessment [RC] Click to Edit RT Pre-Treatment Assessment [RC] Click to Edit 09/22/20 18:00 Albuterol/Ipratropium [Combivent Respimat] 0 gm INH Q4HRRT - Plan Plan:: I have seen and evaluated the patient. I have discussed findings and treatment plan with resident. I agree with the assessment and plan in the following note.
[2020-09-22] MEDS ORDERED: Albuterol/Ipratropium 4 GM Inhalation Spray INH PRN ×2 (11:32→18:00)
[2020-09-22] MEDS ORDERED: Fluticasone/Salmeterol 250-50 MCG Inhalation Powder 14/Diskus INH ONE (11:32)
[2020-09-22] MEDS: TIOTROPIUM BROMIDE 4 GM INH SCH (12:09)
[2020-09-22] MEDS: Albuterol 0.083% 2.5 MG/3 ML Neb Soln NEB PRN (12:09)
[2020-09-22] MEDS: Phosphorus #1 250 MG Tab PO SCH ×3 (12:12→23:00)
[2020-09-22] MEDS: HYDROmorphone 1 MG/ML Syringe IVPUSH PRN ×3 (12:13→20:44)
[2020-09-22] MEDS: methylPREDNISolone Sodium Succinate 40 MG/1 ML SDV IVPUSH SCH (12:14)
[2020-09-22] MEDS ORDERED: Albuterol/Ipratropium 4 GM Inhalation Spray INH SCH (12:45)
[2020-09-22] MEDS: LORazepam 2 MG/ML SDV IVPUSH PRN (12:55)
[2020-09-22] MEDS: Albuterol/Ipratropium 4 GM Inhalation Spray INH SCH ×2 (17:52→22:59)
[2020-09-22] MEDS: Vancomycin 125 MG Cap PO SCH (23:00)
[2020-09-23] MEDS: HYDROmorphone 1 MG/ML Syringe IVPUSH PRN (01:27)
[2020-09-23] MEDS: Albuterol/Ipratropium 4 GM Inhalation Spray INH SCH ×6 (01:29→21:01)
[2020-09-23] MEDS: Piperacillin/Tazobactam 3.375 GM in Sodium Chloride 0.9% 50 ML IV SCH ×3 (04:02→18:36)
[2020-09-23] MEDS: Phosphorus #1 250 MG Tab PO SCH ×4 (05:59→23:01)
[2020-09-23] MEDS: Gabapentin 800 MG Tab PO SCH ×4 (05:59→23:01)
[2020-09-23] MEDS: Vancomycin 125 MG Cap PO SCH ×4 (05:59→23:01)
[2020-09-23 06:47] LABS: BLOOD UREA NITROGEN,BUN 16 mg/dL (7.0-18.0); CARBON DIOXIDE,CO2 30.6 mmol/L (21.0-32.0); CHLORIDE,CL 105 mmol/L (98-107); GLUCOSE RANDOM 112 mg/dL (74-106); POTASSIUM,K 4.4 mmol/L (3.5-5.1); SODIUM,NA 142 mmol/L (136-148)
[2020-09-23] MEDS: Pantoprazole 40 MG in Sodium Chloride 0.9% 10 ML IV SCH (08:44)
[2020-09-23] MEDS: methylPREDNISolone Sodium Succinate 40 MG/1 ML SDV IVPUSH SCH (08:48)
[2020-09-23] MEDS: Metoprolol Tartrate 50 MG Tab PO SCH ×2 (08:50→21:01)
[2020-09-23] MEDS: Apixaban 5 MG Tab PO SCH ×2 (08:51→21:00)
[2020-09-23] MEDS: TIOTROPIUM BROMIDE 4 GM INH SCH (09:49)
[2020-09-23] MEDS ORDERED: HYDROmorphone 1 MG/ML Syringe IVPUSH PRN (10:59)
--- NOTE | 2020-09-23 11:42 | PCM.PN ---
<Kaz Fleming - Last Filed: 09/23/20 11:42> - General Info Date of Service: 09/23/20 Subjective Update: Bedside: no acute distress. mention abd. pain and diarrhea are marginally improved since yesterday. C.o back pain - Review of Systems General: Reports: Weakness, Fatigue. Denies: Fever HEENT: Reports: No Symptoms Pulmonary: Reports: Cough, Wheezing Cardiovascular: Reports: No Symptoms Gastrointestinal: Denies: Abdominal Pain, Decreased Appetite, Diarrhea, Nausea, Vomiting Genitourinary: Reports: No Symptoms Musculoskeletal: Reports: Back Pain Neurological: Reports: No Symptoms Psychiatric: Reports: No Symptoms - Patient Data Vitals - Most Recent: Last Vital Signs Temp 97.7 F 09/23/20 08:00 Pulse 90 09/23/20 08:50 Resp 18 09/23/20 08:00 BP 144/97 H 09/23/20 08:50 Pulse Ox 98 09/23/20 08:00 Weight - Most Recent: 72.393 kg I&O - Last 24 Hours: Intake & Output 09/22/20 09/23/20 09/23/20 22:59 06:59 14:59 Intake Total 520 200 Output Total 650 950 Balance -130 -750 Lab Results Last 24 Hours: Laboratory Results - last 24 hr 09/22/20 09/23/20 09/23/20 Range/Units 16:01 05:43 05:43 WBC 6.15 (4.0-11.0) K/uL RBC 3.79 L (4.50-5.90) M/uL Hgb 10.4 L 8.8 L (13.0-17.0) g/dL Hct 38.1 31.2 L (38.0-50.0) % MCV 82.3 (80.0-98.0) fL MCH 23.2 L (27.0-32.0) pg MCHC 28.2 L (31.0-37.0) g/dL RDW Std Deviation 56.5 (28.0-62.0) fl RDW Coeff of Tre 19 H (11.0-15.0) % Plt Count 186 (150-400) K/uL MPV 10.00 (7.40-12.00) fL Neut % (Auto) 76.4 (48.0-80.0) % Lymph % (Auto) 15.1 L (16.0-40.0) % [place] % (Auto) 8.1 (0.0-15.0) % Eos % (Auto) 0.2 (0.0-7.0) % Baso % (Auto) 0.2 (0.0-1.5) % Neut # (Auto) 4.7 (1.4-5.7) K/uL Lymph # (Auto) 0.9 (0.6-2.4) K/uL [place] # (Auto) 0.5 (0.0-0.8) K/uL Eos # (Auto) 0.0 (0.0-0.7) K/uL Baso # (Auto) 0.0 (0.0-0.1) K/uL Nucleated RBC % 0.0 /100WBC Nucleated RBCs # 0 K/uL Sodium 142 (136-148) mmol/L Potassium 4.4 (3.5-5.1) mmol/L Chloride 105 (98-107) mmol/L Carbon Dioxide 30.6 (21.0-32.0) mmol/L BUN 16 (7.0-18.0) mg/dL Creatinine 1.0 (0.8-1.3) mg/dL Est Cr Clr Drug Dosing 60.67 mL/min Estimated GFR (MDRD) > 60.0 ml/min Glucose 112 H (74-106) mg/dL Calcium 7.0 L (8.5-10.1) mg/dL Steve Results Last 24 Hours: Microbiology 09/22/20 05:00 Clostridioides difficile (PCR) - Final Stool / Feces 09/21/20 02:00 Aerobic Blood Culture - Preliminary Blood - Venous - Lab Draw NO GROWTH AFTER 2 DAYS Anaerobic Blood Culture - Preliminary NO GROWTH AFTER 2 DAYS 09/21/20 01:50 Aerobic Blood Culture - Preliminary Blood - Venous NO GROWTH AFTER 2 DAYS Anaerobic Blood Culture - Preliminary NO GROWTH AFTER 2 DAYS 09/22/20 16:12 Stool Occult Blood (STEVE) - Final Stool / Feces Med Orders - Current: Current Medications Albuterol (Albuterol 0.083% 2.5 Mg/3 Ml Neb Soln) 2.5 mg NEB Q4HRRT PRN PRN Reason: Shortness of Breath Last Admin: 09/22/20 12:09 Dose: 2.5 mg Documented by: Albuterol/Ipratropium (Albuterol/Ipratropium 4 Gm Inhalation [place]) 0 gm INH Q4HRRT [facility] Last Admin: 09/23/20 09:49 Dose: Not Given Documented by: Apixaban (Apixaban 5 Mg Tab) 5 mg PO BID [facility] Last Admin: 09/23/20 08:51 Dose: 5 mg Documented by: Gabapentin (Gabapentin 800 Mg Tab) 800 mg PO QID [facility] Last Admin: 09/23/20 05:59 Dose: 800 mg Documented by: Hydromorphone HCl (Hydromorphone 1 Mg/Ml Syringe) 2 mg IVPUSH Q4H PRN PRN Reason: Pain Pantoprazole Sodium 40 mg/ (Sodium Chloride) 10 mls @ 300 mls/hr IV Q24H [facility] Last Admin: 09/23/20 08:44 Dose: 300 mls/hr Documented by: Piperacillin Sod/Tazobactam (Sod 3.375 gm/ Sodium Chloride) 50 mls @ 100 mls/hr IV Q8H [facility] Last Admin: 09/23/20 11:22 Dose: 100 mls/hr Documented by: Lorazepam (Lorazepam 2 Mg/Ml Sdv) 0.5 mg IVPUSH Q8H PRN PRN Reason: Anxiety Last Admin: 09/22/20 12:55 Dose: 0.5 mg Documented by: Metoprolol Tartrate (Metoprolol Tartrate 50 Mg Tab) 50 mg PO BID [facility] Last Admin: 09/23/20 08:50 Dose: 50 mg Documented by: Ondansetron HCl (Ondansetron 4 Mg/2 Ml Sdv) 4 mg IVPUSH Q4H PRN PRN Reason: Nausea Prednisone (Prednisone 10 Mg Tab) 30 mg PO WITHBREAKFAST [facility] Sodium Chloride (Sodium Chloride 0.9% 10 Ml Syringe) 10 ml FLUSH ASDIRECTED PRN PRN Reason: Keep Vein Open Sodium Chloride (Sodium Chloride 0.9% 2.5 Ml Syringe) 2.5 ml FLUSH ASDIRECTED P RN PRN Reason: Keep Vein Open Sodium Phosphate (Phosphorus #1 250 Mg Tab) 250 mg PO QID [facility] Last Admin: 09/23/20 05:59 Dose: 250 mg Documented by: Tiotropium [place] (Tiotropium [place] [Spiriva Respimat] 4gm) 18 mcg INH DAILY [facility] Last Admin: 09/23/20 09:49 Dose: Not Given Documented by: Vancomycin HCl (Vancomycin 125 Mg Cap) 125 mg PO QID [facility] Last Admin: 09/23/20 05:59 Dose: 125 mg Documented by: Discontinued Medications Albuterol/Ipratropium (Albuterol/Ipratropium 4 Gm Inhalation [place]) 0 gm INH Q4H PRN PRN Reason: Dyspnea Albuterol/Ipratropium (Albuterol/Ipratropium 4 Gm Inhalation [place]) 0 gm INH Q4H [facility] Last Admin: 09/22/20 13:30 Dose: Not Given Documented by: Enoxaparin Sodium (Enoxaparin 40 Mg/0.4 Ml Syringe) 40 mg SUBCUT Q24H [facility] Last Admin: 09/21/20 08:24 Dose: 40 mg Documented by: Hydromorphone HCl (Hydromorphone 1 Mg/Ml Syringe) 1 mg IVPUSH Q4H PRN PRN Reason: Pain Last Admin: 09/23/20 01:27 Dose: 1 mg Documented by: Pantoprazole Sodium 40 mg/ (Sodium Chloride) 10 mls @ 300 mls/hr IV NOW ONE Stop: 09/21/20 00:47 Last Admin: 09/21/20 00:55 Dose: 300 mls/hr Documented by: Sodium Chloride (Normal Saline) 1,000 mls @ 999 mls/hr IV .Bolus ONE Stop: 09/21/20 02:28 Last Admin: 09/21/20 02:03 Dose: 999 mls/hr Documented by: Sodium Chloride (Normal Saline) 1,000 mls @ 650 mls/hr IV .Bolus ONE Stop: 09/21/20 03:00 Last Admin: 09/21/20 02:51 Dose: 650 mls/hr Documented by: Levofloxacin/Dextrose 750 mg/ (Premix) 150 mls @ 100 mls/hr IV ONETIME ONE Stop: 09/21/20 02:58 Last Admin: 09/21/20 02:52 Dose: Not Given Documented by: Metronidazole 500 mg/ Premix 100 mls @ 100 mls/hr IV ONETIME ONE Stop: 09/21/20 02:30 Last Admin: 09/21/20 02:03 Dose: 100 mls/hr Documented by: Levofloxacin/Dextrose (Levaquin In D5w 750 Mg/150 Ml) Confirm Administered Dose 150 mls @ as directed IV .STK-MED ONE Stop: 09/21/20 01:33 Last Admin: 09/21/20 01:44 Dose: Not Given Documented by: Metronidazole (Flagyl In Ns 500 Mg/100 Ml) Confirm Administered Dose 100 mls @ as directed .ROUTE .STK-MED ONE Stop: 09/21/20 01:33 Last Admin: 09/21/20 01:43 Dose: Not Given Documented by: Piperacillin Sod/Tazobactam (Sod 4.5 gm/ Sodium Chloride) 100 mls @ 100 mls/hr IV ONETIME ONE Stop: 09/21/20 03:16 Last Admin: 09/21/20 02:51 Dose: 100 mls/hr Documented by: Lactated Ringer's (Ringers, Lactated) 1,000 mls @ 125 mls/hr IV ASDIRECTED [facility] Last Admin: 09/21/20 07:03 Dose: 125 mls/hr Documented by: Lactated Ringer's (Ringers, Lactated) 500 mls @ 500 mls/hr IV ONETIME ONE Stop: 09/21/20 20:37 Last Admin: 09/21/20 20:20 Dose: 500 mls/hr Documented by: Iopamidol (Iopamidol 755 Mg/Ml 500 Ml Multipack Bottle) 100 ml IVPUSH ONETIME STA Stop: 09/21/20 01:55 Last Admin: 09/21/20 01:54 Dose: 100 ml Documented by: Lorazepam (Lorazepam 2 Mg/Ml Sdv) 0.5 mg IVPUSH ONETIME ONE Stop: 09/21/20 02:22 Last Admin: 09/21/20 02:51 Dose: 0.5 mg Documented by: Lorazepam (Lorazepam 2 Mg/Ml Sdv) 1 mg IVPUSH ONETIME ONE Stop: 09/22/20 00:12 Last Admin: 09/22/20 00:57 Dose: 1 mg Documented by: Lorazepam (Lorazepam 2 Mg/Ml Sdv) 0.5 mg IVPUSH ONETIME ONE Stop: 09/22/20 18:25 Last Admin: 09/22/20 18:56 Dose: 0.5 mg Documented by: Methylprednisolone Sodium Succinate (Methylprednisolone Sodium Succinate 40 Mg/1 Ml Sdv) 40 mg IVPUSH DAILY [facility] Last Admin: 09/23/20 08:48 Dose: 40 mg Documented by: Metoclopramide HCl (Metoclopramide 10 Mg/2 Ml Sdv) 10 mg IVPUSH ONETIME ONE Stop: 09/21/20 00:51 Last Admin: 09/21/20 00:59 Dose: 10 mg Documented by: Morphine Sulfate (Morphine 4 Mg/Ml Syringe) 4 mg IVPUSH ONETIME ONE Stop: 09/21/20 00:50 Last Admin: 09/21/20 00:59 Dose: 4 mg Documented by: Morphine Sulfate (Morphine 2 Mg/Ml Syringe) 1 mg IVPUSH Q4H PRN PRN Reason: Pain Last Admin: 09/22/20 08:43 Dose: 1 mg Documented by: Tiotropium [place] [ Spiriva Respimat] 4gm 2 each INH DAILY [facility] Last Admin: 09/22/20 09:26 Dose: Not Given Documented by: Prednisone (Prednisone 20 Mg Tab) 40 mg PO DAILY [facility] Last Admin: 09/22/20 08:50 Dose: 40 mg Documented by: Fluticasone/Salmeterol (Fluticasone/Salmeterol 250-50 Mcg Inhalation Powder 14/Diskus) 1 puff INH ONETIME ONE Stop: 09/22/20 11:33 Last Admin: 09/22/20 12:09 Dose: 1 inhalation Documented by: - Exam Quality Assessment: Supplemental Oxygen General: Alert, Oriented, No Acute Distress HEENT: EOMI Neck: Supple Lungs: Other (expiratory wheezing noted ) Cardiovascular: Regular Rate GI/Abdominal Exam: Soft, Non-Tender Extremities: Normal Inspection Neurological: No New Focal Deficit Psy/Mental Status: Alert, Normal Affect Physical Findings Comments:: Cushingoid habitus/face - Patient Data Lab Results Last 24 hrs: Laboratory Results - last 24 hr 09/22/20 09/23/20 09/23/20 Range/Units 16:01 05:43 05:43 WBC 6.15 (4.0-11.0) K/uL RBC 3.79 L (4.50-5.90) M/uL Hgb 10.4 L 8.8 L (13.0-17.0) g/dL Hct 38.1 31.2 L (38.0-50.0) % MCV 82.3 (80.0-98.0) fL MCH 23.2 L (27.0-32.0) pg MCHC 28.2 L (31.0-37.0) g/dL RDW Std Deviation 56.5 (28.0-62.0) fl RDW Coeff of Tre 19 H (11.0-15.0) % Plt Count 186 (150-400) K/uL MPV 10.00 (7.40-12.00) fL Neut % (Auto) 76.4 (48.0-80.0) % Lymph % (Auto) 15.1 L (16.0-40.0) % [place] % (Auto) 8.1 (0.0-15.0) % Eos % (Auto) 0.2 (0.0-7.0) % Baso % (Auto) 0.2 (0.0-1.5) % Neut # (Auto) 4.7 (1.4-5.7) K/uL Lymph # (Auto) 0.9 (0.6-2.4) K/uL [place] # (Auto) 0.5 (0.0-0.8) K/uL Eos # (Auto) 0.0 (0.0-0.7) K/uL Baso # (Auto) 0.0 (0.0-0.1) K/uL Nucleated RBC % 0.0 /100WBC Nucleated RBCs # 0 K/uL Sodium 142 (136-148) mmol/L Potassium 4.4 (3.5-5.1) mmol/L Chloride 105 (98-107) mmol/L Carbon Dioxide 30.6 (21.0-32.0) mmol/L BUN 16 (7.0-18.0) mg/dL Creatinine 1.0 (0.8-1.3) mg/dL Est Cr Clr Drug Dosing 60.67 mL/min Estimated GFR (MDRD) > 60.0 ml/min Glucose 112 H (74-106) mg/dL Calcium 7.0 L (8.5-10.1) mg/dL Result Diagrams: 09/23/20 05:43 09/23/20 05:43 Steve Results Last 24 hrs: Microbiology 09/22/20 05:00 Clostridioides difficile (PCR) - Final Stool / Feces 09/21/20 02:00 Aerobic Blood Culture - Preliminary Blood - Venous - Lab Draw NO GROWTH AFTER 2 DAYS Anaerobic Blood Culture - Preliminary NO GROWTH AFTER 2 DAYS 09/21/20 01:50 Aerobic Blood Culture - Preliminary Blood - Venous NO GROWTH AFTER 2 DAYS Anaerobic Blood Culture - Preliminary NO GROWTH AFTER 2 DAYS 09/22/20 16:12 Stool Occult Blood (STEVE) - Final Stool / Feces Sepsis Event Note - Evaluation Sepsis Screening Result: No Definite Risk - Focused Exam Vital Signs: Vital Signs Temp Pulse Pulse Resp BP BP Pulse Ox 09/23/20 08:50 90 144/97 H 09/23/20 08:00 97.7 F 90 18 144/97 H 98 09/23/20 04:08 97.0 F 70 15 135/71 100 - Problem List & Annotations (1) Colitis SNOMED Code(s): 71364470 Code(s): K52.9 - NONINFECTIVE GASTROENTERITIS AND COLITIS, UNSPECIFIED Status: Acute Current Visit: Yes (2) History of aspergillosis SNOMED Code(s): 102209798 Code(s): Z86.19 - PERSONAL HISTORY OF OTHER INFECTIOUS AND PARASITIC DISEASES Status: Chronic Priority: High Current Visit: No - Problem List Review Problem List Initiated/Reviewed/Updated: Yes - My Orders Last 24 Hours: My Active Orders 09/22/20 11:30 Tiotropium [Spiriva HandiHaler] 18 mcg INH DAILY 09/22/20 12:00 Phosphorus #1 [Neutra-Phos] 250 mg PO QID 09/22/20 19:13 Code Status [Resuscitation Status] Routine 09/23/20 00:00 Vancomycin [Vancocin 125 MG Capsule] 125 mg PO QID 09/24/20 05:11 BASIC METABOLIC PANEL,BMP [CHEM] AM BASIC METABOLIC PANEL,BMP [CHEM] AM CBC WITH AUTO DIFF [HEME] AM CBC WITH AUTO DIFF [HEME] AM 09/25/20 05:11 BASIC METABOLIC PANEL,BMP [CHEM] AM BASIC METABOLIC PANEL,BMP [CHEM] AM CBC WITH AUTO DIFF [HEME] AM CBC WITH AUTO DIFF [HEME] AM 09/26/20 05:11 BASIC METABOLIC PANEL,BMP [CHEM] AM CBC WITH AUTO DIFF [HEME] AM - Plan Plan:: 60-year-old male admitted secondary to severe sepsis due to possible ongoing colitis Colitis: C DIff positive , PCR positive ; continue PO Vancomycin and monitor for response Blood cultures negative x 2 days Continue IV Zosyn; consider dc tomorrow Normocytic Anemia: stable, stool guaic negative ; VSS otherwise Chronuic back/pain: Resume Dilaudid at 2 mg q4hrs Hx of B.aspergillus/COPD:discontinue IV methylprednisolone ; switch to pred 30 mg po; monitor for response IV PPI daily IV Zofran as needed Lovenox for DVT prophylaxis DuoNebs as needed for shortness of breath Continue oxygenation via nasal cannula 2 L which is patient's baseline at home Encourage ambulation throughout the day [employer] status: DNR/DNI <Pavan Arias - Last Filed: 09/24/20 12:22> - Patient Data Vitals - Most Recent: Last Vital Signs Temp 36.3 C 09/24/20 12:00 Pulse 88 09/24/20 12:00 Resp 20 09/24/20 12:00 BP 133/74 09/24/20 12:00 Pulse Ox 97 09/24/20 12:00 I&O - Last 24 Hours: Intake & Output 09/23/20 09/24/20 09/24/20 22:59 06:59 14:59 Intake Total 440 880 Output Total 550 690 Balance -110 190 Lab Results Last 24 Hours: Laboratory Results - last 24 hr 09/24/20 09/24/20 09/24/20 Range/Units 05:33 05:33 05:33 WBC 5.67 (4.0-11.0) K/uL RBC 3.88 L (4.50-5.90) M/uL Hgb 9.1 L (13.0-17.0) g/dL Hct 32.7 L (38.0-50.0) % MCV 84.3 (80.0-98.0) fL MCH 23.5 L (27.0-32.0) pg MCHC 27.8 L (31.0-37.0) g/dL RDW Std Deviation 58.6 (28.0-62.0) fl RDW Coeff of Tre 19 H (11.0-15.0) % Plt Count 198 (150-400) K/uL MPV 9.80 (7.40-12.00) fL Neut % (Auto) 69.7 (48.0-80.0) % Lymph % (Auto) 22.2 (16.0-40.0) % [place] % (Auto) 8.1 (0.0-15.0) % Eos % (Auto) 0.0 (0.0-7.0) % Baso % (Auto) 0.0 (0.0-1.5) % Neut # (Auto) 4.0 (1.4-5.7) K/uL Lymph # (Auto) 1.3 (0.6-2.4) K/uL [place] # (Auto) 0.5 (0.0-0.8) K/uL Eos # (Auto) 0.0 (0.0-0.7) K/uL Baso # (Auto) 0.0 (0.0-0.1) K/uL Nucleated RBC % 0.0 /100WBC Nucleated RBCs # 0 K/uL Sodium 145 (136-148) mmol/L Potassium 4.3 (3.5-5.1) mmol/L Chloride 107 (98-107) mmol/L Carbon Dioxide 30.4 (21.0-32.0) mmol/L BUN 24 H (7.0-18.0) mg/dL Creatinine 1.6 H (0.8-1.3) mg/dL Est Cr Clr Drug Dosing 37.92 mL/min Estimated GFR (MDRD) 44.3 ml/min Glucose 127 H (74-106) mg/dL Calcium 7.2 L (8.5-10.1) mg/dL Magnesium 2.1 (1.8-2.4) mg/dL Ur Random Sodium (40.0-220.0) mmol/L 09/24/20 Range/Units 11:10 WBC (4.0-11.0) K/uL RBC (4.50-5.90) M/uL Hgb (13.0-17.0) g/dL Hct (38.0-50.0) % MCV (80.0-98.0) fL MCH (27.0-32.0) pg MCHC (31.0-37.0) g/dL RDW Std Deviation (28.0-62.0) fl RDW Coeff of Tre (11.0-15.0) % Plt Count (150-400) K/uL MPV (7.40-12.00) fL Neut % (Auto) (48.0-80.0) % Lymph % (Auto) (16.0-40.0) % [place] % (Auto) (0.0-15.0) % Eos % (Auto) (0.0-7.0) % Baso % (Auto) (0.0-1.5) % Neut # (Auto) (1.4-5.7) K/uL Lymph # (Auto) (0.6-2.4) K/uL [place] # (Auto) (0.0-0.8) K/uL Eos # (Auto) (0.0-0.7) K/uL Baso # (Auto) (0.0-0.1) K/uL Nucleated RBC % /100WBC Nucleated RBCs # K/uL Sodium (136-148) mmol/L Potassium (3.5-5.1) mmol/L Chloride (98-107) mmol/L Carbon Dioxide (21.0-32.0) mmol/L BUN (7.0-18.0) mg/dL Creatinine (0.8-1.3) mg/dL Est Cr Clr Drug Dosing mL/min Estimated GFR (MDRD) ml/min Glucose (74-106) mg/dL Calcium (8.5-10.1) mg/dL Magnesium (1.8-2.4) mg/dL Ur Random Sodium 100.0 (40.0-220.0) mmol/L Steve Results Last 24 Hours: Microbiology 09/21/20 02:00 Aerobic Blood Culture - Preliminary Blood - Venous - Lab Draw NO GROWTH AFTER 3 DAYS Anaerobic Blood Culture - Preliminary NO GROWTH AFTER 3 DAYS 09/21/20 01:50 Aerobic Blood Culture - Preliminary Blood - Venous NO GROWTH AFTER 3 DAYS Anaerobic Blood Culture - Preliminary NO GROWTH AFTER 3 DAYS 09/22/20 05:00 Clostridioides difficile (PCR) - Final Stool / Feces Med Orders - Current: Current Medications Albuterol (Albuterol 0.083% 2.5 Mg/3 Ml Neb Soln) 2.5 mg NEB Q4HRRT PRN PRN Reason: Shortness of Breath Last Admin: 09/22/20 12:09 Dose: 2.5 mg Documented by: Albuterol/Ipratropium (Albuterol/Ipratropium 4 Gm Inhalation [place]) 0 gm INH Q4HRRT [facility] Last Admin: 09/24/20 09:04 Dose: 1 inhalation Documented by: Apixaban (Apixaban 5 Mg Tab) 5 mg PO BID [facility] Last Admin: 09/24/20 08:16 Dose: 5 mg Documented by: Gabapentin (Gabapentin 800 Mg Tab) 800 mg PO QID [facility] Last Admin: 09/24/20 12:05 Dose: 800 mg Documented by: Hydromorphone HCl (Hydromorphone 2 Mg/Ml Syringe) 2 mg IVPUSH Q4H PRN PRN Reason: Pain Last Admin: 09/24/20 07:19 Dose: 2 mg Documented by: Pantoprazole Sodium 40 mg/ (Sodium Chloride) 10 mls @ 300 mls/hr IV Q24H [facility] Last Admin: 09/24/20 08:17 Dose: 300 mls/hr Documented by: Sodium Chloride (Normal Saline) 500 mls @ 999 mls/hr IV STAT [facility] Last Admin: 09/24/20 08:48 Dose: 999 mls/hr Documented by: Lorazepam (Lorazepam 2 Mg/Ml Sdv) 0.5 mg IVPUSH Q8H PRN PRN Reason: Anxiety Last Admin: 09/23/20 15:58 Dose: 0.5 mg Documented by: Metoprolol Tartrate (Metoprolol Tartrate 50 Mg Tab) 50 mg PO BID [facility] Last Admin: 09/24/20 08:15 Dose: 50 mg Documented by: Ondansetron HCl (Ondansetron 4 Mg/2 Ml Sdv) 4 mg IVPUSH Q4H PRN PRN Reason: Nausea Prednisone (Prednisone 10 Mg Tab) 30 mg PO WITHBREAKFAST [facility] Last Admin: 09/24/20 08:15 Dose: 30 mg Documented by: Sodium Chloride (Sodium Chloride 0.9% 10 Ml Syringe) 10 ml FLUSH ASDIRECTED PRN PRN Reason: Keep Vein Open Sodium Chloride (Sodium Chloride 0.9% 2.5 Ml Syringe) 2.5 ml FLUSH ASDIRECTED PRN PRN Reason: Keep Vein Open Sodium Phosphate (Phosphorus #1 250 Mg Tab) 250 mg PO QID [facility] Last Admin: 09/24/20 12:05 Dose: 250 mg Documented by: Tiotropium [place] (Tiotropium [place] [Spiriva Respimat] 4gm) 18 mcg INH DAILY [facility] Last Admin: 09/24/20 09:03 Dose: 1 cap Documented by: Vancomycin HCl (Vancomycin 125 Mg Cap) 125 mg PO QID [facility] Last Admin: 09/24/20 12:04 Dose: 125 mg Documented by: Discontinued Medications Albuterol/Ipratropium (Albuterol/Ipratropium 4 Gm Inhalation [place]) 0 gm INH Q4H PRN PRN Reason: Dyspnea Albuterol/Ipratropium (Albuterol/Ipratropium 4 Gm Inhalation [place]) 0 gm INH Q4H [facility] Last Admin: 09/22/20 13:30 Dose: Not Given Documented by: Enoxaparin Sodium (Enoxaparin 40 Mg/0.4 Ml Syringe) 40 mg SUBCUT Q24H [facility] Last Admin: 09/21/20 08:24 Dose: 40 mg Documented by: Hydromorphone HCl (Hydromorphone 1 Mg/Ml Syringe) 1 mg IVPUSH Q4H PRN PRN Reason: Pain Last Admin: 09/23/20 01:27 Dose: 1 mg Documented by: Hydromorphone HCl (Hydromorphone 1 Mg/Ml Syringe) 2 mg IVPUSH Q4H PRN PRN Reason: Pain Last Admin: 09/23/20 14:06 Dose: 2 mg Documented by: Pantoprazole Sodium 40 mg/ (Sodium Chloride) 10 mls @ 300 mls/hr IV NOW ONE Stop: 09/21/20 00:47 Last Admin: 09/21/20 00:55 Dose: 300 mls/hr Documented by: Sodium Chloride (Normal Saline) 1,000 mls @ 999 mls/hr IV .Bolus ONE Stop: 09/21/20 02:28 Last Admin: 09/21/20 02:03 Dose: 999 mls/hr Documented by: Sodium Chloride (Normal Saline) 1,000 mls @ 650 mls/hr IV .Bolus ONE Stop: 09/21/20 03:00 Last Admin: 09/21/20 02:51 Dose: 650 mls/hr Documented by: Levofloxacin/Dextrose 750 mg/ (Premix) 150 mls @ 100 mls/hr IV ONETIME ONE Stop: 09/21/20 02:58 Last Admin: 09/21/20 02:52 Dose: Not Given Documented by: Metronidazole 500 mg/ Premix 100 mls @ 100 mls/hr IV ONETIME ONE Stop: 09/21/20 02:30 Last Admin: 09/21/20 02:03 Dose: 100 mls/hr Documented by: Levofloxacin/Dextrose (Levaquin In D5w 750 Mg/150 Ml) Confirm Administered Dose 150 mls @ as directed IV .STK-MED ONE Stop: 09/21/20 01:33 Last Admin: 09/21/20 01:44 Dose: Not Given Documented by: Metronidazole (Flagyl In Ns 500 Mg/100 Ml) Confirm Administered Dose 100 mls @ as directed .ROUTE .STK-MED ONE Stop: 09/21/20 01:33 Last Admin: 09/21/20 01:43 Dose: Not Given Documented by: Piperacillin Sod/Tazobactam (Sod 4.5 gm/ Sodium Chloride) 100 mls @ 100 mls/hr IV ONETIME ONE Stop: 09/21/20 03:16 Last Admin: 09/21/20 02:51 Dose: 100 mls/hr Documented by: Piperacillin Sod/Tazobactam (Sod 3.375 gm/ Sodium Chloride) 50 mls @ 100 mls/hr IV Q8H [facility] Last Admin: 09/24/20 02:18 Dose: 100 mls/hr Documented by: Lactated Ringer's (Ringers, Lactated) 1,000 mls @ 125 mls/hr IV ASDIRECTED [facility] Last Admin: 09/21/20 07:03 Dose: 125 mls/hr Documented by: Lactated Ringer's (Ringers, Lactated) 500 mls @ 500 mls/hr IV ONETIME ONE Stop: 09/21/20 20:37 Last Admin: 09/21/20 20:20 Dose: 500 mls/hr Documented by: Iopamidol (Iopamidol 755 Mg/Ml 500 Ml Multipack Bottle) 100 ml IVPUSH ONETIME STA Stop: 09/21/20 01:55 Last Admin: 09/21/20 01:54 Dose: 100 ml Documented by: Lorazepam (Lorazepam 2 Mg/Ml Sdv) 0.5 mg IVPUSH ONETIME ONE Stop: 09/21/20 02:22 Last Admin: 09/21/20 02:51 Dose: 0.5 mg Documented by: Lorazepam (Lorazepam 2 Mg/Ml Sdv) 1 mg IVPUSH ONETIME ONE Stop: 09/22/20 00:12 Last Admin: 09/22/20 00:57 Dose: 1 mg Documented by: Lorazepam (Lorazepam 2 Mg/Ml Sdv) 0.5 mg IVPUSH ONETIME ONE Stop: 09/22/20 18:25 Last Admin: 09/22/20 18:56 Dose: 0.5 mg Documented by: Methylprednisolone Sodium Succinate (Methylprednisolone Sodium Succinate 40 Mg/1 Ml Sdv) 40 mg IVPUSH DAILY [facility] Last Admin: 09/23/20 08:48 Dose: 40 mg Documented by: Metoclopramide HCl (Metoclopramide 10 Mg/2 Ml Sdv) 10 mg IVPUSH ONETIME ONE Stop: 09/21/20 00:51 Last Admin: 09/21/20 00:59 Dose: 10 mg Documented by: Morphine Sulfate (Morphine 4 Mg/Ml Syringe) 4 mg IVPUSH ONETIME ONE Stop: 09/21/20 00:50 Last Admin: 09/21/20 00:59 Dose: 4 mg Documented by: Morphine Sulfate (Morphine 2 Mg/Ml Syringe) 1 mg IVPUSH Q4H PRN PRN Reason: Pain Last Admin: 09/22/20 08:43 Dose: 1 mg Documented by: Tiotropium [place] [ Spiriva Respimat] 4gm 2 each INH DAILY [facility] Last Admin: 09/22/20 09:26 Dose: Not Given Documented by: Prednisone (Prednisone 20 Mg Tab) 40 mg PO DAILY [facility] Last Admin: 09/22/20 08:50 Dose: 40 mg Documented by: Fluticasone/Salmeterol (Fluticasone/Salmeterol 250-50 Mcg Inhalation Powder 14/Diskus) 1 puff INH ONETIME ONE Stop: 09/22/20 11:33 Last Admin: 09/22/20 12:09 Dose: 1 inhalation Documented by: - Patient Data Lab Results Last 24 hrs: Laboratory Results - last 24 hr 09/24/20 09/24/20 09/24/20 Range/Units 05:33 05:33 05:33 WBC 5.67 (4.0-11.0) K/uL RBC 3.88 L (4.50-5.90) M/uL Hgb 9.1 L (13.0-17.0) g/dL Hct 32.7 L (38.0-50.0) % MCV 84.3 (80.0-98.0) fL MCH 23.5 L (27.0-32.0) pg MCHC 27.8 L (31.0-37.0) g/dL RDW Std Deviation 58.6 (28.0-62.0) fl RDW Coeff of Tre 19 H (11.0-15.0) % Plt Count 198 (150-400) K/uL MPV 9.80 (7.40-12.00) fL Neut % (Auto) 69.7 (48.0-80.0) % Lymph % (Auto) 22.2 (16.0-40.0) % [place] % (Auto) 8.1 (0.0-15.0) % Eos % (Auto) 0.0 (0.0-7.0) % Baso % (Auto) 0.0 (0.0-1.5) % Neut # (Auto) 4.0 (1.4-5.7) K/uL Lymph # (Auto) 1.3 (0.6-2.4) K/uL [place] # (Auto) 0.5 (0.0-0.8) K/uL Eos # (Auto) 0.0 (0.0-0.7) K/uL Baso # (Auto) 0.0 (0.0-0.1) K/uL Nucleated RBC % 0.0 /100WBC Nucleated RBCs # 0 K/uL Sodium 145 (136-148) mmol/L Potassium 4.3 (3.5-5.1) mmol/L Chloride 107 (98-107) mmol/L Carbon Dioxide 30.4 (21.0-32.0) mmol/L BUN 24 H (7.0-18.0) mg/dL Creatinine 1.6 H (0.8-1.3) mg/dL Est Cr Clr Drug Dosing 37.92 mL/min Estimated GFR (MDRD) 44.3 ml/min Glucose 127 H (74-106) mg/dL Calcium 7.2 L (8.5-10.1) mg/dL Magnesium 2.1 (1.8-2.4) mg/dL Ur Random Sodium (40.0-220.0) mmol/L 09/24/20 Range/Units 11:10 WBC (4.0-11.0) K/uL RBC (4.50-5.90) M/uL Hgb (13.0-17.0) g/dL Hct (38.0-50.0) % MCV (80.0-98.0) fL MCH (27.0-32.0) pg MCHC (31.0-37.0) g/dL RDW Std Deviation (28.0-62.0) fl RDW Coeff of Tre (11.0-15.0) % Plt Count (150-400) K/uL MPV (7.40-12.00) fL Neut % (Auto) (48.0-80.0) % Lymph % (Auto) (16.0-40.0) % [place] % (Auto) (0.0-15.0) % Eos % (Auto) (0.0-7.0) % Baso % (Auto) (0.0-1.5) % Neut # (Auto) (1.4-5.7) K/uL Lymph # (Auto) (0.6-2.4) K/uL [place] # (Auto) (0.0-0.8) K/uL Eos # (Auto) (0.0-0.7) K/uL Baso # (Auto) (0.0-0.1) K/uL Nucleated RBC % /100WBC Nucleated RBCs # K/uL Sodium (136-148) mmol/L Potassium (3.5-5.1) mmol/L Chloride (98-107) mmol/L Carbon Dioxide (21.0-32.0) mmol/L BUN (7.0-18.0) mg/dL Creatinine (0.8-1.3) mg/dL Est Cr Clr Drug Dosing mL/min Estimated GFR (MDRD) ml/min Glucose (74-106) mg/dL Calcium (8.5-10.1) mg/dL Magnesium (1.8-2.4) mg/dL Ur Random Sodium 100.0 (40.0-220.0) mmol/L Result Diagrams: 09/24/20 05:33 09/24/20 05:33 Steve Results Last 24 hrs: Microbiology 09/21/20 02:00 Aerobic Blood Culture - Preliminary Blood - Venous - Lab Draw NO GROWTH AFTER 3 DAYS Anaerobic Blood Culture - Preliminary NO GROWTH AFTER 3 DAYS 09/21/20 01:50 Aerobic Blood Culture - Preliminary Blood - Venous NO GROWTH AFTER 3 DAYS Anaerobic Blood Culture - Preliminary NO GROWTH AFTER 3 DAYS 09/22/20 05:00 Clostridioides difficile (PCR) - Final Stool / Feces Sepsis Event Note - Focused Exam Vital Signs: Vital Signs Temp Pulse Pulse Resp BP BP Pulse Ox 09/24/20 12:00 36.3 C 88 20 133/74 97 09/24/20 08:15 81 116/77 09/24/20 08:00 36.6 C 81 18 116/77 95 09/24/20 04:00 36.8 C 86 18 122/68 96 - Problem List & Annotations (1) Severe sepsis SNOMED Code(s): 55926486 Code(s): A41.9 - SEPSIS, UNSPECIFIED ORGANISM; R65.20 - SEVERE SEPSIS WITHOUT SEPTIC SHOCK Status: Acute Current Visit: Yes (2) Colitis SNOMED Code(s): 03586332 Code(s): K52.9 - NONINFECTIVE GASTROENTERITIS AND COLITIS, UNSPECIFIED Status: Acute Current Visit: Yes - Plan Plan:: I have seen and evaluated the patient and agree with the residents note unless specified in my note
[2020-09-23] MEDS: LORazepam 2 MG/ML SDV IVPUSH PRN (15:58)
[2020-09-23] MEDS: HYDROmorphone 2 MG/ML Syringe IVPUSH PRN ×2 (18:32→22:55)
[2020-09-24] MEDS: Piperacillin/Tazobactam 3.375 GM in Sodium Chloride 0.9% 50 ML IV SCH (02:18)
[2020-09-24] MEDS: Albuterol/Ipratropium 4 GM Inhalation Spray INH SCH ×4 (02:27→14:29)
[2020-09-24] MEDS: HYDROmorphone 2 MG/ML Syringe IVPUSH PRN ×3 (03:10→12:52)
[2020-09-24] MEDS: Gabapentin 800 MG Tab PO SCH ×2 (05:39→12:05)
[2020-09-24] MEDS: Vancomycin 125 MG Cap PO SCH ×2 (05:39→12:04)
[2020-09-24] MEDS: Phosphorus #1 250 MG Tab PO SCH ×2 (05:39→12:05)
[2020-09-24 06:14] LABS: CARBON DIOXIDE,CO2 30.4 mmol/L (21.0-32.0); POTASSIUM,K 4.3 mmol/L (3.5-5.1)
[2020-09-24] MEDS ORDERED: predniSONE 10 MG Tab PO SCH (08:00)
[2020-09-24] MEDS: Metoprolol Tartrate 50 MG Tab PO SCH (08:15)
[2020-09-24] MEDS: Apixaban 5 MG Tab PO SCH (08:16)
[2020-09-24] MEDS: Pantoprazole 40 MG in Sodium Chloride 0.9% 10 ML IV SCH (08:17)
[2020-09-24] MEDS ORDERED: Sodium Chloride 0.9% 500 ML IV SCH (08:20)
[2020-09-24] MEDS: TIOTROPIUM BROMIDE 4 GM INH SCH (09:03)
--- NOTE | 2020-09-24 11:36 | PCM.DCSUM1 ---
<Kaz Fleming - Last Filed: 09/24/20 15:49> Discharge Summary - Hospital Course Free Text/Narrative:: 60-year-old gentleman with a history significant for bronchopulmonary aspergillosis, COPD on chronic steroids, pulmonary hypertension, atrial fibrillation on anticoagulation, CHF, chronic kidney disease, status post left nephrectomy, obstructive sleep apnea presented with worsening left upper and lower quadrant abdominal pain associated with nausea and vomiting. Patient denied any fever, chills, diarrhea, bloody stools. Patient states that he had his last meal last night when he had some chicken and after that he went to sleep in his usual health and he woke up around 6 AM with some abdominal discomfort and eventually started to throw up. Patient states that his pain started to get worse so he had to come to the ER. In the ER CT scan of the abdomen was done which showed possible colitis extending from splenic flexure to proximal sigmoid colon. Patient was found to be in severe sepsis in the ER, patient received IV fluids per sepsis protocol and blood cultures were obtained, patient received IV Zosyn and was admitted to the hospital for further management. ED copurse: Elevated Lactate; recieved IV fluids appropriately. CT abdomen pelvis : noin-specific colitis involving terminal ileum Hospital course: Repeat lactate has resolved Blood cultures negative Started IV Zosyn for broad-spectrum coverage; dicontinued on day 4 due to LIVAN and + C Difficile; of which PO vancomycin was inititiated Patinet was made n.p.o. and advanced diet to clear liquids then soft Throughout stay patient continued to improve and endorsed reducing levels of pain. Was having episodes of anxiety requiring as needed doses of 0.5 mg of Ativan. Of note patient was on his tapering dose of steroids from previous admission and was continued on p.o. prednisone 30 daily and at discharge was advised to continue his 20 mg daily of prednisone. IV Zosyn was discontinued and p.o. vancomycin was initiated due to positive PCR C. difficile. Patient does have a history of C. difficile and was treated in the past with good resolution. Endorse bowel movements frequency had reduced to 2 times on day of discharge and patient wanted/requested to be discharged. Patient was discharged in stable condition and advised to continue home steroid regimen, continue p.o. vancomycin x12 days, pantoprazole and home medications. Throughout stay patient also was oscillating between his CODE STATUS initially was DNR/DNI but returned back to full code. States that he returned back to full code because he would like to speak to his claims administrator about having a living trust/will prior to making his CODE STATUS change. Patient will have a thorough discussion about his CODE STATUS at follow-up. LIVAN: 1.6 on day of discharge. Patient was still anxious about discharge. Urine sodium 100 suggesting intrarenal injury; patient was advised to recheck his creatinine with his primary care; primary care set was scheduled for following day and prescription for repeat BMP was also given to patient. Patient creatinine most likely increased with use of Zosyn; Zosyn was discontinued and patient was continued on p.o. vancomycin. Patient was in stable condition. Patient does have a follow-up pulmonology in the following month of October 2020. Discharge condition: Stable Disposition Home with home health Home health resumed. Next line Follow-up: PCP, pulmonology. - Discharge Data Discharge Date: 09/24/20 Discharge Disposition: Home, W Home Health Agency 06 Condition: Stable - Referral to Home Health Date of Face to Face Encounter: 09/24/20 Reason for Homebound Status: chronic pain , Chronic lung disease; multiple hospitilizations w. deconditioning ; requires skilled services Primary Care Physician: Connor Melchor MD Skilled Need: Physical therapy. occupational therapy. strength and evaluate functiona lsafety at home - Discharge Diagnosis/Problem(s) (1) Colitis SNOMED Code(s): 55121035 ICD Code: K52.9 - NONINFECTIVE GASTROENTERITIS AND COLITIS, UNSPECIFIED Status: Acute (2) History of aspergillosis SNOMED Code(s): 609568604 ICD Code: Z86.19 - PERSONAL HISTORY OF OTHER INFECTIOUS AND PARASITIC DISEASES Status: Chronic Priority: High - Patient Instructions Diet: Heart Healthy Diet Notify Provider of: Fever, Swelling and Redness, Nausea and/or Vomiting Other/Special Instructions: PLEASE FOLLOW UP WITH YOUR PCP REGARDING YOUR KIDNEY /CREATININE LEVELS. A REPEAT LEVEL WILL BE ORDERED AND SENT TO YOUR PCP. - Discharge Plan *PRESCRIPTION DRUG MONITORING PROGRAM REVIEWED*: No *COPY OF PRESCRIPTION DRUG MONITORING REPORT IN PATIENT KECIA: No Prescriptions/Med Rec: predniSONE [Prednisone] 20 mg PO DAILY 14 Days #14 tablet Pantoprazole Sodium [Protonix] 40 mg PO DAILY 14 Days #14 tablet. Home Medications: Home Meds Apixaban [Eliquis] 5 mg PO BID tablet 07/21/18 [Rx] Metoprolol Tartrate [Lopressor] 50 mg PO BID tablet 07/21/18 [Rx] Albuterol [Proventil Neb Soln] 1 ampule NEB Q4HRRT 08/10/20 [History] Calcium Carbonate/Vitamin D3 [Oyster Shell Calcium-Vit D Tab] 1 each PO BID 08/10/20 [History] Fluticasone/Vilanterol [Breo Ellipta 200-25 MCG Inhalation Kit] 1 puff INH DAILY 08/10/20 [History] HYDROmorphone [Dilaudid] 4 mg PO Q4H PRN 08/10/20 [History] Testosterone 2 applic TD DAILY 08/10/20 [History] Tiotropium Jewell [Spiriva Respimat] 2 puff INH DAILY 09/14/20 [History] Gabapentin [Neurontin] 800 mg PO QID tablet 09/16/20 [Rx] Furosemide [Lasix] 40 mg PO DAILY 09/21/20 [History] Pantoprazole Sodium [Protonix] 40 mg PO DAILY 14 Days #14 tablet. 09/24/20 [Rx] Vancomycin [Vancocin 125 MG Capsule] 125 mg PO QID 12 Days #48 cap 09/24/20 [Rx] predniSONE [Prednisone] 20 mg PO DAILY 14 Days #14 tablet 09/24/20 [Rx] Oxygen Therapy Mode: Nasal Cannula Patient Handouts: Pantoprazole tablets, Colitis, Prednisone tablets Referrals: Connor Melchor MD [Primary Care Provider] - 09/29/20 8:30 am - Discharge Summary/Plan Comment DC Time >30 min.: No - Patient Data Vitals - Most Recent: Last Vital Signs Temp 97.9 F 09/24/20 08:00 Pulse 81 09/24/20 08:15 Resp 18 09/24/20 08:00 BP 116/77 09/24/20 08:15 Pulse Ox 95 09/24/20 08:00 Weight - Most Recent: 69.121 kg I&O - Last 24 hours: Intake & Output 09/23/20 09/24/20 09/24/20 22:59 06:59 14:59 Intake Total 440 880 Output Total 550 690 Balance -110 190 Lab Results - Last 24 hrs: Laboratory Results - last 24 hr 09/24/20 09/24/20 09/24/20 Range/Units 05:33 05:33 05:33 WBC 5.67 (4.0-11.0) K/uL RBC 3.88 L (4.50-5.90) M/uL Hgb 9.1 L (13.0-17.0) g/dL Hct 32.7 L (38.0-50.0) % MCV 84.3 (80.0-98.0) fL MCH 23.5 L (27.0-32.0) pg MCHC 27.8 L (31.0-37.0) g/dL RDW Std Deviation 58.6 (28.0-62.0) fl RDW Coeff of Tre 19 H (11.0-15.0) % Plt Count 198 (150-400) K/uL MPV 9.80 (7.40-12.00) fL Neut % (Auto) 69.7 (48.0-80.0) % Lymph % (Auto) 22.2 (16.0-40.0) % [place] % (Auto) 8.1 (0.0-15.0) % Eos % (Auto) 0.0 (0.0-7.0) % Baso % (Auto) 0.0 (0.0-1.5) % Neut # (Auto) 4.0 (1.4-5.7) K/uL Lymph # (Auto) 1.3 (0.6-2.4) K/uL [place] # (Auto) 0.5 (0.0-0.8) K/uL Eos # (Auto) 0.0 (0.0-0.7) K/uL Baso # (Auto) 0.0 (0.0-0.1) K/uL Nucleated RBC % 0.0 /100WBC Nucleated RBCs # 0 K/uL Sodium 145 (136-148) mmol/L Potassium 4.3 (3.5-5.1) mmol/L Chloride 107 (98-107) mmol/L Carbon Dioxide 30.4 (21.0-32.0) mmol/L BUN 24 H (7.0-18.0) mg/dL Creatinine 1.6 H (0.8-1.3) mg/dL Est Cr Clr Drug Dosing 37.92 mL/min Estimated GFR (MDRD) 44.3 ml/min Glucose 127 H (74-106) mg/dL Calcium 7.2 L (8.5-10.1) mg/dL Magnesium 2.1 (1.8-2.4) mg/dL SHILOH Results - Last 24 hrs: Microbiology 09/21/20 02:00 Aerobic Blood Culture - Preliminary Blood - Venous - Lab Draw NO GROWTH AFTER 3 DAYS Anaerobic Blood Culture - Preliminary NO GROWTH AFTER 3 DAYS 09/21/20 01:50 Aerobic Blood Culture - Preliminary Blood - Venous NO GROWTH AFTER 3 DAYS Anaerobic Blood Culture - Preliminary NO GROWTH AFTER 3 DAYS 09/22/20 05:00 Clostridioides difficile (PCR) - Final Stool / Feces Med Orders - Current: Current Medications Albuterol (Albuterol 0.083% 2.5 Mg/3 Ml Neb Soln) 2.5 mg NEB Q4HRRT PRN PRN Reason: Shortness of Breath Last Admin: 09/22/20 12:09 Dose: 2.5 mg Documented by: Albuterol/Ipratropium (Albuterol/Ipratropium 4 Gm Inhalation Husser) 0 gm INH Q4HRRT [facility] Last Admin: 09/24/20 09:04 Dose: 1 inhalation Documented by: Apixaban (Apixaban 5 Mg Tab) 5 mg PO BID [facility] Last Admin: 09/24/20 08:16 Dose: 5 mg Documented by: Gabapentin (Gabapentin 800 Mg Tab) 800 mg PO QID [facility] Last Admin: 09/24/20 05:39 Dose: 800 mg Documented by: Hydromorphone HCl (Hydromorphone 2 Mg/Ml Syringe) 2 mg IVPUSH Q4H PRN PRN Reason: Pain Last Admin: 09/24/20 07:19 Dose: 2 mg Documented by: Pantoprazole Sodium 40 mg/ (Sodium Chloride) 10 mls @ 300 mls/hr IV Q24H [facility] Last Admin: 09/24/20 08:17 Dose: 300 mls/hr Documented by: Sodium Chloride (Normal Saline) 500 mls @ 999 mls/hr IV STAT [facility] Last Admin: 09/24/20 08:48 Dose: 999 mls/hr Documented by: Lorazepam (Lorazepam 2 Mg/Ml Sdv) 0.5 mg IVPUSH Q8H PRN PRN Reason: Anxiety Last Admin: 09/23/20 15:58 Dose: 0.5 mg Documented by: Metoprolol Tartrate (Metoprolol Tartrate 50 Mg Tab) 50 mg PO BID [facility] Last Admin: 09/24/20 08:15 Dose: 50 mg Documented by: Ondansetron HCl (Ondansetron 4 Mg/2 Ml Sdv) 4 mg IVPUSH Q4H PRN PRN Reason: Nausea Prednisone (Prednisone 10 Mg Tab) 30 mg PO WITHBREAKFAST [facility] Last Admin: 09/24/20 08:15 Dose: 30 mg Documented by: Sodium Chloride (Sodium Chloride 0.9% 10 Ml Syringe) 10 ml FLUSH ASDIRECTED PRN PRN Reason: Keep Vein Open Sodium Chloride (Sodium Chloride 0.9% 2.5 Ml Syringe) 2.5 ml FLUSH ASDIRECTED PRN PRN Reason: Keep Vein Open Sodium Phosphate (Phosphorus #1 250 Mg Tab) 250 mg PO QID [facility] Last Admin: 09/24/20 05:39 Dose: 250 mg Documented by: Tiotropium Jewell (Tiotropium Jewell [Spiriva Respimat] 4gm) 18 mcg INH DAILY [facility] Last Admin: 09/24/20 09:03 Dose: 1 cap Documented by: Vancomycin HCl (Vancomycin 125 Mg Cap) 125 mg PO QID [facility] Last Admin: 09/24/20 05:39 Dose: 125 mg Documented by: Discontinued Medications Albuterol/Ipratropium (Albuterol/Ipratropium 4 Gm Inhalation Husser) 0 gm INH Q4H PRN PRN Reason: Dyspnea Albuterol/Ipratropium (Albuterol/Ipratropium 4 Gm Inhalation Husser) 0 gm INH Q4H [facility] Last Admin: 09/22/20 13:30 Dose: Not Given Documented by: Enoxaparin Sodium (Enoxaparin 40 Mg/0.4 Ml Syringe) 40 mg SUBCUT Q24H [facility] Last Admin: 09/21/20 08:24 Dose: 40 mg Documented by: Hydromorphone HCl (Hydromorphone 1 Mg/Ml Syringe) 1 mg IVPUSH Q4H PRN PRN Reason: Pain Last Admin: 09/23/20 01:27 Dose: 1 mg Documented by: Hydromorphone HCl (Hydromorphone 1 Mg/Ml Syringe) 2 mg IVPUSH Q4H PRN PRN Reason: Pain Last Admin: 09/23/20 14:06 Dose: 2 mg Documented by: Pantoprazole Sodium 40 mg/ (Sodium Chloride) 10 mls @ 300 mls/hr IV NOW ONE Stop: 09/21/20 00:47 Last Admin: 09/21/20 00:55 Dose: 300 mls/hr Documented by: Sodium Chloride (Normal Saline) 1,000 mls @ 999 mls/hr IV .Bolus ONE Stop: 09/21/20 02:28 Last Admin: 09/21/20 02:03 Dose: 999 mls/hr Documented by: Sodium Chloride (Normal Saline) 1,000 mls @ 650 mls/hr IV .Bolus ONE Stop: 09/21/20 03:00 Last Admin: 09/21/20 02:51 Dose: 650 mls/hr Documented by: Levofloxacin/Dextrose 750 mg/ (Premix) 150 mls @ 100 mls/hr IV ONETIME ONE Stop: 09/21/20 02:58 Last Admin: 09/21/20 02:52 Dose: Not Given Documented by: Metronidazole 500 mg/ Premix 100 mls @ 100 mls/hr IV ONETIME ONE Stop: 09/21/20 02:30 Last Admin: 09/21/20 02:03 Dose: 100 mls/hr Documented by: Levofloxacin/Dextrose (Levaquin In D5w 750 Mg/150 Ml) Confirm Administered Dose 150 mls @ as directed IV .STK-MED ONE Stop: 09/21/20 01:33 Last Admin: 09/21/20 01:44 Dose: Not Given Documented by: Metronidazole (Flagyl In Ns 500 Mg/100 Ml) Confirm Administered Dose 100 mls @ as directed .ROUTE .STK-MED ONE Stop: 09/21/20 01:33 Last Admin: 09/21/20 01:43 Dose: Not Given Documented by: Piperacillin Sod/Tazobactam (Sod 4.5 gm/ Sodium Chloride) 100 mls @ 100 mls/hr IV ONETIME ONE Stop: 09/21/20 03:16 Last Admin: 09/21/20 02:51 Dose: 100 mls/hr Documented by: Piperacillin Sod/Tazobactam (Sod 3.375 gm/ Sodium Chloride) 50 mls @ 100 mls/hr IV Q8H [facility] Last Admin: 09/24/20 02:18 Dose: 100 mls/hr Documented by: Lactated Ringer's (Ringers, Lactated) 1,000 mls @ 125 mls/hr IV ASDIRECTED [facility] Last Admin: 09/21/20 07:03 Dose: 125 mls/hr Documented by: Lactated Ringer's (Ringers, Lactated) 500 mls @ 500 mls/hr IV ONETIME ONE Stop: 09/21/20 20:37 Last Admin: 09/21/20 20:20 Dose: 500 mls/hr Documented by: Iopamidol (Iopamidol 755 Mg/Ml 500 Ml Multipack Bottle) 100 ml IVPUSH ONETIME STA Stop: 09/21/20 01:55 Last Admin: 09/21/20 01:54 Dose: 100 ml Documented by: Lorazepam (Lorazepam 2 Mg/Ml Sdv) 0.5 mg IVPUSH ONETIME ONE Stop: 09/21/20 02:22 Last Admin: 09/21/20 02:51 Dose: 0.5 mg Documented by: Lorazepam (Lorazepam 2 Mg/Ml Sdv) 1 mg IVPUSH ONETIME ONE Stop: 09/22/20 00:12 Last Admin: 09/22/20 00:57 Dose: 1 mg Documented by: Lorazepam (Lorazepam 2 Mg/Ml Sdv) 0.5 mg IVPUSH ONETIME ONE Stop: 09/22/20 18:25 Last Admin: 09/22/20 18:56 Dose: 0.5 mg Documented by: Methylprednisolone Sodium Succinate (Methylprednisolone Sodium Succinate 40 Mg/1 Ml Sdv) 40 mg IVPUSH DAILY [facility] Last Admin: 09/23/20 08:48 Dose: 40 mg Documented by: Metoclopramide HCl (Metoclopramide 10 Mg/2 Ml Sdv) 10 mg IVPUSH ONETIME ONE Stop: 09/21/20 00:51 Last Admin: 09/21/20 00:59 Dose: 10 mg Documented by: Morphine Sulfate (Morphine 4 Mg/Ml Syringe) 4 mg IVPUSH ONETIME ONE Stop: 09/21/20 00:50 Last Admin: 09/21/20 00:59 Dose: 4 mg Documented by: Morphine Sulfate (Morphine 2 Mg/Ml Syringe) 1 mg IVPUSH Q4H PRN PRN Reason: Pain Last Admin: 09/22/20 08:43 Dose: 1 mg Documented by: Tiotropium Jewell [ Spiriva Respimat] 4gm 2 each INH DAILY [facility] Last Admin: 09/22/20 09:26 Dose: Not Given Documented by: Prednisone (Prednisone 20 Mg Tab) 40 mg PO DAILY [facility] Last Admin: 09/22/20 08:50 Dose: 40 mg Documented by: Fluticasone/Salmeterol (Fluticasone/Salmeterol 250-50 Mcg Inhalation Powder 14/Diskus) 1 puff INH ONETIME ONE Stop: 09/22/20 11:33 Last Admin: 09/22/20 12:09 Dose: 1 inhalation Documented by: <Pavan Arias - Last Filed: 09/25/20 21:36> Discharge Summary - Hospital Course Free Text/Narrative:: I have seen and evaluated the patient and agree with the residents note unless s pecified in my note - Referral to Home Health Primary Care Physician: Connor Melchor MD - Discharge Diagnosis/Problem(s) (1) Severe sepsis SNOMED Code(s): 77663273 ICD Code: A41.9 - SEPSIS, UNSPECIFIED ORGANISM; R65.20 - SEVERE SEPSIS WITHOUT SEPTIC SHOCK Status: Acute (2) Colitis SNOMED Code(s): 98063409 ICD Code: K52.9 - NONINFECTIVE GASTROENTERITIS AND COLITIS, UNSPECIFIED Status: Acute - Patient Data Vitals - Most Recent: Last Vital Signs Temp 36.3 C 09/24/20 12:00 Pulse 88 09/24/20 12:00 Resp 20 09/24/20 12:00 BP 133/74 09/24/20 12:00 Pulse Ox 97 09/24/20 12:00 SHILOH Results - Last 24 hrs: Microbiology 09/21/20 02:00 Aerobic Blood Culture - Preliminary Blood - Venous - Lab Draw NO GROWTH AFTER 4 DAYS Anaerobic Blood Culture - Preliminary NO GROWTH AFTER 4 DAYS 09/21/20 01:50 Aerobic Blood Culture - Preliminary Blood - Venous NO GROWTH AFTER 4 DAYS Anaerobic Blood Culture - Preliminary NO GROWTH AFTER 4 DAYS Med Orders - Current: Current Medications Discontinued Medications Albuterol (Albuterol 0.083% 2.5 Mg/3 Ml Neb Soln) 2.5 mg NEB Q4HRRT PRN PRN Reason: Shortness of Breath Last Admin: 09/22/20 12:09 Dose: 2.5 mg Documented by: Albuterol/Ipratropium (Albuterol/Ipratropium 4 Gm Inhalation Husser) 0 gm INH Q4H PRN PRN Reason: Dyspnea Albuterol/Ipratropium (Albuterol/Ipratropium 4 Gm Inhalation Husser) 0 gm INH Q4H [facility] Last Admin: 09/22/20 13:30 Dose: Not Given Documented by: Albuterol/Ipratropium (Albuterol/Ipratropium 4 Gm Inhalation Husser) 0 gm INH Q4HRRT [facility] Last Admin: 09/24/20 14:29 Dose: 1 inhalation Documented by: Apixaban (Apixaban 5 Mg Tab) 5 mg PO BID [facility] Last Admin: 09/24/20 08:16 Dose: 5 mg Documented by: Enoxaparin Sodium (Enoxaparin 40 Mg/0.4 Ml Syringe) 40 mg SUBCUT Q24H [facility] Last Admin: 09/21/20 08:24 Dose: 40 mg Documented by: Gabapentin (Gabapentin 800 Mg Tab) 800 mg PO QID [facility] Last Admin: 09/24/20 12:05 Dose: 800 mg Documented by: Hydromorphone HCl (Hydromorphone 1 Mg/Ml Syringe) 1 mg IVPUSH Q4H PRN PRN Reason: Pain Last Admin: 09/23/20 01:27 Dose: 1 mg Documented by: Hydromorphone HCl (Hydromorphone 1 Mg/Ml Syringe) 2 mg IVPUSH Q4H PRN PRN Reason: Pain Last Admin: 09/23/20 14:06 Dose: 2 mg Documented by: Hydromorphone HCl (Hydromorphone 2 Mg/Ml Syringe) 2 mg IVPUSH Q4H PRN PRN Reason: Pain Last Admin: 09/24/20 12:52 Dose: 2 mg Documented by: Pantoprazole Sodium 40 mg/ (Sodium Chloride) 10 mls @ 300 mls/hr IV NOW ONE Stop: 09/21/20 00:47 Last Admin: 09/21/20 00:55 Dose: 300 mls/hr Documented by: Sodium Chloride (Normal Saline) 1,000 mls @ 999 mls/hr IV .Bolus ONE Stop: 09/21/20 02:28 Last Admin: 09/21/20 02:03 Dose: 999 mls/hr Documented by: Sodium Chloride (Normal Saline) 1,000 mls @ 650 mls/hr IV .Bolus ONE Stop: 09/21/20 03:00 Last Admin: 09/21/20 02:51 Dose: 650 mls/hr Documented by: Levofloxacin/Dextrose 750 mg/ (Premix) 150 mls @ 100 mls/hr IV ONETIME ONE Stop: 09/21/20 02:58 Last Admin: 09/21/20 02:52 Dose: Not Given Documented by: Metronidazole 500 mg/ Premix 100 mls @ 100 mls/hr IV ONETIME ONE Stop: 09/21/20 02:30 Last Admin: 09/21/20 02:03 Dose: 100 mls/hr Documented by: Levofloxacin/Dextrose (Levaquin In D5w 750 Mg/150 Ml) Confirm Administered Dose 150 mls @ as directed IV .STK-MED ONE Stop: 09/21/20 01:33 Last Admin: 09/21/20 01:44 Dose: Not Given Documented by: Metronidazole (Flagyl In Ns 500 Mg/100 Ml) Confirm Administered Dose 100 mls @ as directed .ROUTE .STK-MED ONE Stop: 09/21/20 01:33 Last Admin: 09/21/20 01:43 Dose: Not Given Documented by: Piperacillin Sod/Tazobactam (Sod 4.5 gm/ Sodium Chloride) 100 mls @ 100 mls/hr IV ONETIME ONE Stop: 09/21/20 03:16 Last Admin: 09/21/20 02:51 Dose: 100 mls/hr Documented by: Pantoprazole Sodium 40 mg/ (Sodium Chloride) 10 mls @ 300 mls/hr IV Q24H [facility] Last Admin: 09/24/20 08:17 Dose: 300 mls/hr Documented by: Piperacillin Sod/Tazobactam (Sod 3.375 gm/ Sodium Chloride) 50 mls @ 100 mls/hr IV Q8H [facility] Last Admin: 09/24/20 02:18 Dose: 100 mls/hr Documented by: Lactated Ringer's (Ringers, Lactated) 1,000 mls @ 125 mls/hr IV ASDIRECTED [facility] Last Admin: 09/21/20 07:03 Dose: 125 mls/hr Documented by: Lactated Ringer's (Ringers, Lactated) 500 mls @ 500 mls/hr IV ONETIME ONE Stop: 09/21/20 20:37 Last Admin: 09/21/20 20:20 Dose: 500 mls/hr Documented by: Sodium Chloride (Normal Saline) 500 mls @ 999 mls/hr IV STAT [facility] Last Admin: 09/24/20 08:48 Dose: 999 mls/hr Documented by: Iopamidol (Iopamidol 755 Mg/Ml 500 Ml Multipack Bottle) 100 ml IVPUSH ONETIME STA Stop: 09/21/20 01:55 Last Admin: 09/21/20 01:54 Dose: 100 ml Documented by: Lorazepam (Lorazepam 2 Mg/Ml Sdv) 0.5 mg IVPUSH ONETIME ONE Stop: 09/21/20 02:22 Last Admin: 09/21/20 02:51 Dose: 0.5 mg Documented by: Lorazepam (Lorazepam 2 Mg/Ml Sdv) 1 mg IVPUSH ONETIME ONE Stop: 09/22/20 00:12 Last Admin: 09/22/20 00:57 Dose: 1 mg Documented by: Lorazepam (Lorazepam 2 Mg/Ml Sdv) 0.5 mg IVPUSH Q8H PRN PRN Reason: Anxiety Last Admin: 09/23/20 15:58 Dose: 0.5 mg Documented by: Lorazepam (Lorazepam 2 Mg/Ml Sdv) 0.5 mg IVPUSH ONETIME ONE Stop: 09/22/20 18:25 Last Admin: 09/22/20 18:56 Dose: 0.5 mg Documented by: Methylprednisolone Sodium Succinate (Methylprednisolone Sodium Succinate 40 Mg/1 Ml Sdv) 40 mg IVPUSH DAILY [facility] Last Admin: 09/23/20 08:48 Dose: 40 mg Documented by: Metoclopramide HCl (Metoclopramide 10 Mg/2 Ml Sdv) 10 mg IVPUSH ONETIME ONE Stop: 09/21/20 00:51 Last Admin: 09/21/20 00:59 Dose: 10 mg Documented by: Metoprolol Tartrate (Metoprolol Tartrate 50 Mg Tab) 50 mg PO BID [facility] Last Admin: 09/24/20 08:15 Dose: 50 mg Documented by: Morphine Sulfate (Morphine 4 Mg/Ml Syringe) 4 mg IVPUSH ONETIME ONE Stop: 09/21/20 00:50 Last Admin: 09/21/20 00:59 Dose: 4 mg Documented by: Morphine Sulfate (Morphine 2 Mg/Ml Syringe) 1 mg IVPUSH Q4H PRN PRN Reason: Pain Last Admin: 09/22/20 08:43 Dose: 1 mg Documented by: Ondansetron HCl (Ondansetron 4 Mg/2 Ml Sdv) 4 mg IVPUSH Q4H PRN PRN Reason: Nausea Tiotropium Jewell [ Spiriva Respimat] 4gm 2 each INH DAILY [facility] Last Admin: 09/22/20 09:26 Dose: Not Given Documented by: Prednisone (Prednisone 20 Mg Tab) 40 mg PO DAILY [facility] Last Admin: 09/22/20 08:50 Dose: 40 mg Documented by: Prednisone (Prednisone 10 Mg Tab) 30 mg PO WITHBREAKFAST [facility] Last Admin: 09/24/20 08:15 Dose: 30 mg Documented by: Fluticasone/Salmeterol (Fluticasone/Salmeterol 250-50 Mcg Inhalation Powder 14/Diskus) 1 puff INH ONETIME ONE Stop: 09/22/20 11:33 Last Admin: 09/22/20 12:09 Dose: 1 inhalation Documented by: Sodium Chloride (Sodium Chloride 0.9% 10 Ml Syringe) 10 ml FLUSH ASDIRECTED PRN PRN Reason: Keep Vein Open Sodium Chloride (Sodium Chloride 0.9% 2.5 Ml Syringe) 2.5 ml FLUSH ASDIRECTED PRN PRN Reason: Keep Vein Open Sodium Phosphate (Phosphorus #1 250 Mg Tab) 250 mg PO QID [facility] Last Admin: 09/24/20 12:05 Dose: 250 mg Documented by: Tiotropium Jewell (Tiotropium Jewell [Spiriva Respimat] 4gm) 18 mcg INH DAILY [facility] Last Admin: 09/24/20 09:03 Dose: 1 cap Documented by: Vancomycin HCl (Vancomycin 125 Mg Cap) 125 mg PO QID [facility] Last Admin: 09/24/20 12:04 Dose: 125 mg Documented by:
[2020-09-24 12:04] VITALS: BP 133/74; PULSE 88
== END 2020-09-24 17:00 | disposition home health service (06) | DRG 871 ==
LOC: MW.ED 00:14 → MW.MS 04:12
PROVIDERS: ADMIT Student in an Organized Health Care Education/Training Program; ATTEND Student in an Organized Health Care Education/Training Program
DX: A41.9 Sepsis, unspecified organism (principal); K85.90 Acute pancreatitis without necrosis or infection, unspecified; D84.9 Immunodeficiency, unspecified; I13.0 Hypertensive heart and chronic kidney disease with heart failure and stage 1 through stage 4 chronic kidney disease, or unspecified chronic kidney disease; I11.0 Hypertensive heart disease with heart failure; N17.9 Acute kidney failure, unspecified; I42.9 Cardiomyopathy, unspecified; K86.1 Other chronic pancreatitis; Z86.711 Personal history of pulmonary embolism; R65.20 Severe sepsis without septic shock; K52.9 Noninfective gastroenteritis and colitis, unspecified; N28.9 Disorder of kidney and ureter, unspecified; I50.9 Heart failure, unspecified; I48.91 Unspecified atrial fibrillation; J44.9 Chronic obstructive pulmonary disease, unspecified; K57.90 Diverticulosis of intestine, part unspecified, without perforation or abscess without bleeding; N40.0 Benign prostatic hyperplasia without lower urinary tract symptoms; Z66 Do not resuscitate; Z20.822 Contact with and (suspected) exposure to COVID-19; F41.9 Anxiety disorder, unspecified; F32.9 Major depressive disorder, single episode, unspecified; M81.0 Age-related osteoporosis without current pathological fracture; G62.9 Polyneuropathy, unspecified; D63.1 Anemia in chronic kidney disease; M10.9 Gout, unspecified; K21.9 Gastro-esophageal reflux disease without esophagitis; M19.90 Unspecified osteoarthritis, unspecified site; M54.9 Dorsalgia, unspecified; G89.29 Other chronic pain; Z96.619 Presence of unspecified artificial shoulder joint; I27.20 Pulmonary hypertension, unspecified; N18.9 Chronic kidney disease, unspecified; G47.33 Obstructive sleep apnea (adult) (pediatric); Z88.1 Allergy status to other antibiotic agents; Z88.8 Allergy status to other drugs, medicaments and biological substances; Z79.52 Long term (current) use of systemic steroids; Z79.899 Other long term (current) drug therapy; I25.2 Old myocardial infarction; Z87.01 Personal history of pneumonia (recurrent); Z79.01 Long term (current) use of anticoagulants; Z86.73 Personal history of transient ischemic attack (TIA), and cerebral infarction without residual deficits; Z87.442 Personal history of urinary calculi; Z98.49 Cataract extraction status, unspecified eye; Z85.820 Personal history of malignant melanoma of skin; Z86.19 Personal history of other infectious and parasitic diseases; Z85.07 Personal history of malignant neoplasm of pancreas
CPT/HCPCS: 36415; 74177; 80053; 81003; 83605 ×2; 83690; 85025; 87040 ×2; 96365; 96367; 96375; 99285; C9113; J2060; J2270; J2543; J2765; J3490; J7030 ×2; Q9967; U0002; 80048; 82272; 83735; 84100; 84300; 85014; 85018; 87324; 87493; 94640; 94664; 99221; 99232; 99238; 99284; A9270-GY; J1170; J1650; J1956; J2920; J7040; J7120

== ENCOUNTER 2020-12-03 15:13 | Emergency (ER) | payer MEDICARE, OTHER ==
[2020-12-03] MEDS ORDERED: Sodium Chloride 0.9% 10 ML Syringe FLUSH PRN (15:22)
[2020-12-03] MEDS ORDERED: Sodium Chloride 0.9% 10 ML SDV IV PRN (15:22)
[2020-12-03] MEDS ORDERED: Sodium Chloride 0.9% 2.5 ML Syringe FLUSH PRN (15:22)
[2020-12-03] MEDS ORDERED: Naloxone 0.4 MG/ML SDV IVPUSH ONE ×2 (15:48→16:11)
[2020-12-03] MEDS ORDERED: Naloxone 0.4 MG/ML Syringe ONE ×2 (15:50→16:08)
--- NOTE | 2020-12-03 15:56 | CT ---
Indication: Recent surgery, unresponsiveness and stroke code Technique: Volumetric multidetector CT images of the head were obtained without the administration of low osmolar intravenous contrast. Comparison: CT head November 20, 2020 Findings: There is no intra-axial or extra-axial fluid collection. There is no mass effect or midline shift. There is age-related cortical atrophy with mild sulcal widening and ex vacuo dilatation of the lateral ventricles. There are chronic small vessel disease changes in the subcortical and periventricular white matter without lost moise-white differentiation. The orbits and their contents are grossly within normal limits. The bony calvarium is grossly intact. There is minimal mucosal thickening seen within the right paranasal sinus otherwise the paranasal sinuses are clear. The mastoid air cells are well aerated. Impression: Age-related and chronic small-vessel disease changes of the brain without acute intracranial abnormality. Findings were faxed to and confirmed received by Dr. Clarke at 3: p.m. December 03, [address] Please note that all CT scans at this facility use dose modulation, iterative reconstruction, and/or weight-based dosing when appropriate to reduce radiation dose to as low as reasonably achievable. Dictated by Sudhir Blair MD @ 12/03/2020 3:55:[address] Sudhir Blair @ Dec 03 2020 3:55PM
--- NOTE | 2020-12-03 16:07 | EDM.PDOC ---
ED HPI GENERAL MEDICAL PROBLEM - General Chief Complaint: Neuro Symptoms/Deficits Stated Complaint: stroke Time Seen by Provider: 12/03/20 15:26 Source of Information: Reports: Patient History Limitations: Reports: No Limitations - History of Present Illness INITIAL COMMENTS - FREE TEXT/NARRATIVE: Patient is a 60-year-old male brought in by his father for altered mental status. He states his last saw him around 12 PM appointment to work he had a friend come over and when he got there the friend states that the patient seemed sleepy and difficult to arouse and he took his blood pressure knows of blood pressure is also very low; they were able to get the patient in the car and bring him to the ED. In the day patient was difficult to arouse and now responding to verbal or painful stimuli. Patient was given a small dose of Narcan and became awake and alert. Patient does take Dilaudid at home but father states he did not take any more dialyzed and he normally takes. Patient again fell back asleep give second point for Dilaudid and patient did not leave at this time. - Related Data Allergies Allergy/AdvReac Type Severity Reaction Status Date / Time itraconazole [From Sporanox] Allergy Unknown Confusion Verified 12/03/20 15:27 levofloxacin [From Levaquin] Allergy Unknown Other Verified 12/03/20 15:27 meropenem Allergy Swelling Verified 12/03/20 15:27 Home Meds: Home Meds Apixaban [Eliquis] 5 mg PO BID tablet 07/21/18 [Rx] Metoprolol Tartrate [Lopressor] 50 mg PO BID tablet 07/21/18 [Rx] Fluticasone/Vilanterol [Breo Ellipta 200-25 MCG Inhalation Kit] 1 puff INH DAILY 08/10/20 [History] HYDROmorphone [Dilaudid] 4 mg PO Q4H PRN 08/10/20 [History] Testosterone 100 mg TD DAILY 08/10/20 [History] Tiotropium [place] [Spiriva Respimat] 2 puff INH DAILY 09/14/20 [History] Gabapentin [Neurontin] 800 mg PO QID tablet 09/16/20 [Rx] Furosemide [Lasix] 40 mg PO DAILY PRN 09/21/20 [History] Pantoprazole Sodium [Protonix] 40 mg PO DAILY 14 Days #14 tablet. 09/24/20 [Rx] predniSONE [Prednisone] 20 mg PO DAILY 14 Days #14 tablet 09/24/20 [Rx] Omeprazole 40 mg PO ACBREAKFAST 11/21/20 [History] Potassium Chloride [Klor-Con M10] 10 meq PO DAILY 11/21/20 [History] Pharmacy to Dose - Vancomycin 1 dose .XX ASDIRECTED each 11/24/20 [Rx] Piperacillin/Tazobactam [Piperacil-Tazobact] 3.375 gm IV Q8H adv 11/24/20 [Rx] Vancomycin [Vancocin] 1 gm IV Q24H adv 11/24/20 [Rx] methylPREDNISolone Sod Succ [Solu-MEDROL] 40 mg IVPUSH Q8H sdv 11/24/20 [Rx] Past Medical History HEENT History: Reports: Cataract Other HEENT History: dental fillings due to caries; recent tooth fracture Cardiovascular History: Reports: Afib, Cardiomyopathy, Heart Failure, Hypertension, MD Other Cardiovascular History: Heart attack April 2010, Pulmonary embolism 2009 Respiratory History: Reports: Asthma, Bronchitis, Recurrent, COPD, PE, Pneumonia, Recurrent, Other (See Below) Other Respiratory History: Chronic pulmonary aspergillosis, 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 on 02 at home - 2liters at daytime, 4 liters at bedtimeper nasal cannula Gastrointestinal History: Reports: Diverticulosis, GERD, Other (See Below) Other Gastrointestinal History: diverticulitis, peristalisis diagnosed with egd 2 weeks ago Genitourinary History: Reports: BPH, Renal Calculus, Renal Disease, UTI, Recurrent Other Genitourinary History: Left nephrectomy Musculoskeletal History: Reports: Arthritis, Back Pain, Chronic, Gout, Osteoporosis, RA, Other (See Below) Other Musculoskeletal History: lumbar fracture, rotator cap syndrome, bilateral feet fracture, osteomyelitis; hammer toes, elbow strain. bilateral achilles tendon ruptures and repair., hip replacement, removal of left humerous, reverse right shoulder replacement Neurological History: Reports: Neuropathy, Peripheral, TIA Other Neuro History: TIA 1999 Psychiatric History: Reports: Anxiety, Depression Endocrine/Metabolic History: Reports: Osteoporosis Hematologic History: Reports: Anticoagulation Therapy Immunologic History: Reports: Immunosuppression Oncologic (Cancer) History: Reports: Other (See Below) Other Oncologic History: melanoma of the right eye Dermatologic History: Reports: Cellulitis, Melanoma, Other (See Below) Other Dermatologic History: melanoma in the eye, nursing home steroid use - Infectious Disease History Infectious Disease History: Reports: Chicken Pox, Measles Other Infectious Disease History: 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 No explantation--they apparently just treated him with IV abx for months. - Past Surgical History Head Surgeries/Procedures: Reports: None HEENT Surgical History: Reports: Cataract Surgery Cardiovascular Surgical History: Reports: None Respiratory Surgical History: Reports: Lung Resection Other Respiratory Surgeries/Procedures: intubated last Feb 2018 and transfered to [facility] Surgical History: Reports: Colonoscopy Other GI Surgeries/Procedures: colostomy and reversal 20yrs ago Male Surgical History: Reports: None Endocrine Surgical History: Reports: None Neurological Surgical History: Reports: None Musculoskeletal Surgical History: Reports: Amputation, Shoulder Surgery, Other (See Below) Other Musculoskeletal Surgeries/Procedures:: L shoulder and left hip surgery. 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 with sx february 2020 Oncologic Surgical History: Reports: None Dermatological Surgical History: Reports: None Social & Family History - Family History Family Medical History: No Pertinent Family History - Tobacco Use Tobacco Use Status *Q: Unknown Ever Used Tobacco - Caffeine Use Caffeine Use: Reports: Coffee Other Caffeine Use: occasional coffee - Recreational Drug Use Recreational Drug Use: No - Living Situation & Occupation Living situation: Reports: Single, with Family (sons) Occupation: Disabled ED ROS GENERAL - Review of Systems Review Of Systems: Unable To Obtain Reason Not Obtained: AMS ED EXAM, NEURO - Physical Exam Exam: See Below Exam Limited By: Altered Mental Status General Appearance: Obtunded Eye Exam: Bilateral Eye: PERRL Neck: Normal Inspection, Supple Respiratory/Chest: No Respiratory Distress, Lungs Clear, Normal Breath Sounds Cardiovascular: Normal Peripheral Pulses, Regular Rate, Rhythm GI/Abdominal: Normal Bowel Sounds, Soft, Non-Tender Neurological: No Response to Pain #1 Interpretation EKG Date: 12/03/20 Time: 15:38 Rhythm: NSR Rate (Beats/Min): 85 ST-T: Normal Course - Vital Signs Last Recorded V/S: Last Vital Signs Temp Pulse 88 12/03/20 19:47 Resp 20 12/03/20 19:47 BP 101/70 12/03/20 19:47 Pulse Ox 93 L 12/03/20 19:47 - Orders/Labs/Meds Labs: Laboratory Tests 12/03/20 12/03/20 12/03/20 Range/Units 15:18 15:48 15:48 WBC 15.18 H (4.0-11.0) K/uL RBC 4.04 L (4.50-5.90) M/uL Hgb 9.1 L (13.0-17.0) g/dL Hct 33.6 L (38.0-50.0) % MCV 83.2 (80.0-98.0) fL MCH 22.5 L (27.0-32.0) pg MCHC 27.1 L (31.0-37.0) g/dL RDW Std Deviation 57.7 (28.0-62.0) fl RDW Coeff of Tre 19 H (11.0-15.0) % Plt Count 418 H (150-400) K/uL MPV 9.40 (7.40-12.00) fL Add Manual Diff YES Neutrophils % (Manual) 76 (48.0-80.0) % Band Neutrophils % 3 % Lymphocytes % (Manual) 18 (16.0-40.0) % Monocytes % (Manual) 2 (0.0-15.0) % Metamyelocytes % 1 % Nucleated RBC % 0.3 /100WBC Absolute Seg Neuts 11.5 H (1.4-5.7) Band Neutrophils # 0.5 Lymphocytes # (Manual) 2.7 H (0.6-2.4) Monocytes # (Manual) 0.3 (0.0-0.8) Absolute Metamyelocyte 0.2 Nucleated RBCs # 0 K/uL INR 1.03 APTT 21.8 (18.6-31.3) SEC ABG pH (7.35-7.45) ABG pCO2 (35-45) mmHG ABG pO2 (80-105) mmHG ABG HCO3 (22-26) mEq/L ABG Total CO2 (23-27) mmol/L ABG Base Excess (-2.0-3.0) Sodium 144 (136-148) mmol/L Potassium 4.4 (3.5-5.1) mmol/L Chloride 101 (98-107) mmol/L Carbon Dioxide 36.2 H (21.0-32.0) mmol/L BUN 47 H (7.0-18.0) mg/dL Creatinine 1.7 H (0.8-1.3) mg/dL Est Cr Clr Drug Dosing 44.71 mL/min Estimated GFR (MDRD) 41.3 ml/min Glucose 171 H (74-106) mg/dL Calcium 7.4 L (8.5-10.1) mg/dL Total Bilirubin 0.3 (0.2-1.0) mg/dL AST 20 (15-37) IU/L ALT 23 (14-63) IU/L Alkaline Phosphatase 39 L (46-116) U/L Troponin I < 0.050 (0.000-0.056) ng/mL Total Protein 5.9 L (6.4-8.2) g/dL Albumin 2.3 L (3.4-5.0) g/dL Globulin 3.6 (2.6-4.0) g/dL Albumin/Globulin Ratio 0.6 L (0.9-1.6) Urine Color Urine Appearance Urine pH (5.0-8.0) Ur Specific [place] (1.001-1.035) Urine Protein (NEGATIVE) mg/dL Urine Glucose (UA) (NEGATIVE) mg/dL Urine Ketones (NEGATIVE) mg/dL Urine Occult Blood (NEGATIVE) Urine Nitrite (NEGATIVE) Urine Bilirubin (NEGATIVE) Urine Urobilinogen (<2.0) EU/dL Ur Leukocyte Esterase (NEGATIVE) Urine Opiates Screen (NEGATIVE) Ur Oxycodone Screen (NEGATIVE) Urine Methadone Screen (NEGATIVE) Ur Barbiturates Screen (NEGATIVE) Ur Phencyclidine Scrn (NEGATIVE) Ur Amphetamine Screen (NEGATIVE) U Methamphetamines Scrn (NEGATIVE) U Benzodiazepines Scrn (NEGATIVE) U Cocaine Metab Screen (NEGATIVE) U Marijuana (THC) Screen (NEGATIVE) Ethyl Alcohol <3 mg/dL 12/03/20 12/03/20 12/03/20 Range/Units 16:20 16:32 16:32 WBC (4.0-11.0) K/uL RBC (4.50-5.90) M/uL Hgb (13.0-17.0) g/dL Hct (38.0-50.0) % MCV (80.0-98.0) fL MCH (27.0-32.0) pg MCHC (31.0-37.0) g/dL RDW Std Deviation (28.0-62.0) fl RDW Coeff of Tre (11.0-15.0) % Plt Count (150-400) K/uL MPV (7.40-12.00) fL Add Manual Diff Neutrophils % (Manual) (48.0-80.0) % Band Neutrophils % % Lymphocytes % (Manual) (16.0-40.0) % Monocytes % (Manual) (0.0-15.0) % Metamyelocytes % % Nucleated RBC % /100WBC Absolute Seg Neuts (1.4-5.7) Band Neutrophils # Lymphocytes # (Manual) (0.6-2.4) Monocytes # (Manual) (0.0-0.8) Absolute Metamyelocyte Nucleated RBCs # K/uL INR APTT (18.6-31.3) SEC ABG pH 7.37 (7.35-7.45) ABG pCO2 67 H (35-45) mmHG ABG pO2 180 H (80-105) mmHG ABG HCO3 39 H (22-26) mEq/L ABG Total CO2 45 H (23-27) mmol/L ABG Base Excess 11.7 H (-2.0-3.0) Sodium (136-148) mmol/L Potassium (3.5-5.1) mmol/L Chloride (98-107) mmol/L Carbon Dioxide (21.0-32.0) mmol/L BUN (7.0-18.0) mg/dL Creatinine (0.8-1.3) mg/dL Est Cr Clr Drug Dosing mL/min Estimated GFR (MDRD) ml/min Glucose (74-106) mg/dL Calcium (8.5-10.1) mg/dL Total Bilirubin (0.2-1.0) mg/dL AST (15-37) IU/L ALT (14-63) IU/L Alkaline Phosphatase (46-116) U/L Troponin I (0.000-0.056) ng/mL Total Protein (6.4-8.2) g/dL Albumin (3.4-5.0) g/dL Globulin (2.6-4.0) g/dL Albumin/Globulin Ratio (0.9-1.6) Urine Color YELLOW Urine Appearance CLEAR Urine pH 6.0 (5.0-8.0) Ur Specific [place] 1.015 (1.001-1.035) Urine Protein NEGATIVE (NEGATIVE) mg/dL Urine Glucose (UA) NEGATIVE (NEGATIVE) mg/dL Urine Ketones NEGATIVE (NEGATIVE) mg/dL Urine Occult Blood NEGATIVE (NEGATIVE) Urine Nitrite NEGATIVE (NEGATIVE) Urine Bilirubin NEGATIVE (NEGATIVE) Urine Urobilinogen 0.2 (<2.0) EU/dL Ur Leukocyte Esterase NEGATIVE (NEGATIVE) Urine Opiates Screen POSITIVE (NEGATIVE) Ur Oxycodone Screen NEGATIVE (NEGATIVE) Urine Methadone Screen NEGATIVE (NEGATIVE) Ur Barbiturates Screen NEGATIVE (NEGATIVE) Ur Phencyclidine Scrn NEGATIVE (NEGATIVE) Ur Amphetamine Screen NEGATIVE (NEGATIVE) U Methamphetamines Scrn NEGATIVE (NEGATIVE) U Benzodiazepines Scrn NEGATIVE (NEGATIVE) U Cocaine Metab Screen NEGATIVE (NEGATIVE) U Marijuana (THC) Screen POSITIVE (NEGATIVE) Ethyl Alcohol mg/dL Meds: Medications Discontinued Medications Generic Name Dose Route Start Last Admin Trade Name Freq PRN Reason Stop Dose Admin Naloxone HCl 0.4 mg 12/03/20 15:48 12/03/20 15:51 Naloxone 0.4 Mg/Ml Sdv IVPUSH 12/03/20 15:49 0.4 mg ONETIME ONE Administration Naloxone HCl Confirm 12/03/20 15:50 12/03/20 15:53 Naloxone 0.4 Mg/Ml Syringe Administered 12/03/20 15:51 Not Given Dose 0.4 mg .ROUTE .STK-MED ONE Naloxone HCl Confirm 12/03/20 16:08 12/03/20 16:12 Naloxone 0.4 Mg/Ml Syringe Administered 12/03/20 16:09 Not Given Dose 0.4 mg .ROUTE .STK-MED ONE Naloxone HCl 0.4 mg 12/03/20 16:11 12/03/20 16:12 Naloxone 0.4 Mg/Ml Sdv IVPUSH 12/03/20 16:12 0.4 mg ONETIME ONE Administration Sodium Chloride 10 ml 12/03/20 15:22 Sodium Chloride 0.9% 10 Ml Syringe FLUSH ASDIRECTED PRN Keep Vein Open Sodium Chloride 2.5 ml 12/03/20 15:22 Sodium Chloride 0.9% 2.5 Ml Syringe FLUSH ASDIRECTED PRN Keep Vein Open Sodium Chloride 10 ml 12/03/20 15:22 Sodium Chloride 0.9% 10 Ml Sdv IV ASDIRECTED PRN IV Use - Re-Assessments/Exams Free Text/Narrative Re-Assessment/Exam: 12/04/20 19:32 Patient has been seen by me before in the past for similar presentation. Patient had the symptoms recurrently wears off metastatic stimulator to his medication use versus oxygen use still unclear has had multiple work-ups. He was last admitted by me a few weeks ago for similar complaints but had a complication with a septic joint and had to be taken to the OR to have his joint cleaned out. Likely source of his elevated WBC. Here patient was placed on BiPAP he had a CO2 of 67 but normal pH was probably his baseline PCO2 after the BiPAP patient woke up is more alert and feels better does not want to be admitted. We spoke to patient and son at the bedside at length about him being admitted versus going home he told if he goes home to change he may retain CO2 again in her back here patient understands the likely is go home as he has been having the symptoms for so long does not interact with me from the hospital we do not know what these we can do in chart, with a better regimen but he still like to go home and do this as outpatient. Patient understands the risk and will be discharged home. Departure - Departure Time of Disposition: 19:07 Disposition: Home, Self-Care 01 Condition: Good Clinical Impression: AMS (altered mental status), Hypercapnia - Discharge Information *PRESCRIPTION DRUG MONITORING PROGRAM REVIEWED*: Not Applicable *COPY OF PRESCRIPTION DRUG MONITORING REPORT IN PATIENT KECIA: Not Applicable Instructions: Delirium Referrals: Connor Melchor MD [Primary Care Provider] - Forms: ED Department Discharge Additional Instructions: The following information is given to patients seen in the emergency department who are being discharged to home. This information is to outline your options for follow-up care. We provide all patients seen in our emergency department with a follow-up referral. The need for follow-up, as well as the timing and circumstances, are variable depending upon the specifics of your emergency department visit. If you don't have a primary care physician on staff, we will provide you with a referral. We always advise you to contact your personal physician following an emergency department visit to inform them of the circumstance of the visit and for follow-up with them and/or the need for any referrals to a consulting specialist. The emergency department will also refer you to a specialist when appropriate. This referral assures that you have the opportunity for follow-up care with a specialist. All of these measure are taken in an effort to provide you with optimal care, which includes your follow-up. Under all circumstances we always encourage you to contact your private physician who remains a resource for coordinating your care. When calling for follow-up care, please make the office aware that this follow-up is from your recent emergency room visit. If for any reason you are refused follow-up, please contact the [facility] Emergency Department at and asked to speak to the emergency department charge nurse. Please follow up with your primary care physician. If you do not have a primary care physician, see below: [facility] [address] [place] [id number] My [facility] [address] [place] [address] You have been evaluated in the Emergency Department today for a period of altered mental status. Your evaluation, including lab work and imaging of your brain, did not show evidence of conditions requiring further emergent medical intervention at this time. Please schedule an appointment as soon as possible with your primary care physician for follow up. Return to the Emergency Department if you experience worsening periods of confusion, loss of consciousness, numbness/tingling, weakness, trouble speaking, vision changes, chest pain, shortness of breath, or any other worsening symptoms. Thank you for choosing us for your care. Sepsis Event Note (ED) - Evaluation Sepsis Screening Result: No Definite Risk - Assessment/Plan Plan: Patient is a 60-year-old male who presents today for altered mental status per son. On exam patient is difficult to arouse we did give Narcan the patient again more awake. Not really given has any areas of focal deficit. Pain CT head labs and UA
[2020-12-03 16:22] LABS: BLOOD UREA NITROGEN,BUN 47 mg/dL (7.0-18.0); CARBON DIOXIDE,CO2 36.2 mmol/L (21.0-32.0); CHLORIDE,CL 101 mmol/L (98-107); GLUCOSE RANDOM 171 mg/dL (74-106); POTASSIUM,K 4.4 mmol/L (3.5-5.1); SODIUM,NA 144 mmol/L (136-148)
--- NOTE | 2020-12-03 16:40 | CR ---
INDICATION: Recent surgery, now unresponsive. Code stroke. COMPARISON: Portable examination from 11/24/2020 FINDINGS: An erect single view of the chest was obtained at 15 40 hours. There continues to be shallow inspiration resulting in crowding of lung markings. There continues to be density along the medial right lower chest, slightly blurring the right heart border, consistent with a prominent pericardial fat pad. There is no sign of congestive failure or pleural effusion. The heart remains mildly enlarged. The mediastinum is otherwise normal in appearance. Again seen are changes of resection of the right humeral head at the level of the anatomic humeral neck. New surgical skin magdaleno overlie the right shoulder. The components of a left reverse total shoulder prosthesis remain in anatomic alignment with no sign of fracture, loosening, or dislocation. There is no sign of fracture of the [place] osseous structures. IMPRESSION: Shallow inspiration. No active disease seen in the chest. Stable appearance of mild cardiomegaly and a prominent right pericardial fat pad. Dictated by Mike Cifuentes MD @ 12/03/2020 4:38:[address] Mike Cifuentes @ Dec 03 2020 4:38PM
[2020-12-03 19:48] VITALS: BP 101/70; PULSE 88
== END 2020-12-03 19:48 | disposition home or self-care (01) ==
LOC: MW.ED 15:13
DX: R41.82 Altered mental status, unspecified (principal); I48.91 Unspecified atrial fibrillation; I11.0 Hypertensive heart disease with heart failure; I50.9 Heart failure, unspecified; I25.2 Old myocardial infarction; J44.9 Chronic obstructive pulmonary disease, unspecified; K21.9 Gastro-esophageal reflux disease without esophagitis; R06.89 Other abnormalities of breathing; Z79.899 Other long term (current) drug therapy
CPT/HCPCS: 36415; 36600; 70450; 71045; 80053; 80305; 80307; 81003; 82803; 84484; 85025; 85610; 85730; 93005; 94660; 99285; J2310

== ENCOUNTER 2020-12-17 17:50 | Emergency (ER) | payer MEDICARE, OTHER ==
[2020-12-17] MEDS ORDERED: Sodium Chloride 0.9% 10 ML Syringe FLUSH PRN (18:07)
[2020-12-17] MEDS ORDERED: Sodium Chloride 0.9% 2.5 ML Syringe FLUSH PRN (18:07)
--- NOTE | 2020-12-17 18:32 | EDM.PDOC ---
ED HPI GENERAL MEDICAL PROBLEM - General Chief Complaint: Genitourinary Problem Stated Complaint: PROBLEMS W/ HIS KIDNEY Time Seen by Provider: 12/17/20 17:50 Source of Information: Reports: Patient History Limitations: Reports: No Limitations - History of Present Illness INITIAL COMMENTS - FREE TEXT/NARRATIVE: HISTORY AND PHYSICAL: History of present illness: Patient is a 60-year-old male who presents to the emergency room as requested by [facility] stating he is dehydrated. Patient is 3 weeks postop. He had a debridement of his shoulder on 11/25/2020 for osteomyelitis. He is currently being treated for C. difficile with oral vancomycin, has 1 day left of treatment. Has been having 3-5 loose stools daily, which he states is "better". Patient did have lab work done today (at [facility]) by [facility]. He was called this evening and told that he appeared to be dehydrated and would require IV fluids. The home health nurse also felt that his blood pressure was low: reported being 90s over 50s. Patient denies any fever, chills, headache, change in vision, syncope or near syncope. Denies any chest pain, back pain, shortness of breath or cough. Denies any abdominal pain, nausea, vomiting, diarrhea, constipation or dysuria. Has not noted any blood in urine or stool. Patient has not been eating and drinking appropriately, stating "I never know if I'm dri nking too much or too little". States he has been restricting his oral fluids for the past few weeks. PCP: Dr Nguyen, receives Home Health Care weekly. Review of systems: As per history of present illness and below otherwise all systems reviewed and negative. Past medical history: As per history of present illness and as reviewed below otherwise noncontributory. Surgical history: As per history of present illness and as reviewed below otherwise noncontributory. Social history: See social history for further information Family history: As per history of present illness and as reviewed below otherwise noncontributory. Physical exam: General: Well developed and well nourished 60-year-old male. Alert and orientated x 3. Nontoxic in appearance and in no acute distress. Vital signs are stable and have been reviewed by me. Nursing notes were reviewed. HEENT: Atraumatic, normocephalic, pupils equal and reactive bilaterally, negative for conjunctival pallor or scleral icterus, mucous membranes moist, TMs normal bilaterally, throat clear, neck supple, nontender, trachea midline. No drooling or trismus noted. No meningeal signs. No hot potato voice noted. Lungs: Clear to auscultation bilaterally. No wheezes, rales, or rhonchi. Chest nontender. Normal work of breathing, no accessory muscles used. Heart: S1S2, regular rate and rhythm without overt murmur, gallops, or rubs. No JVD. No peripheral edema Abdomen: Soft, nondistended, nontender. Normoactive bowel sounds. Negative for masses or costovertebral tenderness. Skin: Intact, warm, dry. No lesions or rashes noted. Hematologic: No petechiae or purpra. Mucosa appropriate color and normal nail bed color and refill. Extremities: Atraumatic, moves all extremities per self without difficulty or deficits, negative for cords or calf pain. Neurovascular unremarkable. Neuro: Awake, alert, oriented. Cranial nerves II through XII unremarkable. Cerebellum unremarkable. Motor and sensory unremarkable throughout. Exam nonfoca l. Psychiatric: Mood and affect are appropriate. Normal thought process. Answering questions appropriately. Notes: *This patient was seen and evaluated during the 2019 SARS-CoV-2 novel coronavirus pandemic period. Community viral transmission is ongoing at time of this encounter and the emergency department is operating under pandemic response procedures. I am unable to view the lab work that was done earlier today. The son states that someone was supposed to fax it over, I have not seen this, cross our fax machine. We will repeat lab work today. [facility] note has come across the fax machine. It shows that his creatinine is 2.47, BUN 32 and GFR of 27. Previously on 11/26/2020 his BUN was 30, creatinine 1.22 and GFR was 61. Patient does have an orthopedic follow-up on December 19 for the osteomyelitis of his shoulder. Patient does have acute kidney injury. I did offer the patient admission, if feel he does require IV fluids and reevaluation in the morning. He declines stating he has several follow-up appointments in the following days and he has been restricting his PO intake at home. He would prefer to be discharged with follow-up with his primary care. I have talked with the patient about today's findings, in addition to providing specific details for plan of care. Reassessment at the time of disposition demonstrates that the patient is in no acute distress. Vital signs are stable. We will have him complete the 1 L of fluids and repeat his labs tomorrow. I did talk with Dr. Arias, hospitalist on-call who is agreeable with plan of care. I spoke with Felisha Lamas LPN -his home health nurse. She will repeat lab work tomorrow and give results to Dr. Nguyen, his primary care provider. The patient is stable for discharge, counseling was provided and we discussed in great detail signs and symptoms that would prompt them to return to the Emergency Department. Medication, follow up and supportive care measures were reviewed and discussed. Voices understanding and is agreeable to plan of care. Denies any further questions or concerns at this time. Diagnostics: CBC, CMP, UA Therapeutics: IV fluid Prescription: None Impression: Acute kidney injury Plan: 1. You were evaluated today on an emergent basis. Your lab work does show and acute kidney injury. You did receive a liter of fluids today. I would like your labs redrawn tomorrow and have you see your primary care provider for reevaluation. 2. You can alternate Tylenol and ibuprofen as needed for pain and fever management. 3. We encourage you to follow up with your primary care provider and/or recommended specialist in the next few days for re-evaluation and further care/management. 4. If your symptoms should worsen, new symptoms develop or any of the signs and symptoms we discussed should arise please return to the emergency room or call 911 (if needed). Definitive disposition and diagnosis as appropriate pending reevaluation and review of above. right shoulder and back Pain Score (Numeric/FACES): 6 - Related Data Allergies Allergy/AdvReac Type Severity Reaction Status Date / Time itraconazole [From Sporanox] Allergy Unknown Confusion Verified 12/17/20 18:05 levofloxacin [From Levaquin] Allergy Unknown Other Verified 12/17/20 18:05 meropenem Allergy Swelling Verified 12/17/20 18:05 Home Meds: Home Meds Apixaban [Eliquis] 5 mg PO BID tablet 07/21/18 [Rx] Metoprolol Tartrate [Lopressor] 50 mg PO BID tablet 07/21/18 [Rx] Fluticasone/Vilanterol [Breo Ellipta 200-25 MCG Inhalation Kit] 1 puff INH DAILY 08/10/20 [History] HYDROmorphone [Dilaudid] 4 mg PO Q4H PRN 08/10/20 [History] Testosterone 100 mg TD DAILY 08/10/20 [History] Tiotropium [place] [Spiriva Respimat] 2 puff INH DAILY 09/14/20 [History] Gabapentin [Neurontin] 800 mg PO QID tablet 09/16/20 [Rx] Furosemide [Lasix] 40 mg PO DAILY PRN 09/21/20 [History] Pantoprazole Sodium [Protonix] 40 mg PO DAILY 14 Days #14 tablet. 09/24/20 [Rx] predniSONE [Prednisone] 20 mg PO DAILY 14 Days #14 tablet 09/24/20 [Rx] Omeprazole 40 mg PO ACBREAKFAST 11/21/20 [History] Potassium Chloride [Klor-Con M10] 10 meq PO DAILY 11/21/20 [History] Pharmacy to Dose - Vancomycin 1 dose .XX ASDIRECTED each 11/24/20 [Rx] Piperacillin/Tazobactam [Piperacil-Tazobact] 3.375 gm IV Q8H adv 11/24/20 [Rx] Vancomycin [Vancocin] 1 gm IV Q24H adv 11/24/20 [Rx] methylPREDNISolone Sod Succ [Solu-MEDROL] 40 mg IVPUSH Q8H sdv 11/24/20 [Rx] Past Medical History HEENT History: Reports: Cataract Other HEENT History: dental fillings due to caries; recent tooth fracture Cardiovascular History: Reports: Afib, Cardiomyopathy, Heart Failure, Hypertension, NH Other Cardiovascular History: Heart attack April 2010, Pulmonary embolism 2009 Respiratory History: Reports: Asthma, Bronchitis, Recurrent, COPD, PE, Pneumonia, Recurrent, Other (See Below) Other Respiratory History: Chronic pulmonary aspergillosis, 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 on 02 at home - 2liters at daytime, 4 liters at bedtimeper nasal cannula Gastrointestinal History: Reports: Diverticulosis, GERD, Other (See Below) Other Gastrointestinal History: diverticulitis, peristalisis diagnosed with egd 2 weeks ago Genitourinary History: Reports: BPH, Renal Calculus, Renal Disease, UTI, Recurrent Other Genitourinary History: Left nephrectomy Musculoskeletal History: Reports: Arthritis, Back Pain, Chronic, Gout, Osteoporosis, RA, Other (See Below) Other Musculoskeletal History: lumbar fracture, rotator cap syndrome, bilateral feet fracture, osteomyelitis; hammer toes, elbow strain. 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 No explantation--they apparently just treated him with IV abx for months. - Past Surgical History Head Surgeries/Procedures: Reports: None HEENT Surgical History: Reports: Cataract Surgery Cardiovascular Surgical History: Reports: None Respiratory Surgical History: Reports: Lung Resection Other Respiratory Surgeries/Procedures: intubated last Feb 2018 and transfered to [facility] Surgical History: Reports: Colonoscopy Other GI Surgeries/Procedures: colostomy and reversal 20yrs ago Male Surgical History: Reports: None Endocrine Surgical History: Reports: None Neurological Surgical History: Reports: None Musculoskeletal Surgical History: Reports: Amputation, Shoulder Surgery, Other (See Below) Other Musculoskeletal Surgeries/Procedures:: L shoulder and left hip surgery. 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 with sx february 2020 Oncologic Surgical History: Reports: None Dermatological Surgical History: Reports: None Social & Family History - Family History Family Medical History: No Pertinent Family History - Tobacco Use Tobacco Use Status *Q: Never Tobacco User Second Hand Smoke Exposure: No - Caffeine Use Caffeine Use: Reports: Coffee Other Caffeine Use: occasional coffee - Recreational Drug Use Recreational Drug Use: No - Living Situation & Occupation Living situation: Reports: Single, with Family (sons) Occupation: Disabled ED ROS GENERAL - Review of Systems Review Of Systems: Comprehensive ROS is negative, except as noted in HPI. ED EXAM, GI/ABD - Physical Exam Exam: See Below (See dictation) Course - Vital Signs Last Recorded V/S: Last Vital Signs Temp 97.8 F 12/17/20 18:01 Pulse 58 L 12/17/20 18:01 Resp 18 12/17/20 18:01 BP 97/62 12/17/20 18:01 Pulse Ox 96 12/17/20 18:41 - Orders/Labs/Meds Orders: Active Orders 24 hr Category Date Time Status EKG Documentation Completion [RC] STAT Care 12/17/20 18:07 Active UA RFX SHILOH AND CULT IF INDIC [URIN] Stat Lab 12/17/20 18:07 Ordered Sodium Chloride 0.9% [Saline Flush] Med 12/17/20 18:07 Active 10 ml FLUSH ASDIRECTED PRN Sodium Chloride 0.9% [Saline Flush] Med 12/17/20 18:07 Active 2.5 ml FLUSH ASDIRECTED PRN Saline Lock Insert [OM.PC] Stat Oth 12/17/20 18:07 Ordered Medication Orders Sodium Chloride (Sodium Chloride 0.9% 10 Ml Syringe) 10 ml FLUSH ASDIRECTED PRN PRN Reason: Keep Vein Open Sodium Chloride (Sodium Chloride 0.9% 2.5 Ml Syringe) 2.5 ml FLUSH ASDIRECTED PRN PRN Reason: Keep Vein Open Labs: Laboratory Tests 12/17/20 12/17/20 12/17/20 Range/Units 18:37 18:37 18:37 WBC 5.89 (4.0-11.0) K/uL RBC 3.72 L (4.50-5.90) M/uL Hgb 8.2 L (13.0-17.0) g/dL Hct 31.5 L (38.0-50.0) % MCV 84.7 (80.0-98.0) fL MCH 22.0 L (27.0-32.0) pg MCHC 26.0 L (31.0-37.0) g/dL RDW Std Deviation 59.9 (28.0-62.0) fl RDW Coeff of Tre 20 H (11.0-15.0) % Plt Count 115 L (150-400) K/uL MPV 10.10 (7.40-12.00) fL Neut % (Auto) 68.1 (48.0-80.0) % Lymph % (Auto) 26.8 (16.0-40.0) % Evangeline % (Auto) 4.9 (0.0-15.0) % Eos % (Auto) 0.0 (0.0-7.0) % Baso % (Auto) 0.2 (0.0-1.5) % Neut # (Auto) 4.0 (1.4-5.7) K/uL Lymph # (Auto) 1.6 (0.6-2.4) K/uL Evangeline # (Auto) 0.3 (0.0-0.8) K/uL Eos # (Auto) 0.0 (0.0-0.7) K/uL Baso # (Auto) 0.0 (0.0-0.1) K/uL Nucleated RBC % 0.9 /100WBC Nucleated RBCs # 0 K/uL INR Sodium 142 (136-148) mmol/L Potassium 4.9 (3.5-5.1) mmol/L Chloride 101 (98-107) mmol/L Carbon Dioxide 37.6 H (21.0-32.0) mmol/L BUN 32 H (7.0-18.0) mg/dL Creatinine 2.5 H (0.8-1.3) mg/dL Est Cr Clr Drug Dosing 26.31 mL/min Estimated GFR (MDRD) 26.5 ml/min Glucose 95 (74-106) mg/dL Calcium 8.5 (8.5-10.1) mg/dL Total Bilirubin 0.5 (0.2-1.0) mg/dL AST 26 (15-37) IU/L ALT 24 (14-63) IU/L Alkaline Phosphatase 54 (46-116) U/L Troponin I < 0.050 (0.000-0.056) ng/mL B-Natriuretic Peptide 477 H (<100) PG/ML Total Protein 6.4 (6.4-8.2) g/dL Albumin 2.8 L (3.4-5.0) g/dL Globulin 3.6 (2.6-4.0) g/dL Albumin/Globulin Ratio 0.8 L (0.9-1.6) SARS-CoV-2 RNA ([place]) (NEGATIVE) 12/17/20 12/17/20 Range/Units 18:37 18:38 WBC (4.0-11.0) K/uL RBC (4.50-5.90) M/uL Hgb (13.0-17.0) g/dL Hct (38.0-50.0) % MCV (80.0-98.0) fL MCH (27.0-32.0) pg MCHC (31.0-37.0) g/dL RDW Std Deviation (28.0-62.0) fl RDW Coeff of Tre (11.0-15.0) % Plt Count (150-400) K/uL MPV (7.40-12.00) fL Neut % (Auto) (48.0-80.0) % Lymph % (Auto) (16.0-40.0) % Evangeline % (Auto) (0.0-15.0) % Eos % (Auto) (0.0-7.0) % Baso % (Auto) (0.0-1.5) % Neut # (Auto) (1.4-5.7) K/uL Lymph # (Auto) (0.6-2.4) K/uL Evangeline # (Auto) (0.0-0.8) K/uL Eos # (Auto) (0.0-0.7) K/uL Baso # (Auto) (0.0-0.1) K/uL Nucleated RBC % /100WBC Nucleated RBCs # K/uL INR 1.03 Sodium (136-148) mmol/L Potassium (3.5-5.1) mmol/L Chloride (98-107) mmol/L Carbon Dioxide (21.0-32.0) mmol/L BUN (7.0-18.0) mg/dL Creatinine (0.8-1.3) mg/dL Est Cr Clr Drug Dosing mL/min Estimated GFR (MDRD) ml/min Glucose (74-106) mg/dL Calcium (8.5-10.1) mg/dL Total Bilirubin (0.2-1.0) mg/dL AST (15-37) IU/L ALT (14-63) IU/L Alkaline Phosphatase (46-116) U/L Troponin I (0.000-0.056) ng/mL B-Natriuretic Peptide (<100) PG/ML Total Protein (6.4-8.2) g/dL Albumin (3.4-5.0) g/dL Globulin (2.6-4.0) g/dL Albumin/Globulin Ratio (0.9-1.6) SARS-CoV-2 RNA ([place]) NEGATIVE (NEGATIVE) Meds: Medications Generic Name Dose Route Start Last Admin Trade Name Freq PRN Reason Stop Dose Admin Sodium Chloride 10 ml 12/17/20 18:07 Sodium Chloride 0.9% 10 Ml Syringe FLUSH ASDIRECTED PRN Keep Vein Open Sodium Chloride 2.5 ml 12/17/20 18:07 Sodium Chloride 0.9% 2.5 Ml Syringe FLUSH ASDIRECTED PRN Keep Vein Open Discontinued Medications Generic Name Dose Route Start Last Admin Trade Name Freq PRN Reason Stop Dose Admin Sodium Chloride 1,000 mls @ 999 mls/hr 12/17/20 18:39 12/17/20 19:08 Normal Saline IV 12/17/20 19:39 999 mls/hr STAT ONE Administration Departure - Departure Time of Disposition: 20:34 Disposition: Home, Self-Care 01 Clinical Impression: LIVAN (acute kidney injury) - Discharge Information Instructions: Acute Kidney Injury, Adult Referrals: Connor Melchor MD [Primary Care Provider] - Forms: ED Department Discharge Additional Instructions: The following information is given to patients seen in the emergency department who are being discharged to home. This information is to outline your options for follow-up care. We provide all patients seen in our emergency department with a follow-up referral. The need for follow-up, as well as the timing and circumstances, are variable depending upon the specifics of your emergency department visit. If you don't have a primary care physician on staff, we will provide you with a referral. We always advise you to contact your personal physician following an emergency department visit to inform them of the circumstance of the visit and for follow-up with them and/or the need for any referrals to a consulting specialist. The emergency department will also refer you to a specialist when appropriate. This referral assures that you have the opportunity for follow-up care with a specialist. All of these measure are taken in an effort to provide you with optimal care, which includes your follow-up. Under all circumstances we always encourage you to contact your private physician who remains a resource for coordinating your care. When calling for follow-up care, please make the office aware that this follow-up is from your recent emergency room visit. If for any reason you are refused follow-up, please contact the [facility] Emergency Department at and asked to speak to the emergency department charge nurse. [facility] [address] [place] [address] [facility] [address] [place] [id number] Thank you for choosing the [facility] emergency department in [place] for your medical needs today. It was a pleasure caring for you. Today you were seen in the emergency department for abnormal labs. 1. You were evaluated today on an emergent basis. Your lab work does show and acute kidney injury. You did receive a liter of fluids today. I would like your labs redrawn tomorrow and have you see your primary care provider for reevaluation. 2. You can alternate Tylenol and ibuprofen as needed for pain and fever management. 3. We encourage you to follow up with your primary care provider and/or recommended specialist in the next few days for re-evaluation and further care/management. 4. If your symptoms should worsen, new symptoms develop or any of the signs and symptoms we discussed should arise please return to the emergency room or call 911 (if needed). Sepsis Event Note (ED) - Evaluation Sepsis Screening Result: No Definite Risk - Focused Exam Vital Signs: Vital Signs Temp Pulse Resp BP Pulse Ox 12/17/20 18:41 96 12/17/20 18:40 82 L 12/17/20 18:01 97.8 F 58 L 18 97/62 98 - My Orders Last 24 Hours: My Active Orders 12/17/20 18:07 EKG Documentation Completion [RC] STAT UA RFX SHILOH AND CULT IF INDIC [URIN] Stat Sodium Chloride 0.9% [Saline Flush] 10 ml FLUSH ASDIRECTED PRN Sodium Chloride 0.9% [Saline Flush] 2.5 ml FLUSH ASDIRECTED PRN Saline Lock Insert [OM.PC] Stat - Assessment/Plan Last 24 Hours: My Active Orders 12/17/20 18:07 EKG Documentation Completion [RC] STAT UA RFX SHILOH AND CULT IF INDIC [URIN] Stat Sodium Chloride 0.9% [Saline Flush] 10 ml FLUSH ASDIRECTED PRN Sodium Chloride 0.9% [Saline Flush] 2.5 ml FLUSH ASDIRECTED PRN Saline Lock Insert [OM.PC] Stat
[2020-12-17] MEDS ORDERED: Sodium Chloride 0.9% 1,000 ML IV ONE (18:39)
[2020-12-17 19:23] LABS: BLOOD UREA NITROGEN,BUN 32 mg/dL (7.0-18.0); CARBON DIOXIDE,CO2 37.6 mmol/L (21.0-32.0); CHLORIDE,CL 101 mmol/L (98-107); GLUCOSE RANDOM 95 mg/dL (74-106); POTASSIUM,K 4.9 mmol/L (3.5-5.1); SODIUM,NA 142 mmol/L (136-148)
--- NOTE | 2020-12-17 19:31 | CR ---
HISTORY: Weakness. TECHNIQUE: Portable frontal view the chest. COMPARISON: Chest x-ray 12/03/2020. FINDINGS: No airspace consolidation. No pleural effusion or pneumothorax. Pulmonary vasculature is within normal limits. Unchanged mildly enlarged cardiomediastinal silhouette. Left reverse total shoulder arthroplasty. Right humeral head resection. Skin magdaleno at the right shoulder. IMPRESSION: No acute cardiopulmonary abnormality. Unchanged mildly enlarged cardiomediastinal silhouette. Dictated by Rod Martinez MD @ 12/17/2020 7:30:[address] Rod Martinez @ Dec 17 2020 7:30PM
[2020-12-17 22:00] VITALS: BP 94/52; PULSE 64
--- NOTE | 2020-12-18 06:28 | PCM.EKG ---
#1 Interpretation EKG Date: 12/17/20 (EKG obtained prior to my arrival. EKG seen at 1900) Time: 18:41 Rhythm: NSR Rate (Beats/Min): 72 Yeoman: Normal P-Wave: Present QRS: Normal ST-T: Normal QT: Normal Comparison: No Change (11/14/20) EKG Interpretation Comments: Basline aritifact and wander limit interpretation. No obvious STEMI/ST Depression. Sinus Rhythm
== END 2020-12-17 21:50 | disposition home or self-care (01) ==
LOC: MW.ED 17:50
DX: N17.9 Acute kidney failure, unspecified (principal); I48.91 Unspecified atrial fibrillation; I11.0 Hypertensive heart disease with heart failure; I50.9 Heart failure, unspecified; I25.2 Old myocardial infarction; J44.9 Chronic obstructive pulmonary disease, unspecified; Z88.1 Allergy status to other antibiotic agents; Z88.8 Allergy status to other drugs, medicaments and biological substances; Z79.899 Other long term (current) drug therapy; Z79.01 Long term (current) use of anticoagulants; Z20.822 Contact with and (suspected) exposure to COVID-19; Z86.73 Personal history of transient ischemic attack (TIA), and cerebral infarction without residual deficits
CPT/HCPCS: 36415; 71045; 80053; 83880; 84484; 85025; 85610; 99284; J7030; U0002

== ENCOUNTER 2020-12-25 22:53 | Emergency (ER) | payer MEDICARE, OTHER ==
[2020-12-25] MEDS ORDERED: Morphine 2 MG/ML SYRINGE IVPUSH ONE (23:12)
--- NOTE | 2020-12-25 23:12 | EDM.PDOC ---
ED HPI GENERAL MEDICAL PROBLEM - General Chief Complaint: Upper Extremity Injury/Pain Stated Complaint: SHOULDER PAIN Time Seen by Provider: 12/25/20 22:59 Source of Information: Reports: Patient History Limitations: Reports: No Limitations - History of Present Illness INITIAL COMMENTS - FREE TEXT/NARRATIVE: Patient is a 60-year-old male presents today for right shoulder pain. Patient had a septic shoulder a few weeks ago that had to be transferred to outside hospital to have it drained and washed out. Patient son states that the area around his shoulder become more painful and has been some leak is approximate around the surgical site. Patient still denies any fever chills just has the pain does not radiate not made worse or better with anything. He has daily Dilaudid 8 he takes at home for various other reasons been using home is not controlling his pain. Right Shoulder Pain Score (Numeric/FACES): 7 - Related Data Allergies Allergy/AdvReac Type Severity Reaction Status Date / Time itraconazole [From Sporanox] Allergy Unknown Confusion Verified 12/25/20 23:12 levofloxacin [From Levaquin] Allergy Unknown Other Verified 12/25/20 23:12 meropenem Allergy Swelling Verified 12/25/20 23:12 Home Meds: Home Meds Apixaban [Eliquis] 5 mg PO BID tablet 07/21/18 [Rx] Metoprolol Tartrate [Lopressor] 50 mg PO BID tablet 07/21/18 [Rx] Fluticasone/Vilanterol [Breo Ellipta 200-25 MCG Inhalation Kit] 1 puff INH DAILY 08/10/20 [History] HYDROmorphone [Dilaudid] 4 mg PO Q4H PRN 08/10/20 [History] Testosterone 100 mg TD DAILY 08/10/20 [History] Tiotropium Williams [Spiriva Respimat] 2 puff INH DAILY 09/14/20 [History] Gabapentin [Neurontin] 800 mg PO QID tablet 09/16/20 [Rx] Furosemide [Lasix] 40 mg PO DAILY PRN 09/21/20 [History] Pantoprazole Sodium [Protonix] 40 mg PO DAILY 14 Days #14 tablet. 09/24/20 [Rx] predniSONE [Prednisone] 20 mg PO DAILY 14 Days #14 tablet 09/24/20 [Rx] Omeprazole 40 mg PO ACBREAKFAST 11/21/20 [History] Potassium Chloride [Klor-Con M10] 10 meq PO DAILY 11/21/20 [History] methylPREDNISolone Sod Succ [Solu-MEDROL] 40 mg IVPUSH Q8H sdv 11/24/20 [Rx] Clindamycin HCl 300 mg PO TID 7 Days #21 capsule 12/26/20 [Rx] Past Medical History HEENT History: Reports: Cataract Other HEENT History: dental fillings due to caries; recent tooth fracture Cardiovascular History: Reports: Afib, Cardiomyopathy, Heart Failure, Hypertension, [place] Other Cardiovascular History: Heart attack April 2010, Pulmonary embolism 2009 Respiratory History: Reports: Asthma, Bronchitis, Recurrent, COPD, PE, Pneumonia, Recurrent, Other (See Below) Other Respiratory History: Chronic pulmonary aspergillosis, 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 on 02 at home - 2liters at daytime, 4 liters at bedtimeper nasal cannula Gastrointestinal History: Reports: Diverticulosis, GERD, Other (See Below) Other Gastrointestinal History: diverticulitis, peristalisis diagnosed with egd 2 weeks ago Genitourinary History: Reports: BPH, Renal Calculus, Renal Disease, UTI, Recurrent Other Genitourinary History: Left nephrectomy Musculoskeletal History: Reports: Arthritis, Back Pain, Chronic, Gout, Osteoporosis, RA, Other (See Below) Other Musculoskeletal History: lumbar fracture, rotator cap syndrome, bilateral feet fracture, osteomyelitis; hammer toes, elbow strain. bilateral achilles tendon ruptures and repair., hip replacement, removal of left humerous, reverse right shoulder replacement Neurological History: Reports: Neuropathy, Peripheral, TIA Other Neuro History: TIA 1999 Psychiatric History: Reports: Anxiety, Depression Endocrine/Metabolic History: Reports: Osteoporosis Hematologic History: Reports: Anticoagulation Therapy Immunologic History: Reports: Immunosuppression Oncologic (Cancer) History: Reports: Other (See Below) Other Oncologic History: melanoma of the right eye Dermatologic History: Reports: Cellulitis, Melanoma, Other (See Below) Other Dermatologic History: melanoma in the eye, 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 No explantation--they apparently just treated him with IV abx for months. - Past Surgical History Head Surgeries/Procedures: Reports: None HEENT Surgical History: Reports: Cataract Surgery Cardiovascular Surgical History: Reports: None Respiratory Surgical History: Reports: Lung Resection Other Respiratory Surgeries/Procedures: intubated last Feb 2018 and transfered to [facility] Surgical History: Reports: Colonoscopy Other GI Surgeries/Procedures: colostomy and reversal 20yrs ago Male Surgical History: Reports: None Endocrine Surgical History: Reports: None Neurological Surgical History: Reports: None Musculoskeletal Surgical History: Reports: Amputation, Shoulder Surgery, Other (See Below) Other Musculoskeletal Surgeries/Procedures:: L shoulder and left hip surgery. 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 with sx february 2020 Oncologic Surgical History: Reports: None Dermatological Surgical History: Reports: None Social & Family History - Family History Family Medical History: No Pertinent Family History - Caffeine Use Caffeine Use: Reports: Coffee Other Caffeine Use: occasional coffee - Living Situation & Occupation Living situation: Reports: Single, with Family (sons) Occupation: Disabled Review of Systems - Review of Systems Review Of Systems: See Below Constitutional: Reports: No Symptoms Eyes: Reports: No Symptoms Ears: Reports: No Symptoms Nose: Reports: No Symptoms Mouth/Throat: Reports: No Symptoms Respiratory: Reports: No Symptoms Cardiovascular: Reports: No Symptoms GI/Abdominal: Reports: No Symptoms Genitourinary: Reports: No Symptoms Musculoskeletal: Reports: Arm Pain Skin: Reports: No Symptoms Neurological: Reports: No Symptoms Psychiatric: Reports: No Symptoms ED EXAM, GENERAL - Physical Exam Exam: See Below Exam Limited By: No Limitations General Appearance: Alert, WD/WN, No Apparent Distress Eye Exam: Bilateral Eye: EOMI, PERRL Respiratory/Chest: No Respiratory Distress, Lungs Clear, Normal Breath Sounds Cardiovascular: Normal Peripheral Pulses, Regular Rate, Rhythm Peripheral Pulses: 2+: Radial (L), Radial (R) GI/Abdominal: Normal Bowel Sounds, Soft, Non-Tender Extremities: Normal Inspection, Normal Range of Motion. No: Non-Tender (Right shoulder) Neurological: Alert, Oriented Course - Vital Signs Last Recorded V/S: Last Vital Signs Temp 100.9 F H 12/25/20 23:01 Pulse 76 12/26/20 01:01 Resp 18 12/26/20 01:01 BP 124/84 12/26/20 01:01 Pulse Ox 97 12/26/20 01:01 - Orders/Labs/Meds Orders: Active Orders 24 hr Category Date Time Status Sodium Chloride 0.9% [Normal Saline] 1,000 ml Med 12/26/20 00:45 Active IV ASDIRECTED Medication Orders Sodium Chloride (Normal Saline) 1,000 mls @ 1,000 mls/hr IV ASDIRECTED DANIELITO Last Admin: 12/26/20 00:58 Dose: 1,000 mls/hr Documented by: ANDREA Labs: Laboratory Tests 12/25/20 12/25/20 12/25/20 Range/Units 23:25 23:25 23:25 WBC 11.47 H (4.0-11.0) K/uL RBC 4.49 L (4.50-5.90) M/uL Hgb 10.1 L (13.0-17.0) g/dL Hct 36.8 L (38.0-50.0) % MCV 82.0 (80.0-98.0) fL MCH 22.5 L (27.0-32.0) pg MCHC 27.4 L (31.0-37.0) g/dL RDW Std Deviation 56.0 (28.0-62.0) fl RDW Coeff of Tre 19 H (11.0-15.0) % Plt Count 302 (150-400) K/uL MPV 9.40 (7.40-12.00) fL Neut % (Auto) 64.7 (48.0-80.0) % Lymph % (Auto) 24.5 (16.0-40.0) % Childress % (Auto) 10.5 (0.0-15.0) % Eos % (Auto) 0.2 (0.0-7.0) % Baso % (Auto) 0.1 (0.0-1.5) % Neut # (Auto) 7.4 H (1.4-5.7) K/uL Lymph # (Auto) 2.8 H (0.6-2.4) K/uL Childress # (Auto) 1.2 H (0.0-0.8) K/uL Eos # (Auto) 0.0 (0.0-0.7) K/uL Baso # (Auto) 0.0 (0.0-0.1) K/uL Nucleated RBC % 0.6 /100WBC Nucleated RBCs # 0 K/uL Sodium 140 (136-148) mmol/L Potassium 4.2 (3.5-5.1) mmol/L Chloride 97 L (98-107) mmol/L Carbon Dioxide 36.6 H (21.0-32.0) mmol/L BUN 38 H (7.0-18.0) mg/dL Creatinine 1.9 H (0.8-1.3) mg/dL Est Cr Clr Drug Dosing TNP Estimated GFR (MDRD) 36.3 ml/min Glucose 100 (74-106) mg/dL Lactic Acid 2.6 H* (0.4-2.0) mmol/L Calcium 8.9 (8.5-10.1) mg/dL Phosphorus 3.1 (2.6-4.7) mg/dL Magnesium 2.1 (1.8-2.4) mg/dL Total Bilirubin 0.6 (0.2-1.0) mg/dL AST 26 (15-37) IU/L ALT 21 (14-63) IU/L Alkaline Phosphatase 62 (46-116) U/L Creatine Kinase 30 (26-308) U/L C-Reactive Protein 4.20 H (0.00-0.90) mg/dL Total Protein 7.5 (6.4-8.2) g/dL Albumin 3.3 L (3.4-5.0) g/dL Globulin 4.2 H (2.6-4.0) g/dL Albumin/Globulin Ratio 0.8 L (0.9-1.6) Lipase 192 (73-393) U/L 12/26/20 Range/Units 02:20 WBC (4.0-11.0) K/uL RBC (4.50-5.90) M/uL Hgb (13.0-17.0) g/dL Hct (38.0-50.0) % MCV (80.0-98.0) fL MCH (27.0-32.0) pg MCHC (31.0-37.0) g/dL RDW Std Deviation (28.0-62.0) fl RDW Coeff of Tre (11.0-15.0) % Plt Count (150-400) K/uL MPV (7.40-12.00) fL Neut % (Auto) (48.0-80.0) % Lymph % (Auto) (16.0-40.0) % Childress % (Auto) (0.0-15.0) % Eos % (Auto) (0.0-7.0) % Baso % (Auto) (0.0-1.5) % Neut # (Auto) (1.4-5.7) K/uL Lymph # (Auto) (0.6-2.4) K/uL Childress # (Auto) (0.0-0.8) K/uL Eos # (Auto) (0.0-0.7) K/uL Baso # (Auto) (0.0-0.1) K/uL Nucleated RBC % /100WBC Nucleated RBCs # K/uL Sodium (136-148) mmol/L Potassium (3.5-5.1) mmol/L Chloride (98-107) mmol/L Carbon Dioxide (21.0-32.0) mmol/L BUN (7.0-18.0) mg/dL Creatinine (0.8-1.3) mg/dL Est Cr Clr Drug Dosing Estimated GFR (MDRD) ml/min Glucose (74-106) mg/dL Lactic Acid 2.4 H* (0.4-2.0) mmol/L Calcium (8.5-10.1) mg/dL Phosphorus (2.6-4.7) mg/dL Magnesium (1.8-2.4) mg/dL Total Bilirubin (0.2-1.0) mg/dL AST (15-37) IU/L ALT (14-63) IU/L Alkaline Phosphatase (46-116) U/L Creatine Kinase (26-308) U/L C-Reactive Protein (0.00-0.90) mg/dL Total Protein (6.4-8.2) g/dL Albumin (3.4-5.0) g/dL Globulin (2.6-4.0) g/dL Albumin/Globulin Ratio (0.9-1.6) Lipase (73-393) U/L Meds: Medications Generic Name Dose Route Start Last Admin Trade Name Freq PRN Reason Stop Dose Admin Sodium Chloride 1,000 mls @ 1,000 mls/hr 12/26/20 00:45 12/26/20 00:58 Normal Saline IV 1,000 mls/hr ASDIRECTED DANIELITO Administration Discontinued Medications Generic Name Dose Route Start Last Admin Trade Name Freq PRN Reason Stop Dose Admin Clindamycin Phosphate 600 mg/ 54 mls @ 100 mls/hr 12/26/20 00:33 12/26/20 01:08 Sodium Chloride IV 12/26/20 01:05 Not Given ONETIME ONE Clindamycin Phosphate Confirm 12/26/20 01:00 12/26/20 01:08 Cleocin In D5w 600 Mg/50 Ml Administered 12/26/20 01:01 Not Given Dose 50 mls @ as directed .ROUTE .STK-MED ONE Clindamycin Phosphate 600 mg/ 50 mls @ 100 mls/hr 12/26/20 01:04 12/26/20 01:10 Premix IV 12/26/20 01:33 100 mls/hr ONETIME ONE Administration Morphine Sulfate 2 mg 12/25/20 23:12 12/25/20 23:22 Morphine 2 Mg/Ml Syringe IVPUSH 12/25/20 23:13 2 mg ONETIME ONE Administration - Re-Assessments/Exams Free Text/Narrative Re-Assessment/Exam: 12/26/20 00:34 Patient ultrasound shows a new fluid collection anterior shoulder. We called the orthopedic doctor at [facility] Dr. Kothari also performed patient is washed out of his shoulder and made him aware the findings. He says he chronically has fluid in his shoulder from previously having his humerus had removed. The patient does look well on exam does not look toxic he does have elevated lactate we will give IV fluids and start him on IV antibiotics however speaking to the orthopedics physician at [facility] has not wanted transferred states he can follow-up as outpatient as he feels the patient is chronically sick and will not have much value would be in transfer tonight. Will make patient aware have patient follow-up and also give patient strict return precautions. 12/26/20 01:26 I did speak in the patient and his son they were aware of this and have spoken to Ortho doctor about this before the past and also were told that there is not much to do about the fluid in the shoulder. We again will discharge patient on antibiotics and provide follow-up. Departure - Departure Time of Disposition: 03:01 Disposition: Home, Self-Care 01 Condition: Good Clinical Impression: Muscle abscess - Discharge Information *PRESCRIPTION DRUG MONITORING PROGRAM REVIEWED*: Not Applicable *COPY OF PRESCRIPTION DRUG MONITORING REPORT IN PATIENT KECIA: Not Applicable Prescriptions: Clindamycin HCl 300 mg PO TID 7 Days #21 capsule Instructions: Skin Abscess, Juhy-cf-Ozsu Referrals: Connor Melchor MD [Primary Care Provider] - Forms: ED Department Discharge Additional Instructions: The following information is given to patients seen in the emergency department who are being discharged to home. This information is to outline your options for follow-up care. We provide all patients seen in our emergency department with a follow-up referral. The need for follow-up, as well as the timing and circumstances, are variable depending upon the specifics of your emergency department visit. If you don't have a primary care physician on staff, we will provide you with a referral. We always advise you to contact your personal physician following an emergency department visit to inform them of the circumstance of the visit and for follow-up with them and/or the need for any referrals to a consulting spec ialist. The emergency department will also refer you to a specialist when appropriate. This referral assures that you have the opportunity for follow-up care with a specialist. All of these measure are taken in an effort to provide you with optimal care, which includes your follow-up. Under all circumstances we always encourage you to contact your private physician who remains a resource for coordinating your care. When calling for follow-up care, please make the office aware that this follow-up is from your recent emergency room visit. If for any reason you are refused follow-up, please contact the [facility] Emergency Department at and asked to speak to the emergency department charge nurse. Please follow up with your primary care physician. If you do not have a primary care physician, see below: Peter Kothari MD Orthopedic Surgery Orthopedics Location [address] [place] [id number] [address] You were seen today for arm pain. The CAT scan showed a possible abscess in the deltoid muscle. We called the orthopedic surgeon above the speak about the case and he is aware of it and he also spoke to about this for the past. He does not think there is much to do for it at this moment he wants to follow-up with you as outpatient. In the meantime I will start joint antibiotics that she should take. If the symptoms are becoming worse or decrease fevers altering the status please return to the ED immediately otherwise call the surgeon above tomorrow morning to obtain appointment. Sepsis Event Note (ED) - Focused Exam Vital Signs: Vital Signs Temp Pulse Resp BP Pulse Ox 12/26/20 01:01 76 18 124/84 97 12/26/20 00:08 82 18 108/62 97 12/25/20 23:01 100.9 F H 93 16 149/87 H 93 L - My Orders Last 24 Hours: My Active Orders 12/26/20 00:45 Sodium Chloride 0.9% [Normal Saline] 1,000 ml IV ASDIRECTED - Assessment/Plan Last 24 Hours: My Active Orders 12/26/20 00:45 Sodium Chloride 0.9% [Normal Saline] 1,000 ml IV ASDIRECTED Plan: Patient is a 60-year-old male who presents today for right shoulder pain. Patient recently had a septic joint in the right shoulder that required a washout. On exam he does have some areas of fluctuant and some warmth. Will obtain labs possible imaging of the shoulder and reassess.
[2020-12-26] LABS: BLOOD UREA NITROGEN,BUN 38 mg/dL (7.0-18.0); CARBON DIOXIDE,CO2 36.6 mmol/L (21.0-32.0); CHLORIDE,CL 97 mmol/L (98-107); GLUCOSE RANDOM 100 mg/dL (74-106); LIPASE 192 U/L (73-393); POTASSIUM,K 4.2 mmol/L (3.5-5.1); SODIUM,NA 140 mmol/L (136-148)
--- NOTE | 2020-12-26 00:24 | CT ---
Indication: Right shoulder pain. Previous septic joint. Technique: Noncontrast CT examination of the right shoulder is performed with spiral technique to obtain 1.0 and 2.5 millimeter thick axial and 2.0 millimeter thick sagittal and coronal sections. Please note that all CT scans at this facility use dose modulation, iterative reconstruction, and/or weight-based dosing when appropriate to reduce radiation dose to as low as reasonably achievable. Comparison: MR of the right shoulder from 11/24/2020 and plain films of the right shoulder from 12/17/2020. Findings: Again seen is complete erosion of the right humeral head as well as of the superior humeral neck. Again seen is prominent erosion of the right glenoid. The large fluid collection filling the right shoulder joint capsule is overall unchanged in size, now measuring approximately 7.3 x 5.4 centimeters in cross-section, previously 6.6 x 5.3 centimeters. There is more protrusion of the fluid collection posteriorly, with less protrusion anteriorly. There is a new fluid collection in the anterior muscle belly of the deltoid, measuring 5.6 x 4.0 cm in cross-section and 9.6 cm in length. This is probably an abscess within the muscle belly. There is heterogeneous high density at the periphery of the fluid collection as well as some areas of high density located more centrally. The right clavicle is intact. There is mild pleural thickening along the posterior wall of the right chest. Surgical clips are seen in the right superior hilum. Impression: New large fluid collection in the anterior muscle belly of the right deltoid consistent with an abscess, measuring approximately 5.6 x 4.0 x 9.6 centimeters. No change in overall size of the large right shoulder joint effusion with stable severe erosion of the humeral head, proximal humeral neck, and glenoid, consistent with septic arthritis. Please note that all CT scans at this facility use dose modulation, iterative reconstruction, and/or weight-based dosing when appropriate to reduce radiation dose to as low as reasonably achievable. Dictated by Mike Cifuentes MD @ 12/26/2020 12:23:[address] Mike Cifuentes @ Dec 26 2020 12:23AM
[2020-12-26] MEDS ORDERED: Sodium Chloride 0.9% 1,000 ML IV SCH (00:45)
[2020-12-26] MEDS ORDERED: Clindamycin Phosphate in D5W 50 ML ONE (01:00)
[2020-12-26] MEDS ORDERED: Clindamycin Phosphate in D5W 600 MG in Premix Bag 1 BAG IV ONE ×2 (01:04)
[2020-12-26 03:31] VITALS: BP 111/72; PULSE 87
== END 2020-12-26 03:15 | disposition home or self-care (01) ==
LOC: MW.ED 22:53
DX: L02.413 Cutaneous abscess of right upper limb (principal); I48.91 Unspecified atrial fibrillation; I11.0 Hypertensive heart disease with heart failure; I50.9 Heart failure, unspecified; I25.2 Old myocardial infarction; J44.9 Chronic obstructive pulmonary disease, unspecified; K21.9 Gastro-esophageal reflux disease without esophagitis; M06.9 Rheumatoid arthritis, unspecified; Z86.711 Personal history of pulmonary embolism; Z79.01 Long term (current) use of anticoagulants; Z88.8 Allergy status to other drugs, medicaments and biological substances; Z88.1 Allergy status to other antibiotic agents; Z79.899 Other long term (current) drug therapy
CPT/HCPCS: 36415; 73200; 80053; 82550; 83605; 83690; 83735; 84100; 85025; 86140; 96365; 96375; 99284; J2270; J3490; J7030

== ENCOUNTER 2021-01-21 13:41 | Emergency (ER) | payer MEDICARE, OTHER ==
--- NOTE | 2021-01-21 13:49 | EDM.PDOC ---
ED HPI GENERAL MEDICAL PROBLEM - General Stated Complaint: FELL AND BUSTED OPEN HIS KNEE AND ARM Time Seen by Provider: 01/21/21 13:47 Source of Information: Reports: Patient History Limitations: Reports: No Limitations - History of Present Illness INITIAL COMMENTS - FREE TEXT/NARRATIVE: 60-year-old male on Eliquis presents for a fall. Patient tripped on his oxygen tubing. He notes he notes skin tearing on his right upper extremity and left llower extremity. He denies hitting his head or loss of consciousness. Left Knee Pain Score (Numeric/FACES): 9 - Related Data Allergies Allergy/AdvReac Type Severity Reaction Status Date / Time itraconazole [From Sporanox] Allergy Unknown Confusion Verified 01/21/21 13:56 levofloxacin [From Levaquin] Allergy Unknown Other Verified 01/21/21 13:56 meropenem Allergy Swelling Verified 01/21/21 13:56 Home Meds: Home Meds Apixaban [Eliquis] 5 mg PO BID tablet 07/21/18 [Rx] Metoprolol Tartrate [Lopressor] 50 mg PO BID tablet 07/21/18 [Rx] Fluticasone/Vilanterol [Breo Ellipta 200-25 MCG Inhalation Kit] 1 puff INH DAILY 08/10/20 [History] HYDROmorphone [Dilaudid] 4 mg PO Q4H PRN 08/10/20 [History] Testosterone 100 mg TD DAILY 08/10/20 [History] Tiotropium [place] [Spiriva Respimat] 2 puff INH DAILY 09/14/20 [History] Gabapentin [Neurontin] 800 mg PO QID tablet 09/16/20 [Rx] Furosemide [Lasix] 40 mg PO DAILY PRN 09/21/20 [History] Pantoprazole Sodium [Protonix] 40 mg PO DAILY 14 Days #14 tablet. 09/24/20 [Rx] predniSONE [Prednisone] 20 mg PO DAILY 14 Days #14 tablet 09/24/20 [Rx] Omeprazole 40 mg PO ACBREAKFAST 11/21/20 [History] Potassium Chloride [Klor-Con M10] 10 meq PO DAILY 11/21/20 [History] methylPREDNISolone Sod Succ [Solu-MEDROL] 40 mg IVPUSH Q8H sdv 11/24/20 [Rx] Clindamycin HCl 300 mg PO TID 7 Days #21 capsule 12/26/20 [Rx] Past Medical History HEENT History: Reports: Cataract Other HEENT History: dental fillings due to caries; recent tooth fracture Cardiovascular History: Reports: Afib, Cardiomyopathy, Heart Failure, Hyp ertension, [place] Other Cardiovascular History: Heart attack April 2010, Pulmonary embolism 2009 Respiratory History: Reports: Asthma, Bronchitis, Recurrent, COPD, PE, Pneumonia, Recurrent, Other (See Below) Other Respiratory History: Chronic pulmonary aspergillosis, 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 on 02 at home - 2liters at daytime, 4 liters at bedtimeper nasal cannula Gastrointestinal History: Reports: Diverticulosis, GERD, Other (See Below) Other Gastrointestinal History: diverticulitis, peristalisis diagnosed with egd 2 weeks ago Genitourinary History: Reports: BPH, Renal Calculus, Renal Disease, UTI, Recurrent Other Genitourinary History: Left nephrectomy Musculoskeletal History: Reports: Arthritis, Back Pain, Chronic, Gout, Osteoporosis, RA, Other (See Below) Other Musculoskeletal History: lumbar fracture, rotator cap syndrome, bilateral feet fracture, osteomyelitis; hammer toes, elbow strain. bilateral achilles tendon ruptures and repair., hip replacement, removal of left humerous, reverse right shoulder replacement Neurological History: Reports: Neuropathy, Peripheral, TIA Other Neuro History: TIA 1999 Psychiatric History: Reports: Anxiety, Depression Endocrine/Metabolic History: Reports: Osteoporosis Hematologic History: Reports: Anticoagulation Therapy Immunologic History: Reports: Immunosuppression Oncologic (Cancer) History: Reports: Other (See Below) Other Oncologic History: melanoma of the right eye Dermatologic History: Reports: Cellulitis, Melanoma, Other (See Below) Other Dermatologic History: melanoma in the eye, [facility] steroid use - Infectious Disease History Infectious Disease History: Reports: Chicken Pox, Measles Other Infectious Disease History: 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 No explantation--they apparently just treated him with IV abx for months. - Past Surgical History Head Surgeries/Procedures: Reports: None HEENT Surgical History: Reports: Cataract Surgery Cardiovascular Surgical History: Reports: None Respiratory Surgical History: Reports: Lung Resection Other Respiratory Surgeries/Procedures: intubated last Feb 2018 and transfered to [facility] Surgical History: Reports: Colonoscopy Other GI Surgeries/Procedures: colostomy and reversal 20yrs ago Male Surgical History: Reports: None Endocrine Surgical History: Reports: None Neurological Surgical History: Reports: None Musculoskeletal Surgical History: Reports: Amputation, Shoulder Surgery, Other (See Below) Other Musculoskeletal Surgeries/Procedures:: L shoulder and left hip surgery. R sarah- antibiotic beads with sx february 2020 Oncologic Surgical History: Reports: None Dermatological Surgical History: Reports: None Social & Family History - Family History Family Medical History: No Pertinent Family History - Caffeine Use Caffeine Use: Reports: Coffee Other Caffeine Use: occasional coffee - Living Situation & Occupation Living situation: Reports: Single, with Family (sons) Occupation: Disabled ED ROS GENERAL - Review of Systems Review Of Systems: Comprehensive ROS is negative, except as noted in HPI. ED EXAM, GENERAL - Physical Exam Exam: See Below Exam Limited By: No Limitations General Appearance: Alert, WD/WN, No Apparent Distress Eye Exam: Bilateral Eye: PERRL Ears: Hearing Grossly Normal Throat/Mouth: Normal Voice, No Airway Compromise Head: Atraumatic, Normocephalic Neck: Normal Inspection, Non-Tender, Full Range of Motion Respiratory/Chest: No Respiratory Distress, Lungs Clear, Normal Breath Sounds, No Accessory Muscle Use Cardiovascular: Normal Peripheral Pulses, Regular Rate, Rhythm GI/Abdominal: Soft, Non-Tender Back Exam: Normal Inspection. No: Vertebral Tenderness Extremities: Normal Inspection Neurological: Alert, Oriented, Normal Cognition Psychiatric: Normal Affect, Normal Mood Skin Exam: Warm, Dry, Intact, Normal Color, Other (Skin avulsion to right forearm that is not amenable to suturing, large laceration of left knee roughly 15 cm) ED GENERAL MEDICAL PROCEDURES - Laceration/Wound Repair Left Anterior Knee Lac/wound length in cm: 15 Appearance: Superficial, Subcutaneous Distal NVT: Neuro & Vascular Intact Anesthetic Type: Local Local Anesthesia - Lidocaine (Xylocaine): 1% with EPI Local Anesthetic Volume: Other (20) Skin Prep: Chlorhexidine (Hibiciens) Saline irrigation (cc's): 50 Exploration/Debridement/Repair: Wound Explored Closed with: Sutures Suture Size: 3-0 # of Sutures: 17 Suture Type: Interrupted, Simple Sterile Dressing Applied: Nurse Tetanus Status Addressed: Yes Complications: No Course - Vital Signs Last Recorded V/S: Last Vital Signs Temp 97.9 F 01/21/21 13:41 Pulse 97 01/21/21 13:41 Resp 18 01/21/21 13:41 BP 104/69 01/21/21 13:41 Pulse Ox 98 01/21/21 13:42 - Orders/Labs/Meds Meds: Medications Discontinued Medications Generic Name Dose Route Start Last Admin Trade Name Shiv PRN Reason Stop Dose Admin Lidocaine/Epinephrine 20 ml 01/21/21 14:26 01/21/21 14:54 Lidocaine 1% With Epinephrine 1:100,000 20 Ml Mdv INJECT 01/21/21 14:27 20 ml ONETIME ONE Administration Oxycodone/Acetaminophen 1 tab 01/21/21 14:01 01/21/21 14:20 Acetaminophen/Oxycodone 325-5 Mg Tab PO 01/21/21 14:02 1 tab ONETIME ONE Administration - Re-Assessments/Exams Free Text/Narrative Re-Assessment/Exam: 01/21/21 13:50 We will get head CT to ensure no intracranial pathology in the setting of blood thinner use. Patient's tetanus vaccination is up-to-date within the last 5 years. 01/21/21 15:[address] is unremarkable. Patient is clear for discharge. Departure - Departure Time of Disposition: 15:25 Disposition: Home, Self-Care 01 Condition: Good Clinical Impression: Knee laceration Qualifiers: Encounter type: initial encounter Laterality: left Qualified Code(s): S81.012A - Laceration without foreign body, left knee, initial encounter - Discharge Information Instructions: Laceration Care, Adult Referrals: Connor Melchor MD [Primary Care Provider] - Additional Instructions: The following information is given to patients seen in the emergency department who are being discharged to home. This information is to outline your options for follow-up care. We provide all patients seen in our emergency department with a follow-up referral. The need for follow-up, as well as the timing and circumstances, are variable depending upon the specifics of your emergency department visit. If you don't have a primary care physician on staff, we will provide you with a referral. We always advise you to contact your personal physician following an emergency department visit to inform them of the circumstance of the visit and for follow-up with them and/or the need for any referrals to a consulting sp ecialist. The emergency department will also refer you to a specialist when appropriate. This referral assures that you have the opportunity for follow-up care with a specialist. All of these measure are taken in an effort to provide you with optimal care, which includes your follow-up. Under all circumstances we always encourage you to contact your private physician who remains a resource for coordinating your care. When calling for follow-up care, please make the office aware that this follow-up is from your recent emergency room visit. If for any reason you are refused follow-up, please contact the [facility] Emergency Department at and asked to speak to the emergency department charge nurse. Please follow up with your primary care physician. If you do not have a primary care physician, see below: [facility] [address] [place] [id number] [facility] [address] [place] [id number] [facility] - [facility] [address] [place] [id number] Please come back in 10 to 14 days to have sutures reassess for removal. Sepsis Event Note (ED) - Focused Exam Vital Signs: Vital Signs Temp Pulse Resp BP Pulse Ox 01/21/21 13:42 98 01/21/21 13:41 97.9 F 97 18 104/69 77 L
[2021-01-21] MEDS ORDERED: Acetaminophen/oxyCODONE 325-5 MG Tab PO ONE (14:01)
[2021-01-21] MEDS ORDERED: Lidocaine 1% with EPINEPHrine 1:100,000 20 ML MDV INJECT ONE (14:26)
--- NOTE | 2021-01-21 15:23 | CT ---
INDICATION: Fall on Eliquis. COMPARISON: CT head 12/03/2020. TECHNIQUE: CT of the head without IV contrast. Coronal and sagittal reconstructions are provided. FINDINGS: No intracranial hemorrhage, mass effect, or evidence of acute infarct. No midline shift. No abnormal extra-axial fluid collections. Normal caliber ventricular system. Stable small hyperdensity within the occipital horn of the right lateral ventricle. Moderate chronic small vessel ischemic disease. Orbits and extraocular muscles are symmetric. 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 The paranasal sinuses and mastoid air cells are otherwise clear. No acute fracture identified. Soft tissues are unremarkable. IMPRESSION: : 1. No acute intracranial findings. 2. Moderate chronic small vessel ischemic disease. 3. 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 Please note that all CT scans at this facility use dose modulation, iterative reconstruction, and/or weight-based dosing when appropriate to reduce radiation dose to as low as reasonably achievable. Dictated by Glenys Wang MD @ 01/21/2021 3:21:51 PM (Electronically Signed)
[2021-01-21 16:25] VITALS: BP 121/72; PULSE 88
== END 2021-01-21 15:50 | disposition home or self-care (01) ==
LOC: MW.ED 13:41
DX: S81.012A Laceration without foreign body, left knee, initial encounter (principal); I48.91 Unspecified atrial fibrillation; I11.0 Hypertensive heart disease with heart failure; I50.9 Heart failure, unspecified; I25.2 Old myocardial infarction; J44.9 Chronic obstructive pulmonary disease, unspecified; K21.9 Gastro-esophageal reflux disease without esophagitis; M06.9 Rheumatoid arthritis, unspecified; Z79.01 Long term (current) use of anticoagulants; Z88.8 Allergy status to other drugs, medicaments and biological substances; Z88.1 Allergy status to other antibiotic agents; Z79.899 Other long term (current) drug therapy; W01.0XXA Fall on same level from slipping, tripping and stumbling without subsequent striking against object, initial encounter
CPT/HCPCS: 12005; 70450; 99283; A9270

== ENCOUNTER 2021-02-01 12:15 | Observation (INO) | payer MEDICARE, OTHER ==
--- NOTE | 2021-02-01 13:04 | EDM.PDOC ---
ED HPI GENERAL MEDICAL PROBLEM - General Chief Complaint: Skin Complaint Stated Complaint: RASH AROUND SURGICAL INCISION ON RIGHT SHOULDER Time Seen by Provider: 02/01/21 12:16 Source of Information: Reports: Patient History Limitations: Reports: No Limitations - History of Present Illness INITIAL COMMENTS - FREE TEXT/NARRATIVE: Patient is a 61-year-old male presents today for a discoloration to his right shoulder. Patient had multiple surgeries had a septic shoulder joint which required drainage in the past now recently started on azithromycin for possible pneumonia. He denies any falls or hitting the arm. Good range of motion does not report much pain in the area. This discoloration started earlier today and is not sure where he came from. Right Shoulder Pain Score (Numeric/FACES): 7 - Related Data Allergies Allergy/AdvReac Type Severity Reaction Status Date / Time itraconazole [From Sporanox] Allergy Unknown Confusion Verified 02/01/21 20:53 levofloxacin [From Levaquin] Allergy Unknown Other Verified 02/01/21 20:53 meropenem Allergy Swelling Verified 02/01/21 20:53 Home Meds: Home Meds Apixaban [Eliquis] 5 mg PO BID tablet 07/21/18 [Rx] Metoprolol Tartrate [Lopressor] 50 mg PO BID tablet 07/21/18 [Rx] Fluticasone/Vilanterol [Breo Ellipta 200-25 MCG Inhalation Kit] 1 puff INH DAILY 08/10/20 [History] HYDROmorphone [Dilaudid] 4 mg PO Q4H PRN 08/10/20 [History] Testosterone 100 mg TD DAILY 08/10/20 [History] Tiotropium [place] [Spiriva Respimat] 2 puff INH DAILY 09/14/20 [History] Gabapentin [Neurontin] 800 mg PO QID tablet 09/16/20 [Rx] Furosemide [Lasix] 40 mg PO BID PRN 09/21/20 [History] Pantoprazole Sodium [Protonix] 40 mg PO DAILY 14 Days #14 tablet. 09/24/20 [Rx] predniSONE [Prednisone] 20 mg PO DAILY 14 Days #14 tablet 09/24/20 [Rx] Omeprazole 40 mg PO ACBREAKFAST 11/21/20 [History] Potassium Chloride [Klor-Con M10] 10 meq PO DAILY 11/21/20 [History] methylPREDNISolone Sod Succ [Solu-MEDROL] 40 mg IVPUSH Q8H sdv 11/24/20 [Rx] Clindamycin HCl 300 mg PO TID 7 Days #21 capsule 12/26/20 [Rx] Azithromycin 1 dose PO DAILY 02/01/21 [History] Past Medical History HEENT History: Reports: Cataract Other HEENT History: dental fillings due to caries; recent tooth fracture Cardiovascular History: Reports: Afib, Cardiomyopathy, Heart Failure, Hypertension, CO Other Cardiovascular History: Heart attack April 2010, Pulmonary embolism 2009 Respiratory History: Reports: Asthma, Bronchitis, Recurrent, COPD, PE, Pneumonia, Recurrent, Other (See Below) Other Respiratory History: Chronic pulmonary aspergillosis, 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 on 02 at home - 2liters at daytime, 4 liters at bedtimeper nasal cannula Gastrointestinal History: Reports: Diverticulosis, GERD, Other (See Below) Other Gastrointestinal History: diverticulitis, peristalisis diagnosed with egd 2 weeks ago Genitourinary History: Reports: BPH, Renal Calculus, Renal Disease, UTI, Recurrent Other Genitourinary History: Left nephrectomy Musculoskeletal History: Reports: Arthritis, Back Pain, Chronic, Gout, Osteoporosis, RA, Other (See Below) Other Musculoskeletal History: lumbar fracture, rotator cap syndrome, bilateral feet fracture, osteomyelitis; hammer toes, elbow strain. bilateral achilles tendon ruptures and repair., hip replacement, removal of left humerous, reverse right shoulder replacement Neurological History: Reports: Neuropathy, Peripheral, TIA Other Neuro History: TIA 1999 Psychiatric History: Reports: Anxiety, Depression Endocrine/Metabolic History: Reports: Osteoporosis Hematologic History: Reports: Anticoagulation Therapy Immunologic History: Reports: Immunosuppression Oncologic (Cancer) History: Reports: Other (See Below) Other Oncologic History: melanoma of the right eye Dermatologic History: Reports: Cellulitis, Melanoma, Other (See Below) Other Dermatologic History: melanoma in the eye, [facility] steroid use - Infectious Disease History Infectious Disease History: Reports: Chicken Pox, Measles Other Infectious Disease History: 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 No explantation--they apparently just treated him with IV abx for months. - Past Surgical History Head Surgeries/Procedures: Reports: None HEENT Surgical History: Reports: Cataract Surgery Cardiovascular Surgical History: Reports: None Respiratory Surgical History: Reports: Lung Resection Other Respiratory Surgeries/Procedures: intubated last Feb 2018 and transfered to [place] [facility] Surgical History: Reports: Colonoscopy Other GI Surgeries/Procedures: colostomy and reversal 20yrs ago Male Surgical History: Reports: None Endocrine Surgical History: Reports: None Neurological Surgical History: Reports: None Musculoskeletal Surgical History: Reports: Amputation, Shoulder Surgery, Other (See Below) Other Musculoskeletal Surgeries/Procedures:: L shoulder and left hip surgery. R shohilda- antibiotic beads with sx february 2020 Oncologic Surgical History: Reports: None Dermatological Surgical History: Reports: None Social & Family History - Family History Family Medical History: No Pertinent Family History - Tobacco Use Tobacco Use Status *Q: Never Tobacco User - Caffeine Use Caffeine Use: Reports: Coffee Other Caffeine Use: occasional coffee - Recreational Drug Use Recreational Drug Use: No - Living Situation & Occupation Living situation: Reports: Single, with Family (sons) Occupation: Disabled ED ROS GENERAL - Review of Systems Review Of Systems: See Below Constitutional: Reports: No Symptoms HEENT: Reports: No Symptoms Respiratory: Reports: No Symptoms Cardiovascular: Reports: No Symptoms Endocrine: Reports: No Symptoms GI/Abdominal: Reports: No Symptoms : Reports: No Symptoms Musculoskeletal: Reports: No Symptoms Skin: Reports: Change in Color Neurological: Reports: No Symptoms Psychiatric: Reports: No Symptoms Hematologic/Lymphatic: Reports: No Symptoms Immunologic: Reports: No Symptoms ED EXAM, SKIN/RASH Exam: See Below Exam Limited By: No Limitations General Appearance: Alert, WD/WN, No Apparent Distress Eye Exam: Bilateral Eye: EOMI, PERRL Respiratory/Chest: No Respiratory Distress, Lungs Clear, Normal Breath Sounds Cardiovascular: Normal Peripheral Pulses, Regular Rate, Rhythm GI/Abdominal: Normal Bowel Sounds Extremities: Normal Inspection, Normal Range of Motion Neurological: Alert, Oriented Skin: Other (Coloration to the right shoulder) Course - Vital Signs Last Recorded V/S: Last Vital Signs Temp 97.4 F 02/02/21 07:00 Pulse 80 02/02/21 08:05 Resp 16 02/02/21 07:00 BP 126/77 02/02/21 08:05 Pulse Ox 100 02/02/21 07:00 - Orders/Labs/Meds Orders: Active Orders 24 hr Category Date Time Status RT Aerosol Therapy [RC] ASDIRECTED Care 02/01/21 14:35 Active Guaiac [OCCULT BLOOD DIAGNOSTIC] [OP] Stat Lab 02/01/21 14:34 Ordered Medication Orders Azithromycin (Azithromycin 250 Mg Tab) 250 mg PO DAILY [facility] Last Admin: 02/02/21 08:05 Dose: 250 mg Documented by: JONH Gabapentin (Gabapentin 800 Mg Tab) 800 mg PO QID [facility] Last Admin: 02/02/21 06:25 Dose: 800 mg Documented by: Admin: 02/02/21 00:11 Dose: 800 mg Documented by: FAIZA Hydromorphone HCl (Hydromorphone 2 Mg Tab) 4 mg PO Q4H PRN PRN Reason: Pain Last Admin: 02/02/21 06:30 Dose: 4 mg Documented by: Admin: 02/01/21 22:25 Dose: 4 mg Documented by: FAIZA Vancomycin HCl 1 gm/ Sodium (Chloride) 250 mls @ 166.667 mls/hr IV Q24H [facility] Last Admin: 02/01/21 22:23 Dose: Not Given Documented by: FAIZA Metoprolol Tartrate (Metoprolol Tartrate 50 Mg Tab) 50 mg PO BID [facility] Last Admin: 02/02/21 08:05 Dose: 50 mg Documented by: Admin: 02/01/21 23:29 Dose: Not Given Documented by: FAIZA Omeprazole (Omeprazole 20 Mg Cap.Cr) 40 mg PO ACBREAKFAST [facility] Last Admin: 02/02/21 06:31 Dose: 40 mg Documented by: FAIZA Vancomycin HCl (Pharmacy To Dose - Vancomycin) 1 dose .XX ASDIRECTED [facility] Labs: Laboratory Tests 02/01/21 02/01/21 02/01/21 Range/Units 13:05 13:05 13:05 WBC 10.60 (4.0-11.0) K/uL RBC 3.58 L (4.50-5.90) M/uL Hgb 7.6 L (13.0-17.0) g/dL Hct 28.5 L (38.0-50.0) % MCV 79.6 L (80.0-98.0) fL MCH 21.2 L (27.0-32.0) pg MCHC 26.7 L (31.0-37.0) g/dL RDW Std Deviation 53.2 (28.0-62.0) fl RDW Coeff of Tre 18 H (11.0-15.0) % Plt Count 300 (150-400) K/uL MPV 9.40 (7.40-12.00) fL Neut % (Auto) 84.5 H (48.0-80.0) % Lymph % (Auto) 12.0 L (16.0-40.0) % [place] % (Auto) 3.3 (0.0-15.0) % Eos % (Auto) 0.1 (0.0-7.0) % Baso % (Auto) 0.1 (0.0-1.5) % Neut # (Auto) 9.0 H (1.4-5.7) K/uL Lymph # (Auto) 1.3 (0.6-2.4) K/uL [place] # (Auto) 0.4 (0.0-0.8) K/uL Eos # (Auto) 0.0 (0.0-0.7) K/uL Baso # (Auto) 0.0 (0.0-0.1) K/uL Nucleated RBC % 0.0 /100WBC Nucleated RBCs # 0 K/uL INR 1.02 APTT 20.7 (18.6-31.3) SEC Sodium 139 (136-148) mmol/L Potassium 5.0 (3.5-5.1) mmol/L Chloride 104 (98-107) mmol/L Carbon Dioxide 31.5 (21.0-32.0) mmol/L BUN 30 H (7.0-18.0) mg/dL Creatinine 1.7 H (0.8-1.3) mg/dL Est Cr Clr Drug Dosing 39.69 mL/min Estimated GFR (MDRD) 41.2 ml/min Glucose 161 H (74-106) mg/dL Calcium 8.7 (8.5-10.1) mg/dL 02/01/21 Range/Units 16:54 WBC 8.23 (4.0-11.0) K/uL RBC 3.36 L (4.50-5.90) M/uL Hgb 7.2 L (13.0-17.0) g/dL Hct 26.9 L (38.0-50.0) % MCV 80.1 (80.0-98.0) fL MCH 21.4 L (27.0-32.0) pg MCHC 26.8 L (31.0-37.0) g/dL RDW Std Deviation 54.2 (28.0-62.0) fl RDW Coeff of Tre 19 H (11.0-15.0) % Plt Count 277 (150-400) K/uL MPV 8.90 (7.40-12.00) fL Neut % (Auto) (48.0-80.0) % Lymph % (Auto) (16.0-40.0) % [place] % (Auto) (0.0-15.0) % Eos % (Auto) (0.0-7.0) % Baso % (Auto) (0.0-1.5) % Neut # (Auto) (1.4-5.7) K/uL Lymph # (Auto) (0.6-2.4) K/uL [place] # (Auto) (0.0-0.8) K/uL Eos # (Auto) (0.0-0.7) K/uL Baso # (Auto) (0.0-0.1) K/uL Nucleated RBC % 0.0 /100WBC Nucleated RBCs # 0 K/uL INR APTT (18.6-31.3) SEC Sodium (136-148) mmol/L Potassium (3.5-5.1) mmol/L Chloride (98-107) mmol/L Carbon Dioxide (21.0-32.0) mmol/L BUN (7.0-18.0) mg/dL Creatinine (0.8-1.3) mg/dL Est Cr Clr Drug Dosing mL/min Estimated GFR (MDRD) ml/min Glucose (74-106) mg/dL Calcium (8.5-10.1) mg/dL Meds: Medications Generic Name Dose Route Start Last Admin Trade Name Freq PRN Reason Stop Dose Admin Azithromycin 250 mg 02/02/21 09:00 02/02/21 08:05 Azithromycin 250 Mg Tab PO 250 mg DAILY DANIELITO Administration Gabapentin 800 mg 02/02/21 00:00 02/02/21 06:25 Gabapentin 800 Mg Tab PO 800 mg QID DANIELITO Administration Hydromorphone HCl 4 mg 02/01/21 21:50 02/02/21 06:30 Hydromorphone 2 Mg Tab PO 4 mg Q4H PRN Administration Pain Vancomycin HCl 1 gm/ Sodium 250 mls @ 166.667 mls/hr 02/01/21 20:00 02/01/21 22:23 Chloride IV Not Given Q24H DANIELITO Metoprolol Tartrate 50 mg 02/01/21 21:00 02/02/21 08:05 Metoprolol Tartrate 50 Mg Tab PO 50 mg BID DANIELITO Administration Omeprazole 40 mg 02/02/21 07:30 02/02/21 06:31 Omeprazole 20 Mg Cap.Cr PO 40 mg ACBREAKFAST DANIELITO Administration Vancomycin HCl 1 dose 02/01/21 20:00 Pharmacy To Dose - Vancomycin .XX ASDIRECTED DANIELITO Discontinued Medications Generic Name Dose Route Start Last Admin Trade Name Freq PRN Reason Stop Dose Admin Albuterol/Ipratropium 3 ml 02/01/21 14:35 02/01/21 14:43 Albuterol/Ipratropium 3.0-0.5 Mg/3 Ml Neb Soln NEB 02/01/21 14:36 3 ml ONETIME ONE Administration Sodium Chloride Confirm 02/01/21 22:00 02/01/21 22:23 Normal Saline (Advbag) Administered 02/01/21 22:01 Not Given Dose 250 mls @ as directed .ROUTE .STK-MED ONE Non-Formulary Medication 4 mg 02/01/21 18:56 Hydromorphone PO Q4H PRN Pain Vancomycin HCl Confirm 02/01/21 21:59 02/01/21 22:23 Vancomycin 1 Gm Advvial Administered 02/01/21 22:00 1 gm Dose Administration 1 gm .ROUTE .STK-MED ONE - Re-Assessments/Exams Free Text/Narrative Re-Assessment/Exam: 02/01/21 17:53 Patient hemoglobin was 7.6 we repeated it went down to 7.2. We spoke to [facility] orth[facility]ics at [place] and does not believe patient needs to be transferred at this is in the subcutaneous tissue and unlikely to be the cause of the patient three-point drop in hemoglobin from a month ago. Patient vitals are stable here looks well. We also spoke to Dr. Park general surgery here who again agrees that this is unlikely to be a drop in his hemoglobin from subcutaneous tissue we will admit to medicine to ops and continue to trend his hemoglobin. The CT scan again showed that this is in the subcutaneous tissue. Due to patient being on Eliquis we will admit for observation. Departure - Departure Time of Disposition: 17:54 Disposition: Refer to Observation Condition: Good Clinical Impression: Subcutaneous hematoma - Discharge Information Critical Care Note - Critical Care Note Total Time (mins): 45 Comments: Critical Care Procedure Note Authorized and Performed by: Dr. Collins Total critical care time: Approximately Due to a high probability of clinically significant, life threatening deteriora tion, the patient required my highest level of preparedness to intervene emergently and I personally spent this critical care time directly and personally managing the patient. This critical care time included obtaining a history; examining the patient; pulse oximetry; ordering and review of studies; arranging urgent treatment with development of a management plan; evaluation of patient's response to treatment; frequent reassessment; and, discussions with other providers. This critical care time was performed to assess and manage the high probability of imminent, life-threatening deterioration that could result in multi-organ failure. It was exclusive of separately billable procedures and treating other patients and teaching time. Sepsis Event Note (ED) - Evaluation Sepsis Screening Result: No Definite Risk - My Orders Last 24 Hours: My Active Orders 02/01/21 14:34 Guaiac [OCCULT BLOOD DIAGNOSTIC] [OP] Stat 02/01/21 14:35 RT Aerosol Therapy [RC] ASDIRECTED - Assessment/Plan Last 24 Hours: My Active Orders 02/01/21 14:34 Guaiac [OCCULT BLOOD DIAGNOSTIC] [OP] Stat 02/01/21 14:35 RT Aerosol Therapy [RC] ASDIRECTED Plan: Patient is a 61-year-old male presents today for some discoloration to the right shoulder. This could be a possible bruise or hematoma. We will obtain labs and a CT scan of the shoulder and reassess patient.
[2021-02-01 13:25] LABS: CARBON DIOXIDE,CO2 31.5 mmol/L (21.0-32.0)
--- NOTE | 2021-02-01 14:02 | CT ---
HISTORY: Bruising. Possible hematoma. TECHNIQUE: Noncontrast CT of the right shoulder. COMPARISON: 12/25/2020. FINDINGS: There is chronic severe erosion of the humeral head and glenoid with joint effusion. There is superior subluxation of the proximal humerus. Chronic diffuse atrophy of the rotator cuff musculature. Arthrosis of the AC joint. There is an approximately 7.5 x 5.5 x 4 cm complex process within the soft tissues anterior to the glenohumeral joint. This appears associated the deltoid muscle. It demonstrates some calcifications about its periphery. Overall size is similar to the prior CT. It may reflect a chronic hematoma versus chronic fluid collection of other etiology. There is some adjacent increased infiltration of the subcutaneous tissues which may relate to subcutaneous hemorrhage, cellulitis or edema. Note is made of several remote right-sided rib fractures. Areas of bronchiectasis are present within the right lung. IMPRESSION: 1. 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 2. Complex process anterior to the right shoulder associated with the deltoid may reflect a chronic hematoma or chronic fluid collection of other etiology. 3. Increased infiltration the subcutaneous tissues of the anterior shoulder may relate to subcutaneous hemorrhage, edema or cellulitis. 4. Chronic atrophy of the rotator cuff musculature. Please note that all CT scans at this facility use dose modulation, iterative reconstruction, and/or weight-based dosing when appropriate to reduce radiation dose to as low as reasonably achievable. Dictated by Iggy Orosco MD @ 02/01/2021 2:00:13 PM (Electronically Signed)
[2021-02-01] MEDS ORDERED: Albuterol/Ipratropium 3.0-0.5 MG/3 ML Neb Soln NEB ONE (14:35)
[2021-02-01] MEDS ORDERED: HYDROMORPHONE 4 MG PO PRN (18:56)
--- NOTE | 2021-02-01 19:09 | PCM.HP.2 ---
H&P History of Present Illness - General Date of Service: 02/01/21 Admit Problem/Dx: Admission Diagnosis/Problem Admission Diagnosis/Problem Hematoma and contusion - History of Present Illness Initial Comments - Free Text/Narative: 60-year-old gentleman with a history significant for bronchopulmonary aspergillosis, pulmonary hypertension, atrial fibrillation, on Eliquis, CHF, chronic kidney disease, status post left nephrectomy, obstructive sleep apnea who was recently transferred to [place] for septic arthritis of his shoulder which he recently had drained and antibiotic beads placed. He was recently placed on Azithromycin by Dr. Melchor as precautionary measures as he was complaining of some shortness of breath. He woke up this morning with a large discoloration over his right shoulder. CT scan of shoulder suggestive of hematoma. ER provider called orthopedics but did not recommend transfer. ER provider referred to Hospitalist service to trend Hgb as Hgb is low but patient has a history of anemia. Right Shoulder Pain Score (Numeric/FACES): 7 - Related Data Allergies/Adverse Reactions: Allergies Allergy/AdvReac Type Severity Reaction Status Date / Time itraconazole [From Sporanox] Allergy Unknown Confusion Verified 02/01/21 12:32 levofloxacin [From Levaquin] Allergy Unknown Other Verified 02/01/21 12:32 meropenem Allergy Swelling Verified 02/01/21 12:32 Home Medications: Home Meds Apixaban [Eliquis] 5 mg PO BID tablet 07/21/18 [Rx] Metoprolol Tartrate [Lopressor] 50 mg PO BID tablet 07/21/18 [Rx] Fluticasone/Vilanterol [Breo Ellipta 200-25 MCG Inhalation Kit] 1 puff INH DAILY 08/10/20 [History] HYDROmorphone [Dilaudid] 4 mg PO Q4H PRN 08/10/20 [History] Testosterone 100 mg TD DAILY 08/10/20 [History] Tiotropium [place] [Spiriva Respimat] 2 puff INH DAILY 09/14/20 [History] Gabapentin [Neurontin] 800 mg PO QID tablet 09/16/20 [Rx] Furosemide [Lasix] 40 mg PO DAILY PRN 09/21/20 [History] Pantoprazole Sodium [Protonix] 40 mg PO DAILY 14 Days #14 tablet. 09/24/20 [R x] predniSONE [Prednisone] 20 mg PO DAILY 14 Days #14 tablet 09/24/20 [Rx] Omeprazole 40 mg PO ACBREAKFAST 11/21/20 [History] Potassium Chloride [Klor-Con M10] 10 meq PO DAILY 11/21/20 [History] methylPREDNISolone Sod Succ [Solu-MEDROL] 40 mg IVPUSH Q8H sdv 11/24/20 [Rx] Clindamycin HCl 300 mg PO TID 7 Days #21 capsule 12/26/20 [Rx] Azithromycin 1 dose PO DAILY 02/01/21 [History] Past Medical History HEENT History: Reports: Cataract Other HEENT History: dental fillings due to caries; recent tooth fracture Cardiovascular History: Reports: Afib, Cardiomyopathy, Heart Failure, Hypertension, [place] Other Cardiovascular History: Heart attack April 2010, Pulmonary embolism 2009 Respiratory History: Reports: Asthma, Bronchitis, Recurrent, COPD, PE, Pneumo matt, Recurrent, Other (See Below) Other Respiratory History: Chronic pulmonary aspergillosis, 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 on 02 at home - 2liters at daytime, 4 liters at bedtimeper nasal cannula Gastrointestinal History: Reports: Diverticulosis, GERD, Other (See Below) Other Gastrointestinal History: diverticulitis, peristalisis diagnosed with egd 2 weeks ago Genitourinary History: Reports: BPH, Renal Calculus, Renal Disease, UTI, Recurrent Other Genitourinary History: Left nephrectomy Musculoskeletal History: Reports: Arthritis, Back Pain, Chronic, Gout, Osteoporosis, RA, Other (See Below) Other Musculoskeletal History: lumbar fracture, rotator cap syndrome, bilateral feet fracture, osteomyelitis; hammer toes, elbow strain. bilateral achilles tendon ruptures and repair., hip replacement, removal of left humerous, reverse right shoulder replacement Neurological History: Reports: Neuropathy, Peripheral, TIA Other Neuro History: TIA 1999 Psychiatric History: Reports: Anxiety, Depression Endocrine/Metabolic History: Reports: Osteoporosis Hematologic History: Reports: Anticoagulation Therapy Immunologic History: Reports: Immunosuppression Oncologic (Cancer) History: Reports: Other (See Below) Other Oncologic History: melanoma of the right eye Dermatologic History: Reports: Cellulitis, Melanoma, Other (See Below) Other Dermatologic History: melanoma in the eye, 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 No explantation--they apparently just treated him with IV abx for months. - Past Surgical History Head Surgeries/Procedures: Reports: None HEENT Surgical History: Reports: Cataract Surgery Cardiovascular Surgical History: Reports: None Respiratory Surgical History: Reports: Lung Resection Other Respiratory Surgeries/Procedures: intubated last Feb 2018 and transfered to [place] GI Surgical History: Reports: Colonoscopy Other GI Surgeries/Procedures: colostomy and reversal 20yrs ago Male Surgical History: Reports: None Endocrine Surgical History: Reports: None Neurological Surgical History: Reports: None Musculoskeletal Surgical History: Reports: Amputation, Shoulder Surgery, Other (See Below) Other Musculoskeletal Surgeries/Procedures:: L shoulder and left hip surgery. 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 with sx february 2020 Oncologic Surgical History: Reports: None Dermatological Surgical History: Reports: None Social & Family History - Family History Family Medical History: No Pertinent Family History - Tobacco Use Tobacco Use Status *Q: Never Tobacco User - Caffeine Use Caffeine Use: Reports: Coffee Other Caffeine Use: occasional coffee - Recreational Drug Use Recreational Drug Use: No - Living Situation & Occupation Living situation: Reports: Single, with Family (sons) Occupation: Disabled H&P Review of Systems - Review of Systems: Review Of Systems: Comprehensive ROS is negative, except as noted in HPI. Exam - Exam Exam: See Below - Vital Signs Vital Signs: Last Vital Signs Temp 36.6 C 02/01/21 12:34 Pulse 82 02/01/21 17:48 Resp 16 02/01/21 15:17 BP 125/67 02/01/21 18:41 Pulse Ox 93 L 02/01/21 18:41 Weight: 68.039 kg - Exam General: Alert, Oriented HEENT: Mucosa Moist & [place] Lungs: Clear to Auscultation, Normal Respiratory Effort Cardiovascular: Regular Rate, Regular Rhythm GI/Abdominal Exam: Normal Bowel Sounds, Soft, Non-Tender Extremities: Non-Tender, No Pedal Edema Skin: Rash (large brown rash over anterior right shoulder) - Patient Data Lab Results Last 24 hrs: Laboratory Results - last 24 hr 02/01/21 02/01/21 02/01/21 Range/Units 13:05 13:05 13:05 WBC 10.60 (4.0-11.0) K/uL RBC 3.58 L (4.50-5.90) M/uL Hgb 7.6 L (13.0-17.0) g/dL Hct 28.5 L (38.0-50.0) % MCV 79.6 L (80.0-98.0) fL MCH 21.2 L (27.0-32.0) pg MCHC 26.7 L (31.0-37.0) g/dL RDW Std Deviation 53.2 (28.0-62.0) fl RDW Coeff of Tre 18 H (11.0-15.0) % Plt Count 300 (150-400) K/uL MPV 9.40 (7.40-12.00) fL Neut % (Auto) 84.5 H (48.0-80.0) % Lymph % (Auto) 12.0 L (16.0-40.0) % [place] % (Auto) 3.3 (0.0-15.0) % Eos % (Auto) 0.1 (0.0-7.0) % Baso % (Auto) 0.1 (0.0-1.5) % Neut # (Auto) 9.0 H (1.4-5.7) K/uL Lymph # (Auto) 1.3 (0.6-2.4) K/uL [place] # (Auto) 0.4 (0.0-0.8) K/uL Eos # (Auto) 0.0 (0.0-0.7) K/uL Baso # (Auto) 0.0 (0.0-0.1) K/uL Nucleated RBC % 0.0 /100WBC Nucleated RBCs # 0 K/uL INR 1.02 APTT 20.7 (18.6-31.3) SEC Sodium 139 (136-148) mmol/L Potassium 5.0 (3.5-5.1) mmol/L Chloride 104 (98-107) mmol/L Carbon Dioxide 31.5 (21.0-32.0) mmol/L BUN 30 H (7.0-18.0) mg/dL Creatinine 1.7 H (0.8-1.3) mg/dL Est Cr Clr Drug Dosing 39.69 mL/min Estimated GFR (MDRD) 41.2 ml/min Glucose 161 H (74-106) mg/dL Calcium 8.7 (8.5-10.1) mg/dL 02/01/21 Range/Units 16:54 WBC 8.23 (4.0-11.0) K/uL RBC 3.36 L (4.50-5.90) M/uL Hgb 7.2 L (13.0-17.0) g/dL Hct 26.9 L (38.0-50.0) % MCV 80.1 (80.0-98.0) fL MCH 21.4 L (27.0-32.0) pg MCHC 26.8 L (31.0-37.0) g/dL RDW Std Deviation 54.2 (28.0-62.0) fl RDW Coeff of Tre 19 H (11.0-15.0) % Plt Count 277 (150-400) K/uL MPV 8.90 (7.40-12.00) fL Neut % (Auto) (48.0-80.0) % Lymph % (Auto) (16.0-40.0) % [place] % (Auto) (0.0-15.0) % Eos % (Auto) (0.0-7.0) % Baso % (Auto) (0.0-1.5) % Neut # (Auto) (1.4-5.7) K/uL Lymph # (Auto) (0.6-2.4) K/uL [place] # (Auto) (0.0-0.8) K/uL Eos # (Auto) (0.0-0.7) K/uL Baso # (Auto) (0.0-0.1) K/uL Nucleated RBC % 0.0 /100WBC Nucleated RBCs # 0 K/uL INR APTT (18.6-31.3) SEC Sodium (136-148) mmol/L Potassium (3.5-5.1) mmol/L Chloride (98-107) mmol/L Carbon Dioxide (21.0-32.0) mmol/L BUN (7.0-18.0) mg/dL Creatinine (0.8-1.3) mg/dL Est Cr Clr Drug Dosing mL/min Estimated GFR (MDRD) ml/min Glucose (74-106) mg/dL Calcium (8.5-10.1) mg/dL Result Diagrams: 02/01/21 16:54 02/01/21 13:05 Sepsis Event Note - Evaluation Sepsis Screening Result: No Definite Risk - Focused Exam Vital Signs: Vital Signs Temp Pulse Resp BP Pulse Ox 02/01/21 18:41 125/67 93 L 02/01/21 17:48 82 120/59 L 98 02/01/21 17:17 73 111/66 99 02/01/21 16:17 78 106/60 100 02/01/21 15:17 66 16 100/64 100 02/01/21 14:23 85 18 109/83 96 02/01/21 12:50 97 02/01/21 12:34 36.6 C 84 16 99/53 L 94 L Problem List Initiated/Reviewed/Updated: Yes Orders Last 24hrs: Active Orders 24 hr Category Date Time Status Patient Status [ADT] Routine ADT 02/01/21 17:52 Active RT Aerosol Therapy [RC] ASDIRECTED Care 02/01/21 14:35 Active CORONAVIRUS COVID-19 [place] [MOLEC] Stat Lab 02/01/21 18:43 Ordered Guaiac [OCCULT BLOOD DIAGNOSTIC] [OP] Stat Lab 02/01/21 14:34 Ordered Azithromycin Med 02/02/21 09:00 Ordered 1 dose PO DAILY Gabapentin [Neurontin] Med 02/02/21 00:00 Ordered 800 mg PO QID HYDROmorphone Med 02/01/21 18:56 Ordered 4 mg PO Q4H PRN Metoprolol Tartrate [Lopressor] Med 02/01/21 21:00 Ordered 50 mg PO BID Omeprazole [Omeprazole] Med 02/02/21 07:30 Ordered 40 mg PO ACBREAKFAST Pharmacy to Dose - Vancomycin Med 02/01/21 19:00 Ordered 1 dose .XX ASDIRECTED Medication Orders Gabapentin (Gabapentin 800 Mg Tab) 800 mg PO QID [facility] Metoprolol Tartrate (Metoprolol Tartrate 50 Mg Tab) 50 mg PO BID [facility] Non-Formulary Medication (Azithromycin) 1 dose PO DAILY [facility] Non-Formulary Medication (Hydromorphone) 4 mg PO Q4H PRN PRN Reason: Pain Non-Formulary Medication (Omeprazole [Omeprazole]) 40 mg PO ACBREAKFAST [facility] Vancomycin HCl (Pharmacy To Dose - Vancomycin) 1 dose .XX ASDIRECTED [facility] Assessment/Plan Comment:: 61 yo male admitted with hematoma of right shoulder. We will trend Hgb. Will hold Eliquis. Cellulitis is thought to be less likely but will place on vancomycin for tonight.
[2021-02-01] MEDS ORDERED: Vancomycin 1 GM AdvVial ONE (21:59)
[2021-02-01] MEDS ORDERED: Sodium Chloride 0.9% 250 ML ONE (22:00)
[2021-02-01] MEDS: HYDROmorphone 2 MG Tab PO PRN (22:25)
[2021-02-01] MEDS: Metoprolol Tartrate 50 MG Tab PO SCH (23:29)
[2021-02-02] MEDS: Gabapentin 800 MG Tab PO SCH ×4 (00:11→17:48)
[2021-02-02] MEDS: HYDROmorphone 2 MG Tab PO PRN ×2 (06:30→12:43)
[2021-02-02] MEDS ORDERED: Omeprazole 20 MG Cap.CR PO SCH (07:30)
[2021-02-02] MEDS: Metoprolol Tartrate 50 MG Tab PO SCH (08:05)
[2021-02-02] MEDS ORDERED: Azithromycin 250 MG Tab PO SCH (09:00)
[2021-02-02 10:22] LABS: CARBON DIOXIDE,CO2 28.5 mmol/L (21.0-32.0); POTASSIUM,K 4.4 mmol/L (3.5-5.1)
[2021-02-02] MEDS ORDERED: Furosemide 20 MG/2 ML VIAL IVPUSH SCH (10:33)
[2021-02-02] MEDS ORDERED: predniSONE 20 MG Tab PO SCH ×2 (13:15→13:30)
--- NOTE | 2021-02-02 13:50 | PCM.DCSUM1 ---
Discharge Summary - Hospital Course Brief History: 60-year-old gentleman with a history significant for bronchopulmonary aspergillosis, pulmonary hypertension, atrial fibrillation, on Eliquis, CHF, chronic kidney disease, status post left nephrectomy, obstructive sleep apnea who was recently transferred to [place] for septic arthritis of his shoulder which he recently had drained and antibiotic beads placed. He was recently placed on Azithromycin by Dr. Melchor as precautionary measures as he was complaining of some shortness of breath. He woke up this morning with a large discoloration over his right shoulder. CT scan of shoulder suggestive of hematoma. ER provider called orthopedics but did not recommend transfer. ER provider referred to Hospitalist service to trend Hgb as Hgb is low but patient has a history of anemia. - Discharge Data Discharge Date: 02/02/21 Discharge Disposition: Home, Self-Care 01 Condition: Stable - Referral to Home Health Primary Care Physician: Connor Melchor MD - Discharge Diagnosis/Problem(s) (1) Traumatic hematoma of right shoulder SNOMED Code(s): 01315630 ICD Code: S40.011A - CONTUSION OF RIGHT SHOULDER, INITIAL ENCOUNTER Status: Acute Current Visit: Yes (2) CHF (congestive heart failure) SNOMED Code(s): 21428519 ICD Code: I50.9 - HEART FAILURE, UNSPECIFIED Status: Chronic Current Visit: No Qualifiers: Heart failure type: unspecified Heart failure chronicity: chronic Qualified Code(s): I50.9 - Heart failure, unspecified (3) COPD (chronic obstructive pulmonary disease) SNOMED Code(s): 66052193 ICD Code: J44.9 - CHRONIC OBSTRUCTIVE PULMONARY DISEASE, UNSPECIFIED Status: Chronic Current Visit: No (4) Afib SNOMED Code(s): 27715583 ICD Code: I48.91 - UNSPECIFIED ATRIAL FIBRILLATION Status: Chronic Priority: High Current Visit: No Qualifiers: Atrial fibrillation type: persistent (5) Aspergillosis SNOMED Code(s): 87659643 ICD Code: B44.9 - ASPERGILLOSIS, UNSPECIFIED Status: Chronic Priority: Medium Current Visit: No (6) CKD (chronic kidney disease) SNOMED Code(s): 008109391 ICD Code: N18.9 - CHRONIC KIDNEY DISEASE, UNSPECIFIED Status: Chronic Priority: High Current Visit: No Qualifiers: Chronic kidney disease stage: stage 3 (moderate) (7) Cardiomyopathy SNOMED Code(s): 12279894 ICD Code: I42.9 - CARDIOMYOPATHY, UNSPECIFIED Status: Chronic Priority: High Current Visit: No Qualifiers: Cardiomyopathy type: unspecified Qualified Code(s): I42.9 - Cardiomyopathy, unspecified (8) Chronic pain SNOMED Code(s): 80136312 ICD Code: G89.29 - OTHER CHRONIC PAIN Status: Chronic Current Visit: No Qualifiers: Chronic pain type: other chronic pain Qualified Code(s): G89.29 - Other chronic pain (9) History of Clostridium difficile infection SNOMED Code(s): 816046913484946, 249097701396990 ICD Code: Z86.19 - PERSONAL HISTORY OF OTHER INFECTIOUS AND PARASITIC DISEASES Status: Chronic Priority: Medium Current Visit: No (10) History of aspergillosis SNOMED Code(s): 110134136 ICD Code: Z86.19 - PERSONAL HISTORY OF OTHER INFECTIOUS AND PARASITIC DISEASES Status: Chronic Priority: High Current Visit: No (11) History of venous thromboembolism SNOMED Code(s): 300494535 ICD Code: Z86.718 - PERSONAL HISTORY OF OTHER VENOUS THROMBOSIS AND EMBOLISM Status: Chronic Current Visit: No (12) Immunocompromised due to corticosteroids SNOMED Code(s): 350029533 ICD Code: D84.8 - OTHER SPECIFIED IMMUNODEFICIENCIES * DO NOT USE *; T38.0X5A - ADVERSE EFFECT OF GLUCOCORT/SYNTH ANALOG, INIT Status: Chronic Priority: Medium Current Visit: No (13) Osteoarthritis SNOMED Code(s): 125313863 ICD Code: M19.90 - UNSPECIFIED OSTEOARTHRITIS, UNSPECIFIED SITE Status: Chronic Current Visit: No Qualifiers: Osteoarthritis location: unspecified site - Patient Summary/Data Hospital Course: Admission diagnoses Right shoulder hematoma Discharge diagnoses Right shoulder hematoma Anemia of chronic disease status post transfusion x1 unit Juanpablo was admitted as he has had hematoma formation to his right shoulder. This was recently manipulated on due to septic joint. He reports that he is approximately 2 months postop and was doing well but then suddenly had swelling and discoloration of this area. No overt bleeding noted. He came in hemoglobin noted to be 7.6. He is otherwise asymptomatic. He otherwise was doing well at home pain controlled well. He had an incident a few weeks ago where he fell and cut his knee open quite significantly was sutured back in the ER and discharged home. Knee wound appears to be healing well with well approximated edges and no hematoma. Also no signs of infection. ER did speak with orthopedics in [place] who recommended no urgent need in transfer at this time but monitoring overnight. We will set up outpatient follow-up with Dr. Marmolejo, orthopedic who previously performed right shoulder I&D. Worsening anemia could be secondary to new hematoma in right shoulder as well as previous injury to left knee. Repeat hemoglobin this morning 7.3 again no acute bleeding noted. We will transfuse 1 unit today due to history of CHF and other heart disease. Patient verbalized understanding agreement with this. Otherwise he is very eager to be discharged home this is feeling improved and just wanted me sure that his shoulder was not infected. Patient reports he is being set up with referral to [facility] for surgical repair of his right shoulder due to his otherwise extensive immunocompromise state and chronic medical conditions. He previously was set up for shoulder surgery there but due to left knee injury they had to postpone. Patient will set up this appointment for himself as he needs to needs to reschedule it. We will have him see PCP this week have recheck of H&H and hold his Eliquis until he is seen by PCP. Patient verbalized understanding. He will be discharged home today continue all home medications except for Eliquis at this time. Return to the ER if he has any fevers chills worsening shoulder pain or acute signs of bleeding. - Patient Instructions Diet: Regular Diet as Tolerated Activity: No Strenuous Activities Driving: Do Not Drive Showering/Bathing: May Shower Notify Provider of: Fever, Increased Pain, Swelling and Redness, Drainage, Nausea and/or Vomiting - Discharge Plan *PRESCRIPTION DRUG MONITORING PROGRAM REVIEWED*: Not Applicable *COPY OF PRESCRIPTION DRUG MONITORING REPORT IN PATIENT KECIA: Not Applicable Home Medications: Home Meds Metoprolol Tartrate [Lopressor] 50 mg PO BID tablet 07/21/18 [Rx] Fluticasone/Vilanterol [Breo Ellipta 200-25 MCG Inhalation Kit] 1 puff INH DAILY 08/10/20 [History] HYDROmorphone [Dilaudid] 4 mg PO Q4H PRN 08/10/20 [History] Testosterone 100 mg TD DAILY 08/10/20 [History] Tiotropium [place] [Spiriva Respimat] 2 puff INH DAILY 09/14/20 [History] Gabapentin [Neurontin] 800 mg PO QID tablet 09/16/20 [Rx] Furosemide [Lasix] 40 mg PO BID PRN 09/21/20 [History] Omeprazole 40 mg PO ACBREAKFAST 11/21/20 [History] Potassium Chloride [Klor-Con M10] 10 meq PO DAILY 11/21/20 [History] Azithromycin 1 dose PO DAILY 02/01/21 [History] predniSONE [Prednisone] 20 mg PO DAILY 14 Days #14 tablet 02/02/21 [Rx] Oxygen Therapy Mode: Nasal Cannula Referrals: Peter Kothari MD [Ordering Only Provider] - Connor Melchor MD [Primary Care Provider] - 02/04/21 1:00 pm - Discharge Summary/Plan Comment DC Time >30 min.: No Total # of Minutes for Discharge Time: 25 - Patient Data Vitals - Most Recent: Last Vital Signs Temp 98.2 F 02/02/21 11:00 Pulse 76 02/02/21 11:00 Resp 16 02/02/21 11:00 BP 110/54 L 02/02/21 11:00 Pulse Ox 100 02/02/21 11:00 Weight - Most Recent: 68.855 kg I&O - Last 24 hours: Intake & Output 02/01/21 02/02/21 02/02/21 22:59 06:59 14:59 Intake Total 1200 0 Output Total 500 Balance 700 0 Lab Results - Last 24 hrs: Laboratory Results - last 24 hr 02/01/21 02/01/21 02/02/21 Range/Units 16:54 18:40 09:28 WBC 8.23 6.99 (4.0-11.0) K/uL RBC 3.36 L 3.45 L (4.50-5.90) M/uL Hgb 7.2 L 7.3 L (13.0-17.0) g/dL Hct 26.9 L 27.6 L (38.0-50.0) % MCV 80.1 80.0 (80.0-98.0) fL MCH 21.4 L 21.2 L (27.0-32.0) pg MCHC 26.8 L 26.4 L (31.0-37.0) g/dL RDW Std Deviation 54.2 53.7 (28.0-62.0) fl RDW Coeff of Tre 19 H 18 H (11.0-15.0) % Plt Count 277 267 (150-400) K/uL MPV 8.90 9.30 (7.40-12.00) fL Neut % (Auto) 60.7 (48.0-80.0) % Lymph % (Auto) 29.3 (16.0-40.0) % [place] % (Auto) 8.9 (0.0-15.0) % Eos % (Auto) 1.0 (0.0-7.0) % Baso % (Auto) 0.1 (0.0-1.5) % Neut # (Auto) 4.2 (1.4-5.7) K/uL Lymph # (Auto) 2.1 (0.6-2.4) K/uL [place] # (Auto) 0.6 (0.0-0.8) K/uL Eos # (Auto) 0.1 (0.0-0.7) K/uL Baso # (Auto) 0.0 (0.0-0.1) K/uL Nucleated RBC % 0.0 0.6 /100WBC Nucleated RBCs # 0 0 K/uL Sodium (136-148) mmol/L Potassium (3.5-5.1) mmol/L Chloride (98-107) mmol/L Carbon Dioxide (21.0-32.0) mmol/L BUN (7.0-18.0) mg/dL Creatinine (0.8-1.3) mg/dL Est Cr Clr Drug Dosing mL/min Estimated GFR (MDRD) ml/min Glucose (74-106) mg/dL Calcium (8.5-10.1) mg/dL SARS-CoV-2 RNA ([place]) NEGATIVE (NEGATIVE) Blood Type Antibody Screen Crossmatch 02/02/21 02/02/21 Range/Units 09:28 10:59 WBC (4.0-11.0) K/uL RBC (4.50-5.90) M/uL Hgb (13.0-17.0) g/dL Hct (38.0-50.0) % MCV (80.0-98.0) fL MCH (27.0-32.0) pg MCHC (31.0-37.0) g/dL RDW Std Deviation (28.0-62.0) fl RDW Coeff of Tre (11.0-15.0) % Plt Count (150-400) K/uL MPV (7.40-12.00) fL Neut % (Auto) (48.0-80.0) % Lymph % (Auto) (16.0-40.0) % [place] % (Auto) (0.0-15.0) % Eos % (Auto) (0.0-7.0) % Baso % (Auto) (0.0-1.5) % Neut # (Auto) (1.4-5.7) K/uL Lymph # (Auto) (0.6-2.4) K/uL [place] # (Auto) (0.0-0.8) K/uL Eos # (Auto) (0.0-0.7) K/uL Baso # (Auto) (0.0-0.1) K/uL Nucleated RBC % /100WBC Nucleated RBCs # K/uL Sodium 141 (136-148) mmol/L Potassium 4.4 (3.5-5.1) mmol/L Chloride 104 (98-107) mmol/L Carbon Dioxide 28.5 (21.0-32.0) mmol/L BUN 29 H (7.0-18.0) mg/dL Creatinine 1.5 H (0.8-1.3) mg/dL Est Cr Clr Drug Dosing 44.99 mL/min Estimated GFR (MDRD) 47.6 ml/min Glucose 117 H (74-106) mg/dL Calcium 8.9 (8.5-10.1) mg/dL SARS-CoV-2 RNA ([place]) (NEGATIVE) Blood Type A POSITIVE Antibody Screen NEGATIVE Crossmatch See Detail Med Orders - Current: Current Medications Azithromycin (Azithromycin 250 Mg Tab) 250 mg PO DAILY [facility] Last Admin: 02/02/21 08:05 Dose: 250 mg Documented by: Furosemide (Furosemide 20 Mg/2 Ml Vial) 20 mg IVPUSH ONCALL [facility] Stop: 02/02/21 21:00 Gabapentin (Gabapentin 800 Mg Tab) 800 mg PO QID [facility] Last Admin: 02/02/21 12:37 Dose: 800 mg Documented by: Hydromorphone HCl (Hydromorphone 2 Mg Tab) 4 mg PO Q4H PRN PRN Reason: Pain Last Admin: 02/02/21 12:43 Dose: 4 mg Documented by: Vancomycin HCl 1 gm/ Sodium (Chloride) 250 mls @ 166.667 mls/hr IV Q24H [facility] Last Admin: 02/01/21 22:23 Dose: Not Given Documented by: Metoprolol Tartrate (Metoprolol Tartrate 50 Mg Tab) 50 mg PO BID [facility] Last Admin: 02/02/21 08:05 Dose: 50 mg Documented by: Omeprazole (Omeprazole 20 Mg Cap.Cr) 40 mg PO ACBREAKFAST [facility] Last Admin: 02/02/21 06:31 Dose: 40 mg Documented by: Prednisone (Prednisone 20 Mg Tab) 40 mg PO DAILY [facility] Last Admin: 02/02/21 13:25 Dose: 40 mg Documented by: Vancomycin HCl (Pharmacy To Dose - Vancomycin) 1 dose .XX ASDIRECTED [facility] Discontinued Medications Albuterol/Ipratropium (Albuterol/Ipratropium 3.0-0.5 Mg/3 Ml Neb Soln) 3 ml NEB ONETIME ONE Stop: 02/01/21 14:36 Last Admin: 02/01/21 14:43 Dose: 3 ml Documented by: Clindamycin HCl (Clindamycin Hcl 150 Mg Cap) 300 mg PO TID [facility] Sodium Chloride (Normal Saline (Advbag)) Confirm Administered Dose 250 mls @ as directed .ROUTE .STK-MED ONE Stop: 02/01/21 22:01 Last Admin: 02/01/21 22:23 Dose: Not Given Documented by: Non-Formulary Medication (Hydromorphone) 4 mg PO Q4H PRN PRN Reason: Pain Prednisone (Prednisone 20 Mg Tab) 20 mg PO DAILY [facility] Vancomycin HCl (Vancomycin 1 Gm Advvial) Confirm Administered Dose 1 gm .ROUTE .STK-MED ONE Stop: 02/01/21 22:00 Last Admin: 02/01/21 22:23 Dose: 1 gm Documented by:
[2021-02-02] MEDS ORDERED: Clindamycin HCl 150 MG Cap PO SCH (14:00)
[2021-02-02 16:31] VITALS: PULSE 71
[2021-02-02] MEDS ORDERED: Furosemide 40 MG Tab PO SCH (17:45)
[2021-02-02 18:45] VITALS: BP 117/69
== END 2021-02-02 18:30 | disposition home or self-care (01) ==
LOC: MW.ED 12:15 → MW.MS 17:52
PROVIDERS: ADMIT Internal Medicine; ATTEND Internal Medicine
DX: S40.011A Contusion of right shoulder, initial encounter (principal); L03.90 Cellulitis, unspecified; B44.81 Allergic bronchopulmonary aspergillosis; I27.20 Pulmonary hypertension, unspecified; I48.91 Unspecified atrial fibrillation; I50.9 Heart failure, unspecified; N18.9 Chronic kidney disease, unspecified; G47.33 Obstructive sleep apnea (adult) (pediatric); J44.9 Chronic obstructive pulmonary disease, unspecified; I42.9 Cardiomyopathy, unspecified; G89.29 Other chronic pain; D84.89 Other immunodeficiencies; M19.90 Unspecified osteoarthritis, unspecified site; Z79.899 Other long term (current) drug therapy; Z86.19 Personal history of other infectious and parasitic diseases; Z86.718 Personal history of other venous thrombosis and embolism; Z98.890 Other specified postprocedural states; Z20.822 Contact with and (suspected) exposure to COVID-19
CPT/HCPCS: 36415; 36430; 73200; 80048; 85025; 85027; 85610; 85730; 86850; 86900; 86901; 86920; 86921; 86922; 99285; A9270; J3370; P9016; U0002; 96365; G0378; J1940; J7620-GY

== ENCOUNTER 2021-03-08 22:28 | Emergency (ER) | payer MEDICARE, OTHER ==
--- NOTE | 2021-03-08 22:31 | EDM.PDOC ---
ED HPI GENERAL MEDICAL PROBLEM - General Stated Complaint: FALL, PAIN IN RT ANKLE, WRIST, SHOULDER Time Seen by Provider: 03/08/21 23:14 - History of Present Illness INITIAL COMMENTS - FREE TEXT/NARRATIVE: History of present illness: [] The patient fell today and injured his right shoulder and right foot and right ankle as well as right hand. The floor was wet and he was wearing socks and says his legs are weak so he injured himself. He still on apixaban but he did not hit his head. He has pain in the right ankle right foot and right hand as well as pain in the right shoulder. The pain right shoulder slightly worse but he is recently had an infection in the right shoulder. Review of systems: As per history of present illness and below otherwise all systems reviewed and negative. Past medical history: As per history of present illness and as reviewed below otherwise noncontributory. Surgical history: As per history of present illness and as reviewed below otherwise noncontributory. Social history: No reported history of drug or alcohol abuse. Family history: As per history of present illness and as reviewed below otherwise noncontributory. Physical exam: Constitutional - well developed, well-nourished and in no acute distress HEENT - normocephalic, no evidence of trauma - external nose and mouth normal - no mass in neck and no JVD - mucosae moist EYES - full EOM, PERRL, no icterus - no evidence of inflammation, injection, or drainage Respiratory - no respiratory distress, equal bilateral expansion, lungs clear to auscultation and no abnormal lung sounds Cardiovascular - Regular Rhythm with S1 and S2 appreciated and no murmur, gallop or rub. GI - abdomen soft without distension or organomegaly - normal bowel sounds - no guard or rebound Musculoskeletal contracture deformity of the digits of the right hand which is not new according to the patient. Tender right shoulder. Tender posterior right chest wall around the scapula and inferior to the scapula. Tender right wrist. Tender right ankle and foot. No gross deformity of long bones or joints - no tenderness, swelling or edema Neurologic - Alert and oriented times four - CN II-XII grossly intact - motor sensory and coordination symmetrically normal Psychiatric - appropriate mood and affect with normal thought content Hematologic - No petechiae or purpura - mucosa appropriate color and sclera not pale - normal nail bed color and refill Integument -erythema and warmth of the right foot ankle and lower leg. No rash or evidence of trauma - normal turgor Diagnostics: [] Therapeutics: [] Impression: [] Plan: [] Definitive disposition and diagnosis as appropriate pending reevaluation and review of above. L Right Shoulder Pain Score (Numeric/FACES): 8 - Related Data Allergies Allergy/AdvReac Type Severity Reaction Status Date / Time itraconazole [From Sporanox] Allergy Unknown Confusion Verified 03/08/21 22:45 levofloxacin [From Levaquin] Allergy Unknown Other Verified 03/08/21 22:45 meropenem Allergy Swelling Verified 03/08/21 22:45 Home Meds: Home Meds Metoprolol Tartrate [Lopressor] 50 mg PO BID tablet 07/21/18 [Rx] Fluticasone/Vilanterol [Breo Ellipta 200-25 MCG Inhalation Kit] 1 puff INH DAILY 08/10/20 [History] HYDROmorphone [Dilaudid] 4 mg PO Q4H PRN 08/10/20 [History] Testosterone 300 mg TD DAILY 08/10/20 [History] Tiotropium Napavine [Spiriva Respimat] 2 puff INH DAILY 09/14/20 [History] Gabapentin [Neurontin] 800 mg PO QID tablet 09/16/20 [Rx] Furosemide [Lasix] 40 mg PO BID 09/21/20 [History] Omeprazole 40 mg PO ACBREAKFAST 11/21/20 [History] Potassium Chloride [Klor-Con M10] 10 meq PO DAILY 11/21/20 [History] predniSONE [Prednisone] 20 mg PO DAILY 14 Days #14 tablet 02/02/21 [Rx] cephALEXin [Cephalexin] 500 mg PO BID #14 capsule 03/08/21 [Rx] Past Medical History HEENT History: Reports: Cataract Other HEENT History: dental fillings due to caries; recent tooth fracture Cardiovascular History: Reports: Afib, Cardiomyopathy, Heart Failure, Hypertension, RI Other Cardiovascular History: Heart attack April 2010, Pulmonary embolism 2009 Respiratory History: Reports: Asthma, Bronchitis, Recurrent, COPD, PE, Pneumonia, Recurrent, Other (See Below) Other Respiratory History: Chronic pulmonary aspergillosis, 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 on 02 at home - 2liters at daytime, 4 liters at bedtimeper nasal cannula Gastrointestinal History: Reports: Diverticulosis, GERD, Other (See Below) Other Gastrointestinal History: diverticulitis, peristalisis diagnosed with egd 2 weeks ago Genitourinary History: Reports: BPH, Renal Calculus, Renal Disease, UTI, Recurrent Other Genitourinary History: Left nephrectomy Musculoskeletal History: Reports: Arthritis, Back Pain, Chronic, Gout, Osteoporosis, RA, Other (See Below) Other Musculoskeletal History: lumbar fracture, rotator cap syndrome, bilateral feet fracture, osteomyelitis; hammer toes, elbow strain. bilateral achilles tendon ruptures and repair., hip replacement, removal of left humerous, reverse right shoulder replacement Neurological History: Reports: Neuropathy, Peripheral, TIA Other Neuro History: TIA 1999 Psychiatric History: Reports: Anxiety, Depression Endocrine/Metabolic History: Reports: Osteoporosis Hematologic History: Reports: Anticoagulation Therapy Immunologic History: Reports: Immunosuppression Oncologic (Cancer) History: Reports: Other (See Below) Other Oncologic History: melanoma of the right eye Dermatologic History: Reports: Cellulitis, Melanoma, Other (See Below) Other Dermatologic History: melanoma in the eye, longterm steroid use - Infectious Disease History Infectious Disease History: Reports: Chicken Pox, Measles Other Infectious Disease History: 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 No explantation--they apparently just treated him with IV abx for months. - Past Surgical History Head Surgeries/Procedures: Reports: None HEENT Surgical History: Reports: Cataract Surgery Cardiovascular Surgical History: Reports: None Respiratory Surgical History: Reports: Lung Resection Other Respiratory Surgeries/Procedures: intubated last Feb 2018 and transfered to [facility] Surgical History: Reports: Colonoscopy Other GI Surgeries/Procedures: colostomy and reversal 20yrs ago Male Surgical History: Reports: None Endocrine Surgical History: Reports: None Neurological Surgical History: Reports: None Musculoskeletal Surgical History: Reports: Amputation, Shoulder Surgery, Other (See Below) Other Musculoskeletal Surgeries/Procedures:: L shoulder and left hip replacementsurgery. R sarah- antibiotic beads with sx february 2020, in process now. Oncologic Surgical History: Reports: None Dermatological Surgical History: Reports: None Social & Family History - Family History Family Medical History: No Pertinent Family History - Caffeine Use Caffeine Use: Reports: Coffee Other Caffeine Use: 1 daily - Living Situation & Occupation Living situation: Reports: Single, with Family (sons) Occupation: Disabled ED ROS GENERAL - Review of Systems Review Of Systems: Comprehensive ROS is negative, except as noted in HPI. ED EXAM, GENERAL - Physical Exam Exam: See Below Free Text/Narrative:: My physical exam as in the HPI Course - Vital Signs Text/Narrative:: Multiple x-rays show multiple areas of severe degenerative changes, atherosclerosis causing his arteries to be visualized on plain films, extra calcium deposits in areas that appear old, no obvious acute fracture. Last Recorded V/S: Last Vital Signs Temp 36.1 C 03/08/21 22:40 Pulse 113 H 03/08/21 23:20 Resp 20 03/08/21 23:20 BP 113/53 L 03/08/21 23:20 Pulse Ox 100 03/08/21 23:20 - Orders/Labs/Meds Orders: Active Orders 24 hr Category Date Time Status Ankle 2V Rt [CR] Stat Exams 03/08/21 22:55 Taken Chest 1V Frontal [CR] Stat Exams 03/08/21 22:55 Taken Foot 2V Rt [CR] Stat Exams 03/08/21 22:55 Taken Pelvis 1V or 2V [CR] Stat Exams 03/08/21 22:57 Taken Shoulder Comp Rt [CR] Stat Exams 03/08/21 22:54 Taken Wrist Comp Min 3V Rt [CR] Stat Exams 03/08/21 22:54 Taken Departure - Departure Time of Disposition: 23:36 Disposition: Home, Self-Care 01 Condition: Good Clinical Impression: Cellulitis of right lower extremity, Fall, Multiple contusions, Cellulitis - Discharge Information Instructions: Cellulitis, Adult, Contusion, [id number] Referrals: Connor Melchor MD [Primary Care Provider] - Additional Instructions: Warm compresses to right lower extremity and see your doctor if it gets worse or does not get better within 2 days. [facility] [address] [place] [address] [id number] [address] [address] The following information is given to patients seen in the emergency department who are being discharged to home. This information is to outline your options for follow-up care. We provide all patients seen in our emergency department with a follow-up referral. The need for follow-up, as well as the timing and circumstances, are variable depending upon the specifics of your emergency department visit. If you don't have a primary care physician on staff, we will provide you with a referral. We always advise you to contact your personal physician following an emergency department visit to inform them of the circumstance of the visit and for follow-up with them and/or the need for any referrals to a consulting specialist. The emergency department will also refer you to a specialist when appropriate. This referral assures that you have the opportunity for follow-up care with a specialist. All of these measure are taken in an effort to provide you with optimal care, which includes your follow-up. Under all circumstances we always encourage you to contact your private physician who remains a resource for coordinating your care. When calling for follow-up care, please make the office aware that this follow-up is from your recent emergency room visit. If for any reason you are refused follow-up, please contact the [facility] Emergency Department at and asked to speak to the emergency department charge nurse. Sepsis Event Note (ED) - Focused Exam Vital Signs: Vital Signs Temp Pulse Resp BP Pulse Ox 03/08/21 23:20 113 H 20 113/53 L 100 03/08/21 22:40 36.1 C 116 H 22 H 170/150 H 95 - My Orders Last 24 Hours: My Active Orders 03/08/21 22:54 Shoulder Comp Rt [CR] Stat Wrist Comp Min 3V Rt [CR] Stat 03/08/21 22:55 Ankle 2V Rt [CR] Stat Chest 1V Frontal [CR] Stat Foot 2V Rt [CR] Stat 03/08/21 22:57 Pelvis 1V or 2V [CR] Stat - Assessment/Plan Last 24 Hours: My Active Orders 03/08/21 22:54 Shoulder Comp Rt [CR] Stat Wrist Comp Min 3V Rt [CR] Stat 03/08/21 22:55 Ankle 2V Rt [CR] Stat Chest 1V Frontal [CR] Stat Foot 2V Rt [CR] Stat 03/08/21 22:57 Pelvis 1V or 2V [CR] Stat
--- NOTE | 2021-03-08 23:35 | CR ---
INDICATION: Ankle pain following fall TECHNIQUE: Ankle radiograph 2 views right COMPARISON: None FINDINGS: Bone: No acute fractures or aggressive bone lesions are identified. Joint: The ankle mortise joint and the visualized hindfoot joints are unremarkable in appearance. No significant ankle effusion is seen. Soft tissue: Diffuse swelling and severe vascular calcifications are present. The Kager fat pad and the Achilles` tendon is normal in appearance. No radiopaque foreign bodies are seen. IMPRESSION: 1. No acute osseous injuries or abnormalities are noted. Dictated by: Omi Alvarez MD @ 03/08/2021 23:34:28 (Electronically Signed)
[2021-03-08] MEDS ORDERED: Cephalexin 500 MG Cap PO ONE (23:37)
--- NOTE | 2021-03-08 23:38 | CR ---
INDICATION: Chest pain following fall TECHNIQUE: Chest radiograph 1 view COMPARISON: 12/17/2020 FINDINGS: The sensitivity and specificity of the exam are severely limited by the patient`s body habitus. Mediastinum: There is a stable small density overlying the right hilum. Mild stable cardiomegaly is noted. Lung: A 1.3 cm asymmetric nodular density is noted in the left perihilar region. Small lung volumes are present with mild bibasilar atelectasis seen. No sign of pleural effusion seen. No pneumothorax is identified. Bone and Soft tissue: Left reverse shoulder arthroplasty is partially visualized. Resection of the right humeral head is noted. IMPRESSIONS: 1. Small lung volumes are present with mild bibasilar atelectasis seen. 2. Mild stable cardiomegaly is noted. 3. There is a stable small density overlying the right hilum. A 1.3 cm asymmetric nodular density is noted in the left perihilar region. Assessment with outpatient chest CT is recommended. Dictated by Omi Alvarez MD @ 03/08/2021 11:35:21 PM Dictated by: Omi Alvarez MD @ 03/08/2021 23:36:02 (Electronically Signed)
--- NOTE | 2021-03-08 23:38 | CR ---
INDICATION: Foot pain following fall TECHNIQUE: Foot radiograph 2 views right COMPARISON: None FINDINGS: Bone: Amputation of the 1st and 2nd digits are presently on the metatarsals. Abundant heterotopic bone formation is seen over the 3rd and 4th metatarsals with likely remote fracture deformities seen. A chronic nonunited fracture deformity is present at the base of the 1st metatarsal. Joint: The visualized hindfoot, midfoot, and forefoot joints are unremarkable in appearance. No significant ankle effusion is seen. Soft tissue: Severe diffuse soft tissue swelling is noted. Severe vascular calcifications are seen. No radiopaque foreign bodies are seen. IMPRESSION: 1. No acute osseous injuries or abnormalities are noted. Dictated by Omi Alvarez MD @ 03/08/2021 11:37:09 PM Dictated by: Omi Alvarez MD @ 03/08/2021 23:37:13 (Electronically Signed)
--- NOTE | 2021-03-08 23:39 | CR ---
INDICATION: Shoulder pain following fall TECHNIQUE: Shoulder radiograph 3 views right COMPARISON: None FINDINGS: Bone: No acute fractures or aggressive bone lesions are identified. Previous resection the right humeral head and neck are noted. Mild surrounding heterotopic bone formation is seen. Joint: The glenohumeral joint is unremarkable. A joint body is suspected superior to the coracoid process. The acromioclavicular joint is unremarkable. Soft tissue: Unremarkable. The visualized hemithorax is unremarkable in appearance. No radiopaque foreign bodies are seen. IMPRESSION: 1. No acute osseous injuries or abnormalities are noted. Dictated by Omi Alvarez MD @ 03/08/2021 11:38:07 PM Dictated by: Omi Alvarez MD @ 03/08/2021 23:38:11 (Electronically Signed)
--- NOTE | 2021-03-08 23:39 | CR ---
INDICATION: Wrist pain following fall TECHNIQUE: Wrist radiograph 3 views right COMPARISON: None FINDINGS: Bone: No acute fractures or aggressive bone lesions are identified. Evaluation is limited by finger flexion and clenched hand positioning. Joint: The radiocarpal, carpal, and carpometacarpal joints are unremarkable in appearance. Soft tissue: Unremarkable. No radiopaque foreign bodies are seen. IMPRESSION: 1. No acute osseous injuries or abnormalities are noted. Dictated by: Omi Alvarez MD @ 03/08/2021 23:39:40 (Electronically Signed)
[2021-03-08] MEDS ORDERED: Acetaminophen/oxyCODONE 325-5 MG Tab PO ONE (23:42)
--- NOTE | 2021-03-08 23:42 | CR ---
INDICATION: Pelvis pain following fall TECHNIQUE: Pelvis radiograph 1 view on 2 films COMPARISON: 01/11/2016 FINDINGS: The sensitivity and specificity of the exam are moderately limited by the patient`s body habitus. Bone: No acute fractures or aggressive bone lesions are identified. Joint: Left total hip arthroplasty is noted. Exuberant heterotopic bone formation is seen surrounding the hip joint. The visualized sacroiliac joints are unremarkable in appearance. The pubic symphysis is normal in appearance. Soft tissue: Unremarkable. The visualized bowel gas pattern of the pelvis is unremarkable in appearance. No radiopaque foreign bodies are seen. Severe vascular calcifications are noted. IMPRESSION: 1. No acute osseous injuries or abnormalities are noted. Dictated by Omi Alvarez MD @ 03/08/2021 11:40:49 PM Dictated by: Omi Alvarez MD @ 03/08/2021 23:40:52 (Electronically Signed)
[2021-03-09 00:56] VITALS: BP 110/57; PULSE 108
== END 2021-03-09 00:45 | disposition home or self-care (01) ==
LOC: MW.ED 22:28
DX: S40.011A Contusion of right shoulder, initial encounter (principal); S90.01XA Contusion of right ankle, initial encounter; S90.31XA Contusion of right foot, initial encounter; S60.221A Contusion of right hand, initial encounter; L03.115 Cellulitis of right lower limb; I48.91 Unspecified atrial fibrillation; I11.0 Hypertensive heart disease with heart failure; I50.9 Heart failure, unspecified; I25.2 Old myocardial infarction; J44.9 Chronic obstructive pulmonary disease, unspecified; K21.9 Gastro-esophageal reflux disease without esophagitis; Z88.8 Allergy status to other drugs, medicaments and biological substances; Z88.1 Allergy status to other antibiotic agents; Z79.01 Long term (current) use of anticoagulants; Z79.899 Other long term (current) drug therapy; W19.XXXA Unspecified fall, initial encounter
CPT/HCPCS: 71045; 72170; 73030; 73110; 73600; 73620; 99283; A9270

== ENCOUNTER 2021-03-09 15:59 | Emergency (ER) | payer MEDICARE, OTHER ==
[2021-03-09] MEDS ORDERED: Sodium Chloride 0.9% 10 ML Syringe FLUSH PRN (16:12)
[2021-03-09] MEDS ORDERED: Sodium Chloride 0.9% 2.5 ML Syringe FLUSH PRN (16:12)
[2021-03-09] MEDS ORDERED: Lactated Ringers 500 ML IV ONE (16:12)
--- NOTE | 2021-03-09 16:19 | EDM.PDOC ---
<Bony Domingo - Last Filed: 03/10/21 07:05> ED HPI GENERAL MEDICAL PROBLEM - General Chief Complaint: General Stated Complaint: FELL Time Seen by Provider: 03/09/21 16:04 - Related Data Allergies Allergy/AdvReac Type Severity Reaction Status Date / Time itraconazole [From Sporanox] Allergy Unknown Confusion Verified 03/09/21 16:07 levofloxacin [From Levaquin] Allergy Unknown Other Verified 03/09/21 16:07 meropenem Allergy Swelling Verified 03/09/21 16:07 Home Meds: Home Meds Metoprolol Tartrate [Lopressor] 50 mg PO BID tablet 07/21/18 [Rx] Fluticasone/Vilanterol [Breo Ellipta 200-25 MCG Inhalation Kit] 1 puff INH DAILY 08/10/20 [History] HYDROmorphone [Dilaudid] 4 mg PO Q4H PRN 08/10/20 [History] Testosterone 300 mg TD DAILY 08/10/20 [History] Tiotropium [place] [Spiriva Respimat] 2 puff INH DAILY 09/14/20 [History] Gabapentin [Neurontin] 800 mg PO QID tablet 09/16/20 [Rx] Furosemide [Lasix] 40 mg PO BID 09/21/20 [History] Omeprazole 40 mg PO ACBREAKFAST 11/21/20 [History] Potassium Chloride [Klor-Con M10] 10 meq PO DAILY 11/21/20 [History] predniSONE [Prednisone] 20 mg PO DAILY 14 Days #14 tablet 02/02/21 [Rx] Acetaminophen/oxyCODONE [Percocet 325-5 MG] 1 - 2 each PO Q4HR PRN #14 tab 03/08/21 [Rx] cephALEXin [Cephalexin] 500 mg PO BID #14 capsule 03/08/21 [Rx] ED ROS GENERAL - Review of Systems Review Of Systems: Comprehensive ROS is negative, except as noted in HPI. ED EXAM, GENERAL - Physical Exam Exam: See Below ED CENTRAL LINE INSERTION - Central Line Insertion Central Line Indication: IV access Site: femoral (R) Prep: CDC/MBT Guidelines, Sterile Drapes, Betadine Lumen: triple Gauge: 18Fr Local Anesthesia - Lidocaine (Xylocaine): 1% Plain Local Anesthetic Volume: 3cc Ultrasound guided: Yes Guidewire and dilator removed intact: Yes Complications: No Secured with suture: Yes Post placement confirmation: all ports aspirated, all ports flushed Dressing applied: by nurse Course - Re-Assessments/Exams Free Text/Narrative Re-Assessment/Exam: 03/09/21 23:29 Blood pressure and pulse seem to stabilize somewhat. Patient is alert. [facility] and neighboring [facility] in [place] do not have beds. [place] is not excepting any out-of-town transfers because they do not have beds. My nursing supervisor contingents is working on [place]. In the meantime we are doing ICU care for this patient. Due to a high probability of clinically significant, life threatening deterioration, the patient required my highest level of preparedness to intervene emergently and I personally spent this critical care time directly and personally managing the patient. This critical care time included obtaining a history; examining the patient; pulse oximetry; ordering and review of studies; arranging urgent treatment with development of a management plan; evaluation of patient's response to treatment; frequent reassessment; and, discussions with other providers. This critical care time was performed to assess and manage the high probability of imminent, life-threatening deterioration that could result in multi-organ failure. It was exclusive of separately billable procedures and treating other patients and teaching time. This patient was seen and evaluated during the 2019 SARS-CoV-2 novel coronavirus pandemic period. Community viral transmission is ongoing at time of this encounter and the emergency department is operating under pandemic response procedures. Free Text/Narrative Re-Assessment/Exam: 03/10/21 05:01 Patient's condition is not worse. He feels reasonably good. He is on Levophed and amiodarone and heart rate still 126 with blood pressure in the 80s. I feel the patient needs cardiology. At this point [place] and neighboring [facility] in [facility] do not have a bed. There is no ICU bed available in [facility] or any of the hospitals in [place] or [place]. I feel the patient needs cardiology and we will reassess for possible transfer to a telemetry bed with cardiology service later in the morning. Departure - Departure Disposition: DC/Tfer to [facility] 02 Clinical Impression: Sepsis, Atrial fibrillation with RVR, Cellulitis Pneumonia Qualifiers: Pneumonia type: due to unspecified organism Laterality: left Lung location: unspecified part of lung Qualified Code(s): J18.9 - Pneumonia, unspecified organism Acute renal failure (ARF) Qualifiers: Acute renal failure type: unspecified Qualified Code(s): N17.9 - Acute kidney failure, unspecified - Discharge Information Referrals: PCP,None [Primary Care Provider] - Forms: ED Department Discharge <Maximiliano Fall - Last Filed: 03/10/21 11:58> ED HPI GENERAL MEDICAL PROBLEM - General Source of Information: Reports: Patient - History of Present Illness INITIAL COMMENTS - FREE TEXT/NARRATIVE: 61-year-old male presents complaining of fall. Patient fell once earlier today and and refused representative personal service transport. Then he fell again today. He said he had generalized weakness. Unclear whether or not the patient passed out or not. No head trauma. He was weak and was not able to get up. Patient denies any head trauma. There is no recent fevers or chills. No cough or productive sputum. No chest pain or shortness of breath. Patient was found in the ambulance to be in A. fib RVR. There is question of whether not the patient could have 1 episode of transient hypotension but this is not corroborated. They state perhaps the machine was not working. Patient denies any recent vomiting diarrhea red or black stools. No abdominal pain. Patient states that he hurt his right wrist when he fell yesterday but there is no new injury except possibly little bit to his left foot. 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 on 02 at home - 2liters at daytime, 4 liters at bedtimeper nasal cannula Gastrointestinal History: Reports: Diverticulosis, GERD, Other (See Below) Other Gastrointestinal History: diverticulitis, peristalisis diagnosed with egd 2 weeks ago Genitourinary History: Reports: BPH, Renal Calculus, Renal Disease, UTI, Recurrent Other Genitourinary History: Left nephrectomy Musculoskeletal History: Reports: Arthritis, Back Pain, Chronic, Gout, Osteoporosis, RA, Other (See Below) Other Musculoskeletal History: lumbar fracture, rotator cap syndrome, bilateral feet fracture, osteomyelitis; hammer toes, elbow strain. bilateral achilles tendon ruptures and repair., hip replacement, removal of left humerous, reverse right shoulder replacement Neurological History: Reports: Neuropathy, Peripheral, TIA Other Neuro History: TIA 1999 Psychiatric History: Reports: Anxiety, Depression Endocrine/Metabolic History: Reports: Osteoporosis Hematologic History: Reports: Anticoagulation Therapy Immunologic History: Reports: Immunosuppression Oncologic (Cancer) History: Reports: Other (See Below) Other Oncologic History: melanoma of the right eye Dermatologic History: Reports: Cellulitis, Melanoma, Other (See Below) Other Dermatologic History: melanoma in the eye, 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 No explantation--they apparently just treated him with IV abx for months. - Past Surgical History Head Surgeries/Procedures: Reports: None HEENT Surgical History: Reports: Cataract Surgery Cardiovascular Surgical History: Reports: None Respiratory Surgical History: Reports: Lung Resection Other Respiratory Surgeries/Procedures: intubated last Feb 2018 and transfered to [facility] Surgical History: Reports: Colonoscopy Other GI Surgeries/Procedures: colostomy and reversal 20yrs ago Male Surgical History: Reports: None Endocrine Surgical History: Reports: None Neurological Surgical History: Reports: None Musculoskeletal Surgical History: Reports: Amputation, Shoulder Surgery, Other (See Below) Other Musculoskeletal Surgeries/Procedures:: L shoulder and left hip replacementsurgery. 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 Oncologic Surgical History: Reports: None Dermatological Surgical History: Reports: None Social & Family History - Family History Family Medical History: No Pertinent Family History - Tobacco Use Tobacco Use Status *Q: Never Tobacco User - Caffeine Use Caffeine Use: Reports: None Other Caffeine Use: 1 daily - Recreational Drug Use Recreational Drug Use: No - Living Situation & Occupation Living situation: Reports: Single, with Family (sons) Occupation: Disabled ED ROS GENERAL - Review of Systems Review Of Systems: Comprehensive ROS is negative, except as noted in HPI. ED EXAM, GENERAL - Physical Exam Free Text/Narrative:: CONSTITUTIONAL: Fair in appearance SKIN: Bruising to the right wrist. No marked tenderness. Erythema to the right lower extremity with warmth and tenderness HENT: Normocephalic, atraumatic, PULMONARY: clear to ausculation bilaterally. No rales, rhonchi, wheezing CARDIOVASCULAR: Regular rate and rhythm, tachycardia GASTROINTESTINAL: Mild distention. Soft. Nontender nondistended NEUROLOGIC: normal speech, II-XII intact. light touch/5/5 power equal and symmetric in upper and lower extremities without deficit MUSCULOSKELETAL: n very distractible mild tenderness to the left foot. The extremity is neurovascularly intact PSYCHIATRIC: normal mood and affect ED GENERAL MEDICAL PROCEDURES - Additional/Other Procedure(s) Other (Free Text) Procedure(s): Procedure notes: Cardioversion. Patient was premedicated with ketamine followed by small dose of etomidate and ketamine. 360 synchronized cardioversion attempted twice. Patient effectively broke for a second and 2 sinus tach very shortly thereafter back into A. fib. Patient did have some mild hypoxia that responded very easily to bagging. Patient otherwise tolerated the procedure well. #1 Interpretation Time: 16:19 EKG Interpretation Comments: 139, 80 fib, nonspecific ST/T findings. EKG at 3:59 PM Course - Vital Signs Text/Narrative:: Patient presents to the emergency department after what sounds like syncope versus fall. Patient with A. fib RVR and initial small doses of diltiazem. Patient was tolerating his blood pressure fine but then later in ED course became significantly hypotensive. Patient had initially received a liter of fluid. Found to have acute renal failure and elevated lactic acid. There is an infiltrate that is seen on chest x-ray. Patient was given empiric antibiotics and culture sent off and patient will get 30 cc/kg of fluid in the setting of significant hypotension and sepsis with possible significant dehydration hypoperfusion from A. fib with RVR. Patient was not shocked when he came hypotensive because it was thought that the underlying etiology was likely volume depletion and/or sepsis more so than primary A. fib with RVR. Patient with pneumonia and right lower extremity cellulitis is possible sources of infection. Digoxin was given in addition to amiodarone for A. fib RVR. Patient started on Levophed for persistent hypotension 7:30am We have been working on trying to get the patient to bed with an ICU with cardiology and nephrology specialties all night long and there is still no beds in critical access hospital or even in the [facility] area. We have called directly and use the [facility] and they continue to work looking for beds. Upon receiving care the patient he was reevaluated. He is still an A. fib RVR on amiodarone and digoxin. He is on Levophed for hypotension and his blood pressures are in the 90s with heart rates in the 130s. Patient is possible sources of infection has pneumonia and cellulitis so the patient was also given vancomycin and redosed with ceftriaxone. Maintenance fluids were started. Patient will have repeat blood testing to see if there has been improvement of the renal failure with volume resuscitation. Patient also has had DVT with PE. Ultrasound of the right lower extremity was ordered to see if the patient has a DVT T. Patient has been compliant with his Eliquis. Once I have the repeat renal function I will consider transitioning to Lovenox in the event that the patient broke through his Eliquis and has a PE. But the patient has not had CT imaging rule out PE secondary to his renal function. The patient is thought to have primary sepsis and volume depletion thus cardioversion was not initially a ttempted. It was thought the patient would just bounce right back into A. fib with RVR. Patient's lactate has been trending downward with treatment in the ED. Given the prolonged course at this time cardioversion will at least be attempted since the patient overnight has not responded to fluids and antibiotics. 9:57. I respoke to the [facility] and they are having a meeting at 11 AM to discuss possible placement given the context. I called [facility], [facility] again and there were no available ICU beds and I will continue to call to try to patient in ICU bed with cardiology and nephrology care. 10:35. Pt with persistent slightly worsening hypotension. When levophed dialed up tachycardia >140. (pt was at 120ish). Bedside US with reasonable EF. Ph enylephrine started. 10:[address] Neha Dailey. Accepts pt for ICU transfer 11:22 patient doing better after phenylephrine added. Heart rates down back into the 120s with blood pressures in the mid to high 90s. Patient's repeat lab test show a hemoglobin of 6.9. Patient has brown guaiac positive stool from below. Patient's baseline is around 7 and he did get significant volume resuscitation some not surprised his hemoglobin did go down a bit. I do not think he has a hemorrhagic bleed that is a cause of his hypotension. Patient will be transfused a unit of packed red blood cells in the setting of hemoglobin less than 7 and refractory shock. Ultrasound was negative for DVT. I was going to consider giving Lovenox but since the patient is still in acute renal failure and there is no DVT I will give him his dose of Eliquis. Given the renal insufficiency I do not know if this would be the best long-term medication but a single dose at this point will be okay until further input from nephrology can be obtained. As I mentioned even of the patient's hemoglobin is trending downward he received significant fluid resuscitation as I do not think he has a hemorrhagic bleed thus given the risks and benefits in this patient with decompensated A. fib with RVR that I cannot exclude pulmonary embolism I do not want to leave him without any anticoagulation. I was hoping after volume resuscitation the patient's creatinine would have significantly improved. Patient had an in and out cath and 250 cc of fluid were removed at that time. Patient will have a Weathers placed and additional treatments and investigations looking at patient's renal failure can be further evaluated and the patient gets to the accepting facility with nephrology. I asked nurse to calculate fluid input since change of shift (pt had already received 2 liters IVF bolus). With Lab Aide requested additional 250 cc bolus, IVF previous, abx, to be given will be 1450 cc fluid since 7am. (not including blood to be given)) Critical care: I spent 120 minutes of critical care time with this patient not including reportable procedures. There was an acute impairment of an organ system with a high probability of imminent or life threatening deterioration in the patient`s condition. Interventions and changes required in the course of therapy are located in the chart. Time involved was spent in direct patient care, reviewing ancillary data, old records, consulting with decision makers, EMS, other doctors, giving orders and documenting. Last Recorded V/S: Last Vital Signs Temp 36.6 C 03/10/21 11:50 Pulse 122 H 03/10/21 11:50 Resp 18 03/10/21 11:50 BP 99/51 L 03/10/21 11:50 Pulse Ox 100 03/10/21 11:50 - Orders/Labs/Meds Orders: Active Orders 24 hr Category Date Time Status Cardiac Monitoring [RC] . DIRECTED Care 03/09/21 16:13 Active Weathers Catheter Insertion [Insert Urinary Catheter] [OM. Care 03/10/21 11:30 Ordered PC] Q24H Pulse Oximetry [RC] ASDIRECTED Care 03/09/21 16:13 Active Urinary Catheter Assessment [RC] ASDIRECTED Care 03/10/21 11:22 Active Verify Patient Consent Obtain [RC] ASDIRECTED Care 03/10/21 11:10 Active BLOOD CULTURE ID [MREF] Routine Lab 03/09/21 16:52 Received CORTISOL [REF] Stat Lab 03/10/21 11:30 Ordered CULTURE BLOOD [BC] Stat Lab 03/09/21 16:52 Results CULTURE BLOOD [BC] Stat Lab 03/09/21 17:02 Results RED BLOOD CELLS LP [BBK] Stat Lab 03/10/21 11:09 Results TYPE AND SCREEN [BBK] Stat Lab 03/09/21 17:20 Results VANCOMYCIN TROUGH [CHEM] Timed Lab 03/16/21 07:15 Ordered Amiodarone In Dextrose,Iso-Osm [Nexterone in Dextrose Med 03/09/21 18:10 Active 360 MG/200 ML] 360 mg in 200 ml IV ASDIRECTED Azithromycin [Zithromax] 500 mg Med 03/09/21 19:45 Active Sodium Chloride 0.9% [Normal Saline AdvBag] 250 ml IV ONETIME Diltiazem [Cardizem CD] Med 03/09/21 16:45 Active 120 mg PO DAILY Norepinephrine Bit/0.9 % NaCl [Norepinephr-0.9% NaCl 4 Med 03/09/21 20:00 Active mg/250] 4 mg in 250 ml IV TITRATE Norepinephrine Bit/0.9 % NaCl [Norepinephr-0.9% NaCl 4 Med 03/10/21 02:30 Active mg/250] 4 mg in 250 ml IV TITRATE Phenylephrine [Felix-Synephrine] 10 mg Med 03/10/21 10:45 Active Sodium Chloride 0.9% [Normal Saline] 99 ml IV TITRATE Sodium Chloride 0.9% [Normal Saline] 1,000 ml Med 03/10/21 07:19 Active IV .BOLUS Sodium Chloride 0.9% [Saline Flush] Med 03/09/21 16:12 Active 10 ml FLUSH ASDIRECTED PRN Sodium Chloride 0.9% [Saline Flush] Med 03/09/21 16:12 Active 2.5 ml FLUSH ASDIRECTED PRN Vancomycin 1 gm Med 03/12/21 07:45 Active Sodium Chloride 0.9% [Normal Saline AdvBag] 250 ml IV Q48H Blood Culture x2 Reflex Set [OM.PC] Stat Oth 03/09/21 16:13 Ordered Saline Lock Insert [OM.PC] Stat Oth 03/09/21 16:13 Ordered Transfuse Red Blood Cells [COMM] Stat Oth 03/10/21 11:09 Ordered Medication Orders Diltiazem HCl (Diltiazem 120 Mg Cap.Cd) 120 mg PO DAILY DANIELITO Last Admin: 03/10/21 09:50 Dose: 120 mg Documented by: Admin: 03/09/21 17:35 Dose: Not Given Documented by: RENAE Amiodarone HCl/Dextrose (Nexterone In Dextrose 360 Mg/200 Ml) 360 mg in 200 mls @ 33.333 mls/hr IV ASDIRECTED DANIELITO Last Admin: 03/09/21 18:55 Dose: 1 mg/min, 33.333 mls/hr Documented by: RENAE Azithromycin 500 mg/ Sodium (Chloride) 250 mls @ 250 mls/hr IV ONETIME DANIELITO Last Admin: 03/10/21 07:25 Dose: 250 mls/hr Documented by: RENAE Norepinephrine Bitartrate (Norepinephr-0.9% Nacl 4 Mg/250) 4 mg in 250 mls @ 7.5 mls/hr IV TITRATE DANIELITO; Protocol Last Titration: 03/10/21 09:52 Dose: 15 mcg/min, 56.25 mls/hr Documented by: Admin: 03/10/21 07:36 Dose: 12 mcg/min, 45 mls/hr Documented by: RENAE Norepinephrine Bitartrate (Norepinephr-0.9% Nacl 4 Mg/250) 4 mg in 250 mls @ 37.5 mls/hr IV TITRATE DANIELIOT; Protocol Sodium Chloride (Normal Saline) 1,000 mls @ 100 mls/hr IV .BOLUS ONE Stop: 03/10/21 17:18 Last Admin: 03/10/21 07:31 Dose: 100 mls/hr Documented by: RENAE Vancomycin HCl 1 gm/ Sodium (Chloride) 250 mls @ 250 mls/hr IV Q48H DANIELITO Phenylephrine HCl 10 mg/ (Sodium Chloride) 100 mls @ 24 mls/hr IV TITRATE DANIELITO; Protocol Sodium Chloride (Sodium Chloride 0.9% 10 Ml Syringe) 10 ml FLUSH ASDIRECTED PRN PRN Reason: Keep Vein Open Last Admin: 03/09/21 16:32 Dose: 10 ml Documented by: RENAE Sodium Chloride (Sodium Chloride 0.9% 2.5 Ml Syringe) 2.5 ml FLUSH ASDIRECTED PRN PRN Reason: Keep Vein Open Last Admin: 03/09/21 16:32 Dose: 2.5 ml Documented by: RENAE Labs: Laboratory Tests 03/09/21 03/09/21 03/09/21 Range/Units 05:17 16:10 16:10 WBC 12.36 H (4.0-11.0) K/uL RBC 3.62 L (4.50-5.90) M/uL Hgb 7.9 L (13.0-17.0) g/dL Hct 28.2 L (38.0-50.0) % MCV 77.9 L (80.0-98.0) fL MCH 21.8 L (27.0-32.0) pg MCHC 28.0 L (31.0-37.0) g/dL RDW Std Deviation 54.8 (28.0-62.0) fl RDW Coeff of Tre 19 H (11.0-15.0) % Plt Count 219 (150-400) K/uL MPV 10.70 (7.40-12.00) fL Neut % (Auto) 82.1 H (48.0-80.0) % Lymph % (Auto) 10.0 L (16.0-40.0) % [place] % (Auto) 7.3 (0.0-15.0) % Eos % (Auto) 0.5 (0.0-7.0) % Baso % (Auto) 0.1 (0.0-1.5) % Neut # (Auto) 10.2 H (1.4-5.7) K/uL Lymph # (Auto) 1.2 (0.6-2.4) K/uL [place] # (Auto) 0.9 H (0.0-0.8) K/uL Eos # (Auto) 0.1 (0.0-0.7) K/uL Baso # (Auto) 0.0 (0.0-0.1) K/uL Nucleated RBC % 1.0 /100WBC Nucleated RBCs # 0 K/uL INR 1.38 Sodium (136-148) mmol/L Potassium (3.5-5.1) mmol/L Chloride (98-107) mmol/L Carbon Dioxide (21.0-32.0) mmol/L BUN (7.0-18.0) mg/dL Creatinine (0.8-1.3) mg/dL Est Cr Clr Drug Dosing mL/min Estimated GFR (MDRD) ml/min Glucose (74-106) mg/dL Lactic Acid (0.4-2.0) mmol/L Calcium (8.5-10.1) mg/dL Magnesium (1.8-2.4) mg/dL Total Bilirubin (0.2-1.0) mg/dL AST (15-37) IU/L ALT (14-63) IU/L Alkaline Phosphatase (46-116) U/L Creatine Kinase (26-308) U/L Troponin I (0.000-0.056) ng/mL B-Natriuretic Peptide (<100) PG/ML Total Protein (6.4-8.2) g/dL Albumin (3.4-5.0) g/dL Globulin (2.6-4.0) g/dL Albumin/Globulin Ratio (0.9-1.6) Lipase (73-393) U/L Urine Color YELLOW Urine Appearance SLT CLOUDY Urine pH 5.5 (5.0-8.0) Ur Specific [place] 1.025 (1.001-1.035) Urine Protein 100 H (NEGATIVE) mg/dL Urine Glucose (UA) NEGATIVE (NEGATIVE) mg/dL Urine Ketones NEGATIVE (NEGATIVE) mg/dL Urine Occult Blood TRACE-INTACT H (NEGATIVE) Urine Nitrite NEGATIVE (NEGATIVE) Urine Bilirubin NEGATIVE (NEGATIVE) Urine Urobilinogen 0.2 (<2.0) EU/dL Ur Leukocyte Esterase NEGATIVE (NEGATIVE) Urine RBC 0-2 (0-2/HPF) Urine WBC 1-3 (0-5/HPF) Ur Epithelial Cells OCCASIONAL (NONE-FEW) Calcium Oxalate Crystal OCCASIONAL (NEGATIVE) Urine Bacteria 2+ H (NEGATIVE) Fine Granular Casts 0-2 (NEGATIVE) Ethyl Alcohol mg/dL SARS-CoV-2 RNA ([place]) (NEGATIVE) Blood Type Antibody Screen Crossmatch 03/09/21 03/09/21 03/09/21 Range/Units 16:10 16:30 16:52 WBC (4.0-11.0) K/uL RBC (4.50-5.90) M/uL Hgb (13.0-17.0) g/dL Hct (38.0-50.0) % MCV (80.0-98.0) fL MCH (27.0-32.0) pg MCHC (31.0-37.0) g/dL RDW Std Deviation (28.0-62.0) fl RDW Coeff of Tre (11.0-15.0) % Plt Count (150-400) K/uL MPV (7.40-12.00) fL Neut % (Auto) (48.0-80.0) % Lymph % (Auto) (16.0-40.0) % [place] % (Auto) (0.0-15.0) % Eos % (Auto) (0.0-7.0) % Baso % (Auto) (0.0-1.5) % Neut # (Auto) (1.4-5.7) K/uL Lymph # (Auto) (0.6-2.4) K/uL [place] # (Auto) (0.0-0.8) K/uL Eos # (Auto) (0.0-0.7) K/uL Baso # (Auto) (0.0-0.1) K/uL Nucleated RBC % /100WBC Nucleated RBCs # K/uL INR Sodium (136-148) mmol/L Potassium (3.5-5.1) mmol/L Chloride (98-107) mmol/L Carbon Dioxide (21.0-32.0) mmol/L BUN (7.0-18.0) mg/dL Creatinine (0.8-1.3) mg/dL Est Cr Clr Drug Dosing mL/min Estimated GFR (MDRD) ml/min Glucose (74-106) mg/dL Lactic Acid 3.9 H* (0.4-2.0) mmol/L Calcium (8.5-10.1) mg/dL Magnesium (1.8-2.4) mg/dL Total Bilirubin (0.2-1.0) mg/dL AST (15-37) IU/L ALT (14-63) IU/L Alkaline Phosphatase (46-116) U/L Creatine Kinase (26-308) U/L Troponin I (0.000-0.056) ng/mL B-Natriuretic Peptide 547 H (<100) PG/ML Total Protein (6.4-8.2) g/dL Albumin (3.4-5.0) g/dL Globulin (2.6-4.0) g/dL Albumin/Globulin Ratio (0.9-1.6) Lipase (73-393) U/L Urine Color Urine Appearance Urine pH (5.0-8.0) Ur Specific [place] (1.001-1.035) Urine Protein (NEGATIVE) mg/dL Urine Glucose (UA) (NEGATIVE) mg/dL Urine Ketones (NEGATIVE) mg/dL Urine Occult Blood (NEGATIVE) Urine Nitrite (NEGATIVE) Urine Bilirubin (NEGATIVE) Urine Urobilinogen (<2.0) EU/dL Ur Leukocyte Esterase (NEGATIVE) Urine RBC (0-2/HPF) Urine WBC (0-5/HPF) Ur Epithelial Cells (NONE-FEW) Calcium Oxalate Crystal (NEGATIVE) Urine Bacteria (NEGATIVE) Fine Granular Casts (NEGATIVE) Ethyl Alcohol mg/dL SARS-CoV-2 RNA ([place]) NEGATIVE (NEGATIVE) Blood Type Antibody Screen Crossmatch 03/09/21 03/09/21 03/09/21 Range/Units 16:52 17:20 22:30 WBC (4.0-11.0) K/uL RBC (4.50-5.90) M/uL Hgb (13.0-17.0) g/dL Hct (38.0-50.0) % MCV (80.0-98.0) fL MCH (27.0-32.0) pg MCHC (31.0-37.0) g/dL RDW Std Deviation (28.0-62.0) fl RDW Coeff of Tre (11.0-15.0) % Plt Count (150-400) K/uL MPV (7.40-12.00) fL Neut % (Auto) (48.0-80.0) % Lymph % (Auto) (16.0-40.0) % [place] % (Auto) (0.0-15.0) % Eos % (Auto) (0.0-7.0) % Baso % (Auto) (0.0-1.5) % Neut # (Auto) (1.4-5.7) K/uL Lymph # (Auto) (0.6-2.4) K/uL [place] # (Auto) (0.0-0.8) K/uL Eos # (Auto) (0.0-0.7) K/uL Baso # (Auto) (0.0-0.1) K/uL Nucleated RBC % /100WBC Nucleated RBCs # K/uL INR Sodium 131 L (136-148) mmol/L Potassium 4.7 (3.5-5.1) mmol/L Chloride 92 L (98-107) mmol/L Carbon Dioxide 33.4 H (21.0-32.0) mmol/L BUN 59 H (7.0-18.0) mg/dL Creatinine 4.5 H (0.8-1.3) mg/dL Est Cr Clr Drug Dosing 15.00 mL/min Estimated GFR (MDRD) 13.4 ml/min Glucose 99 (74-106) mg/dL Lactic Acid 3.3 H* (0.4-2.0) mmol/L Calcium 7.7 L (8.5-10.1) mg/dL Magnesium (1.8-2.4) mg/dL Total Bilirubin 0.6 (0.2-1.0) mg/dL AST 33 (15-37) IU/L ALT 15 (14-63) IU/L Alkaline Phosphatase 61 (46-116) U/L Creatine Kinase 171 (26-308) U/L Troponin I 0.367 H* (0.000-0.056) ng/mL B-Natriuretic Peptide (<100) PG/ML Total Protein 5.6 L (6.4-8.2) g/dL Albumin 1.6 L (3.4-5.0) g/dL Globulin 4.0 (2.6-4.0) g/dL Albumin/Globulin Ratio 0.4 L (0.9-1.6) Lipase 142 (73-393) U/L Urine Color Urine Appearance Urine pH (5.0-8.0) Ur Specific [place] (1.001-1.035) Urine Protein (NEGATIVE) mg/dL Urine Glucose (UA) (NEGATIVE) mg/dL Urine Ketones (NEGATIVE) mg/dL Urine Occult Blood (NEGATIVE) Urine Nitrite (NEGATIVE) Urine Bilirubin (NEGATIVE) Urine Urobilinogen (<2.0) EU/dL Ur Leukocyte Esterase (NEGATIVE) Urine RBC (0-2/HPF) Urine WBC (0-5/HPF) Ur Epithelial Cells (NONE-FEW) Calcium Oxalate Crystal (NEGATIVE) Urine Bacteria (NEGATIVE) Fine Granular Casts (NEGATIVE) Ethyl Alcohol < 3.0 mg/dL SARS-CoV-2 RNA ([place]) (NEGATIVE) Blood Type A POSITIVE Antibody Screen NEGATIVE Crossmatch See Detail 03/10/21 03/10/21 03/10/21 Range/Units 05:00 05:00 05:00 WBC (4.0-11.0) K/uL RBC (4.50-5.90) M/uL Hgb (13.0-17.0) g/dL Hct (38.0-50.0) % MCV (80.0-98.0) fL MCH (27.0-32.0) pg MCHC (31.0-37.0) g/dL RDW Std Deviation (28.0-62.0) fl RDW Coeff of Tre (11.0-15.0) % Plt Count (150-400) K/uL MPV (7.40-12.00) fL Neut % (Auto) (48.0-80.0) % Lymph % (Auto) (16.0-40.0) % [place] % (Auto) (0.0-15.0) % Eos % (Auto) (0.0-7.0) % Baso % (Auto) (0.0-1.5) % Neut # (Auto) (1.4-5.7) K/uL Lymph # (Auto) (0.6-2.4) K/uL [place] # (Auto) (0.0-0.8) K/uL Eos # (Auto) (0.0-0.7) K/uL Baso # (Auto) (0.0-0.1) K/uL Nucleated RBC % /100WBC Nucleated RBCs # K/uL INR Sodium (136-148) mmol/L Potassium (3.5-5.1) mmol/L Chloride (98-107) mmol/L Carbon Dioxide (21.0-32.0) mmol/L BUN (7.0-18.0) mg/dL Creatinine (0.8-1.3) mg/dL Est Cr Clr Drug Dosing mL/min Estimated GFR (MDRD) ml/min Glucose (74-106) mg/dL Lactic Acid 2.1 H* (0.4-2.0) mmol/L Calcium (8.5-10.1) mg/dL Magnesium 1.7 L (1.8-2.4) mg/dL Total Bilirubin (0.2-1.0) mg/dL AST (15-37) IU/L ALT (14-63) IU/L Alkaline Phosphatase (46-116) U/L Creatine Kinase (26-308) U/L Troponin I 0.212 H* (0.000-0.056) ng/mL B-Natriuretic Peptide (<100) PG/ML Total Protein (6.4-8.2) g/dL Albumin (3.4-5.0) g/dL Globulin (2.6-4.0) g/dL Albumin/Globulin Ratio (0.9-1.6) Lipase (73-393) U/L Urine Color Urine Appearance Urine pH (5.0-8.0) Ur Specific [place] (1.001-1.035) Urine Protein (NEGATIVE) mg/dL Urine Glucose (UA) (NEGATIVE) mg/dL Urine Ketones (NEGATIVE) mg/dL Urine Occult Blood (NEGATIVE) Urine Nitrite (NEGATIVE) Urine Bilirubin (NEGATIVE) Urine Urobilinogen (<2.0) EU/dL Ur Leukocyte Esterase (NEGATIVE) Urine RBC (0-2/HPF) Urine WBC (0-5/HPF) Ur Epithelial Cells (NONE-FEW) Calcium Oxalate Crystal (NEGATIVE) Urine Bacteria (NEGATIVE) Fine Granular Casts (NEGATIVE) Ethyl Alcohol mg/dL SARS-CoV-2 RNA ([place]) (NEGATIVE) Blood Type Antibody Screen Crossmatch 03/10/21 03/10/21 Range/Units 10:36 10:36 WBC 12.11 H (4.0-11.0) K/uL RBC 3.12 L (4.50-5.90) M/uL Hgb 6.9 L (13.0-17.0) g/dL Hct 24.1 L (38.0-50.0) % MCV 77.2 L (80.0-98.0) fL MCH 22.1 L (27.0-32.0) pg MCHC 28.6 L (31.0-37.0) g/dL RDW Std Deviation 54.5 (28.0-62.0) fl RDW Coeff of Tre 19 H (11.0-15.0) % Plt Count 191 (150-400) K/uL MPV 10.10 (7.40-12.00) fL Neut % (Auto) 85.4 H (48.0-80.0) % Lymph % (Auto) 8.3 L (16.0-40.0) % [place] % (Auto) 5.3 (0.0-15.0) % Eos % (Auto) 0.9 (0.0-7.0) % Baso % (Auto) 0.1 (0.0-1.5) % Neut # (Auto) 10.3 H (1.4-5.7) K/uL Lymph # (Auto) 1.0 (0.6-2.4) K/uL [place] # (Auto) 0.6 (0.0-0.8) K/uL Eos # (Auto) 0.1 (0.0-0.7) K/uL Baso # (Auto) 0.0 (0.0-0.1) K/uL Nucleated RBC % 0.3 /100WBC Nucleated RBCs # 0 K/uL INR Sodium 130 L (136-148) mmol/L Potassium 5.1 (3.5-5.1) mmol/L Chloride 93 L (98-107) mmol/L Carbon Dioxide 28.0 (21.0-32.0) mmol/L BUN 59 H (7.0-18.0) mg/dL Creatinine 4.5 H (0.8-1.3) mg/dL Est Cr Clr Drug Dosing 15.00 mL/min Estimated GFR (MDRD) 13.4 ml/min Glucose 93 (74-106) mg/dL Lactic Acid (0.4-2.0) mmol/L Calcium 7.5 L (8.5-10.1) mg/dL Magnesium (1.8-2.4) mg/dL Total Bilirubin 0.7 (0.2-1.0) mg/dL AST 35 (15-37) IU/L ALT 13 L (14-63) IU/L Alkaline Phosphatase 63 (46-116) U/L Creatine Kinase (26-308) U/L Troponin I (0.000-0.056) ng/mL B-Natriuretic Peptide (<100) PG/ML Total Protein 5.4 L (6.4-8.2) g/dL Albumin 1.3 L (3.4-5.0) g/dL Globulin 4.1 H (2.6-4.0) g/dL Albumin/Globulin Ratio 0.3 L (0.9-1.6) Lipase (73-393) U/L Urine Color Urine Appearance Urine pH (5.0-8.0) Ur Specific [place] (1.001-1.035) Urine Protein (NEGATIVE) mg/dL Urine Glucose (UA) (NEGATIVE) mg/dL Urine Ketones (NEGATIVE) mg/dL Urine Occult Blood (NEGATIVE) Urine Nitrite (NEGATIVE) Urine Bilirubin (NEGATIVE) Urine Urobilinogen (<2.0) EU/dL Ur Leukocyte Esterase (NEGATIVE) Urine RBC (0-2/HPF) Urine WBC (0-5/HPF) Ur Epithelial Cells (NONE-FEW) Calcium Oxalate Crystal (NEGATIVE) Urine Bacteria (NEGATIVE) Fine Granular Casts (NEGATIVE) Ethyl Alcohol mg/dL SARS-CoV-2 RNA ([place]) (NEGATIVE) Blood Type Antibody Screen Crossmatch Meds: Medications Generic Name Dose Route Start Last Admin Trade Name Freq PRN Reason Stop Dose Admin Diltiazem HCl 120 mg 03/09/21 16:45 03/10/21 09:50 Diltiazem 120 Mg Cap.Cd PO 120 mg DAILY DANIELITO Administration Amiodarone HCl/Dextrose 360 mg in 200 mls @ 33.333 mls/hr 03/09/21 18:10 03/09/21 18:55 Nexterone In Dextrose 360 Mg/200 Ml IV 1 mg/min ASDIRECTED DANIELITO 33.333 mls/hr Administration 1 MG/MIN Azithromycin 500 mg/ Sodium 250 mls @ 250 mls/hr 03/09/21 19:45 03/10/21 07:25 Chloride IV 250 mls/hr ONETIME DANIELITO Administration Norepinephrine Bitartrate 4 mg in 250 mls @ 7.5 mls/hr 03/09/21 20:00 03/10/21 09:52 Norepinephr-0.9% Nacl 4 Mg/250 IV 15 mcg/min TITRATE DANIELITO 56.25 mls/hr Titration Protocol 2 MCG/MIN Norepinephrine Bitartrate 4 mg in 250 mls @ 37.5 mls/hr 03/10/21 02:30 Norepinephr-0.9% Nacl 4 Mg/250 IV TITRATE DANIELITO Protocol 10 MCG/MIN Sodium Chloride 1,000 mls @ 100 mls/hr 03/10/21 07:19 03/10/21 07:31 Normal Saline IV 03/10/21 17:18 100 mls/hr .BOLUS ONE Administration Vancomycin HCl 1 gm/ Sodium 250 mls @ 250 mls/hr 03/12/21 07:45 Chloride IV Q48H DANIELITO Phenylephrine HCl 10 mg/ 100 mls @ 24 mls/hr 03/10/21 10:45 Sodium Chloride IV TITRATE DANIELITO Protocol 40 MCG/MIN Sodium Chloride 10 ml 03/09/21 16:12 03/09/21 16:32 Sodium Chloride 0.9% 10 Ml Syringe FLUSH 10 ml ASDIRECTED PRN Administration Keep Vein Open Sodium Chloride 2.5 ml 03/09/21 16:12 03/09/21 16:32 Sodium Chloride 0.9% 2.5 Ml Syringe FLUSH 2.5 ml ASDIRECTED PRN Administration Keep Vein Open Discontinued Medications Generic Name Dose Route Start Last Admin Trade Name Freq PRN Reason Stop Dose Admin Apixaban 10 mg 03/10/21 11:26 Apixaban 5 Mg Tab PO 03/10/21 11:27 ONETIME ONE Digoxin 500 mcg 03/09/21 17:00 03/10/21 11:49 Digoxin 500 Mcg/2 Ml Amp IVPUSH Not Given DAILY DANIELITO Digoxin 250 mcg 03/10/21 06:13 03/10/21 06:37 Digoxin 500 Mcg/2 Ml Amp IVPUSH 03/10/21 06:14 250 mcg ONETIME ONE Administration Digoxin 250 mcg 03/10/21 09:54 03/10/21 11:40 Digoxin 500 Mcg/2 Ml Amp IVPUSH 03/10/21 09:55 250 mcg ONETIME ONE Administration Diltiazem HCl 10 mg 03/09/21 16:15 03/09/21 16:40 Diltiazem 25 Mg/5 Ml Sdv IVPUSH 03/09/21 16:16 5 mg ONETIME ONE Administration Etomidate 8 mg 03/10/21 08:07 Etomidate 2 Mg/Ml 20 Ml Sdv IVPUSH 03/10/21 08:08 ONETIME ONE Etomidate 10 mg 03/10/21 08:08 03/10/21 08:34 Etomidate 2 Mg/Ml 20 Ml Sdv IVPUSH 03/10/21 08:09 5 mg ONETIME ONE Administration Hydrocortisone Sodium Succinate 100 mg 03/10/21 10:45 Hydrocortisone Sodium Succinate 250 Mg/2 Ml Sdv IV 03/10/21 10:46 ONETIME ONE Lactated Ringer's 500 mls @ 999 mls/hr 03/09/21 16:12 03/09/21 16:24 Ringers, Lactated IV 03/09/21 16:42 999 mls/hr .BOLUS ONE Administration Amiodarone HCl/Dextrose 100 mls @ 600 mls/hr 03/09/21 18:00 03/09/21 18:37 Nexterone In Dextrose 150 Mg/100 Ml IV 03/09/21 18:09 600 mls/hr ONETIME ONE Administration Piperacillin Sod/Tazobactam 100 mls @ 100 mls/hr 03/09/21 17:52 03/09/21 18:36 Sod 4.5 gm/ Sodium Chloride IV 03/09/21 18:51 100 mls/hr ONETIME ONE Administration Lactated Ringer's 1,000 mls @ 999 mls/hr 03/09/21 19:41 03/09/21 19:59 Ringers, Lactated IV 03/09/21 20:41 999 mls/hr .BOLUS ONE Administration Norepinephrine Bitartrate Confirm 03/09/21 19:48 03/09/21 19:59 Norepinephr-0.9% Nacl 4 Mg/250 Administered 03/09/21 19:49 37.5 mls/hr Dose Administration 4 mg in 250 mls @ as directed IV .STK-MED ONE Magnesium Sulfate 2 gm/ Premix 50 mls @ 12.5 mls/hr 03/10/21 06:12 03/10/21 06:36 IV 03/10/21 10:11 12.5 mls/hr ONETIME ONE Administration Piperacillin Sod/Tazobactam 100 mls @ 100 mls/hr 03/10/21 07:17 03/10/21 08:54 Sod 4.5 gm/ Sodium Chloride IV 03/10/21 08:16 100 mls/hr ONETIME ONE Administration Vancomycin HCl 1.25 gm/ Premix 250 mls @ 166.667 mls/hr 03/10/21 07:45 03/10/21 09:46 IV 03/10/21 09:14 166.667 mls/hr ONETIME ONE Administration Lactated Ringer's 250 mls @ 999 mls/hr 03/10/21 10:43 03/10/21 11:47 Ringers, Lactated IV 03/10/21 10:58 999 mls/hr .BOLUS ONE Administration Levofloxacin/Dextrose 500 mg/ 100 mls @ 100 mls/hr 03/10/21 10:46 03/10/21 11:30 Premix IV 03/10/21 11:45 100 mls/hr ONETIME ONE Administration Ketamine HCl 189 mg 03/10/21 07:34 03/10/21 08:54 Ketamine 500 Mg/10 Ml Mdv IV 03/10/21 07:35 Not Given ONETIME ONE Ketamine HCl 15 mg 03/10/21 08:07 03/10/21 08:33 Ketamine 500 Mg/10 Ml Mdv IV 03/10/21 08:08 15 mg ONETIME ONE Administration Ondansetron HCl 4 mg 03/10/21 02:38 03/10/21 02:46 Ondansetron 4 Mg/2 Ml Sdv IVPUSH 03/10/21 02:39 4 mg ONETIME ONE Administration Vancomycin HCl 1 dose 03/10/21 07:20 03/10/21 09:49 Pharmacy To Dose - Vancomycin .XX 03/10/21 07:21 Not Given ONETIME ONE Departure - Departure Time of Disposition: 10:54 Condition: Critical Sepsis Event Note (ED) - Evaluation Sepsis Screening Result: No Definite Risk - Focused Exam Vital Signs: Vital Signs Temp Pulse Pulse Resp BP BP Pulse Ox 03/10/21 11:50 36.6 C 122 H 18 99/51 L 100 03/10/21 11:49 118 H 03/10/21 11:40 123 H 03/10/21 09:50 117 H 65/41 L 03/10/21 09:20 116 H 20 81/48 L 100 03/10/21 09:10 107 H 20 83/53 L 99 03/10/21 09:00 118 H 22 H 89/58 L 100 03/10/21 08:55 36.2 C 119 H 22 H 97/54 L 100 03/10/21 08:30 116 H 20 78/50 L 100 03/10/21 07:32 130 H 20 87/43 L 100 03/10/21 06:44 125 H 20 90/53 L 99 03/10/21 06:37 122 H 03/10/21 05:53 128 H 20 88/39 L 96 03/10/21 05:23 120 H 19 93/68 96 03/10/21 05:04 118 H 19 83/58 L 98 03/10/21 04:09 123 H 21 H 80/55 L 99 03/10/21 04:01 120 H 19 105/43 L 95 03/10/21 02:50 124 H 20 83/43 L 97 03/10/21 02:36 127 H 20 83/41 L 97 03/10/21 02:20 120 H 19 102/61 99 03/10/21 01:40 124 H 20 98/56 L 100 03/10/21 00:38 118 H 20 85/49 L 95 - My Orders Last 24 Hours: My Active Orders 03/09/21 16:12 Sodium Chloride 0.9% [Saline Flush] 10 ml FLUSH ASDIRECTED PRN Sodium Chloride 0.9% [Saline Flush] 2.5 ml FLUSH ASDIRECTED PRN 03/09/21 16:13 Cardiac Monitoring [RC] . DIRECTED Pulse Oximetry [RC] ASDIRECTED Blood Culture x2 Reflex Set [OM.PC] Stat Saline Lock Insert [OM.PC] Stat 03/09/21 16:45 Diltiazem [Cardizem CD] 120 mg PO DAILY 03/09/21 16:52 BLOOD CULTURE ID [MREF] Routine CULTURE BLOOD [BC] Stat 03/09/21 17:02 CULTURE BLOOD [BC] Stat 03/09/21 17:20 TYPE AND SCREEN [BBK] Stat 03/09/21 18:10 Amiodarone In Dextrose,Iso-Osm [Nexterone in Dextrose 360 MG/200 ML] 360 mg in 200 ml IV ASDIRECTED 03/09/21 19:45 Azithromycin [Zithromax] 500 mg Sodium Chloride 0.9% [Normal Saline AdvBag] 250 ml IV ONETIME 03/09/21 20:00 Norepinephrine Bit/0.9 % NaCl [Norepinephr-0.9% NaCl 4 mg/250] 4 mg in 250 ml IV TITRATE 03/10/21 07:19 Sodium Chloride 0.9% [Normal Saline] 1,000 ml IV .BOLUS 03/10/21 10:45 Phenylephrine [Felix-Synephrine] 10 mg Sodium Chloride 0.9% [Normal Saline] 99 ml IV TITRATE 03/10/21 11:09 RED BLOOD CELLS LP [BBK] Stat Transfuse Red Blood Cells [COMM] Stat 03/10/21 11:10 Verify Patient Consent Obtain [RC] ASDIRECTED 03/10/21 11:22 Urinary Catheter Assessment [RC] ASDIRECTED 03/10/21 11:30 Weathers Catheter Insertion [Insert Urinary Catheter] [OM.PC] Q24H CORTISOL [REF] Stat 03/12/21 07:45 Vancomycin 1 gm Sodium Chloride 0.9% [Normal Saline AdvBag] 250 ml IV Q48H - Assessment/Plan Last 24 Hours: My Active Orders 03/09/21 16:12 Sodium Chloride 0.9% [Saline Flush] 10 ml FLUSH ASDIRECTED PRN Sodium Chloride 0.9% [Saline Flush] 2.5 ml FLUSH ASDIRECTED PRN 03/09/21 16:13 Cardiac Monitoring [RC] . DIRECTED Pulse Oximetry [RC] ASDIRECTED Blood Culture x2 Reflex Set [OM.PC] Stat Saline Lock Insert [OM.PC] Stat 03/09/21 16:45 Diltiazem [Cardizem CD] 120 mg PO DAILY 03/09/21 16:52 BLOOD CULTURE ID [MREF] Routine CULTURE BLOOD [BC] Stat 03/09/21 17:02 CULTURE BLOOD [BC] Stat 03/09/21 17:20 TYPE AND SCREEN [BBK] Stat 03/09/21 18:10 Amiodarone In Dextrose,Iso-Osm [Nexterone in Dextrose 360 MG/200 ML] 360 mg in 200 ml IV ASDIRECTED 03/09/21 19:45 Azithromycin [Zithromax] 500 mg Sodium Chloride 0.9% [Normal Saline AdvBag] 250 ml IV ONETIME 03/09/21 20:00 Norepinephrine Bit/0.9 % NaCl [Norepinephr-0.9% NaCl 4 mg/250] 4 mg in 250 ml IV TITRATE 03/10/21 07:19 Sodium Chloride 0.9% [Normal Saline] 1,000 ml IV .BOLUS 03/10/21 10:45 Phenylephrine [Felix-Synephrine] 10 mg Sodium Chloride 0.9% [Normal Saline] 99 ml IV TITRATE 03/10/21 11:09 RED BLOOD CELLS LP [BBK] Stat Transfuse Red Blood Cells [COMM] Stat 03/10/21 11:10 Verify Patient Consent Obtain [RC] ASDIRECTED 03/10/21 11:22 Urinary Catheter Assessment [RC] ASDIRECTED 03/10/21 11:30 Weathers Catheter Insertion [Insert Urinary Catheter] [OM.PC] Q24H CORTISOL [REF] Stat 03/12/21 07:45 Vancomycin 1 gm Sodium Chloride 0.9% [Normal Saline AdvBag] 250 ml IV Q48H
[2021-03-09] MEDS: Diltiazem 25 MG/5 ML SDV IVPUSH ONE ×2 (16:24→16:40)
--- NOTE | 2021-03-09 17:34 | CR ---
Indication: Chest pain after fall Technique: Chest 1 view Comparison: March 08, 2021 Findings/Impression: Stable cardiomediastinal silhouette. Normal vasculature. Minimal new atelectasis or infiltrate at the left lung base. No effusion or pneumothorax. Status post left shoulder total arthroplasty. No acute osseous abnormality. Dictated by Pratima Ozuna MD @ 03/09/2021 5:31:49 PM (Electronically Signed)
[2021-03-09] MEDS: Diltiazem 120 MG Cap.CD PO SCH (17:35)
[2021-03-09] MEDS: Digoxin 500 MCG/2 ML Amp IVPUSH SCH (17:36)
[2021-03-09] MEDS ORDERED: Piperacillin/Tazobactam 4.5 GM in Sodium Chloride 0.9% 100 ML IV ONE (17:52)
[2021-03-09] MEDS ORDERED: DEXTROSE ISO OSM IV ONE (18:00)
[2021-03-09] MEDS ORDERED: AMIODARONE IV ONE (18:00)
[2021-03-09 18:18] LABS: BLOOD UREA NITROGEN,BUN 59 mg/dL (7.0-18.0); CARBON DIOXIDE,CO2 33.4 mmol/L (21.0-32.0); CHLORIDE,CL 92 mmol/L (98-107); GLUCOSE RANDOM 99 mg/dL (74-106); LIPASE 142 U/L (73-393); POTASSIUM,K 4.7 mmol/L (3.5-5.1); SODIUM,NA 131 mmol/L (136-148)
[2021-03-09] MEDS: Amiodarone 360 MG In Dextrose 200 ML IV SCH (18:55)
[2021-03-09] MEDS ORDERED: Lactated Ringers 1,000 ML IV ONE (19:41)
[2021-03-09] MEDS ORDERED: Azithromycin 500 MG in Sodium Chloride 0.9% 250 ML IV SCH (19:45)
--- NOTE | 2021-03-09 20:03 | PCM.SN.2 ---
- Free Text/Narrative Note: Called to ED at 1852 for ultrasound IV. Arrived at 1908, prior to initiating IV placement, ER physician decided to place central line instead of PIV. Central Line placed by Dr. Domingo Time Documentation
--- NOTE | 2021-03-09 22:00 | CT ---
INDICATION: Pain following fall. CT HEAD WITHOUT CONTRAST TECHNIQUE: Multiple axial CT images were performed through the head without intravenous contrast administration. COMPARISON: 01/21/[address] FINDINGS: No acute intracranial hemorrhage is identified. No extra-axial collections are evident and there is no mass effect or midline shift. There is mild diffuse age-related brain atrophy. Ventricular size and configuration are within normal limits for the patient`s age. Frank-white differentiation is within normal limits. There is stable mild patchy hypodensity in the periventricular white matter, a nonspecific finding which most likely reflects chronic small vessel ischemic change. Intracranial atherosclerotic vascular calcifications are noted. Osseous structures are within normal limits and no fractures are seen. Included portions of the paranasal sinuses and mastoid air cells are normally aerated aside from unchanged near-complete soft tissue opacification of the ight maxillary sinus. IMPRESSION: 1. No acute intracranial abnormality identified. No fracture is seen. 2. Mild age-related brain atrophy, white matter hypodensity consistent with chronic small vessel ischemic change, and intracranial atherosclerotic vascular calcifications. VITA ALDRICH MD [facility] Please note that all CT scans at this facility use dose modulation, iterative reconstruction, and/or weight-based dosing when appropriate to reduce radiation dose to as low as reasonably achievable. Dictated by: Alf Aldrich MD @ 03/09/2021 21:58:42 (Electronically Signed)
[2021-03-10] MEDS ORDERED: Ondansetron 4 MG/2 ML SDV IVPUSH ONE (02:38)
[2021-03-10] MEDS ORDERED: Magnesium Sulfate/Water 2 GM in Premix Bag 1 BAG IV ONE (06:12)
[2021-03-10] MEDS ORDERED: Digoxin 500 MCG/2 ML Amp IVPUSH ONE ×2 (06:13→09:54)
[2021-03-10] MEDS ORDERED: Piperacillin/Tazobactam 4.5 GM in Sodium Chloride 0.9% 100 ML IV ONE (07:17)
[2021-03-10] MEDS ORDERED: Sodium Chloride 0.9% 1,000 ML IV ONE (07:19)
[2021-03-10] MEDS ORDERED: Ketamine 500 mg/10 ML MDV IV ONE ×2 (07:34→08:07)
[2021-03-10] MEDS ORDERED: VANCOmycin 1.25 GM/250 ML 1.25 GM in Premix Bag 1 BAG IV ONE (07:45)
[2021-03-10] MEDS ORDERED: Etomidate 2 MG/ML 20 ML SDV IVPUSH ONE ×2 (08:07→08:08)
[2021-03-10] MEDS: Diltiazem 120 MG Cap.CD PO SCH ×2 (09:50)
[2021-03-10] MEDS ORDERED: Lactated Ringers 250 ML IV ONE (10:43)
[2021-03-10] MEDS ORDERED: Phenylephrine 10 MG in Sodium Chloride 0.9% 99 ML IV SCH (10:45)
[2021-03-10] MEDS ORDERED: Hydrocortisone Sodium Succinate 250 MG/2 ML SDV IV ONE ×2 (10:45→12:45)
[2021-03-10] MEDS ORDERED: Levofloxacin/Dextrose 5%-Water 500 MG in Premix Bag 1 BAG IV ONE (10:46)
--- NOTE | 2021-03-10 10:52 | US ---
INDICATION: Leg pain and swelling TECHNIQUE: Ultrasound venous duplex lower right extremity. Compression venous exam was performed using moise-scale, color Doppler, and spectral Doppler imaging. COMPARISON: None. FINDINGS: Sonographic imaging demonstrates the right common femoral, deep femoral, superficial femoral, popliteal, posterior tibial and greater saphenous and the contralateral left common femoral veins to be fully compressible with normal color Doppler blood flow. Mild superficial soft tissue swelling. IMPRESSION: Normal right lower extremity venous ultrasound, no sign of deep venous thrombosis. Mild superficial soft tissue swelling. Dictated by Sudhir Blair MD @ 03/10/2021 10:49:57 AM (Electronically Signed)
[2021-03-10 11:18] LABS: POTASSIUM,K 5.1 mmol/L (3.5-5.1)
[2021-03-10] MEDS ORDERED: Apixaban 5 MG Tab PO ONE ×2 (11:26→12:45)
[2021-03-10] MEDS: Digoxin 500 MCG/2 ML Amp IVPUSH SCH (11:49)
[2021-03-10] MEDS: Amiodarone 360 MG In Dextrose 200 ML IV SCH (12:36)
[2021-03-10] MEDS ORDERED: Hydrocortisone Sodium Succinate 100 MG/2 ML SDV IV ONE (12:45)
[2021-03-10 19:33] VITALS: BP 92/53; PULSE 122
== END 2021-03-10 13:26 ==
LOC: MW.ED 15:59
DX: A41.9 Sepsis, unspecified organism (principal); J18.9 Pneumonia, unspecified organism; L03.115 Cellulitis of right lower limb; I48.91 Unspecified atrial fibrillation; N17.9 Acute kidney failure, unspecified; I11.0 Hypertensive heart disease with heart failure; I50.9 Heart failure, unspecified; I25.2 Old myocardial infarction; J44.9 Chronic obstructive pulmonary disease, unspecified; K21.9 Gastro-esophageal reflux disease without esophagitis; M06.9 Rheumatoid arthritis, unspecified; Z79.01 Long term (current) use of anticoagulants; Z88.8 Allergy status to other drugs, medicaments and biological substances; Z88.1 Allergy status to other antibiotic agents; Z79.899 Other long term (current) drug therapy; Z20.822 Contact with and (suspected) exposure to COVID-19
CPT/HCPCS: 36415; 36430; 36556; 51702; 70450; 71045; 80053; 80307; 81001; 82533; 82550; 83605; 83690; 83735; 83880; 84484; 85025; 85610; 86850; 86900; 86901; 86920; 86921; 86922; 87040; 87077; 87150; 87186; 92960; 93005; 93971; 96365; 96375; 99291; A9270; J0282; J0456; J1160; J1720; J1956; J2370; J2405; J2543; J3370; J3475; J3490; J7030; J7050; J7120; P9016; U0002

== ENCOUNTER 2021-03-26 15:46 | Emergency (ER) | payer MEDICARE, OTHER ==
[2021-03-26] MEDS ORDERED: Lactated Ringers 500 ML IV ONE (16:15)
[2021-03-26] MEDS ORDERED: Sodium Chloride 0.9% 2.5 ML Syringe FLUSH PRN (16:15)
[2021-03-26] MEDS ORDERED: Sodium Chloride 0.9% 10 ML Syringe FLUSH PRN (16:15)
[2021-03-26] MEDS ORDERED: Vancomycin 125 MG Cap PO STA (16:18)
--- NOTE | 2021-03-26 16:21 | EDM.PDOC ---
<Maximiliano Fall - Last Filed: 03/26/21 18:40> ED HPI GENERAL MEDICAL PROBLEM - General Chief Complaint: Gastrointestinal Problem Stated Complaint: OSTEO DEHYDRATED Time Seen by Provider: 03/26/21 16:03 Source of Information: Reports: Patient - History of Present Illness INITIAL COMMENTS - FREE TEXT/NARRATIVE: 61-year-old male with extensive past medical history presents from [facility] when he was sent in after giving antibiotics for right shoulder osteomyelitis. The patient was found to be mildly hypotensive with shivers and not responsive to a small IV fluid bolus and was sent in for evaluation. Patient does have significant anemia and white blood cell count elevation and renal insufficiency but these at the patient's baseline. The patient has had some chills. Had some abdominal pain. There has been diarrhea over the last 4 days multiple times a day. Patient denies any current shortness of breath or chest pain. No exacerbating relieving factors. Abdomen Pain Score (Numeric/FACES): 7 - Related Data Allergies Allergy/AdvReac Type Severity Reaction Status Date / Time itraconazole [From Sporanox] Allergy Unknown Confusion Verified 03/09/21 16:07 levofloxacin [From Levaquin] Allergy Unknown Other Verified 03/09/21 16:07 meropenem Allergy Swelling Verified 03/09/21 16:07 Home Meds: Home Meds Metoprolol Tartrate [Lopressor] 50 mg PO BID tablet 07/21/18 [Rx] Fluticasone/Vilanterol [Breo Ellipta 200-25 MCG Inhalation Kit] 1 puff INH DAILY 08/10/20 [History] HYDROmorphone [Dilaudid] 4 mg PO Q4H PRN 08/10/20 [History] Testosterone 300 mg TD DAILY 08/10/20 [History] Tiotropium [place] [Spiriva Respimat] 2 puff INH DAILY 09/14/20 [History] Gabapentin [Neurontin] 800 mg PO QID tablet 09/16/20 [Rx] Furosemide [Lasix] 40 mg PO BID 09/21/20 [History] Omeprazole 40 mg PO ACBREAKFAST 11/21/20 [History] Potassium Chloride [Klor-Con M10] 10 meq PO DAILY 11/21/20 [History] predniSONE [Prednisone] 20 mg PO DAILY 14 Days #14 tablet 02/02/21 [Rx] Acetaminophen/oxyCODONE [Percocet 325-5 MG] 1 - 2 each PO Q4HR PRN #14 tab 03/08/21 [Rx] cephALEXin [Cephalexin] 500 mg PO BID #14 capsule 03/08/21 [Rx] Past Medical History HEENT History: Reports: Cataract Other HEENT History: dental fillings due to caries; recent tooth fracture Cardiovascular History: Reports: Afib, Cardiomyopathy, Heart Failure, Hypertension, AL Other Cardiovascular History: Heart attack April 2010, Pulmonary embolism 2009 Respiratory History: Reports: Asthma, Bronchitis, Recurrent, COPD, PE, Pneumonia, Recurrent, Other (See Below) Other Respiratory History: Chronic pulmonary aspergillosis, 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 on 02 at home - 2liters at daytime, 4 liters at bedtimeper nasal cannula Gastrointestinal History: Reports: Diverticulosis, GERD, Other (See Below) Other Gastrointestinal History: diverticulitis, peristalisis diagnosed with egd 2 weeks ago Genitourinary History: Reports: BPH, Renal Calculus, Renal Disease, UTI, Recurrent Other Genitourinary History: Left nephrectomy Musculoskeletal History: Reports: Arthritis, Back Pain, Chronic, Gout, Osteoporosis, RA, Other (See Below) Other Musculoskeletal History: lumbar fracture, rotator cap syndrome, bilateral feet fracture, osteomyelitis; hammer toes, elbow strain. bilateral achilles tendon ruptures and repair., hip replacement, removal of left humerous, reverse right shoulder replacement Neurological History: Reports: Neuropathy, Peripheral, TIA Other Neuro History: TIA 1999 Psychiatric History: Reports: Anxiety, Depression Endocrine/Metabolic History: Reports: Osteoporosis Hematologic History: Reports: Anticoagulation Therapy Immunologic History: Reports: Immunosuppression Oncologic (Cancer) History: Reports: Other (See Below) Other Oncologic History: melanoma of the right eye Dermatologic History: Reports: Cellulitis, Melanoma, Other (See Below) Other Dermatologic History: melanoma in the eye, 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 No explantation--they apparently just treated him with IV abx for months. - Past Surgical History Head Surgeries/Procedures: Reports: None HEENT Surgical History: Reports: Cataract Surgery Cardiovascular Surgical History: Reports: None Respiratory Surgical History: Reports: Lung Resection Other Respiratory Surgeries/Procedures: intubated last Feb 2018 and transfered to [place] [facility] Surgical History: Reports: Colonoscopy Other GI Surgeries/Procedures: colostomy and reversal 20yrs ago Male Surgical History: Reports: None Endocrine Surgical History: Reports: None Neurological Surgical History: Reports: None Musculoskeletal Surgical History: Reports: Amputation, Shoulder Surgery, Other (See Below) Other Musculoskeletal Surgeries/Procedures:: L shoulder and left hip replacementsurgery. R shohilda- antibiotic beads with sx february 2020, in process now. Oncologic Surgical History: Reports: None Dermatological Surgical History: Reports: None Social & Family History - Family History Family Medical History: No Pertinent Family History - Caffeine Use Caffeine Use: Reports: None Other Caffeine Use: 1 daily - Recreational Drug Use Recreational Drug Use: No - Living Situation & Occupation Living situation: Reports: Single, with Family (sons) Occupation: Disabled ED ROS GENERAL - Review of Systems Review Of Systems: Comprehensive ROS is negative, except as noted in HPI. ED EXAM, GENERAL - Physical Exam Free Text/Narrative:: CONSTITUTIONAL: well appearing in no acute distress SKIN: Erythema to the skin of the right shoulder without fluctuance HENT: Normocephalic, atraumatic, PULMONARY: clear to ausculation bilaterally. No rales, rhonchi, wheezing CARDIOVASCULAR: regular rate, No murmur, rubs, or gallops GASTROINTESTINAL: soft, diffuse mild tenderness NEUROLOGIC: normal speech, II-XII intact. sensory motor function grossly intact MUSCULOSKELETAL: Patient with good range of the shoulder without marked significant pain PSYCHIATRIC: normal mood and affect #1 Interpretation Time: 17:15 EKG Interpretation Comments: 90, normal sinus rhythm, nonspecific/ST/T findings Course - Vital Signs Text/Narrative:: Differential diagnosis: Sepsis, C. difficile, gastroenteritis, bowel obstruction, septic joint, bowel obstruction, intra-abdominal infection, pneumonia, Covid, UTI, other Patient presents as outlined above. Patient has some mild hypotension but does not appear to be too far off his baseline when vital signs are reviewed. Patient's lactic acidosis from previous sepsis is cleared. Patient was given a total of a liter of IV fluids between being sent in from the infusion center and here in the ED. Patient's blood pressures at around 100 systolic at this time. Patient has been having diarrhea over the last several days. CT scan shows evidence of enteritis. C. difficile ordered and vancomycin given. Patient shoulder at this time does have some erythema to the skin and he is being treated for osteomyelitis I am informed. He does have good range of motion to the joint and he does not appear to have a septic joint at this time. My concern is the patient is quite tenuous at baseline. His hemoglobin is low but stable. I feel the patient be best served to be in the hospital and appropriate fluid resuscitation and observation to ensure that we can get him through this. Of his enteritis and to ensure that he does not to get to sick too quickly at home Departure - Departure Disposition: DC/Tfer to Acute Hospital 02 Condition: Fair Clinical Impression: Enteritis, Hypotension, Anemia, Shoulder osteomyelitis, right - Discharge Information Referrals: Connor Melchor MD [Primary Care Provider] - Forms: ED Department Discharge Sepsis Event Note (ED) - Evaluation Sepsis Screening Result: No Definite Risk <Brandin Chao - Last Filed: 03/27/21 04:31> ED HPI GENERAL MEDICAL PROBLEM - History of Present Illness INITIAL COMMENTS - FREE TEXT/NARRATIVE: Patient was signed out to me by Dr. Fall pending reevaluation after fluid bolus and admission with Dr. Gonsalves at 7pm. I promptly performed a detailed physical examination and my examination was done after ED treatments were initiated by the signout provider. Patient has been under the care of previous provider up until this point. On reevaluation patient was sitting comfortably in the stretcher. At this time the patient was currently receiving IV fluid boluses. The patient's blood pressure was 99/48 with no tachycardia and was saturating 100% on his home oxygen level. At this time given the patient has received 1.5 L of LR, had blood cultures drawn and started antibiotics I did add an additional amount of fluid to equate to 30 cc/kg bolus given that the patient's map was less than 65. We will reevaluate the patient's blood pressure. After additional fluid boluses the patient's blood pressure did improve to 101/60 and his vitals continue to remain stable. At this time I do believe the patient is stable for admission. I did contact Dr. Gonsalves who stated he would come down to the emergency department and evaluate the patient. Dr. Gonsalves did come and evaluate the patient. At this time he recommends a repeat CT of his right shoulder to evaluate for abscess. The radiological images were viewed by myself along with reading the report from the radiologist. CT of the right shoulder without contrast reveals complete erosion of the right humeral head with prominent superior subluxation of the remaining humerus. There is again seen a moderate soft tissue swelling and fluid around the neck of the humerus and the joint capsule. There is a decrease in the size of the fluid collection located within the muscle belly of the deltoid now measuring 2.8 x 2.0 x 2.4 cm consistent with resolving hematoma versus abscess. This appearance of the humeral head is stable as compared to prior. After patient returned from CT the patient's blood pressure did decrease down to a systolic of 84/38 with a MAP of 53. Given the patient is already received 30 cc/kg bolus and the patient already has a central line we did start the patient on Levophed to complete a MAP of greater than 65. Given the complex history of this patient had multiple recent admissions adrenal insufficiency and hypothyroidism are on the differential. We will provide 100 of both levothyroxine and hydrocortisone. I did repeat the patient's antibiotics of p.o. vancomycin and started the patient on Flagyl 500 mg. We will continue with lactated Ringer's maintenance fluids. I do not believe repeat labs are indicated at this time. Given that we do not have any ICU beds available we did contact [facility] in [place], [facility] in [place], [facility] in [place], [facility] in [place], [facility] all of which have no capacity for ICU patient. Therefore we contacted [facility] and I spoke with Dr. Sherman who accepted the patient for transfer. The patient will be transferred via fixed wing. DISPOSITION: Patient was transferred to [place] in stable yet serious condition CONDITION: Serious PROCEDURES: Cardiac monitoring interpretation, pulse oximetry interpretation FINAL IMPRESSION(S)/DIAGNOSES: 1. Acute shock likely septic shock secondary to C. difficile colitis versus dehydration 2. Chronic right shoulder osteomyelitis Critical Care Procedure Note Authorized and performed by: Brandin Chao M.D. Critical Care Time: 125 minutes Due to a high probability of clinically significant, life threatening deterioration, the patient required my highest level of preparedness to intervene emergently and I personally spent this critical care time directly and personally managing the patient. This critical care time included obtaining a history, examining the patient, pulse oximetry; ordering and review of studies; arranging urgent treatment with development of a management plan; evaluation of a patients reponse to treatment; frequent assessment; and discussions with other providers. This critical care time was performed to assess and manage the high probability of imminent, life threatening deterioration that could result in multiorgan failure. It was exclusive of separate billable procedures and treating other patients. Please see MDM section and rest of the note for further information on patient assessment and treatment. Please see MDM section and rest of the note for further information on patient assessment and treatment. Brandin Chao M.D. ED EXAM, GENERAL - Physical Exam Exam: See Below Course - Vital Signs Last Recorded V/S: Last Vital Signs Temp 37.4 C 03/26/21 16:04 Pulse 98 03/27/21 04:18 Resp 19 03/27/21 04:18 BP 109/61 03/27/21 04:18 Pulse Ox 97 03/27/21 04:18 - Orders/Labs/Meds Orders: Active Orders 24 hr Category Date Time Status Cardiac Monitoring [RC] . DIRECTED Care 03/26/21 16:16 Active Pulse Oximetry [RC] ASDIRECTED Care 03/26/21 16:16 Active CULTURE BLOOD [BC] Stat Lab 03/26/21 17:38 Received CULTURE BLOOD [BC] Stat Lab 03/26/21 17:57 Received Lactated Ringers [Ringers, Lactated] 1,000 ml Med 03/27/21 01:30 Active IV ASDIRECTED Norepinephrine Bit/0.9 % NaCl [Norepinephr-0.9% NaCl 4 Med 03/27/21 02:15 Active mg/250] 4 mg in 250 ml IV TITRATE Sodium Chloride 0.9% [Saline Flush] Med 03/26/21 16:15 Active 10 ml FLUSH ASDIRECTED PRN Sodium Chloride 0.9% [Saline Flush] Med 03/26/21 16:15 Active 2.5 ml FLUSH ASDIRECTED PRN Blood Culture x2 Reflex Set [OM.PC] Stat Oth 03/26/21 16:16 Ordered Saline Lock Insert [OM.PC] Stat Oth 03/26/21 16:16 Ordered Medication Orders Lactated Ringer's (Ringers, Lactated) 1,000 mls @ 150 mls/hr IV ASDIRECTED DANIELITO Last Admin: 03/27/21 01:29 Dose: 150 mls/hr Documented by: DB Norepinephrine Bitartrate (Norepinephr-0.9% Nacl 4 Mg/250) 4 mg in 250 mls @ 7.5 mls/hr IV TITRATE DANIELITO; Protocol Last Admin: 03/27/21 02:40 Dose: 2 mcg/min, 7.5 mls/hr Documented by: DERECK Sodium Chloride (Sodium Chloride 0.9% 10 Ml Syringe) 10 ml FLUSH ASDIRECTED PRN PRN Reason: Keep Vein Open Last Admin: 03/26/21 17:56 Dose: 10 ml Documented by: GINI Sodium Chloride (Sodium Chloride 0.9% 2.5 Ml Syringe) 2.5 ml FLUSH ASDIRECTED PRN PRN Reason: Keep Vein Open Last Admin: 03/26/21 17:56 Dose: 2.5 ml Documented by: GINI Labs: Laboratory Tests 03/26/21 03/26/21 03/26/21 Range/Units 16:33 17:38 17:38 WBC 13.75 H (4.0-11.0) K/uL RBC 3.08 L (4.50-5.90) M/uL Hgb 7.5 L (13.0-17.0) g/dL Hct 26.2 L (38.0-50.0) % MCV 85.1 (80.0-98.0) fL MCH 24.4 L (27.0-32.0) pg MCHC 28.6 L (31.0-37.0) g/dL RDW Std Deviation 61.9 (28.0-62.0) fl RDW Coeff of Tre 20 H (11.0-15.0) % Plt Count 220 (150-400) K/uL MPV 9.20 (7.40-12.00) fL Neut % (Auto) 73.1 (48.0-80.0) % Lymph % (Auto) 17.7 (16.0-40.0) % Franklin % (Auto) 8.7 (0.0-15.0) % Eos % (Auto) 0.4 (0.0-7.0) % Baso % (Auto) 0.1 (0.0-1.5) % Neut # (Auto) 10.1 H (1.4-5.7) K/uL Lymph # (Auto) 2.4 (0.6-2.4) K/uL Franklin # (Auto) 1.2 H (0.0-0.8) K/uL Eos # (Auto) 0.1 (0.0-0.7) K/uL Baso # (Auto) 0.0 (0.0-0.1) K/uL Nucleated RBC % 0.2 /100WBC Nucleated RBCs # 0 K/uL INR Sodium 137 (136-148) mmol/L Potassium 3.6 (3.5-5.1) mmol/L Chloride 96 L (98-107) mmol/L Carbon Dioxide 38.2 H (21.0-32.0) mmol/L BUN 33 H (7.0-18.0) mg/dL Creatinine 2.7 H (0.8-1.3) mg/dL Est Cr Clr Drug Dosing 24.99 mL/min Estimated GFR (MDRD) 24.1 ml/min Glucose 86 (74-106) mg/dL Lactic Acid (0.4-2.0) mmol/L Calcium 7.3 L (8.5-10.1) mg/dL Total Bilirubin 0.2 (0.2-1.0) mg/dL AST 13 L (15-37) IU/L ALT 8 L (14-63) IU/L Alkaline Phosphatase 59 (46-116) U/L Troponin I < 0.050 (0.000-0.056) ng/mL C-Reactive Protein 14.00 H (0.00-0.90) mg/dL Total Protein 6.5 (6.4-8.2) g/dL Albumin 1.9 L (3.4-5.0) g/dL Globulin 4.6 H (2.6-4.0) g/dL Albumin/Globulin Ratio 0.4 L (0.9-1.6) Lipase 79 (73-393) U/L Urine Color Urine Appearance Urine pH (5.0-8.0) Ur Specific Kimm[place] (1.001-1.035) Urine Protein (NEGATIVE) mg/dL Urine Glucose (UA) (NEGATIVE) mg/dL Urine Ketones (NEGATIVE) mg/dL Urine Occult Blood (NEGATIVE) Urine Nitrite (NEGATIVE) Urine Bilirubin (NEGATIVE) Urine Urobilinogen (<2.0) EU/dL Ur Leukocyte Esterase (NEGATIVE) Urine RBC (0-2/HPF) Urine WBC (0-5/HPF) Ur Epithelial Cells (NONE-FEW) Urine Bacteria (NEGATIVE) SARS-CoV-2 RNA (LINCOLN) NEGATIVE (NEGATIVE) Blood Type Antibody Screen 03/26/21 03/26/21 03/26/21 Range/Units 17:38 17:38 17:57 WBC (4.0-11.0) K/uL RBC (4.50-5.90) M/uL Hgb (13.0-17.0) g/dL Hct (38.0-50.0) % MCV (80.0-98.0) fL MCH (27.0-32.0) pg MCHC (31.0-37.0) g/dL RDW Std Deviation (28.0-62.0) fl RDW Coeff of Tre (11.0-15.0) % Plt Count (150-400) K/uL MPV (7.40-12.00) fL Neut % (Auto) (48.0-80.0) % Lymph % (Auto) (16.0-40.0) % Franklin % (Auto) (0.0-15.0) % Eos % (Auto) (0.0-7.0) % Baso % (Auto) (0.0-1.5) % Neut # (Auto) (1.4-5.7) K/uL Lymph # (Auto) (0.6-2.4) K/uL Franklin # (Auto) (0.0-0.8) K/uL Eos # (Auto) (0.0-0.7) K/uL Baso # (Auto) (0.0-0.1) K/uL Nucleated RBC % /100WBC Nucleated RBCs # K/uL INR 1.15 Sodium (136-148) mmol/L Potassium (3.5-5.1) mmol/L Chloride (98-107) mmol/L Carbon Dioxide (21.0-32.0) mmol/L BUN (7.0-18.0) mg/dL Creatinine (0.8-1.3) mg/dL Est Cr Clr Drug Dosing mL/min Estimated GFR (MDRD) ml/min Glucose (74-106) mg/dL Lactic Acid 0.7 (0.4-2.0) mmol/L Calcium (8.5-10.1) mg/dL Total Bilirubin (0.2-1.0) mg/dL AST (15-37) IU/L ALT (14-63) IU/L Alkaline Phosphatase (46-116) U/L Troponin I (0.000-0.056) ng/mL C-Reactive Protein (0.00-0.90) mg/dL Total Protein (6.4-8.2) g/dL Albumin (3.4-5.0) g/dL Globulin (2.6-4.0) g/dL Albumin/Globulin Ratio (0.9-1.6) Lipase (73-393) U/L Urine Color Urine Appearance Urine pH (5.0-8.0) Ur Specific [place] (1.001-1.035) Urine Protein (NEGATIVE) mg/dL Urine Glucose (UA) (NEGATIVE) mg/dL Urine Ketones (NEGATIVE) mg/dL Urine Occult Blood (NEGATIVE) Urine Nitrite (NEGATIVE) Urine Bilirubin (NEGATIVE) Urine Urobilinogen (<2.0) EU/dL Ur Leukocyte Esterase (NEGATIVE) Urine RBC (0-2/HPF) Urine WBC (0-5/HPF) Ur Epithelial Cells (NONE-FEW) Urine Bacteria (NEGATIVE) SARS-CoV-2 RNA (LIN[place]N) (NEGATIVE) Blood Type A POSITIVE Antibody Screen NEGATIVE 03/26/21 Range/Units 22:54 WBC (4.0-11.0) K/uL RBC (4.50-5.90) M/uL Hgb (13.0-17.0) g/dL Hct (38.0-50.0) % MCV (80.0-98.0) fL MCH (27.0-32.0) pg MCHC (31.0-37.0) g/dL RDW Std Deviation (28.0-62.0) fl RDW Coeff of Tre (11.0-15.0) % Plt Count (150-400) K/uL MPV (7.40-12.00) fL Neut % (Auto) (48.0-80.0) % Lymph % (Auto) (16.0-40.0) % Franklin % (Auto) (0.0-15.0) % Eos % (Auto) (0.0-7.0) % Baso % (Auto) (0.0-1.5) % Neut # (Auto) (1.4-5.7) K/uL Lymph # (Auto) (0.6-2.4) K/uL Franklin # (Auto) (0.0-0.8) K/uL Eos # (Auto) (0.0-0.7) K/uL Baso # (Auto) (0.0-0.1) K/uL Nucleated RBC % /100WBC Nucleated RBCs # K/uL INR Sodium (136-148) mmol/L Potassium (3.5-5.1) mmol/L Chloride (98-107) mmol/L Carbon Dioxide (21.0-32.0) mmol/L BUN (7.0-18.0) mg/dL Creatinine (0.8-1.3) mg/dL Est Cr Clr Drug Dosing mL/min Estimated GFR (MDRD) ml/min Glucose (74-106) mg/dL Lactic Acid (0.4-2.0) mmol/L Calcium (8.5-10.1) mg/dL Total Bilirubin (0.2-1.0) mg/dL AST (15-37) IU/L ALT (14-63) IU/L Alkaline Phosphatase (46-116) U/L Troponin I (0.000-0.056) ng/mL C-Reactive Protein (0.00-0.90) mg/dL Total Protein (6.4-8.2) g/dL Albumin (3.4-5.0) g/dL Globulin (2.6-4.0) g/dL Albumin/Globulin Ratio (0.9-1.6) Lipase (73-393) U/L Urine Color YELLOW Urine Appearance CLEAR Urine pH 5.5 (5.0-8.0) Ur Specific Kimmell 1.020 (1.001-1.035) Urine Protein TRACE H (NEGATIVE) mg/dL Urine Glucose (UA) NEGATIVE (NEGATIVE) mg/dL Urine Ketones NEGATIVE (NEGATIVE) mg/dL Urine Occult Blood NEGATIVE (NEGATIVE) Urine Nitrite NEGATIVE (NEGATIVE) Urine Bilirubin NEGATIVE (NEGATIVE) Urine Urobilinogen 0.2 (<2.0) EU/dL Ur Leukocyte Esterase NEGATIVE (NEGATIVE) Urine RBC 0-1 (0-2/HPF) Urine WBC 0-1 (0-5/HPF) Ur Epithelial Cells RARE (NONE-FEW) Urine Bacteria FEW (NEGATIVE) SARS-CoV-2 RNA (LINCOLN) (NEGATIVE) Blood Type Antibody Screen Meds: Medications Generic Name Dose Route Start Last Admin Trade Name Shiv PRN Reason Stop Dose Admin Lactated Ringer's 1,000 mls @ 150 mls/hr 03/27/21 01:30 03/27/21 01:29 Ringers, Lactated IV 150 mls/hr ASDIRECTED DANIELITO Administration Norepinephrine Bitartrate 4 mg in 250 mls @ 7.5 mls/hr 03/27/21 02:15 03/27/21 02:40 Norepinephr-0.9% Nacl 4 Mg/250 IV 2 mcg/min TITRATE DANIELITO 7.5 mls/hr Administration Protocol 2 MCG/MIN Sodium Chloride 10 ml 03/26/21 16:15 03/26/21 17:56 Sodium Chloride 0.9% 10 Ml Syringe FLUSH 10 ml ASDIRECTED PRN Administration Keep Vein Open Sodium Chloride 2.5 ml 03/26/21 16:15 03/26/21 17:56 Sodium Chloride 0.9% 2.5 Ml Syringe FLUSH 2.5 ml ASDIRECTED PRN Administration Keep Vein Open Discontinued Medications Generic Name Dose Route Start Last Admin Trade Name Shiv PRN Reason Stop Dose Admin Hydrocortisone Sodium Succinate 100 mg 03/27/21 01:52 03/27/21 02:03 Hydrocortisone Sodium Succinate 100 Mg/2 Ml Sdv IVPUSH 03/27/21 01:53 100 mg ONETIME ONE Administration Lactated Ringer's 500 mls @ 999 mls/hr 03/26/21 16:15 03/26/21 17:48 Ringers, Lactated IV 03/26/21 16:45 999 mls/hr .BOLUS ONE Administration Lactated Ringer's 1,000 mls @ 999 mls/hr 03/26/21 18:46 03/26/21 19:22 Ringers, Lactated IV 03/26/21 19:46 999 mls/hr .BOLUS ONE Administration Sodium Chloride 1,000 mls @ 999 mls/hr 03/26/21 19:16 Normal Saline IV 03/26/21 20:16 STAT ONE Lactated Ringer's 1,000 mls @ 999 mls/hr 03/26/21 19:17 03/26/21 20:33 Ringers, Lactated IV 03/26/21 20:17 999 mls/hr .BOLUS ONE Administration Metronidazole 500 mg/ Premix 100 mls @ 100 mls/hr 03/27/21 02:40 IV 03/27/21 03:39 Q8H STA Levothyroxine Sodium 100 mcg 03/27/21 01:51 03/27/21 02:25 Levothyroxine 100 Mcg Vial IVPUSH 03/27/21 01:52 100 mcg ONETIME ONE Administration Ondansetron HCl 4 mg 03/27/21 02:00 03/27/21 02:03 Ondansetron 4 Mg/2 Ml Sdv IVPUSH 03/27/21 02:01 4 mg ONETIME ONE Administration Ondansetron HCl Confirm 03/27/21 01:58 03/27/21 02:03 Ondansetron 4 Mg/2 Ml Sdv Administered 03/27/21 01:59 Not Given Dose 4 mg .ROUTE .STK-MED ONE Vancomycin HCl 250 mg 03/26/21 16:18 03/26/21 17:56 Vancomycin 125 Mg Cap PO 03/26/21 16:19 250 mg NOW STA Administration Vancomycin HCl 500 mg 03/27/21 02:40 Vancomycin 125 Mg Cap PO 03/27/21 02:41 QID STA Departure - Departure Time of Disposition: 04:31 Sepsis Event Note (ED) - Focused Exam Vital Signs: Vital Signs Pulse Resp BP Pulse Ox 03/27/21 04:18 98 19 109/61 97 03/27/21 03:30 96 19 108/53 L 97 03/27/21 03:14 95 21 H 103/50 L 98 03/27/21 02:54 86 19 94/51 L 100 03/27/21 02:46 94 20 102/49 L 100 03/27/21 02:41 98 20 97/50 L 100 03/27/21 02:07 97 19 97/52 L 100 03/27/21 01:08 96 20 91/49 L 99 03/27/21 00:46 90 21 H 76/49 L 100 03/26/21 21:54 92 20 84/38 L 97 03/26/21 21:07 83 20 101/60 100 03/26/21 20:31 90 20 108/54 L 100 03/26/21 19:46 91 19 93/57 L 100 03/26/21 19:23 88 20 99/48 L 100 03/26/21 18:47 87 20 76/49 L 100 03/26/21 17:42 85 100 03/26/21 17:15 85 101/74 98 03/26/21 16:30 83 90/50 L 92 L - My Orders Last 24 Hours: My Active Orders 03/27/21 01:30 Lactated Ringers [Ringers, Lactated] 1,000 ml IV ASDIRECTED 03/27/21 02:15 Norepinephrine Bit/0.9 % NaCl [Norepinephr-0.9% NaCl 4 mg/250] 4 mg in 250 ml IV TITRATE - Assessment/Plan Last 24 Hours: My Active Orders 03/27/21 01:30 Lactated Ringers [Ringers, Lactated] 1,000 ml IV ASDIRECTED 03/27/21 02:15 Norepinephrine Bit/0.9 % NaCl [Norepinephr-0.9% NaCl 4 mg/250] 4 mg in 250 ml IV TITRATE
--- NOTE | 2021-03-26 16:53 | CR ---
Indication: Chest pain Technique: Chest 1 view Comparison: Chest x-ray 03/09/2021 Findings/Impression: Cardiovascular and mediastinum: Normal heart size with aortic tortuosity and atherosclerotic calcification. Lungs and pleural space: Trace left pleural effusion similar to the prior examination. Linear opacity at the left upper lung appears unchanged. No focal consolidation on the right. Bones and soft tissues: Left internal jugular line with tip at the cavoatrial junction. Status post left reverse shoulder replacement. Chronic right proximal humeral deformity redemonstrated. Dictated by Omar Bird MD @ 03/26/2021 4:51:26 PM (Electronically Signed)
--- NOTE | 2021-03-26 18:07 | CT ---
INDICATION: Abdominal pain TECHNIQUE: CT abdomen and pelvis without contrast. COMPARISON: None FINDINGS: Lower chest: Unremarkable. Liver: Unremarkable. Spleen: Unremarkable. Pancreas: Unremarkable. Gallbladder and bile ducts: Unremarkable. Kidneys: No ureteral stones and no hydronephrosis. The left kidney is absent. Adrenal glands: Unremarkable. GI tract: Diffuse colonic thickening consistent with colitis. Normal small bowel and appendix Vascular structures: IVC filter in appropriate position. Calcified plaque involving normal caliber abdominal aorta. Lymph nodes: Unremarkable. Miscellaneous: Unremarkable. No free air or significant free fluid. Pelvic Organs: Unremarkable. Bones: Left hip arthroplasty with extensive adjacent heterotopic bone formation. Extensive multilevel degenerative changes. Multiple chronic appearing compression deformities thoracolumbar spine. IMPRESSION: Diffuse colonic fecal retention consistent with nonspecific colitis. Please note that all CT scans at this facility use dose modulation, iterative reconstruction, and/or weight-based dosing when appropriate to reduce radiation dose to as low as reasonably achievable. Dictated by Juanpablo Gunderson MD @ 03/26/2021 6:06:32 PM (Electronically Signed)
[2021-03-26 18:14] LABS: BLOOD UREA NITROGEN,BUN 33 mg/dL (7.0-18.0); CARBON DIOXIDE,CO2 38.2 mmol/L (21.0-32.0); CHLORIDE,CL 96 mmol/L (98-107); GLUCOSE RANDOM 86 mg/dL (74-106); LIPASE 79 U/L (73-393); POTASSIUM,K 3.6 mmol/L (3.5-5.1); SODIUM,NA 137 mmol/L (136-148)
[2021-03-26] MEDS ORDERED: Lactated Ringers 1,000 ML IV ONE ×2 (18:46→19:17)
[2021-03-26] MEDS ORDERED: Sodium Chloride 0.9% 1,000 ML IV ONE (19:16)
[2021-03-27] MEDS ORDERED: Lactated Ringers 1,000 ML IV SCH (01:30)
[2021-03-27] MEDS ORDERED: Levothyroxine 100 MCG Vial IVPUSH ONE (01:51)
[2021-03-27] MEDS ORDERED: Hydrocortisone Sodium Succinate 100 MG/2 ML SDV IVPUSH ONE (01:52)
[2021-03-27] MEDS ORDERED: Ondansetron 4 MG/2 ML SDV ONE (01:58)
[2021-03-27] MEDS ORDERED: Ondansetron 4 MG/2 ML SDV IVPUSH ONE (02:00)
--- NOTE | 2021-03-27 02:18 | CT ---
Indication: Osteomyelitis. Evaluate for abscess. Technique: Spiral CT examination of the right shoulder is performed without contrast enhancement to obtain 1 and 2.5 millimeter thick axial and 2 millimeter thick sagittal and coronal sections. Please note that all CT scans at this facility use dose modulation, iterative reconstruction, and/or weight-based dosing when appropriate to reduce radiation dose to as low as reasonably achievable. Comparison: Shoulder radiograph from 03/08/2021 and chest radiograph from 03/26/2021. CT of the right shoulder from 02/01/2021 Findings: Again seen is complete erosion of the right humeral head with prominent superior subluxation of the remaining humerus. Again seen is moderate soft tissue swelling and fluid around the neck of the humerus in the joint capsule. The glenoid labrum is again seen to be moderately eroded and thinned, with absence of the articular surface. There is no change in mild ossification of the joint capsule lateral to the acromion. Again seen is mild heterotopic ossification of the inferior joint capsule around the proximal humeral shaft and inferior and anterior to the glenoid. The fluid collection located within the muscle belly of the deltoid has decreased in size, now measuring 2.8 x 2.0 x 2.4 centimeters, previously 7.5 x 5.5 x 4 centimeters. This is consistent with a resolving hematoma or abscess. No additional soft tissue mass or fluid collection is seen. There is no change in mild pleural thickening in the right apex. There is prominent bronchiectasis in the superior segment of the right lower lobe, and throughout the inferior portion of the visualized left upper lobe. Impression: Decrease in size of the fluid collection located within the muscle belly of the deltoid, now measuring 2.8 x 2.0 x 2.4 centimeters, consistent with resolving hematoma versus abscess. Stable appearance of complete erosion of the humeral head with prominent superior subluxation of the remaining humeral neck. Stable moderate shoulder joint effusion with erosion of the glenoid. Prominent bronchiectasis in the superior segment of the right lower lobe and in the inferior portion of the left upper lobe. Please note that all CT scans at this facility use dose modulation, iterative reconstruction, and/or weight-based dosing when appropriate to reduce radiation dose to as low as reasonably achievable. Dictated by Mike Cifuentes MD @ 03/27/2021 2:18:18 AM (Electronically Signed)
[2021-03-27] MEDS ORDERED: metroNIDAZOLE/Normal Saline 500 MG in Premix Bag 1 BAG IV STA (02:40)
[2021-03-27] MEDS ORDERED: Vancomycin 125 MG Cap PO STA (02:40)
[2021-03-27 04:19] VITALS: BP 109/61; PULSE 98
== END 2021-03-27 05:05 ==
LOC: MW.ED 15:46
DX: K52.9 Noninfective gastroenteritis and colitis, unspecified (principal); M86.9 Osteomyelitis, unspecified; D64.9 Anemia, unspecified; I48.91 Unspecified atrial fibrillation; I11.0 Hypertensive heart disease with heart failure; I50.9 Heart failure, unspecified; I25.2 Old myocardial infarction; J44.9 Chronic obstructive pulmonary disease, unspecified; Z86.73 Personal history of transient ischemic attack (TIA), and cerebral infarction without residual deficits; Z88.1 Allergy status to other antibiotic agents; Z88.8 Allergy status to other drugs, medicaments and biological substances; Z79.899 Other long term (current) drug therapy; Z20.822 Contact with and (suspected) exposure to COVID-19
CPT/HCPCS: 36415; 51702; 71045; 73200; 74176; 80053; 81001; 83605; 83690; 84484; 85025; 85610; 86140; 86850; 86900; 86901; 87040; 87324; 96365; 96366; 96367; 96375; 99285; A9270; J1720; J2405; J3490; J7120; U0002

== ENCOUNTER 2021-03-28 21:29 | Inpatient (IN) | payer MEDICARE, OTHER ==
--- NOTE | 2021-03-28 23:24 | PCM.HP.2 ---
H&P History of Present Illness - General Date of Service: 03/28/21 Admit Problem/Dx: Admission Diagnosis/Problem Admission Diagnosis/Problem Clostridium difficile infection - History of Present Illness Initial Comments - Free Text/Narative: 61 yo male with pmh of ABPA, bronchietasis, a.fib, and right shoulder oste omyelitis who was receiving IV Rocephin at [facility] on 03/26/21 with complaints of fevers, nausea and diarrhea. He was seen in the ED and noted to have low blood pressures. CT scan of the abdomen reported nonspecific colitis. Right shoulder x-ray reported decrease in fluid collection. His stool was positive for C.diff. His last C.diff infection was 6 months ago. His Hgb was 7.5 but guiac was negative. His anticagulation was discontinued due to concerns of GI bleed during his hospitalization for sepsis, [facility]IVAN, septic arthritis in [place] last week. His blood pressure did not rise with fluids so he was started on levophed. As there was no ICU beds in [place] he was transferred to closest ICU bed which was [place]. On arrival he was no longer needing levophed. His Hgb was 6.4 and he recieved 1 unit of pRBC, oral VAncomycin and IV ceftriaxone. The intesivist talked with orthopedic surgeon who did not fel aspiration of shoulder was indicated as it had been done 03/04/21 at [facility] and grew MSSE. PAtient was then transferred back to [place]. He reports his fever has resolved. He does have some nausea and stomach cramps but is feeling much better. - Related Data Allergies/Adverse Reactions: Allergies Allergy/AdvReac Type Severity Reaction Status Date / Time itraconazole [From Sporanox] Allergy Unknown Confusion Verified 03/28/21 21:45 levofloxacin [From Levaquin] Allergy Unknown Other Verified 03/28/21 21:45 meropenem Allergy Swelling Verified 03/28/21 21:45 Home Medications: Home Meds Fluticasone/Vilanterol [Breo Ellipta 200-25 MCG Inhalation Kit] 1 puff INH DAILY 08/10/20 [History] HYDROmorphone [Dilaudid] 4 mg PO Q4H PRN 08/10/20 [History] Testosterone 300 mg TD DAILY 08/10/20 [History] Tiotropium [place] [Spiriva Respimat] 2 puff INH DAILY 09/14/20 [History] Gabapentin [Neurontin] 800 mg PO QID tablet 09/16/20 [Rx] Omeprazole 40 mg PO ACBREAKFAST 11/21/20 [History] Acetaminophen/oxyCODONE [Percocet 325-5 MG] 1 - 2 each PO Q4HR PRN #14 tab 03/08/21 [Rx] Amiodarone [Cordarone] 200 mg PO DAILY 03/28/21 [History] Calcium Carbonate/Vitamin D3 [Oyster Shell 500-Vit D3 200 Tb] 1 tab PO BID 03/28/21 [History] Doxycycline [Doxycycline Hyclate] 100 mg PO BID 03/28/21 [History] Ondansetron [Zofran] 8 mg PO TID PRN 03/28/21 [History] Simethicone 80 mg PO QID PRN 03/28/21 [History] Vancomycin [First-Vancomycin 25 Compounding Kit] 500 mg PO QID 03/28/21 [History] Past Medical History HEENT History: Reports: Cataract Other HEENT History: dental fillings due to caries; recent tooth fracture Cardiovascular History: Reports: Afib, Cardiomyopathy, Heart Failure, Hypertension, NH Other Cardiovascular History: Heart attack April 2010, Pulmonary embolism 2009 Respiratory History: Reports: Asthma, Bronchitis, Recurrent, COPD, PE, Pneumonia, Recurrent, Other (See Below) Other Respiratory History: Chronic pulmonary aspergillosis, 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 on 02 at home - 2liters at daytime, 4 liters at bedtimeper nasal cannula Gastrointestinal History: Reports: Diverticulosis, GERD, Other (See Below) Other Gastrointestinal History: diverticulitis, peristalisis diagnosed with egd 2 weeks ago Genitourinary History: Reports: BPH, Renal Calculus, Renal Disease, UTI, Recurrent Other Genitourinary History: Left nephrectomy Musculoskeletal History: Reports: Arthritis, Back Pain, Chronic, Gout, Osteoporosis, RA, Other (See Below) Other Musculoskeletal History: lumbar fracture, rotator cap syndrome, bilateral feet fracture, osteomyelitis; hammer toes, elbow strain. bilateral achilles tendon ruptures and repair., hip replacement, removal of left humerous, reverse right shoulder replacement Neurological History: Reports: Neuropathy, Peripheral, TIA Other Neuro History: TIA 1999 Psychiatric History: Reports: Anxiety, Depression Endocrine/Metabolic History: Reports: Osteoporosis Hematologic History: Reports: Anticoagulation Therapy Immunologic History: Reports: Immunosuppression Oncologic (Cancer) History: Reports: Other (See Below) Other Oncologic History: melanoma of the right eye Dermatologic History: Reports: Cellulitis, Melanoma, Other (See Below) Other Dermatologic History: melanoma in the eye, 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 No explantation--they apparently just treated him with IV abx for months. - Past Surgical History Head Surgeries/Procedures: Reports: None HEENT Surgical History: Reports: Cataract Surgery Cardiovascular Surgical History: Reports: None Respiratory Surgical History: Reports: Lung Resection Other Respiratory Surgeries/Procedures: intubated last Feb 2018 and transfered to [place] Surgical History: Reports: Colonoscopy Other GI Surgeries/Procedures: colostomy and reversal 20yrs ago Male Surgical History: Reports: None Endocrine Surgical History: Reports: None Neurological Surgical History: Reports: None Musculoskeletal Surgical History: Reports: Amputation, Shoulder Surgery, Other (See Below) Other Musculoskeletal Surgeries/Procedures:: L shoulder and left hip replacementsurgery. 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 Oncologic Surgical History: Reports: None Dermatological Surgical History: Reports: None Social & Family History - Family History Family Medical History: No Pertinent Family History - Tobacco Use Tobacco Use Status *Q: Never Tobacco User Second Hand Smoke Exposure: No - Caffeine Use Caffeine Use: Reports: Coffee Other Caffeine Use: occasionally - Recreational Drug Use Recreational Drug Use: No - Living Situation & Occupation Living situation: Reports: Single, with Family (sons) Occupation: Disabled H&P Review of Systems - Review of Systems: Review Of Systems: Comprehensive ROS is negative, except as noted in HPI. Exam - Exam Exam: See Below - Vital Signs Vital Signs: Last Vital Signs Temp 36.7 C 03/28/21 21:30 Pulse 85 03/28/21 21:30 Resp 19 03/28/21 21:30 BP 109/61 03/28/21 21:30 Pulse Ox 97 03/28/21 21:30 Weight: 71.486 kg - Exam General: Alert, Oriented HEENT: Mucosa Moist & [place] Lungs: Clear to Auscultation, Normal Respiratory Effort Cardiovascular: Regular Rate, Regular Rhythm GI/Abdominal Exam: Normal Bowel Sounds, Soft, Non-Tender Extremities: Non-Tender, No Pedal Edema Skin: Warm, Dry, Intact Neurological: No: Focal Deficit - Patient Data Result Diagrams: 03/29/21 06:35 03/29/21 06:35 Sepsis Event Note - Focused Exam Vital Signs: Vital Signs Temp Pulse Resp BP Pulse Ox 03/28/21 21:30 36.7 C 85 19 109/61 97 Problem List Initiated/Reviewed/Updated: Yes Orders Last 24hrs: Active Orders 24 hr Category Date Time Status Patient Status [ADT] Routine ADT 03/28/21 23:15 Ordered Antiembolic Devices [RC] PER UNIT ROUTINE Care 03/28/21 23:17 Ordered Oxygen Therapy [RC] PRN Care 03/28/21 23:15 Ordered Up ad Jaja [RC] ASDIRECTED Care 03/28/21 23:15 Ordered VTE/DVT Education [RC] PER UNIT ROUTINE Care 03/28/21 23:15 Ordered Vital Signs [RC] Q4H Care 03/28/21 23:15 Ordered PT Evaluation and Treatment [CONS] Routine Cons 03/28/21 23:15 Ordered Regular Diet [DIET] Diet 03/28/21 Breakfast Ordered CBC WITH AUTO DIFF [HEME] AM Lab 03/29/21 05:11 Ordered COMPREHENSIVE METABOLIC PN,CMP [CHEM] AM Lab 03/29/21 05:11 Ordered Enoxaparin [Lovenox] Med 03/29/21 09:00 Ordered 40 mg SUBCUT Q24H Sequential Compression Device [OM.PC] Per Unit Routine Oth 03/28/21 23:16 Ordered Resuscitation Status Routine Resus Stat 03/28/21 23:15 Ordered Assessment/Plan Comment:: 61 yo male with sepsis from C.diff infection C.diff: oral vancomycin MSSE osteomyolitis of shoulder: Rocephin Anemia: s/p 1 unit pRBC, will continue to trend Hgb a.fib: on amiodarone, anticoagultation stopped due to concerns of bleed Chronic pain: on dilaudid
[2021-03-29] MEDS: Gabapentin 800 MG Tab PO SCH ×5 (00:32→23:52)
[2021-03-29] MEDS: Vancomycin 25 MG/ML Compounding Kit PO SCH ×5 (00:57→23:52)
[2021-03-29] MEDS: HYDROmorphone 2 MG Tab PO PRN ×6 (00:58→23:55)
[2021-03-29] MEDS: Ondansetron 4 MG/2 ML SDV IVPUSH PRN ×2 (04:47→11:17)
[2021-03-29] MEDS: Omeprazole 20 MG Cap.CR PO SCH (06:59)
[2021-03-29 07:40] LABS: CARBON DIOXIDE,CO2 37.7 mmol/L (21.0-32.0); POTASSIUM,K 3.4 mmol/L (3.5-5.1)
[2021-03-29] MEDS: Amiodarone 200 MG Tab PO SCH (08:30)
[2021-03-29] MEDS ORDERED: Enoxaparin 40 MG/0.4 ML Syringe SUBCUT SCH (09:00)
[2021-03-29] MEDS ORDERED: cefTRIAXone 1 GM in Sodium Chloride 0.9% 50 ML IV SCH ×2 (10:00→14:00)
--- NOTE | 2021-03-29 10:10 | PCM.PN ---
- General Info Date of Service: 03/29/21 - Review of Systems Systems Review Comment:: reports loose stools, some abdominal cramping - Patient Data Vitals - Most Recent: Last Vital Signs Temp 37.1 C 03/29/21 08:27 Pulse 113 H 03/29/21 08:27 Resp 18 03/29/21 08:27 BP 118/73 03/29/21 08:27 Pulse Ox 95 03/29/21 08:27 Weight - Most Recent: 71.486 kg I&O - Last 24 Hours: Intake & Output 03/28/21 03/29/21 03/29/21 22:59 06:59 14:59 Intake Total 350 Output Total 450 Balance -100 Lab Results Last 24 Hours: Laboratory Results - last 24 hr 03/29/21 03/29/21 Range/Units 06:35 06:35 WBC 10.03 (4.0-11.0) K/uL RBC 3.38 L (4.50-5.90) M/uL Hgb 8.4 L (13.0-17.0) g/dL Hct 28.3 L (38.0-50.0) % MCV 83.7 (80.0-98.0) fL MCH 24.9 L (27.0-32.0) pg MCHC 29.7 L (31.0-37.0) g/dL RDW Std Deviation 58.1 (28.0-62.0) fl RDW Coeff of Tre 19 H (11.0-15.0) % Plt Count 201 (150-400) K/uL MPV 9.80 (7.40-12.00) fL Neut % (Auto) 82.1 H (48.0-80.0) % Lymph % (Auto) 10.0 L (16.0-40.0) % [place] % (Auto) 7.6 (0.0-15.0) % Eos % (Auto) 0.3 (0.0-7.0) % Baso % (Auto) 0.0 (0.0-1.5) % Neut # (Auto) 8.2 H (1.4-5.7) K/uL Lymph # (Auto) 1.0 (0.6-2.4) K/uL [place] # (Auto) 0.8 (0.0-0.8) K/uL Eos # (Auto) 0.0 (0.0-0.7) K/uL Baso # (Auto) 0.0 (0.0-0.1) K/uL Nucleated RBC % 0.4 /100WBC Nucleated RBCs # 0 K/uL Sodium 138 (136-148) mmol/L Potassium 3.4 L (3.5-5.1) mmol/L Chloride 98 (98-107) mmol/L Carbon Dioxide 37.7 H (21.0-32.0) mmol/L BUN 21 H (7.0-18.0) mg/dL Creatinine 1.7 H (0.8-1.3) mg/dL Est Cr Clr Drug Dosing 39.69 mL/min Estimated GFR (MDRD) 41.2 ml/min Glucose 90 (74-106) mg/dL Calcium 7.1 L (8.5-10.1) mg/dL Total Bilirubin 0.2 (0.2-1.0) mg/dL AST 14 L (15-37) IU/L ALT 7 L (14-63) IU/L Alkaline Phosphatase 57 (46-116) U/L Total Protein 5.6 L (6.4-8.2) g/dL Albumin 1.5 L (3.4-5.0) g/dL Globulin 4.1 H (2.6-4.0) g/dL Albumin/Globulin Ratio 0.4 L (0.9-1.6) Med Orders - Current: Current Medications Amiodarone HCl (Amiodarone 200 Mg Tab) 200 mg PO DAILY [facility] Last Admin: 03/29/21 08:30 Dose: 200 mg Documented by: Gabapentin (Gabapentin 800 Mg Tab) 800 mg PO QID [facility] Last Admin: 03/29/21 05:16 Dose: 800 mg Documented by: Hydromorphone HCl (Hydromorphone 2 Mg Tab) 4 mg PO Q4H PRN PRN Reason: Pain Last Admin: 03/29/21 09:35 Dose: 4 mg Documented by: Ceftriaxone Sodium/Dextrose (Rocephin In Dextrose,Iso-Osm 1 Gm/50 Ml) 50 mls @ 100 mls/hr IV Q24H [facility] Omeprazole (Omeprazole 20 Mg Cap.Cr) 40 mg PO ACBREAKFAST [facility] Last Admin: 03/29/21 06:59 Dose: 40 mg Documented by: Ondansetron HCl (Ondansetron 4 Mg/2 Ml Sdv) 4 mg IVPUSH Q6H PRN PRN Reason: Nausea/Vomiting Last Admin: 03/29/21 04:47 Dose: 4 mg Documented by: Patient's Own MedicationSpiriva Respimat 0 each INH DAILY [facility] Fluticasone/Vilanterol [Breo Ellipta 200-25 Mcg Inhalatio 1 each INH DAILY [facility] Vancomycin HCl (Vancomycin 25 Mg/Ml Compounding Kit) 125 mg PO QID [facility] Last Admin: 03/29/21 05:15 Dose: 125 mg Documented by: Discontinued Medications Enoxaparin Sodium (Enoxaparin 40 Mg/0.4 Ml Syringe) 40 mg SUBCUT Q24H [facility] - Exam General: Alert, Oriented Neck: Supple Lungs: Clear to Auscultation, Normal Respiratory Effort Cardiovascular: Regular Rate, Regular Rhythm GI/Abdominal Exam: Normal Bowel Sounds, Soft, Non-Tender Extremities: Non-Tender, No Pedal Edema Skin: Warm, Dry, Intact Neurological: No New Focal Deficit - Patient Data Lab Results Last 24 hrs: Laboratory Results - last 24 hr 03/29/21 03/29/21 Range/Units 06:35 06:35 WBC 10.03 (4.0-11.0) K/uL RBC 3.38 L (4.50-5.90) M/uL Hgb 8.4 L (13.0-17.0) g/dL Hct 28.3 L (38.0-50.0) % MCV 83.7 (80.0-98.0) fL MCH 24.9 L (27.0-32.0) pg MCHC 29.7 L (31.0-37.0) g/dL RDW Std Deviation 58.1 (28.0-62.0) fl RDW Coeff of Tre 19 H (11.0-15.0) % Plt Count 201 (150-400) K/uL MPV 9.80 (7.40-12.00) fL Neut % (Auto) 82.1 H (48.0-80.0) % Lymph % (Auto) 10.0 L (16.0-40.0) % [place] % (Auto) 7.6 (0.0-15.0) % Eos % (Auto) 0.3 (0.0-7.0) % Baso % (Auto) 0.0 (0.0-1.5) % Neut # (Auto) 8.2 H (1.4-5.7) K/uL Lymph # (Auto) 1.0 (0.6-2.4) K/uL [place] # (Auto) 0.8 (0.0-0.8) K/uL Eos # (Auto) 0.0 (0.0-0.7) K/uL Baso # (Auto) 0.0 (0.0-0.1) K/uL Nucleated RBC % 0.4 /100WBC Nucleated RBCs # 0 K/uL Sodium 138 (136-148) mmol/L Potassium 3.4 L (3.5-5.1) mmol/L Chloride 98 (98-107) mmol/L Carbon Dioxide 37.7 H (21.0-32.0) mmol/L BUN 21 H (7.0-18.0) mg/dL Creatinine 1.7 H (0.8-1.3) mg/dL Est Cr Clr Drug Dosing 39.69 mL/min Estimated GFR (MDRD) 41.2 ml/min Glucose 90 (74-106) mg/dL Calcium 7.1 L (8.5-10.1) mg/dL Total Bilirubin 0.2 (0.2-1.0) mg/dL AST 14 L (15-37) IU/L ALT 7 L (14-63) IU/L Alkaline Phosphatase 57 (46-116) U/L Total Protein 5.6 L (6.4-8.2) g/dL Albumin 1.5 L (3.4-5.0) g/dL Globulin 4.1 H (2.6-4.0) g/dL Albumin/Globulin Ratio 0.4 L (0.9-1.6) Result Diagrams: 03/29/21 06:35 03/29/21 06:35 Sepsis Event Note - Evaluation Sepsis Screening Result: No Definite Risk - Focused Exam Vital Signs: Vital Signs Temp Pulse Resp BP Pulse Ox 03/29/21 08:27 37.1 C 113 H 18 118/73 95 03/29/21 04:12 36.9 C 89 18 115/69 97 03/29/21 01:06 37.0 C 89 20 101/64 99 - Problem List & Annotations (1) C. difficile colitis SNOMED Code(s): 195390617 Code(s): A04.72 - ENTEROCOLITIS D/T CLOSTRIDIUM DIFFICILE, NOT SPCF RECUR Status: Acute Current Visit: Yes (2) Osteomyelitis SNOMED Code(s): 80882998 Code(s): M86.9 - OSTEOMYELITIS, UNSPECIFIED Status: Acute Current Visit: Yes (3) CKD (chronic kidney disease) SNOMED Code(s): 760213093 Code(s): N18.9 - CHRONIC KIDNEY DISEASE, UNSPECIFIED Status: Chronic Priority: High Current Visit: Yes Qualifiers: Chronic kidney disease stage: stage 3 (moderate) (4) Chronic renal insufficiency SNOMED Code(s): 971501266 Code(s): N18.9 - CHRONIC KIDNEY DISEASE, UNSPECIFIED Status: Chronic Priority: High Current Visit: Yes Qualifiers: Chronic kidney disease stage: stage 3 (moderate) - Problem List Review Problem List Initiated/Reviewed/Updated: Yes - My Orders Last 24 Hours: My Active Orders 03/28/21 23:15 Patient Status [ADT] Routine Oxygen Therapy [RC] PRN Up ad Jaja [RC] ASDIRECTED VTE/DVT Education [RC] PER UNIT ROUTINE Vital Signs [RC] Q4H PT Evaluation and Treatment [CONS] Routine Resuscitation Status Routine 03/28/21 23:16 Sequential Compression Device [OM.PC] Per Unit Routine 03/28/21 23:17 Antiembolic Devices [RC] PER UNIT ROUTINE 03/28/21 23:31 HYDROmorphone [Dilaudid] 4 mg PO Q4H PRN 03/29/21 00:00 Gabapentin [Neurontin] 800 mg PO QID Vancomycin [First-Vancomycin 25 Compounding Kit] 125 mg PO QID 03/29/21 04:35 Ondansetron [Zofran] 4 mg IVPUSH Q6H PRN 03/29/21 07:30 Omeprazole 40 mg PO ACBREAKFAST 03/29/21 09:00 Amiodarone [Cordarone] 200 mg PO DAILY Patient's Own Medication [Ptom] 0 each INH DAILY 03/29/21 10:00 Patient's Own Medication [Ptom] 1 each INH DAILY 03/29/21 10:15 predniSONE 20 mg PO DAILY 03/29/21 14:00 cefTRIAXone [Rocephin in Dextrose,Iso-Osm 1 GM/50 ML] 50 ml IV Q24H - Plan Plan:: 61 yo male with sepsis from C.diff infection C.diff: continue oral vancomycin MSSE osteomyelitis of shoulder: Rocephin Anemia: s/p 1 unit pRBC, will continue to trend Hgb a.fib: on amiodarone, anticoagultation stopped due to concerns of recent GI bleed Chronic pain: on dilaudid ABPA: on daily prednisone
[2021-03-29] MEDS: SPIRIVA RESPIMAT INH SCH (10:23)
[2021-03-29] MEDS: predniSONE 20 MG Tab PO SCH (10:23)
[2021-03-29] MEDS: FLUTICASONE INH SCH (14:04)
[2021-03-29] MEDS: VILANTEROL INH SCH (14:04)
[2021-03-30] MEDS: Omeprazole 20 MG Cap.CR PO SCH ×2 (05:58→06:34)
[2021-03-30] MEDS: Vancomycin 25 MG/ML Compounding Kit PO SCH ×4 (05:58→23:27)
[2021-03-30] MEDS: Gabapentin 800 MG Tab PO SCH ×4 (05:59→23:27)
[2021-03-30] MEDS: HYDROmorphone 2 MG Tab PO PRN ×3 (05:59→19:41)
[2021-03-30] MEDS: Ondansetron 4 MG/2 ML SDV IVPUSH PRN (06:01)
[2021-03-30 07:22] LABS: CARBON DIOXIDE,CO2 35.4 mmol/L (21.0-32.0); POTASSIUM,K 3.7 mmol/L (3.5-5.1)
[2021-03-30] MEDS: predniSONE 20 MG Tab PO SCH (09:50)
[2021-03-30] MEDS: Amiodarone 200 MG Tab PO SCH (09:50)
[2021-03-30] MEDS: SPIRIVA RESPIMAT INH SCH (09:53)
[2021-03-30] MEDS: FLUTICASONE INH SCH (10:04)
[2021-03-30] MEDS: VILANTEROL INH SCH (10:04)
[2021-03-30] MEDS: TIOTROPIUM BROMIDE INH SCH (10:06)
--- NOTE | 2021-03-30 10:50 | PCM.PN ---
- General Info Date of Service: 03/30/21 - Review of Systems Systems Review Comment:: patient reports subjective fevers and chills last night with abdominal cramping, diarrhea - Patient Data Vitals - Most Recent: Last Vital Signs Temp 36.9 C 03/30/21 08:00 Pulse 113 H 03/30/21 08:00 Resp 16 03/30/21 08:00 BP 110/69 03/30/21 08:00 Pulse Ox 88 L 03/30/21 08:00 Weight - Most Recent: 71.486 kg I&O - Last 24 Hours: Intake & Output 03/29/21 03/30/21 03/30/21 22:59 06:59 14:59 Intake Total 900 300 Output Total 560 250 Balance 340 50 Lab Results Last 24 Hours: Laboratory Results - last 24 hr 03/30/21 03/30/21 Range/Units 06:22 06:22 WBC 14.62 H (4.0-11.0) K/uL RBC 3.34 L (4.50-5.90) M/uL Hgb 8.2 L (13.0-17.0) g/dL Hct 28.1 L (38.0-50.0) % MCV 84.1 (80.0-98.0) fL MCH 24.6 L (27.0-32.0) pg MCHC 29.2 L (31.0-37.0) g/dL RDW Std Deviation 59.2 (28.0-62.0) fl RDW Coeff of Tre 19 H (11.0-15.0) % Plt Count 191 (150-400) K/uL MPV 9.90 (7.40-12.00) fL Neut % (Auto) 80.5 H (48.0-80.0) % Lymph % (Auto) 10.5 L (16.0-40.0) % [place] % (Auto) 8.8 (0.0-15.0) % Eos % (Auto) 0.1 (0.0-7.0) % Baso % (Auto) 0.1 (0.0-1.5) % Neut # (Auto) 11.8 H (1.4-5.7) K/uL Lymph # (Auto) 1.5 (0.6-2.4) K/uL [place] # (Auto) 1.3 H (0.0-0.8) K/uL Eos # (Auto) 0.0 (0.0-0.7) K/uL Baso # (Auto) 0.0 (0.0-0.1) K/uL Nucleated RBC % 0.0 /100WBC Nucleated RBCs # 0 K/uL Sodium 135 L (136-148) mmol/L Potassium 3.7 (3.5-5.1) mmol/L Chloride 97 L (98-107) mmol/L Carbon Dioxide 35.4 H (21.0-32.0) mmol/L BUN 24 H (7.0-18.0) mg/dL Creatinine 2.5 H (0.8-1.3) mg/dL Est Cr Clr Drug Dosing 26.99 mL/min Estimated GFR (MDRD) 26.4 ml/min Glucose 96 (74-106) mg/dL Calcium 7.0 L (8.5-10.1) mg/dL Med Orders - Current: Current Medications Amiodarone HCl (Amiodarone 200 Mg Tab) 200 mg PO DAILY [facility] Last Admin: 03/30/21 09:50 Dose: 200 mg Documented by: Gabapentin (Gabapentin 800 Mg Tab) 800 mg PO QID [facility] Last Admin: 03/30/21 05:59 Dose: 800 mg Documented by: Hydromorphone HCl (Hydromorphone 2 Mg Tab) 4 mg PO Q4H PRN PRN Reason: Pain Last Admin: 03/30/21 05:59 Dose: 4 mg Documented by: Ceftriaxone Sodium/Dextrose (Rocephin In Dextrose,Iso-Osm 1 Gm/50 Ml) 50 mls @ 100 mls/hr IV Q24H [facility] Last Admin: 03/29/21 13:52 Dose: 100 mls/hr Documented by: Omeprazole (Omeprazole 20 Mg Cap.Cr) 40 mg PO ACBREAKFAST [facility] Last Admin: 03/30/21 06:34 Dose: Not Given Documented by: Ondansetron HCl (Ondansetron 4 Mg/2 Ml Sdv) 4 mg IVPUSH Q6H PRN PRN Reason: Nausea/Vomiting Last Admin: 03/30/21 06:01 Dose: 4 mg Documented by: Fluticasone/Vilanterol [Breo Ellipta 200-25 Mcg Inhalation Kit] 1 each INH DAILY [facility] Last Admin: 03/30/21 10:04 Dose: 1 each Documented by: Tiotropium [place] [ Spiriva Respimat] 1. 25 Mcg/Actuation 2 each INH DAILY [facility] Last Admin: 03/30/21 10:06 Dose: Not Given Documented by: Prednisone (Prednisone 20 Mg Tab) 20 mg PO DAILY [facility] Last Admin: 03/30/21 09:50 Dose: 20 mg Documented by: Vancomycin HCl (Vancomycin 25 Mg/Ml Compounding Kit) 125 mg PO QID [facility] Last Admin: 03/30/21 05:58 Dose: 125 mg Documented by: Discontinued Medications Enoxaparin Sodium (Enoxaparin 40 Mg/0.4 Ml Syringe) 40 mg SUBCUT Q24H [facility] Patient's Own MedicationSpiriva Respimat 0 each INH DAILY [facility] Last Admin: 03/30/21 09:53 Dose: 1 each Documented by: - Exam General: Alert, Oriented Neck: Supple Lungs: Clear to Auscultation, Normal Respiratory Effort Cardiovascular: Regular Rate, Regular Rhythm GI/Abdominal Exam: Normal Bowel Sounds, Soft, Non-Tender Extremities: Non-Tender, No Pedal Edema Skin: Warm, Dry, Intact Neurological: No New Focal Deficit - Patient Data Lab Results Last 24 hrs: Laboratory Results - last 24 hr 03/30/21 03/30/21 Range/Units 06:22 06:22 WBC 14.62 H (4.0-11.0) K/uL RBC 3.34 L (4.50-5.90) M/uL Hgb 8.2 L (13.0-17.0) g/dL Hct 28.1 L (38.0-50.0) % MCV 84.1 (80.0-98.0) fL MCH 24.6 L (27.0-32.0) pg MCHC 29.2 L (31.0-37.0) g/dL RDW Std Deviation 59.2 (28.0-62.0) fl RDW Coeff of Tre 19 H (11.0-15.0) % Plt Count 191 (150-400) K/uL MPV 9.90 (7.40-12.00) fL Neut % (Auto) 80.5 H (48.0-80.0) % Lymph % (Auto) 10.5 L (16.0-40.0) % [place] % (Auto) 8.8 (0.0-15.0) % Eos % (Auto) 0.1 (0.0-7.0) % Baso % (Auto) 0.1 (0.0-1.5) % Neut # (Auto) 11.8 H (1.4-5.7) K/uL Lymph # (Auto) 1.5 (0.6-2.4) K/uL [place] # (Auto) 1.3 H (0.0-0.8) K/uL Eos # (Auto) 0.0 (0.0-0.7) K/uL Baso # (Auto) 0.0 (0.0-0.1) K/uL Nucleated RBC % 0.0 /100WBC Nucleated RBCs # 0 K/uL Sodium 135 L (136-148) mmol/L Potassium 3.7 (3.5-5.1) mmol/L Chloride 97 L (98-107) mmol/L Carbon Dioxide 35.4 H (21.0-32.0) mmol/L BUN 24 H (7.0-18.0) mg/dL Creatinine 2.5 H (0.8-1.3) mg/dL Est Cr Clr Drug Dosing 26.99 mL/min Estimated GFR (MDRD) 26.4 ml/min Glucose 96 (74-106) mg/dL Calcium 7.0 L (8.5-10.1) mg/dL Result Diagrams: 03/30/21 06:22 03/30/21 06:22 Sepsis Event Note - Evaluation Sepsis Screening Result: No Definite Risk - Focused Exam Vital Signs: Vital Signs Temp Pulse Resp BP Pulse Ox 03/30/21 08:00 36.9 C 113 H 16 110/69 88 L 03/30/21 03:13 36.9 C 89 18 127/79 97 03/29/21 23:50 37.2 C 89 19 107/73 98 - Problem List & Annotations (1) C. difficile colitis SNOMED Code(s): 922900648 Code(s): A04.72 - ENTEROCOLITIS D/T CLOSTRIDIUM DIFFICILE, NOT SPCF RECUR Status: Acute Current Visit: Yes (2) Osteomyelitis SNOMED Code(s): 29201723 Code(s): M86.9 - OSTEOMYELITIS, UNSPECIFIED Status: Acute Current Visit: Yes (3) CKD (chronic kidney disease) SNOMED Code(s): 138315775 Code(s): N18.9 - CHRONIC KIDNEY DISEASE, UNSPECIFIED Status: Chronic Priority: High Current Visit: Yes Qualifiers: Chronic kidney disease stage: stage 3 (moderate) (4) LIVAN (acute kidney injury) SNOMED Code(s): 64597562, 42347614 Code(s): N17.9 - ACUTE KIDNEY FAILURE, UNSPECIFIED Status: Acute Current Visit: No - Problem List Review Problem List Initiated/Reviewed/Updated: Yes - My Orders Last 24 Hours: My Active Orders 03/29/21 10:00 Patient's Own Medication [Ptom] 1 each INH DAILY 03/29/21 10:15 predniSONE 20 mg PO DAILY 03/29/21 14:00 cefTRIAXone [Rocephin in Dextrose,Iso-Osm 1 GM/50 ML] 50 ml IV Q24H 03/30/21 10:05 Patient's Own Medication [Ptom] 2 each INH DAILY 03/30/21 10:46 CULTURE BLOOD [BC] Stat CULTURE BLOOD [BC] Stat Blood Culture x2 Reflex Set [OM.PC] Stat - Plan Plan:: 61 yo male with sepsis from C.diff infection C.diff: continue oral vancomycin MSSE osteomyelitis of shoulder: Rocephin, due to increasing white count will recheck blood cultures Anemia: s/p 1 unit pRBC, will continue to trend Hgb a.fib: on amiodarone, anticoagultation stopped due to concerns of bleed Chronic pain: on dilaudid
[2021-03-30] MEDS ORDERED: Sodium Chloride 0.9% 1,000 ML IV SCH (11:00)
[2021-03-31] MEDS: HYDROmorphone 2 MG Tab PO PRN ×5 (00:36→21:47)
[2021-03-31] MEDS: Vancomycin 25 MG/ML Compounding Kit PO SCH ×4 (06:03→23:36)
[2021-03-31] MEDS: Gabapentin 800 MG Tab PO SCH ×4 (06:52→23:36)
[2021-03-31] MEDS: Omeprazole 20 MG Cap.CR PO SCH (06:52)
[2021-03-31 07:45] LABS: CARBON DIOXIDE,CO2 32.1 mmol/L (21.0-32.0)
--- NOTE | 2021-03-31 08:32 | PCM.PN ---
- General Info Date of Service: 03/31/21 - Review of Systems Systems Review Comment:: feeling better, three loose stools yesterday, reports generalized fatigue - Patient Data Vitals - Most Recent: Last Vital Signs Temp 36.5 C 03/31/21 08:08 Pulse 101 H 03/31/21 08:08 Resp 22 H 03/31/21 08:08 BP 139/79 03/31/21 08:08 Pulse Ox 97 03/31/21 08:08 Weight - Most Recent: 71.486 kg I&O - Last 24 Hours: Intake & Output 03/30/21 03/31/21 03/31/21 22:59 06:59 14:59 Intake Total 620 600 Output Total 820 350 Balance -200 250 Lab Results Last 24 Hours: Laboratory Results - last 24 hr 03/30/21 03/31/21 03/31/21 Range/Units 14:52 06:00 06:00 WBC 13.55 H (4.0-11.0) K/uL RBC 3.10 L (4.50-5.90) M/uL Hgb 7.7 L (13.0-17.0) g/dL Hct 26.1 L (38.0-50.0) % MCV 84.2 (80.0-98.0) fL MCH 24.8 L (27.0-32.0) pg MCHC 29.5 L (31.0-37.0) g/dL RDW Std Deviation 60.2 (28.0-62.0) fl RDW Coeff of Tre 19 H (11.0-15.0) % Plt Count 171 (150-400) K/uL MPV 9.90 (7.40-12.00) fL Neut % (Auto) 80.0 (48.0-80.0) % Lymph % (Auto) 10.7 L (16.0-40.0) % [place] % (Auto) 9.1 (0.0-15.0) % Eos % (Auto) 0.1 (0.0-7.0) % Baso % (Auto) 0.1 (0.0-1.5) % Neut # (Auto) 10.9 H (1.4-5.7) K/uL Lymph # (Auto) 1.5 (0.6-2.4) K/uL [place] # (Auto) 1.2 H (0.0-0.8) K/uL Eos # (Auto) 0.0 (0.0-0.7) K/uL Baso # (Auto) 0.0 (0.0-0.1) K/uL Nucleated RBC % 0.0 /100WBC Nucleated RBCs # 0 K/uL Sodium 137 (136-148) mmol/L Potassium 4.0 (3.5-5.1) mmol/L Chloride 100 (98-107) mmol/L Carbon Dioxide 32.1 H (21.0-32.0) mmol/L BUN 25 H (7.0-18.0) mg/dL Creatinine 2.4 H (0.8-1.3) mg/dL Est Cr Clr Drug Dosing 28.12 mL/min Estimated GFR (MDRD) 27.7 ml/min Glucose 93 (74-106) mg/dL Calcium 6.5 L (8.5-10.1) mg/dL Total Bilirubin 0.2 (0.2-1.0) mg/dL AST 16 (15-37) IU/L ALT 8 L (14-63) IU/L Alkaline Phosphatase 60 (46-116) U/L Total Protein 5.1 L (6.4-8.2) g/dL Albumin 1.4 L (3.4-5.0) g/dL Globulin 3.7 (2.6-4.0) g/dL Albumin/Globulin Ratio 0.4 L (0.9-1.6) Urine Color YELLOW Urine Appearance SLT CLOUDY Urine pH 5.5 (5.0-8.0) Ur Specific [place] >= 1.030 (1.001-1.035) Urine Protein 30 H (NEGATIVE) mg/dL Urine Glucose (UA) NEGATIVE (NEGATIVE) mg/dL Urine Ketones NEGATIVE (NEGATIVE) mg/dL Urine Occult Blood TRACE-INTACT H (NEGATIVE) Urine Nitrite NEGATIVE (NEGATIVE) Urine Bilirubin NEGATIVE (NEGATIVE) Urine Urobilinogen 0.2 (<2.0) EU/dL Ur Leukocyte Esterase NEGATIVE (NEGATIVE) Urine RBC 0-1 (0-2/HPF) Urine WBC 0-1 (0-5/HPF) Ur Epithelial Cells RARE (NONE-FEW) Urine Bacteria 1+ H (NEGATIVE) Urine Yeast FEW Steve Results Last 24 Hours: Microbiology 03/30/21 12:00 Anaerobic Blood Culture - Final Blood - Venous - Lab Draw Med Orders - Current: Current Medications Amiodarone HCl (Amiodarone 200 Mg Tab) 200 mg PO DAILY [facility] Last Admin: 03/30/21 09:50 Dose: 200 mg Documented by: Gabapentin (Gabapentin 800 Mg Tab) 800 mg PO QID [facility] Last Admin: 03/31/21 06:52 Dose: 800 mg Documented by: Hydromorphone HCl (Hydromorphone 2 Mg Tab) 4 mg PO Q4H PRN PRN Reason: Pain Last Admin: 03/31/21 06:10 Dose: 4 mg Documented by: Ceftriaxone Sodium/Dextrose (Rocephin In Dextrose,Iso-Osm 1 Gm/50 Ml) 50 mls @ 100 mls/hr IV Q24H [facility] Last Admin: 03/30/21 14:22 Dose: 100 mls/hr Documented by: Omeprazole (Omeprazole 20 Mg Cap.Cr) 40 mg PO ACBREAKFAST [facility] Last Admin: 03/31/21 06:52 Dose: 40 mg Documented by: Ondansetron HCl (Ondansetron 4 Mg/2 Ml Sdv) 4 mg IVPUSH Q6H PRN PRN Reason: Nausea/Vomiting Last Admin: 03/30/21 06:01 Dose: 4 mg Documented by: Fluticasone/Vilanterol [Breo Ellipta 200-25 Mcg Inhalation Kit] 1 each INH DAILY [facility] Last Admin: 03/30/21 10:04 Dose: 1 each Documented by: Tiotropium [place] [ Spiriva Respimat] 1. 25 Mcg/Actuation 2 each INH DAILY [facility] Last Admin: 03/30/21 10:06 Dose: Not Given Documented by: Prednisone (Prednisone 20 Mg Tab) 20 mg PO DAILY [facility] Last Admin: 03/30/21 09:50 Dose: 20 mg Documented by: Vancomycin HCl (Vancomycin 25 Mg/Ml Compounding Kit) 125 mg PO QID [facility] Last Admin: 03/31/21 06:03 Dose: 125 mg Documented by: Discontinued Medications Enoxaparin Sodium (Enoxaparin 40 Mg/0.4 Ml Syringe) 40 mg SUBCUT Q24H [facility] Sodium Chloride (Normal Saline) 1,000 mls @ 125 mls/hr IV ASDIRECTED [facility] Stop: 03/30/21 18:59 Last Admin: 03/30/21 14:31 Dose: 125 mls/hr Documented by: Patient's Own MedicationSpiriva Respimat 0 each INH DAILY [facility] Last Admin: 03/30/21 09:53 Dose: 1 each Documented by: - Exam General: Alert, Oriented Neck: Supple Lungs: Clear to Auscultation, Normal Respiratory Effort Cardiovascular: Regular Rate, Regular Rhythm GI/Abdominal Exam: Soft, Non-Tender Extremities: Non-Tender, No Pedal Edema - Patient Data Lab Results Last 24 hrs: Laboratory Results - last 24 hr 03/30/21 03/31/21 03/31/21 Range/Units 14:52 06:00 06:00 WBC 13.55 H (4.0-11.0) K/uL RBC 3.10 L (4.50-5.90) M/uL Hgb 7.7 L (13.0-17.0) g/dL Hct 26.1 L (38.0-50.0) % MCV 84.2 (80.0-98.0) fL MCH 24.8 L (27.0-32.0) pg MCHC 29.5 L (31.0-37.0) g/dL RDW Std Deviation 60.2 (28.0-62.0) fl RDW Coeff of Tre 19 H (11.0-15.0) % Plt Count 171 (150-400) K/uL MPV 9.90 (7.40-12.00) fL Neut % (Auto) 80.0 (48.0-80.0) % Lymph % (Auto) 10.7 L (16.0-40.0) % [place] % (Auto) 9.1 (0.0-15.0) % Eos % (Auto) 0.1 (0.0-7.0) % Baso % (Auto) 0.1 (0.0-1.5) % Neut # (Auto) 10.9 H (1.4-5.7) K/uL Lymph # (Auto) 1.5 (0.6-2.4) K/uL [place] # (Auto) 1.2 H (0.0-0.8) K/uL Eos # (Auto) 0.0 (0.0-0.7) K/uL Baso # (Auto) 0.0 (0.0-0.1) K/uL Nucleated RBC % 0.0 /100WBC Nucleated RBCs # 0 K/uL Sodium 137 (136-148) mmol/L Potassium 4.0 (3.5-5.1) mmol/L Chloride 100 (98-107) mmol/L Carbon Dioxide 32.1 H (21.0-32.0) mmol/L BUN 25 H (7.0-18.0) mg/dL Creatinine 2.4 H (0.8-1.3) mg/dL Est Cr Clr Drug Dosing 28.12 mL/min Estimated GFR (MDRD) 27.7 ml/min Glucose 93 (74-106) mg/dL Calcium 6.5 L (8.5-10.1) mg/dL Total Bilirubin 0.2 (0.2-1.0) mg/dL AST 16 (15-37) IU/L ALT 8 L (14-63) IU/L Alkaline Phosphatase 60 (46-116) U/L Total Protein 5.1 L (6.4-8.2) g/dL Albumin 1.4 L (3.4-5.0) g/dL Globulin 3.7 (2.6-4.0) g/dL Albumin/Globulin Ratio 0.4 L (0.9-1.6) Urine Color YELLOW Urine Appearance SLT CLOUDY Urine pH 5.5 (5.0-8.0) Ur Specific [place] >= 1.030 (1.001-1.035) Urine Protein 30 H (NEGATIVE) mg/dL Urine Glucose (UA) NEGATIVE (NEGATIVE) mg/dL Urine Ketones NEGATIVE (NEGATIVE) mg/dL Urine Occult Blood TRACE-INTACT H (NEGATIVE) Urine Nitrite NEGATIVE (NEGATIVE) Urine Bilirubin NEGATIVE (NEGATIVE) Urine Urobilinogen 0.2 (<2.0) EU/dL Ur Leukocyte Esterase NEGATIVE (NEGATIVE) Urine RBC 0-1 (0-2/HPF) Urine WBC 0-1 (0-5/HPF) Ur Epithelial Cells RARE (NONE-FEW) Urine Bacteria 1+ H (NEGATIVE) Urine Yeast FEW Result Diagrams: 03/31/21 06:00 03/31/21 06:00 Steve Results Last 24 hrs: Microbiology 03/30/21 12:00 Anaerobic Blood Culture - Final Blood - Venous - Lab Draw Sepsis Event Note - Evaluation Sepsis Screening Result: Possible Sepsis Risk - Focused Exam Vital Signs: Vital Signs Temp Pulse Resp BP Pulse Ox 03/31/21 08:08 36.5 C 101 H 22 H 139/79 97 03/31/21 02:55 36.7 C 89 20 124/76 94 L 03/30/21 23:26 36.2 C 88 20 141/84 H 100 - Problem List & Annotations (1) C. difficile colitis SNOMED Code(s): 213046724 Code(s): A04.72 - ENTEROCOLITIS D/T CLOSTRIDIUM DIFFICILE, NOT SPCF RECUR Status: Acute Current Visit: Yes (2) Osteomyelitis SNOMED Code(s): 50031679 Code(s): M86.9 - OSTEOMYELITIS, UNSPECIFIED Status: Acute Current Visit: Yes (3) CKD (chronic kidney disease) SNOMED Code(s): 072338027 Code(s): N18.9 - CHRONIC KIDNEY DISEASE, UNSPECIFIED Status: Chronic Priority: High Current Visit: Yes Qualifiers: Chronic kidney disease stage: stage 3 (moderate) (4) LIVAN (acute kidney injury) SNOMED Code(s): 65197601, 12671969 Code(s): N17.9 - ACUTE KIDNEY FAILURE, UNSPECIFIED Status: Acute Current Visit: No - Problem List Review Problem List Initiated/Reviewed/Updated: Yes - My Orders Last 24 Hours: My Active Orders 03/30/21 10:05 Patient's Own Medication [Ptom] 2 each INH DAILY 03/30/21 10:46 Blood Culture x2 Reflex Set [OM.PC] Stat 03/30/21 11:45 CULTURE BLOOD [BC] Stat 03/30/21 12:00 CULTURE BLOOD [BC] Stat 03/30/21 23:36 URINALYSIS W/MICROSCOPIC [UA W/MICROSCOPIC] [URIN] Routine - Plan Plan:: 61 yo male with sepsis from C.diff infection C.diff: continue oral vancomycin MSSE osteomyelitis of shoulder: Rocephin, Anemia: s/p 1 unit pRBC, Hgb 7.7 today, will continue to trend Hgb a.fib: on amiodarone, anticoagultation stopped due to concerns of bleed Chronic pain: on dilaudid
[2021-03-31] MEDS: Amiodarone 200 MG Tab PO SCH (08:50)
[2021-03-31] MEDS: predniSONE 20 MG Tab PO SCH (08:50)
[2021-03-31] MEDS: TIOTROPIUM BROMIDE INH SCH (08:51)
[2021-03-31] MEDS: VILANTEROL INH SCH (08:52)
[2021-03-31] MEDS: FLUTICASONE INH SCH (08:52)
[2021-03-31] MEDS: Ondansetron 4 MG/2 ML SDV IVPUSH PRN (20:32)
[2021-04-01] MEDS: HYDROmorphone 2 MG Tab PO PRN ×4 (03:55→22:12)
[2021-04-01] MEDS: Gabapentin 800 MG Tab PO SCH ×4 (05:49→23:27)
[2021-04-01] MEDS: Vancomycin 25 MG/ML Compounding Kit PO SCH ×4 (05:49→23:27)
[2021-04-01] MEDS: Omeprazole 20 MG Cap.CR PO SCH (09:29)
[2021-04-01] MEDS: Amiodarone 200 MG Tab PO SCH (09:31)
[2021-04-01] MEDS: predniSONE 20 MG Tab PO SCH (09:31)
[2021-04-01] MEDS: TIOTROPIUM BROMIDE INH SCH (09:32)
[2021-04-01] MEDS: VILANTEROL INH SCH (09:33)
[2021-04-01] MEDS: FLUTICASONE INH SCH (09:33)
[2021-04-01 11:14] LABS: CARBON DIOXIDE,CO2 34.4 mmol/L (21.0-32.0); POTASSIUM,K 3.9 mmol/L (3.5-5.1)
--- NOTE | 2021-04-01 12:36 | PCM.PN ---
- General Info Date of Service: 04/01/21 - Review of Systems Systems Review Comment:: reports multiple loose stools, and gas pains - Patient Data Vitals - Most Recent: Last Vital Signs Temp 36.4 C 04/01/21 12:00 Pulse 100 04/01/21 12:00 Resp 22 H 04/01/21 12:00 BP 105/66 04/01/21 12:00 Pulse Ox 96 04/01/21 12:00 Weight - Most Recent: 73.573 kg I&O - Last 24 Hours: Intake & Output 03/31/21 04/01/21 04/01/21 22:59 06:59 14:59 Intake Total 1040 650 Output Total 1700 550 Balance -660 100 Lab Results Last 24 Hours: Laboratory Results - last 24 hr 04/01/21 04/01/21 Range/Units 10:16 10:16 WBC 9.27 (4.0-11.0) K/uL RBC 3.10 L (4.50-5.90) M/uL Hgb 7.6 L (13.0-17.0) g/dL Hct 26.0 L (38.0-50.0) % MCV 83.9 (80.0-98.0) fL MCH 24.5 L (27.0-32.0) pg MCHC 29.2 L (31.0-37.0) g/dL RDW Std Deviation 58.7 (28.0-62.0) fl RDW Coeff of Tre 19 H (11.0-15.0) % Plt Count 210 (150-400) K/uL MPV 9.30 (7.40-12.00) fL Add Manual Diff YES Neutrophils % (Manual) 76 (48.0-80.0) % Band Neutrophils % 2 % Lymphocytes % (Manual) 14 L (16.0-40.0) % Monocytes % (Manual) 8 (0.0-15.0) % Nucleated RBC % 0.0 /100WBC Absolute Seg Neuts 7.0 H (1.4-5.7) Band Neutrophils # 0.2 Lymphocytes # (Manual) 1.3 (0.6-2.4) Monocytes # (Manual) 0.7 (0.0-0.8) Nucleated RBCs # 0 K/uL Sodium 139 (136-148) mmol/L Potassium 3.9 (3.5-5.1) mmol/L Chloride 102 (98-107) mmol/L Carbon Dioxide 34.4 H (21.0-32.0) mmol/L BUN 25 H (7.0-18.0) mg/dL Creatinine 1.9 H (0.8-1.3) mg/dL Est Cr Clr Drug Dosing 35.52 mL/min Estimated GFR (MDRD) 36.2 ml/min Glucose 109 H (74-106) mg/dL Calcium 7.2 L (8.5-10.1) mg/dL Steve Results Last 24 Hours: Microbiology 03/30/21 12:00 Aerobic Blood Culture - Preliminary Blood - Venous - Lab Draw NO GROWTH AFTER 2 DAYS Anaerobic Blood Culture - Final 03/30/21 11:45 Aerobic Blood Culture - Preliminary Blood - Venous NO GROWTH AFTER 2 DAYS Anaerobic Blood Culture - Preliminary NO GROWTH AFTER 2 DAYS Med Orders - Current: Current Medications Amiodarone HCl (Amiodarone 200 Mg Tab) 200 mg PO DAILY [facility] Last Admin: 04/01/21 09:31 Dose: 200 mg Documented by: Gabapentin (Gabapentin 800 Mg Tab) 800 mg PO QID [facility] Last Admin: 04/01/21 12:05 Dose: 800 mg Documented by: Hydromorphone HCl (Hydromorphone 2 Mg Tab) 4 mg PO Q4H PRN PRN Reason: Pain Last Admin: 04/01/21 09:29 Dose: 4 mg Documented by: Ceftriaxone Sodium/Dextrose (Rocephin In Dextrose,Iso-Osm 1 Gm/50 Ml) 50 mls @ 100 mls/hr IV Q24H [facility] Last Admin: 03/31/21 13:47 Dose: 100 mls/hr Documented by: Omeprazole (Omeprazole 20 Mg Cap.Cr) 40 mg PO ACBREAKFAST [facility] Last Admin: 04/01/21 09:29 Dose: 40 mg Documented by: Ondansetron HCl (Ondansetron 4 Mg/2 Ml Sdv) 4 mg IVPUSH Q6H PRN PRN Reason: Nausea/Vomiting Last Admin: 03/31/21 20:32 Dose: 4 mg Documented by: Fluticasone/Vilanterol [Breo Ellipta 200-25 Mcg Inhalation Kit] 1 each INH DAILY [facility] Last Admin: 11/17/21 09:33 Dose: 1 each Documented by: Tiotropium [place] [ Spiriva Respimat] 1. 25 Mcg/Actuation 2 each INH DAILY [facility] Last Admin: 04/01/21 09:32 Dose: 2 each Documented by: Prednisone (Prednisone 20 Mg Tab) 20 mg PO DAILY [facility] Last Admin: 04/01/21 09:31 Dose: 20 mg Documented by: Vancomycin HCl (Vancomycin 25 Mg/Ml Compounding Kit) 125 mg PO QID [facility] Last Admin: 04/01/21 12:05 Dose: 125 mg Documented by: Discontinued Medications Enoxaparin Sodium (Enoxaparin 40 Mg/0.4 Ml Syringe) 40 mg SUBCUT Q24H [facility] Sodium Chloride (Normal Saline) 1,000 mls @ 125 mls/hr IV ASDIRECTED [facility] Stop: 03/30/21 18:59 Last Admin: 03/30/21 14:31 Dose: 125 mls/hr Documented by: Patient's Own MedicationSpiriva Respimat 0 each INH DAILY [facility] Last Admin: 03/30/21 09:53 Dose: 1 each Documented by: - Exam General: Alert, Oriented Neck: Supple Lungs: Clear to Auscultation, Normal Respiratory Effort Cardiovascular: Regular Rate, Regular Rhythm GI/Abdominal Exam: Soft, Non-Tender, No Distention Extremities: Non-Tender, No Pedal Edema Skin: Warm, Dry, Intact Neurological: No New Focal Deficit - Patient Data Lab Results Last 24 hrs: Laboratory Results - last 24 hr 04/01/21 04/01/21 Range/Units 10:16 10:16 WBC 9.27 (4.0-11.0) K/uL RBC 3.10 L (4.50-5.90) M/uL Hgb 7.6 L (13.0-17.0) g/dL Hct 26.0 L (38.0-50.0) % MCV 83.9 (80.0-98.0) fL MCH 24.5 L (27.0-32.0) pg MCHC 29.2 L (31.0-37.0) g/dL RDW Std Deviation 58.7 (28.0-62.0) fl RDW Coeff of Tre 19 H (11.0-15.0) % Plt Count 210 (150-400) K/uL MPV 9.30 (7.40-12.00) fL Add Manual Diff YES Neutrophils % (Manual) 76 (48.0-80.0) % Band Neutrophils % 2 % Lymphocytes % (Manual) 14 L (16.0-40.0) % Monocytes % (Manual) 8 (0.0-15.0) % Nucleated RBC % 0.0 /100WBC Absolute Seg Neuts 7.0 H (1.4-5.7) Band Neutrophils # 0.2 Lymphocytes # (Manual) 1.3 (0.6-2.4) Monocytes # (Manual) 0.7 (0.0-0.8) Nucleated RBCs # 0 K/uL Sodium 139 (136-148) mmol/L Potassium 3.9 (3.5-5.1) mmol/L Chloride 102 (98-107) mmol/L Carbon Dioxide 34.4 H (21.0-32.0) mmol/L BUN 25 H (7.0-18.0) mg/dL Creatinine 1.9 H (0.8-1.3) mg/dL Est Cr Clr Drug Dosing 35.52 mL/min Estimated GFR (MDRD) 36.2 ml/min Glucose 109 H (74-106) mg/dL Calcium 7.2 L (8.5-10.1) mg/dL Result Diagrams: 04/01/21 10:16 04/01/21 10:16 Steve Results Last 24 hrs: Microbiology 03/30/21 12:00 Aerobic Blood Culture - Preliminary Blood - Venous - Lab Draw NO GROWTH AFTER 2 DAYS Anaerobic Blood Culture - Final 03/30/21 11:45 Aerobic Blood Culture - Preliminary Blood - Venous NO GROWTH AFTER 2 DAYS Anaerobic Blood Culture - Preliminary NO GROWTH AFTER 2 DAYS Sepsis Event Note - Evaluation Sepsis Screening Result: Possible Sepsis Risk - Focused Exam Vital Signs: Vital Signs Temp Pulse Resp BP Pulse Ox 04/01/21 12:00 36.4 C 100 22 H 105/66 96 04/01/21 08:26 36.1 C 84 22 H 145/85 H 96 04/01/21 03:25 36.4 C 78 20 128/80 96 - Problem List & Annotations (1) C. difficile colitis SNOMED Code(s): 773427393 Code(s): A04.72 - ENTEROCOLITIS D/T CLOSTRIDIUM DIFFICILE, NOT SPCF RECUR Status: Acute Current Visit: Yes (2) Osteomyelitis SNOMED Code(s): 57485135 Code(s): M86.9 - OSTEOMYELITIS, UNSPECIFIED Status: Acute Current Visit: Yes (3) CKD (chronic kidney disease) SNOMED Code(s): 359758462 Code(s): N18.9 - CHRONIC KIDNEY DISEASE, UNSPECIFIED Status: Chronic Priority: High Current Visit: Yes Qualifiers: Chronic kidney disease stage: stage 3 (moderate) (4) LIVAN (acute kidney injury) SNOMED Code(s): 81173511, 64818359 Code(s): N17.9 - ACUTE KIDNEY FAILURE, UNSPECIFIED Status: Acute Current Visit: No - Problem List Review Problem List Initiated/Reviewed/Updated: Yes - Plan Plan:: 61 yo male with sepsis from C.diff infection C.diff: continue oral vancomycin MSSE osteomyelitis of shoulder: Rocephin, Anemia: s/p 1 unit pRBC, Hgb 7.6 today, will continue to trend Hgb a.fib: on amiodarone, anticoagulation stopped due to concerns of bleed Chronic pain: on dilaudid acute on chronic kidney disease: creatinine is 1.9 tdaoy
[2021-04-02] MEDS: HYDROmorphone 2 MG Tab PO PRN ×4 (02:14→19:05)
[2021-04-02] MEDS: Ondansetron 4 MG/2 ML SDV IVPUSH PRN (05:55)
[2021-04-02] MEDS: Vancomycin 25 MG/ML Compounding Kit PO SCH ×3 (05:56→17:57)
[2021-04-02] MEDS: Gabapentin 800 MG Tab PO SCH ×3 (05:56→17:57)
[2021-04-02] MEDS: Omeprazole 20 MG Cap.CR PO SCH (06:31)
[2021-04-02 08:13] LABS: CARBON DIOXIDE,CO2 35.5 mmol/L (21.0-32.0); POTASSIUM,K 4.2 mmol/L (3.5-5.1)
[2021-04-02] MEDS: predniSONE 20 MG Tab PO SCH (08:18)
[2021-04-02] MEDS: Amiodarone 200 MG Tab PO SCH (08:18)
[2021-04-02] MEDS: TIOTROPIUM BROMIDE INH SCH (08:19)
[2021-04-02] MEDS: FLUTICASONE INH SCH (08:19)
[2021-04-02] MEDS: VILANTEROL INH SCH (08:19)
[2021-04-02] MEDS: Furosemide 40 MG Tab PO SCH (14:06)
--- NOTE | 2021-04-02 16:05 | PCM.PN ---
- General Info Date of Service: 04/02/21 - Review of Systems Systems Review Comment:: feeling better - Patient Data Vitals - Most Recent: Last Vital Signs Temp 36.8 C 04/02/21 11:52 Pulse 93 04/02/21 11:52 Resp 20 04/02/21 11:52 BP 126/82 04/02/21 11:52 Pulse Ox 96 04/02/21 11:52 Weight - Most Recent: 73.573 kg I&O - Last 24 Hours: Intake & Output 04/02/21 04/02/21 04/02/21 06:59 14:59 22:59 Intake Total 350 Output Total 450 Balance -100 Lab Results Last 24 Hours: Laboratory Results - last 24 hr 04/02/21 04/02/21 Range/Units 07:26 07:26 WBC 8.59 (4.0-11.0) K/uL RBC 3.17 L (4.50-5.90) M/uL Hgb 7.8 L (13.0-17.0) g/dL Hct 26.8 L (38.0-50.0) % MCV 84.5 (80.0-98.0) fL MCH 24.6 L (27.0-32.0) pg MCHC 29.1 L (31.0-37.0) g/dL RDW Std Deviation 59.0 (28.0-62.0) fl RDW Coeff of Tre 19 H (11.0-15.0) % Plt Count 256 (150-400) K/uL MPV 9.60 (7.40-12.00) fL Add Manual Diff YES Neutrophils % (Manual) 72 (48.0-80.0) % Band Neutrophils % 6 % Lymphocytes % (Manual) 17 (16.0-40.0) % Monocytes % (Manual) 5 (0.0-15.0) % Nucleated RBC % 0.0 /100WBC Absolute Seg Neuts 6.2 H (1.4-5.7) Band Neutrophils # 0.5 Lymphocytes # (Manual) 1.5 (0.6-2.4) Monocytes # (Manual) 0.4 (0.0-0.8) Nucleated RBCs # 0 K/uL Sodium 139 (136-148) mmol/L Potassium 4.2 (3.5-5.1) mmol/L Chloride 103 (98-107) mmol/L Carbon Dioxide 35.5 H (21.0-32.0) mmol/L BUN 23 H (7.0-18.0) mg/dL Creatinine 1.5 H (0.8-1.3) mg/dL Est Cr Clr Drug Dosing 44.99 mL/min Estimated GFR (MDRD) 47.6 ml/min Glucose 94 (74-106) mg/dL Calcium 7.4 L (8.5-10.1) mg/dL Total Bilirubin 0.2 (0.2-1.0) mg/dL AST 19 (15-37) IU/L ALT 10 L (14-63) IU/L Alkaline Phosphatase 53 (46-116) U/L Total Protein 5.2 L (6.4-8.2) g/dL Albumin 1.4 L (3.4-5.0) g/dL Globulin 3.8 (2.6-4.0) g/dL Albumin/Globulin Ratio 0.4 L (0.9-1.6) Steve Results Last 24 Hours: Microbiology 03/30/21 12:00 Aerobic Blood Culture - Preliminary Blood - Venous - Lab Draw NO GROWTH AFTER 3 DAYS Anaerobic Blood Culture - Final 03/30/21 11:45 Aerobic Blood Culture - Preliminary Blood - Venous NO GROWTH AFTER 3 DAYS Anaerobic Blood Culture - Preliminary NO GROWTH AFTER 3 DAYS Med Orders - Current: Current Medications Amiodarone HCl (Amiodarone 200 Mg Tab) 200 mg PO DAILY [facility] Last Admin: 04/02/21 08:18 Dose: 200 mg Documented by: Furosemide (Furosemide 40 Mg Tab) 40 mg PO DAILY [facility] Last Admin: 04/02/21 14:06 Dose: 40 mg Documented by: Gabapentin (Gabapentin 800 Mg Tab) 800 mg PO QID [facility] Last Admin: 04/02/21 12:01 Dose: 800 mg Documented by: Hydromorphone HCl (Hydromorphone 2 Mg Tab) 4 mg PO Q4H PRN PRN Reason: Pain Last Admin: 04/02/21 12:01 Dose: 4 mg Documented by: Ceftriaxone Sodium/Dextrose (Rocephin In Dextrose,Iso-Osm 1 Gm/50 Ml) 50 mls @ 100 mls/hr IV Q24H [facility] Last Admin: 04/02/21 14:06 Dose: 100 mls/hr Documented by: Omeprazole (Omeprazole 20 Mg Cap.Cr) 40 mg PO ACBREAKFAST [facility] Last Admin: 04/02/21 06:31 Dose: 40 mg Documented by: Ondansetron HCl (Ondansetron 4 Mg/2 Ml Sdv) 4 mg IVPUSH Q6H PRN PRN Reason: Nausea/Vomiting Last Admin: 04/02/21 05:55 Dose: 4 mg Documented by: Fluticasone/Vilanterol [Breo Ellipta 200-25 Mcg Inhalation Kit] 1 each INH DAILY [facility] Last Admin: 04/02/21 08:19 Dose: 1 each Documented by: Tiotropium [place] [ Spiriva Respimat] 1. 25 Mcg/Actuation 2 each INH DAILY [facility] Last Admin: 04/02/21 08:19 Dose: 2 each Documented by: Prednisone (Prednisone 20 Mg Tab) 20 mg PO DAILY [facility] Last Admin: 04/02/21 08:18 Dose: 20 mg Documented by: Vancomycin HCl (Vancomycin 25 Mg/Ml Compounding Kit) 125 mg PO QID [facility] Last Admin: 04/02/21 12:01 Dose: 125 mg Documented by: Discontinued Medications Enoxaparin Sodium (Enoxaparin 40 Mg/0.4 Ml Syringe) 40 mg SUBCUT Q24H [facility] Sodium Chloride (Normal Saline) 1,000 mls @ 125 mls/hr IV ASDIRECTED [facility] Stop: 03/30/21 18:59 Last Admin: 03/30/21 14:31 Dose: 125 mls/hr Documented by: Patient's Own MedicationSpiriva Respimat 0 each INH DAILY [facility] Last Admin: 03/30/21 09:53 Dose: 1 each Documented by: - Exam General: Alert, Oriented Neck: Supple Lungs: Clear to Auscultation, Normal Respiratory Effort Cardiovascular: Regular Rate, Regular Rhythm GI/Abdominal Exam: Normal Bowel Sounds, Soft, Non-Tender Extremities: Non-Tender, No Pedal Edema Skin: Warm, Dry, Intact Neurological: No New Focal Deficit - Patient Data Lab Results Last 24 hrs: Laboratory Results - last 24 hr 04/02/21 04/02/21 Range/Units 07:26 07:26 WBC 8.59 (4.0-11.0) K/uL RBC 3.17 L (4.50-5.90) M/uL Hgb 7.8 L (13.0-17.0) g/dL Hct 26.8 L (38.0-50.0) % MCV 84.5 (80.0-98.0) fL MCH 24.6 L (27.0-32.0) pg MCHC 29.1 L (31.0-37.0) g/dL RDW Std Deviation 59.0 (28.0-62.0) fl RDW Coeff of Tre 19 H (11.0-15.0) % Plt Count 256 (150-400) K/uL MPV 9.60 (7.40-12.00) fL Add Manual Diff YES Neutrophils % (Manual) 72 (48.0-80.0) % Band Neutrophils % 6 % Lymphocytes % (Manual) 17 (16.0-40.0) % Monocytes % (Manual) 5 (0.0-15.0) % Nucleated RBC % 0.0 /100WBC Absolute Seg Neuts 6.2 H (1.4-5.7) Band Neutrophils # 0.5 Lymphocytes # (Manual) 1.5 (0.6-2.4) Monocytes # (Manual) 0.4 (0.0-0.8) Nucleated RBCs # 0 K/uL Sodium 139 (136-148) mmol/L Potassium 4.2 (3.5-5.1) mmol/L Chloride 103 (98-107) mmol/L Carbon Dioxide 35.5 H (21.0-32.0) mmol/L BUN 23 H (7.0-18.0) mg/dL Creatinine 1.5 H (0.8-1.3) mg/dL Est Cr Clr Drug Dosing 44.99 mL/min Estimated GFR (MDRD) 47.6 ml/min Glucose 94 (74-106) mg/dL Calcium 7.4 L (8.5-10.1) mg/dL Total Bilirubin 0.2 (0.2-1.0) mg/dL AST 19 (15-37) IU/L ALT 10 L (14-63) IU/L Alkaline Phosphatase 53 (46-116) U/L Total Protein 5.2 L (6.4-8.2) g/dL Albumin 1.4 L (3.4-5.0) g/dL Globulin 3.8 (2.6-4.0) g/dL Albumin/Globulin Ratio 0.4 L (0.9-1.6) Result Diagrams: 04/02/21 07:26 04/02/21 07:26 Steve Results Last 24 hrs: Microbiology 03/30/21 12:00 Aerobic Blood Culture - Preliminary Blood - Venous - Lab Draw NO GROWTH AFTER 3 DAYS Anaerobic Blood Culture - Final 03/30/21 11:45 Aerobic Blood Culture - Preliminary Blood - Venous NO GROWTH AFTER 3 DAYS Anaerobic Blood Culture - Preliminary NO GROWTH AFTER 3 DAYS Sepsis Event Note - Evaluation Sepsis Screening Result: No Definite Risk - Focused Exam Vital Signs: Vital Signs Temp Pulse Resp BP Pulse Ox 04/02/21 11:52 36.8 C 93 20 126/82 96 04/02/21 08:00 36.6 C 82 18 118/68 96 - Problem List & Annotations (1) C. difficile colitis SNOMED Code(s): 297208845 Code(s): A04.72 - ENTEROCOLITIS D/T CLOSTRIDIUM DIFFICILE, NOT SPCF RECUR Status: Acute Current Visit: Yes (2) Osteomyelitis SNOMED Code(s): 75848942 Code(s): M86.9 - OSTEOMYELITIS, UNSPECIFIED Status: Acute Current Visit: Yes (3) CKD (chronic kidney disease) SNOMED Code(s): 328502132 Code(s): N18.9 - CHRONIC KIDNEY DISEASE, UNSPECIFIED Status: Chronic Priority: High Current Visit: Yes Qualifiers: Chronic kidney disease stage: stage 3 (moderate) (4) LIVAN (acute kidney injury) SNOMED Code(s): 66659729, 84917215 Code(s): N17.9 - ACUTE KIDNEY FAILURE, UNSPECIFIED Status: Acute Current Visit: No - Problem List Review Problem List Initiated/Reviewed/Updated: Yes - My Orders Last 24 Hours: My Active Orders 04/02/21 14:00 Furosemide [Lasix] 40 mg PO DAILY 04/03/21 05:11 CBC WITH AUTO DIFF [HEME] AM COMPREHENSIVE METABOLIC PN,CMP [CHEM] AM 04/04/21 05:11 CBC WITH AUTO DIFF [HEME] AM COMPREHENSIVE METABOLIC PN,CMP [CHEM] AM - Plan Plan:: 61 yo male with sepsis from C.diff infection C.diff: continue oral vancomycin MSSE osteomyelitis of shoulder: Rocephin, Anemia: s/p 1 unit pRBC, Hgb 7.8 today, will continue to trend Hgb a.fib: on amiodarone, anticoagulation stopped due to concerns of bleed Chronic pain: on dilaudid acute on chronic kidney disease: creatinine is 1.5 today, will resume lasix Dispo: anticipate discharge home tomorrow.
[2021-04-03] MEDS: Vancomycin 25 MG/ML Compounding Kit PO SCH ×3 (00:02→12:29)
[2021-04-03] MEDS: Gabapentin 800 MG Tab PO SCH ×3 (00:03→11:01)
[2021-04-03] MEDS: HYDROmorphone 2 MG Tab PO PRN ×3 (00:03→12:29)
[2021-04-03] MEDS: Omeprazole 20 MG Cap.CR PO SCH (06:15)
[2021-04-03 07:51] LABS: CARBON DIOXIDE,CO2 36.6 mmol/L (21.0-32.0); POTASSIUM,K 4.5 mmol/L (3.5-5.1)
[2021-04-03] MEDS: Amiodarone 200 MG Tab PO SCH (09:07)
[2021-04-03] MEDS: Ondansetron 4 MG/2 ML SDV IVPUSH PRN (09:07)
[2021-04-03] MEDS: Furosemide 40 MG Tab PO SCH (09:07)
[2021-04-03] MEDS: predniSONE 20 MG Tab PO SCH (09:07)
--- NOTE | 2021-04-03 09:46 | PCM.DCSUM1 ---
Discharge Summary - Hospital Course HPI Initial Comments: 61 yo male with pmh of ABPA, bronchietasis, a.fib, and right shoulder osteomyelitis who was receiving IV Rocephin at [facility] on 03/26/21 with complaints of fevers, nausea and diarrhea. He was seen in the ED and noted to have low blood pressures. CT scan of the abdomen reported nonspecific colitis. Right shoulder x-ray reported decrease in fluid collection. His stool was positive for C.diff. His last C.diff infection was 6 months ago. His Hgb was 7.5 but guiac was negative. His anticagulation was discontinued due to concerns of GI bleed during his hospitalization for sepsis, LIVAN, septic arthritis in [place] last week. His blood pressure did not rise with fluids so he was started on levophed. As there was no ICU beds in [place] he was transferred to closest ICU bed which was [place]. On arrival he was no longer needing levophed. His Hgb was 6.4 and he received 1 unit of pRBC, oral VAncomycin and IV ceftriaxone. The intesivist talked with orthopedic surgeon who did not fel aspiration of shoulder was indicated as it had been done 03/04/21 at [facility] and grew MSSE. PAtient was then transferred back to [place]. He reports his fever has resolved. He does have some nausea and stomach cramps but is feeling much better. - Discharge Data Discharge Date: 04/03/21 Discharge Disposition: Home, Self-Care 01 Condition: Good - Referral to Home Health Primary Care Physician: PCP None - Discharge Diagnosis/Problem(s) (1) C. difficile colitis SNOMED Code(s): 194460522 ICD Code: A04.72 - ENTEROCOLITIS D/T CLOSTRIDIUM DIFFICILE, NOT SPCF RECUR Status: Acute Current Visit: Yes (2) Osteomyelitis SNOMED Code(s): 92100511 ICD Code: M86.9 - OSTEOMYELITIS, UNSPECIFIED Status: Acute Current Visit: Yes (3) CKD (chronic kidney disease) SNOMED Code(s): 959178530 ICD Code: N18.9 - CHRONIC KIDNEY DISEASE, UNSPECIFIED Status: Chronic Priority: High Current Visit: Yes Qualifiers: Chronic kidney disease stage: stage 3 (moderate) (4) LIVAN (acute kidney injury) SNOMED Code(s): 89991150, 18874991 ICD Code: N17.9 - ACUTE KIDNEY FAILURE, UNSPECIFIED Status: Acute Current Visit: No - Patient Summary/Data Consults: Consultations 03/28/21 23:15 PT Evaluation and Treatment [CONS] Routine Hospital Course: Patient was treated with oral vancomycin and his IV rocephen was resumed. His lasix was held initially. He did have improvement in his diarrhea and his creatinine improved to 1.4. His Hgb remained stable at 8.2. He is to be discharged home today on Vancomycin pulse taper. He will resume his outpatient infusions of Rocephin. He was instructed to follow up with Dr. Landeros next week regarding recent hospitalization and the need to restart anticoagulation and central line care that was place in [place]. He was instructed to monitor his diarrhea and watch out for dehydration with the resumption of his lasix. - Discharge Plan Prescriptions/Med Rec: Vancomycin [Vancocin 125 MG Capsule] 125 mg PO ASDIRECTED #68 cap Home Medications: Home Meds Fluticasone/Vilanterol [Breo Ellipta 200-25 MCG Inhalation Kit] 1 puff INH DAILY 08/10/20 [History] HYDROmorphone [Dilaudid] 4 mg PO Q4H PRN 08/10/20 [History] Testosterone 100 mg TD DAILY 08/10/20 [History] Tiotropium [place] [Spiriva Respimat] 2 puff INH DAILY 09/14/20 [History] Gabapentin [Neurontin] 800 mg PO QID tablet 09/16/20 [Rx] Omeprazole 40 mg PO ACBREAKFAST 11/21/20 [History] Amiodarone [Cordarone] 200 mg PO DAILY 03/28/21 [History] Calcium Carbonate/Vitamin D3 [Oyster Shell 500-Vit D3 200 Tb] 1 tab PO BID 03/28/21 [History] Ondansetron [Zofran] 8 mg PO TID PRN 03/28/21 [History] Simethicone 80 mg PO QID PRN 03/28/21 [History] Potassium Chloride [Klor-Con 10] 10 meq PO DAILY 04/01/21 [History] Furosemide 40 mg PO DAILY #0 04/03/21 [Rx] Vancomycin [Vancocin 125 MG Capsule] 125 mg PO ASDIRECTED #68 cap 04/03/21 [Rx] cefTRIAXone [Rocephin in Dextrose,Iso-Osm 1 GM/50 ML] 1 mg IV Q24H bag 04/03/21 [Rx] Patient Handouts: Osteomyelitis, Adult, Food Basics for Chronic Kidney Disease, Clostridioides Difficile Infection, [id number], Chronic Kidney Disease, Adult, [id number] Referrals: Connor Melchor MD [Ordering Only Provider] - 04/08/21 1:00 pm (Bring your in surance on the day of appointment. ) - Discharge Summary/Plan Comment DC Time >30 min.: No Total # of Minutes for Discharge Time: 20 - Patient Data Vitals - Most Recent: Last Vital Signs Temp 36.2 C 04/03/21 04:00 Pulse 89 04/03/21 04:00 Resp 18 04/03/21 04:00 BP 114/73 04/03/21 04:00 Pulse Ox 99 04/03/21 04:00 Weight - Most Recent: 72.983 kg I&O - Last 24 hours: Intake & Output 04/02/21 04/03/21 04/03/21 22:59 06:59 14:59 Intake Total 560 730 Output Total 650 1275 Balance -90 -545 Lab Results - Last 24 hrs: Laboratory Results - last 24 hr 04/03/21 04/03/21 Range/Units 06:42 06:42 WBC 11.99 H (4.0-11.0) K/uL RBC 3.28 L (4.50-5.90) M/uL Hgb 8.2 L (13.0-17.0) g/dL Hct 27.8 L (38.0-50.0) % MCV 84.8 (80.0-98.0) fL MCH 25.0 L (27.0-32.0) pg MCHC 29.5 L (31.0-37.0) g/dL RDW Std Deviation 59.1 (28.0-62.0) fl RDW Coeff of Tre 19 H (11.0-15.0) % Plt Count 284 (150-400) K/uL MPV 9.50 (7.40-12.00) fL Add Manual Diff YES Neutrophils % (Manual) 75 (48.0-80.0) % Band Neutrophils % 6 % Lymphocytes % (Manual) 16 (16.0-40.0) % Monocytes % (Manual) 3 (0.0-15.0) % Nucleated RBC % 0.2 /100WBC Absolute Seg Neuts 9.0 H (1.4-5.7) Band Neutrophils # 0.7 Lymphocytes # (Manual) 1.9 (0.6-2.4) Monocytes # (Manual) 0.4 (0.0-0.8) Nucleated RBCs # 0 K/uL Sodium 140 (136-148) mmol/L Potassium 4.5 (3.5-5.1) mmol/L Chloride 103 (98-107) mmol/L Carbon Dioxide 36.6 H (21.0-32.0) mmol/L BUN 26 H (7.0-18.0) mg/dL Creatinine 1.4 H (0.8-1.3) mg/dL Est Cr Clr Drug Dosing 48.20 mL/min Estimated GFR (MDRD) 51.5 ml/min Glucose 80 (74-106) mg/dL Calcium 7.4 L (8.5-10.1) mg/dL Total Bilirubin 0.2 (0.2-1.0) mg/dL AST 18 (15-37) IU/L ALT 11 L (14-63) IU/L Alkaline Phosphatase 50 (46-116) U/L Total Protein 5.0 L (6.4-8.2) g/dL Albumin 1.6 L (3.4-5.0) g/dL Globulin 3.4 (2.6-4.0) g/dL Albumin/Globulin Ratio 0.5 L (0.9-1.6) SHILOH Results - Last 24 hrs: Microbiology 03/30/21 12:00 Aerobic Blood Culture - Preliminary Blood - Venous - Lab Draw NO GROWTH AFTER 3 DAYS Anaerobic Blood Culture - Final 03/30/21 11:45 Aerobic Blood Culture - Preliminary Blood - Venous NO GROWTH AFTER 3 DAYS Anaerobic Blood Culture - Preliminary NO GROWTH AFTER 3 DAYS Med Orders - Current: Current Medications Amiodarone HCl (Amiodarone 200 Mg Tab) 200 mg PO DAILY [facility] Last Admin: 04/03/21 09:07 Dose: 200 mg Documented by: Furosemide (Furosemide 40 Mg Tab) 40 mg PO DAILY [facility] Last Admin: 04/03/21 09:07 Dose: 40 mg Documented by: Gabapentin (Gabapentin 800 Mg Tab) 800 mg PO QID [facility] Last Admin: 04/03/21 06:16 Dose: 800 mg Documented by: Hydromorphone HCl (Hydromorphone 2 Mg Tab) 4 mg PO Q4H PRN PRN Reason: Pain Last Admin: 04/03/21 06:16 Dose: 4 mg Documented by: Ceftriaxone Sodium/Dextrose (Rocephin In Dextrose,Iso-Osm 1 Gm/50 Ml) 50 mls @ 100 mls/hr IV Q24H [facility] Last Admin: 04/02/21 14:06 Dose: 100 mls/hr Documented by: Omeprazole (Omeprazole 20 Mg Cap.Cr) 40 mg PO ACBREAKFAST [facility] Last Admin: 04/03/21 06:15 Dose: 40 mg Documented by: Ondansetron HCl (Ondansetron 4 Mg/2 Ml Sdv) 4 mg IVPUSH Q6H PRN PRN Reason: Nausea/Vomiting Last Admin: 04/03/21 09:07 Dose: 4 mg Documented by: Fluticasone/Vilanterol [Breo Ellipta 200-25 Mcg Inhalation Kit] 1 each INH DAILY [facility] Last Admin: 04/02/21 08:19 Dose: 1 each Documented by: Tiotropium [place] [ Spiriva Respimat] 1. 25 Mcg/Actuation 2 each INH DAILY [facility] Last Admin: 04/02/21 08:19 Dose: 2 each Documented by: Prednisone (Prednisone 20 Mg Tab) 20 mg PO DAILY [facility] Last Admin: 04/03/21 09:07 Dose: 20 mg Documented by: Vancomycin HCl (Vancomycin 25 Mg/Ml Compounding Kit) 125 mg PO QID [facility] Last Admin: 04/03/21 06:15 Dose: 125 mg Documented by: Discontinued Medications Enoxaparin Sodium (Enoxaparin 40 Mg/0.4 Ml Syringe) 40 mg SUBCUT Q24H [facility] Sodium Chloride (Normal Saline) 1,000 mls @ 125 mls/hr IV ASDIRECTED [facility] Stop: 03/30/21 18:59 Last Admin: 03/30/21 14:31 Dose: 125 mls/hr Documented by: Patient's Own MedicationSpiriva Respimat 0 each INH DAILY [facility] Last Admin: 03/30/21 09:53 Dose: 1 each Documented by:
[2021-04-03] MEDS: FLUTICASONE INH SCH (09:54)
[2021-04-03] MEDS: VILANTEROL INH SCH (09:54)
[2021-04-03] MEDS: TIOTROPIUM BROMIDE INH SCH (09:55)
[2021-04-03 18:56] VITALS: BP 116/76; PULSE 90
== END 2021-04-03 15:45 | disposition home or self-care (01) | DRG 872 ==
LOC: MW.MS 21:29
PROVIDERS: ADMIT Internal Medicine; ATTEND Internal Medicine
DX: A41.89 Other specified sepsis (principal); A04.72 Enterocolitis due to Clostridium difficile, not specified as recurrent; N17.9 Acute kidney failure, unspecified; M86.9 Osteomyelitis, unspecified; I13.0 Hypertensive heart and chronic kidney disease with heart failure and stage 1 through stage 4 chronic kidney disease, or unspecified chronic kidney disease; N18.30 Chronic kidney disease, stage 3 unspecified; I50.9 Heart failure, unspecified; J44.9 Chronic obstructive pulmonary disease, unspecified; K57.90 Diverticulosis of intestine, part unspecified, without perforation or abscess without bleeding; N40.0 Benign prostatic hyperplasia without lower urinary tract symptoms; M54.9 Dorsalgia, unspecified; G89.29 Other chronic pain; M10.9 Gout, unspecified; M81.0 Age-related osteoporosis without current pathological fracture; G62.9 Polyneuropathy, unspecified; F41.9 Anxiety disorder, unspecified; F32.A Depression, unspecified; B95.61 Methicillin susceptible Staphylococcus aureus infection as the cause of diseases classified elsewhere; D64.9 Anemia, unspecified; Z86.73 Personal history of transient ischemic attack (TIA), and cerebral infarction without residual deficits; Z85.820 Personal history of malignant melanoma of skin; Z88.1 Allergy status to other antibiotic agents; Z88.8 Allergy status to other drugs, medicaments and biological substances; Z79.899 Other long term (current) drug therapy; Z79.51 Long term (current) use of inhaled steroids; I25.2 Old myocardial infarction; Z87.01 Personal history of pneumonia (recurrent); Z86.711 Personal history of pulmonary embolism; Z79.01 Long term (current) use of anticoagulants; Z87.442 Personal history of urinary calculi; Z87.440 Personal history of urinary (tract) infections; Z98.49 Cataract extraction status, unspecified eye
CPT/HCPCS: 36415; 80048; 80053; 81001; 85025; 87040; 97161-GP; A9270-GY; J0696; J2405; J7030

== ENCOUNTER 2021-08-06 00:56 | Observation (INO) | payer MEDICARE, OTHER ==
[2021-08-06] MEDS ORDERED: Sodium Chloride 0.9% 10 ML Syringe FLUSH PRN (01:39)
[2021-08-06] MEDS ORDERED: Sodium Chloride 0.9% 2.5 ML Syringe FLUSH PRN (01:39)
[2021-08-06] MEDS ORDERED: HYDROmorphone 1 MG/ML Syringe IVPUSH ONE ×3 (01:41→08:19)
[2021-08-06 03:19] LABS: BLOOD UREA NITROGEN,BUN 44 mg/dL (7.0-18.0); CARBON DIOXIDE,CO2 37.7 mmol/L (21.0-32.0); CHLORIDE,CL 98 mmol/L (98-107); GLUCOSE RANDOM 105 mg/dL (74-106); LIPASE 111 U/L (73-393); POTASSIUM,K 3.7 mmol/L (3.5-5.1); SODIUM,NA 138 mmol/L (136-148)
[2021-08-06] MEDS ORDERED: Pantoprazole 80 MG in Sodium Chloride 0.9% 10 ML IVPUSH ONE (04:19)
[2021-08-06] MEDS ORDERED: Acetaminophen 325 MG Tab PO PRN (06:33)
[2021-08-06] MEDS ORDERED: Albuterol/Ipratropium 3.0-0.5 MG/3 ML Neb Soln NEB PRN ×2 (06:37→09:10)
[2021-08-06] MEDS ORDERED: Ondansetron 4 MG/2 ML SDV IVPUSH PRN (06:37)
[2021-08-06] MEDS ORDERED: HYDROmorphone 1 MG/ML Syringe IVPUSH PRN (08:00)
[2021-08-06] MEDS: HYDROmorphone 2 MG Tab PO PRN ×2 (08:12→12:12)
[2021-08-06] MEDS ORDERED: Pantoprazole 40 MG in Sodium Chloride 0.9% 10 ML IVPUSH SCH (09:00)
[2021-08-06] MEDS ORDERED: Tiotropium Bromide [Spiriva Respimat] INH SCH (09:15)
[2021-08-06] MEDS ORDERED: Furosemide 40 MG Tab PO SCH (09:30)
[2021-08-06] MEDS ORDERED: predniSONE 20 MG Tab PO SCH (09:30)
[2021-08-06] MEDS ORDERED: Amiodarone 200 MG Tab PO SCH (09:30)
[2021-08-06] MEDS ORDERED: HYDROmorphone 2 MG/ML Syringe ONE (10:58)
[2021-08-06] MEDS: HYDROmorphone 2 MG/ML Syringe IVPUSH PRN ×2 (11:04→12:55)
[2021-08-06 11:54] VITALS: BP 129/73; PULSE 98
[2021-08-06] MEDS ORDERED: Gabapentin 800 MG Tab PO SCH (12:00)
[2021-08-06] MEDS ORDERED: Non-Formulary Medication 1 Each (Omeprazole [Omeprazole] 40 MG Capsule.Dr) PO SCH (17:00)
[2021-08-06] MEDS ORDERED: Metoprolol Tartrate 50 MG Tab PO SCH (21:00)
== END 2021-08-06 13:20 ==
LOC: MW.ED 00:56 → MW.MS 04:24
PROVIDERS: ADMIT Student in an Organized Health Care Education/Training Program; ATTEND Student in an Organized Health Care Education/Training Program
DX: M25.411 Effusion, right shoulder (principal); I50.9 Heart failure, unspecified; N18.9 Chronic kidney disease, unspecified; G47.33 Obstructive sleep apnea (adult) (pediatric); I27.20 Pulmonary hypertension, unspecified; I48.91 Unspecified atrial fibrillation; J44.9 Chronic obstructive pulmonary disease, unspecified; K21.9 Gastro-esophageal reflux disease without esophagitis; G62.9 Polyneuropathy, unspecified; M81.0 Age-related osteoporosis without current pathological fracture; I25.2 Old myocardial infarction; I13.0 Hypertensive heart and chronic kidney disease with heart failure and stage 1 through stage 4 chronic kidney disease, or unspecified chronic kidney disease; F41.9 Anxiety disorder, unspecified; F32.A Depression, unspecified; I42.9 Cardiomyopathy, unspecified; Z20.822 Contact with and (suspected) exposure to COVID-19; Z90.5 Acquired absence of kidney; Z88.8 Allergy status to other drugs, medicaments and biological substances; Z79.899 Other long term (current) drug therapy; Z86.73 Personal history of transient ischemic attack (TIA), and cerebral infarction without residual deficits; Z98.890 Other specified postprocedural states
CPT/HCPCS: 36415; 36430; 71046; 73060; 73200; 80053; 81003; 83605; 83690; 83735; 83880; 84484; 85014; 85018; 85025; 85610; 85652; 86140; 86850; 86900; 86901; 86920; 87040; 87154; 93005; 96365; 96375; 96376; 99284; A9270; C9113; G0378; J1170; J3370; J7050; P9016; U0002; 87077; 87186; J3490

== ENCOUNTER 2021-09-12 18:38 | Emergency (ER) | payer MEDICARE, OTHER ==
[2021-09-12] MEDS ORDERED: Lidocaine/Epineph/Tetracaine 3 ML Syringe TOP ONE (19:11)
[2021-09-12] MEDS ORDERED: Lidocaine 1% with EPINEPHrine 1:100,000 20 ML MDV INJECT ONE (19:11)
[2021-09-12] MEDS ORDERED: Octyl 2-Cyanoacrylate 1 Tube TOP ONE (19:12)
[2021-09-12 19:37] LABS: CARBON DIOXIDE,CO2 35.5 mmol/L (21.0-32.0); POTASSIUM,K 3.7 mmol/L (3.5-5.1)
[2021-09-12] MEDS ORDERED: Lidocaine 1% 5 ML VIAL INJECT ONE ×2 (19:39)
[2021-09-12] MEDS ORDERED: Lactated Ringers 1,000 ML IV STA (20:15)
[2021-09-12 21:58] VITALS: BP 98/76; PULSE 86
== END 2021-09-12 22:05 | disposition home or self-care (01) ==
LOC: MW.ED 18:38
DX: S81.011A Laceration without foreign body, right knee, initial encounter (principal); S81.012A Laceration without foreign body, left knee, initial encounter; S09.90XA Unspecified injury of head, initial encounter; I48.91 Unspecified atrial fibrillation; I11.0 Hypertensive heart disease with heart failure; I50.9 Heart failure, unspecified; I25.9 Chronic ischemic heart disease, unspecified; Z86.73 Personal history of transient ischemic attack (TIA), and cerebral infarction without residual deficits; Z88.1 Allergy status to other antibiotic agents; Z79.899 Other long term (current) drug therapy; Z79.01 Long term (current) use of anticoagulants; W01.0XXA Fall on same level from slipping, tripping and stumbling without subsequent striking against object, initial encounter
CPT/HCPCS: 12004; 36415; 70450; 72125; 80053; 85025; 99284; A9270; J7120

== ENCOUNTER 2021-10-28 02:05 | Emergency (ER) | payer MEDICARE, OTHER ==
[2021-10-28] MEDS ORDERED: Ondansetron 4 MG Tab.DIS PO ONE (02:26)
[2021-10-28] MEDS ORDERED: Lactated Ringers 1,000 ML IV STA ×2 (02:36→04:55)
[2021-10-28] MEDS ORDERED: HYDROmorphone 1 MG/ML Syringe IVPUSH ONE ×3 (02:36→07:55)
[2021-10-28] MEDS ORDERED: Ondansetron 4 MG/2 ML SDV IVPUSH STA (03:16)
[2021-10-28 03:21] LABS: BLOOD UREA NITROGEN,BUN 47 mg/dL (7.0-18.0); CARBON DIOXIDE,CO2 39.5 mmol/L (21.0-32.0); CHLORIDE,CL 98 mmol/L (98-107); GLUCOSE RANDOM 100 mg/dL (74-106); LIPASE 274 U/L (73-393); POTASSIUM,K 4.6 mmol/L (3.5-5.1); SODIUM,NA 141 mmol/L (136-148)
[2021-10-28 03:22] LABS: ESTIMATED GFR 32 mL/min (>60)
[2021-10-28] MEDS ORDERED: diphenhydrAMINE 50 MG/ML SDV IVPUSH ONE (05:18)
[2021-10-28] MEDS ORDERED: Promethazine 25 MG/ML SDV IM ONE (07:55)
[2021-10-28 09:57] VITALS: BP 127/85; PULSE 85
== END 2021-10-28 10:06 ==
LOC: MW.ED 02:05
DX: K56.609 Unspecified intestinal obstruction, unspecified as to partial versus complete obstruction (principal); J44.9 Chronic obstructive pulmonary disease, unspecified; I13.0 Hypertensive heart and chronic kidney disease with heart failure and stage 1 through stage 4 chronic kidney disease, or unspecified chronic kidney disease; N18.9 Chronic kidney disease, unspecified; I50.9 Heart failure, unspecified; I48.91 Unspecified atrial fibrillation; I25.2 Old myocardial infarction; K21.9 Gastro-esophageal reflux disease without esophagitis; M10.9 Gout, unspecified; Z79.01 Long term (current) use of anticoagulants; Z79.899 Other long term (current) drug therapy; Z88.1 Allergy status to other antibiotic agents; Z88.8 Allergy status to other drugs, medicaments and biological substances; Z20.822 Contact with and (suspected) exposure to COVID-19
CPT/HCPCS: 36415; 36573; 74176; 80053; 83605; 83690; 83735; 85025; 85610; 96361; 96372; 96374; 96375; 96376; 99291; 99292; A9270; J1170; J1200; J2405; J2550; J7120; U0002

== ENCOUNTER 2021-11-16 16:02 | Emergency (ER) | payer MEDICARE, OTHER ==
[2021-11-16] MEDS ORDERED: Octyl 2-Cyanoacrylate 1 Tube TOP ONE (16:52)
[2021-11-16 18:54] VITALS: BP 116/84; PULSE 65
== END 2021-11-16 18:52 | disposition home or self-care (01) ==
LOC: MW.ED 16:02
DX: S51.811A Laceration without foreign body of right forearm, initial encounter (principal); S61.411A Laceration without foreign body of right hand, initial encounter; S61.212A Laceration without foreign body of right middle finger without damage to nail, initial encounter; S61.214A Laceration without foreign body of right ring finger without damage to nail, initial encounter; I11.0 Hypertensive heart disease with heart failure; I50.9 Heart failure, unspecified; I48.91 Unspecified atrial fibrillation; F41.9 Anxiety disorder, unspecified; F32.9 Major depressive disorder, single episode, unspecified; Z79.01 Long term (current) use of anticoagulants; Z86.73 Personal history of transient ischemic attack (TIA), and cerebral infarction without residual deficits; Z88.8 Allergy status to other drugs, medicaments and biological substances; Z88.1 Allergy status to other antibiotic agents; W19.XXXA Unspecified fall, initial encounter
CPT/HCPCS: 12005; 70450; 73130; 99284; A9270

== ENCOUNTER 2021-12-08 18:22 | Emergency (ER) | payer MEDICARE, OTHER ==
[2021-12-08] MEDS ORDERED: methylPREDNISolone Sodium Succinate 125 MG/2 ML SDV IVPUSH ONE (19:14)
[2021-12-08] MEDS ORDERED: Albuterol/Ipratropium 3.0-0.5 MG/3 ML Neb Soln NEB STA (19:15)
[2021-12-08 20:31] VITALS: BP 120/62
[2021-12-08 20:49] LABS: CARBON DIOXIDE,CO2 32.8 mmol/L (21.0-32.0); POTASSIUM,K 5.3 mmol/L (3.5-5.1)
[2021-12-08 21:43] VITALS: PULSE 66
== END 2021-12-08 21:43 | disposition home or self-care (01) ==
LOC: MW.ED 18:22
DX: J44.1 Chronic obstructive pulmonary disease with (acute) exacerbation (principal); E87.5 Hyperkalemia; I13.0 Hypertensive heart and chronic kidney disease with heart failure and stage 1 through stage 4 chronic kidney disease, or unspecified chronic kidney disease; I50.9 Heart failure, unspecified; N18.30 Chronic kidney disease, stage 3 unspecified; I25.2 Old myocardial infarction; I48.91 Unspecified atrial fibrillation; K21.9 Gastro-esophageal reflux disease without esophagitis; Z20.822 Contact with and (suspected) exposure to COVID-19; Z88.1 Allergy status to other antibiotic agents; Z88.8 Allergy status to other drugs, medicaments and biological substances; Z79.01 Long term (current) use of anticoagulants; Z79.899 Other long term (current) drug therapy
CPT/HCPCS: 36415; 71045; 80053; 83735; 84484; 85025; 85379; 93005; 96374; 99285; J2930; U0002; 93010; 99284; J7620-GY

== ENCOUNTER 2021-12-20 17:49 | Emergency (ER) | payer MEDICARE, OTHER ==
[2021-12-20] MEDS ORDERED: Lidocaine 1% PF 2 ML SDV INJECT ONE (17:57)
[2021-12-20 19:44] VITALS: BP 134/85; PULSE 72
== END 2021-12-20 19:44 | disposition home or self-care (01) ==
LOC: MW.ED 17:49
DX: S81.812A Laceration without foreign body, left lower leg, initial encounter (principal); M54.50 Low back pain, unspecified; I48.91 Unspecified atrial fibrillation; I11.0 Hypertensive heart disease with heart failure; I50.9 Heart failure, unspecified; J44.9 Chronic obstructive pulmonary disease, unspecified; Z86.73 Personal history of transient ischemic attack (TIA), and cerebral infarction without residual deficits; I25.2 Old myocardial infarction; Z88.1 Allergy status to other antibiotic agents; Z88.8 Allergy status to other drugs, medicaments and biological substances; Z79.899 Other long term (current) drug therapy; Z79.01 Long term (current) use of anticoagulants
CPT/HCPCS: 12004; 72131; 72131-26; 99283

== ENCOUNTER 2021-12-25 08:59 | Inpatient (IN) | payer MEDICARE, OTHER ==
[2021-12-25] MEDS ORDERED: Sodium Chloride 0.9% 10 ML Syringe FLUSH PRN (09:35)
[2021-12-25] MEDS ORDERED: Sodium Chloride 0.9% 2.5 ML Syringe FLUSH PRN (09:35)
[2021-12-25] MEDS ORDERED: Piperacillin/Tazobactam 4.5 GM in Sodium Chloride 0.9% 100 ML IV ONE ×2 (09:35→17:49)
[2021-12-25] MEDS ORDERED: Morphine 4 MG/ML VIAL IVPUSH ONE ×2 (09:35→14:41)
[2021-12-25] MEDS ORDERED: methylPREDNISolone Sodium Succinate 125 MG/2 ML SDV IVPUSH ONE (09:43)
[2021-12-25] MEDS ORDERED: Sodium Chloride 0.9% 500 ML IV SCH (09:45)
[2021-12-25] MEDS: Ipratropium 0.02% 0.5 MG/2.5 ML Neb Soln NEB ONE ×2 (10:03→10:27)
[2021-12-25] MEDS ORDERED: HYDROmorphone 1 MG/ML Syringe IVPUSH ONE (10:53)
[2021-12-25 10:57] LABS: CARBON DIOXIDE,CO2 40.1 mmol/L (21.0-32.0); POTASSIUM,K 3.9 mmol/L (3.5-5.1)
[2021-12-25] MEDS ORDERED: Gadobenate Dimeglumine 529 MG/ML 20 ML SDV IVPUSH STA (11:54)
[2021-12-25] MEDS ORDERED: VANCOmycin 1.5 GM/300 ML 300 ML IV ONE (12:30)
[2021-12-25] MEDS: HYDROmorphone 2 MG Tab PO PRN (22:14)
[2021-12-26] MEDS ORDERED: Gabapentin 800 MG Tab PO ONE
[2021-12-26] MEDS ORDERED: Gabapentin 800 MG Tab PO SCH
[2021-12-26] MEDS: Baclofen 10 MG Tab PO PRN (00:14)
[2021-12-26] MEDS: Gabapentin 800 MG Tab PO SCH ×5 (00:14→18:48)
[2021-12-26] MEDS: HYDROmorphone 2 MG Tab PO PRN (05:36)
[2021-12-26 07:23] LABS: CARBON DIOXIDE,CO2 38.6 mmol/L (21.0-32.0); POTASSIUM,K 4.5 mmol/L (3.5-5.1)
[2021-12-26] MEDS ORDERED: Metoprolol Tartrate 25 MG Tab PO SCH (09:00)
[2021-12-26] MEDS: predniSONE 20 MG Tab PO SCH (09:30)
[2021-12-26] MEDS: Amiodarone 200 MG Tab PO SCH (09:30)
[2021-12-26] MEDS: Apixaban 2.5 MG Tab PO SCH ×2 (09:30→20:00)
[2021-12-26] MEDS: Metoprolol Tartrate 25 MG Tab PO SCH ×2 (09:30→20:01)
[2021-12-26] MEDS: [UNRECOGNIZED DRUG - OTHER] INH SCH (09:31)
[2021-12-26] MEDS: HYDROmorphone 1 MG/ML Syringe IVPUSH PRN ×3 (09:51→19:33)
[2021-12-26] MEDS ORDERED: fentaNYL 25 MCG/HR Transdermal Patch TRDERM SCH (12:00)
[2021-12-27] MEDS: HYDROmorphone 1 MG/ML Syringe IVPUSH PRN ×8 (01:08→23:51)
[2021-12-27] MEDS: Gabapentin 800 MG Tab PO SCH ×5 (01:08→23:04)
[2021-12-27] MEDS: Baclofen 10 MG Tab PO PRN (03:42)
[2021-12-27 07:23] LABS: CARBON DIOXIDE,CO2 38.6 mmol/L (21.0-32.0); POTASSIUM,K 4.1 mmol/L (3.5-5.1)
[2021-12-27] MEDS: predniSONE 20 MG Tab PO SCH (09:08)
[2021-12-27] MEDS: Amiodarone 200 MG Tab PO SCH (09:09)
[2021-12-27] MEDS: Apixaban 2.5 MG Tab PO SCH ×2 (09:09→20:20)
[2021-12-27] MEDS: Metoprolol Tartrate 25 MG Tab PO SCH ×2 (09:10→20:18)
[2021-12-27] MEDS: [UNRECOGNIZED DRUG - OTHER] INH SCH (09:11)
[2021-12-28] MEDS: HYDROmorphone 1 MG/ML Syringe IVPUSH PRN ×7 (03:05→21:55)
[2021-12-28] MEDS: Gabapentin 800 MG Tab PO SCH ×4 (05:34→23:10)
[2021-12-28 07:03] LABS: CARBON DIOXIDE,CO2 35.4 mmol/L (21.0-32.0)
[2021-12-28] MEDS: Apixaban 2.5 MG Tab PO SCH ×2 (09:23→21:52)
[2021-12-28] MEDS: Metoprolol Tartrate 25 MG Tab PO SCH ×2 (09:23→21:52)
[2021-12-28] MEDS: predniSONE 20 MG Tab PO SCH (09:23)
[2021-12-28] MEDS: Amiodarone 200 MG Tab PO SCH (09:23)
[2021-12-28] MEDS: [UNRECOGNIZED DRUG - OTHER] INH SCH (09:31)
[2021-12-28] MEDS: Lidocaine 5% 700 MG Patch TRDERM SCH (09:34)
[2021-12-28] MEDS: fentaNYL 50 MCG/HR Transdermal Patch TRDERM SCH (12:37)
[2021-12-28] MEDS ORDERED: Sodium Chloride 0.9% 2.5 ML Syringe FLUSH PRN (15:26)
[2021-12-28] MEDS ORDERED: Albuterol/Ipratropium 3.0-0.5 MG/3 ML Neb Soln NEB PRN (15:26)
[2021-12-28] MEDS ORDERED: Sodium Chloride 0.9% 10 ML Syringe FLUSH PRN (15:26)
[2021-12-28] MEDS: Cephalexin 500 MG Cap PO SCH (15:50)
[2021-12-28] MEDS: Baclofen 10 MG Tab PO PRN (17:34)
[2021-12-28] MEDS: Omeprazole 20 MG Cap.CR PO SCH (17:34)
[2021-12-29] MEDS: HYDROmorphone 1 MG/ML Syringe IVPUSH PRN ×3 (01:26→08:42)
[2021-12-29] MEDS: Baclofen 10 MG Tab PO PRN (01:26)
[2021-12-29] MEDS: Gabapentin 800 MG Tab PO SCH ×4 (05:38→23:55)
[2021-12-29 06:05] LABS: CARBON DIOXIDE,CO2 34.7 mmol/L (21.0-32.0); POTASSIUM,K 5.6 mmol/L (3.5-5.1)
[2021-12-29] MEDS: Omeprazole 20 MG Cap.CR PO SCH ×3 (06:15→17:55)
[2021-12-29] MEDS: Apixaban 2.5 MG Tab PO SCH ×2 (08:39→21:31)
[2021-12-29] MEDS: Metoprolol Tartrate 25 MG Tab PO SCH ×3 (08:39→21:31)
[2021-12-29] MEDS: Cephalexin 500 MG Cap PO SCH ×3 (08:41→21:31)
[2021-12-29] MEDS: predniSONE 20 MG Tab PO SCH (08:41)
[2021-12-29] MEDS: Amiodarone 200 MG Tab PO SCH (08:41)
[2021-12-29] MEDS: [UNRECOGNIZED DRUG - OTHER] INH SCH (08:42)
[2021-12-29] MEDS: Lidocaine 5% 700 MG Patch TRDERM SCH (08:43)
[2021-12-29] MEDS: HYDROmorphone 2 MG Tab PO PRN ×3 (12:09→22:13)
[2021-12-30] MEDS: Gabapentin 800 MG Tab PO SCH ×3 (06:30→17:41)
[2021-12-30] MEDS: Cephalexin 500 MG Cap PO SCH ×3 (06:30→21:14)
[2021-12-30] MEDS: Omeprazole 20 MG Cap.CR PO SCH ×2 (06:30→17:42)
[2021-12-30 06:35] LABS: CARBON DIOXIDE,CO2 35.8 mmol/L (21.0-32.0); POTASSIUM,K 5.2 mmol/L (3.5-5.1)
[2021-12-30] MEDS: Baclofen 10 MG Tab PO PRN (06:47)
[2021-12-30] MEDS: predniSONE 20 MG Tab PO SCH (08:16)
[2021-12-30] MEDS: Acidophilus with Citrus Pectin/L.acidophilus Tab PO SCH (08:16)
[2021-12-30] MEDS: Amiodarone 200 MG Tab PO SCH (08:16)
[2021-12-30] MEDS: HYDROmorphone 2 MG Tab PO PRN ×2 (08:17→14:00)
[2021-12-30] MEDS: Apixaban 2.5 MG Tab PO SCH ×2 (08:17→21:15)
[2021-12-30] MEDS: Lidocaine 5% 700 MG Patch TRDERM SCH (10:00)
[2021-12-30] MEDS: DULoxetine 30 MG Cap PO SCH (11:58)
[2021-12-30] MEDS: HYDROmorphone 1 MG/ML Syringe IVPUSH PRN ×2 (11:58→18:04)
[2021-12-30] MEDS: [UNRECOGNIZED DRUG - OTHER] INH SCH (11:59)
[2021-12-30] MEDS: Metoprolol Tartrate 25 MG Tab PO SCH ×2 (14:01→21:15)
[2021-12-31] MEDS: Gabapentin 800 MG Tab PO SCH ×5 (00:20→23:30)
[2021-12-31] MEDS: HYDROmorphone 2 MG Tab PO PRN ×5 (00:21→21:15)
[2021-12-31] MEDS: Baclofen 10 MG Tab PO PRN ×2 (02:06→16:47)
[2021-12-31] MEDS: HYDROmorphone 1 MG/ML Syringe IVPUSH PRN ×4 (03:08→23:37)
[2021-12-31] MEDS: Cephalexin 500 MG Cap PO SCH ×3 (06:21→21:09)
[2021-12-31] MEDS: Omeprazole 20 MG Cap.CR PO SCH ×3 (06:22→17:18)
[2021-12-31 07:40] LABS: CARBON DIOXIDE,CO2 32.4 mmol/L (21.0-32.0); POTASSIUM,K 4.2 mmol/L (3.5-5.1)
[2021-12-31] MEDS: Amiodarone 200 MG Tab PO SCH (09:01)
[2021-12-31] MEDS: Lidocaine 5% 700 MG Patch TRDERM SCH (09:01)
[2021-12-31] MEDS: Acidophilus with Citrus Pectin/L.acidophilus Tab PO SCH (09:01)
[2021-12-31] MEDS: Apixaban 2.5 MG Tab PO SCH ×2 (09:01→21:09)
[2021-12-31] MEDS: predniSONE 20 MG Tab PO SCH (09:02)
[2021-12-31] MEDS: [UNRECOGNIZED DRUG - OTHER] INH SCH (09:02)
[2021-12-31] MEDS: DULoxetine 30 MG Cap PO SCH (09:02)
[2021-12-31] MEDS: Metoprolol Tartrate 25 MG Tab PO SCH ×2 (11:14→21:09)
[2021-12-31] MEDS: fentaNYL 50 MCG/HR Transdermal Patch TRDERM SCH (11:42)
[2021-12-31] MEDS: Fentanyl Remove Patch TRDERM SCH (11:43)
[2022-01-01] MEDS: Baclofen 10 MG Tab PO PRN ×2 (01:43→17:49)
[2022-01-01] MEDS: HYDROmorphone 2 MG Tab PO PRN ×5 (03:19→21:58)
[2022-01-01] MEDS: Gabapentin 800 MG Tab PO SCH ×3 (07:24→17:48)
[2022-01-01] MEDS: Cephalexin 500 MG Cap PO SCH ×3 (07:26→21:55)
[2022-01-01] MEDS: Omeprazole 20 MG Cap.CR PO SCH ×2 (07:46→17:49)
[2022-01-01] MEDS: predniSONE 20 MG Tab PO SCH (08:36)
[2022-01-01] MEDS: DULoxetine 30 MG Cap PO SCH (08:36)
[2022-01-01] MEDS: Amiodarone 200 MG Tab PO SCH (08:36)
[2022-01-01] MEDS: Apixaban 2.5 MG Tab PO SCH ×2 (08:36→21:55)
[2022-01-01] MEDS: Metoprolol Tartrate 25 MG Tab PO SCH ×2 (08:36→21:57)
[2022-01-01] MEDS: Acidophilus with Citrus Pectin/L.acidophilus Tab PO SCH (08:36)
[2022-01-01] MEDS: [UNRECOGNIZED DRUG - OTHER] INH SCH (08:37)
[2022-01-01] MEDS: Lidocaine 5% 700 MG Patch TRDERM SCH (08:37)
[2022-01-02] MEDS: Gabapentin 800 MG Tab PO SCH ×5 (00:24→23:44)
[2022-01-02] MEDS: HYDROmorphone 2 MG Tab PO PRN ×5 (04:35→21:48)
[2022-01-02] MEDS: Cephalexin 500 MG Cap PO SCH ×3 (06:34→21:43)
[2022-01-02] MEDS: Omeprazole 20 MG Cap.CR PO SCH ×2 (06:35→17:46)
[2022-01-02] MEDS: Baclofen 10 MG Tab PO PRN ×2 (06:39→20:20)
[2022-01-02] MEDS: Metoprolol Tartrate 25 MG Tab PO SCH ×2 (09:31→20:39)
[2022-01-02] MEDS: Apixaban 2.5 MG Tab PO SCH ×2 (09:32→20:18)
[2022-01-02] MEDS: Amiodarone 200 MG Tab PO SCH (09:32)
[2022-01-02] MEDS: predniSONE 20 MG Tab PO SCH (09:33)
[2022-01-02] MEDS: [UNRECOGNIZED DRUG - OTHER] INH SCH (09:33)
[2022-01-02] MEDS: Acidophilus with Citrus Pectin/L.acidophilus Tab PO SCH (09:33)
[2022-01-02] MEDS: DULoxetine 30 MG Cap PO SCH (09:33)
[2022-01-02] MEDS: Lidocaine 5% 700 MG Patch TRDERM SCH (09:34)
[2022-01-03] MEDS: HYDROmorphone 2 MG Tab PO PRN ×4 (01:53→14:29)
[2022-01-03] MEDS: Baclofen 10 MG Tab PO PRN ×2 (04:20→13:23)
[2022-01-03] MEDS: Gabapentin 800 MG Tab PO SCH ×2 (05:58→11:44)
[2022-01-03] MEDS: Cephalexin 500 MG Cap PO SCH ×2 (05:58→14:29)
[2022-01-03] MEDS: Omeprazole 20 MG Cap.CR PO SCH ×2 (06:00→07:19)
[2022-01-03] MEDS: Metoprolol Tartrate 25 MG Tab PO SCH (09:07)
[2022-01-03] MEDS: Acidophilus with Citrus Pectin/L.acidophilus Tab PO SCH (09:07)
[2022-01-03] MEDS: DULoxetine 30 MG Cap PO SCH (09:07)
[2022-01-03] MEDS: Amiodarone 200 MG Tab PO SCH (09:08)
[2022-01-03] MEDS: [UNRECOGNIZED DRUG - OTHER] INH SCH (09:08)
[2022-01-03] MEDS: predniSONE 20 MG Tab PO SCH (09:08)
[2022-01-03] MEDS: Lidocaine 5% 700 MG Patch TRDERM SCH (09:08)
[2022-01-03] MEDS: Apixaban 2.5 MG Tab PO SCH (09:08)
[2022-01-03] MEDS: Fentanyl Remove Patch TRDERM SCH (11:44)
[2022-01-03] MEDS: fentaNYL 50 MCG/HR Transdermal Patch TRDERM SCH (11:44)
[2022-01-03 13:48] VITALS: BP 123/60; PULSE 57
== END 2022-01-03 17:00 | disposition home health service (06) | DRG 543 ==
LOC: MW.ED 08:59 → MW.MS 18:00
PROVIDERS: ADMIT Internal Medicine; ATTEND Internal Medicine
DX: M48.55XA Collapsed vertebra, not elsewhere classified, thoracolumbar region, initial encounter for fracture (principal); R09.02 Hypoxemia; D84.821 Immunodeficiency due to drugs; J18.9 Pneumonia, unspecified organism; G89.29 Other chronic pain; I13.0 Hypertensive heart and chronic kidney disease with heart failure and stage 1 through stage 4 chronic kidney disease, or unspecified chronic kidney disease; I48.91 Unspecified atrial fibrillation; J96.11 Chronic respiratory failure with hypoxia; I42.9 Cardiomyopathy, unspecified; M86.9 Osteomyelitis, unspecified; N17.9 Acute kidney failure, unspecified; B44.89 Other forms of aspergillosis; Z66 Do not resuscitate; Z51.5 Encounter for palliative care; Z20.822 Contact with and (suspected) exposure to COVID-19; J44.9 Chronic obstructive pulmonary disease, unspecified; R79.89 Other specified abnormal findings of blood chemistry; N18.30 Chronic kidney disease, stage 3 unspecified; T38.0X5A Adverse effect of glucocorticoids and synthetic analogues, initial encounter; K21.9 Gastro-esophageal reflux disease without esophagitis; K57.90 Diverticulosis of intestine, part unspecified, without perforation or abscess without bleeding; N40.0 Benign prostatic hyperplasia without lower urinary tract symptoms; I50.9 Heart failure, unspecified; M81.0 Age-related osteoporosis without current pathological fracture; M10.9 Gout, unspecified; M54.9 Dorsalgia, unspecified; G62.9 Polyneuropathy, unspecified; G89.4 Chronic pain syndrome; M19.90 Unspecified osteoarthritis, unspecified site; M06.9 Rheumatoid arthritis, unspecified; F32.A Depression, unspecified; F41.9 Anxiety disorder, unspecified; M48.05 Spinal stenosis, thoracolumbar region; Z88.1 Allergy status to other antibiotic agents; Z87.01 Personal history of pneumonia (recurrent); Z79.52 Long term (current) use of systemic steroids; Z79.899 Other long term (current) drug therapy; I25.2 Old myocardial infarction; Z87.442 Personal history of urinary calculi; Z99.81 Dependence on supplemental oxygen; Z86.711 Personal history of pulmonary embolism; Z90.5 Acquired absence of kidney; Z86.73 Personal history of transient ischemic attack (TIA), and cerebral infarction without residual deficits
CPT/HCPCS: 36415; 71045; 72158; 74176; 80053; 81001; 83605; 83690; 83880; 84484; 85025; 85379; 85610; 86140; 87040 ×2; 93005; 93970; 96361; 96365; 96366; 96367; 96375; 96376; 99285; A9577; J1170; J2270 ×2; J2543; J2930; J3370; J3490; J7040; U0002; 71250; 71250-26; 76705; 76705-26; 80048; 80202; 83735; 85652; 93010; 97110-GP; 97162-GP; 97165-GO; 97530-GP; A9270-GY

== ENCOUNTER 2022-02-20 11:03 | Emergency (ER) | payer MEDICARE, OTHER | END 2022-02-20 13:30 | LOC: MW.ED 11:03 | DX: I50.9 Heart failure, unspecified (principal); N18.9 Chronic kidney disease, unspecified; J44.9 Chronic obstructive pulmonary disease, unspecified; I48.91 Unspecified atrial fibrillation; Z99.2 Dependence on renal dialysis; Z88.8 Allergy status to other drugs, medicaments and biological substances | CPT/HCPCS: 71045; 71045-26; 99285 ==

== ENCOUNTER 2022-03-17 08:06 | Observation (INO) | payer MEDICARE, OTHER ==
[2022-03-17] MEDS ORDERED: Albuterol/Ipratropium 3.0-0.5 MG/3 ML Neb Soln NEB ONE (08:31)
[2022-03-17 10:06] LABS: CARBON DIOXIDE,CO2 43.7 mmol/L (21.0-32.0); POTASSIUM,K 3.5 mmol/L (3.5-5.1)
[2022-03-17] MEDS ORDERED: Albuterol/Ipratropium 3.0-0.5 MG/3 ML Neb Soln NEB STA (11:14)
[2022-03-17 11:57] LABS: CORONAVIRUS COVID-19 NAA NEGATIVE (NEGATIVE); INFLUENZA A NAA NEGATIVE (NEGATIVE); INFLUENZA B NAA NEGATIVE (NEGATIVE)
[2022-03-17] MEDS ORDERED: methylPREDNISolone Sodium Succinate 40 MG/1 ML SDV IVPUSH ONE (13:27)
[2022-03-17] MEDS ORDERED: Albuterol/Ipratropium 3.0-0.5 MG/3 ML Neb Soln NEB PRN (14:33)
[2022-03-17] MEDS ORDERED: HYDROMORPHONE 4 MG PO PRN (14:52)
[2022-03-17] MEDS ORDERED: Furosemide 40 MG Tab PO PRN (14:52)
[2022-03-17] MEDS ORDERED: HYDROmorphone 2 MG Tab PO PRN (14:52)
[2022-03-17] MEDS ORDERED: Non-Formulary Medication 1 Each (Fentanyl [Fentanyl] 1 EACH Patch.Td72) TOP SCH (15:00)
[2022-03-17] MEDS ORDERED: Apixaban 2.5 MG Tab PO SCH (15:00)
[2022-03-17] MEDS ORDERED: Lidocaine 5% 700 MG Patch TOP SCH (15:00)
[2022-03-17] MEDS ORDERED: Non-Formulary Medication 1 Each (Omeprazole [Omeprazole] 40 MG Capsule.Dr) PO SCH (17:00)
[2022-03-17] MEDS: Gabapentin 800 MG Tab PO SCH (17:33)
[2022-03-17] MEDS ORDERED: fentaNYL 50 MCG/HR Transdermal Patch TOP SCH (18:00)
[2022-03-17] MEDS: Metoprolol Tartrate 25 MG Tab PO SCH (20:22)
[2022-03-17] MEDS: Calcium Carbonate/Vitamin D3 1500 MG-400 Units Tab PO SCH (20:22)
[2022-03-17] MEDS: Cephalexin 500 MG Cap PO SCH (21:14)
[2022-03-17] MEDS: methylPREDNISolone Sodium Succinate 40 MG/1 ML SDV IVPUSH SCH (21:14)
[2022-03-17] MEDS: HYDROmorphone 2 MG Tab PO PRN (21:20)
[2022-03-18] MEDS: Gabapentin 800 MG Tab PO SCH ×4 (01:07→18:20)
[2022-03-18] MEDS: HYDROmorphone 2 MG Tab PO PRN ×3 (05:25→14:41)
[2022-03-18] MEDS: Cephalexin 500 MG Cap PO SCH ×2 (05:25→14:37)
[2022-03-18 06:28] LABS: CARBON DIOXIDE,CO2 41.5 mmol/L (21.0-32.0); POTASSIUM,K 4.4 mmol/L (3.5-5.1)
[2022-03-18] MEDS ORDERED: Omeprazole 20 MG Cap.CR PO SCH (07:30)
[2022-03-18] MEDS ORDERED: predniSONE 20 MG Tab PO SCH (09:00)
[2022-03-18] MEDS ORDERED: Pantoprazole 40 MG Tab.CR PO SCH (09:00)
[2022-03-18] MEDS ORDERED: DULoxetine 30 MG Cap PO SCH (09:00)
[2022-03-18] MEDS ORDERED: Amiodarone 200 MG Tab PO SCH (09:00)
[2022-03-18] MEDS: Metoprolol Tartrate 25 MG Tab PO SCH (09:36)
[2022-03-18] MEDS: methylPREDNISolone Sodium Succinate 40 MG/1 ML SDV IVPUSH SCH (09:36)
[2022-03-18] MEDS: Calcium Carbonate/Vitamin D3 1500 MG-400 Units Tab PO SCH (09:37)
[2022-03-18] MEDS ORDERED: Lidocaine 2% 30 ML, Alum Hydro/Mag Hydro/Simeth XS 30 ML, diphenhydrAMINE 75 MG PO PRN ×3 (10:49)
[2022-03-18] MEDS ORDERED: Lidocaine 2% 30 ML, Alum Hydro/Mag Hydro/Simeth XS 30 ML, diphenhydrAMINE 75 MG PO ONE ×3 (12:30)
[2022-03-18 17:01] VITALS: BP 128/73; PULSE 61
== END 2022-03-18 19:20 | disposition home or self-care (01) ==
LOC: MW.ED 08:06 → MW.MS 13:29
PROVIDERS: ADMIT Student in an Organized Health Care Education/Training Program; ATTEND Student in an Organized Health Care Education/Training Program
DX: J96.21 Acute and chronic respiratory failure with hypoxia (principal); I50.9 Heart failure, unspecified; G47.33 Obstructive sleep apnea (adult) (pediatric); I48.91 Unspecified atrial fibrillation; I13.0 Hypertensive heart and chronic kidney disease with heart failure and stage 1 through stage 4 chronic kidney disease, or unspecified chronic kidney disease; J44.9 Chronic obstructive pulmonary disease, unspecified; I25.2 Old myocardial infarction; I42.9 Cardiomyopathy, unspecified; N40.0 Benign prostatic hyperplasia without lower urinary tract symptoms; M81.0 Age-related osteoporosis without current pathological fracture; M10.9 Gout, unspecified; F41.9 Anxiety disorder, unspecified; N18.30 Chronic kidney disease, stage 3 unspecified; F32.A Depression, unspecified; Z98.890 Other specified postprocedural states; Z88.8 Allergy status to other drugs, medicaments and biological substances; Z79.899 Other long term (current) drug therapy; D64.9 Anemia, unspecified; Z20.822 Contact with and (suspected) exposure to COVID-19
CPT/HCPCS: 0240U; 36415; 36430; 71045; 80053; 82550; 83605; 83735; 83880; 84484; 85025; 85610; 86850; 86900; 86901; 86920; 87040; 93005; 94640; A9270; J2920; P9016; J7620-GY

== ENCOUNTER 2022-04-04 12:56 | Emergency (ER) | payer MEDICARE, OTHER ==
[2022-04-04 15:41] LABS: POTASSIUM,K 5.2 mmol/L (3.5-5.1)
[2022-04-04 17:19] VITALS: PULSE 56
[2022-04-04] MEDS ORDERED: Bacitracin Oint 1 GM U/D Packet TOP ONE (17:19)
[2022-04-04 17:37] VITALS: BP 106/66
== END 2022-04-04 17:42 | disposition left against medical advice (07) ==
LOC: MW.ED 12:56
DX: N17.9 Acute kidney failure, unspecified (principal); I11.0 Hypertensive heart disease with heart failure; I50.9 Heart failure, unspecified; J44.9 Chronic obstructive pulmonary disease, unspecified; Z48.01 Encounter for change or removal of surgical wound dressing; Z88.1 Allergy status to other antibiotic agents; Z88.8 Allergy status to other drugs, medicaments and biological substances; Z79.899 Other long term (current) drug therapy
CPT/HCPCS: 36415; 80048; 83605; 85025; 99283

== ENCOUNTER 2022-05-05 07:23 | Emergency (ER) | payer MEDICARE, OTHER ==
[2022-05-05] MEDS ORDERED: Albuterol/Ipratropium 3.0-0.5 MG/3 ML Neb Soln NEB ONE (07:34)
[2022-05-05] MEDS ORDERED: Albuterol/Ipratropium 3.0-0.5 MG/3 ML Neb Soln ONE (07:50)
[2022-05-05] MEDS ORDERED: methylPREDNISolone Sod Succ 1,000 MG in Sodium Chloride 0.9% 16 ML IV ONE (08:16)
[2022-05-05] MEDS ORDERED: cefTRIAXone 1 GM in Sodium Chloride 0.9% 50 ML IV ONE (08:16)
[2022-05-05] MEDS ORDERED: Azithromycin 500 MG in Sodium Chloride 0.9% 250 ML IV ONE (08:17)
[2022-05-05] MEDS ORDERED: methylPREDNISolone Sodium Succinate 125 MG/2 ML SDV IVPUSH ONE (08:20)
[2022-05-05 08:23] LABS: CORONAVIRUS COVID-19 NAA NEGATIVE (NEGATIVE); INFLUENZA A NAA NEGATIVE (NEGATIVE); INFLUENZA B NAA NEGATIVE (NEGATIVE)
[2022-05-05 08:57] LABS: BLOOD UREA NITROGEN,BUN 57 mg/dL (7.0-18.0); CHLORIDE,CL 95 mmol/L (98-107); GLUCOSE RANDOM 107 mg/dL (74-106); POTASSIUM,K 5.8 mmol/L (3.5-5.1); SODIUM,NA 137 mmol/L (136-148)
[2022-05-05 09:03] LABS: ESTIMATED GFR 37 mL/min (>60)
[2022-05-05 09:54] VITALS: BP 101/64; PULSE 65
== END 2022-05-05 09:55 | disposition home or self-care (01) ==
LOC: MW.ED 07:23
DX: S09.90XA Unspecified injury of head, initial encounter (principal); J18.9 Pneumonia, unspecified organism; I13.0 Hypertensive heart and chronic kidney disease with heart failure and stage 1 through stage 4 chronic kidney disease, or unspecified chronic kidney disease; N18.9 Chronic kidney disease, unspecified; I50.9 Heart failure, unspecified; I48.91 Unspecified atrial fibrillation; I25.2 Old myocardial infarction; J44.9 Chronic obstructive pulmonary disease, unspecified; K21.9 Gastro-esophageal reflux disease without esophagitis; M10.9 Gout, unspecified; Z88.8 Allergy status to other drugs, medicaments and biological substances; Z88.1 Allergy status to other antibiotic agents; Z79.01 Long term (current) use of anticoagulants; Z79.899 Other long term (current) drug therapy; Z20.822 Contact with and (suspected) exposure to COVID-19; W06.XXXA Fall from bed, initial encounter
CPT/HCPCS: 0240U; 36415; 70450; 71045; 72125; 80053; 83735; 83880; 84484; 85025; 86140; 93005; 94640; 96365; 96367; 96375; 99285; J0456; J0696; J2930; J7050; J7620-GY

== ENCOUNTER 2022-05-11 14:21 | Inpatient (IN) | payer MEDICARE, OTHER ==
[2022-05-11 15:30] LABS: CARBON DIOXIDE,CO2 39.3 mmol/L (21.0-32.0); POTASSIUM,K 4.3 mmol/L (3.5-5.1)
[2022-05-11] MEDS ORDERED: Piperacillin/Tazobactam 3.375 GM in Sodium Chloride 0.9% 50 ML IV ONE (16:50)
[2022-05-11] MEDS ORDERED: VANCOmycin 1.25 GM/250 ML 1.25 GM in Premix Bag 1 BAG IV ONE ×2 (17:00→22:15)
[2022-05-11] MEDS ORDERED: Polyethylene Glycol 3350 Powder 17 GM Packet PO PRN (18:00)
[2022-05-11] MEDS ORDERED: Acetaminophen 325 MG Tab PO PRN (18:00)
[2022-05-11] MEDS ORDERED: Ondansetron 4 MG/2 ML SDV IVPUSH PRN (18:00)
[2022-05-11] MEDS: methylPREDNISolone Sodium Succinate 40 MG/1 ML SDV IVPUSH SCH (20:38)
[2022-05-11] MEDS: Calcium Carbonate/Vitamin D3 1500 MG-400 Units Tab PO SCH (20:38)
[2022-05-11] MEDS: Acidophilus with Citrus Pectin/L.acidophilus Tab PO SCH (20:38)
[2022-05-11] MEDS: HYDROmorphone 2 MG Tab PO PRN (20:58)
[2022-05-11] MEDS: Cephalexin 500 MG Cap PO SCH (22:50)
[2022-05-11] MEDS: Piperacillin/Tazobactam 2.25 GM in Sodium Chloride 0.9% 50 ML IV SCH (22:50)
[2022-05-11] MEDS: Gabapentin 800 MG Tab PO SCH (23:00)
[2022-05-12] MEDS: Piperacillin/Tazobactam 2.25 GM in Sodium Chloride 0.9% 50 ML IV SCH ×3 (04:42→17:06)
[2022-05-12] MEDS: HYDROmorphone 2 MG Tab PO PRN ×3 (05:12→18:56)
[2022-05-12] MEDS: Cephalexin 500 MG Cap PO SCH ×3 (05:13→21:14)
[2022-05-12] MEDS: Gabapentin 800 MG Tab PO SCH ×3 (05:13→21:13)
[2022-05-12] MEDS: Omeprazole 20 MG Cap.CR PO SCH ×2 (06:26→06:32)
[2022-05-12 07:48] LABS: CARBON DIOXIDE,CO2 35.8 mmol/L (21.0-32.0); POTASSIUM,K 4.1 mmol/L (3.5-5.1)
[2022-05-12] MEDS ORDERED: Tiotropium Inhaler 18 MCG Inhalation Powder Cap Kit of 5 INH SCH (09:00)
[2022-05-12] MEDS: Calcium Carbonate/Vitamin D3 1500 MG-400 Units Tab PO SCH ×2 (09:04→21:13)
[2022-05-12] MEDS: methylPREDNISolone Sodium Succinate 40 MG/1 ML SDV IVPUSH SCH ×2 (09:04→21:13)
[2022-05-12] MEDS: Amiodarone 200 MG Tab PO SCH (09:05)
[2022-05-12] MEDS: Metoprolol Tartrate 25 MG Tab PO SCH ×2 (09:06→21:26)
[2022-05-12] MEDS: Apixaban 2.5 MG Tab PO SCH ×2 (09:06→21:13)
[2022-05-12] MEDS: Acidophilus with Citrus Pectin/L.acidophilus Tab PO SCH (09:06)
[2022-05-12] MEDS: Albuterol/Ipratropium 3.0-0.5 MG/3 ML Neb Soln NEB PRN ×2 (15:06→18:56)
[2022-05-13] MEDS: Piperacillin/Tazobactam 2.25 GM in Sodium Chloride 0.9% 50 ML IV SCH ×5 (00:05→22:39)
[2022-05-13] MEDS: HYDROmorphone 2 MG Tab PO PRN ×5 (01:21→22:51)
[2022-05-13] MEDS: Gabapentin 800 MG Tab PO SCH ×3 (05:21→22:39)
[2022-05-13] MEDS: Cephalexin 500 MG Cap PO SCH ×3 (05:21→22:39)
[2022-05-13] MEDS: Omeprazole 20 MG Cap.CR PO SCH (07:08)
[2022-05-13 08:07] LABS: CARBON DIOXIDE,CO2 34.8 mmol/L (21.0-32.0); POTASSIUM,K 4.5 mmol/L (3.5-5.1)
[2022-05-13] MEDS: methylPREDNISolone Sodium Succinate 40 MG/1 ML SDV IVPUSH SCH ×2 (08:25→20:10)
[2022-05-13] MEDS: Acidophilus with Citrus Pectin/L.acidophilus Tab PO SCH (08:26)
[2022-05-13] MEDS: Metoprolol Tartrate 25 MG Tab PO SCH ×2 (08:26→20:10)
[2022-05-13] MEDS: Amiodarone 200 MG Tab PO SCH (08:26)
[2022-05-13] MEDS: Calcium Carbonate/Vitamin D3 1500 MG-400 Units Tab PO SCH ×2 (08:26→20:10)
[2022-05-13] MEDS: Apixaban 2.5 MG Tab PO SCH (08:27)
[2022-05-13] MEDS: Benzocaine/Cetylpyridinium/Menthol Lozenge MUCMEM PRN (11:47)
[2022-05-13] MEDS: Azithromycin 500 MG in Sodium Chloride 0.9% 250 ML IV SCH (13:09)
[2022-05-13] MEDS ORDERED: fentaNYL 50 MCG/HR Transdermal Patch TOP SCH (17:00)
[2022-05-14] MEDS: HYDROmorphone 2 MG Tab PO PRN ×4 (02:51→20:15)
[2022-05-14] MEDS: Benzocaine/Cetylpyridinium/Menthol Lozenge MUCMEM PRN ×2 (05:43→12:33)
[2022-05-14] MEDS: Piperacillin/Tazobactam 2.25 GM in Sodium Chloride 0.9% 50 ML IV SCH ×4 (05:43→22:19)
[2022-05-14] MEDS: Gabapentin 800 MG Tab PO SCH ×3 (05:43→22:19)
[2022-05-14] MEDS: Cephalexin 500 MG Cap PO SCH ×3 (05:44→22:19)
[2022-05-14] MEDS ORDERED: fentaNYL 50 MCG/HR Transdermal Patch TOP SCH (06:00)
[2022-05-14] MEDS: Omeprazole 20 MG Cap.CR PO SCH (06:29)
[2022-05-14 07:52] LABS: CARBON DIOXIDE,CO2 35.1 mmol/L (21.0-32.0); POTASSIUM,K 4.7 mmol/L (3.5-5.1)
[2022-05-14] MEDS: Amiodarone 200 MG Tab PO SCH (09:18)
[2022-05-14] MEDS: predniSONE 20 MG Tab PO SCH (09:18)
[2022-05-14] MEDS: Acidophilus with Citrus Pectin/L.acidophilus Tab PO SCH (09:18)
[2022-05-14] MEDS: Metoprolol Tartrate 25 MG Tab PO SCH ×2 (09:19→20:05)
[2022-05-14] MEDS: Calcium Carbonate/Vitamin D3 1500 MG-400 Units Tab PO SCH ×2 (09:19→20:05)
[2022-05-14] MEDS: Azithromycin 500 MG in Sodium Chloride 0.9% 250 ML IV SCH (11:24)
[2022-05-14] MEDS ORDERED: Furosemide 40 MG/4 ML VIAL IVPUSH ONE (12:18)
[2022-05-14] MEDS ORDERED: Furosemide 20 MG/2 ML VIAL IVPUSH ONE ×2 (12:30→19:02)
[2022-05-15] MEDS: Piperacillin/Tazobactam 2.25 GM in Sodium Chloride 0.9% 50 ML IV SCH ×2 (04:11→11:17)
[2022-05-15] MEDS: Omeprazole 20 MG Cap.CR PO SCH (06:31)
[2022-05-15] MEDS: Cephalexin 500 MG Cap PO SCH ×2 (06:31→13:48)
[2022-05-15] MEDS: Gabapentin 800 MG Tab PO SCH ×3 (06:31→22:39)
[2022-05-15 06:43] LABS: CARBON DIOXIDE,CO2 34.8 mmol/L (21.0-32.0); POTASSIUM,K 3.8 mmol/L (3.5-5.1)
[2022-05-15] MEDS: Amiodarone 200 MG Tab PO SCH (09:10)
[2022-05-15] MEDS: Metoprolol Tartrate 25 MG Tab PO SCH ×2 (09:10→22:36)
[2022-05-15] MEDS: predniSONE 20 MG Tab PO SCH (09:10)
[2022-05-15] MEDS: Calcium Carbonate/Vitamin D3 1500 MG-400 Units Tab PO SCH ×2 (09:11→22:39)
[2022-05-15] MEDS: Acidophilus with Citrus Pectin/L.acidophilus Tab PO SCH (09:11)
[2022-05-15] MEDS: HYDROmorphone 2 MG Tab PO PRN ×2 (09:19→16:24)
[2022-05-15] MEDS ORDERED: Furosemide 40 MG Tab PO SCH (11:00)
[2022-05-15] MEDS: Azithromycin 500 MG in Sodium Chloride 0.9% 250 ML IV SCH (12:32)
[2022-05-15] MEDS ORDERED: Furosemide 20 MG/2 ML VIAL IVPUSH ONE (12:40)
[2022-05-15] MEDS ORDERED: REMOVE TRDERM SCH (13:45)
[2022-05-15] MEDS ORDERED: Cephalexin 500 MG Cap PO SCH (14:00)
[2022-05-15] MEDS: Cefdinir 300 MG Cap PO SCH (16:25)
[2022-05-15] MEDS: Albuterol/Ipratropium 3.0-0.5 MG/3 ML Neb Soln NEB PRN (16:27)
[2022-05-15] MEDS: Nystatin Susp 100,000 Unit/ML 5 ML UD Cup PO SCH (18:03)
[2022-05-15] MEDS ORDERED: Furosemide 40 MG/4 ML VIAL IVPUSH ONE (20:00)
[2022-05-16] MEDS: Nystatin Susp 100,000 Unit/ML 5 ML UD Cup PO SCH ×3 (00:50→12:35)
[2022-05-16] MEDS: HYDROmorphone 2 MG Tab PO PRN ×3 (00:53→15:44)
[2022-05-16 06:06] LABS: CARBON DIOXIDE,CO2 39.2 mmol/L (21.0-32.0); POTASSIUM,K 3.7 mmol/L (3.5-5.1)
[2022-05-16] MEDS: Gabapentin 800 MG Tab PO SCH ×2 (06:45→13:37)
[2022-05-16] MEDS: Omeprazole 20 MG Cap.CR PO SCH (06:45)
[2022-05-16] MEDS ORDERED: Azithromycin 250 MG Tab PO SCH (09:00)
[2022-05-16] MEDS: Calcium Carbonate/Vitamin D3 1500 MG-400 Units Tab PO SCH (09:56)
[2022-05-16] MEDS: Metoprolol Tartrate 25 MG Tab PO SCH (09:56)
[2022-05-16] MEDS: predniSONE 20 MG Tab PO SCH (09:56)
[2022-05-16] MEDS: Acidophilus with Citrus Pectin/L.acidophilus Tab PO SCH (09:57)
[2022-05-16] MEDS: Amiodarone 200 MG Tab PO SCH (09:57)
[2022-05-16] MEDS: Cefdinir 300 MG Cap PO SCH (09:57)
[2022-05-16] MEDS ORDERED: Furosemide 40 MG Tab PO SCH (12:15)
[2022-05-16] MEDS: Albuterol/Ipratropium 3.0-0.5 MG/3 ML Neb Soln NEB PRN (13:37)
[2022-05-16 13:40] VITALS: BP 157/58; PULSE 71
[2022-05-18] MEDS ORDERED: Pneumococcal 23-Valent Conjugate Vaccine 0.5 ML Syringe IM ONE (20:47)
== END 2022-05-16 15:40 | disposition home or self-care (01) | DRG 193 ==
LOC: MW.ED 14:21 → MW.MS 16:52
PROVIDERS: ADMIT Student in an Organized Health Care Education/Training Program; ATTEND Student in an Organized Health Care Education/Training Program
PROC: 30233N1 Transfusion of Nonautologous Red Blood Cells into Peripheral Vein, Percutaneous Approach (ICD-10-PCS; principal; 2022-05-11)
DX: J18.9 Pneumonia, unspecified organism (principal); J96.01 Acute respiratory failure with hypoxia; M86.8X8 Other osteomyelitis, other site; I48.19 Other persistent atrial fibrillation; B44.9 Aspergillosis, unspecified; N17.9 Acute kidney failure, unspecified; J96.21 Acute and chronic respiratory failure with hypoxia; J44.0 Chronic obstructive pulmonary disease with (acute) lower respiratory infection; D84.9 Immunodeficiency, unspecified; I42.9 Cardiomyopathy, unspecified; J44.1 Chronic obstructive pulmonary disease with (acute) exacerbation; I13.0 Hypertensive heart and chronic kidney disease with heart failure and stage 1 through stage 4 chronic kidney disease, or unspecified chronic kidney disease; R53.1 Weakness; R74.01 Elevation of levels of liver transaminase levels; Z20.822 Contact with and (suspected) exposure to COVID-19; J44.9 Chronic obstructive pulmonary disease, unspecified; G89.29 Other chronic pain; D64.9 Anemia, unspecified; N18.30 Chronic kidney disease, stage 3 unspecified; R79.89 Other specified abnormal findings of blood chemistry; D63.8 Anemia in other chronic diseases classified elsewhere; N18.31 Chronic kidney disease, stage 3a; Z66 Do not resuscitate; N40.0 Benign prostatic hyperplasia without lower urinary tract symptoms; M54.9 Dorsalgia, unspecified; K57.90 Diverticulosis of intestine, part unspecified, without perforation or abscess without bleeding; I50.9 Heart failure, unspecified; M81.0 Age-related osteoporosis without current pathological fracture; M19.90 Unspecified osteoarthritis, unspecified site; M06.9 Rheumatoid arthritis, unspecified; F41.9 Anxiety disorder, unspecified; M10.9 Gout, unspecified; F32.A Depression, unspecified; Z96.642 Presence of left artificial hip joint; Z96.612 Presence of left artificial shoulder joint; I48.91 Unspecified atrial fibrillation; G30.9 Alzheimer's disease, unspecified; I27.20 Pulmonary hypertension, unspecified; Z79.891 Long term (current) use of opiate analgesic; Z86.19 Personal history of other infectious and parasitic diseases; Z87.39 Personal history of other diseases of the musculoskeletal system and connective tissue; Z86.718 Personal history of other venous thrombosis and embolism; F02.80 Dementia in other diseases classified elsewhere, unspecified severity, without behavioral disturbance, psychotic disturbance, mood disturbance, and anxiety; I25.2 Old myocardial infarction; Z87.442 Personal history of urinary calculi; Z88.8 Allergy status to other drugs, medicaments and biological substances; Z88.1 Allergy status to other antibiotic agents; Z85.820 Personal history of malignant melanoma of skin; Z98.49 Cataract extraction status, unspecified eye; K21.9 Gastro-esophageal reflux disease without esophagitis; Z99.81 Dependence on supplemental oxygen; Z79.01 Long term (current) use of anticoagulants; Z79.899 Other long term (current) drug therapy; Z86.711 Personal history of pulmonary embolism; Z86.73 Personal history of transient ischemic attack (TIA), and cerebral infarction without residual deficits; Z90.5 Acquired absence of kidney
CPT/HCPCS: 36415; 71045; 80053; 83605; 83880; 85025; 87040 ×2; 93005; 99285; U0002; 36430; 76705; 76705-26; 80202; 83735; 85014; 85018; 86850; 86900; 86901; 86920; 94640; 97161-GP; A9270-GY; J0456; J1940; J2543; J2920; J3370; J7050; J7620-GY; P9016

== ENCOUNTER 2022-05-23 15:22 | Emergency (ER) | payer MEDICARE, OTHER ==
[2022-05-23] MEDS ORDERED: Ondansetron 4 MG/2 ML SDV IVPUSH ONE (15:31)
[2022-05-23] MEDS ORDERED: Sodium Chloride 0.9% 1,000 ML IV ONE (15:31)
[2022-05-23 17:01] LABS: CARBON DIOXIDE,CO2 43.1 mmol/L (21.0-32.0); POTASSIUM,K 3.4 mmol/L (3.5-5.1)
[2022-05-23 19:47] VITALS: BP 110/70; PULSE 72
== END 2022-05-23 19:25 | disposition home or self-care (01) ==
LOC: MW.ED 15:22
DX: R11.2 Nausea with vomiting, unspecified (principal); I11.0 Hypertensive heart disease with heart failure; I50.9 Heart failure, unspecified; I25.2 Old myocardial infarction; J44.9 Chronic obstructive pulmonary disease, unspecified; Z88.1 Allergy status to other antibiotic agents; Z79.899 Other long term (current) drug therapy
CPT/HCPCS: 36415; 71045; 80053; 81001; 83690; 85025; 87086; 96361; 96374; 99284; J2405; J7030

== ENCOUNTER 2022-06-08 16:54 | Emergency (ER) | payer MEDICARE, OTHER ==
[2022-06-08] MEDS ORDERED: Lidocaine 1% PF 2 ML SDV INJECT ONE (17:12)
[2022-06-08 17:49] VITALS: BP 108/59; PULSE 74
[2022-06-08] MEDS ORDERED: Hydrocortisone/Neomycin/Polymyxin B Otic Susp 10 ML Bottle EARRT ONE (18:07)
== END 2022-06-08 18:20 | disposition home or self-care (01) ==
LOC: MW.ED 16:54
DX: S81.812A Laceration without foreign body, left lower leg, initial encounter (principal); H60.91 Unspecified otitis externa, right ear; I11.0 Hypertensive heart disease with heart failure; I50.9 Heart failure, unspecified; J44.9 Chronic obstructive pulmonary disease, unspecified; I25.2 Old myocardial infarction; Z79.899 Other long term (current) drug therapy; Z88.1 Allergy status to other antibiotic agents; Z88.8 Allergy status to other drugs, medicaments and biological substances; X58.XXXA Exposure to other specified factors, initial encounter
CPT/HCPCS: 12004; 99282; A9270; J3490

== ENCOUNTER 2022-06-16 11:30 | Emergency (ER) | payer MEDICARE, OTHER ==
[2022-06-16] MEDS ORDERED: Sulfamethoxazole/Trimethoprim 800-160 MG Tab PO ONE (11:53)
[2022-06-16 12:04] VITALS: BP 121/61
[2022-06-16 12:24] VITALS: PULSE 56
== END 2022-06-16 12:24 | disposition home or self-care (01) ==
LOC: MW.ED 11:30
DX: S41.112A Laceration without foreign body of left upper arm, initial encounter (principal); L03.113 Cellulitis of right upper limb; I48.91 Unspecified atrial fibrillation; I13.0 Hypertensive heart and chronic kidney disease with heart failure and stage 1 through stage 4 chronic kidney disease, or unspecified chronic kidney disease; N18.9 Chronic kidney disease, unspecified; I50.9 Heart failure, unspecified; J44.9 Chronic obstructive pulmonary disease, unspecified; K21.9 Gastro-esophageal reflux disease without esophagitis; Z88.1 Allergy status to other antibiotic agents; Z88.8 Allergy status to other drugs, medicaments and biological substances; Z79.899 Other long term (current) drug therapy; Z79.01 Long term (current) use of anticoagulants
CPT/HCPCS: 99283; A9270

== ENCOUNTER 2022-06-19 13:07 | Inpatient (IN) | payer MEDICARE, OTHER ==
[2022-06-19] MEDS ORDERED: Sodium Chloride 0.9% 1,000 ML IV SCH (13:30)
[2022-06-19 13:36] LABS: CARBON DIOXIDE,CO2 43.8 mmol/L (21.0-32.0); POTASSIUM,K 4.5 mmol/L (3.5-5.1)
[2022-06-19] MEDS ORDERED: fentaNYL 50 MCG/ML SDV IVPUSH ONE (16:01)
[2022-06-19] MEDS: cefTRIAXone 1 GM in Sodium Chloride 0.9% 50 ML IV SCH (16:12)
[2022-06-19] MEDS ORDERED: Sodium Chloride 0.9% 500 ML IV ONE (20:00)
[2022-06-19] MEDS ORDERED: Ondansetron 4 MG Tab PO PRN (22:45)
[2022-06-19] MEDS: fentaNYL 50 MCG/HR Transdermal Patch TOP SCH (23:52)
[2022-06-19] MEDS: Gabapentin 800 MG Tab PO SCH (23:54)
[2022-06-19] MEDS: Apixaban 2.5 MG Tab PO SCH (23:55)
[2022-06-20] MEDS: HYDROmorphone 2 MG Tab PO PRN (04:48)
[2022-06-20] MEDS: Omeprazole 20 MG Cap.CR PO SCH (06:46)
[2022-06-20] MEDS: Gabapentin 800 MG Tab PO SCH ×4 (06:46→23:00)
[2022-06-20 07:16] LABS: CARBON DIOXIDE,CO2 40.4 mmol/L (21.0-32.0)
[2022-06-20] MEDS: Doxycycline 100 MG Cap PO SCH ×2 (09:21→20:03)
[2022-06-20] MEDS: Calcium Carbonate/Vitamin D3 1500 MG-400 Units Tab PO SCH ×2 (09:21→23:00)
[2022-06-20] MEDS: predniSONE 20 MG Tab PO SCH (09:22)
[2022-06-20] MEDS: Amiodarone 200 MG Tab PO SCH (09:50)
[2022-06-20] MEDS: Furosemide 40 MG Tab PO SCH ×2 (09:51→20:03)
[2022-06-20] MEDS: Metoprolol Tartrate 25 MG Tab PO SCH ×2 (09:54→20:02)
[2022-06-20] MEDS: Apixaban 2.5 MG Tab PO SCH ×2 (09:55→20:03)
[2022-06-20] MEDS ORDERED: Sodium Chloride 0.9% 500 ML IV STA (10:00)
[2022-06-20] MEDS ORDERED: LORazepam 0.5 MG Tab PO PRN (14:27)
[2022-06-20] MEDS: cefTRIAXone 1 GM in Sodium Chloride 0.9% 50 ML IV SCH (15:40)
[2022-06-20] MEDS ORDERED: cefTRIAXone 1 GM in Sodium Chloride 0.9% 50 ML IV SCH (16:00)
[2022-06-20] MEDS ORDERED: Furosemide 20 MG/2 ML VIAL IVPUSH ONE (17:00)
[2022-06-20] MEDS ORDERED: Sodium Chloride 0.9% 1,000 ML IV ONE (18:35)
[2022-06-20] MEDS ORDERED: Sodium Chloride 0.9% 1,000 ML IV SCH (18:45)
[2022-06-21] MEDS: HYDROmorphone 2 MG Tab PO PRN ×2 (00:42→17:19)
[2022-06-21] MEDS: Albuterol/Ipratropium 3.0-0.5 MG/3 ML Neb Soln NEB PRN (04:06)
[2022-06-21] MEDS: Omeprazole 20 MG Cap.CR PO SCH ×2 (06:04→07:17)
[2022-06-21] MEDS: Gabapentin 800 MG Tab PO SCH ×4 (06:04→23:28)
[2022-06-21] MEDS: Doxycycline 100 MG Cap PO SCH ×2 (08:32→20:00)
[2022-06-21] MEDS: predniSONE 20 MG Tab PO SCH (08:32)
[2022-06-21 08:44] LABS: CARBON DIOXIDE,CO2 35.4 mmol/L (21.0-32.0)
[2022-06-21] MEDS ORDERED: Ondansetron 4 MG/2 ML SDV IVPUSH PRN (09:20)
[2022-06-21] MEDS ORDERED: Sodium Chloride 0.9% 10 ML Syringe FLUSH PRN (09:20)
[2022-06-21] MEDS ORDERED: Sodium Chloride 0.9% 2.5 ML Syringe FLUSH PRN (09:20)
[2022-06-21] MEDS: Furosemide 40 MG Tab PO SCH (09:39)
[2022-06-21] MEDS: Amiodarone 200 MG Tab PO SCH (09:39)
[2022-06-21] MEDS: Apixaban 2.5 MG Tab PO SCH (09:39)
[2022-06-21] MEDS: Metoprolol Tartrate 25 MG Tab PO SCH (09:40)
[2022-06-21] MEDS ORDERED: Morphine 2 MG/ML SYRINGE IVPUSH ONE (10:05)
[2022-06-21] MEDS: Calcium Carbonate/Vitamin D3 1500 MG-400 Units Tab PO SCH (10:54)
[2022-06-21] MEDS ORDERED: Furosemide 40 MG Tab PO PRN (11:39)
[2022-06-21] MEDS ORDERED: Ondansetron 4 MG Tab.DIS PO PRN (11:40)
[2022-06-21] MEDS: Morphine 10 MG/0.5 ML Oral Syringe SL PRN ×6 (14:16→23:23)
[2022-06-22] MEDS: Morphine 10 MG/0.5 ML Oral Syringe SL PRN ×5 (02:36→23:07)
[2022-06-22] MEDS: Calcium Carbonate 500 MG Tab.Chew PO PRN ×2 (04:51→22:15)
[2022-06-22] MEDS: Albuterol/Ipratropium 3.0-0.5 MG/3 ML Neb Soln NEB PRN (04:57)
[2022-06-22] MEDS: Gabapentin 800 MG Tab PO SCH ×4 (05:48→23:07)
[2022-06-22] MEDS: Doxycycline 100 MG Cap PO SCH ×2 (08:12→20:43)
[2022-06-22] MEDS: predniSONE 20 MG Tab PO SCH (08:12)
[2022-06-22] MEDS ORDERED: Omeprazole 20 MG Cap.CR PO SCH (09:00)
[2022-06-22] MEDS: LORazepam ORAL Concentrate 1MG/0.5ML U/D SL PRN (18:10)
[2022-06-22] MEDS: Omeprazole 20 MG Cap.CR PO SCH (23:07)
[2022-06-22] MEDS: fentaNYL 50 MCG/HR Transdermal Patch TOP SCH (23:07)
[2022-06-23] MEDS: Morphine 10 MG/0.5 ML Oral Syringe SL PRN ×8 (02:00→18:09)
[2022-06-23] MEDS: Gabapentin 800 MG Tab PO SCH ×3 (05:49→17:30)
[2022-06-23] MEDS: Omeprazole 20 MG Cap.CR PO SCH ×2 (08:36→17:31)
[2022-06-23] MEDS: Doxycycline 100 MG Cap PO SCH ×2 (08:37→21:18)
[2022-06-23] MEDS: predniSONE 20 MG Tab PO SCH (08:37)
[2022-06-23] MEDS: HYDROmorphone 2 MG Tab PO SCH ×4 (09:25→21:18)
[2022-06-23] MEDS: Albuterol/Ipratropium 3.0-0.5 MG/3 ML Neb Soln NEB PRN (12:55)
[2022-06-23] MEDS ORDERED: Albuterol/Ipratropium 3.0-0.5 MG/3 ML Neb Soln NEB PRN (16:17)
[2022-06-23] MEDS ORDERED: Albuterol 0.083% 2.5 MG/3 ML Neb Soln NEB PRN (16:17)
[2022-06-23] MEDS: LORazepam ORAL Concentrate 1MG/0.5ML U/D SL PRN (18:11)
[2022-06-24] MEDS: Gabapentin 800 MG Tab PO SCH ×2 (00:22→06:00)
[2022-06-24] MEDS: HYDROmorphone 2 MG Tab PO SCH ×6 (00:22→22:41)
[2022-06-24] MEDS: LORazepam ORAL Concentrate 1MG/0.5ML U/D SL PRN ×3 (00:25→13:29)
[2022-06-24] MEDS: Omeprazole 20 MG Cap.CR PO SCH ×3 (06:00→17:56)
[2022-06-24] MEDS: Doxycycline 100 MG Cap PO SCH (10:05)
[2022-06-24] MEDS: predniSONE 20 MG Tab PO SCH (10:05)
[2022-06-24] MEDS: Morphine 10 MG/0.5 ML Oral Syringe SL PRN (12:13)
[2022-06-25 01:27] VITALS: BP 92/54; PULSE 67
[2022-06-25] MEDS: HYDROmorphone 2 MG Tab PO SCH ×2 (01:30→04:03)
== END 2022-06-25 06:30 | disposition expired | DRG 602 ==
LOC: MW.ED 13:07 → MW.MS 15:57
PROVIDERS: ADMIT Hospitalist; ATTEND Hospitalist
PROC: 30233N1 Transfusion of Nonautologous Red Blood Cells into Peripheral Vein, Percutaneous Approach (ICD-10-PCS; principal; 2022-06-21)
DX: L03.113 Cellulitis of right upper limb (principal); J96.90 Respiratory failure, unspecified, unspecified whether with hypoxia or hypercapnia; I42.9 Cardiomyopathy, unspecified; B44.1 Other pulmonary aspergillosis; D84.821 Immunodeficiency due to drugs; Z66 Do not resuscitate; Z51.5 Encounter for palliative care; I13.0 Hypertensive heart and chronic kidney disease with heart failure and stage 1 through stage 4 chronic kidney disease, or unspecified chronic kidney disease; I50.32 Chronic diastolic (congestive) heart failure; D61.818 Other pancytopenia; S51.811A Laceration without foreign body of right forearm, initial encounter; R53.1 Weakness; I95.9 Hypotension, unspecified; K21.9 Gastro-esophageal reflux disease without esophagitis; I48.0 Paroxysmal atrial fibrillation; Z20.822 Contact with and (suspected) exposure to COVID-19; N40.0 Benign prostatic hyperplasia without lower urinary tract symptoms; R79.89 Other specified abnormal findings of blood chemistry; T38.0X5A Adverse effect of glucocorticoids and synthetic analogues, initial encounter; J44.9 Chronic obstructive pulmonary disease, unspecified; N18.30 Chronic kidney disease, stage 3 unspecified; G89.4 Chronic pain syndrome; M15.3 Secondary multiple arthritis; F11.90 Opioid use, unspecified, uncomplicated; I48.91 Unspecified atrial fibrillation; D63.1 Anemia in chronic kidney disease; Z86.19 Personal history of other infectious and parasitic diseases; Z79.52 Long term (current) use of systemic steroids; Z79.01 Long term (current) use of anticoagulants; Z79.899 Other long term (current) drug therapy; Z90.5 Acquired absence of kidney; Z86.718 Personal history of other venous thrombosis and embolism; I25.2 Old myocardial infarction; Z86.73 Personal history of transient ischemic attack (TIA), and cerebral infarction without residual deficits; Z86.711 Personal history of pulmonary embolism; Z90.89 Acquired absence of other organs; W18.30XA Fall on same level, unspecified, initial encounter; Y92.009 Unspecified place in unspecified non-institutional (private) residence as the place of occurrence of the external cause
CPT/HCPCS: 36415; 80048; 83605; 85025; 87040 ×2; 93971; 96361; 99285; J7030; U0002; 36410; 36430; 80202; 86850; 86900; 86901; 86920; 94640; 96365; 96367; 96375; 97161-GP; 97530-GP; A9270-GY; J0696; J2270; J3010; J3370; J3490; J7040; J7050; J7620-GY; P9016